=== PATIENT | male | born 1950 | race Caucasian/White ===

== ENCOUNTER 2022-12-12 14:41 | Outpatient (OUT) | payer MEDICARE, MEDICAID, SELFPAY ==
--- NOTE | 2022-12-12 15:54 | CA_ITS ---
Patient: MARILU TAYLOR Exam Date: 12/12/2022 : 1950 Gender:M Ordering : DR BLAS OSPINA M.D. Admission #: [id number] Family : Order #: [id number] CLICK HERE TO VIEW EXAM ECHOCARDIOGRAM REPORT PROCEDURE: CA ECHO DOPPLER COMPLETE INDICATIONS: CAD, HTN, S/P TAVR (2019) COMPARISON: None. DESCRIPTION: COMPLETE ECHOCARDIOGRAM Real-time transthoracic echocardiography with 2D, M-mode, spectral and color flow Doppler performed. QUALITY: Technical quality was good. LEFT VENTRICLE: Normal chamber size. Borderline left ventricular hypertrophy. Global left ventricular systolic function is normal. LV EF: Calculated left ventricular ejection fraction is 66%. DIASTOLIC: ATRIAL SEPTUM: LEFT ATRIUM: Moderate dilatation. RIGHT ATRIUM: Normal chamber size. RIGHT VENTRICLE: Normal chamber size. Normal right ventricular systolic function. TRICUSPID VALVE: Normal mobility and thickness. No stenosis with trivial regurgitation. Mild pulmonary hypertension. RVSP 36 mmHg MITRAL VALVE: Normal mobility and thickness. No evidence of mitral valve stenosis. There is no mitral annular calcification. Trivial mitral regurgitation. AORTIC VALVE: Bio-Prosthetic valve appears well seated in the aortic position with normal doppler flow. Mean systolic gradient is 8 mmHg. No aortic regurgitation. AORTIC ROOT: Normal diameter and appearance. PULMONIC VALVE: Normal thickness and mobility. Normal with No regurgitation. PERICARDIUM: No evidence of pericardial effusion. IVC: Collapses with inspirations. Normal size. PLEURA: CONCLUSION: 1. Normal ventricular systolic function. LVEF is 65 to 70%. 2. Bioprosthetic valve is well-seated in aortic position with normal Doppler flow. Mean gradient is 8 mmHg. No valvular or paravalvular regurgitation seen. 3. Mildly elevated right-sided pressures. 4. No pericardial effusion. Adult Echocardiography Procedure Report Left Ventricle LVEDD (3.7 - 5.6 cm): 4.78 cm LVESD (2.2 - 4.0 cm): 3.31 cm LVIVS thickness (0.6 - 1.2 cm): 1.14 cm LVPW thickness (0.5 - 1.0 cm): 0.95 cm e': 0.12 m/s E - e': 9.32 LVOT Max Gradient: 3.38 mm[Hg] LVOT Area (cm2): 0.92 m/s Peak Velocity (LVOT): 0.92 m/s Mean Velocity (LVOT): 0.67 m/s LVOT Diameter 2.10 cm Left Ventricular Ejection Fraction: 66.22 % Left Atrium LA Volume Index (2D A2C): 48.82 ml/m2 Left Atrium Systolic Dimension: 4.94 cm Mitral Valve MV E to A Ratio: 0.95 Mitral Valve A-Wave Peak Velocity: 1.20 m/s Mitral Valve E-Wave Peak Velocity: 1.15 m/s Right Ventricle RV Internal Diastolic Dimension: 3.69 cm Aorta AO Root Diam: 2.60 cm Ascending Ao Diam: 3.27 cm Aortic Valve AoV Area (Peak Abiel): 1.57 cm2, 1.57 cm2 AoV Area (VTI): 1.78 cm2, 1.78 cm2 Peak Velocity(Antegrade Flow): 2.03 m/s Peak Gradient(Antegrade Flow): 16.48 mm[Hg] Mean Velocity(Antegrade Flow): 1.32 m/s Mean Gradient(Antegrade Flow): 8.10 mm[Hg] Velocity Time Integral: 45.69 cm Tricuspid Valve Peak Velocity (Regurgitant Flow): 1.92 m/s, 2.86 m/s Pulmonic Valve Mean Gradient: 2.79 mm[Hg] Mean Velocity: 0.78 m/s Peak Velocity: 1.13 m/s, 1.24 m/s Peak Gradient: 5.08 mm[Hg], 6.18 mm[Hg] Right Atrium Right Atrium Systolic Pressure: 41.85 ml, 41.85 ml Dictated by: Blas Ospina M.D. on 12/12/2022 at 16:08 Approved by: Blas Ospina M.D. on 12/12/2022 at 16:10
== END 2022-12-12 14:42 | disposition home or self-care (01) ==
LOC: CARD 14:41
PROVIDERS: PCP Family Medicine; Visit Provider Internal Medicine Interventional Cardiology
DX: I25.118 Atherosclerotic heart disease of native coronary artery with other forms of angina pectoris (principal); I10 Essential (primary) hypertension; I35.0 Nonrheumatic aortic (valve) stenosis
CPT/HCPCS: 93306

== ENCOUNTER 2023-07-30 13:40 | Outpatient (OUT) | payer MEDICARE, MEDICAID, SELFPAY ==
--- NOTE | 2023-07-30 15:42 | CA_ITS ---
[facility] Test Date: 2023-07-30 Pat Name: MARILU TAYLOR Department: Room: - Gender: Male Social Science Analyst: Yessy Pace : 1950 Requested By: KAMILA WILSON Order Number: [id number] Reading MD: GUILLERMINA IVEY Interpretive Statements Monophasic doppler waveforms PVR waveforms w/ blunted right lower extremity waveform. 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 - right PT index is most likely an erroneous result - elevated left thigh index, which is consistent with calcified, noncompressible arterial bacon, which may underestimate the degree or arterial disease present - normal arterial evaluation of the left lower extremity without hemodynamic impairment of the left lower extremity at rest (left AJIT 1.28) - can't exclude small vessel disease of the left foot w/ decreased PT and TBI indices. Electronically Signed On 07-30-2023 22:32:11 EDT by GUILLERMINA IVEY
== END 2023-07-30 13:41 | disposition home or self-care (01) ==
LOC: CARD 13:40
PROVIDERS: PCP Family Medicine
DX: I73.9 Peripheral vascular disease, unspecified (principal)
CPT/HCPCS: 93924

== ENCOUNTER 2023-08-18 07:32 | Outpatient (OUT) | payer MEDICARE, MEDICAID, SELFPAY ==
--- OUTSIDE RECORDS SUMMARY | 2023-08-18 07:38 | XMS_ITS | CCD ---
Author Organization [facility] Care Team Providers Care Aed Trainer Name Role Phone ANA AYALA Admitting Unavailable SELF, REFERRED Referring Unavailable EBHEIMBRADLYIL Surgeon Unavailable ID Procedure Practitioner Unavailab le PITTS, MARY BETH Primary Care Unavailable MICHAEL BIGGS Attending Unavailable SWETHA WINTER Attending Unavailable SWETHA WINTER Admitting Unavailable HONG, MARY BETH Primary Care Unavailable HONG, MARY BETH Referring Unavailable HONG, MARY BETH Primary Care Unavailable HONG, MARY BETH Referring Unavailable KENDAL TORRES Attending Unavailable KENDAL TORRES Admitting Unavailable MASROOR, SANTANA Surgeon Unavailable MASROOR, SANTANA Admitting Unavailable ID Procedure Practitioner Unavailab le PITTS, MARY BETH Referring Unavailable REYNALDO COX Attending Unavailable HONG, MARY BETH Primary Care Unavailable REYNALDO COX Surgeon Unavailable ID Procedure Practitioner Unavailab le UNKNOWN, PROVIDER Surgeon Unavailable ID Procedure Practitioner Unavailab le Pitts , Mary Beth Primary Care Provider Hong DIAZ, Mary Beth Primary Care Provider [phone] Mary Beth Pitts MD Primary Care Provider Hong DIAZ, Mary Beth Primary Care Provider MARY BETH PITTS Primary Care Unavailable MARY BETH PITTS Referring Unavailable BLAS OSPINA Referring Unavailable MARY BETH PITTS Primary Care Unavailable MARY BETH PITTS Primary Care Unavailable ROBERTA VAZQUEZ Admitting Unavailable ROBERTA VAZQUEZ Attending Unavailable MARY BETH PITTS Primary Care Physician Diogenes, Dr. Jc Case Attending Skinny Pitts, Dr. Mary Beth Roman Primary Care Flavia Pitts, Dr. Mary Beth Roman Primary Care Flavia Shetty, Dr. Jc Case Attending Skinny Pitts, Dr. Mary Beth Roman Primary Care Flavia Pitts, Dr. Mary Beth Roman Primary Care MD Mary Beth Rogers Primary Care Provider [phone] MD Madeline Barry Admit Provider MD Neno Moreira Attending Provider YOCASTA Stahl Other Provider Unavailable DO Marlon Shetty Other Provider MD Christel Ramirez Other Provider MD Jc Sorto Other Provider MD Roman Sweeney Other Provider MD Jamari Moraes Other Provider JOSE ENRIQUE Andrews Other Provider MD Page Miller Other Provider MD Luis Key Nabrooke Other Provider MD Eduardo Nguyen Other Provider [facility] Linh Liriano Other Provider MD Debi Goins Other Provider [phone] MD Cristo Rivera Other Provider MD Kendal Moy Other Provider MD Trino Carlton Other Provider MD Mary Jane Morrell Jr Other Provider MD Karla Aranda Other Provider MD Seth Segundo Other Provider [phone] GALEN MEDINA Consulting Unavailable HONG, DR MARY BETH Daley Primary Care Unavailable ASIM, DR MAYFIELD Attending Unavailable ASIM, DR MAYFIELD Admitting Unavailable ASIM, DR MAYFIELD Consulting Unavailable TORITO SHEARER Consulting Unavailable DORCAS PATEL Consulting Unavailable NICOLE, DR LEMONS Admitting Unavailable HONG, DR MARY BETH Daley Primary Care Unavailable NICOLE, DR LEMONS Attending Unavailable NICOLE, DR LEMONS Consulting Unavailable HONG, DR MARY BETH Daley Primary Care Unavailable NICOLE, DR LEMONS Attending Unavailable NICOLE, DR LEMONS Consulting Unavailable NICOLE, DR LEMONS Admitting Unavailable ZACH, DR OLIVIA Frances Consulting Unavailable MD Mary Beth Pitts Primary Care Skinny Villagomez MD, Gerald Pérez Attending Unavailable MD Mary Beth Pitts Primary Care Skinny Villagomez MD, Gerald Pérez Attending Unavailable MD Mary Beth Pitts Consulting MD Mary Beth Hussein Primary Care Unamed Villagomez MD, Gerald Beto Attending Unavailable Hernando DIAZ, Gerald Pérez Attending Unavailable MD Mary Beth Pitts [facility] MD Mary Beth Hussein Consulting Skinny Villagomez MD, Gerald Pérez Attending Unavailable MD Mary Beth Pitts Primary Care MD Mary Beth Hussein Consulting MD Mary Beth Hussein Primary [facility] Skinny Villagomez MD, Gerald Pérez Attending Unavailable Hernando DIAZ, Gerald Pérez Attending Unavailable MD Mary Beth Pitts Primary Care Provider MD Mary Beth Pitts Attending Provider MD Blas Ospina V Other Provider [phone] Blas Ospina V Consulting Unavailable Mary Beth Pitts Admitting Unavailable Mary Beth Pitts Primary Care Unavailable Mary Beth Pitts Attending Unavailable Neno Moreira Attending Unavailable Saima Stahl Consulting Unavailable Mary Beth Pitts Primary Care Unavailable Madeline Barry Admitting Unavailable Marlon Shetty Consulting Unavailable Christel Ramirez Consulting Unavailable Jc Sorto Consulting Unavail able Roman Sweeney Consulting Unavailable Jamari Moraes Consulting Unavailab [facility] Consulting Unavailable Page Miller Consulting Unavailable Luis Key Consulting Unavailab Eduardo Johnson Consulting Unavailable Linh Quintanilla Consulting Unavailable Debi Goins Consulting Unavailable Cristo Rivera Consulting Unavailable Kendal Moy Consulting Unavailable Trino Carlton Consulting Unavailable Mary Jane Morrell Jr Consulting Unavailable Karla Aranda Consulting Unavailable Seth Segundo Consulting Unavailable Mary Beth Pitts Unavailable Mahendra Escalante Unavailable BLAS OSPINA Attending Unavailable BLAS OSPINA Attending Unavailable BLAS OSPINA Attending Unavailable Cristo RIVERA Attending Unavailable Cristo RIVERA Attending Unavailable Cristo RIVERA Attending Unavailable Cristo RIVERA Attending Unavailable Cristo RIVERA Attending Unavailable Lulu Coates Attending Unavailable Cristo RIVERA Attending Unavailable Cristo RIVERA Attending Unavailable KAMILA WILSON Attending Unavailable Allergies Allergy Classification Reported Allergen(s) Allergy Type Date of Onset Reaction(s) Facility Penicillins (antibiotic) (1 source) Penicillins Drug Allergy 10-30-19 15 Shortness Of Breath [facility] (5 sources) Erythromycin; Translations: [ERYTHROMYCIN BASE] Drug Allergy 11-12-19 14 Vomiting [facility] (7 sources) Penicillins; Translations: [PENICILLINS] Drug allergy (disorder) 12-03-19 14 Shortness Of Breath, Swelling [facility] (1 source) Sulfamethoxazole / Trimethoprim Drug Allergy 09-14-19 15 [facility] (1 source) Penicillins Propensity to adverse reactions to drug 10-30-19 15 Shortness Of Breath [facility] (13 sources) Erythromycin; Translations: [ERYTHROMYCIN] Drug Allergy 09-07-19 22 Unknown [facility] (19 sources) Penicillin; Translations: [penicillin] Drug Allergy Tightness in throat (finding), hives, Anaphylaxis (disorder) [facility] (9 sources) Sulfonamides (Antibiotic); Translations: [sulfa drugs] Drug allergy Vomitus (substance) [facility] (3 sources) Sulfonamides (Antibiotic); Translations: [Sulfa (Sulfonamide Antibiotics)] Allergy to substance 03-17-20 Unknown Reaction [facility] (1 source) Sulfonamides (Antibiotic) Drug allergy (disorder) 11-19-19 14 [facility] (1 source) MOST ANTIBIOTICS; Translations: [MOST ANTIBIOTICS] Propensity to adverse reactions to drug (disorder) [facility] (1 source) Erythromycin Drug Allergy 03-17-20 [facility] (1 source) Penicillins Drug allergy (disorder) 03-17-20 [facility] (8 sources) Sulfamethoxazole / Trimethoprim Drug Allergy Unknown [facility] Other (2 sources) Substance with penicillin structure and antibacterial mechanism of action (substance) Drug allergy 03-03-20 15 Unknown [facility] Other (2 sources) ANTIBIOTICS Propensity to adverse reactions 03-03-20 15 Unknown [facility] Other (2 sources) Allergies Reconciled Propensity to adverse reactions Unknown [facility] Other (2 sources) patient allergy list reviewed by nurse or physicia Propensity to adverse reactions 03-03-20 Comment:Done [facility] Other (1 source) levoFLOXacin; Translations: [LEVOFLOXACIN] Drug Allergy 04-14-20 [facility] (1 source) Sulfamethoxazole / Trimethoprim; Translations: [SULFAMETHOXAZOLE-T RIMETHOPRIM] Drug Allergy 04-14-20 [facility] (2 sources) Doxycycline; Translations: [doxycycline] Drug Allergy Blisters beneath skin (disorder) [facility] Rep[facility] Comment on above: Blisters on hands Medications Current Medications Medication Drug Class(es) Dates Sig (Normalized) Sig (Original) Accu-Chek Guide - (3 sources) Start: 11-22-2022 Accu-Chek Guide - 1 strip to check BS once daily for 30 days Nov, Active Accu-Chek Guide Me w/Device (3 sources) Accu-Chek Guide Me w/Device 1 meter to check BS once daily for 365 days Active amLODIPine 10 mg oral tablet (14 sources) Dihydropyridine Calcium Channel Rick Start: 06-05-2022 amLODIPine 10 mg Tab Refills(s) 0 Start Date: 06/05/22 Status: Ordered aspirin 81 mg oral tablet (11 sources) Platelet Aggregation Inhibitor, Nonsteroidal Anti-inflammatory Drug End: 09-06-2021 take 1 tablet by mouth once daily take 1 tablet by mouth every twe nty-four hours calcium chloride 0.0014 meq/ml / potassium chloride 0.004 meq/ml / sodium chloride 0.103 meq/ml / sodium lactate 0.028 meq/ml injectable solution (1 source) Start: 09-19-2021 lactated ringe rs infusion clopidogrel 75 mg oral tablet (8 sources) [id number] Platelet Inhibitor Start: 03-17-2022 take 75 mg by mouth once daily Clopidogrel Active 75 MG PO Daily March 16, 2022 11:00pm Start: 02-27-2022 clopidogrel 75 mg Tab Refills(s) 0 Start Date: 02/27/22 Status: Ordered take 1 tablet by [facility] once daily clopidogrel (PLAVIX) 75 MG tablet Take 75 mg by mouth daily 0 Active donepezil hydrochloride 5 mg oral tablet (10 sources) Start: 03-17-2022 Donepezil Acti ve MG TABLET March 16, 2022 11:00pm take 1 tablet by mouth every twe nty-four hours doxycycline hyclate 100 mg oral capsule (11 sources) Tetracycline-class Drug Start: 11-27-2022 End: 12-27-2022 take 1 capsule by mouth twice daily doxycycline hyclate 100 mg Cap 100 mg = 1 cap(s), Oral, BID, X 30 day(s), # 60 cap(s), Refills(s) 0, Pharmacy: [id number], 166, cm, 11/27/22 9:40:00 EDT, Height/Length Dosing, 71, kg, 11/27/22 9:40:00 EDT, Weight Dosing Start Date: 11/27/22 Stop Date: 12/27/22 Status: Ordered Start: 08-28-2022 take 1 capsule by [facility] every twenty-four hours Doxycycline Monohydrate 100 MG 1 capsule Orally Once a day for 10 days Aug, Active Start: 03-17-2022 End: 03-19-2022 Doxycycline Hyclate Disconti nued MG March 16, 2022 11:00pm March 19, 2022 12:21pm Start: 02-27-2022 End: 03-13-2022 take 1 mg by mouth twice daily doxycycline hyclate 100 mg Cap mg cap(s), Oral, BID, Refills(s) 0 Start Date: 02/27/22 Status: Ordered dutasteride 0.5 mg oral capsule (3 sources) 5-alpha Reductase Inhibitor Start: 11-27-2022 End: 06-19-2024 take 1 capsule by mouth once daily dutasteride 0.5 mg Cap 0.5 mg = 1 cap(s), Oral, Daily, X 30 day(s), # 30 cap(s), Refills(s) 11, Pharmacy: [id number], 166, cm, 06/25/23 8:52:00 EST, Height/Length Dosing, 82, kg, 06/25/23 8:52:00 EST, Weight Dosing Start Date: 06/25/23 Stop Date: 06/19/24 Status: Ordered 24 hr isosorbide mononitrate 30 mg extended release oral tablet (18 sources) Nitrate Vasodilator Start: 02-27-2022 isosorbide mononitrate 30 mg ER Tab Refills(s) 0 Start Date: 02/27/22 Status: Ordered take 1 tablet by vasiliy th every twenty-four hours Isosorbide Mononitrate ER 60 MG 1 tablet in the morning Orally Once a day Active levoFLOXacin 500 mg oral tablet (4 sources) Quinolone Antimicrobial Start: 06-13-2023 End: 06-27-2023 take 1 tablet by mouth every twenty-four hours Levaquin 500 mg Tab 500 mg = 1 tab(s), Oral, q24hr, X 14 day(s), # 14 tab(s), Refills(s) 0, Pharmacy: [id number], 166, cm, 05/28/23 8:49:00 EST, Height/Length Dosing, 71, kg, 05/28/23 8:49:00 EST, Weight Dosing Start Date: 06/13/23 Stop Date: 06/27/23 Status: Ordered Start: 02-26-2023 End: 03-19-2023 take 1 tablet by mouth once daily Levaquin 500 mg Tab 500 mg = 1 tab(s), Oral, Daily, X 3 week(s), # 21 tab(s), Refills(s) 0, Pharmacy: [id number], 166, cm, 02/26/23 9:10:00 EDT, Height/Length Dosing, 71, kg, 02/26/23 9:10:00 EDT, Weight Dosing Start Date: 02/26/23 Stop Date: 03/19/23 Status: Ordered Start: 03-19-2022 take 750 mg by mouth once daily Levofloxacin Active 750 MG PO Daily 11 17March 18, 2022 11:00pm lisinopril 20 mg oral tablet (20 sources) Angiotensin Converting Enzyme Inhibitor Start: 03-17-2022 take 15 mg by mouth once daily Lisinopril Active 15 MG PO Daily March 16, 2022 11:00pm Start: 02-27-2022 lisinopril 20 mg Tab Refills(s) 0 Start Date: 02/27/22 Status: Ordered take 0.5 tablet by [facility] once daily Lisinopril 40 MG 1/2 tablet Orally Once a day Active take 1 tablet by vasiliy every twenty-four hours take 1 tablet by vas[facility] once daily lisinopril (PRINIVIL;ZESTRIL) 2.5 MG tablet Take 2.5 mg by mouth daily 0 Active 24 hr metFORMIN hydrochloride 500 mg extended release oral tablet (20 sources) Biguanide Start: 03-17-2022 take 1000 mg by mouth twice daily Metformin Active 1000 MG PO Twice daily March 16, 2022 11:00pm Start: 02-27-2022 MetFORMIN (Eqv -Glucophage XR) 500 mg oral tablet, extended release Refills(s) 0 Start Date: 02/27/22 Status: Ordered take 2 tablets by mo [facility] twice daily metFORMIN HCl ER 500 MG TAKE 2 TABLETS BY MOUTH 2 TIMES A DAY Active take 1 tablet by vasiliy twice daily at mealtime metFORMIN (GLUCOPHAGE) 500 MG tablet Take 500 mg by mouth 2 times daily (with meals) 0 Active metoprolol tartrate 50 mg oral tablet (20 sources) beta-Adrenergic Rick Start: 03-17-2022 take 25 mg by mouth twice daily Metoprolol Tartrate Active 25 MG PO Twice daily March 16, 2022 11:00pm Start: 02-27-2022 Metoprolol tar trate 50 mg Tab Refills(s) 0 Start Date: 02/27/22 Status: Ordered take 1 tablet by vasiliy every twelve hours Metoprolol Tartrate 50 MG 1 tablet with food Orally Twice a day Active take 1 tablet by vasiliy twice daily metoprolol (TOPROL-XL) 50 MG XL tablet Take 50 mg by mouth 2 times daily 0 Active Nitro Sublingual 0.4 0.4mg (8 sources) Nitro Sublingual 0.4 0.4mg 1 Sublingual Every 5min x3 Active phenylephrine hydrochloride 25 mg/ml ophthalmic solution (1 source) alpha-1 Adrenergic Agonist Start: 09-19-2021 phenylephrine (MYDFRIN) 2.5 % ophthalmic solution 1 drop pregabalin 75 mg oral capsule (8 sources) Start: 10-12-2022 take 1 capsule by mouth twice daily Pregabalin 75 MG TAKE 1 CAPSULE BY MOUTH TWICE DAILY FOR 30 DAYS Oct, Active Start: 09-18-2022 take 1 capsule by [facility] every twelve hours Lyrica 75 MG 1 capsule Orally Twice a day for 30 days September, Active Start: 08-24-2022 take 1 capsule by [facility] every twelve hours Lyrica 50 MG 1 capsule Orally Twice a day for 30 days Aug, Active proparacaine hydrochloride 5 mg/ml ophthalmic solution (1 source) Local Anesthetic Start: 09-19-2021 proparacaine (ALCAINE) 0.5 % ophthalmic solution 1 drop rivaroxaban 20 mg oral tablet (20 sources) Factor Xa Inhibitor Start: 02-27-2022 Xarelto 20 mg oral tablet Refills(s) 0 Start Date: 02/27/22 Status: Ordered Xarelto 20 20 On ce PO Daily Active rivaroxaban (XAR ELTO) 20 MG TABS tablet Take 20 mg by mouth 0 Active simvastatin 40 mg oral tablet (20 sources) HMG-CoA Reductase Inhibitor Start: 02-27-2022 simvastatin 40 mg Ta b Refills(s) 0 Start Date: 02/27/22 Status: Ordered SITagliptin 100 mg oral tablet (4 sources) Dipeptidyl Peptidase 4 Inhibitor Start: 05-28-2023 Januvia 100 mg Tab Refills(s) 0 Start Date: 05/28/23 Status: Ordered Start: 11-28-2022 Januvia 100 mg Tab Refills(s) 0 Start Date: 02/26/23 Status: Ordered 5 ml sodium chloride 9 mg/ml injection (4 sources) Start: 09-19-2021 sodium chlorid e flush 0.9 % injection 5-40 mL Start: 09-19-2021 sodium chlorid e flush 0.9 % injection 5-40 mL Start: 09-19-2021 0.9 % sodium c hloride infusion spironolactone 25 mg oral tablet (10 sources) Aldosterone Antagonist Start: 02-26-2023 spironolactone 25 mg Tab Refills(s) 0 Start Date: 02/26/23 Status: Ordered take 0.5 tablet by m outh once in the morning Spironolactone 25 MG 1/2 tab Orally q am . Active tamsulosin hydrochloride 0.4 mg oral capsule (18 sources) alpha-Adrenergic Rick Start: 03-17-2022 Tamsu losin Active MG PO March 16, 2022 11:00pm Start: 02-27-2022 take 1 capsule by [facility] once daily Flomax 0.4 mg Cap 0.4 mg = 1 cap(s), Oral, Daily, # 30 cap(s), Refills(s) 6, Pharmacy: [id number], 168, cm, 02/27/22 9:27:00 EDT, Height/Length Dosing, 73.8, kg, 02/27/22 9:27:00 EDT, Weight Dosing Start Date: 02/27/22 Status: Ordered tetracaine hydrochloride 5 mg/ml ophthalmic solution (1 source) Zaria Local Anesthetic Start: 09-19-2021 tetraca ine (TETRAVISC) 0.5 % ophthalmic solution 1 drop tropicamide 10 mg/ml ophthalmic solution (1 source) Anticholinergic Start: 09-19-2021 tropicamide (MYDRIACYL) 1 % ophthalmic solution 1 drop Completed/Discontinued Medications Medication Drug Class(es) Dates Sig (Normalized) Sig (Original) ciprofloxacin 500 mg oral tablet (3 sources) Quinolone Antimicrobial Start: 06-05-2022 take 1 tablet by mouth once daily Cipro 500 mg Tab 500 mg = 1 tab(s), Oral, Daily, Take 1 tablet the day before the procedure and 1 tablet after the procedure, # 2 tab(s), Refills(s) 0, Pharmacy: [id number], 168, cm, 06/05/22 9:33:00 EST, Height/Length Dosing, 73, kg, 06/05/22 9:33:00 E... Start Date: 06/05/22 Status: Ordered Problems Active Problems Problem Classification Problem Date Documented Date Episodic/Chronic Acute myocardial infarction (11 sources) Myocardial infarction; Translations: [Non-ST elevation (NSTEMI) myocardial infarction] Onset: 03-17-2022 03-17-2022 Chronic Biliary tract disease (1 source) Calculus of gallbladder without cholecystitis without obstruction; Translations: [CALCU GB W/O CHOLECYST W/O OBST] Onset: 03-08-2022 Episodic Chronic obstructive pulmonary disease and bronchiectasis (2 sources) Chronic obstructive lung disease; Translations: [Chronic obstructive pulmonary disease, unspecified] Onset: 03-03-2015 Chronic Chronic ulcer of skin (6 sources) Ulcer of toe; Translations: [Non-pressure chronic ulcer of other part of right foot limited to breakdown of skin] Chronic Complication of device; implant or graft (2 sources) Arteriosclerosis of coronary artery bypass graft; Translations: [Coronary atherosclerosis of artery bypass graft] Onset: 03-03-2015 Chronic Coronary atherosclerosis and other heart disease (12 sources) Coronary arteriosclerosis; Translations: [Angina pectoris] Onset: 05-11-2017 06-01-2022 Chronic Delirium, dementia, and amnestic and other cognitive disorders (2 sources) Dementia; Translations: [Unspecified dementia without behavioral disturbance] Chronic Diabetes mellitus with complications (20 sources) Hyperglycemia due to type 2 diabetes mellitus; Translations: [Type 2 diabetes mellitus with hyperglycemia] Chronic Diabetes mellitus without complication (10 sources) Diabetes mellitus; Translations: [Type 2 diabetes mellitus without complication] Onset: 03-03-2015 02-27-2022 Chronic Diseases of white blood cells (10 sources) Leukocytosis; Translations: [Elevated white blood cell count, unspecified] Chronic Disorders of lipid metabolism (20 sources) Hyperlipidemia; Translations: [Hyperlipidemia, unspecified] Onset: 12-01-2021 02-27-2022 Chronic Essential hypertension (20 sources) Hypertensive disorder; Translations: [Essential hypertension] Onset: 03-03-2015 02-27-2022 Chronic Fever of unknown origin (3 sources) Fever, unspecified; Translations: [FEVER UNSPECIFIED] Onset: 03-16-2022 Episodic Fracture of lower limb (8 sources) Closed fracture of upper end of tibia; Translations: [Displaced fracture of left tibial spine, initial encounter for closed fracture] Episodic Genitourinary symptoms and ill-defined conditions (1 source) Presence of urogenital implants; Translations: [PRESENCE OF UROGENITAL IMPLANTS] Onset: 03-20-2022 Chronic Genitourinary symptoms and ill-defined conditions (13 sources) Calvin hematuria; Translations: [Blood in urine] Onset: 03-03-2022 02-27-2022 Episodic Headache; including migraine (8 sources) Headache 02-27-2022 Episodic Heart valve disorders (14 sources) Aortic valve disorder; Translations: [Nonrheumatic aortic (valve) stenosis] Onset: 05-11-2017 Chronic Hyperplasia of prostate (14 sources) Benign prostatic hypertrophy with outflow obstruction; Translations: [Benign prostatic hyperplasia with lower urinary tract symptoms] Onset: 02-27-2022 Chronic Inflammatory conditions of male genital organs (2 sources) Chronic prostatitis; Translations: [Chronic prostatitis] Onset: 06-25-2023 Chronic Inflammatory conditions of male genital organs (5 sources) Prostatitis; Translations: [Inflammatory disease of prostate, unspecified] Onset: 11-27-2022 Episodic Other aftercare (1 source) 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; Translations: [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] Onset: 03-20-2022 Episodic Other aftercare (1 source) Other [facility] (current) drug therapy; Translations: [OTH DRAWER HARDWARE WORKER CURRENT DRUG THERAPY] Onset: 03-20-2022 Episodic Other aftercare (1 source) senior care (current) use of oral hypoglycemic drugs; Translations: [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 HARDWARE 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 USE ORAL HYPOGLYCEMIC DX] Onset: 03-20-2022 Episodic Other aftercare (4 sources) Long-term current use of anticoagulant; Translations: [senior care (current) use of 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] Onset: 06-05-2022 Episodic Other and ill-defined heart disease (8 sources) Heart disease 02-27-2022 Chronic Other circulatory disease (2 sources) Low blood pressure; Translations: [Hypotension, unspecified] 03-17-2022 Episodic Other connective tissue disease (1 source) Pain in right lower limb; Translations: [Pain in right leg] Onset: 07-11-2022 Episodic Other connective tissue disease (1 source) Pain in right leg Episodic Other diseases of bladder and urethra (11 sources) Male urethral stricture; Translations: [Unspecified urethral stricture, male, unspecified site] Onset: 03-14-2022 Episodic Other ear and sense organ disorders (8 sources) Hearing loss 02-27-2022 Chronic Other injuries and conditions due to external causes (2 sources) History of fall; Translations: [History of falling] Episodic Other male genital disorders (2 sources) Male erectile dysfunction, unspecified; Translations: [Erectile dysfunction] Onset: 06-25-2023 Chronic Other male genital disorders (1 source) Hydrocele of testis; Translations: [Hydrocele, unspecified] Onset: 06-25-2023 Episodic Other male genital disorders (1 source) Disorder of male genital organ 06-25-2023 Episodic Other non-traumatic joint disorders (1 source) Pain in right hip Episodic Other nutritional; endocrine; and metabolic disorders (12 sources) Body mass index 25-29 - overweight; Translations: [Body mass index (BMI) 28.0-28.9, adult] Onset: 05-11-2017 Episodic Peripheral and visceral atherosclerosis (2 sources) Intermittent claudication; Translations: [Peripheral vascular disease, unspecified] Chronic Residual codes; unclassified (2 sources) Urinary catheter in situ; Translations: [Presence of other specified devices] 03-18-2022 Episodic Unclassified (1 source) CONTACT W/AND (SUSP) EXPOS COVID-19; Translations: [CONTACT W/AND (SUSP) EXPOS COVID-19] Onset: 03-20-2022 Unclassified (6 sources) Drug therapy finding 06-05-2022 Past or Other Problems Problem Classification Problem Date Documented Da te Episodic/Chronic Bacterial infection; unspecified site (4 sources) Bacteremia caused by Gram-negative bacteria; Translations: [Bacteremia] Onset: 03-17-2022 03-18-2022 Episodic Cataract (3 sources) 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; Translations: [Combined forms of age-related cataract, left eye] Onset: 09-18-2021 Resolved: 09-19-2021 Chronic Coronary atherosclerosis and other heart disease (8 sources) H/O cardiac surgery; 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] Onset: 03-17-2022 03-17-2022 Episodic Nonspecific chest pain (2 sources) Chest pain; Translations: [Other chest pain] Onset: 03-03-2016 Episodic Other circulatory disease (2 sources) Hypotension, unspecified; Translations: [Hypotension, unspecified] Onset: 03-17-2022 03-19-2022 Episodic Other skin disorders (2 sources) Localized superficial swelling of skin; Translations: [Localized superficial swelling, mass, or lump] Onset: 06-17-2018 Episodic Phlebitis; thrombophlebitis and thromboembolism (4 sources) Acute deep venous thrombosis of left upper extremity; Translations: [Acute embolism and thrombosis of deep veins of left upper extremity] Onset: 06-17-2018 Episodic Residual codes; unclassified (2 sources) Presence of other specified devices; Translations: [Other postprocedural status] Onset: 03-17-2022 03-19-2022 Episodic Residual codes; unclassified (2 sources) Other specified postprocedural states; Translations: [Personal history of surgery to heart and great vessels, presenting hazards to health] Onset: 03-17-2022 03-19-2022 Episodic Septicemia (except in labor) (5 sources) Sepsis; Translations: [Sepsis, unspecified organism] Onset: 03-17-2022 03-18-2022 Episodic Urinary tract infections (9 sources) Acute urinary tract infection; Translations: [Urinary tract infection, site not specified] Onset: 03-17-2022 03-18-2022 Episodic Results Test Name Value Interpretation Reference Range Facility Ambulatory Visit Summaryon 0 06-25-2023 Ambulatory Visit Summary BRANDON SR MARILU :1950 Visit Date:06/25/2023 Ambulatory Visit Instructions Your Diagnosis Hydrocele ED (erectile dysfunction) Chronic prostatitis BPH with obstruction/lower urinary tract symptoms Urethral stricture in male Anticoagulated Your Care Team Attending Physician - NICOLE DIAZ, Cristo Frances Primary Care Physician - MARY BETH PITTS MD This Is Your Medications List dutasteride (dutasteride 0.5 mg Cap) Contact prescribing physician if questions or concerns amlodipine (amLODIPine 10 mg Tab) isosorbide mononitrate (isosorbide mononitrate 30 mg ER Tab) levofloxacin (Levaquin 500 mg Tab) lisinopril (lisinopril 20 mg Tab) metformin (MetFORMIN (Eqv-Glucophage XR) 500 mg oral tablet, extended release) metoprolol (Metoprolol tartrate 50 mg Tab) rivaroxaban (Xarelto 20 mg oral tablet) simvastatin (simvastatin 40 mg Tab) sitagliptin (Januvia 100 mg Tab) spironolactone (spironolactone 25 mg Tab) tamsulosin (Flomax 0.4 mg Cap) Procedures Performed Cystoscopy (07/18/2022), Cystourethroscopy with dilation of urethral stricture (03/14/2022), AVR - Aortic valve replacement, CABG x 4 - Coronary artery bypass grafts x 4, Cataract. Discharge Vitals Heart Rate (Peripheral) 74 Respiratory Rate 16 Blood Pressure 108/64 Height 166 cm Height 65 in Weight 82 kg Weight 180.4 lb BMI 29.76 What to do next Scheduled Follow-Up Appointments Sunday 8:45 AM EDT With: NICOLE DIAZ, Cristo Frances Where: [facility] Patient Educationon 06-25-19 24 Patient Education Urology Testicular Self-Exam A self-examination of your testicles (testicular self-exam) involves looking at and feeling your testicles for abnormal lumps or swelling. Several things can cause swelling, lumps, or pain in your testicles. Some of these causes are: ? Injuries. ? Inflammation. ? Infection. ? Buildup of fluids around the testicle (hydrocele). ? Twisted testicles (testicular torsion). ? Testicular cancer. You may be at risk for testicular cancer if you have: ? An undescended testicle (cryptorchidism). ? A history of previous testicular cancer. ? A family history of testicular cancer. General tips and recommendations ? The testicles are easiest to examine after a warm bath or shower. They are more difficult to examine when you are cold because the muscles attached to the testicles retract and pull them up higher or into the abdomen. ? A normal testicle is egg-shaped and feels firm. It is smooth and not tender. ? It is normal to feel a firm, spaghetti-like cord at the back of your testicle. This is the spermatic cord. How to do a testicular self-exam 1. Stand and hold your penis away from your body. 2. Look at each testicle to check for changes in appearance, such as swelling or changes in size or shape. 3. Roll each testicle between your thumb and forefinger, feeling the entire testicle. Feel for: ? Lumps. ? Swelling. ? Discomfort. 4. Check the groin area between your abdomen and upper thighs on both sides of your body. Look and feel for any swelling or bumps that are tender. These could be enlarged lymph nodes. Contact a health care provider if: ? You find any bumps or lumps, such as a small, hard, pea-sized lump. ? You find swelling, pain, or soreness. ? You see or feel any other changes in your testicles. Summary ? A self-examination of your testicles (testicular self-exam) involves looking at and feeling your testicles for any changes. ? Check each of your testicles for lumps, swelling, or discomfort. These changes can be caused by many things. ? Check for swelling or tender bumps in your groin area between your lower abdomen and upper thighs. This information is not intended to replace advice given to you by your health care provider. Make sure you discuss any questions you have with your health care provider. Document Revised: 04/05/2020 Document Reviewed: 04/05/2020 [employer] Patient Education ? 2022 [employer] [facility] Urology Office/Clinic Noteon 06-25-2023 Urology Office/Clinic Note Chief Complaint Testicular Pain HPI Staff Here today due to swollen testicles. Pt called 06/12/23 c/o of swollen testicles, R>L. No pain w/ swelling. Pt was schedule for f/u with Lulu Coates NP 06/13/23 but pt cx'd due to fog. PRW recommended pt to start Levaquin 50mmg po qd x14 days. Previous dx: hx of prostatitis, BPH with obstruction/LUTS, urethral stricture, anticoagulated. S/p Cysto/UD 03/14/22. Has 2-3 pills left of Levaquin. *Tamsulosin & Dutasteride therapy (needs refill of Dutasteride) Pt denies having symptoms prior to starting Levaquin. Rt Testicle is still swollen. Noticed while sitting to void. Denies pain to testicle. Denies pain and burning while voiding. Denies all urinary symptoms. History of Present Illness Tests reviewed: reviewed UA I have reviewed the previous health record information and history for this patient from Dr. Rivera. I have reviewed and verified the staff HPI to be accurate for this encounter. Review of Systems PHQ Score Initial Depression Screen Score: 0 SCORE ROS - Provider Constitutional: denies weight loss, denies hot flashes. Eyes: denies eye problems. Gastrointestinal: denies nausea, denies vomiting. Cardiovascular: denies chest pain or angina. Integumentary: no dryness Musculoskeletal: denies musculoskeletal symptoms. ENMT: denies otolaryngeal symptoms. Respiratory: no shortness of breath. Heme/Lymph: denies easy bleeding tendency, denies easy bruising tendency. Psychiatric: no confusion, no anxiety. Genitourinary: See HPI. Physical Exam Vitals & Measurements HR: 74(Peripheral) RR: 16 BP: 108/64 HT: 65 in HT: 166 cm WT: 82 kg WT: 180.4 lb BMI: 29.76 General Appearance: alert, no distress, well nourished, well developed male. Genitourinary: normal scrotum, abnormal testes - bilateral hydroceles R>>L, normal urethra, normal epididymis, normal vas deferens/spermatic cord. Flank Pain: none. Bladder: nonpalpable. Assessment/Plan 1. Hydrocele (N43.3: Hydrocele, unspecified) Pt called 06/12/23 c/o of swollen testicles, R>L. No pain w/ swelling. Pt was started on Levaquin 50mg po qd x14 days on 06/13/23, has 2 days left of abx. Still has swelling of R testicle but denies any pain. UA today negative for blood and infection. Denies having any sxs. PE: bilateral hydroceles, R>>L. Discussed hydrocele options. There is no absolute indication that he needs this repaired. As the fluid collection increases in size and becomes more symptomatic, he may consider repair. This involves a scrotal incision, removing the sac of fluid, and, perhaps, removing part or all of the sac itself. There is a 10-15% chance of recurrence of this scrotal fluid collection, which may require another procedure in the future. 2. ED (erectile dysfunction) (N52.9: Male erectile dysfunction, unspecified) Reports he is not able to achieve a full erection. Admits he does have retrograde ejaculation, advised pt this is a SE of Tamsulosin. Has nitro tablets but has not taken any. Discussed nitro products are contraindicated with ED medications so pt is not a candidate. Discussed alternative option would be CLAUDIA or ICI. Pt prefers to not proceed with treatment at this time. 3. Chronic prostatitis (N41.1: Chronic prostatitis) Was originally tx'd 11/27/22 with doxycycline 100mg bid x1 month but did not complete this course due to breaking out in the sun. Pt was then given Levaquin 500mg qd x3wks starting on 02/26/23. No recurrence of prostate infection since February. 4. BPH with obstruction/lower urinary tract symptoms (N40.1: Benign prostatic hyperplasia with lower urinary tract symptoms) PSA 04/11/17 - 1.78 12/01/21 - 1.23 PVR (cc): 11/27/22 - 16 05/28/23 - 150 06/25/23 - 57 Taking Tamsulosin 0.8mg qAM and Dutasteride 0.5mg qPM. [1] Discussed purpose of Dutasteride is to shrink prostate to help with urinary flow. Reports he has a good stream. States he has to void each time he stands up, q1hr. Feels this is due to increased fluid intake. -Cont Tamsulosin and Dutasteride wo changes 5. Urethral stricture in male (N35.919: Unspecified urethral stricture, male, unspecified site) S/p Cysto/UD done 03/14/22 (dilated to 28 Fr) and 07/18/22 (dilated to 16-30 Fr). [2] 6. 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 Had aortic valve replacement. Elevated risk for periop complications in the future. [3] Follow-up With When Contact Information Cristo RIVERA MD, URL [facility] [address], [place] [address] [phone] Additional Instructions: has f/u scheduled 11/19/23 Patient Education Testicular Self-Exam Opal Null, personally scribed for Dr. Rivera on 06/25/2023 10:02:39. . Documentation recorded by the ayaanibOpal daley, accurately reflects the services(s) I performed and decisions made by me. Authenticated by Dr. Rivera on 06/25/2023 10:05:22. Probl (more content not included)... Normal [facility] Comment on above: Result Comment: Elec tronically Signed By: Cristo RIVERA MD\.br\Date and Time Signed: 06/25/23 10:05 EST\.br\Electronically Co-Signed By: Opal Kessler\.dee\Date and Time Co-Signed: 06/25/23 10:03 EST Office Visiton 06-15-2023 Follow-up visit [id number] Bora Dan 1950 M Date Provider Department Center 06/15/2023 BLAS MCDANIEL RAVI [facility] Family History Problem Relation Age of Onset Diabetes Mother Heart attack Mother Diabetes Father Heart attack Father Breast cancer Sister Colon cancer Brother Cervical cancer Child Family Status - Relation Status Age at Mother Father Sister Brother Child Alive Level of Service:[id number] ID OFFICE/OUTPATIENT ESTABLISHED LOW MDM 20 MIN [facility] Ambulatory Visit Summaryon 0 05-28-2023 Ambulatory Visit Summary MARILU DAN SR :1950 Visit Date:05/28/2023 Ambulatory Visit Instructions Your Diagnosis History of prostatitis BPH with obstruction/lower urinary tract symptoms Urethral stricture in male Anticoagulated Your Care Team Attending Physician - NICOLE DIAZ, Cristo Frances Primary Care Physician - MARY BETH PITTS MD This Is Your Medications List dutasteride (dutasteride 0.5 mg Cap) tamsulosin (Flomax 0.4 mg Cap) Contact prescribing physician if questions or concerns amlodipine (amLODIPine 10 mg Tab) isosorbide mononitrate (isosorbide mononitrate 30 mg ER Tab) lisinopril (lisinopril 20 mg Tab) metformin (MetFORMIN (Eqv-Glucophage XR) 500 mg oral tablet, extended release) metoprolol (Metoprolol tartrate 50 mg Tab) pregabalin (pregabalin 75 mg Cap) rivaroxaban (Xarelto 20 mg oral tablet) rivaroxaban (Xarelto 20 mg oral tablet) simvastatin (simvastatin 40 mg Tab) sitagliptin (Januvia 100 mg Tab) sitagliptin (Januvia 100 mg Tab) spironolactone (spironolactone 25 mg Tab) Procedures Performed Cystoscopy (07/18/2022), Cystourethroscopy with dilation of urethral stricture (03/14/2022), AVR - Aortic valve replacement, CABG x 4 - Coronary artery bypass grafts x 4, Cataract. Discharge Vitals Blood Pressure 118/78 Height 166 cm Height 65 in Weight 71 kg Weight 156.2 lb BMI 25.77 What to do next Scheduled Follow-Up Appointments Sunday 8:45 AM EDT With: NICOLE DIAZ, Cristo Frances Where: [facility] Patient Educationon 05-28-19 24 Patient Education Urology Benign Prostatic Hyperplasia Benign prostatic hyperplasia (BPH) is an enlarged prostate gland that is caused by the normal aging process. The prostate may get bigger as a man gets older. The condition is not caused by cancer. The prostate is a walnut-sized gland that is involved in the production of semen. It is located in front of the rectum and below the bladder. The bladder stores urine. The urethra carries stored urine out of the body. An enlarged prostate can press on the urethra. This can make it harder to pass urine. The buildup of urine in the bladder can cause infection. Back pressure and infection may progress to bladder damage and kidney (renal) failure. What are the causes? This condition is part of the normal aging process. However, not all men develop problems from this condition. If the prostate enlarges away from the urethra, urine flow will not be blocked. If it enlarges toward the urethra and compresses it, there will be problems passing urine. What increases the risk? This condition is more likely to develop in men older than 50 years. What are the signs or symptoms? Symptoms of this condition include: ? Getting up often during the night to urinate. ? Needing to urinate frequently during the day. ? Difficulty starting urine flow. ? Decrease in size and strength of your urine stream. ? Leaking (dribbling) after urinating. ? Inability to pass urine. This needs immediate treatment. ? Inability to completely empty your bladder. ? Pain when you pass urine. This is more common if there is also an infection. ? Urinary tract infection (UTI). How is this diagnosed? This condition is diagnosed based on your medical history, a physical exam, and your symptoms. Tests will also be done, such as: ? A post-void bladder scan. This measures any amount of urine that may remain in your bladder after you finish urinating. ? A digital rectal exam. In a rectal exam, your health care provider checks your prostate by putting a lubricated, gloved finger into your rectum to feel the back of your prostate gland. This exam detects the size of your gland and any abnormal lumps or growths. ? An exam of your urine (urinalysis). ? A prostate specific antigen (PSA) screening. This is a blood test used to screen for prostate cancer. ? An ultrasound. This test uses sound waves to electronically produce a picture of your prostate gland. Your health care provider may refer you to a specialist in kidney and prostate diseases (urologist). How is this treated? Once symptoms begin, your health care provider will monitor your condition (active surveillance or watchful waiting). Treatment for this condition will depend on the severity of your condition. Treatment may include: ? Observation and yearly exams. This may be the only treatment needed if your condition and symptoms are mild. ? Medicines to relieve your symptoms, including: ? Medicines to shrink the prostate. ? Medicines to relax the muscle of the prostate. ? Surgery in severe cases. Surgery may include: ? Prostatectomy. In this procedure, the prostate tissue is removed completely through an open incision or with a laparoscope or robotics. ? Transurethral resection of the prostate (TURP). In this procedure, a tool is inserted through the opening at the tip of the penis (urethra). It is used to cut away tissue of the inner core of the prostate. The pieces are removed through the same opening of the penis. This removes the blockage. ? Transurethral incision (TUIP). In this procedure, small cuts are made in the prostate. This lessens the prostate's pressure on the urethra. ? Transurethral microwave thermotherapy (TUMT). This procedure uses microwaves to create heat. The heat destroys and removes a small amount of prostate tissue. ? Transurethral needle ablation (TUNA). This procedure uses radio frequencies to destroy and remove a small amount of prostate tissue. ? Interstitial laser coagulation (ILC). This procedure uses a laser to destroy and remove a small amount of prostate tissue. ? Transurethral electrovaporization (TUVP). This procedure uses electrodes to destroy and remove a small amount of prostate tissue. ? Prostatic urethral lift. This procedure inserts an implant to push the lobes of the prostate away from the urethra. Follow these instructions at home: ? Take [id number] and prescription medicines only as told by your health care provider. ? Monitor your symptoms for any changes. Contact your health care provider with any changes. ? Avoid drinking large amounts of liquid before going to bed or out in public. ? Avoid or reduce how much caffeine or alcohol you drink. ? Give yourself time when you urinate. ? Keep all follow-up visits. This is important. Contact a health care provider if: ? You have unexplained back pain. ? Your symptoms do not get better with treatment. ? You develop side effects from the medicine (more content not included)... Normal [facility] Urology Office/Clinic Noteon 05-28-2023 Urology Office/Clinic Note Chief Complaint 3 month F/U with PVR HPI Staff 73 yo male here for 3 month f/u w/ PVR. Previous Dx: urethral stricture in male, BPH with obstruction, prostatitis, anticoagulated. S/p Cysto/UD 03/14/22. Taking Tamsulosin 0.8mg qAM and Dutasteride 0.5mg qd.- He is still taken no concerns Tx'd at last OV for prostatitis w/ Levaquin x3wks. did take this no concerns or issues with this PVR 150 Dysuria: _denies Incomplete bladder emptying: denies Hematuria: denies visible blood Frequency: every hour Urgency: denies Nocturia: 2x nightly Stream: denies hesitation, normal stream Leaking: denies Post void dripping: yes Wearing pads/ Depends: denies Urge incontinence: denies Stress incontinence: denies Incontinence without Sensory Awareness: denies Abdominal pain: denies Flank pain: denies Sexual complaints: denies History of Present Illness Tests reviewed: reviewed UA I have reviewed the previous health record information and history for this patient from Dr. Rivera. I have reviewed and verified the staff HPI to be accurate for this encounter. Review of Systems PHQ Score Initial Depression Screen Score: 0 SCORE ROS - Provider Constitutional: denies weight loss, denies hot flashes. Eyes: denies eye problems. Gastrointestinal: denies nausea, denies vomiting. Cardiovascular: denies chest pain or angina. Integumentary: no dryness Musculoskeletal: denies musculoskeletal symptoms. ENMT: denies otolaryngeal symptoms. Respiratory: no shortness of breath. Heme/Lymph: denies easy bleeding tendency, denies easy bruising tendency. Psychiatric: no confusion, no anxiety. Genitourinary: See HPI. Physical Exam Vitals & Measurements BP: 118/78 HT: 65 in HT: 166 cm WT: 71 kg WT: 156.2 lb BMI: 25.77 General Appearance: alert, no distress, well nourished, well developed male. Genitourinary: normal scrotum, normal testes, normal urethra, normal epididymis, normal vas deferens/spermatic cord. Flank Pain: none. Bladder: nonpalpable. Assessment/Plan Pt here today with his . 1. History of prostatitis (Z87.438: Personal history of other diseases of male genital organs) Was originally tx'd 11/27/22 with doxycycline 100mg bid x1 month but did not complete this course due to breaking out in the sun. Pt was then given Levaquin 500mg qd x3wks at last OV 02/26/23. PVR (cc): 11/27/22 - 16 05/28/23 - 150 UA today negative for blood and infection. Denies any pain/burning with urination. Advised pt he did not empty completely today which can contribute to infections. Unsure if he feels he empties. Recommended pt to take time with his voids to ensure he empties completely. -Start double void maneuvers -Cont sx monitoring 2. BPH with obstruction/lower urinary tract symptoms (N40.1: Benign prostatic hyperplasia with lower urinary tract symptoms) PSA 04/11/17 - 1.78 12/01/21 - 1.23. No other PSAs on record. Taking Tamsulosin 0.8mg qAM and Dutasteride 0.5mg qPM. Denies SEs. No longer wetting the bed. States he feels taking Tamsulosin in the mornings vs at night has improved his nocturia. Has a good stream. -Cont Tamsulosin and Dutasteride wo changes 3. Urethral stricture in male (N35.919: Unspecified urethral stricture, male, unspecified site) S/p Cysto/UD done 03/14/22 (dilated to 28 Fr) and 07/18/22 (dilated to 16-30 Fr). Denies straining to urinate. Pt to call when he feels a repeat UD is needed. 4. 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 Had aortic valve replacement. Elevated risk for periop complications in the future. Follow-up With When Contact Information NICOLE DIAZ, GLORIA Gupta In 6 months [facility] [address], [place] [address]- [phone] Additional Instructions: Patient Education Benign Prostatic Hyperplasia I, Opal Kessler, personally scribed for Dr. Rivera on 05/28/2023 09:31:14. . Documentation recorded by the scribe, Opal Kessler, accurately reflects the services(s) I performed and decisions made by me. Authenticated by Dr. Rivera on 05/28/2023 09:34:45. Problem List/Past Medical History Ongoing Anticoagulated BPH with obstruction/lower urinary tract symptoms CAD (coronary artery disease) Diabetes Gross hematuria Hard of hearing Headache Heart disease History of prostatitis Hyperlipidemia Hypertension Myocardial infarction Prostatitis Urethral stricture in male Historical No qualifying data Procedure/Surgical History Cystoscopy (07/18/2022), Cystourethroscopy with dilation of urethral stricture (03/14/2022), AVR - Aortic valve replacement, CABG x 4 - Coronary artery bypass grafts x 4, Cataract. Medications amLODIPine 10 mg Tab dutasteride 0.5 mg Cap, 0.5 mg= 1 cap(s), Oral, Daily, 11 refills Flomax 0.4 mg Cap, 0.4 mg= 1 cap(s), Oral, Daily, 6 refills isosorbide mononitrate 30 mg ER Tab Januvia 100 mg Tab Ja (more content not included)... Normal [facility] Comment on above: Result Comment: Elec tronically Signed By: Cristo RIVERA MD\.br\Date and Time Signed: 05/28/23 09:34 EST\.br\Electronically Co-Signed By: Oapl Kessler\.br\Date and Time Co-Signed: 05/28/23 09:31 EST Ambulatory Visit Summaryon 1 Ambulatory Visit Summary BRANDON STARR MARILU :1950 Visit Date:02/26/2023 Ambulatory Visit Instructions Your Diagnosis Urethral stricture in male BPH with obstruction/lower urinary tract symptoms Prostatitis Anticoagulated Tests Performed Urnls Dip Stick Auto w/o Microscopy POC [id number] Your Care Team Attending Physician - Cristo RIVERA MD Primary Care Physician - MARY BETH PITTS MD This Is Your Medications List dutasteride (dutasteride 0.5 mg Cap) levofloxacin (Levaquin 500 mg Tab) tamsulosin (Flomax 0.4 mg Cap) Contact prescribing physician if questions or concerns amlodipine (amLODIPine 10 mg Tab) isosorbide mononitrate (isosorbide mononitrate 30 mg ER Tab) lisinopril (lisinopril 20 mg Tab) metformin (MetFORMIN (Eqv-Glucophage XR) 500 mg oral tablet, extended release) metoprolol (Metoprolol tartrate 50 mg Tab) pregabalin (pregabalin 75 mg Cap) rivaroxaban (Xarelto 20 mg oral tablet) simvastatin (simvastatin 40 mg Tab) sitagliptin (Januvia 100 mg Tab) spironolactone (spironolactone 25 mg Tab) Procedures Performed Cystoscopy (07/18/2022), Cystourethroscopy with dilation of urethral stricture (03/14/2022), AVR - Aortic valve replacement, CABG x 4 - Coronary artery bypass grafts x 4, Cataract. Discharge Vitals Heart Rate (Peripheral) 69 Respiratory Rate 16 Blood Pressure 118/60 Height 166 cm Height 65 in Weight 71 kg Weight 156.2 lb BMI 25.77 What to do next Scheduled Follow-Up Appointments Sunday 8:45 AM EST With: NICOLE DIAZ, Cristo Frances Where: [facility] Center Patient Educationon 02-27-20 Patient Education Urology Benign Prostatic Hyperplasia Benign prostatic hyperplasia (BPH) is an enlarged prostate gland that is caused by the normal aging process. The prostate may get bigger as a man gets older. The condition is not caused by cancer. The prostate is a walnut-sized gland that is involved in the production of semen. It is located in front of the rectum and below the bladder. The bladder stores urine. The urethra carries stored urine out of the body. An enlarged prostate can press on the urethra. This can make it harder to pass urine. The buildup of urine in the bladder can cause infection. Back pressure and infection may progress to bladder damage and kidney (renal) failure. What are the causes? This condition is part of the normal aging process. However, not all men develop problems from this condition. If the prostate enlarges away from the urethra, urine flow will not be blocked. If it enlarges toward the urethra and compresses it, there will be problems passing urine. What increases the risk? This condition is more likely to develop in men older than 50 years. What are the signs or symptoms? Symptoms of this condition include: ? Getting up often during the night to urinate. ? Needing to urinate frequently during the day. ? Difficulty starting urine flow. ? Decrease in size and strength of your urine stream. ? Leaking (dribbling) after urinating. ? Inability to pass urine. This needs immediate treatment. ? Inability to completely empty your bladder. ? Pain when you pass urine. This is more common if there is also an infection. ? Urinary tract infection (UTI). How is this diagnosed? This condition is diagnosed based on your medical history, a physical exam, and your symptoms. Tests will also be done, such as: ? A post-void bladder scan. This measures any amount of urine that may remain in your bladder after you finish urinating. ? A digital rectal exam. In a rectal exam, your health care provider checks your prostate by putting a lubricated, gloved finger into your rectum to feel the back of your prostate gland. This exam detects the size of your gland and any abnormal lumps or growths. ? An exam of your urine (urinalysis). ? A prostate specific antigen (PSA) screening. This is a blood test used to screen for prostate cancer. ? An ultrasound. This test uses sound waves to electronically produce a picture of your prostate gland. Your health care provider may refer you to a specialist in kidney and prostate diseases (urologist). How is this treated? Once symptoms begin, your health care provider will monitor your condition (active surveillance or watchful waiting). Treatment for this condition will depend on the severity of your condition. Treatment may include: ? Observation and yearly exams. This may be the only treatment needed if your condition and symptoms are mild. ? Medicines to relieve your symptoms, including: ? Medicines to shrink the prostate. ? Medicines to relax the muscle of the prostate. ? Surgery in severe cases. Surgery may include: ? Prostatectomy. In this procedure, the prostate tissue is removed completely through an open incision or with a laparoscope or robotics. ? Transurethral resection of the prostate (TURP). In this procedure, a tool is inserted through the opening at the tip of the penis (urethra). It is used to cut away tissue of the inner core of the prostate. The pieces are removed through the same opening of the penis. This removes the blockage. ? Transurethral incision (TUIP). In this procedure, small cuts are made in the prostate. This lessens the prostate's pressure on the urethra. ? Transurethral microwave thermotherapy (TUMT). This procedure uses microwaves to create heat. The heat destroys and removes a small amount of prostate tissue. ? Transurethral needle ablation (TUNA). This procedure uses radio frequencies to destroy and remove a small amount of prostate tissue. ? Interstitial laser coagulation (ILC). This procedure uses a laser to destroy and remove a small amount of prostate tissue. ? Transurethral electrovaporization (TUVP). This procedure uses electrodes to destroy and remove a small amount of prostate tissue. ? Prostatic urethral lift. This procedure inserts an implant to push the lobes of the prostate away from the urethra. Follow these instructions at home: ? Take [id number]-bszmcrw and prescription medicines only as told by your health care provider. ? Monitor your symptoms for any changes. Contact your health care provider with any changes. ? Avoid drinking large amounts of liquid before going to bed or out in public. ? Avoid or reduce how much caffeine or alcohol you drink. ? Give yourself time when you urinate. ? Keep all follow-up visits. This is important. Contact a health care provider if: ? You have unexplained back pain. ? Your symptoms do not get better with treatment. ? You develop side effects from the medicine (more content not included)... [facility] Urology Office/Clinic Noteon 02-26-2023 Urology Office/Clinic Note Chief Complaint BPH with urinary obstruction/LUTS HPI Staff 72 yo male here for 3 month f/u. Previous Dx: urethral stricture in male, BPH with LUTS, prostatitis, anticoagulated. S/p Cysto 07/18/22 and Cysto/UD 03/14/22. Taking Tamsulosin 0.4mg and dutasteride 0.5mg QD. Dysuria: no Incomplete bladder emptying: unsure Hematuria: no Frequency: yes pt states that every time he stands he has to void Urgency: yes Nocturia: 3-4x Stream: good strong no straining Leaking: no Post void dripping: yes Wearing pads/ Depends: no Urge incontinence: no Stress incontinence: no Incontinence without Sensory Awareness: no Abdominal pain: pain in the left side of abdomen Flank pain: no Sexual complaints: no History of Present Illness Tests reviewed: reviewed UA I have reviewed the previous health record information and history for this patient from . I have reviewed and verified the staff HPI to be accurate for this encounter. There have been no associated fever, chills, flank pain, or blood in the urine. Denies any urinary infections since last encounter. Review of Systems PHQ Score Initial Depression Screen Score: 0 ROS - Provider Constitutional: denies weight loss, denies hot flashes. Eyes: denies eye problems. Gastrointestinal: denies nausea, denies vomiting. Cardiovascular: denies chest pain or angina. Integumentary: no dryness Musculoskeletal: denies musculoskeletal symptoms. ENMT: denies otolaryngeal symptoms. Respiratory: no shortness of breath. Heme/Lymph: denies easy bleeding tendency, denies easy bruising tendency. Psychiatric: no confusion, no anxiety. Genitourinary: See HPI. Physical Exam Vitals & Measurements HR: 69(Peripheral) RR: 16 BP: 118/60 HT: 65 in HT: 166 cm WT: 71 kg WT: 156.2 lb BMI: 25.77 General Appearance: alert, no distress, well nourished, well developed male. Assessment/Plan 1. Urethral stricture in male (N35.919: Unspecified urethral stricture, male, unspecified site) S/p Cysto/UD done 03/14/22 (dilated with 28 Fr) and 07/18/22 (dilated to 16-30 Fr). PVR at prior OV was 16 mL. 2. BPH with obstruction/lower urinary tract symptoms (N40.1: Benign prostatic hyperplasia with lower urinary tract symptoms) PSA 12/01/21 - 1.23 No other PSA on record. Pt to continue taking Tamsulosin 0.4 mg BID and Dutasteride 0.5mg QD. Pt states every time he sits down and stands up he has to void. Pt states that he voids as soon as he wakes up in the morning, has a good, strong stream, takes a while to empty. Advised pt that he may have an infection still. Pt states that he is only taking the Tamsulosin QD, due to the frequency of voiding and he was afraid he was going to wet the bed . Advised pt that he should try to take this BID to see if this helps him void better, or we would need to discuss doing a TURP. states that when he was taking the Tamsulosin BID, he was wetting the bed. Pt states that he would take the Tamsulosin at 6am and 6 pm. Advised pt to try to take he Tamsulosin BID, both tabs in the morning and continue taking the Dutasteride in the evening. Follow up in 3 mos w/PVR. All questions/concerns were discussed. Pt to call the office if he encounters any issues prior. Pt acknowledges understanding. -Continue taking Dutasteride 0.5mg QD and start taking the Tamsulosin 0.4mg 2 capsules at the same time daily. -See #2 3. Prostatitis (N41.9: Inflammatory disease of prostate, unspecified) UA at prior OV showed trace-intact blood, trace protein, positive nitrates, and small leukocytes. Pt was to take Doxycycline 100mg BID x 1 mos. UA today shows trace-intact blood, large leuks, and positive nitrates. Pt states that he never finished the Doxycycline due to having an allergic reaction, broke out when he was in the sun. Advised pt that we will start him on a new abx due to having an infection still. -Will start Levaquin 500mg QD x3 wks. Discussed the medication side effects, and the patient will monitor closely for these, as well as for symptom improvement. If severe side effects occur, the medication should be stopped and the office notified. 4. 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 Follow-up With When Contact Information NICOLE DIAZ, Cristo Frances, GLORIA In 3 months [facility] [address], [place] [address]- Additional Instructions: w/PVR Patient Education Benign Prostatic Hyperplasia I, Kendra Mann , personally scribed for Dr. Rivera on 02/26/2023 10:18:43. . Documentation recorded by the scribe, Kendra Mann, accurately reflects the services(s) I performed and decisions made by me. Problem List/Past Medical History Ongoing Anticoagulated BPH with obstruction/lower urinary tract symptoms CAD (coronary artery disease) Diabetes Gross hematuria Hard of hearing Headache Heart disease Hyperlipidemia Hypertensio (more content not included)... [facility] Comment on above: Result Comment: Elec tronically Signed By: Cristo RIVERA MD\.br\Date and Time Signed: 02/26/23 10:22 EDT\.br\Electronically Co-Signed By: Kendra Mann\.br\Date and Time Co-Signed: 02/26/23 10:19 EDT Office Visiton 12-13-2022 Follow-up visit [id number] Bora Dan 1950 M Date Provider Department Center 12/13/2022 BLAS MCDANIEL RAVI [facility] Family History Problem Relation Age of Onset Diabetes Mother Heart attack Mother Diabetes Father Heart attack Father Breast cancer Sister Colon cancer Brother Cervical cancer Child Family Status - Relation Status Age at Mother Father Sister Brother Child Alive Level of Service:[id number] ID OFFICE/OUTPATIENT ESTABLISHED MOD MDM 30-39 MIN [facility] Patient Educationon 11-28-19 Patient Education Urology Benign Prostatic Hyperplasia Benign prostatic hyperplasia (BPH) is an enlarged prostate gland that is caused by the normal aging process. The prostate may get bigger as a man gets older. The condition is not caused by cancer. The prostate is a walnut-sized gland that is involved in the production of semen. It is located in front of the rectum and below the bladder. The bladder stores urine. The urethra carries stored urine out of the body. An enlarged prostate can press on the urethra. This can make it harder to pass urine. The buildup of urine in the bladder can cause infection. Back pressure and infection may progress to bladder damage and kidney (renal) failure. What are the causes? This condition is part of the normal aging process. However, not all men develop problems from this condition. If the prostate enlarges away from the urethra, urine flow will not be blocked. If it enlarges toward the urethra and compresses it, there will be problems passing urine. What increases the risk? This condition is more likely to develop in men older than 50 years. What are the signs or symptoms? Symptoms of this condition include: ? Getting up often during the night to urinate. ? Needing to urinate frequently during the day. ? Difficulty starting urine flow. ? Decrease in size and strength of your urine stream. ? Leaking (dribbling) after urinating. ? Inability to pass urine. This needs immediate treatment. ? Inability to completely empty your bladder. ? Pain when you pass urine. This is more common if there is also an infection. ? Urinary tract infection (UTI). How is this diagnosed? This condition is diagnosed based on your medical history, a physical exam, and your symptoms. Tests will also be done, such as: ? A post-void bladder scan. This measures any amount of urine that may remain in your bladder after you finish urinating. ? A digital rectal exam. In a rectal exam, your health care provider checks your prostate by putting a lubricated, gloved finger into your rectum to feel the back of your prostate gland. This exam detects the size of your gland and any abnormal lumps or growths. ? An exam of your urine (urinalysis). ? A prostate specific antigen (PSA) screening. This is a blood test used to screen for prostate cancer. ? An ultrasound. This test uses sound waves to electronically produce a picture of your prostate gland. Your health care provider may refer you to a specialist in kidney and prostate diseases (urologist). How is this treated? Once symptoms begin, your health care provider will monitor your condition (active surveillance or watchful waiting). Treatment for this condition will depend on the severity of your condition. Treatment may include: ? Observation and yearly exams. This may be the only treatment needed if your condition and symptoms are mild. ? Medicines to relieve your symptoms, including: ? Medicines to shrink the prostate. ? Medicines to relax the muscle of the prostate. ? Surgery in severe cases. Surgery may include: ? Prostatectomy. In this procedure, the prostate tissue is removed completely through an open incision or with a laparoscope or robotics. ? Transurethral resection of the prostate (TURP). In this procedure, a tool is inserted through the opening at the tip of the penis (urethra). It is used to cut away tissue of the inner core of the prostate. The pieces are removed through the same opening of the penis. This removes the blockage. ? Transurethral incision (TUIP). In this procedure, small cuts are made in the prostate. This lessens the prostate's pressure on the urethra. ? Transurethral microwave thermotherapy (TUMT). This procedure uses microwaves to create heat. The heat destroys and removes a small amount of prostate tissue. ? Transurethral needle ablation (TUNA). This procedure uses radio frequencies to destroy and remove a small amount of prostate tissue. ? Interstitial laser coagulation (ILC). This procedure uses a laser to destroy and remove a small amount of prostate tissue. ? Transurethral electrovaporization (TUVP). This procedure uses electrodes to destroy and remove a small amount of prostate tissue. ? Prostatic urethral lift. This procedure inserts an implant to push the lobes of the prostate away from the urethra. Follow these instructions at home: ? Take ubmd-baa-jaixjds and prescription medicines only as told by your health care provider. ? Monitor your symptoms for any changes. Contact your health care provider with any changes. ? Avoid drinking large amounts of liquid before going to bed or out in public. ? Avoid or reduce how much caffeine or alcohol you drink. ? Give yourself time when you urinate. ? Keep all follow-up visits. This is important. Contact a health care provider if: ? You have unexplained back pain. ? Your symptoms do not get better with treatment. ? You develop side effects from the medicine (more content not included)... [facility] Urology Office/Clinic Noteon 11-27-2022 Urology Office/Clinic Note HPI Staff 5 month f/u. Previous dx of urethral stricture, BPH with obstruction/LUTS and anticoagulated. PVR today was 16ml. UA shows positive nitrates and small leukocytes. Pt states that he is voiding fine as long as he drinks water but states that most days he is too busy doing things outside to drink. He is up 3-4x a night to void. Tamsulosin 0.4mg therapy BID. Dysuria: no Incomplete bladder emptying: PVR today is 16ml. Hematuria: no Frequency: pt states that when he goes from sitting to standing he has to try to void Urgency: yes Nocturia: 3-4x Stream: states that he has a good stream but only gets a little out at a time Leaking: no Post void dripping: yes Wearing pads/ Depends: no Urge incontinence: no Stress incontinence: no Incontinence without Sensory Awareness: no Abdominal pain: no Flank pain: no Sexual complaints: no History of Present Illness Tests reviewed: reviewed UA, PVR I have reviewed the previous health record information and history for this patient from Dr. Rivera. I have reviewed and verified the staff HPI to be accurate for this encounter. There have been no associated fever, chills, flank pain, or blood in the urine. Denies any urinary infections since last encounter. Review of Systems PHQ Score Initial Depression Screen Score: 0 ROS - Provider Constitutional: denies weight loss, denies hot flashes. Eyes: denies eye problems. Gastrointestinal: denies nausea, denies vomiting. Cardiovascular: denies chest pain or angina. Integumentary: no dryness Musculoskeletal: denies musculoskeletal symptoms. ENMT: denies otolaryngeal symptoms. Respiratory: no shortness of breath. Heme/Lymph: denies easy bleeding tendency, denies easy bruising tendency. Psychiatric: no confusion, no anxiety. Genitourinary: See HPI. Physical Exam Vitals & Measurements HR: 64(Peripheral) RR: 16 BP: 89/51 HT: 65 in HT: 166 cm WT: 71 kg WT: 156.2 lb BMI: 25.77 General Appearance: alert, no distress, well nourished, well developed male. Genitourinary: normal scrotum, normal testes, normal urethra, normal epididymis, normal vas deferens/spermatic cord. Flank Pain: none. Bladder: nonpalpable. Assessment/Plan 1. Urethral stricture in male (N35.919: Unspecified urethral stricture, male, unspecified site) S/p Cysto/UD done 03/14/22 (dilated with 28 Fr) and 07/18/22 (dilated to 16-30 Fr). PVR today 16 mL. 2. BPH with obstruction/lower urinary tract symptoms (N40.1: Benign prostatic hyperplasia with lower urinary tract symptoms) PSA 12/01/21 - 1.23 No other PSA on record. Pt states every time he sits down and stands up he has to void. Pt to continue taking Tamsulosin 0.4 mg BID. Will add Dutasteride 0.5mg QD. Discussed the medication side effects, and the patient will monitor closely for these, as well as for symptom improvement. If severe side effects occur, the medication should be stopped and the office notified. 3. Prostatitis (N41.9: Inflammatory disease of prostate, unspecified) UA today shows trace-intact blood, trace protein, positive nitrates, and small leukocytes. Recommended pt to increase fluid intake to eight 16oz bottles a day; preferably water, clear pop, and sugar free lemonade. Pt to start taking Doxycycline 100mg BID for a month. Discussed the medication side effects, and the patient will monitor closely for these, as well as for symptom improvement. If severe side effects occur, the medication should be stopped and the office notified. Follow up in 3 months or sooner if needed. All questions/concerns were discussed. Pt to call the office if he encounters any issues prior. Pt acknowledges understanding. 4. 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 Follow-up With When Contact Information Cristo RIVERA MD, URL [facility] [address], [place] [address]- [phone] Additional Instructions: 3 mos Patient Education Benign Prostatic Hyperplasia I, Opal Kessler, personally scribed for Dr. Rivera on 11/27/2022 10:20:34. . Documentation recorded by the scribe, Opal Kessler, accurately reflects the services(s) I performed and decisions made by me. Authenticated by Dr. Rivera on 11/27/2022 10:22:41. Problem List/Past Medical History Ongoing Anticoagulated BPH with obstruction/lower urinary tract symptoms CAD (coronary artery disease) Diabetes Gross hematuria Hard of hearing Headache Heart disease Hyperlipidemia Hypertension Myocardial infarction Prostatitis Urethral stricture in male Historical No qualifying data Procedure/Surgical History Cystoscopy (07/18/2022), Cystourethroscopy with dilation of urethral stricture (03/14/2022), AVR - Aortic valve replacement, CABG x 4 - Coronary artery bypass grafts x 4, Cataract. Medications amLODIPine 10 mg Tab Flomax 0.4 mg Cap, 0.4 mg= 1 cap(s), Oral, Daily, 6 refills isosorbide mononitra (more content not included)... [facility] Comment on above: Result Comment: Elec tronically Signed By: Cristo RIVERA MD\.br\Date and Time Signed: 11/27/22 10:22 EDT\.br\Electronically Co-Signed By: Opal Kessler\.br\Date and Time Co-Signed: 11/27/22 10:20 EDT Consent for Procedure/Surger yon 07-20-2022 Consent for Procedure/Surgery [id number]:1 27 [facility] Patient Educationon 07-19-19 23 Patient Education Urology Urethral Stricture Urethral stricture is narrowing of the tube (urethra) that carries urine from the bladder out of the body. The urethra can become narrow due to scar tissue from an injury or infection. This can make it difficult to pass urine. In women, the urethra opens above the vaginal opening. In men, the urethra opens at the tip of the penis, and the urethra is much longer than it is in women. Because of the length of the male urethra, urethral stricture is much more common in men. This condition is treated with surgery. What are the causes? In both men and women, common causes of urethral stricture include: ? Urinary tract infection (UTI). ? Sexually transmitted infection (STI). ? Use of a tube placed into the urethra to drain urine from the bladder (urinary catheter). ? Urinary tract surgery. In men, common causes of urethral stricture include: ? A severe injury to the pelvis. ? Prostate surgery. ? Injury to the penis. In many cases, the cause of urethral stricture is not known. What increases the risk? You are more likely to develop this condition if you: ? Are male. Men who have had prostate surgery are at risk of developing this condition. ? Use a urinary catheter. ? Have had urinary tract surgery. What are the signs or symptoms? The main symptom of this condition is difficulty passing urine. This may cause decreased urine flow, dribbling, or spraying of urine. Other symptom of this condition may include: ? Frequent UTIs. ? Blood in the urine. ? Pain when urinating. ? Swelling of the penis in men. ? Inability to pass urine (urinary obstruction). How is this diagnosed? This condition may be diagnosed based on: ? Your medical history and a physical exam. ? Urine tests to check for infection or bleeding. ? X-rays. ? Ultrasound. ? Retrograde urethrogram. This is a type of test in which dye is injected into the urethra and then an X-ray is taken. ? Urethroscopy. This is when a thin tube with a light and camera on the end (urethroscope) is used to look at the urethra. How is this treated? This condition is treated with surgery. The type of surgery that you have depends on the severity of your condition. You may have: ? Urethral dilation. In this procedure, the narrow part of the urethra is stretched open (dilated) with dilating instruments or a small balloon. ? Urethrotomy. In this procedure, a urethroscope is placed into the urethra, and the narrow part of the urethra is cut open with a surgical blade inserted through the urethroscope. ? Open surgery. In this procedure, an incision is made in the urethra, the narrow part is removed, and the urethra is reconstructed. Follow these instructions at home: ? Take lbbn-tky-eqgweok and prescription medicines only as told by your health care provider. ? If you were prescribed an antibiotic medicine, take it as told by your health care provider. Do not stop taking the antibiotic even if you start to feel better. ? Drink enough fluid to keep your urine pale yellow. ? Keep all follow-up visits as told by your health care provider. This is important. Contact a health care provider if: ? You have signs of a urinary tract infection, such as: ? Frequent urination or passing small amounts of urine frequently. ? Needing to urinate urgently. ? Pain or burning with urination. ? Urine that smells bad or unusual. ? Cloudy urine. ? Pain in the lower abdomen or back. ? Trouble urinating. ? Blood in the urine. ? Vomiting or being less hungry than normal. ? Diarrhea or abdominal pain. ? Vaginal discharge, if you are female. ? Your symptoms are getting worse instead of better. Get help right away if: ? You cannot pass urine. ? You have a fever. ? You have swelling, bruising, or discoloration of your genital area. This includes the penis, scrotum, and inner thighs for men, and the outer genital organs (vulva) and inner thighs for women. ? You develop swelling in your legs. ? You have difficulty breathing. Summary ? Urethral stricture is narrowing of the tube (urethra) that carries urine from the bladder out of the body. The urethra can become narrow due to scar tissue from an injury or infection. ? This condition can make it difficult to pass urine. ? This condition is treated with surgery. The type of surgery that you have depends on the severity of your condition. ? Contact a health care provider if your symptoms get worse or you have signs of a urinary tract infection. This information is not intended to replace advice given to you by your health care provider. Make sure you discuss any questions you have with your health care provider. Document Released: 05/26/2016 Document Revised: 12/11/2018 Document Reviewed: 12/11/2018 [id number] [employer] Patient Education ? 2019 [employer]ok [employer] [facility] U[facility] Office/Clinic Noteon 07-18-2022 Urology Office/Clinic Note HPI Staff Marilu is IO for a Cysto/UD. ABX taken. History of Present Illness Tests reviewed: none. I have reviewed the previous health record information and history for this patient from Dr. Rivera. I have reviewed and verified the staff HPI to be accurate for this encounter. There have been no associated fever, chills, flank pain, or blood in the urine. Denies any urinary infections since last encounter. Review of Systems PHQ Score Initial Depression Screen Score: 0 ROS - Provider Constitutional: denies weight loss, denies hot flashes. Eyes: denies eye problems. Gastrointestinal: denies nausea, denies vomiting. Cardiovascular: denies chest pain or angina. Integumentary: no dryness Musculoskeletal: denies musculoskeletal symptoms. ENMT: denies otolaryngeal symptoms. Respiratory: no shortness of breath. Heme/Lymph: denies easy bleeding tendency, denies easy bruising tendency. Psychiatric: no confusion, no anxiety. Genitourinary: See HPI. Physical Exam Vitals & Measurements HR: 66(Peripheral) BP: 138/58 HT: 65 in HT: 166 cm WT: 73 kg WT: 160.6 lb BMI: 26.49 General Appearance: alert, no distress, well nourished, well developed male. Genitourinary: normal scrotum, normal testes, normal urethra, normal epididymis, normal vas deferens/spermatic cord. Flank Pain: none. Bladder: nonpalpable. Procedure Operative Information Anesthesia Type: Local Procedure: Local Cystoscopy with Urethral Dilation Complications: None Surgical risks, benefits, details of the procedure have been explained to the patient. Full informed consent has been obtained. Intraoperative Information Prepped: Patient is brought back to the endoscopy suite. Patient is placed in supine position. Patient prepped in the usual fashion with Betadine solution. 2% Xylocaine Jelly is placed per Urethra. After waiting several minutes, the Cystoscope is introduced. The Urethra is: Tight.sequential strictures along penile urethra and at bulb. The Prostatic Urethra is: _Bilobar obstruction. The Bladder: _ No tumors or stones. Trabeculated: Severe (3) with open diverticuli. The Ureteral orifices: Show efflux of clear urine The Urethra was dilated to: 16-30_ Mauritian with sounds. Specimens Removed: None Removal: Cystoscope is removed. The patient tolerated it well. Postoperative Information Patient is discharged home with antibiotic coverage. Follow up arranged. Assessment/Plan 1. Urethral stricture in male (N35.919: Unspecified urethral stricture, male, unspecified site) S/p cysto/UD done 03/14/22 for BPH, gross hematuria, and urethral stricture: 3 penile strictures, dilated with 28 Fr. C&S done 04/29/22 was negative. Pt had IO cysto/UD today without complications. Pt took prophylactic abx prior to procedure. Follow up Sunday for cath removal or sooner if needed. Pt understands and agrees with plan. 2. BPH with obstruction/lower urinary tract symptoms (N40.1: Benign prostatic hyperplasia with lower urinary tract symptoms) PSA 1.23 done 11/2021, none prior in our records. Pt taking Flomax 0.4 mg QD. 3. Anticoagulated (Z79.01: senior care (current) use of 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) Xarelto. Follow-up With When Contact Information NICOLE DIAZ, Cristo Frances, URL [facility] [address], [place] [address]- Additional Instructions: sunday cath change Patient Education Urethral Stricture IMichelle, personally scribed for Dr. Rivera on 07/18/2022 13:39:46. . Documentation recorded by the scribe, Michelle Watson, accurately reflects the services(s) I performed and decisions made by me. Authenticated by Dr. Rivera on 07/18/2022 13:41:13. Problem List/Past Medical History Ongoing Anticoagulated BPH with obstruction/lower urinary tract symptoms CAD (coronary artery disease) Diabetes Gross hematuria Hard of hearing Headache Heart disease Hyperlipidemia Hypertension Myocardial infarction Urethral stricture in male Historical No qualifying data Procedure/Surgical History Cystoscopy (07/18/2022), Cystourethroscopy with dilation of urethral stricture (03/14/2022), AVR - Aortic valve replacement, CABG x 4 - Coronary artery bypass grafts x 4, Cataract. Medications amLODIPine 10 mg Tab Cipro 500 mg Tab, 500 mg= 1 tab(s), Oral, Daily Flomax 0.4 mg Cap, 0.4 mg= 1 cap(s), Oral, Daily, 6 refills isosorbide mononitrate 30 mg ER Tab lisinopril 20 mg Tab MetFORMIN (Eqv-Glucophage XR) 500 mg oral tablet, extended release Metoprolol tartrate 50 mg Tab simvastatin 40 mg Tab Xarelto 20 mg oral tablet Allergies penicillin (Throat tightness, [id number]) sulfa drugs (Vomit) Social History Tobacco Former smoker, quit more than 30 days ago Tobacco Use:. Never Smokeless Tobacco Use:. Cigarettes, Started age 17.0 Years. Stopped age 48 Years., 06/05/2022 Family History Diabetes: Mother. Heart disease: Mother and Father. Immunizations (more content not included)... Normal [facility] Comment on above: Result Comment: Elec tronically Signed By: Cristo RIVERA MD\.br\Date and Time Signed: 07/18/22 13:41 EST\.br\Electronically Co-Signed By: Michelle Watson\.br\Date and Time Co-Signed: 07/18/22 13:40 EST Redraw Potassiumon 3 Potassium [Moles/Vol] 5.2 mmol/L High 3.5-5.[address] [facility] Comment on above: Result Comment: PERF ORMED BY: [place] [address] PATHOLOGIST [employer]IC[employer] HYACINTH SHAH M.D. Performed By: #### R JOCELYNN Kraus #### [address] US venous duplex LE RTon US venous duplex LE RT [facility] [place] [address] [place] [address] Ultrasound Report Signed Patient: Marilu Dan MR#: [id number] : 1950 Acct:[id number] Age/Sex: 72 / M ADM Date: 07/11/22 Loc: Room: Type: [facility] Attending Dr: Mary Beth Pitts MD Ordering Provider: Mary Beth Pitts MD Date of Service: 07/11/22 US/US venous duplex LE RT: M79.604 Copies to: Mary Beth Pitts MD RIGHT LOWER EXTREMITY VENOUS DUPLEX INDICATION: Right leg edema, pain and tenderness Unilateral right lower extremity venous duplex Doppler study was obtained utilizing B-mode, color- flow and spectral Doppler. FINDINGS: The right common femoral, femoral, and popliteal veins showed adequate compressibility, color-flow and augmentation. The right posterior tibial and peroneal veins were compressible, as well as proximal greater saphenous vein. The contralateral left common femoral vein was compressible with color-flow and augmentation. US/US venous duplex LE RT IMPRESSION: NO EVIDENCE OF DEEP VENOUS THROMBOSIS IN THE RIGHT LOWER EXTREMITY. NO SUPERFICIAL THROMBOPHLEBITIS WAS NOTED. Impression dictated by: Mahendra Escalante MD07/12/2022 4:46 PM Dictation Location: [place] [address] Tech: Genesis Wooten Transcribed By: ABIMBOLA 07/12/221645 Dictated By: Mahendra Escalante MD 07/12/221645 Signed By: 07/12/22 164 Normal [facility] Basic Metabolic Panelon 06-15 Anion gap [Moles/Vol] Not performed Normal 6.0-15.0 [facility] Comment on above: Performed By: #### C UU #### [facility] [address] [place] [address] Calcium [Mass/Vol] 9.2 mg/dL Normal 8.2-10.2 [facility] Comment on above: Result Comment: PERF ORMED BY: [place] [address] PATHOLOGIST [employer] HYACINTH SHAH M.D. Performed By: #### C UU #### [facility] [address] Chloride [Moles/Vol] 102 mmol/L Normal 95-114 [facility] Comment on above: Performed By: #### C UU #### [facility] [address] CO2 [Moles/Vol] 22.4 mmol/L Normal 22.0-30.0 [facility] Comment on above: Performed By: #### C UU #### [facility] [address] Creatinine [Mass/Vol] 0.97 mg/dL Normal 0.64-1.[address] [facility] Comment on above: Performed By: #### C UU #### [address] Estimated GFR ( Lilia > 60 Normal [facility] Comment on above: Result Comment: GFR estimated reference range: According to KDOQI guidelines, <60 ml/min/1.73m2 is sufficient to diagnose a patient with chronic kidney disease. Performed By: #### C UU #### [address] Estimated GFR (Non- Am > 60 Normal [facility] Comment on above: Performed By: #### C UU #### [address] Glucose [Mass/Vol] 197 mg/dL High 70-100 [facility] Comment on above: Result Comment: [place] Glucose Reference Range is dependent on time and content of last meal. Glucose of more than 200 mg/dL in a nonstressed, ambulatory subject supports the diagnosis of Diabetes Mellitus. ADA recommended reference range Performed By: #### C UU #### [address] Potassium Normal 3.5-5.1 [facility] Comment on above: Result Comment: Spec imen hemolyzed, redraw requested Performed By: #### C UU #### [address] Sodium [Moles/Vol] 131 mmol/L Low 136-146 [facility] Comment on above: Performed By: #### C UU #### [place] [address] [place] Urea nitrogen [Mass/Vol] 20 mg/dL Normal 9-23 [facility] Comment on above: Performed By: #### C UU #### [facility] [address] Calcium [Mass/volume] in Ser um or PlasmaOrdered By: Blas Ospina on 07-11-2022 Calcium [Mass/Vol] 9.2 mg/dL 8.2-10.2 [facility] Carbon dioxide, total [Moles /volume] in Serum or PlasmaOrdered By: Blas Ospina on 07-11-2022 CO2 [Moles/Vol] 22.4 mmol/L 22.0-30.0 [facility] Chloride [Moles/volume] in S quinten or PlasmaOrdered By: Blas Ospina on 07-11-2022 Chloride [Moles/Vol] 102 mmol/L 95-114 [facility] Creatinine and Glomerular fi ltration rate.predicted panel (S/P/Bld)Ordered By: Blas Ospina on 07-11-2022 Creatinine [Mass/Vol] 0.97 mg/dL 0.64-1.[address] [facility] Estimated glomerular filtrat ion rate (GFR) non- AmericanOrdered By: Blas Ospina on 07-11-2022 GFR/1.73 sq M.predicted among non-blacks MDRD (S/P/Bld) [Vol rate/Area] > 60 mL/Min [facility] Glucose [Mass/volume] in Ser um or PlasmaOrdered By: Blas Ospina on 07-11-2022 Glucose [Mass/Vol] 197 mg/dL 70-100 [facility] Comment on above: ADA recommended refe rence rangeRandom Glucose Reference Range is dependent on time and content of last meal. Glucose of more than 200 mg/dL in a nonstressed, ambulatory subject supports the diagnosis of Diabetes Mellitus. No Panel InformationOrdered By: Blas Ospina on 07-11-2022 Estimated GFR () > 60 mL/Min [facility] Comment on above: GFR estimated refere nce range: According to KDOQI guidelines, <60 ml/min/1.73m2 is sufficient to diagnose a patient with chronic kidney disease. Pharmacy Creatinine Clearance (Chem N/A [facility] Potassium [Moles/volume] in Serum or PlasmaOrdered By: Blas Ospina on 07-11-2022 Potassium [Moles/Vol] See comment 3.5-5.1 [facility] Comment on above: Specimen hemolyzed, redraw requested Serum or plasma anion gap de terminationOrdered By: Blas Ospina on 07-11-2022 Anion gap [Moles/Vol] TNP [facility] Comment on above: Test not performed Sodium [Moles/volume] in Ser um or PlasmaOrdered By: Blas Ospina on 07-11-2022 Sodium [Moles/Vol] 131 mmol/L 136-146 [facility] Urea nitrogen [Mass/volume] in Serum or PlasmaOrdered By: Blas Ospina on 07-11-2022 Urea nitrogen [Mass/Vol] 20 mg/dL 9-23 [facility] XR hip RT min 2V(w/wo pelvis )*on 07-11-2022 XR hip RT min 2V(w/wo pelvis)* [facility] [employer] Other XR hip RT min 2V(w/wo pelvis)* [facility] San[employer] Other XR hip RT min 2V(w/wo pelvis)* [address] [place] [address] San[employer] Other XR hip RT min 2V(w/wo pelvis)* [place] [address] [employer] Other XR hip RT min 2V(w/wo pelvis)* XRay Report [employer] Other XR hip RT min 2V(w/wo pelvis)* Signed [employer] Other XR hip RT min 2V(w/wo pelvis)* Patient: Marilu Dan MR#: [id number] [employer] Other XR hip RT min 2V(w/wo pelvis)* 019 [employer] Other XR hip RT min 2V(w/wo pelvis)* : 1950 Acct:[id number] [employer] Other XR hip RT min 2V(w/wo pelvis)* Age/Sex: 72 / M ADM Date: 07/11/22 [facility] Other XR hip RT min 2V(w/wo pelvis)* Loc: Room: Type: REG CLI [employer] Other XR hip RT min 2V(w/wo pelvis)* Attending Dr: Mary Beth Pitts MD [employer] Other XR hip RT min 2V(w/wo pelvis)* Copies to: Mary Beth Pitts MD [employer] Other XR hip RT min 2V(w/wo pelvis)* Ordering Provider: Mary Beth Pitts MD [employer] Other XR hip RT min 2V(w/wo pelvis)* Date of Service: 07/11/22 [facility] Other XR hip RT min 2V(w/wo pelvis)* XR/XR hip RT min 2V(w/wo pelvis)*: M25.551 [employer] Other XR hip RT min 2V(w/wo pelvis)* RIGHT HIP - 2 views: [facility] Other XR hip RT min 2V(w/wo pelvis)* CLINICAL HISTORY: Chronic right hip pain for one year. [employer] Other XR hip RT min 2V(w/wo pelvis)* COMPARISON: None [facility] Other XR hip RT min 2V(w/wo pelvis)* FINDINGS: Mild degenerative changes of the right hip without acute bony process. Additional [facility] Other XR hip RT min 2V(w/wo pelvis)* degenerative changes are seen involving the SI joints and visualized lower lumbar spine. Vascular [employer] Other XR hip RT min 2V(w/wo pelvis)* calcifications. [facility] Other XR hip RT min 2V(w/wo pelvis)* XR/XR hip RT min 2V(w/wo pelvis)* [facility] Other XR hip RT min 2V(w/wo pelvis)* IMPRESSION: Sanitors Other XR hip RT min 2V(w/wo pelvis)* MILD DEGENERATIVE CHANGES OF THE RIGHT HIP WITHOUT ACUTE BONY PROCESS.. [facility] Other XR hip RT min 2V(w/wo pelvis)* Impression dictated by: Griffin Thibodeaux Jr., TonyOBrook07/11/2022 11:33 AM [facility] Other XR hip RT min 2V(w/wo pelvis)* Dictation Location: [place] [address] [employer] Other XR hip RT min 2V(w/wo pelvis)* Transcribed By: PWS 07/11/22 [facility] San[employer] Other XR hip RT min 2V(w/wo pelvis)* Dictated By: Griffin Thibodeaux Jr, DO 07/11/22 [facility] [employer] Other XR hip RT min 2V(w/wo pelvis)* Signed By: San[employer] Other XR hip RT min 2V(w/wo pelvis)* 07/11/22 [facility] [employer] Other XR hip RT min 2V(w/wo pelvis)* [facility] [place] [address] [place] [address] XRay Report Signed Patient: Marilu Dan MR#: [id number] 019 : 1950 Acct:[id number] Age/Sex: 72 / M ADM Date: 07/11/22 Loc: Room: Type: [facility] CLI Attending Dr: Mary Beth Pitts MD Copies to: Mary Beth Pitts MD Ordering Provider: Mary Beth Pitts MD Date of Service: 07/11/22 XR/XR hip RT min 2V(w/wo pelvis)*: M25.551 RIGHT HIP - 2 views: CLINICAL HISTORY: Chronic right hip pain for one year. COMPARISON: None FINDINGS: Mild degenerative changes of the right hip without acute bony process. Additional degenerative changes are seen involving the SI joints and visualized lower lumbar spine. Vascular calcifications. XR/XR hip RT min 2V(w/wo pelvis)* IMPRESSION: MILD DEGENERATIVE CHANGES OF THE RIGHT HIP WITHOUT ACUTE BONY PROCESS.. Impression dictated by: Griffin Thibodeaux Jr., D.O.07/11/2022 11:33 AM Dictation Location: [place] [address] Transcribed By: [facility] 07/11/22 1133 Dictated By: Griffin Thibodeaux Jr, DO 07/11/22 113 Signed By: 07/11/22 1133 [facility] 36on 07-05-2022 36 Patient called to shay steiner aware of blood pressures: 139/65 this morning 108/50 11:30am today 141/73 yesterday morning 87/50 11:30am yesterday - wasn't lightheaded I told him I'd let you know and if you wanted to make any changes I'd call him. Normal [facility] Office Visiton 06-19-2022 Follow-up visit [id number] Bora Dan gissel 1950 M Date Provider Department Center 06/19/2022 BLAS MCDANIEL [facility] Family History Problem Relation Age of Onset Diabetes Mother Heart attack Mother Diabetes Father Heart attack Father Breast cancer Sister Colon cancer Brother Cervical cancer Child Family Status - Relation Status Age at Mother Father Sister Brother Child Alive Level of Service:[id number] ID OFFICE/OUTPATIENT ESTABLISHED MOD MDM 30-39 MIN Reason for Visit and Comments: Hypertension [699420] Valve Disorder [3372] Normal [facility] CULTURE URINEon 04-29-2022 CULTURE URINE Culture Observations : NO GROWTH. Normal [facility] Comment on above: Performed By: #### S EDR #### [facility] [address] [place] [address] [address] Julius Greer Basic Metabolic Panelon 11-0 Anion gap [Moles/Vol] 9.6 mmol/L Normal 6.0-15.[address] [facility] Comment on above: Performed By: #### B MP #### [facility] [address] Calcium [Mass/Vol] 8.2 mg/dL Normal 8.2-10.2 [facility] Comment on above: Performed By: #### B MP #### [facility] [address] Chloride [Moles/Vol] 104 mmol/L Normal 95-114 [facility] Comment on above: Performed By: #### B MP #### [address] CO2 [Moles/Vol] 27.1 mmol/L Normal 22.0-30.0 [facility] Comment on above: Performed By: #### B MP #### [address] Creatinine [Mass/Vol] 0.75 mg/dL Normal 0.64-1.[address] [facility] Comment on above: Performed By: #### B MP #### [place] [address] [place] Creatinine Clr Calc Pharmacy 85.68 Normal [facility] Comment on above: Result Comment: PERF ORMED BY: [place] [address] PATHOLOGIST SERV[employer] HYACINTH SHAH M.D. Performed By: #### B MP #### [address] Estimated GFR ( Lilia > 60 Normal [facility] Comment on above: Result Comment: GFR estimated reference range: According to KDOQI guidelines, <60 ml/min/1.73m2 is sufficient to diagnose a patient with chronic kidney disease. Performed By: #### B MP #### [place] [address] [place] Estimated GFR (Non- Am > 60 Normal [facility] Comment on above: Performed By: #### B MP #### [facility] [address] Glucose [Mass/Vol] 203 mg/dL High 70-100 [facility] Comment on above: Result Comment: [place] Glucose Reference Range is dependent on time and content of last meal. Glucose of more than 200 mg/dL in a nonstressed, ambulatory subject supports the diagnosis of Diabetes Mellitus. ADA recommended reference range Performed By: #### B MP #### [facility] [address] Potassium [Moles/Vol] 3.7 mmol/L Normal 3.5-5.[address] [facility] Comment on above: Performed By: #### B MP #### [facility] [address] Sodium [Moles/Vol] 137 mmol/L Normal 136-146 [facility] Comment on above: Performed By: #### B MP #### [facility] [address] Urea nitrogen [Mass/Vol] 11 mg/dL Normal 9-23 [facility] Comment on above: Performed By: #### B MP #### [facility] [address] Basophils Auto (Bld) [#/Vol] Ordered By: Neno Mccarthyr on 03-19-2022 Basophils (Bld) [#/Vol] 0.0 10*3/uL 0.0-0.2 [facility] Basophils/100 WBC Auto (Bld) Ordered By: Obsarabjitdarobin Coronadoomar on 03-19-2022 Basophils/100 WBC (Bld) 0.2 % . [facility] CULTURE BLOODon 03-19-2022 Microscopic examination of blood, culture Culture Observations: Both aerobic and anaerobic bottles positive. BCID- Proteus mirabilis Culture Observations: BCID called to Omaira Ingram RN at 1000 on 03/17/22 by NS Isolate 1 Proteus mirabilis Growth of ORGANISM 1 Proteus mirabilis ANTIBIOTIC M.I.C RX STATUS Ampicillin <=2 S F Ampicillin/Sulbactam <=2 S F Piperacillin/Tazobactam <=4 S F Cefazolin <=4 S F Ceftazidime <=1 S F Ceftriaxone <=1 S F Ertapenem <=0.5 S F Imipenem 2 S F Amikacin <=2 S F Gentamicin <=1 S F Tobramycin <=1 S F Ciprofloxacin <=0.25 S F Levofloxacin <=0.12 S F Trimethoprim/Sulfamethoxa zole <=[address] [facility] Comment on above: Performed By: #### S EDR #### [facility] [address] [place] [address] Dr. Julius Greer Microscopic examination of blood, culture Culture Observations: Aerobic and anaerobic bottles positive. BCID- Proteus mirabilis Culture Observations: BCID called to Omaira Ingram RN at 1000 on 03/17/22 by NS Isolate 1 Proteus mirabilis Growth of ORGANISM 1 Proteus mirabilis ANTIBIOTIC M.I.C RX STATUS Ampicillin <=2 S F Ampicillin/Sulbactam <=2 S F Piperacillin/Tazobactam <=4 S F Cefazolin <=4 S F Ceftazidime <=1 S F Ceftriaxone <=1 S F Ertapenem <=0.5 S F Imipenem 2 S F Amikacin <=2 S F Gentamicin <=1 S F Tobramycin <=1 S F Ciprofloxacin <=0.25 S F Levofloxacin <=0.12 S F Trimethoprim/Sulfamethoxa zole <=[address] [facility] Comment on above: Performed By: #### B LDCX2 #### [facility] [address] [place] [address] Dr. Julius Greer CULTURE URINEon 03-19-2022 CULTURE URINE Isolate 1 Proteus mirabilis >100,000 cfu/ml of ORGANISM 1 Proteus mirabilis ANTIBIOTIC M.I.C RX STATUS Ampicillin <=2 S F Ampicillin/Sulbactam <=2 S F Piperacillin/Tazobactam <=4 S F Cefazolin <=4 S F Ceftazidime <=1 S F Ceftriaxone <=1 S F Ertapenem <=0.5 S F Imipenem 2 S F Amikacin <=2 S F Gentamicin <=1 S F Tobramycin <=1 S F Ciprofloxacin <=0.25 S F Levofloxacin <=0.12 S F Nitrofurantoin 128 R F Trimethoprim/Sulfamethoxa zole <=20 S F Normal [facility] Comment on above: Performed By: #### S EDR #### [facility] [address] [place] [address] [address] Julius Greer Complete Blood Count Auto Di ffon 03-19-2022 Basophils (Bld) [#/Vol] 0.0 10*3/uL Normal 0.0-0.2 [facility] Comment on above: Result Comment: PERF ORMED BY: [place] [address] PATHOLOGIST [employer] HYACINTH SHAH M.D. Performed By: #### B MP, MG, LIPID, A1C WTH eA, CBC #### [address] Basophils/100 WBC (Bld) 0.2 % Normal . [facility] Comment on above: Performed By: #### B MP, MG, LIPID, A1C WTH eA, CBC #### [facility] [address] [place] [address] Eosinophils (Bld) [#/Vol] 0.0 10*3/uL Normal 0.0-0.45 [facility] Comment on above: Performed By: #### B MP, MG, LIPID, A1C WTH eA, CBC #### [address] Eosinophils/100 WBC (Bld) 1.0 % Normal . [facility] Comment on above: Performed By: #### B MP, MG, LIPID, A1C WTH eA, CBC #### [address] Erythrocyte distribution width (RBC) [Ratio] 12.8 % Normal 12.0-14.8 [facility] Comment on above: Performed By: #### B MP, MG, LIPID, A1C WTH eA, CBC #### [address] Hematocrit (Bld) [Volume fraction] 35.5 % Low 38.8-50.0 [facility] Comment on above: Performed By: #### B MP, MG, LIPID, A1C WTH eA, CBC #### [address] Hemoglobin (Bld) [Mass/Vol] 12.0 g/dL Low 13.0-17.0 [facility] Comment on above: Performed By: #### B MP, MG, LIPID, A1C WTH eA, CBC #### [address] Lymphocytes (Bld) [#/Vol] 1.0 10*3/uL Normal 1.00-4.8 [facility] Comment on above: Performed By: #### B MP, MG, LIPID, A1C WTH eA, CBC #### [address] Lymphocytes/100 WBC (Bld) 20.4 % Normal . [facility] Comment on above: Performed By: #### B MP, MG, LIPID, A1C WTH eA, CBC #### [address] MCH (RBC) [Entitic mass] 29.9 pg Normal 27.5-35.2 [facility] Comment on above: Performed By: #### B MP, MG, LIPID, A1C WTH eA, CBC #### [address] MCV (RBC) [Entitic vol] 88.3 fL Normal 83.5-101 [facility] Comment on above: Performed By: #### B MP, MG, LIPID, A1C WTH eA, CBC #### [address] Mean Corpuscular HGB Conc 33.9 g/dL Normal 32.5-35.6 [facility] Comment on above: Performed By: #### B MP, MG, LIPID, A1C WTH eA, CBC #### [address] [place] [address] [place] Monocytes (Bld) [#/Vol] 0.6 10*3/uL Normal 0.0-0.8 [facility] Comment on above: Performed By: #### B MP, MG, LIPID, A1C WTH eA, CBC #### [address] Monocytes/100 WBC (Bld) 12.2 % Normal . [facility] Comment on above: Performed By: #### B MP, MG, LIPID, A1C WTH eA, CBC #### [address] Neutrophils (Bld) [#/Vol] 3.3 10*3/uL Normal 1.8-7.7 [facility] Comment on above: Performed By: #### B MP, MG, LIPID, A1C WTH eA, CBC #### [address] Neutrophils/100 WBC (Bld) 66.2 % Normal . [facility] Comment on above: Performed By: #### B MP, MG, LIPID, A1C WTH eA, CBC #### [address] Nucleated RBC/100 WBC (Bld) [Ratio] 0.1 % Normal 0-0.5 [facility] Comment on above: Performed By: #### B MP, MG, LIPID, A1C WTH eA, CBC #### [place] [address] [place] Platelet mean volume (Bld) [Entitic vol] 8.3 fL Normal 6.6-10.1 [facility] Comment on above: Performed By: #### B MP, MG, LIPID, A1C WTH eA, CBC #### [place] [address] [place] Platelets (Bld) [#/Vol] 134 10*3/uL Low 150-450 [facility] Comment on above: Performed By: #### B MP, MG, LIPID, A1C WTH eA, CBC #### [address] RBC (Bld) [#/Vol] 4.02 10*6/uL Normal 3.90-5.60 [facility] Comment on above: Performed By: #### B MP, MG, LIPID, A1C WTH eA, CBC #### [facility] [address] [place] [address] [place] WBC (Bld) [#/Vol] 4.9 10*3/uL Normal 4.5-11.0 [facility] Comment on above: Performed By: #### B MP, MG, LIPID, A1C WT eA, CBC #### [facility] [address] Creatinine and Glomerular fi ltration rate.predicted panel (S/P/Bld)Ordered By: Neno Moreira on 03-19-2022 Creatinine [Mass/Vol] 0.75 mg/dL 0.64-1.[address] [facility] Eosinophils Auto (Bld) [#/Vo l]Ordered By: Neno Coronadoomar on 03-19-2022 Eosinophils (Bld) [#/Vol] 0.0 10*3/uL 0.0-0.45 [facility] Eosinophils/100 WBC Auto (Bl d)Ordered By: Obsarabjitdarobin Coronadoomar on 03-19-2022 Eosinophils/100 WBC (Bld) 1.0 % . [facility] Erythrocyte distribution wid th Auto (RBC) [Ratio]Ordered By: Neno Moreira on 03-19-2022 Erythrocyte distribution width (RBC) [Ratio] 12.8 % 12.0-14.8 [facility] Estimated glomerular filtrat ion rate (GFR) non- AmericanOrdered By: Diyadarobin Mccarthyr on 03-19-2022 GFR/1.73 sq M.predicted among non-blacks MDRD (S/P/Bld) [Vol rate/Area] > 60 mL/Min [facility] Glucose Glucometer (BldC) [M ass/Vol]Ordered By: Neno Moreira on 03-19-2022 Glucose [Mass/Vol] 295 mg/dL [facility] Comment on above: Random Glucose Refer ence Range is dependent on time and content of last meal. Glucose of more than 200 mg/dL in a nonstressed, ambulatory subject supports the diagnosis of Diabetes Mellitus. Glucose Poct Glucometerson 1 05-19-2021 Glucose [Mass/Vol] 295 mg/dL Normal [facility] Comment on above: Result Comment: [place] om Glucose Reference Range is dependent on time and content of last meal. Glucose of more than 200 mg/dL in a nonstressed, ambulatory subject supports the diagnosis of Diabetes Mellitus. PERFORMED BY: [place] [address] PATHOLOGIST [employer] HYACINTH SHAH M.D. Performed By: #### C UU #### [address] Glucose [Mass/Vol] 184 mg/dL Normal [facility] Comment on above: Result Comment: [place] om Glucose Reference Range is dependent on time and content of last meal. Glucose of more than 200 mg/dL in a nonstressed, ambulatory subject supports the diagnosis of Diabetes Mellitus. PERFORMED BY: [place] [address] PATHOLOGIST [employer] HYACINTH SHAH M.D. Performed By: #### C UU #### [address] Hematocrit Auto (Bld) [Volum e fraction]Ordered By: Neno Moreira on 03-19-2022 Hematocrit (Bld) [Volume fraction] 35.5 % 38.8-50.0 [facility] Hemoglobin [Mass/volume] in BloodOrdered By: Neno Moreira on 03-19-2022 Hemoglobin (Bld) [Mass/Vol] 12.0 g/dL 13.0-17.0 [facility] Laboratory - Hematology and Cell countsOrdered By: Neno Moreira on 03-19-2022 Nucleated RBC/100 WBC (Bld) [Ratio] 0.1 % 0-0.5 [facility] Leukocytes [#/volume] in Blo od by Automated countOrdered By: Neno Moreira on 03-19-2022 WBC (Bld) [#/Vol] 4.9 10*3/uL 4.5-11.0 [facility] Lymphocytes Auto (Bld) [#/Vo l]Ordered By: Obaydah Daromar on 03-19-2022 Lymphocytes (Bld) [#/Vol] 1.0 10*3/uL 1.00-4.8 [facility] Lymphocytes/100 WBC Auto (Bl d)Ordered By: Obaydah Daromar on 03-19-2022 Lymphocytes/100 WBC (Bld) 20.4 % . [facility] MCH Auto (RBC) [Entitic mass ]Ordered By: Obaydah Daromar on 03-19-2022 MCH (RBC) [Entitic mass] 29.9 pg 27.5-35.2 [facility] MCHC Auto (RBC) [Mass/Vol]Or dered By: Obaydah Daromar on 03-19-2022 MCHC (RBC) [Mass/Vol] 33.9 g/dL 32.5-35.[address] [facility] MCV Auto (RBC) [Entitic vol] Ordered By: Obaydah Daromar on 03-19-2022 MCV (RBC) [Entitic vol] 88.3 fL 83.5-101 [facility] Monocytes Auto (Bld) [#/Vol] Ordered By: Obaydah Daromar on 03-19-2022 Monocytes (Bld) [#/Vol] 0.6 10*3/uL 0.0-0.8 [facility] Monocytes/100 WBC Auto (Bld) Ordered By: Obaydah Daromar on 03-19-2022 Monocytes/100 WBC (Bld) 12.2 % . [facility] Neutrophils Auto (Bld) [#/Vo l]Ordered By: Obaydah Daromar on 03-19-2022 Neutrophils (Bld) [#/Vol] 3.3 10*3/uL 1.8-7.7 [facility] Neutrophils/100 WBC Auto (Bl d)Ordered By: Obaydah Daromar on 03-19-2022 Neutrophils/100 WBC (Bld) 66.2 % . [facility] No Panel InformationOrdered By: Neno Moreira on 03-19-2022 Estimated GFR () > 60 mL/Min [facility] Comment on above: GFR estimated refere nce range: According to KDOQI guidelines, <60 ml/min/1.73m2 is sufficient to diagnose a patient with chronic kidney disease. Pharmacy Creatinine Clearance (Chem 85.68 [facility] Platelet mean volume Auto (B ld) [Entitic vol]Ordered By: Neno Moreira on 03-19-2022 Platelet mean volume (Bld) [Entitic vol] 8.3 fL 6.6-10.1 [facility] Platelets Auto (Bld) [#/Vol] Ordered By: Neno Moreira on 03-19-2022 Platelets (Bld) [#/Vol] 134 10*3/uL 150-450 [facility] RBC Auto (Bld) [#/Vol]Ordere d By: Neno Moreira on 03-19-2022 RBC (Bld) [#/Vol] 4.02 10*6/uL 3.90-5.60 [facility] Serum or plasma anion gap de terminationOrdered By: Neno Moreira on 03-19-2022 Anion gap [Moles/Vol] 9.6 mmol/L 6.0-15.[address] [facility] Serum or plasma calcium ruma urement (mass/volume)Ordered By: Neno Moreira on 03-19-2022 Calcium [Mass/Vol] 8.2 mg/dL 8.2-10.2 [facility] Serum or plasma chloride gonzalez surement (moles/volume)Ordered By: Neno Moreira on 03-19-2022 Chloride [Moles/Vol] 104 mmol/L 95-114 [facility] Serum or plasma glucose ruma urement (mass/volume)Ordered By: Neno Moreira on 03-19-2022 Glucose [Mass/Vol] 203 mg/dL 70-100 [facility] Comment on above: ADA recommended refe rence rangeRandom Glucose Reference Range is dependent on time and content of last meal. Glucose of more than 200 mg/dL in a nonstressed, ambulatory subject supports the diagnosis of Diabetes Mellitus. Serum or plasma potassium me asurement (moles/volume)Ordered By: Neno Moreira on 03-19-2022 Potassium [Moles/Vol] 3.7 mmol/L 3.5-5.[address] [facility] Serum or plasma sodium measu rement (moles/volume)Ordered By: Neno Moreira on 03-19-2022 Sodium [Moles/Vol] 137 mmol/L 136-146 [facility] Serum or plasma total carbon dioxide measurement (moles/volume)Ordered By: Neno Moreira on 03-19-2022 CO2 [Moles/Vol] 27.1 mmol/L 22.0-30.0 [facility] Serum or plasma urea nitroge n measurement (mass/volume)Ordered By: Neno Moreira on 03-19-2022 Urea nitrogen [Mass/Vol] 11 mg/dL 9-23 [facility] Troponin I High Sensitivityo n 03-19-2022 Troponin I High Sensitivity 1882 pg/mL Off scale high 0-20 [facility] Comment on above: Result Comment: Resu lts called at 0708 on 03/19/22 PERFORMED BY: [place] [address] PATHOLOGIST [employer] HYACINTH SHAH M.D. Performed By: #### B MP, MG, LIPID, A1C WTH eA, CBC #### [address] Troponin I.cardiac [Mass/vol ume] in Serum or Plasma by High sensitivity methodOrdered By: Neno Moreira on 03-19-2022 Troponin I.cardiac High sensitivity method [Mass/Vol] 1882 pg/mL 0-20 [facility] Comment on above: Results calledat 070 8 on 03/19/22 Urine culture routineOrdered By: Paulina Alexander on 03-19-2022 Bacteria identified Cx Nom (U) 2 Days [facility] Activated partial thrombopla stin time (aPTT) in platelet poor plasma by coagulation aOrdered By: Paulina Alexander on 03-18-2022 aPTT Coag (PPP) [Time] 26.2 s 25.1-36.5 [facility] Basic Metabolic Panelon Anion gap [Moles/Vol] 7.9 mmol/L Normal 6.0-15.[address] [facility] Comment on above: Performed By: #### B MP, MG, LIPID, A1C WTH eA, CBC #### [facility] [address] Calcium [Mass/Vol] 7.9 mg/dL Low 8.2-10.2 [facility] Comment on above: Performed By: #### B MP, MG, LIPID, A1C WTH eA, CBC #### [facility] [address] Chloride [Moles/Vol] 106 mmol/L Normal 95-114 [facility] Comment on above: Performed By: #### B MP, MG, LIPID, A1C WTH eA, CBC #### [facility] [address] CO2 [Moles/Vol] 24.9 mmol/L Normal 22.0-30.0 [facility] Comment on above: Performed By: #### B MP, MG, LIPID, A1C WTH eA, CBC #### [facility] [address] Creatinine [Mass/Vol] 0.80 mg/dL Normal 0.64-1.[address] [facility] Comment on above: Performed By: #### B MP, MG, LIPID, A1C WTH eA, CBC #### [facility] [address] [place] [address] [place] Creatinine Clr Calc Pharmacy 78.14 Normal [facility] Comment on above: Result Comment: PERF ORMED BY: [place] [address] PATHOLOGIST [employer] HYACIN[employer] SHAH M.D. Performed By: #### B MP, MG, LIPID, A1C WTH eA, CBC #### [facility] [address] [place] [address] [place] Estimated GFR ( Lilia > 60 Normal [facility] Comment on above: Result Comment: GFR estimated reference range: According to KDOQI guidelines, <60 ml/min/1.73m2 is sufficient to diagnose a patient with chronic kidney disease. Performed By: #### B MP, MG, LIPID, A1C WTH eA, CBC #### [facility] [address] [place] [address] [place] Estimated GFR (Non- Am > 60 Normal [facility] Comment on above: Performed By: #### B MP, MG, LIPID, A1C WTH eA, CBC #### [facility] [address] [place] [address] [place] Glucose [Mass/Vol] 179 mg/dL High 70-100 [facility] Comment on above: Result Comment: [place] Glucose Reference Range is dependent on time and content of last meal. Glucose of more than 200 mg/dL in a nonstressed, ambulatory subject supports the diagnosis of Diabetes Mellitus. ADA recommended reference range Performed By: #### B MP, MG, LIPID, A1C WTH eA, CBC #### [facility] [address] [place] [address] [place] Potassium [Moles/Vol] 3.8 mmol/L Normal 3.5-5.[address] [facility] Comment on above: Performed By: #### B MP, MG, LIPID, A1C WTH eA, CBC #### [facility] [address] [place] [address] [place] Sodium [Moles/Vol] 135 mmol/L Low 136-146 [facility] Comment on above: Performed By: #### B MP, MG, LIPID, A1C WTH eA, CBC #### [facility] [address] [place] [address] [place] Urea nitrogen [Mass/Vol] 14 mg/dL Normal 9-23 [facility] Comment on above: Performed By: #### B MP, MG, LIPID, A1C WTH eA, CBC #### [facility] [address] [place] [address] [place] Blood Cultureon 03-18-2022 Bacteria identified Cx Nom (Bld) NO GROWTH 5 DAYS PERFORMED BY: [place] [address] PATHOLOGIST [employer] HYACINTH SHAH M.D. [facility] Comment on above: Performed By: #### B MP, MG, LIPID, A1C WTH eA, CBC #### [address] Bacteria identified Cx Nom (Bld) NO GROWTH 5 DAYS PERFORMED BY: [place] [address] PATHOLOGIST [employer] HYACINTH SHAH M.D. [facility] Comment on above: Performed By: #### B MP, MG, LIPID, A1C WTH eA, CBC #### [address] Glucose Poct Glucometerson 1 05-18-2021 Glucose [Mass/Vol] 253 mg/dL Normal [facility] Comment on above: Result Comment: [place] Glucose Reference Range is dependent on time and content of last meal. Glucose of more than 200 mg/dL in a nonstressed, ambulatory subject supports the diagnosis of Diabetes Mellitus. PERFORMED BY: [place] [address] PATHOLOGIST [employer] HYACINTH SHAH M.D. Performed By: #### B MP, MG, LIPID, A1C WTH eA, CBC #### [address] Glucose [Mass/Vol] 225 mg/dL Normal [facility] Comment on above: Result Comment: [place] om Glucose Reference Range is dependent on time and content of last meal. Glucose of more than 200 mg/dL in a nonstressed, ambulatory subject supports the diagnosis of Diabetes Mellitus. PERFORMED BY: [place] [address] PATHOLOGIST [employer] HYACIN[employer] SHAH M.D. Performed By: #### B MP, MG, LIPID, A1C WTH eA, CBC #### [address] Glucose [Mass/Vol] 219 mg/dL Normal [facility] Comment on above: Result Comment: [place] Glucose Reference Range is dependent on time and content of last meal. Glucose of more than 200 mg/dL in a nonstressed, ambulatory subject supports the diagnosis of Diabetes Mellitus. PERFORMED BY: [place] [address] PATHOLOGIST [employer] HYACINTH SHAH M.D. Performed By: #### G LULS #### Point of Care testing , Glucose [Mass/Vol] 172 mg/dL Normal [facility] Comment on above: Result Comment: [facility] Glucose Reference Range is dependent on time and content of last meal. Glucose of more than 200 mg/dL in a nonstressed, ambulatory subject supports the diagnosis of Diabetes Mellitus. PERFORMED BY: [place] [address] PATHOLOGIST [employer] HYACIN[employer] SHAH M.D. Performed By: #### G BIRDIE #### Point of Care testing , Laboratory - CoagulationOrde red By: Paulina Alexander on 03-18-2022 PT Coag (PPP) [Time] 14.0 s 9.0-12.9 [facility] Partial Thromboplastin Timeo n 03-18-2022 aPTT Coag (Bld) [Time] 26.2 s Normal 25.1-36.5 [facility] Comment on above: Result Comment: PERF ORMED BY: [facility] [address] [place] [address] PATHOLOGIST [employer] HYACIN[employer] SHAH M.D. Performed By: #### B MP, MG, LIPID, A1C WTH eA, CBC #### [facility] [address] Platelet adequacy [Presence] in Blood by Light microscopyOrdered By: Paulina Alexandre on 03-18-2022 Platelets LM Ql (Bld) Decreased Normal [facility] Platelet morphology finding [Identifier] in BloodOrdered By: Paulina Alexander on 03-18-2022 Platelet morphology finding Nom (Bld) Normal Normal [facility] Platelet poor plasma interna tional normalized ratio (INR) by coagulation assay (relatOrdered By: Paulina Alexander on 03-18-2022 INR Coag (PPP) [Relative time] 1.2 {INR} [facility] Comment on above: INR Therapeutic Rang e A) Pre- and Peroperative OAT started two weeks before surgery. NOT HIP SURGERY: 1.5 - 2.5 HIP SURGERY: 2 - 3B) Primary and secondary prevention of venous THROMBOSIS: 2 - 3C) Active venous thrombosis, pulmonary embolismand prevention of recurrent venous thrombosis: 2 - 3D) Prevention of arterial thromboembolismincluding patients with mechanical heart valves: 3 - 4.5 Prothrombin Time INRon 03-18 INR Coag (PPP) [Relative time] 1.2 {INR} Normal [facility] Comment on above: Result Comment: INR Therapeutic Range A) Pre- and Peroperative OAT started two weeks before surgery. NOT HIP SURGERY: 1.5 - 2.5 HIP SURGERY: 2 - 3 B) Primary and secondary prevention of venous THROMBOSIS: 2 - 3 C) Active venous thrombosis, pulmonary embolism and prevention of recurrent venous thrombosis: 2 - 3 D) Prevention of arterial thromboembolism including patients with mechanical heart valves: 3 - 4.5 Performed By: #### B MP, MG, LIPID, A1C WTH eA, CBC #### [facility] [address] PT Coag (PPP) [Time] 14.0 s High 9.0-12.9 [facility] Comment on above: Performed By: #### B MP, MG, LIPID, A1C WTH eA, CBC #### [facility] [address] RBC morphologyOrdered By: Jose G Alexander on 03-18-2022 RBC morphology finding Nom (Bld) Normal [facility] Scan and CBCon 03-18-2022 Basophils (Bld) [#/Vol] 0.0 10*3/uL Normal 0.0-0.2 [facility] Comment on above: Performed By: #### B MP, MG, LIPID, A1C WTH eA, CBC #### [facility] [address] [place] [address] [place] Basophils/100 WBC (Bld) 0.3 % Normal . [facility] Comment on above: Performed By: #### B MP, MG, LIPID, A1C WTH eA, CBC #### [facility] [address] [place] [address] Eosinophils (Bld) [#/Vol] 0.1 10*3/uL Normal 0.0-0.45 [facility] Comment on above: Performed By: #### B MP, MG, LIPID, A1C WTH eA, CBC #### [address] Eosinophils/100 WBC (Bld) 0.9 % Normal . [facility] Comment on above: Performed By: #### B MP, MG, LIPID, A1C WTH eA, CBC #### [address] Erythrocyte distribution width (RBC) [Ratio] 13.1 % Normal 12.0-14.8 [facility] Comment on above: Performed By: #### B MP, MG, LIPID, A1C WTH eA, CBC #### [address] Hematocrit (Bld) [Volume fraction] 34.8 % Low 38.8-50.0 [facility] Comment on above: Performed By: #### B MP, MG, LIPID, A1C WTH eA, CBC #### [address] Hemoglobin (Bld) [Mass/Vol] 11.7 g/dL Low 13.0-17.0 [facility] Comment on above: Performed By: #### B MP, MG, LIPID, A1C WTH eA, CBC #### [place] [address] [place] Lymphocytes (Bld) [#/Vol] 0.9 10*3/uL Low 1.00-4.8 [facility] Comment on above: Performed By: #### B MP, MG, LIPID, A1C WTH eA, CBC #### [address] Lymphocytes/100 WBC (Bld) 15.8 % Normal . [facility] Comment on above: Performed By: #### B MP, MG, LIPID, A1C WTH eA, CBC #### [address] MCH (RBC) [Entitic mass] 29.6 pg Normal 27.5-35.2 [facility] Comment on above: Performed By: #### B MP, MG, LIPID, A1C WTH eA, CBC #### [address] MCV (RBC) [Entitic vol] 88.1 fL Normal 83.5-101 [facility] Comment on above: Performed By: #### B MP, MG, LIPID, A1C WTH eA, CBC #### [address] Mean Corpuscular HGB Conc 33.6 g/dL Normal 32.5-35.6 [facility] Comment on above: Performed By: #### B MP, MG, LIPID, A1C WTH eA, CBC #### [address] Monocytes (Bld) [#/Vol] 0.9 10*3/uL High 0.0-0.8 [facility] Comment on above: Performed By: #### B MP, MG, LIPID, A1C WTH eA, CBC #### [address] Monocytes/100 WBC (Bld) 14.2 % Normal . [facility] Comment on above: Performed By: #### B MP, MG, LIPID, A1C WTH eA, CBC #### [address] Neutrophils (Bld) [#/Vol] 4.1 10*3/uL Normal 1.8-7.7 [facility] Comment on above: Performed By: #### B MP, MG, LIPID, A1C WTH eA, CBC #### [address] Neutrophils/100 WBC (Bld) 68.8 % Normal . [facility] Comment on above: Performed By: #### B MP, MG, LIPID, A1C WTH eA, CBC #### [facility] [address] [place] [address] [place] Nucleated RBC/100 WBC (Bld) [Ratio] 0.1 % Normal 0-0.5 [facility] Comment on above: Performed By: #### B MP, MG, LIPID, A1C WTH eA, CBC #### [facility] [address] [place] [address] [place] Platelet Estimate Decreased Low Normal [facility] Comment on above: Performed By: #### B MP, MG, LIPID, A1C WTH eA, CBC #### [facility] [address] Platelet mean volume (Bld) [Entitic vol] 8.6 fL Normal 6.6-10.1 [facility] Comment on above: Performed By: #### B MP, MG, LIPID, A1C WTH eA, CBC #### [address] Platelet Morphology Normal Normal Normal [facility] Comment on above: Result Comment: PERF ORMED BY: [place] [address] PATHOLOGIST [employer] HYACIN[employer] SHAH M.D. Performed By: #### B MP, MG, LIPID, A1C WTH eA, CBC #### [address] Platelets (Bld) [#/Vol] 140 10*3/uL Low 150-450 [facility] Comment on above: Performed By: #### B MP, MG, LIPID, A1C WTH eA, CBC #### [place] [address] [place] RBC (Bld) [#/Vol] 3.95 10*6/uL Normal 3.90-5.60 [facility] Comment on above: Performed By: #### B MP, MG, LIPID, A1C WTH eA, CBC #### [place] [address] [place] RBC morphology finding Nom (Bld) Normal Normal [facility] Comment on above: Performed By: #### B MP, MG, LIPID, A1C WTH eA, CBC #### [facility] [address] WBC (Bld) [#/Vol] 6.0 10*3/uL Normal 4.5-11.0 [facility] Comment on above: Performed By: #### B MP, MG, LIPID, A1C WTH eA, CBC #### [facility] [address] A1C with Estimated Average G hossein 03-17-2022 Glucose [Mass/Vol] 180 mg/dL Normal [facility] Comment on above: Result Comment: PERF ORMED BY: [place] [address] PATHOLOGIST [employer] HYACINTH SHAH M.D. Performed By: #### B MP, MG, LIPID, A1C WTH eA, CBC #### [address] HbA1c (Bld) [Mass fraction] 7.9 % High 4.3-5.6 [facility] Comment on above: Result Comment: Incr eased risk for diabetes: 5.7 - 6.4 diabetes: >6.4 glycemic control for adults with diabetes: <7.0 Performed By: #### B MP, MG, LIPID, A1C WTH eA, CBC #### [facility] [address] [place] [address] Automated erythrocytes count in urine sediment (number/area)Ordered By: Paulina Alexander on 03-17-2022 RBC Auto (Urine sed) [#/Area] 20-49 [HPF] 0-4 [facility] Automated leukocytes count i n urine sediment (number/area)Ordered By: Paulina Alexander on 03-17-2022 WBC Auto (Urine sed) [#/Area] Innumerable [HPF] 0-4 [facility] Automated urine hyaline cast s count (number/volume)Ordered By: Paulina Alexander on 03-17-2022 Hyaline casts Auto (U) [#/Vol] 0-1 [LPF] 0-1 [facility] Basic Metabolic Panelon 11-0 Anion gap [Moles/Vol] 14.1 mmol/L Normal 6.0-15.0 [facility] Comment on above: Performed By: #### B MP, MG, LIPID, A1C WTH eA, CBC #### [facility] [address] Calcium [Mass/Vol] 8.2 mg/dL Normal 8.2-10.2 [facility] Comment on above: Performed By: #### B MP, MG, LIPID, A1C WTH eA, CBC #### [facility] [address] Chloride [Moles/Vol] 98 mmol/L Normal 95-114 [facility] Comment on above: Performed By: #### B MP, MG, LIPID, A1C WTH eA, CBC #### [facility] [address] CO2 [Moles/Vol] 24.2 mmol/L Normal 22.0-30.0 [facility] Comment on above: Performed By: #### B MP, MG, LIPID, A1C WTH eA, CBC #### [facility] [address] Creatinine [Mass/Vol] 1.07 mg/dL Normal 0.64-1.[address] [facility] Comment on above: Performed By: #### B MP, MG, LIPID, A1C WTH eA, CBC #### [facility] [address] [place] [address] [place] Creatinine Clr Calc Pharmacy 58.60 [facility] Comment on above: Performed By: #### B MP, MG, LIPID, A1C WTH eA, CBC #### [facility] [address] Estimated GFR ( Lilia > 60 [facility] [facility] Comment on above: Result Comment: GFR estimated reference range: According to KDOQI guidelines, <60 ml/min/1.73m2 is sufficient to diagnose a patient with chronic kidney disease. Performed By: #### B MP, MG, LIPID, A1C WTH eA, CBC #### [facility] [address] [place] [address] [place] Estimated GFR (Non- Am > 60 Normal [facility] Comment on above: Performed By: #### B MP, MG, LIPID, A1C WTH eA, CBC #### [facility] [address] [place] [address] [place] Glucose [Mass/Vol] 233 mg/dL High 70-100 [facility] Comment on above: Result Comment: [place] Glucose Reference Range is dependent on time and content of last meal. Glucose of more than 200 mg/dL in a nonstressed, ambulatory subject supports the diagnosis of Diabetes Mellitus. ADA recommended reference range Performed By: #### B MP, MG, LIPID, A1C WTH eA, CBC #### [facility] [address] Potassium [Moles/Vol] 4.3 mmol/L Normal 3.5-5.[address] [facility] Comment on above: Performed By: #### B MP, MG, LIPID, A1C WTH eA, CBC #### [facility] [address] Sodium [Moles/Vol] 132 mmol/L Low 136-146 [facility] Comment on above: Performed By: #### B MP, MG, LIPID, A1C WTH eA, CBC #### [facility] [address] Urea nitrogen [Mass/Vol] 16 mg/dL Normal 9-23 [facility] Comment on above: Performed By: #### B MP, MG, LIPID, A1C WTH eA, CBC #### [facility] [address] Bilirubin Test strip Ql (U)O rdered By: Paulina Alexander on 03-17-2022 Bilirubin Ql (U) Negative Negative [facility] Body fluid albumin measureme nt (mass/volume)Ordered By: Paulina Alexander on 03-17-2022 Albumin (Body fld) [Mass/Vol] 2.5 g/dL 3.2-5.5 [facility] Casts typing in urine sedime nt by light microscopyOrdered By: Paulina Alexander on 03-17-2022 Casts LM Nom (Urine sed) None seen [LPF] None Seen [facility] Cholesterol [Mass/volume] in Serum or PlasmaOrdered By: Paulina Alexander on 03-17-2022 Cholesterol [Mass/Vol] 50 mg/dL 140-200 [facility] Comment on above: Chol less than 200 m g/dl low riskChol 201-239 mg/dl borderline riskChol 240 mg/dl and greater high risk Cholesterol in LDL Calc [Mas s/Vol]Ordered By: Paulina Alexander on 03-17-2022 Cholesterol in LDL [Mass/Vol] 12 mg/dL 0-100 [facility] Comment on above: LDL ATP III CLASSIFI CATIONLDL less than 100 mg/dL OptimalLDL 100-129 mg/dL Near or above optimalLDL 130-159 mg/dL Borderline highLDL 160-189 mg/dL HighLDL greater than 189 mg/dL Very high Cholesterol in VLDL Calc [Ma ss/Vol]Ordered By: Paulina Alexander on 03-17-2022 Cholesterol in VLDL [Mass/Vol] 20 mg/dL [facility] Coagulation Profileon 2021 aPTT Coag (Bld) [Time] 42.6 s High 25.1-36.5 [facility] Comment on above: Result Comment: PERF ORMED BY: [place] [address] PATHOLOGIST [employer] HYACINTH SHAH M.D. Performed By: #### B MP, MG, LIPID, A1C WTH eA, CBC #### [facility] [address] [place] [address] INR Coag (PPP) [Relative time] 2.2 {INR} Normal [facility] Comment on above: Result Comment: INR Therapeutic Range A) Pre- and Peroperative OAT started two weeks before surgery. NOT HIP SURGERY: 1.5 - 2.5 HIP SURGERY: 2 - 3 B) Primary and secondary prevention of venous THROMBOSIS: 2 - 3 C) Active venous thrombosis, pulmonary embolism and prevention of recurrent venous thrombosis: 2 - 3 D) Prevention of arterial thromboembolism including patients with mechanical heart valves: 3 - 4.5 Performed By: #### B MP, MG, LIPID, A1C WTH eA, CBC #### [facility] [address] PT Coag (PPP) [Time] 25.3 s High 9.0-12.9 [facility] Comment on above: Performed By: #### B MP, MG, LIPID, A1C WTH eA, CBC #### [facility] [address] Color Auto (U)Ordered By: Jose G Alexander on 03-17-2022 Color (U) Yellow Yellow [facility] Complete Blood Count Auto Di ffon 03-17-2022 Basophils (Bld) [#/Vol] 0.0 10*3/uL Normal 0.0-0.2 [facility] Comment on above: Result Comment: PERF ORMED BY: [place] [address] PATHOLOGIST [employer] HYACINTH SHAH M.D. Performed By: #### B MP, MG, LIPID, A1C WTH eA, CBC #### [address] Basophils/100 WBC (Bld) 0.2 % Normal . [facility] Comment on above: Performed By: #### B MP, MG, LIPID, A1C WTH eA, CBC #### [address] Eosinophils (Bld) [#/Vol] 0.0 10*3/uL Normal 0.0-0.45 [facility] Comment on above: Performed By: #### B MP, MG, LIPID, A1C WTH eA, CBC #### [address] Eosinophils/100 WBC (Bld) 0.0 % Normal . [facility] Comment on above: Performed By: #### B MP, MG, LIPID, A1C WTH eA, CBC #### [address] Erythrocyte distribution width (RBC) [Ratio] 13.1 % Normal 12.0-14.8 [facility] Comment on above: Performed By: #### B MP, MG, LIPID, A1C WTH eA, CBC #### [address] Hematocrit (Bld) [Volume fraction] 35.3 % Low 38.8-50.0 [facility] Comment on above: Performed By: #### B MP, MG, LIPID, A1C WTH eA, CBC #### [address] Hemoglobin (Bld) [Mass/Vol] 11.9 g/dL Low 13.0-17.0 [facility] Comment on above: Performed By: #### B MP, MG, LIPID, A1C WTH eA, CBC #### [address] Lymphocytes (Bld) [#/Vol] 0.9 10*3/uL Low 1.00-4.8 [facility] Comment on above: Performed By: #### B MP, MG, LIPID, A1C WTH eA, CBC #### [address] Lymphocytes/100 WBC (Bld) 13.2 % Normal . [facility] Comment on above: Performed By: #### B MP, MG, LIPID, A1C WTH eA, CBC #### [address] MCH (RBC) [Entitic mass] 30.0 pg Normal 27.5-35.2 [facility] Comment on above: Performed By: #### B MP, MG, LIPID, A1C WTH eA, CBC #### [address] MCV (RBC) [Entitic vol] 89.4 fL Normal 83.5-101 [facility] Comment on above: Performed By: #### B MP, MG, LIPID, A1C WTH eA, CBC #### [address] Mean Corpuscular HGB Conc 33.6 g/dL Normal 32.5-35.6 [facility] Comment on above: Performed By: #### B MP, MG, LIPID, A1C WTH eA, CBC #### [facility] [address] [place] [address] [place] Monocytes (Bld) [#/Vol] 1.0 10*3/uL High 0.0-0.8 [facility] Comment on above: Performed By: #### B MP, MG, LIPID, A1C WTH eA, CBC #### [facility] [address] [place] [address] [place] Monocytes/100 WBC (Bld) 14.6 % Normal . [facility] Comment on above: Performed By: #### B MP, MG, LIPID, A1C WTH eA, CBC #### [facility] [address] [place] [address] [place] Neutrophils (Bld) [#/Vol] 5.1 10*3/uL Normal 1.8-7.7 [facility] Comment on above: Performed By: #### B MP, MG, LIPID, A1C WTH eA, CBC #### [address] Neutrophils/100 WBC (Bld) 72.0 % Normal . [facility] Comment on above: Performed By: #### B MP, MG, LIPID, A1C WTH eA, CBC #### [place] [address] [place] Nucleated RBC/100 WBC (Bld) [Ratio] 0.0 % Normal 0-0.5 [facility] Comment on above: Performed By: #### B MP, MG, LIPID, A1C WTH eA, CBC #### [facility] [address] [place] [address] [place] Platelet mean volume (Bld) [Entitic vol] 7.9 fL Normal 6.6-10.1 [facility] Comment on above: Performed By: #### B MP, MG, LIPID, A1C WTH eA, CBC #### [facility] [address] [place] [address] [place] Platelets (Bld) [#/Vol] 123 10*3/uL Low 150-450 [facility] Comment on above: Performed By: #### B MP, MG, LIPID, A1C WTH eA, CBC #### [address] RBC (Bld) [#/Vol] 3.95 10*6/uL Normal 3.90-5.60 [facility] Comment on above: Performed By: #### B MP, MG, LIPID, A1C WTH eA, CBC #### [address] WBC (Bld) [#/Vol] 7.1 10*3/uL Normal 4.5-11.0 [facility] Comment on above: Performed By: #### B MP, MG, LIPID, A1C WTH eA, CBC #### [address] Basophils (Bld) [#/Vol] 0.0 10*3/uL Normal 0.0-0.2 [facility] Comment on above: Result Comment: PERF ORMED BY: [place] [address] PATHOLOGIST [employer] HYACINTH SHAH M.D. Performed By: #### B MP, MG, LIPID, A1C WTH eA, CBC #### [address] Basophils/100 WBC (Bld) 0.2 % Normal . [facility] Comment on above: Performed By: #### B MP, MG, LIPID, A1C WTH eA, CBC #### [address] Eosinophils (Bld) [#/Vol] 0.0 10*3/uL Normal 0.0-0.45 [facility] Comment on above: Performed By: #### B MP, MG, LIPID, A1C WTH eA, CBC #### [address] Eosinophils/100 WBC (Bld) 0.0 % Normal . [facility] Comment on above: Performed By: #### B MP, MG, LIPID, A1C WTH eA, CBC #### [address] Erythrocyte distribution width (RBC) [Ratio] 12.9 % Normal 12.0-14.8 [facility] Comment on above: Performed By: #### B MP, MG, LIPID, A1C WTH eA, CBC #### [address] Hematocrit (Bld) [Volume fraction] 36.2 % Low 38.8-50.0 [facility] Comment on above: Performed By: #### B MP, MG, LIPID, A1C WTH eA, CBC #### [address] Hemoglobin (Bld) [Mass/Vol] 12.1 g/dL Low 13.0-17.0 [facility] Comment on above: Performed By: #### B MP, MG, LIPID, A1C WTH eA, CBC #### [address] Lymphocytes (Bld) [#/Vol] 0.6 10*3/uL Low 1.00-4.8 [facility] Comment on above: Performed By: #### B MP, MG, LIPID, A1C WTH eA, CBC #### [address] Lymphocytes/100 WBC (Bld) 7.2 % Normal . [facility] Comment on above: Performed By: #### B MP, MG, LIPID, A1C WTH eA, CBC #### [address] MCH (RBC) [Entitic mass] 29.8 pg Normal 27.5-35.2 [facility] Comment on above: Performed By: #### B MP, MG, LIPID, A1C WTH eA, CBC #### [address] MCV (RBC) [Entitic vol] 89.3 fL Normal 83.5-101 [facility] Comment on above: Performed By: #### B MP, MG, LIPID, A1C WTH eA, CBC #### [address] [place] [address] [place] Mean Corpuscular HGB Conc 33.3 g/dL Normal 32.5-35.6 [facility] Comment on above: Performed By: #### B MP, MG, LIPID, A1C WTH eA, CBC #### [address] Monocytes (Bld) [#/Vol] 0.9 10*3/uL High 0.0-0.8 [facility] Comment on above: Performed By: #### B MP, MG, LIPID, A1C WTH eA, CBC #### [place] [address] [place] Monocytes/100 WBC (Bld) 10.2 % Normal . [facility] Comment on above: Performed By: #### B MP, MG, LIPID, A1C WTH eA, CBC #### [address] Neutrophils (Bld) [#/Vol] 7.1 10*3/uL Normal 1.8-7.7 [facility] Comment on above: Performed By: #### B MP, MG, LIPID, A1C WTH eA, CBC #### [address] Neutrophils/100 WBC (Bld) 82.4 % Normal . [facility] Comment on above: Performed By: #### B MP, MG, LIPID, A1C WTH eA, CBC #### [place] [address] [place] Nucleated RBC/100 WBC (Bld) [Ratio] 0.1 % Normal 0-0.5 [facility] Comment on above: Performed By: #### B MP, MG, LIPID, A1C WTH eA, CBC #### [place] [address] [place] Platelet mean volume (Bld) [Entitic vol] 8.0 fL Normal 6.6-10.1 [facility] Comment on above: Performed By: #### B MP, MG, LIPID, A1C WTH eA, CBC #### [address] [address] [place] Platelets (Bld) [#/Vol] 126 10*3/uL Low 150-450 [facility] Comment on above: Performed By: #### B MP, MG, LIPID, A1C WTH eA, CBC #### [address] RBC (Bld) [#/Vol] 4.06 10*6/uL Normal 3.90-5.60 [facility] Comment on above: Performed By: #### B MP, MG, LIPID, A1C WTH eA, CBC #### [facility] [address] [place] [address] WBC (Bld) [#/Vol] 8.6 10*3/uL Normal 4.5-11.0 [facility] Comment on above: Performed By: #### B MP, MG, LIPID, A1C WTH eA, CBC #### [facility] [address] [place] [address] Comprehensive Metabolic Pane mayur 03-17-2022 Albumin [Mass/Vol] 2.5 g/dL Low 3.2-5.5 [facility] Comment on above: Performed By: #### B MP, MG, LIPID, A1C WTH eA, CBC #### [address] Albumin/Globulin [Mass ratio] 0.8 {ratio} Normal [facility] Comment on above: Performed By: #### B MP, MG, LIPID, A1C WTH eA, CBC #### [address] ALP [Catalytic activity/Vol] 56 U/L Normal 32-92 [facility] Comment on above: Performed By: #### B MP, MG, LIPID, A1C WTH eA, CBC #### [address] ALT [Catalytic activity/Vol] 19 U/L Normal 10-60 [facility] Comment on above: Performed By: #### B MP, MG, LIPID, A1C WTH eA, CBC #### [address] [place] [address] [place] Anion gap [Moles/Vol] 13.1 mmol/L Normal 6.0-15.0 [facility] Comment on above: Performed By: #### B MP, MG, LIPID, A1C WTH eA, CBC #### [facility] [address] AST [Catalytic activity/Vol] 37 U/L Normal 10-42 [facility] Comment on above: Performed By: #### B MP, MG, LIPID, A1C WTH eA, CBC #### [facility] [address] [place] [address] Bilirubin [Mass/Vol] 0.6 mg/dL Normal 0.3-1.2 [facility] Comment on above: Performed By: #### B MP, MG, LIPID, A1C WTH eA, CBC #### [address] Calcium [Mass/Vol] 8.4 mg/dL Normal 8.2-10.2 [facility] Comment on above: Performed By: #### B MP, MG, LIPID, A1C WTH eA, CBC #### [facility] [address] [place] [address] Chloride [Moles/Vol] 98 mmol/L Normal 95-114 [facility] Comment on above: Performed By: #### B MP, MG, LIPID, A1C WTH eA, CBC #### [facility] [address] [place] [address] CO2 [Moles/Vol] 21.6 mmol/L Low 22.0-30.0 [facility] Comment on above: Performed By: #### B MP, MG, LIPID, A1C WTH eA, CBC #### [facility] [address] [place] [address] [place] Creatinine [Mass/Vol] 1.04 mg/dL Normal 0.64-1.[address] [facility] Comment on above: Performed By: #### B MP, MG, LIPID, A1C WTH eA, CBC #### [facility] [address] [place] [address] [place] Creatinine Clr Calc Pharmacy 60.29 [facility] Comment on above: Performed By: #### B MP, MG, LIPID, A1C WTH eA, CBC #### [facility] [address] Estimated GFR ( Lilia > 60 [facility] Comment on above: Result Comment: GFR estimated reference range: According to KDOQI guidelines, <60 ml/min/1.73m2 is sufficient to diagnose a patient with chronic kidney disease. Performed By: #### B MP, MG, LIPID, A1C WTH eA, CBC #### [facility] [address] Estimated GFR (Non- Am > 60 [facility] Comment on above: Performed By: #### B MP, MG, LIPID, A1C WTH eA, CBC #### [facility] [address] Globulin (S) [Mass/Vol] 3.1 g/dL [facility] Comment on above: Performed By: #### B MP, MG, LIPID, A1C WTH eA, CBC #### [facility] [address] Glucose [Mass/Vol] 294 mg/dL High 70-100 [facility] Comment on above: Result Comment: [place] Glucose Reference Range is dependent on time and content of last meal. Glucose of more than 200 mg/dL in a nonstressed, ambulatory subject supports the diagnosis of Diabetes Mellitus. ADA recommended reference range Performed By: #### B MP, MG, LIPID, A1C WTH eA, CBC #### [facility] [address] Potassium [Moles/Vol] 3.7 mmol/L Normal 3.5-5.[address] [facility] Comment on above: Performed By: #### B MP, MG, LIPID, A1C WTH eA, CBC #### [facility] [address] Protein [Mass/Vol] 5.6 g/dL Low 6.1-7.9 [facility] Comment on above: Performed By: #### B MP, MG, LIPID, A1C WTH eA, CBC #### [facility] [address] [place] [address] [place] Sodium [Moles/Vol] 129 mmol/L Low 136-146 [facility] Comment on above: Performed By: #### B MP, MG, LIPID, A1C WTH eA, CBC #### [facility] [address] Urea nitrogen [Mass/Vol] 18 mg/dL Normal 9- [facility] Comment on above: Performed By: #### B MP, MG, LIPID, A1C WTH eA, CBC #### [facility] [address] [place] [address] [place] Dipstick and Microscopicon 1 05-17-2021 Appearance (U) Turbid Critically abnormal Clear [facility] Comment on above: Order Comment: Name Collection Type:: Tinsley Catheter Performed By: #### B MP, MG, LIPID, A1C WTH eA, CBC #### [facility] [address] Bacteria,Urine 2+ High None Seen [facility] Comment on above: Order Comment: Name Collection Type:: Tinsley Catheter Result Comment: --- 03/17/22 0600 --- Ur Bact previously reported as: None Seen Performed By: #### B MP, MG, LIPID, A1C WTH eA, CBC #### [facility] [address] [place] [address] [place] Bilirubin,Urine Negative Normal Negative [facility] Comment on above: Order Comment: Name Collection Type:: Tinsley Catheter Performed By: #### B MP, MG, LIPID, A1C WTH eA, CBC #### [facility] [address] [place] [address] [place] Color (U) Yellow Normal Yellow [facility] Comment on above: Order Comment: Name Collection Type:: Tinsley Catheter Performed By: #### B MP, MG, LIPID, A1C WTH eA, CBC #### [facility] [address] [place] [address] [place] Glucose Ql (U) 250 mg/dL High Normal [facility] Comment on above: Order Comment: Name Collection Type:: Tinsley Catheter Performed By: #### B MP, MG, LIPID, A1C WTH eA, CBC #### [facility] [address] [place] [address] Hyaline Casts,Urine 0-1 Normal 0-1 [facility] Comment on above: Order Comment: Name Collection Type:: Tinsley Catheter Performed By: #### B MP, MG, LIPID, A1C WTH eA, CBC #### [facility] [address] Ketones Ql (U) Negative Normal Negative [facility] Comment on above: Order Comment: Name Collection Type:: Tinsley Catheter Performed By: #### B MP, MG, LIPID, A1C WTH eA, CBC #### [address] Leukocyte esterase Test strip Ql (U) 4+ High Negative [facility] Comment on above: Order Comment: Name Collection Type:: Tinsley Catheter Performed By: #### B MP, MG, LIPID, A1C WTH eA, CBC #### [address] Nitrite,Urine Negative Normal Negative [facility] Comment on above: Order Comment: Name Collection Type:: Tinsley Catheter Performed By: #### B MP, MG, LIPID, A1C WTH eA, CBC #### [address] Occult Blood,Urine 3+ High Negative [facility] Comment on above: Order Comment: Name Collection Type:: Tinsley Catheter Result Comment: PERF ORMED BY: [place] [address] PATHOLOGIST [employer] HYACINTH SHAH M.D. Performed By: #### B MP, MG, LIPID, A1C WTH eA, CBC #### [facility] [address] [place] [address] Other Casts,Urine None Seen Normal None Seen [facility] Comment on above: Order Comment: Name Collection Type:: Tinsley Catheter Performed By: #### B MP, MG, LIPID, A1C WTH eA, CBC #### [facility] [address] pH (U) 5.5 [pH] Normal 5.0-9.0 [facility] Comment on above: Order Comment: Name Collection Type:: Tinsley Catheter Performed By: #### B MP, MG, LIPID, A1C WTH eA, CBC #### [facility] [address] Protein (U) [Mass/Vol] 100 mg/dL High Negative Fi [facility] Comment on above: Order Comment: Name Collection Type:: Tinsley Catheter Performed By: #### B MP, MG, LIPID, A1C WTH eA, CBC #### [facility] [address] RBC,Urine 20-49 High 0-4 [facility] Comment on above: Order Comment: Name Collection Type:: Tinsley Catheter Performed By: #### B MP, MG, LIPID, A1C WTH eA, CBC #### [facility] [address] Specificy [place],Urine 1.017 Normal 1.001-1.03 0 [facility] Comment on above: Order Comment: Name Collection Type:: Tinsley Catheter Performed By: #### B MP, MG, LIPID, A1C WTH eA, CBC #### [facility] [address] Squamous Epithelial Cell,Urine 0-1 Normal 0-2 [facility] Comment on above: Order Comment: Name Collection Type:: Tinsley Catheter Performed By: #### B MP, MG, LIPID, A1C WTH eA, CBC #### [facility] [address] Urobilinogen,Urine Normal Normal Normal [facility] Comment on above: Order Comment: Name Collection Type:: Tinsley Catheter Performed By: #### B MP, MG, LIPID, A1C WTH eA, CBC #### [facility] [address] WBC,Urine Innumerable High 0-4 [facility] Comment on above: Order Comment: Name Collection Type:: Tinsley Catheter Performed By: #### B MP, MG, LIPID, A1C WTH eA, CBC #### [facility] [address] Yeast,Urine None Seen Normal None Seen [facility] Comment on above: Order Comment: Name Collection Type:: Tinsley Catheter Result Comment: PERF ORMED BY: [place] [address] PATHOLOGIST [employer] HYACINTH SHAH M.D. Performed By: #### B MP, MG, LIPID, A1C WTH eA, CBC #### [facility] [address] ECG 12 lead ECGon 03-17-2022 ECG 12 lead ECG [facility] [place] [address] Electrocardiograph Report Signed Patient: Marilu Dan MR#: [id number] 019 : 1950 Acct:[id number] Age/Sex: 71 / M ADM Date: 03/16/22 Loc: Room: 4L7942-0 Type: DIS IN Attending Dr: Neno Moreira MD Ordering Provider: Paulina Walker MD Date of Service: 03/17/2209/02/499 ECG/ECG 12 lead ECG: chest pain Copies to: Test Reason : Blood Pressure : / mmHG Vent. Rate : 077 BPM Atrial Rate : 077 BPM P-R Int : 180 ms QRS Dur : 098 ms QT Int : 432 ms P-R-T Axes : 043 070 080 degrees QTc Int : 488 ms Normal sinus rhythm Septal infarct , age undetermined Abnormal ECG When compared with ECG of 17-MAR-2022 01:39, (Unconfirmed) Left bundle branch block has resolved Septal infarction is now visible Confirmed by ASHLEY DIAZ [facility], CHRISTEL ([id number]) on 03/17/2022 3:00:20 PM Referred By: Electronically Signed By:CHRISTEL RAMIREZ MD FACC Transcribed By: MUS Signed By Christel Ramirez MD, FACC 03/17/22 1500 Normal [facility] ECG 12 lead ECG [facility] Main [place] [id number] Electrocardiograph Report Signed Patient: Marilu Dan MR#: [id number] 019 : 1950 Acct:[id number] Age/Sex: 71 / M ADM Date: 03/16/22 Loc: 4N Room: [address] [place] [place] [address] Type: DIS IN Attending Dr: Neno Moreira MD Ordering Provider: Paulina Walker MD Date of Service: 03/17/2209/02/9 ECG/ECG 12 lead ECG: NSTEMI Copies to: Test Reason : Blood Pressure : / mmHG Vent. Rate : 091 BPM Atrial Rate : 091 BPM P-R Int : 186 ms QRS Dur : 148 ms QT Int : 428 ms P-R-T Axes : 026 091 041 degrees QTc Int : 526 ms Normal sinus rhythm Left bundle branch block Abnormal ECG No previous ECGs available Confirmed by [facility] ([id number][facility] on 03/17/2022 2:59:11 PM Referred By: Electronically Signed By:CHRISTEL RAMIREZ MD [facility] Transcribed By: MUS Signed By Christel Ramirez MD, FACC 03/17/22 1459 Normal [facility] ECG 12 lead ECG [facility] [place] [address] Electrocardiograph Report Signed Patient: Marilu Dan MR#: [id number] 019 : 1950 Acct:[id number] Age/Sex: 71 / M ADM Date: 03/16/22 Loc: 4N Room: [address] [place] [place] [address] Type: DIS IN Attending Dr: Neno Moreira MD Ordering Provider: Neno Moreira MD Date of Service: 03/16/2208/02/2326 ECG/ECG 12 lead ECG: ordered Copies to: Test Reason : Blood Pressure : / mmHG Vent. Rate : 109 BPM Atrial Rate : 109 BPM P-R Int : 184 ms QRS Dur : 146 ms QT Int : 382 ms P-R-T Axes : 043 089 019 degrees QTc Int : 514 ms Sinus tachycardia Nonspecific intraventricular block Abnormal ECG No previous ECGs available Confirmed by [facility] ([id number][facility] on 03/24/2022 5:15:16 PM Referred By: Electronically Signed By:CRISTO SORTO MD [facility] Transcribed By: MUS Signed By Jc Sorto MD 03/24/22 1873 [facility] echo transthoracicon [facility] echo transthoracic [facility] [place] [address] [place] [address] Echocardiogram Signed Patient: Marilu Dan MR#: [id number] 019 : 1950 Acct:[id number] Age/Sex: 71 / M ADM Date: 03/16/22 Loc: Room: [address] [place] [place] [address] Type: DIS IN Attending Dr: Neno Moreira MD Ordering Provider: Paulina Walker MD Date of Service: 03/17/2209/02/29 [facility] echo transthoracic: chest pain Copies to: MD Jc Del Toro MD Weight: 167 lb Performed By: BISI Becerra BSA: 1.8 m2 BP: 96/54 mmHg HR: 75 Reason For Study: chest pain History: CAD. DM. HLD. CABG. Former Smoker. Aortic Valve Replacement. Interpretation Summary Mild concentric left ventricular hypertrophy. Ejection Fraction = 35-40%. A variety of Doppler measurements indicate normal left ventricular diastolic function. The left atrium appears mildly dilated. Bioprosthetic aortic valve. There is trace mitral regurgitation. Procedure/Quality: A two-dimensional transthoracic echocardiogram with color flow and Doppler was performed. The study was technically good in quality. Left Ventricle: The left ventricular size is normal. Mild concentric left ventricular hypertrophy. Ejection Fraction = 35-40%. A variety of Doppler measurements indicate normal left ventricular diastolic function. No left ventricular thrombus or mass is seen. Left Atrium: The left atrium appears mildly dilated. The atrial septum appears normal. Right Atrium: The right atrium appears normal in size. Right Ventricle: The right ventricular size, thickness and function are normal. Aortic Valve: Bioprosthetic aortic valve. Normal prosthetic aortic valve gradient. Mitral Valve: The mitral valve is mildly sclerotic. There is trace mitral regurgitation. Tricuspid Valve: The tricuspid valve is normal. Pulmonic Valve: The pulmonic valve is not well visualized. Arteries: The aortic root is normal size. The aortic arch was visualized and no abnormalities were seen. Pericardium/Pleura: No pericardial effusion seen. There is no pleural effusion. IVC/Hepatic Viens: The inferior vena cava is normal in size, with a normal collapsibility index. Measurements with Normals IVSd: 1.2 cm (0.7-1.1 cm)LVIDd: 4.8 cm (3.7-5.4 cm) LVPWd: 1.1 cm (0.7-1.1 cm)LVIDs: 3.9 cm (2.3-3.6 cm) LA dimension: 4.7 cm (2.3-4.0 cm)Ao root diam: 3.1 cm(2.0-3.6 cm) asc Aorta Diam: 3.4 cm(2.1-3.4cm) Doppler with Normals LV V1 max: 74.1 cm/sec (0.7-1.7m/s)MV E max angle: 81.4 cm/sec(0.8-1.3m/s) MV A max angle: 97.3 cm/sec(0.0-0.0m/s) MV E/A: 0.84 (<1.5) MMode/2D Measurements Calculations RVDd: 2.6 cm FS: 19.0 % Ao root area: LVOT diam: 2.4 cm TAPSE: 1.6 cm EDV(Teich): 7.6 cm2 LVOT area: 4.6 cm2 RV S Angle: 105.7 ml 9.9 cm/sec ESV(Teich): 64.2 ml EF(Teich): 39.3 % __ LVLd ap4: 7.9 cm SV(MOD-sp4): LAV(MOD-sp4): LA A2 area: 16.7 cm2 EDV(MOD-sp4): 22.7 ml 42.5 ml 70.6 ml LAV(MOD-sp2): LA A4 area: 16.9 cm2 LVLs ap4: 6.7 cm 45.7 ml LA length (vol): ESV(MOD-sp4): 5.4 cm 47.9 ml LA vol: 44.3 ml EF(MOD-sp4): 32.2 % LA vol index: 24.2 ml/m2 Doppler Measurements Calculations MV dec time: MV max PG: E/E' lat: 9.6 MV dec slope: 0.23 sec 61.0 mmHg E/E' med: 13.6 361.3 cm/sec2 __ Ao V2 max: LV V1 max PG: MR max angle: RAP systole: 3.0 mmHg 217.2 cm/sec 2.2 mmHg 392.5 cm/sec Ao max PG: LV V1 mean PG: MR max P.9 mmHg 1.1 mmHg 61.6 mmHg Ao mean PG: LV V1 mean: 11.7 mmHg 48.9 cm/sec Ao V2 mean: LV V1 VTI: 17.4 cm 170.9 cm/sec Ao V2 VTI: 56.0 cm STEFANIA(I,D): 1.4 cm2 STEFANIA(V,D): 1.6 cm2 ___ Transcribed By: SCRochelle Performed At: 03/17/22 1005 Signed By: Jc Sorto MD 03/17/22 1122 Normal [facility] Globulin Calc (S) [Mass/Vol] Ordered By: Paulina Alexander on 03-17-2022 Globulin (S) [Mass/Vol] 3.1 g/dL [facility] Glucose Poct Glucometerson 1 05-17-2021 Glucose [Mass/Vol] 267 mg/dL Normal [facility] Comment on above: Result Comment: [facility] Glucose Reference Range is dependent on time and content of last meal. Glucose of more than 200 mg/dL in a nonstressed, ambulatory subject supports the diagnosis of Diabetes Mellitus. PERFORMED BY: [place] [address] [place] [address] PATHOLOGIST [employer] HYACINTH SHAH M.D. Performed By: #### C UU #### [facility] [address] [place] [address] [place] Commemt1 Glu2: Cleaned Meter Normal [facility] Comment on above: Result Comment: PERF ORMED BY: [place] [address] PATHOLOGIST [employer] HYACINTH SHAH M.D. Performed By: #### B MP, MG, LIPID, A1C WTH eA, CBC #### [address] Glucose [Mass/Vol] 131 mg/dL Normal [facility] Comment on above: Result Comment: [place] [facility] Glucose Reference Range is dependent on time and content of last meal. Glucose of more than 200 mg/dL in a nonstressed, ambulatory subject supports the diagnosis of Diabetes Mellitus. Performed By: #### B MP, MG, LIPID, A1C WTH eA, CBC #### [address] Glucose [Mass/Vol] 135 mg/dL Normal [facility] Comment on above: Result Comment: [place] [facility] Glucose Reference Range is dependent on time and content of last meal. Glucose of more than 200 mg/dL in a nonstressed, ambulatory subject supports the diagnosis of Diabetes Mellitus. PERFORMED BY: [place] [address] PATHOLOGIST [employer] HYACINTH SHAH M.D. Performed By: #### B MP, MG, LIPID, A1C WTH eA, CBC #### [address] Glucose [Mass/Vol] 207 mg/dL Normal [facility] Comment on above: Result Comment: [place] [facility] Glucose Reference Range is dependent on time and content of last meal. Glucose of more than 200 mg/dL in a nonstressed, ambulatory subject supports the diagnosis of Diabetes Mellitus. PERFORMED BY: [place] [address] PATHOLOGIST [employer] HYACINTH SHAH M.D. Performed By: #### B MP, MG, LIPID, A1C WT eA, CBC #### [facility] [address] Glucose mean value [Mass/vol ume] in Blood Estimated from glycated hemoglobinOrdered By: Paulina Alexander on 03-17-2022 Average glucose Estimated from glycated hemoglobin (Bld) [Mass/Vol] 180 mg/dL [facility] Hemoglobin A1c percentageOrd ered By: Paulina Alexander on 03-17-2022 HbA1c (Bld) [Mass fraction] 7.9 % 4.3-5.6 [facility] Comment on above: Increased risk for d iabetes: 5.7 - 6.4diabetes: >6.4glycemic control for adults with diabetes: <7.0 Ketones Auto test strip (U) [Mass/Vol]Ordered By: Paulina Alexander on 03-17-2022 Ketones (U) [Mass/Vol] Negative Negative [facility] - Chemistry and C hemistry - challengeOrdered By: Paulina Alexander on 03-17-2022 Magnesium [Mass/Vol] 1.6 mg/dL 1.6-2.6 [facility] Lipid Panelon 03-17-2022 Cholesterol [Mass/Vol] 50 mg/dL Low 140-200 [facility] Comment on above: Result Comment: Chol less than 200 mg/dl low risk Chol 201-239 mg/dl borderline risk Chol 240 mg/dl and greater high risk Performed By: #### B MP, MG, LIPID, A1C WT eA, CBC #### [facility] [address] Cholesterol in HDL [Mass/Vol] 18 mg/dL Low 29-71 [facility] Comment on above: Result Comment: HDL CHOL ATP-III CLASSIFICATION Cardiovascular Risk HDL > or equal to 60 mg/dL LOW HDL < 40 mg/dL HIGH Performed By: #### B MP, MG, LIPID, A1C WTH eA, CBC #### [facility] [address] Cholesterol.total/Chol esterol in HDL [Mass ratio] 2.8 {ratio} Normal <5.0 [facility] Comment on above: Result Comment: PERF ORMED BY: [place] [address] PATHOLOGIST [employer] HYACINTH SHAH M.D. Performed By: #### B MP, MG, LIPID, A1C WTH eA, CBC #### [address] LDL Cholesterol,Calculated 12 mg/dL Normal 0-100 [facility] Comment on above: Result Comment: LDL ATP III CLASSIFICATION LDL less than 100 mg/dL Optimal LDL 100-129 mg/dL Near or above optimal LDL 130-159 mg/dL Borderline high LDL 160-189 mg/dL High LDL greater than 189 mg/dL Very high Performed By: #### B MP, MG, LIPID, A1C WTH eA, CBC #### [address] Triglyceride w/Reflex 100 mg/dL Normal 35-[address] [facility] Comment on above: Result Comment: TRIG ATP III CLASSIFICATION TRIG less than 150 mg/dL Normal TRIG 150-199 mg/dL Borderline high TRIG 200-500 mg/dL High TRIG greater than 500 mg/dL Very high Standard traceable to the Center for Disease Conrtrol and Prevention (CDC) test method. Performed By: #### B MP, MG, LIPID, A1C WTH eA, CBC #### [address] VLDL CHOLESTEROL 20 mg/dL Normal [facility] Comment on above: Performed By: #### B MP, MG, LIPID, A1C WTH eA, CBC #### [address] Magnesiumon 03-17-2022 Magnesium [Mass/Vol] 1.6 mg/dL Normal 1.6-2.6 [facility] Comment on above: Performed By: #### B MP, MG, LIPID, A1C WTH eA, CBC #### [address] Magnesium [Mass/Vol] 1.4 mg/dL Low 1.6-2.6 [facility] Comment on above: Result Comment: PERF ORMED BY: [address] [place] [address] PATHOLOGIST [employer] HYACINTH SHAH M.D. Performed By: #### B MP, MG, LIPID, A1C WT eA, CBC #### [place] [id number] [facility] Nitrite Test strip Ql (U)Ord ered By: Paulina Alexander on 03-17-2022 Nitrite Ql (U) Negative Negative [facility] No Panel InformationOrdered By: Neno Moreira on 03-17-2022 Bedside Glucose Comment Glu2: cleaned meter [facility] Partial Thromboplastin Timeo n 03-17-2022 aPTT Coag (Bld) [Time] 37.1 s High 25.1-36.5 [facility] Comment on above: Result Comment: PERF ORMED BY: [place] [address] PATHOLOGIST [employer] HYACINTH SHAH M.D. Performed By: #### B MP, MG, LIPID, A1C WT eA, CBC #### [address] aPTT Coag (Bld) [Time] 31.8 s Normal 25.1-36.5 [facility] Comment on above: Result Comment: PERF ORMED BY: [place] [address] PATHOLOGIST [employer] HYACINTH SHHA M.D. Performed By: #### B MP, MG, LIPID, A1C WT eA, CBC #### [place] [id number] [facility] Protein Auto test strip (U) [Mass/Vol]Ordered By: Paulina Alexander on 03-17-2022 Protein (U) [Mass/Vol] 100 mg/dL Negative [facility] Protein [Mass/volume] in Ser um or PlasmaOrdered By: Paulina Alexander on 03-17-2022 Protein [Mass/Vol] 5.6 g/dL 6.1-7.9 [facility] Prothrombin Time INRon 03-17 INR Coag (PPP) [Relative time] 1.8 {INR} Normal [facility] Comment on above: Result Comment: INR Therapeutic Range A) Pre- and Peroperative OAT started two weeks before surgery. NOT HIP SURGERY: 1.5 - 2.5 HIP SURGERY: 2 - 3 B) Primary and secondary prevention of venous THROMBOSIS: 2 - 3 C) Active venous thrombosis, pulmonary embolism and prevention of recurrent venous thrombosis: 2 - 3 D) Prevention of arterial thromboembolism including patients with mechanical heart valves: 3 - 4.5 Performed By: #### B MP, MG, LIPID, A1C WTH eA, CBC #### [address] PT Coag (PPP) [Time] 20.5 s High 9.0-12.9 [facility] Comment on above: Performed By: #### B MP, MG, LIPID, A1C WTH eA, CBC #### [facility] [address] [place] [address] Scan and CBCon 03-17-2022 Basophils (Bld) [#/Vol] 0.0 10*3/uL Normal 0.0-0.2 [facility] Comment on above: Performed By: #### B MP, MG, LIPID, A1C WTH eA, CBC #### [address] Basophils/100 WBC (Bld) 0.2 % Normal . [facility] Comment on above: Performed By: #### B MP, MG, LIPID, A1C WTH eA, CBC #### [facility] [address] [place] [address] Eosinophils (Bld) [#/Vol] 0.0 10*3/uL Normal 0.0-0.45 [facility] Comment on above: Performed By: #### B MP, MG, LIPID, A1C WTH eA, CBC #### [address] Eosinophils/100 WBC (Bld) 0.0 % Normal . [facility] Comment on above: Performed By: #### B MP, MG, LIPID, A1C WTH eA, CBC #### [address] Erythrocyte distribution width (RBC) [Ratio] 13.3 % Normal 12.0-14.8 [facility] Comment on above: Performed By: #### B MP, MG, LIPID, A1C WTH eA, CBC #### [address] Hematocrit (Bld) [Volume fraction] 36.0 % Low 38.8-50.0 [facility] Comment on above: Performed By: #### B MP, MG, LIPID, A1C WTH eA, CBC #### [address] Hemoglobin (Bld) [Mass/Vol] 12.1 g/dL Low 13.0-17.0 [facility] Comment on above: Performed By: #### B MP, MG, LIPID, A1C WTH eA, CBC #### [address] Lymphocytes (Bld) [#/Vol] 0.9 10*3/uL Low 1.00-4.8 [facility] Comment on above: Performed By: #### B MP, MG, LIPID, A1C WTH eA, CBC #### [address] Lymphocytes/100 WBC (Bld) 13.3 % Normal . [facility] Comment on above: Performed By: #### B MP, MG, LIPID, A1C WTH eA, CBC #### [address] MCH (RBC) [Entitic mass] 30.0 pg Normal 27.5-35.2 [facility] Comment on above: Performed By: #### B MP, MG, LIPID, A1C WTH eA, CBC #### [address] MCV (RBC) [Entitic vol] 89.0 fL Normal 83.5-101 [facility] Comment on above: Performed By: #### B MP, MG, LIPID, A1C WTH eA, CBC #### [place] [id number] [place] Mean Corpuscular HGB Conc 33.7 g/dL Normal 32.5-35.6 [facility] Comment on above: Performed By: #### B MP, MG, LIPID, A1C WTH eA, CBC #### [facility] [address] Monocytes (Bld) [#/Vol] 0.9 10*3/uL High 0.0-0.8 [facility] Comment on above: Performed By: #### B MP, MG, LIPID, A1C WTH eA, CBC #### [facility] [address] Monocytes/100 WBC (Bld) 14.0 % Normal . [facility] Comment on above: Performed By: #### B MP, MG, LIPID, A1C WTH eA, CBC #### [address] Neutrophils (Bld) [#/Vol] 4.8 10*3/uL Normal 1.8-7.7 [facility] Comment on above: Performed By: #### B MP, MG, LIPID, A1C WTH eA, CBC #### [address] Neutrophils/100 WBC (Bld) 72.5 % Normal . [facility] Comment on above: Performed By: #### B MP, MG, LIPID, A1C WTH eA, CBC #### [place] [address] [place] Nucleated RBC/100 WBC (Bld) [Ratio] 0.0 % Normal 0-0.5 [facility] Comment on above: Performed By: #### B MP, MG, LIPID, A1C WTH eA, CBC #### [place] [address] [place] Platelet Estimate Decreased Normal Normal [facility] Comment on above: Performed By: #### B MP, MG, LIPID, A1C WTH eA, CBC #### [address] Platelet mean volume (Bld) [Entitic vol] 8.0 fL Normal 6.6-10.1 [facility] Comment on above: Performed By: #### B MP, MG, LIPID, A1C WTH eA, CBC #### [address] Platelet Morphology Normal Normal Normal [facility] Comment on above: Result Comment: PERF ORMED BY: [place] [address] PATHOLOGIST [employer] HYACINTH SHAH M.D. Performed By: #### B MP, MG, LIPID, A1C WTH eA, CBC #### [address] Platelets (Bld) [#/Vol] 123 10*3/uL Low 150-450 [facility] Comment on above: Performed By: #### B MP, MG, LIPID, A1C WTH eA, CBC #### [address] RBC (Bld) [#/Vol] 4.04 10*6/uL Normal 3.90-5.60 [facility] Comment on above: Performed By: #### B MP, MG, LIPID, A1C WTH eA, CBC #### [address] RBC morphology finding Nom (Bld) Normal Normal [facility] Comment on above: Performed By: #### B MP, MG, LIPID, A1C WTH eA, CBC #### [address] WBC (Bld) [#/Vol] 6.7 10*3/uL Normal 4.5-11.0 [facility] Comment on above: Performed By: #### B MP, MG, LIPID, A1C WTH eA, CBC #### [address] Serum or plasma alanine gamez otransferase measurement without P-5'-P (enzymatic activiOrdered By: Paulina Alexander on 03-17-2022 ALT No additional P-5'-P [Catalytic activity/Vol] 19 U/L 10-60 [facility] Serum or plasma albumin/glob ulin mass ratioOrdered By: Paulina Alexander on 03-17-2022 Albumin/Globulin [Mass ratio] 0.8 {ratio} [facility] Serum or plasma alkaline adriane sphatase measurement (enzymatic activity/volume)Ordered By: Paulina Alexander on 03-17-2022 ALP [Catalytic activity/Vol] 56 U/L 32-92 [facility] Serum or plasma aspartate am inotransferase measurement (enzymatic activity/volume)Ordered By: Paulina Alexander on 03-17-2022 AST [Catalytic activity/Vol] 37 U/L 10-42 [facility] Serum or plasma high density lipoprotein (HDL) cholesterol measurementOrdered By: Paulina Alexander on 03-17-2022 Cholesterol in HDL [Mass/Vol] 18 mg/dL 29-71 [facility] Comment on above: HDL CHOL ATP-III CLA SSIFICATION Cardiovascular RiskHDL > or equal to 60 mg/dL LOWHDL < 40 mg/dL HIGH Serum or plasma total biliru bin measurement (mass/volume)Ordered By: Paulina Alexander on 03-17-2022 Bilirubin [Mass/Vol] 0.6 mg/dL 0.3-1.2 [facility] Serum or plasma total choles terol/high density lipoprotein (HDL) cholesterol mass ratOrdered By: Paulina Alexander on 03-17-2022 Cholesterol.total/Chol esterol in HDL [Mass ratio] 2.8 {ratio} <5.0 [facility] Specific gravity Auto test s trip (U) [Rel density]Ordered By: Paulina Alexander on 03-17-2022 Specific gravity (U) [Rel density] 1.017 1.001-1.03 0 [facility] Squamous epithelial cells de tection in urine sediment by light microscopyOrdered By: Paulina Alexander on 03-17-2022 Epithelial cells.squamous LM Ql (Urine sed) 0-1 [HPF] 0-2 [facility] Triglyceride [Mass/volume] i n Serum or PlasmaOrdered By: Paulina Alexander on 03-17-2022 Triglyceride [Mass/Vol] 100 mg/dL 35-149 [facility] Comment on above: TRIG ATP III CLASSIF ICATIONTRIG less than 150 mg/dL NormalTRIG 150-199 mg/dL Borderline highTRIG 200-500 mg/dL High TRIG greater than 500 mg/dL Very highStandard traceable to the Center for Disease Conrtrol and Prevention (CDC) test method. Troponin I High Sensitivityo n 03-17-2022 Troponin I High Sensitivity 5958 pg/mL Off scale high 0-20 [facility] Comment on above: Result Comment: Resu lts called at 1043 on 03/17/22 PERFORMED BY: [place] [address] PATHOLOGIST [employer] HYACINTH SHAH M.D. Performed By: #### B MP, MG, LIPID, A1C WTH eA, CBC #### [facility] [address] [place], [place] [id number] [facility] Troponin I High Sensitivity 2625 pg/mL Off scale high 0-20 [facility] Comment on above: Result Comment: Resu lts called at 0445 on 03/17/22 PERFORMED BY: [place] [address] PATHOLOGIST [employer] HYACINTH SHAH M.D. Performed By: #### B MP, MG, LIPID, A1C WTH eA, CBC #### [facility] [address] [place], [place] [id number] [facility] Troponin I High Sensitivity 756 pg/mL Off scale high 0-20 [facility] Comment on above: Result Comment: Resu lts called at 0228 on 03/17/22 PERFORMED BY: [place] [address] PATHOLOGIST [employer] HYACINTH HSAH M.D. Performed By: #### B MP, MG, LIPID, A1C WTH eA, CBC #### [facility] [address] [place], [place] [phone] [place] Urine Cultureon 03-17-2022 Bacteria identified Cx Nom (U) <9,000 colonies/ml mixed bacterial skin contaminants 2 Days PERFORMED BY: [place] [address] PATHOLOGIST [employer] HYACINTH SHAH M.D. Normal [facility] Comment on above: Performed By: #### C UU #### [facility] [address] Urine bacteria detection by automated methodOrdered By: Paulina Alexander on 03-17-2022 Bacteria Auto Ql (U) 2+ None Seen [facility] Comment on above: --- 03/17/22 0600 -- -Ur Bact previously reported as: None Seen Urine clarity by refractomet ry automatedOrdered By: Paulina Alexander on 03-17-2022 Clarity Refractometry automated (U) Turbid Clear [facility] Urine glucose measurement by automated test strip (mass/volume)Ordered By: Paulina Alexander on 03-17-2022 Glucose Auto test strip (U) [Mass/Vol] 250 mg/dL Normal [facility] Urine hemoglobin detection b y automated test stripOrdered By: Paulina Alexander on 03-17-2022 Hemoglobin Auto test strip Ql (U) 3+ Negative [facility] Urine leukocyte esterase det ection by automated test stripOrdered By: Paulina Alexander on 03-17-2022 Leukocyte esterase Auto test strip Ql (U) 4+ Negative [facility] Urobilinogen Auto test strip (U) [Mass/Vol]Ordered By: Paulina Alexander on 03-17-2022 Urobilinogen (U) [Mass/Vol] Normal mg/dL Normal [facility] Yeast detection in urine sed iment by light microscopyOrdered By: Paulina Alexander on 03-17-2022 Yeast LM Ql (Urine sed) None seen [HPF] None Seen [facility] pH Auto test strip (U)Ordere d By: Paulina Alexander on 03-17-2022 pH (U) 5.5 [pH] 5.0-9.0 [facility] ACETONE SERUMon 03-16-2022 ACETONE Negative Normal NEGATIVE [facility] Comment on above: Performed By: #### S EDR #### [facility] [address] [place] [address] [address] Julius Greer BLOOD CULTURE ID PANELon A. baumannii Not detected Normal NOT DETECTED [facility] Comment on above: Performed By: #### C BCMAN #### [facility] [address] [place] [address] Dr. Julius Greer Bacteriodes fragilis Not detected Normal NOT DETECTED [facility] Comment on above: Performed By: #### C BCMAN #### [facility] [address] [place] [address] Dr. Julius Greer BCID CONTROLS PASSED Normal [facility] Comment on above: Performed By: #### C BCMAN #### [facility] [address] [place] [address] [address] Julius GAMBLEDBTHD BLOOD CULTURE BOTTLE INFORMATION [facility] Comment on above: Performed By: #### C BCMAN #### [facility] [address] [place] [address] Dr. Julius Greer BCIDHD1 ANTIMICROBIAL RESIST ANCE GENES [facility] Comment on above: Performed By: #### C BCMAN #### [facility] [address] [place] [address] Dr. Julius Greer BCIDHD2 SEE BELOW [facility] Comment on above: Result Comment: Note : Antimicrobial resitance can occur via multiple mechanisms. A Not Detected result for the [employer] antomicrobial resistance gene assays does not indicate antimicrobial susceptibility. Subculturing is required for species identification and susceptibility testing of isolates. Performed By: #### C BCMAN #### [facility] [address] [place] [address] Dr. Julius Greer BCIDHD3 Positive [facility] Comment on above: Performed By: #### C BCMAN #### [facility] [address] [place] [address] Dr. Julius Greer BCIDHD4 [address] [facility] Comment on above: Performed By: #### C BCMAN #### [facility] [address] [place] [address] Dr. Julius Greer BCIDHD5 YEAST [facility] Comment on above: Performed By: #### C BCMAN #### [facility] [address] [place] [address] Dr. Julius Greer Bottle Set: Set 2 [facility] Comment on above: Performed By: #### C BCMAN #### [facility] [address] [place] [address] Dr. Julius Greer Bottle: Aerobic Normal [facility] Comment on above: Performed By: #### C BCMAN #### [facility] [address] [place] [address] Dr. Julius Greer C. neoformans/gattii Not detected Normal NOT DETECTED [facility] Comment on above: Performed By: #### C BCMAN #### [facility] [address] [place] [address] Dr. Julius Greer Sally albicans Not detected Normal NOT DETECTED [facility] Comment on above: Performed By: #### C BCMAN #### [facility] [address] [place] [address] Dr. Julius Greer Sally auris Not detected Normal NOT DETECTED [facility] Comment on above: Performed By: #### C BCMAN #### [facility] [address] [place] [address] Dr. Julius Greer Sally glabrata Not detected Normal NOT DETECTED [facility] Comment on above: Performed By: #### C BCMAN #### [facility] [address] [place] [address] Dr. Julius Greer Sally Krusei Not detected Normal NOT DETECTED [facility] Comment on above: Performed By: #### C BCMAN #### [facility] [address] [place] [address] Dr. Julius Greer Sally Parapsilosis Not detected Normal NOT DETECTED [facility] Comment on above: Performed By: #### C BCMAN #### [facility] [address] [place] [address] Dr. Julius Greer Sally Tropicalis Not detected Normal NOT DETECTED [facility] Comment on above: Performed By: #### C BCMAN #### [facility] [address] [place] [address] Dr. Julius Greer CTX-M Resistant Gene Not detected Normal NOT DETECTED [facility] Comment on above: Performed By: #### C BCMAN #### [facility] [address] [place] [address] Dr. Julius Greer E. Cloacae complex Not detected Normal NOT DETECTED [facility] Comment on above: Performed By: #### C BCMAN #### [facility] [address] [place] [address] Dr. Julius Greer E. faecalis Not detected Normal NOT DETECTED [facility] Comment on above: Performed By: #### C BCMAN #### [facility] [address] [address] [address] Julius Greer E. faecium Not detected Normal NOT DETECTED [facility] Comment on above: Performed By: #### C BCMAN #### [facility] [address] [place] [address] Dr. Julius Greer Enterobacteriaceae Detected Critically abnormal NOT DETECTED [facility] Comment on above: Performed By: #### C BCMAN #### [facility] [address] [place] [address] Dr. Julius Greer Escherichia coli Not detected Normal NOT DETECTED [facility] Comment on above: Performed By: #### C BCMAN #### [facility] [address] [place] [address] Dr. Julius Greer H. influenzae Not detected Normal NOT DETECTED [facility] Comment on above: Performed By: #### C BCMAN #### [facility] [address] [place] [address] Dr. Julius Greer IMP Resistant Gene Not detected Normal NOT DETECTED [facility] Comment on above: Performed By: #### C BCMAN #### [facility] [address] [place] [address] Dr. Julius Greer K. oxytoca Not detected Normal NOT DETECTED [facility] Comment on above: Performed By: #### C BCMAN #### [facility] [address] [address] [address] Julius Greer K. pneumoniae Not detected Normal NOT DETECTED [facility] Comment on above: Performed By: #### C BCMAN #### [facility] [address] [address] [address] Julius Greer Klebsiella aerogenes Not detected Normal NOT DETECTED [facility] Comment on above: Performed By: #### C BCMAN #### [facility] [address] [place] [address] Dr. Julius Greer KPC Resistant Gene Not detected Normal NOT DETECTED [facility] Comment on above: Performed By: #### C BCMAN #### [facility] [address] [place] [address] Dr. Julius Greer List. monocytogenes Not detected Normal NOT DETECTED [facility] Comment on above: Performed By: #### C BCMAN #### [facility] [address] [place] [address] Dr. Julius Greer Mcr-1 Resistant Gene Not Applicable Normal NOT DETECTED [facility] Comment on above: Performed By: #### C BCMAN #### [facility] [address] [place] [address] Dr. Julius Greer mecA/C Not Applicable Normal NOT DETECTED [facility] Comment on above: Performed By: #### C BCMAN #### [facility] [address] [place] [address] Dr. Julius Greer mecA/C MREJ Not Applicable Normal NOT DETECTED [facility] Comment on above: Performed By: #### C BCMAN #### [facility] [address] [place] [address] Dr. Julius Greer N. meningitidis Not detected Normal NOT DETECTED [facility] Comment on above: Performed By: #### C BCMAN #### [facility] [address] [place] [address] Dr. Julius Greer NDM Resistant Gene Not detected Normal NOT DETECTED [facility] Comment on above: Performed By: #### C BCMAN #### [facility] [address] [place] [address] Dr. Julius Greer Oxa-48-like Not detected Normal NOT DETECTED [facility] Comment on above: Performed By: #### C BCMAN #### [facility] [address] [place] [address] Dr. Julius Greer Proteus Detected Critically abnormal NOT DETECTED [facility] Comment on above: Performed By: #### C BCMAN #### [facility] [address] [place] [address] Dr. Julius Greer Pseud. aeruginosa Not detected Normal NOT DETECTED [facility] Comment on above: Performed By: #### C BCMAN #### [facility] [address] [place] [address] Dr. Julius Greer S. maltophilia Not detected Normal NOT DETECTED [facility] Comment on above: Performed By: #### C BCMAN #### [facility] [address] [place] [address] Dr. Julius Greer Salmonella Not detected Normal NOT DETECTED [facility] Comment on above: Performed By: #### C BCMAN #### [facility] [address] [place] [address] Dr. Julius Greer Seratia marcescens Not detected Normal NOT DETECTED [facility] Comment on above: Performed By: #### C BCMAN #### [facility] [address] [place] [address] Dr. Julius Greer Site: Rt Wrist Normal [facility] Comment on above: Performed By: #### C BCMAN #### [facility] [address] [place] [address] Dr. Julius Greer Staph. aureus Not detected Normal NOT DETECTED [facility] Comment on above: Performed By: #### C BCMAN #### [facility] [address] [place] [address] Dr. Julius Greer Staph. epidermidis Not detected Normal NOT DETECTED [facility] Comment on above: Performed By: #### C BCMAN #### [facility] [address] [place] [address] Dr. Julius Greer Staph. lugdunensis Not detected Normal NOT DETECTED [facility] Comment on above: Performed By: #### C BCMAN #### [facility] [address] [place] [address] Dr. Julius Greer Staphylococcus Not detected Normal NOT DETECTED [facility] Comment on above: Performed By: #### C BCMAN #### [facility] [address] [place] [address] Dr. Julius Greer Strep. agalactiae Not detected Normal NOT DETECTED [facility] Comment on above: Performed By: #### C BCMAN #### [facility] [address] [place] [address] Dr. Julius Greer Strep. pneumoniae Not detected Normal NOT DETECTED [facility] Comment on above: Performed By: #### C BCMAN #### [facility] [address] [place] [address] Dr. Julius Greer Strep. pyogenes Not detected Normal NOT DETECTED [facility] Comment on above: Performed By: #### C BCMAN #### [facility] [address] [place] [address] Dr. Julius Greer Streptococcus Not detected Normal NOT DETECTED [facility] Comment on above: Performed By: #### C BCMAN #### [facility] [address] [place] [address] Dr. Julius Greer Alejandra/B Resist. Gene Not Applicable Normal NOT DETECTED [facility] Comment on above: Performed By: #### C BCMAN #### [facility] [address] [place] [address] Dr. Julius Greer VIM Resistant Gene Not detected Normal NOT DETECTED [facility] Comment on above: Performed By: #### C BCMAN #### [facility] [address] [place] [address] Dr. Julius Greer CARDIAC MARKUS 3-6on 2 CK [Catalytic activity/Vol] 130 U/L Normal 39-308 [facility] Comment on above: Performed By: #### C BCMAN #### [facility] [address] [place] [address] Dr. Julius Greer CK.MB [Mass/Vol] 3.69 ng/mL Critically high <=3.60 [facility] Comment on above: Performed By: #### C BCMAN #### [facility] [address] [place] [address] Dr. Julius Greer HSTROP 603.2 pg/mL Critically high 4.0-76.1 [facility] Comment on above: Result Comment: CUT- OFF POINTS HAVE BEEN ESTABLISHED BASED ON THE FOURTH UNIVERSAL DEFINITIONS OF MYOCARDIAL INFARCTION. THE UPPER REFERENCE LIMIT (URL) OF TROPONIN, DEFINED THE 99TH PERCENTILE OF cTnI DISTRIBUTION IN A REFERENCE POPULATION, HAS BEEN CONFIRMED THE DECISION THRESHOLD FOR AK DIAGNOSIS. Performed By: #### C EMETERIO #### [facility] [address] [address] [address] Julius Greer CBC W MANUAL DIFFon 03-16-20 22 ATYPICAL LYMPH # 0.04 103/ul Normal [facility] Comment on above: Performed By: #### C EMETERIO #### [facility] [address] [address] [address] Julius Greer ATYPICAL LYMPH % 1 % Normal [facility] Comment on above: Performed By: #### C EMETERIO #### [facility] [address] [place] [address] Dr. Julius Greer BAND # 0.2 103/ul Normal 0.0-0.3 [facility] Comment on above: Performed By: #### C EMETERIO #### [facility] [address] [place] [address] Dr. Julius Greer BAND % 5 % Normal 0-5 [facility] Comment on above: Performed By: #### C EMETERIO #### [facility] [address] [place] [address] Dr. Julius Greer BASOM # 0.00 103/ul Normal 0.00-0.10 [facility] Comment on above: Performed By: #### C EMETERIO #### [facility] [address] [place] [address] Dr. Julius Greer BASOM % 0.0 % Critically low 0.2-2.0 [facility] Comment on above: Performed By: #### C EMETERIO #### [facility] [address] [place] [address] Dr. Julius Greer BLAST # Normal [facility] Comment on above: Performed By: #### C EMETERIO #### [facility] [address] [place] [address] Dr. Julius Greer BLAST % Normal [facility] Comment on above: Performed By: #### C EMETERIO #### [facility] [address] [place] [address] Dr. Julius Greer CORRECTED WBC Normal 4.0-11.0 [facility] Comment on above: Performed By: #### C EMETERIO #### [facility] [address] [address] [address] Julius Greer EOS # 0.00 103/ul Normal 0.00-0.70 [facility] Comment on above: Performed By: #### C EMETERIO #### [facility] [address] [address] [address] Julius Greer EOS% 0.0 % Critically low 0.9-7.0 [facility] Comment on above: Performed By: #### C EMETERIO #### [facility] [address] [address] [address] Julius Greer HCT 39.8 % Critically low 42.0-54.0 [facility] Comment on above: Performed By: #### C EMETERIO #### [facility] [address] [address] [address] Julius Greer HGB 13.3 g/dl Critically low 14.0-18.0 [facility] Comment on above: Performed By: #### C EMETERIO #### [facility] [address] [address] [address] Julius Greer LYMPHM # 0.43 103/ul Critically low 1.20-3.80 [facility] Comment on above: Performed By: #### Zulema STORM #### [facility] [address] [address] [address] Julius Greer LYMPHM% 11.0 % Critically low 20.5-60.0 [facility] Comment on above: Performed By: #### C EMETERIO #### [facility] [address] [address] [address] Julius Greer MCH 29.9 pg Normal 25.9-34.0 [facility] Comment on above: Performed By: #### C EMETERIO #### [facility] [address] [address] [address] Julius Greer MCHC 33.4 g/dl Normal 29.9-35.2 [facility] Comment on above: Performed By: #### C EMETERIO #### [facility] [address] [place] [address] Dr. Julius Greer MCV 89.4 fL Normal 80.0-94.0 [facility] Comment on above: Performed By: #### C EMETERIO #### [facility] [address] [place] [address] Dr. Julius Greer METAMYELOCYTE # Normal [facility] Comment on above: Performed By: #### C EMETERIO #### [facility] [address] [place] [address] Dr. Julius Greer METAMYELOCYTE % Normal [facility] Comment on above: Performed By: #### C EMETERIO #### [facility] [address] [place] [address] Dr. Julius Greer MONOM# 0.08 103/ul Critically low 0.30-0.80 [facility] Comment on above: Performed By: #### C EMETERIO #### [facility] [address] [place] [address] Dr. Julius Greer MONOM% 2.0 % Normal 1.7-12.0 [facility] Comment on above: Performed By: #### C EMETERIO #### [facility] [address] [place] [address] Dr. Julius Greer MPV 9.6 fL Normal 9.5-13.5 [facility] Comment on above: Performed By: #### C EMETERIO #### [facility] [address] [place] [address] Dr. Julius Greer MYELOCYTE # Normal [facility] Comment on above: Performed By: #### C EMETERIO #### [facility] [address] [place] [address] Dr. Julius Greer MYELOCYTE % Normal [facility] Comment on above: Performed By: #### C EMETERIO #### [facility] [address] [place] [address] Dr. Julius Greer NRBC Normal [facility] Comment on above: Performed By: #### C EMETERIO #### [facility] [address] [place] [address] Dr. Julius Greer PLT 130 103/ul Critically low 150-450 [facility] Comment on above: Performed By: #### C FRANCMAN #### [facility] [address] [address] [address] Julius Greer RBC 4.45 106/ul Critically low 4.70-6.10 [facility] Comment on above: Performed By: #### C FRANCMAN #### [facility] [address] [address] [address] Julius Greer RDW 12.1 % Normal 11.0-15.0 [facility] Comment on above: Performed By: #### C BCMAN #### [facility] [address] [address] [address] Julius Greer SEG # 3.16 103/ul Normal 1.40-6.50 [facility] Comment on above: Performed By: #### C EMETERIO #### [facility] [address] [place] [address] Dr. Julius Greer SEG % 81.0 % Critically high 43.0-75.0 [facility] Comment on above: Performed By: #### C BCMAN #### [facility] [address] [address] [address] Julius Greer WBC 3.9 103/ul Critically low 4.0-11.0 [facility] Comment on above: Performed By: #### C EMETERIO #### [facility] [address] [address] [address] Julius Greer CRPon 03-16-2022 CRP 27.4 mg/dL Critically high <=1.0 [facility] Comment on above: Performed By: #### S EDR #### [facility] [address] [address] [address] ABD/PELVIS WO CONon 03-16 CT ABD/PELVIS WO CON CT ABDOMEN/PELVIS W ITHOUT IV CONTRAST. INDICATION: Fever and chills status post cystoscopy. COMPARISON: 03/03/2022 TECHNIQUE: Contiguous axial images were obtained from the lung bases to the pelvic floor without intravenous or oral contrast. Coronal and sagittal reformations are provided. FINDINGS: LOWER LUNGS: Clear. LIVER/BILIARY TREE: No discrete lesion. No intrahepatic ductal dilatation. GALLBLADDER: No significant gallbladder wall thickening. Cholelithiasis. CBD: Normal CBD. SPLEEN: Normal in size. PANCREAS: No appreciable peripancreatic fluid. No pancreatic ductal dilatation. No discrete lesion. ADRENALS: Normal. KIDNEYS: No hydronephrosis. No radiopaque calculus. STOMACH AND BOWEL: Stomach is unremarkable. No dilated bowel loops. No bowel wall thickening. Colonic diverticulosis. APPENDIX: Not visualized. PERITONEAL CAVITY: There is chronic bilateral perinephric stranding and minimal fluid, which is nonspecific. ABDOMINAL WALL: No subcutaneous stranding. No subcutaneous fluid collection. LYMPH NODES: No mesenteric or retroperitoneal lymphadenopathy by CT criteria. ABDOMINAL AORTA: No aneurysm. PELVIS: Decompressed bladder with Tinsley catheter. No fluid collection in the pelvis. Prostatomegaly. MUSCULOSKELETAL: No acute osseous abnormality. IMPRESSION: 1. No acute abnormality in the abdomen or pelvis. Decompressed bladder with Tinsley catheter. No evidence of bladder perforation. No fluid collection in the pelvis 2. Cholelithiasis without evidence of acute cholecystitis. Electronically authenticated by: DORCAS PATEL Date: 2022-03-16 18:46 Normal [facility]on SARS-CoV-2 (COVID-19) RNA RAYMON+probe Ql (Unsp spec) Not detected Normal NOT DETECTED [facility] Comment on above: Result Comment: When diagnostic testing is negative, the possibility of a false negative should be considered in the context of a patient's recent exposures and the presence of clinical signs and symptoms consistent with SARS-CoV-2. This test is not yet approved or cleared by the [place] FDA. When there are no FDA-approved or cleared tests available, and other criteria are met, FDA can make tests available under an emergency access mechanism called an Emergency Use Authorization (EUA). The EUA for this test is supported by the [place] of Health and Human Service's declaration that circumstances exist to justify the emergency use of in vitro diagnostics for the detection and/or diagnosis of the virus that causes COVID-19. This EUA will remain in effect for the duration of the COVID-19 declaration justifying emergency of IVDs, unless it is terminated or revoked by the FDA (after which the test may no longer be used). Performed By: #### C VDTBH #### [facility] [address] [address] [address] Julius HIGUERA URINE PROFILEon 2 Bilirubin Ql (U) Negative Normal NEGATIVE [facility] Comment on above: Performed By: #### C BCMAN #### [facility] [address] [place] [address] Dr. Julius Greer Clarity (U) CLEAR Normal CLEAR [facility] Comment on above: Performed By: #### C BCMAN #### [facility] [address] [place] [address] Dr. Julius Greer Color (U) DK. ORANGE Abnormal YELLOW [facility] Comment on above: Performed By: #### C FRANCMAN #### [facility] [address] [place] [address] Dr. Julius Greer ERUMICHELLE A micrscopic examina tion will be performed if indicated. Normal [facility] Comment on above: Performed By: #### C FRANCMAN #### [facility] [address] [place] [address] Dr. Julius Greer Glucose Ql (U) 500 mg/dl Abnormal NEGATIVE [facility] Comment on above: Performed By: #### C FRANCMAN #### [facility] [address] [place] [address] Dr. Julius Greer Hemoglobin Ql (U) LARGE Abnormal NEGATIVE [facility] Comment on above: Performed By: #### C FRANCMAN #### [facility] [address] [place] [address] Dr. uJlius Greer Ketones Ql (U) 15 mg/dl Abnormal NEGATIVE [facility] Comment on above: Performed By: #### C FRANCMAN #### [facility] [address] [place] [address] Dr. Julius Greer LEUKOCYTES SMALL Abnormal NEGATIVE [facility] Comment on above: Performed By: #### C FRANCMAN #### [facility] [address] [place] [address] Dr. Julius Greer Nitrite Ql (U) Positive Abnormal NEGATIVE [facility] Comment on above: Performed By: #### C EMETERIO #### [facility] [address] [place] [address] Dr. Julius Greer pH (U) 8.5 [pH] Normal 5-9 [facility] Comment on above: Performed By: #### C EMETERIO #### [facility] [address] [place] [address] Dr. Julius Greer Protein (U) [Mass/Vol] 100 mg/dL Abnormal NEGAT HAYDEE/ TRACE [facility] Comment on above: Performed By: #### C EMETERIO #### [facility] [address] [place] [address] Dr. Julius Greer SPEC GRAVITY 1.020 Normal 1.005-<=1. 025 [facility] Comment on above: Performed By: #### C EMETERIO #### [facility] [address] [place] [address] Dr. Julius Greer UR MICRO IND INDICATED Normal [facility] Comment on above: Performed By: #### C EMETERIO #### [facility] [address] [place] [address] Dr. Julius Greer Urobilinogen Qn (U) 1.0 {Wilson'U}/dL Normal 0.2 - 1. 0 [facility] Comment on above: Performed By: #### C EMETERIO #### [facility] [address] [place] [address] Dr. Julius Greer LACTATE/LACTIC ACIDon 2021 Lactate [Moles/Vol] 2.3 mmol/L Critically high 0.4-1.9 [facility] Comment on above: Performed By: #### C EMETERIO #### [facility] [address] [place] [address] Dr. Julius Greer Lactate [Moles/Vol] 4.1 mmol/L Critically high 0.4-1.9 [facility] Comment on above: Performed By: #### L ACT #### [facility] [address] [place] [address] Dr. Julius Greer PH VENOUS BLOODon 03-16-2022 PCO2 VENOUS 29.6 mmHg Critically low 40.0-52.0 [facility] Comment on above: Performed By: #### P HVEN #### [facility] [address] [place] [address] Dr. Julius Greer pH VENOUS 7.428 Normal 7.330-7.43 0 [facility] Comment on above: Performed By: #### P HVEN #### [facility] [address] [place] [address] Dr. Julius Greer POINT OF CARE GLUCOSEon 11-0 Glucose [Mass/Vol] 314 mg/dL Critically high 74-106 [facility] Comment on above: Performed By: #### P OCGLUC #### [facility] [address] [place] [address] Dr. Julius Greer PROF 14(COMP METB)on 022 Albumin [Mass/Vol] 2.8 g/dL Critically low 3.4-5.0 [facility] [place] [facility] Comment on above: Performed By: #### S EDR #### [facility] [address] [place] [address] Dr. Julius Greer Albumin/Globulin [Mass ratio] 0.8 {ratio} Normal [facility] Comment on above: Performed By: #### S EDR #### [facility] [address] [place] [address] Dr. Julius Greer ALP [Catalytic activity/Vol] 80 U/L Normal 46-116 [facility] Comment on above: Performed By: #### S EDR #### [facility] [address] [place] [address] Dr. Julius Greer ALT [Catalytic activity/Vol] 14 U/L Critically low 16-63 [facility] Comment on above: Performed By: #### S EDR #### [facility] [address] [place] [address] Dr. Julius Greer Anion gap [Moles/Vol] 14.7 mmol/L Normal [facility] Comment on above: Performed By: #### S EDR #### [facility] [address] [place] [address] Dr. Julius Greer AST [Catalytic activity/Vol] 20 U/L Normal 15-37 [facility] Comment on above: Performed By: #### S EDR #### [facility] [address] [address] [address] Julius Greer Bilirubin [Mass/Vol] 0.6 mg/dL Normal 0.2-1.0 [facility] Comment on above: Performed By: #### S EDR #### [facility] [address] [address] [address] Julius Greer Calcium [Mass/Vol] 8.5 mg/dL Normal 8.5-10.1 [facility] Comment on above: Performed By: #### S EDR #### [facility] [address] [place] [address] Dr. Julius Greer Chloride [Moles/Vol] 96 mmol/L Critically low 98-107 [facility] Comment on above: Performed By: #### S EDR #### [facility] [address] [address] [address] Julius Greer CO2 [Moles/Vol] 19.7 mmol/L Critically low 21.0-32.0 [facility] Comment on above: Performed By: #### S EDR #### [facility] [address] [place] [address] Dr. Julius Greer Creatinine [Mass/Vol] 1.26 mg/dL Normal 0.70-1.30 [facility] Comment on above: Performed By: #### S EDR #### [facility] [address] [address] [address] Julius Greer EGFR-AF [facility] >60 Normal >=60 [facility] Comment on above: Performed By: #### S EDR #### [facility] [address] [place] [address] Dr. Julius Greer EGFR-NON AF [facility] 56 mL/min/1.73m2 Critically low >=60 [facility] Comment on above: Performed By: #### S EDR #### [facility] [address] [place] [address] Dr. Julius Greer Globulin (S) [Mass/Vol] 3.6 g/dL Normal [facility] Comment on above: Performed By: #### S EDR #### [facility] [address] [address] [address] Julius Greer Glucose [Mass/Vol] 311 mg/dL Critically high 74-106 [facility] Comment on above: Performed By: #### S EDR #### [facility] [address] [address] [address] Julius Greer Potassium [Moles/Vol] 3.4 mmol/L Critically low 3.5-5.1 [facility] Comment on above: Performed By: #### S EDR #### [facility] [address] [place] [address] Dr. Julius Greer Protein [Mass/Vol] 6.4 g/dL Normal 6.4-8.2 [facility] Comment on above: Performed By: #### S EDR #### [facility] [address] [address] [address] Julius Greer Sodium [Moles/Vol] 127 mmol/L Critically low 136-145 [facility] Comment on above: Performed By: #### S EDR #### [facility] [address] [place] [address] Dr. Julius Greer Urea nitrogen [Mass/Vol] 19.0 mg/dL Critically high 7.0-18.0 [facility] Comment on above: Performed By: #### S EDR #### [facility] [address] [place] [address] Dr. Julius Greer Urea nitrogen/Creatinine [Mass ratio] 15.1 mg/mg Normal [facility] Comment on above: Performed By: #### S EDR #### [facility] [address] [place] [address] Dr. Julius Greer PROTIMEon 03-16-2022 INR Coag (PPP) [Relative time] 1.38 {INR} Normal [facility] Comment on above: Performed By: #### P T, PTT #### [facility] [address] [place] [address] Dr. Julius Greer INR GUIDELINES SEE BELOW Normal [facility] Comment on above: Result Comment: PETROS RED INR: 2.0 - 3.0 CONDITIONS NOT LISTED BELOW 2.5 - 3.5 FOR PROSTHETIC HEART VALVE REPLACEMENT 2.5 - 3.5 RECURRENT THROMBOSIS Performed By: #### P T, PTT #### [facility] [address] [place] [address] Dr. Julius Greer PT Coag (PPP) [Time] 14.6 s Critically high 9.0-11.6 [facility] Comment on above: Performed By: #### P T, PTT #### [facility] [address] [place] [address] Dr. Julius Greer PTTon 03-16-2022 aPTT Coag (Bld) [Time] 36.2 s Normal 22.3-36.2 [facility] Comment on above: Performed By: #### P T, PTT #### [facility] [address] [place] [address] Dr. Julius Greer SED RATE WESTERGRENon 2021 SED RATE 62 mm/hr Critically high <=[address] [facility] Comment on above: Performed By: #### S EDR #### [facility] [address] [place] [address] Dr. Julius Greer TROPONIN, HIGH SENSITIVITYon 03-16-2022 HSTROP 651.3 pg/mL Critically high 4.0-76.1 [facility] Comment on above: Result Comment: CUT- OFF POINTS HAVE BEEN ESTABLISHED BASED ON THE FOURTH UNIVERSAL DEFINITIONS OF MYOCARDIAL INFARCTION. THE UPPER REFERENCE LIMIT (URL) OF TROPONIN, DEFINED THE 99TH PERCENTILE OF cTnI DISTRIBUTION IN A REFERENCE POPULATION, HAS BEEN CONFIRMED THE DECISION THRESHOLD FOR [place] DIAGNOSIS. Performed By: #### S EDR #### [facility] [address] [place] [address] Dr. Julius Greer URINE MICROSCOPIC ONLYon BACTERIA TRACE Abnormal NONE SEEN [facility] Comment on above: Performed By: #### C BCMAN #### [facility] [address] [place] [address] Dr. Julius Greer Bacteria identified Cx Nom (U) INDICATED Normal [facility] Comment on above: Performed By: #### C BCMAN #### [facility] [address] [place] [address] Dr. Julius Greer CAST SEEN Abnormal NONE SEEN [facility] Comment on above: Performed By: #### C BCMAN #### [facility] [address] [place] [address] Dr. Julius Greer Crystals LM Nom (Urine sed) NONE SEEN Normal NONE SEEN [facility] Comment on above: Performed By: #### C BCMAN #### [facility] [address] [place] [address] Dr. Julius Greer Epithelial cells LM Ql (Urine sed) FEW Abnormal NONE SEEN /RARE [facility] Comment on above: Performed By: #### C BCMAN #### [facility] [address] [place] [address] Dr. Julius Greer HYALINE CAST RARE Normal [facility] Comment on above: Performed By: #### C BCMAN #### [facility] [address] [place] [address] Dr. Julius Greer MUCOUS NONE SEEN Normal NONE SEEN [facility] Comment on above: Performed By: #### C BCMAN #### [facility] [address] [place] [address] Dr. Julius Greer RBC 0-2 Normal 0-2 [facility] Comment on above: Performed By: #### C BCMAN #### [facility] [address] [place] [address] Dr. Julius Greer XR CHEST 1 Von 03-16-2022 XR CHEST 1 V ONE-VIEW CHEST RADIOGRAPH, 03/16/2022 5:29 PM EDT COMPARISON: None. CLINICAL HISTORY: Cough, fever, chills and confusion today. Patient is status post cystoscopy with dilation 2 days ago. Also experiencing diarrhea for the last 2 months. Findings and impression: 1. Minimal atelectasis in the left lung base. Lungs otherwise clear. 2. Normal heart size with evidence of prior open heart surgery. 3. No acute osseous abnormality. Electronically authenticated by: Marc SHEARER Date: 2022-03-16 20:19 Normal [facility] CT ABD/PELV WO W CONon 03-06 CT ABD/PELV WO W CON EXAMINATION: CT ABD /PELV WO W CON HISTORY: Calvin hematuria COMPARISON: No relevant comparison available. TECHNIQUE: Axial, Coronal, and Sagittal images were obtained without and/or with IV contrast as indicated by examination type. Dose reduction techniques were achieved by using automated exposure control and/or adjustment of mA and/or kV according to patient size and/or use of iterative reconstruction technique. FINDINGS: LUNG BASES: No visible pulmonary or pleural disease. LIVER: 9 mm hypodensity within posterior right hepatic lobe and 14 mm hypodensity within medial left hepatic lobe favoring a cyst or hemangioma. No enlargement, atrophy, suspicious density, or significant focal lesion. BILIARY: A few 1 mm stones within noninflamed gallbladder. PANCREAS: No lesion, fluid collection, or abnormal duct dilatation. SPLEEN: No enlargement or focal lesion. ADRENALS: No mass or enlargement. KIDNEYS: A few atherosclerotic calcifications within right kidney. No mass, obstruction, or urinary tract calcification bilaterally. BOWEL/MESENTERY: No visible mass, obstruction, or bowel wall thickening. Normal appendix. AORTA/VASCULAR: Moderate atherosclerotic disease of aorta and iliac arteries with marked atherosclerotic narrowing of common femoral arteries bilaterally. RETROPERITONEUM: No mass or adenopathy. LYMPH NODES: No adenopathy. URINARY BLADDER: No visible focal wall thickening, lesion, or calculus. PELVIC ORGANS: No visible mass. Pelvic organs appropriate for patient age. ABDOMINAL WALL: No mass or hernia. BONES: No bony lesion or fracture. OTHER: Negative. IMPRESSION: 1. No urinary tract calculi, mass, obstructive uropathy. 2. Cholelithiasis. 3. 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 Electronically authenticated by: OLIVIA SERRANO Date: 2022-03-06 07:43 Normal [facility] CREATININEon 03-03-2022 Creatinine [Mass/Vol] 0.83 mg/dL Normal 0.70-1.30 [facility] Comment on above: Performed By: #### C STU #### [facility] [address] [place] [address] Dr. Julius Greer EGFR-AF [facility] >60 Normal >=60 [facility] Comment on above: Performed By: #### C STU #### [facility] [address] [place], [place] [address] Dr. Julius Greer EGFR-NON AF [facility] >60 Normal >=60 [facility] Comment on above: Performed By: #### C STU #### [facility] [address] [place], [place] [address] Dr. Julius Greer PTon 12-16-2021 INR Coag (PPP) [Relative time] 1.5 {INR} Normal [facility] Comment on above: Result Comment: Non-therapeutic Range: INR = 0.9-1.2 Therapeutic Range: Moderate Anticoagulant Intensity: INR = 2.0-3.0 High Anticoagulant Intensity: INR = 2.5-3.5 Performed By: #### P T #### [facility] [address] [address] Bar Finish Operator: Michael Méndez MD PT Coag (PPP) [Time] 17.9 s High 11.5-14.2 [facility] Comment on above: Performed By: #### P T #### [facility] [address] [place] [address] Bar Finish Operator: Michael Méndez MD Hemoglobin A1Con 12-02-2021 Glucose [Mass/Vol] 189 mg/dL Normal [facility] Comment on above: Result Comment: The ADA and AACC recommend providing the estimated average glucose result to permit better patient understanding of their HBA1c result. Performed By: #### L IPR, GLYHGB, PSAS #### [address] [address] Bar Finish Operator: Perico Murray MD #### CP, CDP #### [facility] [address] [place] [address] Bar Finish Operator: Michael Méndez MD HbA1c (Bld) [Mass fraction] 8.2 % High 4.0-6.0 [facility] Comment on above: Performed By: #### L IPR, GLYHGB, PSAS #### [address] [place] [address] Bar Finish Operator: Perico Murray MD #### CP, CDP #### [facility] [address] [place] [address] Bar Finish Operator: Michael Méndez MD CBC with Auto Differentialon 12-01-2021 Absolute Eos # 0.06 [facility] Absolute Immature Granulocyte [facility] Absolute Lymph # 1.87 [facility] Absolute [place] # 0.71 [facility] Basophils Absolute [facility] Basophils/100 WBC (Bld) 0 % 0 - 2 % [facility] Eosinophils/100 WBC (Bld) 1 % 1 - 4 % [facility] Hematocrit (Bld) [Volume fraction] 36.5 % Low 40.7 - 50.3 % [facility] Hemoglobin (Bld) [Mass/Vol] 12.0 g/dL Low 13 - 17 g/dL [facility] Immature granulocytes/100 WBC (Bld) 0 % 0 [facility] Interpretation and review of laboratory results Abnormal [facility] Lymphocytes/100 WBC (Bld) 22 % Low 24 - 43 % [facility] MCH (RBC) [Entitic mass] 30.6 pg 25.2 - 33.5 pg [facility] MCHC (RBC) [Mass/Vol] 32.9 g/dL 28.4 - 34.8 g/dL [facility] MCV (RBC) [Entitic vol] 93.1 fL 82.6 - 102.9 fL [facility] Monocytes/100 WBC (Bld) 8 % 3 - 12 % [facility] NRBC Automated 0.0 0.0 per 100 WBC [facility] Platelet distribution width (Bld) [Ratio] 12.4 % 11.8 - 14.4 % [facility] Platelet mean volume (Bld) [Entitic vol] 9.1 fL 8.1 - 13.5 fL [facility] Platelets (Bld) [#/Vol] 204 10*3/uL [facility] RBC (Bld) [#/Vol] 3.92 10*6/uL Low 4.21 - 5.77 m/uL [facility] Segmented neutrophils/100 WBC (Bld) 69 % High 36 - 65 % [facility] Segs Absolute 6.02 [facility] WBC (Bld) [#/Vol] 8.7 10*3/uL [facility] CBC with Diffon 12-01-2021 Abs. Basophil <0.03 Normal 0.00-0.20 [facility] Comment on above: Performed By: #### L IPR, GLYHGB, PSAS #### [address] [address] Bar Finish Operator: Perico Murray MD #### CP, CDP #### [address] [place] [phone] Bar Finish Operator: Michael Méndez MD Abs.Imm.Granulocyte <0.03 Normal 0.00-0.30 [facility] Comment on above: Performed By: #### L IPR, GLYHGB, PSAS #### [address] [id number] Bar Finish Operator: Perico Murray MD #### CP, CDP #### [address] [place] [phone] Bar Finish Operator: Michael Méndez MD Abs.Neutrophil (Seg) 6.02 k/uL Normal 1.50-8.10 [facility] Comment on above: Performed By: #### L IPR, GLYHGB, PSAS #### [address] [address] Bar Finish Operator: Perico Murray MD #### CP, CDP #### [facility] [address] [place] [address] [place] [address] Bar Finish Operator: Michael Méndez MD Basophils/100 WBC (Bld) 0 % Normal 0-2 [facility] Comment on above: Performed By: #### L IPR, GLYHGB, PSAS #### [address] [place] [address] Bar Finish Operator: Perico Murray MD #### CP, CDP #### [facility] [address] [place] [address] Dr. [place], [place] [phone] Bar Finish Operator: Michael Méndez MD Eosinophils (Bld) [#/Vol] 0.06 10*3/uL Normal 0.00-0.44 [facility] Comment on above: Performed By: #### L IPR, GLYHGB, PSAS #### [address] [address] Bar Finish Operator: Perico Murray MD #### CP, CDP #### [facility] [address] [place] [address] Dr. [address] [place] [phone] Bar Finish Operator: Michael Méndez MD Eosinophils/100 WBC (Bld) 1 % Normal 1-4 [facility] Comment on above: Performed By: #### L IPR, GLYHGB, PSAS #### [address] [id number] Bar Finish Operator: Perico Murray MD #### CP, CDP #### [address] [place], [place] [phone] Bar Finish Operator: Michael Méndez MD Erythrocyte distribution width (RBC) [Ratio] 12.4 % Normal 11.8-14.4 [facility] Comment on above: Performed By: #### L IPR, GLYHGB, PSAS #### [address] [id number] Bar Finish Operator: Perico Murray MD #### CP, CDP #### [facility] [address] [place] [address] [place] [address] Bar Finish Operator: Michael Méndez MD Hematocrit (Bld) [Volume fraction] 36.5 % Low 40.7-50.3 [facility] Comment on above: Performed By: #### L IPR, GLYHGB, PSAS #### [address] [place] [address] Bar Finish Operator: Perico Murray MD #### CP, CDP #### [facility] [address] [place] [address] Dr. [place], [place] [phone] Bar Finish Operator: Michael Méndez MD Hemoglobin (Bld) [Mass/Vol] 12.0 g/dL Low 13.0-17.0 [facility] Comment on above: Performed By: #### L IPR, GLYHGB, PSAS #### [address] [address] Bar Finish Operator: Perico Murray MD #### CP, CDP #### [facility] [address] [place] [address] [phone] Bar Finish Operator: Michael Méndez MD Immature granulocytes/100 WBC (Bld) 0 % Normal 0 [facility] Comment on above: Performed By: #### L IPR, GLYHGB, PSAS #### [address] [address] Bar Finish Operator: Perico Murray MD #### CP, CDP #### [facility] [address] [place] [address] [phone] Bar Finish Operator: Michael Méndez MD Lymphocytes (Bld) [#/Vol] 1.87 10*3/uL Normal 1.10-3.70 [facility] Comment on above: Performed By: #### L IPR, GLYHGB, PSAS #### [address] [id number] Bar Finish Operator: Perioc Murray MD #### CP, CDP #### [facility] [address] [place] [address] [phone] Bar Finish Operator: Michael Méndez MD Lymphocytes/100 WBC (Bld) 22 % Low 24-43 [facility] Comment on above: Performed By: #### L IPR, GLYHGB, PSAS #### [address] [place] [address] Bar Finish Operator: Perico Murray MD #### CP, CDP #### [facility] [address] [place] [address] Dr. [place] [place] [phone] Bar Finish Operator: Michael Méndez MD MCH (RBC) [Entitic mass] 30.6 pg Normal 25.2-33.5 [facility] Comment on above: Performed By: #### L IPR, GLYHGB, PSAS #### [address] [address] Bar Finish Operator: Perico Murray MD #### CP, CDP #### [address] [place] [phone] ( Bar Finish Operator: Michael Méndez MD MCHC (RBC) [Mass/Vol] 32.9 g/dL Normal 28.4-34.8 [facility] Comment on above: Performed By: #### L IPR, GLYHGB, PSAS #### [address] [address] Bar Finish Operator: Perico Murray MD #### CP, CDP #### [address] [place] [phone] Bar Finish Operator: Michael Méndez MD MCV (RBC) [Entitic vol] 93.1 fL Normal 82.6-102.9 [facility] Comment on above: Performed By: #### L IPR, GLYHGB, PSAS #### [address] [address] Bar Finish Operator: Perico Murray MD #### CP, CDP #### [address] [place] [phone] Bar Finish Operator: Michael Méndez MD Monocytes (Bld) [#/Vol] 0.71 10*3/uL Normal 0.10-1.20 [facility] Comment on above: Performed By: #### L IPR, GLYHGB, PSAS #### [address] [address] Bar Finish Operator: Perico Murray MD #### CP, CDP #### [facility] [address] [place] [address] Dr. [place] [phone] Bar Finish Operator: Michael Méndez MD Monocytes/100 WBC (Bld) 8 % Normal 3-12 [facility] Comment on above: Performed By: #### L IPR, GLYHGB, PSAS #### [address] [address] Bar Finish Operator: Perico Murray MD #### CP, CDP #### [address] [place] [phone] Bar Finish Operator: Michael Méndez MD Neutrophil (Seg) 69 % High 36-65 [facility] Comment on above: Performed By: #### L IPR, GLYHGB, PSAS #### [address] [address] Bar Finish Operator: Perico Murray MD #### CP, CDP #### [address] [place] [address] Bar Finish Operator: Michael Méndez MD NRBC Automated 0.0 per 100 WBC Normal 0.0 [facility] Comment on above: Performed By: #### L IPR, GLYHGB, PSAS #### [address] [address] Bar Finish Operator: Perico Murray MD #### CP, CDP #### [address] [place] [address] Bar Finish Operator: Michael Méndez MD Platelet mean volume (Bld) [Entitic vol] 9.1 fL Normal 8.1-13.5 [facility] Comment on above: Performed By: #### L IPR, GLYHGB, PSAS #### [address] [place] [address] Bar Finish Operator: Perico Murray MD #### CP, CDP #### [address] [place] [phone] Bar Finish Operator: Michael Méndez MD Platelets (Bld) [#/Vol] 204 10*3/uL Normal 138-453 [facility] Comment on above: Performed By: #### L IPR, GLYHGB, PSAS #### [address] [address] Bar Finish Operator: Perico Murray MD #### CP, CDP #### [address] [place] [phone] ( Bar Finish Operator: Michael Méndez MD RBC (Bld) [#/Vol] 3.92 10*6/uL Low 4.21-5.77 [facility] Comment on above: Performed By: #### L IPR, GLYHGB, PSAS #### [address] [address] Bar Finish Operator: Perico Murray MD #### CP, CDP #### [address] [place] [address] Bar Finish Operator: Michael Méndez MD WBC (Bld) [#/Vol] 8.7 10*3/uL Normal 3.5-11.3 [facility] Comment on above: Performed By: #### L IPR, GLYHGB, PSAS #### [address] [address] Bar Finish Operator: Perico Murray MD #### CP, CDP #### [address] [place] [phone] Bar Finish Operator: Michael Méndez MD Comp Metabolic Profon 2021 (cont.) Normal [facility] Comment on above: Result Comment: Aver age GFR for 70 or more years old: 75 mL/min/1.73sq m Chronic Kidney Disease: <60 mL/min/1.73sq m Kidney failure: <15 mL/min/1.73sq m eGFR calculated using average adult body mass. Additional eGFR calculator available at: http://www.YourStreet/multiple_crcl_2012.htm Performed By: #### L IPR, GLYHGB, PSAS #### [address] [place] [address] Bar Finish Operator: Perico Murray MD #### CP, CDP #### [facility] [address] [place] [address] Dr. [place], [place] [phone] Bar Finish Operator: Michael Méndez MD Albumin [Mass/Vol] 3.7 g/dL Normal 3.5-5.2 [facility] Comment on above: Performed By: #### L IPR, GLYHGB, PSAS #### [address] [address] Bar Finish Operator: Perico Murray MD #### CP, CDP #### [facility] [address] [place] [address] Dr. [place], [place] [phone] Bar Finish Operator: Michael Méndez MD Albumin/Glob Ratio 1.4 Normal 1.0-2.5 [facility] Comment on above: Performed By: #### L IPR, GLYHGB, PSAS #### [id number] [place] [address] Bar Finish Operator: Perico Murray MD #### CP, CDP #### [facility] [address] [place] [address] Dr. [place], [place] [id number] Bar Finish Operator: Michael Méndez MD Alkaline Phos 77 U/L Normal 40-129 [facility] Comment on above: Performed By: #### L IPR, GLYHGB, PSAS #### [id number] [place] [address] Bar Finish Operator: Perico Murray MD #### CP, CDP #### [facility] [address] [place], [place] [phone] Bar Finish Operator: Michael Méndez MD ALT [Catalytic activity/Vol] 15 U/L Normal 5-41 [facility] Comment on above: Performed By: #### L IPR, GLYHGB, PSAS #### [address] [address] Bar Finish Operator: Perico Murray MD #### CP, CDP #### [address] [place], [place] [phone] Bar Finish Operator: Michael Méndez MD Anion gap [Moles/Vol] 11 mmol/L Normal 9-17 [facility] Comment on above: Performed By: #### L IPR, GLYHGB, PSAS #### [address] [address] Bar Finish Operator: Perico Murray MD #### CP, CDP #### [address] [place], [place] [phone] Bar Finish Operator: Michael Méndez MD AST [Catalytic activity/Vol] 14 U/L Normal <40 [facility] Comment on above: Performed By: #### L IPR, GLYHGB, PSAS #### [address] [address] Bar Finish Operator: Perico Murray MD #### CP, CDP #### [address] [place] [address] Bar Finish Operator: Michael Méndez MD Bilirubin [Mass/Vol] 0.35 mg/dL Normal 0.3-1.2 [facility] Comment on above: Performed By: #### L IPR, GLYHGB, PSAS #### [address] [address] Bar Finish Operator: Perico Murray MD #### CP, CDP #### [facility] [address] [place], [place] [phone] Bar Finish Operator: Michael Méndez MD BUN/CRE Ratio 18 Normal 9-20 [facility] Comment on above: Performed By: #### L IPR, GLYHGB, PSAS #### [address] [address] Bar Finish Operator: Perico Murray MD #### CP, CDP #### [address] [place], [place] [phone] Bar Finish Operator: Michael Méndez MD Calcium [Mass/Vol] 8.8 mg/dL Normal 8.6-10.4 [facility] Comment on above: Performed By: #### L IPR, GLYHGB, PSAS #### [address] [address] Bar Finish Operator: Perico Murray MD #### CP, CDP #### [address] [place], [place] [phone] Bar Finish Operator: Michael Méndez MD Chloride [Moles/Vol] 102 mmol/L Normal 98-107 [facility] Comment on above: Performed By: #### L IPR, GLYHGB, PSAS #### [address] [address] Bar Finish Operator: Perico Murray MD #### CP, CDP #### [facility] [address] [place] [address] Dr. [place], [place] [phone] Bar Finish Operator: Michael Méndez MD CO2 [Moles/Vol] 25 mmol/L Normal 20-31 [facility] Comment on above: Performed By: #### L IPR, GLYHGB, PSAS #### [address] [address] Bar Finish Operator: Perico Murray MD #### CP, CDP #### [facility] [address] [place] [address] Dr. [place], [place] [phone] Bar Finish Operator: Michael Méndez MD Creatinine [Mass/Vol] 0.74 mg/dL Normal 0.70-1.20 [facility] Comment on above: Performed By: #### L IPR, GLYHGB, PSAS #### [address] [address] Bar Finish Operator: Perico Murray MD #### CP, CDP #### [address] [place], [place] [phone] Bar Finish Operator: Michael Méndez MD GFR, Amer >60 Normal >60 [facility] Comment on above: Performed By: #### L IPR, GLYHGB, PSAS #### [address] [address] Bar Finish Operator: Perico Murray MD #### CP, CDP #### [facility] [address] [place] [address] Dr. [place], [place] [phone] Bar Finish Operator: Michael Méndez MD GFR,non Amer >60 Normal >60 [facility] Comment on above: Performed By: #### L IPR, GLYHGB, PSAS #### [address] [address] Bar Finish Operator: Perico Murray MD #### CP, CDP #### [address] [place], [place] [phone] Bar Finish Operator: Michael Méndez MD Glucose [Mass/Vol] 182 mg/dL High 70-99 [facility] Comment on above: Performed By: #### L IPR, GLYHGB, PSAS #### [address] [address] Bar Finish Operator: Perico Murray MD #### CP, CDP #### [address] [place] [phone] Bar Finish Operator: Michael Méndez MD Potassium [Moles/Vol] 4.3 mmol/L Normal 3.7-5.3 [facility] Comment on above: Performed By: #### L IPR, GLYHGB, PSAS #### [address] [id number] Bar Finish Operator: Perico Murray MD #### CP, CDP #### [address] [place] [phone] Bar Finish Operator: Michael Méndez MD Protein [Mass/Vol] 6.4 g/dL Normal 6.4-8.3 [facility] Comment on above: Performed By: #### L IPR, GLYHGB, PSAS #### [address] [phone] Bar Finish Operator: Perico Murray MD #### CP, CDP #### [address] [place] [phone] Bar Finish Operator: Michael Méndez MD Sodium [Moles/Vol] 138 mmol/L Normal 135-144 [facility] Comment on above: Performed By: #### L IPR, GLYHGB, PSAS #### [address] [id number] Bar Finish Operator: Perico Murray MD #### CP, CDP #### [address] [place] [address] Bar Finish Operator: Michael Méndez MD Staging: Normal [facility] Comment on above: Result Comment: Stag e 1: Some kidney damage normal GFR Stage 2: Mild kidney damage GFR 60-89 Stage 3: Moderate kidney damage GFR 30-59 Stage 4: Severe kidney damage GFR 15-29 Stage 5: Severe kidney damage GFR <15 ESRD - chronic treatment by dialysis or transplant Performed By: #### L IPR, GLYHGB, PSAS #### [facility] [address] [place], [place] [phone] Bar Finish Operator: Perico Murray MD #### CP, CDP #### [facility] [address] [place] [address] Bar Finish Operator: Michael Méndez MD Urea nitrogen [Mass/Vol] 13 mg/dL Normal 8-23 [facility] Comment on above: Performed By: #### L IPR, GLYHGB, PSAS #### [facility] [address] [place], [place] [phone] Bar Finish Operator: Perico Murray MD #### CP, CDP #### [facility] [address] [place] [address] Bar Finish Operator: Michael Méndez MD Comprehensive Metabolic Pane [facility] 12-01-2021 Albumin [Mass/Vol] 3.7 g/dL 3.5 - 5.2 g/dL [facility] Albumin/Globulin [Mass ratio] 1.4 {ratio} 1 - 2.5 [facility] ALP (Bld) [Catalytic activity/Vol] 77 U/L 40 - 129 U/L [facility] ALT [Catalytic activity/Vol] 15 U/L 5 - 41 U/L [facility] Anion gap [Moles/Vol] 11 mmol/L 9 - 17 mmol/L [facility] AST [Catalytic activity/Vol] 14 U/L NINF - 40 U/L [facility] Bilirubin [Mass/Vol] 0.35 mg/dL 0.3 - 1 .2 mg/dL [facility] Calcium [Mass/Vol] 8.8 mg/dL 8.6 - 10. 4 mg/dL [facility] Chloride [Moles/Vol] 102 mmol/L 98 - 10 7 mmol/L [facility] CO2 [Moles/Vol] 25 mmol/L 20 - 31 mmol/L [facility] Creatinine [Mass/Vol] 0.74 mg/dL 0.7 - 1.2 mg/dL [facility] Free PSA/Total PSA [Mass fraction] 6.4 g/dL 6.4 - 8.3 g/dL [facility] GFR >60 60 - PI NF mL/min [facility] GFR Non- >60 60 - PINF mL/min [facility] Glucose [Mass/Vol] 182 mg/dL High 70 - 99 mg/dL [facility] Interpretation and review of laboratory results Abnormal [facility] Potassium [Moles/Vol] 4.3 mmol/L 3.7 - 5.3 mmol/L [facility] Sodium [Moles/Vol] 138 mmol/L 135 - 144 mmol/L [facility] Urea nitrogen (BldV) [Mass/Vol] 13 mg/dL 8 - 23 mg/dL [facility] Urea nitrogen/Creatinine (Bld) [Mass ratio] 18 9 - 20 [facility] Laboratory - Chemistry and C hemistry - challengeon 12-01-2021 GFR/1.73 sq M.predicted MDRD (S/P/Bld) [Vol rate/Area] [facility] Comment on above: Average GFR for 70 o r more years old: 75 mL/min/1.73sq m Chronic Kidney Disease: <60 mL/min/1.73sq m Kidney failure: <15 mL/min/1.73sq m eGFR calculated using average adult body mass. Additional eGFR calculator available at: http://www.[employer]/multiple_crcl_2012.htm Stage 1: Some kidney damage normal GFR Stage 2: Mild kidney damage GFR 60-89 Stage 3: Moderate kidney damage GFR 30-59 Stage 4: Severe kidney damage GFR 15-29 Stage 5: Severe kidney damage GFR <15 ESRD - chronic treatment by dialysis or transplant Lipid Panelon 12-01-2021 Cholesterol [Mass/Vol] 79 mg/dL NINF - 200 mg/dL [facility] Comment on above: Cholesterol Guidelines: <200 Desirable 200-240 Borderline >240 Undesirable Cholesterol in HDL [Mass/Vol] 30 mg/dL Low 40 - PINF mg/dL [facility] Comment on above: HDL Guidelines: <40 Undesirable 40-59 Borderline >59 Desirable Cholesterol in LDL [Mass/Vol] 29 mg/dL 0 - 130 mg/dL [facility] Comment on above: LDL Guidelines: <100 Desirable 100-129 Near to/above Desirable 130-159 Borderline >159 Undesirable Direct (measured) LDL and calculated LDL are not interchangeable tests. Cholesterol.total/Chol esterol in HDL [Mass ratio] 2.6 {ratio} NINF - 5 [facility] Interpretation and review of laboratory results Abnormal [facility] Triglyceride [Mass/Vol] 100 mg/dL NINF - 150 mg/dL [facility] Comment on above: Triglyceride Guidelines: <150 Desirable 150-199 Borderline 200-499 High >499 Very high Based on AHA Guidelines for fasting triglyceride, February 2012. [facility] Lipid Profileon 12-01-2021 Cholesterol [Mass/Vol] 79 mg/dL Normal <200 [facility] Comment on above: Result Comment: Cholesterol Guidelines: <200 Desirable 200-240 Borderline >240 Undesirable Performed By: #### L IPR, GLYHGB, PSAS #### [address] [address] Bar Finish Operator: Perico Murray MD #### CP, CDP #### [facility] [address] [place] [address] Dr. [place] [phone] Bar Finish Operator: Michael Méndez MD Cholesterol in HDL [Mass/Vol] 30 mg/dL Low >40 [facility] Comment on above: Result Comment: HDL Guidelines: <40 Undesirable 40-59 Borderline >59 Desirable Performed By: #### L IPR, GLYHGB, PSAS #### [address] [address] Bar Finish Operator: Perico Murray MD #### CP, CDP #### [facility] [address] [place] [address] [place] [address] Bar Finish Operator: Michael Méndez MD Cholesterol in LDL [Mass/Vol] 29 mg/dL Normal 0-130 [facility] Comment on above: Result Comment: LDL Guidelines: <100 Desirable 100-129 Near to/above Desirable 130-159 Borderline >159 Undesirable Direct (measured) LDL and calculated LDL are not interchangeable tests. Performed By: #### L IPR, GLYHGB, PSAS #### [address] [address] Bar Finish Operator: Perico Murray MD #### CP, CDP #### [address] [place] [phone] Bar Finish Operator: Michael Méndez MD Cholesterol.total/Chol esterol in HDL [Mass ratio] 2.6 {ratio} Normal <5 [facility] Comment on above: Performed By: #### L IPR, GLYHGB, PSAS #### [address] [address] Bar Finish Operator: Perico Murray MD #### CP, CDP #### [address] [place] [phone] Bar Finish Operator: Michael Méndez MD Triglyceride [Mass/Vol] 100 mg/dL Normal <150 [facility] Comment on above: Result Comment: Triglyceride Guidelines: <150 Desirable 150-199 Borderline 200-499 High >499 Very high Based on AHA Guidelines for fasting triglyceride, February 2012. Performed By: #### L IPR, GLYHGB, PSAS #### [address] [address] Bar Finish Operator: Perico Murray MD #### CP, CDP #### [address] [place] [address] Bar Finish Operator: Michael Méndez MD PSA Screeningon 12-01-2021 [facility] PSA, Screeningon 12-01-2021 Prostatic Spec. Ag 1.23 ng/mL Normal <4.1 [facility] Comment on above: Result Comment: The Davis ECLIA assay is used. Results obtained with different assay methods cannot be used interchangeably. Performed By: #### L IPR, GLYHGB, PSAS #### [address] [place] [address] Bar Finish Operator: Perico Murray MD #### CP, CDP #### [facility] [address] [place] [address] Bar Finish Operator: Michael Méndez MD Otolaryngology Office/Clinic Noteon 07-05-2021 Otolaryngology Office/Clinic Note Chief Complaint Pt states this is my 3 week follow up from my ear surgery History of Present Illness Marilu is a very pleasant 71-year-old gentleman who presents for follow-up. He has left ear antihelix BCC s/p WLE and left supraclavicular FTSG on 06/09/2021 (path: margins negative). He also had a separate left ear helix lesion that was excised (path: actinic keratosis). INTRAOPERATIVE FINDINGS: 1. 1cm left antihelix ulcerative lesion extending on to scaphoid fossa. This was excised and circumferentially margins were negative on frozen. Subperichondrial skin elevation was performed circumferentially for inset of FTSG. 2. Separate 3mm pigmented lesion involving left helix. This was excised and wound was closed primarily after elevation of subperichondrial postauricular skin flap. 3. Left supraclavicular FTSG harvested for reconstruction of left antihelix wound. Subplatysmal flap elevated circumferentially for primary closure of wound. Overall, he has been doing well. His left ear is very tender. He has been taking antibiotics as prescribed. Review of Systems General Adult ROS Fatigue: No Appetite change: No Cardiovascular Chest pain/pressure: No EENMT Ear pain: No Hearing loss: Yes Hoarseness: No Nasal congestion: No Nasal discharge: No Sore_throat: No Tinnitus: Yes Gastrointestinal Genitourinary Hematologic/Lymphatic Musculoskeletal Neurological Psychiatric Respiratory Cough: No Shortness_of_breath: No Skin Physical Exam Vitals & Measurements T: 36.8 ?C (Temporal Artery) HR: 74 (Peripheral) BP: 131/67 HT: 168 cm WT: 84.3 kg WT: 84.3 kg (Dosing) BMI: 29.87 Additional Vitals BP Position/Location: Sitting, Right arm General: No acute distress, alert and oriented x3. Head: Normocephalic, atraumatic. Face: Facial function symmetric and equal bilaterally. Ears: External ears and mastoids appear normal bilaterally. Left FTSG with excellent. Few residual sutures trimmed. Nose: External nasal dorsum is straight. Neck: Left supraclavicular incision healing well. Assessment/Plan 1. Basal cell carcinoma of left ear 2. Skin cancer He has healed very well from surgery. No additional precautions necessary for his left ear. We discussed the risk of developing additional skin cancer given his history of multiple skin cancer. Referral to dermatology for long-term skin surveillance was recommended but he elected to defer. If he changes his mind, encouraged him to call us so that we can coordinate his referral. 3. Calcified granuloma of lung We reviewed the finding on his preoperative chest x-ray which demonstrated 1.2 cm calcified granuloma/nodule. The significant at this is unclear to me. I provided a printout of his x-ray report for him to review with his PCP. We are happy to see him back as needed. Medical Decision Making Chronic conditions NOT treated during this visit that affected my overall medical decision making: [] Treatment plans discussed but not opted for at this time: [] Prescribed medication that requires intensive monitoring for toxicity: [] I have reviewed the patient?s medication list for medication interactions/contraindica tions and/or for upcoming procedures: [yes or no] Time Spent with the Patient I have personally spent [21] minutes on this date, directly related to today's patient visit, including pre and post visit work, for this date of service. Time listed does not include time spent on separately billable services. 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, left (2020) Auriculectomy (Left) (06/09/2021) Skin Graft Full Thickness (06/09/2021) Medications clopidogrel 75 mg oral tablet, 75 mg= 1 tabs, Oral, qAM isosorbide mononitrate 30 mg oral tablet, extended release, 30 mg= 1 tabs, Oral, qAM lisinopril 20 mg oral tablet, 20 mg= 1 tabs, Oral, qAM metFORMIN 500 mg oral tablet, 1000 mg= 2 tabs, Oral, BID metoprolol tartrate 25 mg oral tablet, 37.5 mg= 1.5 tabs, Oral, BID simvastatin 40 mg oral tablet, 40 mg= 1 tabs, Oral, HS (at bedtime) Xarelto 20 mg oral tablet, 20 mg= 1 tabs, Oral, qAM Allergies penicillin (Anaphylactic reaction, Hives) MOST ANTIBIOTICS (Hives) Social History Alcohol Past Employment/School Retired Exercise Home/Environment Lives with Spouse. Living situation: Home/Independent. , Home equipment: Glucose monitoring, Walker/Cane. DOG, 2 CATS Nutrition/Health Type of diet: LACTOSE INTOLERANCE. Diabetic, Caffeine intake amount: 3 CUPS COFFEE, 10 OUNCES POP DAILY. Substance Abuse Denies All Tobacco Former smoker, quit (more content not included)... Normal [facility] Otolaryngology Office/Clinic Noteon 06-14-2021 Otolaryngology Office/Clinic Note Chief Complaint Patient states I am coming in from left ear surgery. History of Present Illness Marilu is a very pleasant 71-year-old gentleman who presents for follow-up. He has left ear antihelix BCC s/p WLE and left supraclavicular FTSG on 06/09/2021 (path: margins negative). He also had a separate left ear helix lesion that was excised (path: actinic keratosis). INTRAOPERATIVE FINDINGS: 1. 1cm left antihelix ulcerative lesion extending on to scaphoid fossa. This was excised and circumferentially margins were negative on frozen. Subperichondrial skin elevation was performed circumferentially for inset of FTSG. 2. Separate 3mm pigmented lesion involving left helix. This was excised and wound was closed primarily after elevation of subperichondrial postauricular skin flap. 3. Left supraclavicular FTSG harvested for reconstruction of left antihelix wound. Subplatysmal flap elevated circumferentially for primary closure of wound. Overall, he has been doing well. His left ear is very tender. He has been taking antibiotics as prescribed. Review of Systems General Cardiovascular EENMT Ear drainage: Yes Ear pain: Yes Hearing loss: Yes Tinnitus: No Gastrointestinal Genitourinary Hematologic/Lymphatic Musculoskeletal Neurological Psychiatric Respiratory Skin Physical Exam Vitals & Measurements HR: 87 (Peripheral) BP: 130/76 Additional Vitals BP Position/Location: Sitting, Right arm General: No acute distress, alert and oriented x3. Head: Normocephalic, atraumatic. Face: Facial function symmetric and equal bilaterally. Ears: External ears and mastoids appear normal bilaterally. Left ear Xeroform bolster removed. Left FTSG with good take. [place] incision healing well. Nose: External nasal dorsum is straight. Neck: Left supraclavicular incision healing well. Pathology 06/09/2021 Microscopic Description (Verified) Parts A/B/C/D/E: Sections of the skin show an ulcerated tumor, consistent with basal cell carcinoma with focal squamous differentiation. Margins of excision are negative for malignancy. Part F: Sections of the skin show hyperkeratosis, parakeratosis and keratinocytic atypia, consistent with actinic keratosis. The lesion extends to the margins of excision. Diagnosis (Verified) Part A: Skin, left ear, antihelix-superior margin, excision with frozen section: Negative for malignancy. Part B: Skin, left ear, antihelix-anterior margin, excision with frozen section: Negative for malignancy. Part C: Skin, left ear, antihelix-inferior margin, excision with frozen section: Negative for malignancy. Part D: Skin, left ear, antihelix-posterior margin, excision with frozen section: Negative for malignancy. Part E: Skin, left ear antihelix, excision with no margins: Basal cell carcinoma with focal squamous differentiation, ulcerated. Solar elastosis. Part F: Skin, left ear helix, excision: Actinic keratosis. Tumor present at the tissue margins. Solar elastosis. Assessment/Plan 1. Basal cell carcinoma of left ear He has healed well from his surgery. His full-thickness skin graft seems to be taking well. Continue with antibiotic ointment 3 times daily to the full-thickness skin graft, helical incision, and supraclavicular incision. Complete clindamycin as directed. We will plan to see him back in 2 weeks for wound check. Medical Decision Making Chronic conditions NOT treated during this visit that affected my overall medical decision making: [] Treatment plans discussed but not opted for at this time: [] Prescribed medication that requires intensive monitoring for toxicity: [] I have reviewed the patient?s medication list for medication interactions/contraindica tions and/or for upcoming procedures: [yes or no] Time Spent with the Patient I have personally spent [15] minutes on this date, directly related to today's patient visit, including pre and post visit work, for this date of service. Time listed does not include time spent on separately billable services. 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 Normal [facility] Operative Reporton Operative Report Operative Report DATE OF SERVICE: 06/09/2021 PATIENT: Marilu Dan PREOPERATIVE DIAGNOSIS: 1. Left ear antihelix basal cell carcinoma 2. Left ear helix lesion POSTOPERATIVE DIAGNOSIS: 1. Left ear antihelix basal cell carcinoma 2. Left ear helix lesion PROCEDURE: 1. Wide local excision of left ear antihelix lesion, approximately 2.5 cm x 2.3 cm 2. Excision of left helix lesion, approximately 1.0 cm x 0.5 cm, with primary closure 3. Reconstruction of left antihelix wound defect using left supraclavicular full thickness skin graft 3.0 cm x 2.0 cm 4. Adjacent tissue advancement of the left supraclavicular wound for primary closure, 4.0 cm x 3.0 cm SURGEON: Gerald Villagomez MD ANESTHESIA: General endotracheal ESTIMATED BLOOD LOSS: 10 mL. COMPLICATIONS: None CONDITION: Stable to PACU. INTRAOPERATIVE FINDINGS: 1. 1cm left antihelix ulcerative lesion extending on to scaphoid fossa. This was excised and circumferentially margins were negative on frozen. Subperichondrial skin elevation was performed circumferentially for inset of FTSG. 2. Separate 3mm pigmented lesion involving left helix. This was excised and wound was closed primarily after elevation of subperichondrial postauricular skin flap. 3. Left supraclavicular FTSG harvested for reconstruction of left antihelix wound. Subplatysmal flap elevated circumferentially for primary closure of wound. INDICATIONS AND CONSENT: Marilu Dan is a 71 Years Old Male who presented to the Otolaryngology clinic nonhealing lesion involving the left ear. A biopsy was performed confirming basal cell carcinoma. They were therefore offered the aforementioned procedures. The procedure, risks, benefits, alternatives, potential complications, possible outcomes as well as the option of no treatment were reviewed with the patient who indicated they understood and wished to proceed forward with the procedure. Informed consent was obtained. DESCRIPTION OF PROCEDURE: On 06/09/2021, the patient was identified in the preoperative area, consent confirmed, and transported to the operating suite. They were then transferred to the operating room table and placed in a supine position. After induction of general endotracheal anesthesia, a proper surgeon initiated time out was performed. We began by designing a 1cm margin around the left anithelix lesion. In addition, a 3mm margin was designed around the left helix lesion. These both were then infiltrated with 1% lidocaine with 1:100,000 epinephrine. After allowing for adequate vasoconstrictive and anesthetic effects, the patient was then prepped and draped in the usual sterile fashion. A 15 blade was used to incise through the marked skin of the left antihelix lesion. The incision was carried down to perichondrium. Next we incised through the jhony cartilage onto the contralateral perichondrium. We then dissected in a subperichondrial plane on the contralateral side of the jhony cartilage. The postauricular skin was kept intact. The specimen was then removed en bloc, oriented, and sent for permanent histopathological analysis. Circumferential margins were then obtained and sent for frozen analysis were negative for additional carcinoma. The final defect for the antihelix wound was approximately 2.5 cm x 2.3 cm. We then used a 15 blade to excise the left helix lesion. For this, the incision was carried down to periosteum but not through the jhony cartilage. We then dissected a subperichondrial plane while maintaining the jhony cartilage intact. This was excised en bloc and sent for permanent histopathological analysis. The final defect of the helix wound was approximately 1.0 cm x 0.5 cm. Subperichondrial flap elevation was performed posteriorly to allow for primary closure of this wound. This was closed using 4-0 Vicryl sutures followed by 5-0 fast plain gut for the skin. Next we proceeded with the reconstruction portion of the procedure. Our initial plan was to use the postauricular full-thickness skin graft but due to concerns of compromising the auricular vascular supply, we elected to use a supraclavicular full-thickness skin graft instead. A supraclavicular full-thickness skin graft was designed for reconstruction of the antihelical wound defect. This was approximately 3.0 cm x 2.0 cm. Using a 15 blade, this was incised down to the deep dermal layer. We then elevated the full-thickness skin graft via this deep dermal layer. The skin graft was saved on the back table. Next we dissected in the subplatysmal plane plane superiorly and inferiorly to allow mobility of the adjacent skin flaps. This allowed advancement of the subplatysmal skin flap for primary closure of the supraclavicular wound. This was closed using 3-0 Vicryl sutures for the subplatysmal layer, 4-0 Vicryl sutures for the deep dermal layer, followed by 5-0 fast plain gut for the skin. The previously harvested full-thickness skin graft was then measured to size and placed over the left antihelix wound defe (more content not included)... Normal [facility] POC Glucose Randomon 022 Glucose [Mass/Vol] 154 mg/dL High 70-99 [facility] Comment on above: Performed By: #### C [id number] #### [address] [address] Glucose [Mass/Vol] 184 mg/dL High 70-99 [facility] Comment on above: Performed By: #### C [id number] #### [address] [place] [address] Glucose [Mass/Vol] 207 mg/dL High 70-99 [facility] Comment on above: Performed By: #### C [id number] #### [address] [address] CoV2 Agon 06-08-2021 Employed in healthcare? Unknown Normal [facility] Comment on above: Performed By: #### P TINR #### [address] [address] Group care resident? Unknown Normal [facility] Comment on above: Performed By: #### P TINR #### [address] [address] In ICU? Unknown Normal [facility] Comment on above: Performed By: #### P TINR #### [address] [address] status? Unknown Normal [facility] Comment on above: Performed By: #### P TINR #### [address] [address] SARS-CoV-2 (COVID-19) RNA RAYMON+probe Ql (Unsp spec) Negative Normal Negative [facility] Comment on above: Result Comment: Nega tive results from patients with symptom onset outside of one to six days should be treated as presumptive. A false-negative test result may occur if the level of viral antigen in a sample is below the detection limit of the test or if the sample was collected or transported improperly; therefore, a negative test result does not eliminate the possibility of SARS-CoV-2 infection. Negative results should not be used as the sole basis for treatment or patient management decisions, including infection control decisions. Negative results should be considered in the context of a patient?s recent exposures, history and the presence of clinical signs and symptoms consistent with COVID-19. ADDITIONAL INFORMATION: Testing performed on the [id number] using the SARS-CoV-2 Antigen test. Results are for the identification of SARS-CoV-2 nucleocapsid antigen. The VITROS SARS-CoV-2 Antigen test can detect both viable and non-viable SARS-CoV-2 material. The VITROS SARS-CoV-2 Antigen test performance depends on antigen load and may not correlate with other diagnostic methods performed on the same specimen. The performance of this test has not been evaluated for use in patients without signs and symptoms of respiratory infection. Test results should be considered in the context of all available clinical and diagnostic information, including patient history and other test results. In the [place], the VITROS SARS-CoV-2 Antigen test is only for use under the Food and Drug Administration?s Emergency Use Authorization. HCP Fact Sheet: https://www.fda.gov/media/094457/download Patient Fact Sheet: https://www.fda.gov/media/588180/download Performed By: #### P TINR #### [place] [address] SARS-CoV-2 (COVID-19) RNA RAYMON+probe Ql (Unsp spec) Unknown Normal [facility] Comment on above: Performed By: #### P TINR #### [address] [address] Symptomatic as defined by CDC? Unknown Normal [facility] Comment on above: Performed By: #### P TINR #### [address] [address] .eGFRon 05-27-2021 eGFR Non-AA >60 Normal >=60 [facility] Comment on above: Result Comment: Stag es of Chronic Kidney Disease GFR Stage 3a Mild to moderate loss of kidney function 59 to 45 Stage 3b Moderate to severe loss of kidney function 44 to 33 Stage 4 Severe loss of kidney function 29 to 15 Stage 5 Kidney failure Less than 15 GFR calculated using the CKD-EPI Creatinine Equation (2009): eGFR = 141 X min(SCr/?, 1)? X max(SCr /?, 1)-1.209 X 0.993Age X 1.018 [if female] X 1.159 [if Black] Abbreviations/Units: eGFR (estimated glomerular filtration rate) = mL/min/1.73 m2 SCr (standardized serum creatinine) = mg/dL ? = 0.7 (females) or 0.9 (males) ? = -0.329 (females) or -0.411 (males) min = indicates the minimum of SCr/? or 1 max = indicates the maximum of SCr/? or 1 age = years Performed By: #### E GFR #### [address] [address] eGFR AA >60 Normal >=60 [facility] Comment on above: Result Comment: See comment. Performed By: #### E GFR #### [address] [address] Basic Metabolic Profileon Anion gap [Moles/Vol] 13 mmol/L Normal 7-17 [facility] Comment on above: Performed By: #### P TINR #### [address] [address] Calcium [Mass/Vol] 9.0 mg/dL Normal 8.5-10.3 [facility] Comment on above: Performed By: #### P TINR #### [address] [address] Chloride [Moles/Vol] 103 mmol/L Normal 98-110 [facility] Comment on above: Performed By: #### P TINR #### [address] [address] CO2 [Moles/Vol] 26 mmol/L Normal 22-32 [facility] Comment on above: Performed By: #### P TINR #### [address] [address] Creatinine [Mass/Vol] 0.91 mg/dL Normal 0.61-1.24 [facility] Comment on above: Performed By: #### P TINR #### [address] [address] Glucose [Mass/Vol] 193 mg/dL High 70-99 [facility] Comment on above: Performed By: #### P TINR #### [address] [address] Potassium [Moles/Vol] 3.9 mmol/L Normal 3.4-4.8 [facility] Comment on above: Performed By: #### P TINR #### [address] [address] Sodium [Moles/Vol] 138 mmol/L Normal 133-142 [facility] Comment on above: Performed By: #### P TINR #### [address] [address] Urea nitrogen [Mass/Vol] 14 mg/dL Normal 8-26 [facility] Comment on above: Performed By: #### P TINR #### [address] [address] Urea nitrogen/Creatinine [Mass ratio] 15.4 mg/mg Normal 10.0-20.0 [facility] Comment on above: Performed By: #### P TINR #### [address] [address] CBC w/ Diffon 05-27-2021 Erythrocyte distribution width (RBC) [Ratio] 12.8 % Normal 11.6-14.8 [facility] Comment on above: Performed By: #### C BC #### [address] [address] Hematocrit (Bld) [Volume fraction] 42.6 % Normal 41.0-53.0 [facility] Comment on above: Performed By: #### C BC #### [address] [address] Hemoglobin (Bld) [Mass/Vol] 14.4 g/dL Normal 13.5-17.5 [facility] Comment on above: Performed By: #### C BC #### [address] [address] MCH (RBC) [Entitic mass] 30.2 pg Normal 27.0-35.0 [facility] Comment on above: Performed By: #### C BC #### [address] [address] MCHC 33.7 % Normal 31.0-37.0 [facility] Comment on above: Performed By: #### C BC #### [address] [address] MCV (RBC) [Entitic vol] 89.8 fL Normal 80.0-100.0 [facility] Comment on above: Performed By: #### C BC #### [address] [address] Platelet 190 x10*3/mcL Normal 150-350 [facility] Comment on above: Performed By: #### C BC #### [address] [address] Platelet mean volume (Bld) [Entitic vol] 6.7 fL Normal 6.7-10.6 [facility] Comment on above: Performed By: #### C BC #### [address] [address] RBC 4.75 x10*6/mcL Normal 4.30-5.80 [facility] Comment on above: Performed By: #### C BC #### [address] [address] WBC 7.7 x10*3/mcL Normal 4.5-11.0 [facility] Comment on above: Performed By: #### C BC #### [address] [address] Diff Autoon 05-27-2021 Baso Absolute 0.0 x10*3/mcL Normal 0.0-0.2 [facility] Comment on above: Performed By: #### P TINR #### [address] [address] Basophils/100 WBC (Bld) 0.1 % Normal 0.0-1.2 [facility] Comment on above: Performed By: #### P TINR #### [address] [address] Eos Absolute 0.1 x10*3/mcL Normal 0.0-0.4 [facility] Comment on above: Performed By: #### P TINR #### [address] [address] Eosinophils/100 WBC (Bld) 0.7 % Normal 0.0-6.1 [facility] Comment on above: Performed By: #### P TINR #### [address] [address] Lymph Absolute 2.1 x10*3/mcL Normal 1.0-4.8 [facility] Comment on above: Performed By: #### P TINR #### [address] [address] Lymphocytes/100 WBC (Bld) 26.7 % Low 27.2-40.8 [facility] Comment on above: Performed By: #### P TINR #### [address] [address] [place] Absolute 0.6 x10*3/mcL Normal 0.3-1.1 [facility] Comment on above: Performed By: #### P TINR #### [address] [address] Monocytes/100 WBC (Bld) 7.9 % Normal 4.7-13.9 [facility] Comment on above: Performed By: #### P TINR #### [address] [address] Neutro Absolute 5.0 x10*3/mcL Normal 1.8-7.7 [facility] Comment on above: Performed By: #### P TINR #### [address] [address] Neutro Auto 64.6 % Normal 47.2-70.8 [facility] Comment on above: Performed By: #### P TINR #### [address] [address] Hgb A1con 05-27-2021 Glucose [Mass/Vol] 192 mg/dL High 68-114 [facility] Comment on above: Result Comment: Math ematical Calc approx. The mean gluc equivalency of A1c Performed By: #### P TINR #### [address] [address] Hgb A1c 8.3 % A1c High 4.0-5.6 [facility] Comment on above: Result Comment: Refe rence Range: 4.0 - 5.6 % Normal 5.7 - 6.4 % Pre-Diabetes > 6.5 % Diabetes Performed By: #### P TINR #### [address] [address] PTon 05-27-2021 INR Coag (PPP) [Relative time] 1.1 {INR} Normal <=3.5 [facility] Comment on above: Result Comment: INR has no normal range. INR Therapeutic range is: 2.0-3.0 (AF, CVA, TIAs, DVT prophylaxis, acute DVT) 2.5-3.5 ([facility] heart valves, recurrent thrombosis/emboli) Performed By: #### P TINR #### [address] [address] PT Coag (PPP) [Time] 11.3 s Normal 9.4-12.1 [facility] Comment on above: Performed By: #### P TINR #### [address] [address] PTTon 05-27-2021 aPTT Coag (Bld) [Time] 22.5 s Normal 20.2-27.0 [facility] Comment on above: Performed By: #### P TT #### [address] [address] XR Chest 2 Viewson 2 XR Chest 2 Views CHEST 2 VIEWS CLINICAL HISTORY: Preoperative assessment. ICD 10 Z01.818. COMPARISONS: None. CORRELATION: None. TECHNIQUE: Frontal and lateral radiographs of the chest was obtained. FINDINGS: The cardiomediastinal silhouette and pulmonary vasculature is within normal limits. Sternotomy with cardiac valve is present. There is a 1.2 cm calcified nodule/granuloma within the anterior medial left lung base. Otherwise, the lungs and pleural spaces are clear. There is no pneumothorax or pleural effusion. There is no acute osseous abnormality.There is a degenerative appearance of the thoracic spine. IMPRESSION: No acute cardiopulmonary process. Final Dictated by: La Nena Babcock DO Dictated DT/TM: 05/27/2021 10:11 am Signed by: La Nena Babcock DO Signed (Electronic Signature): 05/27/2021 10:13 am (If Report Is Signed, Electronically Signed in Other Vendor System) Normal [facility] Otolaryngology Office/Clinic Noteon 05-19-2021 Otolaryngology Office/Clinic Note Chief Complaint Patient states I am coming in for a left ear check and results of biopsy. History of Present Illness Marilu is a very pleasant 71-year-old gentleman who presents for follow-up. He has a history of nonhealing lesion to left ear. Biopsy performed on 05/04/2021 suggest basal cell carcinoma with squamous differentiation. He presents today to discuss surgical options. 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 hHistory of skin cancer to his nose about 15+ years ago for which he underwent excision and 26 rounds of radiation. Review of Systems General Cardiovascular EENMT Ear drainage: No Ear pain: Yes Hearing loss: Yes Tinnitus: Yes Gastrointestinal Genitourinary Hematologic/Lymphatic Musculoskeletal Neurological Psychiatric Respiratory Skin Physical Exam Vitals & Measurements HR: 70 (Peripheral) BP: 143/66 Additional Vitals BP Position/Location: Sitting, Left arm General: No acute distress, alert and oriented x3. Head: Normocephalic, atraumatic. Face: Facial function symmetric and equal bilaterally. Ears: 2cm area of skin discoloration involving the scaphoid fossa to the antihelix crura on the left. Previous punch biopsy site visible. Separate punctate pigmented lesion involving posterior left helical rim. Nose: External nasal dorsum is straight. Anterior rhinoscopy reveals normal intranasal anatomy, a straight septum, and normal inferior turbinates bilaterally. Mouth: Oral tongue has normal mobility with no abnormal masses or lesions. Oropharynx: Tonsillar fossa are symmetric. The posterior oropharynx shows no abnormal masses or lesions. Neck: Neck size is normal. No cervical lymphadenopathy noted. Pathology 05/04/2021 Microscopic Description (Verified) Sections show a punch biopsy of skin with basal cell carcinoma. In areas there is squamous differentiation of the tumor. There is solar elastosis. Tumor extends to the margins. Diagnosis (Verified) Skin, left ear antihelix, punch biopsy: Basal cell carcinoma with squamous differentiation. Tumor involves the margins of the punch biopsy. Solar elastosis. Assessment/Plan 1. Basal cell carcinoma of left ear We reviewed the results of his pathology from biopsy. Recommend surgical excision. Discussed nonstandard options such as radiation therapy, topical chemotherapy ointments, or no treatment. We discussed surgical excision would involve excising the area of tumor which may lead to cosmetic changes to his left ear. Discussed reconstruction options and he favors one that would provide the quickest healing. As such, surgery would include a left partial auriculectomy with reconstruction using full-thickness skin graft. He like to proceed with surgery. This could be done under MAC to minimize anesthesia risk. 2. Anticoagulated He is on Plavix and Xarelto. Ideally would like him off of both if possible. However if he must be on both, we can still proceed with surgery, although the risk of bleeding was discussed. Orders: Basic Metabolic Profile Complete Blood Count w/ Differential EKG Hemoglobin A1c PTINR PTT SARS-CoV-2 Antigen XR Chest 2 Views Medical Decision Making Chronic conditions NOT treated during this visit that affected my overall medical decision making: [] Treatment plans discussed but not opted for at this time: [] Prescribed medication that requires intensive monitoring for toxicity: [] I have reviewed the patient?s medication list for medication interactions/contraindica tions and/or for upcoming procedures: [yes or no] Time Spent with the Patient I have personally spent [32] minutes on this date, directly related to today's patient visit, including pre and post visit work, for this date of service. Time listed does not include time spent on separately billable services. Problem List/Past Medical History Ongoing Diabetes Hyperlipidemia Hypertension Skin cancer Historical No qualifying data Procedure/Surgical History leg, left open heart valve replaced Medications clopidogrel 75 mg oral tablet, 75 mg= 1 tabs, Oral, Daily isosorbide dinitrate 30 mg oral tablet, 30 mg= 1 tabs, Oral, BID lisinopril 20 mg oral tablet, 20 mg= 1 tabs, Oral, Daily metFORMIN 500 mg oral tablet, 500 mg= 1 tabs, Oral, BID metoprolol tartrate 25 mg oral tablet, 25 mg= 1 tabs, Oral, BID simvastatin 40 mg oral tablet, 40 mg= 1 tabs, Oral, Daily Xarelto 20 mg oral tablet, 20 mg= 1 tabs, Oral, qPM Allergies penicillin (Hives) Social History Tobacco Former smoker, quit more than 5 years ago Use:. Cigarettes, 1 per day. Packs, 40 year(s). Family History Cancer: Aunt. Diabetes mellitus: Mother. Heart attack: Father. Electronically signed by Gerald Villagomez MD, [place] 05/19/21 15:56 EST Normal [facility] CBC Auto DifferentialOrdered By: Mary Beth Pitts on 09-27-2020 Absolute Eos # 0.[address] [facility] Work Phone: Absolute Immature Granulocyte 0.04 [employer] Work Phone: Absolute Lymph # 2.63 [employer] [facility] Work Phone: Absolute [place] # 0.68 [employer] [facility] Work Phone: Basophils (Bld) [#/Vol] 10*3/uL [employer] Work Phone: Basophils/100 WBC (Bld) 0 % 0 - 2 % [employer] Phone: Differential Type NOT REPORTED [employer] Phone: Eosinophils/100 WBC (Bld) 0 % Low 1 - 4 % [employer] Phone: Hematocrit (Bld) [Volume fraction] 36.8 % Low 40.7 - 50.3 % [employer] Phone: Hemoglobin.gastrointes tinal spec 1 Ql (Stl) 11.7 g/dL Low 13.0 - 17.0 g/dL [employer] Work Phone: Immature granulocytes/100 WBC (Bld) 0 % 0 [employer] Phone: Interpretation and review of laboratory results Abnormal [employer] Phone: Lymphocytes/100 WBC (Bld) 27 % 24 - 43 % [employer] Phone: MCH (RBC) [Entitic mass] 30.2 pg 25.2 - 33.5 pg [employer] Phone: MCHC (RBC) [Mass/Vol] 31.8 g/dL 28.4 - 34.8 g/dL [employer] Phone: MCV (RBC) [Entitic vol] 95.1 fL 82.6 - 102.9 fL [employer] Phone: Monocytes/100 WBC (Bld) 7 % 3 - 12 % [employer] Phone: NRBC Automated 0.0 0.0 per 100 WBC [employer] Phone: Platelet distribution width (Bld) [Ratio] 13.5 % 11.8 - 14.4 % [employer] Phone: Platelet Estimate NOT REPORTED [employer] Phone: Platelet mean volume (Bld) [Entitic vol] 8.7 fL 8.1 - 13.5 fL [employer] Phone: Platelets (Bld) [#/Vol] 243 10*3/uL [employer] Phone: RBC (Bld) [#/Vol] 3.87 10*6/uL Low 4.21 - 5.77 m/uL [employer] Phone: RBC (Bld) [#/Vol] NOT REPORTED [employer] Phone: Segmented neutrophils/100 WBC (Bld) 66 % High 36 - 65 % [employer] Work Phone: Segs Absolute 6.35 [employer] Work Phone: WBC (Bld) [#/Vol] 9.8 10*3/uL [employer] Work Phone: WBC (Bld) [#/Vol] NOT REPORTED [employer] Work Phone: [employer] Work Phone: TIBIA FIBULA LEFT 04-28-20 20 TIBIA FIBULA LEFT [facility] Department of Radiology [address] [place] [id number] Patient Name: MARILU DAN : 1950 Sex: M Age: Race: White Pt. Location: Patient Status: D Ordered Date: 04/28/2020 12:40:00 PM Completed Date: 04/28/2020 12:44 PM Requesting Provider: SWETHA WINTER Attending Provider: SWETHA WINTER Report Copy To: Signs & Symptoms: S82.242D Displ spiral fx shaft of l tibia, 7thD I10 History: Comments: Evaluate Exam: TIBIA FIBULA LEFT TIBIA FIBULA LEFT 04/28/2020 12:44 PM CLINICAL INDICATIONS: S82.242D Displ spiral fx shaft of l tibia, 7thD I10 TECHNOLOGIST COMMENTS: surgery 02/13/2020 ortho check left tibia QUESTION FOR THE RADIOLOGIST: Evaluate PROTOCOL: AP(PA) and Lateral views were obtained. COMPARISON: March 29, 2020 FINDINGS: Intramedullary kelsey proximal and distal interlocking screws across the distal tibial shaft spiral fracture. Alignment is appropriate. Callus formation is developing however there is no evidence of complete osseous bridging. IMPRESSION: Appropriate alignment of the distal tibial fracture with callus formation but incomplete osseous bridging. Electronically signed: Terry Diaz. Transcribed by: [email or web address], User Resident: Electronically Signed by: TERRY DIAZ @ 04/29/2020 01:11 PM Normal [facility] Comment on above: Order Comment: Hardw are Evaluation TIBIA FIBULA LEFTon 03-29-20 20 TIBIA FIBULA LEFT [facility] Department of Radiology [address] [place] [id number] Patient Name: MARILU DAN : 1950 Sex: M Age: Race: White Pt. Location: Patient Status: O Ordered Date: 03/29/2020 12:50:00 PM Completed Date: 03/29/2020 12:50 PM Requesting Provider: SWETHA WINTER Attending Provider: SWETHA WINTER Report Copy To: Signs & Symptoms: S82.242D Displ spiral fx shaft of l tibia, 7thD I10 History: Comments: evaluate Exam: TIBIA FIBULA LEFT TIBIA FIBULA LEFT 03/29/2020 12:50 PM SIGNS AND SYMPTOMS: S82.242D Displ spiral fx shaft of l tibia, 7thD I10, left tib/fib surgery 02/13/20 follow up QUESTION FOR THE RADIOLOGIST: evaluate PROTOCOL: AP(PA) and Lateral views were obtained. COMPARISON: February 23, 2020 IMPRESSION: * No change in alignment or evidence of hardware complication of the intramedullary nail traversing the spiral fracture of the distal tibia. Limited healing. * Proximal fibular fracture unchanged in alignment with less conspicuous fracture line/interval healing. Electronically signed: Katiuska Mo M.D.. Transcribed by: [email or web address], User Resident: Electronically Signed by: KATIUSKA MO @ 03/29/2020 01:27 PM Normal [facility] Comment on above: Order Comment: Hardw are Evaluation TIBIA FIBULA LEFTon 02-23-20 20 TIBIA FIBULA LEFT [facility] Department of Radiology [address] [place] [phone] Patient Name: MARILU DAN : 1950 Sex: M Age: Race: White Pt. Location: Patient Status: O Ordered Date: 02/23/2020 9:40:00 AM Completed Date: 02/23/2020 09:42 AM Requesting Provider: KENDAL TORRES Attending Provider: KENDAL TORRES Report Copy To: MARY BETH PITTS Signs & Symptoms: Z48.89 Encounter for other specified surgical aftercare I10 History: Comments: evaluate Exam: TIBIA FIBULA LEFT TIBIA FIBULA LEFT 02/23/2020 9:42 AM CLINICAL INDICATIONS: Z48.89 Encounter for other specified surgical aftercare I10 TECHNOLOGIST COMMENTS: left tib/fib surgery 02/13/20 follow up QUESTION FOR THE RADIOLOGIST: evaluate PROTOCOL: AP(PA) and Lateral views were obtained. COMPARISON: 02/13/2020 FINDINGS: IM nail and screws transfix a known oblique fracture of the distal tibia. There is also a comminuted oblique fracture of the fibular head. The hardware alignment is stable. The bony alignment is stable. There are vascular calcifications. IMPRESSION: ORIF changes left tibial fracture. Comminuted left fibular head fracture. Stable appearance. Electronically signed: Mary Jane Pendleton. Transcribed by: [email or web address], User Resident: Electronically Signed by: MARY JANE PENDLETON @ 02/23/2020 09:46 AM Normal [facility] Comment on above: Order Comment: Hardw are Evaluation VITAMIN D 25-HYDROXYon 02-22 VITAMIN D 25-OH 31.6 ng/mL Normal 30.0-80.0 [facility] Comment on above: Result Comment: >80. 0 Toxicity possible Performed By: #### 3 0728 ####[facility] [place] [address], [facility] BASIC METABOLIC PANELon 10-0 Calcium [Mass/Vol] 8.7 mg/dL Normal 8.6-10.3 [facility] Comment on above: Order Comment: No: D o not add to previous draw Performed By: #### 8 6002 #### [facility] [address] [place] [address], [place] Chloride [Moles/Vol] 103 mmol/L Normal 98-107 [facility] Comment on above: Order Comment: No: D o not add to previous draw Performed By: #### 8 6002 #### [facility] [address] [place] [address], [place] CO2 [Moles/Vol] 25 mmol/L Normal 21-31 [facility] Comment on above: Order Comment: No: D o not add to previous draw Performed By: #### 8 6002 #### [facility] [address] [place] [address], [place] Creatinine [Mass/Vol] 0.72 mg/dL Normal 0.70-1.30 [facility] Comment on above: Order Comment: No: D o not add to previous draw Performed By: #### 8 6002 #### [facility] [address] [place] [address], [facility] GFR/1.73 sq M predicted among blacks MDRD (S/P/Bld) [Vol rate/Area] mL/min/{1.73_m2} Normal >60 [facility] Comment on above: Order Comment: No: D o not add to previous draw Result Comment: Calc ulation may not be valid for patients over 70 years Performed By: #### 8 6002 #### [facility] [address] [place] [address], [facility] GFR/1.73 sq M predicted among non-blacks MDRD (S/P/Bld) [Vol rate/Area] mL/min/{1.73_m2} Normal >60 [facility] Comment on above: Order Comment: No: D o not add to previous draw Result Comment: Calc ulation may not be valid for patients over 70 years Performed By: #### 8 6002 #### [facility] [address] [place] [address], [place] Glucose [Mass/Vol] 178 mg/dL High 70-100 [facility] Comment on above: Order Comment: No: D o not add to previous draw Performed By: #### 8 6002 #### [facility] [address] [place] [address], [place] Potassium [Moles/Vol] 4.2 mmol/L Normal 3.5-5.1 [facility] Comment on above: Order Comment: No: D o not add to previous draw Performed By: #### 8 6002 #### [facility] [address] [place] [address], [place] Sodium [Moles/Vol] 136 mmol/L Normal 136-145 [facility] Comment on above: Order Comment: No: D o not add to previous draw Performed By: #### 8 6002 #### [facility] [address] [place] [address], [facility] Urea nitrogen [Mass/Vol] 14 mg/dL Normal 7-25 [facility] Comment on above: Order Comment: No: D o not add to previous draw Performed By: #### 8 6002 #### [facility] [address] [place] [address], [facility] CBC COMPLETE BLOOD COUNTon Erythrocyte distribution width (RBC) [Ratio] 12.3 % Normal 11.5-15.0 [facility] Comment on above: Order Comment: No: D o not add to previous draw Performed By: #### 8 6002 #### [facility] [address] [place] [address], [facility] Hematocrit (Bld) [Volume fraction] 30.8 % Low 39.0-50.0 [facility] Comment on above: Order Comment: No: D o not add to previous draw Performed By: #### 8 6002 #### [facility] [address] [place] [address], [facility] Hemoglobin (Bld) [Mass/Vol] 10.6 g/dL Low 13.0-17.0 [facility] Comment on above: Order Comment: No: D o not add to previous draw Performed By: #### 8 6002 #### [facility] [address] [place] [address], [facility] MCH (RBC) [Entitic mass] 30.3 pg Normal 27.0-33.0 [facility] Comment on above: Order Comment: No: D o not add to previous draw Performed By: #### 8 6002 #### [facility] [address] [place] [address], [facility] MCHC (RBC) [Mass/Vol] 34.4 g/dL Normal 32.0-35.0 [facility] Comment on above: Order Comment: No: D o not add to previous draw Performed By: #### 8 6002 #### [facility] [address] [place] [address], [facility] MCV (RBC) [Entitic vol] 88.0 fL Normal 82.0-98.0 [facility] Comment on above: Order Comment: No: D o not add to previous draw Performed By: #### 8 6002 #### [facility] [address] [place] [id number], [facility] Nucleated RBC/100 WBC (Bld) [Ratio] 0 % Normal 0-0 [facility] Comment on above: Order Comment: No: D o not add to previous draw Performed By: #### 8 6002 #### [facility] [address] [place] [address], [facility] PLAT CNT 153 10*3/uL Normal 150-400 [facility] Comment on above: Order Comment: No: D o not add to previous draw Performed By: #### 8 6002 #### [facility] [address] [place] [address], [facility] RBC (Bld) [#/Vol] 3.50 10*6/uL Low 4.20-5.70 [facility] Comment on above: Order Comment: No: D o not add to previous draw Performed By: #### 8 6002 #### [facility] [address] [place] [id number], [facility] WBC (Bld) [#/Vol] 8.11 10*3/uL Normal 4.00-10.60 [facility] Comment on above: Order Comment: No: D o not add to previous draw Performed By: #### 8 6002 #### [facility] [address] [address], [facility] Operative Reporton 0 Operative Report MR#: [id number] [facility] Pt. Name: Marilu Dan Room #: [id number] Discharge Date: Birthdate: 1950 OPERATIVE REPORT DATE OF SURGERY: 02/13/2020 SURGEON: Jony Stein M.D. ASSISTANTS: 1. Briana Lopez M.D. 2. Juan Miguel Miles M.D. 3. Mikey Morrell M.D. PREPROCEDURAL DIAGNOSIS: Left distal tibial shaft fracture. POSTPROCEDURE DIAGNOSIS: Left distal tibial shaft fracture. PROCEDURE PERFORMED: Left tibial shaft fixation with intramedullary nailing. ANESTHESIA: General. BLOOD LOSS: Minimal. COMPLICATIONS: None. FLUIDS: Per the Anesthesiology report. SPECIMENS: None. IMPLANTS: Include Biomet Melody tibial intramedullary nail measuring 10 mm x 34 cm with associated cortical screws proximally and distally. PATIENT HISTORY: The patient is a 69-year-old male, who initially presented to [facility] Emergency Department with chief complaint of left leg pain. Subsequent history and physical examination, radiographic and CT imaging revealed the patient had an isolated fracture of the distal tibial shaft. After discussing risks, benefits, and alternatives to treatment, the patient agreed to undergo the above-mentioned procedure. PROCEDURAL DETAILS: The patient was identified in the preoperative area by name, date, and MRN number. The patient was identified by the attending physician, marked the operative site. Informed consent was obtained. Perioperative antibiotics were started and the patient was taken back to the operating room where he was positioned on a standard OR table. Leg was then prepped and draped in standard sterile fashion. Official time-out was performed. Next, we began our procedure first by performing reduction maneuver of the distal tibial shaft utilizing reduction clamps. These were placed in the appropriate position and provided compression and resulted in near anatomic reduction of the fracture and this was confirmed with the AP and lateral fluoroscopy. At this point, we then flexed the leg up over a radiolucent triangle was then performed a repair of the patellar approach to the proximal tibial nail start point. This skin incision down through skin and subcutaneous tissue and the patellar tendon and then performed a patellar splitting incision, taking this down to the nonarticular surface of the proximal tibia. We then placed our entry all positioning at the start point in the medial aspect of the lateral tibial spine on the AP fluoroscopy, as well as the nonarticular anterior surface of the tibial plafond per the tibial plateau on the sagittal lateral x-ray. We then entered the proximal tibia with our entry awl and then slid our guidewire with a slight 15 degree bend at the tip all the way down to the ankle joint. AP and lateral fluoroscopy of the ankle joint confirmed a center-center position of the guidewire and this was malleted down into the subchondral bone. Following placement of the nail, we then placed our soft tissue protector around the nail and proceeded with reaming of the tibia. We reamed sequentially by 1 mm and then 0.5 mm increments to a total of 12 mm. We then measured the length of our nail, which was measured to be about 340 mm. We then decided to proceed with placing a 10 mm x 340 mm in the Biomet tibial nail. This nail was run over the guidewire and positioned properly below the cortical rim proximally and seated well distally but out of the articular surface. At this point, we then proceeded to place our proximal locking screws using the Melody Biomet attached guide jig using fluoroscopy followed by placing the 2 locking screws distally using freehand perfect asa'carsarmiut technique. After the placement of all interlocking screws, we then removed our reduction clamps and obtained final x-ray imaging of the ankle fracture site and proximal tibia both AP and lateral to confirm proper positioning of the nail and continued reduction of the fracture. All wounds were then copiously irrigated and our percutaneous incisions for the locking screws were closed with 4-0 Novafil thrown in simple fashion with infrapatellar approach. We began by repairing longitudinal split of the patellar tendon with 0 Vicryl sutures followed by 3-0 Vicryl for deep dermal layers, followed by a 4-0 Novafil for the skin layer. The wounds were then dressed with Xeroform, 4 x 4, fluffs, Webril, and Manpreet wrap. The patient was then successfully emerged from general anesthesia and transferred to the PACU without complication. POSTOPERATIVE INSTRUCTIONS: The patient will be nonweightbearing on his left lower extremity. The patient will take pain medication as prescribed. The patient is to start on DVT prophylaxis postop day 1 in the form of Lovenox or other 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 recommended by the primary team. The patient will get 24 hours of postoperative antibiotics. The patient will be admitted back to the floor for postoperative examination. The patient may be able to discharge postop day 1, complicated, following re-evaluation by the Orthopedic as well as primary teams. Dr. Sinclair was present during all critical portions procedure, was readily available all times to assist. Electronically Signed by: Jony Stein M.D. 02/17/2020 04:58 P Jony Stein M.D. I was present for the leahy and critical portions and I was otherwise immediately available to assist. Date Dict: 02/14/2020/07:46 A/Briana Lopez MD Date Trans: 02/14/2020 11:08 A/gomez [id number] Normal [facility] POC GLUCOSE LABon 02-14-2020 Glucose [Mass/Vol] 228 mg/dL High 70-100 [facility] Comment on above: Performed By: #### 8 5499 #### [facility] [address] [place] [address], [place] Glucose [Mass/Vol] 169 mg/dL High 70-100 [facility] Comment on above: Performed By: #### 8 5499 #### [facility] [address] [place] [address], [facility] *MRSA/MSSA DNA NASALon 02-12 *MRSA/MSSA DNA NASAL Clinical Report: (D ) Specimen/Source: NASAL SWAB/NARES Collected: 02/13/2020 14:23 Status: Final Last Updated: 02/17/2020 12:22 MSSA DNA (Final) Negative MRSA DNA (Final) Negative Normal [facility] Comment on above: Performed By: #### 3 1595 #### [facility] [address] [place] [address], [place] BASIC METABOLIC PANELon Calcium [Mass/Vol] 9.2 mg/dL Normal 8.6-10.3 [facility] Comment on above: Order Comment: No: D o not add to previous draw Performed By: #### 8 5499 #### [facility] [address] [place] [address], [place] Chloride [Moles/Vol] 102 mmol/L Normal 98-107 [facility] Comment on above: Order Comment: No: D o not add to previous draw Performed By: #### 8 5499 #### [facility] [address] [place] [address], [place] CO2 [Moles/Vol] 29 mmol/L Normal 21-31 [facility] Comment on above: Order Comment: No: D o not add to previous draw Performed By: #### 8 5499 #### [facility] [address] [place] [address], [place] Creatinine [Mass/Vol] 0.71 mg/dL Normal 0.70-1.30 [facility] Comment on above: Order Comment: No: D o not add to previous draw Performed By: #### 8 5499 #### [facility] [address] [place] [address], [place] GFR/1.73 sq M predicted among blacks MDRD (S/P/Bld) [Vol rate/Area] mL/min/{1.73_m2} Normal >60 [facility] Comment on above: Order Comment: No: D o not add to previous draw Result Comment: Calc ulation may not be valid for patients over 70 years Performed By: #### 8 5499 #### [facility] [address] [place] [address], [place] GFR/1.73 sq M predicted among non-blacks MDRD (S/P/Bld) [Vol rate/Area] mL/min/{1.73_m2} Normal >60 [facility] Comment on above: Order Comment: No: D o not add to previous draw Result Comment: Calc ulation may not be valid for patients over 70 years Performed By: #### 8 5499 #### [facility] [address] [place] [address], [place] Glucose [Mass/Vol] 160 mg/dL High 70-100 [facility] Comment on above: Order Comment: No: D o not add to previous draw Performed By: #### 8 5499 #### [facility] [address] [place] [address], [facility] Potassium [Moles/Vol] 4.0 mmol/L Normal 3.5-5.1 [facility] Comment on above: Order Comment: No: D o not add to previous draw Performed By: #### 8 5499 #### [facility] [address] [place] [address], [place] Sodium [Moles/Vol] 136 mmol/L Normal 136-145 [facility] Comment on above: Order Comment: No: D o not add to previous draw Performed By: #### 8 5499 #### [facility] [address] [place] [address], [facility] Urea nitrogen [Mass/Vol] 13 mg/dL Normal 7-25 [facility] Comment on above: Order Comment: No: D o not add to previous draw Performed By: #### 8 5499 #### [facility] [address] [place] [address], [facility] CBC COMPLETE BLOOD COUNTon Erythrocyte distribution width (RBC) [Ratio] 12.4 % Normal 11.5-15.0 [facility] Comment on above: Order Comment: No: D o not add to previous draw Performed By: #### 8 6002 #### [facility] [address] [place] [address], [facility] Hematocrit (Bld) [Volume fraction] 37.6 % Low 39.0-50.0 [facility] Comment on above: Order Comment: No: D o not add to previous draw Performed By: #### 8 6002 #### [facility] [address] [place] [address], [facility] Hemoglobin (Bld) [Mass/Vol] 12.8 g/dL Low 13.0-17.0 [facility] Comment on above: Order Comment: No: D o not add to previous draw Performed By: #### 8 6002 #### [facility] [address] [place] [address], [facility] MCH (RBC) [Entitic mass] 30.1 pg Normal 27.0-33.0 [facility] Comment on above: Order Comment: No: D o not add to previous draw Performed By: #### 8 6002 #### [facility] [address] [place] [address], [facility] MCHC (RBC) [Mass/Vol] 34.0 g/dL Normal 32.0-35.0 [facility] Comment on above: Order Comment: No: D o not add to previous draw Performed By: #### 8 6002 #### [facility] [address] [place] [address], [facility] MCV (RBC) [Entitic vol] 88.5 fL Normal 82.0-98.0 [facility] Comment on above: Order Comment: No: D o not add to previous draw Performed By: #### 8 6002 #### [facility] [address] [place] [address], [facility] Nucleated RBC/100 WBC (Bld) [Ratio] 0 % Normal 0-0 [facility] Comment on above: Order Comment: No: D o not add to previous draw Performed By: #### 8 6002 #### [facility] [address] [place] [address], [facility] PLAT CNT 180 10*3/uL Normal 150-400 [facility] Comment on above: Order Comment: No: D o not add to previous draw Performed By: #### 8 6002 #### [facility] [address] [place] [address], [facility] RBC (Bld) [#/Vol] 4.25 10*6/uL Normal 4.20-5.70 [facility] Comment on above: Order Comment: No: D o not add to previous draw Performed By: #### 8 6002 #### [facility] [address] [place] [address], [facility] WBC (Bld) [#/Vol] 7.58 10*3/uL Normal 4.00-10.60 [facility] Comment on above: Order Comment: No: D o not add to previous draw Performed By: #### 8 6002 #### [facility] [address] [place] [address], [place] MAGNESIUM BLOODon 02-13-2020 Magnesium [Mass/Vol] 2.0 mg/dL Normal 1.9-2.7 [facility] Comment on above: Order Comment: No: D o not add to previous draw Performed By: #### 8 5499 #### [facility] [address] [place] [address], [facility] PHOSPHORUS BLOODon 0 Phosphate [Mass/Vol] 3.6 mg/dL Normal 2.5-5.0 [facility] Comment on above: Order Comment: No: D o not add to previous draw Performed By: #### 8 5499 #### [facility] [address] [place] [address], [place] POC GLUCOSE LABon 02-13-2020 Glucose [Mass/Vol] 176 mg/dL High 70-100 [facility] Comment on above: Performed By: #### 8 5499 #### [facility] [address] [place] [address], [place] Glucose [Mass/Vol] 134 mg/dL High 70-100 [facility] Comment on above: Performed By: #### 8 5499 #### [facility] [address] [place] [address], [place] Glucose [Mass/Vol] 138 mg/dL High 70-100 [facility] Comment on above: Performed By: #### 8 5499 #### [facility] [address] [place] [address], [place] Glucose [Mass/Vol] 143 mg/dL High 70-100 [facility] Comment on above: Performed By: #### 8 5499 #### [address] Glucose [Mass/Vol] 163 mg/dL High 70-100 [facility] Comment on above: Performed By: #### 8 5499 #### [facility] [address] TIBIA FIBULA LEFTon 02-13-20 20 TIBIA FIBULA LEFT [facility] Department of Radiology [address] [place] [id number] Patient Name: MARILU DAN : 1950 Sex: M Age: Race: White Pt. Location: [id number] Patient Status: I Ordered Date: 02/13/2020 8:00:00 PM Completed Date: 02/13/2020 09:04 PM Requesting Provider: BRIANA LOPEZ Attending Provider: MICHAEL BIGGS Report Copy To: Signs & Symptoms: Pain ( specify Location) History: See Comments Comments: Hardware Evaluation Exam: TIBIA FIBULA LEFT TIBIA FIBULA LEFT 02/13/2020 9:04 PM CLINICAL INDICATIONS: Pain ( specify Location) TECHNOLOGIST COMMENTS: post op left tib/fib done in recovery QUESTION FOR THE RADIOLOGIST: Hardware Evaluation PROTOCOL: AP(PA) and Lateral views were obtained. COMPARISON: None IMPRESSION: Tibial nail has been placed for fracture stabilization and treatment. Alignment is improved. Proximal and distal screws are noted. No acute hardware complication. Atherosclerotic disease is noted. Follow-up is planned. Proximal mildly displaced fibular head and neck fracture. Electronically signed: Catalina Pastrana. Transcribed by: [id number], User Resident: Electronically Signed by: CATALINA PASTRANA @ 02/13/2020 09:09 PM Normal [facility] Comment on above: Order Comment: Hardw are Evaluation TIBIA FIBULA LEFT [facility] Department of Radiology [address] [place] [phone] Patient Name: MARILU DAN : 1950 Sex: M Age: Race: White Pt. Location: [id number] Patient Status: I Ordered Date: 02/13/2020 7:15:00 AM Completed Date: 02/13/2020 08:58 PM Requesting Provider: JONY STEIN Attending Provider: JONY STEIN Report Copy To: Signs & Symptoms: intra op left tib/fib History: Comments: IM rodding Exam: TIBIA FIBULA LEFT TIBIA FIBULA LEFT 02/13/2020 8:58 PM CLINICAL INDICATIONS: intra op left tib/fib TECHNOLOGIST COMMENTS: IM rodding left tibia with Dr. STEIN . fluoro time 3 minutes and 17 seconds. 9.54 mGY.14 images . russell c-arm QUESTION FOR THE RADIOLOGIST: IM rodding PROTOCOL: AP(PA) and Lateral views were obtained. COMPARISON: 02/12/2020 IMPRESSION: Spiral fracture of the proximal fibular head and neck is appreciated. Spiral fracture of the distal tibia is noted. Tibial nail and screw placement was performed for stabilization. Fluoroscopy time is 3.17 minutes. 14 images are submitted for review. Electronically signed: Catalina Pastrana. Transcribed by: [email or web address], User Resident: Electronically Signed by: CATALINA PASTRANA @ 02/13/2020 09:12 PM Normal [facility] Comment on above: Order Comment: Hardw are Evaluation *SARS-CoV-2 COVID-19on 02-11 [id number] Not Detected Normal Not Detected [facility] Comment on above: Order Comment: The A ptima SARS-CoV-2 assay is a nucleic acid amplification test intended for the qualitative detection of RNA from SARS-CoV-2 isolated and purified from nasopharyngeal (DECAY CONTROL OPERATOR),oropharyngeal (OP), nasal swab, sputum, and bronchoalveolar lavage (BAL) specimens from patients with signs and symptoms of infection who are suspected of COVID-19. Results are for the identification of SARS-CoV-2 RNA. The SARS-CoV-2 RNA is generally detectable during the acute phase of infection. The Aptima SARS-CoV-2 Assay on the onefinestay and [employer] Fusion system is intended for use by laboratory personnel specifically instructed and trained in the operation of the [employer] Fusion system. The Aptima SARS-CoV-2 assay is only for use under the Food and Drug Administration Emergency Use Authorization. Testing is limited to laboratories certified under the Clinical Laboratory Improvement Amendments of 1988 (CLIA), 42 U.S.C. ???263a, to perform high complexity tests. Not Detected: Not detected does not preclude SARS-CoV-2 infection and should not be used as the sole basis for patient management decisions. Not detected results must be combined with clinical observations, patient history, and epidemiological information. Performed By: #### 3 1792 #### [facility] [address] [place] [address], [facility] APTTon 02-12-2020 aPTT Coag (Bld) [Time] 27.0 s Normal 25.0-35.0 [facility] Comment on above: Order Comment: No: D o not add to previous draw Result Comment: ALL RESULTS MUST BE INTERPRETED WITH RESPECT TO BLOOD DRAWING ARTIFACT OR DILUTION ERROR OF ANTICOAGULANT AT THE TIME OF SAMPLING. THE APTT SHOULD NOT BE USED TO MONITOR UNFRACTIONATED HEPARIN THERAPY, THIS LABORATORY NO LONGER HAS AN ESTABLISHED THERAPEUTIC RANGE BASED ON THE APTT. IT IS RECOMMENDED THAT THE [facility] - HEPARIN ASSAY (ANTI-XA ACTIVITY) BE USED FOR THIS PURPOSE. Performed By: #### 8 5499 #### [facility] [address] BASIC METABOLIC PANELon 10-0 Calcium [Mass/Vol] 9.0 mg/dL Normal 8.6-10.3 [facility] Comment on above: Order Comment: No: D o not add to previous draw Performed By: #### 4 1000, 08946, 77384, 37811 ####[facility] [place] [address], [facility] Chloride [Moles/Vol] 100 mmol/L Normal 98-107 [facility] Comment on above: Order Comment: No: D o not add to previous draw Performed By: #### 4 1000, 98146, 79428, 98058 ####[facility] [place] [address], [facility] CO2 [Moles/Vol] 26 mmol/L Normal 21-31 [facility] Comment on above: Order Comment: No: D o not add to previous draw Performed By: #### 4 1000, 88425, 68064, 09424 ####[facility] [place] [address], [facility] Creatinine [Mass/Vol] 0.80 mg/dL Normal 0.70-1.30 [facility] Comment on above: Order Comment: No: D o not add to previous draw Performed By: #### 4 1000, 14833, 18731, 72828 ####[facility] [place] [address], [facility] GFR/1.73 sq M predicted among blacks MDRD (S/P/Bld) [Vol rate/Area] mL/min/{1.73_m2} Normal >60 [facility] Comment on above: Order Comment: No: D o not add to previous draw Result Comment: Calc ulation may not be valid for patients over 70 years Performed By: #### 4 1000, 68017, 43310, 92424 ####[facility] [facility] [place] [address], [facility] GFR/1.73 sq M predicted among non-blacks MDRD (S/P/Bld) [Vol rate/Area] mL/min/{1.73_m2} Normal >60 [facility] Comment on above: Order Comment: No: D o not add to previous draw Result Comment: Calc ulation may not be valid for patients over 70 years Performed By: #### 4 1000, 87380, 46981, 06790 ####[facility] [facility] [address], [facility] Glucose [Mass/Vol] 193 mg/dL High 70-100 [facility] Comment on above: Order Comment: No: D o not add to previous draw Performed By: #### 4 1000, 53375, 88924, 36903 ####[facility] [facility] [address], [facility] Potassium [Moles/Vol] 4.2 mmol/L Normal 3.5-5.1 [facility] Comment on above: Order Comment: No: D o not add to previous draw Performed By: #### 4 1000, 81974, 46512, 47717 ####[facility] [facility] [address], [place] Sodium [Moles/Vol] 132 mmol/L Low 136-145 [facility] Comment on above: Order Comment: No: D o not add to previous draw Performed By: #### 4 1000, 94475, 00843, 84022 ####[facility] [place] [address], [place] Urea nitrogen [Mass/Vol] 14 mg/dL Normal 7-25 [facility] Comment on above: Order Comment: No: D o not add to previous draw Performed By: #### 4 1000, 87078, 02629, 77496 ####[facility] CBC W/DIFFon 02-12-2020 ABS BASOPHILS 0.0 10*3/uL Normal 0.0-0.2 [facility] Comment on above: Performed By: #### 8 5499 #### [facility] [address] [facility] [place] [address], [facility] ABS IMM GRANS 0.1 10*3/uL Normal 0.0-0.2 [facility] Comment on above: Performed By: #### 8 5499 #### [facility] [address] ABS NEUTROPHILS 9.8 10*3/uL High 1.6-7.6 [facility] Comment on above: Performed By: #### 8 5499 #### [facility] [address] [place] [address], [facility] Basophils/100 WBC (Bld) 0.1 % Normal 0.0-1.0 [facility] Comment on above: Performed By: #### 8 5499 #### [facility] [address] [place] [address], [facility] Eosinophils (Bld) [#/Vol] 0.0 10*3/uL Normal 0.0-0.5 [facility] Comment on above: Performed By: #### 8 5499 ####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 catheter was inserted into the ascending aorta through the left femoral sheath and root aortogram was performed. Anatomical details were measured. Coplanar angles were assessed. Next, the patient was heparinized and the right femoral artery sheath was upsized to a 14-Mauritian Henao sheath. Before implanting the sheath, the artery had been preclosed with ProGlide stitches. Using a JR4 catheter, a straight wire was introduced into the ascending aorta and then the aortic root and used to cross the aortic valve successfully. Pigtail catheter was inserted into the left ventricle through which an Extra-Stiff Amplatz wire was inserted into the left ventricle. A 20 mm balloon valvuloplasty was performed over the Amplatz wire and rapid ventricular pacing successfully. The patient remained hemodynamically stable and subsequently, 26 mm Chidi S3 valve was deployed under rapid ventricular pacing without any problems. The patient remained hemodynamically stable. Transthoracic echocardiogram showed no paravalvular leaks. There was a small closing jet in the center and completion angiogram confirmed these findings. All hardware was removed from the vasculature. Right femoral artery was closed with ProGlide stitches. The temporary transvenous pacemaker was removed. 20 units of protamine was given. Hemostasis was secured. The patient remained hemodynamically stable and was taken to the ICU in a stable condition. Electronically Signed by: Santana Reagan MD 11/17/2019 11:45 A Santana Reagan MD Date Dict: 11/04/2019/04:22 P/Santana Reagan MD Date Trans: 11/05/2019 02:18 A/gomez [id number] Normal [facility] POC GLUCOSE LABon 11-05-2019 Glucose [Mass/Vol] 232 mg/dL High 70-100 [facility] Comment on above: Performed By: #### 8 5499 #### [address] Glucose [Mass/Vol] 148 mg/dL High 70-100 [facility] Comment on above: Performed By: #### 8 5499 #### [id number] [place] [address] Glucose [Mass/Vol] 203 mg/dL High 70-100 [facility] Comment on above: Performed By: #### 8 5499 #### [address] PORTABLE CHEST 1 VIEWon 10-13 PORTABLE CHEST 1 VIEW [facility] Department of Radiology [address] [place] [id number] Patient Name: MARILU DAN : 1950 Sex: M Age: Race: White Pt. Location: [place] [address] Patient Status: I Ordered Date: 11/05/2019 10:20:00 AM Completed Date: 11/05/2019 11:03 AM Requesting Provider: GUS BENNETT Attending Provider: SANTANA REAGAN Report Copy To: Signs & Symptoms: Post OP History: Comments: Evaluate for Pneumothorax Exam: PORTABLE CHEST 1 VIEW PORTABLE CHEST 1 VIEW 11/05/2019 11:03 AM CLINICAL INDICATIONS: Post OP History: Shortness of breath. QUESTION FOR THE RADIOLOGIST: Evaluate for Pneumothorax PROTOCOL: AP(PA) view was obtained. COMPARISON: 01/10/2015 chest radiograph, CTA chest 06/23/2019 FINDINGS: There are midline sternotomy wires. Status post TAVR. The heart is enlarged. Stable mediastinal silhouette and pulmonary vasculature. No evidence for pneumothorax, focal consolidation, or pleural effusion. Pulmonary nodules noted on CTA chest from 06/23/2019 are not clearly visualized on this exam. IMPRESSION: 1. No evidence for an acute cardiopulmonary process. 2. Known pulmonary nodules on CTA chest from 06/23/2019 are not clearly visible on this exam. Refer to CT chest report for further details and recommendations. Electronically signed: Omid Avery. Transcribed by: [email or web address], User Resident: Electronically Signed by: OMID AVERY @ 11/05/2019 11:07 AM Normal [facility] Comment on above: Order Comment: Hardw are Evaluation PROTHROMBIN TIMEon 0 INR Coag (PPP) [Relative time] 1.06 {INR} Normal 0.91-1.16 [facility] Comment on above: Order Comment: No: D o not add to previous draw Result Comment: ACCC P RECOMMENDED INR FOR WARFARIN THERAPY --------- ------- CONDITION INR PROPHYLAXIS OF VENOUS THROMBOSIS 2-3 (HIGH-RISK SURGERY) TREATMENT OF VENOUS THROMBOSIS 2-3 TREATMENT OF PULMONARY EMBOLISM 2-3 PREVENTION OF SYSTEMIC EMBOLISM: 2-3 ACUTE MYOCARDIAL INFARCTION TISSUE HEART VALVES VALVULAR HEART DISEASE ATRIAL FIBRILLATION RECURRENT SYSTEMIC EMBOLISM MECHANICAL HEART VALVE 2.5-3.5 FROM: ORAL ANTICOAGULANTS. MECHANISM OF ACTION, CLINICAL EFFECTIVENESS, AND OPTIMAL THERAPEUTIC RANGE. CHEST 1995;108:231S-246S. Performed By: #### 8 6002 #### [facility] [address] [place] [address], [facility] PT Coag (PPP) [Time] 13.8 s Normal 12.3-14.8 [facility] Comment on above: Order Comment: No: D o not add to previous draw Result Comment: ALL RESULTS MUST BE INTERPRETED WITH RESPECT TO BLOOD DRAWING ARTIFACT OR DILUTION ERROR OF ANTICOAGULANT AT THE TIME OF SAMPLING. Performed By: #### 8 6002 #### [facility] [address] [place] [id number], [place] ACTIVATED CLOTTING TIMEon ACTIVATED CLOTTING TIME 249 sec High 82-152 [facility] Comment on above: Performed By: #### 3 0739 ####[facility] [place] [address], [place] ACTIVATED CLOTTING TIME 249 sec High 82-152 [facility] Comment on above: Performed By: #### 3 0739 ####[facility] [place] [address], [place] ACTIVATED CLOTTING TIME 225 sec High 82-152 [facility] Comment on above: Performed By: #### 3 0739 ####[facility] [place] [address], [place] ACTIVATED CLOTTING TIME 201 sec High 82-152 [facility] Comment on above: Performed By: #### 3 0738 #### [facility] [address] [place] [address], [place] ACTIVATED CLOTTING TIME 172 sec High 82-152 [facility] Comment on above: Performed By: #### 3 0738 #### [facility] [address] [place] [address], [place] BASIC METABOLIC PANELon 06-2 -2019 Calcium [Mass/Vol] 8.9 mg/dL Normal 8.6-10.3 [facility] Comment on above: Performed By: #### 8 6002 #### [facility] [address] [place] [address], [place] Chloride [Moles/Vol] 105 mmol/L Normal 98-107 [facility] Comment on above: Performed By: #### 8 6002 #### [facility] [address] [place] [address], [place] CO2 [Moles/Vol] 28 mmol/L Normal 21-31 [facility] Comment on above: Performed By: #### 8 6002 #### [facility] [address] [place] [address], [place] Creatinine [Mass/Vol] 0.87 mg/dL Normal 0.70-1.30 [facility] Comment on above: Performed By: #### 8 6002 #### [facility] [address] [place] [address], [place] GFR/1.73 sq M predicted among blacks MDRD (S/P/Bld) [Vol rate/Area] mL/min/{1.73_m2} Normal >60 [facility] Comment on above: Result Comment: Calc ulation may not be valid for patients over 70 years Performed By: #### 8 6002 #### [facility] [address] [place] [address], [facility] GFR/1.73 sq M predicted among non-blacks MDRD (S/P/Bld) [Vol rate/Area] mL/min/{1.73_m2} Normal >60 [facility] Comment on above: Result Comment: Calc ulation may not be valid for patients over 70 years Performed By: #### 8 6002 #### [facility] [address] [place] [address], [facility] Glucose [Mass/Vol] 221 mg/dL High 70-100 [facility] Comment on above: Performed By: #### 8 6002 #### [facility] [address] [place] [address], [facility] Potassium [Moles/Vol] 3.9 mmol/L Normal 3.5-5.1 [facility] Comment on above: Performed By: #### 8 6002 #### [facility] [address] [place] [address], [place] Sodium [Moles/Vol] 139 mmol/L Normal 136-145 [facility] Comment on above: Performed By: #### 8 6002 #### [facility] [address] [place] [address], [facility] Urea nitrogen [Mass/Vol] 15 mg/dL Normal 7-25 [facility] Comment on above: Performed By: #### 8 6002 #### [facility] [address] [place] [address], [facility] PERFUSION BLOOD PANELon 06- BASE EXCESS -2.0 mmol/L Normal -2.0-3.0 [facility] Comment on above: Performed By: #### 3 0738 #### [facility] [address] [place] [address], [facility] Glucose [Mass/Vol] 169 mg/dL High 70-105 [facility] Comment on above: Performed By: #### 3 0738 #### [facility] [address] [place] [address], [facility] Hematocrit (Bld) [Volume fraction] 34 % Low 38-51 [facility] Comment on above: Performed By: #### 3 0738 #### [facility] [address] [place] [address], [facility] Hemoglobin (Bld) [Mass/Vol] 11.6 g/dL Low 12.0-17.0 [facility] Comment on above: Performed By: #### 3 0738 #### [facility] [address] [place] [address], [facility] IONIZED CALCIUM 1.20 mmol/L Normal 1.12-1.32 [facility] Comment on above: Performed By: #### 3 0738 #### [facility] [address] [place] [address], [facility] Oxygen (Bld) [Partial pressure] 410.0 mm[Hg] High 80.0-105.0 [facility] Comment on above: Performed By: #### 3 0738 #### [facility] [address] [place] [address], [facility] PCO2 49.2 mmHg High 35.0-45.0 [facility] Comment on above: Performed By: #### 3 0738 #### [facility] [address] [place] [address], [place] pH (Bld) 7.31 [pH] Low 7.35-7.45 [facility] Comment on above: Performed By: #### 3 0738 #### [facility] [address] [place] [address], [place] Potassium [Moles/Vol] 4.0 mmol/L Normal 3.5-4.9 [facility] Comment on above: Performed By: #### 3 0738 #### [facility] [address] [facility] [place] [place] [address], [facility] Sodium [Moles/Vol] 142 mmol/L Normal 138-146 [facility] Comment on above: Performed By: #### 3 0738 #### [facility] [address] [address], [facility] POC GLUCOSE LABon 11-04-2019 Glucose [Mass/Vol] 196 mg/dL High 70-100 [facility] Comment on above: Performed By: #### 8 5499 #### [facility] [address] [place] [address], [facility] Glucose [Mass/Vol] 215 mg/dL High 70-100 [facility] Comment on above: Performed By: #### 8 5499 #### [facility] [address] [place] [address], [facility] RBC'S 2 UNITSon 11-04-2019 CROSSMATCH INTERP 1 COMP Normal [facility] Comment on above: Performed By: #### 8 6002 #### [facility] [address] [place] [address], [facility] CROSSMATCH INTERP 2 COMP Normal [facility] Comment on above: Performed By: #### 8 6002 #### [facility] [address] [place] [address], [facility] PRODUCT CODE 1 E0336 Normal [facility] Comment on above: Performed By: #### 8 6002 #### [facility] [address] [place] [address], [facility] PRODUCT CODE 2 E0336 Normal [facility] Comment on above: Performed By: #### 8 6002 #### [facility] [address] [place] [address], [place] PRODUCT STATUS 1 RE Normal [facility] Comment on above: Result Comment: Resu lt changed by IF on 11/05/2019 21:39. The previous value was XM. Performed By: #### 8 6002 #### [facility] [address] [place] [address], [place] PRODUCT STATUS 2 RE Normal [facility] Comment on above: Result Comment: Resu lt changed by IF on 11/05/2019 21:39. The previous value was XM. Performed By: #### 8 6002 #### [facility] [address] [place] [address], [place] UNIT ABO 1 A Normal [facility] Comment on above: Performed By: #### 8 6002 #### [facility] [address] [place] [address], [place] UNIT ABO 2 A Normal [facility] Comment on above: Performed By: #### 8 6002 #### [facility] [address] [place] [address], [place] UNIT ID 1 [id number] Normal [facility] Comment on above: Performed By: #### 8 6002 #### [facility] [address] [place] [address], [place] UNIT ID 2 [id number] Normal [facility] Comment on above: Performed By: #### 8 6002 #### [facility] [address] [place] [address], [place] UNIT RH 1 Positive Normal [facility] Comment on above: Performed By: #### 8 6002 #### [facility] [address] [place] [address], [place] UNIT RH 2 Positive Normal [facility] Comment on above: Performed By: #### 8 6002 #### [facility] [address] [place] [address], [place] *MRSA/MSSA DNA NASALon 10-30 *MRSA/MSSA DNA NASAL Clinical Report: (D ) Specimen: NASAL SWAB Collected: 10/31/2019 16:01 Status: Final Last Updated: 11/01/2019 11:35 MSSA DNA (Final) Negative MRSA DNA (Final) Negative Normal [facility] Comment on above: Performed By: #### 8 5499 #### [facility] [address] [facility] [place], [place] [id number] [place] [address] *SARS-CoV-2 COVID-19on 10-30 [id number] Not Detected Normal Not Detected [facility] Comment on above: Order Comment: The A ptima SARS-CoV-2 assay is a nucleic acid amplification test intended for the qualitative detection of RNA from SARS-CoV-2 isolated and purified from nasopharyngeal (DECAY CONTROL OPERATOR), nasal and oropharyngeal (OP) swab specimens from patients with signs and symptoms of infection who are suspected of COVID-19. Results are for the identification of SARS-CoV-2 RNA. The SARS-CoV-2 RNA is generally detectable in nasopharyngeal and oropharyngeal swabs during the acute phase of infection. The Aptima SARS-CoV-2 Assay on the onefinestay and onefinestay Fusion system is intended for use by laboratory personnel specifically instructed and trained in the operation of the [employer] and onefinestay Fusion system. The Aptima SARS-CoV-2 assay is only for use under the Food and Drug Administration Emergency Use Authorization. Testing is limited to laboratories certified under the Clinical Laboratory Improvement Amendments of 1988 (CLIA), 42 U.S.C. ???263a, to perform high complexity tests. Not Detected: Not detected does not preclude SARS-CoV-2 infection and should not be used as the sole basis for patient management decisions. Not detected results must be combined with clinical observations, patient history, and epidemiological information. Performed By: #### [id number] #### [facility] [address] CBC COMPLETE BLOOD COUNTon 0 10-31-2019 Erythrocyte distribution width (RBC) [Ratio] 11.9 % Normal 11.5-15.0 [facility] Comment on above: Performed By: #### [id number] #### [facility] [address] Hematocrit (Bld) [Volume fraction] 41.2 % Normal 39.0-50.0 [facility] Comment on above: Performed By: #### [id number] #### [facility] [address] [place] [address], [facility] Hemoglobin (Bld) [Mass/Vol] 13.8 g/dL Normal 13.0-17.0 [facility] Comment on above: Performed By: #### [id number] #### [facility] [address] [facility] [place] [address], [facility] MCH (RBC) [Entitic mass] 30.4 pg Normal 27.0-33.0 [facility] Comment on above: Performed By: #### [id number] #### [facility] [address] [facility]. [address] MCHC (RBC) [Mass/Vol] 33.5 g/dL Normal 32.0-35.0 [facility] Comment on above: Performed By: #### [id number] #### [facility] [address] [place] [address], [facility] MCV (RBC) [Entitic vol] 90.7 fL Normal 82.0-98.0 [facility] Comment on above: Performed By: #### [id number] #### [facility] [address] [facility]. [address] Nucleated RBC/100 WBC (Bld) [Ratio] 0 % Normal 0-0 [facility] Comment on above: Performed By: #### [id number] #### [facility] [address] [facility] [place] [address], [facility] PLAT CNT 216 10*3/uL Normal 150-400 [facility] Comment on above: Performed By: #### [id number] #### [facility] [address] [facility] [address] RBC (Bld) [#/Vol] 4.54 10*6/uL Normal 4.20-5.70 [facility] Comment on above: Performed By: #### [id number] #### [facility] [address] WBC (Bld) [#/Vol] 8.20 10*3/uL Normal 4.00-10.60 [facility] Comment on above: Performed By: #### [id number] #### [facility] [address] [facility] [address] HEMOGLOBIN A1Con 10-31-2019 HbA1c (Bld) [Mass fraction] 177 mg/dL High 70-126 [facility] Comment on above: Performed By: #### [id number] #### [facility] [address] [facility] [address] HbA1c (Bld) [Mass fraction] 7.8 % High 4.0-6.0 [facility] Comment on above: Performed By: #### [id number] #### [facility] [address] [facility]. [address] PROTHROMBIN TIMEon 0 INR Coag (PPP) [Relative time] 1.39 {INR} High 0.91-1.16 [facility] Comment on above: Result Comment: ACCC P RECOMMENDED INR FOR WARFARIN THERAPY --------- ------- CONDITION INR PROPHYLAXIS OF VENOUS THROMBOSIS 2-3 (HIGH-RISK SURGERY) TREATMENT OF VENOUS THROMBOSIS 2-3 TREATMENT OF PULMONARY EMBOLISM 2-3 PREVENTION OF SYSTEMIC EMBOLISM: 2-3 ACUTE MYOCARDIAL INFARCTION TISSUE HEART VALVES VALVULAR HEART DISEASE ATRIAL FIBRILLATION RECURRENT SYSTEMIC EMBOLISM MECHANICAL HEART VALVE 2.5-3.5 FROM: ORAL ANTICOAGULANTS. MECHANISM OF ACTION, CLINICAL EFFECTIVENESS, AND OPTIMAL THERAPEUTIC RANGE. CHEST 1995;108:231S-246S. Performed By: #### [id number] #### [facility] [address] [place] [address], [place] INR Coag (PPP) [Relative time] 1.38 {INR} High 0.91-1.16 [facility] Comment on above: Result Comment: ACCC P RECOMMENDED INR FOR WARFARIN THERAPY --------- ------- CONDITION INR PROPHYLAXIS OF VENOUS THROMBOSIS 2-3 (HIGH-RISK SURGERY) TREATMENT OF VENOUS THROMBOSIS 2-3 TREATMENT OF PULMONARY EMBOLISM 2-3 PREVENTION OF SYSTEMIC EMBOLISM: 2-3 ACUTE MYOCARDIAL INFARCTION TISSUE HEART VALVES VALVULAR HEART DISEASE ATRIAL FIBRILLATION RECURRENT SYSTEMIC EMBOLISM MECHANICAL HEART VALVE 2.5-3.5 FROM: ORAL ANTICOAGULANTS. MECHANISM OF ACTION, CLINICAL EFFECTIVENESS, AND OPTIMAL THERAPEUTIC RANGE. CHEST 1995;108:231S-246S. Performed By: #### [id number] #### [facility] [address] [place] [address], [place] PT Coag (PPP) [Time] 17.1 s High 12.3-14.8 [facility] Comment on above: Result Comment: ALL RESULTS MUST BE INTERPRETED WITH RESPECT TO BLOOD DRAWING ARTIFACT OR DILUTION ERROR OF ANTICOAGULANT AT THE TIME OF SAMPLING. Performed By: #### [id number] #### [facility] [address] [place] [address], [place] PT Coag (PPP) [Time] 17.2 s High 12.3-14.8 [facility] Comment on above: Result Comment: ALL RESULTS MUST BE INTERPRETED WITH RESPECT TO BLOOD DRAWING ARTIFACT OR DILUTION ERROR OF ANTICOAGULANT AT THE TIME OF SAMPLING. Performed By: #### [id number] #### [facility] [address] [place] [address], [facility] TYPE AND SCREENon 10-31-2019 ABO INTERPRETATION A Normal [facility] Comment on above: Performed By: #### [id number] #### [facility] [address] [place] [address], [facility] RH INTERPRETATION Positive Normal [facility] Comment on above: Performed By: #### [id number] #### [facility] [address] [place] [address], [facility] CBCOrdered By: Blas gonzales on 05-12-2019 Erythrocyte distribution width (RBC) [Ratio] 11.8 % 11.8 - 14.4 % [employer] Phone: Hematocrit (Bld) [Volume fraction] 45.2 % 40.7 - 50.3 % [employer] Phone: Hemoglobin (Bld) [Mass/Vol] 14.6 g/dL 13 - 17 g/dL [employer] Phone: MCH (RBC) [Entitic mass] 30.5 pg 25.2 - 33.5 pg [employer] Phone: MCHC (RBC) [Mass/Vol] 32.3 g/dL 28.4 - 34.8 g/dL [employer] Phone: MCV (RBC) [Entitic vol] 94.4 fL 82.6 - 102.9 fL [employer] Phone: NRBC Automated 0.0 0.0 per 100 WBC [employer] Phone: Platelet mean volume (Bld) [Entitic vol] 9.0 fL 8.1 - 13.5 fL [employer] Work Phone: Platelets (Bld) [#/Vol] 204 10*3/uL [employer] Work Phone: RBC (Bld) [#/Vol] 4.79 10*6/uL 4.21 - 5.77 m/uL [employer] Work Phone: WBC (Bld) [#/Vol] 8.0 10*3/uL [employer] Work Phone: Vital Signs Date Time Vital Sign Value Performing Clinician Facility 06-25-2023 08:50-0500 Blood Pressure Location Cristo RIVERA [facility] 06-25-2023 08:50-0500 Diastolic blood pressure 64 mm[Hg] Cristoantoine RIVERA [facility] 06-25-2023 08:50-0500 Heart rate 74 /min Cristo RIVERA [facility] 06-25-2023 08:50-0500 Respiratory rate 16 /min Cristoantoine RIVERA [facility] 06-25-2023 08:50-0500 Systolic blood pressure 108 mm[Hg] Cristo RIVERA [facility] 02-26-2023 08:57-0400 Blood Pressure Location Cristo RIVERA [facility] 02-26-2023 08:57-0400 Diastolic blood pressure 60 mm[Hg] Cristo RIVERA [facility] 02-26-2023 08:57-0400 Heart rate 69 /min Cristo RIVERA [facility] 02-26-2023 08:57-0400 Respiratory rate 16 /min Cristoantoine RIVERA [facility] 02-26-2023 08:57-0400 Systolic blood pressure 118 mm[Hg] Cristo RIVERA [facility] 11-27-2022 09:34-0400 Blood Pressure Location Cristoantoine RIVERA [facility] 11-27-2022 09:34-0400 Diastolic blood pressure 51 mm[Hg] Cristo RIVERA [facility] 11-27-2022 09:34-0400 Heart rate 64 /min Cristoantoine RIVERA [facility] 11-27-2022 09:34-0400 Respiratory rate 16 /min Cristoantoine RIVERA [facility] 11-27-2022 09:34-0400 Systolic blood pressure 89 mm[Hg] Cristo RIVERA [facility] 09-11-2022 12:30-0400 Body height 165.1 cm Mary Beth Pitts Other [employer] Other 09-11-2022 12:30-0400 Body mass index (BMI) [Ratio] 29.78 kg/m2 Mary Beth Pitts Other [employer] Other 09-11-2022 12:30-0400 Body weight 81.19 kg Mary Beth Pitts Other [employer] Other 09-11-2022 12:30-0400 Diastolic blood pressure 62 mm[Hg] Mary Beth Pitts Other [employer] Other 09-11-2022 12:30-0400 SaO2% (BldA) [Mass fraction] 94 % Mary Beth Pitts Other [employer] Other 09-11-2022 12:30-0400 Systolic blood pressure 110 mm[Hg] Mary Beth Pitts Other [employer] Other 08-24-2022 11:45-0400 Body height 165.1 cm Mary Beth Pitts Other [employer] Other 08-24-2022 11:45-0400 Body mass index (BMI) [Ratio] 29.62 kg/m2 Mary Beth Pitts Other [employer] Other 08-24-2022 11:45-0400 Body weight 80.74 kg Mary Beth Pitts Other [facility] Other 08-24-2022 11:45-0400 Diastolic blood pressure 58 mm[Hg] Mary Beth Pitts Other [employer] Other 08-24-2022 11:45-0400 SaO2% (BldA) [Mass fraction] 95 % Mary Beth Pitts Other [facility] Other 08-24-2022 11:45-0400 Systolic blood pressure 112 mm[Hg] Mary Beth Pitts Other [facility] Other 07-11-2022 09:45-0500 Body height 165.1 cm Mary Beth Pitts Other [facility] Other 07-11-2022 09:45-0500 Body mass index (BMI) [Ratio] 29.62 kg/m2 Mary Beth Pitts Other [facility] Other 07-11-2022 09:45-0500 Body weight 80.74 kg Mary Beth Pitts Other [facility] Other 07-11-2022 09:45-0500 Diastolic blood pressure 52 mm[Hg] Mary Beth Pitts Other [employer] Other 07-11-2022 09:45-0500 SaO2% (BldA) [Mass fraction] 97 % Mary Beth Pitts Other [facility] Other 07-11-2022 09:45-0500 Systolic blood pressure 108 mm[Hg] Mary Beth Pitts Other [employer] Other 06-05-2022 09:38-0500 Diastolic blood pressure 60 mm[Hg] Cristo RIVERA [facility] 06-05-2022 09:38-0500 Mean blood pressure 84 mm[Hg] Cristo RIVERA [facility] 06-05-2022 09:38-0500 Systolic blood pressure 131 mm[Hg] Cristo RIVERA [facility] 06-05-2022 09:32-0500 Blood Pressure Location Cristo RIVERA [facility] 06-05-2022 09:32-0500 Diastolic blood pressure 73 mm[Hg] Cristo RIVERA [facility] 06-05-2022 09:32-0500 Heart rate 74 /min Cristo RIVERA [facility] 06-05-2022 09:32-0500 Respiratory rate 16 /min Cristo RIVERA [facility] 06-05-2022 09:32-0500 Systolic blood pressure 149 mm[Hg] Cristo RIVERA [facility] 03-19-2022 11:53-0500 Body temperature 98 [degF] MD Mary Beth Pitts Work Phone: [facility] 03-19-2022 11:53-0500 Diastolic blood pressure 74 mm[Hg] MD Mary Beth Pitts Work Phone: [facility] 03-19-2022 11:53-0500 Heart rate 86 /min MD Mary Beth Pitts Work Phone: [facility] 03-19-2022 11:53-0500 Respiratory rate 18 /min MD Mary Beth Pitts Work Phone: [facility] 03-19-2022 11:53-0500 SaO2% (BldA) [Mass fraction] 97 % MD Mary Beth Pitts Work Phone: [facility] 03-19-2022 11:53-0500 Systolic blood pressure 135 mm[Hg] MD Mary Beth Pitts Work Phone: [facility] 03-19-2022 05:36-0500 Body weight 91.9 kg MD Mary Beth Pitts Work Phone: [facility] 03-16-2022 23:20-0400 Body height 165.1 cm MD Mary Beth Pitts Work Phone: [facility] 03-14-2022 12:28-0400 Blood Pressure Location Cristo RIVERA [facility] 03-14-2022 12:28-0400 Diastolic blood pressure 74 mm[Hg] Cristo RIVERA [facility] 03-14-2022 12:28-0400 Heart rate 80 /min Cristo RIVERA [facility] 03-14-2022 12:28-0400 Systolic blood pressure 150 mm[Hg] Cristo RIVERA [facility] 02-27-2022 09:24-0400 Blood Pressure Location Cristo RIVERA [facility] 02-27-2022 09:24-0400 Diastolic blood pressure 72 mm[Hg] Cristo RIVERA [facility] 02-27-2022 09:24-0400 Heart rate 83 /min Cristoantoine RIVERA [facility] 02-27-2022 09:24-0400 Respiratory rate 16 /min Cristo RIVERA [facility] 02-27-2022 09:24-0400 Systolic blood pressure 130 mm[Hg] Cristo RIVERA [facility] 09-19-2021 13:45-0400 Diastolic blood pressure 48 mm[Hg] Roberta Vazquez DO Work Phone: [facility] 09-19-2021 13:45-0400 Heart rate 65 /min Roberta Vazquez DO Work Phone: [facility] 09-19-2021 13:45-0400 Respiratory rate 20 /min Roberta Vazquez DO Work Phone: [facility] 09-19-2021 13:45-0400 SaO2% (BldA) [Mass fraction] 95 % Roberta Vazquez DO Work Phone: [facility] 09-19-2021 13:45-0400 Systolic blood pressure 113 mm[Hg] Roberta Vazquez DO Work Phone: [facility] 09-19-2021 13:23-0400 Body temperature 96.91 [degF] Roberta Vazquez DO Work Phone: [facility] 09-19-2021 11:57-0400 Body height 170.2 cm Roberta Vazquez DO Work Phone: [employer] 09-19-2021 [id number] Body mass index (BMI) [Ratio] 25.84 kg/m2 Roberta Vazquez DO Work Phone: [employer] 09-19-2021 11:57-0400 Body weight 74.84 kg [facility] Date Encounter Type Care Provider Facility Start: 07-12-2023 End: 07-12-2023 ambulatory KAMILA WILSON Not Available Start: 06-25-2023 End: 06-26-2023 ambulatory Cristo RIVERA Facility:[facility] Start: 06-25-2023 End: 06-25-2023 Patient encounter procedure Cristo RIVERA [facility] Start: 06-15-2023 End: 06-15-2023 ambulatory [facility] Start: 06-13-2023 ambulatory Lulu X Jaxon Cage y:[facility] Start: 05-28-2023 End: 05-29-2023 ambulatory Cristo RIVERA Facility:[facility] Start: 04-04-2023 End: 04-04-2023 ambulatory Mary Beth Pitts Other [facility] Other Start: 04-04-2023 Telephone encounter Mary Beth Pitts [facility] Start: 02-26-2023 End: 02-27-2023 ambulatory Cristo RIVERA Facility:[facility] Start: 02-26-2023 End: 02-26-2023 Patient encounter procedure [facility] Start: 12-29-2022 End: 12-29-2022 ambulatory Mahendra Escalante Other [facility] Other Start: 12-29-2022 Telephone encounter Mahendra barry [employer] Start: 12-13-2022 End: 12-13-2022 ambulatory [facility] Start: 11-27-2022 End: 11-28-2022 ambulatory Cristo RIVERA Facility:[facility] Start: 11-27-2022 End: 11-27-2022 Patient encounter procedure Cristo RIVERA [facility] Start: 11-23-2022 End: 11-23-2022 ambulatory Mary Beth Pitts Other [facility] Other Start: 11-23-2022 Telephone encounter Mary Beth Pitts [facility] Start: 09-18-2022 End: 09-18-2022 ambulatory Mary Beth Pitts Other [employer] Other Start: 09-18-2022 Telephone encounter Mary Beth Pitts [facility] Start: 09-11-2022 End: 09-11-2022 ambulatory Mary Beth Pitts Other [employer] Other Start: 09-11-2022 Office outpatient vi sit 15 minutes Mary Beth Pitts [facility] Start: 08-24-2022 End: 08-24-2022 ambulatory Mary Beth Pitst Other [facility] Other Start: 08-24-2022 Office outpatient vi sit 15 minutes Mary Beth Pitts [facility] Start: 07-20-2022 End: 07-21-2022 ambulatory Cristo RIVERA Facility:[facility] Start: 07-20-2022 End: 07-20-2022 Patient encounter procedure Cristo RIVERA [facility] Start: 07-18-2022 End: 06-29-2022 Patient encounter procedure Cristo RIVERA [facility] Start: 07-12-2022 End: 07-12-2022 ambulatory Mary Beth Pitts Other [facility] [employer] Other Start: 07-12-2022 Telephone encounter Mary Beth Pitts [facility] Start: 07-11-2022 Office outpatient vi sit 15 minutes Mary Beth Pitts [facility] Start: 07-11-2022 End: 07-11-2022 ambulatory [facility] Alicia Facility:[facility] Start: 07-11-2022 End: 07-11-2022 ambulatory MD Mary Beth Pitts Work Phone: [facility] Work Phone: Start: 07-11-2022 End: 07-11-2022 Patient encounter procedure MD Mary Beth Pitts Work Phone: [facility] [place] Work Phone: Start: 06-29-2022 End: 06-30-2022 ambulatory Cristo RIVERA Facility:[facility] Start: 06-19-2022 End: 06-19-2022 ambulatory [facility] Start: 06-05-2022 End: 06-05-2022 Patient encounter procedure Cristo RIVERA [facility] Start: 04-29-2022 End: 04-30-[address] CRISTO RIVERA Facility: Start: 03-17-[address] Jc Shetty Facility:[id number] Start: 03-17-[address] Mary Beth Pitts Facility:[facility] Start: 03-17-[address] Mary Beth Pitts Facility:[id number] Start: 03-17-2022 End: 03-19-2022 Evaluation and management of inpatient Obaydah Von Moreira Facility:[facility] Start: 03-16-2022 End: 03-19-2022 Evaluation and management of inpatient MD Mary Beth Pitts Work Phone: [facility] Start: 03-16-2022 End: 03-17-2022 ambulatory GALEN TIFFANI MEDINA Facility:[facility] Start: 03-14-2022 End: 03-14-2022 Patient encounter procedure Cristo RIVERA [facility] Start: 03-03-2022 End: 03-04-[address] MARY BETH PITTS Facility:[facility] Start: 02-27-2022 End: 02-27-2022 Patient encounter procedure [facility]IVER[facility] Start: 12-16-2021 End: 12-17-2021 ambulatory BLAS OSPINA [facility] Start: 12-08-2021 Adult health examination Mahendra Boris Other [employer] Other Start: 12-08-2021 Problem, abnormal examination Mahendra Virgenvasiliy Other [employer] Other Start: 12-01-2021 End: 12-02-2021 ambulatory MARY BETH PITTS [facility] Start: 12-01-2021 End: 12-01-2021 Subsequent hospital visit by physician Mary Beth Pitts MD Work Phone: [facility] Start: 09-19-2021 End: 09-19-2021 ambulatory MARY BETH PITTS [facility] Start: 09-19-2021 End: 09-19-2021 Subsequent hospital visit by physician Roberta Vazquez DO Work Phone: [facility] Start: 07-05-2021 End: 07-06-2021 ambulatory Gerald Villagomez MD Facility:[facility] Start: 06-14-2021 End: 06-15-2021 ambulatory MD Mary Beth Pitts Facility:[facility] Start: 06-09-2021 End: 06-09-2021 ambulatory MD Mary Beth Pitts Facility:[facility] Start: 06-08-2021 End: 06-09-2021 ambulatory Gerald Villagomez MD Facility:[facility] Start: 06-02-2021 End: 06-03-2021 ambulatory MD Mary Beth Pitts Facility:[facility] Start: 05-27-2021 End: 05-28-2021 ambulatory Gerald Villagomez MD Facility:[facility] Start: 05-19-2021 End: 05-20-2021 ambulatory MD Mary Beth Pitts Facility:[facility] Start: 09-27-2020 End: 09-27-2020 Subsequent hospital visit by physician Mary Beth Pitts MD Work Phone: [facility] Start: 03-29-2020 End: 03-30-2020 Patient encounter procedure SWETHA WINTER Facility:[facility] Start: 02-23-2020 End: 02-24-2020 Patient encounter procedure MARY BETH PITTS Facility:[facility] Start: 02-12-2020 End: 02-14-2020 Evaluation and management of inpatient PEREZ ALI Facility:[facility] Start: 11-04-2019 End: 11-05-2019 Evaluation and management of inpatient SANTANA NITINROOR Facility:[facility] Start: 05-12-2019 End: 05-12-2019 Subsequent hospital visit by physician Mary Beth Pitts MD Work Phone: [email or web address] Procedures Date Procedure Procedure Detail Performing Clinician Start: 07-18-2022 Cystoscopy Cristo MARTIN Start: 07-11-2022 Plain X-ray of right hip MD Mary Beth Pitts Work Phone: Start: 03-17-2022 [facility] Angio w/grafts MD Mary Beth Pitts Work Phone: Start: 03-14-2022 Cystoscopy Cristo MARTIN Start: 03-14-2022 Cystourethroscopy wi th dilation of urethral stricture Cristo RIVERA Start: 12-01-2021 PSA screening Mary Beth richey MD Work Phone: Comment on above: The [employer] ECLIA as say is used. Results obtained with different assay methods cannot be used interchangeably. Start: 12-01-2021 Comprehensive metabolic panel Mary Beth Pitts MD Work Phone: Start: 12-01-2021 Lipid panel Mary Beth lemos MD Work Phone: Start: 09-27-2020 Blood count complete auto&auto difrntl wbc Mary Beth Pitts MD Work Phone: Start: 02-13-2020 REPOSITION LEFT TIBI A WITH INTRAMED FIX, PERC APPROACH JONY EBRAHEIM Start: 02-12-2020 Antibody screen NIC AYALA Comment on above: Performed By: #### [id number] ####[facility] Start: 11-04-2019 MEASURE OF ARTERIAL SATURATION, PERIPHERAL, PERC APPROACH REYNALDO COX Start: 11-04-2019 MEASURE OF CARDIAC S AMPL \T\ PRESSURE, L HEART, PERC APPROACH BLAS OSPINA Start: 11-04-2019 REPLACEMENT OF AORTI C VALVE WITH ZOOPLASTIC, PERC APPROACH SANTANA REAGAN Start: 10-31-2019 Antibody screen NIC AYALA Comment on above: Performed By: #### [id number] #### [facility] [address] Start: 05-12-2019 Blood count complete automated Blas Ospina MD Work Phone: Start: 03-03-2015 Screening for malign ant neoplasm of prostate Mahendra Langvasiliy Other Cataract (disorder) Cristo RIVERA Coronary artery bypa ss grafts x 4 Cristo RIVERA Replacement of aortic valve Cristo RIVERA Screening for malign ant neoplasm of prostate Mary Beth Pitts Other Screening for malign ant neoplasm of prostate Mahendra Virgenvasiliy Other Urine culture MD Mary Beth murcia Work Phone: Plan of Treatment Date Care Activity Detail Author Start: 11-19-2023 ambulatory Ambulatory Facility:[facility] Start: 07-11-2022 Duplex scan of lower limb veins US venous duplex LE RT [facility] Start: 07-11-2022 US Lower extremity v ein - right [facility] Start: 03-21-2022 [facility] Start: 03-20-2022 Blood chemistry [facility] Start: 03-20-2022 [facility] Start: 03-19-2022 [facility] Start: 03-18-2022 Referral to urologist [facility] Start: 03-17-2022 [facility] Start: 03-17-2022 Hospital admission [facility] Start: 03-17-2022 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 [facility] Start: 03-17-2022 [facility] Start: 01-12-2022 Influenza vaccination [employer] Start: 09-19-2021 End: 09-19-2021 Xcapsl ctrc rmvl insj io lens prosth w/o ecp EYE CATARACT EMULSIFICATION IOL IMPLANT COMBINED FORMS OF AGE RELATED CATARACT 2+NS, 2+PSC, 2+CS 09/19/2021 12:45 PM EDT [facility] Start: 09-04-2021 COVID-19 Vaccine (4 - Booster for Pfizer series) COVID-19 Vaccine (4 - Booster for Pfizer series) TITA CARRERA [employer] Start: 01-12-2021 Influenza vaccination Flu vacc ine (Season Ended) [employer] Phone: Start: 03-21-2019 A1C test (Diabetic o r Prediabetic) A1C test (Diabetic or Prediabetic) [employer] Phone: Start: 03-21-2019 Creatinine measurement [employer] Start: 03-21-2019 Creatinine monitoring Creatinine mon itoring [employer] Phone: Start: 03-21-2019 Diabetic microalbumi lucila test Diabetic microalbuminuria test [employer] Phone: Start: 03-21-2019 Hemoglobin A1c measurement A1C test (Diabetic or Prediabetic) [employer] Phone: Start: 03-21-2019 Lipid panel [facility] Start: 03-21-2019 Lipid screen [facility] [employer] [facility] Work Phone: Start: 03-21-2019 Potassium [Moles/vol ume] in Serum or Plasma Potassium [employer] Start: 03-21-2019 Potassium monitoring Potassium monit oring [employer] Phone: Start: 01-12-2019 Influenza vaccination Flu vaccine (# 1) [employer] Phone: Start: 11-03-2018 Annual Wellness Visi t (AWV) Annual Wellness Visit (AWV) [employer] Phone: Start: 06-21-2018 Hemoglobin A1c measurement A1C test (Diabetic or Prediabetic) [employer] Start: 2013 Abdominal aortic ane urysm screening AAA screen [employer] Start: 2013 Pneumococcal 65+ yea rs Vaccine (1 - PCV) Pneumococcal 65+ years Vaccine (1 - PCV) [employer] Start: 2013 Pneumococcal 65+ yea rs Vaccine (1 of 1 - PPSV23) Pneumococcal 65+ years Vaccine (1 of 1 - PPSV23) [employer] Phone: Start: 1998 Colon cancer screen colonoscopy Colon cancer screen colonoscopy [employer] Phone: Start: 1998 Screening for malign ant neoplasm of colon Colon cancer screen colonoscopy [employer] Phone: Start: 1998 Shingles Vaccine (1 of 2) Shingles V accine (1 of 2) [employer] Start: 1993 Screening for malign ant neoplasm of colon [employer] Start: 1967 DTaP/Tdap/Td vaccine (1 - Tdap) DTaP/Tdap/Td vaccine (1 - Tdap) [employer] Start: 1966 Hepatitis C screening Hepatitis C sc reen [employer] Start: 1960 COVID-19 Vaccine (1) COVID-19 Vaccin e (1) [employer] Phone: Start: 1960 Depression Screen Depression Screen [employer] Start: 1959 DTaP/Tdap/Td vaccine (1 - Tdap) DTaP/Tdap/Td vaccine (1 - Tdap) [employer] Phone: Start: 1958 3 comp foot exam completed Diabetic foot exam [employer] Phone: Start: 1958 Diabetic foot examination Diabetic f oot exam [employer] Phone: Start: 1958 Diabetic retinal exam Diabetic retin al exam [employer] Phone: Start: 1948 AAA screen AAA screen [employer] Phone: Start: 1948 Abdominal aortic ane urysm screening AAA screen [employer] Phone: Start: 1948 Annual Wellness Visi t (AWV) Annual Wellness Visit (AWV) [employer] Start: 1948 Hepatitis C screen Hepatitis C kristi murcia [employer] Phone: Start: 1948 Hepatitis C screening Hepatitis C joby cordero [employer] Phone: Blood culture for bacteria, including anaerobic screen Blood Culture [facility] End: 12-01-2021 Hemoglobin A1c/Hemoglobin.total in Blood [facility] [employer] Phone: Comment on above: Once for 1 Occurrenc es starting 12/01/2021 until 12/01/2021 Oxygen therapy [[facility] Data Set] Initiate Oxygen Therapy Protocol Respiratory Care Routine Daily until discontinued starting 09/19/2021 [employer] Phone: Comment on above: Daily until disconti nued starting 09/19/2021 Patient Education Urinary Tract Infection, Adult (DC) Sepsis, Adult (DC) [facility] Work Phone: Patient referral [facility] Work Phone: Immunizations Immunization Date Immunization Notes Care Provider Fa dorie 08-28-2022 tetanus and diphther ia toxoids, adsorbed, preservative free, for adult use (5 Lf of tetanus toxoid and 2 Lf of diphtheria toxoid) Mary Beth Pitts Other [employer] Other 05-06-2021 COVID-19, Pfizer Purple top, DILUTE for use, 12+ yrs, 30mcg/0.3mL dose Roberta Vazquez DO Work Phone: [employer] Work Phone: 10-22-2020 COVID-19, Pfizer Purple top, DILUTE for use, 12+ yrs, 30mcg/0.3mL dose Roberta Vazquez DO Work Phone: [employer] Work Phone: 10-01-2020 COVID-19, Pfizer Purple top, DILUTE for use, 12+ yrs, 30mcg/0.3mL dose Roberta Vazquez DO Work Phone: [employer] Phone: Payers Date Payer Category Payer Medicare [id number] 2022 Unknown [id number] 2021 Self-pay [id number] 2021 Medicaid 2020 Private Health Insurance 2017 Private Health Insurance [id number] 2014 Medicare MEDICARE MEDICAR E PART A AND B xxxxxxxxxxx 2014-Present [phone] [place] [address] xxxxxxxxxxx [id number] 1959 Medicaid [id number] 1948 Unknown [id number] 2.16.840.1.113892.3.579.2. 647 1948 Unknown [id number] 2.16.840.1.503532.3.579.2. 647 1948 Unknown [id number] 2.16.840.1.752049.3.579.2. 647 1948 Unknown [id number] 2.16.840.1.511017.3.579.2. 647 1948 Unknown [id number] 2.16.840.1.043473.3.579.2. 173 1948 Unknown [id number] 2.16.840.1.964983.3.579.2. 173 1948 Unknown [id number] 2.16.840.1.963533.3.579.2. 173 1948 Unknown [id number] 2.16.840.1.449139.3.579.2. 356 1948 Unknown [id number] 2.16.840.1.781094.3.579.2. 356 1948 Unknown [id number] 2.16.840.1.641157.3.579.2. 356 1948 Unknown [id number] 2.16.840.1.849095.3.579.2. 593 1948 Unknown [id number] 2.16.840.1.825514.3.579.2. 593 1948 Unknown [id number] 2.16.840.1.756923.3.579.2. 593 1948 Unknown [id number] 2.16.840.1.064249.3.579.2. 196 1948 Unknown [id number] 2.16.840.1.014050.3.579.2. 196 1948 Unknown [id number] 2.16.840.1.774575.3.579.2. 196 1948 Unknown [id number] 2.16.840.1.924759.3.579.2. 196 1948 Unknown [id number] 2.16.840.1.899389.3.579.2. 196 1948 Unknown [id number] 2.16.840.1.386782.3.579.2. 196 1948 Unknown [id number] 2.16.840.1.423673.3.579.2. 196 1948 Unknown [id number] 2.16.840.1.003349.3.579.2. 72 1948 Unknown [id number] 2.16.840.1.614762.3.579.2. 72 1948 Unknown [id number] 2.16.840.1.569506.3.579.2. 727 1948 Unknown [id number] 2.16.840.1.609332.3.579.2. 727 1948 Unknown [id number] 2.16.840.1.265039.3.579.2. 72 1948 Unknown [id number] 2.16.840.1.231422.3.579.2. 727 1948 Unknown [id number] 2.16.840.1.225476.3.579.2. 72 1948 Unknown [id number] 2.16.840.1.868351.3.579.2. 72 1948 Unknown [id number] 2.16.840.1.008114.3.579.2. 1259 Medicare [id number] 2.16.840.1.655866.19 Unknown [id number] 2.16.840.1.091465.3.579.2. 531 Unknown [id number] 2.16.840.1.359464.3.579.2. 531 Social History Date Type Detail Facility Start: 10-29-2014 End: 06-05-2022 Tobacco smoking status NHIS Former smoker [employer] End: 05-14-1994 History of tobacco use Current smoker [employer] Start: 10-29-2014 End: 09-19-2021 Alcohol intake Current non-drinker of alcohol (finding) [employer] Phone: Start: 1950 [facility] Start: 09-09-2021 End: 09-19-2021 Exposure to SARS-CoV-2 (event) Not sure [employer] Work Phone: End: 05-14-1994 History of tobacco use Cigarette Smoker [facility] [employer] Work Phone: Start: 09-19-2021 Tobacco use and exposure Smokeless tobacco non-user [employer] Work Phone: Start: 06-25-2023 Tobacco smoking status Never [facility] Sex Assigned At Male [facility] Start: 1950 Sex Assigned At Male F [facility] Medical Equipment Procedure Code Equipment Code Equipment Origin al Text Equipment Identifier Dates Lens Intraocular Bcnvx 19+ Diopt 6x12.5 Mm Acryl [employer] - [id number] Start: 09-19-2021 Accu-Chek Softcl ix Lancets - Start: 11-22-2022 Goals Date Patient Goal Desired Activity /State Functional Status Date Assessment Result Facility 06-25-2023 Functional Status N/A [facility] 02-26-2023 Functional Status N/A [facility] 11-27-2022 Functional Status N/A [facility] 06-05-2022 Functional Status N/A [facility] 03-19-2022 Functional status Patient at Baseline [facility] Work Phone: 03-16-2022 Functional status Functional Status Comme nt [facility] Work Phone: 03-14-2022 Functional Status N/A [facility] 02-27-2022 Functional Status N/A [facility] Mental Status Date Assessment Result Facility 03-19-2022 Cognitive function Cognitive Sta tus Patient at Baseline [facility] Work Phone: Clinical Notes 06-09-2021 to 06-25-2023 Note Date & Type Note Facility 06-25-2023 Hospital Discharge instructions Patient Education 06/25/2023 09:48:36 Testicular Self-Exam Testicular Self-Exam A self-examination of your testicles (testicular self-exam) involves looking at and feeling your testicles for abnormal lumps or swelling. Several things can cause swelling, lumps, or pain in your testicles. Some of these causes are: Injuries. Inflammation. Infection. Buildup of fluids around the testicle (hydrocele). Twisted testicles (testicular torsion). Testicular cancer. You may be at risk for testicular cancer if you have: ?An undescended testicle (cryptorchidism). ?A history of previous testicular cancer. ?A family history of testicular cancer. General tips and recommendations The testicles are easiest to examine after a warm bath or shower. They are more difficult to examine when you are cold because the muscles attached to the testicles retract and pull them up higher or into the abdomen. A normal testicle is egg-shaped and feels firm. It is smooth and not tender. It is normal to feel a firm, spaghetti-like cord at the back of your testicle. This is the spermatic cord. How to do a testicular self-exam 1.Stand and hold your penis away from your body. 2.Look at each testicle to check for changes in appearance, such as swelling or changes in size or shape. 3.Roll each testicle between your thumb and forefinger, feeling the entire testicle. Feel for: Lumps. Swelling. Discomfort. 4.Check the groin area between your abdomen and upper thighs on both sides of your body. Look and feel for any swelling or bumps that are tender. These could be enlarged lymph nodes. Contact a health care provider if: You find any bumps or lumps, such as a small, hard, pea-sized lump. You find swelling, pain, or soreness. You see or feel any other changes in your testicles. Summary A self-examination of your testicles (testicular self-exam) involves looking at and feeling your testicles for any changes. Check each of your testicles for lumps, swelling, or discomfort. These changes can be caused by many things. Check for swelling or tender bumps in your groin area between your lower abdomen and upper thighs. This information is not intended to replace advice given to you by your health care provider. Make sure you discuss any questions you have with your health care provider. Document Revised: 04/05/2020 Document Reviewed: 04/05/2020 [employer] Patient Education 2022 [employer]. Follow Up Care 06/20/2023 07:47:35 With:NICOLE DIAZ, Cristo Frances, URL Address: [facility] [address] , [place] [address] [phone] When: Unknown Comments:has f/u scheduled 11/19/23 [facility] 06-15-2023 Note [place] [facility] Subjective Marilu Dan is a 73 y.o. year old male patient being seen for 6 mo follow up aortic valve stenosis s/p TAVR, CAD, and hypertension. No recent labs/imaging. Denies chest pain, palpitations, and lightheadedness. Has not been checking his BP at home. PUENTE and LE edema remain stable and unchanged. Patient Active Problem List Diagnosis Aortic valve stenosis Chest pain Closed fracture of shaft of tibia Coronary arteriosclerosis Deep venous thrombosis of lower extremity (CMS/HCC) Dyspnea Hypertensive disorder Family History Problem Relation Name Age of Onset Diabetes Mother Heart attack Mother Diabetes Father Heart attack Father Breast cancer Sister Colon cancer Brother Cervical cancer Child Social History Tobacco Use Smoking status: Former Types: Cigarettes Smokeless tobacco: Never Substance Use Topics Alcohol use: Never Drug use: Never HPI Mr Dan is seen in follow up. He has CAD, s/p bypass surgery, aortic stenosis now status post TAVR, hypertension and hyperlipidemia. Visit of 04/19/2015: He was investigated for typical unstable angina. His coronary angiogram on 09/10/2014 showed severe 3 vessel disease. He underwent CABG surgery on 09/14/2014. Bypasses were: 1. PIERCE to LAD. 2. Reverse saphenous vein from aorta to obtuse marginal. 3. Reverse saphenous vein from aorta to second diagonal. 4. Reverse saphenous vein from aorta to posterior descending coronary. He has history of: 1. diabetes on treatment. 2. Hypertension on treatment. 3. Hyperlipidemia on treatment. 4. He is an ex-smoker. 5. 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 Has been on coumadin since 1979 on and off. When he stops coumadin he says the DVT recurs. One time he also had a PE. 6. COPD - severe by PFTs in 2013. 7. skin cancer Coumadin was stopped after the surgery. Echocardiogram 09/01/2014: lower limit of normal LV systolic function, Grade 1 diastolic dysfunction, mild aortic valve stenosis, normal right sided pressures. He did cardiac rehab. His labs 04/13/2015 showed TG 63, LDL 58, HbA1C 6.1, with normal CBC and chem otherwise. visit of 03/15/2016: He was seen on 03/01/2016 as a sick call as he has been having symptoms of chest pain and shortness of breath on mild exertion in the past 2 months. He has history of DVT in the past with no current symptoms in that regard. His ECG 03/01/2016 showed sinus bradycardia with T-wave inversion in V1-3. He underwent cardiac catheterization on 03/02/2016 and this showed: 1. Severe 3-vessel coronary artery disease. 2. Patent 4/4 bypass grafts. 3. A 50% disease in the saphenous venous graft to the diagonal branch; however, this diagonal branch itself is of very small caliber. He was recommended medical therapy. Imdur was added. He has been feeling better, currently has no pain. He says he still gets discomfort when he goes out in the cold. His CXR on 03/03/2016 was non revealing. 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 Duplex of upper extremity 06/17/2018 showed SVT and DVT involving the brachial, antecubital, and distal forearm veins. He was started on xarelto (currently taking 30 mg daily) to switch to 20 mg daily after the initial 3 week period. His arm swelling has resolved. He has no pain. He has been well otherwise with no chest pain and no significant shortness of breath. 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 He has no claudication. His blood pressure has been controlled. We had reduced lisinopril to 5 mg daily due to cough on the 10 mg daily. Prior testing: Echocardiogram 2018: Global left ventricular systolic function is normal (Visually estimated EF 60%). Concentric left ventricular hypertrophy. Normal diastolic function. The aortic valve is thickened with reduced cusp mobility The valve is possibly bicuspid with raphe. Moderate aortic valve stenosis. No aortic valve regurgitation. Unable to assess right sided pressures due to lack of measurable tricuspid regurgitation. The peak instantaneous transvalvular aortic gradient = 33 mmHg with mean gradient = 21 mmHg and aortic valve area = 1.1 cm2 by continuity equation. The dimensionless index = 0.30 (less than 0.25 is consistent with severe aortic stenosis.) Compared to the prior echocardiogram of 04/20/17 there is no significant change. Echocardiogram 04/17/2017: Global left ventricular systolic function is normal (Visually estimated EF 60%). Mild left ventricular hypertrophy. No regional wall motion abnormality. Grade 1, mild diastolic dysfunction (abnormal relaxation). Normal right ventricular systolic function. Moderate aortic valve stenosis. No aortic valve regurgitation. Visit of 05/01/2019: He is seen in follow-up. At last visit he (more content not included)... [facility] Evaluation note Encounter Date Diagnosis Assessment Notes Mar, Hyperglycemia due to type 2 diabetes mellitus (ICD-10 - E11.65) [employer] Other [id number] Hospital Discharge instructions Patient Education 02/26/2023 10:11:01 Benign Prostatic Hyperplasia Benign Prostatic Hyperplasia Benign prostatic hyperplasia (BPH) is an enlarged prostate gland that is caused by the normal agingprocess. The prostate may get bigger as a man gets older. The condition is not caused by cancer. The prostate is a walnut-sized gland that is involved in the production of semen. It is located in front of the rectum and below the bladder. The bladder stores urine. The urethra carries stored urine ou t of the body. An enlarged prostate can press on the urethra. This can make it harder to pass urine. The buildup of urine in the bladder can cause infection. Back pressure and infection may progress to bladder damage and kidney (renal) failure. What are the causes? This condition is part of the normal aging process. However, not all men develop problems from thiscondition. If the prostate enlarges away from the urethra, urine flow will not be blocked. If it enlarges toward the urethra and compresses it, there will be problems passing urine. What increases the risk? This condition is more likely to develop in men older than 50 years. What are the signs or symptoms? Symptoms of this condition include: Getting up often during the night to urinate. Needing to urinate frequently during the day. Difficulty starting urine flow. Decrease in size and strength of your urine stream. Leaking (dribbling) after urinating. Inability to pass urine. This needs immediate treatment. Inability to completely empty your bladder. Pain when you pass urine. This is more common if there is also an infection. Urinary tract infection (UTI). How is this diagnosed? This condition is diagnosed based on your medical history, a physical exam, and your symptoms. Tests will also be done, such as: A post-void bladder scan. This measures any amount of urine that may remain in your bladder after you finish urinating. A digital rectal exam. In a rectal exam, your health care provider checks your prostate by putting a lubricated, gloved finger into your rectum to feel the back of your prostate gland. This exam detects the size of your gland and any abnormal lumps or growths. An exam of your urine (urinalysis). A prostate specific antigen (PSA) screening. This is a blood test used to screen for prostate cancer. An ultrasound. This test uses sound waves to electronically produce a picture of your prostate gland. Your health care provider may refer you to a specialist in kidney and prostate diseases (urologist). How is this treated? Once symptoms begin, your health care provider will monitor your condition (active surveillance or watchful waiting). Treatment for this condition will depend on the severity of your condition. Treatment may include: Observation and yearly exams. This may be the only treatment needed if your condition and symptoms are mild. Medicines to relieve your symptoms, including: ?Medicines to shrink the prostate. ?Medicines to relax the muscle of the prostate. Surgery in severe cases. Surgery may include: ?Prostatectomy. In this procedure, the prostate tissue is removed completely through an open incision or with a laparoscope or robotics. ?Transurethral resection of the prostate (TURP). In this procedure, a tool is inserted through the opening at the tip of the penis (urethra). It is used to cut away tissue of the inner core of the prostate. The pieces are removed through the same opening of the penis. This removes the blockage. ?Transurethral incision (TUIP). In this procedure, small cuts are made in the prostate. This lessens the prostate's pressure on the urethra. ?Transurethral microwave thermotherapy (TUMT). This procedure uses microwaves to create heat. The heat destroys and removes a small amount of prostate tissue. ?Transurethral needle ablation (TUNA). This procedure uses radio frequencies to destroy and remove a small amount of prostate tissue. ?Interstitial laser coagulation (ILC). This procedure uses a laser to destroy and remove a small amount of prostate tissue. ?Transurethral electrovaporization (TUVP). This procedure uses electrodes to destroy and remove a small amount of prostate tissue. ?Prostatic urethral lift. This procedure inserts an implant to push the lobes of the prostate away from the urethra. Follow these instructions at home: Take [id number] and prescription medicines only as told by your health care provider. Monitor your symptoms for any changes. Contact your health care provider with any changes. Avoid drinking large amounts of liquid before going to bed or out in public. Avoid or reduce how much caffeine or alcohol you drink. Give yourself time when you urinate. Keep all follow-up visits. This is important. Contact a health care provider if: You have unexplained back pain. Your symptoms do not get better with treatment. You develop side effects from the medicine you are taking. Your urine becomes very dark or has a bad smell. Your lower abdomen becomes distended and you have trouble passing urine. Get help right away if: You have a fever or chills. You suddenly cannot urinate. You feel light-headed or very dizzy, or you faint. There are large amounts of blood or clots in your urine. Your urinary problems become hard to manage. You develop moderate to severe low back or flank pain. The flank is the side of your body between the ribs and the hip. These symptoms may be an emergency. Get help right away. Call 911. Do not wait to see if the symptoms will go away. Do not drive yourself to the hospital. Summary Benign prostatic hyperplasia (BPH) is an enlarged prostate that is caused by the normal aging process. It is not caused by cancer. An enlarged prostate can press on the urethra. This can make it hard to pass urine. This condition is more likely to develop in men older than 50 years. Get help right away if you suddenly cannot urinate. This information is not intended to replace advice given to you by your health care provider. Make sure you discuss any questions you have with your health care provider. Document Revised: 11/16/2021 Document Reviewed: 11/16/2021 [employer] Patient Education 2022 [employer]. Follow Up Care 11/27/2022 10:22:53 With:NICOLE DIAZ, Cristo Frances, URL Address: [facility] [address] , [place] [address]- When:Within 3 Month(s) Comments:w/AFSHAN [facility] 08-02-2023 Note[place] [facility] - [facility] Subjective Marilu Dan is a 72 y.o. year old male patient being seen for 6 mo follow up aortic valve stenosis, CAD, and hypertension. He had an echo yesterday at [facility] [place]. BP has been much better lately. He denies chest pain and lightheadedness. Has LE edema, R >L. No recent labs. Patient Active Problem List Diagnosis Aortic valve stenosis Chest pain Closed fracture of shaft of tibia Coronary arteriosclerosis Deep venous thrombosis of lower extremity (CMS/HCC) Dyspnea Hypertensive disorder Family History Problem Relation Name Age of Onset Diabetes Mother Heart attack Mother Diabetes Father Heart attack Father Breast cancer Sister Colon cancer Brother Cervical cancer Child Social History Tobacco Use Smoking status: Former Types: Cigarettes Smokeless tobacco: Never Substance Use Topics Alcohol use: Never Drug use: Never HPI Mr Dan is seen in follow up. He has CAD, s/p bypass surgery, aortic stenosis now status post TAVR, hypertension and hyperlipidemia. Visit of 04/19/2015: He was investigated for typical unstable angina. His coronary angiogram on 09/10/2014 showed severe 3 vessel disease. He underwent CABG surgery on 09/14/2014. Bypasses were: 1. PIERCE to LAD. 2. Reverse saphenous vein from aorta to obtuse marginal. 3. Reverse saphenous vein from aorta to second diagonal. 4. Reverse saphenous vein from aorta to posterior descending coronary. He has history of: 1. diabetes on treatment. 2. Hypertension on treatment. 3. Hyperlipidemia on treatment. 4. He is an ex-smoker. 5. 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 Has been on coumadin since 1979 on and off. When he stops coumadin he says the DVT recurs. One time he also had a PE. 6. COPD - severe by PFTs in 2013. 7. skin cancer Coumadin was stopped after the surgery. Echocardiogram 09/01/2014: lower limit of normal LV systolic function, Grade 1 diastolic dysfunction, mild aortic valve stenosis, normal right sided pressures. He did cardiac rehab. His labs 04/13/2015 showed TG 63, LDL 58, HbA1C 6.1, with normal CBC and chem otherwise. visit of 03/15/2016: He was seen on 03/01/2016 as a sick call as he has been having symptoms of chest pain and shortness of breath on mild exertion in the past 2 months. He has history of DVT in the past with no current symptoms in that regard. His ECG 03/01/2016 showed sinus bradycardia with T-wave inversion in V1-3. He underwent cardiac catheterization on 03/02/2016 and this showed: 1. Severe 3-vessel coronary artery disease. 2. Patent 4/4 bypass grafts. 3. A 50% disease in the saphenous venous graft to the diagonal branch; however, this diagonal branch itself is of very small caliber. He was recommended medical therapy. Imdur was added. He has been feeling better, currently has no pain. He says he still gets discomfort when he goes out in the cold. His CXR on 03/03/2016 was non revealing. 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 Duplex of upper extremity 06/17/2018 showed SVT and DVT involving the brachial, antecubital, and distal forearm veins. He was started on xarelto (currently taking 30 mg daily) to switch to 20 mg daily after the initial 3 week period. His arm swelling has resolved. He has no pain. He has been well otherwise with no chest pain and no significant shortness of breath. 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 He has no claudication. His blood pressure has been controlled. We had reduced lisinopril to 5 mg daily due to cough on the 10 mg daily. Prior testing: Echocardiogram 2018: Global left ventricular systolic function is normal (Visually estimated EF 60%). Concentric left ventricular hypertrophy. Normal diastolic function. The aortic valve is thickened with reduced cusp mobility The valve is possibly bicuspid with raphe. Moderate aortic valve stenosis. No aortic valve regurgitation. Unable to assess right sided pressures due to lack of measurable tricuspid regurgitation. The peak instantaneous transvalvular aortic gradient = 33 mmHg with mean gradient = 21 mmHg and aortic valve area = 1.1 cm2 by continuity equation. The dimensionless index = 0.30 (less than 0.25 is consistent with severe aortic stenosis.) Compared to the prior echocardiogram of 04/20/17 there is no significant change. Echocardiogram 04/17/2017: Global left ventricular systolic function is normal (Visually estimated EF 60%). Mild left ventricular hypertrophy. No regional wall motion abnormality. Grade 1, mild diastolic dysfunction (abnormal relaxation). Normal right ventricular systolic function. Moderate aortic valve stenosis. No aortic valve regurgitation. Visit of 05/01/2019: He is seen in follow-up. At last visit he was diagnosed with left uppe (more content not included)... [facility] Discharge instructions Patient Education 11/27/2022 10:11:18 Benign Prostatic Hyperplasia Benign Prostatic Hyperplasia Benign prostatic hyperplasia (BPH) is an enlarged prostate gland that is caused by the normal agingprocess. The prostate may get bigger as a man gets older. The condition is not caused by cancer. The prostate is a walnut-sized gland that is involved in the production of semen. It is located in front of the rectum and below the bladder. The bladder stores urine. The urethra carries stored urine ou t of the body. An enlarged prostate can press on the urethra. This can make it harder to pass urine. The buildup of urine in the bladder can cause infection. Back pressure and infection may progress to bladder damage and kidney (renal) failure. What are the causes? This condition is part of the normal aging process. However, not all men develop problems from thiscondition. If the prostate enlarges away from the urethra, urine flow will not be blocked. If it enlarges toward the urethra and compresses it, there will be problems passing urine. What increases the risk? This condition is more likely to develop in men older than 50 years. What are the signs or symptoms? Symptoms of this condition include: Getting up often during the night to urinate. Needing to urinate frequently during the day. Difficulty starting urine flow. Decrease in size and strength of your urine stream. Leaking (dribbling) after urinating. Inability to pass urine. This needs immediate treatment. Inability to completely empty your bladder. Pain when you pass urine. This is more common if there is also an infection. Urinary tract infection (UTI). How is this diagnosed? This condition is diagnosed based on your medical history, a physical exam, and your symptoms. Tests will also be done, such as: A post-void bladder scan. This measures any amount of urine that may remain in your bladder after you finish urinating. A digital rectal exam. In a rectal exam, your health care provider checks your prostate by putting a lubricated, gloved finger into your rectum to feel the back of your prostate gland. This exam detects the size of your gland and any abnormal lumps or growths. An exam of your urine (urinalysis). A prostate specific antigen (PSA) screening. This is a blood test used to screen for prostate cancer. An ultrasound. This test uses sound waves to electronically produce a picture of your prostate gland. Your health care provider may refer you to a specialist in kidney and prostate diseases (urologist). How is this treated? Once symptoms begin, your health care provider will monitor your condition (active surveillance or watchful waiting). Treatment for this condition will depend on the severity of your condition. Treatment may include: Observation and yearly exams. This may be the only treatment needed if your condition and symptoms are mild. Medicines to relieve your symptoms, including: ?Medicines to shrink the prostate. ?Medicines to relax the muscle of the prostate. Surgery in severe cases. Surgery may include: ?Prostatectomy. In this procedure, the prostate tissue is removed completely through an open incision or with a laparoscope or robotics. ?Transurethral resection of the prostate (TURP). In this procedure, a tool is inserted through the opening at the tip of the penis (urethra). It is used to cut away tissue of the inner core of the prostate. The pieces are removed through the same opening of the penis. This removes the blockage. ?Transurethral incision (TUIP). In this procedure, small cuts are made in the prostate. This lessens the prostate's pressure on the urethra. ?Transurethral microwave thermotherapy (TUMT). This procedure uses microwaves to create heat. The heat destroys and removes a small amount of prostate tissue. ?Transurethral needle ablation (TUNA). This procedure uses radio frequencies to destroy and remove a small amount of prostate tissue. ?Interstitial laser coagulation (ILC). This procedure uses a laser to destroy and remove a small amount of prostate tissue. ?Transurethral electrovaporization (TUVP). This procedure uses electrodes to destroy and remove a small amount of prostate tissue. ?Prostatic urethral lift. This procedure inserts an implant to push the lobes of the prostate away from the urethra. Follow these instructions at home: Take [id number] and prescription medicines only as told by your health care provider. Monitor your symptoms for any changes. Contact your health care provider with any changes. Avoid drinking large amounts of liquid before going to bed or out in public. Avoid or reduce how much caffeine or alcohol you drink. Give yourself time when you urinate. Keep all follow-up visits. This is important. Contact a health care provider if: You have unexplained back pain. Your symptoms do not get better with treatment. You develop side effects from the medicine you are taking. Your urine becomes very dark or has a bad smell. Your lower abdomen becomes distended and you have trouble passing urine. Get help right away if: You have a fever or chills. You suddenly cannot urinate. You feel light-headed or very dizzy, or you faint. There are large amounts of blood or clots in your urine. Your urinary problems become hard to manage. You develop moderate to severe low back or flank pain. The flank is the side of your body between the ribs and the hip. These symptoms may be an emergency. Get help right away. Call 911. Do not wait to see if the symptoms will go away. Do not drive yourself to the hospital. Summary Benign prostatic hyperplasia (BPH) is an enlarged prostate that is caused by the normal aging process. It is not caused by cancer. An enlarged prostate can press on the urethra. This can make it hard to pass urine. This condition is more likely to develop in men older than 50 years. Get help right away if you suddenly cannot urinate. This information is not intended to replace advice given to you by your health care provider. Make sure you discuss any questions you have with your health care provider. Document Revised: 11/16/2021 Document Reviewed: 11/16/2021 [employer] Patient Education 2022 [employer]. Follow Up Care 09/25/2022 16:49:26 With:NICOLE DIAZ, Cristo Frances, URL Address: [facility] [address], [place] [phone] When: Unknown Comments:3 mos [facility] 07-13-2023 Evaluation note* Encounter Date Diagnosis Assessment Notes Treatment Notes Treatment Clinical Notes Nov, Hyperglycemia due to type 2 diabetes mellitus (ICD-10 - E11.65) [facility] Other 05-08-2023 Evaluation note* Encounter Date Diagnosis Assessment Notes Treatment Notes Treatment Clinical Notes September, Diabetic polyneuropathy associated with type 2 diabetes mellitus (ICD-10 - E11.42) [facility] Other 05-01-2023 Evaluation note* Encounter Date Diagnosis Assessment Notes Treatment Notes Treatment Clinical Notes September, Skin ulcer of toe of right foot, limited to breakdown of skin (ICD-10 - L97.511) No open area, mainly erythema. Agrees to podiatry referral for nail care and rx shoes. [facility] Other 04-13-2023 Evaluation note* Encounter Date Diagnosis Assessment Notes Treatment Notes Treatment Clinical Notes Aug, Diabetic polyneuropathy associated with type 2 diabetes mellitus (ICD-10 - E11.42) Hand wrote order for diabetic shoes. Trial of Lyrica as a new medication. We will start with low-dose and check again in 1 month consider increasing dose at that time. [facility] Other 02-28-2023 Evaluation note* Encounter Date Diagnosis Assessment Notes Treatment Notes Treatment Clinical Notes Jun, Right leg pain (ICD-10 - M79.604) Discussed US to r/o DVT and then consider more compression hose, elevation and tylenol for pain Jun, Right hip pain (ICD-10 - M25.551) no injury. will base referral if needed on Xray result. [facility] 02-06-[facility]23 [facility] Subjective Marilu Dan is a 72 y.o. year old male patient being seen for Hypertension and Valve Disorder C/o chest pain for a few hours the other day, which radiated down his LUE. He was up on his roof when this started. Also has a spot on his RLE he's concerned about. LE edema is no more than usual for him. Denies SOB and bleeding on Xarelto. Patient Active Problem List Diagnosis Aortic valve stenosis Chest pain Closed fracture of shaft of tibia Coronary arteriosclerosis Deep venous thrombosis of lower extremity (CMS/HCC) Dyspnea Hypertensive disorder Family History Problem Relation Name Age of Onset Diabetes Mother Heart attack Mother Diabetes Father Heart attack Father Breast cancer Sister Colon cancer Brother Cervical cancer Child Social History Tobacco Use Smoking status: Former Types: Cigarettes Smokeless tobacco: Never Substance Use Topics Alcohol use: Never Drug use: Never Mr Dan is seen in follow up. He has CAD, s/p bypass surgery, aortic stenosis now status post TAVR, hypertension and hyperlipidemia. Visit of 04/19/2015: He was investigated for typical unstable angina. His coronary angiogram on 09/10/2014 showed severe 3 vessel disease. He underwent CABG surgery on 09/14/2014. Bypasses were: 1. PIERCE to LAD. 2. Reverse saphenous vein from aorta to obtuse marginal. 3. Reverse saphenous vein from aorta to second diagonal. 4. Reverse saphenous vein from aorta to posterior descending coronary. He has history of: 1. diabetes on treatment. 2. Hypertension on treatment. 3. Hyperlipidemia on treatment. 4. He is an ex-smoker. 5. 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 Has been on coumadin since 1979 on and off. When he stops coumadin he says the DVT recurs. One time he also had a PE. 6. COPD - severe by PFTs in 2013. 7. skin cancer Coumadin was stopped after the surgery. Echocardiogram 09/01/2014: lower limit of normal LV systolic function, Grade 1 diastolic dysfunction, mild aortic valve stenosis, normal right sided pressures. He did cardiac rehab. His labs 04/13/2015 showed TG 63, LDL 58, HbA1C 6.1, with normal CBC and chem otherwise. visit of 03/15/2016: He was seen on 03/01/2016 as a sick call as he has been having symptoms of chest pain and shortness of breath on mild exertion in the past 2 months. He has history of DVT in the past with no current symptoms in that regard. His ECG 03/01/2016 showed sinus bradycardia with T-wave inversion in V1-3. He underwent cardiac catheterization on 03/02/2016 and this showed: 1. Severe 3-vessel coronary artery disease. 2. Patent 4/4 bypass grafts. 3. A 50% disease in the saphenous venous graft to the diagonal branch; however, this diagonal branch itself is of very small caliber. He was recommended medical therapy. Imdur was added. He has been feeling better, currently has no pain. He says he still gets discomfort when he goes out in the cold. His CXR on 03/03/2016 was non revealing. 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 Duplex of upper extremity 06/17/2018 showed SVT and DVT involving the brachial, antecubital, and distal forearm veins. He was started on xarelto (currently taking 30 mg daily) to switch to 20 mg daily after the initial 3 week period. His arm swelling has resolved. He has no pain. He has been well otherwise with no chest pain and no significant shortness of breath. 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 He has no claudication. His blood pressure has been controlled. We had reduced lisinopril to 5 mg daily due to cough on the 10 mg daily. Prior testing: Echocardiogram 2018: Global left ventricular systolic function is normal (Visually estimated EF 60%). Concentric left ventricular hypertrophy. Normal diastolic function. The aortic valve is thickened with reduced cusp mobility The valve is possibly bicuspid with raphe. Moderate aortic valve stenosis. No aortic valve regurgitation. Unable to assess right sided pressures due to lack of measurable tricuspid regurgitation. The peak instantaneous transvalvular aortic gradient = 33 mmHg with mean gradient = 21 mmHg and aortic valve area = 1.1 cm2 by continuity equation. The dimensionless index = 0.30 (less than 0.25 is consistent with severe aortic stenosis.) Compared to the prior echocardiogram of 04/20/17 there is no significant change. Echocardiogram 04/17/2017: Global left ventricular systolic function is normal (Visually estimated EF 60%). Mild left ventricular hypertrophy. No regional wall motion abnormality. Grade 1, mild diastolic dysfunction (abnormal relaxation). Normal right ventricular systolic function. Moderate aortic valve stenosis. No aortic valve regurgitation. Visit of 05/01/2019: He is (more content not included)...[facility] Hospital Discharge instructions Patient Education 06/05/2022 10:09:34 Urethral Stricture Urethral Stricture Urethral stricture is narrowing of the tube (urethra) that carries urine from the bladder out of the body. The urethra can become narrow due to scar tissue from an injury or infection. This can make it difficult to pass urine. In women, the urethra opens above the vaginal opening. In men, the urethra opens at the tip of the penis, and the urethra is much longer than it is in women. Because of the length of the male urethra, urethral stricture is much more common in men. This condition is treated with surgery. What are the causes? In both men and women, common causes of urethral stricture include: Urinary tract infection (UTI). Sexually transmitted infection (STI). Use of a tube placed into the urethra to drain urine from the bladder (urinary catheter). Urinary tract surgery. In men, common causes of urethral stricture include: A severe injury to the pelvis. Prostate surgery. Injury to the penis. In many cases, the cause of urethral stricture is not known. What increases the risk? You are more likely to develop this condition if you: Are male. Men who have had prostate surgery are at risk of developing this condition. Use a urinary catheter. Have had urinary tract surgery. What are the signs or symptoms? The main symptom of this condition is difficulty passing urine. This may cause decreased urine flow, dribbling, or spraying of urine. Other symptom of this condition may include: Frequent UTIs. Blood in the urine. Pain when urinating. Swelling of the penis in men. Inability to pass urine (urinary obstruction). How is this diagnosed? This condition may be diagnosed based on: Your medical history and a physical exam. Urine tests to check for infection or bleeding. X-rays. Ultrasound. Retrograde urethrogram. This is a type of test in which dye is injected into the urethra and then an X-ray is taken. Urethroscopy. This is when a thin tube with a light and camera on the end (urethroscope) is used tolook at the urethra. How is this treated? This condition is treated with surgery. The type of surgery that you have depends on the severity of your condition. You may have: Urethral dilation. In this procedure, the narrow part of the urethra is stretched open (dilated) with dilating instruments or a small balloon. Urethrotomy. In this procedure, a urethroscope is placed into the urethra, and the narrow part of the urethra is cut open with a surgical blade inserted through the urethroscope. Open surgery. In this procedure, an incision is made in the urethra, the narrow part is removed, and the urethra is reconstructed. Follow these instructions at home: Take [id number] and prescription medicines only as told by your health care provider. If you were prescribed an antibiotic medicine, take it as told by your health care provider. Do notstop taking the antibiotic even if you start to feel better. Drink enough fluid to keep your urine pale yellow. Keep all follow-up visits as told by your health care provider. This is important. Contact a health care provider if: You have signs of a urinary tract infection, such as: ?Frequent urination or passing small amounts of urine frequently. ?Needing to urinate urgently. ?Pain or burning with urination. ?Urine that smells bad or unusual. ?Cloudy urine. ?Pain in the lower abdomen or back. ?Trouble urinating. ?Blood in the urine. ?Vomiting or being less hungry than normal. ?Diarrhea or abdominal pain. ?Vaginal discharge, if you are female. Your symptoms are getting worse instead of better. Get help right away if: You cannot pass urine. You have a fever. You have swelling, bruising, or discoloration of your genital area. This includes the penis, scrotum, and inner thighs for men, and the outer genital organs (vulva) and inner thighs for women. You develop swelling in your legs. You have difficulty breathing. Summary Urethral stricture is narrowing of the tube (urethra) that carries urine from the bladder out of the body. The urethra can become narrow due to scar tissue from an injury or infection. This condition can make it difficult to pass urine. This condition is treated with surgery. The type of surgery that you have depends on the severity of your condition. Contact a health care provider if your symptoms get worse or you have signs of a urinary tract infection. This information is not intended to replace advice given to you by your health care provider. Make sure you discuss any questions you have with your health care provider. Document Released: 05/26/2016 Document Revised: 12/11/2018 Document Reviewed: 12/11/2018 [employer] Patient Education 2020 [employer]. Follow Up Care 05/02/2022 08:31:24 With:NICOLE DIAZ, Cristo Frances, URL Address: [facility] [address] , [place] [id number] When: Unknown [facility] 11-05-2022 Progress note Author Neno Moreira [facility] March 18, 2022 10:39am Note Date/Time March 18, 2022 1 0:28am [facility] [address] [place], [place] [id number] Hospitalist Progress Note Signed Patient: Marilu Dan MR#: [id number] : 1950 Acct:[id number] Age/Sex: 71 / M Adm Date: 2 Loc: Room: [address] [place] [address] Type: ADM IN Attending Dr: Neno Moreira MD Copies to: ~ Date of Service: 03/18/2022 Subjective Subjective Narrative: Patient was seen and examined at bedside. Patient remained afebrile and hemodynamically stable overnight. Reports improvement in his symptoms. denies any active complaints. Underwent angiographic evaluation yesterday patent grafts, no interventions needed. Also we got a blood culture report from [facility] that showed proteus and Enterobacter detected in blood. Exam Physical Exam Vital Signs: Temp Pulse Resp BP Pulse Ox O2 Del Method 98.4 F 84 20 133/67 95 Room Air 03/18/22 08:00 03/18/22 09:00 03/18/22 09:00 03/18/22 09:00 03/18/22 09:00 03/18/22 09:00 Narrative: Const General: cooperative, comfortable, in no acute distress, hard of hearing Eyes Conjunctivae: conjunctivae normal Neck Neck: normal visual inspection Chest inspection: normal inspection of the chest Resp Effort & Inspection: normal respiratory effort, not labored, no respiratory distress Auscultation: clear to auscultation b/l, no crackles, no wheezes Cardio Rate: normal rate Rhythm: regular rhythm Heart Sounds: S1 normal, S2 normal and no murmurs GI Inspection: non-distended Palpation: soft, not firm and nontender Neuro General: alert, awake and oriented x3. No obvious focal deficit, hard of hearing Extrem General: no cyanosis, no pedal edema Psych Appearance: grossly normal Objective Lab Results CBC & Chem 7: 03/18/22 04:37 03/18/22 04:37 Microbiology Results Microbiology 03/17/22 05:20 Urine - Tinsley Catheter Urine Culture - Preliminary <9,000 colonies/ml mixed bacterial skin contaminants 1 Day Meds Allergies and Active Meds Allergies Penicillins Allergy (Verified 03/17/22 00:05) Swelling Sulfa (Sulfonamide Antibiotics) Allergy (Verified 03/17/22 00:05) Unknown Reaction erythromycin base Adverse Reaction (Verified 03/17/22 00:05) Vomiting Active Meds: Active Medications Generic Name Dose Route Start Last Admin Trade Name Freq PRN Reason Stop Dose Admin Acetaminophen 1,000 mg 03/17/22 14:07 Acetaminophen 500 Mg Tablet PO 03/17/23 14:06 Q6H PRN Mild Pain Al Hydrox/Mg Hydrox/Simethicone 30 ml 03/17/22 14:07 Mag Hydrox/Al Hydrox/Simeth 30 Ml Udc PO 03/17/23 14:06 Q4H PRN Epigastric distress (Non-Card) Aspirin 81 mg 03/17/22 09:00 03/18/22 09:13 Aspirin 81 Mg Tab.Chew PO 03/17/23 08:59 81 mg DAILY ELAINE Administration Atorvastatin Calcium 40 mg 03/18/22 09:00 03/18/22 09:13 Atorvastatin 40 Mg Tablet PO 03/18/23 08:59 40 mg DAILY ELAINE Administration Clopidogrel Bisulfate 75 mg 03/17/22 09:00 03/18/22 09:13 Clopidogrel Bisulfate 75 Mg Tablet PO 03/17/23 08:59 75 mg DAILY ELAINE Administration Dextrose 0 gm 03/17/22 04:17 Dextrose 50% In Water 25 Gm/50 Ml Syringe IV-PUSH 03/17/23 04:16 PRN PRN Hypoglycemia Docusate Sodium 100 mg 03/17/22 14:07 Docusate 100 Mg Capsule PO 03/17/23 14:06 QHS PRN Constipation Glucose 0 gm 03/17/22 04:17 Dextrose 40% Gel 15 Gm Tube PO 03/17/23 04:16 PRN PRN Hypoglycemia Sodium Chloride 1,000 mls @ 125 mls/hr 03/17/22 00:30 03/18/22 05:14 0.9% Sodium Chloride 1,000 Ml IV 03/17/23 00:29 Not Given .Q8H ELAINE Aztreonam 1 gm in 100 mls @ 200 mls/hr 03/17/22 05:30 03/18/22 08:55 Azactam IV Not Given Q8H ELAINE Insulin Aspart 0 units 03/17/22 08:00 03/18/22 09:14 Insulin Aspart 300 Units/3 Ml Insuln.Pen SUBCUT 03/17/23 07:59 3 units TID.WM.HS ELAINE Administration Protocol Insulin Glargine 10 units 03/17/22 09:00 03/18/22 09:15 Insulin Glargine 300 Units/3 Ml Insuln.Pen SUBCUT 03/17/23 08:59 10 units DAILY ELAINE Administration Labetalol HCl 5 mg 03/17/22 00:28 Labetalol 100 Mg/20 Ml Vial IV-PUSH 03/17/23 00:27 Q4H PRN Hypertension Metoprolol Tartrate 25 mg 03/17/22 09:00 03/18/22 09:13 Metoprolol Tartrate 25 Mg Tablet PO 03/17/23 08:59 25 mg BID ELAINE Administration Miscellaneous Information 1 each 03/17/22 14:07 Consult To Pharmacy MISCELLANE 03/17/23 14:06 .PHACONSULT PRN ZZ.Pharmacy Consult Protocol Morphine Sulfate 4 mg 03/17/22 14:07 Morphine Sulfate 4 Mg/Ml Cartridge IV-PUSH Q20M PRN Chest Pain Nitroglycerin 0.4 mg 03/17/22 14:07 Nitroglycerin 0.4 Mg Tab.Subl SUBLINGUAL 03/17/23 14:06 Q5M PRN Chest Pain Ondansetron HCl 4 mg 03/17/22 14:07 Ondansetron 4 Mg/2 Ml Vial IV-PUSH 03/17/23 14:06 Q6H PRN Nausea And Vomiting Tramadol HCl 50 mg 03/17/22 14:07 Tramadol 50 Mg Tablet PO 09/13/22 14:06 Q6H PRN Moderate Pain Triamcinolone Acetonide 1 applic 03/17/22 14:07 Triamcinolone 0.1% Cream 15 Gm Tube TOPICAL 03/17/23 14:06 QID PRN Irritation A&P - Hospitalist Assessment/Plan (1) NSTEMI (non-ST elevated myocardial infarction): (2) Gram-negative bacteremia: (3) Acute UTI: (4) Tinsley catheter in place prior to arrival: (5) Sepsis: Plan Suspected NSTEMI ? EKG showed left bundle branch block of unknown chronicity ? Uptrending troponin ? Echo showed EF of 35 to 40%, bioprosthetic aortic valve - S/p cardiac cath 03/17/22 showed patent grafts and did not require any intervention. ? Continue Aspirin 81 mg. Continue his home dose Plavix/rosuvastatin and beta- rick - Guideline directed therapy has been implemented as per cardio - Stable to be transferred to medical floor with tele. Sepsis secondary to UTI Gram negative bacteremia ? UA positive for UTI. - We have received blood culture report from Kevyn Ferris that showed proteus and Enterobacter detected in blood. ? Patient was started empirically on Azactam given his penicillin allergy (gets hives/swelling and chocking) ? urine culture here is contaminant. - Repeat blood cultures ordered - Tolerating oral - Overall improving - Will assess if okay to remove tinsley given bacteremia likely due to CAUTI. Type 2 diabetes mellitus with hyperglycemia ? Hold his metformin ? Lantus 10 units with sliding scale insulin History of dementia ? Continue his home dose donepezil Urinary retention/BPH ? S/p recent cystoscopy. Following with urology Dr. Rivera ? Continue his home dose Flomax - Patient stated that tinsley catheter was placed after cystoscopy due to hematuria? pt has poor understanding of exactly why the tinsley catheter is in place. Said it was supposed to be removed Sunday yesterday as outpatient but he was admitted here. Urology consult requested since Dr. Nicole nowak to assess for the need of the tinsley catheter at this time vs exchange it given BPH with unclear hx if it was due to urinary retention. DVT prophylaxis with Lovenox CODE STATUS full code Discussed with patient at bedside, all questions answered Patient is stable to be transferred to medical floor with telemetry Documented By: Neno Moreira MD 03/18/2203 04 Signed By: <Electronically signed by Neno Moreira MD> 03/18/22 3811 [facility] Work Phone: 1(261) 488-941111-04-2022 Consult note Author Marlon Shetty [facility] March 17, 2022 2:27pm Note Date/Time March 17, 2022 2 :21pm [facility] [address] [place] [address] Cardiology Consult Note Signed Patient: Marilu Dan MR#: [id number] : 1950 Acct:[id number] Age/Sex: 71 / M Adm Date: 2 Loc: Room: [address] [place] [address] Type: ADM IN Attending Dr: Neno Moreira MD Copies to: MD Neno Gibson MD W Scott Sheldon, DO~ Cardiology HPI History of Present Illness Consult Date: 03/17/22 Reason for Consult: Acute non-ST elevation [place] HPI: Mr. Dan is a 71 year old male seen in interventional cardiology consultationat request of the hospitalist for acute non-ST elevation myocardial infarction. Patient was transferred from [place] primarily due to urosepsis. He presented to the ER with severe cognitive impairment, hypotension, found to have elevated troponins and was transferred to our ICU for further evaluation and management. After receiving fluids and antibiotics he is now mentating appropriately howevertroponins were measured and continued to be cycled, elevated from 2600 up to 5900. ECG reveals sinus rhythm with no acute ST changes Past medical history is noted for ASHD with four-vessel bypass in [place] around the 2014 time period. 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 Ospina. He has had no complaints of angina. 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 For the past medical history is noted for diabetes mellitus, essential hypertension, recent bladder/cystitis with recent instrumentation approximately a week ago with subsequent postoperative symptoms as described above with dehydration, cognitive impairment, fever and chills. Because of the severely elevated troponins, the patient's comorbidities especially history of four-vessel CABG we are consulted for further consideration of interventional management. Risk benefits alternatives and informed decision-making process discussed with the patient and entire family this morning in regards to consideration for cardiac catheterization to further investigate whether this is simply sepsis or related versus true atherosclerotic/plaque rupture, potentially in need of revascularization. We have offered both noninvasive as well as invasive imaging. Patient and and family prefer to proceed with most expeditious route with left heart catheterization. Review of Systems Review of Systems All other systems reviewed & are negative unless noted below or in HPI Constitutional Constitutional: Reports as per HPI, Reports chills, Reports night sweats and Reports weakness Eyes Eyes: Reports system reviewed and no additional complaints, except as documented ENT Ears, Nose, Mouth, and Throat: Reports system reviewed and no additional complaints, except as documented Cardiovascular Cardiovascular: Reports system reviewed and no additional complaints, except as documented, Denies chest pain, Denies chest pain at rest, Denies chest pain withactivity and Denies dyspnea Respiratory Respiratory: Reports system reviewed and no additional complaints, except as documented Gastrointestinal Gastrointestinal: Reports system reviewed and no additional complaints, except as documented Genitourinary Genitourinary: Reports as per HPI, Reports difficulty urinating, Reports hematuria and Reports urinary frequency Musculoskeletal Musculoskeletal: Reports system reviewed and no additional complaints, except asdocumented Integumentary/Breasts Skin/Breast: Reports system reviewed and no additional complaints, except as documented Neurologic Neurologic: Reports system reviewed and no additional complaints, except as documented PMFSH Vaccinated for COVID-19?: Yes Medical History (Updated 03/17/22 @ 04:24 by Paulina Walker MD) BPH (benign prostatic hyperplasia) cystoscopy with dilation 03/14/22. Tinsley left in post procedure Coronary artery disease Diabetes mellitus, type 2 Hyperlipidemia Surgical History (Updated 03/17/22 @ 14:27 by Marlon Shetty DO) History of heart bypass surgery History of heart surgery valve replacement Social History Smoking Status: Former smoker Tobacco Type: cigarettes Substance Use Type: None Social History Comments: son comes to help out sometimes Meds Medications and Allergies Allergies Penicillins Allergy (Verified 03/17/22 00:05) Swelling Sulfa (Sulfonamide Antibiotics) Allergy (Verified 03/17/22 00:05) Unknown Reaction erythromycin base Adverse Reaction (Verified 03/17/22 00:05) Vomiting Home Medications clopidogrel 75 mg tablet 75 mg PO DAILY 03/17/22 [History Confirmed 03/17/22] donepezil 5 mg tablet mg 03/17/22 [History] doxycycline hyclate 100 mg capsule mg 03/17/22 [History] isosorbide mononitrate 30 mg tablet,extended release 24 hr 30 mg PO DAILY 03/17/22 [History Confirmed 03/17/22] lisinopril 20 mg tablet 15 mg PO DAILY 03/17/22 [History Confirmed 03/17/22] metformin 500 mg tablet,extended release 24 hr 1,000 mg PO BID 03/17/22 [History Confirmed 03/17/22] metoprolol tartrate 50 mg tablet 25 mg PO BID 03/17/22 [History Confirmed 03/17/22] rivaroxaban 20 mg tablet (Xarelto) 20 mg PO DAILY 03/17/22 [History Confirmed 03/17/22] simvastatin 40 mg tablet 40 mg PO DAILY 03/17/22 [History Confirmed 03/17/22] tamsulosin 0.4 mg capsule mg PO 03/17/22 [History] Exam Physical Exam Vital Signs: Temp Pulse Resp BP Pulse Ox O2 Del Method 97.8 F 76 24 110/58 L 97 Room Air 03/17/22 12:00 03/17/22 12:00 03/17/22 12:00 03/17/22 12:00 03/17/22 12:00 03/17/22 12:00 Const General: cooperative, comfortable and ill appearing Nutritional Appearance: average body habitus Orientation: alert, awake and oriented x3 HEENT Head: normal to inspection Eyes General: appearance normal, both eyes and all related structures Neck Neck: normal visual inspection Chest Chest palpation & inspection: normal inspection of the chest Resp Effort & Inspection: normal respiratory effort Auscultation: clear to auscultation bilaterally Cardio Palpation: normal PMI Rate: regular rate Rhythm: regular rhythm Heart Sounds: S1 normal and S2 normal GI Inspection: normal to inspection Skin General: no rashes or lesions noted Neuro General: patient alert, patient awake and patient oriented x3 Cognition: normal cognition Speech: speech normal Extrem General: no clubbing, cyanosis or edema Results Labs CBC & CMP: 03/17/22 05:09 03/17/22 03:38 Lab results: Cardiac Enzymes 03/17/22 Range/Units 00:26 AST 37 (10-42) U/L Lipids 03/17/22 Range/Units 03:38 Triglycerides 100 (35-149) mg/dL Cholesterol 50 L (140-200) mg/dL HDL Cholesterol 18 L (29-71) mg/dL Cholesterol/HDL Ratio 2.8 (<5.0) CBC 03/17/22 03/17/22 03/17/22 Range/Units 00:26 03:38 05:09 RBC 4.06 3.95 4.04 (3.90-5.60) x10E6/uL Hgb 12.1 L 11.9 L 12.1 L (13.0-17.0) g/dL Hct 36.2 L 35.3 L 36.0 L (38.8-50.0) % Plt Count 126 L 123 L 123 L (150-450) x10E3/uL Neut # (Auto) 7.1 5.1 4.8 (1.8-7.7) x10E3/uL Lymph # (Auto) 0.6 L 0.9 L 0.9 L (1.00-4.8) x10E3/uL [place] # (Auto) 0.9 H 1.0 H 0.9 H (0.0-0.8) x10E3/uL Eos # (Auto) 0.0 0.0 0.0 (0.0-0.45) x10E3/uL Baso # (Auto) 0.0 0.0 0.0 (0.0-0.2) x10E3/uL Comprehensive Metabolic Panel 03/17/22 03/17/22 Range/Units 00:26 03:38 Sodium 129 L 132 L (136-146) mmol/L Potassium 3.7 4.3 (3.5-5.1) mmol/L Chloride 98 98 (95-114) mmol/L Carbon Dioxide 21.6 L 24.2 (22.0-30.0) mmol/L BUN 18 16 (9-23) mg/dL Creatinine 1.04 1.07 (0.64-1.27) mg/dL Glucose 294 H 233 H (70-100) mg/dL Calcium 8.4 8.2 (8.2-10.2) mg/dL AST 37 (10-42) U/L ALT 19 (10-60) U/L Alkaline Phosphatase 56 (32-92) U/L Total Protein 5.6 L (6.1-7.9) gm/dL Albumin 2.5 L (3.2-5.5) gm/dL Intake and Output 03/16/22 03/17/22 03/17/22 23:59 07:59 15:59 Output Total 825 / 825 Balance -825 / -825 Output: Urine Amount (Catheter) 825 / 825 Urethral (Tinsley) 825 / 825 Other: Weight 76.2 kg 75.7 kg Date of Last Bowel Movement 03/15/22 03/15/22 Patient Weight 03/17/22 23:59 Weight 75.7 kg Lab 03/17/22 03/17/22 03/17/22 00:26 05:09 10:53 PT 25.3 H 20.5 H INR 2.2 1.8 APTT 42.6 H 31.8 37.1 H EKG Interpretations EKG EKG results cardiology: WNL and sinus rhythm A&P - Cardiology (1) NSTEMI (non-ST elevated myocardial infarction): Code(s): I21.4 - Non-ST elevation (NSTEMI) myocardial infarction (2) History of heart surgery: Code(s): Z98.890 - Other specified postprocedural states (3) History of heart bypass surgery: Code(s): Z95.1 - Presence of aortocoronary bypass graft Documented By: Marlon Shetty DO 03/17/22 1419 Signed By: <Electronically signed by Marlon Shetty DO> 03/17/22 1427 [facility] Work Phone: [phone]) 862-554511-04-2022 Progress note Author Neno Moreira [facility] March 17, 2022 2:05pm Note Date/Time March 17, 2022 2 :05pm [facility] [address] [place], [place] [address]ist Progress Note Signed Patient: Marilu Dan MR#: [id number] : 1950 Acct:[id number] Age/Sex: 71 / M Adm Date: 2 Loc: Room: [address] [place] [address] Type: ADM IN Attending Dr: Neno Moreira MD Copies to: ~ Date of Service: 03/17/2022 Subjective Subjective Narrative: Patient was admitted after midnight by overnight team. Patient remained alert and awake and oriented x3. Denies any chest pain, shortness of breath, dizziness, nausea, vomiting. Patient was transferred from outside facility due to chest pain that was associated with nausea and shortness of breath. Found tohave elevated troponin in 600s with EKG left bundle branch block with unknown chronicity. Patient was admitted to our ICU. Remained on heparin drip. Awaiting cardiology evaluation. Exam Physical Exam Vital Signs: Temp Pulse Resp BP Pulse Ox O2 Del Method 97.8 F 76 24 110/58 L 97 Room Air 03/17/22 12:00 03/17/22 12:00 03/17/22 12:00 03/17/22 12:00 03/17/22 12:00 03/17/22 12:00 Narrative: Const General: cooperative, comfortable, in no acute distress Eyes Conjunctivae: conjunctivae normal Neck Neck: normal visual inspection Chest inspection: normal inspection of the chest Resp Effort & Inspection: normal respiratory effort, not labored, no respiratory distress Auscultation: clear to auscultation b/l, no crackles, no wheezes Cardio Rate: normal rate Rhythm: regular rhythm Heart Sounds: S1 normal, S2 normal and no murmurs GI Inspection: non-distended Palpation: soft, not firm and nontender Neuro General: alert, awake and oriented x3. No obvious focal deficit Extrem General: no cyanosis, no pedal edema Psych Appearance: grossly normal Objective Lab Results CBC & Chem 7: 03/17/22 05:09 03/17/22 03:38 Meds Allergies and Active Meds Allergies Penicillins Allergy (Verified 03/17/22 00:05) Swelling Sulfa (Sulfonamide Antibiotics) Allergy (Verified 03/17/22 00:05) Unknown Reaction erythromycin base Adverse Reaction (Verified 03/17/22 00:05) Vomiting Active Meds: Active Medications Generic Name Dose Route Start Last Admin Trade Name Stefania PRN Reason Stop Dose Admin Aspirin 81 mg 03/17/22 09:00 03/17/22 09:02 Aspirin 81 Mg Tab.Chew PO 03/17/23 08:59 81 mg DAILY ELAINE Administration Atorvastatin Calcium 20 mg 03/17/22 09:00 03/17/22 09:05 Atorvastatin 20 Mg Tablet PO 03/17/23 08:59 20 mg DAILY ELAINE Administration Clopidogrel Bisulfate 75 mg 03/17/22 09:00 03/17/22 09:02 Clopidogrel Bisulfate 75 Mg Tablet PO 03/17/23 08:59 75 mg DAILY ELAINE Administration Dextrose 0 gm 03/17/22 04:17 Dextrose 50% In Water 25 Gm/50 Ml Syringe IV-PUSH 03/17/23 04:16 PRN PRN Hypoglycemia Glucose 0 gm 03/17/22 04:17 Dextrose 40% Gel 15 Gm Tube PO 03/17/23 04:16 PRN PRN Hypoglycemia Heparin Sodium (Porcine) 3,000 unit 03/17/22 04:17 Heparin *Protocol Bolus* 5,000 Unit/Ml Vial 40 unit/kg (3000 unit) 03/17/23 04:16 IV-PUSH PROTOCOL PRN PTT 40-53 Heparin Sodium (Porcine) 4,000 unit 03/17/22 04:17 Heparin *Protocol Bolus* 5,000 Unit/Ml Vial IV-PUSH 03/17/23 04:16 PROTOCOL PRN PTT < 40 Sodium Chloride 1,000 mls @ 125 mls/hr 03/17/22 00:30 03/17/22 10:00 0.9% Sodium Chloride 1,000 Ml IV 03/17/23 00:29 Not Given .Q8H ELAINE Heparin Sodium/Sodium Chloride 25,000 unit in 250 mls @ 9 mls/hr 03/17/22 04:30 03/17/22 12:34 Heparin IV 03/17/23 04:29 0 units/hr .Q24H ELAINE 0 mls/hr Titration Protocol Aztreonam 1 gm in 100 mls @ 200 mls/hr 03/17/22 05:30 03/17/22 05:20 Azactam IV 200 mls/hr Q8H ELAINE Administration Insulin Aspart 0 units 03/17/22 08:00 03/17/22 12:31 Insulin Aspart 300 Units/3 Ml Insuln.Pen SUBCUT 03/17/23 07:59 Not Given TID.WM.HS [facility] Protocol Insulin Glargine 10 units 03/17/22 09:00 03/17/22 09:02 Insulin Glargine 300 Units/3 Ml Insuln.Pen SUBCUT 03/17/23 08:59 10 units DAILY ELAINE Administration Labetalol HCl 5 mg 03/17/22 00:28 Labetalol 100 Mg/20 Ml Vial IV-PUSH 03/17/23 00:27 Q4H PRN Hypertension Metoprolol Tartrate 25 mg 03/17/22 09:00 03/17/22 09:02 Metoprolol Tartrate 25 Mg Tablet PO 03/17/23 08:59 25 mg BID ELAINE Administration Nitroglycerin 0.4 mg 03/17/22 00:28 Nitroglycerin 0.4 Mg Tab.Subl SUBLINGUAL 03/17/23 00:27 Q5M PRN Chest Pain Ondansetron HCl 4 mg 03/17/22 00:28 Ondansetron 4 Mg/2 Ml Vial IV-PUSH 03/17/23 00:27 Q8H PRN Nausea And Vomiting A&P - Hospitalist Assessment/Plan (1) NSTEMI (non-ST elevated myocardial infarction): Plan NSTEMI ? on heparin drip ? EKG showed left bundle branch block of unknown chronicity ? Uptrending troponin ? Echo showed EF of 35 to 40%, bioprosthetic aortic valve ? Maintain n.p.o. ? Aspirin 81 mg ? Continue his home dose Plavix/rosuvastatin and beta-rick ? Cardiology evaluation pending - ICU monitoring Hypotension presented on xetktooen-cjunxesur-dpegq responsive ? UA positive for UTI. ? Started empirically on Azactam given his penicillin allergy ? urine culture pending - IV hydration ? Hold his blood pressure medications including his isosorbide/lisinopril Type 2 diabetes mellitus with hyperglycemia ? Hold his metformin ? Start Lantus 10 units with sliding scale insulin History of dementia ? Continue his home dose donepezil Urinary retention/BPH ? Status post cystoscopy ? Continue his home dose Flomax DVT prophylaxis with heparin drip CODE STATUS full code Documented By: Neno Moreira MD 03/17/22 13 55 Signed By: <Electronically signed by Neno Moreira MD> 03/17/22 1405 [facility] Work Phone: [phone] 302-801711-04-2022 [facility] History and physical note Author Paulina Alexander [facility] March 17, 2022 4:30am Note Date/Time March 17, 2022 4 :25am [facility] [address] [place] [address] Hospitalist H&P Signed Patient: Marilu Dan MR#: [id number] : 1950 Acct:[id number] Age/Sex: 71 / M Adm Date: 2 Loc: Room: [address] [place] [address] Type: ADM IN Attending Dr: Madeline Barry MD Copies to: MD Mary Beth Del Toro MD Mazhar Rahman, MD~ HPI DATE OF EXAMINATION: 03/17/22 CHIEF COMPLAINT: chest pain HISTORY OF PRESENT ILLNESS: Patient is 71-year-old male with multiple medical problems including dementia/CAD status post CABG couple years ago/aortic valve replacement and urinary retention who has not been feeling well since he had a cystoscopy coupledays ago including intermittent confusion/sweating/generalized fatigue and weakness for which he started to come to an outside facility, the other facilitythe patient started complaining of left-sided chest pain he describes as pressure associated with nausea and shortness of breath, blood work showed elevated troponin in the 600 range, EKG showed left bundle branch block of unknown chronicity, the patient was also hypoglycemic with mildly elevated bloodglucose, creatinine was consistent with stage II CKD, the patient was mildly hypotensive and tachycardic over there ESR and CRP were elevated for which patient was given antibiotics and was given IV fluids, and after discussing the case with our head golf coach on-call patient was started on heparin drip and was transferred to our facility to ICU to be continued on heparin drip for cardiology evaluation in the morning Review of Systems Review of Systems Unobtainable due to mental condition PMFSH Vaccinated for COVID-19?: Yes Medical History (Updated 03/17/22 @ 04:24 by Paulina Walker MD) BPH (benign prostatic hyperplasia) cystoscopy with dilation 03/14/22. Tinsley left in post procedure Coronary artery disease Diabetes mellitus, type 2 Hyperlipidemia Surgical History History of heart bypass surgery History of heart surgery valve replacement Social History Smoking Status: Former smoker Tobacco Type: cigarettes Substance Use Type: None Social History Comments: son comes to help out sometimes Meds Medications and Allergies Allergies Penicillins Allergy (Verified 03/17/22 00:05) Swelling Sulfa (Sulfonamide Antibiotics) Allergy (Verified 03/17/22 00:05) Unknown Reaction erythromycin base Adverse Reaction (Verified 03/17/22 00:05) Vomiting Home Medications clopidogrel 75 mg tablet 75 mg PO DAILY 03/17/22 [History Confirmed 03/17/22] donepezil 5 mg tablet mg 03/17/22 [History] doxycycline hyclate 100 mg capsule mg 03/17/22 [History] isosorbide mononitrate 30 mg tablet,extended release 24 hr 30 mg PO DAILY 03/17/22 [History Confirmed 03/17/22] lisinopril 20 mg tablet 15 mg PO DAILY 03/17/22 [History Confirmed 03/17/22] metformin 500 mg tablet,extended release 24 hr 1,000 mg PO BID 03/17/22 [History Confirmed 03/17/22] metoprolol tartrate 50 mg tablet 25 mg PO BID 03/17/22 [History Confirmed 03/17/22] rivaroxaban 20 mg tablet (Xarelto) 20 mg PO DAILY 03/17/22 [History Confirmed 03/17/22] simvastatin 40 mg tablet 40 mg PO DAILY 03/17/22 [History Confirmed 03/17/22] tamsulosin 0.4 mg capsule mg PO 03/17/22 [History] Exam Physical Exam Vital Signs: Temp Pulse Resp BP Pulse Ox O2 Del Method 98.2 F 80 20 94/52 L 96 Room Air 03/17/22 01:00 03/17/22 03:00 03/17/22 03:00 03/17/22 03:00 03/17/22 03:00 03/17/22 03:00 Narrative: General: patient is alert and oriented HEENT: head atraumatic, normocephalic, moist mucous membranes, normal nose and ears, no throat lesions, normal conjunctiva Neck: supple no masses, no lymphadenopathy CVS: regular rate and rhythm, no murmurs or gallops Respiratory: clear to auscultation bilaterally, no wheezing or crackles, symmetric expansion GI: soft, nondistended, nontender, positive bowel sounds with no organomegaly Extremity: moves all extremities, no restrictions of movements, no calf tenderness, no edema Neuro: alert and oriented x3, normal speech, normal motor function Skin: dry, intact no rashes or lesions Results Lab Results Labs: Laboratory Last Values Corrected WBC 7.1 X10E3/uL (4.1-10.5) 03/17/22 03:38 Uncorrected WBC Count 7.1 x10E3/uL (4.5-11.0) 03/17/22 03:38 RBC 3.95 x10E6/uL (3.90-5.60) 03/17/22 03:38 Hgb 11.9 g/dL (13.0-17.0) L 03/17/22 03:38 Hct 35.3 % (38.8-50.0) L 03/17/22 03:38 MCV 89.4 fl (83.5-101) 03/17/22 03:38 MCH 30.0 pg (27.5-35.2) 03/17/22 03:38 MCHC 33.6 g/dL (32.5-35.6) 03/17/22 03:38 RDW 13.1 % (12.0-14.8) 03/17/22 03:38 Plt Count 123 x10E3/uL (150-450) L 03/17/22 03:38 MPV 7.9 fl (6.6-10.1) 03/17/22 03:38 Neut % (Auto) 72.0 % (.) 03/17/22 03:38 Lymph % (Auto) 13.2 % (.) 03/17/22 03:38 [place] % (Auto) 14.6 % (.) 03/17/22 03:38 Eos % (Auto) 0.0 % (.) 03/17/22 03:38 Baso % (Auto) 0.2 % (.) 03/17/22 03:38 Neut # (Auto) 5.1 x10E3/uL (1.8-7.7) 03/17/22 03:38 Lymph # (Auto) 0.9 x10E3/uL (1.00-4.8) L 03/17/22 03:38 [place] # (Auto) 1.0 x10E3/uL (0.0-0.8) H 03/17/22 03:38 Eos # (Auto) 0.0 x10E3/uL (0.0-0.45) 03/17/22 03:38 Baso # (Auto) 0.0 x10E3/uL (0.0-0.2) 03/17/22 03:38 Nucleated RBC % (auto) 0.0 % (0-0.5) 03/17/22 03:38 PT 25.3 Seconds (9.0-12.9) H 03/17/22 00:26 INR 2.2 03/17/22 00:26 APTT 42.6 Seconds (25.1-36.5) H 03/17/22 00:26 PHA Creatinine Clear 58.60 03/17/22 03:38 Sodium 132 mmol/L (136-146) L 03/17/22 03:38 Potassium 4.3 mmol/L (3.5-5.1) 03/17/22 03:38 Chloride 98 mmol/L (95-114) 03/17/22 03:38 Carbon Dioxide 24.2 mmol/L (22.0-30.0) 03/17/22 03:38 Anion Gap 14.1 mEq/L (6.0-15.0) 03/17/22 03:38 BUN 16 mg/dL (9-23) 03/17/22 03:38 Creatinine 1.07 mg/dL (0.64-1.27) 03/17/22 03:38 Est GFR ( Amer) > 60 mL/Min 03/17/22 03:38 Est GFR (Non-Af Amer) > 60 mL/Min 03/17/22 03:38 Glucose 233 mg/dL (70-100) H 03/17/22 03:38 Calcium 8.2 mg/dL (8.2-10.2) 03/17/22 03:38 Magnesium 1.6 mg/dL (1.6-2.6) 03/17/22 03:38 Total Bilirubin 0.6 mg/dL (0.3-1.2) 03/17/22 00:26 AST 37 U/L (10-42) 03/17/22 00:26 ALT 19 U/L (10-60) 03/17/22 00:26 Alkaline Phosphatase 56 U/L (32-92) 03/17/22 00:26 Troponin I High Sens 756 pg/mL (0-20) H* 03/17/22 00:26 Total Protein 5.6 gm/dL (6.1-7.9) L 03/17/22 00:26 Albumin 2.5 gm/dL (3.2-5.5) L 03/17/22 00:26 Globulin 3.1 gm/dL 03/17/22 00:26 Albumin/Globulin Ratio 0.8 03/17/22 00:26 Triglycerides 100 mg/dL (35-149) 03/17/22 03:38 Cholesterol 50 mg/dL (140-200) L 03/17/22 03:38 LDL Cholesterol, Calc 12 mg/dL (0-100) 03/17/22 03:38 VLDL Cholesterol 20 mg/dL 03/17/22 03:38 HDL Cholesterol 18 mg/dL (29-71) L 03/17/22 03:38 Cholesterol/HDL Ratio 2.8 (<5.0) 03/17/22 03:38 A&P - Hospitalist Assessment/Plan (1) NSTEMI (non-ST elevated myocardial infarction): (2) Hypotension: Plan Assessment and plan *NSTEMI ? Admitted to the ICU ? Start patient on heparin drip ? EKG showed left bundle branch block of unknown chronicity ? Patient was symptomatic over the other facility with left-sided chest pain/nausea and lightheadedness ? Keep the patient n.p.o. ? Aspirin 81 mg ? Continue his home dose Plavix/rosuvastatin and beta-rick ? Echo in the morning ? Continue to trend troponin ? Cardiology consult *Hypotension ? Raises suspicion for septic shock status post cystoscopy couple days ago ? However the patient is afebrile with normal white count but he is mildly tachycardic which could be Reflex due to this hypotension ? Start patient empirically on Azactam given his penicillin allergy ? We will check blood and urine cultures ? We will give a bolus 1 L and start patient on normal saline 125 mill an hour ? Hold his blood pressure medications including his isosorbide/lisinopril *Type 2 diabetes mellitus with hyperglycemia ? Hold his metformin ? Start Lantus 10 units with sliding scale insulin *History of dementia ? Continue his home dose donepezil *Urinary retention/BPH ? Status post cystoscopy ? Continue his home dose Flomax Documented By: Paulina Walker MD 2 8 Signed By: <Electronically signed by Paulina Walker MD> 03/17/22 0430 [facility] Work Phone: 1(677) 386-478911-01-2022 Hospital Discharge instructions Patient Education 03/14/2022 13:27:00 Hematuria, Adult Hematuria, Adult Hematuria is blood in the urine. Blood may be visible in the urine, or it may be identified with a test. This condition can be caused by infections of the bladder, urethra, kidney, or prostate. Otherpossible causes include: Kidney stones. Cancer of the urinary tract. Too much calcium in the urine. Conditions that are passed from parent to child (inherited conditions). Exercise that requires a lot of energy. Infections can usually be treated with medicine, and a kidney stone usually will pass through your urine. If neither of these is the cause of your hematuria, more tests may be needed to identify the cause of your symptoms. It is very important to tell your health care provider about any blood in your urine, even if it ispainless or the blood stops without treatment. Blood in the urine, when it happens and then stops and then happens again, can be a symptom of a very serious condition, including cancer. There is no pain in the initial stages of many urinary cancers. Follow these instructions at home: Medicines Take sqae-exq-jnyntwl and prescription medicines only as told by your health care provider. If you were prescribed an antibiotic medicine, take it as told by your health care provider. Do notstop taking the antibiotic even if you start to feel better. Eating and drinking Drink enough fluid to keep your urine clear or pale yellow. It is recommended that you drink 3 4 quarts (2.8 3.8 L) a day. If you have been diagnosed with an infection, it is recommended that you drink cranberry juice in addition to large amounts of water. Avoid caffeine, tea, and carbonated beverages. These tend to irritate the bladder. Avoid alcohol because it may irritate the prostate (men). General instructions If you have been diagnosed with a kidney stone, follow your health care provider's instructions about straining your urine to catch the stone. Empty your bladder often. Avoid holding urine for long periods of time. If you are female: ?After a bowel movement, wipe from front to back and use each piece of toilet paper only once. ?Empty your bladder before and after sex. Pay attention to any changes in your symptoms. Tell your health care provider about any changes or any new symptoms. It is your responsibility to get your test results. Ask your health care provider, or the department performing the test, when your results will be ready. Keep all follow-up visits as told by your health care provider. This is important. Contact a health care provider if: You develop back pain. You have a fever. You have nausea or vomiting. Your symptoms do not improve after 3 days. Your symptoms get worse. Get help right away if: You develop severe vomiting and are unable take medicine without vomiting. You develop severe pain in your back or abdomen even though you are taking medicine. You pass a large amount of blood in your urine. You pass blood clots in your urine. You feel very weak or like you might faint. You faint. Summary Hematuria is blood in the urine. It has many possible causes. It is very important that you tell your health care provider about any blood in your urine, even ifit is painless or the blood stops without treatment. Take odet-ung-wowftoi and prescription medicines only as told by your health care provider. Drink enough fluid to keep your urine clear or pale yellow. This information is not intended to replace advice given to you by your health care provider. Make sure you discuss any questions you have with your health care provider. Document Released: 04/30/2006 Document Revised: 09/24/2019 Document Reviewed: 06/02/2017 [employer] Patient Education 2020 [employer]. Follow Up Care 02/27/2022 11:25:53 With:NICOLE DIAZ, Cristo Frances, URL Address: [facility] [address] , [place] [address]- [phone] When:Within 3 Day(s) Comments:Sunday for tinsley removal [facility] Shelbie 10-17-2022 Hospital Discharge instructions Patient Education 02/27/2022 10:01:14 Hematuria, Adult Hematuria, Adult Hematuria is blood in the urine. Blood may be visible in the urine, or it may be identified with a test. This condition can be caused by infections of the bladder, urethra, kidney, or prostate. Otherpossible causes include: Kidney stones. Cancer of the urinary tract. Too much calcium in the urine. Conditions that are passed from parent to child (inherited conditions). Exercise that requires a lot of energy. Infections can usually be treated with medicine, and a kidney stone usually will pass through your urine. If neither of these is the cause of your hematuria, more tests may be needed to identify the cause of your symptoms. It is very important to tell your health care provider about any blood in your urine, even if it ispainless or the blood stops without treatment. Blood in the urine, when it happens and then stops and then happens again, can be a symptom of a very serious condition, including cancer. There is no pain in the initial stages of many urinary cancers. Follow these instructions at home: Medicines Take mtzp-xyb-nflffsa and prescription medicines only as told by your health care provider. If you were prescribed an antibiotic medicine, take it as told by your health care provider. Do notstop taking the antibiotic even if you start to feel better. Eating and drinking Drink enough fluid to keep your urine clear or pale yellow. It is recommended that you drink 3 4 quarts (2.8 3.8 L) a day. If you have been diagnosed with an infection, it is recommended that you drink cranberry juice in addition to large amounts of water. Avoid caffeine, tea, and carbonated beverages. These tend to irritate the bladder. Avoid alcohol because it may irritate the prostate (men). General instructions If you have been diagnosed with a kidney stone, follow your health care provider's instructions about straining your urine to catch the stone. Empty your bladder often. Avoid holding urine for long periods of time. If you are female: ?After a bowel movement, wipe from front to back and use each piece of toilet paper only once. ?Empty your bladder before and after sex. Pay attention to any changes in your symptoms. Tell your health care provider about any changes or any new symptoms. It is your responsibility to get your test results. Ask your health care provider, or the department performing the test, when your results will be ready. Keep all follow-up visits as told by your health care provider. This is important. Contact a health care provider if: You develop back pain. You have a fever. You have nausea or vomiting. Your symptoms do not improve after 3 days. Your symptoms get worse. Get help right away if: You develop severe vomiting and are unable take medicine without vomiting. You develop severe pain in your back or abdomen even though you are taking medicine. You pass a large amount of blood in your urine. You pass blood clots in your urine. You feel very weak or like you might faint. You faint. Summary Hematuria is blood in the urine. It has many possible causes. It is very important that you tell your health care provider about any blood in your urine, even ifit is painless or the blood stops without treatment. Take sorj-vlq-haldhuq and prescription medicines only as told by your health care provider. Drink enough fluid to keep your urine clear or pale yellow. This information is not intended to replace advice given to you by your health care provider. Make sure you discuss any questions you have with your health care provider. Document Released: 04/30/2006 Document Revised: 09/24/2019 Document Reviewed: 06/02/2017 [employer] Patient Education 2020 [employer]. Follow Up Care 02/26/2022 13:59:10 With:NICOLE DIAZ, Cristo Frances, URL Address: [facility] [address], [place] [address]- [phone] When: Unknown [facility] History of Present illness Narrative* Shaista Torres RN - 09/06/2021 1:30 PM EDT Patient received NPO instructions and pre-op medication instructions to be taken on the day of the procedure with a small sip of water. Pt was also given pre-op eye drop instructions from Dr. Mathur. Patient is covid vaccinated, no need to covid test at this time. documented in this [facility] Work Phone: 1(416) 285-669601-27-2022 NoteClinical Information Procedure: left ear auriculectomy, Pre-operative diagnosis: LEFT EAR BASAL CELL CARCINOMA SP Specimen A Left ear antihelix - superior B Left ear antihelix - anterior C Left ear antihelix - inferior D Left ear antihelix - posterior E Left ear antihelix, stitch santamaria superior, 2 stitch asntamaria anterior F Left ear helix Gross Description Part A: Received fresh for frozen section labeled 'left ear antihelix - superior' is an elongated piece of light lynn skin without gross lesions, measuring 1.0 x 0.2 x 0.2 cm. The specimen is entirelysubmitted for a frozen section and subsequently submitted in cassette A1. Part B: Received fresh for frozen section labeled 'left ear antihelix - anterior' is an elongated piece of light lynn skin without gross lesions, measuring 0.8 x 0.1 x 0.2 cm. The specimen is entirelysubmitted for frozen section and subsequently submitted in cassette B1. Part C: Received fresh for frozen section labeled 'left ear antihelix - inferior' is an elongated piece of light lynn skin without gross lesions measuring 0.5 x 0.1 x 0.1 cm. The specimen is entirely submitted for frozen section and subsequently submitted in cassette C1. Part D: Received fresh for frozen section labeled 'left ear antihelix - posterior' is an elongated piece of light lynn skin without gross lesions measuring 1.5 x 0.2 x 0.1 cm. The specimen is entirelysubmitted for frozen section and subsequently submitted in cassette D1. Part E: Received in formalin labeled 'left ear antihelix - stitch santamaria superior, double stitch santamaria anterior' is an ovoid piece of light lynn skin measuring 2.0 x 2.0 x 0.5 cm. There is one stitch superior 12 o'clock. There is a double stitch at 9 o'clock anterior. There is a central pink-lynn ulcer, measuring 1.4 x 0.5 x 0.1 cm. The excision margin is painted with black ink. The anterior 6 to 9 to 12 o'clock margin is painted with yellow ink. The specimen is entirely submitted sequentially from 12 o'clock superior to 6 o'clock inferior in cassettes E1-E3. Part F: Received in formalin labeled 'left ear helix' is an unoriented light lynn skin ellipse, measuring 1.4 x 0.6 x 0.2 cm. There is a central probable frank- lynn lesion, measuring 0.3 x 0.2 cm, whichis located 0.3 cm from the nearest excision margin. The excision margin is painted with black ink. One side is additionally painted with yellow ink for reference. The center is entirely submitted in cassette F1. The tips are entirely submitted in cassette F2. Frozen Section Diagnosis Part A: Negative for malignancy. Part B: Negative for malignancy. Part C: Negative for malignancy. Part D: Negative for malignancy. The specimen was received into the histology department at 9:25 and completed at 9:38. Dr. Gomes called results to Dr. Mi. Microscopic Description Parts A/B/C/D/E: Sections of the skin show an ulcerated tumor, consistent with basal cell carcinomawith focal squamous differentiation. Margins of excision are negative for malignancy. Part F: Sections of the skin show hyperkeratosis, parakeratosis and keratinocytic atypia, consistent with actinic keratosis. The lesion extends to the margins of excision. Diagnosis Part A: Skin, left ear, antihelix-superior margin, excision with frozen section: Negative for malignancy. Part B: Skin, left ear, antihelix-anterior margin, excision with frozen section: Negative for malignancy. Part C: Skin, left ear, antihelix-inferior margin, excision with frozen section: Negative for malignancy. Part D: Skin, left ear, antihelix-posterior margin, excision with frozen section: Negative for malignancy. Part E: Skin, left ear antihelix, excision with no margins: Basal cell carcinoma with focal squamous differentiation, ulcerated. Solar elastosis. Part F: Skin, left ear helix, excision: Actinic keratosis. Tumor present at the tissue margins. Solar elastosis. [id number] Cody Gomes MD PhD (Electronically signed by) Verified: 06/13/21 12:25TrihealthComment on above:Performed By: #### SPR #### [facility] (DEFAULT) [address] [place], [place] [address]Discharge summary Author Neno Moreira [facility] March 19, 2022 1:57pm Note Date/Time March 19, 2022 1 :32pm [facility] [address] [place] [address] Discharge Summary Signed Patient: Marilu Dan MR#: [id number] : 1950 Acct:[id number] Age/Sex: 71 / M Adm Date: 2 Loc: Room: [address] [place] [place] [address]: Neno Moreira MD Copies to: MD Neno Gibson MD~ Providers Date of Discharge: 03/19/22 Discharging Provider: Neno Moreira Primary Care Provider: Mary Beth Pitts Consults: 03/17/22 00:28 Consult to Cardiology Routine 03/18/22 10:36 Consult to Urology Routine Discharge Diagnosis (1) NSTEMI (non-ST elevated myocardial infarction): (2) Gram-negative bacteremia: (3) Acute UTI: (4) Tinsley catheter in place prior to arrival: (5) Sepsis: Final Diagnosis Final Discharge Diagnosis: Suspected NSTEMI Sepsis secondary to UTI Gram negative bacteremia CAUTI Type 2 diabetes mellitus with hyperglycemia Urinary retention/BPH- passed voiding trial Summary Hospital Course Hospital course: Patient is a 71-year-old male with multiple medical problems including dementia/CAD status post CABG couple years ago/aortic valve replacement and urinary retention who was not feeling well since he had a cystoscopy few days prior presentation, he was feeling intermittent confusion/sweating/generalized fatigue and weakness for which he went to [facility] for further evaluation and management. Patient was transferred to our hospital for further evaluation and management due to elevated troponin and the need for cardiology evaluation. On presentation, patient had left-sided chest pain he described it as pressure associated with nausea and shortness of breath, blood work showed uptrending troponins, EKG showed left bundle branch block of unknown chronicity,creatinine was elevated, the patient was mildly hypotensive and tachycardic overthere ESR and CRP were elevated for which patient was given antibiotics and was given IV fluids, and after discussing the case with our head golf coach on-call patient was started on heparin drip and was transferred to our facility to ICU to be continued on heparin drip for cardiology evaluation. Patient underwent cardiac cath in our facility on 03/17/2022, patient was found with severe three-vessel disease, patent grafts x4. Intact TAVR/bioprosthetic aortic valve. Recommendations by cardiology was to continue medical therapy, continue Plavix, high-dose statin, treat underlying urosepsis and follow-up withhis primary head golf coach as outpatient. Patient was started on Azactam on admission due to penicillin allergy. Urine and blood cultures from [place] was sent home for which showed Proteus and Enterobacter and gram-negative infection with bacteremia. Repeat blood culturesobtained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 surgery) 1200 (Due) PRN Medication Order 09/17/2021 09/18/2021 09/19/2021 0.9 % sodium chloride infusion IntraVENous, at 5-250 mL/hr, PRN, if patient receiving piggyback infusions and maintenance fluids are not ordered OR KVO fluids to protect IV site / prevent frequent line interruptions/ long duration, Starting on Sun09/19/21 at 1142, For piggyback infusion, administer at same rate as piggyback for a total of 25 mL. Enter 25 mL into dose field and piggyback rate into rate field of order. If piggyback is infusing at a rate less than 100 mL/hr, enter 25 mL into dose field and 100 mL/hr into rate field of order. For KVO fluids, enter rate of 20 mL/hr or less into rate field of order., Pre-op (day of surgery) balanced salts (BSS) 500 mL, EPINEPHrine (EPINEPHrine HCL) 0.5 mg (CANCELED) PRN, Starting on Sun09/19/21 at 1259, Intra-op 1259 (Given - Provid er: Roberta Vazquez DO) lidocaine PF 1 % injection (CANCELED) PRN, Starting on Sun09/19/21 at 1300, Until Sun09/19/21 at 1322, Intra-op 1300 (Given - Provid er: Roberta Vazquez DO) sodium chloride flush 0.9 % injection 5-40 mL 5-40 mL, IntraVENous, PRN, Starting on Sun09/19/21 at 1142, Until Discontinued, Line Care, After every IV line use, For Line Patency: Peripheral IV = 5 mL; Midline or Central Line = 10 mL/lumen. If following IV push medication, administer flush at same rate as the IV push. Flush volume is determined by type of infusion therapy being given. For non-viscous solutions use: Peripheral IV = 5 mL Midline or Central Line = 10 mL/lumen For viscous solutions (i.e. blood components, parenteral nutrition, contrast media, or after obtaining blood sample) use: Peripheral IV = 10 mL Midline or Central Line = 20 mL/lumen, Pre-op (day of surgery) tetracaine (TETRAVISC) 0.5 % ophthalmic solution (CANCELED) PRN, Starting on Sun09/19/21 at 1300, Until Sun09/19/21 at 1322, Intra-op 1300 (Given - Provid er: Roberta Vazquez DO) Care Teams (unrecognized sec tion and content) Aed Trainer Relationship Specialty Start Date End Date Mary Beth Pitts MD PCP - General 03/03/16 Aed Trainer Relationship Specialty Start Date End Date Mary Beth Pitts MD PCP - General 03/03/16 Team Status: Inactive Member Role Status Dates Mary Beth Pitts MD Primary Care Provider Active Madeline Barry MD Admit Provider Active Neno Moreira MD Attending Provider Active Saima Stahl RN Other Provider Active Marlon Shetty DO Other Provider Active Christel Ramirez MD Other Provider Active Jc Sorto MD Other Provider Active Roman Sweeney MD Other Provider Active Jamari Moraes MD Other Provider Active Luh Morrell APRN Other Provider Active Page Miller MD Other Provider Active Luis Key MD Other Provider Active Eduardo Nguyen MD Other Provider Active Linh Quintanilla , [facility]- Other Provider Active Debi Goins MD Other Provider Active Cristo Rivera MD Other Provider Active Kendal Moy MD Other Provider Active Trino Carlton MD Other Provider Active Mary Jane Morrell Jr, MD Other Provider Active Karla Aranda MD Other Provider Active Seth Segundo MD Other Provider Active Team Status: Active Member Role Status Dates Mary Beth Pitts MD Primary Care Provider Active Team Status: Inactive Member Role Status Dates Mary Beth Pitts MD Primary Care Provider, Attending Arelis arciniega Active Blas Ospina MD Other Provider Active Goals (unrecognized section and content) Goals may be documented in a n alternate section REASON FOR VISIT (unrecogniz ed section and content) POSSIBLE BLOODCLOTxrayvarico se veinsSORE ON TOE/HE IS DIABETICrefillmessageReferral updaterefill FOR RECORDS PERTAINING TO PATIENTS WHO ARE OR HAVE BEEN ENROLLED IN A CHEMICAL DEPENDENCY/SUBSTANCEABUSE PROGRAM, SOME INFORMATION MAY BE OMITTED. This clinical summary was aggregated from multiple sources. Caution should be exercised in using it in the provision of clinical care. This summary normalizes information from multiple sources, and as a consequence, information in this document may materially change the coding, format and clinical context of patient data. In addition, data may be omitted in some cases. CLINICAL DECISIONS SHOULD BE BASED ON THE PRIMARY CLINICAL RECORDS. [facility] provides no warranty or guarantee of the accuracy or completeness of information in this document.
[2023-08-18 07:54] LABS: Basophils Percent Auto 0.1 % (0.2-2.0); Eosinophils Absolute Auto 0.1 10^3/uL (0.0-0.7); Eosinophils Percent Auto 0.8 % (0.9-7.0); Hematocrit 35.8 % (42.0-54.0); Hemoglobin 11.9 g/dL (14.0-18.0); Immature Granulocytes Abs Auto 0.01 10^3/uL (0.00-0.03); Immature Granulocytes Pct Auto 0.1 % (0.0-0.5); Lymphocytes Absolute Auto 2.5 10^3/uL (1.2-3.8); Lymphocytes Percent Auto 24.3 % (20.5-60.0); Mean Corpuscular HGB Conc 33.2 g/dL (29.9-35.2); Mean Corpuscular Hemoglobin 30.8 pg (25.9-34.0); Mean Corpuscular Volume 92.7 fL (80.0-94.0); Mean Platelet Volume 9.2 fL (9.5-13.5); Monocytes Absolute Auto 0.8 10^3/uL (0.3-0.8); Monocytes Percent Auto 8.2 % (1.7-12.0); Neutrophils Absolute Auto 6.7 10^3/uL (1.4-6.5); Neutrophils Percent Auto 66.5 % (43.0-75.0); Platelet Count 186 10^3/uL (150-450); Red Blood Count 3.86 10^6/uL (4.70-6.10); Red Cell Distribution Width 12.2 % (11.0-15.0); White Blood Count 10.1 10^3/uL (4.0-11.0)
[2023-08-18 08:08] LABS: Alanine Aminotransferase 17 U/L (16-63); Albumin Level 3.4 g/dL (3.4-5.0); Alkaline Phosphatase 70 U/L (46-116); Anion Gap 12.6; Aspartate Amino Transferase 12 U/L (15-37); BUN Creatinine Ratio 15.3; Bilirubin Total 0.3 mg/dL (0.2-1.0); Carbon Dioxide 26.5 mmol/L (21.0-32.0); Chloride 105 mmol/L (98-107); Cholesterol 82 mg/dL (<=200); Estimated GFR (African America >60 (>=60); Estimated GFR (Non-African Ame 57 (>=60); Globulin 3.5 g/dL; Glucose 172 mg/dL (74-106); HDL Cholesterol 41 mg/dL (40-60); LDL Cholesterol Calculated 31.6 mg/dL; Potassium 5.1 mmol/L (3.5-5.1); Sodium 139 mmol/L (136-145); Total Protein 6.9 g/dL (6.4-8.2); Triglycerides 47 mg/dL (<=150); VLDL CHOLESTEROL 9.4 mg/dL
== END 2023-08-18 07:33 | disposition home or self-care (01) ==
PROVIDERS: PCP Family Medicine; Visit Provider Family Medicine
DX: I73.9 Peripheral vascular disease, unspecified (principal); I70.221 Atherosclerosis of native arteries of extremities with rest pain, right leg
CPT/HCPCS: 36415; 80053; 80061; 85025

== ENCOUNTER 2023-09-03 13:26 | Outpatient (OUT) | payer MEDICARE, MEDICAID, SELFPAY ==
[2023-09-03 14:00] LABS: Basophils Percent Auto 0.1 % (0.2-2.0); Eosinophils Absolute Auto 0.1 10^3/uL (0.0-0.7); Eosinophils Percent Auto 0.9 % (0.9-7.0); Hematocrit 32.4 % (42.0-54.0); Hemoglobin 10.8 g/dL (14.0-18.0); Immature Granulocytes Abs Auto 0.02 10^3/uL (0.00-0.03); Immature Granulocytes Pct Auto 0.3 % (0.0-0.5); Lymphocytes Absolute Auto 2.3 10^3/uL (1.2-3.8); Lymphocytes Percent Auto 31.1 % (20.5-60.0); Mean Corpuscular HGB Conc 33.3 g/dL (29.9-35.2); Mean Corpuscular Hemoglobin 30.9 pg (25.9-34.0); Mean Corpuscular Volume 92.6 fL (80.0-94.0); Mean Platelet Volume 9.3 fL (9.5-13.5); Monocytes Absolute Auto 0.9 10^3/uL (0.3-0.8); Monocytes Percent Auto 11.3 % (1.7-12.0); Neutrophils Absolute Auto 4.2 10^3/uL (1.4-6.5); Neutrophils Percent Auto 56.3 % (43.0-75.0); Platelet Count 186 10^3/uL (150-450); Red Cell Distribution Width 12.4 % (11.0-15.0); White Blood Count 7.5 10^3/uL (4.0-11.0)
[2023-09-03 14:36] LABS: Anion Gap 15.3; BUN Creatinine Ratio 12.3; Carbon Dioxide 25.5 mmol/L (21.0-32.0); Chloride 103 mmol/L (98-107); Estimated GFR (African America 50 (>=60); Estimated GFR (Non-African Ame 41 (>=60); Glucose 228 mg/dL (74-106); Potassium 4.8 mmol/L (3.5-5.1); Sodium 139 mmol/L (136-145)
[2023-09-03 15:16] LABS: INR 1.06; Partial Thromboplastin Time 28.1 sec (22.3-36.2); Prothrombin Time 11.2 sec (9.0-11.6)
== END 2023-09-03 13:27 | disposition home or self-care (01) ==
PROVIDERS: PCP Family Medicine
DX: Z01.818 Encounter for other preprocedural examination (principal); I87.8 Other specified disorders of veins; I70.221 Atherosclerosis of native arteries of extremities with rest pain, right leg
CPT/HCPCS: 36415; 80048; 85025; 85610; 85730; 87081

== ENCOUNTER 2023-10-04 15:27 | Inpatient (IN) | payer MEDICARE, MEDICAID, SELFPAY ==
[2023-10-04] VITALS (37 sets, daily range): BP systolic 60–152; BP diastolic 40–95; PULSE 98–122; TEMP 36.7–39.4; O2SAT 88–99; BMI 30.8; BMI 32.1
--- NOTE | 2023-10-04 15:43 | ECG_ITS ---
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
--- NOTE | 2023-10-04 15:43 | XR_ITS ---
The [address] [address] Patient Name: MARILU TAYLOR MRN: [id number] date: 1950 Sex: M Assigned Patient Location: ER Current Patient Location: ER Accession/Order Number: [id number] Exam Date: 10/04/2023 16:18 Report Date: 10/04/2023 16:34 At the request of: TAMARA GARCIA Procedure: XR chest 1V EXAMINATION: XR chest 1V HISTORY: Tachycardic, weak COMPARISON: 03/16/2022 TECHNIQUE: AP portable FINDINGS: LUNGS: No significant pulmonary parenchymal abnormalities. Blunting of the right cardiophrenic angle, stable VASCULATURE: No increased pulmonary vasculature. PLEURA: No pneumothorax, effusion, or pleural thickening. CARDIAC: No cardiomegaly or cardiac silhouette abnormality. MEDIASTINUM: No visible mass or adenopathy. Aortic atherosclerosis BONES: No fracture or visible bone lesion. OTHER: Negative. XR/XR chest 1V IMPRESSION: No new focal infiltrates Electronically authenticated by: MICHAEL ARENAS Date: 10/04/2023 16:34
--- NOTE | 2023-10-04 15:44 | ED_ITS ---
HPI HPI - General Adult General Chief complaint: Fever Stated complaint: Post Surgical Complications Time Seen by Provider: 10/04/23 15:28 Source: patient Mode of arrival: Wheelchair Limitations: no limitations History of Present Illness HPI narrative: 73-year-old male presents for feeling weak and shaky. It began yesterday. She recently had vascular surgery in his right groin. Home care nurse is packing a very small wound there. He is not complaining of pain there. He threw up once today. No diarrhea chest pain or cough. He has not complained to me of feeling short of breath. Related Data Home Medications ?Medication ?Instructions ?Recorded ?Confirmed amlodipine 10 mg tablet 10 mg PO DAILY 10/04/23 10/04/23 dutasteride 0.5 mg capsule 0.5 mg PO DAILY 10/04/23 10/04/23 isosorbide mononitrate 60 mg 60 mg PO DAILY 10/04/23 10/04/23 tablet,extended release 24 hr lisinopril 20 mg tablet 20 mg PO DAILY 10/04/23 10/04/23 metformin 500 mg tablet,extended 1,000 mg PO BID 10/04/23 10/04/23 release 24 hr metoprolol tartrate 50 mg tablet 50 mg PO Q12H 10/04/23 10/04/23 rivaroxaban 20 mg tablet (Xarelto) 20 mg PO Q24H 10/04/23 10/04/23 simvastatin 40 mg tablet 40 mg PO DAILY 10/04/23 10/04/23 sitagliptin phosphate 100 mg 100 mg PO BID 10/04/23 10/04/23 tablet (Januvia) spironolactone 25 mg tablet 12.5 mg PO DAILY 10/04/23 10/04/23 tamsulosin 0.4 mg capsule 0.4 mg PO Q24H 10/04/23 10/04/23 Allergies Allergy/AdvReac Type Severity Reaction Status Date / Time Penicillins AdvReac Severe Swelling Verified 10/04/23 17:20 of Lip/Tongue/Throat sulfamethoxazole AdvReac Severe Swelling Verified 10/04/23 17:20 [From Bactrim] of Lip/Tongue/Throat trimethoprim [From Bactrim] AdvReac Severe Swelling Verified 10/04/23 17:20 of Lip/Tongue/Throat doxycycline AdvReac Mild Blister Verified 10/04/23 17:20 Opioid HPI Opioid Management Most Recent Opioid Data: Last Pain Scale 9 10/04/23 17:04 Last MAR Pain Assessment 10/04/23 17:04 Review of Systems ROS Narrative A ten point review of systems is negative except as noted above. Exam Narrative Exam Narrative: Nurses note and vital signs reviewed and patient is not hypoxic. General: The patient appears well and in no apparent distress. Patient is resting comfortably on cart. Skin: Warm, dry, no pallor noted. There is no rash noted. Head: Normocephalic, atraumatic Eye: Normal conjunctiva, no drainage Ears, Nose, Mouth, and Throat: oral mucosa is moist. Nares patent. Cardiovascular: Regular Rate and Rhythm, minimally tachycardic Respiratory: Patient is in no distress, no accessory muscle use, lungs are clear to auscultation, no wheezing, rales or rhonchi Back: non-tender GI: Soft and nontender Musculoskeletal: The patient has no evidence of calf tenderness, no pitting edema, symmetrical pulses noted bilaterally Neurological: A&O, normal speech Psychiatric: Cooperative Constitutional Vital Signs, click to edit/add: Last Vital Signs Temp 99.9 F 10/04/23 18:20 Pulse 114 H 10/04/23 17:50 Resp 19 10/04/23 17:50 BP 123/53 10/04/23 17:46 Pulse Ox 97 10/04/23 17:50 O2 Del Method Room Air 10/04/23 16:45 Course Vital Signs Vital signs: Vital Signs Temperature 98.4 F 10/04/23 15:36 Pulse Rate 102 H 10/04/23 15:36 Respiratory Rate 20 10/04/23 15:36 Blood Pressure 137/78 10/04/23 15:36 Pulse Oximetry 99 10/04/23 15:36 Oxygen Delivery Method Room Air 10/04/23 15:36 Temperature 99.9 F 10/04/23 18:20 Pulse Rate 114 H 10/04/23 17:50 Respiratory Rate 19 10/04/23 17:50 Blood Pressure 123/53 10/04/23 17:46 Pulse Oximetry 97 10/04/23 17:50 Oxygen Delivery Method Room Air 10/04/23 16:45 Medical Decision Making MDM Narrative Medical decision making narrative: The patient presents with fever. His WBC is 16,000 with a negative chest x-ray and negative influenza and COVID test. Urinalysis and CT of the abdomen are pending and the patient is signed out to Dr. So at change of shift. I do not suspect a surgical wound infection. He was given IV antibiotic, vancomycin because of multiple antibiotic allergies. Penicillin caused severe swelling. Differential Diagnosis Differential Diagnosis: UTI, pneumonia Lab Data Lab results reviewed: Yes I reviewed the patient's lab results Labs: Lab Results 10/04/23 10/04/23 Range/Units 16:04 16:23 WBC 16.6 H (4.0-11.0) 10^3/uL RBC 3.53 L (4.70-6.10) 10^6/uL Hgb 10.7 L (14.0-18.0) g/dL Hct 32.9 L (42.0-54.0) % MCV 93.2 (80.0-94.0) fL MCH 30.3 (25.9-34.0) pg MCHC 32.5 (29.9-35.2) g/dL RDW 12.2 (11.0-15.0) % Plt Count 159 (150-450) 10^3/uL MPV 9.5 (9.5-13.5) fL Neut % (Auto) 85.1 H (43.0-75.0) % Lymph % (Auto) 5.2 L (20.5-60.0) % [place] % (Auto) 8.3 (1.7-12.0) % Eos % (Auto) 0.0 L (0.9-7.0) % Baso % (Auto) 0.1 L (0.2-2.0) % Neut # (Auto) 14.1 H (1.4-6.5) 10^3/uL Lymph # (Auto) 0.9 L (1.2-3.8) 10^3/uL [place] # (Auto) 1.4 H (0.3-0.8) 10^3/uL Eos # (Auto) 0.0 (0.0-0.7) 10^3/uL Baso # (Auto) 0.0 (0.0-0.1) 10^3/uL Abs Immat Gran (auto) 0.21 H (0.00-0.03) 10^3/uL Imm/Tot Granulo (auto) 1.3 H (0.0-0.5) % Sodium 129 L (136-145) mmol/L Potassium 4.4 (3.5-5.1) mmol/L Chloride 96 L (98-107) mmol/L Carbon Dioxide 23.3 (21.0-32.0) mmol/L Anion Gap 14.1 BUN 14.0 (7.0-18.0) mg/dL Creatinine 1.14 (0.70-1.30) mg/dL Est GFR ( Amer) >60 (>=60) Est GFR (Non-Af Amer) >60 (>=60) BUN/Creatinine Ratio 12.3 Glucose 255 H (74-106) mg/dL Lactate 2.5 H* (0.4-2.0) mmol/L Calcium 9.1 (8.5-10.1) mg/dL Procalcitonin 0.23 (0.00-0.50) ng/mL Influenza Type A Ag Negative Influenza Type B Ag Negative SARS-CoV-2 Ag (CV2AG) Negative (NEGATIVE) Imaging Data Chest x-ray: Radiologist's impression: ITS Impressions Chest X-Ray 10/04/23 15:43 IMPRESSION: No new focal infiltrates Electronically authenticated by: MICHAEL ARENAS Date: 10/04/2023 16:34 Discharge Plan Discharge Chief Complaint: Fever Clinical Impression: Fever, Leukocytosis Patient Disposition: Still a Patient Prescriptions / Home Meds: No Action amlodipine 10 mg tablet 10 mg PO DAILY dutasteride 0.5 mg capsule 0.5 mg PO DAILY isosorbide mononitrate 60 mg tablet extended release 24 hr 60 mg PO DAILY lisinopril 20 mg tablet 20 mg PO DAILY metformin 500 mg tablet extended release 24 hr 1,000 mg PO BID metoprolol tartrate 50 mg tablet 50 mg PO Q12H Xarelto 20 mg tablet 20 mg PO Q24H simvastatin 40 mg tablet 40 mg PO DAILY spironolactone 25 mg tablet 12.5 mg PO DAILY tamsulosin 0.4 mg capsule 0.4 mg PO Q24H Januvia 100 mg tablet 100 mg PO BID Print Language: Uzbek Referrals: Susana Jackson MD [Primary Care Provider] - 1 week
[2023-10-04 16:19] LABS: Basophils Percent Auto 0.1 % (0.2-2.0); Hematocrit 32.9 % (42.0-54.0); Hemoglobin 10.7 g/dL (14.0-18.0); Immature Granulocytes Abs Auto 0.21 10^3/uL (0.00-0.03); Immature Granulocytes Pct Auto 1.3 % (0.0-0.5); Lymphocytes Absolute Auto 0.9 10^3/uL (1.2-3.8); Lymphocytes Percent Auto 5.2 % (20.5-60.0); Mean Corpuscular HGB Conc 32.5 g/dL (29.9-35.2); Mean Corpuscular Hemoglobin 30.3 pg (25.9-34.0); Mean Corpuscular Volume 93.2 fL (80.0-94.0); Mean Platelet Volume 9.5 fL (9.5-13.5); Monocytes Absolute Auto 1.4 10^3/uL (0.3-0.8); Monocytes Percent Auto 8.3 % (1.7-12.0); Neutrophils Absolute Auto 14.1 10^3/uL (1.4-6.5); Neutrophils Percent Auto 85.1 % (43.0-75.0); Platelet Count 159 10^3/uL (150-450); Red Blood Count 3.53 10^6/uL (4.70-6.10); Red Cell Distribution Width 12.2 % (11.0-15.0); White Blood Count 16.6 10^3/uL (4.0-11.0)
[2023-10-04] MEDS: ACETAMINOPHEN 325 MG TABLET 650 MG PO (16:20)
[2023-10-04 16:29] LABS: Anion Gap 14.1; BUN Creatinine Ratio 12.3; Calcium 9.1 mg/dL (8.5-10.1); Carbon Dioxide 23.3 mmol/L (21.0-32.0); Chloride 96 mmol/L (98-107); Estimated GFR (African America >60 (>=60); Estimated GFR (Non-African Ame >60 (>=60); Glucose 255 mg/dL (74-106); Potassium 4.4 mmol/L (3.5-5.1); Sodium 129 mmol/L (136-145)
[2023-10-04] MEDS: 0.9 % SODIUM CHLORIDE 1,000 ML 125 ML IV (16:30)
[2023-10-04 16:50] LABS: Influenza Virus A Antigen Negative; Influenza Virus B Antigen Negative; Internal Control Within Normal Limits; SARS-CoV-2 Ag NEGATIVE (NEGATIVE)
[2023-10-04 16:58] LABS: Lactate/Lactic Acid 2.5 mmol/L (0.4-2.0)
[2023-10-04] MEDS: MORPHINE SULFATE 4 MG/ML VIAL IV ×2 (17:04→19:27)
[2023-10-04] MEDS: VANCOMYCIN HCL 1,000 MG in 0.9 % SODIUM CHLORIDE 250 ML 250 MG IV (17:36)
--- NOTE | 2023-10-04 17:37 | CT_ITS ---
[address] [place], [place] [address] Patient Name: MARILU TAYLOR MRN: [id number] date: 1950 Sex: M Assigned Patient Location: ER Current Patient Location: .MAIN Accession/Order Number: [id number] Exam Date: 10/04/2023 17:52 Report Date: 10/04/2023 18:47 At the request of: TAMARA GARCIA Procedure: CT abdomen pelvis w con EXAM: CT abdomen pelvis w con HISTORY: Fever, pain COMPARISON: 03/03/2022 TECHNIQUE: Axial CT imaging was performed through the abdomen and pelvis with intravenous contrast. Multiplanar reformats were performed. Dose reduction techniques were achieved by using automated exposure control and/or adjustment of mA and/or kV according to patient size and/or use of iterative reconstruction technique. FINDINGS: Lung bases: Lung bases are clear. No pleural effusion. GI upper: Small hiatal hernia. Liver: Normal size and contour. Gallbladder: No significant abnormality. No cholelithiasis. Biliary system: No intra or extrahepatic biliary ductal dilatation. Spleen: Normal size. Pancreas: Unremarkable. Adrenal glands: Normal adrenal glands. Kidneys/ureters: Normal contours. No hydronephrosis. No nephrolithiasis or ureterolithiasis. Bilateral perirenal fat stranding, nonspecific in candidate to infection/inflammation. Correlation with urinalysis is recommended. No definite abnormal enhancement. Vessels: No aneurysm. Lymph Nodes: No lymphadenopathy. Small bowel: No wall thickening or dilatation. Colon: No wall thickening or dilatation. Proximal sigmoid diverticulosis without evidence of acute diverticulitis. Appendix: No findings of appendicitis. Peritoneal cavity: No free fluid or pneumoperitoneum. Lower : Unremarkable. Bones: No acute bony abnormality. Soft tissues: No acute finding. Additional findings: None. CT/CT abdomen pelvis w con IMPRESSION: Bilateral perirenal fat stranding, nonspecific in candidate to infection/inflammation. Correlation with urinalysis is recommended. Electronically authenticated by: MARY BERGER Date: 10/04/2023 18:47
[2023-10-04 18:05] LABS: PROCALCITONIN 0.23 ng/mL (0.00-0.50)
[2023-10-04] MEDS: 0.9 % SODIUM CHLORIDE 1,000 ML 999 ML IV (20:00)
[2023-10-04 20:06] LABS: Bilirubin Urine NEGATIVE (NEGATIVE); Blood Urine SMALL (NEGATIVE); Clarity Urine CLEAR (CLEAR); Color Urine YELLOW (YELLOW); Glucose Urine UA 100 mg/dL (NEGATIVE); Ketones Urine NEGATIVE (NEGATIVE); Leukocyte Esterase Urine NEGATIVE (NEGATIVE); Nitrite Urine NEGATIVE (NEGATIVE); Protein Urine 30 mg/dL (NEG/TRACE); Specific Gravity Urine <=1.005 (1.005-1.025); Urobilinogen Urine 0.2 EU/dL (0.2-1.0); pH Urine 5.5 (5.0-9.0)
[2023-10-04 20:15] LABS: Bacteria Urine MODERATE #/HPF (NONE SEEN); Cast Seen? NONE SEEN #/LPF (NONE SEEN); Crystals Seen? None Seen #/HPF (None Seen); Mucus Urine NONE SEEN (NONE SEEN); Squamous Epithelial Cell Urine MODERATE #/LPF (NONE/RARE); Urine Culture Indicated YES
[2023-10-04 20:39] LABS: Lactate/Lactic Acid 4.4 mmol/L (0.4-2.0)
--- NOTE | 2023-10-04 20:42 | PC.NURSE ---
Lactate result received and reported to Dr.. So.
[2023-10-04] MEDS: LEVOFLOXACIN IN DEXTROSE 5 % 500 MG/100 ML PIGGYBACK 100 MG IV (20:54)
--- OUTSIDE RECORDS SUMMARY | 2023-10-04 21:11 | XMS_ITS | CCD ---
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 Role Phone ANA AYALA Admitting Unavailable SELF, REFERRED Referring Unavailable EBJONY NAM Surgeon Unavailable [place] Procedure Practitioner Unavailab le PITTS, MARY BETH Primary Care Unavailable MICHAEL BIGGS Attending Unavailable SWETHA WINTER Attending Unavailable SWETHA WINTER Admitting Unavailable HONG, MARY BETH Primary Care Unavailable HONG, MARY BETH Referring Unavailable HONG, MARY BETH Primary Care Unavailable HONG, MARY BETH Referring Unavailable KENDAL TORRES Attending Unavailable KENDAL TORRES Admitting Unavailable MASROOR, SANTANA Surgeon Unavailable MASROOR, SANTANA Admitting Unavailable MI Procedure Practitioner Unavailab le MARY BETH PITTS Referring Unavailable REYNALDO COX Attending Unavailable HONG, MARY BETH Primary Care Unavailable REYNALDO COX Surgeon Unavailable [place] Procedure Practitioner Unavailab le UNKNOWN, PROVIDER Surgeon Unavailable [place] Procedure Practitioner Unavailab bryson Pitts , Mary Beth Primary Care Provider [phone] Hong DIAZ, Mary Beth Primary Care Provider Mary Beth Pitts MD Primary Care Provider Hong DIAZ, Mary Beth Primary Care Provider MARY BETH PITTS Primary Care Unavailable MARY BETH PITTS Referring Unavailable BLAS OSPINA Referring Unavailable HONG, MARY BETH Primary Care Unavailable HONG, MARY BETH Primary Care Unavailable ROBERTA VAZQUEZ Admitting Unavailable ROBERTA VAZQUEZ Attending Unavailable MARY BETH PITTS Primary Care Physician [phone] Diogenes, Dr. Jc Case Attending Skinny Pitts, Dr. Mary Beth Roman Primary Care Flavia Pitts, Dr. Mary Beth Roman Primary Care Flavia Shetty, Dr. Jc Case Attending Skinny Pitts, Dr. Mary Beth Roman Primary Care Flavia Pitts, Dr. Mary Beth Roman Primary Care MD Mary Beth Rogers Primary Care Provider MD Madeline Barry Admit Provider MD Neno Moreira Attending Provider YOCASTA Stahl Other Provider Unavailable DO Marlon Shetty Other Provider MD Christel Ramirez Other Provider MD Jc Sorto Other Provider MD Roman Sweeney Other Provider MD Jamari Moraes Other Provider JOSE ENRIQUE Andrews Other Provider [phone] MD Page Miller Other Provider MD Luis Key Najebala Other Provider MD Eduardo Nguyen Other Provider Socorro [facility] Linh Liriano Other Provider [phone] MD Debi Goins Other Provider [phone] MD Cristo Rivera Other Provider MD Kendal Moy Other Provider [phone] MD Trino Carlton Other Provider MD Mary Jane Morrell Jr Other Provider MD Karla Aranda Other Provider MD Seth Segundo Other Provider [phone] GALEN MEDINA Consulting Unavailable HONG, DR [...] Pitts Primary Care Skinny Villagomez MD, Gerald éPrez Attending Unavailable MD Mary Beth Pitts Consulting MD Mary Beth Hussein Primary Care Skinny Villagomez MD, Gerald Pérez Attending Unavailable Hernando DIAZ, Gerald Pérez Attending Unavailable MD Mary Beth Pitts Primary [facility] MD Mary Beth Hussein Consulting Skinny Villagomez MD, Gerald Pérez Attending Unavailable MD Mary Beth Pitts Primary [facility] MD Mary Beth Hussein Consulting MD Mary Beth Hussein Primary [facility] Skinny Villagomez MD, Gerald Pérez Attending Unavailable Hernando DIAZ, Gerald Pérez Attending Unavailable MD Mary Beth Pitts Primary Care Provider MD Mary Beth Pitts Attending Provider [phone] MD Blas Ospina V Other Provider Blas Ospina V Consulting Unavailable Mary Beth [...] Mary Beth Pitts Unavailable Mahendra Escalante Unavailable [phone] Cristo RIVERA Attending Unavailable Cristo RIVERA Attending Unavailable Cristo RIVERA Attending Unavailable Cristo RIVERA Attending Unavailable Cristo RIVERA Attending Unavailable Lulu Coates Attending Unavailable Cristo RIVERA Attending Unavailable Cristo RIVERA Attending Unavailable KAMILA WILSON Attending Unavailable MARSHALL LUONG Attending Unavailable MARSHALL LUONG Attending Unavailable MOSANDRA, BLAS Attending Unavailable MOUKARBJADYN, BLAS Attending Unavailable MOUKARBEL, BLAS Attending Unavailable MARSHALL LUONG Referring Unavailable MARSHALL LUONG Referring Unavailable BLAS OSPINA Admitting Unavailable MOBLAS FLORES Attending Unavailable NAANTHONY DUQUE Admitting Unavailable NAZZANTHONY BOGGS Attending Unavailable Allergies Allergy Classification Reported Allergen(s) Allergy Type Date of Onset Reaction(s) Facility Penicillins (antibiotic) (1 source) Penicillins Drug Allergy 10-30-19 15 Shortness Of Breath [facility] (5 sources) Erythromycin; Translations: [ERYTHROMYCIN BASE] Drug Allergy 11-12-19 14 Vomiting [facility] (7 sources) Penicillins; Translations: [PENICILLINS] Drug allergy (disorder) 12-03-19 14 Shortness Of Breath, Swelling [facility] (1 source) Sulfamethoxazole / Trimethoprim Drug Allergy 09-14-19 15 [facility] (1 source) Penicillins Propensity to adverse reactions to drug 10-30-19 15 Shortness Of Breath [facility] (13 sources) Erythromycin; Translations: [ERYTHROMYCIN] Drug Allergy 09-07-19 22 Unknown [facility] (19 sources) Penicillin; Translations: [penicillin] Drug Allergy Tightness in throat (finding), hives, Anaphylaxis (disorder) [facility] (9 sources) Sulfonamides (Antibiotic); Translations: [sulfa drugs] Drug allergy Vomitus (substance) [facility] (3 sources) Sulfonamides (Antibiotic); Translations: [Sulfa (Sulfonamide Antibiotics)] Allergy to substance 03-17-20 22 Unknown Reaction [facility] (1 source) Sulfonamides (Antibiotic) Drug allergy (disorder) 11-19-19 14 [facility] (1 source) MOST ANTIBIOTICS; Translations: [MOST ANTIBIOTICS] Propensity to adverse reactions to drug (disorder) [facility] (1 source) Erythromycin Drug Allergy 03-17-20 22 [facility] (1 source) Penicillins Drug allergy (disorder) 03-17-20 [facility] (8 sources) Sulfamethoxazole / Trimethoprim Drug Allergy Unknown [employer] Other (2 sources) Substance with penicillin structure and antibacterial mechanism of action (substance) Drug allergy 03-03-20 15 Unknown [employer] Other (2 sources) ANTIBIOTICS Propensity to adverse reactions 03-03-20 15 Unknown [employer] Other (2 sources) Allergies Reconciled Propensity to adverse reactions Unknown [employer] Other (2 sources) patient allergy list reviewed by nurse or physicia Propensity to adverse reactions 03-03-20 Comment:Done [employer] Other (3 sources) Doxycycline; Translations: [doxycycline] Drug Allergy 09-03-19 Blisters beneath skin (disorder) [facility] Rep[facility] Comment on above: Blisters on hands (1 source) levoFLOXacin; Translations: [LEVOFLOXACIN] Drug Allergy 04-14-20 [facility] (1 source) Sulfamethoxazole / Trimethoprim; Translations: [SULFAMETHOXAZOLE-T RIMETHOPRIM] Drug Allergy 04-14-20 [facility] Medications Current Medications Medication Drug Class(es) Dates [...] 02/27/22 Status: [facility] clopidogrel (PLAVIX) 75 MG [...] day(s), # 60 cap(s), Refills(s) 0, Pharmacy: [id number], 166, cm, 11/27/22 9:40:00 EDT, Height/Length Dosing, 71, kg, 11/27/22 9:40:00 EDT, Weight Dosing Start Date: 11/27/22 Stop Date: 12/27/22 Status: Ordered Start: 08-28-2022 take 1 capsule by mo [facility] every twenty-four hours Doxycycline Monohydrate 100 MG [...] 02/27/22 Status: Ordered take 0.5 tablet by [facility] once daily Lisinopril 40 MG 1/2 tablet Orally Once a day Active take 1 tablet by vasiliy th every twenty-four hours take 1 tablet by vasiliy th once daily lisinopril (PRINIVIL;ZESTRIL) 2.5 MG tablet [...] Status: Ordered take 2 tablets by mo [facility] twice daily metFORMIN HCl ER 500 MG TAKE 2 TABLETS BY MOUTH 2 TIMES A DAY Active take 1 tablet by vasiliy th twice daily at mealtime metFORMIN (GLUCOPHAGE) 500 [...] take 1 tablet by vasiliy th every twelve hours Metoprolol Tartrate 50 MG 1 tablet with food Orally Twice a day Active take 1 tablet by vasiliy th twice daily metoprolol (TOPROL-XL) 50 MG XL [...] Active Start: 09-18-2022 take 1 capsule by [facility] every twelve hours Lyrica 75 MG 1 capsule Orally Twice a day for 30 days September, Active Start: 08-24-2022 take 1 capsule by [facility] every twelve hours Lyrica 50 MG 1 [...] 11:00pm Start: 02-27-2022 take 1 capsule by mo [facility] once daily Flomax 0.4 mg Cap 0.4 [...] of artery bypass graft] Onset: 03-03-2015 Chronic Complications of surgical procedures or medical care (4 sources) Disruption of external operation (surgical) wound, not elsewhere classified, subsequent encounter; Translations: [Postprocedural seroma of skin and subcutaneous tissue following other procedure] Onset: 09-20-2023 Episodic Coronary atherosclerosis and other heart disease (12 [...] disease of prostate, unspecified] Onset: 11-27-2022 Episodic Open wounds of head; neck; and trunk (2 sources) Unspecified open wound of abdominal wall, right lower quadrant without penetration into peritoneal cavity, initial encounter; Translations: [Unspecified open wound of abdominal wall, right lower quadrant without penetration into peritoneal cavity, initial encounter] Onset: 09-27-2023 Episodic Other aftercare (1 source) 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; Translations: [FDC CURRNT USE ANTICOAGULANTS] Onset: 03-20-2022 Episodic Other aftercare (1 source) 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; Translations: [OTH REEL OPERATOR CURRENT DRUG THERAPY] Onset: 03-20-2022 Episodic Other aftercare (1 source) [facility] (current) use of oral hypoglycemic drugs; Translations: [FDC USE ORAL HYPOGLYCEMIC DX] Onset: 03-20-2022 Episodic Other aftercare (4 sources) Long-term current use of anticoagulant; Translations: [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] Onset: 06-05-2022 Episodic Other aftercare (2 sources) 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 antibiotics; Translations: [[facility] (current) use of antibiotics] Onset: 09-20-2023 Episodic Other and ill-defined heart disease (8 [...] of male genital organ 06-25-2023 Episodic Other nervous system disorders (2 sources) Other acute postprocedural pain; Translations: [Other acute postprocedural pain] Onset: 09-10-2023 Episodic Other non-traumatic joint disorders (1 source) Pain in right hip Episodic Other nutritional; endocrine; and metabolic disorders (12 sources) Body mass index 25-29 - overweight; Translations: [Body mass index (BMI) 28.0-28.9, adult] Onset: 05-11-2017 Episodic Peripheral and visceral atherosclerosis (6 sources) Intermittent claudication; Translations: [Peripheral vascular disease, unspecified] Onset: 09-10-2023 Chronic Residual codes; unclassified (2 sources) Urinary [...] Test Name Value Interpretation Reference Range Facility Clinical Support Clinical Support [id number] Bora Dan 1950 M Date Provider Department Center 09/27/2023 [id number] ULTRASOUND ROOM [facility] Family History Problem Relation Age of Onset Diabetes Mother Heart attack Mother Diabetes Father Heart attack Father Breast cancer Sister Colon cancer Brother Cervical cancer Child Family Status - Relation Status Age at Mother Father Sister Brother Child Alive [facility] Follow-Upon 09-27-2023 Follow-Up [id number] Bora Dan ry 1950 M Date Provider Department Center 09/27/2023 MARSHALL JAVIER [facility] Family History Problem Relation Age of Onset Diabetes Mother Heart attack Mother Diabetes Father Heart attack Father Breast cancer Sister Colon cancer Brother Cervical cancer Child Family Status - Relation Status Age at Mother Father Sister Brother Child Alive Level of Service:50807 [place] POSTOP FOLLOW UP VISIT RELATED TO ORIGINAL PX [facility] Follow-Upon 09-20-2023 Follow-Up [id number] Bora Dan ry 1950 M Date Provider Department Center 09/20/2023 MARSHALL JAVIER [facility] Family History Problem Relation Age of Onset Diabetes Mother Heart attack Mother Diabetes Father Heart attack Father Breast cancer Sister Colon cancer Brother Cervical cancer Child Family Status - Relation Status Age at Mother Father Sister Brother Child Alive Level of Service:74430 [place] POSTOP FOLLOW UP VISIT RELATED TO ORIGINAL PX Reason for Visit and Comments: Follow-up [476131] - Brown leakage @ incision site [facility] 36on 09-19-2023 36 Patient called with questions regarding patient's recent surgery. His states he is having some brown fluid leakage at incision site. She also stated his right leg is swollen. It is not red or warm to touch. He is also experiencing some numbness below the knee. Message sent to providers-awaiting reply [facility] Telephoneon 09-19-2023 Telephone [id number] Bora Dan ry 1950 M Date Provider Department Center 09/19/2023 MADISYN LOPEZ [facility] Family History Problem Relation Age of Onset Diabetes Mother Heart attack Mother Diabetes Father Heart attack Father Breast cancer Sister Colon cancer Brother Cervical cancer Child Family Status - Relation Status Age at Mother Father Sister Brother Child Alive [facility] DSon 09-12-2023 DS Admission Admitted 09/10/2023 for Severe claudication (CMS/HCC) Discharge Diagnosis Severe claudication (CMS/HCC) Discharge Disposition Home or Self Care (01) Discharge Medications Your medication list ASK your doctor about these medications Instructions Last Dose Given Next Dose Due amLODIPine 10 mg tablet Commonly known as: Norvasc Take 1 tablet (10 mg) by mouth once daily as directed. dutasteride 0.5 mg capsule Commonly known as: Avodart isosorbide mononitrate ER 60 mg 24 hr tablet Commonly known as: Imdur Take 1 tablet (60 mg) by mouth in the morning. lisinopril 20 mg tablet TAKE 1 TABLET BY MOUTH ONCE A DAY metFORMIN XR 500 mg 24 hr tablet Commonly known as: Glucophage-XR metoprolol tartrate 50 mg tablet Commonly known as: Lopressor Take 1 tablet (50 mg) by mouth in the morning and at bedtime. simvastatin 40 mg tablet Commonly known as: Zocor Take 1 tablet (40 mg) by mouth at bedtime. SITagliptin phosphate 100 mg tablet Commonly known as: Januvia spironolactone 25 mg tablet Commonly known as: Aldactone TAKE 1/2 TABLET BY MOUTH IN THE MORNING tamsulosin 0.4 mg 24 hr capsule Commonly known as: Flomax Xarelto 20 mg tablet Generic drug: rivaroxaban TAKE 1 TABLET BY MOUTH WITH EVENING MEAL. TAKEWITH FOOD. Activity Patient currently has no discharge activity orders Diet Patient currently has no discharge diet orders Allergies Penicillins, Erythromycin, Erythromycin base, Sulfamethoxazole-trimetho prim, and Doxycycline Hospital Course Marilu Dan is a 73 y.o. 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 He was admitted postoperatively and had uneventful postoperative course. He tolerated regular diet, groin incision remained well appearing without concerns for hematoma or infection. Postoperative ABIs were performed on POD#2 and demonstrated improvement 0.82 on the right. He was discharged in stable condition on POD#2 Pertinent Physical Exam At Time of Discharge General Appearance: Awake, Alert & Oriented x3, No Acute Distress Neck: Trachea Midline, No jugular venous distension Pulmonary: Unlabored breathing on room air. No expiratory wheeze. Cardiac: Regular rate Abdomen: soft. Right groin incision with steri strips overlying. groin is soft, no hematoma, erythema, calor, induration Extremity: No edema Bilateral Upper and lower Extremities. Palpable pulses LLE, doplerable dp/pt RLE. Skin: warm and dry without rash Lab Results Labs Reviewed POCT GLUCOSE METER UNSOLICITED RESULTS - Abnormal Result Value Glucose POC 177 (*) Narrative: Waived Testing in the ED is performed under the ED CLIA certificate #[id number]. BASIC METABOLIC PANEL - Abnormal Sodium 133 (*) Potassium 4.9 Chloride 102 CO2 24 BUN 17 Creatinine 0.94 Glucose 266 (*) Calcium 8.4 (*) Anion Gap 12 eGFR 84.5 BUN/Creatinine Ratio 18.1 CBC - Abnormal Auto WBC 8.22 RBC 3.28 (*) Hemoglobin 10.1 (*) Hematocrit 30.2 (*) MCV 92.1 MCH 30.8 MCHC 33.4 RDW 12.2 Platelets 159 MRSA/MSSA DNA NASAL - Normal MSSA DNA Negative MRSA DNA Negative Narrative: Testing methodology is an automated qualitative in vitro diagnostic test for the direct detection and differentiation of Staphylococcus aureus (SA) DNA and methicillin-resistant Staphylococcus aureus (MRSA) DNA from nasal swabs in patients at risk for nasal colonization. The test utilizes real-time polymerase chain reaction (PCR) for the amplification of MRSA/SA DNA and fluorogenic target-specific hybridization probes for the detection of the amplified DNA. A negative result does not preclude nasal colonization. TYPE AND SCREEN ABO Grouping A Rh Type POS Ab Scrn NEG HISTOLOGY - TISSUE EXAM Nutrition Screen Issues Requiring Follow-Up N/a. Groin check in 2 weeks, plan for repeat ABIs in about 6 weeks Outpatient Follow-Up Future Appointments Date Time Provider Department Center 09/27/2023 3:00 PM GALEN Jacome [facility] 10/26/2023 11:00 AM Blas Ospina MD [facility] Test Results Pending At Discharge Pending Labs Order Current Status Histology - tissue exam In process [facility] NURSNOTEon 09-12-2023 NURSNOTE Patient discharge instructions provided to patient and , both verbalized understanding. [place] Transported to main entrance via wheelchair to Daughter's private vehicle. No issues noted. [facility] 30on 09-11-2023 30 Daily Case Managemen t Update Multidisciplinary rounds have been completed. Barriers to Discharge: Pending clinical course; POD #1 Common Femoral Artery, Superficial Femoral Artery, Profunda Femoral Artery Thromboendartectomy w/ patch Angioplasty; Plan to discharge home when medically ready. Diet: Dietary Orders (From admission, onward) Start Ordered 09/11/23 0816 Regular Diet Heart Healthy/HTN, CABG,Stroke, (2gNA, low fat, low cholesterol) Diet effective now Question Answer Comment Room Service? Yes Fat restriction: Heart Healthy/HTN, CABG,Stroke, (2gNA, low fat, low cholesterol) 09/11/23 0816 Physician Expected Discharge Date: 09/12/2023 Discharge Delays: PT Six Click Score: 18 OT Six Click Score: PT Recommendations: OT Recommendations: Normal [facility] 30 The patient is Moder ately Unstable - Medium risk of patient condition declining or worsening The patient's goals for the shift include comfort and rest The clinical goals for the shift include vss, safety Problem: Pain - Adult Goal: Verbalizes/displays adequate comfort level or baseline comfort level Outcome: Progressing Problem: Safety - Adult Goal: Free from fall injury Outcome: Progressing Problem: Chronic Conditions and Co-morbidities Goal: Patient's chronic conditions and co-morbidity symptoms are monitored and maintained or improved Outcome: Progressing Normal [facility] BASIC METABOLIC PANELon 04-3 Anion gap [Moles/Vol] 12 mmol/L Normal 7-20 [facility] Comment on above: Performed By: #### L AB15 #### [facility] [address] [place] [address] Calcium [Mass/Vol] 8.4 mg/dL Low 8.6-10.3 [facility] Comment on above: Performed By: #### L AB15 #### [facility] ([facility]) [address] [place] [address] Chloride [Moles/Vol] 102 mmol/L Normal 98-107 [facility] Comment on above: Performed By: #### L AB15 #### [facility]) [address] [place] [address] CO2 [Moles/Vol] 24 mmol/L Normal 21-31 [facility] Comment on above: Performed By: #### L [id number] #### [facility] ([facility]) [address] [place] [address] Creatinine [Mass/Vol] 0.94 mg/dL Normal 0.70-1.30 [facility] Comment on above: Performed By: #### L AB15 #### [facility] ([facility]) [address] [place] [address] GLOMERULAR FILTRATION RATE ML/MIN/1.73 SQ M.PREDICTED 84.5 mL/min/1.73m*2 Normal >60.0 [facility] Comment on above: Result Comment: [facility]???s estimated glomerular filtration rate (eGFR) will no longer include consideration of race in its calculation. The National Kidney Foundation???s eGFR Task Force developed new recommendations for the estimation of the glomerular filtration rate in the [place] They recommend immediate implementation of the new equation refit without the race variable in all laboratories because the calculation does not include race. In addition to not including race in the calculation and reporting, it included diversity in its development, and has acceptable performance characteristics and potential consequences that do not disproportionately affect any one group of individuals. Performed By: #### L AB15 #### [facility] ([facility]) [address] [place] [address] Glucose [Mass/Vol] 266 mg/dL High 70-100 [facility] Comment on above: Performed By: #### L AB15 #### [facility] ([facility]) [address] [place] [address] Potassium [Moles/Vol] 4.9 mmol/L Normal 3.5-5.1 [facility] Comment on above: Performed By: #### L AB15 #### [facility] ([facility]) [address] [place] [address] Sodium [Moles/Vol] 133 mmol/L Low 136-145 [facility] Comment on above: Performed By: #### L AB15 #### [facility] ([facility]) [address] [place] [address] Urea nitrogen [Mass/Vol] 17 mg/dL Normal 7-25 [facility] Comment on above: Performed By: #### L [id number] #### [facility] ([facility]) [address] [place] [address] UREA NITROGEN/CREATININE (MASS RATIO) IN SER/PLAS 18.1 Normal [facility] Comment on above: Performed By: #### L [id number] #### [facility] ([facility]) [address] [place] [address] CBCon 09-11-2023 Erythrocyte distribution width (RBC) [Ratio] 12.2 % Normal 11.5-15.0 [facility] Comment on above: Performed By: #### L [id number] #### [facility] ([facility]) [address] [place] [address] ERYTHROCYTE MEAN CORPUSCULAR HEMOGLOBIN CONCENTRATION (G/DL) BY AUTOMATED 33.4 g/dL Normal 32.0-35.0 [facility] Comment on above: Performed By: #### L [id number] #### [facility] ([facility]) [address] [place] [address] Hematocrit (Bld) [Volume fraction] 30.2 % Low 39.0-55.0 [facility] Comment on above: Performed By: #### L [id number] #### [facility] ([facility]) [address] [place] [address] Hemoglobin (Bld) [Mass/Vol] 10.1 g/dL Low 13.0-17.0 [facility] Comment on above: Performed By: #### L [id number] #### [facility] ([facility]) [address] [place] [address] MCH (RBC) [Entitic mass] 30.8 pg Normal 27.0-33.0 [facility] Comment on above: Performed By: #### L [id number] #### [facility] ([facility]) [address] [place] [address] MCV (RBC) [Entitic vol] 92.1 fL Normal 82.0-98.0 [facility] Comment on above: Performed By: #### L [id number] #### [facility]) [address] [place] [address] PLATELETS (10*3/UL) IN BLOOD AUTOMATED COUNT 159 10*3/uL Normal 150-400 [facility] Comment on above: Performed By: #### L [id number] #### [facility] ([facility]) [address] [place] [address] RBC (Bld) [#/Vol] 3.28 10*6/uL Low 4.20-5.70 [facility] Comment on above: Performed By: #### L [id number] #### [facility] ([facility]) [address] [place] [address] WBC (Bld) [#/Vol] 8.22 10*3/uL Normal 4.00-10.60 [facility] Comment on above: Performed By: #### L [id number] #### [facility] ([facility]) [address] [place] [address] HISTOLOGY - TISSUE EXAMon LAB AP CASE REPORT Normal [facility] Comment on above: Order Comment: Pre-o p diagnosis:Severe claudication (CMS/HCC) [I73.9]Encounter for pre-operative examination [Z01.818]Critical limb ischemia of right lower extremity with rest pain (CMS/HCC) [I70.221] Result Comment: Surg ical Pathology Case: [id number] Authorizing Provider: Anthony Shrestha MD Collected: 09/10/2023 7301 Ordering Location: [facility] Main Operating Room Received: 09/10/2023 1840 Pathologist: Kelsey De Souza MD Specimen: PLAQUE- RIGHT COMMON FEMORAL ARTERY Performed By: #### L [id number] ####[facility] ([facility])[address] [place] [address] LAB AP CLINICAL INFORMATION Normal [facility] Comment on above: Order Comment: Pre-o p diagnosis:Severe claudication (CMS/HCC) [I73.9]Encounter for pre-operative examination [Z01.818]Critical limb ischemia of right lower extremity with rest pain (CMS/HCC) [I70.221] Result Comment: Post -Op Diagnoses I73.9 - Severe claudication (CMS/HCC) [ICD-10-CM] Z01.818 - Encounter for pre-operative examination [ICD-10-CM] I70.221 - Critical limb ischemia of right lower extremity with rest pain (CMS/HCC) [ICD-10-CM] Performed By: #### L [id number] ####[facility] ([facility])[address] [place] [address] LAB AP GROSS DESCRIPTION [facility] Comment on above: Order Comment: Pre-o p diagnosis:Severe claudication (CMS/HCC) [I73.9]Encounter for pre-operative examination [Z01.818]Critical limb ischemia of right lower extremity with rest pain (CMS/HCC) [I70.221] Result Comment: Rece ived in formalin, labeled with the patient's name Marilu Dan and plaque-right common femoral artery, are 8 lynn-yellow to white, rubbery soft tissue fragments, ranging from 0.6 x 0.5 x 0.4 cm to 3.1 x 1.0 x 0.6 cm. Sectioning reveals lynn-yellow, calcified cut surfaces. Certified Orthotist Practice Manager sections are submitted in 1 cassette, following decalcification. Qing Alejandro, Pathologists' Real Time Operator Student Curtis Farias, Pathologists' Real Time Operator Performed By: #### L [id number] ####[facility] ([facility])[address] [place] [address] LAB AP MICROSCOPIC DESCRIPTION Microscopic examination performed. [facility] Comment on above: Order Comment: Pre-o p diagnosis:Severe claudication (CMS/HCC) [I73.9]Encounter for pre-operative examination [Z01.818]Critical limb ischemia of right lower extremity with rest pain (CMS/HCC) [I70.221] Performed By: #### L [id number] ####[facility] ([facility])[address] [place] [address] LAB AP REPORT FINAL DIAGNOSIS NARRATIVE [facility] Comment on above: Order Comment: Pre-o p diagnosis:Severe claudication (CMS/HCC) [I73.9]Encounter for pre-operative examination [Z01.818]Critical limb ischemia of right lower extremity with rest pain (CMS/HCC) [I70.221] Result Comment: Righ t common femoral artery, endarterectomy: Atheromatous plaque with calcification. Performed By: #### L [id number] ####[facility] ([facility])[address] [place] [address] HPon 09-10-2023 History Of Present Illness Marilu Dan is a 73 y.o. White male with multiple comorbidities including CAD s/p CABG, aortic valve stenosis s/p TAVR, Hx of DVT currently on Xarelto, former smoker (quit 30+ years ago), HTN, hyperlipidemia. Patient follows up closely with Cardiology team, he recently started experiencing claudication in the RLE when walking short distances (from calf all the way up to hip on the right side) which has been impairing ADLs. He got ABIs done 07/30/23 that showed Significant right inflow disease with severe hemodynamic impairment of the right lower extremity at rest (Right TBI 0.18, left TBI 0.57). Cardiology team performed LE angiogram on 08/22/23 and showed significant disease in the CAKE PRESS OPERATOR, SFA and profunda arteries on the right side. We evaluated patient same day of angiogram prior to discharge and discussed intervention (right CAKE PRESS OPERATOR, SFA and profunda thromboendarterectomy). Patient presents today for elective intervention. Denies any new complaints. Last time he took Xarelto was on Sunday09/07/23. Agreeable to proceeding with surgery, informed consent obtained. Past Medical History He has a past medical history of Anxiety, Aortic valve stenosis, Arteriosclerotic heart disease (ASHD), Closed fracture of shaft of tibia, COPD (chronic obstructive pulmonary disease) (CMS/HCC), Coronary arteriosclerosis, Coronary artery disease, Critical limb ischemia of right lower extremity with rest pain (CMS/HCC), Deep vein thrombosis (CMS/HCC), Depression, Diabetes (CMS/HCC), DVT (deep venous thrombosis) (CMS/HCC), Emphysema lung (CMS/HCC), Heart murmur, Hyperlipidemia, Hypertension, Myocardial infarction (CMS/HCC), NSTEMI (non-ST elevated myocardial infarction) (CMS/HCC), PAD (peripheral artery disease) (CMS/HCC), Peripheral vascular disease (CMS/HCC), Pulmonary embolism (CMS/HCC), Seizures (CMS/HCC), Severe claudication (CMS/HCC), Skin cancer, Skin problem, and Venous insufficiency. Surgical History He has a past surgical history that includes CTA Abdomen Pelvis W IV Contrast (06/24/2019); CTA Chest W IV Contrast (07/11/2019); Coronary artery bypass graft (09/14/2014); Cardiac catheterization (Bilateral, 06/05/2019); Cardiac catheterization (03/02/2016); Aortic valve replacement (10/2019); Invasive Vascular Procedure (Bilateral, 08/21/2023); Cardiac catheterization (Left, 03/17/2022); Cataract extraction (Left, 09/19/2021); and Leg Surgery (Left). Social History He reports that he quit smoking about 43 years ago. His smoking use included cigarettes. He has never used smokeless tobacco. He reports that he does not currently use alcohol. He reports that he does not currently use drugs. Family History Family History Problem Relation Name Age of Onset Diabetes Mother Heart attack Mother Diabetes Father Heart attack Father Breast cancer Sister Colon cancer Brother Cervical cancer Child Allergies Penicillins, Erythromycin, Erythromycin base, Sulfamethoxazole-trimetho prim, and Doxycycline Medications Medications Prior to Admission Medication Sig Dispense Refill Last Dose amLODIPine (Norvasc) 10 mg tablet Take 1 tablet (10 mg) by mouth once daily as directed. 90 tablet 3 dutasteride (Avodart) 0.5 mg capsule Take 0.5 mg by mouth in the morning. isosorbide mononitrate ER (Imdur) 60 mg 24 hr tablet Take 1 tablet (60 mg) by mouth in the morning. 90 tablet 3 lisinopril 20 mg tablet TAKE 1 TABLET BY MOUTH ONCE A DAY 90 tablet 3 metFORMIN XR (Glucophage-XR) 500 mg 24 hr tablet Take 1,000 mg by mouth in the morning and at bedtime. metoprolol tartrate (Lopressor) 50 mg tablet Take 1 tablet (50 mg) by mouth in the morning and at bedtime. 180 tablet 3 simvastatin (Zocor) 40 mg tablet Take 1 tablet (40 mg) by mouth at bedtime. 90 tablet 3 SITagliptin phosphate (Januvia) 100 mg tablet Take 100 mg by mouth in the morning. spironolactone (Aldactone) 25 mg tablet TAKE 1/2 TABLET BY MOUTH IN THE MORNING 45 tablet 3 tamsulosin (Flomax) 0.4 mg 24 hr capsule Take 0.4 mg by mouth in the morning and at bedtime. Xarelto 20 mg tablet TAKE 1 TABLET BY MOUTH WITH EVENING MEAL. TAKEWITH FOOD. 90 tablet 3 Review of Systems Constitutional: Negative for chills, diaphoresis and fatigue. HENT: Negative for mouth sores, nosebleeds and postnasal drip. Respiratory: Negative for cough, shortness of breath and stridor. Cardiovascular: Negative for chest pain, palpitations and leg swelling. Gastrointestinal: Negative for blood in stool, constipation and diarrhea. Endocrine: Negative for cold intolerance, heat intolerance and polydipsia. Genitourinary: Negative for genital sores, hematuria and penile discharge. Musculoskeletal: Positive for gait problem (claudication RLE). Negative for back pain and joint swelling. Allergic/Immunologic: Negative for environmental allergies and food allergies. Neurological: Negative for seizures, speech difficulty and numbness. Hematological: (more content not included)... Normal [facility] MRSA/MSSA DNA NASALon 2023 MRSA DNA Negative Normal Negative [facility] Comment on above: Order Comment: Testi ng methodology is an automated qualitative in vitro diagnostic test for the directdetection and differentiation of Staphylococcus aureus (SA) DNA and methicillin-resistant Staphylococcus aureus (MRSA) DNA from nasal swabs in patients at risk for nasal colonization. The test utilizes real-time polymerase chain reaction (PCR) for the amplification of MRSA/SA DNA and fluorogenic target-specific hybridization probes for the detection of the amplified DNA. A negative result does not preclude nasal colonization. Performed By: #### L [id number] ####[facility] ([facility])[address] [place] [address] MSSA DNA Negative Normal Negative [facility] Comment on above: Order Comment: Testi ng methodology is an automated qualitative in vitro diagnostic test for the directdetection and differentiation of Staphylococcus aureus (SA) DNA and methicillin-resistant Staphylococcus aureus (MRSA) DNA from nasal swabs in patients at risk for nasal colonization. The test utilizes real-time polymerase chain reaction (PCR) for the amplification of MRSA/SA DNA and fluorogenic target-specific hybridization probes for the detection of the amplified DNA. A negative result does not preclude nasal colonization. Performed By: #### L [id number] ####[facility] ([facility])[address] [place] [address] OPNOTEon 09-10-2023 OPNOTE Common Femoral Arter y, Superficial Femoral Artery, Profunda Femoral Artery Thromboendartectomy (R), PATCH ANGIOPLASTY (R) Operative Note Date: 09/10/2023 Location: [facility] OR Name: Marilu Dan, : 1950, Diagnosis Pre-op Diagnosis * Severe claudication (CMS/HCC) [I73.9] * Encounter for pre-operative examination [Z01.818] * Critical limb ischemia of right lower extremity with rest pain (CMS/HCC) [I70.221] Post-op Diagnosis * Severe claudication (CMS/HCC) [I73.9] * Encounter for pre-operative examination [Z01.818] * Critical limb ischemia of right lower extremity with rest pain (CMS/HCC) [I70.221] Procedures Common Femoral Artery, Superficial Femoral Artery, Profunda Femoral Artery Thromboendartectomy 59905 - [place] OFFICE/OUTPT VISIT,PROCEDURE ONLY PATCH ANGIOPLASTY Surgeons * Anthony Shrestha - Primary Resident: Denisa Colon MD PGY5 Gene Alfredo MD PGY2 Procedure Summary Anesthesia: General ASA: III Estimated Blood Loss: 150 mL Total IV Fluids: 1700 mL Drains: Urethral Catheter Double-lumen;Non-latex 16 Fr. (Active) Specimens ID Source Type Tests Collected By Collected At Frozen? Priority Lab ID A Other Tissue HISTOLOGY - TISSUE EXAM Anthony Shrestha MD 09/10/23 2346 Description: PLAQUE- RIGHT COMMON FEMORAL ARTERY Implants Type Name Action Serial No. [id number] - GUARD REPAIR PATCH, 8 CM X 14 CM, Implanted Staff: Administrative Volunteer: Catalina Krishna; Al Smith RN Scrub Person: Qing Samuel CST Tile Finisher: Larry Rivera CSA Indications: Marilu Dan is an 73 y.o. male who is having surgery for Severe claudication (CMS/HCC) [I73.9] Encounter for pre-operative examination [Z01.818] Critical limb ischemia of right lower extremity with rest pain (CMS/[facility]) [I70.221]. Procedure Details: The patient was seen in the preoperative area. The risks, benefits, complications, treatment options, non-operative alternatives, expected recovery and outcomes were discussed with the patient. The possibilities of reaction to medication, pulmonary aspiration, injury to surrounding structures, bleeding, recurrent infection, the need for additional procedures, failure to diagnose a condition, and creating a complication requiring transfusion or operation were discussed with the patient. The patient concurred with the proposed plan, giving informed consent. The site of surgery was properly noted/marked if necessary per policy. The patient has been actively warmed in preoperative area. Preoperative antibiotics have been ordered and given within 1 hours of incision. Venous thrombosis prophylaxis has not been ordered but patient will be anticoagulated during surgery. Findings: significant plaque within the common femoral, superficial femoral, and profunda femoris arteries. Complications: None; patient tolerated the procedure well. Disposition: PACU - hemodynamically stable. Condition: stable PROCEDURE: Patient was brought back to the operative suite and placed in the supine position. A time out was completed confirming identification of proper patient, position, and procedure to be preformed. General anesthesia was induced and the groin was clipped. The patient was then prepped and draped in normal sterile fashion. Preoperative antibiotic of was administered. A vertical groin incision was made with scalpel on the right side: the dermis and subcutaneous tissues were incised using electrocautery. Dissection was guided using direct palpation of the femoral artery. Bridging veins and lymphatics were ligated using vascular clips as encountered. The femoral sheaths were encountered and incised and the right CAKE PRESS OPERATOR was identified. Self-retaining retractors were applied to aid in exposure. Dissection was carried from the level of the inguinal ligament proximally and distal to the SFA/PFA bifurcation distally. The right common femoral artery was identified and circumferentially dissected. The common femoral artery was noted to be very calcified with minimal pulsation noted on direct palpation of artery however there was soft area near the inguinal ligament. Distal and proximal control as well as control of profunda branch obtained via vessel loops. Pt was given systemic heparin that was allowed to circulate. The CAKE PRESS OPERATOR was clamped with a louise clamp and the PFA/SFA and branches were controlled with yasergil clamps. A longitudinal arteriotomy was created along the common femoral artery with #11 blade scalpel and extended onto the SFA and the PFA to healthier part of the artery via Gardner scissors. Endarterectomy completed via [place] elevator with removal of significant amount of plaque. Plaque was sent to pathology as gross specimen. All small pieces of plaque tissue were removed form the endarterectomy site. Copious irrigation with heparinized saline was used to clean the site. Patch angioplasty was then completed using bovine pericardium patch. We created a bif (more content not included)... Normal [facility] OPNOTE Common Femoral Arter y, Superficial Femoral Artery, Profunda Femoral Artery Thromboendartectomy (R), PATCH ANGIOPLASTY (R) Operative Note Date: 09/10/2023 Location: [facility] OR Name: Marilu Dan, : 1950, Diagnosis Pre-op Diagnosis * Severe claudication (CMS/HCC) [I73.9] * Encounter for pre-operative examination [Z01.818] * Critical limb ischemia of right lower extremity with rest pain (CMS/HCC) [I70.221] Post-op Diagnosis * Severe claudication (CMS/HCC) [I73.9] * Encounter for pre-operative examination [Z01.818] * Critical limb ischemia of right lower extremity with rest pain (CMS/HCC) [I70.221] Procedures Common Femoral Artery, Superficial Femoral Artery, Profunda Femoral Artery Thromboendartectomy 12777 - [place] OFFICE/OUTPT VISIT,PROCEDURE ONLY PATCH ANGIOPLASTY Surgeons * Anthony Shrestha - Primary Procedure Summary Anesthesia: General ASA: III Estimated Blood Loss: 150 mL Total IV Fluids: mL Drains: Urethral Catheter Double-lumen;Non-latex 16 Fr. (Active) Specimens ID Source Type Tests Collected By Collected At Frozen? Priority Lab ID A Other Tissue HISTOLOGY - TISSUE EXAM Anthony Shrestha MD 09/10/23 2595 Description: PLAQUE- RIGHT COMMON FEMORAL ARTERY Implants Type Name Action Serial No. [id number] - GUARD REPAIR PATCH, 8 CM X 14 CM, Implanted Staff: Administrative Volunteer: Catalina Krishna; Al Smith RN Scrub Person: Qing Samuel CST Tile Finisher: Larry Rivera CSA Indications: Marilu Dan is an 73 y.o. male who is having surgery for Severe claudication (CMS/HCC) [I73.9] Encounter for pre-operative examination [Z01.818] Critical limb ischemia of right lower extremity with rest pain ([facility]) [I70.221]. Patient has ulcer in the left heel area Procedure Details: The patient was seen in the preoperative area. The risks, benefits, complications, treatment options, non-operative alternatives, expected recovery and outcomes were discussed with the patient. The possibilities of reaction to medication, pulmonary aspiration, injury to surrounding structures, bleeding, recurrent infection, the need for additional procedures, failure to diagnose a condition, and creating a complication requiring transfusion or operation were discussed with the patient. The patient concurred with the proposed plan, giving informed consent. The site of surgery was properly noted/marked if necessary per policy. The patient has been actively warmed in preoperative area. Preoperative antibiotics have been ordered and given within 1 hours of incision. Venous thrombosis prophylaxis are not indicated. Patient put in a supine position. Incision was made in the right groin deepened down to subcutaneous tissue dissection was done the lateral of the lymphatic tissue until identified the superficial femoral artery vein, femoral artery and profunda femoris artery. Of note here there were significant adhesions in the area. After that Vesseloops applied around the common femoral artery and superficial femoral artery. Then after that dissection was done over the profunda femoris artery which was dissected for the third bifurcation's. Vesseloops applied around the artery. After that heparin was given to the patient. Then a small incision was made in the superficial femoral artery extending into the common femoral artery and then into the profunda femoris artery. Thromboendarterectomy was removed which was showing calcified the plaque that occluded the arteries in that area. This was done until the plaque was removed distally from the superficial femoral artery which was tapered and did not need tacking. In addition the common femoral artery was also treated with endarterectomy the same as the profunda femoris artery. After that the bovine patch was applied over the common femoral artery profunda and superficial femoral artery in the bifurcated fashion and sutured in position with 6-0 Prolene. Before completing the anastomosis irrigation of the lumen was done and backbleeding from the profunda femoris artery and superficial femoral artery were allowed and forward to bleeding from the common femoral artery was allowed and then irrigation was done and the anastomosis completed followed by allowing the blood to flow into the profunda and superficial femoral artery. Doppler flow in both arteries was satisfactory. There was a good Doppler flow in the dorsalis pedis and posterior tibial arteries also. After that the wound was irrigated hemostasis secured the fibrofatty tissue was attached to the fascia then subcutaneous tissue closed with 2-0 Vicryl and the skin was then closed subcuticularly. Blood loss was less than 100 mL. Patient tolerated procedure well with no complication. Patient recovered from anesthesia and taken to recovery room. Findings: Calcified common femoral , superficial femoral and profunda femoris Complications: None; patient tolerated the procedure well. Dispos (more content not included)... Normal [facility] POCT GLUCOSE METER UNSOLICIT ED RESULTSon 09-10-2023 Glucose [Mass/Vol] 177 mg/dL High 70-105 [facility] Comment on above: Order Comment: Waive d Testing in the ED is performed under the ED CLIA certificate #[id number]. Result Comment: aepp ink Performed By: #### L [id number] ####[facility] ([facility])[address] [place] [address] TYPE AND SCREENon 09-10-2023 AB SCREEN Negative Normal [facility] Comment on above: Performed By: #### L [id number] #### [facility] BLOOD BANK , ABO group Nom (Bld) A Normal [facility] Comment on above: Performed By: #### L [id number] #### [facility] BLOOD [facility] , RH TYPE IN BLOOD Positive Normal [facility] Comment on above: Performed By: #### L [id number] #### [facility] BLOOD [facility] , [id number] 09-03-2023 [id number] Nothing to Eat or Dr ink, including Candy, Gum, Mints, and Tobacco after Midnight the night before surgery. Take AMLODIPINE, ISOSORBIDE, AND METOPROLOL with a sip of water the day of surgery. Hold XARELTO 2 DAYS and LISINOPRIL and METFORMIN 24 hours prior to surgery. Hold all other meds the morning of surgery. IF YOU ARE GOING HOME AFTER YOUR SURGERY OR PROCEDURE, FOR YOUR SAFETY, YOUR SURGERY WILL BE CANCELLED IF BOTH OF THE FOLLOWING ARE NOT AVAILABLE: An adult freight delivery driver over the age of 18, that can receive information about your care after surgery, and drive you home. A responsible adult to stay with you for 24 hours in case of an emergency. Can be same as above. The highest risk of complications is within the first 24 hours after sedation/anesthesia. Nothing to eat or drink after midnight the night before surgery. This includes gum, candy, mints, and lozenges. No alcohol, marijuana, or tobacco products including vaping for 24 hours. Please brush your teeth; don't swallow the toothpaste or water. If you use dentures, wear them but do not use paste. Please leave any other removable dental hardware at home. Do not put in contact lenses. Do not wear perfume, make-up, nail spanish, or lotions on the day of your surgery or procedure. Follow skin-prep/wipe instructions as below if required. Bring with you: *Insurance card *Photo ID *Medication list *Co-pay for visit/prescriptions If applicable: *Rescue inhalers *Green bracelet from lab *CPAP or BiPAP machine, if staying overnight *Any braces, splints, or equipment ordered preoperatively *Remote controls for implanted devices Leave at home: *Purse/Wallet/Marquez- unless needed for co-pay *Cell phone (can leave with family/friend or place in locker if needed) *Jewelry (including piercings and wedding bands) *If not possible, ask the person who is waiting with you to keep them Children under the age of 12 will not be allowed into patient care areas. We will call you between 3pm and 4pm the day before your surgery to give you an arrival time. If you do not receive this call, have any questions, or need to make any changes, please call [phone]. Notify your surgeon if you develop any illness such as a cold, cough, fever, sore throat or vomiting between now and your surgery. Thank you for entrusting us with your care. [facility] Surgical Services Team Normal [facility] Orders Onlyon 08-22-2023 Orders Only [id number] Bora Dan 1950 M Date Provider Department Center 08/22/2023 [place] [place] [facility] Family History Problem Relation Age of Onset Diabetes Mother Heart attack Mother Diabetes Father Heart attack Father Breast cancer Sister Colon cancer Brother Cervical cancer Child Family Status - Relation Status Age at Mother Father Sister Brother Child Alive [facility] HPon 08-21-2023 H&P reviewed. The galen serrano was examined and there are no changes to the H&P. [facility] NURSNOTEon 08-21-2023 NURSNOTE RN educated pt on d/ c instructions. RN encouraged pt to voice any questions or concerns. Pt verbalizes no questions or concerns at this time. [facility] Cardiology - [facility] Subjective Marilu Dan is a 73 y.o. 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 Duplex of upper extremity 06/17/2018 showed SVT [...] last visit he was diagnosed with left upper extremity DVT and the this was recurrent and therefore he is on lifelong Xare (more content not included)... Normal [facility] Office Visiton 08-17-2023 Follow-up visit [id number] Bora Dan gissel 1950 M Date Provider Department Center 08/17/2023 YosiBLAS OSPINA [facility] [place] [facility] Family History Problem Relation Age of Onset Diabetes Mother Heart attack Mother Diabetes Father Heart attack Father Breast cancer Sister Colon cancer Brother Cervical cancer Child Family Status - Relation Status Age at Mother Father Sister Brother Child Alive Level of Service:85398 [place] OFFICE/OUTPATIENT ESTABLISHED HIGH MDM 40 MIN Reason for Visit and Comments: Follow-up [127505] [facility] Ambulatory Visit Summaryon 0 06-25-2023 Ambulatory Visit Summary SY STARRMARILU :1950 Visit Date:06/25/2023 Ambulatory Visit Instructions Your Diagnosis Hydrocele ED (erectile dysfunction) 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 Document Revised: 04/05/2020 Document Reviewed: 04/05/2020 [employer] Patient Education ? 2022 [employer]. [facility] Urology Office/Clinic Noteon 06-25-2023 Urology Office/Clinic Note [...] to 16-30 Fr). [2] 6. Anticoagulated (Z79.01: 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) On Xarelto. Had aortic valve replacement. Elevated risk for periop complications in the future. [3] Follow-up With When Contact Information NICOLE DIAZ, Cristo Frances, URL [facility] [address], [place] [phone] Additional Instructions: has f/u scheduled 11/19/23 Patient Education Testicular Self-Exam Opal Null, personally scribed for Dr. Rivera on 06/25/2023 10:02:39. . Documentation recorded by the Candie varelaa Kessler, accurately reflects the services(s) I performed and decisions made by me. Authenticated by Dr. Rivera on 06/25/2023 10:05:22. Probl (more content not included)... Normal [facility] Comment on above: Result Comment: Elec tronically Signed By: Cristo RIVERA MD\.br\Date and Time Signed: 06/25/23 10:05 EST\.br\Electronically Co-Signed By: Opal Kessler\.br\Date and Time Co-Signed: 06/25/23 10:03 EST Office Visiton 06-15-2023 Follow-up visit [id number] SyBora chauhan 1950 M Date Provider Department Center 06/15/2023 BLAS MCDANIEL RAVI [place] [facility] Family History Problem Relation Age of Onset Diabetes Mother Heart attack Mother Diabetes Father Heart attack Father Breast cancer Sister Colon cancer Brother Cervical cancer Child Family Status - Relation Status Age at Mother Father Sister Brother Child Alive Level of Service:17344 [place] OFFICE/OUTPATIENT ESTABLISHED LOW MDM 20 MIN Normal [facility] Ambulatory Visit Summaryon 0 05-28-2023 Ambulatory Visit Summary MARILU DAN SR :1950 Visit Date:05/28/2023 Ambulatory Visit Instructions Your Diagnosis History of prostatitis BPH with obstruction/lower urinary tract symptoms Urethral stricture in male Anticoagulated Your Care Team Attending Physician - Cristo [...] DIAZ, Cristo Frances Where: [facility] Patient Educationon 05-28-19 Patient Education Urology Benign Prostatic Hyperplasia Benign [...] Follow these instructions at home: ? Take imbo-gbw-msgzbtq and prescription medicines only as told by [...] the medicine (more content not included)... Normal [facility] Urology Office/Clinic Noteon 05-28-2023 Urology Office/Clinic [...] repeat UD is needed. 4. Anticoagulated (Z79.01: 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) On Xarelto. Had aortic valve replacement. Elevated risk for periop complications in the future. Follow-up With When Contact Information Cristo RIVERA MD, GLORIA In 6 months [facility] [address], [place] [phone] Additional Instructions: Patient Education Benign Prostatic Hyperplasia [...] Tab Ja (more content not included)... Normal [facility] Comment on above: Result Comment: Elec tronically Signed By: Cristo RIVERA MD\.br\Date and Time Signed: 05/28/23 09:34 EST\.br\Electronically Co-Signed By: Opal Kessler\.br\Date and Time Co-Signed: 05/28/23 09:31 EST Ambulatory Visit Summaryon 1 Ambulatory Visit Summary MARILU DAN SR :1950 Visit Date:02/26/2023 Ambulatory Visit Instructions Your Diagnosis Urethral stricture in male BPH with obstruction/lower urinary tract symptoms Prostatitis Anticoagulated Tests Performed Urnls Dip Stick Auto w/o Microscopy POC [id number] Your Care Team Attending Physician - Cristo [...] DIAZ, Cristo Frances Where: [facility] Patient Educationon 02-27-20 23 Patient Education Urology Benign Prostatic Hyperplasia Benign [...] Follow these instructions at home: ? Take ctnf-atk-tedmnnu and prescription medicines only as told by [...] the medicine (more content not included)... Normal [facility] Urology Office/Clinic Noteon 02-26-2023 Urology Office/Clinic [...] and the office notified. 4. Anticoagulated (Z79.01: [facility] (current) use of 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) On Xarelto. Follow-up With When Contact Information NICOLE DIAZ, GLORIA Gupta In 3 months [facility] [address] [place] [address]- Additional Instructions: w/PVR Patient Education Benign Prostatic [...] Hyperlipidemia Hypertensio (more content not included)... Normal [facility] Comment on above: Result Comment: Elec tronically Signed By: Cristo RIVERA MD\.br\Date and Time Signed: 02/26/23 10:22 EDT\.br\Electronically Co-Signed By: Kendra Mann\.br\Date and Time Co-Signed: 02/26/23 10:19 EDT Office Visiton 12-13-2022 Follow-up visit [id number] Bora Dan ry 1950 M Date Provider Department Center 12/13/2022 BLAS MCDANIEL RAVI [place] Family History Problem Relation Age of Onset Diabetes Mother Heart attack Mother Diabetes Father Heart attack Father Breast cancer Sister Colon cancer Brother Cervical cancer Child Family Status - Relation Status Age at Mother Father Sister Brother Child Alive Level of Service:85270 [place] OFFICE/OUTPATIENT ESTABLISHED MOD MDM 30-39 MIN Normal [facility] Patient Educationon 11-28-19 23 Patient Education Urology Benign Prostatic Hyperplasia Benign [...] Follow these instructions at home: ? Take fudm-gqs-okbbygw and prescription medicines only as told by [...] the medicine (more content not included)... Normal [facility] Urology Office/Clinic Noteon 11-27-2022 Urology Office/Clinic [...] prior. Pt acknowledges understanding. 4. Anticoagulated (Z79.01: [facility] (current) use of 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) On Xarelto. Follow-up With When Contact Information NICOLE DIAZ, Cristo Frances, URL [facility] [address] [place] [phone] Additional Instructions: 3 mos Patient Education Benign Prostatic Hyperplasia IOpal, personally scribed for Dr. Rivera on 11/27/2022 10:20:34. . Documentation recorded by the ayaanibOpal daley, [...] isosorbide mononitra (more content not included)... Normal [facility] Comment on above: Result Comment: Elec tronically Signed By: Cristo RIVERA MD\.br\Date and Time Signed: 11/27/22 10:22 EDT\.br\Electronically Co-Signed By: Opal Kessler\.br\Date and Time Co-Signed: 11/27/22 10:20 EDT Consent for Procedure/Surger yon 07-20-2022 Consent for Procedure/Surgery [id number]:1 27 Normal [facility] Patient Educationon 07-19-19 Patient Education Urology Urethral Stricture Urethral stricture [...] Follow these instructions at home: ? Take cqsc-axz-kokowdo and prescription medicines only as told by [...] 05/26/2016 Document Revised: 12/11/2018 Document Reviewed: 12/11/2018 [employer] Patient Education ? 2019 [employer]. [facility] Urology Office/Clinic Noteon 07-18-2022 Urology Office/Clinic Note HPI Staff Marliu is IO for a Cysto/UD. ABX taken. [...] urine The Urethra was dilated to: 16-30_ Belarusian with sounds. Specimens Removed: None Removal: Cystoscope [...] Flomax 0.4 mg QD. 3. Anticoagulated (Z79.01: 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) Xarelto. Follow-up With When Contact Information NICOLE DIAZ, Cristo Frances, URL [facility] [address] , [place] [address]- Additional Instructions: sunday cath change Patient Education Urethral Stricture I, Michelle Watson, personally scribed for Dr. Rivera on 07/18/2022 [...] mg oral tablet Allergies penicillin (Throat tightness, [id number]) sulfa drugs (Vomit) Social History Tobacco Former smoker, quit more than 30 days ago Tobacco Use:. Never Smokeless Tobacco Use:. Cigarettes, Started age 17.0 Years. Stopped age 48 Years., 06/05/2022 Family History Diabetes: Mother. Heart disease: Mother and Father. Immunizations (more content not included)... Normal [facility] Comment on above: Result Comment: Elec tronically Signed By: Cristo RIVERA MD\.br\Date and Time Signed: 07/18/22 13:41 EST\.br\Electronically Co-Signed By: Michelle Watson\.br\Date and Time Co-Signed: 07/18/22 13:40 EST Redraw Potassiumon 3 Potassium [Moles/Vol] 5.2 mmol/L High 3.5-5.1 [facility] Comment on above: Result Comment: PERF ORMED BY: [place] [address] PATHOLOGIST GLOBAL SALES DIRECTOR HYACINTH SHAH M.D. Performed By: #### R JOCELYNN Kraus #### [facility] [address] [place], [place] [id number] [facility] US venous duplex LE RTon US venous duplex LE RT [facility] [place] [address] [place] [address] Ultrasound Report Signed Patient: Marilu Dan MR#: [id number] 019 : 1950 Acct:[id number] Age/Sex: 72 / M ADM Date: 07/11/22 Loc: Room: Type: [facility] Attending Dr: Mary Beth Pitts MD Ordering [...] Mahendra Escalante MD07/12/2022 4:46 PM Dictation Location: [place] [address] Tech: Genesis Wooten Transcribed By: ABIMBOLA 07/12/22 164 Dictated By: Mahendra Escalante MD 07/12/22 164 Signed By: 07/12/22 1646 Normal [facility] Basic Metabolic Panelon 02- Anion gap [Moles/Vol] Not performed Normal 6.0-15.0 [facility] Comment on above: Performed By: #### C UU #### [address] Calcium [Mass/Vol] 9.2 mg/dL Normal 8.2-10.2 [facility] Comment on above: Result Comment: PERF ORMED BY: [place] [address] PATHOLOGIST GLOBAL SALES DIRECTOR HYACINTH SHAH M.D. Performed By: #### C UU #### [place] [address] [place] Chloride [Moles/Vol] 102 mmol/L Normal 95-114 [facility] Comment on above: Performed By: #### C UU #### [address] CO2 [Moles/Vol] 22.4 mmol/L Normal 22.0-30.0 [facility] Comment on above: Performed By: #### C UU #### [address] Creatinine [Mass/Vol] 0.97 mg/dL Normal 0.64-1.27 [facility] Comment on above: Performed By: #### C UU #### [address] Estimated GFR ( Lilia > 60 [facility] Comment on above: Result Comment: GFR estimated reference range: According to KDOQI guidelines, <60 ml/min/1.73m2 is sufficient to diagnose a patient with chronic kidney disease. Performed By: #### C UU #### [address] Estimated GFR (Non- Am > 60 Normal [facility] Comment on above: Performed By: #### C UU #### [place] [address] [place] Glucose [Mass/Vol] 197 mg/dL High 70-100 [facility] Comment on above: Result Comment: [place] om Glucose Reference Range is dependent on time and content of last meal. Glucose of more than 200 mg/dL in a nonstressed, ambulatory subject supports the diagnosis of Diabetes Mellitus. ADA recommended reference range Performed By: #### C UU #### [facility] [address] [id number] [facility] Potassium Normal 3.5-5.1 [facility] Comment on above: Result Comment: Spec imen hemolyzed, redraw requested Performed By: #### C UU #### [facility] [address] Sodium [Moles/Vol] 131 mmol/L Low 136-146 [facility] Comment on above: Performed By: #### C UU #### [facility] [address] Urea nitrogen [Mass/Vol] 20 mg/dL Normal 9-23 [facility] Comment on above: Performed By: #### C UU #### [facility] [address] Calcium [Mass/volume] in Ser um or PlasmaOrdered By: Blas Ospina on 07-11-2022 Calcium [Mass/Vol] 9.2 mg/dL 8.2-10.2 [facility] Carbon dioxide, total [Moles /volume] in Serum or PlasmaOrdered By: Blas Ospina on 07-11-2022 CO2 [Moles/Vol] 22.4 mmol/L 22.0-30.0 [facility] Chloride [Moles/volume] in S quinten or PlasmaOrdered By: Blas Ospina on 07-11-2022 Chloride [Moles/Vol] 102 mmol/L 95-114 [facility] Creatinine and Glomerular fi ltration rate.predicted panel (S/P/Bld)Ordered By: Blas Ospina on 07-11-2022 Creatinine [Mass/Vol] 0.97 mg/dL 0.64-1.27 [facility] Estimated glomerular filtrat ion rate (GFR) non- AmericanOrdered By: Blas Ospina on 07-11-2022 GFR/1.73 sq M.predicted among non-blacks MDRD (S/P/Bld) [Vol rate/Area] > 60 mL/Min [facility] Glucose [Mass/volume] in Ser um or PlasmaOrdered By: Blas Ospina on 07-11-2022 Glucose [Mass/Vol] 197 mg/dL 70-100 [facility] Comment on above: ADA recommended refe rence rangeRandom Glucose Reference Range is dependent on time and content of last meal. Glucose of more than 200 mg/dL in a nonstressed, ambulatory subject supports the diagnosis of Diabetes Mellitus. No Panel InformationOrdered By: Blas Ospina on 07-11-2022 Estimated GFR () > 60 mL/Min [facility] Comment on above: GFR estimated refere nce range: According to KDOQI guidelines, <60 ml/min/1.73m2 is sufficient to diagnose a patient with chronic kidney disease. Pharmacy Creatinine Clearance (Chem N/A [facility] Potassium [Moles/volume] in Serum or PlasmaOrdered By: Blas Ospina on 07-11-2022 Potassium [Moles/Vol] See comment 3.5-5.1 [facility] Comment on above: Specimen hemolyzed, redraw requested Serum or plasma anion gap de terminationOrdered By: Blas Ospina on 07-11-2022 Anion gap [Moles/Vol] TNP [facility] Comment on above: Test not performed Sodium [Moles/volume] in Ser um or PlasmaOrdered By: Blas Ospina on 07-11-2022 Sodium [Moles/Vol] 131 mmol/L 136-146 [facility] Urea nitrogen [Mass/volume] in Serum or PlasmaOrdered By: Blas Ospina on 07-11-2022 Urea nitrogen [Mass/Vol] 20 mg/dL 02-03 [facility] XR hip RT min 2V(w/wo pelvis )*on 07-11-2022 XR hip RT min 2V(w/wo pelvis)* [facility] [employer] Other XR hip RT min 2V(w/wo pelvis)* [facility] [employer] Other XR hip RT min 2V(w/wo pelvis)* [address] [place] [address] [employer] Other XR hip RT min 2V(w/wo pelvis)* [place] [address] [employer] Other XR hip RT min 2V(w/wo pelvis)* XRay Report [employer] Other XR hip RT min 2V(w/wo pelvis)* Signed [employer] Other XR hip RT min 2V(w/wo pelvis)* Patient: Marilu Dan MR#: [id number] [employer] Other XR hip RT min 2V(w/wo pelvis)* 019 [employer] Other XR hip RT min 2V(w/wo pelvis)* : 1950 Acct:[id number] [employer] Other XR hip RT min 2V(w/wo pelvis)* Age/Sex: 72 / M ADM Date: 07/11/22 [employer] Other XR hip RT min 2V(w/wo pelvis)* Loc: Room: Type: [facility] [employer] Other XR hip RT min 2V(w/wo pelvis)* Attending Dr: Mary Beth Pitts MD [employer] Other XR hip RT min 2V(w/wo pelvis)* Copies to: Mary Beth Pitts MD [employer] Other XR hip RT min 2V(w/wo pelvis)* Ordering Provider: Mary Beth Pitts MD [employer] Other XR hip RT min 2V(w/wo pelvis)* Date of Service: 07/11/22 [employer] Other XR hip RT min 2V(w/wo pelvis)* XR/XR hip RT min 2V(w/wo pelvis)*: M25.551 [employer] Other XR hip RT min 2V(w/wo pelvis)* RIGHT HIP - 2 views: [employer] Other XR hip RT min 2V(w/wo pelvis)* CLINICAL HISTORY: Chronic right hip pain for one year. [employer] Other XR hip RT min 2V(w/wo pelvis)* COMPARISON: None [employer] Other XR hip RT min 2V(w/wo pelvis)* FINDINGS: Mild degenerative changes of the right hip without acute bony process. Additional [employer] Other XR hip RT min 2V(w/wo pelvis)* degenerative changes are seen involving the SI joints and visualized lower lumbar spine. Vascular [employer] Other XR hip RT min 2V(w/wo pelvis)* calcifications. [employer] Other XR hip RT min 2V(w/wo pelvis)* XR/XR hip RT min 2V(w/wo pelvis)* [employer] Other XR hip RT min 2V(w/wo pelvis)* IMPRESSION: [employer] Other XR hip RT min 2V(w/wo pelvis)* MILD DEGENERATIVE CHANGES OF THE RIGHT HIP WITHOUT ACUTE BONY PROCESS.. [employer] Other XR hip RT min 2V(w/wo pelvis)* Impression dictated by: Griffin Tihbodeaux Jr., D.OBrook07/11/2022 11:33 AM [employer] Other XR hip RT min 2V(w/wo pelvis)* Dictation Location: [place] [address] [employer] Other XR hip RT min 2V(w/wo pelvis)* Transcribed By: ABIMBOLA 07/11/22 [facility] [employer] Other XR hip RT min 2V(w/wo pelvis)* Dictated By: Griffin Thibodeaux Jr, DO 07/11/22 [facility]3 [employer] Other XR hip RT min 2V(w/wo pelvis)* Signed By: [employer] Other XR hip RT min 2V(w/wo pelvis)* 07/11/22 1133 [employer] Other XR hip RT min 2V(w/wo pelvis)* [facility] [place] [address] [place] [address] XRay Report Signed Patient: Marilu Dan MR#: [id number] 019 : 1950 Acct:[id number] Age/Sex: 72 / M ADM Date: 07/11/22 Loc: Room: Type: [facility] Attending Dr: Mary Beth Pitts MD Copies [...] PROCESS.. Impression dictated by: Griffin Thibodeaux Jr., DBrookOBrook07/11/2022 11:33 AM Dictation Location: [place] [address] Transcribed By: [facility] 07/11/221132 Dictated By: Griffin Thibodeaux Jr, DO 07/11/221132 Signed By: 07/11/22 1133 Normal [facility] CULTURE URINEon 04-29-2022 CULTURE URINE Culture Observations : NO GROWTH. Normal [facility] Comment on above: Performed By: #### S EDR #### [facility] [address] [place] [address] [address] Julius Greer Basic Metabolic Panelon 11-0 Anion gap [Moles/Vol] 9.6 mmol/L Normal 6.0-15.0 [facility] Comment on above: Performed By: #### B MP #### [address] [address] [place] Calcium [Mass/Vol] 8.2 mg/dL Normal 8.2-10.2 [facility] Comment on above: Performed By: #### B MP #### [facility] [address] Chloride [Moles/Vol] 104 mmol/L Normal 95-114 [facility] Comment on above: Performed By: #### B MP #### [facility] [address] CO2 [Moles/Vol] 27.1 mmol/L Normal 22.0-30.0 [facility] Comment on above: Performed By: #### B MP #### [address] Creatinine [Mass/Vol] 0.75 mg/dL Normal 0.64-1.27 [facility] Comment on above: Performed By: #### B MP #### [address] Creatinine Clr Calc Pharmacy 85.68 [facility] Comment on above: Result Comment: PERF ORMED BY: [place] [address] PATHOLOGIST GLOBAL SALES DIRECTOR HYACINTH SHAH M.D. Performed By: #### B MP #### [address] Estimated GFR ( Lilia > 60 [facility] Comment on above: Result Comment: GFR estimated reference range: According to KDOQI guidelines, <60 ml/min/1.73m2 is sufficient to diagnose a patient with chronic kidney disease. Performed By: #### B MP #### [address] Estimated GFR (Non- Am > 60 [facility] Comment on above: Performed By: #### B MP #### [address] Glucose [Mass/Vol] 203 mg/dL High 70-100 [facility] Comment on above: Result Comment: [place] om Glucose Reference Range is dependent on time and content of last meal. Glucose of more than 200 mg/dL in a nonstressed, ambulatory subject supports the diagnosis of Diabetes Mellitus. ADA recommended reference range Performed By: #### B MP #### [facility] [address] Potassium [Moles/Vol] 3.7 mmol/L Normal 3.5-5.1 [facility] Comment on above: Performed By: #### B MP #### [facility] [address] Sodium [Moles/Vol] 137 mmol/L Normal 136-146 [facility] Comment on above: Performed By: #### B MP #### [facility] [address] Urea nitrogen [Mass/Vol] 11 mg/dL Normal 9-23 [facility] Comment on above: Performed By: #### B MP #### [facility] [address] Basophils Auto (Bld) [#/Vol] Ordered By: Neno Mccarthyr on 03-19-2022 Basophils (Bld) [#/Vol] 0.0 10*3/uL 0.0-0.2 [facility] Basophils/100 WBC Auto (Bld) Ordered By: Obsarabjitdarobin Coronadoomar on 03-19-2022 Basophils/100 WBC (Bld) 0.2 % . [facility] CULTURE BLOODon 03-19-2022 Microscopic examination of [...] S F Trimethoprim/Sulfamethoxa zole <=20 S F Normal [facility] Comment on above: Performed By: #### S EDR #### [facility] [address] [place] [address] Dr. Julius Greer Microscopic examination of blood, [...] S F Trimethoprim/Sulfamethoxa zole <=20 S F [facility] Comment on above: Performed By: #### B LDCX2 #### [facility] [address] [place] [address] Dr. Julius Greer CULTURE URINEon 03-19-2022 CULTURE [...] F Trimethoprim/Sulfamethoxa zole <=20 S F Normal [facility] Comment on above: Performed By: #### S EDR #### [facility] [address] [place] [address] [address] Julius Greer Complete Blood Count Auto Di ffon 03-19-2022 Basophils (Bld) [#/Vol] 0.0 10*3/uL Normal 0.0-0.2 [facility] Comment on above: Result Comment: PERF ORMED BY: [place] [address] PATHOLOGIST G[employer]BAL SALES DIRECTOR HYACINTH SHAH M.D. Performed By: #### B MP, MG, LIPID, A1C WTH eA, CBC #### [address] Basophils/100 WBC (Bld) 0.2 % Normal . [facility] Comment on above: Performed By: #### B MP, MG, LIPID, A1C WTH eA, CBC #### [address] Eosinophils (Bld) [#/Vol] 0.0 10*3/uL Normal 0.0-0.45 [facility] Comment on above: Performed By: #### B MP, MG, LIPID, A1C WTH eA, CBC #### [address] Eosinophils/100 WBC (Bld) 1.0 % Normal . [facility] Comment on above: Performed By: #### B MP, MG, LIPID, A1C WTH eA, CBC #### [facility] [address] [place] [address] Erythrocyte distribution width (RBC) [Ratio] 12.8 % Normal 12.0-14.8 [facility] Comment on above: Performed By: #### B MP, MG, LIPID, A1C WTH eA, CBC #### [address] Hematocrit (Bld) [Volume fraction] 35.5 % Low 38.8-50.0 [facility] Comment on above: Performed By: #### B MP, MG, LIPID, A1C WTH eA, CBC #### [address] Hemoglobin (Bld) [Mass/Vol] 12.0 g/dL Low 13.0-17.0 [facility] Comment on above: Performed By: #### B MP, MG, LIPID, A1C WTH eA, CBC #### [facility] [address] Lymphocytes (Bld) [#/Vol] 1.0 10*3/uL Normal 1.00-4.8 [facility] Comment on above: Performed By: #### B MP, MG, LIPID, A1C WTH eA, CBC #### [address] Lymphocytes/100 WBC (Bld) 20.4 % Normal . [facility] Comment on above: Performed By: #### B MP, MG, LIPID, A1C WTH eA, CBC #### [address] MCH (RBC) [Entitic mass] 29.9 pg Normal 27.5-35.2 [facility] Comment on above: Performed By: #### B MP, MG, LIPID, A1C WTH eA, CBC #### [address] MCV (RBC) [Entitic vol] 88.3 fL Normal 83.5-101 [facility] Comment on above: Performed By: #### B MP, MG, LIPID, A1C WTH eA, CBC #### [address] Mean Corpuscular HGB Conc 33.9 g/dL Normal 32.5-35.6 [facility] Comment on above: Performed By: #### B MP, MG, LIPID, A1C WTH eA, CBC #### [address] Monocytes (Bld) [#/Vol] 0.6 10*3/uL Normal 0.0-0.8 [facility] Comment on above: Performed By: #### B MP, MG, LIPID, A1C WTH eA, CBC #### [place] [address] [place] Monocytes/100 WBC (Bld) 12.2 % Normal . [facility] Comment on above: Performed By: #### B MP, MG, LIPID, A1C WTH eA, CBC #### [facility] [address] Neutrophils (Bld) [#/Vol] 3.3 10*3/uL Normal 1.8-7.7 [facility] Comment on above: Performed By: #### B MP, MG, LIPID, A1C WTH eA, CBC #### [facility] [address] Neutrophils/100 WBC (Bld) 66.2 % Normal . [facility] Comment on above: Performed By: #### B MP, MG, LIPID, A1C WTH eA, CBC #### [facility] [address] Nucleated RBC/100 WBC (Bld) [Ratio] 0.1 % Normal 0-0.5 [facility] Comment on above: Performed By: #### B MP, MG, LIPID, A1C WTH eA, CBC #### [facility] [address] Platelet mean volume (Bld) [Entitic vol] 8.3 fL Normal 6.6-10.1 [facility] Comment on above: Performed By: #### B MP, MG, LIPID, A1C WTH eA, CBC #### [facility] [address] [place] [address] [place] Platelets (Bld) [#/Vol] 134 10*3/uL Low 150-450 [facility] Comment on above: Performed By: #### B MP, MG, LIPID, A1C WTH eA, CBC #### [facility] [address] [place] [address] [place] RBC (Bld) [#/Vol] 4.02 10*6/uL Normal 3.90-5.60 [facility] Comment on above: Performed By: #### B MP, MG, LIPID, A1C WTH eA, CBC #### [facility] [address] [place] [address] [place] WBC (Bld) [#/Vol] 4.9 10*3/uL Normal 4.5-11.0 [facility] Comment on above: Performed By: #### B MP, MG, LIPID, A1C WTH eA, CBC #### [facility] [address] Creatinine and Glomerular fi ltration rate.predicted panel (S/P/Bld)Ordered By: Obsarabjitdarobin Coronadoomar on 03-19-2022 Creatinine [Mass/Vol] 0.75 mg/dL 0.64-1.27 [facility] Eosinophils Auto (Bld) [#/Vo l]Ordered By: Obsaarbjitdarobin Coronadoomar on 03-19-2022 Eosinophils (Bld) [#/Vol] 0.0 10*3/uL 0.0-0.45 [facility] Eosinophils/100 WBC Auto (Bl d)Ordered By: Obpaolo Coronadoomar on 03-19-2022 Eosinophils/100 WBC (Bld) 1.0 % . [facility] Erythrocyte distribution wid th Auto (RBC) [Ratio]Ordered By: Neno Coronadoomar on 03-19-2022 Erythrocyte distribution width (RBC) [Ratio] 12.8 % 12.0-14.8 [facility] Estimated glomerular filtrat ion rate (GFR) non- AmericanOrdered By: Neno Coronadoomar on 03-19-2022 GFR/1.73 sq M.predicted among non-blacks MDRD (S/P/Bld) [Vol rate/Area] > 60 mL/Min [facility] Glucose Glucometer (BldC) [M ass/Vol]Ordered By: Obsarabjitdarobin Coronadoomar on 03-19-2022 Glucose [Mass/Vol] 295 mg/dL [facility] Comment on above: Random Glucose Refer ence Range is dependent on time and content of last meal. Glucose of more than 200 mg/dL in a nonstressed, ambulatory subject supports the diagnosis of Diabetes Mellitus. Glucose Poct Glucometerson 1 05-19-2021 Glucose [Mass/Vol] 295 mg/dL Normal [facility] Comment on above: Result Comment: [place] Glucose Reference Range is dependent on time and content of last meal. Glucose of more than 200 mg/dL in a nonstressed, ambulatory subject supports the diagnosis of Diabetes Mellitus. PERFORMED BY: [place] [address] PATHOLOGIST GLOBAL SALES DIRECTOR HYACINTH SHAH M.D. Performed By: #### C UU #### [address] Glucose [Mass/Vol] 184 mg/dL Normal [facility] Comment on above: Result Comment: [facility] Glucose Reference Range is dependent on time and content of last meal. Glucose of more than 200 mg/dL in a nonstressed, ambulatory subject supports the diagnosis of Diabetes Mellitus. PERFORMED BY: [place] [address] PATHOLOGIST GLOBAL SALES DIRECTOR HYACINTH SHAH M.D. Performed By: #### C UU #### [address] Hematocrit Auto (Bld) [Volum e fraction]Ordered By: Neno Moreira on 03-19-2022 Hematocrit (Bld) [Volume fraction] 35.5 % 38.8-50.0 [facility] Hemoglobin [Mass/volume] in BloodOrdered By: Neno Moreira on 03-19-2022 Hemoglobin (Bld) [Mass/Vol] 12.0 g/dL 13.0-17.0 [facility] Laboratory - Hematology and Cell countsOrdered By: Neno Moreira on 03-19-2022 Nucleated RBC/100 WBC (Bld) [Ratio] 0.1 % 0-0.5 [facility] Leukocytes [#/volume] in Blo od by Automated countOrdered By: Neno Moreira on 03-19-2022 WBC (Bld) [#/Vol] 4.9 10*3/uL 4.5-11.0 [facility] Lymphocytes Auto (Bld) [#/Vo l]Ordered By: Neno Mccarthyr on 03-19-2022 Lymphocytes (Bld) [#/Vol] 1.0 10*3/uL 1.00-4.8 [facility] Lymphocytes/100 WBC Auto (Bl d)Ordered By: Obsarabjitdarobin Coronadoomar on 03-19-2022 Lymphocytes/100 WBC (Bld) 20.4 % . [facility] MCH Auto (RBC) [Entitic mass ]Ordered By: Obpaolo Coronadoomar on 03-19-2022 MCH (RBC) [Entitic mass] 29.9 pg 27.5-35.2 [facility] MCHC Auto (RBC) [Mass/Vol]Or dered By: Obsarabjitdarobin Coronadoomar on 03-19-2022 MCHC (RBC) [Mass/Vol] 33.9 g/dL 32.5-35.6 [facility] MCV Auto (RBC) [Entitic vol] Ordered By: Obpaolo Coronadoomar on 03-19-2022 MCV (RBC) [Entitic vol] 88.3 fL 83.5-101 [facility] Monocytes Auto (Bld) [#/Vol] Ordered By: Neno Coronadoomar on 03-19-2022 Monocytes (Bld) [#/Vol] 0.6 10*3/uL 0.0-0.8 [facility] Monocytes/100 WBC Auto (Bld) Ordered By: Obpaolo Coronadoomar on 03-19-2022 Monocytes/100 WBC (Bld) 12.2 % . [facility] Neutrophils Auto (Bld) [#/Vo l]Ordered By: Neno Coronadoomar on 03-19-2022 Neutrophils (Bld) [#/Vol] 3.3 10*3/uL 1.8-7.7 [facility] Neutrophils/100 WBC Auto (Bl d)Ordered By: Obpaolo Coronadoomar on 03-19-2022 Neutrophils/100 WBC (Bld) 66.2 % . [facility] No Panel InformationOrdered By: Neno Moreira on 03-19-2022 Estimated GFR () > 60 mL/Min [facility] Comment on above: GFR estimated refere nce range: According to KDOQI guidelines, <60 ml/min/1.73m2 is sufficient to diagnose a patient with chronic kidney disease. Pharmacy Creatinine Clearance (Chem 85.68 [facility] Platelet mean volume Auto (B ld) [Entitic vol]Ordered By: Neno Moreira on 03-19-2022 Platelet mean volume (Bld) [Entitic vol] 8.3 fL 6.6-10.1 [facility] Platelets Auto (Bld) [#/Vol] Ordered By: Neno Moreira on 03-19-2022 Platelets (Bld) [#/Vol] 134 10*3/uL 150-450 [facility] RBC Auto (Bld) [#/Vol]Ordere d By: Neno Moreira on 03-19-2022 RBC (Bld) [#/Vol] 4.02 10*6/uL 3.90-5.60 [facility] Serum or plasma anion gap de terminationOrdered By: Neno Moreira on 03-19-2022 Anion gap [Moles/Vol] 9.6 mmol/L 6.0-15.0 [facility] Serum or plasma calcium ruma urement (mass/volume)Ordered By: Neno Moreira on 03-19-2022 Calcium [Mass/Vol] 8.2 mg/dL 8.2-10.2 [facility] Serum or plasma chloride gonzalez surement (moles/volume)Ordered By: Neno Moreira on 03-19-2022 Chloride [Moles/Vol] 104 mmol/L 95-114 [facility] Serum or plasma glucose ruma urement (mass/volume)Ordered By: Neno Moreira on 03-19-2022 Glucose [Mass/Vol] 203 mg/dL 70-100 [facility] Comment on above: ADA recommended refe rence rangeRandom Glucose Reference Range is dependent on time and content of last meal. Glucose of more than 200 mg/dL in a nonstressed, ambulatory subject supports the diagnosis of Diabetes Mellitus. Serum or plasma potassium me asurement (moles/volume)Ordered By: Neno Moreira on 03-19-2022 Potassium [Moles/Vol] 3.7 mmol/L 3.5-5.1 [facility] Serum or plasma sodium measu rement (moles/volume)Ordered By: Neno Moreira on 03-19-2022 Sodium [Moles/Vol] 137 mmol/L 136-146 [facility] Serum or plasma total carbon dioxide measurement (moles/volume)Ordered By: Neno Moreira on 03-19-2022 CO2 [Moles/Vol] 27.1 mmol/L 22.0-30.0 [facility] Serum or plasma urea nitroge n measurement (mass/volume)Ordered By: Neno Moreira on 03-19-2022 Urea nitrogen [Mass/Vol] 11 mg/dL 9- [facility] Troponin I High Sensitivityo n 03-19-2022 Troponin I High Sensitivity 1882 pg/mL Off scale high 0-20 [facility] Comment on above: Result Comment: Resu lts called at 0708 on 03/19/22 PERFORMED BY: [place] [address] PATHOLOGIST [employer]BAL SALES DIRECTOR HYACINTH SHAH M.D. Performed By: #### B MP, MG, LIPID, A1C WTH eA, CBC #### [facility] [address] Troponin I.cardiac [Mass/vol ume] in Serum or Plasma by High sensitivity methodOrdered By: Neno Moreira on 03-19-2022 Troponin I.cardiac High sensitivity method [Mass/Vol] 1882 pg/mL 0-20 [facility] Comment on above: Results calledat 070 8 on 03/19/22 Urine culture routineOrdered By: Paulina Alexander on 03-19-2022 Bacteria identified Cx Nom (U) 2 Days [facility] Activated partial thrombopla stin time (aPTT) in platelet poor plasma by coagulation aOrdered By: Paulina Alexander on 03-18-2022 aPTT Coag (PPP) [Time] 26.2 s 25.1-36.5 [facility] Basic Metabolic Panelon Anion gap [Moles/Vol] 7.9 mmol/L Normal 6.0-15.0 [facility] Comment on above: Performed By: #### B MP, MG, LIPID, A1C WTH eA, CBC #### [facility] [address] [place] [address] Calcium [Mass/Vol] 7.9 mg/dL Low 8.2-10.2 [facility] Comment on above: Performed By: #### B MP, MG, LIPID, A1C WTH eA, CBC #### [facility] [address] Chloride [Moles/Vol] 106 mmol/L Normal 95-114 [facility] Comment on above: Performed By: #### B MP, MG, LIPID, A1C WTH eA, CBC #### [address] CO2 [Moles/Vol] 24.9 mmol/L Normal 22.0-30.0 [facility] Comment on above: Performed By: #### B MP, MG, LIPID, A1C WTH eA, CBC #### [address] Creatinine [Mass/Vol] 0.80 mg/dL Normal 0.64-1.27 [facility] Comment on above: Performed By: #### B MP, MG, LIPID, A1C WTH eA, CBC #### [address] Creatinine Clr Calc Pharmacy 78.14 [facility] Comment on above: Result Comment: PERF ORMED BY: [place] [address] PATHOLOGIST GLOBAL SALES DIRECTOR HYACINTH SHAH M.D. Performed By: #### B MP, MG, LIPID, A1C WTH eA, CBC #### [facility] [address] [place] [address] Estimated GFR ( Lilia > 60 [facility] Comment on above: Result Comment: GFR estimated reference range: According to KDOQI guidelines, <60 ml/min/1.73m2 is sufficient to diagnose a patient with chronic kidney disease. Performed By: #### B MP, MG, LIPID, A1C WTH eA, CBC #### [facility] [address] Estimated GFR (Non- Am > 60 Normal [facility] Comment on above: Performed By: #### B MP, MG, LIPID, A1C WTH eA, CBC #### [facility] [address] Glucose [Mass/Vol] 179 mg/dL High 70-100 [facility] Comment on above: Result Comment: [facility] Glucose Reference Range is dependent on time and content of last meal. Glucose of more than 200 mg/dL in a nonstressed, ambulatory subject supports the diagnosis of Diabetes Mellitus. ADA recommended reference range Performed By: #### B MP, MG, LIPID, A1C WTH eA, CBC #### [facility] [address] Potassium [Moles/Vol] 3.8 mmol/L Normal 3.5-5.1 [facility] Comment on above: Performed By: #### B MP, MG, LIPID, A1C WTH eA, CBC #### [facility] [address] Sodium [Moles/Vol] 135 mmol/L Low 136-146 [facility] Comment on above: Performed By: #### B MP, MG, LIPID, A1C WTH eA, CBC #### [facility] [address] Urea nitrogen [Mass/Vol] 14 mg/dL Normal 9-23 [facility] Comment on above: Performed By: #### B MP, MG, LIPID, A1C WTH eA, CBC #### [facility] [address] Blood Cultureon 03-18-2022 Bacteria identified Cx Nom (Bld) NO GROWTH 5 DAYS PERFORMED BY: [place] [address] PATHOLOGIST GLOBAL SALES DIRECTOR HYACINTH SHAH M.D. [facility] Comment on above: Performed By: #### B MP, MG, LIPID, A1C WTH eA, CBC #### [facility] [address] [place] [address] Bacteria identified Cx Nom (Bld) NO GROWTH 5 DAYS PERFORMED BY: [place] [address] PATHOLOGIST GLOBAL SALES DIRECTOR HYACINTH SHAH M.D. Normal [facility] Comment on above: Performed By: #### B MP, MG, LIPID, A1C WTH eA, CBC #### [facility] [address] [place] [address] Glucose Poct Glucometerson 1 05-18-2021 Glucose [Mass/Vol] 253 mg/dL Normal [facility] Comment on above: Result Comment: [place] [facility] Glucose Reference Range is dependent on time and content of last meal. Glucose of more than 200 mg/dL in a nonstressed, ambulatory subject supports the diagnosis of Diabetes Mellitus. PERFORMED BY: [place] [address] PATHOLOGIST GLOBAL SALES DIRECTOR HYACINTH SHAH M.D. Performed By: #### B MP, MG, LIPID, A1C WTH eA, CBC #### [address] [address] [facility] Glucose [Mass/Vol] 225 mg/dL Normal [facility] Comment on above: Result Comment: [place] [facility] Glucose Reference Range is dependent on time and content of last meal. Glucose of more than 200 mg/dL in a nonstressed, ambulatory subject supports the diagnosis of Diabetes Mellitus. PERFORMED BY: [place] [address] PATHOLOGIST GLOBAL SALES DIRECTOR HYACINTH SHAH M.D. Performed By: #### B MP, MG, LIPID, A1C WTH eA, CBC #### [place] [id number] [facility] Glucose [Mass/Vol] 219 mg/dL Normal [facility] Comment on above: Result Comment: [place] [facility] Glucose Reference Range is dependent on time and content of last meal. Glucose of more than 200 mg/dL in a nonstressed, ambulatory subject supports the diagnosis of Diabetes Mellitus. PERFORMED BY: [place] [address] PATHOLOGIST GLOBAL SALES DIRECTOR HYACINTH SHAH M.D. Performed By: #### G LULS #### Point of Care testing , Glucose [Mass/Vol] 172 mg/dL Normal [facility] Comment on above: Result Comment: [facility] Glucose Reference Range is dependent on time and content of last meal. Glucose of more than 200 mg/dL in a nonstressed, ambulatory subject supports the diagnosis of Diabetes Mellitus. PERFORMED BY: [facility] [address] [place] [id number] PATHOLOGIST GLOBAL SALES DIRECTOR HYACINTH SHAH M.D. Performed By: #### G LUCHAN #### Point of Care testing , Laboratory - CoagulationOrde red By: Paulina Alexander on 03-18-2022 PT Coag (PPP) [Time] 14.0 s 9.0-12.9 [facility] Partial Thromboplastin Timeo n 03-18-2022 aPTT Coag (Bld) [Time] 26.2 s Normal 25.1-36.5 [facility] Comment on above: Result Comment: PERF ORMED BY: [place] [address] PATHOLOGIST GLOBAL SALES DIRECTOR HYACINTH SHAH M.D. Performed By: #### B MP, MG, LIPID, A1C WTH eA, CBC #### [facility] [address] [place] [address] Platelet adequacy [Presence] in Blood by Light microscopyOrdered By: Paulina Alexander on 03-18-2022 Platelets LM Ql (Bld) Decreased Normal [facility] Platelet morphology finding [Identifier] in BloodOrdered By: Paulina Alexander on 03-18-2022 Platelet morphology finding Nom (Bld) Normal Normal [facility] Platelet poor plasma interna tional normalized ratio (INR) by coagulation assay (relatOrdered By: Paulina Alexander on 03-18-2022 INR Coag (PPP) [Relative time] 1.2 {INR} [facility] Comment on above: INR Therapeutic Rang [...] Coag (PPP) [Relative time] 1.2 {INR} Normal [facility] Comment on above: Result Comment: INR [...] MG, LIPID, A1C WTH eA, CBC #### [facility] [address] PT Coag (PPP) [Time] 14.0 s High 9.0-12.9 [facility] Comment on above: Performed By: #### B MP, MG, LIPID, A1C WTH eA, CBC #### [facility] [address] RBC morphologyOrdered By: Jose G Alexander on 03-18-2022 RBC morphology finding Nom (Bld) Normal [facility] Scan and CBCon 03-18-2022 Basophils (Bld) [#/Vol] 0.0 10*3/uL Normal 0.0-0.2 [facility] Comment on above: Performed By: #### B MP, MG, LIPID, A1C WTH eA, CBC #### [facility] [address] [place] [address] [place] Basophils/100 WBC (Bld) 0.3 % Normal . [facility] Comment on above: Performed By: #### B MP, MG, LIPID, A1C WTH eA, CBC #### [facility] [address] [place] [address] [place] Eosinophils (Bld) [#/Vol] 0.1 10*3/uL Normal 0.0-0.45 [facility] Comment on above: Performed By: #### B MP, MG, LIPID, A1C WTH eA, CBC #### [address] Eosinophils/100 WBC (Bld) 0.9 % Normal . [facility] Comment on above: Performed By: #### B MP, MG, LIPID, A1C WTH eA, CBC #### [facility] [address] Erythrocyte distribution width (RBC) [Ratio] 13.1 % Normal 12.0-14.8 [facility] Comment on above: Performed By: #### B MP, MG, LIPID, A1C WTH eA, CBC #### [address] Hematocrit (Bld) [Volume fraction] 34.8 % Low 38.8-50.0 [facility] Comment on above: Performed By: #### B MP, MG, LIPID, A1C WTH eA, CBC #### [address] Hemoglobin (Bld) [Mass/Vol] 11.7 g/dL Low 13.0-17.0 [facility] Comment on above: Performed By: #### B MP, MG, LIPID, A1C WTH eA, CBC #### [address] Lymphocytes (Bld) [#/Vol] 0.9 10*3/uL Low 1.00-4.8 [facility] Comment on above: Performed By: #### B MP, MG, LIPID, A1C WTH eA, CBC #### [address] Lymphocytes/100 WBC (Bld) 15.8 % Normal . [facility] Comment on above: Performed By: #### B MP, MG, LIPID, A1C WTH eA, CBC #### [address] MCH (RBC) [Entitic mass] 29.6 pg Normal 27.5-35.2 [facility] Comment on above: Performed By: #### B MP, MG, LIPID, A1C WTH eA, CBC #### [facility] [address] MCV (RBC) [Entitic vol] 88.1 fL Normal 83.5-101 [facility] Comment on above: Performed By: #### B MP, MG, LIPID, A1C WTH eA, CBC #### [facility] [address] Mean Corpuscular HGB Conc 33.6 g/dL Normal 32.5-35.6 [facility] Comment on above: Performed By: #### B MP, MG, LIPID, A1C WTH eA, CBC #### [address] Monocytes (Bld) [#/Vol] 0.9 10*3/uL High 0.0-0.8 [facility] Comment on above: Performed By: #### B MP, MG, LIPID, A1C WTH eA, CBC #### [place] [address] [place] Monocytes/100 WBC (Bld) 14.2 % Normal . [facility] Comment on above: Performed By: #### B MP, MG, LIPID, A1C WTH eA, CBC #### [address] Neutrophils (Bld) [#/Vol] 4.1 10*3/uL Normal 1.8-7.7 [facility] Comment on above: Performed By: #### B MP, MG, LIPID, A1C WTH eA, CBC #### [place] [address] [place] Neutrophils/100 WBC (Bld) 68.8 % Normal . [facility] Comment on above: Performed By: #### B MP, MG, LIPID, A1C WTH eA, CBC #### [place] [address] [place] Nucleated RBC/100 WBC (Bld) [Ratio] 0.1 % Normal 0-0.5 [facility] Comment on above: Performed By: #### B MP, MG, LIPID, A1C WTH eA, CBC #### [facility] [address] Platelet Estimate Decreased Low Normal [facility] Comment on above: Performed By: #### B MP, MG, LIPID, A1C WTH eA, CBC #### [facility] [address] Platelet mean volume (Bld) [Entitic vol] 8.6 fL Normal 6.6-10.1 [facility] Comment on above: Performed By: #### B MP, MG, LIPID, A1C WTH eA, CBC #### [facility] [address] Platelet Morphology Normal Normal Normal [facility] Comment on above: Result Comment: PERF ORMED BY: [place] [address] PATHOLOGIST GLOBAL SALES DIRECTOR HYACINTH SHAH M.D. Performed By: #### B MP, MG, LIPID, A1C WTH eA, CBC #### [facility] [address] Platelets (Bld) [#/Vol] 140 10*3/uL Low 150-450 [facility] Comment on above: Performed By: #### B MP, MG, LIPID, A1C WTH eA, CBC #### [facility] [address] RBC (Bld) [#/Vol] 3.95 10*6/uL Normal 3.90-5.60 [facility] Comment on above: Performed By: #### B MP, MG, LIPID, A1C WTH eA, CBC #### [facility] [address] [place] [address] [place] RBC morphology finding Nom (Bld) Normal Normal [facility] Comment on above: Performed By: #### B MP, MG, LIPID, A1C WTH eA, CBC #### [facility] [address] [place] [address] [place] WBC (Bld) [#/Vol] 6.0 10*3/uL Normal 4.5-11.0 [facility] Comment on above: Performed By: #### B MP, MG, LIPID, A1C WTH eA, CBC #### [facility] [address] A1C with Estimated Average G hossein 03-17-2022 Glucose [Mass/Vol] 180 mg/dL Normal [facility] Comment on above: Result Comment: PERF ORMED BY: [place] [address] PATHOLOGIST G[employer] SALES DIRECTOR HYACINTH SHAH M.D. Performed By: #### B MP, MG, LIPID, A1C WTH eA, CBC #### [address] HbA1c (Bld) [Mass fraction] 7.9 % High 4.3-5.6 [facility] Comment on above: Result Comment: Incr eased risk for diabetes: 5.7 - 6.4 diabetes: >6.4 glycemic control for adults with diabetes: <7.0 Performed By: #### B MP, MG, LIPID, A1C WTH eA, CBC #### [facility] [address] [place] [address] Automated erythrocytes count in urine sediment (number/area)Ordered By: Paulina Alexander on 03-17-2022 RBC Auto (Urine sed) [#/Area] 20-49 [HPF] 0-4 [facility] Automated leukocytes count i n urine sediment (number/area)Ordered By: Paulina Alexander on 03-17-2022 WBC Auto (Urine sed) [#/Area] Innumerable [HPF] 0-4 [facility] Automated urine hyaline cast s count (number/volume)Ordered By: Paulina Alexander on 03-17-2022 Hyaline casts Auto (U) [#/Vol] 0-1 [LPF] 0-1 [facility] Basic Metabolic Panelon Anion gap [Moles/Vol] 14.1 mmol/L Normal 6.0-15.0 [facility] Comment on above: Performed By: #### B MP, MG, LIPID, A1C WTH eA, CBC #### [facility] [address] Calcium [Mass/Vol] 8.2 mg/dL Normal 8.2-10.2 [facility] Comment on above: Performed By: #### B MP, MG, LIPID, A1C WTH eA, CBC #### [facility] [address] Chloride [Moles/Vol] 98 mmol/L Normal 95-114 [facility] Comment on above: Performed By: #### B MP, MG, LIPID, A1C WTH eA, CBC #### [facility] [address] CO2 [Moles/Vol] 24.2 mmol/L Normal 22.0-30.0 [facility] Comment on above: Performed By: #### B MP, MG, LIPID, A1C WTH eA, CBC #### [facility] [address] Creatinine [Mass/Vol] 1.07 mg/dL Normal 0.64-1.27 [facility] Comment on above: Performed By: #### B MP, MG, LIPID, A1C WTH eA, CBC #### [facility] [address] [place] [address] [place] Creatinine Clr Calc Pharmacy 58.60 [facility] Comment on above: Performed By: #### B MP, MG, LIPID, A1C WTH eA, CBC #### [facility] [address] Estimated GFR ( Lilia > 60 [facility] Comment on above: Result Comment: GFR estimated reference range: According to KDOQI guidelines, <60 ml/min/1.73m2 is sufficient to diagnose a patient with chronic kidney disease. Performed By: #### B MP, MG, LIPID, A1C WTH eA, CBC #### [facility] [address] Estimated GFR (Non- Am > 60 [facility] Comment on above: Performed By: #### B MP, MG, LIPID, A1C WTH eA, CBC #### [facility] [address] [place] [address] [place] Glucose [Mass/Vol] 233 mg/dL High 70-100 [facility] Comment on above: Result Comment: [facility] Glucose Reference Range is dependent on time and content of last meal. Glucose of more than 200 mg/dL in a nonstressed, ambulatory subject supports the diagnosis of Diabetes Mellitus. ADA recommended reference range Performed By: #### B MP, MG, LIPID, A1C WTH eA, CBC #### [facility] [address] Potassium [Moles/Vol] 4.3 mmol/L Normal 3.5-5.1 [facility] Comment on above: Performed By: #### B MP, MG, LIPID, A1C WTH eA, CBC #### [facility] [address] Sodium [Moles/Vol] 132 mmol/L Low 136-146 [facility] Comment on above: Performed By: #### B MP, MG, LIPID, A1C WTH eA, CBC #### [facility] [address] Urea nitrogen [Mass/Vol] 16 mg/dL Normal 9-23 [facility] Comment on above: Performed By: #### B MP, MG, LIPID, A1C WTH eA, CBC #### [facility] [address] Bilirubin Test strip Ql (U)O rdered By: Paulina Alexander on 03-17-2022 Bilirubin Ql (U) Negative Negative [facility] Body fluid albumin measureme nt (mass/volume)Ordered By: Paulina Alexander on 03-17-2022 Albumin (Body fld) [Mass/Vol] 2.5 g/dL 3.2-5.5 [facility] Casts typing in urine sedime nt by light microscopyOrdered By: Paulina Alexander on 03-17-2022 Casts LM Nom (Urine sed) None seen [LPF] None Seen [facility] Cholesterol [Mass/volume] in Serum or PlasmaOrdered By: Paulina Alexander on 03-17-2022 Cholesterol [Mass/Vol] 50 mg/dL 140-200 [facility] Comment on above: Chol less than 200 m g/dl low riskChol 201-239 mg/dl borderline riskChol 240 mg/dl and greater high risk Cholesterol in LDL Calc [Mas s/Vol]Ordered By: Paulina Alexander on 03-17-2022 Cholesterol in LDL [Mass/Vol] 12 mg/dL 0-100 [facility] Comment on above: LDL ATP III CLASSIFI CATIONLDL less than 100 mg/dL OptimalLDL 100-129 mg/dL Near or above optimalLDL 130-159 mg/dL Borderline highLDL 160-189 mg/dL HighLDL greater than 189 mg/dL Very high Cholesterol in VLDL Calc [Ma ss/Vol]Ordered By: Paulina Alexander on 03-17-2022 Cholesterol in VLDL [Mass/Vol] 20 mg/dL [facility] Coagulation Profileon 2021 aPTT Coag (Bld) [Time] 42.6 s High 25.1-36.5 [facility] Comment on above: Result Comment: PERF ORMED BY: [place] [address] PATHOLOGIST [employer] DIRECTOR HYACINTH SHAH M.D. Performed By: #### B MP, MG, LIPID, A1C WT eA, CBC #### [facility] [address] INR Coag (PPP) [Relative time] 2.2 {INR} Normal [facility] Comment on above: Result Comment: INR [...] MG, LIPID, A1C WTH eA, CBC #### [facility] [address] PT Coag (PPP) [Time] 25.3 s High 9.0-12.9 [facility] Comment on above: Performed By: #### B MP, MG, LIPID, A1C WTH eA, CBC #### [address] Color Auto (U)Ordered By: Jose G Alexander on 03-17-2022 Color (U) Yellow Yellow [facility] Complete Blood Count Auto Di ffon 03-17-2022 Basophils (Bld) [#/Vol] 0.0 10*3/uL Normal 0.0-0.2 [facility] Comment on above: Result Comment: PERF ORMED BY: [place] [address] PATHOLOGIST [employer] DIRECTOR HYACINTH SHAH M.D. Performed By: #### B MP, MG, LIPID, A1C WTH eA, CBC #### [address] Basophils/100 WBC (Bld) 0.2 % Normal . [facility] Comment on above: Performed By: #### B MP, MG, LIPID, A1C WTH eA, CBC #### [facility] [address] [place] [address] Eosinophils (Bld) [#/Vol] 0.0 10*3/uL Normal 0.0-0.45 [facility] Comment on above: Performed By: #### B MP, MG, LIPID, A1C WTH eA, CBC #### [address] Eosinophils/100 WBC (Bld) 0.0 % Normal . [facility] Comment on above: Performed By: #### B MP, MG, LIPID, A1C WTH eA, CBC #### [address] Erythrocyte distribution width (RBC) [Ratio] 13.1 % Normal 12.0-14.8 [facility] Comment on above: Performed By: #### B MP, MG, LIPID, A1C WTH eA, CBC #### [address] Hematocrit (Bld) [Volume fraction] 35.3 % Low 38.8-50.0 [facility] Comment on above: Performed By: #### B MP, MG, LIPID, A1C WTH eA, CBC #### [address] Hemoglobin (Bld) [Mass/Vol] 11.9 g/dL Low 13.0-17.0 [facility] Comment on above: Performed By: #### B MP, MG, LIPID, A1C WTH eA, CBC #### [address] Lymphocytes (Bld) [#/Vol] 0.9 10*3/uL Low 1.00-4.8 [facility] Comment on above: Performed By: #### B MP, MG, LIPID, A1C WTH eA, CBC #### [address] Lymphocytes/100 WBC (Bld) 13.2 % Normal . [facility] Comment on above: Performed By: #### B MP, MG, LIPID, A1C WTH eA, CBC #### [address] MCH (RBC) [Entitic mass] 30.0 pg Normal 27.5-35.2 [facility] Comment on above: Performed By: #### B MP, MG, LIPID, A1C WTH eA, CBC #### [address] MCV (RBC) [Entitic vol] 89.4 fL Normal 83.5-101 [facility] Comment on above: Performed By: #### B MP, MG, LIPID, A1C WTH eA, CBC #### [address] Mean Corpuscular HGB Conc 33.6 g/dL Normal 32.5-35.6 [facility] Comment on above: Performed By: #### B MP, MG, LIPID, A1C WTH eA, CBC #### [address] Monocytes (Bld) [#/Vol] 1.0 10*3/uL High 0.0-0.8 [facility] Comment on above: Performed By: #### B MP, MG, LIPID, A1C WTH eA, CBC #### [facility] [address] [place] [address] [place] Monocytes/100 WBC (Bld) 14.6 % Normal . [facility] Comment on above: Performed By: #### B MP, MG, LIPID, A1C WTH eA, CBC #### [facility] [address] Neutrophils (Bld) [#/Vol] 5.1 10*3/uL Normal 1.8-7.7 [facility] Comment on above: Performed By: #### B MP, MG, LIPID, A1C WTH eA, CBC #### [facility] [address] Neutrophils/100 WBC (Bld) 72.0 % Normal . [facility] Comment on above: Performed By: #### B MP, MG, LIPID, A1C WTH eA, CBC #### [place] [address] [place] Nucleated RBC/100 WBC (Bld) [Ratio] 0.0 % Normal 0-0.5 [facility] Comment on above: Performed By: #### B MP, MG, LIPID, A1C WTH eA, CBC #### [address] Platelet mean volume (Bld) [Entitic vol] 7.9 fL Normal 6.6-10.1 [facility] Comment on above: Performed By: #### B MP, MG, LIPID, A1C WTH eA, CBC #### [place] [address] [place] Platelets (Bld) [#/Vol] 123 10*3/uL Low 150-450 [facility] Comment on above: Performed By: #### B MP, MG, LIPID, A1C WTH eA, CBC #### [place] [address] [place] RBC (Bld) [#/Vol] 3.95 10*6/uL Normal 3.90-5.60 [facility] Comment on above: Performed By: #### B MP, MG, LIPID, A1C WTH eA, CBC #### [address] WBC (Bld) [#/Vol] 7.1 10*3/uL Normal 4.5-11.0 [facility] Comment on above: Performed By: #### B MP, MG, LIPID, A1C WTH eA, CBC #### [address] Basophils (Bld) [#/Vol] 0.0 10*3/uL Normal 0.0-0.2 [facility] Comment on above: Result Comment: PERF ORMED BY: [place] [address] PATHOLOGIST [employer] DIRECTOR HYACINTH SHAH M.D. Performed By: #### B MP, MG, LIPID, A1C WTH eA, CBC #### [address] Basophils/100 WBC (Bld) 0.2 % Normal . [facility] Comment on above: Performed By: #### B MP, MG, LIPID, A1C WTH eA, CBC #### [address] Eosinophils (Bld) [#/Vol] 0.0 10*3/uL Normal 0.0-0.45 [facility] Comment on above: Performed By: #### B MP, MG, LIPID, A1C WTH eA, CBC #### [address] Eosinophils/100 WBC (Bld) 0.0 % Normal . [facility] Comment on above: Performed By: #### B MP, MG, LIPID, A1C WTH eA, CBC #### [address] Erythrocyte distribution width (RBC) [Ratio] 12.9 % Normal 12.0-14.8 [facility] Comment on above: Performed By: #### B MP, MG, LIPID, A1C WTH eA, CBC #### [place] [address] [place] Hematocrit (Bld) [Volume fraction] 36.2 % Low 38.8-50.0 [facility] Comment on above: Performed By: #### B MP, MG, LIPID, A1C WTH eA, CBC #### [facility] [address] Hemoglobin (Bld) [Mass/Vol] 12.1 g/dL Low 13.0-17.0 [facility] Comment on above: Performed By: #### B MP, MG, LIPID, A1C WTH eA, CBC #### [facility] [address] Lymphocytes (Bld) [#/Vol] 0.6 10*3/uL Low 1.00-4.8 [facility] Comment on above: Performed By: #### B MP, MG, LIPID, A1C WTH eA, CBC #### [address] Lymphocytes/100 WBC (Bld) 7.2 % Normal . [facility] Comment on above: Performed By: #### B MP, MG, LIPID, A1C WTH eA, CBC #### [facility] [address] MCH (RBC) [Entitic mass] 29.8 pg Normal 27.5-35.2 [facility] Comment on above: Performed By: #### B MP, MG, LIPID, A1C WTH eA, CBC #### [address] MCV (RBC) [Entitic vol] 89.3 fL Normal 83.5-101 [facility] Comment on above: Performed By: #### B MP, MG, LIPID, A1C WTH eA, CBC #### [address] Mean Corpuscular HGB Conc 33.3 g/dL Normal 32.5-35.6 [facility] Comment on above: Performed By: #### B MP, MG, LIPID, A1C WTH eA, CBC #### [address] Monocytes (Bld) [#/Vol] 0.9 10*3/uL High 0.0-0.8 [facility] Comment on above: Performed By: #### B MP, MG, LIPID, A1C WTH eA, CBC #### [facility] [address] [place] [address] [place] Monocytes/100 WBC (Bld) 10.2 % Normal . [facility] Comment on above: Performed By: #### B MP, MG, LIPID, A1C WTH eA, CBC #### [facility] [address] [place] [address] [place] Neutrophils (Bld) [#/Vol] 7.1 10*3/uL Normal 1.8-7.7 [facility] Comment on above: Performed By: #### B MP, MG, LIPID, A1C WTH eA, CBC #### [facility] [address] [place] [address] [place] Neutrophils/100 WBC (Bld) 82.4 % Normal . [facility] Comment on above: Performed By: #### B MP, MG, LIPID, A1C WTH eA, CBC #### [facility] [address] [place] [address] [place] Nucleated RBC/100 WBC (Bld) [Ratio] 0.1 % Normal 0-0.5 [facility] Comment on above: Performed By: #### B MP, MG, LIPID, A1C WTH eA, CBC #### [facility] [address] [place] [address] [place] Platelet mean volume (Bld) [Entitic vol] 8.0 fL Normal 6.6-10.1 [facility] Comment on above: Performed By: #### B MP, MG, LIPID, A1C WTH eA, CBC #### [facility] [address] [place] [address] [place] Platelets (Bld) [#/Vol] 126 10*3/uL Low 150-450 [facility] Comment on above: Performed By: #### B MP, MG, LIPID, A1C WTH eA, CBC #### [facility] [address] [place] [address] [place] RBC (Bld) [#/Vol] 4.06 10*6/uL Normal 3.90-5.60 [facility] Comment on above: Performed By: #### B MP, MG, LIPID, A1C WTH eA, CBC #### [facility] [address] WBC (Bld) [#/Vol] 8.6 10*3/uL Normal 4.5-11.0 [facility] Comment on above: Performed By: #### B MP, MG, LIPID, A1C WTH eA, CBC #### [facility] [address] [place] [address] Comprehensive Metabolic Pane mayur 03-17-2022 Albumin [Mass/Vol] 2.5 g/dL Low 3.2-5.5 [facility] Comment on above: Performed By: #### B MP, MG, LIPID, A1C WTH eA, CBC #### [facility] [address] [place] [address] Albumin/Globulin [Mass ratio] 0.8 {ratio} Normal [facility] Comment on above: Performed By: #### B MP, MG, LIPID, A1C WTH eA, CBC #### [address] ALP [Catalytic activity/Vol] 56 U/L Normal 32-92 [facility] Comment on above: Performed By: #### B MP, MG, LIPID, A1C WTH eA, CBC #### [facility] [address] [place] [address] ALT [Catalytic activity/Vol] 19 U/L Normal 10-60 [facility] Comment on above: Performed By: #### B MP, MG, LIPID, A1C WTH eA, CBC #### [facility] [address] [place] [address] Anion gap [Moles/Vol] 13.1 mmol/L Normal 6.0-15.0 [facility] Comment on above: Performed By: #### B MP, MG, LIPID, A1C WTH eA, CBC #### [place] [address] [place] AST [Catalytic activity/Vol] 37 U/L Normal 10-42 [facility] Comment on above: Performed By: #### B MP, MG, LIPID, A1C WTH eA, CBC #### [facility] [address] Bilirubin [Mass/Vol] 0.6 mg/dL Normal 0.3-1.2 [facility] Comment on above: Performed By: #### B MP, MG, LIPID, A1C WTH eA, CBC #### [facility] [address] Calcium [Mass/Vol] 8.4 mg/dL Normal 8.2-10.2 [facility] Comment on above: Performed By: #### B MP, MG, LIPID, A1C WTH eA, CBC #### [facility] [address] Chloride [Moles/Vol] 98 mmol/L Normal 95-114 [facility] Comment on above: Performed By: #### B MP, MG, LIPID, A1C WTH eA, CBC #### [facility] [address] CO2 [Moles/Vol] 21.6 mmol/L Low 22.0-30.0 [facility] Comment on above: Performed By: #### B MP, MG, LIPID, A1C WTH eA, CBC #### [facility] [address] [place] [address] [place] Creatinine [Mass/Vol] 1.04 mg/dL Normal 0.64-1.27 [facility] Comment on above: Performed By: #### B MP, MG, LIPID, A1C WTH eA, CBC #### [facility] [address] [place] [address] [place] Creatinine Clr Calc Pharmacy 60.29 [facility] Comment on above: Performed By: #### B MP, MG, LIPID, A1C WTH eA, CBC #### [facility] [address] [place] [address] [place] Estimated GFR ( Lilia > 60 [facility] Comment on above: Result Comment: GFR estimated reference range: According to KDOQI guidelines, <60 ml/min/1.73m2 is sufficient to diagnose a patient with chronic kidney disease. Performed By: #### B MP, MG, LIPID, A1C WTH eA, CBC #### [facility] [address] Estimated GFR (Non- Am > 60 [facility] Comment on above: Performed By: #### B MP, MG, LIPID, A1C WTH eA, CBC #### [facility] [address] Globulin (S) [Mass/Vol] 3.1 g/dL [facility] Comment on above: Performed By: #### B MP, MG, LIPID, A1C WTH eA, CBC #### [address] Glucose [Mass/Vol] 294 mg/dL High 70-100 [facility] Comment on above: Result Comment: [place] Glucose Reference Range is dependent on time and content of last meal. Glucose of more than 200 mg/dL in a nonstressed, ambulatory subject supports the diagnosis of Diabetes Mellitus. ADA recommended reference range Performed By: #### B MP, MG, LIPID, A1C WTH eA, CBC #### [facility] [address] Potassium [Moles/Vol] 3.7 mmol/L Normal 3.5-5.1 [facility] Comment on above: Performed By: #### B MP, MG, LIPID, A1C WTH eA, CBC #### [facility] [address] [place] [address] [place] Protein [Mass/Vol] 5.6 g/dL Low 6.1-7.9 [facility] Comment on above: Performed By: #### B MP, MG, LIPID, A1C WTH eA, CBC #### [facility] [address] [place] [address] [place] Sodium [Moles/Vol] 129 mmol/L Low 136-146 [facility] Comment on above: Performed By: #### B MP, MG, LIPID, A1C WTH eA, CBC #### [facility] [address] Urea nitrogen [Mass/Vol] 18 mg/dL Normal - [facility] Comment on above: Performed By: #### B MP, MG, LIPID, A1C WTH eA, CBC #### [facility] [address] [place] [address] [place] Dipstick and Microscopicon 1 05-17-2021 Appearance (U) Turbid Critically abnormal Clear [facility] Comment on above: Order Comment: Name Collection Type:: Tinsley Catheter Performed By: #### B MP, MG, LIPID, A1C WTH eA, CBC #### [facility] [address] Bacteria,Urine 2+ High None Seen [facility] Comment on above: Order Comment: Name Collection Type:: Tinsley Catheter Result Comment: --- 03/17/22 0600 --- Ur Bact previously reported as: None Seen Performed By: #### B MP, MG, LIPID, A1C WTH eA, CBC #### [facility] [address] Bilirubin,Urine Negative Normal Negative [facility] Comment on above: Order Comment: Name Collection Type:: Tinsley Catheter Performed By: #### B MP, MG, LIPID, A1C WTH eA, CBC #### [facility] [address] Color (U) Yellow Normal Yellow [facility] Comment on above: Order Comment: Name Collection Type:: Tinsley Catheter Performed By: #### B MP, MG, LIPID, A1C WTH eA, CBC #### [facility] [address] [place] [address] [place] Glucose Ql (U) 250 mg/dL High Normal [facility] Comment on above: Order Comment: Name Collection Type:: Tinsley Catheter Performed By: #### B MP, MG, LIPID, A1C WTH eA, CBC #### [facility] [address] Hyaline Casts,Urine 0-1 Normal 0-1 [facility] Comment on above: Order Comment: Name Collection Type:: Tinsley Catheter Performed By: #### B MP, MG, LIPID, A1C WTH eA, CBC #### [address] Ketones Ql (U) Negative Normal Negative [facility] Comment on above: Order Comment: Name Collection Type:: Tinsley Catheter Performed By: #### B MP, MG, LIPID, A1C WTH eA, CBC #### [address] Leukocyte esterase Test strip Ql (U) 4+ High Negative [facility] Comment on above: Order Comment: Name Collection Type:: Tinsley Catheter Performed By: #### B MP, MG, LIPID, A1C WTH eA, CBC #### [address] Nitrite,Urine Negative Normal Negative [facility] Comment on above: Order Comment: Name Collection Type:: Tinsley Catheter Performed By: #### B MP, MG, LIPID, A1C WTH eA, CBC #### [address] Occult Blood,Urine 3+ High Negative [facility] Comment on above: Order Comment: Name Collection Type:: Tinsley Catheter Result Comment: PERF ORMED BY: [place] [address] PATHOLOGIST [employer] DIRECTOR HYACINTH SHAH M.D. Performed By: #### B MP, MG, LIPID, A1C WTH eA, CBC #### [address] Other Casts,Urine None Seen Normal None Seen [facility] Comment on above: Order Comment: Name Collection Type:: Tinsley Catheter Performed By: #### B MP, MG, LIPID, A1C WTH eA, CBC #### [address] pH (U) 5.5 [pH] Normal 5.0-9.0 [facility] Comment on above: Order Comment: Name Collection Type:: Tinsley Catheter Performed By: #### B MP, MG, LIPID, A1C WTH eA, CBC #### [facility] [address] Protein (U) [Mass/Vol] 100 mg/dL High Negative [facility] Comment on above: Order Comment: Name Collection Type:: Tinsley Catheter Performed By: #### B MP, MG, LIPID, A1C WTH eA, CBC #### [facility] [address] RBC,Urine 20-49 High 0-4 [facility] Comment on above: Order Comment: Name Collection Type:: Tinsley Catheter Performed By: #### B MP, MG, LIPID, A1C WTH eA, CBC #### [facility] [address] Specificy [place],Urine 1.017 Normal 1.001-1.03 0 [facility] Comment on above: Order Comment: Name Collection Type:: Tinsley Catheter Performed By: #### B MP, MG, LIPID, A1C WTH eA, CBC #### [facility] [address] Squamous Epithelial Cell,Urine 0-1 Normal 0-2 [facility] Comment on above: Order Comment: Name Collection Type:: Tinsley Catheter Performed By: #### B MP, MG, LIPID, A1C WTH eA, CBC #### [facility] [address] Urobilinogen,Urine Normal Normal Normal [facility] Comment on above: Order Comment: Name Collection Type:: Tinsley Catheter Performed By: #### B MP, MG, LIPID, A1C WTH eA, CBC #### [facility] [address] [place] [address] [place] WBC,Urine Innumerable High 0-4 [facility] Comment on above: Order Comment: Name Collection Type:: Tinsley Catheter Performed By: #### B MP, MG, LIPID, A1C WTH eA, CBC #### [facility] [address] Yeast,Urine None Seen Normal None Seen [facility] Comment on above: Order Comment: Name Collection Type:: Tinsley Catheter Result Comment: PERF ORMED BY: [place] [address] PATHOLOGIST [employer] DIRECTOR HYACINTH SHAH M.D. Performed By: #### B MP, MG, LIPID, A1C WT eA, CBC #### [address] ECG 12 lead ECGon 03-17-2022 ECG 12 lead ECG [facility] [place] [address] Electrocardiograph Report Signed Patient: Marilu Dan MR#: [id number] : 1950 Acct:[id number] Age/Sex: 71 / M ADM Date: 03/16/22 Loc: 4N Room: [address] [place] [address] Type: DIS IN Attending Dr: Neno Moreira [...] is now visible Confirmed by ASHLEY DIAZ FACC, CHRISTEL ([id number]) on 03/17/2022 3:00:20 PM Referred By: Electronically Signed By:CHRISTEL RAMIREZ MD FACC Transcribed By: MUS Signed By Christel Ramirez MD, FACC 03/17/22 1500 Normal [facility] ECG 12 lead ECG [facility] [place] [address] Electrocardiograph Report Signed Patient: Marilu Dan MR#: [id number] : 1950 Acct:[id number] Age/Sex: 71 / M ADM Date: 03/16/22 Loc: 4N Room: 9V6004-7 Type: DIS IN Attending Dr: Neno Moreira [...] ECG No previous ECGs available Confirmed by CHRISTEL RAMIREZ MD, FACC ([id number]) on 03/17/2022 2:59:11 PM Referred By: Electronically Signed By:CHRISTEL RAMIREZ MD [facility] Transcribed By: MUS Signed By Christel Ramirez MD, FAC 03/17/22 1459 [facility] ECG 12 lead ECG [facility] [place] [address] Electrocardiograph Report Signed Patient: Marilu Dan MR#: [id number] : 1950 Acct:[id number] Age/Sex: 71 / M ADM Date: 03/16/22 Loc: Room: [address] [place] [address] Type: DIS IN Attending Dr: Neno Moreira [...] ECG No previous ECGs available Confirmed by CRISTO SORTO MD, FACC ([id number]) on 03/24/2022 5:15:16 PM Referred By: Electronically Signed By:CRISTO SORTO MD [facility] Transcribed By: MUS Signed By Jc Sorto MD 03/24/22 1714 [facility] ECH echo transthoracicon [facility] echo transthoracic [facility] [place] [address] [place] [address] Echocardiogram Signed Patient: Marilu Dan MR#: [id number] : 1950 Acct:[id number] Age/Sex: 71 / M ADM Date: 03/16/22 Loc: Room: [address] [place] [address] Type: DIS IN Attending Dr: Neno Moreira MD Ordering Provider: Paulina Walker MD Date of Service: 03/17/2209/02/29 [facility] echo transthoracic: chest pain Copies to: MD [...] cm2 STEFANIA(V,D): 1.6 cm2 ___ Transcribed By: SCV Performed At: 03/17/22 1005 Signed By: Jc Sorto MD 03/17/22 1122 Normal [facility] Globulin Calc (S) [Mass/Vol] Ordered By: Paulina Alexander on 03-17-2022 Globulin (S) [Mass/Vol] 3.1 g/dL [facility] Glucose Poct Glucometerson 1 05-17-2021 Glucose [Mass/Vol] 267 mg/dL Normal [facility] Comment on above: Result Comment: [facility] Glucose Reference Range is dependent on time and content of last meal. Glucose of more than 200 mg/dL in a nonstressed, ambulatory subject supports the diagnosis of Diabetes Mellitus. PERFORMED BY: [place] [address] PATHOLOGIST GLOBAL SALES DIRECTOR HYACINTH SHAH M.D. Performed By: #### C UU #### [address] Commemt1 Glu2: Cleaned Meter [facility] Comment on above: Result Comment: PERF ORMED BY: [place] [address] PATHOLOGIST GLOBAL SALES DIRECTOR HYACINTH SHAH M.D. Performed By: #### B MP, MG, LIPID, A1C WTH eA, CBC #### [address] Glucose [Mass/Vol] 131 mg/dL Normal [facility] Comment on above: Result Comment: [place] [facility] Glucose Reference Range is dependent on time and content of last meal. Glucose of more than 200 mg/dL in a nonstressed, ambulatory subject supports the diagnosis of Diabetes Mellitus. Performed By: #### B MP, MG, LIPID, A1C WTH eA, CBC #### [address] Glucose [Mass/Vol] 135 mg/dL Normal [facility] Comment on above: Result Comment: [place] [facility] Glucose Reference Range is dependent on time and content of last meal. Glucose of more than 200 mg/dL in a nonstressed, ambulatory subject supports the diagnosis of Diabetes Mellitus. PERFORMED BY: [place] [phone] PATHOLOGIST GLOBAL SALES DIRECTOR HYACINTH SHAH M.D. Performed By: #### B MP, MG, LIPID, A1C WTH eA, CBC #### [address] Glucose [Mass/Vol] 207 mg/dL Normal [facility] Comment on above: Result Comment: [place] [facility] Glucose Reference Range is dependent on time and content of last meal. Glucose of more than 200 mg/dL in a nonstressed, ambulatory subject supports the diagnosis of Diabetes Mellitus. PERFORMED BY: [place] [address] PATHOLOGIST GLOBAL SALES DIRECTOR HYACINTH SHAH M.D. Performed By: #### B MP, MG, LIPID, A1C WTH eA, CBC #### [address] Glucose mean value [Mass/vol ume] in Blood Estimated from glycated hemoglobinOrdered By: Paulina Alexander on 03-17-2022 Average glucose Estimated from glycated hemoglobin (Bld) [Mass/Vol] 180 mg/dL [facility] Hemoglobin A1c percentageOrd ered By: Paulina Alexander on 03-17-2022 HbA1c (Bld) [Mass fraction] 7.9 % 4.3-5.6 [facility] Comment on above: Increased risk for d iabetes: 5.7 - 6.4diabetes: >6.4glycemic control for adults with diabetes: <7.0 Ketones Auto test strip (U) [Mass/Vol]Ordered By: Paulina Alexander on 03-17-2022 Ketones (U) [Mass/Vol] Negative Negative [facility] - Chemistry and C hemistry - challengeOrdered By: Paulina Alexander on 03-17-2022 Magnesium [Mass/Vol] 1.6 mg/dL 1.6-2.6 [facility] Lipid Panelon 03-17-2022 Cholesterol [Mass/Vol] 50 mg/dL Low 140-200 [facility] Comment on above: Result Comment: Chol less than 200 mg/dl low risk Chol 201-239 mg/dl borderline risk Chol 240 mg/dl and greater high risk Performed By: #### B MP, MG, LIPID, A1C WT eA, CBC #### [facility] [address] Cholesterol in HDL [Mass/Vol] 18 mg/dL Low 29-71 [facility] Comment on above: Result Comment: HDL CHOL ATP-III CLASSIFICATION Cardiovascular Risk HDL > or equal to 60 mg/dL LOW HDL < 40 mg/dL HIGH Performed By: #### B MP, MG, LIPID, A1C WT eA, CBC #### [facility] [address] Cholesterol.total/Chol esterol in HDL [Mass ratio] 2.8 {ratio} Normal <5.0 [facility] Comment on above: Result Comment: PERF ORMED BY: [place] [address] PATHOLOGIST GLOBAL SALES DIRECTOR HYACINTH SHAH M.D. Performed By: #### B MP, MG, LIPID, A1C WTH eA, CBC #### [facility] [address] LDL Cholesterol,Calculated 12 mg/dL Normal 0-100 [facility] Comment on above: Result Comment: LDL ATP III CLASSIFICATION LDL less than 100 mg/dL Optimal LDL 100-129 mg/dL Near or above optimal LDL 130-159 mg/dL Borderline high LDL 160-189 mg/dL High LDL greater than 189 mg/dL Very high Performed By: #### B MP, MG, LIPID, A1C WTH eA, CBC #### [facility] [address] Triglyceride w/Reflex 100 mg/dL Normal 35-149 [facility] Comment on above: Result Comment: TRIG ATP III CLASSIFICATION TRIG less than 150 mg/dL Normal TRIG 150-199 mg/dL Borderline high TRIG 200-500 mg/dL High TRIG greater than 500 mg/dL Very high Standard traceable to the Center for Disease Conrtrol and Prevention (CDC) test method. Performed By: #### B MP, MG, LIPID, A1C WTH eA, CBC #### [address] VLDL CHOLESTEROL 20 mg/dL Normal [facility] Comment on above: Performed By: #### B MP, MG, LIPID, A1C WTH eA, CBC #### [address] Magnesiumon 03-17-2022 Magnesium [Mass/Vol] 1.6 mg/dL Normal 1.6-2.6 [facility] Comment on above: Performed By: #### B MP, MG, LIPID, A1C WTH eA, CBC #### [address] Magnesium [Mass/Vol] 1.4 mg/dL Low 1.6-2.6 [facility] Comment on above: Result Comment: PERF ORMED BY: [place] [address] PATHOLOGIST G[employer]BAL SALES DIRECTOR HYACINTH SHAH M.D. Performed By: #### B MP, MG, LIPID, A1C WTH eA, CBC #### [address] Nitrite Test strip Ql (U)Ord ered By: Paulina Alexander on 03-17-2022 Nitrite Ql (U) Negative Negative [facility] No Panel InformationOrdered By: Neno Moreira on 03-17-2022 Bedside Glucose Comment Glu2: cleaned meter [facility] Partial Thromboplastin Timeo n 03-17-2022 aPTT Coag (Bld) [Time] 37.1 s High 25.1-36.5 [facility] Comment on above: Result Comment: PERF ORMED BY: [facility] [address] [place] [address] PATHOLOGIST GLOBAL SALES DIRECTOR HYACINTH SHAH M.D. Performed By: #### B MP, MG, LIPID, A1C [facility], CBC #### [facility] [address] aPTT Coag (Bld) [Time] 31.8 s Normal 25.1-36.5 [facility] Comment on above: Result Comment: PERF ORMED BY: [place] [address] PATHOLOGIST GLOBAL SALES DIRECTOR HYACINTH SHAH M.D. Performed By: #### B MP, MG, LIPID, A1C [facility], CBC #### [facility] [address] Protein Auto test strip (U) [Mass/Vol]Ordered By: Paulina Alexander on 03-17-2022 Protein (U) [Mass/Vol] 100 mg/dL Negative [facility] Protein [Mass/volume] in Ser um or PlasmaOrdered By: Paulina Alexander on 03-17-2022 Protein [Mass/Vol] 5.6 g/dL 6.1-7.9 [facility] Prothrombin Time INRon 03-17 INR Coag (PPP) [Relative time] 1.8 {INR} Normal [facility] Comment on above: Result Comment: INR [...] MG, LIPID, A1C WTH eA, CBC #### [address] PT Coag (PPP) [Time] 20.5 s High 9.0-12.9 [facility] Comment on above: Performed By: #### B MP, MG, LIPID, A1C WTH eA, CBC #### [address] Scan and CBCon 03-17-2022 Basophils (Bld) [#/Vol] 0.0 10*3/uL Normal 0.0-0.2 [facility] Comment on above: Performed By: #### B MP, MG, LIPID, A1C WTH eA, CBC #### [address] Basophils/100 WBC (Bld) 0.2 % Normal . [facility] Comment on above: Performed By: #### B MP, MG, LIPID, A1C WTH eA, CBC #### [address] Eosinophils (Bld) [#/Vol] 0.0 10*3/uL Normal 0.0-0.45 [facility] Comment on above: Performed By: #### B MP, MG, LIPID, A1C WTH eA, CBC #### [address] Eosinophils/100 WBC (Bld) 0.0 % Normal . [facility] Comment on above: Performed By: #### B MP, MG, LIPID, A1C WTH eA, CBC #### [address] Erythrocyte distribution width (RBC) [Ratio] 13.3 % Normal 12.0-14.8 [facility] Comment on above: Performed By: #### B MP, MG, LIPID, A1C WTH eA, CBC #### [address] Hematocrit (Bld) [Volume fraction] 36.0 % Low 38.8-50.0 [facility] Comment on above: Performed By: #### B MP, MG, LIPID, A1C WTH eA, CBC #### [address] Hemoglobin (Bld) [Mass/Vol] 12.1 g/dL Low 13.0-17.0 [facility] Comment on above: Performed By: #### B MP, MG, LIPID, A1C WTH eA, CBC #### [address] Lymphocytes (Bld) [#/Vol] 0.9 10*3/uL Low 1.00-4.8 [facility] Comment on above: Performed By: #### B MP, MG, LIPID, A1C WTH eA, CBC #### [address] Lymphocytes/100 WBC (Bld) 13.3 % Normal . [facility] Comment on above: Performed By: #### B MP, MG, LIPID, A1C WTH eA, CBC #### [address] MCH (RBC) [Entitic mass] 30.0 pg Normal 27.5-35.2 [facility] Comment on above: Performed By: #### B MP, MG, LIPID, A1C WTH eA, CBC #### [address] MCV (RBC) [Entitic vol] 89.0 fL Normal 83.5-101 [facility] Comment on above: Performed By: #### B MP, MG, LIPID, A1C WTH eA, CBC #### [address] Mean Corpuscular HGB Conc 33.7 g/dL Normal 32.5-35.6 [facility] Comment on above: Performed By: #### B MP, MG, LIPID, A1C WTH eA, CBC #### [address] Monocytes (Bld) [#/Vol] 0.9 10*3/uL High 0.0-0.8 [facility] Comment on above: Performed By: #### B MP, MG, LIPID, A1C WTH eA, CBC #### [facility] [address] [place] [address] [place] Monocytes/100 WBC (Bld) 14.0 % Normal . [facility] Comment on above: Performed By: #### B MP, MG, LIPID, A1C WTH eA, CBC #### [facility] [address] [place] [address] [place] Neutrophils (Bld) [#/Vol] 4.8 10*3/uL Normal 1.8-7.7 [facility] Comment on above: Performed By: #### B MP, MG, LIPID, A1C WTH eA, CBC #### [facility] [address] Neutrophils/100 WBC (Bld) 72.5 % Normal . [facility] Comment on above: Performed By: #### B MP, MG, LIPID, A1C WTH eA, CBC #### [facility] [address] [place] [address] [place] Nucleated RBC/100 WBC (Bld) [Ratio] 0.0 % Normal 0-0.5 [facility] Comment on above: Performed By: #### B MP, MG, LIPID, A1C WTH eA, CBC #### [facility] [address] [place] [address] [place] Platelet Estimate Decreased Normal [facility] Comment on above: Performed By: #### B MP, MG, LIPID, A1C WTH eA, CBC #### [facility] [address] [place] [address] [place] Platelet mean volume (Bld) [Entitic vol] 8.0 fL Normal 6.6-10.1 [facility] Comment on above: Performed By: #### B MP, MG, LIPID, A1C WTH eA, CBC #### [facility] [address] [place] [address] [place] Platelet Morphology Normal Normal Normal [facility] Comment on above: Result Comment: PERF ORMED BY: [place] [address] PATHOLOGIST GLOBAL SALES DIRECTOR HYACINTH SHAH M.D. Performed By: #### B MP, MG, LIPID, A1C WTH eA, CBC #### [facility] [address] Platelets (Bld) [#/Vol] 123 10*3/uL Low 150-450 [facility] Comment on above: Performed By: #### B MP, MG, LIPID, A1C WTH eA, CBC #### [facility] [address] RBC (Bld) [#/Vol] 4.04 10*6/uL Normal 3.90-5.60 [facility] Comment on above: Performed By: #### B MP, MG, LIPID, A1C WTH eA, CBC #### [facility] [address] RBC morphology finding Nom (Bld) Normal Normal [facility] Comment on above: Performed By: #### B MP, MG, LIPID, A1C WTH eA, CBC #### [address] WBC (Bld) [#/Vol] 6.7 10*3/uL Normal 4.5-11.0 [facility] Comment on above: Performed By: #### B MP, MG, LIPID, A1C WTH eA, CBC #### [address] Serum or plasma alanine gamez otransferase measurement without P-5'-P (enzymatic activiOrdered By: Paulina Alexander on 03-17-2022 ALT No additional P-5'-P [Catalytic activity/Vol] 19 U/L 10-60 [facility] Serum or plasma albumin/glob ulin mass ratioOrdered By: Paulina Alexander on 03-17-2022 Albumin/Globulin [Mass ratio] 0.8 {ratio} [facility] Serum or plasma alkaline adriane sphatase measurement (enzymatic activity/volume)Ordered By: Paulina Alexander on 03-17-2022 ALP [Catalytic activity/Vol] 56 U/L 32-92 [facility] Serum or plasma aspartate am inotransferase measurement (enzymatic activity/volume)Ordered By: Paulina Alexander on 03-17-2022 AST [Catalytic activity/Vol] 37 U/L 10-42 [facility] Serum or plasma high density lipoprotein (HDL) cholesterol measurementOrdered By: Paulina Alexander on 03-17-2022 Cholesterol in HDL [Mass/Vol] 18 mg/dL 29-71 [facility] Comment on above: HDL CHOL ATP-III CLA SSIFICATION Cardiovascular RiskHDL > or equal to 60 mg/dL LOWHDL < 40 mg/dL HIGH Serum or plasma total biliru bin measurement (mass/volume)Ordered By: Paulina Alexander on 03-17-2022 Bilirubin [Mass/Vol] 0.6 mg/dL 0.3-1.2 [facility] Serum or plasma total choles terol/high density lipoprotein (HDL) cholesterol mass ratOrdered By: Paulina Alexander on 03-17-2022 Cholesterol.total/Chol esterol in HDL [Mass ratio] 2.8 {ratio} <5.0 [facility] Specific gravity Auto test s trip (U) [Rel density]Ordered By: Paulina Alexander on 03-17-2022 Specific gravity (U) [Rel density] 1.017 1.001-1.03 0 [facility] Squamous epithelial cells de tection in urine sediment by light microscopyOrdered By: Paulina Alexander on 03-17-2022 Epithelial cells.squamous LM Ql (Urine sed) 0-1 [HPF] 0-2 [facility] Triglyceride [Mass/volume] i n Serum or PlasmaOrdered By: Paulina Alexander on 03-17-2022 Triglyceride [Mass/Vol] 100 mg/dL 35-149 [facility] Comment on above: TRIG ATP III CLASSIF ICATIONTRIG less than 150 mg/dL NormalTRIG 150-199 mg/dL Borderline highTRIG 200-500 mg/dL High TRIG greater than 500 mg/dL Very highStandard traceable to the Center for Disease Conrtrol and Prevention (CDC) test method. Troponin I High Sensitivityo n 03-17-2022 Troponin I High Sensitivity 5958 pg/mL Off scale high 0-20 [facility] Comment on above: Result Comment: Resu lts called at 1043 on 03/17/22 PERFORMED BY: [place] [address] PATHOLOGIST GLOBAL SALES DIRECTOR HYACINTH SHAH M.D. Performed By: #### B MP, MG, LIPID, A1C WTH eA, CBC #### [facility] [address] [place] [address] [place] Troponin I High Sensitivity 2625 pg/mL Off scale high 0-20 [facility] Comment on above: Result Comment: Resu lts called at 0445 on 03/17/22 PERFORMED BY: [place] [address] PATHOLOGIST GLOBAL SALES DIRECTOR HYACINTH SHAH M.D. Performed By: #### B MP, MG, LIPID, A1C WTH eA, CBC #### [facility] [address] [place] [address] [place] Troponin I High Sensitivity 756 pg/mL Off scale high 0-20 [facility] Comment on above: Result Comment: Resu lts called at 0228 on 03/17/22 PERFORMED BY: [place] [address] PATHOLOGIST GLOBAL SALES DIRECTOR HYACINTH SHAH M.D. Performed By: #### B MP, MG, LIPID, A1C WTH eA, CBC #### [facility] [address] [place] [id number] [facility] Urine Cultureon 03-17-2022 Bacteria identified Cx Nom (U) <9,000 colonies/ml mixed bacterial skin contaminants 2 Days PERFORMED BY: [place] [address] PATHOLOGIST GLOBAL SALES DIRECTOR HYACINTH SHAH M.D. [facility] Comment on above: Performed By: #### C UU #### [facility] [address] [place] [address] Urine bacteria detection by automated methodOrdered By: Paulina Alexander on 03-17-2022 Bacteria Auto Ql (U) 2+ None Seen [facility] Comment on above: --- 03/17/22 0600 -- -Ur Bact previously reported as: None Seen Urine clarity by refractomet ry automatedOrdered By: Paulina Alexander on 03-17-2022 Clarity Refractometry automated (U) Turbid Clear [facility] Urine glucose measurement by automated test strip (mass/volume)Ordered By: Paulina Alexander on 03-17-2022 Glucose Auto test strip (U) [Mass/Vol] 250 mg/dL Normal [facility] Urine hemoglobin detection b y automated test stripOrdered By: Paulina Alexander on 03-17-2022 Hemoglobin Auto test strip Ql (U) 3+ Negative [facility] Urine leukocyte esterase det ection by automated test stripOrdered By: Paulina Alexander on 03-17-2022 Leukocyte esterase Auto test strip Ql (U) 4+ Negative [facility] Urobilinogen Auto test strip (U) [Mass/Vol]Ordered By: Paulina Alexander on 03-17-2022 Urobilinogen (U) [Mass/Vol] Normal mg/dL Normal [facility] Yeast detection in urine sed iment by light microscopyOrdered By: Paulina Alexander on 03-17-2022 Yeast LM Ql (Urine sed) None seen [HPF] None Seen [facility] pH Auto test strip (U)Ordere d By: Paulina Alexander on 03-17-2022 pH (U) 5.5 [pH] 5.0-9.0 [facility] ACETONE SERUMon 03-16-2022 ACETONE Negative Normal NEGATIVE [facility] Comment on above: Performed By: #### S EDR #### [facility] [address] [place] [address] Dr. Julius Greer BLOOD CULTURE ID PANELon A. baumannii Not detected Normal NOT DETECTED [facility] Comment on above: Performed By: #### C EMETERIO #### [facility] [address] [place] [address] Dr. Julius Greer Bacteriodes fragilis Not detected Normal NOT DETECTED [facility] Comment on above: Performed By: #### C EMETERIO #### [facility] [address] [place] [address] Dr. Julius Greer BCID CONTROLS PASSED Normal [facility] Comment on above: Performed By: #### C BCMAN #### [facility] [address] [place] [address] [address] Julius GAMBLEDBTHD BLOOD CULTURE BOTTLE INFORMATION [facility] Comment on above: Performed By: #### C BCMAN #### [facility] [address] [place] [address] [address] Julius Greer BCIDHD1 ANTIMICROBIAL RESIST ANCE GENES [facility] Comment on above: Performed By: #### C BCMAN #### [facility] [address] [place] [address] [address] Julius Greer BCIDHD2 SEE BELOW [facility] Comment on above: Result Comment: Note : Antimicrobial resitance can occur via multiple mechanisms. A Not Detected result for the [employer] antomicrobial resistance gene assays does not indicate antimicrobial susceptibility. Subculturing is required for species identification and susceptibility testing of isolates. Performed By: #### C BCMAN #### [facility] [address] [place] [address] Dr. Julius Greer BCIDHD3 Positive [facility] Comment on above: Performed By: #### C BCMAN #### [facility] [address] [place] [address] Dr. Julius Greer BCIDHD4 Negative [facility] Comment on above: Performed By: #### C BCMAN #### [facility] [address] [place] [address] Dr. Julius Greer BCIDHD5 YEAST [facility] Comment on above: Performed By: #### C BCMAN #### [facility] [address] [place] [address] Dr. Julius Greer Bottle Set: Set 2 [facility] Comment on above: Performed By: #### C BCMAN #### [facility] [address] [place] [address] Dr. Juilus Greer Bottle: Aerobic [facility] Comment on above: Performed By: #### C BCMAN #### [facility] [address] [place] [address] Dr. Julius rGeer C. neoformans/gattii Not detected Normal NOT DETECTED [facility] Comment on above: Performed By: #### C BCMAN #### [facility] [address] [place] [address] Dr. Julius Greer Sally albicans Not detected Normal NOT DETECTED [facility] Comment on above: Performed By: #### C BCMAN #### [facility] [address] [place] [address] Dr. Julius Greer Sally auris Not detected Normal NOT DETECTED [facility] Comment on above: Performed By: #### C BCMAN #### [facility] [address] [place] [address] Dr. Julius Greer Sally glabrata Not detected Normal NOT DETECTED [facility] Comment on above: Performed By: #### C BCMAN #### [facility] [address] [place] [address] Dr. Julius Greer Sally Krusei Not detected Normal NOT DETECTED [facility] Comment on above: Performed By: #### C BCMAN #### [facility] [address] [place] [address] Dr. Julius Greer Sally Parapsilosis Not detected Normal NOT DETECTED [facility] Comment on above: Performed By: #### C BCMAN #### [facility] [address] [place] [address] Dr. Julius Greer Sally Tropicalis Not detected Normal NOT DETECTED [facility] Comment on above: Performed By: #### C BCMAN #### [facility] [address] [place] [address] Dr. Julius Greer CTX-M Resistant Gene Not detected Normal NOT DETECTED [facility] Comment on above: Performed By: #### C BCMAN #### [facility] [address] [place] [address] Dr. Julius Greer E. Cloacae complex Not detected Normal NOT DETECTED [facility] Comment on above: Performed By: #### C BCMAN #### [facility] [address] [place] [address] Dr. Julius Greer E. faecalis Not detected Normal NOT DETECTED [facility] Comment on above: Performed By: #### C BCMAN #### [facility] [address] [place] [address] Dr. Julius Greer E. faecium Not detected Normal NOT DETECTED [facility] Comment on above: Performed By: #### C BCMAN #### [facility] [address] [place] [address] Dr. Julius Greer Enterobacteriaceae Detected Critically abnormal NOT DETECTED [facility] Comment on above: Performed By: #### C BCMAN #### [facility] [address] [place] [address] Dr. Julius Greer Escherichia coli Not detected Normal NOT DETECTED [facility] Comment on above: Performed By: #### C BCMAN #### [facility] [address] [place] [address] Dr. Julius Greer H. influenzae Not detected Normal NOT DETECTED [facility] Comment on above: Performed By: #### C BCMAN #### [facility] [address] [place] [address] Dr. Julius Greer IMP Resistant Gene Not detected Normal NOT DETECTED [facility] Comment on above: Performed By: #### C BCMAN #### [facility] [address] [place] [address] Dr. Julius Greer K. oxytoca Not detected Normal NOT DETECTED [facility] Comment on above: Performed By: #### C BCMAN #### [facility] [address] [place] [address] Dr. Julius Greer K. pneumoniae Not detected Normal NOT DETECTED [facility] Comment on above: Performed By: #### C BCMAN #### [facility] [address] [place] [address] Dr. Julius Greer Klebsiella aerogenes Not detected Normal NOT DETECTED [facility] Comment on above: Performed By: #### C BCMAN #### [facility] [address] [place] [address] Dr. Julius Greer KPC Resistant Gene Not detected Normal NOT DETECTED [facility] Comment on above: Performed By: #### C BCMAN #### [facility] [address] [place] [address] Dr. Julius Greer List. monocytogenes Not detected Normal NOT DETECTED [facility] Comment on above: Performed By: #### C BCMAN #### [facility] [address] [place] [address] Dr. Julius Greer Mcr-1 Resistant Gene Not Applicable Normal NOT DETECTED [facility] Comment on above: Performed By: #### C BCMAN #### [facility] [address] [place] [address] Dr. Julius Greer mecA/C Not Applicable Normal NOT DETECTED [facility] Comment on above: Performed By: #### C BCMAN #### [facility] [address] [place] [address] Dr. Julius Greer mecA/C MREJ Not Applicable Normal NOT DETECTED [facility] Comment on above: Performed By: #### C BCMAN #### [facility] [address] [place] [address] Dr. Julius Greer N. meningitidis Not detected Normal NOT DETECTED [facility] Comment on above: Performed By: #### C BCMAN #### [facility] [address] [place] [address] Dr. Julius Greer NDM Resistant Gene Not detected Normal NOT DETECTED [facility] Comment on above: Performed By: #### C BCMAN #### [facility] [address] [place] [address] Dr. Julius Greer Oxa-48-like Not detected Normal NOT DETECTED [facility] Comment on above: Performed By: #### C BCMAN #### [facility] [address] [place] [address] Dr. Julius Greer Proteus Detected Critically abnormal NOT DETECTED [facility] Comment on above: Performed By: #### C BCMAN #### [facility] [address] [place] [address] Dr. Julius Greer Pseud. aeruginosa Not detected Normal NOT DETECTED [facility] Comment on above: Performed By: #### C BCMAN #### [facility] [address] [place] [address] Dr. Julius Greer S. maltophilia Not detected Normal NOT DETECTED [facility] Comment on above: Performed By: #### C BCMAN #### [facility] [address] [place] [address] Dr. Julius Greer Salmonella Not detected Normal NOT DETECTED [facility] Comment on above: Performed By: #### C BCMAN #### [facility] [address] [place] [address] Dr. Julius Greer Seratia marcescens Not detected Normal NOT DETECTED [facility] Comment on above: Performed By: #### C BCMAN #### [facility] [address] [place] [address] Dr. Julius Greer Site: Rt Wrist Normal [facility] Comment on above: Performed By: #### C BCMAN #### [facility] [address] [place] [address] Dr. Julius Greer Staph. aureus Not detected Normal NOT DETECTED [facility] Comment on above: Performed By: #### C BCMAN #### [facility] [address] [place] [address] Dr. Julius Greer Staph. epidermidis Not detected Normal NOT DETECTED [facility] Comment on above: Performed By: #### C BCMAN #### [facility] [address] [place] [address] Dr. Julius Greer Staph. lugdunensis Not detected Normal NOT DETECTED [facility] Comment on above: Performed By: #### C BCMAN #### [facility] [address] [place] [address] Dr. Julius Greer Staphylococcus Not detected Normal NOT DETECTED [facility] Comment on above: Performed By: #### C BCMAN #### [facility] [address] [place] [address] Dr. Julius Greer Strep. agalactiae Not detected Normal NOT DETECTED [facility] Comment on above: Performed By: #### C BCMAN #### [facility] [address] [place] [address] Dr. Julius Greer Strep. pneumoniae Not detected Normal NOT DETECTED [facility] Comment on above: Performed By: #### C BCMAN #### [facility] [address] [place] [address] Dr. Julius Greer Strep. pyogenes Not detected Normal NOT DETECTED [facility] Comment on above: Performed By: #### C BCMAN #### [facility] [address] [place] [address] Dr. Julius Greer Streptococcus Not detected Normal NOT DETECTED [facility] Comment on above: Performed By: #### C BCSARITA #### [facility] [address] [place] [address] Dr. Julius Greer Alejandra/B Resist. Gene Not Applicable Normal NOT DETECTED [facility] Comment on above: Performed By: #### C BCMAN #### [facility] [address] [place] [address] Dr. Julius Greer VIM Resistant Gene Not detected Normal NOT DETECTED [facility] Comment on above: Performed By: #### C FRANCMAN #### [facility] [address] [place] [address] Dr. Julius Greer CARDIAC MARKUS 3-6on 2 CK [Catalytic activity/Vol] 130 U/L Normal 39-308 [facility] Comment on above: Performed By: #### C BCSARITA #### [facility] [address] [place] [address] Dr. Julius Greer CK.MB [Mass/Vol] 3.69 ng/mL Critically high <=3.60 [facility] Comment on above: Performed By: #### C EMETERIO #### [facility] [address] [place] [address] Dr. Julius Greer HSTROP 603.2 pg/mL Critically high 4.0-76.1 [facility] Comment on above: Result Comment: CUT- OFF POINTS HAVE BEEN ESTABLISHED BASED ON THE FOURTH UNIVERSAL DEFINITIONS OF MYOCARDIAL INFARCTION. THE UPPER REFERENCE LIMIT (URL) OF TROPONIN, DEFINED THE 99TH PERCENTILE OF cTnI DISTRIBUTION IN A REFERENCE POPULATION, HAS BEEN CONFIRMED THE DECISION THRESHOLD FOR AR DIAGNOSIS. Performed By: #### C BCMAN #### [facility] [address] [place] [address] Dr. Julius Greer CBC W MANUAL DIFFon 03-16-20 22 ATYPICAL LYMPH # 0.04 103/ul Normal [facility] Comment on above: Performed By: #### C BCMAN #### [facility] [address] [place] [address] Dr. Julius Greer ATYPICAL LYMPH % 1 % Normal [facility] Comment on above: Performed By: #### C EMETERIO #### [facility] [address] [place] [address] Dr. Julius Greer BAND # 0.2 103/ul Normal 0.0-0.3 [facility] Comment on above: Performed By: #### C EMETERIO #### [facility] [address] [place] [address] Dr. Julius Greer BAND % 5 % Normal 0-5 [facility] Comment on above: Performed By: #### C EMETERIO #### [facility] [address] [place] [address] Dr. Julius Greer BASOM # 0.00 103/ul Normal 0.00-0.10 [facility] Comment on above: Performed By: #### C EMETERIO #### [facility] [address] [place] [address] Dr. Julius Greer BASOM % 0.0 % Critically low 0.2-2.0 [facility] Comment on above: Performed By: #### C EMETERIO #### [facility] [address] [place] [address] Dr. Julius Greer BLAST # Normal [facility] Comment on above: Performed By: #### C EMETERIO #### [facility] [address] [place] [address] Dr. Julius Greer BLAST % Normal [facility] Comment on above: Performed By: #### C EMETERIO #### [facility] [address] [place] [address] Dr. Julius Greer CORRECTED WBC Normal 4.0-11.[address] [facility] Comment on above: Performed By: #### C EMETERIO #### [facility] [address] [place] [address] Dr. Julius Greer EOS # 0.00 103/ul Normal 0.00-0.70 [facility] Comment on above: Performed By: #### C EMETERIO #### [facility] [address] [address] [address] Julius Greer EOS% 0.0 % Critically low 0.9-7.0 [facility] Comment on above: Performed By: #### C EMETERIO #### [facility] [address] [address] [address] Julius Greer HCT 39.8 % Critically low 42.0-54.0 [facility] Comment on above: Performed By: #### C EMETERIO #### [facility] [address] [address] [address] Julius Greer HGB 13.3 g/dl Critically low 14.0-18.0 [facility] Comment on above: Performed By: #### C EMETERIO #### [facility] [address] [place] [address] Dr. Julius Greer LYMPHM # 0.43 103/ul Critically low 1.20-3.80 [facility] Comment on above: Performed By: #### C EMETERIO #### [facility] [address] [address] [address] Julius Greer LYMPHM% 11.0 % Critically low 20.5-60.0 [facility] Comment on above: Performed By: #### C EMETERIO #### [facility] [address] [place] [address] Dr. Julius Greer MCH 29.9 pg Normal 25.9-34.0 [facility] Comment on above: Performed By: #### C EMETERIO #### [facility] [address] [address] [address] Julius Greer MCHC 33.4 g/dl Normal 29.9-35.2 [facility] Comment on above: Performed By: #### C EMETERIO #### [facility] [address] [address] [address] Julius Greer MCV 89.4 fL Normal 80.0-94.0 [facility] Comment on above: Performed By: #### Zulema STORM #### [facility] [address] [place] [address] Dr. Julius Greer METAMYELOCYTE # Normal [facility] Comment on above: Performed By: #### C EMETERIO #### [facility] [address] [address] [address] Julius Greer METAMYELOCYTE % Normal [facility] Comment on above: Performed By: #### C EMETERIO #### [facility] [address] [address] [address] Julius Greer MONOM# 0.08 103/ul Critically low 0.30-0.80 [facility] Comment on above: Performed By: #### C EMETERIO #### [facility] [address] [address] [address] Julius Greer MONOM% 2.0 % Normal 1.7-12.0 [facility] Comment on above: Performed By: #### C EMETERIO #### [facility] [address] [place] [address] Dr. Julius Greer MPV 9.6 fL Normal 9.5-13.5 [facility] Comment on above: Performed By: #### C EMETERIO #### [facility] [address] [address] [address] Julius Greer MYELOCYTE # Normal [facility] Comment on above: Performed By: #### C EMETERIO #### [facility] [address] [place] [address] Dr. Julius Greer MYELOCYTE % Normal [facility] Comment on above: Performed By: #### C EMETERIO #### [facility] [address] [place] [address] Dr. Julius Greer NRBC Normal [facility] Comment on above: Performed By: #### C EMETERIO #### [facility] [address] [address] [address] Julius Greer PLT 130 103/ul Critically low 150-450 [facility] Comment on above: Performed By: #### C EMETERIO #### [facility] [address] [place] [address] Dr. Julius Greer RBC 4.45 106/ul Critically low 4.70-6.10 [facility] Comment on above: Performed By: #### C BCMAN #### [facility] [address] [place], [place] [address] Dr. Julius Greer RDW 12.1 % Normal 11.0-15.0 [facility] Comment on above: Performed By: #### C BCMAN #### [facility] [address] [place], [place] [address] Dr. Julius Greer SEG # 3.16 103/ul Normal 1.40-6.50 [facility] Comment on above: Performed By: #### C BCMAN #### [facility] [address] [place], [place] [address] Dr. Julius Greer SEG % 81.0 % Critically high 43.0-75.0 [facility] Comment on above: Performed By: #### C BCMAN #### [facility] [address] [place], [place] [address] Dr. Julius Greer WBC 3.9 103/ul Critically low 4.0-11.0 [facility] Comment on above: Performed By: #### C BCMAN #### [facility] [address] [place], [place] [address] Dr. Julius Greer CRPon 03-16-2022 CRP 27.4 mg/dL Critically high <=1.0 [facility] Comment on above: Performed By: #### S EDR #### [facility] [address] [place], [place] [address] ABD/PELVIS WO CONon [...] DORCAS PATEL Date: 2022-03-16 18:46 Normal [facility] Covid-19 PCR ([facility])on SARS-CoV-2 (COVID-19) RNA RAYMON+probe Ql (Unsp spec) Not detected Normal NOT DETECTED [facility] Comment on above: Result Comment: When diagnostic [...] for this test is supported by the Consumer Affairs Director of Health and Human Service's declaration that [...] longer be used). Performed By: #### [facility] #### [facility] [address] [place] [address] Dr. Julius HIGUERA URINE PROFILEon 2 Bilirubin Ql (U) Negative Normal NEGATIVE [facility] Comment on above: Performed By: #### C BCWE[place] #### [facility] [address] [address] [address] Julius Greer Clarity (U) CLEAR Normal CLEAR [facility] Comment on above: Performed By: #### C EMETERIO #### [facility] [address] [address] [address] Julius Greer Color (U) DK. ORANGE Abnormal YELLOW [facility] Comment on above: Performed By: #### C EMETERIO #### [facility] [address] [address] [address] Julius Greer ERUAHD A micrscopic examina tion will be performed if indicated. Normal [facility] Comment on above: Performed By: #### C EMETERIO #### [facility] [address] [place] [address] Dr. Julius Greer Glucose Ql (U) 500 mg/dl Abnormal NEGATIVE [facility] Comment on above: Performed By: #### C EMETERIO #### [facility] [address] [address] [address] Julius Greer Hemoglobin Ql (U) LARGE Abnormal NEGATIVE [facility] Comment on above: Performed By: #### Zulema STORM #### [facility] [address] [address] [address] Julius Greer Ketones Ql (U) 15 mg/dl Abnormal NEGATIVE [facility] Comment on above: Performed By: #### C EMETERIO #### [facility] [address] [address] [address] Julius Greer LEUKOCYTES SMALL Abnormal NEGATIVE [facility] Comment on above: Performed By: #### C EMETERIO #### [facility] [address] [address] [address] Julius Greer Nitrite Ql (U) Positive Abnormal NEGATIVE [facility] Comment on above: Performed By: #### C EMETERIO #### [facility] [address] [address] [address] Julius Greer pH (U) 8.5 [pH] Normal 5-9 [facility] Comment on above: Performed By: #### C EMETERIO #### [facility] [address] [place] [address] Dr. Julius Greer Protein (U) [Mass/Vol] 100 mg/dL Abnormal NEGAT HAYDEE/ TRACE [facility] Comment on above: Performed By: #### C EMETERIO #### [facility] [address] [place] [address] Dr. Julius Greer SPEC GRAVITY 1.020 Normal 1.005-<=1. 025 [facility] Comment on above: Performed By: #### C EMETERIO #### [facility] [address] [place] [address] Dr. Julius Greer UR MICRO IND INDICATED Normal [facility] Comment on above: Performed By: #### C EMETERIO #### [facility] [address] [place] [address] Dr. Julius Greer Urobilinogen Qn (U) 1.0 {Wilson'U}/dL Normal 0.2 - 1. 0 [facility] Comment on above: Performed By: #### C EMETERIO #### [facility] [address] [place] [address] Dr. Julius Greer LACTATE/LACTIC ACIDon 2021 Lactate [Moles/Vol] 2.3 mmol/L Critically high 0.4-1.9 [facility] Comment on above: Performed By: #### C EMETERIO #### [facility] [address] [place] [address] Dr. Julius Greer Lactate [Moles/Vol] 4.1 mmol/L Critically high 0.4-1.9 [facility] Comment on above: Performed By: #### L ACT #### [facility] [address] [place] [address] Dr. Julius Greer PH VENOUS BLOODon 03-16-2022 PCO2 VENOUS 29.6 mmHg Critically low 40.0-52.0 [facility] Comment on above: Performed By: #### P HVEN #### [facility] [address] [place] [address] Dr. Julius Greer pH VENOUS 7.428 Normal 7.330-7.43 0 [facility] Comment on above: Performed By: #### P HVEN #### [facility] [address] [place] [address] Dr. Julius Greer POINT OF CARE GLUCOSEon Glucose [Mass/Vol] 314 mg/dL Critically high 74-106 [facility] Comment on above: Performed By: #### P OCGLUC #### [facility] [address] [place] [address] Dr. Julius Greer PROF 14(COMP METB)on 022 Albumin [Mass/Vol] 2.8 g/dL Critically low 3.4-5.0 [facility] Comment on above: Performed By: #### S EDR #### [facility] [address] [place] [address] Dr. Julius Greer Albumin/Globulin [Mass ratio] 0.8 {ratio} Normal [facility] Comment on above: Performed By: #### S EDR #### [facility] [address] [place] [address] Dr. Julius Greer ALP [Catalytic activity/Vol] 80 U/L Normal 46-116 [facility] Comment on above: Performed By: #### S EDR #### [facility] [address] [place] [address] Dr. Julius Greer ALT [Catalytic activity/Vol] 14 U/L Critically low 16-63 [facility] Comment on above: Performed By: #### S EDR #### [facility] [address] [place] [address] Dr. Julius Greer Anion gap [Moles/Vol] 14.7 mmol/L Normal [facility] Comment on above: Performed By: #### S EDR #### [facility] [address] [place] [address] Dr. Julius Greer AST [Catalytic activity/Vol] 20 U/L Normal 15-37 [facility] Comment on above: Performed By: #### S EDR #### [facility] [address] [place] [address] Dr. Julius Greer Bilirubin [Mass/Vol] 0.6 mg/dL Normal 0.2-1.0 [facility] Comment on above: Performed By: #### S EDR #### [facility] [address] [address] [address] Julius Greer Calcium [Mass/Vol] 8.5 mg/dL Normal 8.5-10.1 [facility] Comment on above: Performed By: #### S EDR #### [facility] [address] [address] [address] Julius Greer Chloride [Moles/Vol] 96 mmol/L Critically low 98-107 [facility] Comment on above: Performed By: #### S EDR #### [facility] [address] [place] [address] Dr. Julius Greer CO2 [Moles/Vol] 19.7 mmol/L Critically low 21.0-32.0 [facility] Comment on above: Performed By: #### S EDR #### [facility] [address] [place] [address] Dr. Julius Greer Creatinine [Mass/Vol] 1.26 mg/dL Normal 0.70-1.30 [facility] Comment on above: Performed By: #### S EDR #### [facility] [address] [place] [address] Dr. Julius Greer EGFR-AF CANADIAN >60 Normal >=60 [facility] Comment on above: Performed By: #### S EDR #### [facility] [address] [place] [address] Dr. Julius Greer EGFR-NON AF CANADIAN 56 mL/min/1.73m2 Critically low >=60 [facility] Comment on above: Performed By: #### S EDR #### [facility] [address] [place] [address] Dr. Julius Greer Globulin (S) [Mass/Vol] 3.6 g/dL Normal [facility] Comment on above: Performed By: #### S EDR #### [facility] [address] [place] [address] Dr. Julius Greer Glucose [Mass/Vol] 311 mg/dL Critically high 74-106 [facility] Comment on above: Performed By: #### S EDR #### [facility] [address] [address] [address] Julius Greer Potassium [Moles/Vol] 3.4 mmol/L Critically low 3.5-5.1 [facility] Comment on above: Performed By: #### S EDR #### [facility] [address] [address] [address] Julius Greer Protein [Mass/Vol] 6.4 g/dL Normal 6.4-8.2 [facility] Comment on above: Performed By: #### S EDR #### [facility] [address] [address] [address] Julius Greer Sodium [Moles/Vol] 127 mmol/L Critically low 136-145 [facility] Comment on above: Performed By: #### S EDR #### [facility] [address] [address] [address] Julius Greer Urea nitrogen [Mass/Vol] 19.0 mg/dL Critically high 7.0-18.0 [facility] Comment on above: Performed By: #### S EDR #### [facility] [address] [address] [address] Julius Greer Urea nitrogen/Creatinine [Mass ratio] 15.1 mg/mg Normal [facility] Comment on above: Performed By: #### S EDR #### [facility] [address] [address] [address] Julius Greer PROTIMEon 03-16-2022 INR Coag (PPP) [Relative time] 1.38 {INR} Normal [facility] Comment on above: Performed By: #### P T, PTT #### [facility] [address] [place] [address] Dr. Julius Greer INR GUIDELINES SEE BELOW Normal [facility] Comment on above: Result Comment: PETROS RED INR: 2.0 - 3.0 CONDITIONS NOT LISTED BELOW 2.5 - 3.5 FOR PROSTHETIC HEART VALVE REPLACEMENT 2.5 - 3.5 RECURRENT THROMBOSIS Performed By: #### P T, PTT #### [facility] [address] [address] [address] Julius Greer PT Coag (PPP) [Time] 14.6 s Critically high 9.0-11.6 [facility] Comment on above: Performed By: #### P T, PTT #### [facility] [address] [place] [address] Dr. Julius Greer PTTon 03-16-2022 aPTT Coag (Bld) [Time] 36.2 s Normal 22.3-36.2 [facility] Comment on above: Performed By: #### P T, PTT #### [facility] [address] [place] [address] Dr. Julius Greer [facility] SED [facility]ATE 62 mm/hr Critically high <=20 [facility] Comment on above: Performed By: #### S EDR #### [facility] [address] [place] [address] Dr. Julius Greer TROPONIN, HIGH SENSITIVITYon 03-16-2022 HSTROP 651.3 pg/mL Critically high 4.0-76.1 [facility] Comment on above: Result Comment: CUT- OFF POINTS HAVE BEEN ESTABLISHED BASED ON THE FOURTH UNIVERSAL DEFINITIONS OF MYOCARDIAL INFARCTION. THE UPPER REFERENCE LIMIT (URL) OF TROPONIN, DEFINED THE 99TH PERCENTILE OF cTnI DISTRIBUTION IN A REFERENCE POPULATION, HAS BEEN CONFIRMED THE DECISION THRESHOLD FOR AR DIAGNOSIS. Performed By: #### S EDR #### [facility] [address] [place] [address] Dr. Julius Greer URINE MICROSCOPIC ONLYon BACTERIA TRACE Abnormal NONE SEEN [facility] Comment on above: Performed By: #### C BCMAN #### [facility] [address] [place] [address] Dr. Julius Greer Bacteria identified Cx Nom (U) INDICATED Normal [facility] Comment on above: Performed By: #### C BCMAN #### [facility] [address] [place] [address] Dr. Julius Greer CAST SEEN Abnormal NONE SEEN [facility] Comment on above: Performed By: #### C BCMAN #### [facility] [address] [place] [address] Dr. Julius Greer Crystals LM Nom (Urine sed) NONE SEEN Normal NONE SEEN [facility] Comment on above: Performed By: #### C BCMAN #### [facility] [address] [place] [address] Dr. Julius Greer Epithelial cells LM Ql (Urine sed) FEW Abnormal NONE SEEN /RARE [facility] Comment on above: Performed By: #### C BCMAN #### [facility] [address] [place] [address] Dr. Julius Greer HYALINE CAST RARE Normal [facility] Comment on above: Performed By: #### C BCMAN #### [facility] [address] [place] [address] Dr. Julius Greer MUCOUS NONE SEEN Normal NONE SEEN [facility] Comment on above: Performed By: #### C BCMAN #### [facility] [address] [place] [address] Dr. Julius Greer RBC 0-2 Normal 0-2 [facility] Comment on above: Performed By: #### C BCMAN #### [facility] [address] [place] [address] Dr. Julius Greer XR CHEST 1 Von [...] Marc SHEARER Date: 2022-03-16 20:19 Normal [facility] CT ABD/PELV WO W CONon 03-06 CT [...] OLIVIA SERRANO Date: 2022-03-06 07:43 Normal [facility] CREATININEon 03-03-2022 Creatinine [Mass/Vol] 0.83 mg/dL Normal 0.70-1.30 [facility] Comment on above: Performed By: #### C STU #### [facility] [address] [address] [address] Julius Greer EGFR-AF CANADIAN >60 Normal >=60 [facility] Comment on above: Performed By: #### C STU #### [facility] [address] [address] [address] Julius Greer EGFR-NON AF CANADIAN >60 Normal >=60 [facility] Comment on above: Performed By: #### C STU #### [facility] [address] [address] [address] Julius Greer PTon 12-16-2021 INR Coag (PPP) [Relative time] 1.5 {INR} Normal [facility] Comment on above: Result Comment: Non-therapeutic Range: INR = 0.9-1.2 Therapeutic Range: Moderate Anticoagulant Intensity: INR = 2.0-3.0 High Anticoagulant Intensity: INR = 2.5-3.5 Performed By: #### P T #### [facility] [address] [place] [address] [place] [address] [employer] Tester: Michael Méndez MD PT Coag (PPP) [Time] 17.9 s High 11.5-14.2 [facility] Comment on above: Performed By: #### P T #### [address] [place] [address] [employer] Tester: Michael Méndez MD Hemoglobin A1Con 12-02-2021 Glucose [Mass/Vol] 189 mg/dL Normal [facility] Comment on above: Result Comment: The ADA and AACC recommend providing the estimated average glucose result to permit better patient understanding of their HBA1c result. Performed By: #### L IPR, GLYHGB, PSAS #### [address] [id number] [employer] Tester: Perico Murray MD #### CP, CDP #### [address] [place] [address] [employer] Tester: Michael Méndez MD HbA1c (Bld) [Mass fraction] 8.2 % High 4.0-6.0 [facility] Comment on above: Performed By: #### L IPR, GLYHGB, PSAS #### [facility] [address] [place], [place] [id number] [employer] Tester: Perico Murray MD #### CP, CDP #### [facility] [address] [place] [address] [place] [address] [employer] Tester: Michael Méndez MD CBC with Auto Differentialon 12-01-2021 Absolute Eos # 0.06 [facility] Absolute Immature Granulocyte [facility] Absolute Lymph # 1.87 [facility] Absolute Hatillo # 0.71 [facility] Basophils Absolute [facility] Basophils/100 WBC (Bld) 0 % 0 - 2 % [facility] Eosinophils/100 WBC (Bld) 1 % 1 - 4 % [facility] Hematocrit (Bld) [Volume fraction] 36.5 % Low 40.7 - 50.3 % [facility] Hemoglobin (Bld) [Mass/Vol] 12.0 g/dL Low 13 - 17 g/dL [facility] Immature granulocytes/100 WBC (Bld) 0 % 0 [facility] Interpretation and review of laboratory results Abnormal [facility] Lymphocytes/100 WBC (Bld) 22 % Low 24 - 43 % [facility] MCH (RBC) [Entitic mass] 30.6 pg 25.2 - 33.5 pg [facility] MCHC (RBC) [Mass/Vol] 32.9 g/dL 28.4 - 34.8 g/dL [facility] MCV (RBC) [Entitic vol] 93.1 fL 82.6 - 102.9 fL [facility] Monocytes/100 WBC (Bld) 8 % 3 - 12 % [facility] NRBC Automated 0.0 0.0 per 100 WBC [facility] Platelet distribution width (Bld) [Ratio] 12.4 % 11.8 - 14.4 % [facility] Platelet mean volume (Bld) [Entitic vol] 9.1 fL 8.1 - 13.5 fL [facility] Platelets (Bld) [#/Vol] 204 10*3/uL [facility] RBC (Bld) [#/Vol] 3.92 10*6/uL Low 4.21 - 5.77 m/uL [facility] Segmented neutrophils/100 WBC (Bld) 69 % High 36 - 65 % [facility] Segs Absolute 6.02 [facility] WBC (Bld) [#/Vol] 8.7 10*3/uL [facility] CBC with Diffon 12-01-2021 Abs. Basophil <0.03 Normal 0.00-0.20 [facility] Comment on above: Performed By: #### L IPR, GLYHGB, PSAS #### [address] [address] [employer] Tester: Perico Murray MD #### CP, CDP #### [address] [place] [id number] [employer] Tester: Michael Méndez MD Abs.Imm.Granulocyte <0.03 Normal 0.00-0.30 [facility] Comment on above: Performed By: #### L IPR, GLYHGB, PSAS #### [address] [id number] [employer] Tester: Perico Murray MD #### CP, CDP #### [address] [place] [phone] [employer] Tester: Michael Méndez MD Abs.Neutrophil (Seg) 6.02 k/uL Normal 1.50-8.10 [facility] Comment on above: Performed By: #### L IPR, GLYHGB, PSAS #### [address] [id number] [employer] Tester: Perico Murray MD #### CP, CDP #### [address] [place] [phone] [employer] Tester: Michael Méndez MD Basophils/100 WBC (Bld) 0 % Normal 0-2 [facility] Comment on above: Performed By: #### L IPR, GLYHGB, PSAS #### [address] [address] [employer] Tester: Perico Murray MD #### CP, CDP #### [address] [place] [phone] [employer] Tester: Michael Méndez MD Eosinophils (Bld) [#/Vol] 0.06 10*3/uL Normal 0.00-0.44 [facility] Comment on above: Performed By: #### L IPR, GLYHGB, PSAS #### [address] [address] [employer] Tester: Perico Murray MD #### CP, CDP #### [address] [place] [id number] [employer] Tester: Michael Méndez MD Eosinophils/100 WBC (Bld) 1 % Normal 1-4 [facility] Comment on above: Performed By: #### L IPR, GLYHGB, PSAS #### [address] [id number] [employer] Tester: Perico Murray MD #### CP, CDP #### [address] [place] [place] [phone] [employer] Tester: Michael Méndez MD Erythrocyte distribution width (RBC) [Ratio] 12.4 % Normal 11.8-14.4 [facility] Comment on above: Performed By: #### L IPR, GLYHGB, PSAS #### [address] [id number] [employer] Tester: Perico Murray MD #### CP, CDP #### [address] [place] [phone] [employer] Tester: Michael Méndez MD Hematocrit (Bld) [Volume fraction] 36.5 % Low 40.7-50.3 [facility] Comment on above: Performed By: #### L IPR, GLYHGB, PSAS #### [address] [address] [employer] Tester: Perico Murray MD #### CP, CDP #### [address] [place], [place] [id number] [employer] Tester: Michael Méndez MD Hemoglobin (Bld) [Mass/Vol] 12.0 g/dL Low 13.0-17.0 [facility] Comment on above: Performed By: #### L IPR, GLYHGB, PSAS #### [address] [address] [employer] Tester: Perico Murray MD #### CP, CDP #### [address] [place], [place] [phone] [employer] Tester: Michael Méndez MD Immature granulocytes/100 WBC (Bld) 0 % Normal 0 [facility] Comment on above: Performed By: #### L IPR, GLYHGB, PSAS #### [address] [address] [employer] Tester: Perico Murray MD #### CP, CDP #### [address] [place], [place] 850[address]83 [employer] Tester: Michael Méndez MD Lymphocytes (Bld) [#/Vol] 1.87 10*3/uL Normal 1.10-3.70 [facility] Comment on above: Performed By: #### L IPR, GLYHGB, PSAS #### [address] [address] [employer] Tester: Perico Murray MD #### CP, CDP #### [address] [place], [place] [phone] [employer] Tester: Michael Méndez MD Lymphocytes/100 WBC (Bld) 22 % Low 24-43 [facility] Comment on above: Performed By: #### L IPR, GLYHGB, PSAS #### [address] [address] [employer] Tester: Perico Murray MD #### CP, CDP #### [address] [place] [phone] [employer] Tester: Michael Méndez MD MCH (RBC) [Entitic mass] 30.6 pg Normal 25.2-33.5 [facility] Comment on above: Performed By: #### L IPR, GLYHGB, PSAS #### [address] [id number] [employer] Tester: Perico Murray MD #### CP, CDP #### [address] [place] [phone] [employer] Tester: Michael Méndez MD MCHC (RBC) [Mass/Vol] 32.9 g/dL Normal 28.4-34.8 [facility] Comment on above: Performed By: #### L IPR, GLYHGB, PSAS #### [place] [address] [employer] Tester: Perico Murray MD #### CP, CDP #### [address] [place] [phone] [employer] Tester: Michael Méndez MD MCV (RBC) [Entitic vol] 93.1 fL Normal 82.6-102.9 [facility] Comment on above: Performed By: #### L IPR, GLYHGB, PSAS #### [address] [id number] [employer] Tester: Perico Murray MD #### CP, CDP #### [address] [place] [phone] [employer] Tester: Michael Méndez MD Monocytes (Bld) [#/Vol] 0.71 10*3/uL Normal 0.10-1.20 [facility] Comment on above: Performed By: #### L IPR, GLYHGB, PSAS #### [address] [id number] [employer] Tester: Perico Murray MD #### CP, CDP #### [address] [place], [place] 1928583 [employer] Tester: Michael Méndez MD Monocytes/100 WBC (Bld) 8 % Normal 3-12 [facility] Comment on above: Performed By: #### L IPR, GLYHGB, PSAS #### [address] [id number] [employer] Tester: Perico Murray MD #### CP, CDP #### [facility] [address] [place] [address] Dr. [place], [place] [phone] [employer] Tester: Michael Méndez MD Neutrophil (Seg) 69 % High 36-65 [facility] Comment on above: Performed By: #### L IPR, GLYHGB, PSAS #### [address] [id number] [employer] Tester: Perico Murray MD #### CP, CDP #### [address] [place], [place] 1821783 [employer] Tester: Michael Méndez MD NRBC Automated 0.0 per 100 WBC Normal 0.0 [facility] Comment on above: Performed By: #### L IPR, GLYHGB, PSAS #### [address] [address] [employer] Tester: Perico Murray MD #### CP, CDP #### [address] [place], [place] [phone] [employer] Tester: Michael Méndez MD Platelet mean volume (Bld) [Entitic vol] 9.1 fL Normal 8.1-13.5 [facility] Comment on above: Performed By: #### L IPR, GLYHGB, PSAS #### [address] [address] [employer] Tester: Perico Murray MD #### CP, CDP #### [facility] [address] [place], [place] [phone] [employer] Tester: Michael Méndez MD Platelets (Bld) [#/Vol] 204 10*3/uL Normal 138-453 [facility] Comment on above: Performed By: #### L IPR, GLYHGB, PSAS #### [address] [place] [address] [employer] Tester: Perico Murray MD #### CP, CDP #### [facility] [address] [place], [place] [phone] [employer] Tester: Michael Méndez MD RBC (Bld) [#/Vol] 3.92 10*6/uL Low 4.21-5.77 [facility] Comment on above: Performed By: #### L IPR, GLYHGB, PSAS #### [address] [address] [employer] Tester: Perico Murray MD #### CP, CDP #### [address] [place], [place] [phone] [employer] Tester: Michael Méndez MD WBC (Bld) [#/Vol] 8.7 10*3/uL Normal 3.5-11.3 [facility] Comment on above: Performed By: #### L IPR, GLYHGB, PSAS #### [address] [address] [employer] Tester: Perico Murray MD #### CP, CDP #### [address] [place], [place] 0053183 [employer] Tester: Michael Méndez MD Comp Metabolic Profon 2021 (cont.) Normal [facility] Comment on above: Result Comment: Aver age GFR for 70 or more years old: 75 mL/min/1.73sq m Chronic Kidney Disease: <60 mL/min/1.73sq m Kidney failure: <15 mL/min/1.73sq m eGFR calculated using average adult body mass. Additional eGFR calculator available at: http://www.[employer]/multiple_crcl_2011.htm Performed By: #### L IPR, GLYHGB, PSAS #### [address] [address] [employer] Tester: Perico Murray MD #### CP, CDP #### [address] [place], [place] 1013583 [employer] Tester: Michael Méndez MD Albumin [Mass/Vol] 3.7 g/dL Normal 3.5-5.2 [facility] Comment on above: Performed By: #### L IPR, GLYHGB, PSAS #### [address] [address] [employer] Tester: Perico Murray MD #### CP, CDP #### [address] [place] [phone] [employer] Tester: Michael Ménedz MD Albumin/Glob Ratio 1.4 Normal 1.0-2.5 [facility] Comment on above: Performed By: #### L IPR, GLYHGB, PSAS #### [address] [address] [employer] Tester: Perico Murray MD #### CP, CDP #### [address] [place] [phone] [employer] Tester: Michael Méndez MD Alkaline Phos 77 U/L Normal 40-129 [facility] Comment on above: Performed By: #### L IPR, GLYHGB, PSAS #### [address] [address] [employer] Tester: Perico Murray MD #### CP, CDP #### [address] [place] [phone] [employer] Tester: Michael Méndez MD ALT [Catalytic activity/Vol] 15 U/L Normal 5-41 [facility] Comment on above: Performed By: #### L IPR, GLYHGB, PSAS #### [address] [place] [address] [employer] Tester: Perico Murray MD #### CP, CDP #### [address] [place] [phone] [employer] Tester: Michael Méndez MD Anion gap [Moles/Vol] 11 mmol/L Normal 9-17 [facility] Comment on above: Performed By: #### L IPR, GLYHGB, PSAS #### [address] [id number] [employer] Tester: Perico Murray MD #### CP, CDP #### [address] [place] [phone] [employer] Tester: Michael Méndez MD AST [Catalytic activity/Vol] 14 U/L Normal <40 [facility] Comment on above: Performed By: #### L IPR, GLYHGB, PSAS #### [address] [address] [employer] Tester: Perico Murray MD #### CP, CDP #### [address] [place] [phone] [employer] Tester: Michael Méndez MD Bilirubin [Mass/Vol] 0.35 mg/dL Normal 0.3-1.2 [facility] Comment on above: Performed By: #### L IPR, GLYHGB, PSAS #### [address] [id number] [employer] Tester: Perico Murray MD #### CP, CDP #### [address] [place] [phone] [employer] Tester: Michael Méndez MD BUN/CRE Ratio 18 Normal 9-20 [facility] Comment on above: Performed By: #### L IPR, GLYHGB, PSAS #### [address] [address] [employer] Tester: Perico Murray MD #### CP, CDP #### [facility] [address] [place] [phone] [employer] Tester: Michael Méndez MD Calcium [Mass/Vol] 8.8 mg/dL Normal 8.6-10.4 [facility] Comment on above: Performed By: #### L IPR, GLYHGB, PSAS #### [address] [address] [employer] Tester: Perico Murray MD #### CP, CDP #### [address] [place] [phone] [employer] Tester: Michael Méndez MD Chloride [Moles/Vol] 102 mmol/L Normal 98-107 [facility] Comment on above: Performed By: #### L IPR, GLYHGB, PSAS #### [address] [address] [employer] Tester: Perico Murray MD #### CP, CDP #### [address] [place] [phone] [employer] Tester: Michael Méndez MD CO2 [Moles/Vol] 25 mmol/L Normal 20-31 [facility] Comment on above: Performed By: #### L IPR, GLYHGB, PSAS #### [address] [address] [employer] Tester: Perico Murray MD #### CP, CDP #### [address] [place] [phone] [employer] Tester: Michael Méndez MD Creatinine [Mass/Vol] 0.74 mg/dL Normal 0.70-1.20 [facility] Comment on above: Performed By: #### L IPR, GLYHGB, PSAS #### [address] [place] [address] [employer] Tester: Perico Murray MD #### CP, CDP #### [facility] [address] [place], [place] [id number] [employer] Tester: Michael Méndez MD GFR, Amer >60 Normal >60 [facility] Comment on above: Performed By: #### L IPR, GLYHGB, PSAS #### [address] [address] [employer] Tester: Perico Murray MD #### CP, CDP #### [facility] [address] [place] [address] [place] [address] [employer]spring Tester: Michael Méndez MD GFR,non Amer >60 Normal >60 [facility] Comment on above: Performed By: #### L IPR, GLYHGB, PSAS #### [address] [address] [employer] Tester: Perico Murray MD #### CP, CDP #### [facility] [address] [place] [address] Dr. [place], [place] 8460083 [employer] Tester: Michael Méndez MD Glucose [Mass/Vol] 182 mg/dL High 70-99 [facility] Comment on above: Performed By: #### L IPR, GLYHGB, PSAS #### [address] [address] [employer] Tester: Perico Murray MD #### CP, CDP #### [facility] [address] [place] [address] Dr. [place], [place] [phone] [employer] Tester: Michael Méndez MD Potassium [Moles/Vol] 4.3 mmol/L Normal 3.7-5.3 [facility] Comment on above: Performed By: #### L IPR, GLYHGB, PSAS #### [facility] [address] [place] [address] [employer] Tester: Perico Murray MD #### CP, CDP #### [facility] [address] [place] [address] Dr. [place], [place] 3247583 [employer] Tester: Michael Méndez MD Protein [Mass/Vol] 6.4 g/dL Normal 6.4-8.3 [facility] Comment on above: Performed By: #### L IPR, GLYHGB, PSAS #### [address] [address] [employer] Tester: Perico Murray MD #### CP, CDP #### [address] [place], [place] [phone] [employer] Tester: Michael Méndez MD Sodium [Moles/Vol] 138 mmol/L Normal 135-144 [facility] Comment on above: Performed By: #### L IPR, GLYHGB, PSAS #### [address] [address] [employer] Tester: Perico Murray MD #### CP, CDP #### [address] [place], [place] 5176583 [employer]spring Tester: Michael Méndez MD Staging: Normal [facility] Comment on above: Result Comment: Stag e 1: Some kidney damage normal GFR Stage 2: Mild kidney damage GFR 60-89 Stage 3: Moderate kidney damage GFR 30-59 Stage 4: Severe kidney damage GFR 15-29 Stage 5: Severe kidney damage GFR <15 ESRD - chronic treatment by dialysis or transplant Performed By: #### L IPR, GLYHGB, PSAS #### [address] [place] [address] [employer] Tester: Perico Murray MD #### CP, CDP #### [address] [place] [address] [employer] Tester: Michael Méndez MD Urea nitrogen [Mass/Vol] 13 mg/dL Normal 8-23 [facility] Comment on above: Performed By: #### L IPR, GLYHGB, PSAS #### [facility] [facility] [address] [place], [place] [id number] Convertible Sofa Bedspring Tester: Perico Murray MD #### CP, CDP #### [facility] [address] [place] [address] Convertible Sofa Bedspring Tester: Michael Méndez MD Comprehensive Metabolic Pane mayur 12-01-2021 Albumin [Mass/Vol] 3.7 g/dL 3.5 - 5.2 g/dL [facility] Albumin/Globulin [Mass ratio] 1.4 {ratio} 1 - 2.5 [facility] ALP (Bld) [Catalytic activity/Vol] 77 U/L 40 - 129 U/L [facility] ALT [Catalytic activity/Vol] 15 U/L 5 - 41 U/L [facility] Anion gap [Moles/Vol] 11 mmol/L 9 - 17 mmol/L [facility] AST [Catalytic activity/Vol] 14 U/L NINF - 40 U/L [facility] Bilirubin [Mass/Vol] 0.35 mg/dL 0.3 - 1 .2 mg/dL [facility] Calcium [Mass/Vol] 8.8 mg/dL 8.6 - 10. 4 mg/dL [facility] Chloride [Moles/Vol] 102 mmol/L 98 - 10 7 mmol/L [facility] CO2 [Moles/Vol] 25 mmol/L 20 - 31 mmol/L [facility] Creatinine [Mass/Vol] 0.74 mg/dL 0.7 - 1.2 mg/dL [facility] Free PSA/Total PSA [Mass fraction] 6.4 g/dL 6.4 - 8.3 g/dL [facility] GFR >60 60 - PI NF mL/min [facility] GFR Non- >60 60 - PINF mL/min [facility] Glucose [Mass/Vol] 182 mg/dL High 70 - 99 mg/dL [facility] Interpretation and review of laboratory results Abnormal [facility] Potassium [Moles/Vol] 4.3 mmol/L 3.7 - 5.3 mmol/L [facility] Sodium [Moles/Vol] 138 mmol/L 135 - 144 mmol/L [facility] Urea nitrogen (BldV) [Mass/Vol] 13 mg/dL 8 - 23 mg/dL [facility] Urea nitrogen/Creatinine (Bld) [Mass ratio] 18 9 - 20 [facility] Laboratory - Chemistry and C hemistry - challengeon 12-01-2021 GFR/1.73 sq M.predicted MDRD (S/P/Bld) [Vol rate/Area] [facility] Comment on above: Average GFR for 70 o r more years old: 75 mL/min/1.73sq m Chronic Kidney Disease: <60 mL/min/1.73sq m Kidney failure: <15 mL/min/1.73sq m eGFR calculated using average adult body mass. Additional eGFR calculator available at: http://www.CinnaBid/multiple_crcl_2012.htm Stage 1: Some kidney damage normal GFR Stage 2: Mild kidney damage GFR 60-89 Stage 3: Moderate kidney damage GFR 30-59 Stage 4: Severe kidney damage GFR 15-29 Stage 5: Severe kidney damage GFR <15 ESRD - chronic treatment by dialysis or transplant Lipid Panelon 12-01-2021 Cholesterol [Mass/Vol] 79 mg/dL NINF - 200 mg/dL [facility] Comment on above: Cholesterol Guidelines: <200 Desirable 200-240 Borderline >240 Undesirable Cholesterol in HDL [Mass/Vol] 30 mg/dL Low 40 - PINF mg/dL [facility] Comment on above: HDL Guidelines: <40 Undesirable 40-59 Borderline >59 Desirable Cholesterol in LDL [Mass/Vol] 29 mg/dL 0 - 130 mg/dL [facility] Comment on above: LDL Guidelines: <100 Desirable 100-129 Near to/above Desirable 130-159 Borderline >159 Undesirable Direct (measured) LDL and calculated LDL are not interchangeable tests. Cholesterol.total/Chol esterol in HDL [Mass ratio] 2.6 {ratio} NINF - 5 [facility] Interpretation and review of laboratory results Abnormal [facility] Triglyceride [Mass/Vol] 100 mg/dL NINF - 150 mg/dL [facility] Comment on above: Triglyceride Guidelines: <150 Desirable 150-199 Borderline 200-499 High >499 Very high Based on AHA Guidelines for fasting triglyceride, February 2012. [facility] Lipid Profileon 12-01-2021 Cholesterol [Mass/Vol] 79 mg/dL Normal <200 [facility] Comment on above: Result Comment: Cholesterol Guidelines: <200 Desirable 200-240 Borderline >240 Undesirable Performed By: #### L IPR, GLYHGB, PSAS #### [address] [id number] [employer] Sof[employer] Bedspring Tester: Perico Murray MD #### CP, CDP #### [facility] [address] [place] [address] [place] [id number] Convertible Sofa Bedspring Tester: Michael Méndez MD Cholesterol in HDL [Mass/Vol] 30 mg/dL Low >40 [facility] Comment on above: Result Comment: HDL Guidelines: <40 Undesirable 40-59 Borderline >59 Desirable Performed By: #### L IPR, GLYHGB, PSAS #### [address] [id number] Convert[employer] Sof[employer] Bedspring Tester: Perico Murray MD #### CP, CDP #### [address] [place] [id number] Convertible Sofa Bedspring Tester: Michael Méndez MD Cholesterol in LDL [Mass/Vol] 29 mg/dL Normal 0-130 [facility] Comment on above: Result Comment: LDL Guidelines: <100 Desirable 100-129 Near to/above Desirable 130-159 Borderline >159 Undesirable Direct (measured) LDL and calculated LDL are not interchangeable tests. Performed By: #### L IPR, GLYHGB, PSAS #### [address] [id number] Convert[employer] Sof[employer] Bedspring Tester: Perico Murray MD #### CP, CDP #### [facility] [address] [place] [address] [place]. [place], [place] [id number] Convertible Sofa Bedspring Tester: Michael Méndez MD Cholesterol.total/Chol esterol in HDL [Mass ratio] 2.6 {ratio} Normal <5 [facility] Comment on above: Performed By: #### L IPR, GLYHGB, PSAS #### [address] [address] Convertible Sof[employer] Bedspring Tester: Perico Murray MD #### CP, CDP #### [address] [place], [place] [id number] Convertible Sofa Bedspring Tester: Michael Méndez MD Triglyceride [Mass/Vol] 100 mg/dL Normal <150 [facility] Comment on above: Result Comment: Triglyceride Guidelines: <150 Desirable 150-199 Borderline 200-499 High >499 Very high Based on AHA Guidelines for fasting triglyceride, February 2012. Performed By: #### L IPR, GLYHGB, PSAS #### [address] [address] Convertible Sof[employer] Bedspring Tester: Perico Murray MD #### CP, CDP #### [address] [place] [address] Convertible Sofa Bedspring Tester: Michael Méndez MD PSA Screeningon 12-01-2021 [facility] PSA, Screeningon 12-01-2021 Prostatic Spec. Ag 1.23 ng/mL Normal <4.1 [facility] Comment on above: Result Comment: The Davis ECLIA assay is used. Results obtained with different assay methods cannot be used interchangeably. Performed By: #### L IPR, GLYHGB, PSAS #### [address] [address] Convertible Sofa Bedspring Tester: Perico Murray MD #### CP, CDP #### [address] [place] [address] Convertible Sofa Bedspring Tester: Michael Méndez MD Otolaryngology Office/Clinic Noteon 07-05-2021 [...] smoker, quit (more content not included)... Normal [facility] Otolaryngology Office/Clinic Noteon 06-14-2021 Otolaryngology Office/Clinic Note [...] bolster removed. Left FTSG with good take. [place] incision healing well. Nose: External nasal dorsum [...] 500 unit (more content not included)... Normal [facility] Operative Reporton 2 Operative Report Operative Report DATE OF SERVICE: [...] wound defe (more content not included)... Normal [facility] POC Glucose Randomon 022 Glucose [Mass/Vol] 154 mg/dL High 70-99 [facility] Comment on above: Performed By: #### C [id number] #### [address] [address] Glucose [Mass/Vol] 184 mg/dL High 70-99 [facility] Comment on above: Performed By: #### C [id number] #### [address] [address] Glucose [Mass/Vol] 207 mg/dL High 70-99 [facility] Comment on above: Performed By: #### C [id number] #### [address] [place] [address] CoV2 Agon 06-08-2021 Employed in healthcare? Unknown Normal [facility] Comment on above: Performed By: #### P TINR #### [place] [address] [place] [address] Group care resident? Unknown Normal [facility] Comment on above: Performed By: #### P TINR #### [address] [place] [address] In ICU? Unknown Normal [facility] Comment on above: Performed By: #### P TINR #### [address] [place] [address] status? Unknown Normal [facility] Comment on above: Performed By: #### P TINR #### [address] [address] SARS-CoV-2 (COVID-19) RNA RAYMON+probe Ql (Unsp spec) Negative Normal Negative [facility] Comment on above: Result Comment: Nega tive [...] COVID-19. ADDITIONAL INFORMATION: Testing performed on the Scribds 3600 using the SARS-CoV-2 Antigen test. Results are for the identification of SARS-CoV-2 nucleocapsid antigen. The OfferWireS SARS-CoV-2 Antigen test can detect both viable and non-viable SARS-CoV-2 material. The OfferWireS SARS-CoV-2 Antigen test performance depends on antigen [...] test results. In the [place], the OfferWireS SARS-CoV-2 Antigen test is only for use under the Food and Drug Administration?s Emergency Use Authorization. HCP Fact Sheet: https://www.fda.gov/media/729576/download Patient Fact Sheet: https://www.fda.gov/media/786454/download Performed By: #### P TINR #### [place] [address] SARS-CoV-2 (COVID-19) RNA RAYMON+probe Ql (Unsp spec) Unknown Normal [facility] Comment on above: Performed By: #### P TINR #### [address] [address] Symptomatic as defined by CDC? Unknown Normal [facility] Comment on above: Performed By: #### P TINR #### [place] [id number] .eGFRon 05-27-2021 eGFR Non-AA >60 Normal >=60 [facility] Comment on above: Result Comment: Stag es [...] years Performed By: #### E GFR #### [address] [place] [address] eGFR AA >60 Normal >=60 [facility] Comment on above: Result Comment: See comment. Performed By: #### E GFR #### [address] [address] Basic Metabolic Profileon Anion gap [Moles/Vol] 13 mmol/L Normal 7-17 [facility] Comment on above: Performed By: #### P TINR #### [address] [address] Calcium [Mass/Vol] 9.0 mg/dL Normal 8.5-10.3 [facility] Comment on above: Performed By: #### P TINR #### [address] [address] Chloride [Moles/Vol] 103 mmol/L Normal 98-110 [facility] Comment on above: Performed By: #### P TINR #### [address] [address] CO2 [Moles/Vol] 26 mmol/L Normal 22-32 [facility] Comment on above: Performed By: #### P TINR #### [address] [address] Creatinine [Mass/Vol] 0.91 mg/dL Normal 0.61-1.24 [facility] Comment on above: Performed By: #### P TINR #### [address] [address] Glucose [Mass/Vol] 193 mg/dL High 70-99 [facility] Comment on above: Performed By: #### P TINR #### [address] [address] Potassium [Moles/Vol] 3.9 mmol/L Normal 3.4-4.8 [facility] Comment on above: Performed By: #### P TINR #### [address] [address] Sodium [Moles/Vol] 138 mmol/L Normal 133-142 [facility] Comment on above: Performed By: #### P TINR #### [address] [address] Urea nitrogen [Mass/Vol] 14 mg/dL Normal 8-26 [facility] Comment on above: Performed By: #### P TINR #### [address] [address] Urea nitrogen/Creatinine [Mass ratio] 15.4 mg/mg Normal 10.0-20.0 [facility] Comment on above: Performed By: #### P TINR #### [address] [address] CBC w/ Diffon 05-27-2021 Erythrocyte distribution width (RBC) [Ratio] 12.8 % Normal 11.6-14.8 [facility] Comment on above: Performed By: #### C BC #### [address] [address] Hematocrit (Bld) [Volume fraction] 42.6 % Normal 41.0-53.0 [facility] Comment on above: Performed By: #### C BC #### [address] [address] Hemoglobin (Bld) [Mass/Vol] 14.4 g/dL Normal 13.5-17.5 [facility] Comment on above: Performed By: #### C BC #### [address] [address] MCH (RBC) [Entitic mass] 30.2 pg Normal 27.0-35.0 [facility] Comment on above: Performed By: #### C BC #### [address] [address] MCHC 33.7 % Normal 31.0-37.0 [facility] Comment on above: Performed By: #### C BC #### [address] [address] MCV (RBC) [Entitic vol] 89.8 fL Normal 80.0-100.0 [facility] Comment on above: Performed By: #### C BC #### [address] [address] Platelet 190 x10*3/mcL Normal 150-350 [facility] Comment on above: Performed By: #### C BC #### [address] [address] Platelet mean volume (Bld) [Entitic vol] 6.7 fL Normal 6.7-10.6 [facility] Comment on above: Performed By: #### C BC #### [address] [address] RBC 4.75 x10*6/mcL Normal 4.30-5.80 [facility] Comment on above: Performed By: #### C BC #### [address] [address] WBC 7.7 x10*3/mcL Normal 4.5-11.0 [facility] Comment on above: Performed By: #### C BC #### [address] [address] Diff Autoon 05-27-2021 Baso Absolute 0.0 x10*3/mcL Normal 0.0-0.2 [facility] Comment on above: Performed By: #### P TINR #### [address] [address] Basophils/100 WBC (Bld) 0.1 % Normal 0.0-1.2 [facility] Comment on above: Performed By: #### P TINR #### [address] [address] Eos Absolute 0.1 x10*3/mcL Normal 0.0-0.4 [facility] Comment on above: Performed By: #### P TINR #### [address] [address] Eosinophils/100 WBC (Bld) 0.7 % Normal 0.0-6.1 [facility] Comment on above: Performed By: #### P TINR #### [address] [address] Lymph Absolute 2.1 x10*3/mcL Normal 1.0-4.8 [facility] Comment on above: Performed By: #### P TINR #### [address] [address] Lymphocytes/100 WBC (Bld) 26.7 % Low 27.2-40.8 [facility] Comment on above: Performed By: #### P TINR #### [address] [address] [place] Absolute 0.6 x10*3/mcL Normal 0.3-1.1 [facility] Comment on above: Performed By: #### P TINR #### [address] [address] Monocytes/100 WBC (Bld) 7.9 % Normal 4.7-13.9 [facility] Comment on above: Performed By: #### P TINR #### [address] [address] Neutro Absolute 5.0 x10*3/mcL Normal 1.8-7.7 [facility] Comment on above: Performed By: #### P TINR #### [address] [address] Neutro Auto 64.6 % Normal 47.2-70.8 [facility] Comment on above: Performed By: #### P TINR #### [address] [address] Hgb A1con 05-27-2021 Glucose [Mass/Vol] 192 mg/dL High 68-114 [facility] Comment on above: Result Comment: Math ematical Calc approx. The mean gluc equivalency of A1c Performed By: #### P TINR #### [address] [address] Hgb A1c 8.3 % A1c High 4.0-5.6 [facility] Comment on above: Result Comment: Refe rence Range: 4.0 - 5.6 % Normal 5.7 - 6.4 % Pre-Diabetes > 6.5 % Diabetes Performed By: #### P TINR #### [address] [address] PTon 05-27-2021 INR Coag (PPP) [Relative time] 1.1 {INR} Normal <=3.5 [facility] Comment on above: Result Comment: INR has no normal range. INR Therapeutic range is: 2.0-3.0 (AF, CVA, TIAs, DVT prophylaxis, acute DVT) 2.5-3.5 ([facility] heart valves, recurrent thrombosis/emboli) Performed By: #### P TINR #### [address] [address] PT Coag (PPP) [Time] 11.3 s Normal 9.4-12.1 [facility] Comment on above: Performed By: #### P TINR #### [address] [address] PTTon 05-27-2021 aPTT Coag (Bld) [Time] 22.5 s Normal 20.2-27.0 [facility] Comment on above: Performed By: #### P TT #### [address] [address] XR Chest 2 Viewson 2 XR Chest [...] Electronically Signed in Other Vendor System) Normal [facility] Otolaryngology Office/Clinic Noteon 05-19-2021 Otolaryngology Office/Clinic Note [...] Villagomez MD, Chi 05/19/21 15:56 EST Normal [facility] CBC Auto DifferentialOrdered By: Mary Beth Pitts on 09-27-2020 Absolute Eos # 0.04 [employer] [facility] Work Phone: Absolute Immature Granulocyte 0.04 [employer] Work Phone: Absolute Lymph # 2.63 [employer] [facility] Work Phone: Absolute [place] # 0.68 [employer] [facility] Work Phone: Basophils (Bld) [#/Vol] 10*3/uL [employer] Work Phone: Basophils/100 WBC (Bld) 0 % 0 - 2 % [facility] Phone: Differential Type NOT REPORTED [facility] Phone: Eosinophils/100 WBC (Bld) 0 % Low 1 - 4 % [facility] Phone: Hematocrit (Bld) [Volume fraction] 36.8 % Low 40.7 - 50.3 % [facility] Phone: Hemoglobin.gastrointes tinal spec 1 Ql (Stl) 11.7 g/dL Low 13.0 - 17.0 g/dL [facility] Phone: Immature granulocytes/100 WBC (Bld) 0 % 0 [facility] Phone: Interpretation and review of laboratory results Abnormal [facility] Phone: Lymphocytes/100 WBC (Bld) 27 % 24 - 43 % [employer] Work Phone: MCH (RBC) [Entitic mass] 30.2 pg 25.2 - 33.5 pg [employer] Work Phone: MCHC (RBC) [Mass/Vol] 31.8 g/dL 28.4 - 34.8 g/dL [facility] Phone: MCV (RBC) [Entitic vol] 95.1 fL 82.6 - 102.9 fL [facility] Phone: Monocytes/100 WBC (Bld) 7 % 3 - 12 % [employer] Work Phone: NRBC Automated 0.0 0.0 per 100 WBC [facility] Phone: Platelet distribution width (Bld) [Ratio] 13.5 % 11.8 - 14.4 % [facility] Phone: Platelet Estimate NOT REPORTED [facility] Phone: Platelet mean volume (Bld) [Entitic vol] 8.7 fL 8.1 - 13.5 fL [facility] Phone: Platelets (Bld) [#/Vol] 243 10*3/uL [facility] Phone: RBC (Bld) [#/Vol] 3.87 10*6/uL Low 4.21 - 5.77 m/uL [facility] Phone: RBC (Bld) [#/Vol] NOT REPORTED [employer] Work Phone: Segmented neutrophils/100 WBC (Bld) 66 % High 36 - 65 % [employer] Work Phone: Segs Absolute 6.35 [employer] Work Phone: WBC (Bld) [#/Vol] 9.8 10*3/uL [employer] Work Phone: WBC (Bld) [#/Vol] NOT REPORTED [employer] Work Phone: [employer] Work Phone: TIBIA FIBULA LEFTon 04-28-20 20 TIBIA FIBULA LEFT [facility] [address] [place] [address] Patient Name: MARILU DAN : 1950 [...] bridging. Electronically signed: Terry Diaz. Transcribed by: [email or web address], User Resident: Electronically Signed by: TERRY DIAZ @ 04/29/2020 01:11 PM Normal [facility] Comment on above: Order Comment: Hardw are Evaluation TIBIA FIBULA LEFTon 03-29-20 20 TIBIA FIBULA LEFT [facility] [address] [place] [id number] Patient Name: MARILU DAN : 1950 [...] Electronically signed: Katiuska Mo M.D.. Transcribed by: [email or web address], User Resident: Electronically Signed by: KATIUSKA EDWARDSSERJIOALBANIA @ 03/29/2020 01:27 PM Normal [facility] Comment on above: Order Comment: Hardw are Evaluation TIBIA FIBULA LEFTon 02-23-20 TIBIA FIBULA LEFT [facility] [address] [place] [phone] Patient Name: MARILU DAN : 1950 [...] Electronically signed: Mary Jane Pendleton. Transcribed by: [email or web address], User Resident: Electronically Signed by: MARY JANE PENDLETON @ 02/23/2020 09:46 AM Normal [facility] Comment on above: Order Comment: Hardw are Evaluation VITAMIN D 25-HYDROXYon 02-22 VITAMIN D 25-OH 31.6 ng/mL Normal 30.0-80.0 [facility] Comment on above: Result Comment: >80. 0 Toxicity possible Performed By: #### 3 0728 ####[facility] [place] [address], [place] BASIC METABOLIC PANELon 10 Calcium [Mass/Vol] 8.7 mg/dL Normal 8.6-10.3 [facility] Comment on above: Order Comment: No: D o not add to previous draw Performed By: #### 8 [id number] #### [facility] [address] [place] [address], [place] Chloride [Moles/Vol] 103 mmol/L Normal 98-107 [facility] Comment on above: Order Comment: No: D o not add to previous draw Performed By: #### 8 [id number] #### [facility] [address] [place] [address], [place] CO2 [Moles/Vol] 25 mmol/L Normal 21-31 [facility] Comment on above: Order Comment: No: D o not add to previous draw Performed By: #### 8 [id number] #### [facility] [address] [place] [address], [place] Creatinine [Mass/Vol] 0.72 mg/dL Normal 0.70-1.30 [facility] Comment on above: Order Comment: No: D o not add to previous draw Performed By: #### 8 [id number] #### [facility] [address] [place] [address], [place] GFR/1.73 sq M predicted among blacks MDRD (S/P/Bld) [Vol rate/Area] mL/min/{1.73_m2} Normal >60 [facility] Comment on above: Order Comment: No: D o not add to previous draw Result Comment: Calc ulation may not be valid for patients over 70 years Performed By: #### 8 [id number] #### [facility] [address] [place] [address], [place] GFR/1.73 sq M predicted among non-blacks MDRD (S/P/Bld) [Vol rate/Area] mL/min/{1.73_m2} Normal >60 [facility] Comment on above: Order Comment: No: D o not add to previous draw Result Comment: Calc ulation may not be valid for patients over 70 years Performed By: #### 8 [id number] #### [facility] [address] [place] [address], [place] Glucose [Mass/Vol] 178 mg/dL High 70-100 [facility] Comment on above: Order Comment: No: D o not add to previous draw Performed By: #### 8 [id number] #### [facility] [address] [place] [address], [place] Potassium [Moles/Vol] 4.2 mmol/L Normal 3.5-5.1 [facility] Comment on above: Order Comment: No: D o not add to previous draw Performed By: #### 8 [id number] #### [facility] [address] [place] [address], [place] Sodium [Moles/Vol] 136 mmol/L Normal 136-145 [facility] Comment on above: Order Comment: No: D o not add to previous draw Performed By: #### 8 [id number] #### [facility] [address] [place] [address], [place] Urea nitrogen [Mass/Vol] 14 mg/dL Normal 7-25 [facility] Comment on above: Order Comment: No: D o not add to previous draw Performed By: #### 8 [id number] #### [facility] [address] CBC COMPLETE BLOOD COUNTon Erythrocyte distribution width (RBC) [Ratio] 12.3 % Normal 11.5-15.0 [facility] Comment on above: Order Comment: No: D o not add to previous draw Performed By: #### 8 [id number] #### [facility] [address] [place] [address], [facility] Hematocrit (Bld) [Volume fraction] 30.8 % Low 39.0-50.0 [facility] Comment on above: Order Comment: No: D o not add to previous draw Performed By: #### 8 [id number] #### [facility] [address] [place] [address], [facility] Hemoglobin (Bld) [Mass/Vol] 10.6 g/dL Low 13.0-17.0 [facility] Comment on above: Order Comment: No: D o not add to previous draw Performed By: #### 8 [id number] #### [facility] [address] [place] [address], [facility] MCH (RBC) [Entitic mass] 30.3 pg Normal 27.0-33.0 [facility] Comment on above: Order Comment: No: D o not add to previous draw Performed By: #### 8 [id number] #### [facility] [address] [place] [address], [facility] MCHC (RBC) [Mass/Vol] 34.4 g/dL Normal 32.0-35.0 [facility] Comment on above: Order Comment: No: D o not add to previous draw Performed By: #### 8 [id number] #### [facility] [address] [place] [id number], [facility] MCV (RBC) [Entitic vol] 88.0 fL Normal 82.0-98.0 [facility] Comment on above: Order Comment: No: D o not add to previous draw Performed By: #### 8 [id number] #### [facility] [address] [place] [address], [facility] Nucleated RBC/100 WBC (Bld) [Ratio] 0 % Normal 0-0 [facility] Comment on above: Order Comment: No: D o not add to previous draw Performed By: #### 8 [id number] #### [facility] [address] [place] [address], [place] PLAT CNT 153 10*3/uL Normal 150-400 [facility] Comment on above: Order Comment: No: D o not add to previous draw Performed By: #### 8 [id number] #### [facility] [address] [place] [address], [facility] RBC (Bld) [#/Vol] 3.50 10*6/uL Low 4.20-5.70 [facility] Comment on above: Order Comment: No: D o not add to previous draw Performed By: #### 8 [id number] #### [facility] [address] [place] [address], [facility] WBC (Bld) [#/Vol] 8.11 10*3/uL Normal 4.00-10.60 [facility] Comment on above: Order Comment: No: D o not add to previous draw Performed By: #### 8 [id number] #### [facility] [address] [address] Operative Reporton 0 Operative Report MR#: [id number] I [facility] Pt. Name: Marilu Dan Room #: 3AB [id number] Discharge Date: Birthdate: 1950 OPERATIVE REPORT DATE [...] a 69-year-old male, who initially presented to [facility] Emergency Department with chief complaint of left [...] 2 locking screws distally using freehand perfect tununak technique. After the placement of all interlocking [...] Lopez MD Date Trans: 02/14/2020 11:08 A/gomez [id number] Normal [facility] POC GLUCOSE LABon 02-14-2020 Glucose [Mass/Vol] 228 mg/dL High 70-100 [facility] Comment on above: Performed By: #### 8 [id number] #### [facility] [address] [place] [address], [facility] Glucose [Mass/Vol] 169 mg/dL High 70-100 [facility] Comment on above: Performed By: #### 8 [id number] #### [facility] [address] [place] [address], [facility] *MRSA/MSSA DNA NASALon 02-12 *MRSA/MSSA DNA NASAL Clinical Report: (D ) Specimen/Source: NASAL SWAB/NARES Collected: 02/13/2020 14:23 Status: Final Last Updated: 02/17/2020 12:22 MSSA DNA (Final) Negative MRSA DNA (Final) Negative Normal [facility] Comment on above: Performed By: #### 3 1595 #### [facility] [address] [place] [address], [facility] BASIC METABOLIC PANELon 10-0 Calcium [Mass/Vol] 9.2 mg/dL Normal 8.6-10.3 [facility] Comment on above: Order Comment: No: D o not add to previous draw Performed By: #### 8 [id number] #### [facility] [address] [place] [address], [place] Chloride [Moles/Vol] 102 mmol/L Normal 98-107 [facility] Comment on above: Order Comment: No: D o not add to previous draw Performed By: #### 8 5499 #### [facility] [address] [place] [address], [place] CO2 [Moles/Vol] 29 mmol/L Normal 21-31 [facility] Comment on above: Order Comment: No: D o not add to previous draw Performed By: #### 8 [id number] #### [facility] [address] [place] [address], [facility] Creatinine [Mass/Vol] 0.71 mg/dL Normal 0.70-1.30 [facility] Comment on above: Order Comment: No: D o not add to previous draw Performed By: #### 8 [id number] #### [facility] [address] [place] [address], [facility] GFR/1.73 sq M predicted among blacks MDRD (S/P/Bld) [Vol rate/Area] mL/min/{1.73_m2} Normal >60 [facility] Comment on above: Order Comment: No: D o not add to previous draw Result Comment: Calc ulation may not be valid for patients over 70 years Performed By: #### 8 [id number] #### [facility] [address] [place] [address], [facility] GFR/1.73 sq M predicted among non-blacks MDRD (S/P/Bld) [Vol rate/Area] mL/min/{1.73_m2} Normal >60 [facility] Comment on above: Order Comment: No: D o not add to previous draw Result Comment: Calc ulation may not be valid for patients over 70 years Performed By: #### 8 [id number] #### [facility] [address] [place] [address], [place] Glucose [Mass/Vol] 160 mg/dL High 70-100 [facility] Comment on above: Order Comment: No: D o not add to previous draw Performed By: #### 8 5499 #### [facility] [address] [place] [address], [place] Potassium [Moles/Vol] 4.0 mmol/L Normal 3.5-5.1 [facility] Comment on above: Order Comment: No: D o not add to previous draw Performed By: #### 8 [id number] #### [facility] [address] [place] [address], [facility] Sodium [Moles/Vol] 136 mmol/L Normal 136-145 [facility] Comment on above: Order Comment: No: D o not add to previous draw Performed By: #### 8 [id number] #### [facility] [address] [place] [address], [facility] Urea nitrogen [Mass/Vol] 13 mg/dL Normal 7-25 [facility] Comment on above: Order Comment: No: D o not add to previous draw Performed By: #### 8 5499 #### [facility] [address] CBC COMPLETE BLOOD COUNTon Erythrocyte distribution width (RBC) [Ratio] 12.4 % Normal 11.5-15.0 [facility] Comment on above: Order Comment: No: D o not add to previous draw Performed By: #### 8 6002 #### [facility] [address] [place] [address], [facility] Hematocrit (Bld) [Volume fraction] 37.6 % Low 39.0-50.0 [facility] Comment on above: Order Comment: No: D o not add to previous draw Performed By: #### 8 6002 #### [facility] [address] [place] [address], [facility] Hemoglobin (Bld) [Mass/Vol] 12.8 g/dL Low 13.0-17.0 [facility] Comment on above: Order Comment: No: D o not add to previous draw Performed By: #### 8 6002 #### [facility] [address] [place] [id number], [facility] MCH (RBC) [Entitic mass] 30.1 pg Normal 27.0-33.0 [facility] Comment on above: Order Comment: No: D o not add to previous draw Performed By: #### 8 6002 #### [facility] [address] [place] [address], [facility] MCHC (RBC) [Mass/Vol] 34.0 g/dL Normal 32.0-35.0 [facility] Comment on above: Order Comment: No: D o not add to previous draw Performed By: #### 8 6002 #### [facility] [address] [place] [id number], [facility] MCV (RBC) [Entitic vol] 88.5 fL Normal 82.0-98.0 [facility] Comment on above: Order Comment: No: D o not add to previous draw Performed By: #### 8 6002 #### [facility] [address] [facility] [place] [address], [facility] Nucleated RBC/100 WBC (Bld) [Ratio] 0 % Normal 0-0 [facility] Comment on above: Order Comment: No: D o not add to previous draw Performed By: #### 8 6002 #### [facility] [address] [place] [address], [facility] PLAT CNT 180 10*3/uL Normal 150-400 [facility] Comment on above: Order Comment: No: D o not add to previous draw Performed By: #### 8 6002 #### [facility] [address] [place] [id number], [facility] RBC (Bld) [#/Vol] 4.25 10*6/uL Normal 4.20-5.70 [facility] Comment on above: Order Comment: No: D o not add to previous draw Performed By: #### 8 6002 #### [facility] [address] [place] [id number], [facility] WBC (Bld) [#/Vol] 7.58 10*3/uL Normal 4.00-10.60 [facility] Comment on above: Order Comment: No: D o not add to previous draw Performed By: #### 8 6002 #### [facility] [address] [place] [address], [place] MAGNESIUM BLOODon 02-13-2020 Magnesium [Mass/Vol] 2.0 mg/dL Normal 1.9-2.7 [facility] Comment on above: Order Comment: No: D o not add to previous draw Performed By: #### 8 [id number] #### [facility] [address] [place] [address], [place] PHOSPHORUS BLOODon 0 Phosphate [Mass/Vol] 3.6 mg/dL Normal 2.5-5.0 [facility] Comment on above: Order Comment: No: D o not add to previous draw Performed By: #### 8 [id number] #### [facility] [address] [place] [address], [place] POC GLUCOSE LABon 02-13-2020 Glucose [Mass/Vol] 176 mg/dL High 70-100 [facility] Comment on above: Performed By: #### 8 [id number] #### [facility] [address] [place] [address], [place] Glucose [Mass/Vol] 134 mg/dL High 70-100 [facility] Comment on above: Performed By: #### 8 5499 #### [facility] [address] [place] [address], [place] Glucose [Mass/Vol] 138 mg/dL High 70-100 [facility] Comment on above: Performed By: #### 8 5499 #### [facility] [address] [place] [address], [place] Glucose [Mass/Vol] 143 mg/dL High 70-100 [facility] Comment on above: Performed By: #### 8 5499 #### [facility] [address] [place] [address], [place] Glucose [Mass/Vol] 163 mg/dL High 70-100 [facility] Comment on above: Performed By: #### 8 5499 #### [id number] [place] [address] TIBIA FIBULA LEFTon 02-13-20 TIBIA FIBULA LEFT [facility] Department of Radiology [address] [place] [id number] Patient Name: MARILU DAN : 1950 Sex: M Age: Race: White Pt. Location: [id number] Patient Status: I Ordered Date: 02/13/2020 8:00:00 [...] fracture. Electronically signed: Catalina Pastrana. Transcribed by: [email or web address], User Resident: Electronically Signed by: CATALINA PASTRANA @ 02/13/2020 09:09 PM Normal [facility] Comment on above: Order Comment: Hardw are Evaluation TIBIA FIBULA LEFT [facility] Department of Radiology [address] [place] [phone] Patient Name: MARILU DAN : 1950 Sex: M Age: Race: White Pt. Location: [id number] Patient Status: I Ordered Date: 02/13/2020 7:15:00 [...] review. Electronically signed: Catalina Pastrana. Transcribed by: [email or web address], User Resident: Electronically Signed by: CATALINA PASTRANA @ 02/13/2020 09:12 PM Normal [facility] Comment on above: Order Comment: Hardw are Evaluation *SARS-CoV-2 COVID-19on 02-11 [id number] Not Detected Normal Not Detected [facility] Comment on above: Order Comment: The A ptima SARS-CoV-2 assay is a nucleic acid amplification test intended for the qualitative detection of RNA from SARS-CoV-2 isolated and purified from nasopharyngeal (DATA COMPILER),oropharyngeal (OP), nasal swab, sputum, and bronchoalveolar lavage (BAL) specimens from patients with signs and symptoms of infection who are suspected of COVID-19. Results are for the identification of SARS-CoV-2 RNA. The SARS-CoV-2 RNA is generally detectable during the acute phase of infection. The Aptima SARS-CoV-2 Assay on the Spry [employer] Spry Fusion system is intended for use by laboratory personnel specifically instructed and trained in the operation of the Ecru [employer] Ec[employer] Fusion system. The Aptima SARS-CoV-2 assay is [...] information. Performed By: #### 3 1792 #### [facility] [address] [place] [address], [facility] APTTon 02-12-2020 aPTT Coag (Bld) [Time] 27.0 s Normal 25.0-35.0 Th e [facility] Comment on above: Order Comment: No: D [...] PURPOSE. Performed By: #### 8 [id number] #### [facility] [address] [facility] [place] [address], [facility] BASIC METABOLIC PANELon 10-0 Calcium [Mass/Vol] 9.0 mg/dL Normal 8.6-10.3 [facility] Comment on above: Order Comment: No: D o not add to previous draw Performed By: #### 4 1000, 38294, 54970, 84410 ####[facility] [place] [address], [facility] Chloride [Moles/Vol] 100 mmol/L Normal 98-107 [facility] Comment on above: Order Comment: No: D o not add to previous draw Performed By: #### 4 1000, 23965, 42534, 73315 ####[facility] [place] [address], [facility] CO2 [Moles/Vol] 26 mmol/L Normal 21-31 [facility] Comment on above: Order Comment: No: D o not add to previous draw Performed By: #### 4 1000, 96666, 42204, 51563 ####[facility] [facility] [place] [address], [facility] Creatinine [Mass/Vol] 0.80 mg/dL Normal 0.70-1.30 [facility] Comment on above: Order Comment: No: D o not add to previous draw Performed By: #### 4 1000, 26845, 70769, 69968 ####[facility] [place] [address], [facility] GFR/1.73 sq M predicted among blacks MDRD (S/P/Bld) [Vol rate/Area] mL/min/{1.73_m2} Normal >60 [facility] Comment on above: Order Comment: No: D o not add to previous draw Result Comment: Calc ulation may not be valid for patients over 70 years Performed By: #### 4 1000, 94334, 70093, 83159 ####[facility] [place] [address], [place] GFR/1.73 sq M predicted among non-blacks MDRD (S/P/Bld) [Vol rate/Area] mL/min/{1.73_m2} Normal >60 [facility] Comment on above: Order Comment: No: D o not add to previous draw Result Comment: Calc ulation may not be valid for patients over 70 years Performed By: #### 4 1000, 50854, 34219, 15497 ####[facility] [place] [address], [facility] Glucose [Mass/Vol] 193 mg/dL High 70-100 [facility] Comment on above: Order Comment: No: D o not add to previous draw Performed By: #### 4 1000, 14601, 06698, 37175 ####[facility] [facility] [place] [address], [facility] Potassium [Moles/Vol] 4.2 mmol/L Normal 3.5-5.1 [facility] Comment on above: Order Comment: No: D o not add to previous draw Performed By: #### 4 1000, 15693, 83398, 76375 ####[facility] [facility] Sodium [Moles/Vol] 132 mmol/L Low 136-145 [facility] Comment on above: Order Comment: No: D o not add to previous draw Performed By: #### 4 1000, 71033, 76728, 06464 ####[facility] [facility] [place] [address], [facility] Urea nitrogen [Mass/Vol] 14 mg/dL Normal 7-25 [facility] Comment on above: Order Comment: No: D o not add to previous draw Performed By: #### 4 1000, 52552, 53953, 57130 ####[facility] [place] [address], [facility] CBC W/DIFFon 02-12-2020 ABS BASOPHILS 0.0 10*3/uL Normal 0.0-0.2 [facility] Comment on above: Performed By: #### 8 5499 #### [facility] [address] [facility] [place] [address], [facility] ABS IMM GRANS 0.1 10*3/uL Normal 0.0-0.2 [facility] Comment on above: Performed By: #### 8 5499 #### [facility] [address] [place] [address], [facility] ABS NEUTROPHILS 9.8 10*3/uL High 1.6-7.6 [facility] Comment on above: Performed By: #### 8 5499 #### [facility] [address] Basophils/100 WBC (Bld) 0.1 % Normal 0.0-1.0 [facility] Comment on above: Performed By: #### 8 5499 #### [facility] [address] Eosinophils (Bld) [#/Vol] 0.0 10*3/uL Normal 0.0-0.5 [facility] Comment on above: Performed By: #### 8 5499 #### [facility] [address] [place] [address], [facility] Eosinophils/100 WBC (Bld) 0.1 % Normal 0.0-6.0 [facility] Comment on above: Performed By: #### 8 5499 #### [facility] [address] Erythrocyte distribution width (RBC) [Ratio] 12.0 % Normal 11.5-15.0 [facility] Comment on above: Performed By: #### 8 5499 #### [facility] [address] Hematocrit (Bld) [Volume fraction] 38.0 % Low 39.0-50.0 [facility] Comment on above: Performed By: #### 8 5499 #### [facility] [address] [facility] [place] [address], [facility] Hemoglobin (Bld) [Mass/Vol] 13.0 g/dL Normal 13.0-17.0 [facility] Comment on above: Performed By: #### 8 5499 #### [facility] [address] [facility] [place] [address], [facility] IMMATURE GRANS 0.5 % Normal 0.0-1.0 [facility] Comment on above: Performed By: #### 8 5499 #### [facility] [address] Lymphocytes (Bld) [#/Vol] 1.3 10*3/uL Normal 1.2-4.0 [facility] Comment on above: Performed By: #### 8 5499 #### [facility] [address] Lymphocytes/100 WBC (Bld) 11.1 % Low 20.0-45.0 [facility] Comment on above: Performed By: #### 8 5499 #### [facility] [address] MCH (RBC) [Entitic mass] 30.0 pg Normal 27.0-33.0 [facility] Comment on above: Performed By: #### 8 5499 #### [facility] [address] [facility]. [address] MCHC (RBC) [Mass/Vol] 34.2 g/dL Normal 32.0-35.0 [facility] Comment on above: Performed By: #### 8 5499 #### [facility] [address] [place] [address], [facility] MCV (RBC) [Entitic vol] 87.8 fL Normal 82.0-98.0 [facility] Comment on above: Performed By: #### 8 5499 #### [facility] [address] [place] [address], [facility] Monocytes (Bld) [#/Vol] 0.9 10*3/uL Normal 0.1-1.0 [facility] Comment on above: Performed By: #### 8 5499 #### [facility] [address] [place] [id number], [facility] MONOS 7.1 % Normal 5.0-12.0 [facility] Comment on above: Performed By: #### 8 5499 #### [facility] [address] [facility] [place] [address], [facility] Neutrophils/100 WBC (Bld) 81.1 % High 40.0-72.0 [facility] Comment on above: Performed By: #### 8 5499 #### [facility] [address] [facility] [place] [address], [facility] Nucleated RBC/100 WBC (Bld) [Ratio] 0 % Normal 0-0 [facility] Comment on above: Performed By: #### 8 5499 #### [facility] [address] [facility] [place] [place] [address], [facility] PLAT CNT 204 10*3/uL Normal 150-400 [facility] Comment on above: Performed By: #### 8 5499 #### [facility] [address] [place] [place] [address], [facility] RBC (Bld) [#/Vol] 4.33 10*6/uL Normal 4.20-5.70 [facility] Comment on above: Performed By: #### 8 5499 #### [facility] [address] [facility] [place] [id number], [facility] WBC (Bld) [#/Vol] 12.03 10*3/uL High 4.00-10.60 [facility] Comment on above: Performed By: #### 8 5499 #### [facility] [address] [place] [address] CT LOWER EXTREMITY WO CONTRA ST Leo 02-12-2020 CT LOWER EXTREMITY WO CONTRAST LEFT [facility] Department of Radiology [address] [place] [phone] Patient Name: MARILU DAN : 1950 Sex: M Age: Race: White Pt. Location: [id number] Patient Status: I Ordered Date: 02/12/2020 6:00:00 [...] metatarsals. Electronically signed: Kwaku Gupta. Transcribed by: [email or web address], User Resident: Electronically Signed by: KWAKU GUPTA @ 02/12/2020 06:34 PM Normal [facility] Comment on above: Order Comment: Hardw are Evaluation LIVER BATTERYon 02-12-2020 Albumin [Mass/Vol] 3.9 g/dL Normal 3.5-5.7 [facility] Comment on above: Order Comment: No: D o not add to previous draw Performed By: #### 4 1000, 40745, 25607, 83659 ####[facility] [facility].[address] ALKALINE PHOSPH 64 IU/L Normal 34-104 [facility] Comment on above: Order Comment: No: D o not add to previous draw Performed By: #### 4 1000, 41493, 63701, 40772 ####[facility] [facility] [place] [address], [facility] ALT [Catalytic activity/Vol] 10 U/L Normal 7-52 [facility] Comment on above: Order Comment: No: D o not add to previous draw Performed By: #### 4 1000, 13985, 49393, 80162 ####[facility] [place] [address], [facility] AST [Catalytic activity/Vol] 13 U/L Normal 13-39 [facility] Comment on above: Order Comment: No: D o not add to previous draw Performed By: #### 4 1000, 61743, 32976, 63866 ####[facility] [place] [address], [facility] Bilirubin [Mass/Vol] 0.5 mg/dL Normal 0.3-1.0 [facility] Comment on above: Order Comment: No: D o not add to previous draw Performed By: #### 4 1000, 13750, 76916, 69819 ####[facility] [facility] [place] [address], [facility] Bilirubin.direct [Mass/Vol] 0.1 mg/dL Normal 0.0-0.2 [facility] Comment on above: Order Comment: No: D o not add to previous draw Performed By: #### 4 1000, 17845, 43289, 71484 ####[facility] [facility] [place] [address], [facility] Protein [Mass/Vol] 6.3 g/dL Normal 6.0-8.3 [facility] Comment on above: Order Comment: No: D o not add to previous draw Performed By: #### 4 1000, 05310, 52574, 57738 ####[facility] [facility] [place] [address], [facility] MAGNESIUM BLOODon 02-12-2020 Magnesium [Mass/Vol] 1.8 mg/dL Low 1.9-2.7 [facility] Comment on above: Order Comment: No: D o not add to previous draw Performed By: #### 4 1000, 05918, 37156, 01767 ####[facility] [place] [address], [facility] PHOSPHORUS BLOODon 0 Phosphate [Mass/Vol] 3.4 mg/dL Normal 2.5-5.0 [facility] Comment on above: Order Comment: No: D o not add to previous draw Performed By: #### 4 1000, 62311, 66645, 00005 ####[facility] [facility].[address] POC GLUCOSE LABon 02-12-2020 Glucose [Mass/Vol] 285 mg/dL High 70-100 [facility] Comment on above: Performed By: #### 8 5499 #### [facility] [address] [facility] [place] [place] [address], [facility] PROTHROMBIN TIMEon 0 INR Coag (PPP) [Relative time] 1.36 {INR} High 0.91-1.16 [facility] Comment on above: Order Comment: No: D [...] 1995;[id number]. Performed By: #### 8 5499 #### [facility] [address] [place] [address], [facility] PT Coag (PPP) [Time] 16.9 s High 12.3-14.8 [facility] Comment on above: Order Comment: No: D o not add to previous draw Result Comment: ALL RESULTS MUST BE INTERPRETED WITH RESPECT TO BLOOD DRAWING ARTIFACT OR DILUTION ERROR OF ANTICOAGULANT AT THE TIME OF SAMPLING. Performed By: #### 8 5499 #### [address] TIBIA FIBULA LEFTon 02-12-20 20 TIBIA FIBULA LEFT [facility] Department of Radiology [address] [place] [phone] Patient Name: MARILU DAN : 1950 Sex: M Age: Race: White Pt. Location: [address] [place] [address] Patient Status: I Ordered Date: 02/12/2020 5:30:00 [...] above. Electronically signed: Kwaku Gupta. Transcribed by: [email or web address], User Resident: Electronically Signed by: KWAKU GUPTA @ 02/12/2020 06:13 PM Normal [facility] Comment on above: Order Comment: Hardw are Evaluation TYPE AND SCREENon 02-12-2020 ABO INTERPRETATION A Normal [facility] Comment on above: Performed By: #### 6 2586 ####[facility] [place] [address], [facility] RH INTERPRETATION Positive Normal [facility] Comment on above: Performed By: #### 6 2586 ####[facility] [place] [address], [place] CBC COMPLETE BLOOD COUNTon 0 11-05-2019 Erythrocyte distribution width (RBC) [Ratio] 11.9 % Normal 11.5-15.0 [facility] Comment on above: Order Comment: No: D o not add to previous draw Performed By: #### 8 5499 #### [facility] [address] [place] [address], [place] Hematocrit (Bld) [Volume fraction] 37.2 % Low 39.0-50.0 [facility] Comment on above: Order Comment: No: D o not add to previous draw Performed By: #### 8 5499 #### [facility] [address] [place] [address], [place] Hemoglobin (Bld) [Mass/Vol] 12.6 g/dL Low 13.0-17.0 [facility] Comment on above: Order Comment: No: D o not add to previous draw Performed By: #### 8 [id number] #### [facility] [address] [place] [address], [place] MCH (RBC) [Entitic mass] 30.4 pg Normal 27.0-33.0 [facility] Comment on above: Order Comment: No: D o not add to previous draw Performed By: #### 8 [id number] #### [facility] [address] [place] [address], [place] MCHC (RBC) [Mass/Vol] 33.9 g/dL Normal 32.0-35.0 [facility] Comment on above: Order Comment: No: D o not add to previous draw Performed By: #### 8 [id number] #### [facility] [address] [place] [id number], [facility] MCV (RBC) [Entitic vol] 89.6 fL Normal 82.0-98.0 [facility] Comment on above: Order Comment: No: D o not add to previous draw Performed By: #### 8 [id number] #### [facility] [address] [place] [address], [facility] Nucleated RBC/100 WBC (Bld) [Ratio] 0 % Normal 0-0 [facility] Comment on above: Order Comment: No: D o not add to previous draw Performed By: #### 8 [id number] #### [facility] [address] [place] [address], [facility] PLAT CNT 155 10*3/uL Normal 150-400 [facility] Comment on above: Order Comment: No: D o not add to previous draw Performed By: #### 8 [id number] #### [facility] [address] [facility] [place] [address], [facility] RBC (Bld) [#/Vol] 4.15 10*6/uL Low 4.20-5.70 [facility] Comment on above: Order Comment: No: D o not add to previous draw Performed By: #### 8 [id number] #### [facility] [address] [place] [id number], [place] WBC (Bld) [#/Vol] 7.44 10*3/uL Normal 4.00-10.60 [facility] Comment on above: Order Comment: No: D o not add to previous draw Performed By: #### 8 [id number] #### [facility] [address] [place] [id number], [facility] COMP METABOLIC PANELon 11-04 Albumin [Mass/Vol] 3.3 g/dL Low 3.5-5.7 [facility] Comment on above: Order Comment: No: D o not add to previous draw Performed By: #### 8 [id number] #### [facility] [address] [place] [address], [place] ALKALINE PHOSPH 55 IU/L Normal 34-104 [facility] Comment on above: Order Comment: No: D o not add to previous draw Performed By: #### 8 [id number] #### [facility] [address] [place] [address], [place] ALT [Catalytic activity/Vol] 12 U/L Normal 7-52 [facility] Comment on above: Order Comment: No: D o not add to previous draw Performed By: #### 8 [id number] #### [facility] [address] [place] [address], [place] AST [Catalytic activity/Vol] 15 U/L Normal 13-39 [facility] Comment on above: Order Comment: No: D o not add to previous draw Performed By: #### 8 [id number] #### [facility] [address] [place] [address], [place] Bilirubin [Mass/Vol] 0.6 mg/dL Normal 0.3-1.0 [facility] Comment on above: Order Comment: No: D o not add to previous draw Performed By: #### 8 [id number] #### [facility] [address] [place] [address], [place] Calcium [Mass/Vol] 8.1 mg/dL Low 8.6-10.3 [facility] Comment on above: Order Comment: No: D o not add to previous draw Performed By: #### 8 [id number] #### [facility] [address] [place] [address], [place] Chloride [Moles/Vol] 106 mmol/L Normal 98-107 [facility] Comment on above: Order Comment: No: D o not add to previous draw Performed By: #### 8 [id number] #### [facility] [address] [place] [address], [facility] CO2 [Moles/Vol] 26 mmol/L Normal 21-31 [facility] Comment on above: Order Comment: No: D o not add to previous draw Performed By: #### 8 [id number] #### [facility] [address] [place] [address], [place] Creatinine [Mass/Vol] 0.79 mg/dL Normal 0.70-1.30 [facility] Comment on above: Order Comment: No: D o not add to previous draw Performed By: #### 8 [id number] #### [facility] [address] [place] [address], [facility] GFR/1.73 sq M predicted among blacks MDRD (S/P/Bld) [Vol rate/Area] mL/min/{1.73_m2} Normal >60 [facility] Comment on above: Order Comment: No: D o not add to previous draw Result Comment: Calc ulation may not be valid for patients over 70 years Performed By: #### 8 [id number] #### [facility] [address] [place] [address], [facility] GFR/1.73 sq M predicted among non-blacks MDRD (S/P/Bld) [Vol rate/Area] mL/min/{1.73_m2} Normal >60 [facility] Comment on above: Order Comment: No: D o not add to previous draw Result Comment: Calc ulation may not be valid for patients over 70 years Performed By: #### 8 [id number] #### [facility] [address] [place] [address], [place] Glucose [Mass/Vol] 155 mg/dL High 70-100 [facility] Comment on above: Order Comment: No: D o not add to previous draw Performed By: #### 8 [id number] #### [facility] [address] [place] [address], [facility] Potassium [Moles/Vol] 3.8 mmol/L Normal 3.5-5.1 [facility] Comment on above: Order Comment: No: D o not add to previous draw Performed By: #### 8 [id number] #### [facility] [address] [place] [address], [facility] Protein [Mass/Vol] 5.2 g/dL Low 6.0-8.3 [facility] Comment on above: Order Comment: No: D o not add to previous draw Performed By: #### 8 [id number] #### [facility] [address] [facility] [place] [address], [facility] Sodium [Moles/Vol] 136 mmol/L Normal 136-145 [facility] Comment on above: Order Comment: No: D o not add to previous draw Performed By: #### 8 [id number] #### [facility] [address] [facility] [place] [address], [facility] Urea nitrogen [Mass/Vol] 11 mg/dL Normal 7-25 [facility] Comment on above: Order Comment: No: D o not add to previous draw Performed By: #### 8 [id number] #### [facility] [address] Cardiovascular Lab Reporton 11-05-2019 Cardiovascular Lab Report [facility] Patient Name: Marilu Dan [facility] MR #: [id number] Physician: Blas Guillen of Keesha Ospina Medicine Service Date: 11/04/2019 Division of Birthdate: 1950 Cardiology Room #: DMITRIY [id number] Adult Cardiovascular Services [facility] [address] [place], [place] [address] Cardiovascular Laboratory Report INDICATION: Marilu Dan is [...] left (Angioseal) common femoral arteries. INTERVENTIONAL CARDIOLOGY [employer] INSTALLER: Blas Ospina M.D. CARDIOTHORACIC SURGERY [employer] IN[employer]ER: Santana Reagan MD CYBER SECURITY ARCHITECT: Reynaldo Cox M.D. METHODS: Procedure was explained [...] and this was easily upsized to a 6-Belarusian x 11 cm sheath. Access was also obtained using the same technique in the left common femoral artery with inner cannula angiography confirming adequate location and upsized to a 6-Belarusian x 11 cm sheath. Additional access was obtained in the left common femoral vein and a 6-Belarusian x 11 cm sheath was placed. Preclosure was performed in the right common femoral artery using two 6-Belarusian ProGlide devices, positioned at 10 o'clock and 2 o'clock locations and the access was upsized to a 10-Belarusian sheath. 4000 units of heparin were given at this time. A 6-Belarusian angled pigtail catheter was advanced to the ascending aorta from the left common femoral access and a 5-Belarusian temporary balloon tipped pacemaker wire was advanced to the right ventricular apex and adequate capture was confirmed with a threshold of 2 milliamps. A 6-Belarusian JR4 diagnostic catheter was advanced from the right femoral access over a J-tip wire to the descending aorta and used to place a Lunderquist wire and the access was then serially dilated and upsized to the 14-Belarusian Henao eSheath. At this time, full heparinization was given and therapeutic ACT was confirmed during the rest of the procedure and additional heparin given as needed. Using a 6-Belarusian JR4 diagnostic catheter and a straight Glidewire, the aortic valve was crossed and the catheter was advanced to the LV and then exchanged over a wire to a 6-Belarusian angled pigtail catheter, and after adequate position [...] the valve was deployed slowly across the match-e-be-nash-she-wish band aortic valve. The balloon was deflated and then retracted. After ending pacing, the patient recovered a normal sinus rhythm and recovered good pressure. Echocardiography confirmed adequate functioning of the valve, normal left ventricular function, no evidence of aortic insufficiency or paravalvular leak by echocardiography and no evidence of pericardial effusion. The wire was exchanged to a 6-Belarusian angled pigtail catheter and measurement of pressures [...] left femoral arteriotomy was managed with a 6-Belarusian Angio-Seal device with good hemostasis. The patient [...] A Blas Ospina M.D. Date Dict: 11/04/2019/11:50 A/Blsa Ospina M.D. Date Trans: 11/05/2019 06:35 A/gomez [id number] cc: Mary Beth Pitts M.D. [address] [place] [address] Normal [facility] MAGNESIUM BLOODon 11-05-2019 Magnesium [Mass/Vol] 1.9 mg/dL Normal 1.9-2.7 [facility] Comment on above: Order Comment: No: D o not add to previous draw Performed By: #### 8 [id number] #### [facility] [address] Operative Reporton 0 Operative Report MR#: [id number] [facility] Pt. Name: Marilu Dan Room #: DMITRIY [id number] Discharge Date: Birthdate: 1950 OPERATIVE REPORT DATE OF SURGERY: 11/04/2019 SURGEON: Santana Reagan MD PREOPERATIVE DIAGNOSIS: Severe aortic stenosis, status post coronary artery bypass grafting. POSTOPERATIVE DIAGNOSIS: Severe aortic stenosis, status post coronary artery bypass grafting. OPERATION: Transfemoral transcatheter aortic valve replacement with 26 mm Chidi XT valve. SURGEONS: Dr. Reagan and Dr. Ospina. NEEDLE PUNCH MACHINE OPERATOR: Dr. Cox. ANESTHESIA: Local anesthesia with IV [...] was achieved to both femoral arteries with 6-Belarusian sheath. A temporary transvenous pacemaker was inserted in the left femoral vein and tested for later use. At this time, pigtail catheter was inserted into the ascending aorta through the left femoral sheath and root aortogram was performed. Anatomical details were measured. Coplanar angles were assessed. Next, the patient was heparinized and the right femoral artery sheath was upsized to a 14-Belarusian Henao sheath. Before implanting the sheath, the [...] P/Santana Reagan MD Date Trans: 11/05/2019 02:18 A/mmo [id number] Normal [facility] POC GLUCOSE LABon 11-05-2019 Glucose [Mass/Vol] 232 mg/dL High 70-100 [facility] Comment on above: Performed By: #### 8 [id number] #### [facility] [address] [place] [address], [facility] Glucose [Mass/Vol] 148 mg/dL High 70-100 [facility] Comment on above: Performed By: #### 8 [id number] #### [facility] [address] [facility] [place] [address], [facility] Glucose [Mass/Vol] 203 mg/dL High 70-100 [facility] Comment on above: Performed By: #### 8 [id number] #### [address] PORTABLE CHEST 1 VIEWon 10-13 PORTABLE CHEST [address] [facility] Department of Radiology [address] [place] [address] Patient Name: MARILU DAN : 1950 Sex: M Age: Race: White Pt. Location: [place] [address] Patient Status: I Ordered Date: 11/05/2019 10:20:00 [...] recommendations. Electronically signed: Omid Avery. Transcribed by: [email or web address], User Resident: Electronically Signed by: OMID AVERY @ 11/05/2019 11:07 AM Normal [facility] Comment on above: Order Comment: Hardw are Evaluation PROTHROMBIN TIMEon 0 INR Coag (PPP) [Relative time] 1.06 {INR} Normal 0.91-1.16 [facility] Comment on above: Order Comment: No: D o not add to previous draw Result Comment: ACC P RECOMMENDED INR FOR WARFARIN THERAPY --------- [...] 1995;108:231S-246S. Performed By: #### 8 [id number] #### [facility] [address] [facility] PT Coag (PPP) [Time] 13.8 s Normal 12.3-14.8 [facility] Comment on above: Order Comment: No: D o not add to previous draw Result Comment: ALL RESULTS MUST BE INTERPRETED WITH RESPECT TO BLOOD DRAWING ARTIFACT OR DILUTION ERROR OF ANTICOAGULANT AT THE TIME OF SAMPLING. Performed By: #### 8 [id number] #### [facility] [address] [facility] ACTIVATED CLOTTING TIMEon ACTIVATED CLOTTING TIME 249 sec High 82-152 [facility] Comment on above: Performed By: #### 3 0739 ####[facility] [facility] ACTIVATED CLOTTING TIME 249 sec High 82-152 [facility] Comment on above: Performed By: #### 3 0739 ####[facility] [facility] ACTIVATED CLOTTING TIME 225 sec High 82-152 [facility] Comment on above: Performed By: #### 3 0739 ####[facility] [place] [address], [facility] ACTIVATED CLOTTING TIME 201 sec High 82-152 [facility] Comment on above: Performed By: #### 3 0738 #### [facility] [address] [place] [address], [place] ACTIVATED CLOTTING TIME 172 sec High 82-152 [facility] Comment on above: Performed By: #### 3 0738 #### [facility] [address] [place] [address], [facility] BASIC METABOLIC PANELon 06- Calcium [Mass/Vol] 8.9 mg/dL Normal 8.6-10.3 [facility] Comment on above: Performed By: #### 8 [id number] #### [facility] [address] [place] [address], [place] Chloride [Moles/Vol] 105 mmol/L Normal 98-107 [facility] Comment on above: Performed By: #### 8 6002 #### [facility] [address] [place] [address], [place] CO2 [Moles/Vol] 28 mmol/L Normal 21-31 [facility] Comment on above: Performed By: #### 8 6002 #### [facility] [address] [place] [address], [facility] Creatinine [Mass/Vol] 0.87 mg/dL Normal 0.70-1.30 [facility] Comment on above: Performed By: #### 8 [id number] #### [facility] [address] [place] [address], [place] GFR/1.73 sq M predicted among blacks MDRD (S/P/Bld) [Vol rate/Area] mL/min/{1.73_m2} Normal >60 [facility] Comment on above: Result Comment: Calc ulation may not be valid for patients over 70 years Performed By: #### 8 [id number] #### [facility] [address] [place] [address], [place] GFR/1.73 sq M predicted among non-blacks MDRD (S/P/Bld) [Vol rate/Area] mL/min/{1.73_m2} Normal >60 [facility] Comment on above: Result Comment: Calc ulation may not be valid for patients over 70 years Performed By: #### 8 6002 #### [facility] [address] [place] [address], [place] Glucose [Mass/Vol] 221 mg/dL High 70-100 [facility] Comment on above: Performed By: #### 8 6002 #### [facility] [address] [place] [address], [facility] Potassium [Moles/Vol] 3.9 mmol/L Normal 3.5-5.1 [facility] Comment on above: Performed By: #### 8 [id number] #### [facility] [address] [place] [address], [place] Sodium [Moles/Vol] 139 mmol/L Normal 136-145 [facility] Comment on above: Performed By: #### 8 6002 #### [facility] [address] [place] [address], [facility] Urea nitrogen [Mass/Vol] 15 mg/dL Normal 7-25 [facility] Comment on above: Performed By: #### 8 [id number] #### [facility] [address] [place] [address], [place] PERFUSION BLOOD PANELon 06- BASE EXCESS -2.0 mmol/L Normal -2.0-3.0 [facility] Comment on above: Performed By: #### 3 0738 #### [facility] [address] [place] [address], [place] Glucose [Mass/Vol] 169 mg/dL High 70-105 [facility] Comment on above: Performed By: #### 3 0738 #### [facility] [address] [place] [address], [facility] Hematocrit (Bld) [Volume fraction] 34 % Low 38-51 [facility] Comment on above: Performed By: #### 3 0738 #### [facility] [address] [place] [address], [facility] Hemoglobin (Bld) [Mass/Vol] 11.6 g/dL Low 12.0-17.0 [facility] Comment on above: Performed By: #### 3 0738 #### [facility] [address] [place] [address], [facility] IONIZED CALCIUM 1.20 mmol/L Normal 1.12-1.32 [facility] Comment on above: Performed By: #### 3 0738 #### [facility] [address] [place] [address], [facility] Oxygen (Bld) [Partial pressure] 410.0 mm[Hg] High 80.0-105.0 [facility] Comment on above: Performed By: #### 3 0738 #### [facility] [address] [facility] [place] [address], [facility] PCO2 49.2 mmHg High 35.0-45.0 [facility] Comment on above: Performed By: #### 3 0738 #### [facility] [address] [place] [address], [facility] pH (Bld) 7.31 [pH] Low 7.35-7.45 [facility] Comment on above: Performed By: #### 3 0738 #### [facility] [address] [place] [address], [facility] Potassium [Moles/Vol] 4.0 mmol/L Normal 3.5-4.9 [facility] Comment on above: Performed By: #### 3 0738 #### [facility] [address] [place] [address], [facility] Sodium [Moles/Vol] 142 mmol/L Normal 138-146 [facility] Comment on above: Performed By: #### 3 0738 #### [facility] [address] [place] [address], [facility] POC GLUCOSE LABon 11-04-2019 Glucose [Mass/Vol] 196 mg/dL High 70-100 [facility] Comment on above: Performed By: #### 8 [id number] #### [facility] [address] [place] [address], [facility] Glucose [Mass/Vol] 215 mg/dL High 70-100 [facility] Comment on above: Performed By: #### 8 [id number] #### [facility] [address] [place] [address], [facility] RBC'S 2 UNITSon 11-04-2019 CROSSMATCH INTERP 1 COMP Normal [facility] Comment on above: Performed By: #### 8 [id number] #### [facility] [address] [place] [place] [address], [facility] CROSSMATCH INTERP 2 COMP Normal [facility] Comment on above: Performed By: #### 8 [id number] #### [facility] [address] [facility] [place] [address], [facility] PRODUCT CODE 1 E0336 Normal [facility] Comment on above: Performed By: #### 8 [id number] #### [facility] [address] [facility] [place] [address], [facility] PRODUCT CODE 2 E0336 Normal [facility] Comment on above: Performed By: #### 8 [id number] #### [facility] [address] [facility] [place] [address], [facility] PRODUCT STATUS 1 RE Normal [facility] Comment on above: Result Comment: Resu lt changed by IF on 11/05/2019 21:39. The previous value was XM. Performed By: #### 8 [id number] #### [facility] [address] [place] [address], [facility] PRODUCT STATUS 2 RE Normal [facility] Comment on above: Result Comment: Resu lt changed by IF on 11/05/2019 21:39. The previous value was XM. Performed By: #### 8 [id number] #### [facility] [address] [place] [id number], [facility] UNIT ABO 1 A Normal [facility] Comment on above: Performed By: #### 8 [id number] #### [facility] [address] [place] [address], [facility] UNIT ABO 2 A Normal [facility] Comment on above: Performed By: #### 8 [id number] #### [facility] [address] [place] [address], [facility] UNIT ID 1 [id number] Normal [facility] Comment on above: Performed By: #### 8 [id number] #### [facility] [address] [place] [address], [facility] UNIT ID 2 [id number] Normal [facility] Comment on above: Performed By: #### 8 [id number] #### [facility] [address] [place] [address], [facility] UNIT RH 1 Positive Normal [facility] Comment on above: Performed By: #### 8 [id number] #### [facility] [address] [place] [address], [facility] UNIT RH 2 Positive Normal [facility] Comment on above: Performed By: #### 8 [id number] #### [facility] [address] [place] [address], [facility] *MRSA/MSSA DNA NASALon 10-30 *MRSA/MSSA DNA NASAL Clinical Report: (D ) Specimen: NASAL SWAB Collected: 10/31/2019 16:01 Status: Final Last Updated: 11/01/2019 11:35 MSSA DNA (Final) Negative MRSA DNA (Final) Negative Normal [facility] Comment on above: Performed By: #### 8 [id number] #### [facility] [address] *SARS-CoV-2 COVID-19on 10-30 [id number] Not Detected Normal Not Detected [facility] Comment on above: Order Comment: The A ptima SARS-CoV-2 assay is a nucleic acid amplification test intended for the qualitative detection of RNA from SARS-CoV-2 isolated and purified from nasopharyngeal (DATA COMPILER), nasal and oropharyngeal (OP) swab specimens from patients with signs and symptoms of infection who are suspected of COVID-19. Results are for the identification of SARS-CoV-2 RNA. The SARS-CoV-2 RNA is generally detectable in nasopharyngeal and oropharyngeal swabs during the acute phase of infection. The Aptima SARS-CoV-2 Assay on the Spry and Spry Fusion system is intended for use by laboratory personnel specifically instructed and trained in the operation of the Ecru and Spry Fusion system. The Aptima SARS-CoV-2 assay is [...] information. Performed By: #### 3 [id number] #### [facility] [address] [facility]. [address] CBC COMPLETE BLOOD COUNTon 0 10-31-2019 Erythrocyte distribution width (RBC) [Ratio] 11.9 % Normal 11.5-15.0 [facility] Comment on above: Performed By: #### 8 [id number] #### [facility] [address] Hematocrit (Bld) [Volume fraction] 41.2 % Normal 39.0-50.0 [facility] Comment on above: Performed By: #### 8 [id number] #### [facility] [address] Hemoglobin (Bld) [Mass/Vol] 13.8 g/dL Normal 13.0-17.0 [facility] Comment on above: Performed By: #### 8 [id number] #### [facility] [address] [facility] [place] [address], [facility] MCH (RBC) [Entitic mass] 30.4 pg Normal 27.0-33.0 [facility] Comment on above: Performed By: #### 8 [id number] #### [facility] [address] [place] [address], [facility] MCHC (RBC) [Mass/Vol] 33.5 g/dL Normal 32.0-35.0 [facility] Comment on above: Performed By: #### 8 [id number] #### [facility] [address] [place] [address], [facility] MCV (RBC) [Entitic vol] 90.7 fL Normal 82.0-98.0 [facility] Comment on above: Performed By: #### 8 [id number] #### [facility] [facility] [address] [place] [address], [facility] Nucleated RBC/100 WBC (Bld) [Ratio] 0 % Normal 0-0 [facility] Comment on above: Performed By: #### [id number] #### [facility] [address] [facility] [place] [address], [facility] PLAT CNT 216 10*3/uL Normal 150-400 [facility] Comment on above: Performed By: #### [id number] #### [facility] [address] [place] [address], [facility] RBC (Bld) [#/Vol] 4.54 10*6/uL Normal 4.20-5.70 [facility] Comment on above: Performed By: #### [id number] #### [facility] [address] [facility] [place] [place] [address], [facility] WBC (Bld) [#/Vol] 8.20 10*3/uL Normal 4.00-10.60 [facility] Comment on above: Performed By: #### [id number] #### [facility] [address] [facility] HEMOGLOBIN A1Con 10-31-2019 HbA1c (Bld) [Mass fraction] 177 mg/dL High 70-126 [facility] Comment on above: Performed By: #### [id number] #### [facility] [address] HbA1c (Bld) [Mass fraction] 7.8 % High 4.0-6.0 [facility] Comment on above: Performed By: #### [id number] #### [facility] [address] [facility] PROTHROMBIN TIMEon 0 INR Coag (PPP) [Relative time] 1.39 {INR} High 0.91-1.16 [facility] Comment on above: Result Comment: ACCC P [...] RANGE. CHEST 1995;108:[id number]. Performed By: #### [id number] #### [facility] [address] [place] [address], [facility] INR Coag (PPP) [Relative time] 1.38 {INR} High 0.91-1.16 [facility] Comment on above: Result Comment: ACCC P [...] 1995;108:[id number]. Performed By: #### [id number] #### [facility] [address] [place] [address], [facility] PT Coag (PPP) [Time] 17.1 s High 12.3-14.8 [facility] Comment on above: Result Comment: ALL RESULTS MUST BE INTERPRETED WITH RESPECT TO BLOOD DRAWING ARTIFACT OR DILUTION ERROR OF ANTICOAGULANT AT THE TIME OF SAMPLING. Performed By: #### [id number] #### [facility] [address] [place] [address], [place] PT Coag (PPP) [Time] 17.2 s High 12.3-14.8 [facility] Comment on above: Result Comment: ALL RESULTS MUST BE INTERPRETED WITH RESPECT TO BLOOD DRAWING ARTIFACT OR DILUTION ERROR OF ANTICOAGULANT AT THE TIME OF SAMPLING. Performed By: #### [id number] #### [facility] [address] [facility] [place], [place] [id number] [place] [address] TYPE AND SCREENon 10-31-2019 ABO INTERPRETATION A Normal [facility] Comment on above: Performed By: #### [id number] #### [facility] [address] [place] [address], [facility] RH INTERPRETATION Positive Normal [facility] Comment on above: Performed By: #### [id number] #### [facility] [address] [facility] [place] [address], [facility] CBCOrdered By: Blas gonzales on 05-12-2019 Erythrocyte distribution width (RBC) [Ratio] 11.8 % 11.8 - 14.4 % [facility] Phone: Hematocrit (Bld) [Volume fraction] 45.2 % 40.7 - 50.3 % [facility] Phone: Hemoglobin (Bld) [Mass/Vol] 14.6 g/dL 13 - 17 g/dL [facility] Phone: MCH (RBC) [Entitic mass] 30.5 pg 25.2 - 33.5 pg [facility] Phone: MCHC (RBC) [Mass/Vol] 32.3 g/dL 28.4 - 34.8 g/dL [facility] Phone: MCV (RBC) [Entitic vol] 94.4 fL 82.6 - 102.9 fL [facility] Phone: NRBC Automated 0.0 0.0 per 100 WBC [facility] Phone: Platelet mean volume (Bld) [Entitic vol] 9.0 fL 8.1 - 13.5 fL [facility] Phone: Platelets (Bld) [#/Vol] 204 10*3/uL [facility] Phone: RBC (Bld) [#/Vol] 4.79 10*6/uL 4.21 - 5.77 m/uL [facility] Work Phone: WBC (Bld) [#/Vol] 8.0 10*3/uL [facility] Work Phone: Vital Signs Date Time Vital Sign Value Performing Clinician Facility 06-25-2023 08:50-0500 Blood Pressure Location [facility] 06-25-2023 08:50-0500 Diastolic blood pressure 64 mm[Hg] [employer] [facility] 06-25-2023 08:50-0500 Heart rate 74 /min [employer] [facility] 06-25-2023 08:50-0500 Respiratory rate 16 /min Cristo RIVERA [facility] 06-25-2023 08:50-0500 Systolic blood pressure 108 mm[Hg] Cristo RIVERA [facility] 02-26-2023 08:57-0400 Blood Pressure Location [employer] [facility] 02-26-2023 08:57-0400 Diastolic blood pressure 60 mm[Hg] Cristo RIVERA [facility] 02-26-2023 08:57-0400 Heart rate 69 /min [employer] [facility] 02-26-2023 08:57-0400 Respiratory rate 16 /min [employer] [facility] 02-26-2023 08:57-0400 Systolic blood pressure 118 mm[Hg] Cristo RIVERA [facility] 11-27-2022 09:34-0400 Blood Pressure Location Cristo RIVERA [facility] 11-27-2022 09:34-0400 Diastolic blood pressure 51 mm[Hg] Cristo RIVERA [facility] 11-27-2022 09:34-0400 Heart rate 64 /min Cristo RIVERA [facility] 11-27-2022 09:34-0400 Respiratory rate 16 /min Cristo RIVERA [facility] 11-27-2022 09:34-0400 Systolic blood pressure 89 mm[Hg] [facility] 09-11-2022 12:30-0400 Body height 165.1 cm Mary Beth Pitts Other [employer] Other 09-11-2022 12:30-0400 Body mass index (BMI) [Ratio] 29.78 kg/m2 Mary Beth Pitts Other [employer] Other 09-11-2022 12:30-0400 Body weight 81.19 kg Mary Beth Pitts Other [employer] Other 09-11-2022 12:30-0400 Diastolic blood pressure 62 mm[Hg] Mary Beth Pitts Other [employer] Other 09-11-2022 12:30-0400 SaO2% (BldA) [Mass fraction] 94 % Mary Beth Pitts Other [employer] Other 09-11-2022 12:30-0400 Systolic blood pressure 110 mm[Hg] Mary Beth Pitts Other [employer] Other 08-24-2022 11:45-0400 Body height 165.1 cm Mary Beth Pitts Other [employer] Other 08-24-2022 11:45-0400 Body mass index (BMI) [Ratio] 29.62 kg/m2 Mary Beth Pitts Other [employer] Other 08-24-2022 11:45-0400 Body weight 80.74 kg Mary Beth Pitts Other [employer] Other 08-24-2022 11:45-0400 Diastolic blood pressure 58 mm[Hg] Mary Beth Pitts Other [employer] Other 08-24-2022 11:45-0400 SaO2% (BldA) [Mass fraction] 95 % Mary Beth Pitts Other [employer] Other 08-24-2022 11:45-0400 Systolic blood pressure 112 mm[Hg] Mary Beth Pitts Other [employer] Other 07-11-2022 09:45-0500 Body height 165.1 cm Mary Beth Pitts Other [employer] Other 07-11-2022 09:45-0500 Body mass index (BMI) [Ratio] 29.62 kg/m2 Mary Beth Pitts Other [employer] Other 07-11-2022 09:45-0500 Body weight 80.74 kg Mary Beth Pitts Other [employer] Other 07-11-2022 09:45-0500 Diastolic blood pressure 52 mm[Hg] Mary Beth Pitts Other [employer] Other 07-11-2022 09:45-0500 SaO2% (BldA) [Mass fraction] 97 % Mary Beth Pitts Other [employer] Other 07-11-2022 09:45-0500 Systolic blood pressure 108 mm[Hg] Mary Beth Pitts Other [employer] Other 06-05-2022 09:38-0500 Diastolic blood pressure 60 mm[Hg] [facility] 06-05-2022 09:38-0500 Mean blood pressure 84 mm[Hg] [facility] 06-05-2022 09:38-0500 Systolic blood pressure 131 mm[Hg] [facility] 06-05-2022 09:32-0500 Blood Pressure Location [facility] 06-05-2022 09:32-0500 Diastolic blood pressure 73 mm[Hg] [facility] 06-05-2022 09:32-0500 Heart rate 74 /min [facility] 06-05-2022 09:32-0500 Respiratory rate 16 /min [facility] 06-05-2022 09:32-0500 Systolic blood pressure 149 mm[Hg] [facility] 03-19-2022 11:53-0500 Body temperature 98 [degF] MD Mary Beth Pitts Work Phone: [facility] 03-19-2022 11:53-0500 Diastolic blood pressure 74 mm[Hg] MD Mary Beth Pitts Work Phone: [facility] 03-19-2022 11:53-0500 Heart rate 86 /min MD Mary Beth Pitts Work Phone: [facility] 03-19-2022 11:53-0500 Respiratory rate 18 /min MD Mary Beth Pitts Work Phone: [facility] 03-19-2022 11:53-0500 SaO2% (BldA) [Mass fraction] 97 % MD Mary Beth Pitts Work Phone: [facility] 03-19-2022 11:53-0500 Systolic blood pressure 135 mm[Hg] MD Mary Beth Pitts Work Phone: [facility] 03-19-2022 05:36-0500 Body weight 91.9 kg MD Mary Beth Pitts Work Phone: [facility] 03-16-2022 23:20-0400 Body height 165.1 cm MD Mary Beth Pitts Work Phone: [facility] 03-14-2022 12:28-0400 Blood Pressure Location Crist[facility] 03-14-2022 12:28-0400 Diastolic blood pressure 74 mm[Hg] [facility] 03-14-2022 12:28-0400 Heart rate 80 /min Crist[facility] 03-14-2022 12:28-0400 Systolic blood pressure 150 mm[Hg] Crist[facility] 02-27-2022 09:24-0400 Blood Pressure Location Cristo RVIERA [facility] 02-27-2022 09:24-0400 Diastolic blood pressure 72 mm[Hg] [facility] 02-27-2022 09:24-0400 Heart rate 83 /min Crist[facility] 02-27-2022 09:24-0400 Respiratory rate 16 /min Crist[facility] 02-27-2022 09:24-0400 Systolic blood pressure 130 mm[Hg] [facility] 09-19-2021 13:45-0400 Diastolic blood pressure 48 mm[Hg] Roberta Vazquez DO Work Phone: [facility] 09-19-2021 13:45-0400 Heart rate 65 /min Roberta Vazquez DO Work Phone: [facility] 09-19-2021 13:45-0400 Respiratory rate 20 /min Roberta Vazquez DO Work Phone: [facility] 09-19-2021 13:45-0400 SaO2% (BldA) [Mass fraction] 95 % Roberta Vazquez DO Work Phone: [facility] 09-19-2021 13:45-0400 Systolic blood pressure 113 mm[Hg] Roberta Vazquez DO Work Phone: [facility] 09-19-2021 13:23-0400 Body temperature 96.91 [degF] Roberta Vazquez DO Work Phone: [facility] [employer] 09-19-2021 11:57-0400 Body height 170.2 cm Roberta Vazquez DO Work Phone: [facility] 09-19-2021 11:57-0400 Body mass index (BMI) [Ratio] 25.84 kg/m2 Roberta Vazquez DO Work Phone: [facility] 09-19-2021 [id number] Body weight 74.84 kg Roberta Vazquez DO Work Phone: [facility] Encounters Encounter Date Encounter Type Care Provider Facility Start: 09-27-2023 ambulatory [facility]ALL [facility] Start: 09-20-2023 ambulatory MARSHALL LUONG [facility] Start: 09-12-2023 Encounter for other preprocedural examination [facility] Start: 09-12-2023 Evaluation and management of inpatient MARSHALL LUONG [facility] Start: 09-10-2023 End: 09-12-2023 Encounter for other preprocedural examination [facility] Start: 09-10-2023 End: 09-12-2023 Evaluation and management of inpatient [facility] Start: 08-21-2023 End: 08-21-2023 ambulatory [facility] Start: 08-17-2023 End: 08-17-2023 ambulatory [facility] Start: 07-12-2023 End: 07-12-2023 ambulatory KAMILA WILSON Not Available Start: 06-25-2023 End: 06-26-2023 ambulatory Cristo RIVERA Facility:[facility] Start: 06-25-2023 End: 06-25-2023 Patient encounter procedure Cristo RIVERA [facility] Start: 06-15-2023 End: 06-15-2023 ambulatory [facility] Start: 06-13-2023 ambulatory Lulu Cage y:ERICA Morfin Start: 05-28-2023 End: 05-29-2023 ambulatory Cristo RIVERA Facility:[facility] Start: 04-04-2023 End: 04-04-2023 ambulatory Mary Beth Pitts Other [employer] Other Start: 04-04-2023 Telephone encounter Mary Beth Pitst [facility] Start: 02-26-2023 End: 02-27-2023 ambulatory Cristo Yvrose NICOLE Facility:[facility] Start: 02-26-2023 End: 02-26-2023 Patient encounter procedure Cristo RIVERA [facility] [place] Start: 12-29-2022 End: 12-29-2022 ambulatory Mahendra Escalante Other [employer] Other Start: 12-29-2022 Telephone encounter Mahendra barry [facility] [employer] Start: 12-13-2022 End: 12-13-2022 ambulatory [facility] Start: 11-27-2022 End: 11-28-2022 ambulatory Cristo RIVERA Facility:[facility] Start: 11-27-2022 End: 11-27-2022 Patient encounter procedure Cristo RIVER[facility] [place] Start: 11-23-2022 End: 11-23-2022 ambulatory Mary Beth Pitts Other [employer] Other Start: 11-23-2022 Telephone encounter Mary Beth Pitts [facility] Start: 09-18-2022 End: 09-18-2022 ambulatory Mary Beth Pitts Other [employer] Other Start: 09-18-2022 Telephone encounter Mary Beth Pitts [facility] Start: 09-11-2022 End: 09-11-2022 ambulatory Mary Beth Pitts Other [employer] Other Start: 09-11-2022 Office outpatient vi sit 15 minutes Mary Beth Pitts [facility] Start: 08-24-2022 End: 08-24-2022 ambulatory Mary Beth Pitts Other [employer] Other Start: 08-24-2022 Office outpatient vi sit 15 minutes Mary Beth Pitts [facility] Start: 07-20-2022 End: 07-21-2022 ambulatory Cristo RIVERA Facility:[facility] Start: 07-20-2022 End: 07-20-2022 Patient encounter procedure Cristo RIVERA [facility] Start: 07-18-2022 End: 06-29-2022 Patient encounter procedure Cristo RIVERA [facility] Start: 07-12-2022 End: 07-12-2022 ambulatory Mary Beth Pitts Other [employer] Other Start: 07-12-2022 Telephone encounter Mary Beth Pitts [facility] Start: 07-11-2022 Office outpatient vi sit 15 minutes Mary Beth Pitts [facility] Start: 07-11-2022 End: 07-11-2022 ambulatory Blas Ospina Facility:[facility] Start: 07-11-2022 End: 07-11-2022 ambulatory MD Mary Beth Pitts Work Phone: [facility] Work Phone: Start: 07-11-2022 End: 07-11-2022 Patient encounter procedure MD Mary Beth Pitts Work Phone: [facility] [place] Work Phone: Start: 06-29-2022 End: 06-30-2022 ambulatory Cristo RIVERA Facility:[facility] Start: 06-05-2022 End: 06-05-2022 Patient encounter procedure Cristo RIVERA [facility] [place] Start: 04-29-2022 End: 04-30-[address] CRISTO RIVERA Facility:[facility] Start: 03-17-[address] Jc Shetty Facility:[id number] Start: 03-17-[address] Mary Beth Pitts Facility:[facility] Start: 03-17-[address] Mary Beth Pitts Facility:[id number] Start: 03-17-2022 End: 03-19-2022 Evaluation and management of inpatient Neno Moreira Facility:[facility] Start: 03-16-2022 End: 03-19-2022 Evaluation and management of inpatient MD Mary Beth Pitts Work Phone: [facility] Start: 03-16-2022 End: 03-17-2022 ambulatory GALEN MEDINA Facility:[facility] Start: 03-14-2022 End: 03-14-2022 Patient encounter procedure Cristo RIVERA [facility] Start: 03-03-2022 End: 03-04-[address] MARY BETH PITTS Facility:[facility] Start: 02-27-2022 End: 02-27-2022 Patient encounter procedure Cristo RIVERA [facility] Start: 12-16-2021 End: 12-17-2021 ambulatory [facility] Start: 12-08-2021 Adult health examination Supriya Escalante Other [employer] Other Start: 12-08-2021 Problem, abnormal examination Mahendra Escalante Other [employer] Other Start: 12-01-2021 End: 12-02-2021 ambulatory MARY BETH [facility] Start: 12-01-2021 End: 12-01-2021 Subsequent hospital visit by physician Mary Beth Pitts MD Work Phone: [facility] Start: 09-19-2021 End: 09-19-2021 ambulatory MARY BETH PITTS [facility] Start: 09-19-2021 End: 09-19-2021 Subsequent hospital visit by physician Roberta Vazquez DO Work Phone: [facility] Start: 07-05-2021 End: 07-06-2021 ambulatory Gerald Villagomez MD Facility[facility] Start: 06-14-2021 End: 06-15-2021 ambulatory MD Mary Beth Pitts Facility:[facility] Start: 06-09-2021 End: 06-09-2021 ambulatory MD Mary Beth Pitts Facility:[facility] Start: 06-08-2021 End: 06-09-2021 ambulatory Gerald Villagomez MD Facility:[facility] Start: 06-02-2021 End: 06-03-2021 ambulatory MD Mary Beth Pitts Facility:[facility] Start: 05-27-2021 End: 05-28-2021 ambulatory Gerald Villagomez MD Facility:[facility] Start: 05-19-2021 End: 05-20-2021 ambulatory MD Mary Beth Pitts Facility:[facility] Start: 09-27-2020 End: 09-27-2020 Subsequent hospital visit by physician Mary Beth Pitts MD Work Phone: [facility] Start: 03-29-2020 End: 03-30-2020 Patient encounter procedure SWETHA WINTER Facility:[facility] Start: 02-23-2020 End: 02-24-2020 Patient encounter procedure MARY BETH PITTS Facility:[facility] Start: 02-12-2020 End: 02-14-2020 Evaluation and management of inpatient PEREZ ALI Facility:[facility] Start: 11-04-2019 End: 11-05-2019 Evaluation and management of inpatient SANTANA MASROOR Facility:[facility] Start: 05-12-2019 End: 05-12-2019 Subsequent hospital visit by physician Mary Beth Pitts MD Work Phone: [facility] Procedures Date Procedure Procedure Detail Performing Clinician Start: 07-18-2022 Cystoscopy Cristo MARTIN Start: 07-11-2022 Plain X-ray of right hip MD Mary Beth Pitts Work Phone: Start: 03-17-2022 [facility] Angio w/grafts MD Mary Beth Pitts Work Phone: Start: 03-14-2022 Cystoscopy Cristo KERA MARTIN Start: 03-14-2022 Cystourethroscopy wi th dilation of urethral stricture Cristo NICOLE Start: 12-01-2021 PSA screening Mary Beth richey [...] on above: Performed By: #### [id number] ####[facility] [facility] [place] [address], [facility] Start: 11-04-2019 MEASURE OF ARTERIAL SATURATION, PERIPHERAL, PERC APPROACH REYNALDO COX Start: 11-04-2019 MEASURE OF CARDIAC S AMPL \T\ PRESSURE, L HEART, PERC APPROACH BLAS OSPINA Start: 11-04-2019 REPLACEMENT OF AORTI C VALVE WITH ZOOPLASTIC, PERC APPROACH SANTANA MASROOR Start: 10-31-2019 Antibody screen NIC AYALA Comment on above: Performed By: #### [id number] #### [facility] [address] [facility] [place] [address], [facility] Start: 05-12-2019 Blood count complete automated Blas Ospina MD Work Phone: Start: 03-03-2015 Screening for malign ant neoplasm of prostate Mahendra Escalante Other Cataract (disorder) Cristo RIVERA Coronary artery bypa ss grafts x 4 Cristo RIVERA Replacement of aortic valve Cristo RIVERA Screening for malign ant neoplasm of prostate Mary Beth Pitts Other Screening for malign ant neoplasm of prostate [employer]hendra [employer]al[employer] Other Urine culture MD Mary Beth murcia Work Phone: Plan of Treatment Date Care Activity Detail Author Start: 11-19-2023 ambulatory Ambulatory Facility[facility] [place] Start: 07-11-2022 Duplex scan of lower limb veins US venous duplex LE RT [facility] Start: 07-11-2022 US Lower extremity v ein - right [facility] Start: 03-21-2022 [facility] Start: 03-20-2022 Blood [facility] Start: 03-20-2022 [facility] Start: 03-19-2022 [facility] Start: 03-18-2022 Referral to urologist [facility] Start: 03-17-2022 [facility] Start: 03-17-2022 Hospital admission [facility] Start: 03-17-2022 Referral to form tamper [facility] Start: 03-17-2022 [facility] Start: 01-12-2022 Influenza vaccination [facility] Start: 09-19-2021 End: 09-19-2021 Xcapsl ctrc rmvl insj io lens prosth w/o ecp EYE CATARACT EMULSIFICATION IOL IMPLANT COMBINED FORMS OF AGE RELATED CATARACT 2+NS, 2+PSC, 2+CS 09/19/2021 12:45 PM EDT [facility] Start: 09-04-2021 COVID-19 Vaccine (4 - Booster for Pfizer series) COVID-19 Vaccine (4 - Booster for Pfizer series) [facility] Start: 01-12-2021 Influenza vaccination Flu vacc ine (Season Ended) [facility] Work Phone: Start: 03-21-2019 A1C test (Diabetic o r Prediabetic) A1C test (Diabetic or Prediabetic) [facility] Phone: Start: 03-21-2019 Creatinine measurement [facility] Start: 03-21-2019 Creatinine monitoring Creatinine mon itoring [facility] Phone: Start: 03-21-2019 Diabetic microalbumi lucila test Diabetic microalbuminuria test [facility] Phone: Start: 03-21-2019 Hemoglobin A1c measurement A1C test (Diabetic or Prediabetic) [facility] Phone: Start: 03-21-2019 Lipid panel [facility] Start: 03-21-2019 Lipid screen Lipid screen [facility] Work Phone: Start: 03-21-2019 Potassium [Moles/vol ume] in Serum or Plasma Potassium [facility] Start: 03-21-2019 Potassium monitoring Potassium monit oring [facility] Phone: Start: 01-12-2019 Influenza vaccination Flu vaccine (# 1) [facility] Phone: Start: 11-03-2018 Annual Wellness Visi t (AWV) Annual Wellness Visit (AWV) [facility] Phone: Start: 06-21-2018 Hemoglobin A1c measurement A1C test (Diabetic or Prediabetic) [facility] Start: 2013 Abdominal aortic ane urysm screening AAA screen [facility] Start: 2013 Pneumococcal 65+ yea rs Vaccine (1 - PCV) Pneumococcal 65+ years Vaccine (1 - PCV) [facility] Start: 2013 Pneumococcal 65+ yea rs Vaccine (1 of 1 - PPSV23) Pneumococcal 65+ years Vaccine (1 of 1 - PPSV23) [facility] Phone: Start: 1998 Colon cancer screen colonoscopy Colon cancer screen colonoscopy [facility] Phone: Start: 1998 Screening for malign ant neoplasm of colon Colon cancer screen colonoscopy [facility] Phone: Start: 1998 Shingles Vaccine (1 of 2) Shingles V accine (1 of 2) [facility] Start: 1993 Screening for malign ant neoplasm of colon [facility] Start: 1967 DTaP/Tdap/Td vaccine (1 - Tdap) DTaP/Tdap/Td vaccine (1 - Tdap) [facility] Start: 1966 Hepatitis C screening Hepatitis C sc [employer] [facility] Start: 1960 COVID-19 Vaccine (1) COVID-19 Vaccin e (1) [facility] Work Phone: Start: 1960 Depression Screen Depression Screen [facility] Start: 1959 DTaP/Tdap/Td vaccine (1 - Tdap) DTaP/Tdap/Td vaccine (1 - Tdap) [facility] Phone: Start: 1958 3 comp foot exam completed Diabetic foot exam [facility] Phone: Start: 1958 Diabetic foot examination Diabetic f oot exam [facility] Phone: Start: 1958 Diabetic retinal exam Diabetic retin al exam [facility] Phone: Start: 1948 AAA screen AAA screen [employer] [facility] [employer] Phone: Start: 1950 Abdominal aortic ane urysm screening AAA screen [facility] Phone: Start: 1948 Annual Wellness Visi t (AWV) Annual Wellness Visit (AWV) [facility] [employer] Start: 1948 Hepatitis C screen Hepatitis C scree n [facility] Phone: Start: 1948 Hepatitis C screening Hepatitis C sc gil [facility] Phone: Blood culture for bacteria, including anaerobic screen Blood Culture [facility] End: 12-01-2021 Hemoglobin A1c/Hemoglobin.total in Blood [facility] [employer] Phone: Comment on above: Once for 1 Occurrenc es starting 12/01/2021 until 12/01/2021 Oxygen therapy [[facility] Data Set] Initiate Oxygen Therapy Protocol Respiratory Care Routine Daily until discontinued starting 09/19/2021 [facility] Phone: Comment on above: Daily until disconti nued starting 09/19/2021 Patient Education Urinary Tract Infection, Adult (DC) Sepsis, Adult (DC) [facility] Work Phone: Patient referral [facility] Work Phone: Immunizations Immunization Date Immunization Notes Care Provider Fa cility 08-28-2022 tetanus and diphther ia toxoids, adsorbed, preservative free, for adult use (5 Lf of tetanus toxoid and 2 Lf of diphtheria toxoid) Mary Beth Pitts Other [employer] Other 05-06-2021 COVID-19, Pfizer Purple top, DILUTE for use, 12+ yrs, 30mcg/0.3mL dose Roberta Vazquez [employer] Work Phone: [facility] Phone: 10-22-2020 COVID-19, Pfizer Purple top, DILUTE for use, 12+ yrs, 30mcg/0.3mL dose Roberta George DO Work Phone: [facility] Phone: 10-01-2020 COVID-19, Pfizer Purple top, DILUTE for use, 12+ yrs, 30mcg/0.3mL dose Roberta Vazquez [employer] Work Phone: [facility] Phone: Payers Date Payer Category Payer Medicare [id number] 2022 Unknown [id number] 2021 Self-pay [id number] 2021 Medicaid 2020 Private Health Insurance 2017 Private Health Insurance [id number] 2014 Medicare MEDICARE MEDICAR E PART A AND B xxxxxxxxxxx 2014-Present [phone] [place] [address] xxxxxxxxxxx [id number] 1959 Medicaid [id number] 1948 Unknown [id number] 2.16.840.1.793881.3.579.2. 647 1948 Unknown [id number] 2.16.840.1.199346.3.579.2. 647 1948 Unknown [id number] 2.16.840.1.633039.3.579.2. 647 1948 Unknown [id number] 2.16.840.1.389936.3.579.2. 647 1948 Unknown [id number] 2.16.840.1.153562.3.579.2. 173 1948 Unknown [id number] 2.16.840.1.314535.3.579.2. 173 1948 Unknown [id number] 2.16.840.1.045816.3.579.2. 173 1948 Unknown [id number] 2.16.840.1.924130.3.579.2. 356 1948 Unknown [id number] 2.16.840.1.130545.3.579.2. 356 1948 Unknown [id number] 2.16.840.1.738480.3.579.2. 356 1948 Unknown [id number] 2.16.840.1.784651.3.579.2. 593 1948 Unknown [id number] 2.16.840.1.368925.3.579.2. 593 1948 Unknown [id number] 2.16.840.1.070671.3.579.2. 593 1948 Unknown [id number] 2.16.840.1.141916.3.579.2. 196 1948 Unknown [id number] 2.16.840.1.840395.3.579.2. 196 1948 Unknown [id number] 2.16.840.1.333356.3.579.2. 196 1948 Unknown [id number] 2.16.840.1.515995.3.579.2. 196 1948 Unknown [id number] 2.16.840.1.209736.3.579.2. 196 1948 Unknown [id number] 2.16.840.1.636044.3.579.2. 196 1948 Unknown [id number] 2.16.840.1.988145.3.579.2. 196 1948 Unknown [id number] 2.16.840.1.423450.3.579.2. 727 1948 Unknown [id number] 2.16.840.1.693179.3.579.2. 727 1948 Unknown [id number] 2.16.840.1.187215.3.579.2. 727 1948 Unknown [id number] 2.16.840.1.852938.3.579.2. 727 1948 Unknown [id number] 2.16.840.1.079771.3.579.2. 727 1948 Unknown [id number] 2.16.840.1.399009.3.579.2. 727 1948 Unknown [id number] 2.16.840.1.366758.3.579.2. 727 1948 Unknown [id number] 2.16.840.1.082633.3.579.2. 727 1948 Unknown [id number] 2.16.840.1.326035.3.579.2. 1259 Medicare [id number] 2.16.840.1.411939.19 Unknown [id number] 2.16.840.1.007868.3.579.2. 531 Unknown [id number] 2..840.1.407897.3.579.2. 531 Social History Date Type Detail Facility Start: 10-29-2014 End: 06-05-2022 Tobacco smoking status NHIS Former smoker [facility] End: 05-14-1994 History of tobacco use Current smoker [facility] Start: 10-29-2014 End: 09-19-2021 Alcohol intake Current non-drinker of alcohol (finding) [facility] Phone: Start: 1950 Sex Assigned At Not on file [facility] [employer] Phone: Start: 09-09-2021 End: 09-19-2021 Exposure to SARS-CoV-2 (event) Not sure [facility] Phone: End: 05-14-1994 History of tobacco use Cigarette Smoker [facility] Phone: Start: 09-19-2021 Tobacco use and exposure Smokeless tobacco non-user [facility] Phone: Start: 06-25-2023 Tobacco smoking status Never [facility] Sex Assigned At Male [facility] Start: 1950 Sex Assigned At Male [facility] Medical Equipment Procedure Code Equipment Code Equipment Origin al Text Equipment Identifier Dates Lens Intraocular Bcnvx 19+ Diopt 6x12.5 Mm Acryl Envista - [id number] Start: 09-19-2021 Accu-Chek Softcl ix Lancets - Start: 11-22-2022 Goals Date Patient Goal Desired Activity /State Functional Status Date Assessment Result Facility 06-25-2023 Functional Status N/A [facility] 02-26-2023 Functional Status N/A [facility] 11-27-2022 Functional Status N/A [facility] 06-05-2022 Functional Status N/A [facility] 03-19-2022 Functional status Patient at Baseline [facility] Work Phone: 03-16-2022 Functional status Functional Status Comme nt [facility] Work Phone: 03-14-2022 Functional Status N/A [facility] 02-27-2022 Functional Status N/A [facility] Mental Status Date Assessment Result Facility 03-19-2022 Cognitive function Cognitive Sta tus Patient at Baseline [facility] Work Phone: Clinical Notes 06-09-2021 to 09-27-2023 Note Date & Type Note Facility 09-27-2023 Note Subjective Patient ID: Marilu Dan is a 73 y.o. male who presents for 2 week follow up s/p common femoral artery,superficial femoral artery ,profunda femoral artery on 09/09, c/o right leg pain HPI Marilu Dan is a 73 y.o. 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 He was admitted postoperatively and had uneventful postoperative course. Patient was seen last week and noted to have some scant amount of drainage with hematoma/seroma present. Patient noted continued drainage from the groin and a small amount. He does have some superficial dehiscence of the incision. He does have increased right lower extremity edema since last visit. They have been using diabetic socks and not traditional compression stockings. He does have persistent numbness in about a 3 inch strip from his medial thigh down the leg through the ankle. No motor or color changes. which has been unchanged. Patient completed prophylactic antibiotic. Review of Systems Constitutional: Negative. HENT: Negative. Eyes: Negative. Respiratory: Negative. Cardiovascular: Positive for leg swelling. BLE Gastrointestinal: Negative. Endocrine: Negative. Genitourinary: Negative. Musculoskeletal: Right leg pain Skin: Negative. Allergic/Immunologic: Negative. Neurological: Negative. Hematological: Negative. Psychiatric/Behavioral: Negative. Objective There were no vitals taken for this visit. Physical Exam Constitutional: General: He is not in acute distress. Appearance: Normal appearance. He is not ill-appearing. HENT: Head: Normocephalic and atraumatic. Eyes: General: No scleral icterus. Pupils: Pupils are equal, round, and reactive to light. Cardiovascular: Rate and Rhythm: Normal rate and regular rhythm. Comments: Weakly palpable DP, PT consistent on discharge day from hospital Right groin incision with 2 areas of dehiscence. There is some sloughing to the wound bed and a moderate amount of serous drainage. There is underlying seroma versus hematoma without signs of infection Pulmonary: Effort: Pulmonary effort is normal. Breath sounds: Normal breath sounds. Musculoskeletal: Cervical back: Neck supple. Right lower leg: Edema present. Comments: Decreased sensation medial thigh and calf. Normal color and temperature of extremity Skin: General: Skin is warm and dry. Neurological: General: No focal deficit present. Mental Status: He is alert and oriented to person, place, and time. Psychiatric: Mood and Affect: Mood normal. Behavior: Behavior normal. Thought Content: Thought content normal. Judgment: Judgment normal. Assessment/Plan Diagnoses and all orders for this visit: Non-healing open wound of right groin, initial encounter Dehiscence of operative wound, subsequent encounter PAD (peripheral artery disease) (CMS/HCC) -Start topical therapy with Mesalt, silicone border foam daily for wound management. Educated on wound care. She is available to help but would also like home health care on board. Will refer her to [facility]. -Order for supplies sent for prism -Venous duplex done to rule out concurrent DVT as it has been less mobile postoperatively. Duplex was negative for DVT. Advised patient to continue compression for postoperative edema from reperfusion but he should switch to the traditional 20 to 30 mg of mercury compression. Discussed leg elevation -GDMT: ASA, Xarelto, statin -F/U 2 weeks, sooner with any issues Diagnosis Plan 1. Severe claudication (CMS/HCC) No orders of the defined types were placed in this encounter. No results found for this or any previous visit (from the past 36 hour(s)). No follow-ups on file. [facility] 09-20-2023 Note Subjective Patient ID: Marilu Dan is a 73 y.o. male who presents for Follow-up (Brown leakage @ incision site ). Marilu Dan is a 73 y.o. 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 He was admitted postoperatively and had uneventful postoperative course. Patient was eventually discharged in stable condition on postop day #2. Patient daughter called yesterday and reported that they noted that there was some scant amount of clear with brownish tinged drainage from the central area of the surgical site with some swelling present. She reports her other sister is a nurse that thought there was a hematoma. Patient does have's postoperative/incisional pain which is unchanged in the hospital. Denies any warmth, increased tenderness, foul odor or purulent drainage from the area. He does also report right lower extremity swelling with some skin numbness in about a 3 inch strip from his medial thigh down the leg through the ankle. No motor or color changes. Review of Systems Constitutional: Positive for activity change. HENT: Positive for hearing loss. Eyes: Positive for visual disturbance. Cardiovascular: Positive for leg swelling. Endocrine: Positive for cold intolerance. Musculoskeletal: Positive for joint swelling. Skin: Negative for color change and wound. Allergic/Immunologic: Positive for food allergies. Neurological: Positive for weakness and numbness. Objective Visit Vitals BP 105/55 (BP Location: Left arm, Patient Position: Sitting) Pulse 65 Temp 36.3 ???C (97.3 ???F) (Temporal) Physical Exam Constitutional: General: He is not in acute distress. Appearance: Normal appearance. He is not ill-appearing. HENT: Head: Normocephalic and atraumatic. Eyes: General: No scleral icterus. Pupils: Pupils are equal, round, and reactive to light. Cardiovascular: Rate and Rhythm: Normal rate and regular rhythm. Comments: Weakly palpable DP, PT consistent on discharge day from hospital Right groin with incision intact, there is no area of dehiscence. Scant amount of serosanguinous drainage from medial incision with some dampness of steri strips, removed and evaluated and there is no dehiscence. There is seroma without signs of infection Pulmonary: Effort: Pulmonary effort is normal. Breath sounds: Normal breath sounds. Musculoskeletal: Cervical back: Neck supple. Right lower leg: Edema present. Comments: Decreased sensation medial thigh and calf. Normal color and temperature of extremity Skin: General: Skin is warm and dry. Neurological: General: No focal deficit present. Mental Status: He is alert and oriented to person, place, and time. Psychiatric: Mood and Affect: Mood normal. Behavior: Behavior normal. Thought Content: Thought content normal. Judgment: Judgment normal. Assessment/Plan Diagnoses and all orders for this visit: Prophylactic antibiotic Postprocedural seroma of skin and subcutaneous tissue following other procedure PAD (peripheral artery disease) ([facility]) - cephalexin (Keflex) 500 mg capsule; Take 1 capsule (500 mg) by mouth in the morning, at noon, in the evening, and at bedtime for 10 days. - Exam is most consistent with a postoperative seroma. Hematoma less likely as he did not have a hematoma in the hospital and has no evidence of bleeding on exam. There is small amount of serosanguineous drainage present. Steri-Strips were reapplied over the area and advised them of proper groin care including gently washing with antibacterial soap and if any drainage keeping clean and covered with a dry clean dressing. I will start him on a prophylactic antibiotic given high risk area of infection being in the groin. Patient's family had several concerns about him doing too much and overexerting himself as patient is very headstrong and active. We discussed no lifting or pushing/pulling objects greater than 5 to 10 pounds, no repetitive twisting, squatting, bending. Okay to use the stairs but do this slowly and not repetitively. Patient has follow-up scheduled in 1 week at our [place] office for recheck. No diagnosis found. No orders of the defined types were placed in this encounter. No results found for this or any previous visit (from the past 36 hour(s)). No follow-ups on file. [facility] 09-12-2023 Note [facility] DAILY PROGRESS NOTE Subjective No acute events overnight, feels really good this morning, denies any pain at all at right groin surgical site of RLE. Tolerating diet. VS normal, on room air. BIRDIE done this morning demonstrated improvement- 0.82 Objective Vitals: Vitals: 09/12/23 0820 BP: 123/58 Pulse: 93 Resp: 20 Temp: 37.2 ???C (99 ???F) SpO2: 93% I/O last 3 completed shifts: In: 2418.5 (27.8 mL/kg) [I.V.:1968.5 (22.6 mL/kg); IV Piggyback:450] Out: 1675 (19.3 mL/kg) [Urine:1675 (0.5 mL/kg/hr)] Weight: 87 kg No intake/output data recorded. Physical Exam General Appearance: Awake, Alert & Oriented x3, No Acute Distress Neck: Trachea Midline, No jugular venous distension Pulmonary: Unlabored breathing on room air. No expiratory wheeze. Cardiac: Regular rate Abdomen: soft. Right groin incision with steri strips overlying. groin is soft, no hematoma, erythema, calor, induration Extremity: No edema Bilateral Upper and lower Extremities. Palpable pulses LLE, doplerable dp/pt RLE. Skin: warm and dry without rash Labs: Results from last 7 days Lab Units 09/11/23 0438 WBC AUTO 10*3/uL 8.22 HEMOGLOBIN g/dL 10.1* HEMATOCRIT % 30.2* PLATELETS AUTO 10*3/uL 159 Results from last 7 days Lab Units 09/11/23 0438 SODIUM mmol/L 133* POTASSIUM mmol/L 4.9 CO2 mmol/L 24 BUN mg/dL 17 CREATININE mg/dL 0.94 Medications: amLODIPine, 10 mg, oral, Daily aspirin, 81 mg, oral, Daily ceFAZolin, 2 g, intravenous, q8h dutasteride, 0.5 mg, oral, Daily heparin (porcine), 5,000 Units, subcutaneous, BID isosorbide mononitrate ER, 60 mg, oral, Daily metoprolol tartrate, 50 mg, oral, BID simvastatin, 40 mg, oral, Nightly tamsulosin, 0.4 mg, oral, BID Imaging: Vasc Us Segmental Birdie Narrative: Procedure: The pressures in the lower extremities as well as PVR's were evaluated at different segments including the thigh area, below the knee, ankle and the great toe using 3 cuff method. The Doppler waveform was evaluated at the dorsal pedis and posterior tibial arteries. Impression: Notes: Indication: F/U endarterectomy postop BIRDIE. Please do in am 5/1 as planning to DC in the afternoon Right: Limited exam due to patient movement. Mildly abnormal PVR waveform contour at the thigh, calf, ankle. Monophasic PT and DP CW Doppler waveforms. BIRDIE demonstrates arterial calcification (>1.3). DP BIRDIE is CNO; PT BIRDIE is 0.82. Normal TBI (>0.75).TBI is 0.97. Left: Limited exam due to patient movement. Mildly abnormal PVR waveform contour at the thigh, calf, ankle. Monophasic PT and DP CW Doppler waveforms. BIRDIE demonstrates arterial calcification (>1.3).DP BIRDIE is 1.57; PT BIRDIE is 0.45. Mild disease TBI (0.5-0.74).TBI is 0.59. Assessment/Plan Marilu Dan is a 73 y.o. 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 Uneventful postoperative course. Patient medically stable for discharge. Restart home Xarelto (afib), ASA, statin for GDMT. Reg diet Pain meds as needed Encourage ambulation and IS Monitor groin at home- discussed groin care/lifting/activity restrictions Encourage ambulation and IS DVT ppx with SCDs and SQH Continue asa and statin [facility] Please direct primary wound calls to: [phone] Please direct primary vascular calls to: [phone] [facility] 09-11-2023 Note [facility] Surgery DAILY PROGRESS NOTE Subjective No acute events overnight, feels really good this morning, denies any pain at all at right groin surgical site of RLE. Tolerating diet. VS normal, on room air. Objective Vitals: Vitals: 09/11/23 1551 BP: 121/51 Pulse: 78 Resp: 20 Temp: 36.4 ???C (97.5 ???F) SpO2: 97% I/O last 3 completed shifts: In: 2118.5 (25.2 mL/kg) [I.V.:1968.5 (23.4 mL/kg); IV Piggyback:150] Out: 750 (8.9 mL/kg) [Urine:600 (0.2 mL/kg/hr); Blood:150] Weight: 84 kg I/O this shift: In: 100 [IV Piggyback:100] Out: 150 [Urine:150] Physical Exam General Appearance: Awake, Alert & Oriented x3, No Acute Distress Neck: Trachea Midline, No jugular venous distension Pulmonary: Unlabored breathing on room air. No expiratory wheeze. Cardiac: Regular rate Abdomen: soft. Right groin incision with clean dressing in place, groin is soft, no hematoma. Extremity: No edema Bilateral Upper and lower Extremities. Palpable pulses LLE, doplerable dp/pt RLE. Skin: warm and dry without rash Labs: Results from last 7 days Lab Units 09/11/23 0438 WBC AUTO 10*3/uL 8.22 HEMOGLOBIN g/dL 10.1* HEMATOCRIT % 30.2* PLATELETS AUTO 10*3/uL 159 Results from last 7 days Lab Units 09/11/23 0438 SODIUM mmol/L 133* POTASSIUM mmol/L 4.9 CO2 mmol/L 24 BUN mg/dL 17 CREATININE mg/dL 0.94 Medications: amLODIPine, 10 mg, oral, Daily aspirin, 81 mg, oral, Daily ceFAZolin, 2 g, intravenous, q8h dutasteride, 0.5 mg, oral, Daily heparin (porcine), 5,000 Units, subcutaneous, BID isosorbide mononitrate ER, 60 mg, oral, Daily metoprolol tartrate, 50 mg, oral, BID simvastatin, 40 mg, oral, Nightly tamsulosin, 0.4 mg, oral, BID Imaging: Invasive vascular procedure PROCEDURE PHYSICIAN: Blas Ospina MD . Indications: Marilu Dan is a 73 y.o. male with history of coronary disease status post bypass surgery in the past, history of aortic valve stenosis status post TAVR in 2019, who was recently evaluated in cardiology clinic because of right lower extremity rest pain, severe claudication symptoms, and a severely reduced ABIs on the right. He was referred for lower extremity angiography and possible intervention. Assistants: None. Procedure Performed: Bilateral lower extremity angiography. Abdominal aortoiliac angiogram with runoff. Catheter placement, second order in the right common femoral artery. Access into the left common femoral artery under ultrasound guidance. Limited left common femoral angiogram. Methods: Procedure was explained to the patient with risks and benefits; he signed informed consent. The patient was brought to chemical lab supervisor in a fasting state. The left groin area was prepped and draped in usual fashion. Micropuncture technique was used under ultrasound guidance for access in the left common femoral artery. Inner cannular angiography was performed followed by upsizing to a 5-Belarusian x 11 cm sheath. left lower extremity angiography was performed down to the level of the foot. A 5 Belarusian uniflush catheter was advanced over the wire and placed in the abdominal aorta. Abdominal aortogram with runoff was performed using power injection of contrast and digital subtraction angiography. Initial dose of 2000 units of heparin was administered. A angled Glidewire was advanced and used to cross the aortoiliac bifurcation and the wire was placed in the right common femoral artery. The uniflush catheter was retracted and a 5 Belarusian straight tapered catheter was advanced to the right common femoral artery. right lower extremity angiography was performed down to the level of the foot. Catheter was removed. Hemostasis was achieved by manual compression in the femoral artery. he tolerated the procedure well and was transferred back to the cardiovascular recovery area. Hemodynamic Data: RFA: 106/40 mean 65 SIL: 114/43 mean 70 Aortoiliac angiography: The distal abdominal aorta is patent with mild disease. There is no evidence of aneurysmal dilatation. The common and external iliac arteries are patent bilaterally. The left internal iliac artery is patent with brisk flow. The right internal iliac artery appears to be occluded at its ostium. There is delayed visualization of the right internal iliac artery, likely from collateral circulation. Right lower extremity angiography: The right common femoral artery is occluded in its distal segment at the bifurcation of the SFA and profunda femoris. The occlusion is heavily calcified. The SFA and profunda femoris have delayed filling, there is an extensive network of collateral surrounding them. The SFA appears to be calcified with mild diffuse disease. The right popliteal artery is patent. Below the knee there is evidence of three-vessel runoff to the foot with mild diffuse disease but no occlusive lesions Left lower extremity angiography: The left common femora (more content not included)... [facility] 09-10-2023 Note Patient: Marilu massey Procedure Summary Date: 09/10/23 Room / Location: [facility] OR [address] [place] [address] / [facility] Operating Room Anesthesia Start: 1622 Anesthesia Stop: 1920 Procedures: Common Femoral Artery, Superficial Femoral Artery, Profunda Femoral Artery Thromboendartectomy (Right) PATCH ANGIOPLASTY (Right) Diagnosis: Severe claudication (CMS/HCC) Encounter for pre-operative examination Critical limb ischemia of right lower extremity with rest pain (CMS/HCC) (Severe claudication (CMS/HCC) [I73.9]) (Encounter for pre-operative examination [Z01.818]) (Critical limb ischemia of right lower extremity with rest pain (CMS/HCC) [I70.221]) Surgeons: Anthony Shrestha MD Responsible Provider: Milton Shaw MD Anesthesia Type: general ASA Status: 3 Anesthesia Type: general Vitals Value Taken Time BP 95/83 09/10/231920 Temp 36.0 09/10/231920 Pulse 75 09/10/231920 Resp 21 09/10/231920 SpO2 96 09/10/231920 Anesthesia Post Evaluation Patient location during evaluation: PACU Patient participation: complete - patient participated Level of consciousness: awake and alert Pain score: 2 Pain management: adequate Multimodal analgesia pain management approach Airway patency: patent Two or more strategies used to mitigate risk of obstructive sleep apnea Cardiovascular status: hemodynamically stable Respiratory status: acceptable, room air, spontaneous ventilation and nonlabored ventilation Hydration status: euvolemic Patient is hemodynamically stable and is able to be discharged from PACU per anesthesia protocol. No notable events documented. [facility] 09-10-2023 Note Patient: Marilu massey Procedure Summary Date: 09/10/23 Room / Location: [address] / [facility] Operating Room Anesthesia Start: 1623 Anesthesia Stop: Procedures: Common Femoral Artery, Superficial Femoral Artery, Profunda Femoral Artery Thromboendartectomy (Right) PATCH ANGIOPLASTY (Right) Diagnosis: Severe claudication (CMS/HCC) Encounter for pre-operative examination Critical limb ischemia of right lower extremity with rest pain (CMS/HCC) (Severe claudication (CMS/HCC) [I73.9]) (Encounter for pre-operative examination [Z01.818]) (Critical limb ischemia of right lower extremity with rest pain (CMS/HCC) [I70.221]) Surgeons: Anthony Shrestha MD Responsible Provider: Milton Shaw MD Anesthesia Type: general ASA Status: 3 Anesthesia Post Transport Note Transport to: PACU O2 Route: room air Patient Monitor: direct observation Transport: uneventful Patient condition is: stable Comments: Patient was able to respond and follow verbal commands throughout transport process [facility] 09-10-2023 Note Airway Date/Time: 09/10/2023 4:35 PM Urgency: elective General Information and Staff Patient location during procedure: OR Anesthesiologist: Milton Shaw MD Resident/SPEEDBOAT OPERATOR/CAA: Ramesh Becker MD Performed: resident/SPEEDBOAT OPERATOR/CAA Indications and Patient Condition Indications for airway management: anesthesia Spontaneous Ventilation: absent Sedation level: deep Preoxygenated: yes Patient position: sniffing Mask difficulty assessment: 1 - vent by mask Final Airway Details Final airway type: endotracheal airway Successful airway: ETT Cuffed: yes Successful intubation technique: direct laryngoscopy Endotracheal tube insertion site: oral Blade: Hunter Blade size: #3 ETT size (mm): 7.5 Cormack-Lehane Classification: grade I - full view of glottis Placement verified by: chest auscultation and capnometry Measured from: lips ETT to lips (cm): 23 Number of attempts at approach: 1 Number of other approaches attempted: 0 [facility] 09-10-2023 Note Arterial Line: Date/Time: 09/10/2023 4:40 PM An arterial line was placed Procedure performed using ultrasound guidance.in the OR for the following indication(s): continuous blood pressure monitoring and blood sampling needed. A 22 G (size), 4 inch (length), Angiocath (type) catheter was placed, Seldinger technique used , into the Left brachial artery, secured by Tegaderm and tape. Events: patient tolerated procedure well with no complications. Additional notes: Left Radial attempted but unable to pass wire and catheter through due to possible calcification Staffing Performed: resident/SPEEDBOAT OPERATOR/CAA Anesthesiologist: Milton Shaw MD Resident/SPEEDBOAT OPERATOR: Nury Pimentel MD Performed by: Ramesh Becker MD Authorized by: Milton Shaw MD [facility] 09-10-2023 Note Patient: Marilu massey Procedure Information Date/Time: 09/10/23 1300 Procedure: Common Femoral Artery, Superficial Femoral Artery, Profunda Femoral Artery Thromboendartectomy (Right) Location: [facility] OR 14 [facility] / [facility] Operating Room Surgeons: Anthony Shrestha MD Relevant Problems Cardio (+) Aortic valve stenosis (+) Coronary arteriosclerosis (+) Critical limb ischemia of right lower extremity with rest pain (CMS/HCC) (+) Deep venous thrombosis of lower extremity (CMS/HCC) (+) Hypertensive disorder (+) PAD (peripheral artery disease) (CMS/HCC) Recent TTE echos show EF 55-60%. Clinical information reviewed: Tobacco Allergies Meds Problems Med Hx Surg Hx Fam Hx Soc Hx Physical Exam Airway Mallampati: I TM distance: >3 FB Cardiovascular Rhythm: regular Rate: normal Dental Pulmonary - normal exam Abdominal Other findings: Quit smoking about 2003 or earlier; CABG X 4 vessels; TAVR (bovine) after CABG; DM type II. Denies CVA. Pre-op FSBS 177. Pt.'s daughter was present for part of pre-op interview. Anesthesia Plan ASA 3 general The patient is not a current smoker. Patient was previously instructed to abstain from smoking on day of procedure. Patient did not smoke on day of procedure. intravenous induction Postoperative administration of opioids is intended. Anesthetic plan and risks discussed with patient. Use of blood products discussed with patient who consented to blood products. Plan discussed with resident. Additional Equipment Requests [facility] 08-21-2023 Note [facility] V[facility]Endovascular Surgery Luncheonette Manager Complaint RLE claudication History and Present Illness Marilu Dan is a 73 y.o. White male with multiple comorbidities including CAD s/p CABG, aortic valve stenosis s/p TAVR, Hx of DVT currently on Xarelto, former smoker (quit 30+ years ago), HTN, hyperlipidemia. Patient follows up closely with Cardiology team, he recently started experiencing claudication in the RLE when walking short distances (from calf all the way up to hip on the right side) which has been impairing ADLs. He got ABIs done 07/30/23 that showed Significant right inflow disease with severe hemodynamic impairment of the right lower extremity at rest (Right TBI 0.18, left TBI 0.57). cardiology team scheduled patient for LE angiogram which was performed today and showed significant disease in the CAKE PRESS OPERATOR, SFA and profunda arteries on the right side. Patient assessed and examined at bedside in the PACU unit, denies any RLE pain at rest. No wounds noted on exam. Pulses non palpable on bilateral feet but are present with doppler. Past Medical History Past Medical History: Diagnosis Date COPD (chronic obstructive pulmonary disease) (CMS/HCC) Deep vein thrombosis (CMS/HCC) Diabetes (CMS/HCC) Emphysema lung (CMS/HCC) Hypertension Skin problem Past Surgical History Past Surgical History: Procedure Laterality Date CARDIAC CATHETERIZATION Bilateral 06/05/2019 CARDIAC CATHETERIZATION 03/02/2016 CORONARY ARTERY BYPASS GRAFT CTA ABDOMEN PELVIS W IV CONTRAST 06/24/2019 CT ABDOMEN PELVIS ANGIOGRAM W AND/OR WO IV CONTRAST [place] CONVERSION CTA CHEST W IV CONTRAST 07/11/2019 CT CHEST ANGIOGRAM W AND/OR WO IV CONTRAST [place] CONVERSION Allergies Allergies Allergen Reactions Penicillins Anaphylaxis Erythromycin All mycin drugs, per . Erythromycin Base Levofloxacin Sulfamethoxazole-Trimethoprim Other Current Medications Home Medications Medications Prior to Admission Medication Sig Dispense Refill Last Dose amLODIPine (Norvasc) 10 mg tablet Take 10 mg by mouth in the morning. 08/21/2023 dutasteride (Avodart) 0.5 mg capsule Take 0.5 mg by mouth in the morning. 08/21/2023 isosorbide mononitrate ER (Imdur) 60 mg 24 hr tablet Take 1 tablet (60 mg) by mouth in the morning. 90 tablet 3 08/21/2023 lisinopril 20 mg tablet TAKE 1 TABLET BY MOUTH ONCE A DAY 90 tablet 3 08/21/2023 metFORMIN XR (Glucophage-XR) 500 mg 24 hr tablet Take 1,000 mg by mouth in the morning and at bedtime. 08/20/2023 metoprolol tartrate (Lopressor) 50 mg tablet Take 1 tablet (50 mg) by mouth in the morning and at bedtime. 180 tablet 3 08/21/2023 simvastatin (Zocor) 40 mg tablet Take 1 tablet (40 mg) by mouth at bedtime. 90 tablet 3 08/21/2023 SITagliptin phosphate (Januvia) 100 mg tablet Take 100 mg by mouth in the morning. 08/21/2023 spironolactone (Aldactone) 25 mg tablet TAKE 1/2 TABLET BY MOUTH IN THE MORNING 45 tablet 3 08/21/2023 tamsulosin (Flomax) 0.4 mg 24 hr capsule Take 0.4 mg by mouth in the morning and at bedtime. 08/20/2023 Xarelto 20 mg tablet TAKE 1 TABLET BY MOUTH WITH EVENING MEAL. TAKEWITH FOOD. 90 tablet 3 Past Week nitroglycerin (Nitrostat) 0.4 mg SL tablet Nitrostat 0.4 mg sublingual tablet (Patient not taking: Reported on 08/21/2023) 25 tablet 2 Not Taking Social History Social History Socioeconomic History Marital status: Spouse name: Not on file Number of children: Not on file Years of education: Not on file Highest education level: Not on file Occupational History Not on file Tobacco Use Smoking status: Former Types: Cigarettes Smokeless tobacco: Never Substance and Sexual Activity Alcohol use: Never Drug use: Never Sexual activity: Not on file Other Topics Concern Not on file Social History Narrative Not on file Social Determinants of Health Financial Resource Strain: Not on file Food Insecurity: Not on file Transportation Needs: Not on file Physical Activity: Not on file Stress: Not on file Social Connections: Not on file Intimate Partner Violence: Unknown (07/05/2023) [place] Safety [employer] [place] Fear of Current or Ex-Partner: Not on file Emotionally Abused: Not on file Physically Abused: Not on file Sexually Abused: Not on file Physically or Sexually Abused: Not on file Housing Stability: Not on file Primary Care Physician Mary Beth Pitts MD Family Histroy Family History Problem Relation Name Age of Onset Diabetes Mother Heart attack Mother Diabetes Father Heart attack Father Breast cancer Sister Colon cancer Brother Cervical cancer Child Review Of Systems All 14 points were reviewed and were negative except for what mentioned in the history of presenting illness. Objective Vital signs: Vitals: 08/21/23 1315 08/21/23 1330 08/21/23 1345 08/21/23 1400 BP: 112/58 102/61 117/69 117/77 Pulse: 63 61 67 65 Resp: 16 20 25 16 SpO2: 97% 99% 99% 98% Weight: Height: Te (more content not included)... [facility] 08-21-2023 Note Patient: Marilu massey Procedure Information Date/Time: 08/21/23 1100 Procedure: Lower extremity angiogram Location: [facility] S[facility] 3 / [facility] (Cath) Providers: Blas Ospina MD Clinical information reviewed: Allergies Meds Physical Exam Airway Mallampati: III TM distance: >3 FB Neck ROM: full Cardiovascular Rhythm: regular Rate: normal Dental Pulmonary Abdominal Anesthesia Plan ASA 3 other (Conscious sedation.) Anesthetic plan and risks discussed with patient. Use of blood products discussed with patient who consented to blood products. Additional Equipment Requests [facility] 08-17-2023 Note [place] [facility] Subjective Marilu Dan is a 73 y.o. 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 Duplex of upper extremity 06/17/2018 showed SVT [...] last visit he was diagnosed with left upper extremity DVT and the this was recurrent and therefore he is on lifelong Xare (more content not included)... [facility] 06-25-2023 Hospital Discharge instructions Patient Education 06/25/2023 [...] provider. Document Revised: 04/05/2020 Document Reviewed: 04/05/2020 [employer] Patient Education 2022 [employer]. Follow Up Care 06/20/2023 07:47:35 With:NICOLE DIAZ, Cristo Frances, URL Address: [facility] [address], [place] [address]- [phone] When: Unknown Comments:has f/u scheduled 11/19/23 [facility] 06-15-2023 Note [place] [facility] Subjective Marilu Dan is [...] extremity DVT after he was lifting the head of mathematics. Duplex of upper extremity 06/17/2018 showed SVT [...] last visit he (more content not included)... [facility] 04-04-2023 Evaluation note Encounter Date Diagnosis Assessment Notes Mar, Hyperglycemia due to type 2 diabetes mellitus (ICD-10 - E11.65) [employer] Other 10-16-2023 Hospital Discharge instructions Patient Education 02/26/2023 10:11:01 [...] urethra. Follow these instructions at home: Take vyxe-hjx-igruqiz and prescription medicines only as told by [...] provider. Document Revised: 11/16/2021 Document Reviewed: 11/16/2021 [employer] Patient Education 2022 [employer]. Follow Up Care 11/27/2022 10:22:53 With:NICOLE DIAZ, Cristo Frances, URL Address: [facility] [address], [place] [address]- When:Within 3 Month(s) Comments:w/PVR [facility] 08-02-2023 Note[facility] - [facility] Subjective Marilu Dan is a 72 y.o. year old male patient being seen for 6 mo follow up aortic valve stenosis, CAD, and hypertension. He had an echo yesterday at [facility]. BP has been much better lately. He [...] extremity DVT after he was lifting the head of mathematics. Duplex of upper extremity 06/17/2018 showed SVT [...] with left uppe (more content not included)... [facility]07-17-2023 Hospital Discharge instructions Patient Education 11/27/2022 10:11:18 [...] urethra. Follow these instructions at home: Take tctt-wvp-emfyrxj and prescription medicines only as told by [...] provider. Document Revised: 11/16/2021 Document Reviewed: 11/16/2021 [employer] Patient Education 2022 [employer]. Follow Up Care 09/25/2022 16:49:26 With:NICOLE DIAZ, Cristo Frances, URL Address: [facility] [address], [place] [address]- [phone] When: Unknown Comments:3 mos [facility] [place] 07-13-2023 Evaluation note* Encounter Date Diagnosis Assessment Notes Treatment Notes Treatment Clinical Notes Nov, Hyperglycemia due to type 2 diabetes mellitus (ICD-10 - E11.65) [employer] Other 05-08-2023 Evaluation note* Encounter Date Diagnosis Assessment Notes Treatment Notes Treatment Clinical Notes September, Diabetic polyneuropathy associated with type 2 diabetes mellitus (ICD-10 - E11.42) [employer] Other 05-01-2023 Evaluation note* Encounter Date Diagnosis Assessment Notes Treatment Notes Treatment Clinical Notes September, Skin ulcer of toe of right foot, limited to breakdown of skin (ICD-10 - L97.511) No open area, mainly erythema. Agrees to podiatry referral for nail care and rx shoes. [employer] Other 04-13-2023 Evaluation note* Encounter Date Diagnosis Assessment Notes Treatment Notes Treatment Clinical Notes Aug, Diabetic polyneuropathy associated with type 2 diabetes mellitus (ICD-10 - E11.42) Hand wrote order for diabetic shoes. Trial of Lyrica as a new medication. We will start with low-dose and check again in 1 month consider increasing dose at that time. [employer] Other 02-28-2023 Evaluation note* Encounter Date Diagnosis Assessment Notes Treatment Notes Treatment Clinical Notes Jun, Right leg pain (ICD-10 - M79.604) Discussed US to r/o DVT and then consider more compression hose, elevation and tylenol for pain Jun, Right hip pain (ICD-10 - M25.551) no injury. will base referral if needed on Xray result. [employer] Other 01-23-2023 Hospital Discharge instructions Patient Education 06/05/2022 10:09:34 [...] reconstructed. Follow these instructions at home: Take yiig-vek-vikkgiy and prescription medicines only as told by [...] 05/26/2016 Document Revised: 12/11/2018 Document Reviewed: 12/11/2018 [employer] Patient Education 2020 [employer]. Follow Up Care 05/02/2022 08:31:24 With:NICOLE DIAZ, Cristo Frances, URL Address: [facility] [address], [place] [address]- When: Unknown [facility] 11-05-2022 Progress note Author Neno Moreira [facility] March 18, 2022 10:39am Note Date/Time March 18, 2022 1 0:28am [facility] [address] [place] [address] Hospitalist Progress Note Signed Patient: Marilu Dan MR#: [id number] : 1950 Acct:[id number] Age/Sex: 71 / M Adm Date: 2 Loc: Room: [address] [place] [address] Type: ADM IN Attending Dr: Neno Moreira MD Copies to: ~ Date of Service: 03/18/2022 Subjective Subjective Narrative: Patient was seen and examined at bedside. Patient remained afebrile and hemodynamically stable overnight. Reports improvement in his symptoms. denies any active complaints. Underwent angiographic evaluation yesterday patent grafts, no interventions needed. Also we got a blood culture report from [facility] that showed proteus and Enterobacter detected in [...] 03/18/2203 04 Signed By: <Electronically signed by Nneo Moreira MD> 03/18/[address] [facility] Work Phone: 1(383) 731-266411-04-2022 Consult note Author W Diogenes [facility] November 4th, 2022 2:27pm Note Date/Time March 17, 2022 2 :21pm [facility] [address] [place] [address] Cardiology Consult Note Signed Patient: Marilu Dan MR#: [id number] : 1950 Acct:[id number] Age/Sex: 71 / M Adm Date: 2 Loc: Room: [address] [place] [address] Type: ADM IN Attending Dr: Neno Moreira MD Copies to: MD Neno Gibson MD W Scott Sheldon, DO~ Cardiology HPI History of Present Illness Consult Date: 03/17/22 Reason for Consult: Acute non-ST elevation AR HPI: Mr. Dan is a 71 year old male seen in interventional cardiology consultationat request of the hospitalist for acute non-ST elevation myocardial infarction. Patient was transferred from [place] primarily due to urosepsis. He presented to [...] noted for ASHD with four-vessel bypass in [place] around the 2014 time period. This was followed by TAVR around 2017, and patient continues to follow with primary form tamper Dr. Ospina. He has had no complaints [...] L 0.9 L 0.9 L (1.00-4.8) x10E3/uL [place] # (Auto) 0.9 H 1.0 H 0.9 [...] L (3.2-5.5) gm/dL Intake and Output 03/16/22 03/17/2222 23:59 07:59 15:59 Output Total 825 / [...] signed by Marlon Shetty DO> 03/17/22 1427 [facility] Work Phone: 1(270) 364-335611-04-2022 Progress note Author Neno Moreira [facility] March 17, 2022 2:05pm Note Date/Time March 17, 2022 2 :05pm [facility] [address] [place] [address] Hospitalist Progress Note Signed Patient: Marilu Dan MR#: [id number] : 1950 Acct:[id number] Age/Sex: 71 / M Adm Date: 2 Loc: Room: [address] [place] [address] Type: ADM IN Attending Dr: Neno Moreira [...] Name Freq PRN Reason Stop Dose Admin Aspirin 81 [...] Insuln.Pen SUBCUT 03/17/23 07:59 Not Given TID.WM.HS ELAINE Protocol Insulin Glargine 10 units 03/17/22 09:00 [...] pending - ICU monitoring Hypotension presented on vciomgcdl-ukfcbhpjt-xhzzv responsive ? UA positive for UTI. ? [...] signed by Neno Moreira MD> 03/17/22 1405 [facility] Work Phone: 1([phone]) 606-912211-04-2022 [facility] History and physical note Author Paulina Alexander [facility] March 17, 2022 4:30am Note Date/Time March 17, 2022 4 :25am [facility] [address] [place] [address] Hospitalist H&P Signed Patient: Marilu Dan MR#: [id number] : 1950 Acct:[id number] Age/Sex: 71 / M Adm Date: 2 Loc: Room: [address] [place] [address] Type: ADM IN Attending Dr: Madeline Barry [...] and after discussing the case with our form tamper on-call patient was started on heparin drip [...] % (Auto) 13.2 % (.) 03/17/22 03:38 [place] % (Auto) 14.6 % (.) 03/17/22 03:38 Eos % (Auto) 0.0 % (.) 03/17/22 03:38 Baso % (Auto) 0.2 % (.) 03/17/22 03:38 Neut # (Auto) 5.1 x10E3/uL (1.8-7.7) 03/17/22 03:38 Lymph # (Auto) 0.9 x10E3/uL (1.00-4.8) L 03/17/22 03:38 [place] # (Auto) 1.0 x10E3/uL (0.0-0.8) H 03/17/22 [...] Flomax Documented By: Paulina Walker MD 2 [id number] Signed By: <Electronically signed by Paulina Walker MD> 03/17/[address] [facility] Work Phone: 1([phone]) 173-756611-01-2022 Hospital Discharge instructions Patient Education 03/14/2022 13:27:00 [...] Follow these instructions at home: Medicines Take kimk-spe-xgbghdy and prescription medicines only as told by [...] or the blood stops without treatment. Take rnnq-vtz-ffdibyo and prescription medicines only as told by your health care provider. Drink enough fluid to keep your urine clear or pale yellow. This information is not intended to replace advice given to you by your health care provider. Make sure you discuss any questions you have with your health care provider. Document Released: 04/30/2006 Document Revised: 09/24/2019 Document Reviewed: 06/02/2017 [employer] Patient Education 2020 [employer]. Follow Up Care 02/27/2022 11:25:53 With:NICOLE DIAZ, Cristo Frances, URL Address: [facility] [address] [place] [address]- [phone] When:Within 3 Day(s) Comments:Sunday for tinsley removal [facility] [place] 10-17-2022 Hospital Discharge instructions Patient Education [...] Follow these instructions at home: Medicines Take froo-zfm-nnrcvvp and prescription medicines only as told by [...] or the blood stops without treatment. Take vnab-wfe-ihocssb and prescription medicines only as told by your health care provider. Drink enough fluid to keep your urine clear or pale yellow. This information is not intended to replace advice given to you by your health care provider. Make sure you discuss any questions you have with your health care provider. Document Released: 04/30/2006 Document Revised: 09/24/2019 Document Reviewed: 06/02/2017 [employer] Patient Education 2019 [employer]. Follow Up Care 02/26/2022 13:59:10 With:NICOLE DIAZ, Cristo Frances, URL Address: [facility] [address] [place] [address] [phone] When: Unknown [facility] 04-26-2022 History of Present illness Narrative* Shaista Torres RN - 09/06/2021 1:30 PM EDT Patient received NPO instructions and pre-op medication instructions to be taken on the day of the procedure with a small sip of water. Pt was also given pre-op eye drop instructions from Dr. Mathur. Patient is covid vaccinated, no need to covid test at this time. documented in this [facility] Work Phone: 1(257) 906-726501-27-2022 NoteClinical Information Procedure: left ear auriculectomy, Pre-operative diagnosis: LEFT EAR BASAL CELL CARCINOMA SP Specimen A Left ear antihelix - superior B Left ear antihelix - anterior C Left ear antihelix - inferior D Left ear antihelix - posterior E Left ear antihelix, stitch santamaria superior, 2 stitch santamaria anterior F Left ear helix Gross Description [...] present at the tissue margins. Solar elastosis. [id number] Cody Gomes MD PhD (Electronically signed by) Verified: 06/13/21 12:25[facility] HospitalComment on above:Performed By: #### SPR #### [facility] (DEFAULT) [facility] [place], [place] [address]Discharge summary Author Neno Moreira [facility] March 19, 2022 1:57pm Note Date/Time March 19, 2022 1 :32pm [facility] [address] [place] [address] Discharge Summary Signed Patient: Marilu Dan MR#: [id number] : 1950 Acct:[id number] Age/Sex: 71 / M Adm Date: 2 Loc: Room: [address] [place] [address]: Neno Moreira MD Copies to: [...] and weakness for which he went to [facility] for further evaluation and management. Patient was [...] and after discussing the case with our form tamper on-call patient was started on heparin drip [...] treat underlying urosepsis and follow-up withhis primary form tamper as outpatient. Patient was started on Azactam on admission due to penicillin allergy. Urine and blood cultures from [place] was sent home for which showed Proteus [...] % (Auto) 66.2, Lymph % (Auto) 20.4, [place] % (Auto) 12.2, Eos % (Auto) 1.0, Baso % (Auto) 0.2, Neut # (Auto) 3.3, Lymph # (Auto) 1.0, [place] # (Auto) 0.6, Eos # (Auto) 0.0, [...] PCP after discharge DISCHARGE INSTRUCTIONS FOR CARDIAC SAMPLE DRILLER PHONE NUMBER OF YOUR PHYSICIAN: [phone] PROCEDURE: Heart Cath The following instructions have [...] cold, numb, blue or white, call the form tamper immediately. 4. ACTIVITY: You are advised to [...] bottle, follow the instructions on the bottle. [facility] is not responsible for incorrect prescription [...] <Electronically signed by Neno Moreira MD> 03/19/[address] [place] [address] Work Phone: Evaluation + Plan note Future Appointments Appointment Date:03/14/2022 12:45:00 PM Scheduled Provider:Cristo RIVERA MD Location:[facility] Appointment Type:URO Procedure 15 min Diagnostic Tests Pending * Creatinine 02/27/22 [facility] evaluation + Plan note Future Appointments Appointment Date:03/17/2022 08:30:00 AM Scheduled Provider: Location:[facility] Appointment Type:URO Nurse Visit [facility] Evaluation + Plan note Future Appointments Appointment Date:07/18/2022 01:00:00 PM Scheduled Provider:Cristo RIVERA MD Location:[facility] Appointment Type:URO Procedure 15 min [facility] evaluation + Plan note Future Appointments Appointment Date:02/26/2023 09:30:00 AM Scheduled Provider:Cristo RIVERA MD Location:[facility] Appointment Type:URO Office Visit [facility] evaluation + Plan note Future Appointments Appointment Date:05/28/2023 08:45:00 AM Scheduled Provider:Cristo RIVERA MD Location:[facility] Appointment Type:URO Office Visit [facility] evaluation + Plan note Future Appointments Appointment Date:11/19/2023 08:45:00 AM Scheduled Provider:Cristo RIVERA MD Location:[facility] Appointment Type:URO Office Visit [facility] evaluation note* Diagnosis Combined forms of age-related cataract of left eye- Primary Other and combined forms of senile cataract documented in this encounter [facility] [employer] Work Phone: [email or web address] note* Diagnosis Onset Date Resolution Status Acute UTI acute Tinsley catheter in place prior to arrival acute Gram-negative bacteremia acu te History of heart bypass surgery acute History of heart surgery acu te Hypotension acute NSTEMI (non-ST elevated myocardial infarction) acute Sepsis acute [facility] Work Phone: Evaluation noteNo assessment information available [facility] Work Phone: Evaluation noteNo InformationNort [employer] Other Histjxw general Narrative - Reported* Type Description Date [...] History Heart attack , pneumonia sepsis 02/2022 [employer] Other Hospital course Narrative No data available for this section [facility] Discharge instructions* Instructions* Roberta Vazquez DO - 09/19/2021 SAME DAY SURGERY DISCHARGE [...] the healing period. The office number is [phone]. Take surgery bag and all eye drops to Dr. Vazquez's office tomorrow at 9:50am. You may resume your normal diet. Start your eye drops tomorrow after your post-op appointment: Ofloxacin/Polytrim one drop to the operated eye 4 times daily Prednisolone one drop to the operated eye 4 times daily [facility] Phone: Hospital Discharge instructions Additional Instructions -Take levofloxacin as prescribed daily for 7 more days. Hold Aricept while taking this antibiotics. -Follow up with urology as outpatient -Follow up with cardiology as outpatient -Follow up with PCP after discharge DISCHARGE INSTRUCTIONS FOR CARDIAC SAMPLE DRILLER PHONE NUMBER OF YOUR PHYSICIAN: [phone] PROCEDURE: Heart Cath The following instructions have [...] cold, numb, blue or white, call the form tamper immediately. 4. ACTIVITY: You are advised to [...] bottle, follow the instructions on the bottle. [facility] is not responsible for incorrect prescription information provided by the patient during their visit. Do not stop your medications without consulting your health care provider. Please take the list with you to your next doctor's appointment.[facility] Work Phone: Hospital Discharge instructions No data available for this section [facility] Progress note No data available for this section [facility] reason for visit Narrative* Auth/Cert Specialty Diagnoses / Procedures Referred By Alfredo mancia Referred To Contact Diagnoses Combined forms of age-related cataract COMBINED FORMS OF AGE RELATED CATARACT 2+NS, 2+PSC, 2+CS Procedures MI XCAPSL CTRC RMVL INSJ IO LENS PROSTH W/O ECP EYE CATARACT EMULSIFICATION IOL IMPLANT Roberta Vazquez, [address] [place] [address] [employer] [address] [place] [address] Referral ID Status Reason Start Date Expiration Date Visits Re quested Visits Authorized 1 1 [facility] Phone: Summary Purpose Family History No Family History Records FoundNo Family History Records FoundNo Family History Records FoundNo Family History Records FoundNo Family History Records FoundNo Family History Records Found No data available for this section No Family History Records Found No data available for this section No Family History Records FoundNo Family History Records Found Advance Directives No Advanced Directives Records FoundDocuments on File Type Date Recorded Patient Certified Orthotist Practice Manager Expl anation ACP-Advance Directive ACP-Power of Nutrition Manager Documents on File Type Date Recorded Patient Certified Orthotist Practice Manager Expl anation Advance Directives and Living Will Power of Nutrition Manager Documents on File Type Date Recorded Patient Certified Orthotist Practice Manager Expl anation ACP-Advance Directive ACP-Power of Nutrition Manager Latest Code Status on File Code Status Date Activated Date Inactivated Comments Full Code 09/19/2021 11:42 AM Latest Code Status on File Code Status Date Activated Date Inactivated Comments Full Code 09/19/2021 11:42 AM 09/19/2021 3:59 PM Advance Directive Response Recorded Date/ Time Advance Directives No October 22 12:48pm Hospital Course Note MR#: [id number] [facility] Pt. Name: Marilu Dan Admitted: 11/04/2019 Discharged: [...] symptoms of angina, shortness of breath with mqsy-da-cvinhcvj exertion. He is currently NYHA class 3. The patient was evaluated by our multi-discipli (more content not included)... Note MR#: [id number] [facility] Pt. Name: Marilu Dan Admitted: 02/12/2020 Discharged: [...] man who presented as a transfer from [place] [facility] after injuring his leg during [...] Complaint m79.604 m25.551 Reason for Referral Reason [facility] eds diabetic foot exam, shoes and nail care. Diagnosis 1 Skin ulcer of toe of right foot, limited to breakdown of skin (L97.511) Referral Organization [facility] Referring Provider First Name Mary Beth Referring Provider Last Name Hong Referring Provider Specialty [facility] Referred Organization [facility] Referred Provider KAMILA WILSON Referred Address ,[place], [place],[address] Referred Provider Specialty Podiatry - S urgical Chiropody Referral Priority Routine Additional Source Comments (unrecognized sect ion and content) No Status Records FoundNo Status Records FoundNo Status Records FoundNo Status Records FoundNo Status Records FoundNo Status Records FoundNo Status Records FoundNo Status Records FoundNo Status Records Found INFORMATION SOURCE (unrecogn ized section and content) DATE CREATED AUTHOR 07/02/2020 [facility] DATE CREATED AUTHOR AUTHOR'S ORGANIZ ATION 12/17/2021 [facility] DATE CREATED AUTHOR AUTHOR'S ORGANIZ ATION 03/24/2022 [facility] DATE CREATED AUTHOR AUTHOR'S ORGANIZ ATION 05/05/2022 [facility] DATE CREATED AUTHOR AUTHOR'S ORGANIZ ATION 05/05/2022 [facility] DATE CREATED AUTHOR AUTHOR'S ORGANIZ ATION 07/19/2022 [facility] DATE CREATED AUTHOR AUTHOR'S ORGANIZ ATION 06/25/2023 Kevyn Ferris [facility] DATE CREATED AUTHOR AUTHOR'S ORGANIZ ATION 07/14/2023 [facility] DATE CREATED AUTHOR AUTHOR'S ORGANIZ ATION 10/02/2023 [facility] Scheduled Active and Recently Administ ered Medications [...] Bag - Prov ider: Latonya Jean RN)[id number] (NoRateChange - Provider: Bishop Perez APRN - SPEEDBOAT OPERATOR) lactated ringers infusion IntraVENous, at 100 mL/hr, [...] Care Teams (unrecognized sec tion and content) Indoor Landscaper/Gardener Relationship Specialty Start Date End Date Mary Beth Pitts MD PCP - General 03/03/16 Indoor Landscaper/Gardener Relationship Specialty Start Date End Date Mary [...] MD Other Provider Active Linh Quintanilla , [facility]- Other Provider Active Debi Goins MD Other [...] Beth Pitts MD Primary Care Provider, Attending P demian Active Blas Ospina MD Other Provider Active [...] BE BASED ON THE PRIMARY CLINICAL RECORDS. [employer] provides no warranty or guarantee of the accuracy or completeness of information in this document.
[2023-10-04 21:38] LABS: Glucometer 275 mg/dL (74-106)
[2023-10-04] MEDS: TAMSULOSIN HCL 0.4 MG CAPSULE 0.400000000000000022 MG PO (21:45)
[2023-10-04] MEDS: METOPROLOL TARTRATE 50 MG TABLET PO (21:45)
[2023-10-04] MEDS: KETOROLAC TROMETHAMINE 30 MG/ML VIAL 15 MG IVP (21:45)
[2023-10-04] MEDS: INSULIN ASPART 300 UNIT/3 ML PEN SUBQ (21:46)
[2023-10-04] MEDS: 0.9 % SODIUM CHLORIDE 1,000 ML 100 ML IV (22:40)
[2023-10-04] MEDS: IPRATROPIUM/ALBUTEROL SULFATE 3 ML AMPUL.NEB IH (22:50)
[2023-10-04] MEDS: 0.9 % SODIUM CHLORIDE 500 ML IV (23:22)
--- NOTE | 2023-10-04 23:45 | PC.NURSE ---
Pt had on the call light stating he was roasting. RNs went into the room to assist pt. He was diaphoretic and flushed. Sheets and pillow case were changed due to being saturated with sweat. Temp was taken and was 98.1 oral. BP was 60/40 manually and HR 107. Respiratory therapist was also in the room at this time to complete breathing treatment. spO2 was 97% on 2 L NC. Tele-hospitalist notified and received an order for 500mL NS bolus. Bolus was started at 2307. Pt was then transferred back to ICU. Report was given to Anabelle RUST. And , Anna Marie, was notified of the change.
[2023-10-05] VITALS (106 sets, daily range): BP systolic 58–120; BP diastolic 0–62; PULSE 54–126; TEMP 36.6–37.2; O2SAT 78–100
[2023-10-05] MEDS: 0.9 % SODIUM CHLORIDE 1,000 ML 125 ML IV (00:22)
[2023-10-05] MEDS: ACETAMINOPHEN 325 MG TABLET 650 MG PO (00:37)
[2023-10-05] MEDS: NOREPINEPHRINE BITARTRATE 4 MG in DEXTROSE 5 % IN WATER 250 ML 30.4800000000000004 MG IV (01:40)
--- NOTE | 2023-10-05 01:52 | P.EN_ITS ---
Event Note Event Note: Notified by RN at 0030 that SBP 72, HR 107 and order given to infuse 500ml NS bolus and recheck SBP(70). Patient not c/o CP/SOB during event and lungs clear per RN. Transferred to ICU and order to give another 500ml NS bolus, SBP 67, HR 108, sat 96% 2LNC. Started Levophed drip at 2mcq/min to maintain MAP at 65. Nu rses unable to insert desai catheter 2nd to edema around penis vs stricture and consult for Dr. Ghotra to see today.
--- NOTE | 2023-10-05 02:49 | PC.NURSE ---
Off going RNLuis Felipe spoke with Marc Shipley INTRUSION ANALYST, hospitalist application spec. New order for IV Levophed drip to titrate for BP.
--- NOTE | 2023-10-05 02:52 | PC.NURSE ---
IV Levophed initiated due to hypotension. Refer to physician order. Patient alert and talkative without any complaints at this time.
[2023-10-05] MEDS: IPRATROPIUM/ALBUTEROL SULFATE 3 ML AMPUL.NEB IH ×2 (03:51→07:30)
--- NOTE | 2023-10-05 03:51 | RESP.RT ---
decreased down to 1L
[2023-10-05] MEDS: NOREPINEPHRINE BITARTRATE 4 MG in DEXTROSE 5 % IN WATER 250 ML 99.0600000000000023 MG IV (04:47)
[2023-10-05 04:51] LABS: Hematocrit 28.8 % (42.0-54.0); Mean Corpuscular HGB Conc 31.3 g/dL (29.9-35.2); Mean Corpuscular Hemoglobin 30.6 pg (25.9-34.0); Mean Platelet Volume 10.1 fL (9.5-13.5); Platelet Count 175 10^3/uL (150-450); Red Blood Count 2.94 10^6/uL (4.70-6.10); Red Cell Distribution Width 12.8 % (11.0-15.0); White Blood Count 25.1 10^3/uL (4.0-11.0)
[2023-10-05 05:00] LABS: Alanine Aminotransferase <6 U/L (16-63); Albumin Globulin Ratio 0.7; Albumin Level 2.2 g/dL (3.4-5.0); Alkaline Phosphatase 58 U/L (46-116); Anion Gap 16.8; Aspartate Amino Transferase 18 U/L (15-37); BUN Creatinine Ratio 9.4; Bilirubin Total 0.4 mg/dL (0.2-1.0); Calcium 7.9 mg/dL (8.5-10.1); Carbon Dioxide 17.1 mmol/L (21.0-32.0); Chloride 101 mmol/L (98-107); Estimated GFR (African America 39 (>=60); Estimated GFR (Non-African Ame 32 (>=60); Globulin 3.3 g/dL; Glucose 290 mg/dL (74-106); Potassium 3.9 mmol/L (3.5-5.1); Sodium 131 mmol/L (136-145); Total Protein 5.5 g/dL (6.4-8.2)
[2023-10-05 05:27] LABS: Lactate/Lactic Acid 7.3 mmol/L (0.4-2.0)
[2023-10-05 05:38] LABS: Band Neutrophils Absolute 2.3 10^3/uL (0.0-0.3); Monocytes Absolute Manual 0.75 10^3/uL (0.30-0.80); Segmented Neut Absolute Manual 20.83 10^3/uL (1.4-6.5)
[2023-10-05] MEDS: LIDOCAINE 2% JELLY 10 ML UR (05:40)
[2023-10-05] MEDS: DOPAMINE HCL IN DEXTROSE 5 % 400 MG/250 ML PLAST..BAG 16.4250000000000007 MG IV (06:20)
[2023-10-05] MEDS: 0.9 % SODIUM CHLORIDE 1,000 ML 1000 ML IV (06:35)
[2023-10-05 06:42] LABS: Magnesium 1.4 mg/dL (1.8-2.4)
--- NOTE | 2023-10-05 06:54 | ECG_ITS ---
[facility] Test Date: 2023-10-05 Pat Name: MARILU TAYLOR Department: Room: [facility] Gender: Male Wound Care Physician: : [id number] Requested By: DEBRA HONEYCUTT Order Number: [id number] Reading MD: GUILLERMINA IVEY Measurements Intervals Owen Rate: 76 P: -30 WI: 160 QRS: 61 QRSD: 92 T: 60 QT: 398 QTc: 428 Interpretive Statements 1100 Sinus rhythm 4068 Nonspecific Twave abnormality 8102 Low QRS voltage in chest leads 9130 borderline ECG Compared to ECG 10/04/2023 15:40:35 Low QRS voltage now present Sinus tachycardia no longer present Left bundle-branch block no longer present Electronically Signed On 10-05-2023 17:49:07 EDT by GUILLERMINA IVEY
[2023-10-05 06:55] LABS: Troponin I High Sensitivity 993.4 pg/mL (4.0-76.1)
[2023-10-05 07:01] LABS: C Reactive Protein 20.88 mg/dL (<=0.50)
--- NOTE | 2023-10-05 07:55 | PC.NURSE ---
0530 Critical Lactic level called to Jerald Shipley SCIENTIFIC TECHNICAL WRITER, Hospitalis cotton picker. New order placed for desai placement. 0545 Desai Catheter inserted with 2 RN's due to swelling of penis. Catheter able to be placed. 0600 Dr. Lopez updated on patient status including desai output, VS, patient condition etc. 0655 Dr. Lopez present and discussing condition with emil.
[2023-10-05] MEDS: NOREPINEPHRINE BITARTRATE 4 MG in DEXTROSE 5 % IN WATER 250 ML 254 MG IV (08:25)
--- NOTE | 2023-10-05 08:28 | CM.NOTE ---
Rounds made with Dr. Lopez, daughter at bedside. Dr. Lopez discussed plan transfer to higher level of care. Dr. Lopez explained reason for transfer, sepsis and positive troponin. Pt and daughter in agreement for transfer. Pt is on waiting list for [facility].
[2023-10-05 08:43] LABS: Glucometer 383 mg/dL (74-106)
--- NOTE | 2023-10-05 08:57 | P.HP_ITS ---
HPI H&P: HPI History of Present Illness Chief complaint: Post Surgical Complications, Pyelonephritis Narrative: Patient who had a vascular procedure done through his right groin approximately a month ago, area opened up and has been being packed and treated, was on antibiotics until 4 5 days ago. Yesterday started having fever, shaking chills, emesis, presented to the emergency room, CT scan emergency room suggest pyelonephritis with perinephric stranding. Patient was given fluids and IV antibiotics vancomycin and Zosyn in ER and transferred up to the medical surgical floor. On the medical surgical floor patient blood pressure decreased. He was given more fluids and transferred back to the intensive care unit. When I arrived at the hospital and saw patient up in the intensive care unit, initially with tachycardia and fever, patient has significant hypotension, bradycardia, review of labs shows acute renal failure, bandemia, leukocytosis, positive lactate. This is likely secondary to the pyelonephritis. The wound actually looks pretty good. Blood cultures are pending. Patient was started on Levophed, when it was maxed out at 32 mics we added dopamine secondary to the bradycardia, heart rate improved a little bit, but blood pressure did not significantly so phenylephrine was added. Along with another 2 L bolus. With that his blood pressure has improved. Patient is alert and oriented and answering questions appropriately. Opioid HPI Opioid Management Most Recent Opioid Data: Last Pain Scale 0 10/05/23 01:37 Last Pain Assessment 10/05/23 08:00 Last ED Pain Assessment 10/04/23 20:18 Last MAR Pain Assessment 10/05/23 01:37 Last ORT Total Score 0 10/04/23 22:37 Last ORT Risk Category Low Risk 10/04/23 22:37 Review of Systems ROS Status of ROS 10 or more systems reviewed and unremark able except as noted in history and below [facility] Medical History (Updated 10/05/23 @ 09:06 by Jaden Lopez MD) Leg fracture, left ?S82.92XA - Unspecified fracture of left lower leg, initial encounter for closed fracture (ICD-10) COPD (chronic obstructive pulmonary disease) ?J44.9 - Chronic obstructive pulmonary disease, unspecified (ICD-10) Diabetes ?E11.9 - Type 2 diabetes mellitus without complications (ICD-10) Sepsis ?A41.9 - Sepsis, unspecified organism (ICD-10) Surgical History (Updated 10/04/23 @ 22:46 by Lauryn Foote RN) History of atherectomy ?Z98.890 - Other specified postprocedural states (ICD-10) History of open heart surgery ?Z98.890 - Other specified postprocedural states (ICD-10) Heart valve replaced by other means ?Z95.4 - Presence of other heart-valve replacement (ICD-10) Meds Home Medications and Allergies Home Medications ?Medication ?Instructions ?Recorded ?Confirmed ?Type amlodipine 10 mg tablet 10 mg PO DAILY 10/04/23 10/04/23 History dutasteride 0.5 mg capsule 0.5 mg PO DAILY 10/04/23 10/04/23 History isosorbide mononitrate 60 mg 60 mg PO DAILY 10/04/23 10/04/23 History tablet,extended release 24 hr lisinopril 20 mg tablet 20 mg PO DAILY 10/04/23 10/04/23 History metformin 500 mg tablet,extended 1,000 mg PO BID 10/04/23 10/04/23 History release 24 hr metoprolol tartrate 50 mg tablet 50 mg PO Q12H 10/04/23 10/04/23 History rivaroxaban 20 mg tablet (Xarelto) 20 mg PO Q24H 10/04/23 10/04/23 History simvastatin 40 mg tablet 40 mg PO DAILY 10/04/23 10/04/23 History sitagliptin phosphate 100 mg 100 mg PO BID 10/04/23 10/04/23 History tablet (Januvia) spironolactone 25 mg tablet 12.5 mg PO DAILY 10/04/23 10/04/23 History tamsulosin 0.4 mg capsule 0.4 mg PO Q24H 10/04/23 10/04/23 History Allergies Allergy/AdvReac Type Severity Reaction Status Date / Time Penicillins AdvReac Severe Swelling Verified 10/04/23 17:20 of Lip/Tongue/Throat sulfamethoxazole AdvReac Severe Swelling Verified 10/04/23 17:20 [From Bactrim] of Lip/Tongue/Throat trimethoprim [From Bactrim] AdvReac Severe Swelling Verified 10/04/23 17:20 of Lip/Tongue/Throat doxycycline AdvReac Mild Blister Verified 10/04/23 17:20 Exam Constitutional Vital Signs, click to edit/add: Last Vital Signs Temp 97.8 F 10/05/23 01:37 Pulse 81 10/05/23 08:00 Resp 20 10/05/23 08:00 BP 82/0 L 10/05/23 07:20 Pulse Ox 98 10/05/23 08:00 O2 Del Method Nasal Cannula 10/05/23 07:31 O2 Flow Rate 1 10/05/23 07:31 Documenting provider has reviewed patient's vital signs: yes Common normals: apparent distress (Chills) Exam limitations: no altered mental status Lymph Lymphatic: no lymphadenopathy noted Chest Common normals: inspection of chest normal Respiratory Common normals: normal respiratory effort, no retractions and clear to auscultation bilaterally Cardio Common normals: regular rate, regular rhythm and no murmurs GI Common normals: Normal to inspection, nondistended, normoactive bowel sounds present, soft to palpation, no hepatosplenomegaly and no masses Extremity Common normals: abnormal to inspection (Trace edema which is normal for him, wound right groin healing) Results Labs Labs: Short CBC 10/04/23 10/05/23 Range/Units 16:04 04:15 WBC 16.6 H 25.1 H (4.0-11.0) 10^3/uL Hgb 10.7 L 9.0 L (14.0-18.0) g/dL Hct 32.9 L 28.8 L (42.0-54.0) % Plt Count 159 175 (150-450) 10^3/uL BMP 10/04/23 10/05/23 16:04 04:15 Sodium 129 L 131 L Potassium 4.4 3.9 Chloride 96 L 101 Carbon Dioxide 23.3 17.1 L BUN 14.0 19.0 H Creatinine 1.14 2.02 H Glucose 255 H 290 H Calcium 9.1 7.9 L Liver Function 10/05/23 Range/Units 04:15 Total Bilirubin 0.4 (0.2-1.0) mg/dL AST 18 (15-37) U/L ALT <6 L (16-63) U/L Alkaline Phosphatase 58 (46-116) U/L Albumin 2.2 L (3.4-5.0) g/dL Urine 10/04/23 Range/Units 19:45 Urine Color Yellow (YELLOW) Urine Clarity Clear (CLEAR) Urine pH 5.5 (5.0-9.0) Ur Specific Jackson <=1.005 A (1.005-1.025) Urine Protein 30 A (NEG/TRACE) mg/dL Urine Glucose (UA) 100 A (NEGATIVE) mg/dL Assessment and Plan Assessment and Plan (1) Severe sepsis with septic shock: (2) Pyelonephritis: (3) Diabetes: (4) COPD (chronic obstructive pulmonary disease): Plan Hyperglycemia, respiratory distress, fever initially to 103, then hypothermic to 96,4, Initially tachycardia, then bradycardia, Leukocytosis, acute renal failure (Baseline creatinine 1.14 to 2.02 so 177.2% above baseline), leukocytosis, bandemia, lactic acidosis secondary to pyelonephritis with sepsis with septic shock. Currently on 3 pressors, Levophed started initially, maxed out and added dopamine due to bradycardia and hypotension, heart rate improved but blood pressure did not so added phenylephrine. Blood pressure improved with the phenylephrine and a 2 L fluid bolus. Antibiotics initially given were vancomycin and Zosyn in ER, patient does have a severe penicillin allergy so did not continue that with IV acute renal failure will hold off on vancomycin. Changed patient to linezolid and Fortaz. Blood cultures and urine cultures are pending. With the requirement for 3 pressor agents, case was discussed with transfer to [facility] who agreed to accept patient in transfer Bradycardia, no EKG changes, high-sensitivity troponin is elevated, will check and see if we can evaluate 1 from the emergency room. Track and trend that as well. Pending transfer. acute NSTEMI secondary to the above Acute elevation in BNP-again reviewed labs from ER to see if we can check from a blood sample from the ER, significantly elevated this morning. Cut back on fluids, maintain pressor agents. This is likely acute diastolic heart failure, lung exam clear, secondary to the above Acute renal failure as outlined above-given fluids this morning. Likely combination of this is severe sepsis with septic shock and possibly related to vancomycin dosing Severe protein calorie malnutrition-diet management Iron deficiency anemia-monitor daily, check occult blood COPD-stable not requiring any supplemental oxygen currently, has some respiratory distress initially that was related to his fever. Recent vascular surgery-continue with Xarelto, wound actually looks pretty stable. Healing per family. NIDDM-continue with home medications, will hold off on Januvia and metformin secondary to the recent onset of acute renal failure. Insulin sliding scale. Hypertension by history-we will hold hypertensive medications secondary to the above BPH-difficult to get Tinsley catheter placed but it was placed. Continue with home medications. Coronary artery disease with hypercholesterolemia-continue with home medications, will hold off on isosorbide secondary to hypotension Admission status: Patient initially placed in observation status secondary to was felt to be just UTI. Patient's condition deteriorated significantly with severe sepsis with septic shock, acute renal failure. Medically necessary treatment will span [address] patient inpatient status in the intensive care unit Urinary Catheter Management Urinary Catheter Management Urethral: Cath placed during this visit: yes Urethral indwelling: Yes Reason for continuing: acute urinary retention Insertion date: 10/05/23 Insertion time: 05:45
--- NOTE | 2023-10-05 09:29 | P.DS_ITS ---
DS: Providers Provider Date of admission: 10/04/23 21:03 Primary care physician: Susana Jackson MD Consults: 10/05/23 06:05 Occupational Therapy Eval and Treat Routine Reason for consultation: Only if needed for Rehab Has provider been notified: No Physical Therapy Eval and Treat Routine Reason for consultation: Eval and Treat Has provider been notified: No 10/05/23 06:54 Consult to Cardiology Routine Reason for consultation: elevated trop DS: Diagnosis Discharge Diagnosis (1) Severe sepsis with septic shock: (2) Pyelonephritis: (3) Diabetes: (4) COPD (chronic obstructive pulmonary disease): Plan Hyperglycemia, respiratory distress, fever initially to 103, then hypothermic to 96,4, Initially tachycardia, then bradycardia, Leukocytosis, acute renal failure (Baseline creatinine 1.14 to 2.02 so 177.2% above baseline), leukocytosis, bandemia, lactic acidosis secondary to pyelonephritis with sepsis with septic shock. -Critical, on 3 pressor agents Bradycardia, resolved at the time of transfer Acute elevation in BNP-edema stable at the time of transfer Acute renal failure as outlined above-given fluids this morning. Critical at the time of transfer Severe protein calorie malnutrition-diet management Iron deficiency anemia-monitor daily, check occult blood COPD-stable not requiring any supplemental oxygen currently, has some respiratory distress initially that was related to his fever. Recent vascular surgery-continue with [facility], wound actually looks pretty stable. Healing per family. NIDDM-hyperglycemia at the time of transfer Hypertension by history-hypotensive at the time of transfer BPH-difficult to get Tinsley catheter placed but it was placed. Coronary artery disease with hypercholesterolemia-no active symptoms at the time of transfer Admission status: Patient initially placed in observation status secondary to was felt to be just UTI. Patient's condition deteriorated significantly with severe sepsis with septic shock, acute renal failure. Medically necessary treatment will span [address] patient inpatient status in the intensive care unit DS: Summary Hospital Course Hospital Course: Patient presented to the emergency room with nausea some vomiting and fever and chills. Patient had vascular procedure done within the last month, had an open wound and that was treated he has been off antibiotics for the last 5 days, the wound itself actually has had no change since being off of antibiotics and he has no pain in that area, evaluation in the emergency room with CT scan suggest pyelonephritis. Patient was admitted ED to observation and transferred up to the medical surgical floor. While on the medical surgical floor patient's condition deteriorated significantly, severe hypotension and was transferred back to the intensive care unit. In the emergency room he was given vancomycin and Zosyn. Fluid bolus. Up on the floor with a hypotensive episode he was given additional fluid bolus of 500 cc, transferred back to the ICU and placed on Levophed. When I arrived to the hospital his blood pressure was still significantly low. Heart rate dropped as well so he was placed on dopamine. Heart rate improved but blood pressure did not so phenylephrine was added. Additional 2 L fluid bolus was instituted. He got about half of that when his blood pressure improved at that time his BNP also came back significantly elevated as well as a significant elevation in his high-sensitivity troponin. The fluids were cut back to 100 cc an hour, maintain patient on the Levophed, phenylephrine, dopamine. Attempt to wean the Levophed since it is maxed out at 32 mics. Case was discussed with [facility] who agreed to accept patient in transfer severe sepsis with septic shock secondary to pyelonephritis. Additional complications of acute renal failure. Possible demand ischemia versus an acute NSTEMI, patient already on Xarelto, and possible acute diastolic heart failure with mild peripheral edema but lung exam is clear. Patient condition at the time of discharge is critical. Status at Discharge Overall status at discharge: patient is not back to baseline Time Spent with Patient Time attestation: Total time spent providing and/or coordinating discharge services: Time spent: greater than 30 minutes Exam Constitutional Vital Signs, click to edit/add: Last Vital Signs Temp 97.8 F 10/05/23 01:37 Pulse 81 10/05/23 08:00 Resp 20 10/05/23 08:00 BP 82/0 L 10/05/23 07:20 Pulse Ox 98 10/05/23 08:00 O2 Del Method Nasal Cannula 10/05/23 07:31 O2 Flow Rate 1 10/05/23 07:31 DS: Data Data Completed and Pending Labs on day of discharge: Labs from last 24 hours 10/05/23 10/05/23 10/04/23 08:32 04:15 21:29 WBC 25.1 H RBC 2.94 L Hgb 9.0 L Hct 28.8 L MCV 98.0 H MCH 30.6 MCHC 31.3 RDW 12.8 Plt Count 175 MPV 10.1 Neut % (Auto) Lymph % (Auto) [place] % (Auto) Eos % (Auto) Baso % (Auto) Neut # (Auto) Lymph # (Auto) [place] # (Auto) Eos # (Auto) Baso # (Auto) Abs Immat Gran (auto) Seg Neuts % (Manual) 83.0 Band Neutrophils % 9.0 H Lymphocytes % (Manual) 4.0 L Monocytes % (Manual) 3.0 Eosinophils % (Manual) 0.0 L Basophils % (Manual) 0.0 L Myelocytes % 2.0 Imm/Tot Granulo (auto) Neutrophils # (Manual) 20.83 H Band Neutrophils # 2.3 H Lymphocytes # (Manual) 1.00 L Abs Atypical Lymphs Man 0.00 Monocytes # (Manual) 0.75 Eosinophils # (Manual) 0.00 Basophils # (Manual) 0.00 Myelocytes # 0.50 Sodium 131 L Potassium 3.9 Chloride 101 Carbon Dioxide 17.1 L Anion Gap 16.8 BUN 19.0 H Creatinine 2.02 H Est GFR ( Amer) 39 L Est GFR (Non-Af Amer) 32 L BUN/Creatinine Ratio 9.4 Glucose 290 H Lactate 7.3 H* Calcium 7.9 L Magnesium 1.4 L Total Bilirubin 0.4 AST 18 ALT <6 L Alkaline Phosphatase 58 Troponin I High Sens 993.4 H* C-Reactive Protein 20.88 H NT-Pro-B Natriuret Pep 5689.0 H* Total Protein 5.5 L Albumin 2.2 L Globulin 3.3 Albumin/Globulin Ratio 0.7 Procalcitonin Urine Color Urine Clarity Urine pH Ur Specific [place] Urine Protein Urine Glucose (UA) Urine Ketones Urine Occult Blood Urine Nitrite Urine Bilirubin Urine Urobilinogen Ur Leukocyte Esterase Urine RBC Urine WBC Ur Squamous Epith Cells Urine Crystals Urine Bacteria Urine Casts Urine Mucus Ur Culture Indicated? Influenza Type A Ag Influenza Type B Ag SARS-CoV-2 Ag (CV2AG) POC Glucose 383 H 275 H 10/04/23 10/04/23 10/04/23 20:15 19:45 16:23 WBC RBC Hgb Hct MCV MCH MCHC RDW Plt Count MPV Neut % (Auto) Lymph % (Auto) [place] % (Auto) Eos % (Auto) Baso % (Auto) Neut # (Auto) Lymph # (Auto) [place] # (Auto) Eos # (Auto) Baso # (Auto) Abs Immat Gran (auto) Seg Neuts % (Manual) Band Neutrophils % Lymphocytes % (Manual) Monocytes % (Manual) Eosinophils % (Manual) Basophils % (Manual) Myelocytes % Imm/Tot Granulo (auto) Neutrophils # (Manual) Band Neutrophils # Lymphocytes # (Manual) Abs Atypical Lymphs Man Monocytes # (Manual) Eosinophils # (Manual) Basophils # (Manual) Myelocytes # Sodium Potassium Chloride Carbon Dioxide Anion Gap BUN Creatinine Est GFR ( Amer) Est GFR (Non-Af Amer) BUN/Creatinine Ratio Glucose Lactate 4.4 H* Calcium Magnesium Total Bilirubin AST ALT Alkaline Phosphatase Troponin I High Sens C-Reactive Protein NT-Pro-B Natriuret Pep Total Protein Albumin Globulin Albumin/Globulin Ratio Procalcitonin Urine Color Yellow Urine Clarity Clear Urine pH 5.5 Ur Specific [place] <=1.005 A Urine Protein 30 A Urine Glucose (UA) 100 A Urine Ketones Negative Urine Occult Blood Small A Urine Nitrite Negative Urine Bilirubin Negative Urine Urobilinogen 0.2 Ur Leukocyte Esterase Negative Urine RBC 5-10 A Urine WBC 5-10 A Ur Squamous Epith Cells Moderate A Urine Crystals None seen Urine Bacteria Moderate A Urine Casts None seen Urine Mucus None seen Ur Culture Indicated? Yes Influenza Type A Ag Negative Influenza Type B Ag Negative SARS-CoV-2 Ag (CV2AG) Negative POC Glucose 10/04/23 16:04 WBC 16.6 H RBC 3.53 L Hgb 10.7 L Hct 32.9 L MCV 93.2 MCH 30.3 MCHC 32.5 RDW 12.2 Plt Count 159 MPV 9.5 Neut % (Auto) 85.1 H Lymph % (Auto) 5.2 L [place] % (Auto) 8.3 Eos % (Auto) 0.0 L Baso % (Auto) 0.1 L Neut # (Auto) 14.1 H Lymph # (Auto) 0.9 L [place] # (Auto) 1.4 H Eos # (Auto) 0.0 Baso # (Auto) 0.0 Abs Immat Gran (auto) 0.21 H Seg Neuts % (Manual) Band Neutrophils % Lymphocytes % (Manual) Monocytes % (Manual) Eosinophils % (Manual) Basophils % (Manual) Myelocytes % Imm/Tot Granulo (auto) 1.3 H Neutrophils # (Manual) Band Neutrophils # Lymphocytes # (Manual) Abs Atypical Lymphs Man Monocytes # (Manual) Eosinophils # (Manual) Basophils # (Manual) Myelocytes # Sodium 129 L Potassium 4.4 Chloride 96 L Carbon Dioxide 23.3 Anion Gap 14.1 BUN 14.0 Creatinine 1.14 Est GFR ( Amer) >60 Est GFR (Non-Af Amer) >60 BUN/Creatinine Ratio 12.3 Glucose 255 H Lactate 2.5 H* Calcium 9.1 Magnesium Total Bilirubin AST ALT Alkaline Phosphatase Troponin I High Sens C-Reactive Protein NT-Pro-B Natriuret Pep 1213.0 Total Protein Albumin Globulin Albumin/Globulin Ratio Procalcitonin 0.23 Urine Color Urine Clarity Urine pH Ur Specific [place] Urine Protein Urine Glucose (UA) Urine Ketones Urine Occult Blood Urine Nitrite Urine Bilirubin Urine Urobilinogen Ur Leukocyte Esterase Urine RBC Urine WBC Ur Squamous Epith Cells Urine Crystals Urine Bacteria Urine Casts Urine Mucus Ur Culture Indicated? Influenza Type A Ag Influenza Type B Ag SARS-CoV-2 Ag (CV2AG) POC Glucose Discharge Plan Discharge Disposition: [facility]
--- NOTE | 2023-10-05 09:35 | XR_ITS ---
The [address] [address] Patient Name: MARILU TAYLOR MRN: [id number] date: 1950 Sex: M Assigned Patient Location: ICU Current Patient Location: ICU Accession/Order Number: [id number] Exam Date: 10/05/2023 09:50 Report Date: 10/05/2023 10:10 At the request of: NOEMI DAVIS Procedure: XR chest 1V EXAM: XR chest 1V HISTORY: Central Line placement confirmation COMPARISON: Chest study dated 10/04/2023 TECHNIQUE: AP view of the chest was obtained with portable technique at 9:45 AM. FINDINGS: Heart is within the upper limits of normal for size. No acute infiltrate or consolidations are seen. Intravenous catheter seen on the right with tip at the mid superior vena caval level in grossly unremarkable position. No obvious pneumothorax. Postoperative sternotomy wires are present. Aortic valve stent prostheses is noted. XR/XR chest 1V IMPRESSION: Intravenous catheter on the right as described. No obvious pneumothorax. Electronically authenticated by: LORRIE ENCARNACION Date: 10/05/2023 10:10
[2023-10-05 10:01] LABS: PCO2 VBG 35.5 mmHg (40.0-52.0); pH VBG 7.044 (7.330-7.430)
[2023-10-05 10:09] LABS: Troponin I High Sensitivity 9.3 pg/mL (4.0-76.1)
[2023-10-05 10:20] LABS: HCO3 ABG 9.1 mmol/L (22.0-26.0)
[2023-10-05 10:21] LABS: Allen Test POSITIVE (POSITIVE); Base Excess ABG -21.5 mmol/L (-2.0-2.0); Liters per Minute 3; O2 Mode NASAL CANNULA; Oxygen Saturation ABG 97.7 %; Puncture Site ART. LINE
[2023-10-05 10:23] LABS: pH ABG 7.047 (7.350-7.450)
[2023-10-05] MEDS: LINEZOLID IN DEXTROSE 5% 600 MG/300 ML PIGGYBACK 300 MG IV (10:27)
[2023-10-05] MEDS: INSULIN ASPART 300 UNIT/3 ML PEN SUBQ (10:29)
[2023-10-05] MEDS: HEPARIN SODIUM,PORCINE/NS/PF 1,000 UNIT/500 ML IV.SOLN 10 UNIT IV (10:31)
--- NOTE | 2023-10-05 10:37 | PC.NURSE ---
Patient PB is 104/43. John contacted, Orders to start Phenylephrine per protocol. BP increased to 112/50. Dr. Collins to the unit at 8:[address] central line. Time out completed. Patient placed on 2L via NC, sat at 100%. Nurse in with Dr. Collins during Right IJ insertion and Right brachial art line. 09:10 BP 84/47, Norepinephrine increased to 34mcg. Blood drawn from IJ for labs. BP increased to 110/59 at 09:45. Life flight arrived at 10:15. Life flight assumed care at this time. Extra bag of Norepinephrine left with life [employer] for the trip.
[2023-10-05] MEDS: NOREPINEPHRINE BITARTRATE 4 MG in DEXTROSE 5 % IN WATER 250 ML 121.920000000000002 MG IV (11:16)
[2023-10-05] MEDS: NOREPINEPHRINE BITARTRATE 4 MG in DEXTROSE 5 % IN WATER 250 ML 129.539999999999992 MG IV (11:21)
== END 2023-10-05 10:50 | disposition short-term general hospital (02) | DRG 871 ==
LOC: ER 20:16 → MS 21:07 → ICU 23:29
PROVIDERS: Emergency Medicine; Nurse Practitioner Acute Care; Admitting Provider Family Medicine; Emergency Provider Internal Medicine; PCP Family Medicine; Visit Provider Family Medicine
DX: A41.52 Sepsis due to Pseudomonas (principal); E43 Unspecified severe protein-calorie malnutrition; R65.21 Severe sepsis with septic shock; I21.4 Non-ST elevation (NSTEMI) myocardial infarction; E87.20 Acidosis, unspecified; N17.9 Acute kidney failure, unspecified; N10 Acute pyelonephritis; A41.50 Gram-negative sepsis, unspecified; E11.65 Type 2 diabetes mellitus with hyperglycemia; J44.9 Chronic obstructive pulmonary disease, unspecified; R06.03 Acute respiratory distress; R79.89 Other specified abnormal findings of blood chemistry; D50.9 Iron deficiency anemia, unspecified; Z98.890 Other specified postprocedural states; I10 Essential (primary) hypertension; N40.0 Benign prostatic hyperplasia without lower urinary tract symptoms; I25.10 Atherosclerotic heart disease of native coronary artery without angina pectoris; E78.00 Pure hypercholesterolemia, unspecified; Z79.01 Long term (current) use of 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; Z20.822 Contact with and (suspected) exposure to COVID-19; Z68.33 Body mass index [BMI] 33.0-33.9, adult
CPT/HCPCS: 36415; 36592; 36600; 51702; 71045; 74177; 80048; 80053; 81001; 82800; 82805; 82948; 83605; 83735; 83880; 84145; 84484; 85007; 85025; 85027; 86140; 87040; 87086; 87150; 87186; 87804; 87811; 93005; 94640; 94667; 94668; 94761; 96361; 96365; 96366; 96367; 96375; 96376; 99285; G0378; J2020; J3370; Q9967

== ENCOUNTER 2023-10-26 11:34 | Outpatient (OUT) | payer MEDICARE, MEDICAID, SELFPAY | END 2023-10-26 11:35 | disposition home or self-care (01) | LOC: LAB 11:36 | PROVIDERS: PCP Family Medicine; Visit Provider Urology | DX: N39.0 Urinary tract infection, site not specified (principal) | CPT/HCPCS: 87086; 87106 ==

== ENCOUNTER 2023-11-23 08:18 | Outpatient (OUT) | payer MEDICARE, MEDICAID, SELFPAY ==
[2023-11-23 10:08] LABS: Basophils Percent Auto 0.1 % (0.2-2.0); Eosinophils Absolute Auto 0.1 10^3/uL (0.0-0.7); Eosinophils Percent Auto 0.8 % (0.9-7.0); Hematocrit 34.1 % (42.0-54.0); Hemoglobin 10.6 g/dL (14.0-18.0); Immature Granulocytes Abs Auto 0.02 10^3/uL (0.00-0.03); Immature Granulocytes Pct Auto 0.2 % (0.0-0.5); Lymphocytes Absolute Auto 2.1 10^3/uL (1.2-3.8); Lymphocytes Percent Auto 25.3 % (20.5-60.0); Mean Corpuscular HGB Conc 31.1 g/dL (29.9-35.2); Mean Corpuscular Hemoglobin 27.6 pg (25.9-34.0); Mean Corpuscular Volume 88.8 fL (80.0-94.0); Mean Platelet Volume 9.8 fL (9.5-13.5); Monocytes Absolute Auto 0.7 10^3/uL (0.3-0.8); Monocytes Percent Auto 8.5 % (1.7-12.0); Neutrophils Absolute Auto 5.4 10^3/uL (1.4-6.5); Neutrophils Percent Auto 65.1 % (43.0-75.0); Platelet Count 235 10^3/uL (150-450); Red Blood Count 3.84 10^6/uL (4.70-6.10); Red Cell Distribution Width 14.2 % (11.0-15.0); White Blood Count 8.3 10^3/uL (4.0-11.0)
[2023-11-23 10:24] LABS: Alanine Aminotransferase 18 U/L (16-63); Albumin Globulin Ratio 0.7; Albumin Level 3.1 g/dL (3.4-5.0); Alkaline Phosphatase 77 U/L (46-116); Anion Gap 12.4; Aspartate Amino Transferase 10 U/L (15-37); BUN Creatinine Ratio 20.6; Bilirubin Total 0.4 mg/dL (0.2-1.0); Chloride 101 mmol/L (98-107); Estimated GFR (African America >60 (>=60); Estimated GFR (Non-African Ame >60 (>=60); Globulin 4.2 g/dL; Glucose 174 mg/dL (74-106); Potassium 4.4 mmol/L (3.5-5.1); Sodium 135 mmol/L (136-145); Total Protein 7.3 g/dL (6.4-8.2)
== END 2023-11-23 08:19 | disposition home or self-care (01) ==
LOC: LAB 08:20
PROVIDERS: PCP Family Medicine; Visit Provider Internal Medicine Interventional Cardiology
DX: I95.89 Other hypotension (principal)
CPT/HCPCS: 36415; 80053; 85025

== ENCOUNTER 2023-11-30 09:35 | Outpatient (OUT) | payer MEDICARE, MEDICAID, SELFPAY ==
--- NOTE | 2023-11-30 10:00 | CA_ITS ---
Patient Name: MARILU TAYLOR MR#: [id number] : 1950 Exam Date: 11/30/2023 Ordering Doctor: DR BLAS RENO M.D. ECHOCARDIOGRAM REPORT PROCEDURE: CA ECHO DOPPLER COMPLETE INDICATIONS: Bioprosthetic Aortic valve (TAVR), COPD COMPARISON: None. DESCRIPTION: COMPLETE ECHOCARDIOGRAM Real-time transthoracic echocardiography with 2D, M-mode, spectral and color flow Doppler performed. QUALITY: Technical quality was good. LEFT VENTRICLE: Normal chamber size. Mildly increased left ventricular wall thickness. LV EF: Global left ventricular systolic function is normal; visually estimated ejection fraction is 55 to 60%. No obvious wall motion abnormalities. DIASTOLIC: Normal diastolic function. ATRIAL SEPTUM: Visually appears intact. LEFT ATRIUM: Normal chamber size. RIGHT ATRIUM: Normal chamber size. RIGHT VENTRICLE: Normal chamber size. Normal right ventricular systolic function. TRICUSPID VALVE: Normal mobility and thickness. No stenosis with trivial regurgitation. MITRAL VALVE: Normal mobility and thickness. No evidence of mitral valve stenosis. There is no mitral annular calcification. Trivial mitral regurgitation. AORTIC VALVE: Bio-Prosthetic valve appears well seated in the aortic position with normal Doppler flow. No valvular or perivalvular regurgitation. AORTIC ROOT: Normal diameter and appearance. Ascending aorta is normal in size. PULMONIC VALVE: Normal thickness and mobility. No stenosis. No regurgitation. PERICARDIUM: No evidence of pericardial effusion. IVC: Collapses with inspirations. IVC is normal in size. CONCLUSION: 1. Global left ventricular systolic function is normal; visually estimated ejection fraction is 55 to 60% 2. Normal right ventricular size and systolic function 3. Normal diastolic function 4. The left atrium is normal size 5. A bioprosthetic valve (JODI) is seen in the aortic position; normal Doppler flows are seen Adult Echocardiography Procedure Report Left Ventricle LVEDD (3.7 - 5.6 cm): 4.66 cm LVESD (2.2 - 4.0 cm): 3.56 cm LVIVS thickness (0.6 - 1.2 cm): 1.41 cm LVPW thickness (0.5 - 1.0 cm): 1.09 cm e': 0.10 m/s E - e': 7.70 LVOT Max Gradient: 1.67 mm[Hg] LVOT Area (cm2): 0.65 m/s Peak Velocity (LVOT): 0.65 m/s Mean Velocity (LVOT): 0.40 m/s LVOT Diameter 2.23 cm Left Atrium LA Volume Index (2D A2C): 34.47 ml/m2 Left Atrium Systolic Dimension: 4.23 cm Mitral Valve MV E to A Ratio: 0.82 Mitral Valve A-Wave Peak Velocity: 0.90 m/s Mitral Valve E-Wave Peak Velocity: 0.74 m/s Right Ventricle Aorta AO Root Diam: 3.51 cm Ascending Ao Diam: 2.75 cm Aortic Valve AoV Area (Peak Abiel): 1.17 cm2, 1.17 cm2 AoV Area (VTI): 1.41 cm2, 1.41 cm2 Peak Velocity(Antegrade Flow): 2.14 m/s Peak Gradient(Antegrade Flow): 18.34 mm[Hg] Mean Velocity(Antegrade Flow): 1.33 m/s Mean Gradient(Antegrade Flow): 8.45 mm[Hg] Velocity Time Integral: 44.38 cm Tricuspid Valve Pulmonic Valve Mean Gradient: 1.73 mm[Hg] Mean Velocity: 0.62 m/s Peak Velocity: 0.92 m/s, 0.88 m/s Peak Gradient: 3.09 mm[Hg], 3.41 mm[Hg] Right Atrium Right Atrium Systolic Pressure: 39.44 ml, 39.44 ml Dictated by: Cat Sawyer M.D. on 11/30/2023 at 16:47 Approved by: Cat Sawyer M.D. on 11/30/2023 at 16:51
== END 2023-11-30 09:36 | disposition home or self-care (01) ==
LOC: CARD 09:35
PROVIDERS: PCP Family Medicine; Visit Provider Internal Medicine Interventional Cardiology
DX: I95.89 Other hypotension (principal); Z95.2 Presence of prosthetic heart valve
CPT/HCPCS: 93306

== ENCOUNTER 2024-02-25 07:38 | Outpatient (RCR) | payer MEDICARE, SELFPAY ==
[2024-02-19 11:08] VITALS: BP 121/65; PULSE 76; TEMP 36.1; O2SAT 95
[2024-02-19] MEDS: CEFTRIAXONE 2,000 MG in 0.9 % SODIUM CHLORIDE 100 ML 200 MG IV (11:17)
--- NOTE | 2024-02-19 12:32 | PC.NURSE ---
1147 tolerated infusion without any signs or symptoms of reaction. Line flushed with NS. wrapped coban over site, wrapped loosely. Released ambulatory
[2024-02-20] MEDS: CEFTRIAXONE 2,000 MG in 0.9 % SODIUM CHLORIDE 100 ML 200 MG IV (10:54)
[2024-02-20 10:55] VITALS: BP 136/76; PULSE 73; TEMP 36.3; O2SAT 96
--- NOTE | 2024-02-20 11:33 | PC.NURSE ---
1125 Tolerated infusion without any s/s of reaction. iv site saline locked and wrapped with coban loosely, released ambulatory
[2024-02-21 10:30] VITALS: BP 131/70; PULSE 69; TEMP 36; O2SAT 98
[2024-02-21] MEDS: CEFTRIAXONE 2,000 MG in 0.9 % SODIUM CHLORIDE 100 ML 200 MG IV (10:42)
[2024-02-22] MEDS: CEFTRIAXONE 2,000 MG in 0.9 % SODIUM CHLORIDE 100 ML 200 MG IV (10:38)
[2024-02-22 10:43] VITALS: BP 150/70; PULSE 70; TEMP 35.6; O2SAT 97
[2024-02-23] MEDS: CEFTRIAXONE 2,000 MG in 0.9 % SODIUM CHLORIDE 100 ML 200 MG IV (10:08)
[2024-02-23 10:17] VITALS: BP 121/65; PULSE 78; TEMP 36.1
[2024-02-24 11:07] VITALS: BP 140/70; PULSE 74; TEMP 36.3
[2024-02-24] MEDS: CEFTRIAXONE 2,000 MG in 0.9 % SODIUM CHLORIDE 100 ML 200 MG IV (11:13)
[2024-02-25] MEDS: CEFTRIAXONE 2,000 MG in 0.9 % SODIUM CHLORIDE 100 ML 200 MG IV (11:01)
[2024-02-25 11:02] VITALS: BP 151/75; PULSE 70; TEMP 36.6; O2SAT 98
== END 2024-03-13 23:59 | disposition home or self-care (01) ==
LOC: INF 07:38
PROVIDERS: PCP Family Medicine; Visit Provider Urology
DX: N39.0 Urinary tract infection, site not specified (principal); B96.89 Other specified bacterial agents as the cause of diseases classified elsewhere
CPT/HCPCS: 96365; J0696

== ENCOUNTER 2024-06-25 10:17 | Outpatient (OUT) | payer MEDICARE, SELFPAY ==
--- NOTE | 2024-06-25 10:23 | XR_ITS ---
The [address] [address] Patient Name: MARILU TAYLOR MRN: [id number] date: 1950 Sex: M Assigned Patient Location: RAD Current Patient Location: RAD Accession/Order Number: [id number] Exam Date: 06/25/2024 10:32 Report Date: 06/25/2024 10:49 At the request of: JAIR DAVENPORT Procedure: XR chest 2V EXAMINATION: XR chest 2V HISTORY: Fever, Influenza A COMPARISON: XR chest 10/05/2023 FINDINGS: LUNGS: Mild stranding within medial left lung base. Slight wall thickening of a few central bronchi. VASCULATURE: No increased pulmonary vasculature. PLEURA: No pneumothorax, effusion, or pleural thickening. CARDIAC: No cardiomegaly or cardiac silhouette abnormality. MEDIASTINUM: Prior sternotomy. No abnormal widening. BONES: No fracture or visible bone lesion. OTHER: Negative. XR/XR chest 2V IMPRESSION: 1. Trace amount left basilar atelectasis versus infiltrates, and possibly mild bronchiolitis. Electronically authenticated by: OLIVIA SERRANO Date: 06/25/2024 10:49
--- OUTSIDE RECORDS SUMMARY | 2024-06-25 10:40 | XMS_ITS | CCD ---
Author Organization [facility] Care Team Providers Care Utility Repairer Name Role Phone ANA AYALA Admitting Unavailable SELF, REFERRED Referring Unavailable JONY STEIN Surgeon Unavailable DC Procedure Practitioner Unavailab le PITTS, MARY BETH Primary Care Unavailable MICHAEL BIGGS Attending Unavailable SWETHA WINTER Attending Unavailable SWETHA WINTER Admitting Unavailable HONG, MARY BETH Primary Care Unavailable HONG, MARY BETH Referring Unavailable HONG, MARY BETH Primary Care Unavailable HONG, MARY BETH Referring Unavailable KENDAL TORRES Attending Unavailable KEDNAL TORRES Admitting Unavailable MASROOR, SANTANA Surgeon Unavailable MASROOR, SANTANA Admitting Unavailable DC Procedure Practitioner Unavailab le MARY BETH PITTS Referring Unavailable REYNALDO COX Attending Unavailable HONG, MARY BETH Primary Care Unavailable REYNALDO COX Surgeon Unavailable DC Procedure Practitioner Unavailab le UNKNOWN, PROVIDER Surgeon Unavailable DC Procedure Practitioner Unavailab le Pitts , Mary Beth Primary Care Provider [phone] Hong DIAZ, Mary Beth Primary Care Provider Mary Beth Pitts MD Primary Care Provider [phone] Hong DIAZ, Mary Beth Primary Care Provider MARY BETH PITTS Primary Care Unavailable MARY BETH PITTS Referring Unavailable BLAS OSPINA Referring Unavailable MARY BETH PITTS Primary Care Unavailable MARY BETH PITTS Primary Care Unavailable ROBERTA VAZQUEZ Admitting Unavailable ROBERTA VAZQUEZ Attending Unavailable MARY BETH PITTS Primary Care Physician [phone] Diogenes, Dr. Jc Case Attending Skinny Pitts, Dr. Mary Beth Roman Primary Care Flavia Pitts, Dr. Mary Beth Roman Primary Care Flavia Shetty, Dr. Jc Case Attending Skinny Pitts, Dr. Mary Beth Roman Primary Care Flavia Pitts, Dr. Mary Beth Roman Primary Care MD Mary Beth Rogers Primary Care Provider MD Madeline Baryr Admit Provider MD Neno Moreira Attending Provider YOCASTA Stahl Other Provider Unavailable DO Marlon Shetty Other Provider MD Christel Paul Other Provider MD Jc Sorto Other Provider MD Roman Sweeney Other Provider MD aJmari Moraes Other Provider JOSE ENRIQUE Andrews Other Provider [phone] MD Page Miller Other Provider MD Luis Key Najebala Other Provider MD Eduardo Nguyen Other Provider Socorro [facility] Linh Liriano Other Provider MD Debi Goins Other Provider [phone] MD Cristo Rivera Other Provider MD Kendal Moy Other Provider MD Trino Carlton Other Provider MD Mary Jane Morrell Jr Other Provider [phone] MD Karla Aranda Other Provider MD Seth Segundo Other Provider GALEN MEDINA Consulting Unavailable HONG, DR MARY [...] Unavailable MD Mary Beth Pitts Primary Care Unava ilable Villagomez MD, Gerald Beto Attending Unavailable MD Mary Beth Pitts [facility] Unava gilbert Villagomez MD, Gerald Beto Attending Unavailable MD Mary Beth Pitts Consulting Jocelynva MD Mary Beth Hess [facility] Unava ilcandace Villagomez MD, Gerald Chi Attending Unavailable Hernando DIAZ, Gerald Chi Attending Unavailable MD Mary Beth Pitts [facility] MD Mary Beth Hussein Consulting Skinny Villagomez MD, Gerald Beto Attending Unavailable MD Mary Beth Pitts [facility] MD Mary Beth Hussein Consulting MD Mary Beth Hussein [facility] Unava gilbert Villagomez MD, Gerald Pérez Attending Unavailable Hernando DIAZ, Gerald Pérez Attending Unavailable MD Mary Beth Pitts Primary Care Provider [phone] MD Mary Beth Pitts Attending Provider [phone] MD Blas Ospina V Other Provider Mary Beth Pitts Unavailable Mahendra Escalante Unavailable KAMILA WILSON Attending Unavailable MD Mary Beth Pitts Primary Care Provider JOSE ENRIQUE Mckee Attending Provider MD Mary Beth Pitts Primary Care Provider JOSE ENRIQUE Mckee Attending Provider Mary Beth Pitts Primary Care Unavailable Narcisa Mckee Attending Unavailable Narcisa Mckee Admitting Unavailable Cristo RIVERA R Attending Unavailable RIVERA, Cristo R Attending Unavailable RIVERA, Cristo R Attending Unavailable RIVERA, Cristo R Admitting Unavailable RIVERA, Cristo R Attending Unavailable AMIRA CARREON Attending Unavailable ASSALY, RAGHEB Admitting Unavailable HOY, DEBRA Referring Unavailable ASSALY, RAGHEB Referring Unavailable SAFI, ALVINO Referring Unavailable ASSALY, RAGHEB Referring Unavailable ASSALY, RAGHEB Referring Unavailable ASSALY, RAGHEB Referring Unavailable BLAS OSPINA Attending Unavailable BLAS OSPINA Attending Unavailable BLAS OSPINA Attending Unavailable MARSHALL LUONG Attending Unavailable MARSHALL LUONG Attending Unavailable MARSHALL LUONG Attending Unavailable STEPHIE, HINA Attending Unavailable MOUKARBEL, BLAS Attending Unavailable LUONG, MARSHALL Referring Unavailable ASSALY, RAGHEB Referring Unavailable ASSALY, RAGHEB Referring Unavailable ASSALY, RAGHEB Referring Unavailable ASSALY, RAGHEB Referring Unavailable LUONG, MARSHALL Referring Unavailable LUONG, MARSHALL Attending Unavailable LUONG, MARSHALL Referring Unavailable SAFI, ALVINO Referring Unavailable LAURI, AMIRA Referring Unavailable LAURI, AMIRA Referring Unavailable NAZZAL, MUNIER Attending Unavailable NAZZAL, MUNIER Admitting Unavailable MOUKARBEL, BLAS Attending Unavailable MOUKARBEL, BLAS Admitting Unavailable RIVERA, Cristo R Attending Unavailable RIVERA, Cristo R Attending Unavailable RIVERA, Cristo R Attending Unavailable RIVERA, Cristo R Attending Unavailable RIVERA, Cristo R Attending Unavailable RIVERA, Cristo R Attending Unavailable RIVERA, Cristo R Admitting Unavailable RIVERA, Cristo R Attending Unavailable Allergies Allergy Classification Reported Allergen(s) Allergy Type Date of Onset Reaction(s) Facility Dihydrofolate Reductase Inhibitors (antibiotic) (1 source) Trimethoprim Drug Allergy 10-18-19 24 Hives [facility] Doxycycline (1 source) Doxycycline; Translations: [doxycycline] Drug Allergy Blisters beneath skin (disorder) [facility] Comment on above: Blisters on hands Penicillins (antibiotic) (3 sources) Penicillins; Translations: [penicillin] Drug Allergy 10-30-19 15 Shortness Of Breath, Swelling, Anaphylaxis (disorder), Tightness in throat (finding) [facility] Sulfonamides (antibiotic) (3 sources) Sulfamethoxazole; Translations: [sulfa drugs] Drug Allergy 10-18-19 24 Vomitus (substance) [facility] (8 sources) Erythromycin; Translations: [ERYTHROMYCIN BASE] Drug Allergy 11-12-19 14 Vomiting [facility] Rep[facility] (9 sources) Penicillins; Translations: [PENICILLINS] Drug allergy (disorder) 12-03-19 14 Shortness Of Breath, Swelling [facility] (1 source) Sulfamethoxazole / Trimethoprim Drug Allergy 09-14-19 15 [facility] (1 source) Penicillins Propensity to adverse reactions to drug 10-30-19 15 Shortness Of Breath [facility] (13 sources) Erythromycin; Translations: [ERYTHROMYCIN] Drug Allergy 09-07-19 22 Unknown [facility] (20 sources) Penicillin; Translations: [penicillin] Drug Allergy Tightness in throat (finding), hives, Anaphylaxis (disorder) [facility] (19 sources) Sulfonamides (Antibiotic); Translations: [sulfa drugs] Drug allergy Vomitus (substance) [facility] (4 sources) Sulfonamides (Antibiotic) Allergy to substance 03-17-20 Unknown [facility] (1 source) Sulfonamides (Antibiotic) Drug allergy (disorder) 11-19-19 14 [facility] (1 source) MOST ANTIBIOTICS; Translations: [MOST ANTIBIOTICS] Propensity to adverse reactions to drug (disorder) [facility] Repository (8 sources) Sulfamethoxazole / Trimethoprim Drug Allergy Unknown [facility] Other (2 sources) Substance with penicillin structure and antibacterial mechanism of action (substance) Drug allergy 03-03-20 15 Unknown [facility] Other (5 sources) ANTIBIOTICS Propensity to adverse reactions 03-03-20 15 Unknown, [facility] (2 sources) Allergies Reconciled Propensity to adverse reactions Unknown [facility] Other (2 sources) patient allergy list reviewed by nurse or physicia Propensity to adverse reactions 03-03-20 15 Comment:Done [facility] Other (13 sources) Doxycycline; Translations: [doxycycline] Drug Allergy 09-03-19 24 Blisters beneath skin (disorder) [facility] Comment on above: Blisters on hands (2 sources) Sulfamethoxazole Drug Allergy 11-26-19 24 [facility] (2 sources) Trimethoprim Drug Allergy 11-26-19 24 [facility] (1 source) levoFLOXacin; Translations: [LEVOFLOXACIN] Drug Allergy 04-14-20 [facility] (1 source) Sulfamethoxazole / Trimethoprim; Translations: [SULFAMETHOXAZOLE-T RIMETHOPRIM] Drug Allergy 04-14-20 [facility] Rep[facility] Medications Current Medications Medication Drug Class(es) Dates Sig (Normalized) Sig (Original) Accu-Chek Guide - (3 sources) Start: 11-22-2022 Accu-Chek Guide - 1 strip to check BS once daily for 30 days Nov, Active Accu-Chek Guide Me w/Device (3 sources) Accu-Chek Guide Me w/Device 1 meter to check BS once daily for 365 days Active amLODIPine 10 mg oral tablet (20 sources) Dihydropyridine Calcium Channel Rick Start: 06-05-2022 [...] injectable solution (1 source) Start: 09-19-2021 lactated ringers infusion ciprofloxacin 500 mg oral tablet (8 sources) Quinolone Antimicrobial Start: 12-21-2023 End: 01-20-2024 take 1 tablet by mouth twice daily Cipro 500 mg Tab 500 mg = 1 tab(s), Oral, BID, X 30 day(s), # 60 tab(s), Refills(s) 0, Pharmacy: [id number], 166, cm, 12/21/23 8:06:00 EDT, Height/Length Dosing, 78.3, kg, 12/21/23 8:06:00 EDT, Weight Dosing Start Date: 12/21/23 Stop Date: 01/20/24 Status: Ordered Start: 11-19-2023 End: 12-19-2023 take 1 tablet by mouth every twelve hours Cipro 500 mg Tab 500 mg = 1 tab(s), Oral, q12hr, X 30 day(s), # 60 tab(s), Refills(s) 0, Pharmacy: [id number], 166, cm, 11/19/23 8:51:00 EDT, Height/Length Dosing, 82, kg, 11/19/23 8:51:00 EDT, Weight Dosing Start Date: 11/19/23 Stop Date: 12/19/23 Status: Ordered Start: 10-18-2023 End: 10-30-2023 take 500 mg by mouth twice daily Ciprofloxacin Hcl Discontinued 500 MG PO Twice daily October 18, 2023 12:00am October 30, 2023 7:20am Start: 06-05-2022 take 1 tablet by [facility] once daily Cipro 500 mg Tab 500 mg = 1 tab(s), Oral, Daily, Take 1 tablet the day before the procedure and 1 tablet after the procedure, # 2 tab(s), Refills(s) 0, Pharmacy: [id number], 168, cm, 06/05/22 9:33:00 EST, Height/Length Dosing, 73, kg, 06/05/22 9:33:00 E... Start Date: 06/05/22 Status: Ordered doxycycline hyclate 100 mg oral capsule (14 sources) Tetracycline-class Drug Start: 11-27-2022 End: 12-27-2022 [...] Ordered Start: 08-28-2022 take 1 capsule by [facility] every twenty-four hours Doxycycline Monohydrate 100 MG 1 capsule Orally Once a day for 10 days Aug, Active Start: 03-17-2022 End: 03-19-2022 Doxycycline Hyclate Disconti nued MG March 17, 2022 12:00am March 19, 2022 1:21pm Start: 02-27-2022 End: 03-13-2022 take 1 mg by mouth twice daily doxycycline hyclate 100 mg Cap mg cap(s), Oral, BID, Refills(s) 0 Start Date: 02/27/22 Status: Ordered dutasteride 0.5 mg oral capsule (13 sources) 5-alpha Reductase Inhibitor Start: 11-27-2022 End: [...] mononitrate 30 mg extended release oral tablet (20 sources) Nitrate Vasodilator Start: 02-27-2022 isosorbide mononitrate 30 mg ER Tab Refills(s) 0 Start Date: 02/27/22 Status: Ordered take 1 tablet by vasiliy th every twenty-four hours Isosorbide Mononitrate ER 60 MG 1 tablet in the morning Orally Once a day Active levoFLOXacin 500 mg oral tablet (8 sources) Quinolone Antimicrobial Start: 06-09-2024 End: 06-19-2024 take 1 tablet by mouth every twenty-four hours Levaquin 500 mg Tab 500 mg = 1 tab(s), Oral, q24hr, X 10 day(s), # 10 tab(s), Refills(s) 0, Pharmacy: [id number], 166, cm, 06/09/24 10:17:00 EST, Height/Length Dosing, 81, kg, 06/09/24 10:17:00 EST, Weight Dosing Start Date: 06/09/24 Stop Date: 06/19/24 Status: Ordered Start: 06-13-2023 End: 06-27-2023 take 1 tablet [...] week(s), # 21 tab(s), Refills(s) 0, Pharmacy: [id number], 166, cm, 02/26/23 9:10:00 EDT, Height/Length Dosing, 71, kg, 02/26/23 9:10:00 EDT, Weight Dosing Start Date: 02/26/23 Stop Date: 03/19/23 Status: Ordered Start: 03-19-2022 End: 10-30-2023 take 750 mg by mouth once daily Levofloxacin Discontin ued 750 MG PO Daily 11 17March 19, 2022 12:00am October 30, 2023 7:21am lisinopril 5 mg oral tablet (20 sources) Angiotensin Converting Enzyme Inhibitor Start: 11-26-2023 take 5 mg by mouth once daily Lisinopril Active 5 MG PO Daily November 26, 2023 12:00am Start: 11-26-2023 take 5 mg by mouth twice daily Lisinopril Active 5 MG PO Twice daily November 26, 2023 12:00am Start: 03-17-2022 End: 11-26-2023 take 15 mg by mouth once daily Lisinopril Discontinued 15 MG PO Daily March 17, 2022 12:00am November 26, 2023 10:04am Start: 02-27-2022 lisinopril 20 mg Tab Refills(s) 0 Start Date: 02/27/22 Status: Ordered take 0.5 tablet by m outh once daily Lisinopril 40 MG 1/2 tablet Orally Once a day Active take 1 tablet by vasiliy th every twenty-four hours take 1 tablet by vasiliy th once daily lisinopril (PRINIVIL;ZESTRIL) 2.5 MG tablet Take 2.5 mg by mouth daily 0 Active metoprolol tartrate 50 mg oral tablet (20 sources) beta-Adrenergic Rick Start: 03-17-2022 take 25 mg by mouth twice daily Metoprolol Tartrate Active 25 MG PO Twice daily March 17, 2022 12:00am Start: 02-27-2022 Metoprolol tar trate 50 mg Tab Refills(s) 0 Start Date: 02/27/22 Status: Ordered take 1 tablet by [facility] every twelve hours Metoprolol Tartrate 50 MG 1 tablet with food Orally Twice a day Active take 1 tablet by vasiliy twice daily metoprolol (TOPROL-XL) 50 MG XL tablet Take 50 mg by mouth 2 times daily 0 Active Nitro Sublingual 0.4 0.4mg (8 sources) Nitro Sublingual 0.4 0.4mg 1 Sublingual Every 5min x3 Active nystatin 100 unt/mg topical powder (5 sources) Polyene Antifungal Start: 10-30-2023 Nystatin Ac tive 1 APPLIC TOPICAL Twice daily October 30, 2023 12:00am apply to sacral, buttock, scrotal areas as per wound orders Start: 10-18-2023 End: 10-30-2023 Nystatin Discontinued [id number] UNIT PO Daily October 18, 2023 12:00am October 30, 2023 7:22am administer 1/2 of dose in each side of the mouth pantoprazole 40 mg delayed release oral tablet (14 sources) Proton Pump Inhibitor Start: 02-15-2024 Pantoprazole 40 mg D R Tab 40 mg = 1 tab(s), Refills(s) 0 Start Date: 02/15/24 Status: Ordered Start: 10-18-2023 End: 11-26-2023 take 40 mg by mouth once daily Pantoprazole Discontinu ed 40 MG PO Daily 90 November 19, 2023 10:19am November 26, 2023 10:27am phenylephrine hydrochloride 25 mg/ml ophthalmic solution (1 source) alpha-1 Adrenergic Agonist Start: 09-19-2021 phenylephrine (MYDFRIN) 2.5 % ophthalmic solution 1 drop pregabalin 75 mg oral capsule (8 sources) Start: 10-12-2022 take 1 capsule by mouth twice daily Pregabalin 75 MG TAKE 1 CAPSULE BY MOUTH TWICE DAILY FOR 30 DAYS Oct, Active Start: 09-18-2022 take 1 capsule by [facility] every twelve hours Lyrica 75 MG 1 capsule Orally Twice a day for 30 days September, Active Start: 08-24-2022 take 1 capsule by [facility] every twelve hours Lyrica 50 MG [...] Reductase Inhibitor Start: 02-27-2022 simvastatin 40 mg Tab Refills(s) 0 Start Date: 02/27/22 Status: Ordered SITagliptin 100 mg oral tablet (20 sources) Dipeptidyl Peptidase 4 Inhibitor Start: 10-18-2023 End: 10-30-2023 take 25 mg by mouth once daily Sitagliptin Discontinued 25 MG PO Daily October 18, 2023 12:00am October 30, 2023 7:22am Start: 05-28-2023 End: 11-26-2023 Januvia 100 mg Tab Refills(s ) 0 Start Date: 05/28/23 Status: Ordered Start: 11-28-2022 Januvia 100 mg Tab Refills(s) 0 Start Date: 02/26/23 Status: Ordered 5 ml sodium chloride 9 mg/ml injection (4 sources) Start: 09-19-2021 sodium chlorid e flush 0.9 % injection 5-40 mL Start: 09-19-2021 sodium chlorid e flush 0.9 % injection 5-40 mL Start: 09-19-2021 0.9 % sodium c hloride infusion spironolactone 25 mg oral tablet (20 sources) Aldosterone Antagonist Start: 02-26-2023 spironolactone 25 mg Tab Refills(s) 0 Start Date: 02/26/23 Status: Ordered take 0.5 tablet by m outh once in the morning Spironolactone 25 MG 1/2 tab Orally q am . Active tamsulosin hydrochloride 0.4 mg oral capsule (20 sources) alpha-Adrenergic Rick Start: 11-19-2023 take 2 capsules by mouth once daily Flomax 0.4 mg Cap 0.8 mg = 2 cap(s), Oral, Daily, # 60 cap(s), Refills(s) 11, Pharmacy: [id number], 166, cm, 11/19/23 8:51:00 EDT, Height/Length Dosing, 82, kg, 11/19/23 8:51:00 EDT, Weight Dosing Start Date: 11/19/23 Status: Ordered Start: 03-17-2022 take 0.4 mg by mouth twice [place]en [facility] Tamsulosin Active 0.4 MG PO Twice daily March 17, 2022 12:00am Start: 03-17-2022 Tamsulosin Act haydee MG PO March 17, 2022 12:00am Start: 02-27-2022 take 1 capsule by mo [facility] once daily Flomax 0.4 mg Cap [...] Drug Class(es) Dates Sig (Normalized) Sig (Original) clopidogrel 75 mg oral tablet (11 sources) [id number] Platelet Inhibitor Start: 03-17-2022 End: 10-30-2023 take 75 mg by mouth once daily Clopidogrel Discontinued 75 MG PO Daily March 17, 2022 12:00am October 30, 2023 7:21am Start: 02-27-2022 clopidogrel 75 mg Tab Refills(s) 0 Start Date: 02/27/22 Status: [facility] clopidogrel (PLAVIX) 75 MG tablet Take 75 mg by mouth daily 0 Active donepezil hydrochloride 5 mg oral tablet (13 sources) Start: 03-17-2022 End: 10-30-2023 Donepezil Discontinued MG TABLET March 17, 2022 12:00am October 30, 2023 7:21am take 1 tablet by mouth every twe nty-four hours furosemide 20 mg oral tablet (3 sources) Loop Diuretic Start: 10-18-2023 End: 10-30-2023 take 20 mg by mouth once daily Furosemide Discontinued 20 MG PO Daily October 18, 2023 12:00am October 30, 2023 7:21am 24 hr metFORMIN hydrochloride 500 mg extended release oral tablet (20 sources) Biguanide Start: 03-17-2022 End: 11-26-2023 take 1000 mg by mouth twice daily Metformin Discontinued 1000 MG PO Twice daily 360 90 October 30, 2023 3:37pm November 26, 2023 10:27am Start: 02-27-2022 MetFORMIN (Eqv -Glucophage XR) 500 mg oral tablet, extended release Refills(s) 0 Start Date: 02/27/22 Status: Ordered take 2 tablets by mo [facility] twice daily metFORMIN HCl ER 500 MG TAKE 2 TABLETS BY MOUTH 2 TIMES A DAY Active take 1 tablet by vasiliy twice daily at mealtime metFORMIN (GLUCOPHAGE) 500 MG tablet Take 500 mg by mouth 2 times daily (with meals) 0 Active Problems Active Problems Problem Classification Problem Date Documented Date Episodic/Chronic Acute myocardial infarction (20 sources) Myocardial infarction; Translations: [Non-ST elevation (NSTEMI) myocardial infarction] Onset: 03-17-2022 03-17-2022 Chronic Bacterial infection; unspecified site (6 sources) Bacteremia caused by Gram-negative bacteria; Translations: [Bacteremia] 03-18-2022 Episodic Biliary tract disease (1 source) Calculus of gallbladder without cholecystitis without obstruction; Translations: [CALCU GB W/O CHOLECYST W/O OBST] Onset: 03-08-2022 Episodic Chronic obstructive pulmonary disease and bronchiectasis (2 sources) Chronic obstructive lung disease; Translations: [Chronic obstructive pulmonary disease, unspecified] Onset: 03-03-2015 Chronic Chronic ulcer of skin (11 sources) Ulcer of toe; Translations: [Non-pressure chronic ulcer of other part of right foot limited to breakdown of skin] Onset: 12-04-2023 Chronic Complication of device; implant or graft (2 sources) Arteriosclerosis of coronary artery bypass graft; Translations: [Coronary atherosclerosis of artery bypass graft] Onset: 03-03-2015 Chronic Coronary atherosclerosis and other heart disease (20 sources) Coronary arteriosclerosis; Translations: [Angina pectoris] Onset: 05-11-2017 06-01-2022 Chronic Delirium, dementia, and amnestic and other cognitive disorders (2 sources) Dementia; Translations: [Unspecified dementia without behavioral disturbance] Chronic Diabetes mellitus with complications (20 sources) Hyperglycemia due to type 2 diabetes mellitus; Translations: [Type 2 diabetes mellitus with hyperglycemia] Chronic Diabetes mellitus without complication (20 sources) Diabetes mellitus; Translations: [Type 2 diabetes mellitus without complication] Onset: 03-03-2015 02-27-2022 Chronic Diseases of white blood cells (10 sources) Leukocytosis; Translations: [Elevated white blood cell count, unspecified] Chronic Disorders of lipid metabolism (20 sources) Hyperlipidemia; Translations: [Hyperlipidemia, unspecified] Onset: 12-01-2021 02-27-2022 Chronic Esophageal disorders (2 sources) Gastro-esophageal reflux disease without esophagitis; Translations: [Gastro-esophageal reflux disease without esophagitis] Onset: 10-05-2023 Chronic Essential hypertension (20 sources) Hypertensive disorder; [...] 03-20-2022 Chronic Genitourinary symptoms and ill-defined conditions (20 sources) Calvin hematuria; Translations: [Blood in urine] Onset: 03-03-2022 02-27-2022 Episodic Headache; including migraine (17 sources) Headache 02-27-2022 Episodic Heart valve disorders (14 sources) Aortic valve disorder; Translations: [Nonrheumatic aortic (valve) stenosis] Onset: 05-11-2017 Chronic Hyperplasia of prostate (20 sources) Benign prostatic hypertrophy with outflow obstruction; Translations: [Benign prostatic hyperplasia with lower urinary tract symptoms] Onset: 02-27-2022 Chronic Inflammatory conditions of male genital organs (15 sources) Chronic prostatitis; Translations: [Chronic prostatitis] Onset: 06-25-2023 Chronic Inflammatory conditions of male genital organs (20 sources) Prostatitis; Translations: [Inflammatory disease of prostate, unspecified] Onset: 11-27-2022 Episodic Other aftercare (1 source) [facility] (current) use of 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; Translations: [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 SWITCH 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 CURRNT USE ANTICOAGULANTS] Onset: 03-20-2022 Episodic Other aftercare (1 source) Other intermediate manager (current) drug therapy; Translations: [OTH LONG-TERM CURRENT DRUG THERAPY] Onset: 03-20-2022 Episodic Other aftercare (1 source) exterminator (current) use of oral hypoglycemic drugs; Translations: [RAILWAY SWITCH OPERATOR USE ORAL HYPOGLYCEMIC DX] Onset: 03-20-2022 Episodic Other aftercare (8 sources) Long-term current use of anticoagulant; Translations: [[facility] (current) use of 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] Onset: 06-05-2022 Episodic Other and ill-defined heart disease (17 sources) Heart disease 02-27-2022 Chronic Other circulatory disease (5 sources) Low blood pressure; Translations: [Hypotension, unspecified] 03-17-2022 Episodic Other circulatory disease (3 sources) Hypotension, unspecified; Translations: [Hypotension, unspecified] 03-19-2022 Episodic Other connective tissue disease (1 source) Pain in right leg Episodic Other diseases of bladder and urethra (20 sources) Male urethral stricture; Translations: [Unspecified urethral stricture, male, unspecified site] Onset: 03-14-2022 Episodic Other ear and sense organ disorders (17 sources) Hearing loss 02-27-2022 Chronic Other injuries and conditions due to external causes (2 sources) History of fall; Translations: [History of falling] Episodic Other injuries and conditions due to external causes (2 sources) Wound pain ; Translations: [Other injury of unspecified body region, initial encounter] 10-30-2023 Episodic Other injuries and conditions due to external causes (3 sources) Other injury of unspecified body region, initial encounter; Translations: [Open wound(s) (multiple) of unspecified site(s), without mention of complication] Onset: 12-04-2023 11-08-2023 Episodic Other male genital disorders (15 sources) Male erectile dysfunction, unspecified; Translations: [Erectile dysfunction] Onset: 06-25-2023 Chronic Other male genital disorders (6 sources) Hydrocele of testis; Translations: [Hydrocele, unspecified] Onset: 06-25-2023 Episodic Other male genital disorders (10 sources) Disorder of male genital organ 06-25-2023 Episodic Other non-traumatic joint disorders (1 source) Pain in right hip Episodic Other nutritional; endocrine; and metabolic disorders (12 sources) Body mass index 25-29 - overweight; Translations: [Body mass index (BMI) 28.0-28.9, adult] Onset: 05-11-2017 Episodic Peripheral and visceral atherosclerosis (6 sources) Intermittent claudication; Translations: [Peripheral vascular disease, unspecified] Onset: 09-10-2023 Chronic Residual codes; unclassified (5 sources) Dependence on other enabling machines and devices; Translations: [Use of cane as ambulatory aid] Onset: 12-04-2023 10-30-2023 Chronic Residual codes; unclassified (5 sources) Urinary catheter in situ; Translations: [Presence of other specified devices] 03-18-2022 Episodic Residual codes; unclassified (1 source) Presence of other specified devices; Translations: [Other postprocedural status] 03-19-2022 Episodic Residual codes; unclassified (1 source) Other specified postprocedural states; Translations: [Personal history of surgery to heart and great vessels, presenting hazards to health] 03-19-2022 Episodic Unclassified (1 source) CONTACT W/AND (SUSP) EXPOS COVID-19; Translations: [CONTACT W/AND (SUSP) EXPOS COVID-19] Onset: 03-20-2022 Unclassified (15 sources) Drug therapy finding 06-05-2022 Unclassified (4 sources) Inflammatory disorder; Translations: [Inflammation] 10-30-2023 Urinary tract infections (11 sources) Acute urinary tract infection; Translations: [Urinary tract infection, site not specified] Onset: 03-20-2022 03-18-2022 Episodic Past or Other Problems Problem Classification Problem Date Documented Da te Episodic/Chronic Cataract (3 sources) 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; Translations: [Combined forms of age-related cataract, left eye] Onset: 09-18-2021 Resolved: 09-19-2021 Chronic Complications of surgical procedures or medical care (4 sources) Disruption of external operation (surgical) wound, not elsewhere classified, subsequent encounter; Translations: [Postprocedural seroma of skin and subcutaneous tissue following other procedure] Onset: 09-20-2023 Episodic Coronary atherosclerosis and other heart disease (13 sources) H/O cardiac surgery; 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] Onset: 08-17-2023 03-17-2022 Episodic Mycoses (7 sources) Candidiasis; Translations: [Candidiasis, unspecified] Onset: 10-05-2023 10-30-2023 Episodic Nonspecific chest pain (2 sources) Chest pain; Translations: [Other chest pain] Onset: 03-03-2016 Episodic Open wounds of head; neck; and trunk (2 sources) Unspecified open wound of abdominal wall, right lower quadrant without penetration into peritoneal cavity, initial encounter; Translations: [Unspecified open wound of abdominal wall, right lower quadrant without penetration into peritoneal cavity, initial encounter] Onset: 09-27-2023 Episodic Other aftercare (2 sources) [facility] (current) use of antibiotics; 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] Onset: 09-20-2023 Episodic Other circulatory disease (2 sources) Other hypotension; Translations: [Other hypotension] Onset: 12-19-2023 Episodic Other nervous system disorders (2 sources) Other acute postprocedural pain; Translations: [Other acute postprocedural pain] Onset: 09-10-2023 Episodic Other skin disorders (2 sources) Localized superficial swelling of skin; Translations: [Localized superficial swelling, mass, or lump] Onset: 06-17-2018 Episodic Phlebitis; thrombophlebitis and thromboembolism (4 sources) Acute deep venous thrombosis of left upper extremity; Translations: [Acute embolism and thrombosis of deep veins of left upper extremity] Onset: 06-17-2018 Episodic Residual codes; unclassified (2 sources) Generalized edema; Translations: [Generalized edema] Onset: 10-05-2023 Episodic Septicemia (except in labor) (11 sources) Sepsis; Translations: [Sepsis, unspecified organism] Onset: 03-20-2022 03-18-2022 Episodic Shock (2 sources) Severe sepsis with septic shock; Translations: [Severe sepsis with septic shock] Onset: 10-05-2023 Episodic Results Test Name Value Interpretation Reference Range [address] 06-12-2024 36 Normal [facility] Urology Office/Clinic Noteon 06-09-2024 Urology Office/Clinic Note Urology Office/Clinic Note Chief Complaint 3 month f/u HPI Staff Marilu is a 74 year old male presenting with 3 month f/u w/ PVR Previous DX; Previous dx: epididymoorchitis, chronic prostatitis, BPH with obstruction/LUTS, hydrocele, ED, urethral stricture in male, AC. PVR- 61 Dysuria: DENIES Incomplete bladder emptying: DENIES Hematuria: DENIES Frequency: EVERY COUPLE HOURS Urgency: DENIES Nocturia: DENIES Stream: DENIES Leaking: SOMETIMES Post void dripping: OCASIONALLY Wearing pads/ Depends: WEARS PADS DAILY Urge incontinence: DENIES Stress incontinence: DENIES Incontinence without Sensory Awareness: DENIES Abdominal pain: DENIES Flank pain: DENIES Sexual complaints: N/A History of Present Illness Tests reviewed: reviewed [...] HPI. Physical Exam Vitals & Measurements HR: 73(Peripheral) BP: 138/73 HT: 65 in HT: 166.0 cm WT: 81.0 kg WT: 178.574 lb BMI: 29.39 General Appearance: alert, no distress, well nourished, well developed male. Assessment/Plan Pt accompanied by today. 1. Chronic prostatitis (N41.1: Chronic prostatitis) Has been tx'd w/ Levaquin 500mg qd x3wks starting on 02/26/23. CT AP w con 10/04/23 [facility] - Bilateral perirenal fat stranding, nonspecific in candidate to infection/inflammation. Correlate with urinalysis. UCx 10/04/23 - >100k Pseudomonas aeruginosa and >100k Klebsiella oxytoca. Given vancomycin. 10/26/23 - 30-40k Sally albicans. Given antifungal powder. UCx 02/15/24 - >100k Enterobacter cloacae, tx'd w/ IV abx. states urine appeared clay in color and was odorous yesterday. Pt increased his water intake which improved urine color. UA today shows small blood. Denies gross hematuria. Denies pain with urination. Advised pt an infection my be starting. Recommended abx course given hx of infections and worsening of sxs. -Cont increased water intake -Take Levaquin 500mg qd x10 days. Rx sent to [facility]. 2. BPH with obstruction/lower urinary tract symptoms (N40.1: Benign prostatic hyperplasia with lower urinary tract symptoms) PSA: 04/11/17 - 1.78 12/01/21 - 1.23 PVR (cc): 11/27/22 - 05/28/23 - 150 06/25/23 - 57 12/21/23 - 16 02/15/24 - 25 06/09/24 - 61 S/p Cysto/UD 07/18/22 - Bilobar obstruction, severe bladder trabeculations with open diverticuli. Taking Tamsulosin 0.8mg qAM and Dutasteride 0.5mg qPM. Reports getting a stomach ache recently, feels this may be related to medications. Discussed he may have an upset stomach related to a viral infection or other possible etiology given this is not a typical SE. -Cont Tamsulosin and Dutasteride -Cont sx monitoring -F/u in 4 mos w/ PVR 3. Hydrocele (N43.3: Hydrocele, unspecified) Pt called 06/12/23 c/o of swollen testicles, R>L. No pain w/ swelling. Given Levaquin 50mg po qd x14 days. PE 06/25/23: bilateral hydroceles, R>>L. PE today, mild L hydrocele only. CT AP wo con 10/09/23 [facility] - Bilateral hydroceles, L appears somewhat loculated. Cystic structure R inguinal region is nonspecific. 4. ED (erectile dysfunction) (N52.9: Male erectile dysfunction, unspecified) Has nitro tablets, contraindicated with ED meds. Previously recommended CLAUDIA or ICI but pt did not prefer these treatment options. 5. Urethral stricture in male (N35.919: Unspecified urethral stricture, male, unspecified site) S/p Cysto/UD 03/14/22 (dilated to 28 Fr) and 07/18/22 (dilated to 16-30 Fr). [1] 6. Anticoagulated (Z79.01: [facility] (current) use of 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) On Xarelto. CABG x 4. AVR. Elevated risk for periop complications in the future. [2] Follow-up With When Contact Information NICOLE DIAZ, Cristo Frances, URL [facility] [address], [place] [phone] Additional Instructions: 4 mos w/ PVR Patient Education Prostatitis I, Opal Kessler, personally scribed for Dr. Rivera on 06/09/2024 11:14:10. . Documentation recorded by the scribe, Opal Kessler, accurately reflects the services(s) I performed and decisions made by me. Authenticated by Dr. Rivera on 06/09/2024 11:16:12. Problem List/Past Medical History Ongoing Anticoagulated BPH with obstruction/lower urinary tra (more content not included)... Normal [facility] Comment on above: Result Comment: Elec tronically Signed By: Cristo RIVERA MD\.br\Date and Time Signed: 06/09/24 11:16 EST\.br\Electronically Co-Signed By: Opal Kessler\.br\Date and Time Co-Signed: 06/09/24 11:14 EST C Urineon 03-27-2024 Bacteria identified Cx Nom (U) Microbiology PROCEDURE: Urine Culture [R1] SOURCE: U CleanCatch BODY SITE: COLLECTED DATE/TIME: 03/25/2024 09:30 EST RECEIVED DATE/TIME: 03/25/2024 18:31 EST START DATE/TIME: 03/25/2024 18:31 EST FREE TEXT SOURCE: Cristo RIVERA MD, MD, Patrick R FINAL REPORTS Final Report [] Verified Date/Time: 03/27/2024 09:19 EST 4,000 cfu/ml Mixed skin contaminants Performing Locations R1: This test was performed at: [facility], [address] [place] [address], [id number] , [place], [facility] Comment on above: Performed By: #### [id number] #### [facility] [address] [place] [id number] C Urineon 02-17-2024 Bacteria identified Cx Nom (U) Microbiology PROCEDURE: Urine Culture [R1] SOURCE: U Random BODY SITE: COLLECTED DATE/TIME: 02/15/2024 12:55 EDT RECEIVED DATE/TIME: 02/15/2024 18:09 EDT START DATE/TIME: 02/15/2024 18:09 EDT FREE TEXT SOURCE: NICOLE IDAZ, Cristo RIVERA MD, Cristo Frances FINAL REPORTS Final Report [] Verified Date/Time: 02/17/2024 09:57 EDT >100,000 cfu/ml Enterobacter cloacae SUSCEPTIBILITY RESULTS ___ LEGEND: S=Susceptible, N/R=Not Reported, Blank=Data not available, or drug not advisable or tested, I=Intermediate, ESBL=Extended spectrum beta-lactamase, R=Resistant, TFG=Thymidine-dependent strain, JESUS=Beta-lactamase positive, DMITRIY=mcg/m;(mg/L), S*=Predicted susceptible interp, R*=Predicted resistant interp Entclo Antibiotic DMITRIY Dilutn DMITRIY Interp Ampicillin >16 R Ampicillin/ >16/8 R Sulbactam Aztreonam <=4 S Cefazolin >16 R Cefepime <=2 S Ceftazidime <=1 S Ceftazidime/ <=8 S Avibactam Ceftriaxone <=1 S Cefuroxime >16 R Ciprofloxacin 1 R Ertapenem <=0.5 S Gentamicin <=2 S Levofloxacin 1 I Meropenem <=1 S Nitrofurantoin >64 R Piperacillin/ <=8 S Tazobactam Tetracycline <=4 S Tobramycin <=2 S Trimethoprim/ <=2/38 S Sulfa Performing Locations R1: This test was performed at: [facility], [address] [place] [address], [facility]- , [place], Normal [facility] Comment on above: Performed By: #### [id number] #### [facility] [address] [place] [address] Urology Office/Clinic Noteon 02-15-2024 Urology Office/Clinic Note Urology Office/Clinic Note Chief Complaint 2 month f/u with PVR HPI Staff 2 mos w/ PVR. PVR today is 25ml. Previous dx: epididymoorchitis, chronic prostatitis, BPH with obstruction/LUTS, hydrocele, ED, urethral stricture in male, AC. *Tamsulosin 0.8mg qAM and Dutasteride 0.5mg qPM Extended Cipro 500mg bid for another month at last encounter (pt had already taken this for a month). Dysuria: denies Incomplete bladder emptying: PVR 25ml Hematuria: denies Frequency: pt states that every time he stands he has to void Urgency: yes Nocturia: 2-3x Stream: no straining or intermittency Leaking: denies Post void dripping: denies Wearing pads/ Depends: denies Urge incontinence: denies Stress incontinence: denies Incontinence without Sensory Awareness: denies Abdominal pain: denies Flank pain: pt states he has back pain after being out working Sexual complaints: denies History of Present Illness Tests reviewed: reviewed UA. I have reviewed the previous health record [...] See HPI. Physical Exam Vitals & Measurements T: 37 ?C(Temporal Artery) HR: 80(Peripheral) RR: 16 BP: 131/71 HT: 65 in HT: 166 cm WT: 77.2 kg WT: 169.84 lb BMI: 28.02 General Appearance: alert, no distress, well nourished, well developed male. Genitourinary: improvement noted but not completely resolved. Minimal induration remaining on the R. Nontender. Examined pressure ulcer. Does not appear to be severe. Assessment/Plan Pt accompanied by today. 1. Epididymoorchitis (N45.3: Epididymo-orchitis) Pt was hospitalized 09/2023. Reports having wounds on coccyx and scrotum due to lying in bed for 8 days. Saw [facility] and was given antifungal powder and cleanser w honey dressing to be changed daily. PE 11/19/23: ~kiwi-sized, R-sided epididymoorchitis Was previously treated w/ Keflex 500mg qid x7 days. Started on Cipro 500mg bid x 1 mos at last visit. PE 12/21/23: ~R sided swelling has dramatically improved but still enlarged and hard. Small hydrocele on left. Cipro was extended at last visit, bid x 1 mos. Pt was also to begin daily oral probiotic since he is adamant that he will not eat yogurt. Pt states today that he completed antibiotic course and took daily probiotics. Pain has resolved. No testicular complaints. PE: ~improvement noted but not completely resolved. Minimal induration remaining on the R. Nontender. -Cont symptomatic monitoring -Follow up in 4 mos 2. Chronic prostatitis (N41.1: Chronic prostatitis) Has been tx'd w/ Levaquin 500mg qd x3wks starting on 02/26/23. CT AP w con 10/04/23 [facility] - Bilateral perirenal fat stranding, nonspecific in candidate to infection/inflammation. Correlate with urinalysis. UCx 10/04/23 - >100k Pseudomonas aeruginosa and >100k Klebsiella oxytoca. Given vancomycin. 10/26/23 - 30-40k Sally albicans. Given antifungal powder. UA today shows trace-intact blood and large leuks. Pt state he is not drinking enough water. Will send for culture. -See #1 -Urine culture sent today -Pt to be called with results, will treat if positive -Drastically increase water intake 3. BPH with obstruction/lower urinary tract symptoms (N40.1: Benign prostatic hyperplasia with lower urinary tract symptoms) PSA: 04/11/17 - 1.78 12/01/21 - 1.23 PVR (cc): 11/27/22 - 16 05/28/23 - 150 06/25/23 - 57 12/21/23 - 16 02/15/24 - 25 S/p Cysto/UD 07/18/22 - Bilobar obstruction, severe bladder trabeculations with open diverticuli. Taking Tamsulosin 0.8mg qAM and Dutasteride 0.5mg qPM. Mentions that every time he stands up he has to urinate. -Cont meds wo changes 4. Hydrocele (N43.3: Hydrocele, unspecified) Pt called 06/12/23 c/o of swollen testicles, R>L. No pain w/ swelling. Given Levaquin 50mg po qd x14 days. PE 06/25/23: bilateral hydroceles, R>>L. PE today, mild L hydrocele only. CT AP wo con 10/09/23 [facility] - Bilateral hydroceles, L appears somewhat loculated. Cystic structure R inguinal region is nonspecific. 5. ED (erectile dysfunction) (N52.9: Male erectile dysfunction, unspecified) Has nitro tablets, contraindicated with ED meds. Previously recommended CLAUDIA or ICI but (more content not included)... Normal [facility] Comment on above: Result Comment: Elec tronically Signed By: Cristo RIVERA MD\.br\Date and Time Signed: 02/15/24 09:55 EDT\.br\Electronically Co-Signed By: Carmen Crain\.br\Date and Time Co-Signed: 02/15/24 09:47 EDT Follow-Upon 12-24-2023 Follow-Up [facility] Ambulatory Visit Summaryon 0 12-21-2023 Ambulatory Visit Summary Ambulatory Visit Summary MARILU DAN SR :1950 Visit Date:12/21/2023 Ambulatory Visit Instructions Your Diagnosis Epididymoorchitis Chronic prostatitis BPH with obstruction/lower urinary tract symptoms Hydrocele ED (erectile dysfunction) Urethral stricture in male Anticoagulated Your Care Team Attending Physician - Cristo RIVERA MD Primary Care Physician - MARY BETH PITTS MD This Is Your Medications List ciprofloxacin (Cipro 500 mg Tab) dutasteride (dutasteride 0.5 mg Cap) tamsulosin (Flomax 0.4 mg Cap) Contact prescribing physician if questions or concerns amlodipine (amLODIPine 10 mg Tab) isosorbide mononitrate (isosorbide mononitrate 30 mg ER Tab) metformin (MetFORMIN (Eqv-Glucophage XR) 500 mg [...] - Coronary artery bypass grafts x 4, Cataract, Femoral artery. Discharge Vitals Heart Rate (Peripheral) 73 Respiratory Rate 16 Blood Pressure 136/72 Height 166 cm Height 65 in Weight 78.3 kg Weight 172.26 lb BMI 28.41 What to do next Scheduled Follow-Up Appointments Sunday 8:45 AM EDT With: Cristo RIVERA MD Where: [facility] of [address] [id number]- You Need to Schedule the Following Appointments Follow Up with NICOLE DIAZ, GLORIA Gupta When: Where: [facility] [place] [address]- Medications What How Much When Instructions New ciprofloxacin (Cipro 500 mg Tab) 1 Tablets By Mouth 2 times a day Duration: 30 Days Pickup at [facility] 0298 Unchanged dutasteride (dutasteride 0.5 mg Cap) 1 Capsules By Mouth Every day Duration: 30 Days Unchanged tamsulosin (Flomax 0.4 mg Cap) 2 Capsules By Mouth Every day Unchanged amlodipine (amLODIPine 10 mg Tab) Contact prescribing physician if questions or concerns Unchanged isosorbide mononitrate (isosorbide mononitrate 30 mg ER Tab) Contact prescribing physician if questions or concerns Unchanged metformin (MetFORMIN (Eqv-Glucophage XR) 500 mg oral tablet, extended release) Contact prescribing physician if questions or concerns Unchanged metoprolol (Metoprolol tartrate 50 mg Tab) Contact prescribing physician if questions or concerns Unchanged rivaroxaban (Xarelto 20 mg oral tablet) Contact prescribing physician if questions or concerns Unchanged simvastatin (simvastatin 40 mg Tab) Contact prescribing physician if questions or concerns Unchanged sitagliptin (Januvia 100 mg Tab) Contact prescribing physician if questions or concerns Unchanged spironolactone (spironolactone 25 mg Tab) Contact prescribing physician if questions or concerns Pharmacy Information [facility] [id number]: [address], [place] [phone] Allergies doxycycline (Blisters beneath skin) penicillin (Anaphylaxis, Throat tightness) sulfa drugs (Vomit) Problems Ongoing - Any problem that you are currently receiving treatment for. Anticoagulated BPH with obstruction/lower urinary tract symptoms CAD (coronary artery disease) Chronic prostatitis Diabetes ED (erectile dysfunction) Epididymoorchitis Gross hematuria Hard of hearing Headache Heart disease Hydrocele Hyperlipidemia Hypertension Myocardial infarction Prostatitis Urethral stricture in male Patient Survey You may receive a survey via text or e-mail asking about your office visit. Please share your experience with us by completing your survey. We appreciate your feedback and thank you for choosing us for your care. Education Materials Orchitis Orchitis is inflammation of a testicle. Testicles are the male organs that produce sperm. The testicles are held in a fleshy sac (scrotum) located behind the penis. Orchitis usually affects only one testicle, but it can affect both. Orchitis is caused by infection. Many kinds of bacteria and viruses can cause this infection. The condition can develop suddenly. What are the causes? This condition may be caused by: ? Infection from viruses or bacteria. ? Other organisms, such as fungi or parasites. This is rare but can happen in men who have a weak body defense system (immune system), such as men who have HIV. Bacteria ? Bacterial orchitis often occurs along with an infection of the tube that collects and stores sperm (epididymis). ? In men who are not sexually active, this infection usually starts as a urinary tract infection and spreads to the testicle. ? In sexually active men, sexually transmitted infections ( (more content not included)... Normal [facility] Urology Office/Clinic Noteon 12-21-2023 Urology Office/Clinic Note Urology Office/Clinic Note Chief Complaint 1m PVR HPI Staff 1 month w/ PVR. Dx: epididymoorchitis, chronic prostatitis, BPH with obstruction/LUTS, hydrocele, ED, urethral stricture in male, AC. *Tamsulosin 0.8mg qAM and Dutasteride 0.5mg qPM Given Cipro 500mg bid x1 month at prior OV.- Has 1 pill left. Scrotal swelling has improved. Still having some frequency, mostly through the night. States he is getting up q1hr. History of Present Illness Tests reviewed: reviewed UA. I have reviewed the previous health record [...] HPI. Physical Exam Vitals & Measurements HR: 73(Peripheral) RR: 16 BP: 136/72 HT: 65 in HT: 166 cm WT: 78.3 kg WT: 172.26 lb BMI: 28.41 General Appearance: alert, no distress, well nourished, well developed male. Genitourinary: R sided swelling has dramatically improved but still enlarged and hard. Small hydrocele on left. Assessment/Plan Pt accompanied by today. 1. Epididymoorchitis (N45.3: Epididymo-orchitis) Pt was hospitalized 09/2023. Reports having wounds on coccyx and scrotum due to lying in bed for 8 days. Saw [facility] and was given antifungal powder and cleanser w honey dressing to be changed daily. PE 11/19/23: ~kiwi-sized, R-sided epididymoorchitis Was previously treated w/ Keflex 500mg qid x7 days. Started on Cipro 500mg bid x 1 mos at last visit. Completed script this morning, believes he may of forgot 1 pill. Scrotal swelling has improved. PE: ~R sided swelling has dramatically improved but still enlarged and hard. Small hydrocele on left. Denies eating yogurt daily that was previously recommended. Mentions I cannot stomach that stuff . Adamant that he will not eat yogurt. Advised pt and his to take an oral probiotic bid while being on abx. Will extend abx course. -Begin oral probiotic bid -Will extend abx course -New script sent for Cipro 500mg bid x 1 mos Follow up in 2 mos or sooner if needed. 2. Chronic prostatitis (N41.1: Chronic prostatitis) Has been tx'd w/ Levaquin 500mg qd x3wks starting on 02/26/23. CT AP w con 10/04/23 [facility] - Bilateral perirenal fat stranding, nonspecific in candidate to infection/inflammation. Correlate with urinalysis. UCx 10/04/23 - >100k Pseudomonas aeruginosa and >100k Klebsiella oxytoca. Given vancomycin. 10/26/23 - 30-40k Sally albicans. Given antifungal powder. -See #1. 3. BPH with obstruction/lower urinary tract symptoms (N40.1: Benign prostatic hyperplasia with lower urinary tract symptoms) PSA: 04/11/17 - 1.78 12/01/21 - 1.23 PVR (cc): 11/27/22 - 16 05/28/23 - 150 06/25/23 - 57 12/21/23 - 16 S/p Cysto/UD 07/18/22 - Bilobar obstruction, severe bladder trabeculations with open diverticuli. UA today neg for infection or blood. Taking Tamsulosin 0.8mg qAM and Dutasteride 0.5mg qPM. Voiding frequently, mainly during the night. Nocturia 3-4x. Typically voids every 2-3 hours during the day. reports pt does not drink nearly enough water. -Cont meds wo changes -Consider possible TURP once infection clears -PVR in 2 mos 4. Hydrocele (N43.3: Hydrocele, unspecified) Pt called 06/12/23 c/o of swollen testicles, R>L. No pain w/ swelling. Given Levaquin 50mg po qd x14 days. PE 06/25/23: bilateral hydroceles, R>>L. CT AP wo con 10/09/23 [facility] - Bilateral hydroceles, L appears somewhat loculated. Cystic structure R inguinal region is nonspecific. 5. ED (erectile dysfunction) (N52.9: Male erectile dysfunction, unspecified) Has nitro tablets, contraindicated with ED meds. Previously recommended CLAUDIA or ICI but pt did not prefer these treatment options. 6. Urethral stricture in male (N35.919: Unspecified urethral stricture, male, unspecified site) S/p Cysto/UD 03/14/22 (dilated to 28 Fr) and 07/18/22 (dilated to 16-30 Fr). [1] 7. 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 Had aortic valve replacement. Elevated risk for periop complications in the future. [2] Follow-up With When Contact Information Cristo RIVERA MD, URL [id number] [facility] [place] [address]- Additional Instructions: 2 mos w/ PVR Patient Education Orchitis Epid (more content not included)... Normal [facility] Comment on above: Result Comment: Elec tronically Signed By: Cristo RIVERA MD\.br\Date and Time Signed: 12/21/23 08:31 EDT\.br\Electronically Co-Signed By: Carmen Crain\Date and Time Co-Signed: 12/21/23 08:29 EDT 37on 11-23-2023 37 Cut lisinopril to 10 mg daily ( take 2- 5mg tablets)- if b/p remains low and your lightheaded/dizzy or pass out may decrease down to 5 mg a day. Call office for any concerns Echocardiogram as scheduled Normal [facility] Basophils Auto (Bld) [#/Vol] on 11-23-2023 Basophils (Bld) [#/Vol] 0.0 10 3/uL 0.0-0.1 [facility] Basophils/100 WBC Auto (Bld) on 11-23-2023 Basophils/100 WBC (Bld) 0.1 % Low 0.2-2.0 [facility] Eosinophils/100 WBC Auto (Bl d)on 11-23-2023 Eosinophils/100 WBC (Bld) 0.8 % Low 0.9-7.0 [facility] Erythrocyte distribution wid th Auto (RBC) [Ratio]on 11-23-2023 Erythrocyte distribution width (RBC) [Ratio] 14.2 % 11.0-15.0 [facility] Estimated glomerular filtrat ion rate (GFR) non- Americanon 11-23-2023 GFR/1.73 sq M.predicted among non-blacks MDRD (S/P/Bld) [Vol rate/Area] mL/min/{1.73_m2} >=60 [facility] Globulin Calc (S) [Mass/Vol] on 11-23-2023 Globulin (S) [Mass/Vol] 4.2 g/dL [facility] Hematocrit Auto (Bld) [Volum e fraction]on 11-23-2023 Hematocrit (Bld) [Volume fraction] 34.1 % Low 42.0-54.0 [facility] Hemoglobin [Mass/volume] in Bloodon 11-23-2023 Hemoglobin (Bld) [Mass/Vol] 10.6 g/dL Low 14.0-18.0 [facility] Laboratory - Chemistry and C hemistry - challengeon 11-23-2023 Albumin [Mass/Vol] 3.1 g/dL Low 3.4-5.0 [facility] ALP [Catalytic activity/Vol] 77 U/L 46-116 [facility] ALT [Catalytic activity/Vol] 18 U/L 16-63 [facility] AST [Catalytic activity/Vol] 10 U/L Low 15-37 [facility] Bilirubin [Mass/Vol] 0.4 mg/dL 0.2-1.0 [facility] Calcium [Mass/Vol] 9.0 mg/dL 8.5-10.1 [facility] Chloride [Moles/Vol] 101 mmol/L 98-107 [facility] CO2 [Moles/Vol] 26.0 mmol/L 21.0-32.0 [facility] Creatinine [Mass/Vol] 1.07 mg/dL 0.70-1.30 [facility] GFR/1.73 sq M.predicted MDRD (S/P/Bld) [Vol rate/Area] mL/min/{1.73_m2} >=60 [facility] Glucose [Mass/Vol] 174 mg/dL High 74-106 [facility] Potassium [Moles/Vol] 4.4 mmol/L 3.5-5.1 [facility] Protein [Mass/Vol] 7.3 g/dL 6.4-8.2 [facility] Sodium [Moles/Vol] 135 mmol/L Low 136-145 [facility] Urea nitrogen [Mass/Vol] 22.0 mg/dL High 7.0-18.0 [facility] Urea nitrogen/Creatinine [Mass ratio] 20.6 mg/mg [facility] Laboratory - Hematology and Cell countson 11-23-2023 Immature granulocytes/100 WBC (Bld) 0.2 % 0.0-0.5 [facility] Leukocytes [#/volume] correc seth for nucleated erythrocytes in Blood by Automated counon 11-23-2023 WBC corrected for nucl RBC Auto (Bld) [#/Vol] 8.3 10 3/uL 4.0-11.0 [facility] Lymphocytes Auto (Bld) [#/Vo l]on 11-23-2023 Lymphocytes (Bld) [#/Vol] 2.1 10 3/uL 1.2-3.8 [facility] Lymphocytes/100 WBC Auto (Bl d)on 11-23-2023 Lymphocytes/100 WBC (Bld) 25.3 % 20.5-60.0 [facility] MCH Auto (RBC) [Entitic mass ]on 11-23-2023 MCH (RBC) [Entitic mass] 27.6 pg 25.9-34.0 [facility] MCHC Auto (RBC) [Mass/Vol]on 11-23-2023 MCHC (RBC) [Mass/Vol] 31.1 g/dL 29.9-35.2 [facility] MCV Auto (RBC) [Entitic vol] on 11-23-2023 MCV (RBC) [Entitic vol] 88.8 fL 80.0-94.0 [facility] Monocytes Auto (Bld) [#/Vol] on 11-23-2023 Monocytes (Bld) [#/Vol] 0.7 10 3/uL 0.3-0.8 [facility] Monocytes/100 WBC Auto (Bld) on 11-23-2023 Monocytes/100 WBC (Bld) 8.5 % 1.7-12.0 [facility] Neutrophils Auto (Bld) [#/Vo l]on 11-23-2023 Neutrophils (Bld) [#/Vol] 5.4 10 3/uL 1.4-6.5 [facility] Neutrophils/100 WBC Auto (Bl d)on 11-23-2023 Neutrophils/100 WBC (Bld) 65.1 % 43.0-75.0 [facility] No Panel Informationon 11-22 Eosinophils # (Auto) 0.1 10 3/uL 0.0-0.7 [facility] Immature Granulocyte # (Auto) 0.02 10 3/uL 0.00-0.03 [facility] Platelet mean volume Auto (B ld) [Entitic vol]on 11-23-2023 Platelet mean volume (Bld) [Entitic vol] 9.8 fL 9.5-13.5 [facility] Platelets Auto (Bld) [#/Vol] on 11-23-2023 Platelets (Bld) [#/Vol] 235 10 3/uL 150-450 [facility] RBC Auto (Bld) [#/Vol]on RBC (Bld) [#/Vol] 3.84 10 6/uL Low 4.70-6.10 [facility] Serum or plasma albumin/glob ulin mass ratioon 11-23-2023 Albumin/Globulin [Mass ratio] 0.7 {ratio} [facility] Serum or plasma anion gap de terminationon 11-23-2023 Anion gap [Moles/Vol] 12.4 mmol/L [facility] Follow-Upon 11-22-2023 Follow-Up Normal [facility] Ambulatory Visit Summaryon 0 11-19-2023 Ambulatory Visit Summary Ambulatory Visit Summary SY STARR MARILU :1950 Visit Date:11/19/2023 Ambulatory Visit Instructions Your Diagnosis Epididymoorchitis Chronic prostatitis BPH with obstruction/lower urinary tract symptoms Hydrocele ED (erectile dysfunction) Urethral stricture in male Anticoagulated Your Care Team Attending Physician - Cristo RIVERA MD Primary Care Physician - MARY BETH PITTS MD This Is Your Medications List ciprofloxacin (Cipro 500 mg Tab) dutasteride (dutasteride 0.5 mg Cap) tamsulosin (Flomax [...] mg Tab) spironolactone (spironolactone 25 mg Tab) [Image Removed: STOP]Stop taking these medications cephalexin (cephalexin 500 mg Cap) Procedures Performed Cystoscopy (07/18/2022), Cystourethroscopy with dilation of urethral stricture (03/14/2022), AVR - Aortic valve replacement, CABG x 4 - Coronary artery bypass grafts x 4, Cataract, Femoral artery. Discharge Vitals Heart Rate (Peripheral) 81 Respiratory Rate 16 Blood Pressure 125/59 Height 166 cm Height 65 in Weight 74 kg Weight 162.8 lb BMI 26.85 What to do next Scheduled Follow-Up Appointments Sunday 9:15 AM EDT With: NICOLE DIAZ, Cristo Frances Where: [facility] [place] Normal [facility] Urology Office/Clinic Noteon 11-19-2023 Urology Office/Clinic Note Urology Office/Clinic Note Chief Complaint f/u to Hydrocele HPI Staff 5 month f/u. Dx: hydrocele, ED, chronic prostatitis, BPH with obstruction/LUTS, urethral stricture in male, AC. *Tamsulosin 0.8mg qd and Dutasteride 0.5mg qd (needs refill of Tamsulosin) Last PSA 12/01/21 - 1.23. CT AP w con done 10/04/23 (ordered by ER doc) at [facility]. UCx 10/04/23 - >100k Pseudomonas aeruginosa and >100k Klebsiella oxytoca. Given vancomycin. UCx 10/26/23 - 30-40k Sally albicans. CT AP wo con done 10/09/23 at [facility] (ordered due to PREM and continued septic shock after UTI). Continues Keflex therapy. Lump on RT groin.Denies pain. Denies pain/burning and visible blood in urine. Urge to void when he stands. Denies loss of bladder control. (Uses urinal) Sores on buttocks and scrotum. History of Present Illness Tests reviewed: reviewed UA, urine cultures, CT scans I have reviewed the previous health record [...] HPI. Physical Exam Vitals & Measurements HR: 81(Peripheral) RR: 16 BP: 125/59 HT: 65 in HT: 166 cm WT: 74 kg WT: 162.8 lb BMI: 26.85 General Appearance: alert, no distress, well nourished, well developed male. Genitourinary: abnormal scrotum - hemotoma, abnormal testes - bilateral hydroceles, R>L, normal urethra, abnormal epididymis - R sided epididymoorchitis kiwi-sized, normal vas deferens/spermatic cord. Assessment/Plan Pt here with is today. 1. Epididymoorchitis (N45.3: Epididymo-orchitis) Pt was hospitalized in the last month. Reports having wounds on coccyx and scrotum due to lying in bed for 8 days. Saw [facility] and was given antifungal powder and cleanser w honey dressing to be changed daily. PE: kiwi-sized, R-sided epididymoorchitis UA today negative for blood and infection. Was given Keflex 500mg qid x7 days. Denies eating yogurt daily but does take probiotics. Recommended pt to switch abx to better treat infection. Risks/benefits discussed. -D/c clindamycin and cephalexin -Start Cipro 500mg bid x1 month. Take with probiotics and eat yogurt daily. -F/u in 1 month to reassess sxs 2. Chronic prostatitis (N41.1: Chronic prostatitis) Has been tx'd w/ Levaquin 500mg qd x3wks starting on 02/26/23. CT AP w con 10/04/23 [facility] - Bilateral perirenal fat stranding, nonspecific in candidate to infection/inflammation. Correlate with urinalysis. UCx 10/04/23 - >100k Pseudomonas aeruginosa and >100k Klebsiella oxytoca. Given vancomycin. 10/26/23 - 30-40k Sally albicans. Given antifungal powder. -See #1. 3. BPH with obstruction/lower urinary tract symptoms (N40.1: Benign prostatic hyperplasia with lower urinary tract symptoms) S/p Cysto/UD 07/18/22 - Bilobar obstruction, severe bladder trabeculations with open diverticuli. PSA 04/11/17 - 1.78 12/01/21 - 1.23 PVR (cc): 11/27/22 - 16 05/28/23 - 150 06/25/23 - 57 Taking Tamsulosin 0.8mg qAM and Dutasteride 0.5mg qPM. Denies any changes in urinary habits at this time. -Cont meds wo changes. Refills of Tamsulosin sent. 4. Hydrocele (N43.3: Hydrocele, unspecified) Pt called 06/12/23 c/o of swollen testicles, R>L. No pain w/ swelling. Given Levaquin 50mg po qd x14 days. PE 06/25/23: bilateral hydroceles, R>>L. CT AP wo con 10/09/23 [facility] - Bilateral hydroceles, L appears somewhat loculated. Cystic structure R inguinal region is nonspecific. 5. ED (erectile dysfunction) (N52.9: Male erectile dysfunction, unspecified) Has nitro tablets, contraindicated with ED meds. Previously recommended CLAUDIA or ICI but pt did not prefer these treatment options. 6. Urethral stricture in male (N35.919: Unspecified urethral stricture, male, unspecified site) S/p Cysto/UD done 03/14/22 (dilated to 28 Fr) and 07/18/22 (dilated to 16-30 Fr). [1] 7. Anticoagulated (Z79.01: [facility] (current) use of 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) On Xarelto. Had aortic valve replacement. Elevated risk for periop complications in the future. [2] Follow-up With When Contact Information Cristo RVIERA MD, URL [facility] [address] , [place] [address] [phone] Additional Instructions: 1 month (no labs) Patient Education Epididymitis Orchitis I, Opal Kessler, personally scribed for Dr. Rivera on 11/19/2023 09:43:41. . (more content not included)... Normal [facility] Comment on above: Result Comment: Elec tronically Signed By: Cristo RIVERA MD\Brookbr\Date and Time Signed: 11/19/23 09:45 EDT\.br\Electronically Co-Signed By: Opal Kessler\orlin\Date and Time Co-Signed: 11/19/23 09:43 EDT 36on 11-16-2023 36 Normal [facility] Orders Onlyon 11-16-2023 Orders Only Normal [facility] Telephoneon 11-16-2023 Telephone Normal [facility] RAD - CT Reporton 10-30-2023 RAD - CT Report [id number] Normal [facility] Lab Reportson 10-29-2023 Lab Reports [id number]#1.00TIF F Normal [facility] Lab Reports [id number]#[id number] Normal [facility] Lab Reports [id number]#1.00TIF F Normal [facility] Laboratory - Microbiology an d Antimicrobial susceptibilityOrdered By: Cristo Rivera on 10-26-2023 Bacteria identified Cx Nom (U) [facility] Physician Referralon 024 Physician Referral [id number] Normal [facility] BASIC METABOLIC PANELon Anion gap [Moles/Vol] 13 mmol/L Normal 7-20 [facility] Comment on above: Performed By: #### L [id number] ####[facility] ([facility])[address] [place] [address] Calcium [Mass/Vol] 7.4 mg/dL Low 8.6-10.3 [facility] Comment on above: Performed By: #### L [id number] ####[facility] ([facility])[address] [place] [address] Chloride [Moles/Vol] 101 mmol/L Normal 98-107 [facility] Comment on above: Performed By: #### L [id number] ####[facility] ([facility])[address] [place] [address] CO2 [Moles/Vol] 24 mmol/L Normal 21-[address] [facility] Comment on above: Performed By: #### L [id number] ####[facility] ([facility])[address] [place] [address] Creatinine [Mass/Vol] 0.72 mg/dL Normal 0.70-1.30 [facility] Comment on above: Performed By: #### L [id number] ####[facility] ([facility])[address] [place] [address] GLOMERULAR FILTRATION RATE ML/MIN/1.73 SQ M.PREDICTED 95.3 mL/min/1.73m*2 Normal >60.0 [facility] Comment on above: Result Comment: The [facility]???s estimated glomerular filtration rate (eGFR) will no [...] of individuals. Performed By: #### L [id number] ####[facility] ([facility])[address] [place] [address] Glucose [Mass/Vol] 168 mg/dL High 70-100 [facility] Comment on above: Performed By: #### L [id number] ####[facility] ([facility])[address] [place] [address] Potassium [Moles/Vol] 4.2 mmol/L Normal 3.5-5.1 [facility] Comment on above: Performed By: #### L [id number] ####[facility] ([facility])[address] [place] [address] Sodium [Moles/Vol] 134 mmol/L Low 136-145 [facility] Comment on above: Performed By: #### L [id number] ####[facility] ([facility])[address] [place] [address] Urea nitrogen [Mass/Vol] 10 mg/dL Normal 7-25 [facility] Comment on above: Performed By: #### L [id number] ####[facility] [place] [address] UREA NITROGEN/CREATININE (MASS RATIO) IN SER/PLAS 13.9 Normal [facility] Comment on above: Performed By: #### L [id number] ####[facility] [place] [address] CBC WITH AUTO DIFFERENTIALon 10-13-2023 Basophils (Bld) [#/Vol] 0.04 10*3/uL Normal 0.00-0.20 [facility] Comment on above: Performed By: #### L [id number] ####[facility] ([facility] [place] [address] Basophils/100 WBC (Bld) 0.3 % Normal 0.0-1.0 [facility] Comment on above: Performed By: #### L [id number] ####[facility] ([facility] [place] [address] Eosinophils (Bld) [#/Vol] 0.20 10*3/uL Normal 0.00-0.50 [facility] Comment on above: Performed By: #### L [id number] ####[facility] ([facility])[address] [place] [address] Eosinophils/100 WBC (Bld) 1.5 % Normal 0.0-6.0 [facility] Comment on above: Performed By: #### L [id number] ####[facility] ([facility])[address] [place] [address] Erythrocyte distribution width (RBC) [Ratio] 14.2 % Normal 11.5-15.0 [facility] Comment on above: Performed By: #### L [id number] ####[facility] ([facility])[address] [place] [address] ERYTHROCYTE MEAN CORPUSCULAR HEMOGLOBIN CONCENTRATION (G/DL) BY AUTOMATED 31.9 g/dL Low 32.0-35.0 [facility] Comment on above: Performed By: #### L [id number] ####[facility] ([facility])[address] [place] [address] Hematocrit (Bld) [Volume fraction] 29.5 % Low 39.0-55.0 [facility] Comment on above: Performed By: #### L [id number] ####[facility] ([facility] [place] [address] Hemoglobin (Bld) [Mass/Vol] 9.4 g/dL Low 13.0-17.0 [facility] Comment on above: Performed By: #### L [id number] ####[facility] ([facility])[address] [place] [address] Immature granulocytes (Bld) [#/Vol] 0.24 10*3/uL High 0.00-0.20 [facility] Comment on above: Performed By: #### L [id number] ####[facility] ([facility])[address] [place] [address] Immature granulocytes/100 WBC (Bld) 1.8 % High 0.0-1.0 [facility] Comment on above: Performed By: #### L [id number] ####[facility] ([facility])[address] [place] [address] Lymphocytes (Bld) [#/Vol] 1.35 10*3/uL Normal 1.20-4.00 [facility] Comment on above: Performed By: #### L [id number] ####[facility] ([facility])[address] [place] [address] Lymphocytes/100 WBC (Bld) 10.1 % Low 20.0-45.0 [facility] Comment on above: Performed By: #### L [id number] ####[facility] ([facility])[address] [place] [address] MCH (RBC) [Entitic mass] 29.8 pg Normal 27.0-33.0 [facility] Comment on above: Performed By: #### L [id number] ####[facility] ([facility])[address] [place] [address] MCV (RBC) [Entitic vol] 93.7 fL Normal 82.0-98.0 [facility] Comment on above: Performed By: #### L [id number] ####[facility] ([facility])[address] [place] [address] Monocytes (Bld) [#/Vol] 0.85 10*3/uL Normal 0.10-1.00 [facility] Comment on above: Performed By: #### L [id number] ####[facility] ([facility])[address] [place] [address] Monocytes/100 WBC (Bld) 6.3 % Normal 5.0-12.0 [facility] Comment on above: Performed By: #### L [id number] ####[facility] ([facility])[address] [place] [address] Neutrophils (Bld) [#/Vol] 10.74 10*3/uL High 1.60-7.60 [facility] Comment on above: Performed By: #### L [id number] ####[facility] ([facility])[address] [place] [address] Neutrophils/100 WBC (Bld) 80.0 % High 40.0-72.0 [facility] Comment on above: Performed By: #### L [id number] ####[facility] [place] [address] NRBC (PER 100 WBCS) BY AUTOMATED COUNT 0.0 % Normal 0 [facility] Comment on above: Performed By: #### L [id number] ####[facility] [place] [address] PLATELETS (10*3/UL) IN BLOOD AUTOMATED COUNT 251 10*3/uL Normal 150-400 [facility] Comment on above: Performed By: #### L [id number] ####[facility] [place] [address] RBC (Bld) [#/Vol] 3.15 10*6/uL Low 4.20-5.70 [facility] Comment on above: Performed By: #### L [id number] ####[facility] ([facility])[address] [place] [address] WBC (Bld) [#/Vol] 13.42 10*3/uL High 4.00-10.60 [facility] Comment on above: Performed By: #### L [id number] ####[facility] ([facility])[address] [place] [address] DSon 10-13-2023 DS Normal [facility] POCT GLUCOSE METER UNSOLICIT ED RESULTSon 10-13-2023 Glucose [Mass/Vol] 197 mg/dL High 70-105 [facility] Comment on above: Order Comment: Waive d Testing in the ED is performed under the ED CLIA certificate #[id number]. Result Comment: sbel cad Performed By: #### L [id number] ####[facility] ([facility])[address] [place] [address] 30on 10-12-2023 30 Normal [facility] APTTon 10-12-2023 ACTIVATED PARTIAL THROMBOPLASTIN TIME IN PPP BY COAGULATION ASSAY 140.8 Seconds Critically high 25.0-35.0 [facility] Comment on above: Result Comment: Clin ical significance of the APTT is questionable in the presence of heparin. Performed By: #### L [id number] ####[facility] ([facility])[address] [place] [address] ACTIVATED PARTIAL THROMBOPLASTIN TIME IN PPP BY COAGULATION ASSAY 128.9 Seconds High 25.0-35.0 [facility] Comment on above: Result Comment: Clin ical significance of the APTT is questionable in the presence of heparin. Performed By: #### L [id number] ####[facility] ([facility])[address] [place] [address] BASIC METABOLIC PANELon - Anion gap [Moles/Vol] 8 mmol/L Normal 7-20 [facility] Comment on above: Performed By: #### L [id number] ####[facility] ([facility])[address] [place] [address] Calcium [Mass/Vol] 7.2 mg/dL Low 8.6-10.3 [facility] Comment on above: Performed By: #### L [id number] ####[facility] ([facility])[address] [place] [address] Chloride [Moles/Vol] 102 mmol/L Normal 98-107 [facility] Comment on above: Performed By: #### L [id number] ####[facility] ([facility])[address] [place] [address] CO2 [Moles/Vol] 30 mmol/L Normal 21-[address] [facility] Comment on above: Performed By: #### L [id number] ####[facility] ([facility])[address] [place] [address] Creatinine [Mass/Vol] 0.68 mg/dL Low 0.70-1.30 [facility] Comment on above: Performed By: #### L [id number] ####[facility] ([facility])[address] [place] [address] GLOMERULAR FILTRATION RATE ML/MIN/1.73 SQ M.PREDICTED 96.9 mL/min/1.73m*2 Normal >60.0 [facility] Comment on above: Result Comment: The [facility]???s estimated glomerular filtration rate (eGFR) will no [...] of individuals. Performed By: #### L [id number] ####[facility] [place] [address] Glucose [Mass/Vol] 140 mg/dL High 70-100 [facility] Comment on above: Performed By: #### L [id number] ####[facility] [place] [address] Potassium [Moles/Vol] 3.3 mmol/L Low 3.5-5.1 [facility] Comment on above: Performed By: #### L [id number] ####[facility] ([facility])[address] [place] [address] Sodium [Moles/Vol] 137 mmol/L Normal 136-145 [facility] Comment on above: Performed By: #### L [id number] ####[facility] ([facility])[address] [place] [address] Urea nitrogen [Mass/Vol] 9 mg/dL Normal 7-25 [facility] Comment on above: Performed By: #### L [id number] ####[facility] ([facility])[address] [place] [address] UREA NITROGEN/CREATININE (MASS RATIO) IN SER/PLAS 13.2 Normal [facility] Comment on above: Performed By: #### L [id number] ####[facility] ([facility])[address] [place] [address] CBC WITH AUTO DIFFERENTIALon 10-12-2023 Basophils (Bld) [#/Vol] 0.03 10*3/uL Normal 0.00-0.20 [facility] Comment on above: Performed By: #### L [id number] ####[facility] [place] [address] Basophils/100 WBC (Bld) 0.2 % Normal 0.0-1.0 [facility] Comment on above: Performed By: #### L [id number] ####[facility] ([facility])[address] [place] [address] Eosinophils (Bld) [#/Vol] 0.21 10*3/uL Normal 0.00-0.50 [facility] Comment on above: Performed By: #### L [id number] ####[facility] ([facility])[address] [place] [address] Eosinophils/100 WBC (Bld) 1.4 % Normal 0.0-6.0 [facility] Comment on above: Performed By: #### L [id number] ####[facility] [place] [address] Erythrocyte distribution width (RBC) [Ratio] 13.7 % Normal 11.5-15.0 [facility] Comment on above: Performed By: #### L [id number] ####[facility] ([facility])[address] [place] [address] ERYTHROCYTE MEAN CORPUSCULAR HEMOGLOBIN CONCENTRATION (G/DL) BY AUTOMATED 32.3 g/dL Normal 32.0-35.0 [facility] Comment on above: Performed By: #### L [id number] ####[facility] [place] [address] Hematocrit (Bld) [Volume fraction] 29.4 % Low 39.0-55.0 [facility] Comment on above: Performed By: #### L [id number] ####[facility] ([facility])[address] [place] [address] Hemoglobin (Bld) [Mass/Vol] 9.5 g/dL Low 13.0-17.0 [facility] Comment on above: Performed By: #### L [id number] ####[facility] ([facility])[address] [place] [address] Immature granulocytes (Bld) [#/Vol] 0.48 10*3/uL High 0.00-0.20 [facility] Comment on above: Performed By: #### L [id number] ####[facility] ([facility])[address] [place] [address] Immature granulocytes/100 WBC (Bld) 3.2 % High 0.0-1.0 [facility] Comment on above: Performed By: #### L [id number] ####[facility] ([facility])[address] [place] [address] Lymphocytes (Bld) [#/Vol] 2.16 10*3/uL Normal 1.20-4.00 [facility] Comment on above: Performed By: #### L [id number] ####[facility] ([facility])[address] [place] [address] Lymphocytes/100 WBC (Bld) 14.3 % Low 20.0-45.0 [facility] Comment on above: Performed By: #### L [id number] ####[facility] ([facility])[address] [place] [address] MCH (RBC) [Entitic mass] 29.1 pg Normal 27.0-33.0 [facility] Comment on above: Performed By: #### L [id number] ####[facility] ([facility])[address] [place] [address] MCV (RBC) [Entitic vol] 90.2 fL Normal 82.0-98.0 [facility] Comment on above: Performed By: #### L [id number] ####[facility] ([facility])[address] [place] [address] Monocytes (Bld) [#/Vol] 0.95 10*3/uL Normal 0.10-1.00 [facility] Comment on above: Performed By: #### L [id number] ####[facility] ([facility])[address] [place] [address] Monocytes/100 WBC (Bld) 6.3 % Normal 5.0-12.0 [facility] Comment on above: Performed By: #### L [id number] ####[facility] ([facility])[address] [place] [address] Neutrophils (Bld) [#/Vol] 11.30 10*3/uL High 1.60-7.60 [facility] Comment on above: Performed By: #### L [id number] ####[facility] [place] [address] Neutrophils/100 WBC (Bld) 74.6 % High 40.0-72.0 [facility] Comment on above: Performed By: #### L [id number] ####[facility] ([facility])[address] [place] [address] NRBC (PER 100 WBCS) BY AUTOMATED COUNT 0.0 % Normal 0 [facility] Comment on above: Performed By: #### L [id number] ####[facility] ([facility])[address] [place] [address] PLATELETS (10*3/UL) IN BLOOD AUTOMATED COUNT 273 10*3/uL Normal 150-400 [facility] Comment on above: Performed By: #### L [id number] ####[facility] ([facility])[address] [place] [address] RBC (Bld) [#/Vol] 3.26 10*6/uL Low 4.20-5.70 [facility] Comment on above: Performed By: #### L [id number] ####[facility] ([facility])[address] [place] [address] WBC (Bld) [#/Vol] 15.13 10*3/uL High 4.00-10.60 [facility] Comment on above: Performed By: #### L [id number] ####[facility] ([facility])[address] [place] [address] POCT GLUCOSE METER UNSOLICIT ED RESULTSon 10-12-2023 Glucose [Mass/Vol] 136 mg/dL High 70-105 [facility] Comment on above: Order Comment: Waive d Testing in the ED is performed under the ED CLIA certificate #[id number]. Result Comment: [email or web address] Performed By: #### L [id number] ####[facility] ([facility] [place] [address] Glucose [Mass/Vol] 205 mg/dL High 70-105 [facility] Comment on above: Order Comment: Waive d Testing in the ED is performed under the ED CLIA certificate #[id number]. Result Comment: [email or web address] Performed By: #### L [id number] ####[facility] ([facility])[address] [place] [address] Glucose [Mass/Vol] 295 mg/dL High 70-105 [facility] Comment on above: Order Comment: Waive d Testing in the ED is performed under the ED CLIA certificate #[id number]. Result Comment: [email or web address] Performed By: #### L [id number] ####[facility] ([facility])[address] [place] [address] Glucose [Mass/Vol] 156 mg/dL High 70-105 [facility] Comment on above: Order Comment: Waive d Testing in the ED is performed under the ED CLIA certificate #[id number]. Result Comment: [email or web address] Performed By: #### L [id number] ####[facility] ([facility])[address] [place] [address] 30on 10-11-2023 30 Normal [facility] APTTon 10-11-2023 ACTIVATED PARTIAL THROMBOPLASTIN TIME IN PPP BY COAGULATION ASSAY 167.7 Seconds Critically high 25.0-35.0 [facility] Comment on above: Result Comment: Clin ical significance of the APTT is questionable in the presence of heparin. Performed By: #### L [id number] ####[facility] ([facility])[address] [place] [address] ACTIVATED PARTIAL THROMBOPLASTIN TIME IN PPP BY COAGULATION ASSAY 135.7 Seconds Critically high 25.0-35.0 [facility] Comment on above: Result Comment: Clin ical significance of the APTT is questionable in the presence of heparin. Performed By: #### L [id number] ####[facility] ([facility] [place] [address] ACTIVATED PARTIAL THROMBOPLASTIN TIME IN PPP BY COAGULATION ASSAY 113.2 Seconds High 25.0-35.0 [facility] Comment on above: Result Comment: Clin ical significance of the APTT is questionable in the presence of heparin. Performed By: #### L [id number] ####[facility] ([facility])[address] [place] [address] BASIC METABOLIC PANELon 05-3 Anion gap [Moles/Vol] 9 mmol/L Normal 7-20 [facility] Comment on above: Performed By: #### L [id number] ####[facility] ([facility])[address] [place] [address] Calcium [Mass/Vol] 7.6 mg/dL Low 8.6-10.3 [facility] Comment on above: Performed By: #### L [id number] ####[facility] ([facility])[address] [place] [address] Chloride [Moles/Vol] 99 mmol/L Normal 98-107 [facility] Comment on above: Performed By: #### L [id number] ####[facility] ([facility])[address] [place] [address] CO2 [Moles/Vol] 30 mmol/L Normal 21-[address] [facility] Comment on above: Performed By: #### L [id number] ####[facility] ([facility])[address] [place] [address] Creatinine [Mass/Vol] 0.67 mg/dL Low 0.70-1.30 [facility] Comment on above: Performed By: #### L [id number] ####[facility] ([facility])[address] [place] [address] GLOMERULAR FILTRATION RATE ML/MIN/1.73 SQ M.PREDICTED 97.4 mL/min/1.73m*2 Normal >60.0 [facility] Comment on above: Result Comment: The [facility]???s estimated glomerular filtration rate (eGFR) will no [...] of individuals. Performed By: #### L [id number] ####[facility] ([facility])[address] [place] [address] Glucose [Mass/Vol] 145 mg/dL High 70-100 [facility] Comment on above: Performed By: #### L [id number] ####[facility] ([facility])[address] [place] [address] Potassium [Moles/Vol] 3.1 mmol/L Low 3.5-5.1 [facility] Comment on above: Performed By: #### L [id number] ####[facility] ([facility])[address] [place] [address] Sodium [Moles/Vol] 135 mmol/L Low 136-145 [facility] Comment on above: Performed By: #### L [id number] ####[facility] ([facility])[address] [place] [address] Urea nitrogen [Mass/Vol] 14 mg/dL Normal 7-25 [facility] Comment on above: Performed By: #### L [id number] ####[facility] ([facility])[address] [place] [address] UREA NITROGEN/CREATININE (MASS RATIO) IN SER/PLAS 20.9 Normal [facility] Comment on above: Performed By: #### L [id number] ####[facility] ([facility])[address] [place] [address] CBC WITH AUTO DIFFERENTIALon 10-11-2023 Basophils (Bld) [#/Vol] 0.03 10*3/uL Normal 0.00-0.20 [facility] Comment on above: Performed By: #### L [id number] ####[facility] ([facility])[address] [place] [address] Basophils/100 WBC (Bld) 0.2 % Normal 0.0-1.0 [facility] Comment on above: Performed By: #### L [id number] ####[facility] ([facility])[address] [place] [address] Eosinophils (Bld) [#/Vol] 0.17 10*3/uL Normal 0.00-0.50 [facility] Comment on above: Performed By: #### L [id number] ####[facility] [place] [address] Eosinophils/100 WBC (Bld) 1.3 % Normal 0.0-6.0 [facility] Comment on above: Performed By: #### L [id number] ####[facility] ([facility])[address] [place] [address] Erythrocyte distribution width (RBC) [Ratio] 13.7 % Normal 11.5-15.0 [facility] Comment on above: Performed By: #### L [id number] ####[facility] ([facility])[address] [place] [address] ERYTHROCYTE MEAN CORPUSCULAR HEMOGLOBIN CONCENTRATION (G/DL) BY AUTOMATED 32.6 g/dL Normal 32.0-35.0 [facility] Comment on above: Performed By: #### L [id number] ####[facility] [place] [address] Hematocrit (Bld) [Volume fraction] 30.1 % Low 39.0-55.0 [facility] Comment on above: Performed By: #### L [id number] ####[facility] ([facility])[address] [place] [address] Hemoglobin (Bld) [Mass/Vol] 9.8 g/dL Low 13.0-17.0 [facility] Comment on above: Performed By: #### L [id number] ####[facility] ([facility])[address] [place] [address] Immature granulocytes (Bld) [#/Vol] 0.39 10*3/uL High 0.00-0.20 [facility] Comment on above: Performed By: #### L [id number] ####[facility] ([facility])[address] [place] [address] Immature granulocytes/100 WBC (Bld) 3.0 % High 0.0-1.0 [facility] Comment on above: Performed By: #### L [id number] ####[facility] ([facility])[address] [place] [address] Lymphocytes (Bld) [#/Vol] 1.65 10*3/uL Normal 1.20-4.00 [facility] Comment on above: Performed By: #### L [id number] ####[facility] ([facility])[address] [place] [address] Lymphocytes/100 WBC (Bld) 12.6 % Low 20.0-45.0 [facility] Comment on above: Performed By: #### L [id number] ####[facility] ([facility])[address] [place] [place] [address] MCH (RBC) [Entitic mass] 29.7 pg Normal 27.0-33.0 [facility] Comment on above: Performed By: #### L [id number] ####[facility] ([facility])[address] [place] [address] MCV (RBC) [Entitic vol] 91.2 fL Normal 82.0-98.0 [facility] Comment on above: Performed By: #### L [id number] ####[facility] ([facility])[address] [place] [place] [address] Monocytes (Bld) [#/Vol] 1.07 10*3/uL High 0.10-1.00 [facility] Comment on above: Performed By: #### L [id number] ####[facility] [place] [address] Monocytes/100 WBC (Bld) 8.2 % Normal 5.0-12.0 [facility] Comment on above: Performed By: #### L [id number] ####[facility] ([facility])[address] [place] [address] Neutrophils (Bld) [#/Vol] 9.75 10*3/uL High 1.60-7.60 [facility] Comment on above: Performed By: #### L [id number] ####[facility] ([facility])[address] [address] Neutrophils/100 WBC (Bld) 74.7 % High 40.0-72.0 [facility] Comment on above: Performed By: #### L [id number] ####[facility] [address] NRBC (PER 100 WBCS) BY AUTOMATED COUNT 0.0 % Normal 0 [facility] Comment on above: Performed By: #### L [id number] ####[facility] ([facility])[address] [address] PLATELETS (10*3/UL) IN BLOOD AUTOMATED COUNT 246 10*3/uL Normal 150-400 [facility] Comment on above: Performed By: #### L [id number] ####[facility] [address] RBC (Bld) [#/Vol] 3.30 10*6/uL Low 4.20-5.70 [facility] Comment on above: Performed By: #### L [id number] ####[facility] ([facility])[address] [address] WBC (Bld) [#/Vol] 13.06 10*3/uL High 4.00-10.60 [facility] Comment on above: Performed By: #### L [id number] ####[facility] ([facility])[address] [address] MAGNESIUMon 10-11-2023 Magnesium [Mass/Vol] 1.9 mg/dL Normal 1.9-2.7 [facility] Comment on above: Performed By: #### L [id number] ####[facility] ([employer])[address] [place] [address] POCT GLUCOSE METER UNSOLICIT ED RESULTSon 10-11-2023 Glucose [Mass/Vol] 240 mg/dL High 70-105 [facility] Comment on above: Order Comment: Waive d Testing in the ED is performed under the ED CLIA certificate #[id number]. Result Comment: [email or web address] es Performed By: #### L [id number] ####[facility] ([facility])[address] [place] [address] Glucose [Mass/Vol] 158 mg/dL High 70-105 [facility] Comment on above: Order Comment: Waive d Testing in the ED is performed under the ED CLIA certificate #[id number]. Result Comment: [email or web address] Performed By: #### L [id number] ####[facility] ([facility])[address] [place] [address] Glucose [Mass/Vol] 119 mg/dL High 70-105 [facility] Comment on above: Order Comment: Waive d Testing in the ED is performed under the ED CLIA certificate #[id number]. Result Comment: [email or web address] Performed By: #### L [id number] ####[facility] ([employer])[address] [place] [address] Glucose [Mass/Vol] 312 mg/dL High 70-105 [facility] Comment on above: Order Comment: Waive d Testing in the ED is performed under the ED CLIA certificate #[id number]. Result Comment: [email or web address] Performed By: #### L [id number] ####[facility] ([employer])[address] [place] [address] Glucose [Mass/Vol] 142 mg/dL High 70-105 [facility] Comment on above: Order Comment: Waive d Testing in the ED is performed under the ED CLIA certificate #[id number]. Result Comment: [email or web address] Performed By: #### L [id number] ####[facility] ([employer])[address] [place] [address] Glucose [Mass/Vol] 180 mg/dL High 70-105 [facility] Comment on above: Order Comment: Waive d Testing in the ED is performed under the ED CLIA certificate #[id number]. Result Comment: [email or web address] Performed By: #### L [id number] ####[facility] ([facility])[address] [place] [address] 30on 10-10-2023 30 Normal [facility] APTTon 10-10-2023 ACTIVATED PARTIAL THROMBOPLASTIN TIME IN PPP BY COAGULATION ASSAY 117.1 Seconds High 25.0-35.0 [facility] Comment on above: Result Comment: Clin ical significance of the APTT is questionable in the presence of heparin. Performed By: #### L [id number] ####[facility] ([facility])[address] [place] [address] ACTIVATED PARTIAL THROMBOPLASTIN TIME IN PPP BY COAGULATION ASSAY 135.6 Seconds Critically high 25.0-35.0 [facility] Comment on above: Result Comment: Clin ical significance of the APTT is questionable in the presence of heparin. Performed By: #### L [id number] ####[facility] ([facility])[address] [place] [address] ACTIVATED PARTIAL THROMBOPLASTIN TIME IN PPP BY COAGULATION ASSAY 140.7 Seconds Critically high 25.0-35.0 [facility] Comment on above: Result Comment: Clin ical significance of the APTT is questionable in the presence of heparin. Performed By: #### L [id number] ####[facility] ([facility])[address] [place] [address] CBCon 10-10-2023 Erythrocyte distribution width (RBC) [Ratio] 13.8 % Normal 11.5-15.0 [facility] Comment on above: Performed By: #### L [id number] ####[facility] ([facility])[address] [place] [address] ERYTHROCYTE MEAN CORPUSCULAR HEMOGLOBIN CONCENTRATION (G/DL) BY AUTOMATED 31.9 g/dL Low 32.0-35.0 [facility] Comment on above: Performed By: #### L [id number] ####[facility] [place] [address] Hematocrit (Bld) [Volume fraction] 30.7 % Low 39.0-55.0 [facility] Comment on above: Performed By: #### L [id number] ####[facility] ([facility])[address] [address] Hemoglobin (Bld) [Mass/Vol] 9.8 g/dL Low 13.0-17.0 [facility] Comment on above: Performed By: #### L [id number] ####[facility] ([facility])[address] [address] MCH (RBC) [Entitic mass] 29.3 pg Normal 27.0-33.0 [facility] Comment on above: Performed By: #### L [id number] ####[facility] ([facility])[address] [place] [address] MCV (RBC) [Entitic vol] 91.6 fL Normal 82.0-98.0 [facility] Comment on above: Performed By: #### L [id number] ####[facility] ([facility])[address] [place] [address] PLATELETS (10*3/UL) IN BLOOD AUTOMATED COUNT 220 10*3/uL Normal 150-400 [facility] Comment on above: Performed By: #### L [id number] ####[facility] ([facility])[address] [place] [address] RBC (Bld) [#/Vol] 3.35 10*6/uL Low 4.20-5.70 [facility] Comment on above: Performed By: #### L [id number] ####[facility] ([facility])[address] [place] [address] WBC (Bld) [#/Vol] 12.50 10*3/uL High 4.00-10.60 [facility] Comment on above: Performed By: #### L [id number] ####[facility] ([facility])[address] [place] [address] NURSNOTEon 10-10-2023 NURSNOTE Normal [facility] NURSNOTE Normal [facility] POCT GLUCOSE METER UNSOLICIT ED RESULTSon 10-10-2023 Glucose [Mass/Vol] 148 mg/dL High 70-105 [facility] Comment on above: Order Comment: Waive d Testing in the ED is performed under the ED CLIA certificate #[id number]. Result Comment: [email or web address] Performed By: #### L [id number] ####[facility] ([facility])[address] [place] [address] Glucose [Mass/Vol] 151 mg/dL High 70-105 [facility] Comment on above: Order Comment: Waive d Testing in the ED is performed under the ED CLIA certificate #[id number]. Result Comment: [email or web address] Performed By: #### L [id number] ####[facility] ([facility])[address] [place] [address] 30on 10-09-2023 30 Normal [facility] APTTon 10-09-2023 ACTIVATED PARTIAL THROMBOPLASTIN TIME IN PPP BY COAGULATION ASSAY 113.5 Seconds High 25.0-35.0 [facility] Comment on above: Result Comment: Clin ical significance of the APTT is questionable in the presence of heparin. Performed By: #### L [id number] ####[facility] ([facility])[address] [place] [address] ACTIVATED PARTIAL THROMBOPLASTIN TIME IN PPP BY COAGULATION ASSAY 110.9 Seconds High 25.0-35.0 [facility] Comment on above: Result Comment: Clin ical significance of the APTT is questionable in the presence of heparin. Performed By: #### L [id number] ####[facility] ([facility])[address] [place] [address] BASIC METABOLIC PANELon - Anion gap [Moles/Vol] 14 mmol/L Normal 7-20 [facility] Comment on above: Performed By: #### L [id number] ####[facility] ([facility])[address] [place] [address] Calcium [Mass/Vol] 7.3 mg/dL Low 8.6-10.3 [facility] Comment on above: Performed By: #### L [id number] ####[facility] ([facility])[address] [place] [address] Chloride [Moles/Vol] 98 mmol/L Normal 98-107 [facility] Comment on above: Performed By: #### L [id number] ####[facility] ([facility])[address] [place] [address] CO2 [Moles/Vol] 30 mmol/L Normal 21-[address] [facility] Comment on above: Performed By: #### L [id number] ####[facility] ([facility])[address] [place] [address] Creatinine [Mass/Vol] 0.89 mg/dL Normal 0.70-1.30 [facility] Comment on above: Performed By: #### L [id number] ####[facility] [place] [address] GLOMERULAR FILTRATION RATE ML/MIN/1.73 SQ M.PREDICTED 89.4 mL/min/1.73m*2 Normal >60.0 [facility] Comment on above: Result Comment: [facility]???s estimated glomerular filtration rate (eGFR) will no [...] of individuals. Performed By: #### L [id number] ####[facility] ([facility])[address] [place] [address] Glucose [Mass/Vol] 171 mg/dL High 70-100 [facility] Comment on above: Performed By: #### L [id number] ####[facility] ([facility])[address] [place] [address] Potassium [Moles/Vol] 3.6 mmol/L Normal 3.5-5.1 [facility] Comment on above: Performed By: #### L [id number] ####[facility] ([facility])[address] [place] [address] Sodium [Moles/Vol] 138 mmol/L Normal 136-145 [facility] Comment on above: Performed By: #### L [id number] ####[facility] ([facility])[address] [place] [address] Urea nitrogen [Mass/Vol] 24 mg/dL Normal 7-25 [facility] Comment on above: Performed By: #### L [id number] ####[facility] ([facility])[address] [place] [address] UREA NITROGEN/CREATININE (MASS RATIO) IN SER/PLAS 27.0 Normal [facility] Comment on above: Performed By: #### L [id number] ####[facility] ([facility])[address] [place] [address] CBCon 10-09-2023 Erythrocyte distribution width (RBC) [Ratio] 13.6 % Normal 11.5-15.0 [facility] Comment on above: Performed By: #### L [id number] ####[facility] ([facility])[address] [place] [address] ERYTHROCYTE MEAN CORPUSCULAR HEMOGLOBIN CONCENTRATION (G/DL) BY AUTOMATED 32.1 g/dL Normal 32.0-35.0 [facility] Comment on above: Performed By: #### L [id number] ####[facility] ([facility])[address] [place] [address] Hematocrit (Bld) [Volume fraction] 29.6 % Low 39.0-55.0 [facility] Comment on above: Performed By: #### L [id number] ####[facility] [place] [address] Hemoglobin (Bld) [Mass/Vol] 9.5 g/dL Low 13.0-17.0 [facility] Comment on above: Performed By: #### L [id number] ####[facility] [address] MCH (RBC) [Entitic mass] 29.4 pg Normal 27.0-33.0 [facility] Comment on above: Performed By: #### L [id number] ####[facility] ([facility])[address] [place] [address] MCV (RBC) [Entitic vol] 91.6 fL Normal 82.0-98.0 [facility] Comment on above: Performed By: #### L [id number] ####[facility] ([facility])[address] [place] [address] PLATELETS (10*3/UL) IN BLOOD AUTOMATED COUNT 180 10*3/uL Normal 150-400 [facility] Comment on above: Performed By: #### L [id number] ####[facility] ([facility])[address] [place] [address] RBC (Bld) [#/Vol] 3.23 10*6/uL Low 4.20-5.70 [facility] Comment on above: Performed By: #### L [id number] ####[facility] ([facility])[address] [place] [address] WBC (Bld) [#/Vol] 12.91 10*3/uL High 4.00-10.60 [facility] Comment on above: Performed By: #### L [id number] ####[facility] ([facility])[address] [place] [address] CONSULTon 10-09-2023 CONSULT Normal [facility] CONSULT Normal [facility] CONSULT Normal [facility] CT ABDOMEN PELVIS WO IV CONT RASTon 05-28-2024 CT ABDOMEN PELVIS WO IV CONTRAST Invalid Interpretation Code [facility] Comment on above: Order Comment: With Oral contrast MAGNESIUMon 10-09-2023 Magnesium [Mass/Vol] 2.2 mg/dL Normal 1.9-2.7 [facility] Comment on above: Performed By: #### L [id number] ####[facility] ([facility])[address] [place] [address] PHOSPHORUSon 10-09-2023 Magnesium [Mass/Vol] 2.3 mg/dL Low 2.5-5.0 [facility] Comment on above: Performed By: #### L [id number] ####[facility] ([facility])[address] [place] [address] POCT GLUCOSE METER UNSOLICIT ED RESULTSon 10-09-2023 Glucose [Mass/Vol] 186 mg/dL High 70-105 [facility] Comment on above: Order Comment: Waive d Testing in the ED is performed under the ED CLIA certificate #[id number]. Result Comment: swey er2 Performed By: #### L [id number] ####[facility] ([facility])[address] [place] [address] Glucose [Mass/Vol] 136 mg/dL High 70-105 [facility] Comment on above: Order Comment: Waive d Testing in the ED is performed under the ED CLIA certificate #[id number]. Result Comment: dnuc kol Performed By: #### L [id number] ####[facility] ([facility])[address] [place] [address] Glucose [Mass/Vol] 172 mg/dL High 70-105 [facility] Comment on above: Order Comment: Waive d Testing in the ED is performed under the ED CLIA certificate #[id number]. Result Comment: dnuc kol Performed By: #### L [id number] ####[facility] [place] [address] Glucose [Mass/Vol] 172 mg/dL High 70-105 [facility] Comment on above: Order Comment: Waive d Testing in the ED is performed under the ED CLIA certificate #[id number]. Result Comment: balta tti Performed By: #### L [id number] ####[facility] ([facility])[address] [place] [address] Glucose [Mass/Vol] 169 mg/dL High 70-105 [facility] Comment on above: Order Comment: Waive d Testing in the ED is performed under the ED CLIA certificate #[id number]. Result Comment: isaiase tti Performed By: #### L [id number] ####[facility] ([facility])[address] [place] [address] APTTon 10-08-2023 ACTIVATED PARTIAL THROMBOPLASTIN TIME IN PPP BY COAGULATION ASSAY 65.5 Seconds High 25.0-35.0 [facility] Comment on above: Result Comment: Clin ical significance of the APTT is questionable in the presence of heparin. Performed By: #### L [id number] ####[facility] ([facility])[address] [place] [address] ACTIVATED PARTIAL THROMBOPLASTIN TIME IN PPP BY COAGULATION ASSAY 43.4 Seconds High 25.0-35.0 [facility] Comment on above: Result Comment: Clin ical significance of the APTT is questionable in the presence of heparin. Performed By: #### L [id number] ####[facility] ([facility])[address] [facility] [place] [address] ACTIVATED PARTIAL THROMBOPLASTIN TIME IN PPP BY COAGULATION ASSAY 75.0 Seconds High 25.0-35.0 [facility] Comment on above: Result Comment: Clin ical significance of the APTT is questionable in the presence of heparin. Performed By: #### L [id number] ####[facility] ([facility])[address] [place] [address] BASIC METABOLIC PANELon 05-2 Anion gap [Moles/Vol] 10 mmol/L Normal 7-20 [facility] Comment on above: Performed By: #### L [id number] ####[facility] ([facility])[address] [place] [address] Calcium [Mass/Vol] 7.5 mg/dL Low 8.6-10.3 [facility] Comment on above: Performed By: #### L [id number] ####[facility] ([facility])[address] [place] [address] Chloride [Moles/Vol] 97 mmol/L Low 98-107 [facility] Comment on above: Performed By: #### L [id number] ####[facility] ([facility])[address] [place] [address] CO2 [Moles/Vol] 31 mmol/L Normal 21-[address] [facility] Comment on above: Performed By: #### L [id number] ####[facility] ([facility])[address] [place] [address] Creatinine [Mass/Vol] 0.93 mg/dL Normal 0.70-1.30 [facility] Comment on above: Performed By: #### L [id number] ####[facility] ([facility])[address] [place] [address] GLOMERULAR FILTRATION RATE ML/MIN/1.73 SQ M.PREDICTED 85.6 mL/min/1.73m*2 Normal >60.0 [facility] Comment on above: Result Comment: The [facility]???s estimated glomerular filtration rate (eGFR) will no [...] of individuals. Performed By: #### L [id number] ####[facility] ([facility])[address] [place] [address] Glucose [Mass/Vol] 128 mg/dL High 70-100 [facility] Comment on above: Performed By: #### L [id number] ####[facility] ([facility])[address] [place] [address] Potassium [Moles/Vol] 3.4 mmol/L Low 3.5-5.1 [facility] Comment on above: Performed By: #### L [id number] ####[facility] ([facility])[address] [place] [address] Sodium [Moles/Vol] 135 mmol/L Low 136-145 [facility] Comment on above: Performed By: #### L [id number] ####[facility] ([facility])[address] [place] [address] Urea nitrogen [Mass/Vol] 26 mg/dL High 7-25 [facility] Comment on above: Performed By: #### L [id number] ####[facility] ([facility])[address] [place] [address] UREA NITROGEN/CREATININE (MASS RATIO) IN SER/PLAS 28.0 Normal [facility] Comment on above: Performed By: #### L [id number] ####[facility] ([facility])[address] [place] [address] CBCon 10-08-2023 Erythrocyte distribution width (RBC) [Ratio] 13.3 % Normal 11.5-15.0 [facility] Comment on above: Performed By: #### L [id number] ####[facility] ([facility])[address] [place] [address] ERYTHROCYTE MEAN CORPUSCULAR HEMOGLOBIN CONCENTRATION (G/DL) BY AUTOMATED 33.9 g/dL Normal 32.0-35.0 [facility] Comment on above: Performed By: #### L [id number] ####[facility] ([facility])[address] [place] [address] Hematocrit (Bld) [Volume fraction] 30.1 % Low 39.0-55.0 [facility] Comment on above: Performed By: #### L [id number] ####[facility] ([facility])[address] [place] [address] Hemoglobin (Bld) [Mass/Vol] 10.2 g/dL Low 13.0-17.0 [facility] Comment on above: Performed By: #### L [id number] ####[facility] [place] [address] MCH (RBC) [Entitic mass] 30.0 pg Normal 27.0-33.0 [facility] Comment on above: Performed By: #### L [id number] ####[facility] ([facility])[address] [place] [address] MCV (RBC) [Entitic vol] 88.5 fL Normal 82.0-98.0 [facility] Comment on above: Performed By: #### L [id number] ####[facility] ([facility])[address] [place] [address] PLATELETS (10*3/UL) IN BLOOD AUTOMATED COUNT 161 10*3/uL Normal 150-400 [facility] Comment on above: Performed By: #### L [id number] ####[facility] ([facility])[address] [place] [address] RBC (Bld) [#/Vol] 3.40 10*6/uL Low 4.20-5.70 [facility] Comment on above: Performed By: #### L [id number] ####[facility] ([facility])[address] [place] [address] WBC (Bld) [#/Vol] 15.73 10*3/uL High 4.00-10.60 [facility] Comment on above: Performed By: #### L [id number] ####[facility] ([facility])[address] [place] [address] MAGNESIUMon 10-08-2023 Magnesium [Mass/Vol] 2.4 mg/dL Normal 1.9-2.7 [facility] Comment on above: Performed By: #### L [id number] ####[facility] ([facility])[address] [place] [address] PHOSPHORUSon 10-08-2023 Magnesium [Mass/Vol] 1.7 mg/dL Low 2.5-5.0 [facility] Comment on above: Performed By: #### L [id number] ####[facility] ([facility])[address] [place] [address] POCT GLUCOSE METER UNSOLICIT ED RESULTSon 10-08-2023 Glucose [Mass/Vol] 145 mg/dL High 70-105 [facility] Comment on above: Order Comment: Waive d Testing in the ED is performed under the ED CLIA certificate #[id number]. Result Comment: drew banda Performed By: #### L [id number] ####[facility] ([facility])[address] [place] [address] Glucose [Mass/Vol] 157 mg/dL High 70-105 [facility] Comment on above: Order Comment: Waive d Testing in the ED is performed under the ED CLIA certificate #[id number]. Result Comment: drew [email or web address] Performed By: #### L [id number] ####[facility] ([facility])[address] [place] [address] Glucose [Mass/Vol] 132 mg/dL High 70-105 [facility] Comment on above: Order Comment: Waive d Testing in the ED is performed under the ED CLIA certificate #[id number]. Result Comment: balta tti Performed By: #### L [id number] ####[facility] ([facility])[address] [place] [address] Glucose [Mass/Vol] 200 mg/dL High 70-105 [facility] Comment on above: Order Comment: Waive d Testing in the ED is performed under the ED CLIA certificate #[id number]. Result Comment: balta tti Performed By: #### L [id number] ####[facility] ([facility])[address] [place] [address] APTTon 10-07-2023 ACTIVATED PARTIAL THROMBOPLASTIN TIME IN PPP BY COAGULATION ASSAY 63.7 Seconds High 25.0-35.0 [facility] Comment on above: Result Comment: Clin ical significance of the APTT is questionable in the presence of heparin. Performed By: #### L [id number] ####[facility] ([facility])[address] [place] [address] ACTIVATED PARTIAL THROMBOPLASTIN TIME IN PPP BY COAGULATION ASSAY 49.5 Seconds High 25.0-35.0 [facility] Comment on above: Result Comment: Clin ical significance of the APTT is questionable in the presence of heparin. Performed By: #### L [id number] ####[facility] ([facility])[address] [place] [address] ACTIVATED PARTIAL THROMBOPLASTIN TIME IN PPP BY COAGULATION ASSAY 64.0 Seconds High 25.0-35.0 [facility] Comment on above: Result Comment: Clin ical significance of the APTT is questionable in the presence of heparin. Performed By: #### L [id number] ####[facility] ([facility])[address] [place] [address] BASIC METABOLIC PANELon 05-2 Anion gap [Moles/Vol] 15 mmol/L Normal 7-20 [facility] Comment on above: Performed By: #### L [id number] ####[facility] ([facility])[address] [place] [address] Calcium [Mass/Vol] 7.3 mg/dL Low 8.6-10.3 [facility] Comment on above: Performed By: #### L [id number] ####[facility] ([facility])[address] [place] [address] Chloride [Moles/Vol] 95 mmol/L Low 98-107 [facility] Comment on above: Performed By: #### L [id number] ####[facility] ([facility])[address] [place] [address] CO2 [Moles/Vol] 26 mmol/L Normal 21-[address] [facility] Comment on above: Performed By: #### L [id number] ####[facility] ([facility])[address] [place] [address] Creatinine [Mass/Vol] 1.09 mg/dL Normal 0.70-1.30 [facility] Comment on above: Performed By: #### L [id number] ####[facility] ([facility])[address] [place] [address] GLOMERULAR FILTRATION RATE ML/MIN/1.73 SQ M.PREDICTED 70.8 mL/min/1.73m*2 Normal >60.0 [facility] Comment on above: Result Comment: The [facility]???s estimated glomerular filtration rate (eGFR) will no [...] of individuals. Performed By: #### L [id number] ####[facility] ([facility])[address] [place] [address] Glucose [Mass/Vol] 155 mg/dL High 70-100 [facility] Comment on above: Performed By: #### L [id number] ####[facility] ([facility])[address] [place] [address] Potassium [Moles/Vol] 3.3 mmol/L Low 3.5-5.1 [facility] Comment on above: Performed By: #### L [id number] ####[facility] ([facility])[address] [place] [address] Sodium [Moles/Vol] 133 mmol/L Low 136-145 [facility] Comment on above: Performed By: #### L [id number] ####[facility])[address] [facility] [place] [address] Urea nitrogen [Mass/Vol] 26 mg/dL High 7-25 [facility] Comment on above: Performed By: #### L [id number] ####[facility] [place] [address] UREA NITROGEN/CREATININE (MASS RATIO) IN SER/PLAS 23.9 Normal [facility] Comment on above: Performed By: #### L [id number] ####[facility] ([facility])[address] [place] [address] CBCon 10-07-2023 Erythrocyte distribution width (RBC) [Ratio] 13.0 % Normal 11.5-15.0 [facility] Comment on above: Performed By: #### L [id number] ####[facility] ([facility])[address] [place] [address] ERYTHROCYTE MEAN CORPUSCULAR HEMOGLOBIN CONCENTRATION (G/DL) BY AUTOMATED 34.0 g/dL Normal 32.0-35.0 [facility] Comment on above: Performed By: #### L [id number] ####[facility] ([facility])[address] [place] [address] Hematocrit (Bld) [Volume fraction] 28.2 % Low 39.0-55.0 [facility] Comment on above: Performed By: #### L [id number] ####[facility] ([facility])[address] [place] [address] Hemoglobin (Bld) [Mass/Vol] 9.6 g/dL Low 13.0-17.0 [facility] Comment on above: Performed By: #### L [id number] ####[facility] ([facility])[address] [place] [address] MCH (RBC) [Entitic mass] 30.2 pg Normal 27.0-33.0 [facility] Comment on above: Performed By: #### L [id number] ####[facility] ([facility])[address] [place] [address] MCV (RBC) [Entitic vol] 88.7 fL Normal 82.0-98.0 [facility] Comment on above: Performed By: #### L [id number] ####[facility] ([facility])[address] [place] [address] PLATELETS (10*3/UL) IN BLOOD AUTOMATED COUNT 145 10*3/uL Low 150-400 [facility] Comment on above: Performed By: #### L [id number] ####[facility] ([facility])[address] [place] [address] RBC (Bld) [#/Vol] 3.18 10*6/uL Low 4.20-5.70 [facility] Comment on above: Performed By: #### L [id number] ####[facility] ([facility])[address] [place] [address] WBC (Bld) [#/Vol] 16.79 10*3/uL High 4.00-10.60 [facility] Comment on above: Performed By: #### L [id number] ####[facility] ([facility])[address] [place] [address] CT ABDOMEN PELVIS W IV CONTR Donovan 10-07-2023 CT ABDOMEN PELVIS W IV CONTRAST Invalid Interpretation Code [facility] MAGNESIUMon 10-07-2023 Magnesium [Mass/Vol] 2.3 mg/dL Normal 1.9-2.7 [facility] Comment on above: Performed By: #### L [id number] ####[facility] ([facility])[address] [place] [address] PHOSPHORUSon 10-07-2023 Magnesium [Mass/Vol] 2.1 mg/dL Low 2.5-5.0 [facility] Comment on above: Performed By: #### L [id number] ####[facility] ([facility])[address] [place] [address] POCT GLUCOSE METER UNSOLICIT ED RESULTSon 10-07-2023 Glucose [Mass/Vol] 149 mg/dL High 70-105 [facility] Comment on above: Order Comment: Waive d Testing in the ED is performed under the ED CLIA certificate #[id number]. Result Comment: kbar to Performed By: #### L [id number] ####[facility] ([facility])[address] [place] [address] Glucose [Mass/Vol] 185 mg/dL High 70-105 [facility] Comment on above: Order Comment: Waive d Testing in the ED is performed under the ED CLIA certificate #[id number]. Result Comment: kbar to Performed By: #### L [id number] ####[facility] ([facility])[address] [place] [address] Glucose [Mass/Vol] 183 mg/dL High 70-105 [facility] Comment on above: Order Comment: Waive d Testing in the ED is performed under the ED CLIA certificate #[id number]. Result Comment: balta tti Performed By: #### L [id number] ####[facility] ([facility])[address] [place] [address] TROPONIN Ion 10-07-2023 Troponin I.cardiac [Mass/Vol] 3.05 ng/mL Critically high 0.00-0.04 [facility] Comment on above: Result Comment: M-DC EVIOUS CRITICAL RESULTPrevious result verified on 10/06/2023 1550 on specimen/case [id number] called with component Troponin I for procedure Troponin I with value 5.54 ng/mL. Performed By: #### L [id number] ####[facility] ([facility])[address] [place] [address] APTTon 10-06-2023 ACTIVATED PARTIAL THROMBOPLASTIN TIME IN PPP BY COAGULATION ASSAY 92.3 Seconds High 25.0-35.0 [facility] Comment on above: Order Comment: Check aPTT every 6 hours while on heparin infusion, or per protocol. Result Comment: Clin ical significance of the APTT is questionable in the presence of heparin. Performed By: #### L [id number] ####[facility] ([facility])[address] [place] [address] ACTIVATED PARTIAL THROMBOPLASTIN TIME IN PPP BY COAGULATION ASSAY 110.1 Seconds High 25.0-35.0 [facility] Comment on above: Order Comment: Check aPTT every 6 hours while on heparin infusion, or per protocol. Result Comment: Clin ical significance of the APTT is questionable in the presence of heparin. Performed By: #### L [id number] ####[facility] ([facility])[address] [place] [address] B-TYPE NATRIURETIC PEPTIDEon 10-06-2023 Natriuretic peptide B (Bld) [Mass/Vol] 1339 pg/mL High 0-100 [facility] Comment on above: Performed By: #### L [id number] ####[facility] ([facility])[address] [place] [address] BASIC METABOLIC PANELon 09-12 Anion gap [Moles/Vol] 14 mmol/L Normal 7-20 [facility] Comment on above: Performed By: #### L [id number] ####[facility] ([facility])[address] [place] [address] Calcium [Mass/Vol] 7.0 mg/dL Low 8.6-10.3 [facility] Comment on above: Performed By: #### L [id number] ####[facility] ([facility])[address] [place] [address] Chloride [Moles/Vol] 99 mmol/L Normal 98-107 [facility] Comment on above: Performed By: #### L [id number] ####[facility] ([facility])[address] [place] [address] CO2 [Moles/Vol] 23 mmol/L Normal 21-[address] [facility] Comment on above: Performed By: #### L [id number] ####[facility] ([facility])[address] [place] [address] Creatinine [Mass/Vol] 1.15 mg/dL Normal 0.70-1.30 [facility] Comment on above: Performed By: #### L [id number] ####[facility] ([facility])[address] [place] [address] GLOMERULAR FILTRATION RATE ML/MIN/1.73 SQ M.PREDICTED 66.4 mL/min/1.73m*2 Normal >60.0 [facility] Comment on above: Result Comment: The [facility]???s estimated glomerular filtration rate (eGFR) will no [...] of individuals. Performed By: #### L [id number] ####[facility] ([facility])[address] [place] [address] Glucose [Mass/Vol] 172 mg/dL High 70-100 [facility] Comment on above: Performed By: #### L [id number] ####[facility] ([facility])[address] [place] [address] Potassium [Moles/Vol] 3.9 mmol/L Normal 3.5-5.1 [facility] Comment on above: Performed By: #### L [id number] ####[facility] ([facility])[address] [place] [address] Sodium [Moles/Vol] 132 mmol/L Low 136-145 [facility] Comment on above: Performed By: #### L [id number] ####[facility] ([facility])[address] [place] [address] Urea nitrogen [Mass/Vol] 23 mg/dL Normal 7-25 [facility] Comment on above: Performed By: #### L [id number] ####[facility] ([facility])[address] [place] [address] UREA NITROGEN/CREATININE (MASS RATIO) IN SER/PLAS 20.0 Normal [facility] Comment on above: Performed By: #### L [id number] ####[facility] ([facility])[address] [place] [address] BLOOD CULTUREon 10-06-2023 Bacteria identified Cx Nom (Bld) No growth at 5 days Normal [facility] Comment on above: Order Comment: From a different site than #1. Performed By: #### L [id number] ####[facility] ([facility])[address] [place] [address] CBCon 10-06-2023 Erythrocyte distribution width (RBC) [Ratio] 12.7 % Normal 11.5-15.0 [facility] Comment on above: Performed By: #### L [id number] ####[facility] [place], [place] [address] ERYTHROCYTE MEAN CORPUSCULAR HEMOGLOBIN CONCENTRATION (G/DL) BY AUTOMATED 34.8 g/dL Normal 32.0-35.0 [facility] Comment on above: Performed By: #### L [id number] ####[facility] [place] [address] Hematocrit (Bld) [Volume fraction] 26.4 % Low 39.0-55.0 [facility] Comment on above: Performed By: #### L [id number] ####[facility] [place] [address] Hemoglobin (Bld) [Mass/Vol] 9.2 g/dL Low 13.0-17.0 [facility] Comment on above: Performed By: #### L [id number] ####[facility] ([facility])[address] [place] [address] MCH (RBC) [Entitic mass] 30.4 pg Normal 27.0-33.0 [facility] Comment on above: Performed By: #### L [id number] ####[facility] ([facility])[address] [place] [address] MCV (RBC) [Entitic vol] 87.1 fL Normal 82.0-98.0 [facility] Comment on above: Performed By: #### L [id number] ####[facility] ([facility])[address] [place] [address] PLATELETS (10*3/UL) IN BLOOD AUTOMATED COUNT 154 10*3/uL Normal 150-400 [facility] Comment on above: Performed By: #### L [id number] ####[facility] ([facility] [place] [address] RBC (Bld) [#/Vol] 3.03 10*6/uL Low 4.20-5.70 [facility] Comment on above: Performed By: #### L [id number] ####[facility] ([facility])[address] [place] [address] WBC (Bld) [#/Vol] 20.14 10*3/uL High 4.00-10.60 [facility] Comment on above: Performed By: #### L [id number] ####[facility] ([facility])[address] [place] [address] COMPREHENSIVE METABOLIC PANE [facility] 10-06-2023 Albumin [Mass/Vol] 2.8 g/dL Low 3.5-5.7 [facility] Comment on above: Performed By: #### L [id number] ####[facility] [place] [address] ALP [Catalytic activity/Vol] 65 U/L Normal 34-104 [facility] Comment on above: Performed By: #### L [id number] ####[facility] ([facility] [place] [address] ALT [Catalytic activity/Vol] 61 U/L High 7-52 [facility] Comment on above: Performed By: #### L [id number] ####[facility] ([facility] [place] [address] Anion gap [Moles/Vol] 13 mmol/L Normal 7-20 [facility] Comment on above: Performed By: #### L [id number] ####[facility] ([facility])[address] [place] [address] AST [Catalytic activity/Vol] 69 U/L High 13-39 [facility] Comment on above: Performed By: #### L [id number] ####[facility] ([facility])[address] [place] [address] Bilirubin [Mass/Vol] 0.4 mg/dL Normal 0.3-1.0 [facility] Comment on above: Performed By: #### L [id number] ####[facility] ([facility])[address] [place] [address] Calcium [Mass/Vol] 7.0 mg/dL Low 8.6-10.3 [facility] Comment on above: Performed By: #### L [id number] ####[facility] ([facility])[address] [place] [address] Chloride [Moles/Vol] 102 mmol/L Normal 98-107 [facility] Comment on above: Performed By: #### L [id number] ####[facility] ([facility])[address] [place] [address] CO2 [Moles/Vol] 19 mmol/L Low 21-[address] [facility] Comment on above: Performed By: #### L [id number] ####[facility] ([facility])[address] [place] [address] Creatinine [Mass/Vol] 1.39 mg/dL High 0.70-1.30 [facility] Comment on above: Performed By: #### L [id number] ####[facility] ([facility])[address] [place] [address] GLOMERULAR FILTRATION RATE ML/MIN/1.73 SQ M.PREDICTED 52.9 mL/min/1.73m*2 Low >60.0 [facility] Comment on above: Result Comment: The [facility]???s estimated glomerular filtration rate (eGFR) will no [...] group of individuals. Performed By: #### L [id number] ####[facility] ([facility] [place] [address] Glucose [Mass/Vol] 140 mg/dL High 70-100 [facility] Comment on above: Performed By: #### L [id number] ####[facility] ([facility])[address] [place] [address] Potassium [Moles/Vol] 3.8 mmol/L Normal 3.5-5.1 [facility] Comment on above: Performed By: #### L [id number] ####[facility] ([facility])[address] [place] [address] Protein [Mass/Vol] 5.3 g/dL Low 6.0-8.3 [facility] Comment on above: Performed By: #### L [id number] ####[facility] ([facility])[address] [place] [address] Sodium [Moles/Vol] 130 mmol/L Low 136-145 [facility] Comment on above: Performed By: #### L [id number] ####[facility] ([facility])[address] [place] [address] Urea nitrogen [Mass/Vol] 24 mg/dL Normal 7-25 [facility] Comment on above: Performed By: #### L [id number] ####[facility] ([facility])[address] [place] [address] UREA NITROGEN/CREATININE (MASS RATIO) IN SER/PLAS 17.3 [facility] Comment on above: Performed By: #### L [id number] ####[facility] ([facility])[address] [place] [address] CONSULTon 10-06-2023 CONSULT [facility] MAGNESIUMon 10-06-2023 Magnesium [Mass/Vol] 2.3 mg/dL Normal 1.9-2.7 [facility] Comment on above: Performed By: #### L [id number] ####[facility] ([facility])[address] [place] [address] PHOSPHORUSon 10-06-2023 Magnesium [Mass/Vol] 2.2 mg/dL Low 2.5-5.0 [facility] Comment on above: Performed By: #### L [id number] ####[facility] ([facility])[address] [place] [address] POCT GLUCOSE METER UNSOLICIT ED RESULTSon 10-06-2023 Glucose [Mass/Vol] 177 mg/dL High 70-105 [facility] Comment on above: Order Comment: Waive d Testing in the ED is performed under the ED CLIA certificate #[id number]. Result Comment: balta tti Performed By: #### L [id number] ####[facility] ([facility])[address] [address] Glucose [Mass/Vol] 178 mg/dL High 70-105 [facility] Comment on above: Order Comment: Waive d Testing in the ED is performed under the ED CLIA certificate #[id number]. Result Comment: kbar to Performed By: #### L [id number] ####[facility] ([facility])[address] [place] [address] Glucose [Mass/Vol] 180 mg/dL High 70-105 [facility] Comment on above: Order Comment: Waive d Testing in the ED is performed under the ED CLIA certificate #[id number]. Result Comment: kbar to Performed By: #### L [id number] ####[facility] ([facility])[address] [address] TROPONIN Ion 10-06-2023 Troponin I.cardiac [Mass/Vol] 3.48 ng/mL Critically high 0.00-0.04 [facility] Comment on above: Result Comment: M-DC EVIOUS CRITICAL RESULTPrevious result verified on 10/06/2023 1550 on specimen/case [id number] called with component Troponin I for procedure Troponin I with value 5.54 ng/mL. Performed By: #### L [id number] ####[facility] ([facility])[address] [place] [address] Troponin I.cardiac [Mass/Vol] 4.94 ng/mL Critically high 0.00-0.04 [facility] Comment on above: Result Comment: M-DC EVIOUS CRITICAL RESULTPrevious result verified on 10/06/2023 1550 on specimen/case [id number] called with component Troponin I for procedure Troponin I with value 5.54 ng/mL. Performed By: #### L [id number] ####[facility] ([facility])[address] [place] [address] Troponin I.cardiac [Mass/Vol] 5.54 ng/mL Critically high 0.00-0.04 [facility] Comment on above: Result Comment: M-DC EVIOUS CRITICAL RESULTPrevious result verified on 10/06/2023 0556 on specimen/case [id number] called with component Troponin I for procedure Troponin I with value 8.76 ng/mL. Performed By: #### L [id number] ####[facility] ([facility])[address] [place] [address] Troponin I.cardiac [Mass/Vol] 8.76 ng/mL Critically high 0.00-0.04 [facility] Comment on above: Result Comment: M-DC EVIOUS CRITICAL RESULTPrevious result verified on 10/06/2023 0015 on specimen/case [id number] called with component Troponin I for procedure Troponin I with value 7.99 ng/mL. Performed By: #### L [id number] ####[facility] ([facility])[address] [place] [address] XR ABDOMEN 1 VIEWon 10-06-19 24 XR ABDOMEN 1 VIEW Normal [facility] XR CHEST 1 VIEWon 10-06-2023 XR CHEST 1 VIEW Normal [facility] 30on 10-05-2023 30 Normal [facility] ANTI-XA (HEPARIN LEVEL)on HEPARIN UNFRACTIONATED (U/ML) IN PPP BY CHROMOGENIC METHOD 0.72 IU/mL High 0.3-0.7 [facility] Comment on above: Order Comment: Check anti-Xa level every 6 hours while on heparin infusion, or per protocol. Result Comment: Hermleigh roxaban and Apixaban will interfere with the anti Xa assay used to monitor UFH and LMWH. Performed By: #### L [id number] ####[facility] ([facility])[address] [place] [address] APTTon 10-05-2023 ACTIVATED PARTIAL THROMBOPLASTIN TIME IN PPP BY COAGULATION ASSAY 39.6 Seconds High 25.0-35.0 [facility] Comment on above: Order Comment: Basel ine aPTT before initiating heparin infusion. Result Comment: Clin ical significance of the APTT is questionable in the presence of heparin. Performed By: #### L [id number] ####[facility] ([facility])[address] [place] [address] ACTIVATED PARTIAL THROMBOPLASTIN TIME IN PPP BY COAGULATION ASSAY 92.3 Seconds High 25.0-35.0 [facility] Comment on above: Order Comment: Check aPTT every 6 hours while on heparin infusion, or per protocol. Result Comment: Clin ical significance of the APTT is questionable in the presence of heparin. Performed By: #### L [id number] ####[facility] ([facility])[address] [place] [address] ARTERIAL BLOOD GAS WITH IONI ZED CALCIUMon 10-05-2023 Base excess Calc (Bld) [Moles/Vol] -15.17880 mmol/L Low -2.0-3.0 [facility] Comment on above: Performed By: #### L [id number] ####[facility] [id number] [place] [address] [place] CALCIUM IONIZED (MMOL/L) IN BLOOD 1.09 mmol/L Low 1.15-1.33 [facility] Comment on above: Performed By: #### L [id number] ####[facility] [id number] [place] [address] [place] CO2 (Bld) [Partial pressure] 27 mm[Hg] Low 35-48 [facility] Comment on above: Performed By: #### L [id number] ####[facility] [id number] [facility] [address] [facility] HCO3 (Bld) [Moles/Vol] 10.8 mmol/L Low 21.0-28.0 [facility] Comment on above: Performed By: #### L [id number] ####[facility] [id number] [place] [address] [facility] Oxygen (Bld) [Partial pressure] 81 mm[Hg] Low 83-100 [facility] Comment on above: Performed By: #### L [id number] ####[facility] [id number] [place] [address] [facility] OXYGEN SATURATION (%) IN ARTERIAL BLOOD 99.3 % High 94.0-98.0 [facility] Comment on above: Performed By: #### L [id number] ####[facility] [id number] [place] [address] [facility] pH (Bld) 7.21 [pH] Invalid Interpretation Code 7.35-7.45 [facility] Comment on above: Performed By: #### L [id number] ####[facility] [id number] [place] [address] [facility] SOURCE OF OXYGEN Room Air Normal [facility] Comment on above: Performed By: #### L [id number] ####[facility] [id number] [place] [address] [facility] BILIRUBIN, DIRECTon 10-05-19 Magnesium [Mass/Vol] 0.1 mg/dL Normal 0-0.2 [facility] Comment on above: Performed By: #### L [id number] ####[facility] ([facility])[address] [place] [address] Basophils/100 WBC Manual cnt (Bld)on 10-05-2023 Basophils/100 WBC (Bld) 0.0 % Low 0.2-2.0 [facility] CBCon 10-05-2023 Erythrocyte distribution width (RBC) [Ratio] 12.7 % Normal 11.5-15.0 [facility] Comment on above: Performed By: #### L [id number] ####[facility] (BE[facility]ER)[address] [place] [address] ERYTHROCYTE MEAN CORPUSCULAR HEMOGLOBIN CONCENTRATION (G/DL) BY AUTOMATED 35.0 g/dL Normal 32.0-35.0 [facility] Comment on above: Performed By: #### L [id number] ####[facility] ([facility]ER)[address] [place] [address] Hematocrit (Bld) [Volume fraction] 26.3 % Low 39.0-55.0 [facility] Comment on above: Performed By: #### L [id number] ####[facility] (BE[facility]ER)[address] [place], [place] [address] Hemoglobin (Bld) [Mass/Vol] 9.2 g/dL Low 13.0-17.0 [facility] Comment on above: Performed By: #### L [id number] ####[facility] (BE[facility]ER)[address] [place] [address] MCH (RBC) [Entitic mass] 30.6 pg Normal 27.0-33.0 [facility] Comment on above: Performed By: #### L [id number] ####[facility] (BE[facility]ER)[address] [place], [place] [address] MCV (RBC) [Entitic vol] 87.4 fL Normal 82.0-98.0 [facility] Comment on above: Performed By: #### L [id number] ####[facility] (BE[facility]ER)[address] [place] [address] PLATELETS (10*3/UL) IN BLOOD AUTOMATED COUNT 152 10*3/uL Normal 150-400 [facility] Comment on above: Performed By: #### L [id number] ####[facility] (BE[facility]ER)[address] [place], [place] [address] RBC (Bld) [#/Vol] 3.01 10*6/uL Low 4.20-5.70 [facility] Comment on above: Performed By: #### L [id number] ####[facility] (BE[facility]ER)[address] [place] [address] WBC (Bld) [#/Vol] 20.29 10*3/uL High 4.00-10.60 [facility] Comment on above: Performed By: #### L [id number] ####[facility] (BE[facility]ER)[address] [place] [address] Erythrocyte distribution width (RBC) [Ratio] 12.7 % Normal 11.5-15.0 [facility] Comment on above: Performed By: #### L [id number] ####[facility] [place] [address] ERYTHROCYTE MEAN CORPUSCULAR HEMOGLOBIN CONCENTRATION (G/DL) BY AUTOMATED 33.1 g/dL Normal 32.0-35.0 [facility] Comment on above: Performed By: #### L [id number] ####[facility] (BE[facility]ER)[address] [place] [address] Hematocrit (Bld) [Volume fraction] 27.2 % Low 39.0-55.0 [facility] Comment on above: Performed By: #### L [id number] ####[facility] (BEAKER)[address] [place] [address] Hemoglobin (Bld) [Mass/Vol] 9.0 g/dL Low 13.0-17.0 [facility] Comment on above: Performed By: #### L [id number] ####[facility] (BEAKER)[address] [place] [address] MCH (RBC) [Entitic mass] 30.9 pg Normal 27.0-33.0 [facility] Comment on above: Performed By: #### L [id number] ####[facility] (BEAKER)[address] [place] [address] MCV (RBC) [Entitic vol] 93.5 fL Normal 82.0-98.0 [facility] Comment on above: Performed By: #### L [id number] ####[facility] (BEAKER)[address] [place] [address] PLATELETS (10*3/UL) IN BLOOD AUTOMATED COUNT 170 10*3/uL Normal 150-400 [facility] Comment on above: Performed By: #### L [id number] ####[facility] ([facility])[address] [place] [address] RBC (Bld) [#/Vol] 2.91 10*6/uL Low 4.20-5.70 [facility] Comment on above: Performed By: #### L [id number] ####[facility] ([facility])[address] [place] [address] WBC (Bld) [#/Vol] 28.70 10*3/uL High 4.00-10.60 [facility] Comment on above: Performed By: #### L [id number] ####[facility] ([facility])[address] [place] [address] COMPREHENSIVE METABOLIC PANE Gerber 10-05-2023 Albumin [Mass/Vol] 2.8 g/dL Low 3.5-5.7 [facility] Comment on above: Performed By: #### L [id number] ####[facility] ([facility])[address] [place] [address] ALP [Catalytic activity/Vol] 59 U/L Normal 34-104 [facility] Comment on above: Performed By: #### L [id number] ####[facility] [place] [address] ALT [Catalytic activity/Vol] 64 U/L High 7-52 [facility] Comment on above: Performed By: #### L [id number] ####[facility] [place] [address] Anion gap [Moles/Vol] 13 mmol/L Normal 7-20 [facility] Comment on above: Performed By: #### L [id number] ####[facility] [place] [address] AST [Catalytic activity/Vol] 74 U/L High 13-39 [facility] Comment on above: Performed By: #### L [id number] ####[facility] ([facility]ER)[address] [place] [address] Bilirubin [Mass/Vol] 0.3 mg/dL Normal 0.3-1.0 [facility] Comment on above: Performed By: #### L [id number] ####[facility] ([facility]ER)[address] [place] [address] Calcium [Mass/Vol] 7.0 mg/dL Low 8.6-10.3 [facility] Comment on above: Performed By: #### L [id number] ####[facility] (BE[facility]ER)[address] [place] [address] Chloride [Moles/Vol] 103 mmol/L Normal 98-107 [facility] Comment on above: Performed By: #### L [id number] ####[facility] (BE[facility]ER)[address] [place] [address] CO2 [Moles/Vol] 18 mmol/L Low 21-[address] [facility] Comment on above: Performed By: #### L [id number] ####[facility] (BE[facility]ER)[address] [place] [address] Creatinine [Mass/Vol] 1.56 mg/dL High 0.70-1.30 [facility] Comment on above: Performed By: #### L [id number] ####[facility] (BE[facility]ER)[address] [place] [address] GLOMERULAR FILTRATION RATE ML/MIN/1.73 SQ M.PREDICTED 46.0 mL/min/1.73m*2 Low >60.0 [facility] Comment on above: Result Comment: [facility]???s estimated glomerular filtration rate (eGFR) will no [...] group of individuals. Performed By: #### L [id number] ####[facility] ([facility])[address] [place] [address] Glucose [Mass/Vol] 205 mg/dL High 70-100 [facility] Comment on above: Performed By: #### L [id number] ####[facility] ([facility])[address] [place] [address] Potassium [Moles/Vol] 4.2 mmol/L Normal 3.5-5.1 [facility] Comment on above: Performed By: #### L [id number] ####[facility] ([facility])[address] [place] [address] Protein [Mass/Vol] 5.2 g/dL Low 6.0-8.3 [facility] Comment on above: Performed By: #### L [id number] ####[facility] ([facility])[address] [place] [address] Sodium [Moles/Vol] 130 mmol/L Low 136-145 [facility] Comment on above: Performed By: #### L [id number] ####[facility] ([facility])[address] [place] [address] Urea nitrogen [Mass/Vol] 25 mg/dL Normal 7-25 [facility] Comment on above: Performed By: #### L [id number] ####[facility] ([facility])[address] [place] [address] UREA NITROGEN/CREATININE (MASS RATIO) IN SER/PLAS 16.0 Normal [facility] Comment on above: Performed By: #### L [id number] ####[facility] ([facility])[address] [place] [address] Albumin [Mass/Vol] 3.0 g/dL Low 3.5-5.7 [facility] Comment on above: Performed By: #### L [id number] ####[facility] (BE[facility]ER)[address] [place] [address] ALP [Catalytic activity/Vol] 66 U/L Normal 34-104 [facility] Comment on above: Performed By: #### L [id number] ####[facility] ([facility])[address] [place] [address] ALT [Catalytic activity/Vol] 72 U/L High 7-52 [facility] Comment on above: Performed By: #### L [id number] ####[facility] ([facility])[address] [place] [address] Anion gap [Moles/Vol] 18 mmol/L Normal 7-20 [facility] Comment on above: Performed By: #### L [id number] ####[facility] ([facility])[address] [place] [address] AST [Catalytic activity/Vol] 113 U/L High 13-39 [facility] Comment on above: Performed By: #### L [id number] ####[facility] ([facility])[address] [place] [address] Bilirubin [Mass/Vol] 0.4 mg/dL Normal 0.3-1.0 [facility] Comment on above: Performed By: #### L [id number] ####[facility] ([facility])[address] [place] [address] Calcium [Mass/Vol] 6.9 mg/dL Low 8.6-10.3 [facility] Comment on above: Performed By: #### L [id number] ####[facility] ([facility])[address] [place] [address] Chloride [Moles/Vol] 103 mmol/L Normal 98-107 [facility] Comment on above: Performed By: #### L [id number] ####[facility] ([facility])[address] [place] [address] CO2 [Moles/Vol] 11 mmol/L Invalid Interpretation Code 21-31 [facility] Comment on above: Performed By: #### L [id number] ####[facility] ([facility])[address] [place] [address] Creatinine [Mass/Vol] 1.84 mg/dL High 0.70-1.30 [facility] Comment on above: Performed By: #### L [id number] ####[facility] ([facility])[address] [place] [address] GLOMERULAR FILTRATION RATE ML/MIN/1.73 SQ M.PREDICTED 37.8 mL/min/1.73m*2 Low >60.0 [facility] Comment on above: Result Comment: [facility]???s estimated glomerular filtration rate (eGFR) will no [...] group of individuals. Performed By: #### L [id number] ####[facility] ([facility])[address] [place] [address] Glucose [Mass/Vol] 470 mg/dL Critically high 70-100 [facility] Comment on above: Performed By: #### L [id number] ####[facility] ([facility])[address] [place] [address] Potassium [Moles/Vol] 4.4 mmol/L Normal 3.5-5.1 [facility] Comment on above: Performed By: #### L [id number] ####[facility] ([facility])[address] [place] [address] Protein [Mass/Vol] 5.2 g/dL Low 6.0-8.3 [facility] Comment on above: Performed By: #### L [id number] ####[facility] [place] [address] Sodium [Moles/Vol] 128 mmol/L Low 136-145 [facility] Comment on above: Performed By: #### L [id number] ####[facility] (BEAKER)[address] [place] [address] Urea nitrogen [Mass/Vol] 23 mg/dL Normal 7-25 [facility] Comment on above: Performed By: #### L [id number] ####[facility] ([facility]ER)[address] [place] [address] UREA NITROGEN/CREATININE (MASS RATIO) IN SER/PLAS 12.5 Normal [facility] Comment on above: Performed By: #### L [id number] ####[facility] (BEAKER)[address] [place] [address] CORTISOLon 10-05-2023 CORTISOL (UG/DL) IN SER/PLAS 25.3 ug/dL High 0-9 [facility] Comment on above: Performed By: #### L [id number] ####[facility] (BEAKER)[address] [place] [address] Eosinophils/100 WBC Manual c nt (Bld)on 10-05-2023 Eosinophils/100 WBC (Bld) 0.0 % Low 0.9-7.0 [facility] Erythrocyte distribution wid th Auto (RBC) [Ratio]on 10-05-2023 Erythrocyte distribution width (RBC) [Ratio] 12.8 % 11.0-15.0 [facility] Estimated glomerular filtrat ion rate (GFR) non- Americanon 10-05-2023 GFR/1.73 sq M.predicted among non-blacks MDRD (S/P/Bld) [Vol rate/Area] 32 mL/min/{1.73_m2} Low >=60 [facility] Globulin Calc (S) [Mass/Vol] on 10-05-2023 Globulin (S) [Mass/Vol] 3.3 g/dL [facility] HPon 10-05-2023 HP Normal [facility] Hematocrit Auto (Bld) [Volum e fraction]on 10-05-2023 Hematocrit (Bld) [Volume fraction] 28.8 % Low 42.0-54.0 [facility] Hemoglobin [Mass/volume] in Bloodon 10-05-2023 Hemoglobin (Bld) [Mass/Vol] 9.0 g/dL Low 14.0-18.0 [facility] LACTIC ACID WITH 4 HOUR REFL EXon 10-05-2023 LACTATE (MMOL/L) IN SER/PLAS 1.6 mmol/L Normal 0.5-2.2 [facility] Comment on above: Performed By: #### L [id number] ####[facility] ([facility])[address] [place] [address] LACTATE (MMOL/L) IN SER/PLAS 4.0 mmol/L Critically high 0.5-2.2 [facility] Comment on above: Result Comment: Prev ious result verified on 10/05/2023 1412 on specimen/case [id number] called with component Lactate blood venous for procedure Lactic acid, venous, whole blood with value 7.7 mmol/L. Performed By: #### L [id number] ####[facility] ([facility])[address] [place] [address] LACTATE (MMOL/L) IN SER/PLAS 7.7 mmol/L Critically high 0.5-2.2 [facility] Comment on above: Performed By: #### L [id number] ####[facility] ([facility])[address] [place] [address] Lab Reportson 10-05-2023 Lab Reports [id number] Normal [facility] - Chemistry and C hemistry - challengeon 10-05-2023 HCO3 (Bld) [Moles/Vol] 9.1 mmol/L Low 22.0-26.0 [facility] Natriuretic peptide B (Bld) [Mass/Vol] 44643.0 pg/mL High <=1800.0 [facility] Comment on above: RESULTS CALLED TO [Zulema MURRAY/RN]@BY Kaitlin Merchant [id number] Albumin [Mass/Vol] 2.2 g/dL Low 3.4-5.0 [facility] ALP [Catalytic activity/Vol] 58 U/L 46-116 [facility] ALT [Catalytic activity/Vol] U/L Low 16-63 [facility] AST [Catalytic activity/Vol] 18 U/L 15-37 [facility] Bilirubin [Mass/Vol] 0.4 mg/dL 0.2-1.0 [facility] Calcium [Mass/Vol] 7.9 mg/dL Low 8.5-10.1 [facility] Chloride [Moles/Vol] 101 mmol/L 98-107 [facility] CO2 [Moles/Vol] 17.1 mmol/L Low 21.0-32.0 [facility] Creatinine [Mass/Vol] 2.02 mg/dL High 0.70-1.30 [facility] GFR/1.73 sq M.predicted MDRD (S/P/Bld) [Vol rate/Area] 39 mL/min/{1.73_m2} Low >=60 [facility] Glucose [Mass/Vol] 290 mg/dL High 74-106 [facility] Lactate [Moles/Vol] 7.3 mmol/L High 0.4-2.0 [facility] Comment on above: RESULTS CALLED TO STEVE GROSS RN @BY Beatriz Rothman at 0527 Magnesium [Mass/Vol] 1.4 mg/dL Low 1.8-2.4 [facility] Potassium [Moles/Vol] 3.9 mmol/L 3.5-5.1 [facility] Protein [Mass/Vol] 5.5 g/dL Low 6.4-8.2 [facility] Sodium [Moles/Vol] 131 mmol/L Low 136-145 [facility] Urea nitrogen [Mass/Vol] 19.0 mg/dL High 7.0-18.0 [facility] Urea nitrogen/Creatinine [Mass ratio] 9.4 mg/mg [facility] Laboratory - Hematology and Cell countson 10-05-2023 Band form neutrophils/100 WBC (Bld) 9.0 % High 0-5 [facility] Lymphocytes/100 WBC (Bld) 4.0 % Low 20.5-60.0 [facility] Monocytes/100 WBC (Bld) 3.0 % 1.7-12.0 [facility] Leukocytes [#/volume] correc seth for nucleated erythrocytes in Blood by Automated counon 10-05-2023 WBC corrected for nucl RBC Auto (Bld) [#/Vol] 25.1 10 3/uL High 4.0-11.0 [facility] MAGNESIUMon 10-05-2023 Magnesium [Mass/Vol] 1.3 mg/dL Low 1.9-2.7 [facility] Comment on above: Performed By: #### L [id number] ####[facility] (BEAKER)[address] [place] [address] MCH Auto (RBC) [Entitic mass ]on 10-05-2023 MCH (RBC) [Entitic mass] 30.6 pg 25.9-34.0 [facility] MCHC Auto (RBC) [Mass/Vol]on 10-05-2023 MCHC (RBC) [Mass/Vol] 31.3 g/dL 29.9-35.2 [facility] MCV Auto (RBC) [Entitic vol] on 10-05-2023 MCV (RBC) [Entitic vol] 98.0 fL High 80.0-94.0 [facility] Myelocytes/100 WBC Manual cn t (Bld)on 10-05-2023 Myelocytes/100 WBC (Bld) 2.0 % [facility] No Panel Informationon 10-04 Lonnie Test Positive POSITIVE [facility] Arterial Blood Base Excess -21.5 mmol/L Low <2.0-2.0 [facility] Arterial Blood Oxygen Saturation 97.7 % [facility] Arterial Blood Partial Pressure CO2 33.0 mm[Hg] Low 35.0-45.0 [facility] Arterial Blood Partial Pressure O2 106.0 mm[Hg] High 80.0-100.0 [facility] Arterial Blood pH 7.047 Low 7.350-7.450 [facility] Comment on above: RESULTS CALLED TO [Efra LANDA/YOCASTA]@BY Kaitlin Merchant [id number] Blood Gas Liter Flow 3 [facility] Blood Gas Sample Site ART. LINE [facility] Oxygen Delivery Device NASAL CANNULA [facility] Venous Blood Partial Pressure CO2 35.5 mm[Hg] Low 40.0-52.0 [facility] Venous Blood pH 7.044 Low 7.330-7.430 [facility] Absolute Basophils (Manual) 0.00 10 3/uL 0.00-0.10 [facility] Band Neutrophils # (Manual) 2.3 10 3/uL High 0.0-0.3 [facility] C-Reactive Protein, Quantitative 20.88 mg/dL High <=0.50 [facility] Eosinophils # (Manual) 0.00 10 3/uL 0.00-0.70 [facility] Lymphocytes # (Manual) 1.00 10 3/uL Low 1.20-3.80 [facility] Monocytes # (Manual) 0.75 10 3/uL 0.30-0.80 [facility] Myelocytes # (Manual) 0.50 [facility] Reactive Lymphocytes 0.00 [facility] Segmented Neutrophils # (Manual) 20.83 10 3/uL High 1.4-6.5 [facility] Troponin I High Sensitivity 993.4 pg/mL High 4.0-76.1 [facility] Comment on above: RESULTS CALLED TO [Zulema MURRAY/YOCASTA]@BY Kaitlin Merchant [id number] POINTS HAVE BEEN ESTABLISHED BASED ON THE FOURTHUNIVERSAL DEFINITION OF MYOCARDIAL INFARCTION. THE UPPERREFERENCE LIMIT (URL) OF TROPONIN, DEFINED THE 99THPERCENTILE OF cTnI DISTRIBUTION IN A REFERENCE POPULATION,HAS BEEN CONFIRMED THE DECISION THRESHOLD FOR MIDIAGNOSIS.99TH PERCENTILE = 76.2 PG/MLNOTE: HIGH-SENSITIVITY TROPONIN ASSAY IS NOT INTENDED TO BEUSED IN ISOLATION BUT SHOULD BE INTERPRETED IN CONJUNCTIONWITH OTHER DIAGNOSTIC AND CLINICAL INFORMATION. PHOSPHORUSon 10-05-2023 Magnesium [Mass/Vol] 3.8 mg/dL Normal 2.5-5.0 [facility] Comment on above: Performed By: #### L [id number] ####[facility] ([facility]AKER)[address] [place] [address] POCT GLUCOSE METER UNSOLICIT ED RESULTSon 10-05-2023 Glucose [Mass/Vol] 204 mg/dL High 70-105 [facility] Comment on above: Order Comment: Waive d Testing in the ED is performed under the ED CLIA certificate #[id number]. Result Comment: roger [email or web address] Performed By: #### L [id number] ####[facility] ([facility])[address] [place] [address] Glucose [Mass/Vol] 378 mg/dL High 70-105 [facility] Comment on above: Order Comment: Waive d Testing in the ED is performed under the ED CLIA certificate #[id number]. Result Comment: [email or web address] Performed By: #### L [id number] ####[facility] ([facility])[address] [place] [address] PROTIME-INRon 10-05-2023 INR IN PPP BY COAGULATION ASSAY 2.15 High 0.90-1.10 [facility] Comment on above: Result Comment: ACCC P RECOMMENDED INR FOR WARFARIN THERAPY CONDITION INRPROPHYLAXIS OF VENOUS THROMBOSIS 2-3(HIGH-RISK SURGERY)TREATMENT OF VENOUS THROMBOSIS 2-3TREATMENT OF PULMONARY EMBOLISM 2-3PREVENTION OF SYSTEMIC EMBOLISM: 2-3 ACUTE MYOCARDIAL INFARCTION TISSUE HEART VALVES VALVULAR HEART DISEASE ATRIAL FIBRILLATION RECURRENT SYSTEMIC EMBOLISMMECHANICAL HEART VALVE 2.5-3.5 FROM: ORAL ANTICOAGULANTS. MECHANISM OF ACTION, CLINICAL EFFECTIVENESS, AND OPTIMAL THERAPEUTIC RANGE. CHEST 1995;108:231S-246S. Performed By: #### L [id number] ####[facility] ([facility])[address] [place] [address] PROTHROMBIN TIME (PT) IN PPP BY COAGULATION ASSAY 23.6 Seconds High 12.3-14.8 [facility] Comment on above: Performed By: #### L [id number] ####[facility] (BEAKER)[address] [place] [address] Platelet mean volume Auto (B ld) [Entitic vol]on 10-05-2023 Platelet mean volume (Bld) [Entitic vol] 10.1 fL 9.5-13.5 [facility] Platelets Auto (Bld) [#/Vol] on 10-05-2023 Platelets (Bld) [#/Vol] 175 10 3/uL 150-450 [facility] RBC Auto (Bld) [#/Vol]on RBC (Bld) [#/Vol] 2.94 10 6/uL Low 4.70-6.10 [facility] Segmented neutrophils/100 WB C Manual cnt (Bld)on 10-05-2023 Segmented neutrophils/100 WBC (Bld) 83.0 % [facility] Serum or plasma albumin/glob ulin mass ratioon 10-05-2023 Albumin/Globulin [Mass ratio] 0.7 {ratio} [facility] Serum or plasma anion gap de terminationon 10-05-2023 Anion gap [Moles/Vol] 16.8 mmol/L [facility] TROPONIN Ion 10-05-2023 Troponin I.cardiac [Mass/Vol] 7.99 ng/mL Critically high 0.00-0.04 [facility] Comment on above: Result Comment: M-DC EVIOUS CRITICAL RESULTPrevious result verified on 10/05/20235 on specimen/case [id number] called with component Troponin I for procedure Troponin I with value 4.24 ng/mL. Performed By: #### L [id number] ####[facility] (BEAKER)[address] [place] [address] Troponin I.cardiac [Mass/Vol] 4.24 ng/mL Critically high 0.00-0.04 [facility] Comment on above: Result Comment: M-TR OPONIN INITIAL CRITICAL HIGH; RESPUN AND RETESTED Performed By: #### L [id number] ####[facility] ([facility])[address] [place] [address] TSH3 REFLEX TO FT4on 024 THYROTROPIN (MIU/L) IN SER/PLAS BY DETECTION LIMIT <= 0.05 MIU/L 1.36 mIU/L Normal 0.34-5.60 [facility] Comment on above: Performed By: #### L [id number] ####[facility] ([facility])[address] [place] [address] URINALYSISon 10-05-2023 BILIRUBIN, TOTAL PRESENCE IN URINE Negative Normal Negative [facility] Comment on above: Performed By: #### L [id number] ####[facility] ([facility])[address] [place] [address] Clarity (U) Cloudy Abnormal Clear [facility] Comment on above: Performed By: #### L [id number] ####[facility] ([facility])[address] [place] [address] Color (U) Yellow Normal Yellow [facility] Comment on above: Performed By: #### L [id number] ####[facility] ([facility])[address] [place] [address] Glucose (U) [Mass/Vol] mg/dL Abnormal Negative [facility] Comment on above: Performed By: #### L [id number] ####[facility] ([facility])[address] [place] [address] HEMOGLOBIN PRESENCE IN URINE Large Abnormal Negative [facility] Comment on above: Performed By: #### L [id number] ####[facility] ([facility])[address] [place] [address] Ketones Ql (U) Negative Normal Negative [facility] Comment on above: Performed By: #### L [id number] ####[facility] ([facility])[address] [place] [address] LEUKOCYTE ESTERASE PRESENCE IN URINE BY TEST STRIP Small Abnormal Negative [facility] Comment on above: Performed By: #### L [id number] ####[facility] ([facility])[address] [place] [address] NITRITE PRESENCE IN URINE Negative Normal Negative [facility] Comment on above: Performed By: #### L [id number] ####[facility] ([facility])[address] [place] [address] pH (U) 5.0 [pH] Normal 5.0-8.0 [facility] Comment on above: Performed By: #### L [id number] ####[facility] ([facility])[address] [place] [address] Protein (U) [Mass/Vol] 30 mg/dL Abnormal Negative [facility] Comment on above: Performed By: #### L [id number] ####[facility] ([facility])[address] [place] [address] Specific gravity (U) [Rel density] 1.018 Normal 1.015-1.020 [facility] Comment on above: Performed By: #### L [id number] ####[facility] ([facility])[address] [place] [address] URINALYSIS MICROSCOPICon CASTS IN URINE Present Abnormal None Seen [facility] Comment on above: Performed By: #### L [id number] ####[facility] ([facility])[address] [place] [address] CRYSTALS IN URINE Normal Univers [facility] Comment on above: Performed By: #### L [id number] ####[facility] ([facility])[address] [place] [address] GRANULAR CASTS (#/LPF) IN URINE 11 LPF High <1 [facility] Comment on above: Performed By: #### L [id number] ####[facility] ([facility])[address] [place] [address] MUCUS (#/HPF) IN URINE SEDIMENT Few Normal None Seen, Occasional, Few [facility] Comment on above: Performed By: #### L [id number] ####[facility] (BEAKER)[address] [place] [address] RBC (#/HPF) IN URINE SEDIMENT 3-5 Abnormal None Seen [facility] Comment on above: Performed By: #### L [id number] ####[facility] (BEAKER)[address] [place] [address] SQUAMOUS EPITHELIAL CELLS (#/HPF) IN URINE SEDIMENT None Seen Normal None Seen, Occasional [facility] Comment on above: Performed By: #### L [id number] ####[facility] ([facility]AKER)[address] [place] [address] WBC (LEUKOCYTE) (#/HPF) IN URINE SEDIMENT 11-20 Abnormal None Seen [facility] Comment on above: Performed By: #### L [id number] ####[facility] (BEAKER)[address] [place] [address] YEAST, BUDDING (#/HPF) IN URINE Occasional Abnormal None Seen [facility] Comment on above: Performed By: #### L [id number] ####[facility] (BEAKER)[address] [place] [address] Basophils Auto (Bld) [#/Vol] on 10-04-2023 Basophils (Bld) [#/Vol] 0.0 10 3/uL 0.0-0.1 [facility] Basophils/100 WBC Auto (Bld) on 10-04-2023 Basophils/100 WBC (Bld) 0.1 % Low 0.2-2.0 [facility] Eosinophils/100 WBC Auto (Bl d)on 10-04-2023 Eosinophils/100 WBC (Bld) 0.0 % Low 0.9-7.0 [facility] Erythrocyte distribution wid th Auto (RBC) [Ratio]on 10-04-2023 Erythrocyte distribution width (RBC) [Ratio] 12.2 % 11.0-15.0 [facility] Estimated glomerular filtrat ion rate (GFR) non- Americanon 10-04-2023 GFR/1.73 sq M.predicted among non-blacks MDRD (S/P/Bld) [Vol rate/Area] mL/min/{1.73_m2} >=60 [facility] Hematocrit Auto (Bld) [Volum e fraction]on 10-04-2023 Hematocrit (Bld) [Volume fraction] 32.9 % Low 42.0-54.0 [facility] Hemoglobin [Mass/volume] in Bloodon 10-04-2023 Hemoglobin (Bld) [Mass/Vol] 10.7 g/dL Low 14.0-18.0 [facility] Laboratory - Chemistry and C hemistry - challengeon 10-04-2023 Lactate [Moles/Vol] 4.4 mmol/L High 0.4-2.0 [facility] Comment on above: RESULTS CALLED TO JULIANO VALDEZ RN @BY Beatriz Rothman at 2037 Bilirubin Ql (U) Negative NEGATIVE [facility] Glucose (U) [Mass/Vol] 100 mg/dL Abnormal NEGATIVE Fi [facility] Ketones Ql (U) Negative NEGATIVE [facility] pH (U) 5.5 [pH] 5.0-9.0 [facility] Specific gravity (U) [Rel density] <=1.005 Abnormal 1.005-1.025 [facility] Urobilinogen Qn (U) 0.2 {Wilson'U}/dL 0.2-1.0 [facility] Calcium [Mass/Vol] 9.1 mg/dL 8.5-10.1 [facility] Chloride [Moles/Vol] 96 mmol/L Low 98-107 [facility] CO2 [Moles/Vol] 23.3 mmol/L 21.0-32.0 [facility] Creatinine [Mass/Vol] 1.14 mg/dL 0.70-1.30 [facility] GFR/1.73 sq M.predicted MDRD (S/P/Bld) [Vol rate/Area] mL/min/{1.73_m2} >=60 [facility] Glucose [Mass/Vol] 255 mg/dL High 74-106 [facility] Natriuretic peptide B (Bld) [Mass/Vol] 1213.0 pg/mL <=1800.0 [facility] Potassium [Moles/Vol] 4.4 mmol/L 3.5-5.1 [facility] Sodium [Moles/Vol] 129 mmol/L Low 136-145 [facility] Urea nitrogen [Mass/Vol] 14.0 mg/dL 7.0-18.0 [facility] Urea nitrogen/Creatinine [Mass ratio] 12.3 mg/mg [facility] Laboratory - Hematology and Cell countson 10-04-2023 Immature granulocytes/100 WBC (Bld) 1.3 % High 0.0-0.5 [facility] Laboratory - Microbiology an d Antimicrobial susceptibilityOrdered By: Allen Grey on 10-04-2023 Bacteria identified Cx Nom (U) [facility] Laboratory - Microbiology an d Antimicrobial susceptibilityon 10-04-2023 SARS-CoV-2 (COVID-19) RNA RAYMON+probe Ql (Unsp spec) Negative NEGATIVE [facility] Comment on above: This test has not be en FDA cleared or approved, but has beenauthorized by the FDA under an Emergency Use Authorization(EUA) for use by authorized laboratories certified underIA that meet the requirements to perform moderate or highcomplexity testing. This test has been authorized only forthe detection of proteins from SARS-CoV-2, not for any otherviruses or pathogens. The emergency use of this test isauthorized for the duration of the declaration thatcircumstances exist justifying the authorization ofemergency use of in vitro diagnostic tests for detectionand/or diagnosis of Covid-19 under section 564(b)(1) of theAct, 21 U.S.C. 360bbb-3(b)(1), unless the declaration isterminated or authorization is revoked sooner. Laboratory - Specimen inform ationon 10-04-2023 Appearance (U) CLEAR CLEAR [facility] Color (U) YELLOW YELLOW [facility] Laboratory - Urinalysison Leukocyte esterase Test strip Ql (U) Negative NEGATIVE [facility] Mucus Ql (Urine sed) NONE SEEN NONE SEEN [facility] Nitrite Ql (U) Negative NEGATIVE [facility] Protein Ql (U) 30 mg/dL Abnormal NEG/TRACE [facility] Leukocytes [#/volume] correc seth for nucleated erythrocytes in Blood by Automated counon 10-04-2023 WBC corrected for nucl RBC Auto (Bld) [#/Vol] 16.6 10 3/uL High 4.0-11.0 [facility] Lymphocytes Auto (Bld) [#/Vo l]on 10-04-2023 Lymphocytes (Bld) [#/Vol] 0.9 10 3/uL Low 1.2-3.8 [facility] Lymphocytes/100 WBC Auto (Bl d)on 10-04-2023 Lymphocytes/100 WBC (Bld) 5.2 % Low 20.5-60.0 [facility] MCH Auto (RBC) [Entitic mass ]on 10-04-2023 MCH (RBC) [Entitic mass] 30.3 pg 25.9-34.0 [facility] MCHC Auto (RBC) [Mass/Vol]on 10-04-2023 MCHC (RBC) [Mass/Vol] 32.5 g/dL 29.9-35.2 [facility] MCV Auto (RBC) [Entitic vol] on 10-04-2023 MCV (RBC) [Entitic vol] 93.2 fL 80.0-94.0 [facility] Monocytes Auto (Bld) [#/Vol] on 10-04-2023 Monocytes (Bld) [#/Vol] 1.4 10 3/uL High 0.3-0.8 [facility] Monocytes/100 WBC Auto (Bld) on 10-04-2023 Monocytes/100 WBC (Bld) 8.3 % 1.7-12.0 [facility] Neutrophils Auto (Bld) [#/Vo l]on 10-04-2023 Neutrophils (Bld) [#/Vol] 14.1 10 3/uL High 1.4-6.5 [facility] Neutrophils/100 WBC Auto (Bl d)on 10-04-2023 Neutrophils/100 WBC (Bld) 85.1 % High 43.0-75.0 [facility] No Panel Informationon 10-03 Urine Bacteria MODERATE #/HPF Abnormal NONE SEEN [facility] Urine Culture Reflexed YES Fi [facility] Urine Occult Blood SMALL Abnormal NEGATIVE [facility] Urine Other Casts NONE SEEN #/LPF NONE SEEN Fi [facility] Urine Other Crystals None Seen #/HPF None Seen [facility] Urine RBC 5-10 #/HPF Abnormal 0-2 [facility] Urine Squamous Epithelial Cells MODERATE #/LPF Abnormal NONE/RARE [facility] Urine WBC 5-10 #/HPF Abnormal NONE SEEN [facility] Bedside Influenza Type A Antigen Negative [facility] Comment on above: Negative for Flu A p rotein antigen. Infection due to Flu Acannot be ruled out. Flu A antigen in the sample may bebelow the detection limit of the test. Bedside Influenza Type B Antigen Negative [facility] Comment on above: Negative for Flu B p rotein antigen. Infection due to Flu Bcannot be ruled out. Flu B antigen in the sample may bebelow the detection limit of the test. Eosinophils # (Auto) 0.0 10 3/uL 0.0-0.7 [facility] Immature Granulocyte # (Auto) 0.21 10 3/uL High 0.00-0.03 [facility] Troponin I High Sensitivity 9.3 pg/mL 4.0-76.1 [facility] Comment on above: CUT-OFF POINTS HAVE BEEN ESTABLISHED BASED ON THE FOURTHUNIVERSAL DEFINITION OF MYOCARDIAL INFARCTION. THE UPPERREFERENCE LIMIT (URL) OF TROPONIN, DEFINED THE 99THPERCENTILE OF cTnI DISTRIBUTION IN A REFERENCE POPULATION,HAS BEEN CONFIRMED THE DECISION THRESHOLD FOR MIDIAGNOSIS.99TH PERCENTILE = 76.2 PG/MLNOTE: HIGH-SENSITIVITY TROPONIN ASSAY IS NOT INTENDED TO BEUSED IN ISOLATION BUT SHOULD BE INTERPRETED IN CONJUNCTIONWITH OTHER DIAGNOSTIC AND CLINICAL INFORMATION. No Panel InformationOrdered By: Allen Grey on 10-04-2023 Blood Culture 2 [facility] Blood Culture 1 [facility] Platelet mean volume Auto (B ld) [Entitic vol]on 10-04-2023 Platelet mean volume (Bld) [Entitic vol] 9.5 fL 9.5-13.5 [facility] Platelets Auto (Bld) [#/Vol] on 10-04-2023 Platelets (Bld) [#/Vol] 159 10 3/uL 150-450 [facility] RBC Auto (Bld) [#/Vol]on RBC (Bld) [#/Vol] 3.53 10 6/uL Low 4.70-6.10 [facility] Serum or plasma anion gap de terminationon 10-04-2023 Anion gap [Moles/Vol] 14.1 mmol/L [facility] Serum procalcitonin measurem enton 10-04-2023 Procalcitonin [Mass/Vol] 0.23 ng/mL 0.00-0.50 [facility] Clinical Supporton Clinical Support Normal [facility] Follow-Upon 09-27-2023 Follow-Up Normal [facility] Follow-Upon 09-20-2023 Follow-Up Normal [facility] 36on 09-19-2023 36 Normal [facility] Telephoneon 09-19-2023 Telephone Normal [facility] DSon 09-12-2023 DS [facility] NURSNOTEon 09-12-2023 NURSNOTE Normal [facility] 30on 09-11-2023 30 Normal [facility] 30 Normal [facility] BASIC METABOLIC PANELon 08-14 Anion gap [Moles/Vol] 12 mmol/L Normal 7-20 [facility] Comment on above: Performed By: #### L [id number] ####[facility] ([facility])[address] [place] [address] Calcium [Mass/Vol] 8.4 mg/dL Low 8.6-10.3 [facility] Comment on above: Performed By: #### L [id number] ####[facility] ([facility]ER)[address] [place] [address] Chloride [Moles/Vol] 102 mmol/L Normal 98-107 [facility] Comment on above: Performed By: #### L [id number] ####[facility] ([facility])[address] [facility] [address] CO2 [Moles/Vol] 24 mmol/L Normal 21-[address] [facility] Comment on above: Performed By: #### L [id number] ####[facility] ([facility])[address] [place] [address] Creatinine [Mass/Vol] 0.94 mg/dL Normal 0.70-1.30 [facility] Comment on above: Performed By: #### L [id number] ####[facility] ([facility])[address] [place] [address] GLOMERULAR FILTRATION RATE ML/MIN/1.73 SQ M.PREDICTED 84.5 mL/min/1.73m*2 Normal >60.0 [facility] Comment on above: Result Comment: [facility]???s estimated glomerular filtration rate (eGFR) will no [...] of individuals. Performed By: #### L [id number] ####[facility] ([facility])[address] [place] [address] Glucose [Mass/Vol] 266 mg/dL High 70-100 [facility] Comment on above: Performed By: #### L [id number] ####[facility] ([facility])[address] [place] [address] Potassium [Moles/Vol] 4.9 mmol/L Normal 3.5-5.1 [facility] Comment on above: Performed By: #### L [id number] ####[facility] ([facility])[address] [place] [address] Sodium [Moles/Vol] 133 mmol/L Low 136-145 [facility] Comment on above: Performed By: #### L [id number] ####[facility] ([facility])[address] [place] [address] Urea nitrogen [Mass/Vol] 17 mg/dL Normal 7-25 [facility] Comment on above: Performed By: #### L [id number] ####[facility] ([facility])[address] [place] [address] UREA NITROGEN/CREATININE (MASS RATIO) IN SER/PLAS 18.1 Normal [facility] Comment on above: Performed By: #### L [id number] ####[facility] ([facility])[address] [place] [address] CBCon 09-11-2023 Erythrocyte distribution width (RBC) [Ratio] 12.2 % Normal 11.5-15.0 [facility] Comment on above: Performed By: #### L [id number] ####[facility] ([facility])[address] [place] [address] ERYTHROCYTE MEAN CORPUSCULAR HEMOGLOBIN CONCENTRATION (G/DL) BY AUTOMATED 33.4 g/dL Normal 32.0-35.0 [facility] Comment on above: Performed By: #### L [id number] ####[facility] ([facility])[address] [place] [address] Hematocrit (Bld) [Volume fraction] 30.2 % Low 39.0-55.0 [facility] Comment on above: Performed By: #### L [id number] ####[facility] ([facility])[address] [place] [address] Hemoglobin (Bld) [Mass/Vol] 10.1 g/dL Low 13.0-17.0 [facility] Comment on above: Performed By: #### L [id number] ####[facility] ([facility])[address] [place] [address] MCH (RBC) [Entitic mass] 30.8 pg Normal 27.0-33.0 [facility] Comment on above: Performed By: #### L [id number] ####[facility] [place] [address] MCV (RBC) [Entitic vol] 92.1 fL Normal 82.0-98.0 [facility] Comment on above: Performed By: #### L [id number] ####[facility] ([facility])[address] [place] [address] PLATELETS (10*3/UL) IN BLOOD AUTOMATED COUNT 159 10*3/uL Normal 150-400 [facility] Comment on above: Performed By: #### L [id number] ####[facility] ([facility])[address] [place] [address] RBC (Bld) [#/Vol] 3.28 10*6/uL Low 4.20-5.70 [facility] Comment on above: Performed By: #### L [id number] ####[facility] ([facility])[address] [place] [address] WBC (Bld) [#/Vol] 8.22 10*3/uL Normal 4.00-10.60 [facility] Comment on above: Performed By: #### L [id number] ####[facility] ([facility])[address] [place] [address] [id number] 09-10-2023 [id number] Normal [facility] ANESon 09-10-2023 ANES Normal [facility] - TISSUE EXAMon LAB AP CASE REPORT Normal [facility] Comment on above: Order Comment: Pre-o p diagnosis:Severe claudication (CMS/HCC) [I73.9]Encounter for pre-operative examination [Z01.818]Critical limb ischemia of right lower extremity with rest pain (CMS/HCC) [I70.221] Result Comment: Surg ical Pathology Case: [id number] Provider: Epi Shrestha MD Collected: 09/10/2023 0389Ordering Location: [facility] Main Operating Room Received: 09/10/2023 1848Pathologist: BRANDEE Seniorpecimen: PLAQUE- RIGHT COMMON FEMORAL ARTERY Performed By: #### L [id number] ####[facility] ([facility])[address] [place] [address] LAB AP CLINICAL INFORMATION [facility] Comment on above: Order Comment: Pre-o p diagnosis:Severe claudication (CMS/HCC) [I73.9]Encounter for pre-operative examination [Z01.818]Critical limb ischemia of right lower extremity with rest pain (CMS/HCC) [I70.221] Result Comment: Post -Op PrigcoalkK80.9 - Severe claudication (CMS/HCC) [ICD-10-CM]Z01.818 - Encounter for pre-operative examination [ICD-10-CM]I70.221 - Critical limb ischemia of right lower extremity with rest pain (CMS/HCC) [ICD-10-CM] Performed By: #### L [id number] ####[facility] ([facility])[address] [place] [address] LAB AP GROSS DESCRIPTION A. U. [facility] Comment on above: Order Comment: Pre-o p [...] cm. Sectioning reveals lynn-yellow, calcified cut surfaces. 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 [facility] Comment on above: Order Comment: Pre-o p diagnosis:Severe claudication (CMS/HCC) [I73.9]Encounter for pre-operative examination [Z01.818]Critical limb ischemia of right lower extremity with rest pain (CMS/HCC) [I70.221] Performed By: #### L [id number] ####[facility] [place] [address] LAB AP REPORT FINAL DIAGNOSIS NARRATIVE Normal [facility] Comment on above: Order Comment: Pre-o p diagnosis:Severe claudication (CMS/HCC) [I73.9]Encounter for pre-operative examination [Z01.818]Critical limb ischemia of right lower extremity with rest pain (CMS/HCC) [I70.221] Result Comment: Righ t common femoral artery, endarterectomy:Atheromatous plaque with calcification. Performed By: #### L [id number] ####[facility] ([facility])[address] [place] [address] HPon 09-10-2023 HP Normal [facility] MRSA/MSSA DNA NASALon 2023 MRSA DNA Negative Normal Negative [facility] Comment on above: Order Comment: Testi ng [...] preclude nasal colonization. Performed By: #### L [id number] ####[facility] ([employer])[address] [place] [address] MSSA DNA Negative Normal Negative [facility] Comment on above: Order Comment: Testi ng [...] preclude nasal colonization. Performed By: #### L [id number] ####[facility] ([facility])[address] [place] [address] OPNOTEon 09-10-2023 OPNOTE Normal [facility] POCT GLUCOSE METER UNSOLICIT ED RESULTSon 09-10-2023 Glucose [Mass/Vol] 177 mg/dL High 70-105 [facility] Comment on above: Order Comment: Waive d Testing in the ED is performed under the ED CLIA certificate #[id number]. Result Comment: aepp ink Performed By: #### L [id number] ####[facility] ([facility])[address] [place] [address] TYPE AND SCREENon 09-10-2023 AB SCREEN Negative Normal [facility] Comment on above: Performed By: #### L [id number] ####[facility], ABO group Nom (Bld) A Normal [facility] Comment on above: Performed By: #### L [id number] ####[facility], RH TYPE IN BLOOD Positive Normal [facility] Comment on above: Performed By: #### L [id number] ####[facility], [id number] 09-03-2023 [id number] Normal [facility] Activated partial thrombopla stin time (aPTT) in platelet poor plasma by coagulation aon 09-03-2023 aPTT Coag (PPP) [Time] 28.1 s 22.3-36.2 [facility] Basophils Auto (Bld) [#/Vol] on 09-03-2023 Basophils (Bld) [#/Vol] 0.0 10 3/uL 0.0-0.1 [facility] Basophils/100 WBC Auto (Bld) on 09-03-2023 Basophils/100 WBC (Bld) 0.1 % Low 0.2-2.0 [facility] Eosinophils/100 WBC Auto (Bl d)on 09-03-2023 Eosinophils/100 WBC (Bld) 0.9 % 0.9-7.0 [facility] Erythrocyte distribution wid th Auto (RBC) [Ratio]on 09-03-2023 Erythrocyte distribution width (RBC) [Ratio] 12.4 % 11.0-15.0 [facility] Estimated glomerular filtrat ion rate (GFR) non- Americanon 09-03-2023 GFR/1.73 sq M.predicted among non-blacks MDRD (S/P/Bld) [Vol rate/Area] 41 mL/min/{1.73_m2} Low >=60 [facility] Hematocrit Auto (Bld) [Volum e fraction]on 09-03-2023 Hematocrit (Bld) [Volume fraction] 32.4 % Low 42.0-54.0 [facility] Hemoglobin [Mass/volume] in Bloodon 09-03-2023 Hemoglobin (Bld) [Mass/Vol] 10.8 g/dL Low 14.0-18.0 [facility] INR in Platelet poor plasma by Coagulation assayon 09-03-2023 INR Coag (PPP) [Relative time] 1.06 {INR} [facility] Comment on above: DESIRED INR:2.0-3.0 CONDITIONS NOT LISTED BELOW2.5-3.5 FOR PROSTHETIC HEART VALVE REPLACEMENT2.5-3.5 RECURRENT THROMBOSIS Laboratory - Chemistry and C hemistry - challengeon 09-03-2023 Calcium [Mass/Vol] 9.0 mg/dL 8.5-10.1 [facility] Chloride [Moles/Vol] 103 mmol/L 98-107 [facility] CO2 [Moles/Vol] 25.5 mmol/L 21.0-32.0 [facility] Creatinine [Mass/Vol] 1.63 mg/dL High 0.70-1.30 [facility] GFR/1.73 sq M.predicted MDRD (S/P/Bld) [Vol rate/Area] 50 mL/min/{1.73_m2} Low >=60 [facility] Glucose [Mass/Vol] 228 mg/dL High 74-106 [facility] Potassium [Moles/Vol] 4.8 mmol/L 3.5-5.1 [facility] Sodium [Moles/Vol] 139 mmol/L 136-145 [facility] Urea nitrogen [Mass/Vol] 20.0 mg/dL High 7.0-18.0 [facility] Urea nitrogen/Creatinine [Mass ratio] 12.3 mg/mg [facility] Laboratory - Hematology and Cell countson 09-03-2023 Immature granulocytes/100 WBC (Bld) 0.3 % 0.0-0.5 [facility] Leukocytes [#/volume] correc seth for nucleated erythrocytes in Blood by Automated counon 09-03-2023 WBC corrected for nucl RBC Auto (Bld) [#/Vol] 7.5 10 3/uL 4.0-11.0 [facility] Lymphocytes Auto (Bld) [#/Vo l]on 09-03-2023 Lymphocytes (Bld) [#/Vol] 2.3 10 3/uL 1.2-3.8 [facility] Lymphocytes/100 WBC Auto (Bl d)on 09-03-2023 Lymphocytes/100 WBC (Bld) 31.1 % 20.5-60.0 [facility] MCH Auto (RBC) [Entitic mass ]on 09-03-2023 MCH (RBC) [Entitic mass] 30.9 pg 25.9-34.0 [facility] MCHC Auto (RBC) [Mass/Vol]on 09-03-2023 MCHC (RBC) [Mass/Vol] 33.3 g/dL 29.9-35.2 [facility] MCV Auto (RBC) [Entitic vol] on 09-03-2023 MCV (RBC) [Entitic vol] 92.6 fL 80.0-94.0 [facility] Monocytes Auto (Bld) [#/Vol] on 09-03-2023 Monocytes (Bld) [#/Vol] 0.9 10 3/uL High 0.3-0.8 [facility] Monocytes/100 WBC Auto (Bld) on 09-03-2023 Monocytes/100 WBC (Bld) 11.3 % 1.7-12.0 [facility] Neutrophils Auto (Bld) [#/Vo l]on 09-03-2023 Neutrophils (Bld) [#/Vol] 4.2 10 3/uL 1.4-6.5 [facility] Neutrophils/100 WBC Auto (Bl d)on 09-03-2023 Neutrophils/100 WBC (Bld) 56.3 % 43.0-75.0 [facility] No Panel Informationon 09-02 Eosinophils # (Auto) 0.1 10 3/uL 0.0-0.7 [facility] Immature Granulocyte # (Auto) 0.02 10 3/uL 0.00-0.03 [facility] Platelet mean volume Auto (B ld) [Entitic vol]on 09-03-2023 Platelet mean volume (Bld) [Entitic vol] 9.3 fL Low 9.5-13.5 [facility] Platelets Auto (Bld) [#/Vol] on 09-03-2023 Platelets (Bld) [#/Vol] 186 10 3/uL 150-450 [facility] Prothrombin time (PT)on 08-13 PT Coag (PPP) [Time] 11.2 s 9.0-11.6 [facility] RBC Auto (Bld) [#/Vol]on RBC (Bld) [#/Vol] 3.50 10 6/uL Low 4.70-6.10 [facility] Serum or plasma anion gap de terminationon 09-03-2023 Anion gap [Moles/Vol] 15.3 mmol[facility] Orders Onlyon 08-22-2023 Orders Only Normal [facility] ANESon 08-21-2023 ANES Normal [facility] HPon 08-21-2023 HP H&P reviewed. The patient was examined and there are no changes to the H&P. Normal [facility] NURSNOTEon 08-21-2023 NURSNOTE RN educated pt on d/ c instructions. RN encouraged pt to voice any questions or concerns. Pt verbalizes no questions or concerns at this time. Normal [facility] Basophils Auto (Bld) [#/Vol] on 08-18-2023 Basophils (Bld) [#/Vol] 0.0 10 3/uL 0.0-0.1 [facility] Basophils/100 WBC Auto (Bld) on 08-18-2023 Basophils/100 WBC (Bld) 0.1 % 0.2-2.0 [facility] Cholesterol in LDL Calc [Mas s/Vol]on 08-18-2023 Cholesterol in LDL [Mass/Vol] 31.6 mg/dL [facility] Comment on above: <100 mg/dl [id number] 0-129 mg/dl NEAR OR ABOVE [id number] mg/dl BORDERLINE [id number] mg/dl HIGH>190 mg/dl VERY HIGH Cholesterol in VLDL Calc [Ma ss/Vol]on 08-18-2023 Cholesterol in VLDL [Mass/Vol] 9.4 mg/dL [facility] Eosinophils/100 WBC Auto (Bl d)on 08-18-2023 Eosinophils/100 WBC (Bld) 0.8 % 0.9-7.0 [facility] Erythrocyte distribution wid th Auto (RBC) [Ratio]on 08-18-2023 Erythrocyte distribution width (RBC) [Ratio] 12.2 % 11.0-15.0 [facility] Estimated glomerular filtrat ion rate (GFR) non- Americanon 08-18-2023 GFR/1.73 sq M.predicted among non-blacks MDRD (S/P/Bld) [Vol rate/Area] 57 mL/min/{1.73_m2} >=60 [facility] Globulin Calc (S) [Mass/Vol] on 08-18-2023 Globulin (S) [Mass/Vol] 3.5 g/dL [facility] Hematocrit Auto (Bld) [Volum e fraction]on 08-18-2023 Hematocrit (Bld) [Volume fraction] 35.8 % 42.0-54.0 [facility] Hemoglobin [Mass/volume] in Bloodon 08-18-2023 Hemoglobin (Bld) [Mass/Vol] 11.9 g/dL 14.0-18.0 [facility] Laboratory - Chemistry and C hemistry - challengeon 08-18-2023 Albumin [Mass/Vol] 3.4 g/dL 3.4-5.0 [facility] ALP [Catalytic activity/Vol] 70 U/L 46-116 [facility] ALT [Catalytic activity/Vol] 17 U/L 16-63 [facility] AST [Catalytic activity/Vol] 12 U/L 15-37 [facility] Bilirubin [Mass/Vol] 0.3 mg/dL 0.2-1.0 [facility] Calcium [Mass/Vol] 9.0 mg/dL 8.5-10.1 [facility] Chloride [Moles/Vol] 105 mmol/L 98-107 [facility] Cholesterol [Mass/Vol] 82 mg/dL <=200 [facility] Cholesterol in HDL [Mass/Vol] 41 mg/dL 40-60 [facility] Comment on above: > or =60 mg/dl - LOW CARDIOVASCULAR RISK<40 mg/dl - HIGH CARDIOVASCULAR RISK CO2 [Moles/Vol] 26.5 mmol/L 21.0-32.0 [facility] Creatinine [Mass/Vol] 1.24 mg/dL 0.70-1.30 [facility] GFR/1.73 sq M.predicted MDRD (S/P/Bld) [Vol rate/Area] mL/min/{1.73_m2} >=60 [facility] Glucose [Mass/Vol] 172 mg/dL 74-106 [facility] Potassium [Moles/Vol] 5.1 mmol/L 3.5-5.1 [facility] Protein [Mass/Vol] 6.9 g/dL 6.4-8.2 [facility] Sodium [Moles/Vol] 139 mmol/L 136-145 [facility] Triglyceride [Mass/Vol] 47 mg/dL <=150 [facility] Urea nitrogen [Mass/Vol] 19.0 mg/dL 7.0-18.0 [facility] Urea nitrogen/Creatinine [Mass ratio] 15.3 mg/mg [facility] Laboratory - Hematology and Cell countson 08-18-2023 Immature granulocytes/100 WBC (Bld) 0.1 % 0.0-0.5 [facility] Leukocytes [#/volume] correc seth for nucleated erythrocytes in Blood by Automated counon 08-18-2023 WBC corrected for nucl RBC Auto (Bld) [#/Vol] 10.1 10 3/uL 4.0-11.0 [facility] Lymphocytes Auto (Bld) [#/Vo l]on 08-18-2023 Lymphocytes (Bld) [#/Vol] 2.5 10 3/uL 1.2-3.8 [facility] Lymphocytes/100 WBC Auto (Bl d)on 08-18-2023 Lymphocytes/100 WBC (Bld) 24.3 % 20.5-60.0 [facility] MCH Auto (RBC) [Entitic mass ]on 08-18-2023 MCH (RBC) [Entitic mass] 30.8 pg 25.9-34.0 [facility] MCHC Auto (RBC) [Mass/Vol]on 08-18-2023 MCHC (RBC) [Mass/Vol] 33.2 g/dL 29.9-35.2 [facility] MCV Auto (RBC) [Entitic vol] on 08-18-2023 MCV (RBC) [Entitic vol] 92.7 fL 80.0-94.0 [facility] Monocytes Auto (Bld) [#/Vol] on 08-18-2023 Monocytes (Bld) [#/Vol] 0.8 10 3/uL 0.3-0.8 [facility] Monocytes/100 WBC Auto (Bld) on 08-18-2023 Monocytes/100 WBC (Bld) 8.2 % 1.7-12.0 [facility] Neutrophils Auto (Bld) [#/Vo l]on 08-18-2023 Neutrophils (Bld) [#/Vol] 6.7 10 3/uL 1.4-6.5 [facility] Neutrophils/100 WBC Auto (Bl d)on 08-18-2023 Neutrophils/100 WBC (Bld) 66.5 % 43.0-75.0 [facility] No Panel Informationon 08-17 Eosinophils # (Auto) 0.1 10 3/uL 0.0-0.7 [facility] Immature Granulocyte # (Auto) 0.01 10 3/uL 0.00-0.03 [facility] Platelet mean volume Auto (B ld) [Entitic vol]on 08-18-2023 Platelet mean volume (Bld) [Entitic vol] 9.2 fL 9.5-13.5 [facility] Platelets Auto (Bld) [#/Vol] on 08-18-2023 Platelets (Bld) [#/Vol] 186 10 3/uL 150-450 [facility] RBC Auto (Bld) [#/Vol]on RBC (Bld) [#/Vol] 3.86 10 6/uL 4.70-6.10 [facility] Serum or plasma albumin/glob ulin mass ratioon 08-18-2023 Albumin/Globulin [Mass ratio] 1.0 {ratio} [facility] Serum or plasma anion gap de terminationon 08-18-2023 Anion gap [Moles/Vol] 12.6 mmol/L Fi [facility] Serum or plasma total choles terol/high density lipoprotein (HDL) cholesterol mass kendall 08-18-2023 Cholesterol.total/Chol esterol in HDL [Mass ratio] 2.0 {ratio} [facility] Comment on above: 3.3 - 4.4 LOW RISK4. 4 - 7.1 AVERAGE RISK7.1 - 11.0 MODERATE RISK>11.0 HIGH RISK HPon 08-17-2023 HP Normal [facility] Ambulatory Visit Summaryon 0 06-25-2023 Ambulatory Visit Summary MARILU DAN SR :1950 Visit Date:06/25/2023 Ambulatory Visit Instructions Your [...] DIAZ, Cristo Frances Where: [facility] Normal [facility] Patient Educationon 06-25-19 24 Patient Education [...] provider. Document Revised: 04/05/2020 Document Reviewed: 04/05/2020 [employer] Patient Education ? 2022 [employer] [facility] Urology Office/Clinic Noteon 06-25-2023 Urology Office/Clinic [...] to 16-30 Fr). [2] 6. 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 Had aortic valve replacement. Elevated risk for periop complications in the future. [3] Follow-up With When Contact Information NICOLE DIZA, Cristo Frances, URL [facility] [address] [place] [address]- [phone] Additional Instructions: has f/u scheduled 11/19/23 Patient Education Testicular Self-Exam Opal Null, personally scribed for Dr. Rivera on 06/25/2023 10:02:39. . Documentation recorded by the Opal varela, accurately reflects the services(s) I performed and decisions made by me. Authenticated by Dr. Rivera on 06/25/2023 10:05:22. Probl (more content not included)... Normal [facility] Comment on above: Result Comment: Elec tronically Signed By: Cristo RIVERA MD\.br\Date and Time Signed: 06/25/23 10:05 EST\.br\Electronically Co-Signed By: Opal Kessler\.br\Date and Time Co-Signed: 06/25/23 10:03 EST Calcium [Mass/volume] in Ser um or PlasmaOrdered By: Blas Ospina on 07-11-2022 Calcium [Mass/Vol] 9.2 mg/dL 8.2-10.2 [facility] Carbon dioxide, total [Moles /volume] in Serum or PlasmaOrdered By: Blas Ospina on 07-11-2022 CO2 [Moles/Vol] 22.4 mmol/L 22.0-30.0 [facility] Chloride [Moles/volume] in S quinten or PlasmaOrdered By: Blas Ospina on 07-11-2022 Chloride [Moles/Vol] 102 mmol/L 95-114 [facility] Creatinine and Glomerular fi ltration rate.predicted panel (S/P/Bld)Ordered By: Blas Ospina on 07-11-2022 Creatinine [Mass/Vol] 0.97 mg/dL 0.64-1.27 [facility] Estimated glomerular filtrat ion rate (GFR) non- AmericanOrdered By: Blas Ospina on 07-11-2022 GFR/1.73 sq M.predicted among non-blacks MDRD (S/P/Bld) [Vol rate/Area] > 60 mL/Min [facility] Glucose [Mass/volume] in Ser um or PlasmaOrdered By: Blas Ospina on 07-11-2022 Glucose [Mass/Vol] 197 mg/dL 70-100 [facility] Comment on above: ADA recommended refe rence rangeRandom Glucose Reference Range is dependent on time and content of last meal. Glucose of more than 200 mg/dL in a nonstressed, ambulatory subject supports the diagnosis of Diabetes Mellitus. No Panel InformationOrdered By: Blas Ospina on 07-11-2022 Estimated GFR () > 60 mL/Min [facility] Comment on above: GFR estimated refere nce range: According to KDOQI guidelines, <60 ml/min/1.73m2 is sufficient to diagnose a patient with chronic kidney disease. Pharmacy Creatinine Clearance (Chem N/A [facility] Potassium [Moles/volume] in Serum or PlasmaOrdered By: Blas Ospina on 07-11-2022 Potassium [Moles/Vol] See comment 3.5-5.1 [facility] Comment on above: Specimen hemolyzed, redraw requested Serum or plasma anion gap de terminationOrdered By: Blas Ospina on 07-11-2022 Anion gap [Moles/Vol] TNP [facility] Comment on above: Test not performed Sodium [Moles/volume] in Ser um or PlasmaOrdered By: Blas Ospina on 07-11-2022 Sodium [Moles/Vol] 131 mmol/L 136-146 [facility] Urea nitrogen [Mass/volume] in Serum or PlasmaOrdered By: Blas Ospina on 07-11-2022 Urea nitrogen [Mass/Vol] 20 mg/dL 9-23 [facility] XR hip RT min 2V(w/wo pelvis )*on 07-11-2022 XR hip RT min 2V(w/wo pelvis)* [facility] [employer] Other XR hip RT min 2V(w/wo pelvis)* [facility] [employer] Other XR hip RT min 2V(w/wo pelvis)* [address] [employer] Other XR hip RT min 2V(w/wo pelvis)* [place] [address] [employer] Other XR hip RT min 2V(w/wo pelvis)* XRay Report [employer] Other XR hip RT min 2V(w/wo pelvis)* Signed [employer] Other XR hip RT min 2V(w/wo pelvis)* Patient: Marilu Dan MR#: [id number] [employer] Other XR hip RT min 2V(w/wo pelvis)* 019 [employer] Other XR hip RT min 2V(w/wo pelvis)* : 1950 Acct:[id number] [employer] Other XR hip RT min 2V(w/wo pelvis)* Age/Sex: 72 / M ADM Date: 07/11/22 [employer] Other XR hip RT min 2V(w/wo pelvis)* Loc: Room: Type: [facility] [employer] Other XR hip RT min 2V(w/wo pelvis)* Attending Dr: Mary Beth Pitts MD [employer] Other XR hip RT min 2V(w/wo pelvis)* Copies to: Mary Beth Pitts MD [employer] Other XR hip RT min 2V(w/wo pelvis)* Ordering Provider: Mary Beth Pitts MD [employer] Other XR hip RT min 2V(w/wo pelvis)* Date of Service: 07/11/22 [employer] Other XR hip RT min 2V(w/wo pelvis)* XR/XR hip RT min 2V(w/wo pelvis)*: M25.551 [employer] Other XR hip RT min 2V(w/wo pelvis)* RIGHT HIP - 2 views: [employer] Other XR hip RT min 2V(w/wo pelvis)* CLINICAL HISTORY: Chronic right hip pain for one year. [employer] Other XR hip RT min 2V(w/wo pelvis)* COMPARISON: None [employer] Other XR hip RT min 2V(w/wo pelvis)* FINDINGS: Mild degenerative changes of the right hip without acute bony process. Additional [employer] Other XR hip RT min 2V(w/wo pelvis)* degenerative changes are seen involving the SI joints and visualized lower lumbar spine. Vascular [employer] Other XR hip RT min 2V(w/wo pelvis)* calcifications. [employer] Other XR hip RT min 2V(w/wo pelvis)* XR/XR hip RT min 2V(w/wo pelvis)* [employer] Other XR hip RT min 2V(w/wo pelvis)* IMPRESSION: [employer] Other XR hip RT min 2V(w/wo pelvis)* MILD DEGENERATIVE CHANGES OF THE RIGHT HIP WITHOUT ACUTE BONY PROCESS.. [employer] Other XR hip RT min 2V(w/wo pelvis)* Impression dictated by: Griffin Thibodeaux Jr., D.O.07/11/2022 11:33 AM [employer] Other XR hip RT min 2V(w/wo pelvis)* Dictation Location: [place] [address] [employer] Other XR hip RT min 2V(w/wo pelvis)* Transcribed By: PWS 07/11/22 [facility] Other XR hip RT min 2V(w/wo pelvis)* Dictated By: Griffin Thibodeaux Jr, DO 07/11/22 [facility] Other XR hip RT min 2V(w/wo pelvis)* Signed By: [facility] Other XR hip RT min 2V(w/wo pelvis)* 07/11/22 [facility] Other CULTURE URINEon 04-29-2022 CULTURE URINE Culture Observations : NO GROWTH. Normal [facility] Comment on above: Performed By: #### S EDR #### [facility] [address] [place] [address] Dr. Julius Greer Basophils Auto (Bld) [#/Vol] Ordered By: Neno Moreira on 03-19-2022 Basophils (Bld) [#/Vol] 0.0 10*3/uL 0.0-0.2 [facility] Basophils/100 WBC Auto (Bld) Ordered By: Neno Moreira on 03-19-2022 Basophils/100 WBC (Bld) 0.2 % . [facility] CULTURE BLOODon 03-19-2022 Microscopic examination of blood, [...] <=0.25 S F Levofloxacin <=0.12 S F Trimethoprim/Sulfamethox azole <=20 S F Normal [facility] Comment on above: Performed By: #### S EDR #### [facility] [address] [place] [address] Dr. Julius Greer Microscopic examination of blood, [...] <=0.25 S F Levofloxacin <=0.12 S F Trimethoprim/Sulfamethox azole <=20 S F Normal [facility] Comment on above: Performed By: #### B LDCX2 #### [facility] [address], [place] [address] Dr. Julius Greer CULTURE URINEon 03-19-2022 CULTURE [...] <=0.12 S F Nitrofurantoin 128 R F Trimethoprim/Sulfamethox azole <=20 S F Normal [facility] Comment on above: Performed By: #### S EDR #### [facility] [address] [place] [address] Dr. Julius Greer Creatinine and Glomerular fi ltration rate.predicted panel (S/P/Bld)Ordered By: Neno Moreira on 03-19-2022 Creatinine [Mass/Vol] 0.75 mg/dL 0.64-1.27 [facility] Eosinophils Auto (Bld) [#/Vo l]Ordered By: Neno Coronadoomar on 03-19-2022 Eosinophils (Bld) [#/Vol] 0.0 10*3/uL 0.0-0.45 [facility] Eosinophils/100 WBC Auto (Bl d)Ordered By: Neno Mccarthyr on 03-19-2022 Eosinophils/100 WBC (Bld) 1.0 % . [facility] Erythrocyte distribution wid th Auto (RBC) [Ratio]Ordered By: Neno Moreira on 03-19-2022 Erythrocyte distribution width (RBC) [Ratio] 12.8 % 12.0-14.8 [facility] Estimated glomerular filtrat ion rate (GFR) non- AmericanOrdered By: Neno Mccarthyr on 03-19-2022 GFR/1.73 sq M.predicted among non-blacks MDRD (S/P/Bld) [Vol rate/Area] > 60 mL/Min [facility] Glucose Glucometer (BldC) [M ass/Vol]Ordered By: Neno Moreira on 03-19-2022 Glucose [Mass/Vol] 295 mg/dL [facility] Comment on above: Random Glucose Refer ence Range is dependent on time and content of last meal. Glucose of more than 200 mg/dL in a nonstressed, ambulatory subject supports the diagnosis of Diabetes Mellitus. Hematocrit Auto (Bld) [Volum e fraction]Ordered By: Neno Moreira on 03-19-2022 Hematocrit (Bld) [Volume fraction] 35.5 % 38.8-50.0 [facility] Hemoglobin [Mass/volume] in BloodOrdered By: Neno Moreira on 03-19-2022 Hemoglobin (Bld) [Mass/Vol] 12.0 g/dL 13.0-17.0 [facility] Laboratory - Hematology and Cell countsOrdered By: Neno Moreira on 03-19-2022 Nucleated RBC/100 WBC (Bld) [Ratio] 0.1 % 0-0.5 [facility] Leukocytes [#/volume] in Blo od by Automated countOrdered By: Neno Moreira on 03-19-2022 WBC (Bld) [#/Vol] 4.9 10*3/uL 4.5-11.0 [facility] Lymphocytes Auto (Bld) [#/Vo l]Ordered By: Neno Moreira on 03-19-2022 Lymphocytes (Bld) [#/Vol] 1.0 10*3/uL 1.00-4.8 [facility] Lymphocytes/100 WBC Auto (Bl d)Ordered By: Neno Moreira on 03-19-2022 Lymphocytes/100 WBC (Bld) 20.4 % . [facility] MCH Auto (RBC) [Entitic mass ]Ordered By: Neno Moreira on 03-19-2022 MCH (RBC) [Entitic mass] 29.9 pg 27.5-35.2 [facility] MCHC Auto (RBC) [Mass/Vol]Or dered By: Neno Moreira on 03-19-2022 MCHC (RBC) [Mass/Vol] 33.9 g/dL 32.5-35.6 [facility] MCV Auto (RBC) [Entitic vol] Ordered By: Neno Coronadoomar on 03-19-2022 MCV (RBC) [Entitic vol] 88.3 fL 83.5-101 [facility] Monocytes Auto (Bld) [#/Vol] Ordered By: Neno Coronadoomar on 03-19-2022 Monocytes (Bld) [#/Vol] 0.6 10*3/uL 0.0-0.8 [facility] Monocytes/100 WBC Auto (Bld) Ordered By: Neno Mccarthyr on 03-19-2022 Monocytes/100 WBC (Bld) 12.2 % . [facility] Neutrophils Auto (Bld) [#/Vo l]Ordered By: Neno Mccarthyr on 03-19-2022 Neutrophils (Bld) [#/Vol] 3.3 10*3/uL 1.8-7.7 [facility] Neutrophils/100 WBC Auto (Bl d)Ordered By: Neno Mccarthyr on 03-19-2022 Neutrophils/100 WBC (Bld) 66.2 % . [facility] No Panel InformationOrdered By: Neno Moreira on 03-19-2022 Estimated GFR () > 60 mL/Min [facility] Comment on above: GFR estimated refere nce range: According to KDOQI guidelines, <60 ml/min/1.73m2 is sufficient to diagnose a patient with chronic kidney disease. Pharmacy Creatinine Clearance (Chem 85.68 [facility] Platelet mean volume Auto (B ld) [Entitic vol]Ordered By: Neno Mccarthyr on 03-19-2022 Platelet mean volume (Bld) [Entitic vol] 8.3 fL 6.6-10.1 [facility] Platelets Auto (Bld) [#/Vol] Ordered By: Neno Coronadoomar on 03-19-2022 Platelets (Bld) [#/Vol] 134 10*3/uL 150-450 [facility] RBC Auto (Bld) [#/Vol]Ordere d By: Neno Moreira on 03-19-2022 RBC (Bld) [#/Vol] 4.02 10*6/uL 3.90-5.60 [facility] Serum or plasma anion gap de terminationOrdered By: Neno Moreira on 03-19-2022 Anion gap [Moles/Vol] 9.6 mmol/L 6.0-15.0 [facility] Serum or plasma calcium ruma urement (mass/volume)Ordered By: Neno Moreira on 03-19-2022 Calcium [Mass/Vol] 8.2 mg/dL 8.2-10.2 [facility] Serum or plasma chloride gonzalez surement (moles/volume)Ordered By: Neno Moreira on 03-19-2022 Chloride [Moles/Vol] 104 mmol/L 95-114 [facility] Serum or plasma glucose ruma urement (mass/volume)Ordered By: Neno Moreira on 03-19-2022 Glucose [Mass/Vol] 203 mg/dL 70-100 [facility] Comment on above: ADA recommended refe rence rangeRandom Glucose Reference Range is dependent on time and content of last meal. Glucose of more than 200 mg/dL in a nonstressed, ambulatory subject supports the diagnosis of Diabetes Mellitus. Serum or plasma potassium me asurement (moles/volume)Ordered By: Neno Moreira on 03-19-2022 Potassium [Moles/Vol] 3.7 mmol/L 3.5-5.1 [facility] Serum or plasma sodium measu rement (moles/volume)Ordered By: Neno Moreira on 03-19-2022 Sodium [Moles/Vol] 137 mmol/L 136-146 [facility] Serum or plasma total carbon dioxide measurement (moles/volume)Ordered By: Neno Moreira on 03-19-2022 CO2 [Moles/Vol] 27.1 mmol/L 22.0-30.0 [facility] Serum or plasma urea nitroge n measurement (mass/volume)Ordered By: Neno Moreira on 03-19-2022 Urea nitrogen [Mass/Vol] 11 mg/dL 9-23 [facility] Troponin I.cardiac [Mass/vol ume] in Serum or Plasma by High sensitivity methodOrdered By: Neno Moreira on 03-19-2022 Troponin I.cardiac High sensitivity method [Mass/Vol] 1882 pg/mL 0-20 [facility] Comment on above: Results calledat 070 8 on 03/19/22 Urine culture routineOrdered By: Paulina Alexander on 03-19-2022 Bacteria identified Cx Nom (U) 2 Days [facility] Activated partial thrombopla stin time (aPTT) in platelet poor plasma by coagulation aOrdered By: Paulina Alexander on 03-18-2022 aPTT Coag (PPP) [Time] 26.2 s 25.1-36.5 [facility] - CoagulationOrde red By: Paulina Alexander on 03-18-2022 PT Coag (PPP) [Time] 14.0 s 9.0-12.9 [facility] Platelet adequacy [Presence] in Blood by Light microscopyOrdered By: Paulina Alexander on 03-18-2022 Platelets LM Ql (Bld) Decreased Normal [facility] Platelet morphology finding [Identifier] in BloodOrdered By: Paulina Alexander on 03-18-2022 Platelet morphology finding Nom (Bld) Normal Normal [facility] Platelet poor plasma interna tional normalized ratio (INR) by coagulation assay (relatOrdered By: Paulina Alexander on 03-18-2022 INR Coag (PPP) [Relative time] 1.2 {INR} [facility] Comment on above: INR Therapeutic Rang e A) Pre- and Peroperative OAT started two weeks before surgery. NOT HIP SURGERY: 1.5 - 2.5 HIP SURGERY: 2 - 3B) Primary and secondary prevention of venous THROMBOSIS: 2 - 3C) Active venous thrombosis, pulmonary embolismand prevention of recurrent venous thrombosis: 2 - 3D) Prevention of arterial thromboembolismincluding patients with mechanical heart valves: 3 - 4.5 RBC morphologyOrdered By: Jose G Alexander on 03-18-2022 RBC morphology finding Nom (Bld) Normal [facility] Automated erythrocytes count in urine sediment (number/area)Ordered By: Paulina Alexander on 03-17-2022 RBC Auto (Urine sed) [#/Area] 20-49 [HPF] 0-4 [facility] Automated leukocytes count i n urine sediment (number/area)Ordered By: Paulina Alexander on 03-17-2022 WBC Auto (Urine sed) [#/Area] Innumerable [HPF] 0-4 [facility] Automated urine hyaline cast s count (number/volume)Ordered By: Paulina Alexander on 03-17-2022 Hyaline casts Auto (U) [#/Vol] 0-1 [LPF] 0-1 [facility] Bilirubin Test strip Ql (U)O rdered By: Paulina Alexander on 03-17-2022 Bilirubin Ql (U) Negative Negative [facility] Body fluid albumin measureme nt (mass/volume)Ordered By: Paulina Alexander on 03-17-2022 Albumin (Body fld) [Mass/Vol] 2.5 g/dL 3.2-5.5 [facility] Casts typing in urine sedime nt by light microscopyOrdered By: Paulina Alexander on 03-17-2022 Casts LM Nom (Urine sed) None seen [LPF] None Seen [facility] Cholesterol [Mass/volume] in Serum or PlasmaOrdered By: Paulina Alexander on 03-17-2022 Cholesterol [Mass/Vol] 50 mg/dL 140-200 [facility] Comment on above: Chol less than 200 m g/dl low riskChol 201-239 mg/dl borderline riskChol 240 mg/dl and greater high risk Cholesterol in LDL Calc [Mas s/Vol]Ordered By: Paulina Alexander on 03-17-2022 Cholesterol in LDL [Mass/Vol] 12 mg/dL 0-100 [facility] Comment on above: LDL ATP III CLASSIFI CATIONLDL less than 100 mg/dL OptimalLDL 100-129 mg/dL Near or above optimalLDL 130-159 mg/dL Borderline highLDL 160-189 mg/dL HighLDL greater than 189 mg/dL Very high Cholesterol in VLDL Calc [Ma ss/Vol]Ordered By: Paulina Alexander on 03-17-2022 Cholesterol in VLDL [Mass/Vol] 20 mg/dL [facility] Color Auto (U)Ordered By: Jose G Alexander on 03-17-2022 Color (U) Yellow Yellow [facility] Globulin Calc (S) [Mass/Vol] Ordered By: Paulina Alexander on 03-17-2022 Globulin (S) [Mass/Vol] 3.1 g/dL [facility] Glucose mean value [Mass/vol ume] in Blood Estimated from glycated hemoglobinOrdered By: Paulina Alexander on 03-17-2022 Average glucose Estimated from glycated hemoglobin (Bld) [Mass/Vol] 180 mg/dL [facility] Hemoglobin A1c percentageOrd ered By: Paulina Alexander on 03-17-2022 HbA1c (Bld) [Mass fraction] 7.9 % 4.3-5.6 [facility] Comment on above: Increased risk for d iabetes: 5.7 - 6.4diabetes: >6.4glycemic control for adults with diabetes: <7.0 Ketones Auto test strip (U) [Mass/Vol]Ordered By: Paulina Alexander on 03-17-2022 Ketones (U) [Mass/Vol] Negative Negative [facility] - Chemistry and C hemistry - challengeOrdered By: Paulina Alexander on 03-17-2022 Magnesium [Mass/Vol] 1.6 mg/dL 1.6-2.6 [facility] Nitrite Test strip Ql (U)Ord ered By: Paulina Alexander on 03-17-2022 Nitrite Ql (U) Negative Negative [facility] No Panel InformationOrdered By: Neno Moreira on 03-17-2022 Bedside Glucose Comment Glu2: cleaned meter [facility] Protein Auto test strip (U) [Mass/Vol]Ordered By: Paulina Alexander on 03-17-2022 Protein (U) [Mass/Vol] 100 mg/dL Negative [facility] Protein [Mass/volume] in Ser um or PlasmaOrdered By: Paulina Alexander on 03-17-2022 Protein [Mass/Vol] 5.6 g/dL 6.1-7.9 [facility] Serum or plasma alanine gamez otransferase measurement without P-5'-P (enzymatic activiOrdered By: Paulina Alexander on 03-17-2022 ALT No additional P-5'-P [Catalytic activity/Vol] 19 U/L 10-60 [facility] Serum or plasma albumin/glob ulin mass ratioOrdered By: Paulina Alexander on 03-17-2022 Albumin/Globulin [Mass ratio] 0.8 {ratio} [facility] Serum or plasma alkaline adriane sphatase measurement (enzymatic activity/volume)Ordered By: Paulina Alexander on 03-17-2022 ALP [Catalytic activity/Vol] 56 U/L 32-92 [facility] Serum or plasma aspartate am inotransferase measurement (enzymatic activity/volume)Ordered By: Paulina Alexander on 03-17-2022 AST [Catalytic activity/Vol] 37 U/L 10-42 [facility] Serum or plasma high density lipoprotein (HDL) cholesterol measurementOrdered By: Paulina Alexander on 03-17-2022 Cholesterol in HDL [Mass/Vol] 18 mg/dL 29-71 [facility] Comment on above: HDL CHOL ATP-III CLA SSIFICATION Cardiovascular RiskHDL > or equal to 60 mg/dL LOWHDL < 40 mg/dL HIGH Serum or plasma total biliru bin measurement (mass/volume)Ordered By: Paulina Alexander on 03-17-2022 Bilirubin [Mass/Vol] 0.6 mg/dL 0.3-1.2 [facility] Serum or plasma total choles terol/high density lipoprotein (HDL) cholesterol mass ratOrdered By: Paulina Alexander on 03-17-2022 Cholesterol.total/Chol esterol in HDL [Mass ratio] 2.8 {ratio} <5.0 [facility] Specific gravity Auto test s trip (U) [Rel density]Ordered By: Paulina Alexander on 03-17-2022 Specific gravity (U) [Rel density] 1.017 1.001-1.030 [facility] Squamous epithelial cells de tection in urine sediment by light microscopyOrdered By: Paulina Alexander on 03-17-2022 Epithelial cells.squamous LM Ql (Urine sed) 0-1 [HPF] 0-2 [facility] Triglyceride [Mass/volume] i n Serum or PlasmaOrdered By: Paulina Alexander on 03-17-2022 Triglyceride [Mass/Vol] 100 mg/dL 35-149 [facility] Comment on above: TRIG ATP III CLASSIF ICATIONTRIG less than 150 mg/dL NormalTRIG 150-199 mg/dL Borderline highTRIG 200-500 mg/dL High TRIG greater than 500 mg/dL Very highStandard traceable to the Center for Disease Conrtrol and Prevention (CDC) test method. Urine bacteria detection by automated methodOrdered By: Paulina Alexander on 03-17-2022 Bacteria Auto Ql (U) 2+ None Seen [facility] Comment on above: --- 03/17/22 0600 -- -Ur Bact previously reported as: None Seen Urine clarity by refractomet ry automatedOrdered By: Paulina Alexander on 03-17-2022 Clarity Refractometry automated (U) Turbid Clear [facility] Urine glucose measurement by automated test strip (mass/volume)Ordered By: Paulina Alexander on 03-17-2022 Glucose Auto test strip (U) [Mass/Vol] 250 mg/dL Normal [facility] Urine hemoglobin detection b y automated test stripOrdered By: Paulina Alexander on 03-17-2022 Hemoglobin Auto test strip Ql (U) 3+ Negative [facility] Urine leukocyte esterase det ection by automated test stripOrdered By: Paulina Alexander on 03-17-2022 Leukocyte esterase Auto test strip Ql (U) 4+ Negative [facility] Urobilinogen Auto test strip (U) [Mass/Vol]Ordered By: Paulina Alexander on 03-17-2022 Urobilinogen (U) [Mass/Vol] Normal mg/dL Normal [facility] Yeast detection in urine sed iment by light microscopyOrdered By: Paulina Alexander on 03-17-2022 Yeast LM Ql (Urine sed) None seen [HPF] None Seen [facility] pH Auto test strip (U)Ordere d By: Paulina Alexander on 03-17-2022 pH (U) 5.5 [pH] 5.0-9.0 [facility] ACETONE SERUMon 03-16-2022 ACETONE Negative Normal NEGATIVE [facility] Comment on above: Performed By: #### S EDR #### [facility] [address] [place] [address] Dr. Julius Greer BLOOD CULTURE ID PANELon A. baumannii Not detected Normal NOT DETECTED [facility] Comment on above: Performed By: #### C BCMAN #### [facility] [address] [place] [address] [address] Julius Greer Bacteriodes fragilis Not detected Normal NOT DETECTED [facility] Comment on above: Performed By: #### C BCMAN #### [facility] [address] [place] [address] [address] Julius FRIEDMAN CONTROLS PASSED Normal [facility] Comment on above: Performed By: #### C BCMAN #### [facility] [address] [place] [address] [address] Julius GAMLBEDBTHD BLOOD CULTURE BOTTLE INFORMATION [facility] Comment on above: Performed By: #### C BCMAN #### [facility] [address] [place] [address] Dr. Julius [id number] ANTIMICROBIAL RESIST ANCE GENES [facility] Comment on above: Performed By: #### C BCMAN #### [facility] [address] [place] [address] Dr. Julius WEBERD2 SEE BELOW [facility] Comment on above: Result Comment: Note : Antimicrobial resitance can occur via multiple mechanisms. A Not Detected result for the [employer]Array antomicrobial resistance gene assays does not indicate antimicrobial susceptibility. Subculturing is required for species identification and susceptibility testing of isolates. Performed By: #### C BCMAN #### [facility] [address] [place] [address] Dr. Julius [id number] Positive [facility] Comment on above: Performed By: #### C BCMAN #### [facility] [address] [place] [address] Dr. Julius WEBERD4 Negative [facility] Comment on above: Performed By: #### C BCMAN #### [facility] [address] [place] [address] Dr. Julius [id number] YEAST [facility] Comment on above: Performed By: #### C BCMAN #### [facility] [address] [place] [address] Dr. Julius Alcazar Set: Set 2 Normal [facility] Comment on above: Performed By: #### C BCMAN #### [facility] [address] [place] [address] Dr. Julius Greer Bottle: Aerobic Normal [facility] Comment on above: Performed By: #### C BCMAN #### [facility] [address] [place] [address] Dr. Julius Greer C. neoformans/gattii Not detected Normal NOT DETECTED [facility] Comment on above: Performed By: #### C BCMAN #### [facility] [address] [place] [address] Dr. Julius Greer Sally albicans Not detected Normal NOT DETECTED [facility] Comment on above: Performed By: #### C BCMAN #### [facility] [address] [place] [address] Dr. Julius Greer Sally auris Not detected Normal NOT DETECTED [facility] Comment on above: Performed By: #### C BCMAN #### [facility] [address] [place] [address] Dr. Julius Greer Sally glabrata Not detected Normal NOT DETECTED [facility] Comment on above: Performed By: #### C BCMAN #### [facility] [address] [place] [address] Dr. Julius Greer Sally Krusei Not detected Normal NOT DETECTED [facility] Comment on above: Performed By: #### C BCMAN #### [facility] [address] [place] [address] Dr. Julius Greer Sally Parapsilosis Not detected Normal NOT DETECTED [facility] Comment on above: Performed By: #### C BCMAN #### [facility] [address] [place] [address] Dr. Julius Greer Sally Tropicalis Not detected Normal NOT DETECTED [facility] Comment on above: Performed By: #### C BCMAN #### [facility] [address] [place] [address] Dr. Julius Greer CTX-M Resistant Gene Not detected Normal NOT DETECTED [facility] Comment on above: Performed By: #### C BCMAN #### [facility] [address] [place] [address] Dr. Julius Greer E. Cloacae complex Not detected Normal NOT DETECTED [facility] Comment on above: Performed By: #### C BCMAN #### [facility] [address] [address] [address] Julius Greer E. faecalis Not detected Normal NOT DETECTED [facility] Comment on above: Performed By: #### C BCMAN #### [facility] [address] [place] [address] Dr. Julius Greer E. faecium Not detected Normal NOT DETECTED [facility] Comment on above: Performed By: #### C BCMAN #### [facility] [address] [place] [address] Dr. Julius Greer Enterobacteriaceae Detected Critically abnormal NOT DETECTED [facility] Comment on above: Performed By: #### C BCMAN #### [facility] [address] [place] [address] Dr. Julius Greer Escherichia coli Not detected Normal NOT DETECTED [facility] Comment on above: Performed By: #### C BCMAN #### [facility] [address] [place] [address] Dr. Julius Greer H. influenzae Not detected Normal NOT DETECTED [facility] Comment on above: Performed By: #### C BCMAN #### [facility] [address] [place] [address] Dr. Julius Greer IMP Resistant Gene Not detected Normal NOT DETECTED [facility] Comment on above: Performed By: #### C BCMAN #### [facility] [address] [place] [address] Dr. Julius Greer K. oxytoca Not detected Normal NOT DETECTED [facility] Comment on above: Performed By: #### C BCMAN #### [facility] [address] [place] [address] Dr. Julius Greer K. pneumoniae Not detected Normal NOT DETECTED [facility] Comment on above: Performed By: #### C BCMAN #### [facility] [address] [place] [address] Dr. Julius Greer Klebsiella aerogenes Not detected Normal NOT DETECTED [facility] Comment on above: Performed By: #### C BCMAN #### [facility] [address] [place] [address] Dr. Julius Greer KPC Resistant Gene Not detected Normal NOT DETECTED [facility] Comment on above: Performed By: #### C BCMAN #### [facility] [address] [place] [address] Dr. Julius Greer List. monocytogenes Not detected Normal NOT DETECTED [facility] Comment on above: Performed By: #### C BCMAN #### [facility] [address] [place] [address] Dr. Julius Greer Mcr-1 Resistant Gene Not Applicable Normal NOT DETECTED [facility] Comment on above: Performed By: #### C BCMAN #### [facility] [address] [place] [address] Dr. Julius Greer mecA/C Not Applicable Normal NOT DETECTED [facility] Comment on above: Performed By: #### C BCMAN #### [facility] [address] [place] [address] Dr. Julius Greer mecA/C MREJ Not Applicable Normal NOT DETECTED [facility] Comment on above: Performed By: #### C BCMAN #### [facility] [address] [place] [address] Dr. Julius Greer N. meningitidis Not detected Normal NOT DETECTED [facility] Comment on above: Performed By: #### C BCMAN #### [facility] [address] [place] [address] Dr. Julius Greer NDM Resistant Gene Not detected Normal NOT DETECTED [facility] Comment on above: Performed By: #### C BCMAN #### [facility] [address] [place] [address] Dr. Julius Greer Oxa-48-like Not detected Normal NOT DETECTED [facility] Comment on above: Performed By: #### C BCMAN #### [facility] [address] [place] [address] Dr. Julius Greer Proteus Detected Critically abnormal NOT DETECTED [facility] Comment on above: Performed By: #### C BCMAN #### [facility] [address] [place] [address] Dr. Julius Greer Pseud. aeruginosa Not detected Normal NOT DETECTED [facility] Comment on above: Performed By: #### C BCMAN #### [facility] [address] [place] [address] Dr. Julius Greer S. maltophilia Not detected Normal NOT DETECTED [facility] Comment on above: Performed By: #### C BCMAN #### [facility] [address] [place] [address] Dr. Julius Greer Salmonella Not detected Normal NOT DETECTED [facility] Comment on above: Performed By: #### C BCMAN #### [facility] [address] [place] [address] Dr. Julius Greer Seratia marcescens Not detected Normal NOT DETECTED [facility] Comment on above: Performed By: #### C BCMAN #### [facility] [address] [place] [address] Dr. Julius Greer Site: Rt Wrist Normal [facility] Comment on above: Performed By: #### C BCMAN #### [facility] [address] [place] [address] Dr. Julius Greer Staph. aureus Not detected Normal NOT DETECTED [facility] Comment on above: Performed By: #### C BCMAN #### [facility] [address] [place] [address] Dr. Julius Greer Staph. epidermidis Not detected Normal NOT DETECTED [facility] Comment on above: Performed By: #### C BCMAN #### [facility] [address] [place] [address] Dr. Julius Greer Staph. lugdunensis Not detected Normal NOT DETECTED [facility] Comment on above: Performed By: #### C BCMAN #### [facility] [address] [place] [address] Dr. Julius Greer Staphylococcus Not detected Normal NOT DETECTED [facility] Comment on above: Performed By: #### C BCMAN #### [facility] [address] [place] [address] Dr. Julius Greer Strep. agalactiae Not detected Normal NOT DETECTED [facility] Comment on above: Performed By: #### C BCMAN #### [facility] [address] [place] [address] Dr. Julius Greer Strep. pneumoniae Not detected Normal NOT DETECTED [facility] Comment on above: Performed By: #### C BCMAN #### [facility] [address] [place] [address] Dr. Julius Greer Strep. pyogenes Not detected Normal NOT DETECTED [facility] Comment on above: Performed By: #### C BCMAN #### [facility] [address] [place] [address] Dr. Julius Greer Streptococcus Not detected Normal NOT DETECTED [facility] Comment on above: Performed By: #### C BCMAN #### [facility] [address] [place] [address] Dr. Julius Greer Alejandra/B Resist. Gene Not Applicable Normal NOT DETECTED [facility] Comment on above: Performed By: #### C BCMAN #### [facility] [address] [place] [address] Dr. Julius Greer VIM Resistant Gene Not detected Normal NOT DETECTED [facility] Comment on above: Performed By: #### C BCMAN #### [facility] [address] [place] [address] Dr. Julius Greer CARDIAC MARKUS 3-6on 2 CK [Catalytic activity/Vol] 130 U/L Normal 39-308 [facility] Comment on above: Performed By: #### C BCMAN #### [facility] [address] [place] [address] Dr. Julius Greer CK.MB [Mass/Vol] 3.69 ng/mL Critically high <=3.60 [facility] Comment on above: Performed By: #### C BCMAN #### [facility] [address] [place] [address] Dr. Julius Greer HSTROP 603.2 pg/mL Critically high 4.0-76.1 [facility] Comment on above: Result Comment: CUT- OFF POINTS HAVE BEEN ESTABLISHED BASED ON THE FOURTH UNIVERSAL DEFINITIONS OF MYOCARDIAL INFARCTION. THE UPPER REFERENCE LIMIT (URL) OF TROPONIN, DEFINED THE 99TH PERCENTILE OF cTnI DISTRIBUTION IN A REFERENCE POPULATION, HAS BEEN CONFIRMED THE DECISION THRESHOLD FOR [place] DIAGNOSIS. Performed By: #### C EMETERIO #### [facility] [address] [place] [address] Dr. Julius Greer CBC W MANUAL DIFFon 03-16-20 ATYPICAL LYMPH # 0.04 103/ul Normal [facility] Comment on above: Performed By: #### C EMETERIO #### [facility] [address] [place] [address] Dr. Julius Greer ATYPICAL LYMPH % 1 % Normal [facility] Comment on above: Performed By: #### C EMETERIO #### [facility] [address] [place] [address] Dr. Julius Greer BAND # 0.2 103/ul Normal 0.0-0.3 [facility] Comment on above: Performed By: #### C EMETERIO #### [facility] [address] [place] [address] Dr. Julius Greer BAND % 5 % Normal 0-5 [facility] Comment on above: Performed By: #### C EMETERIO #### [facility] [address] [place] [address] Dr. Julius Greer BASOM # 0.00 103/ul Normal 0.00-0.10 [facility] Comment on above: Performed By: #### C EMETERIO #### [facility] [address] [place] [address] Dr. Julius Greer BASOM % 0.0 % Critically low 0.2-2.0 [facility] Comment on above: Performed By: #### C EMETERIO #### [facility] [address] [place] [address] Dr. Julius Greer BLAST # Normal [facility] Comment on above: Performed By: #### C EMETERIO #### [facility] [address] [place] [address] Dr. Julius Greer BLAST % Normal [facility] Comment on above: Performed By: #### Zulema STORM #### [facility] [address] [address] [address] Julius Greer CORRECTED WBC Normal 4.0-11.[address] [facility] Comment on above: Performed By: #### C EMETERIO #### [facility] [address] [address] [address] Julius Greer EOS # 0.00 103/ul Normal 0.00-0.70 [facility] Comment on above: Performed By: #### C EMETERIO #### [facility] [address] [address] [address] Julius Greer EOS% 0.0 % Critically low 0.9-7.0 [facility] Comment on above: Performed By: #### C EMETERIO #### [facility] [address] [place] [address] Dr. Julius Greer HCT 39.8 % Critically low 42.0-54.0 [facility] Comment on above: Performed By: #### C EMETREIO #### [facility] [address] [place] [address] Dr. Julius Greer HGB 13.3 g/dl Critically low 14.0-18.0 [facility] Comment on above: Performed By: #### C EMETERIO #### [facility] [address] [place] [address] Dr. Julius Greer LYMPHM # 0.43 103/ul Critically low 1.20-3.80 [facility] Comment on above: Performed By: #### C EMETERIO #### [facility] [address] [address] [address] Julius Greer LYMPHM% 11.0 % Critically low 20.5-60.0 [facility] Comment on above: Performed By: #### C EMETERIO #### [facility] [address] [place] [address] Dr. Julius Greer MCH 29.9 pg Normal 25.9-34.0 [facility] Comment on above: Performed By: #### C EMETERIO #### [facility] [address] [place] [address] Dr. Julius Greer MCHC 33.4 g/dl Normal 29.9-35.2 [facility] Comment on above: Performed By: #### C BCMAN #### [facility] [address] [place] [address] Dr. Julius Greer MCV 89.4 fL Normal 80.0-94.0 [facility] Comment on above: Performed By: #### C BCMAN #### [facility] [address] [place] [address] Dr. Julius Greer METAMYELOCYTE # Normal [facility] Comment on above: Performed By: #### C BCMAN #### [facility] [address] [place] [address] Dr. Julius Greer METAMYELOCYTE % Normal [facility] Comment on above: Performed By: #### C BCMAN #### [facility] [address] [place] [address] Dr. Julius Greer MONOM# 0.08 103/ul Critically low 0.30-0.80 [facility] Comment on above: Performed By: #### C BCMAN #### [facility] [address] [place] [address] Dr. Julius Greer MONOM% 2.0 % Normal 1.7-12.0 [facility] Comment on above: Performed By: #### C BCMAN #### [facility] [address] [place] [address] Dr. Julius Greer MPV 9.6 fL Normal 9.5-13.5 [facility] Comment on above: Performed By: #### C BCMAN #### [facility] [address] [place] [address] Dr. Julius Greer MYELOCYTE # Normal [facility] Comment on above: Performed By: #### C BCMAN #### [facility] [address] [place] [address] Dr. Julius Greer MYELOCYTE % Normal [facility] Comment on above: Performed By: #### C BCMAN #### [facility] [address] [place] [address] Dr. Julius Greer NRBC Normal [facility] Comment on above: Performed By: #### C EMETREIO #### [facility] [address] [address] [address] Julius Greer PLT 130 103/ul Critically low 150-450 [facility] Comment on above: Performed By: #### C EMETERIO #### [facility] [id number] Julius Greer RBC 4.45 106/ul Critically low 4.70-6.10 [facility] Comment on above: Performed By: #### C EMETERIO #### [facility] [address] [address] [address] Julius Greer RDW 12.1 % Normal 11.0-15.0 [facility] Comment on above: Performed By: #### C EMETERIO #### [facility] [address] [address] [address] Julius Greer SEG # 3.16 103/ul Normal 1.40-6.50 [facility] Comment on above: Performed By: #### C EMETERIO #### [facility] [address] [address] [address] Julius Greer SEG % 81.0 % Critically high 43.0-75.0 [facility] Comment on above: Performed By: #### C EMETERIO #### [facility] [address] [address] [address] Julius Greer WBC 3.9 103/ul Critically low 4.0-11.0 [facility] Comment on above: Performed By: #### C EMETERIO #### [facility] [address] [place] [address] Dr. Julius Greer CRPon 03-16-2022 CRP 27.4 mg/dL Critically high <=1.0 [facility] Comment on above: Performed By: #### S EDR #### [facility] [address] [address] [address] ABD/PELVIS WO CONon 03-16 CT ABD/PELVIS WO CON CT ABDOMEN/PELVIS WITHOUT IV CONTRAST. INDICATION: Fever and chills status [...] DORCAS PATEL Date: 2022-03-16 18:46 Normal [facility]on SARS-CoV-2 (COVID-19) RNA RAYMON+probe Ql (Unsp spec) Not detected Normal NOT DETECTED [facility] Comment on above: Result Comment: When diagnostic [...] for this test is supported by the Stakeholder Manager of Health and Human Service's declaration that [...] longer be used). Performed By: #### C VDTB #### [facility] [address] [place] [address] Dr. Julius Greer ER URINE PROFILEon 2 Bilirubin Ql (U) Negative Normal NEGATIVE [facility] Comment on above: Performed By: #### C FRANCMAN #### [facility] [address] [place] [address] Dr. Julius Greer Clarity (U) CLEAR Normal CLEAR [facility] Comment on above: Performed By: #### C FRANCMAN #### [facility] [address] [place] [address] Dr. Julius Greer Color (U) DK. ORANGE Abnormal YELLOW [facility] Comment on above: Performed By: #### C EMETERIO #### [facility] [address] [place] [address] Dr. Julius Greer ERUAHD A micrscopic examina tion will be performed if indicated. Normal [facility] Comment on above: Performed By: #### C EMETERIO #### [facility] [address] [place] [address] Dr. Julius Greer Glucose Ql (U) 500 mg/dl Abnormal NEGATIVE [facility] Comment on above: Performed By: #### C EMETERIO #### [facility] [address] [place] [address] Dr. Julius Greer Hemoglobin Ql (U) LARGE Abnormal NEGATIVE [facility] Comment on above: Performed By: #### C EMETERIO #### [facility] [address] [place] [address] Dr. Julius Greer Ketones Ql (U) 15 mg/dl Abnormal NEGATIVE [facility] Comment on above: Performed By: #### C EMETERIO #### [facility] [address] [place] [address] Dr. Julius Greer LEUKOCYTES SMALL Abnormal NEGATIVE [facility] Comment on above: Performed By: #### C EMETERIO #### [facility] [address] [place] [address] Dr. Julius Greer Nitrite Ql (U) Positive Abnormal NEGATIVE [facility] Comment on above: Performed By: #### C EMETERIO #### [facility] [address] [place] [address] Dr. Julius Greer pH (U) 8.5 [pH] Normal 5-9 [facility] Comment on above: Performed By: #### C EMETERIO #### [facility] [address] [place] [address] Dr. Julius Greer Protein (U) [Mass/Vol] 100 mg/dL Abnormal NEGAT HAYDEE/ TRACE [facility] Comment on above: Performed By: #### C EMETERIO #### [facility] [address] [place] [address] Dr. Julius Greer SPEC GRAVITY 1.020 Normal 1.005-<=1.0 25 [facility] Comment on above: Performed By: #### C EMETERIO #### [facility] [address] [place] [address] Dr. Julius Greer UR MICRO IND INDICATED Normal [facility] Comment on above: Performed By: #### C EMETERIO #### [facility] [address] [place] [address] Dr. Julius Greer Urobilinogen Qn (U) 1.0 {Wilson'U}/dL Normal 0.2 - 1. 0 [facility] Comment on above: Performed By: #### C EMETERIO #### [facility] [address] [place] [address] Dr. Julius Greer LACTATE/LACTIC ACIDon 2021 Lactate [Moles/Vol] 2.3 mmol/L Critically high 0.4-1.9 [facility] Comment on above: Performed By: #### C EMETERIO #### [facility] [address] [place] [address] Dr. Julius Greer Lactate [Moles/Vol] 4.1 mmol/L Critically high 0.4-1.9 [facility] Comment on above: Performed By: #### L ACT #### [facility] [address] [place] [address] Dr. Julius Greer PH VENOUS BLOODon 03-16-2022 PCO2 VENOUS 29.6 mmHg Critically low 40.0-52.0 [facility] Comment on above: Performed By: #### P HVEN #### [facility] [address] [place] [address] Dr. Julius Greer pH VENOUS 7.428 Normal 7.330-7.430 [facility] Comment on above: Performed By: #### P HVEN #### [facility] [address] [place] [address] Dr. Julius Greer POINT OF CARE GLUCOSEon Glucose [Mass/Vol] 314 mg/dL Critically high 74-106 [facility] Comment on above: Performed By: #### P OCGLUC #### [facility] [address] [place] [address] Dr. Julius Greer PROF 14(COMP METB)on 022 Albumin [Mass/Vol] 2.8 g/dL Critically low 3.4-5.0 [facility] Comment on above: Performed By: #### S EDR #### [facility] [address] [place] [address] Dr. Julius Greer Albumin/Globulin [Mass ratio] 0.8 {ratio} Normal [facility] Comment on above: Performed By: #### S EDR #### [facility] [address] [place] [address] Dr. Julius Greer ALP [Catalytic activity/Vol] 80 U/L Normal 46-116 [facility] Comment on above: Performed By: #### S EDR #### [facility] [address] [place] [address] Dr. Julius Greer ALT [Catalytic activity/Vol] 14 U/L Critically low 16-63 [facility] Comment on above: Performed By: #### S EDR #### [facility] [address] [place] [address] Dr. Julius Greer Anion gap [Moles/Vol] 14.7 mmol/L Normal [facility] Comment on above: Performed By: #### S EDR #### [facility] [address] [address] [address] Julius Greer AST [Catalytic activity/Vol] 20 U/L Normal 15-37 [facility] Comment on above: Performed By: #### S EDR #### [facility] [address] [address] [address] Julius Greer Bilirubin [Mass/Vol] 0.6 mg/dL Normal 0.2-1.0 [facility] Comment on above: Performed By: #### S EDR #### [facility] [address] [address] [address] Julius Greer Calcium [Mass/Vol] 8.5 mg/dL Normal 8.5-10.1 [facility] Comment on above: Performed By: #### S EDR #### [facility] [address] [address] [address] Julius Greer Chloride [Moles/Vol] 96 mmol/L Critically low 98-107 [facility] Comment on above: Performed By: #### S EDR #### [facility] [address] [address] [address] Julius Greer CO2 [Moles/Vol] 19.7 mmol/L Critically low 21.0-32.0 [facility] Comment on above: Performed By: #### S EDR #### [facility] [address] [address] [address] Julius Greer Creatinine [Mass/Vol] 1.26 mg/dL Normal 0.70-1.30 [facility] Comment on above: Performed By: #### S EDR #### [facility] [address] [address] [address] Julius Greer EGFR-AF KENYAN >60 Normal >=60 [facility] Comment on above: Performed By: #### S EDR #### [facility] [address] [address] [address] Julius Greer EGFR-NON AF KENYAN 56 mL/min/1.73m2 Critically low >=60 [facility] Comment on above: Performed By: #### S EDR #### [facility] [address] [address] [address] Julius Greer Globulin (S) [Mass/Vol] 3.6 g/dL Normal [facility] Comment on above: Performed By: #### S EDR #### [facility] [address] [address] [address] Julius Greer Glucose [Mass/Vol] 311 mg/dL Critically high 74-106 [facility] [place] Comment on above: Performed By: #### S EDR #### [facility] [address] [address] [address] Julius Greer Potassium [Moles/Vol] 3.4 mmol/L Critically low 3.5-5.1 [facility] Comment on above: Performed By: #### S EDR #### [facility] [address] [place] [address] Dr. Julius Greer Protein [Mass/Vol] 6.4 g/dL Normal 6.4-8.2 [facility] Comment on above: Performed By: #### S EDR #### [facility] [address] [address] [address] Julius Greer Sodium [Moles/Vol] 127 mmol/L Critically low 136-145 [facility] Comment on above: Performed By: #### S EDR #### [facility] [address] [address] [address] Julius Greer Urea nitrogen [Mass/Vol] 19.0 mg/dL Critically high 7.0-18.0 [facility] Comment on above: Performed By: #### S EDR #### [facility] [address] [address] [address] Julius Greer Urea nitrogen/Creatinine [Mass ratio] 15.1 mg/mg Normal [facility] Comment on above: Performed By: #### S EDR #### [facility] [address] [address] [address] Julius rGeer PROTIMEon 03-16-2022 INR Coag (PPP) [Relative time] 1.38 {INR} Normal [facility] Comment on above: Performed By: #### P T, PTT #### [facility] [address] [place] [address] Dr. Julius Greer INR GUIDELINES SEE BELOW Normal [facility] Comment on above: Result Comment: PETROS RED INR: 2.0 - 3.0 CONDITIONS NOT LISTED BELOW 2.5 - 3.5 FOR PROSTHETIC HEART VALVE REPLACEMENT 2.5 - 3.5 RECURRENT THROMBOSIS Performed By: #### P T, PTT #### [facility] [address] [address] [address] Julius Greer PT Coag (PPP) [Time] 14.6 s Critically high 9.0-11.6 [facility] Comment on above: Performed By: #### P T, PTT #### [facility] [address] [place] [address] Dr. Julius Greer PTTon 03-16-2022 aPTT Coag (Bld) [Time] 36.2 s Normal 22.3-36.2 [facility] Comment on above: Performed By: #### P T, PTT #### [facility] [address] [place] [address] Dr. Julius Greer [facility] 62 mm/hr Critically high <=20 [facility] Comment on above: Performed By: #### S EDR #### [facility] [address] [place] [address] Dr. Julius Greer TROPONIN, HIGH SENSITIVITYon 03-16-2022 HSTROP 651.3 pg/mL Critically high 4.0-76.1 [facility] Comment on above: Result Comment: CUT- OFF POINTS HAVE BEEN ESTABLISHED BASED ON THE FOURTH UNIVERSAL DEFINITIONS OF MYOCARDIAL INFARCTION. THE UPPER REFERENCE LIMIT (URL) OF TROPONIN, DEFINED THE 99TH PERCENTILE OF cTnI DISTRIBUTION IN A REFERENCE POPULATION, HAS BEEN CONFIRMED THE DECISION THRESHOLD FOR [place] DIAGNOSIS. Performed By: #### S EDR #### [facility] [address] [place] [address] Dr. Julius Greer URINE MICROSCOPIC ONLYon BACTERIA TRACE Abnormal NONE SEEN [facility] Comment on above: Performed By: #### C BCMAN #### [facility] [address] [place] [address] Dr. Julius Greer Bacteria identified Cx Nom (U) INDICATED Normal [facility] Comment on above: Performed By: #### C BCMAN #### [facility] [address] [place] [address] Dr. Julius Greer CAST SEEN Abnormal NONE SEEN [facility] Comment on above: Performed By: #### C BCMAN #### [facility] Laboratory [address] [place] [address] Dr. Julius Greer Crystals LM Nom (Urine sed) NONE SEEN Normal NONE SEEN [facility] Comment on above: Performed By: #### C BCMAN #### [facility] [address] [place] [address] Dr. Julius Greer Epithelial cells LM Ql (Urine sed) FEW Abnormal NONE SEEN /RARE [facility] Comment on above: Performed By: #### C BCMAN #### [facility] [address] [place] [address] Dr. Julius Greer HYALINE CAST RARE Normal [facility] Comment on above: Performed By: #### C BCMAN #### [facility] [address] [place] [address] Dr. Julius Greer MUCOUS NONE SEEN Normal NONE SEEN [facility] Comment on above: Performed By: #### C BCMAN #### [facility] [address] [place] [address] Dr. Julius Greer RBC 0-2 Normal 0-2 [facility] Comment on above: Performed By: #### C BCMAN #### [facility] [address] [place] [address] Dr. Julius Greer XR CHEST 1 Von [...] Marc SHEARER Date: 2022-03-16 20:19 Normal [facility] CT ABD/PELV WO W CONon 03-06 CT [...] OLIVIA SERRANO Date: 2022-03-06 07:43 Normal [facility] CREATININEon 03-03-2022 Creatinine [Mass/Vol] 0.83 mg/dL Normal 0.70-1.30 [facility] Comment on above: Performed By: #### C STU #### [facility] [address] [place] [address] Dr. Julius Greer EGFR-AF KENYAN >60 Normal >=60 [facility] Comment on above: Performed By: #### C STU #### [facility] [address] [place] [address] Dr. Julius Greer EGFR-NON AF KENYAN >60 Normal >=60 [facility] Comment on above: Performed By: #### C STU #### [facility] [address] [address] [address] Julius Greer PTon 12-16-2021 INR Coag (PPP) [Relative time] 1.5 {INR} Normal [facility] Comment on above: Result Comment: Non-therapeutic Range: INR = 0.9-1.2 Therapeutic Range: Moderate Anticoagulant Intensity: INR = 2.0-3.0 High Anticoagulant Intensity: INR = 2.5-3.5 Performed By: #### P T #### [facility] [address] [place] [address] Teletypesetter: Michael Méndez MD PT Coag (PPP) [Time] 17.9 s High 11.5-14.2 [facility] Comment on above: Performed By: #### P T #### [facility] [address] [place] [address] Teletypesetter: Michael Méndez MD Hemoglobin A1Con 12-02-2021 Glucose [Mass/Vol] 189 mg/dL Normal [facility] Comment on above: Result Comment: The ADA and AACC recommend providing the estimated average glucose result to permit better patient understanding of their HBA1c result. Performed By: #### L IPR, GLYHGB, PSAS #### [facility] [address] [place] [address] Teletypesetter: Perico Murray MD #### CP, CDP #### [facility] [address] [place] [address] Teletypesetter: Michael Méndez MD HbA1c (Bld) [Mass fraction] 8.2 % High 4.0-6.0 [facility] Comment on above: Performed By: #### L IPR, GLYHGB, PSAS #### [facility] [address] [place] [address] Teletypesetter: Perico Murray MD #### CP, CDP #### [facility] [address] [place] [address] Teletypesetter: Michael Méndez MD CBC with Auto Differentialon 12-01-2021 Absolute Eos # 0.06 [facility] Absolute Immature Granulocyte [facility] Absolute Lymph # 1.87 [facility] Absolute [place] # 0.71 [facility] Basophils Absolute [facility] Basophils/100 WBC (Bld) 0 % 0 - 2 % [facility] Eosinophils/100 WBC (Bld) 1 % 1 - 4 % [facility] Hematocrit (Bld) [Volume fraction] 36.5 % Low 40.7 - 50.3 % [facility] Hemoglobin (Bld) [Mass/Vol] 12.0 g/dL Low 13 - 17 g/dL [facility] Immature granulocytes/100 WBC (Bld) 0 % [address] [facility] Interpretation and review of laboratory results Abnormal [facility] Lymphocytes/100 WBC (Bld) 22 % Low 24 - 43 % [facility] MCH (RBC) [Entitic mass] 30.6 pg 25.2 - 33.[address] [facility] MCHC (RBC) [Mass/Vol] 32.9 g/dL 28.4 - 34.8 g/dL [facility] MCV (RBC) [Entitic vol] 93.1 fL 82.6 - 102.[address] [facility] Monocytes/100 WBC (Bld) 8 % 3 - 12 % [facility] NRBC Automated 0.0 0.0 per [address] [facility] Platelet distribution width (Bld) [Ratio] 12.4 % 11.8 - 14.4 % [facility] Platelet mean volume (Bld) [Entitic vol] 9.1 fL 8.1 - 13.[address] [facility] Platelets (Bld) [#/Vol] 204 10*3/uL [facility] RBC (Bld) [#/Vol] 3.92 10*6/uL Low 4.21 - 5.7 7 m/uL [facility] Segmented neutrophils/100 WBC (Bld) 69 % High 36 - 65 % [facility] Segs Absolute 6.[address] [facility] WBC (Bld) [#/Vol] 8.7 10*3/uL [facility] CBC with Diffon 12-01-2021 Abs. Basophil <0.03 Normal 0.00-0.20 [facility] Comment on above: Performed By: #### L IPR, GLYHGB, PSAS #### [place] [address] Teletypesetter: Perico Murray MD #### CP, CDP #### [address] [place] [phone] Teletypesetter: Michael Méndez MD Abs.Imm.Granulocyte <0.03 Normal 0.00-0.30 [facility] Comment on above: Performed By: #### L IPR, GLYHGB, PSAS #### [place] [phone] Teletypesetter: Perico Murray MD #### CP, CDP #### [address] [place] [phone] Teletypesetter: Michael Méndez MD Abs.Neutrophil (Seg) 6.02 k/uL Normal 1.50-8.10 [facility] Comment on above: Performed By: #### L IPR, GLYHGB, PSAS #### [place] [address] Teletypesetter: Perico Murray MD #### CP, CDP #### [address] [place] [phone] Teletypesetter: Michael Méndez MD Basophils/100 WBC (Bld) 0 % Normal 0-2 [facility] Comment on above: Performed By: #### L IPR, GLYHGB, PSAS #### [address] [address] Teletypesetter: Perico Murray MD #### CP, CDP #### [address] [place] [phone] Teletypesetter: Michael Méndez MD Eosinophils (Bld) [#/Vol] 0.06 10*3/uL Normal 0.00-0.44 [facility] Comment on above: Performed By: #### L IPR, GLYHGB, PSAS #### [address] [phone] Teletypesetter: Perico Murray MD #### CP, CDP #### [address] [place] [phone] Teletypesetter: Michael Méndez MD Eosinophils/100 WBC (Bld) 1 % Normal 1-4 [facility] Comment on above: Performed By: #### L IPR, GLYHGB, PSAS #### [address] [address] Teletypesetter: Perico Murray MD #### CP, CDP #### [address] [place] [phone] Teletypesetter: Michael Méndez MD Erythrocyte distribution width (RBC) [Ratio] 12.4 % Normal 11.8-14.4 [facility] Comment on above: Performed By: #### L IPR, GLYHGB, PSAS #### [address] [address] Teletypesetter: Perico Murray MD #### CP, CDP #### [address] [place] [phone] Teletypesetter: Michael Méndez MD Hematocrit (Bld) [Volume fraction] 36.5 % Low 40.7-50.3 [facility] Comment on above: Performed By: #### L IPR, GLYHGB, PSAS #### [address] [address] Teletypesetter: Perico Murray MD #### CP, CDP #### [address] [place] [phone] Teletypesetter: Michael Méndez MD Hemoglobin (Bld) [Mass/Vol] 12.0 g/dL Low 13.0-17.0 [facility] Comment on above: Performed By: #### L IPR, GLYHGB, PSAS #### [address] [phone] Teletypesetter: Perico Murray MD #### CP, CDP #### [address] [place] [address] Teletypesetter: Michael Méndez MD Immature granulocytes/100 WBC (Bld) 0 % Normal 0 [facility] Comment on above: Performed By: #### L IPR, GLYHGB, PSAS #### [address] [address] Teletypesetter: Perico Murray MD #### CP, CDP #### [address] [place] [phone] Teletypesetter: Michael Méndez MD Lymphocytes (Bld) [#/Vol] 1.87 10*3/uL Normal 1.10-3.70 [facility] Comment on above: Performed By: #### L IPR, GLYHGB, PSAS #### [address] [address] Teletypesetter: Perico Murray MD #### CP, CDP #### [address] [place] [phone] Teletypesetter: Michael Méndez MD Lymphocytes/100 WBC (Bld) 22 % Low 24-43 [facility] Comment on above: Performed By: #### L IPR, GLYHGB, PSAS #### [address] [phone] Teletypesetter: Perico Murray MD #### CP, CDP #### [address] [place] [phone] Teletypesetter: Michael Méndez MD MCH (RBC) [Entitic mass] 30.6 pg Normal 25.2-33.5 [facility] Comment on above: Performed By: #### L IPR, GLYHGB, PSAS #### [address] [phone] Teletypesetter: Perico Murray MD #### CP, CDP #### [address] [place] [phone] Teletypesetter: Michael Méndez MD MCHC (RBC) [Mass/Vol] 32.9 g/dL Normal 28.4-34.8 [facility] Comment on above: Performed By: #### L IPR, GLYHGB, PSAS #### [address] [phone] Teletypesetter: Perico Murray MD #### CP, CDP #### [address] [place] [phone] Teletypesetter: Michael Méndez MD MCV (RBC) [Entitic vol] 93.1 fL Normal 82.6-102.9 [facility] Comment on above: Performed By: #### L IPR, GLYHGB, PSAS #### [address] [phone] Teletypesetter: Perico Murray MD #### CP, CDP #### [address] [place], [place] [phone] Teletypesetter: Michael Méndez MD Monocytes (Bld) [#/Vol] 0.71 10*3/uL Normal 0.10-1.20 [facility] Comment on above: Performed By: #### L IPR, GLYHGB, PSAS #### [address] [address] Teletypesetter: Perico Murray MD #### CP, CDP #### [address] [place], [place] [phone] Teletypesetter: Michael Méndez MD Monocytes/100 WBC (Bld) 8 % Normal 3-12 [facility] Comment on above: Performed By: #### L IPR, GLYHGB, PSAS #### [address] [address] Teletypesetter: Perico Murray MD #### CP, CDP #### [address] [place], [place] [phone] Teletypesetter: Michael Méndez MD Neutrophil (Seg) 69 % High 36-65 [facility] Comment on above: Performed By: #### L IPR, GLYHGB, PSAS #### [address] [address] Teletypesetter: Perico Murray MD #### CP, CDP #### [address] [place], [place] [phone] Teletypesetter: Michael Méndez MD NRBC Automated 0.0 per 100 WBC Normal 0.0 [facility] Comment on above: Performed By: #### L IPR, GLYHGB, PSAS #### [address] [address] Teletypesetter: Perico Murray MD #### CP, CDP #### [address] [place], [place] [phone] Teletypesetter: Michael Méndez MD Platelet mean volume (Bld) [Entitic vol] 9.1 fL Normal 8.1-13.5 [facility] Comment on above: Performed By: #### L IPR, GLYHGB, PSAS #### [address] [address] Teletypesetter: Perico Murray MD #### CP, CDP #### [address] [place] [phone] Teletypesetter: Michael Méndez MD Platelets (Bld) [#/Vol] 204 10*3/uL Normal 138-453 [facility] Comment on above: Performed By: #### L IPR, GLYHGB, PSAS #### [address] [address] Teletypesetter: Perico Murray MD #### CP, CDP #### [address] [place] [phone] Teletypesetter: Michael Méndez MD RBC (Bld) [#/Vol] 3.92 10*6/uL Low 4.21-5.77 [facility] Comment on above: Performed By: #### L IPR, GLYHGB, PSAS #### [address] [address] Teletypesetter: Perico Murray MD #### CP, CDP #### [address] [place], [place] [phone] Teletypesetter: Michael Méndez MD WBC (Bld) [#/Vol] 8.7 10*3/uL Normal 3.5-11.3 [facility] Comment on above: Performed By: #### L IPR, GLYHGB, PSAS #### [address] [address] Teletypesetter: Perico Murray MD #### CP, CDP #### [address] [place] [address] Teletypesetter: Michael Méndez MD Comp Metabolic Profon 2021 (cont.) Normal [facility] Comment on above: Result Comment: Aver age GFR for 70 or more years old: 75 mL/min/1.73sq m Chronic Kidney Disease: <60 mL/min/1.73sq m Kidney failure: <15 mL/min/1.73sq m eGFR calculated using average adult body mass. Additional eGFR calculator available at: http://www.CareToSave.FreedomPop/multiple_crcl_2011.htm Performed By: #### L IPR, GLYHGB, PSAS #### [address] [phone] Teletypesetter: Perico Murray MD #### CP, CDP #### [address] [place] [address] Teletypesetter: Michael Méndez MD Albumin [Mass/Vol] 3.7 g/dL Normal 3.5-5.2 [facility] Comment on above: Performed By: #### L IPR, GLYHGB, PSAS #### [address] [phone] Teletypesetter: Perico Murray MD #### CP, CDP #### [address] [place] [address] Teletypesetter: Michael Méndez MD Albumin/Glob Ratio 1.4 Normal 1.0-2.5 [facility] Comment on above: Performed By: #### L IPR, GLYHGB, PSAS #### [address] [phone] Teletypesetter: Perico Murray MD #### CP, CDP #### [address] [place] [address] Teletypesetter: Michael Méndez MD Alkaline Phos 77 U/L Normal 40-129 [facility] Comment on above: Performed By: #### L IPR, GLYHGB, PSAS #### [address] [place] [address] Teletypesetter: Perico Murray MD #### CP, CDP #### [facility] [address] [place] [address] Dr. [address] [phone] Teletypesetter: Michael Méndez MD ALT [Catalytic activity/Vol] 15 U/L Normal 5-41 [facility] Comment on above: Performed By: #### L IPR, GLYHGB, PSAS #### [address] [phone] Teletypesetter: Perico Murray MD #### CP, CDP #### [address] [place] [phone] Teletypesetter: Michael Méndez MD Anion gap [Moles/Vol] 11 mmol/L Normal 9-17 [facility] Comment on above: Performed By: #### L IPR, GLYHGB, PSAS #### [address] [address] Teletypesetter: Perico Murray MD #### CP, CDP #### [address] [place] [phone] Teletypesetter: Michael Méndez MD AST [Catalytic activity/Vol] 14 U/L Normal <40 [facility] Comment on above: Performed By: #### L IPR, GLYHGB, PSAS #### [address] [address] Teletypesetter: Perico Murray MD #### CP, CDP #### [address] [place] [phone] Teletypesetter: Michael Méndez MD Bilirubin [Mass/Vol] 0.35 mg/dL Normal 0.3-1.2 [facility] Comment on above: Performed By: #### L IPR, GLYHGB, PSAS #### [address] [address] Teletypesetter: Perico Murray MD #### CP, CDP #### [facility] [address] [place], [place] [phone] Teletypesetter: Michael Méndez MD BUN/CRE Ratio 18 Normal 9-20 [facility] Comment on above: Performed By: #### L IPR, GLYHGB, PSAS #### [address] [address] Teletypesetter: Perico Murray MD #### CP, CDP #### [facility] [address] [place] [address] Dr. [place], [place] [phone] Teletypesetter: Michael Méndez MD Calcium [Mass/Vol] 8.8 mg/dL Normal 8.6-10.4 [facility] Comment on above: Performed By: #### L IPR, GLYHGB, PSAS #### [address] [address] Teletypesetter: Perico Murray MD #### CP, CDP #### [facility] [address] [place] [address] Dr. [place], [place] [phone] Teletypesetter: Michael Méndez MD Chloride [Moles/Vol] 102 mmol/L Normal 98-107 [facility] Comment on above: Performed By: #### L IPR, GLYHGB, PSAS #### [address] [address] Teletypesetter: Perico Murray MD #### CP, CDP #### [facility] [address] [place] [address] Teletypesetter: Michael Méndez MD CO2 [Moles/Vol] 25 mmol/L Normal 20-31 [facility] Comment on above: Performed By: #### L IPR, GLYHGB, PSAS #### [address] [place] [address] Teletypesetter: Perico Murray MD #### CP, CDP #### [facility] [address] [place], [place] [phone] Teletypesetter: Michael Méndez MD Creatinine [Mass/Vol] 0.74 mg/dL Normal 0.70-1.20 [facility] Comment on above: Performed By: #### L IPR, GLYHGB, PSAS #### [address] [address] Teletypesetter: Perico Murray MD #### CP, CDP #### [facility] [address] [place] [address] Dr. [place], [place] [phone] Teletypesetter: Michael Méndez MD GFR, Amer >60 Normal >60 [facility] Comment on above: Performed By: #### L IPR, GLYHGB, PSAS #### [address] [address] Teletypesetter: Perico Murray MD #### CP, CDP #### [facility] [address] [place] [address] Dr. [place], [place] [phone] Teletypesetter: Michael Méndez MD GFR,non Amer >60 Normal >60 [facility] Comment on above: Performed By: #### L IPR, GLYHGB, PSAS #### [address] [address] Teletypesetter: Perico Murray MD #### CP, CDP #### [address] [place], [place] [phone] Teletypesetter: Michael Méndez MD Glucose [Mass/Vol] 182 mg/dL High 70-99 [facility] Comment on above: Performed By: #### L IPR, GLYHGB, PSAS #### [address] [address] Teletypesetter: Perico Murray MD #### CP, CDP #### [address] [place], [place] 7375583 Teletypesetter: Michael Méndez MD Potassium [Moles/Vol] 4.3 mmol/L Normal 3.7-5.3 [facility] Comment on above: Performed By: #### L IPR, GLYHGB, PSAS #### [address] [address] Teletypesetter: Perico Murray MD #### CP, CDP #### [address] [place], [place] [phone] Teletypesetter: Michael Méndez MD Protein [Mass/Vol] 6.4 g/dL Normal 6.4-8.3 [facility] Comment on above: Performed By: #### L IPR, GLYHGB, PSAS #### [address] [address] Teletypesetter: Perico Murray MD #### CP, CDP #### [address] [place], [place] [phone] Teletypesetter: Michael Méndez MD Sodium [Moles/Vol] 138 mmol/L Normal 135-144 [facility] Comment on above: Performed By: #### L IPR, GLYHGB, PSAS #### [address] [address] Teletypesetter: Perico Murray MD #### CP, CDP #### [address] [place], [place] [phone] Teletypesetter: Michael Méndez MD Staging: Normal [facility] Comment on above: Result Comment: Stag e 1: Some kidney damage normal GFR Stage 2: Mild kidney damage GFR 60-89 Stage 3: Moderate kidney damage GFR 30-59 Stage 4: Severe kidney damage GFR 15-29 Stage 5: Severe kidney damage GFR <15 ESRD - chronic treatment by dialysis or transplant Performed By: #### L IPR, GLYHGB, PSAS #### [facility] [address] [place], [place] [phone] Teletypesetter: Perico Murray MD #### CP, CDP #### [facility] [address] [place] [address] [place] [address] Teletypesetter: Michael Méndez MD Urea nitrogen [Mass/Vol] 13 mg/dL Normal 8-23 [facility] Comment on above: Performed By: #### L IPR, GLYHGB, PSAS #### [facility] [address] [place], [place] [phone] Teletypesetter: Perico Murray MD #### CP, CDP #### [facility] [address] [place] [address] [place] [address] Teletypesetter: Michael Méndez MD [facility] Metabolic Pane [facility] 12-01-2021 Albumin [Mass/Vol] 3.7 g/dL 3.5 - 5.2 g/dL [facility] Albumin/Globulin [Mass ratio] 1.4 {ratio} 1 - 2.[address] [facility] ALP (Bld) [Catalytic activity/Vol] 77 U/L 40 - 129 U/L [facility] ALT [Catalytic activity/Vol] 15 U/L 5 - 41 U/L [facility] Anion gap [Moles/Vol] 11 mmol/L 9 - 17 mmol/L [facility] AST [Catalytic activity/Vol] 14 U/L NINF - 40 U/L [facility] Bilirubin [Mass/Vol] 0.35 mg/dL 0.3 - 1 .2 mg/dL [facility] Calcium [Mass/Vol] 8.8 mg/dL 8.6 - 10. 4 mg/dL [facility] Chloride [Moles/Vol] 102 mmol/L 98 - 10 7 mmol/L [facility] CO2 [Moles/Vol] 25 mmol/L 20 - 31 mmol/L [facility] Creatinine [Mass/Vol] 0.74 mg/dL 0.7 - 1.2 mg/dL [facility] Free PSA/Total PSA [Mass fraction] 6.4 g/dL 6.4 - 8.3 g/dL [facility] GFR >60 60 - PI NF mL/min [facility] GFR Non- >60 60 - PINF mL/min [facility] Glucose [Mass/Vol] 182 mg/dL High 70 - 99 mg/dL [facility] Interpretation and review of laboratory results Abnormal [facility] Potassium [Moles/Vol] 4.3 mmol/L 3.7 - 5.3 mmol/L [facility] Sodium [Moles/Vol] 138 mmol/L 135 - 144 mmol/L [facility] Urea nitrogen (BldV) [Mass/Vol] 13 mg/dL 8 - 23 mg/dL [facility] Urea nitrogen/Creatinine (Bld) [Mass ratio] 18 9 - 20 [facility] Laboratory - Chemistry and C hemistry - challengeon 12-01-2021 GFR/1.73 sq M.predicted MDRD (S/P/Bld) [Vol rate/Area] [facility] Comment on above: Average GFR for 70 o r more years old: 75 mL/min/1.73sq m Chronic Kidney Disease: <60 mL/min/1.73sq m Kidney failure: <15 mL/min/1.73sq m eGFR calculated using average adult body mass. Additional eGFR calculator available at: http://www.CareToSave.FreedomPop/multiple_crcl_2012.htm Stage 1: Some kidney damage normal GFR Stage 2: Mild kidney damage GFR 60-89 Stage 3: Moderate kidney damage GFR 30-59 Stage 4: Severe kidney damage GFR 15-29 Stage 5: Severe kidney damage GFR <15 ESRD - chronic treatment by dialysis or transplant Lipid Panelon 12-01-2021 Cholesterol [Mass/Vol] 79 mg/dL NINF - 200 mg/dL [facility] Comment on above: Cholesterol Guidelines: <200 Desirable 200-240 Borderline >240 Undesirable Cholesterol in HDL [Mass/Vol] 30 mg/dL Low 40 - PINF mg/dL [facility] Comment on above: HDL Guidelines: <40 Undesirable 40-59 Borderline >59 Desirable Cholesterol in LDL [Mass/Vol] 29 mg/dL 0 - 130 mg/dL [facility] Comment on above: LDL Guidelines: <100 Desirable 100-129 Near to/above Desirable 130-159 Borderline >159 Undesirable Direct (measured) LDL and calculated LDL are not interchangeable tests. Cholesterol.total/Chol esterol in HDL [Mass ratio] 2.6 {ratio} NINF - [address] [facility] Interpretation and review of laboratory results Abnormal [facility] Triglyceride [Mass/Vol] 100 [facility] mg/dL [facility] Comment on above: Triglyceride Guidelines: <150 Desirable 150-199 Borderline 200-499 High >499 Very high Based on AHA Guidelines for fasting triglyceride, February 2012. [facility] Lipid Profileon 12-01-2021 Cholesterol [Mass/Vol] 79 mg/dL Normal <200 [facility] Comment on above: Result Comment: Cholesterol Guidelines: <200 Desirable 200-240 Borderline >240 Undesirable Performed By: #### L IPR, GLYHGB, PSAS #### [address] [id number] Teletypesetter: Perico Murray MD #### CP, CDP #### [facility] [address] [place] [address] [place] [address] Teletypesetter: Michael Méndez MD Cholesterol in HDL [Mass/Vol] 30 mg/dL Low >40 [facility] Comment on above: Result Comment: HDL Guidelines: <40 Undesirable 40-59 Borderline >59 Desirable Performed By: #### L IPR, GLYHGB, PSAS #### [address] [phone] Teletypesetter: Perico Murray MD #### CP, CDP #### [facility] [address] [place] [address] [place] [address] Teletypesetter: Michael Méndez MD Cholesterol in LDL [Mass/Vol] 29 mg/dL Normal 0-130 [facility] [facility] Comment on above: Result Comment: LDL Guidelines: <100 Desirable 100-129 Near to/above Desirable 130-159 Borderline >159 Undesirable Direct (measured) LDL and calculated LDL are not interchangeable tests. Performed By: #### L IPR, GLYHGB, PSAS #### [id number] [place] [address] Teletypesetter: Perico Murray MD #### CP, CDP #### [facility] [address] [place] [address] Dr. [place], [place] [id number] Teletypesetter: Michael Méndez MD Cholesterol.total/Chol esterol in HDL [Mass ratio] 2.6 {ratio} Normal <5 [facility] Comment on above: Performed By: #### L IPR, GLYHGB, PSAS #### [address] [address] Teletypesetter: Perico Murray MD #### CP, CDP #### [facility] [address] [place] [address] [place] [address] Teletypesetter: Michael éMndez MD Triglyceride [Mass/Vol] 100 mg/dL Normal <150 [facility] Comment on above: Result Comment: Triglyceride Guidelines: <150 Desirable 150-199 Borderline 200-499 High >499 Very high Based on AHA Guidelines for fasting triglyceride, February 2012. Performed By: #### L IPR, GLYHGB, PSAS #### [address] [address] Teletypesetter: Perico Murray MD #### CP, CDP #### [facility] [address] [place] [address] [place] [address] Teletypesetter: Michael Méndez MD PSA Screeningon 12-01-2021 [facility] PSA, Screeningon 12-01-2021 Prostatic Spec. Ag 1.23 ng/mL Normal <4.1 [facility] Comment on above: Result Comment: The [employer] ECLIA assay is used. Results obtained with different assay methods cannot be used interchangeably. Performed By: #### L IPR, GLYHGB, PSAS #### [facility] [address] [place] [address] Teletypesetter: Perico Murray MD #### CP, CDP #### [facility] [address] [place] [address] Teletypesetter: Michael Méndez MD Otolaryngology Office/Clinic Noteon 07-05-2021 [...] reviewed the patient?s medication list for medication interactions/contraindic ations and/or for upcoming procedures: [yes or no] [...] smoker, quit (more content not included)... Normal [facility] Otolaryngology Office/Clinic Noteon 06-14-2021 Otolaryngology Office/Clinic [...] bolster removed. Left FTSG with good take. [place]owe incision healing well. Nose: External nasal dorsum [...] reviewed the patient?s medication list for medication interactions/contraindic ations and/or for upcoming procedures: [yes or no] [...] 500 unit (more content not included)... Normal [facility] Operative Reporton 2 Operative Report Operative [...] wound defe (more content not included)... Normal [facility] POC Glucose Randomon 022 Glucose [Mass/Vol] 154 mg/dL High 70-99 [facility] Comment on above: Performed By: #### C [id number] #### [address] [place] [address] Glucose [Mass/Vol] 184 mg/dL High 70-99 [facility] Comment on above: Performed By: #### C [id number] #### [address] [place] [address] Glucose [Mass/Vol] 207 mg/dL High 70-99 [facility] Comment on above: Performed By: #### C [id number] #### [address] [address] CoV2 Agon 06-08-2021 Employed in healthcare? Unknown Normal [facility] Comment on above: Performed By: #### P TINR #### [address] [address] Group care resident? Unknown Normal [facility] Comment on above: Performed By: #### P TINR #### [address] [address] In ICU? Unknown Normal [facility] Comment on above: Performed By: #### P TINR #### [address] [address] status? Unknown Normal [facility] Comment on above: Performed By: #### P TINR #### [address] [address] SARS-CoV-2 (COVID-19) RNA RAYMON+probe Ql (Unsp spec) Negative Normal Negative [facility] Comment on above: Result Comment: Nega [...] COVID-19. ADDITIONAL INFORMATION: Testing performed on the [employer] Vitros 3600 using the SARS-CoV-2 Antigen test. Results [...] Administration?s Emergency Use Authorization. HCP Fact Sheet: https://www.fda.gov/media/423328/download Patient Fact Sheet: https://www.fda.gov/media/886000/download Performed By: #### P TINR #### [place] [address] SARS-CoV-2 (COVID-19) RNA RAYMON+probe Ql (Unsp spec) Unknown Normal [facility] Comment on above: Performed By: #### P TINR #### [place] [address] Symptomatic as defined by CDC? Unknown Normal [facility] Comment on above: Performed By: #### P TINR #### [place] [address] .eGFRon 05-27-2021 eGFR Non-AA >60 Normal >=60 [facility] Comment on above: Result Comment: Stag [...] years Performed By: #### E GFR #### [address] [address] eGFR AA >60 Normal >=60 [facility] Comment on above: Result Comment: See comment. Performed By: #### E GFR #### [address] [address] Basic Metabolic Profileon Anion gap [Moles/Vol] 13 mmol/L Normal 7-17 [facility] Comment on above: Performed By: #### P TINR #### [address] [address] Calcium [Mass/Vol] 9.0 mg/dL Normal 8.5-10.3 [facility] Comment on above: Performed By: #### P TINR #### [address] [address] Chloride [Moles/Vol] 103 mmol/L Normal 98-110 [facility] Comment on above: Performed By: #### P TINR #### [address] [address] CO2 [Moles/Vol] 26 mmol/L Normal 22-32 [facility] Comment on above: Performed By: #### P TINR #### [address] [address] Creatinine [Mass/Vol] 0.91 mg/dL Normal 0.61-1.24 [facility] Comment on above: Performed By: #### P TINR #### [address] [address] Glucose [Mass/Vol] 193 mg/dL High 70-99 [facility] Comment on above: Performed By: #### P TINR #### [address] [address] Potassium [Moles/Vol] 3.9 mmol/L Normal 3.4-4.8 [facility] Comment on above: Performed By: #### P TINR #### [address] [address] Sodium [Moles/Vol] 138 mmol/L Normal 133-142 [facility] Comment on above: Performed By: #### P TINR #### [address] [address] Urea nitrogen [Mass/Vol] 14 mg/dL Normal 8-26 [facility] Comment on above: Performed By: #### P TINR #### [address] [address] Urea nitrogen/Creatinine [Mass ratio] 15.4 mg/mg Normal 10.0-20.0 [facility] Comment on above: Performed By: #### P TINR #### [address] [address] CBC w/ Diffon 05-27-2021 Erythrocyte distribution width (RBC) [Ratio] 12.8 % Normal 11.6-14.8 [facility] Comment on above: Performed By: #### C BC #### [address] [address] Hematocrit (Bld) [Volume fraction] 42.6 % Normal 41.0-53.0 [facility] Comment on above: Performed By: #### C BC #### [address] [address] Hemoglobin (Bld) [Mass/Vol] 14.4 g/dL Normal 13.5-17.5 [facility] Comment on above: Performed By: #### C BC #### [address] [address] MCH (RBC) [Entitic mass] 30.2 pg Normal 27.0-35.0 [facility] Comment on above: Performed By: #### C BC #### [address] [address] MCHC 33.7 % Normal 31.0-37.0 [facility] Comment on above: Performed By: #### C BC #### [address] [address] MCV (RBC) [Entitic vol] 89.8 fL Normal 80.0-100.0 [facility] Comment on above: Performed By: #### C BC #### [facility] [address] [place] [address] Platelet 190 x10*3/mcL Normal 150-350 [facility] Comment on above: Performed By: #### C BC #### [address] [address] Platelet mean volume (Bld) [Entitic vol] 6.7 fL Normal 6.7-10.6 [facility] Comment on above: Performed By: #### C BC #### [address] [address] RBC 4.75 x10*6/mcL Normal 4.30-5.80 [facility] Comment on above: Performed By: #### C BC #### [address] [address] WBC 7.7 x10*3/mcL Normal 4.5-11.0 [facility] Comment on above: Performed By: #### C BC #### [address] [address] Diff Autoon 05-27-2021 Baso Absolute 0.0 x10*3/mcL Normal 0.0-0.2 [facility] Comment on above: Performed By: #### P TINR #### [address] [address] Basophils/100 WBC (Bld) 0.1 % Normal 0.0-1.2 [facility] Comment on above: Performed By: #### P TINR #### [address] [address] Eos Absolute 0.1 x10*3/mcL Normal 0.0-0.4 [facility] Comment on above: Performed By: #### P TINR #### [address] [address] Eosinophils/100 WBC (Bld) 0.7 % Normal 0.0-6.1 [facility] Comment on above: Performed By: #### P TINR #### [address] [address] Lymph Absolute 2.1 x10*3/mcL Normal 1.0-4.8 [facility] Comment on above: Performed By: #### P TINR #### [address] [address] Lymphocytes/100 WBC (Bld) 26.7 % Low 27.2-40.8 [facility] Comment on above: Performed By: #### P TINR #### [address] [address] [place] Absolute 0.6 x10*3/mcL Normal 0.3-1.1 [facility] Comment on above: Performed By: #### P TINR #### [address] [address] Monocytes/100 WBC (Bld) 7.9 % Normal 4.7-13.9 [facility] Comment on above: Performed By: #### P TINR #### [address] [address] Neutro Absolute 5.0 x10*3/mcL Normal 1.8-7.7 [facility] Comment on above: Performed By: #### P TINR #### [address] [address] Neutro Auto 64.6 % Normal 47.2-70.8 [facility] Comment on above: Performed By: #### P TINR #### [address] [address] Hgb A1con 01-14-2022 Glucose [Mass/Vol] 192 mg/dL High 68-114 [facility] Comment on above: Result Comment: Math ematical Calc approx. The mean gluc equivalency of A1c Performed By: #### P TINR #### [address] [address] Hgb A1c 8.3 % A1c High 4.0-5.6 [facility] Comment on above: Result Comment: Refe rence Range: 4.0 - 5.6 % Normal 5.7 - 6.4 % Pre-Diabetes > 6.5 % Diabetes Performed By: #### P TINR #### [address] [address] PTon 05-27-2021 INR Coag (PPP) [Relative time] 1.1 {INR} Normal <=3.5 [facility] Comment on above: Result Comment: INR has no normal range. INR Therapeutic range is: 2.0-3.0 (AF, CVA, TIAs, DVT prophylaxis, acute DVT) 2.5-3.5 ([facility] heart valves, recurrent thrombosis/emboli) Performed By: #### P TINR #### [address] [address] PT Coag (PPP) [Time] 11.3 s Normal 9.4-12.1 [facility] Comment on above: Performed By: #### P TINR #### [address] [address] PTTon 05-27-2021 aPTT Coag (Bld) [Time] 22.5 s Normal 20.2-27.0 [facility] Comment on above: Performed By: #### P TT #### [address] [address] XR Chest 2 Viewson 2 XR Chest [...] Electronically Signed in Other Vendor System) Normal [facility] Otolaryngology Office/Clinic Noteon 05-19-2021 Otolaryngology Office/Clinic [...] reviewed the patient?s medication list for medication interactions/contraindic ations and/or for upcoming procedures: [yes or no] [...] Mother. Heart attack: Father. Electronically signed by _ Gerald Villagomez MD, Chi 05/19/21 15:56 EST Normal [facility] CBC Auto DifferentialOrdered By: Mary Beth Pitts on 09-27-2020 Absolute Eos # 0.04 [employer] [facility] Work Phone: Absolute Immature Granulocyte 0.04 [employer] Work Phone: Absolute Lymph # 2.63 [employer] [facility] Work Phone: Absolute [place] # 0.68 [facility] Work Phone: Basophils (Bld) [#/Vol] 10*3/uL [employer] Work Phone: Basophils/100 WBC (Bld) 0 % 0 - 2 % [employer] Work Phone: Differential Type NOT REPORTED [employer] Phone: Eosinophils/100 WBC (Bld) 0 % Low 1 - 4 % [employer] Phone: Hematocrit (Bld) [Volume fraction] 36.8 % Low 40.7 - 50.3 % [employer] Phone: Hemoglobin.gastrointes tinal spec 1 Ql (Stl) 11.7 g/dL Low 13.0 - 17.0 g/dL [employer] Phone: Immature granulocytes/100 WBC (Bld) 0 % 0 [employer] Phone: Interpretation and review of laboratory results Abnormal [employer] Phone: Lymphocytes/100 WBC (Bld) 27 % 24 - 43 % [employer] Phone: MCH (RBC) [Entitic mass] 30.2 pg 25.2 - 33.5 pg [employer] Phone: MCHC (RBC) [Mass/Vol] 31.8 g/dL 28.4 - 34.8 g/dL [employer] Phone: MCV (RBC) [Entitic vol] 95.1 fL 82.6 - 102.9 fL [employer] Phone: Monocytes/100 WBC (Bld) 7 % 3 - 12 % [employer] Phone: NRBC Automated 0.0 0.0 per 100 WBC [employer] Phone: Platelet distribution width (Bld) [Ratio] 13.5 % 11.8 - 14.4 % [employer] Phone: Platelet Estimate NOT REPORTED [employer] Phone: Platelet mean volume (Bld) [Entitic vol] 8.7 fL 8.1 - 13.5 fL [employer] Phone: Platelets (Bld) [#/Vol] 243 10*3/uL [employer] Phone: RBC (Bld) [#/Vol] 3.87 10*6/uL Low 4.21 - 5.7 7 m/uL [employer] Phone: RBC (Bld) [#/Vol] NOT REPORTED [employer] Phone: Segmented neutrophils/100 WBC (Bld) 66 % High 36 - 65 % [employer] Work Phone: Segs Absolute 6.35 [employer] Work Phone: WBC (Bld) [#/Vol] 9.8 10*3/uL [employer] Work Phone: WBC (Bld) [#/Vol] NOT REPORTED [employer] Work Phone: [employer] Work Phone: TIBIA FIBULA LEFTon 04-28-20 20 TIBIA FIBULA LEFT [facility] Department of Radiology [address] [place] [address] == Patient Name: MARILU DAN : 1950 Sex: M Age: Race: White Pt. Location: Patient Status: D Ordered Date: 04/28/2020 12:40:00 PM Completed Date: 04/28/2020 12:44 PM Requesting Provider: SWETHA WINTER Attending Provider: SWETHA WINTER Report Copy To: Signs & Symptoms: S82.242D Displ spiral fx shaft of l tibia, 7thD I10 History: Comments: Evaluate Exam: TIBIA FIBULA LEFT == TIBIA FIBULA LEFT 04/28/2020 12:44 PM CLINICAL [...] bridging. Electronically signed: Terry Diaz. Transcribed by: [email or web address], User Resident: Electronically Signed by: TERRY DIAZ @ 04/29/2020 01:11 PM Normal [facility] Comment on above: Order Comment: Hardw are Evaluation TIBIA FIBULA LEFTon 03-29-20 20 TIBIA FIBULA LEFT [facility] Department of Radiology [address] [place] [id number] == Patient Name: MARILU DAN : 1950 Sex: M Age: Race: White Pt. Location: Patient Status: O Ordered Date: 03/29/2020 12:50:00 PM Completed Date: 03/29/2020 12:50 PM Requesting Provider: SWETHA WINTER Attending Provider: SWETHA WINTER Report Copy To: Signs & Symptoms: S82.242D Displ spiral fx shaft of l tibia, 7thD I10 History: Comments: evaluate Exam: TIBIA FIBULA LEFT == TIBIA FIBULA LEFT 03/29/2020 12:50 PM SIGNS [...] Electronically signed: Katiuska Mo M.D.. Transcribed by: [email or web address], User Resident: Electronically Signed by: KATIUSKA MO @ 03/29/2020 01:27 PM Normal [facility] Comment on above: Order Comment: Hardw are Evaluation TIBIA FIBULA LEFTon 02-23-20 20 TIBIA FIBULA LEFT [facility] Department of Radiology [address] [place] [id number] == Patient Name: MARILU DAN : 1950 Sex: M Age: Race: White Pt. Location: Patient Status: O Ordered Date: 02/23/2020 9:40:00 AM Completed Date: 02/23/2020 09:42 AM Requesting Provider: KENDAL TORRES Attending Provider: KENDAL TORRES Report Copy To: MARY BETH PITTS Signs & Symptoms: Z48.89 Encounter for other specified surgical aftercare I10 History: Comments: evaluate Exam: TIBIA FIBULA LEFT == TIBIA FIBULA LEFT 02/23/2020 9:42 AM CLINICAL [...] Electronically signed: Mary Jane Pendleton. Transcribed by: [email or web address], User Resident: Electronically Signed by: MARY JANE PENDLETON @ 02/23/2020 09:46 AM Normal [facility] Comment on above: Order Comment: Hardw are Evaluation VITAMIN D 25-HYDROXYon 02-22 VITAMIN D 25-OH 31.6 ng/mL Normal 30.0-80.0 [facility] Comment on above: Result Comment: >80. 0 Toxicity possible Performed By: #### 3 0728 ####[facility] [place] [address], [facility] BASIC METABOLIC PANELon 10- Calcium [Mass/Vol] 8.7 mg/dL Normal 8.6-10.3 [facility] Comment on above: Order Comment: No: D o not add to previous draw Performed By: #### 8 6002 #### [facility] [address] [place] [address], [place] Chloride [Moles/Vol] 103 mmol/L Normal 98-107 [facility] Comment on above: Order Comment: No: D o not add to previous draw Performed By: #### 8 6002 #### [facility] [address] [place] [address], [place] CO2 [Moles/Vol] 25 mmol/L Normal 21-31 [facility] Comment on above: Order Comment: No: D o not add to previous draw Performed By: #### 8 6002 #### [facility] [address] [place] [address], [facility] Creatinine [Mass/Vol] 0.72 mg/dL Normal 0.70-1.30 [facility] Comment on above: Order Comment: No: D o not add to previous draw Performed By: #### 8 6002 #### [facility] [address] [place] [address], [place] GFR/1.73 sq M predicted among blacks MDRD (S/P/Bld) [Vol rate/Area] mL/min/{1.73_m2} Normal >60 [facility] Comment on above: Order Comment: No: D o not add to previous draw Result Comment: Calc ulation may not be valid for patients over 70 years Performed By: #### 8 6002 #### [facility] [address] [place] [address], [facility] GFR/1.73 sq M predicted among non-blacks MDRD (S/P/Bld) [Vol rate/Area] mL/min/{1.73_m2} Normal >60 [facility] Comment on above: Order Comment: No: D o not add to previous draw Result Comment: Calc ulation may not be valid for patients over 70 years Performed By: #### 8 6002 #### [facility] [address] [place] [address], [place] Glucose [Mass/Vol] 178 mg/dL High 70-100 [facility] Comment on above: Order Comment: No: D o not add to previous draw Performed By: #### 8 6002 #### [facility] [address] [place] [address], [place] Potassium [Moles/Vol] 4.2 mmol/L Normal 3.5-5.1 [facility] Comment on above: Order Comment: No: D o not add to previous draw Performed By: #### 8 6002 #### [facility] [address] [place] [address], [place] Sodium [Moles/Vol] 136 mmol/L Normal 136-145 [facility] Comment on above: Order Comment: No: D o not add to previous draw Performed By: #### 8 6002 #### [facility] [address] [place] [address], [facility] Urea nitrogen [Mass/Vol] 14 mg/dL Normal 7-25 [facility] Comment on above: Order Comment: No: D o not add to previous draw Performed By: #### 8 6002 #### [facility] [address] [place] [address], [facility] CBC COMPLETE BLOOD COUNTon Erythrocyte distribution width (RBC) [Ratio] 12.3 % Normal 11.5-15.0 [facility] Comment on above: Order Comment: No: D o not add to previous draw Performed By: #### 8 6002 #### [facility] [address] Hematocrit (Bld) [Volume fraction] 30.8 % Low 39.0-50.0 [facility] Comment on above: Order Comment: No: D o not add to previous draw Performed By: #### 8 6002 #### [facility] [address] [address], [facility] Hemoglobin (Bld) [Mass/Vol] 10.6 g/dL Low 13.0-17.0 [facility] Comment on above: Order Comment: No: D o not add to previous draw Performed By: #### 8 6002 #### [facility] [address] [place] [address], [facility] MCH (RBC) [Entitic mass] 30.3 pg Normal 27.0-33.0 [facility] Comment on above: Order Comment: No: D o not add to previous draw Performed By: #### 8 6002 #### [facility] [address] [place] [address], [facility] MCHC (RBC) [Mass/Vol] 34.4 g/dL Normal 32.0-35.0 [facility] Comment on above: Order Comment: No: D o not add to previous draw Performed By: #### 8 6002 #### [facility] [address] [place] [address], [facility] MCV (RBC) [Entitic vol] 88.0 fL Normal 82.0-98.0 [facility] Comment on above: Order Comment: No: D o not add to previous draw Performed By: #### 8 6002 #### [facility] [address] [place] [address], [facility] Nucleated RBC/100 WBC (Bld) [Ratio] 0 % Normal 0-0 [facility] Comment on above: Order Comment: No: D o not add to previous draw Performed By: #### 8 6002 #### [facility] [address] [address], [facility] PLAT CNT 153 10*3/uL Normal 150-400 [facility] Comment on above: Order Comment: No: D o not add to previous draw Performed By: #### 8 6002 #### [facility] [address] [place] [address], [facility] RBC (Bld) [#/Vol] 3.50 10*6/uL Low 4.20-5.70 [facility] Comment on above: Order Comment: No: D o not add to previous draw Performed By: #### 8 6002 #### [facility] [address] [place] [address], [facility] WBC (Bld) [#/Vol] 8.11 10*3/uL Normal 4.00-10.60 [facility] Comment on above: Order Comment: No: D o not add to previous draw Performed By: #### 8 6002 #### [facility] [address] Operative Reporton 0 Operative Report MR#: [id number] I [facility] Pt. Name: Marilu Dan Room #: 3AB [id number] Discharge Date: Birthdate: 1950 OPERATIVE REPORT DATE [...] a 69-year-old male, who initially presented to [facility] Emergency Department with chief complaint of [...] 2 locking screws distally using freehand perfect [place] technique. After the placement of all interlocking [...] Lopez MD Date Trans: 02/14/2020 11:08 A/gomez [id number] Normal [facility] POC GLUCOSE LABon 02-14-2020 Glucose [Mass/Vol] 228 mg/dL High 70-100 [facility] Comment on above: Performed By: #### 8 5499 #### [facility] [address] Glucose [Mass/Vol] 169 mg/dL High 70-100 [facility] Comment on above: Performed By: #### 8 5499 #### [facility] [address] *MRSA/MSSA DNA NASALon 02-12 *MRSA/MSSA DNA NASAL Clinical Report: (D ) Specimen/Source: NASAL SWAB/NARES Collected: 02/13/2020 14:23 Status: Final Last Updated: 02/17/2020 12:22 MSSA DNA (Final) Negative MRSA DNA (Final) Negative Normal [facility] Comment on above: Performed By: #### 3 1595 #### [facility] [address] BASIC METABOLIC PANELon Calcium [Mass/Vol] 9.2 mg/dL Normal 8.6-10.3 [facility] Comment on above: Order Comment: No: D o not add to previous draw Performed By: #### 8 5499 #### [facility] [address] [place] [address], [place] Chloride [Moles/Vol] 102 mmol/L Normal 98-107 [facility] Comment on above: Order Comment: No: D o not add to previous draw Performed By: #### 8 5499 #### [facility] [address] [place] [address], [place] CO2 [Moles/Vol] 29 mmol/L Normal 21-31 [facility] Comment on above: Order Comment: No: D o not add to previous draw Performed By: #### 8 [id number] #### [facility] [address] [place] [address], [place] Creatinine [Mass/Vol] 0.71 mg/dL Normal 0.70-1.30 [facility] Comment on above: Order Comment: No: D o not add to previous draw Performed By: #### 8 5499 #### [facility] [address] [place] [address], [place] GFR/1.73 sq M predicted among blacks MDRD (S/P/Bld) [Vol rate/Area] mL/min/{1.73_m2} Normal >60 [facility] Comment on above: Order Comment: No: D o not add to previous draw Result Comment: Calc ulation may not be valid for patients over 70 years Performed By: #### 8 [id number] #### [facility] [address] [place] [address], [place] GFR/1.73 sq M predicted among non-blacks MDRD (S/P/Bld) [Vol rate/Area] mL/min/{1.73_m2} Normal >60 [facility] Comment on above: Order Comment: No: D o not add to previous draw Result Comment: Calc ulation may not be valid for patients over 70 years Performed By: #### 8 [id number] #### [facility] [address] [place] [address], [place] Glucose [Mass/Vol] 160 mg/dL High 70-100 [facility] Comment on above: Order Comment: No: D o not add to previous draw Performed By: #### 8 5499 #### [facility] [address] [place] [address], [facility] Potassium [Moles/Vol] 4.0 mmol/L Normal 3.5-5.1 [facility] Comment on above: Order Comment: No: D o not add to previous draw Performed By: #### 8 5499 #### [facility] [address] [place] [address], [place] Sodium [Moles/Vol] 136 mmol/L Normal 136-145 [facility] Comment on above: Order Comment: No: D o not add to previous draw Performed By: #### 8 [id number] #### [facility] [address] [place] [address], [place] Urea nitrogen [Mass/Vol] 13 mg/dL Normal 7-25 [facility] Comment on above: Order Comment: No: D o not add to previous draw Performed By: #### 8 [id number] #### [facility] [address] [place] [address], [facility] CBC COMPLETE BLOOD COUNTon Erythrocyte distribution width (RBC) [Ratio] 12.4 % Normal 11.5-15.0 [facility] Comment on above: Order Comment: No: D o not add to previous draw Performed By: #### 8 6002 #### [facility] [address] [place] [address], [place] Hematocrit (Bld) [Volume fraction] 37.6 % Low 39.0-50.0 [facility] Comment on above: Order Comment: No: D o not add to previous draw Performed By: #### 8 6002 #### [facility] [address] [place] [address], [place] Hemoglobin (Bld) [Mass/Vol] 12.8 g/dL Low 13.0-17.0 [facility] Comment on above: Order Comment: No: D o not add to previous draw Performed By: #### 8 6002 #### [facility] [address] [place] [address], [facility] MCH (RBC) [Entitic mass] 30.1 pg Normal 27.0-33.0 [facility] Comment on above: Order Comment: No: D o not add to previous draw Performed By: #### 8 6002 #### [facility] [address] [facility] [address] MCHC (RBC) [Mass/Vol] 34.0 g/dL Normal 32.0-35.0 [facility] Comment on above: Order Comment: No: D o not add to previous draw Performed By: #### 8 6002 #### [facility] [address] [facility] [place] [address], [facility] MCV (RBC) [Entitic vol] 88.5 fL Normal 82.0-98.0 [facility] Comment on above: Order Comment: No: D o not add to previous draw Performed By: #### 8 6002 #### [facility] [address] Nucleated RBC/100 WBC (Bld) [Ratio] 0 % Normal 0-0 [facility] Comment on above: Order Comment: No: D o not add to previous draw Performed By: #### 8 6002 #### [facility] [address] [place] [address], [facility] PLAT CNT 180 10*3/uL Normal 150-400 [facility] Comment on above: Order Comment: No: D o not add to previous draw Performed By: #### 8 6002 #### [facility] [address] [facility] [place] [address], [facility] RBC (Bld) [#/Vol] 4.25 10*6/uL Normal 4.20-5.70 [facility] Comment on above: Order Comment: No: D o not add to previous draw Performed By: #### 8 6002 #### [facility] [address] [place] [address], [facility] WBC (Bld) [#/Vol] 7.58 10*3/uL Normal 4.00-10.60 [facility] Comment on above: Order Comment: No: D o not add to previous draw Performed By: #### 8 6002 #### [facility] [address] [place] [address], [facility] MAGNESIUM BLOODon 02-13-2020 Magnesium [Mass/Vol] 2.0 mg/dL Normal 1.9-2.7 [facility] Comment on above: Order Comment: No: D o not add to previous draw Performed By: #### 8 [id number] #### [facility] [address] [place] [address], [facility] PHOSPHORUS BLOODon 0 Phosphate [Mass/Vol] 3.6 mg/dL Normal 2.5-5.0 [facility] Comment on above: Order Comment: No: D o not add to previous draw Performed By: #### 8 [id number] #### [facility] [address] [place] [address], [facility] POC GLUCOSE LABon 02-13-2020 Glucose [Mass/Vol] 176 mg/dL High 70-100 [facility] Comment on above: Performed By: #### 8 5499 #### [facility] [address] [place] [address], [place] Glucose [Mass/Vol] 134 mg/dL High 70-100 [facility] Comment on above: Performed By: #### 8 5499 #### [facility] [address] [place] [address], [place] Glucose [Mass/Vol] 138 mg/dL High 70-100 [facility] Comment on above: Performed By: #### 8 5499 #### [facility] [address] [place] [address], [facility] Glucose [Mass/Vol] 143 mg/dL High 70-100 [facility] Comment on above: Performed By: #### 8 5499 #### [facility] [address] [place] [address], [facility] Glucose [Mass/Vol] 163 mg/dL High 70-100 [facility] Comment on above: Performed By: #### 8 5499 #### [facility] [address] [place] [address], [facility] TIBIA FIBULA LEFTon 02-13-20 20 TIBIA FIBULA LEFT [facility] Department of Radiology [address] [place] [id number] == Patient Name: MARILU DAN : 1950 Sex: M Age: Race: White Pt. Location: [id number] Patient Status: I Ordered Date: 02/13/2020 8:00:00 PM Completed Date: 02/13/2020 09:04 PM Requesting Provider: BRIANA LOPEZ Attending Provider: MICHAEL BIGGS Report Copy To: Signs & Symptoms: Pain ( specify Location) History: See Comments Comments: Hardware Evaluation Exam: TIBIA FIBULA LEFT == TIBIA FIBULA LEFT 02/13/2020 9:04 PM CLINICAL [...] fracture. Electronically signed: Catalina Pastrana. Transcribed by: [email or web address], User Resident: Electronically Signed by: CATALINA PASTRANA @ 02/13/2020 09:09 PM Normal [facility] Comment on above: Order Comment: Hardw are Evaluation TIBIA FIBULA LEFT [facility] Department of Radiology [address] [place] [id number] == Patient Name: MARILU DAN : 1950 Sex: M Age: Race: White Pt. Location: [address] [place] [address] Patient Status: I Ordered Date: 02/13/2020 7:15:00 AM Completed Date: 02/13/2020 08:58 PM Requesting Provider: JONY STEIN Attending Provider: JONY STEIN Report Copy To: Signs & Symptoms: intra op left tib/fib History: Comments: IM rodding Exam: TIBIA FIBULA LEFT == TIBIA FIBULA LEFT 02/13/2020 8:58 PM CLINICAL [...] review. Electronically signed: Catalina Pastrana. Transcribed by: [email or web address], User Resident: Electronically Signed by: CATALINA PASTRANA @ 02/13/2020 09:12 PM Normal [facility] Comment on above: Order Comment: Hardw are Evaluation *SARS-CoV-2 COVID-19on 02-11 [id number] Not Detected Normal Not Detected [facility] Comment on above: Order Comment: The A ptima SARS-CoV-2 assay is a nucleic acid amplification test intended for the qualitative detection of RNA from SARS-CoV-2 isolated and purified from nasopharyngeal (FUNCTIONAL MANAGER),oropharyngeal (OP), nasal swab, sputum, and bronchoalveolar lavage (BAL) specimens from patients with signs and symptoms of infection who are suspected of COVID-19. Results are for the identification of SARS-CoV-2 RNA. The SARS-CoV-2 RNA is generally detectable during the acute phase of infection. The Aptima SARS-CoV-2 Assay on the [employer] and [employer] Fusion system is intended for use by laboratory personnel specifically instructed and trained in the operation of the [employer] system. The Aptima SARS-CoV-2 assay is [...] information. Performed By: #### 3 1792 #### [facility] [address] [place] [address], [facility] APTTon 02-12-2020 aPTT Coag (Bld) [Time] 27.0 s Normal 25.0-35.0 [facility] Comment on above: Order Comment: No: [...] PURPOSE. Performed By: #### 8 [id number] #### [facility] [address] [place] [address], [facility] BASIC METABOLIC PANELon 10-0 Calcium [Mass/Vol] 9.0 mg/dL Normal 8.6-10.3 [facility] Comment on above: Order Comment: No: D o not add to previous draw Performed By: #### 4 1000, 29895, 75133, 89553 ####[facility] [facility] [place] [address], [facility] Chloride [Moles/Vol] 100 mmol/L Normal 98-107 [facility] Comment on above: Order Comment: No: D o not add to previous draw Performed By: #### 4 1000, 10613, 27116, 04034 ####[facility] [facility] [place] [address], [facility] CO2 [Moles/Vol] 26 mmol/L Normal 21-31 [facility] Comment on above: Order Comment: No: D o not add to previous draw Performed By: #### 4 1000, 42883, 10998, 88646 ####[facility] [facility] [place] [address], [facility] Creatinine [Mass/Vol] 0.80 mg/dL Normal 0.70-1.30 [facility] Comment on above: Order Comment: No: D o not add to previous draw Performed By: #### 4 1000, 72951, 32488, 16126 ####[facility] [place] [address], [facility] GFR/1.73 sq M predicted among blacks MDRD (S/P/Bld) [Vol rate/Area] mL/min/{1.73_m2} Normal >60 [facility] Comment on above: Order Comment: No: D o not add to previous draw Result Comment: Calc ulation may not be valid for patients over 70 years Performed By: #### 4 1000, 14830, 27409, 06302 ####[facility] [place] [address], [facility] GFR/1.73 sq M predicted among non-blacks MDRD (S/P/Bld) [Vol rate/Area] mL/min/{1.73_m2} Normal >60 [facility] Comment on above: Order Comment: No: D o not add to previous draw Result Comment: Calc ulation may not be valid for patients over 70 years Performed By: #### 4 1000, 78540, 91953, 38962 ####[facility] [facility] [place] [address], [facility] Glucose [Mass/Vol] 193 mg/dL High 70-100 [facility] Comment on above: Order Comment: No: D o not add to previous draw Performed By: #### 4 1000, 23254, 21204, 83516 ####[facility] [facility] [place] [address], [facility] Potassium [Moles/Vol] 4.2 mmol/L Normal 3.5-5.1 [facility] Comment on above: Order Comment: No: D o not add to previous draw Performed By: #### 4 1000, 96678, 05926, 27641 ####[facility] [place] [address], [place] Sodium [Moles/Vol] 132 mmol/L Low 136-145 [facility] Comment on above: Order Comment: No: D o not add to previous draw Performed By: #### 4 1000, 80949, 67681, 73186 ####[facility] [place] [address], [place] Urea nitrogen [Mass/Vol] 14 mg/dL Normal 7-25 [facility] Comment on above: Order Comment: No: D o not add to previous draw Performed By: #### 4 1000, 25540, 39876, 89787 ####[facility] [place] [address], [facility] CBC W/DIFFon 02-12-2020 ABS BASOPHILS 0.0 10*3/uL Normal 0.0-0.2 [facility] Comment on above: Performed By: #### 8 5499 #### [facility] [address] [place] [address], [facility] ABS IMM GRANS 0.1 10*3/uL Normal 0.0-0.2 [facility] Comment on above: Performed By: #### 8 5499 #### [facility] [address] [place] [address], [facility] ABS NEUTROPHILS 9.8 10*3/uL High 1.6-7.6 [facility] Comment on above: Performed By: #### 8 5499 #### [facility] [address] [place] [address], [facility] Basophils/100 WBC (Bld) 0.1 % Normal 0.0-1.0 [facility] Comment on above: Performed By: #### 8 5499 #### [facility] [address] [facility] [place] [address], [facility] Eosinophils (Bld) [#/Vol] 0.0 10*3/uL Normal 0.0-0.5 [facility] Comment on above: Performed By: #### 8 5499 #### [facility] [address] [place] [address], [facility] Eosinophils/100 WBC (Bld) 0.1 % Normal 0.0-6.0 [facility] Comment on above: Performed By: #### 8 5499 #### [facility] [address] Erythrocyte distribution width (RBC) [Ratio] 12.0 % Normal 11.5-15.0 [facility] Comment on above: Performed By: #### 8 5499 #### [facility] [address] [facility] [address] Hematocrit (Bld) [Volume fraction] 38.0 % Low 39.0-50.0 [facility] Comment on above: Performed By: #### 8 5499 #### [facility] [address] [facility] Hemoglobin (Bld) [Mass/Vol] 13.0 g/dL Normal 13.0-17.0 [facility] Comment on above: Performed By: #### 8 5499 #### [facility] [address] IMMATURE GRANS 0.5 % Normal 0.0-1.0 [facility] Comment on above: Performed By: #### 8 5499 #### [facility] [address] Lymphocytes (Bld) [#/Vol] 1.3 10*3/uL Normal 1.2-4.0 [facility] Comment on above: Performed By: #### 8 5499 #### [facility] [address] [facility]. [address] Lymphocytes/100 WBC (Bld) 11.1 % Low 20.0-45.0 [facility] Comment on above: Performed By: #### 8 5499 #### [facility] [address] [place] [address], [facility] MCH (RBC) [Entitic mass] 30.0 pg Normal 27.0-33.0 [facility] Comment on above: Performed By: #### 8 5499 #### [facility] [address] [place] [address], [facility] MCHC (RBC) [Mass/Vol] 34.2 g/dL Normal 32.0-35.0 [facility] Comment on above: Performed By: #### 8 5499 #### [facility] [address] [facility] [place] [id number], [facility] MCV (RBC) [Entitic vol] 87.8 fL Normal 82.0-98.0 [facility] Comment on above: Performed By: #### 8 5499 #### [facility] [address] [place] [address], [facility] Monocytes (Bld) [#/Vol] 0.9 10*3/uL Normal 0.1-1.0 [facility] Comment on above: Performed By: #### 8 5499 #### [facility] [address] [place] [address], [facility] MONOS 7.1 % Normal 5.0-12.0 [facility] Comment on above: Performed By: #### 8 5499 #### [facility] [address] [place] [address], [facility] Neutrophils/100 WBC (Bld) 81.1 % High 40.0-72.0 [facility] Comment on above: Performed By: #### 8 5499 #### [facility] [address] [facility] [place] [address], [facility] Nucleated RBC/100 WBC (Bld) [Ratio] 0 % Normal 0-0 [facility] Comment on above: Performed By: #### 8 5499 #### [facility] [address] [place] [address], [facility] PLAT CNT 204 10*3/uL Normal 150-400 [facility] Comment on above: Performed By: #### 8 5499 #### [facility] [address] [place] [id number], [facility] RBC (Bld) [#/Vol] 4.33 10*6/uL Normal 4.20-5.70 [facility] Comment on above: Performed By: #### 8 5499 #### [address] WBC (Bld) [#/Vol] 12.03 10*3/uL High 4.00-10.60 [facility] Comment on above: Performed By: #### 8 5499 #### [facility] [address] [place], [place] [id number] [place] [address] CT LOWER EXTREMITY WO CONTRA ST LEFTon 02-12-2020 CT LOWER EXTREMITY WO CONTRAST LEFT [facility] Department of Radiology [address] [place] [address] == Patient Name: MARILU DAN : 1950 Sex: M Age: Race: White Pt. Location: [address] [place] [address] Patient Status: I Ordered Date: 02/12/2020 6:00:00 PM Completed Date: 02/12/2020 06:27 PM Requesting Provider: JUAN MIGUEL MILES Attending Provider: ANA AYALA Report Copy To: Signs & Symptoms: Fracture History: See Comments Comments: Fractures, please obtain CT of left ankle to rule out fracture extension Exam: CT LOWER EXTREMITY WO CONTRAST LEFT == CT LOWER EXTREMITY WO CONTRAST LEFT 02/12/2020 [...] metatarsals. Electronically signed: Kwaku Gupta. Transcribed by: [email or web address], User Resident: Electronically Signed by: KWAKU GUPTA @ 02/12/2020 06:34 PM Normal [facility] Comment on above: Order Comment: Hardw are Evaluation LIVER BATTERYon 02-12-2020 Albumin [Mass/Vol] 3.9 g/dL Normal 3.5-5.7 [facility] Comment on above: Order Comment: No: D o not add to previous draw Performed By: #### 4 1000, 03609, 01459, 95087 ####[facility] [place] [address], [facility] ALKALINE PHOSPH 64 IU/L Normal 34-104 [facility] Comment on above: Order Comment: No: D o not add to previous draw Performed By: #### 4 1000, 55519, 28362, 73315 ####[facility] [place] [address], [facility] ALT [Catalytic activity/Vol] 10 U/L Normal 7-52 [facility] Comment on above: Order Comment: No: D o not add to previous draw Performed By: #### 4 1000, 66608, 00615, 22070 ####[facility] [place] [address], [facility] AST [Catalytic activity/Vol] 13 U/L Normal 13-39 [facility] Comment on above: Order Comment: No: D o not add to previous draw Performed By: #### 4 1000, 47337, 28763, 31273 ####[facility] [place] [address], [facility] Bilirubin [Mass/Vol] 0.5 mg/dL Normal 0.3-1.0 [facility] Comment on above: Order Comment: No: D o not add to previous draw Performed By: #### 4 1000, 79723, 44281, 82111 ####[facility] [place] [address], [facility] Bilirubin.direct [Mass/Vol] 0.1 mg/dL Normal 0.0-0.2 [facility] Comment on above: Order Comment: No: D o not add to previous draw Performed By: #### 4 1000, 48657, 84497, 95160 ####[facility] [place] [address], [facility] Protein [Mass/Vol] 6.3 g/dL Normal 6.0-8.3 [facility] Comment on above: Order Comment: No: D o not add to previous draw Performed By: #### 4 1000, 14115, 89575, 49716 ####[facility] [place] [address], [place] MAGNESIUM BLOODon 02-12-2020 Magnesium [Mass/Vol] 1.8 mg/dL Low 1.9-2.7 [facility] Comment on above: Order Comment: No: D o not add to previous draw Performed By: #### 4 1000, 59798, 51741, 64279 ####[facility] PHOSPHORUS BLOODon 0 Phosphate [Mass/Vol] 3.4 mg/dL Normal 2.5-5.0 [facility] Comment on above: Order Comment: No: D o not add to previous draw Performed By: #### 4 1000, 57081, 60973, 50954 ####[facility] POC GLUCOSE LABon 02-12-2020 Glucose [Mass/Vol] 285 mg/dL High 70-100 [facility] Comment on above: Performed By: #### 8 5499 #### [facility] [address] PROTHROMBIN TIMEon 0 INR Coag (PPP) [Relative time] 1.36 {INR} High 0.91-1.16 [facility] Comment on above: Order Comment: No: [...] 1995;[id number]. Performed By: #### 8 5499 #### [place] [address], [facility] PT Coag (PPP) [Time] 16.9 s High 12.3-14.8 [facility] Comment on above: Order Comment: No: D o not add to previous draw Result Comment: ALL RESULTS MUST BE INTERPRETED WITH RESPECT TO BLOOD DRAWING ARTIFACT OR DILUTION ERROR OF ANTICOAGULANT AT THE TIME OF SAMPLING. Performed By: #### 8 5499 #### [facility] [address] [place] [address], [facility] TIBIA FIBULA LEFTon 02-12-20 20 TIBIA FIBULA LEFT [facility] Department of Radiology [address] [place] [phone] == Patient Name: MARILU DAN : 1950 Sex: M Age: Race: White Pt. Location: [address] [place] [address] Patient Status: I Ordered Date: 02/12/2020 5:30:00 PM Completed Date: 02/12/2020 06:03 PM Requesting Provider: ELIZABET TOLEDO Attending Provider: ANA AYALA Report Copy To: Signs & Symptoms: Pain History: Comments: Evaluate for FX, post splint Exam: TIBIA FIBULA LEFT == EXAMINATION: TIBIA FIBULA LEFT 02/12/2020 6:03 PM [...] above. Electronically signed: Kwaku Gupta. Transcribed by: [email or web address], User Resident: Electronically Signed by: KWAKU GUPTA @ 02/12/2020 06:13 PM Normal [facility] Comment on above: Order Comment: Hardw are Evaluation TYPE AND SCREENon 02-12-2020 ABO INTERPRETATION A Normal [facility] Comment on above: Performed By: #### 6 2586 ####[facility] [facility] RH INTERPRETATION Positive Normal [facility] Comment on above: Performed By: #### 6 2586 ####[facility] [place] [address], [facility] CBC COMPLETE BLOOD COUNTon 0 11-05-2019 Erythrocyte distribution width (RBC) [Ratio] 11.9 % Normal 11.5-15.0 [facility] Comment on above: Order Comment: No: D o not add to previous draw Performed By: #### 8 5499 #### [facility] [address] [place] [address], [facility] Hematocrit (Bld) [Volume fraction] 37.2 % Low 39.0-50.0 [facility] Comment on above: Order Comment: No: D o not add to previous draw Performed By: #### 8 5499 #### [facility] [address] [place] [address], [facility] Hemoglobin (Bld) [Mass/Vol] 12.6 g/dL Low 13.0-17.0 [facility] Comment on above: Order Comment: No: D o not add to previous draw Performed By: #### 8 [id number] #### [facility] [address] [place] [address], [facility] MCH (RBC) [Entitic mass] 30.4 pg Normal 27.0-33.0 [facility] Comment on above: Order Comment: No: D o not add to previous draw Performed By: #### 8 [id number] #### [facility] [address] [place] [id number], [facility] MCHC (RBC) [Mass/Vol] 33.9 g/dL Normal 32.0-35.0 [facility] Comment on above: Order Comment: No: D o not add to previous draw Performed By: #### 8 [id number] #### [facility] [address] [place] [id number], [facility] MCV (RBC) [Entitic vol] 89.6 fL Normal 82.0-98.0 [facility] Comment on above: Order Comment: No: D o not add to previous draw Performed By: #### 8 [id number] #### [facility] [address] [place] [id number], [facility] Nucleated RBC/100 WBC (Bld) [Ratio] 0 % Normal 0-0 [facility] Comment on above: Order Comment: No: D o not add to previous draw Performed By: #### 8 [id number] #### [facility] [address] [place] [id number], [facility] PLAT CNT 155 10*3/uL Normal 150-400 [facility] Comment on above: Order Comment: No: D o not add to previous draw Performed By: #### 8 [id number] #### [facility] [address] [place] [id number], [facility] RBC (Bld) [#/Vol] 4.15 10*6/uL Low 4.20-5.70 [facility] Comment on above: Order Comment: No: D o not add to previous draw Performed By: #### 8 [id number] #### [facility] [address] [place] [address], [facility] WBC (Bld) [#/Vol] 7.44 10*3/uL Normal 4.00-10.60 [facility] Comment on above: Order Comment: No: D o not add to previous draw Performed By: #### 8 [id number] #### [facility] [address] [place] [address], [place] COMP METABOLIC PANELon 11-04 Albumin [Mass/Vol] 3.3 g/dL Low 3.5-5.7 [facility] Comment on above: Order Comment: No: D o not add to previous draw Performed By: #### 8 [id number] #### [facility] [address] [place] [address], [place] ALKALINE PHOSPH 55 IU/L Normal 34-104 [facility] Comment on above: Order Comment: No: D o not add to previous draw Performed By: #### 8 [id number] #### [facility] [address] [place] [address], [place] ALT [Catalytic activity/Vol] 12 U/L Normal 7-52 [facility] Comment on above: Order Comment: No: D o not add to previous draw Performed By: #### 8 [id number] #### [facility] [address] [place] [address], [place] AST [Catalytic activity/Vol] 15 U/L Normal 13-39 [facility] Comment on above: Order Comment: No: D o not add to previous draw Performed By: #### 8 6002 #### [facility] [address] [place] [address], [place] Bilirubin [Mass/Vol] 0.6 mg/dL Normal 0.3-1.0 [facility] Comment on above: Order Comment: No: D o not add to previous draw Performed By: #### 8 6002 #### [facility] [address] [place] [address], [place] Calcium [Mass/Vol] 8.1 mg/dL Low 8.6-10.3 [facility] Comment on above: Order Comment: No: D o not add to previous draw Performed By: #### 8 6002 #### [facility] [address] [place] [address], [place] Chloride [Moles/Vol] 106 mmol/L Normal 98-107 [facility] Comment on above: Order Comment: No: D o not add to previous draw Performed By: #### 8 6002 #### [facility] [address] [place] [address], [place] CO2 [Moles/Vol] 26 mmol/L Normal 21-31 [facility] Comment on above: Order Comment: No: D o not add to previous draw Performed By: #### 8 6002 #### [facility] [address] [place] [address], [place] Creatinine [Mass/Vol] 0.79 mg/dL Normal 0.70-1.30 [facility] Comment on above: Order Comment: No: D o not add to previous draw Performed By: #### 8 6002 #### [facility] [address] [place] [address], [place] GFR/1.73 sq M predicted among blacks MDRD (S/P/Bld) [Vol rate/Area] mL/min/{1.73_m2} Normal >60 [facility] Comment on above: Order Comment: No: D o not add to previous draw Result Comment: Calc ulation may not be valid for patients over 70 years Performed By: #### 8 6002 #### [facility] [address] [place] [address], [place] GFR/1.73 sq M predicted among non-blacks MDRD (S/P/Bld) [Vol rate/Area] mL/min/{1.73_m2} Normal >60 [facility] Comment on above: Order Comment: No: D o not add to previous draw Result Comment: Calc ulation may not be valid for patients over 70 years Performed By: #### 8 6002 #### [facility] [address] [place] [address], [place] Glucose [Mass/Vol] 155 mg/dL High 70-100 [facility] Comment on above: Order Comment: No: D o not add to previous draw Performed By: #### 8 6002 #### [facility] [address] [place] [address], [place] Potassium [Moles/Vol] 3.8 mmol/L Normal 3.5-5.1 [facility] Comment on above: Order Comment: No: D o not add to previous draw Performed By: #### 8 6002 #### [facility] [address] [place] [address], [place] Protein [Mass/Vol] 5.2 g/dL Low 6.0-8.3 [facility] Comment on above: Order Comment: No: D o not add to previous draw Performed By: #### 8 6002 #### [facility] [address] [place] [address], [place] Sodium [Moles/Vol] 136 mmol/L Normal 136-145 [facility] Comment on above: Order Comment: No: D o not add to previous draw Performed By: #### 8 6002 #### [facility] [address] [place] [address], [place] Urea nitrogen [Mass/Vol] 11 mg/dL Normal 7-25 [facility] Comment on above: Order Comment: No: D o not add to previous draw Performed By: #### 8 6002 #### [facility] [address] [place] [address], [place] Cardiovascular Lab Reporton 11-05-2019 Cardiovascular Lab Report [facility] Patient Name: [facility] MR #: [id number] Physician: Blas Guillen of Keesha Ospina Medicine Service Date: 11/04/2019 Division of Birthdate: 1950 Cardiology Room #: DMITRIY [id number] Adult Cardiovascular Services [facility] [address] [place] [address] Cardiovascular Laboratory Report INDICATION: Marilu Dan is [...] left (Angioseal) common femoral arteries. INTERVENTIONAL CARDIOLOGY TEACHER OF THE HEARING IMPAIRED: Blsa Ospina M.D. CARDIOTHORACIC SURGERY TEACHER OF THE HEARING IMPAIRED: Santana Reagan MD AED TRAINER: Reynaldo Cox M.D. METHODS: Procedure was explained [...] and this was easily upsized to a 6-Gibraltarian x 11 cm sheath. Access was also obtained using the same technique in the left common femoral artery with inner cannula angiography confirming adequate location and upsized to a 6-Gibraltarian x 11 cm sheath. Additional access was obtained in the left common femoral vein and a 6-Gibraltarian x 11 cm sheath was placed. Preclosure was performed in the right common femoral artery using two 6-Gibraltarian ProGlide devices, positioned at 10 o'clock and 2 o'clock locations and the access was upsized to a 10-Gibraltarian sheath. 4000 units of heparin were given at this time. A 6-Gibraltarian angled pigtail catheter was advanced to the ascending aorta from the left common femoral access and a 5-Gibraltarian temporary balloon tipped pacemaker wire was advanced to the right ventricular apex and adequate capture was confirmed with a threshold of 2 milliamps. A 6-Gibraltarian JR4 diagnostic catheter was advanced from the right femoral access over a J-tip wire to the descending aorta and used to place a Lunderquist wire and the access was then serially dilated and upsized to the 14-Gibraltarian Henao eSheath. At this time, full heparinization was given and therapeutic ACT was confirmed during the rest of the procedure and additional heparin given as needed. Using a 6-Gibraltarian JR4 diagnostic catheter and a straight Glidewire, the aortic valve was crossed and the catheter was advanced to the LV and then exchanged over a wire to a 6-Gibraltarian angled pigtail catheter, and after adequate position [...] the valve was deployed slowly across the cher-ae heights aortic valve. The balloon was deflated and then retracted. After ending pacing, the patient recovered a normal sinus rhythm and recovered good pressure. Echocardiography confirmed adequate functioning of the valve, normal left ventricular function, no evidence of aortic insufficiency or paravalvular leak by echocardiography and no evidence of pericardial effusion. The wire was exchanged to a 6-Gibraltarian angled pigtail catheter and measurement of pressures [...] left femoral arteriotomy was managed with a 6-Gibraltarian Angio-Seal device with good hemostasis. The patient [...] Ospina M.D. Date Trans: 11/05/2019 06:35 A/gomez [id number] cc: Mary Beth Pitts M.D. [address] [place] [address] 11-05-2019 Magnesium [Mass/Vol] 1.9 mg/dL Normal 1.9-2.7 [facility] Comment on above: Order Comment: No: D o not add to previous draw Performed By: #### 8 6002 #### [facility] [address] Operative Reporton 0 Operative Report MR#: [id number] [facility] Pt. Name: Marilu Dan Room #: DMITRIY [id number] Discharge Date: Birthdate: 1950 OPERATIVE REPORT DATE OF SURGERY: 11/04/2019 SURGEON: Santana Reagan MD PREOPERATIVE DIAGNOSIS: Severe aortic stenosis, status post coronary artery bypass grafting. POSTOPERATIVE DIAGNOSIS: Severe aortic stenosis, status post coronary artery bypass grafting. OPERATION: Transfemoral transcatheter aortic valve replacement with 26 mm Chidi XT valve. SURGEONS: Dr. Reagan and Dr. Ospina. DISPOSAL WORKER: Dr. Cox. ANESTHESIA: Local anesthesia with [...] was achieved to both femoral arteries with 6-Gibraltarian sheath. A temporary transvenous pacemaker was inserted in the left femoral vein and tested for later use. At this time, pigtail catheter was inserted into the ascending aorta through the left femoral sheath and root aortogram was performed. Anatomical details were measured. Coplanar angles were assessed. Next, the patient was heparinized and the right femoral artery sheath was upsized to a 14-Gibraltarian Henao sheath. Before implanting the sheath, the [...] Reagan MD Date Trans: 11/05/2019 02:18 A/gomez [id number] Normal [facility] POC GLUCOSE LABon 11-05-2019 Glucose [Mass/Vol] 232 mg/dL High 70-100 [facility] Comment on above: Performed By: #### 8 5499 #### [place] [address], [facility] Glucose [Mass/Vol] 148 mg/dL High 70-100 [facility] Comment on above: Performed By: #### 8 5499 #### [address] [place] [address], [facility] Glucose [Mass/Vol] 203 mg/dL High 70-100 [facility] Comment on above: Performed By: #### 8 5499 #### [place] [address], [facility] PORTABLE CHEST 1 VIEWon 10-13 PORTABLE CHEST 1 VIEW [facility] Department of Radiology [address] [place] [id number] == Patient Name: MARILU DAN : 1950 Sex: M Age: Race: White Pt. Location: [place] [address] Patient Status: I Ordered Date: 11/05/2019 10:20:00 AM Completed Date: 11/05/2019 11:03 AM Requesting Provider: GUS BENNETT Attending Provider: SANTANA REAGAN Report Copy To: Signs & Symptoms: Post OP History: Comments: Evaluate for Pneumothorax Exam: PORTABLE CHEST 1 VIEW == PORTABLE CHEST 1 VIEW 11/05/2019 11:03 AM [...] recommendations. Electronically signed: Omid Avery. Transcribed by: [email or web address], User Resident: Electronically Signed by: OMID AVERY @ 11/05/2019 11:07 AM Normal [facility] Comment on above: Order Comment: Hardw are Evaluation PROTHROMBIN TIMEon 0 INR Coag (PPP) [Relative time] 1.06 {INR} Normal 0.91-1.16 [facility] Comment on above: Order Comment: No: [...] 1995;108:[id number]. Performed By: #### 8 6002 #### [facility] [address] PT Coag (PPP) [Time] 13.8 s Normal 12.3-14.8 [facility] Comment on above: Order Comment: No: D o not add to previous draw Result Comment: ALL RESULTS MUST BE INTERPRETED WITH RESPECT TO BLOOD DRAWING ARTIFACT OR DILUTION ERROR OF ANTICOAGULANT AT THE TIME OF SAMPLING. Performed By: #### 8 6002 #### [facility] [address] [place] [address], [facility] ACTIVATED CLOTTING TIMEon ACTIVATED CLOTTING TIME 249 sec High 82-152 [facility] Comment on above: Performed By: #### 3 0739 ####[facility] [facility] [place] [address], [facility] ACTIVATED CLOTTING TIME 249 sec High 82-152 [facility] Comment on above: Performed By: #### 3 0739 ####[facility] [place] [address], [facility] ACTIVATED CLOTTING TIME 225 sec High 82-152 [facility] Comment on above: Performed By: #### 3 0739 ####[facility] [place] [address], [facility] ACTIVATED CLOTTING TIME 201 sec High 82-152 [facility] Comment on above: Performed By: #### 3 0738 #### [facility] [address] [place] [address], [facility] ACTIVATED CLOTTING TIME 172 sec High 82-152 [facility] Comment on above: Performed By: #### 3 0738 #### [facility] [address] [place], [place] [address] [place] [address] BASIC METABOLIC PANELon 06- Calcium [Mass/Vol] 8.9 mg/dL Normal 8.6-10.3 [facility] Comment on above: Performed By: #### 8 6002 #### [facility] [address] [place] [address], [facility] Chloride [Moles/Vol] 105 mmol/L Normal 98-107 [facility] Comment on above: Performed By: #### 8 6002 #### [facility] [address] [place] [address], [facility] CO2 [Moles/Vol] 28 mmol/L Normal 21-31 [facility] Comment on above: Performed By: #### 8 6002 #### [facility] [address] [place] [address], [facility] Creatinine [Mass/Vol] 0.87 mg/dL Normal 0.70-1.30 [facility] Comment on above: Performed By: #### 8 6002 #### [facility] [address] [place] [address], [place] GFR/1.73 sq M predicted among blacks MDRD (S/P/Bld) [Vol rate/Area] mL/min/{1.73_m2} Normal >60 [facility] Comment on above: Result Comment: Calc ulation may not be valid for patients over 70 years Performed By: #### 8 6002 #### [facility] [address] [place] [address], [place] GFR/1.73 sq M predicted among non-blacks MDRD (S/P/Bld) [Vol rate/Area] mL/min/{1.73_m2} Normal >60 [facility] Comment on above: Result Comment: Calc ulation may not be valid for patients over 70 years Performed By: #### 8 6002 #### [facility] [address] [place] [address], [place] Glucose [Mass/Vol] 221 mg/dL High 70-100 [facility] Comment on above: Performed By: #### 8 6002 #### [facility] [address] [place] [address], [place] Potassium [Moles/Vol] 3.9 mmol/L Normal 3.5-5.1 [facility] Comment on above: Performed By: #### 8 6002 #### [facility] [address] [place] [address], [place] Sodium [Moles/Vol] 139 mmol/L Normal 136-145 [facility] Comment on above: Performed By: #### 8 6002 #### [facility] [address] [place] [address], [place] Urea nitrogen [Mass/Vol] 15 mg/dL Normal 7-25 [facility] Comment on above: Performed By: #### 8 6002 #### [facility] [address] [place] [address], [place] PERFUSION BLOOD PANELon 06- BASE EXCESS -2.0 mmol/L Normal -2.0-3.0 [facility] Comment on above: Performed By: #### 3 0738 #### [facility] [address] [place] [address], [facility] Glucose [Mass/Vol] 169 mg/dL High 70-105 [facility] Comment on above: Performed By: #### 3 0738 #### [facility] [address] [place] [address], [facility] Hematocrit (Bld) [Volume fraction] 34 % Low 38-51 [facility] Comment on above: Performed By: #### 3 0738 #### [facility] [address] [place] [address], [facility] Hemoglobin (Bld) [Mass/Vol] 11.6 g/dL Low 12.0-17.0 [facility] Comment on above: Performed By: #### 3 0738 #### [facility] [address] [place] [address], [facility] IONIZED CALCIUM 1.20 mmol/L Normal 1.12-1.32 [facility] Comment on above: Performed By: #### 3 0738 #### [facility] [address] [place] [address], [facility] Oxygen (Bld) [Partial pressure] 410.0 mm[Hg] High 80.0-105.0 [facility] Comment on above: Performed By: #### 3 0738 #### [facility] [address] [place] [address], [facility] PCO2 49.2 mmHg High 35.0-45.0 [facility] Comment on above: Performed By: #### 3 0738 #### [facility] [address] [place] [address], [facility] pH (Bld) 7.31 [pH] Low 7.35-7.45 [facility] Comment on above: Performed By: #### 3 0738 #### [facility] [address] [place] [address], [place] Potassium [Moles/Vol] 4.0 mmol/L Normal 3.5-4.9 [facility] Comment on above: Performed By: #### 3 0738 #### [facility] [address] [place] [address], [place] Sodium [Moles/Vol] 142 mmol/L Normal 138-146 [facility] Comment on above: Performed By: #### 3 0738 #### [facility] [address] [place] [address], [place] POC GLUCOSE LABon 11-04-2019 Glucose [Mass/Vol] 196 mg/dL High 70-100 [facility] Comment on above: Performed By: #### 8 5499 #### [facility] [address] [place] [address], [place] Glucose [Mass/Vol] 215 mg/dL High 70-100 [facility] Comment on above: Performed By: #### 8 5499 #### [facility] [address] [place] [address], [place] RBC'S 2 UNITSon 11-04-2019 CROSSMATCH INTERP 1 COMP Normal [facility] Comment on above: Performed By: #### 8 6002 #### [facility] [address] [place] [address], [place] CROSSMATCH INTERP 2 COMP Normal [facility] Comment on above: Performed By: #### 8 6002 #### [facility] [address] [place] [address], [place] PRODUCT CODE 1 E0336 Normal [facility] Comment on above: Performed By: #### 8 6002 #### [facility] [address] [place] [address], [place] PRODUCT CODE 2 E0336 Normal [facility] Comment on above: Performed By: #### 8 6002 #### [facility] [address] [place] [address], [place] PRODUCT STATUS 1 RE Normal [facility] Comment on above: Result Comment: Resu lt changed by IF on 11/05/2019 21:39. The previous value was XM. Performed By: #### 8 6002 #### [facility] [address] [place] [address], [place] PRODUCT STATUS 2 RE Normal [facility] Comment on above: Result Comment: Resu lt changed by IF on 11/05/2019 21:39. The previous value was XM. Performed By: #### 8 6002 #### [facility] [address] [place] [address], [place] UNIT ABO 1 A Normal [facility] Comment on above: Performed By: #### 8 6002 #### [facility] [address] [place] [address], [place] UNIT ABO 2 A Normal [facility] Comment on above: Performed By: #### 8 6002 #### [facility] [address] [place] [address], [place] UNIT ID 1 [id number] Normal [facility] Comment on above: Performed By: #### 8 6002 #### [facility] [address] [place] [address], [place] UNIT ID 2 [id number] Normal [facility] Comment on above: Performed By: #### 8 6002 #### [facility] [address] [place] [address], [place] UNIT RH 1 Positive Normal [facility] Comment on above: Performed By: #### 8 6002 #### [facility] [address] [place] [address], [place] UNIT RH 2 Positive Normal [facility] Comment on above: Performed By: #### 8 6002 #### [facility] [address] [facility] *MRSA/MSSA DNA NASALon 10-30 *MRSA/MSSA DNA NASAL Clinical Report: (D ) Specimen: NASAL SWAB Collected: 10/31/2019 16:01 Status: Final Last Updated: 11/01/2019 11:35 MSSA DNA (Final) Negative MRSA DNA (Final) Negative Normal [facility] Comment on above: Performed By: #### 8 [id number] #### [facility] [address] [facility] [place], [place] [address] [place] [address] *SARS-CoV-2 COVID-19on 10-30 [id number] Not Detected Normal Not Detected [facility] Comment on above: Order Comment: The A ptima SARS-CoV-2 assay is a nucleic acid amplification test intended for the qualitative detection of RNA from SARS-CoV-2 isolated and purified from nasopharyngeal (FUNCTIONAL MANAGER), nasal and oropharyngeal (OP) swab specimens from patients with signs and symptoms of infection who are suspected of COVID-19. Results are for the identification of SARS-CoV-2 RNA. The SARS-CoV-2 RNA is generally detectable in nasopharyngeal and oropharyngeal swabs during the acute phase of infection. The Aptima SARS-CoV-2 Assay on the [employer] and [employer] Fusion system is intended for use by laboratory personnel specifically instructed and trained in the operation of the [employer] and [employer] system. The Aptima SARS-CoV-2 assay is [...] information. Performed By: #### 3 [id number] #### [facility] [address] [facility] [place] [address], [facility] CBC COMPLETE BLOOD COUNTon 0 10-31-2019 Erythrocyte distribution width (RBC) [Ratio] 11.9 % Normal 11.5-15.0 [facility] Comment on above: Performed By: #### 8 [id number] #### [facility] [address] [place] [address], [facility] Hematocrit (Bld) [Volume fraction] 41.2 % Normal 39.0-50.0 [facility] Comment on above: Performed By: #### 8 [id number] #### [facility] [address] [place] [address], [facility] Hemoglobin (Bld) [Mass/Vol] 13.8 g/dL Normal 13.0-17.0 [facility] Comment on above: Performed By: #### 8 [id number] #### [facility] [address] [place] [address], [facility] MCH (RBC) [Entitic mass] 30.4 pg Normal 27.0-33.0 [facility] Comment on above: Performed By: #### [id number] #### [facility] [address] MCHC (RBC) [Mass/Vol] 33.5 g/dL Normal 32.0-35.0 [facility] Comment on above: Performed By: #### [id number] #### [facility] [address] [place] [address], [facility] MCV (RBC) [Entitic vol] 90.7 fL Normal 82.0-98.0 [facility] Comment on above: Performed By: #### [id number] #### [facility] [address] [place] [id number], [facility] Nucleated RBC/100 WBC (Bld) [Ratio] 0 % Normal 0-0 [facility] Comment on above: Performed By: #### [id number] #### [facility] [address] [place] [address], [facility] PLAT CNT 216 10*3/uL Normal 150-400 [facility] Comment on above: Performed By: #### [id number] #### [facility] [address] [place] [address], [facility] RBC (Bld) [#/Vol] 4.54 10*6/uL Normal 4.20-5.70 [facility] Comment on above: Performed By: #### [id number] #### [facility] [address] [facility] [place] [address], [facility] WBC (Bld) [#/Vol] 8.20 10*3/uL Normal 4.00-10.60 [facility] Comment on above: Performed By: #### [id number] #### [facility] [address] [facility] HEMOGLOBIN A1Con 10-31-2019 HbA1c (Bld) [Mass fraction] 177 mg/dL High 70-126 [facility] Comment on above: Performed By: #### [id number] #### [facility] [address] [facility] HbA1c (Bld) [Mass fraction] 7.8 % High 4.0-6.0 [facility] Comment on above: Performed By: #### [id number] #### [facility] [address] [facility] PROTHROMBIN TIMEon 0 INR Coag (PPP) [Relative time] 1.39 {INR} High 0.91-1.16 [facility] Comment on above: Result Comment: ACCC P [...] RANGE. CHEST 1995;108:[id number]. Performed By: #### [id number] #### [facility] [address] [place] [address], [facility] INR Coag (PPP) [Relative time] 1.38 {INR} High 0.91-1.16 [facility] Comment on above: Result Comment: ACCC P [...] RANGE. CHEST 1995;108:[id number]. Performed By: #### [id number] #### [facility] [address] [facility] [place] [address], [facility] PT Coag (PPP) [Time] 17.1 s High 12.3-14.8 [facility] Comment on above: Result Comment: ALL RESULTS MUST BE INTERPRETED WITH RESPECT TO BLOOD DRAWING ARTIFACT OR DILUTION ERROR OF ANTICOAGULANT AT THE TIME OF SAMPLING. Performed By: #### [id number] #### [facility] [address] [place] [address], [facility] PT Coag (PPP) [Time] 17.2 s High 12.3-14.8 [facility] Comment on above: Result Comment: ALL RESULTS MUST BE INTERPRETED WITH RESPECT TO BLOOD DRAWING ARTIFACT OR DILUTION ERROR OF ANTICOAGULANT AT THE TIME OF SAMPLING. Performed By: #### [id number] #### [facility] [address] [place] [address], [facility] TYPE AND SCREENon 10-31-2019 ABO INTERPRETATION A Normal [facility] Comment on above: Performed By: #### [id number] #### [facility] [address] [place] [address], [facility] RH INTERPRETATION Positive Normal [facility] Comment on above: Performed By: #### [id number] #### [facility] [address] [facility] CBCOrdered By: Blas gonzales on 05-12-2019 Erythrocyte distribution width (RBC) [Ratio] 11.8 % 11.8 - 14.4 % [facility] Phone: Hematocrit (Bld) [Volume fraction] 45.2 % 40.7 - 50.3 % [employer] Phone: Hemoglobin (Bld) [Mass/Vol] 14.6 g/dL 13 - 17 g/dL [facility] Phone: MCH (RBC) [Entitic mass] 30.5 pg 25.2 - 33.5 pg [place] Phone: MCHC (RBC) [Mass/Vol] 32.3 g/dL 28.4 - 34.8 g/dL [place] Phone: MCV (RBC) [Entitic vol] 94.4 fL 82.6 - 102.9 fL [place] Phone: NRBC Automated 0.0 0.0 per 100 WBC [employer] Work Phone: Platelet mean volume (Bld) [Entitic vol] 9.0 fL 8.1 - 13.5 fL [employer] Work Phone: Platelets (Bld) [#/Vol] 204 10*3/uL [employer] Work Phone: RBC (Bld) [#/Vol] 4.79 10*6/uL 4.21 - 5.7 7 m/uL [employer] Work Phone: WBC (Bld) [#/Vol] 8.0 10*3/uL [employer] Work Phone: Vital Signs Date Time Vital Sign Value Performing Clinician Facility 06-09-2024 09:54-0500 Blood Pressure Location Cristo RIVERA [facility] 06-09-2024 09:54-0500 Diastolic blood pressure 73 mm[Hg] Cristo RIVERA [facility] 06-09-2024 09:54-0500 Heart rate 73 /min Cristo RIVERA [facility] 06-09-2024 09:54-0500 Systolic blood pressure 138 mm[Hg] Cristo RIVERA [facility] 02-15-2024 08:54-0400 Blood Pressure Location Cristo RIVERA [facility] 02-15-2024 08:54-0400 Body temperature 98.6 [degF] Cristo RIVERA [facility] 02-15-2024 08:54-0400 Diastolic blood pressure 71 mm[Hg] Cristo RIVERA [facility] 02-15-2024 08:54-0400 Heart rate 80 /min Cristo RIVERA [facility] 02-15-2024 08:54-0400 Respiratory rate 16 /min Cristo RIVERA [facility] 02-15-2024 08:54-0400 Systolic blood pressure 131 mm[Hg] Cristo RIVERA [facility] 12-21-2023 08:02-0400 Blood Pressure Location Cristo RIVERA [facility] 12-21-2023 08:02-0400 Diastolic blood pressure 72 mm[Hg] Cristo RIVERA [facility] 12-21-2023 08:02-0400 Heart rate 73 /min Cristo RIVERA [facility] 12-21-2023 08:02-0400 Respiratory rate 16 /min Cristo RIVERA [facility] 12-21-2023 08:02-0400 Systolic blood pressure 136 mm[Hg] Cristo RIVERA [facility] 12-04-2023 07:48-0400 Body height 167.64 cm MD Mary Beth Pitts Work Phone: [facility] 12-04-2023 07:48-0400 Body mass index (BMI) [Ratio] 0.8 kg/m2 MD Mary Beth Pitts Work Phone: [facility] 12-04-2023 07:48-0400 Body weight 2.43 kg MD Mary Beth Pitts Work Phone: [facility] 12-04-2023 07:42-0400 Body temperature 97.7 [degF] MD Mary Beth Pitts Work Phone: [facility] 12-04-2023 07:42-0400 Diastolic blood pressure 62 mm[Hg] MD Mary Beth Pitts Work Phone: [facility] 12-04-2023 07:42-0400 Heart rate 64 /min MD Mary Beth Pitts Work Phone: [facility] 12-04-2023 07:42-0400 Respiratory rate 18 /min MD Mary Beth Pitts Work Phone: [facility] 12-04-2023 07:42-0400 Systolic blood pressure 110 mm[Hg] MD Mary Beth Pitts Work Phone: [facility] 11-26-2023 09:55-0400 Body height 167.64 cm MD Mary Beth Pitts Work Phone: [facility] 11-26-2023 09:55-0400 Body mass index (BMI) [Ratio] 26.6 kg/m2 MD Mary Beth Pitts Work Phone: [facility] 11-26-2023 09:55-0400 Body weight 74.84 kg MD Mary Beth Pitts Work Phone: [facility] 11-26-2023 09:55-0400 Diastolic blood pressure 58 mm[Hg] MD Mary Beth Pitts Work Phone: [facility] 11-26-2023 09:55-0400 Heart rate 76 /min MD Mary Beth Pitts Work Phone: [facility] 11-26-2023 09:55-0400 Systolic blood pressure 95 mm[Hg] MD Mary Beth Pitts Work Phone: [facility] 11-19-2023 08:45-0400 Blood Pressure Location Cristo RIVERA [facility] 11-19-2023 08:45-0400 Diastolic blood pressure 59 mm[Hg] Cristo RIVERA [facility] 11-19-2023 08:45-0400 Heart rate 81 /min Cristo RIVERA [facility] 11-19-2023 08:45-0400 Respiratory rate 16 /min Cristo RIVERA [facility] 11-19-2023 08:45-0400 Systolic blood pressure 125 mm[Hg] Cristo RIVERA [facility] 11-08-2023 07:20-0400 Body height 167.64 cm MD Mary Beth Pitts Work Phone: [facility] 11-08-2023 07:20-0400 Body mass index (BMI) [Ratio] 0.8 kg/m2 MD Mary Beth Pitts Work Phone: [facility] 11-08-2023 07:20-0400 Body weight 2.43 kg MD Mary Beth Pitts Work Phone: [facility] 11-08-2023 07:08-0400 Body temperature 97.5 [degF] MD Mary Beth Pitts Work Phone: [facility] 11-08-2023 07:08-0400 Diastolic blood pressure 53 mm[Hg] MD Mary Beth Pitts Work Phone: [facility] 11-08-2023 07:08-0400 Heart rate 80 /min MD Mary Beth Pitts Work Phone: [facility] 11-08-2023 07:08-0400 Respiratory rate 18 /min MD Mary Beth Pitts Work Phone: [facility] 11-08-2023 07:08-0400 Systolic blood pressure 91 mm[Hg] MD Mary Beth Pitts Work Phone: [facility] 10-18-2023 09:18-0400 Body height 165.1 cm [facility] 10-18-2023 09:18-0400 Body mass index (BMI) [Ratio] 30.2 kg/m2 [facility] 10-18-2023 09:18-0400 Body weight 82.55 kg [facility] 10-18-2023 09:18-0400 Diastolic blood pressure 50 mm[Hg] [facility] 10-18-2023 09:18-0400 Heart rate 87 /min [facility] 10-18-2023 09:18-0400 Systolic blood pressure 89 mm[Hg] [facility] 06-25-2023 08:50-0500 Blood Pressure Location Cristo RIVERA [facility] 06-25-2023 08:50-0500 Diastolic blood pressure 64 mm[Hg] Cristo RIVERA [facility] 06-25-2023 08:50-0500 Heart rate 74 /min Cristo RIVERA [facility] 06-25-2023 08:50-0500 Respiratory rate 16 /min Cristo RIVERA [facility] 06-25-2023 08:50-0500 Systolic blood pressure 108 mm[Hg] Cristo RIVERA [facility] 02-26-2023 08:57-0400 Blood Pressure Location Cristo RIVERA [facility] 02-26-2023 08:57-0400 Diastolic blood pressure 60 mm[Hg] Cristo RIVERA [facility] 02-26-2023 08:57-0400 Heart rate 69 /min Cristo RIVERA [facility] 02-26-2023 08:57-0400 Respiratory rate 16 /min Cristo RIVERA [facility] 02-26-2023 08:57-0400 Systolic blood pressure 118 mm[Hg] Cristo RIVERA [facility] 11-27-2022 09:34-0400 Blood Pressure Location Cristo RIVERA [facility] 11-27-2022 09:34-0400 Diastolic blood pressure 51 mm[Hg] Cristo RIVERA [facility] 11-27-2022 09:34-0400 Heart rate 64 /min Cristo RIVERA [facility] 11-27-2022 09:34-0400 Respiratory rate 16 /min Cristo RIVERA [facility] 11-27-2022 09:34-0400 Systolic blood pressure 89 mm[Hg] Cristo RIVERA [facility] 09-11-2022 12:30-0400 Body height 165.1 cm Mary Beth Pitts Other [employer] Other 09-11-2022 12:30-0400 Body mass index (BMI) [Ratio] 29.78 kg/m2 Mary Beth Pitts Other [employer] Other 09-11-2022 12:30-0400 Body weight 81.19 kg Mary Beth Pitts Other [employer] Other 09-11-2022 12:30-0400 Diastolic blood pressure 62 mm[Hg] Mary Beth Pitts Other [employer] Other 09-11-2022 12:30-0400 SaO2% (BldA) [Mass fraction] 94 % Mary Beth Pitts Other [employer] Other 09-11-2022 12:30-0400 Systolic blood pressure 110 mm[Hg] Mary Beth Pitts Other [employer] Other 08-24-2022 11:45-0400 Body height 165.1 cm Mary Beth Pitts Other [employer] Other 08-24-2022 11:45-0400 Body mass index (BMI) [Ratio] 29.62 kg/m2 Mary Beth Pitts Other [employer] Other 08-24-2022 11:45-0400 Body weight 80.74 kg Mary Beth Pitts Other [employer] Other 08-24-2022 11:45-0400 Diastolic blood pressure 58 mm[Hg] Mary Beth Pitts Other [employer] Other 08-24-2022 11:45-0400 SaO2% (BldA) [Mass fraction] 95 % Mary Beth Pitts Other [employer] Other 08-24-2022 11:45-0400 Systolic blood pressure 112 mm[Hg] Mary Beth Pitts Other [employer] Other 07-11-2022 09:45-0500 Body height 165.1 cm Mary Beth Pitts Other [employer] Other 07-11-2022 09:45-0500 Body mass index (BMI) [Ratio] 29.62 kg/m2 Mary Beth Pitts Other [employer] Other 07-11-2022 09:45-0500 Body weight 80.74 kg Mary Beth Pitts Other [employer] Other 07-11-2022 09:45-0500 Diastolic blood pressure 52 mm[Hg] Mary Beth Pitts Other [facility] [employer] Other 07-11-2022 09:45-0500 SaO2% (BldA) [Mass fraction] 97 % Mary Beth Pitts Other [facility] [employer] Other 07-11-2022 09:45-0500 Systolic blood pressure 108 mm[Hg] Mary Beth Pitts Other [facility] [employer] Other 06-05-2022 09:38-0500 Diastolic blood pressure 60 mm[Hg] Cristo RIVERA [facility] 06-05-2022 09:38-0500 Mean blood pressure 84 mm[Hg] Cristo RIVERA [facility] 06-05-2022 09:38-0500 Systolic blood pressure 131 mm[Hg] Cristo RIVERA [facility] 06-05-2022 09:32-0500 Blood Pressure Location Cristo RIVERA [facility] 06-05-2022 09:32-0500 Diastolic blood pressure 73 mm[Hg] Cristo RIVERA [facility] 06-05-2022 09:32-0500 Heart rate 74 /min Cristo RIVERA [facility] 06-05-2022 09:32-0500 Respiratory rate 16 /min Cristo RIVERA [facility] 06-05-2022 09:32-0500 Systolic blood pressure 149 mm[Hg] Cristo RIVERA [facility] 03-19-2022 11:53-0500 Body temperature 98 [degF] MD Mary Beth Pitts Work Phone: [facility] 03-19-2022 11:53-0500 Diastolic blood pressure 74 mm[Hg] MD Mary Beth Pitts Work Phone: [facility] 03-19-2022 11:53-0500 Heart rate 86 /min MD Mary Beth Pitts Work Phone: [facility] 03-19-2022 11:53-0500 Respiratory rate 18 /min MD Mary Beth Pitts Work Phone: [facility] 03-19-2022 11:53-0500 SaO2% (BldA) [Mass fraction] 97 % MD Mary Beth Pitts Work Phone: [facility] 03-19-2022 11:53-0500 Systolic blood pressure 135 mm[Hg] MD Mary Beth Pitts Work Phone: [facility] 03-19-2022 05:36-0500 Body weight 91.9 kg MD Mary Beth Pitts Work Phone: [facility] 03-16-2022 23:20-0400 Body height 165.1 cm MD Mary Beth Pitts Work Phone: [facility] 03-14-2022 12:28-0400 Blood Pressure Location Crisot RIVERA [facility] 03-14-2022 12:28-0400 Diastolic blood pressure 74 mm[Hg] Cristo RIVERA [facility] 03-14-2022 12:28-0400 Heart rate 80 /min Cristo RIVERA [facility] 03-14-2022 12:28-0400 Systolic blood pressure 150 mm[Hg] Cristo RIVERA [facility] 02-27-2022 09:24-0400 Blood Pressure Location Cristo RIVERA [facility] 02-27-2022 09:24-0400 Diastolic blood pressure 72 mm[Hg] Cristo RIVERA [facility] 02-27-2022 09:24-0400 Heart rate 83 /min Cristo RIVERA [facility] 02-27-2022 09:24-0400 Respiratory rate 16 /min Cristo RIVERA [facility] 02-27-2022 09:24-0400 Systolic blood pressure 130 mm[Hg] Cristo RIVERA [facility] 09-19-2021 13:45-0400 Diastolic blood pressure 48 mm[Hg] Roberta Vazquez DO Work Phone: [facility] 09-19-2021 13:45-0400 Heart rate 65 /min Roberta Vazquez DO Work Phone: [facility] 09-19-2021 13:45-0400 Respiratory rate 20 /min Roberta Vazquez DO Work Phone: [facility] 09-19-2021 13:45-0400 SaO2% (BldA) [Mass fraction] 95 % Roberta Vazquez DO Work Phone: [facility] 09-19-2021 13:45-0400 Systolic blood pressure 113 mm[Hg] Roberta Vazquez DO Work Phone: [facility] 09-19-2021 13:23-0400 Body temperature 96.91 [degF] Roberta Vazquez DO Work Phone: [facility] 09-19-2021 11:57-0400 Body height 170.2 cm Roberta Vazquez DO Work Phone: [facility] 09-19-2021 11:57-0400 Body mass index (BMI) [Ratio] 25.84 kg/m2 Roberta Vazquez DO Work Phone: [facility] [employer] 09-19-2021 [id number] Body weight 74.84 kg Roberta Vazquez DO Work Phone: [facility] Encounters Encounter Date Encounter Type Care Provider Facility Start: 09-29-2024 ambulatory Cristo Fletcheri ty:[facility] Start: 06-20-2024 End: 06-20-2024 ambulatory [facility] Start: 06-20-2024 End: 06-20-2024 Patient encounter procedure Cristo RIVERA [facility] Start: 06-09-2024 End: 06-09-2024 ambulatory Cristo RIVERA Facility: [facility] Start: 06-09-2024 End: 06-09-2024 Patient encounter procedure Cristo RIVERA [facility] Start: 03-25-2024 End: 03-25-2024 Lab Drop off Cristo RIVERA [facility] Start: 03-25-2024 End: 03-25-2024 ambulatory Cristo RIVERA Facility:[facility] Start: 03-25-2024 End: 03-25-2024 Patient encounter procedure Cristo RIVERA [facility] Start: 02-28-2024 End: 02-28-2024 ambulatory Cristo RIVERA [facility] Start: 02-28-2024 End: 02-28-2024 Patient encounter procedure Cristo RIVERA [facility] Start: 02-15-2024 End: 02-15-2024 ambulatory Cristo R NICOLE Facility:[facility] Start: 02-15-2024 End: 02-15-2024 Lab Drop off Cristo Frances RIVERA [facility] Start: 02-15-2024 End: 02-15-2024 ambulatory Cristo Yvrose NICOLE Facility:[facility] Start: 02-15-2024 End: 02-15-2024 Patient encounter procedure Cristo R RIVERA [facility] Start: 12-24-2023 End: 12-24-2023 ambulatory MARSHALL LUONG [facility] Start: 12-21-2023 End: 12-21-2023 ambulatory Cristo R NICOLE Facility:[facility] Start: 12-21-2023 End: 12-21-2023 Patient encounter procedure Cristo Frances RIVREA [facility] Start: 12-19-2023 End: 12-19-2023 ambulatory [facility] Start: 12-04-2023 End: 12-04-2023 ambulatory MD Mary Beth Pitts Work Phone: [facility] Work Phone: Start: 12-04-2023 End: 12-04-2023 Discharged Recurring MD Mary Beth Pitts Work Phone: [facility] Work Phone: Start: 11-26-2023 End: 11-26-2023 ambulatory MD Mary Beth Pitts Work Phone: [facility] Work Phone: Start: 11-26-2023 End: 11-26-2023 Patient encounter procedure MD Mary Beth Pitts Work Phone: [facility] Work Phone: Start: 11-23-2023 End: 11-23-2023 ambulatory HINA CARD [facility] Start: 11-23-2023 Non-patient / Non-visit MD Candie Pitts Work Phone: [facility] Work Phone: Start: 11-22-2023 ambulatory MARSHALLARPITA LUONG [facility] Start: 11-19-2023 End: 11-19-2023 ambulatory Cristo RIVERA Facility:[facility] Start: 11-19-2023 End: 11-19-2023 Patient encounter procedure Cristo RIVERA [facility] Start: 11-08-2023 Registered Recurring MD Mary Beth Pitts Work Phone: [facility] Work Phone: Start: 10-26-2023 End: 10-26-2023 ambulatory [facility] Start: 10-26-2023 End: 10-26-2023 Encounter for preprocedural cardiovascular examination [facility] Start: 10-26-2023 Non-patient / Non-visit MD Candie Pitts Work Phone: [facility] Work Phone: Start: 10-18-2023 End: 10-18-2023 ambulatory [facility] Work Phone: Start: 10-18-2023 End: 10-18-2023 Patient encounter procedure [facility] Work Phone: Start: 10-12-2023 Evaluation and manag ement of inpatient [facility] Start: 10-10-2023 Evaluation and manag ement of inpatient [facility] Start: 10-09-2023 Evaluation and manag ement of inpatient [facility] Start: 10-08-2023 Evaluation and manag ement of inpatient [facility] Start: 10-07-2023 Evaluation and manag ement of inpatient [facility] Start: 10-06-2023 Evaluation and manag ement of inpatient [facility] Start: 10-06-2023 Evaluation and manag ement of inpatient [facility] Start: 10-06-2023 Evaluation and manag ement of inpatient [facility] Start: 10-06-2023 Evaluation and manag ement of inpatient [facility] Start: 10-05-2023 End: 10-13-2023 [facility] Start: 10-05-2023 Non-patient / Non-visit [facility] Work Phone: Start: 10-04-2023 Non-patient / Non-visit [facility] Work Phone: Start: 09-27-2023 ambulatory MARSHALL LUONG [facility] Start: 09-20-2023 ambulatory MARSHALL LUONG [facility] Start: 09-13-2023 Non-patient / Non-visit [facility] Work Phone: Start: 09-12-2023 Encounter for other preprocedural examination [facility] Start: 09-12-2023 Evaluation and manag ement of inpatient MARSHALL LUONG [facility] Start: 09-10-2023 End: 09-12-2023 Encounter for other preprocedural examination [facility] Start: 09-10-2023 End: 09-12-2023 Evaluation and management of inpatient [facility] Start: 09-03-2023 Non-patient / Non-visit [facility] Work Phone: Start: 08-21-2023 End: 08-21-2023 ambulatory [facility] Start: 08-18-2023 Non-patient / Non-visit [facility] Work Phone: Start: 08-17-2023 End: 08-17-2023 ambulatory [facility] Start: 07-12-2023 End: 07-12-2023 ambulatory KAIMLA WILSON Not Available Start: 06-25-2023 End: 06-25-2023 ambulatory Cristo RIVERA Facility: [facility] Start: 06-25-2023 End: 06-25-2023 Patient encounter procedure Cristo RIVERA [facility] Start: 06-15-2023 End: 06-15-2023 ambulatory [facility] Start: 04-04-2023 End: 04-04-2023 ambulatory Mary Beth Pitts Other [facility] [employer] Other Start: 04-04-2023 Telephone encounter Mary Beth Pitts [facility] Start: 02-26-2023 End: 02-26-2023 Patient encounter procedure Cristo RIVERA [facility] Start: 12-29-2022 End: 12-29-2022 ambulatory Mahendra Escalante Other [facility] [employer] Other Start: 12-29-2022 Telephone encounter Mahendra barry [facility] [employer] Start: 11-27-2022 End: 11-27-2022 Patient encounter procedure Cristo RIVERA [facility] Start: 11-23-2022 End: 11-23-2022 ambulatory Mary Beth Pitts Other [employer] Other Start: 11-23-2022 Telephone encounter Mary Beth Pitts [facility] Start: 09-18-2022 End: 09-18-2022 ambulatory Mary Beth Pitts Other [employer] Other Start: 09-18-2022 Telephone encounter Mary Beth Pitts [facility] Start: 09-11-2022 End: 09-11-2022 ambulatory Mary Beth Pitts Other [employer] Other Start: 09-11-2022 Office outpatient vi sit 15 minutes Mary Beth Pitts [facility] Start: 08-24-2022 End: 08-24-2022 ambulatory Mary Beth Pitts Other [employer] Other Start: 08-24-2022 Office outpatient vi sit 15 minutes Mary Beth Pitts [facility] Start: 07-20-2022 End: 07-20-2022 Patient encounter procedure Cristo RIVERA [facility] Start: 07-18-2022 End: 06-29-2022 Patient encounter procedure Cristo RIVERA [facility] Start: 07-12-2022 End: 07-12-2022 ambulatory Mary Beth Pitts Other [employer] Other Start: 07-12-2022 Telephone encounter Mary Beth Pitts [facility] Start: 07-11-2022 Office outpatient vi sit 15 minutes Mary Beth Pitts [facility] Start: 07-11-2022 End: 07-11-2022 ambulatory MD Mary Beth Pitts Work Phone: [facility] Work Phone: Start: 07-11-2022 End: 07-11-2022 Patient encounter procedure MD Mary Beth Pitts Work Phone: [facility] Work Phone: Start: 06-05-2022 End: 06-05-2022 Patient encounter procedure Cristo RIVERA [facility] Start: 04-29-2022 End: 04-30-[address] CRISTO RIVERA Facility:[facility] Start: 03-17-[address] Jc Shetty Facility:[id number] Start: 03-17-[address] Mary Beth Pitts Facility:[facility] Start: 03-17-[address] Mary Beth Pitts Facility:[id number] Start: 03-16-2022 End: 03-19-2022 Evaluation and management of inpatient MD Mary Beth Pitts Work Phone: [facility] Start: 03-16-2022 End: 03-17-2022 ambulatory GALEN MEDINA Facility:[facility] Start: 03-14-2022 End: 03-14-2022 Patient encounter procedure Cristo RIVERA [facility] Start: 03-03-2022 End: 03-04-[address] MARY BETH PITTS Facility:[facility] Start: 02-27-2022 End: 02-27-2022 Patient encounter procedure Cristo RIVERA [facility] Start: 12-16-2021 End: 12-17-2021 ambulatory BLAS Jasso [facility] Start: 12-08-2021 Adult health examination Supriya Escalante Other [facility] [employer] Other Start: 12-08-2021 Problem, abnormal examination Mahendra Escalante Other [facility] [employer] Other Start: 12-01-2021 End: 12-02-2021 ambulatory MARY BETH PITTS [facility] Start: 12-01-2021 End: 12-01-2021 Subsequent hospital visit by physician Mary Beth Pitts MD Work Phone: [facility] Start: 09-19-2021 End: 09-19-2021 ambulatory MARY BETHJAMIE PITTS [facility] Start: 09-19-2021 End: 09-19-2021 Subsequent hospital visit by physician Roberta Vazquez DO Work Phone: [facility] Start: 07-05-2021 End: 07-06-2021 ambulatory Gerald Villagomez MD [facility] Start: 06-14-2021 End: 06-15-2021 ambulatory MD Mary Beth Pitts [facility] Start: 06-09-2021 End: 06-09-2021 ambulatory MD Mary Beth Pitts Facility:[facility] Start: 06-08-2021 End: 06-09-2021 ambulatory Gerald Villagomez MD Facility:[facility] Start: 06-02-2021 End: 06-03-2021 ambulatory MD Mary Beth Pitts Facility:[facility] Start: 05-27-2021 End: 05-28-2021 ambulatory Gerald Villagomez MD Facility:[facility] Start: 05-19-2021 End: 05-20-2021 ambulatory MD Mary Beth Pitts [facility] Start: 09-27-2020 End: 09-27-2020 Subsequent hospital visit by physician Mary Beth Pitts MD Work Phone: [facility] Start: 03-29-2020 End: 03-30-2020 Patient encounter procedure SWETHA WINTER Facility:[facility] Start: 02-23-2020 End: 02-24-2020 Patient encounter procedure MARY BETH PITTS Facility:[facility] Start: 02-12-2020 End: 02-14-2020 Evaluation and management of inpatient PEREZ ALI Facility:[facility] Start: 11-04-2019 End: 11-05-2019 Evaluation and management of inpatient SANTANA MASROOR Facility:[facility] Start: 05-12-2019 End: 05-12-2019 Subsequent hospital visit by physician Mary Beth Pitts MD Work Phone: [facility] Laboratory Procedures Date Procedure Procedure Detail Performing Clinician Start: 12-19-2023 Follow-up visit HELGA REIS LAURI Start: 11-23-2023 Follow-up visit HELGA REIS LAURI Start: 10-26-2023 Bacteria identified in Urine by Culture MD Mary Beth Pitts Work Phone: Start: 10-26-2023 Follow-up visit HELGA REIS LAURI Start: 10-04-2023 Bacteria identified in Urine by Culture Start: 10-04-2023 Blood Culture 1 Start: 10-04-2023 Blood Culture 2 Start: 08-17-2023 Follow-up visit HELGA REIS LAURI Start: 06-15-2023 Follow-up visit HELGA REIS LAURI Start: 07-18-2022 Cystoscopy Cristo MARTIN Start: 07-11-2022 Plain X-ray of right hip MD Mary Beth Pitts Work Phone: Start: 03-17-2022 [facility] Angio w/grafts MD Mary Beth Pitts Work Phone: Start: 03-14-2022 Cystoscopy Cristo KERA MARTIN Start: 03-14-2022 Cystourethroscopy wi dilation of urethral stricture Cristo RIVERA Start: [...] on above: Performed By: #### [id number] ####[facility] Start: 11-04-2019 MEASURE OF ARTERIAL SATURATION, PERIPHERAL, PERC APPROACH REYNALDO COX Start: 11-04-2019 MEASURE OF CARDIAC S AMPL \T\ PRESSURE, L HEART, PERC APPROACH BLAS OSPINA Start: 11-04-2019 REPLACEMENT OF AORTI C VALVE WITH ZOOPLASTIC, PERC APPROACH SANTANA REAGAN Start: 10-31-2019 Antibody screen NIC AYALA Comment on above: Performed By: #### [id number] #### [facility] [address] Start: 05-12-2019 Blood count complete automated Blas Ospina MD Work Phone: Start: 03-03-2015 Screening for malign ant neoplasm of prostate Mahendra Langvasiliy Other Cataract (disorder) Cristo RIVERA Coronary artery bypa ss grafts x 4 Cristo RIVERA Replacement of aortic valve Cristo RIVERA Screening for malign ant neoplasm of prostate Mary Beth Pitts Other Screening for malign ant neoplasm of prostate Mahendra Langenberg Other Structure of femoral artery (body structure) Cristo RIVERA Urine culture MD Mary Beth murcia Work Phone: Plan of Treatment Date Care Activity Detail Author Start: 07-11-2022 Duplex scan of lower limb veins US venous duplex LE RT [facility] Start: 07-11-2022 US Lower extremity v ein - right [facility] Start: 03-21-2022 [facility] Start: 03-20-2022 Blood chemistry [facility] Start: 03-20-2022 [facility] Start: 03-19-2022 [facility] Start: 03-18-2022 Referral to urologist [facility] Start: 03-17-2022 [facility] Start: 03-17-2022 Hospital admission [facility] Start: 03-17-2022 Referral to respiratory therapy director [facility] Start: 03-17-2022 [facility] Start: 01-12-2022 Influenza vaccination [facility] Start: 09-19-2021 End: 09-19-2021 Xcapsl ctrc rmvl insj io lens prosth w/o ecp EYE CATARACT EMULSIFICATION IOL IMPLANT COMBINED FORMS OF AGE RELATED CATARACT 2+NS, 2+PSC, 2+CS 09/19/2021 12:45 PM EDT [facility] Start: 09-04-2021 COVID-19 Vaccine (4 - Booster for Pfizer series) COVID-19 Vaccine (4 - Booster for Pfizer series) [facility] [employer] Start: 01-12-2021 Influenza vaccination Flu vacc ine (Season Ended) [facility] Work Phone: Start: 03-21-2019 A1C test (Diabetic o r Prediabetic) A1C test (Diabetic or Prediabetic) [facility] Phone: Start: 03-21-2019 Creatinine measurement [facility] Start: 03-21-2019 Creatinine monitoring Creatinine mon itoring [facility] Phone: Start: 03-21-2019 Diabetic microalbumi lucila test Diabetic microalbuminuria test [facility] Phone: Start: 03-21-2019 Hemoglobin A1c measurement A1C test (Diabetic or Prediabetic) [facility] Phone: Start: 03-21-2019 Lipid panel [facility] Start: 03-21-2019 Lipid screen Lipid screen [employer] Work Phone: Start: 03-21-2019 Potassium [Moles/vol ume] in Serum or Plasma Potassium [facility] Start: 03-21-2019 Potassium monitoring Potassium monit oring [facility] Phone: Start: 01-12-2019 Influenza vaccination Flu vaccine (# 1) [facility] Phone: Start: 11-03-2018 Annual Wellness Visi t (AWV) Annual Wellness Visit (AWV) [facility] Phone: Start: 06-21-2018 Hemoglobin A1c measurement A1C test (Diabetic or Prediabetic) [facility] Start: 2013 Abdominal aortic ane urysm screening AAA screen [facility] Start: 2013 Pneumococcal 65+ yea rs Vaccine (1 - PCV) Pneumococcal 65+ years Vaccine (1 - PCV) [facility] Start: 2013 Pneumococcal 65+ yea rs Vaccine (1 of 1 - PPSV23) Pneumococcal 65+ years Vaccine (1 of 1 - PPSV23) [facility] Phone: Start: 1998 Colon cancer screen colonoscopy Colon cancer screen colonoscopy [facility] Phone: Start: 1998 Screening for malign ant neoplasm of colon Colon cancer screen colonoscopy [facility] Phone: Start: 1998 Shingles Vaccine (1 of 2) Shingles V accine (1 of 2) [facility] Start: 1993 Screening for malign ant neoplasm of colon [facility] Start: 1967 DTaP/Tdap/Td vaccine (1 - Tdap) DTaP/Tdap/Td vaccine (1 - Tdap) [facility] Start: 1966 Hepatitis C screening Hepatitis C sc reen [facility] Start: 1960 COVID-19 Vaccine (1) COVID-19 Vaccin e (1) [facility] Phone: Start: 1960 Depression Screen Depression Screen [facility] [facility] Start: 1959 DTaP/Tdap/Td vaccine (1 - Tdap) DTaP/Tdap/Td vaccine (1 - Tdap) [facility] Phone: Start: 1958 3 comp foot exam completed Diabetic foot exam [facility] Phone: Start: 1958 Diabetic foot examination Diabetic f oot exam [facility] Phone: Start: 1958 Diabetic retinal exam Diabetic retin al exam [facility] Phone: Start: 1948 AAA screen AAA screen [employer] Work Phone: Start: 1948 Abdominal aortic ane urysm screening AAA screen [facility] Phone: Start: 1948 Annual Wellness Visi t (AWV) Annual Wellness Visit (AWV) [facility] Start: 1948 Hepatitis C screen Hepatitis C scree n [facility] Phone: Start: 1948 Hepatitis C screening Hepatitis C sc reen [facility] Phone: Blood culture for bacteria, including anaerobic screen Blood Culture [facility] End: 12-01-2021 Hemoglobin A1c/Hemoglobin.total in Blood [facility] Phone: Comment on above: Once for 1 Occurrenc es starting 12/01/2021 until 12/01/2021 Oxygen therapy [[facility]ini [facility] Data Set] Initiate Oxygen Therapy Protocol Respiratory Care Routine Daily until discontinued starting 09/19/2021 [facility] Phone: Comment on above: Daily until disconti nued starting 09/19/2021 Patient Education Urinary Tract Infection, Adult (DC) Sepsis, Adult (DC) [facility] Work Phone: Patient referral [facility] Work Phone: Immunizations Immunization Date Immunization Notes Care Provider Fa ciligibran 08-28-2022 tetanus and diphther ia toxoids, adsorbed, preservative free, for adult use (2 Lf of tetanus toxoid and 2 Lf of diphtheria toxoid) [facility] 08-28-2022 tetanus and diphther ia toxoids, adsorbed, preservative free, for adult use (5 Lf of tetanus toxoid and 2 Lf of diphtheria toxoid) Mary Beth Pitts Other [employer] Other 05-06-2021 COVID-19, Pfizer Purple top, DILUTE for use, 12+ yrs, 30mcg/0.3mL dose Roberta Vazquez DO Work Phone: [facility] Phone: 10-22-2020 COVID-19, Pfizer Purple top, DILUTE for use, 12+ yrs, 30mcg/0.3mL dose Roberta Vazquez DO Work Phone: [facility] Phone: 10-01-2020 COVID-19, Pfizer Purple top, DILUTE for use, 12+ yrs, 30mcg/0.3mL dose Roberta Vazquez DO Work Phone: [facility] Phone: Payers Date Payer Category Payer Self-pay [id number] 2021 Medicaid 2020 Private Health Insurance 2017 Private Health Insurance [id number] 2014 Medicare MEDICARE MEDICAR E PART A AND B xxxxxxxxxxx 2014-Present [phone] [place] [address] xxxxxxxxxxx [id number] 1959 Medicaid [id number] 1948 Unknown [id number] 2.16.840.1.307432.3.579.2. 647 1948 Unknown [id number] 2.16.840.1.493064.3.579.2. 647 1948 Unknown [id number] 2.16.840.1.999763.3.579.2. 647 1948 Unknown [id number] 2.16.840.1.382015.3.579.2. 647 1948 Unknown [id number] 2.16.840.1.938531.3.579.2. 173 1948 Unknown [id number] 2.16.840.1.263333.3.579.2. 173 1948 Unknown [id number] 2.16.840.1.996874.3.579.2. 173 1948 Unknown [id number] 2.16.840.1.231614.3.579.2. 356 1948 Unknown [id number] 2.16.840.1.783984.3.579.2. 356 1948 Unknown [id number] 2.16.840.1.876055.3.579.2. 356 1948 Unknown [id number] 2.16.840.1.497100.3.579.2. 593 1948 Unknown [id number] 2.16.840.1.244004.3.579.2. 593 1948 Unknown [id number] 2.16.840.1.771215.3.579.2. 593 1948 Unknown [id number] 2.16.840.1.712106.3.579.2. 196 1948 Unknown [id number] 2.16.840.1.648029.3.579.2. 196 1948 Unknown [id number] 2.16.840.1.463106.3.579.2. 196 1948 Unknown [id number] 2.16.840.1.527107.3.579.2. 196 1948 Unknown [id number] 2.16.840.1.374988.3.579.2. 196 1948 Unknown [id number] 2.16.840.1.478348.3.579.2. 196 1948 Unknown [id number] 2.16.840.1.782875.3.579.2. 196 1948 Unknown [id number] 2.16.840.1.616543.3.579.2. 1259 1948 Unknown [id number] 2.16.840.1.822401.3.579.2. 727 1948 Unknown [id number] 2.16.840.1.189841.3.579.2. 727 1948 Unknown [id number] 2.16.840.1.227295.3.579.2. 72 1948 Unknown [id number] 2.16.840.1.149907.3.579.2. 72 1948 Unknown [id number] 2.16.840.1.973801.3.579.2. 72 1948 Unknown [id number] 2.16.840.1.763512.3.579.2. 72 1948 Unknown [id number] 2.16840.1.879997.3.579.2. 72 1948 Unknown [id number] 2.16840.1.666340.3.579.2. 72 1948 Unknown [id number] 2.16.840.1.916976.3.579.2. 72 1948 Unknown [id number] 2.16.840.1.830022.3.579.2. 72 1948 Unknown [id number] 2.16840.1.173293.3.579.2. 72 Medicaid Medicaid [id number] Medicare [id number] Medicare [id number] Unknown HCAP/HFA/FAP Active [id number] Social History Date Type Detail Facility Start: 10-29-2014 End: 06-09-2024 Tobacco smoking status NHIS Former smoker [facility] End: 05-14-1994 History of tobacco use Current smoker [facility] Start: 10-29-2014 End: 09-19-2021 Alcohol intake Current non-drinker of alcohol (finding) [facility] Phone: Start: 1950 Sex Assigned At Not on file [facility] Work Phone: Start: 09-09-2021 End: 09-19-2021 Exposure to SARS-CoV-2 (event) Not sure [facility] Phone: End: 05-14-1994 History of tobacco use Cigarette Smoker [employer] Phone: Start: 09-19-2021 Tobacco use and exposure Smokeless tobacco non-user [employer] Phone: Start: 06-25-2023 End: 02-15-2024 Tobacco smoking status Never [facility] Sex Assigned At Male [facility] Start: 1950 Sex Assigned At Male [facility] Medical Equipment Procedure Code Equipment Code Equipment Origin al Text Equipment Identifier Dates Lens Intraocular Bcnvx 19+ Diopt 6x12.5 Mm Acryl [employer] - [id number] Start: 09-19-2021 Accu-Chek Softcl ix Lancets - Start: 11-22-2022 Goals Date Patient Goal Desired Activity /State Functional Status Date Assessment Result Facility 06-09-2024 Functional Status N/A [facility] 02-15-2024 Functional Status N/A [facility] 12-21-2023 Functional Status N/A [facility] 11-19-2023 Functional Status N/A [facility] 06-25-2023 Functional Status N/A [facility] 02-26-2023 Functional Status N/A [facility] 11-27-2022 Functional Status N/A [facility] 06-05-2022 Functional Status N/A [facility] 03-19-2022 Functional status Patient at Baseline [facility] Work Phone: 03-16-2022 Functional status Functional Status Comme nt [facility] Work Phone: 03-14-2022 Functional Status N/A [facility] 02-27-2022 Functional Status N/A [facility] Mental Status Date Assessment Result Facility 03-19-2022 Cognitive function Cognitive Sta tus Patient at Baseline [facility] Work Phone: Clinical Notes 06-09-2021 to 06-09-2024 Note Date & Type Note Facility 06-09-2024 Hospital Discharge instructions Patient Education 06/09/2024 11:12:48 Prostatitis Prostatitis Prostatitis is swelling or inflammation of the prostate gland, also called the prostate. This gland is about 1.5 inches wide and 1 inch high, and it is involved in making semen. The prostate is located below a man's bladder, in front of the rectum. There are four types of prostatitis: Chronic prostatitis (CP), also called chronic pelvic pain syndrome (CPPS). This is the most common type of prostatitis. It is associated with increased muscle tone in the area between the hip bones (pelvic area), around the prostate. This type is also known as a pelvic floor disorder. Chronic bacterial prostatitis. This type usually results from an acute bacterial infection in the prostate gland that keeps coming back or has not been treated properly. The symptoms are less severe than those caused by acute bacterial prostatitis, which lasts a shorter time. Asymptomatic inflammatory prostatitis. This type does not have symptoms and does not need treatment. This is diagnosed when tests are done for other disorders of the urinary tract or reproductive tract. Acute bacterial prostatitis. This type starts quickly and results from an acute bacterial infection in the prostate gland. It is usually associated with a bladder infection, high fever, and chills. This is the least common type of prostatitis. What are the causes? Bacterial prostatitis is caused by an infection from bacteria. Chronic nonbacterial prostatitis may be caused by: Factors related to the nervous system. This system includes thebrain, spinal cord, and nerves. An autoimmune response. This happens when the body's disease-fighting system attacks healthy tissue in the body by mistake. Psychological factors. These have to do with how the mind works. The causes of the other types of prostatitis are usually not known. What are the signs or symptoms? Symptoms of this condition depend on the type of prostatitis you have. Acute bacterial prostatitis Symptoms may include: Pain or burning during urination. Frequent and sudden urges to urinate. Trouble starting to urinate. Fever. Chills. Pain in your muscles or joints, lower back, or lower abdomen. Other types of prostatitis Symptoms may include: Sudden urges to urinate, or urinating often. Trouble starting to urinate. Weak urine stream. Dribbling after urination. Discharge coming from the penis. Pain in the testicles, the penis, or the tip of the penis. Pain in the area in front of the rectum and below the scrotum (perineum). Pain when ejaculating. How is this diagnosed? This condition may be diagnosed based on: A physical and medical exam. A digital rectal exam. For this, the health care provider may use a finger to feel the prostate. A urine test to check for bacteria. A semen sample or blood tests. Ultrasound. Urodynamic tests to check how your body handles urine. Cystoscopy to look inside your bladder or inside the part of your body that drains urine from the bladder (urethra). How is this treated? Treatment for this condition depends on the type of prostatitis. Treatment may involve: Medicines to relieve pain or inflammation, or to help relax your muscles. Physical therapy. Heat therapy. Biofeedback. These techniques help you control certain body functions. Relaxation exercises. Antibiotic medicine, if your condition is caused by bacteria. Sitz baths. These warm water baths help to relax your pelvic floor muscles, which helps to relieve pressure on the prostate. Follow these instructions at home: Medicines Take ehye-lbo-jtaebos and prescription medicines only as told by your health care provider. If you were prescribed an antibiotic medicine, take it as told by your health care provider. Do not stop using the antibiotic even if you start to feel better. Managing pain and swelling Take sitz baths as directed by your health care provider. For a sitz bath, sit in warm water that is deep enough to cover your hips and buttocks. If directed, apply heat to the affected area as often as told by your health care provider. Use the heat source that your health care provider recommends, such as a moist heat pack or a heating pad. ?Place a towel between your skin and the heat source. ?Leave the heat on for 20 30 minutes. ?Remove the heat if your skin turns bright red. This is especially important if you are unable to feel pain, heat, or cold. You may have a greater risk of getting burned. General instructions Do exercises as told by your health care provider, if you were prescribed physical therapy, biofeedback, or relaxation exercises. Keep all follow-up visits as told by your health care provider. This is important. Where to find more information [employer] [place] of Diabetes and Digestive and Kidney Diseases: https://www.niddk.nih.gov Contact a health care provider if: Your symptoms get worse. You have a fever. Get help right away if: You have chills. You feel light-headed or feel like you may faint. You cannot urinate. You have blood or blood clots in your urine. Summary Prostatitis is swelling or inflammation of the prostate gland. Treatment for this condition depends on the type of prostatitis. Take szjb-chc-dlsrxro and prescription medicines only as told by your health care provider. Get help right away of you have chills, feel light-headed, feel like you may faint, cannot urinate, or have blood or blood clots in your urine. This information is not intended to replace advice given to you by your health care provider. Make sure you discuss any questions you have with your health care provider. Document Revised: 03/15/2023 Document Reviewed: 03/15/2023 [employer] Patient Education 2023 [employer]. Follow Up Care 02/15/2024 10:00:51 With:NICOLE DIAZ, [place], URL Address: [facility] [address] , [place] [address]- [phone] When: Unknown Comments:4 mos w/ PVR [facility] 06-09-2024 Note Patient Education Infectious Disease Prostatitis Prostatitis is swelling or inflammation of the prostate gland, also called the prostate. This gland is about 1.5 inches wide and 1 inch high, and it is involved in making semen. The prostate is located below a man's bladder, in front of the rectum. There are four types of prostatitis: ??? Chronic prostatitis (CP), also called chronic pelvic pain syndrome (CPPS). This is the most common type of prostatitis. It is associated with increased muscle tone in the area between the hip bones (pelvic area), around the prostate. This type is also known as a pelvic floor disorder. ??? Chronic bacterial prostatitis. This type usually results from an acute bacterial infection in the prostate gland that keeps coming back or has not been treated properly. The symptoms are less severe than those caused by acute bacterial prostatitis, which lasts a shorter time. ??? Asymptomatic inflammatory prostatitis. This type does not have symptoms and does not need treatment. This is diagnosed when tests are done for other disorders of the urinary tract or reproductive tract. ??? Acute bacterial prostatitis. This type starts quickly and results from an acute bacterial infection in the prostate gland. It is usually associated with a bladder infection, high fever, and chills. This is the least common type of prostatitis. What are the causes? Bacterial prostatitis is caused by an infection from bacteria. Chronic nonbacterial prostatitis may be caused by: ??? Factors related to the nervous system. This system includes thebrain, spinal cord, and nerves. ??? An autoimmune response. This happens when the body's disease-fighting system attacks healthy tissue in the body by mistake. ??? Psychological factors. These have to do with how the mind works. The causes of the other types of prostatitis are usually not known. What are the signs or symptoms? Symptoms of this condition depend on the type of prostatitis you have. Acute bacterial prostatitis Symptoms may include: ??? Pain or burning during urination. ??? Frequent and sudden urges to urinate. ??? Trouble starting to urinate. ??? Fever. ??? Chills. ??? Pain in your muscles or joints, lower back, or lower abdomen. Other types of prostatitis Symptoms may include: ??? Sudden urges to urinate, or urinating often. ??? Trouble starting to urinate. ??? Weak urine stream. ??? Dribbling after urination. ??? Discharge coming from the penis. ??? Pain in the testicles, the penis, or the tip of the penis. ??? Pain in the area in front of the rectum and below the scrotum (perineum). ??? Pain when ejaculating. How is this diagnosed? This condition may be diagnosed based on: ??? A physical and medical exam. ??? A digital rectal exam. For this, the health care provider may use a finger to feel the prostate. ??? A urine test to check for bacteria. ??? A semen sample or blood tests. ??? Ultrasound. ??? Urodynamic tests to check how your body handles urine. ??? Cystoscopy to look inside your bladder or inside the part of your body that drains urine from the bladder (urethra). How is this treated? Treatment for this condition depends on the type of prostatitis. Treatment may involve: ??? Medicines to relieve pain or inflammation, or to help relax your muscles. ??? Physical therapy. ??? Heat therapy. ??? Biofeedback. These techniques help you control certain body functions. ??? Relaxation exercises. ??? Antibiotic medicine, if your condition is caused by bacteria. ??? Sitz baths. These warm water baths help to relax your pelvic floor muscles, which helps to relieve pressure on the prostate. Follow these instructions at home: Medicines ??? Take ftgl-yuc-tsoqncl and prescription medicines only as told by your health care provider. ??? If you were prescribed an antibiotic medicine, take it as told by your health care provider. Do not stop using the antibiotic even if you start to feel better. Managing pain and swelling ??? Take sitz baths as directed by your health care provider. For a sitz bath, sit in warm water that is deep enough to cover your hips and buttocks. ??? If directed, apply heat to the affected area as often as told by your health care provider. Use the heat source that your health care provider recommends, such as a moist heat pack or a heating pad. ? Place a towel between your skin and the heat source. ? Leave the heat on for 20?30 minutes. ? Remove the heat if your skin turns bright red. This is especially important if you are unable to feel pain, heat, or cold. You may have a greater risk of getting burned. General instructions ??? Do exercises as told by your health care provider, if you were prescribed physical therapy, biofeedback, or relaxation exercises. ??? Keep all follow-up visits as told by your health care provider. This is important. (more content not included)... [facility] 02-15-2024 Hospital Discharge instructions Patient Education 02/15/2024 09:33:03 Prostatitis Prostatitis Prostatitis is swelling or inflammation of the prostate gland, also called the prostate. This gland is about 1.5 inches wide and 1 inch high, and it is involved in making semen. The prostate is located below a man's bladder, in front of the rectum. There are four types of prostatitis: Chronic prostatitis (CP), also called chronic pelvic pain syndrome (CPPS). This is the most common type of prostatitis. It is associated with increased muscle tone in the area between the hip bones (pelvic area), around the prostate. This type is also known as a pelvic floor disorder. Chronic bacterial prostatitis. This type usually results from an acute bacterial infection in the prostate gland that keeps coming back or has not been treated properly. The symptoms are less severe than those caused by acute bacterial prostatitis, which lasts a shorter time. Asymptomatic inflammatory prostatitis. This type does not have symptoms and does not need treatment. This is diagnosed when tests are done for other disorders of the urinary tract or reproductive tract. Acute bacterial prostatitis. This type starts quickly and results from an acute bacterial infection in the prostate gland. It is usually associated with a bladder infection, high fever, and chills. This is the least common type of prostatitis. What are the causes? Bacterial prostatitis is caused by an infection from bacteria. Chronic nonbacterial prostatitis may be caused by: Factors related to the nervous system. This system includes thebrain, spinal cord, and nerves. An autoimmune response. This happens when the body's disease-fighting system attacks healthy tissue in the body by mistake. Psychological factors. These have to do with how the mind works. The causes of the other types of prostatitis are usually not known. What are the signs or symptoms? Symptoms of this condition depend on the type of prostatitis you have. Acute bacterial prostatitis Symptoms may include: Pain or burning during urination. Frequent and sudden urges to urinate. Trouble starting to urinate. Fever. Chills. Pain in your muscles or joints, lower back, or lower abdomen. Other types of prostatitis Symptoms may include: Sudden urges to urinate, or urinating often. Trouble starting to urinate. Weak urine stream. Dribbling after urination. Discharge coming from the penis. Pain in the testicles, the penis, or the tip of the penis. Pain in the area in front of the rectum and below the scrotum (perineum). Pain when ejaculating. How is this diagnosed? This condition may be diagnosed based on: A physical and medical exam. A digital rectal exam. For this, the health care provider may use a finger to feel the prostate. A urine test to check for bacteria. A semen sample or blood tests. Ultrasound. Urodynamic tests to check how your body handles urine. Cystoscopy to look inside your bladder or inside the part of your body that drains urine from the bladder (urethra). How is this treated? Treatment for this condition depends on the type of prostatitis. Treatment may involve: Medicines to relieve pain or inflammation, or to help relax your muscles. Physical therapy. Heat therapy. Biofeedback. These techniques help you control certain body functions. Relaxation exercises. Antibiotic medicine, if your condition is caused by bacteria. Sitz baths. These warm water baths help to relax your pelvic floor muscles, which helps to relieve pressure on the prostate. Follow these instructions at home: Medicines Take vasp-rvt-xlzumzy and prescription medicines only as told by your health care provider. If you were prescribed an antibiotic medicine, take it as told by your health care provider. Do not stop using the antibiotic even if you start to feel better. Managing pain and swelling Take sitz baths as directed by your health care provider. For a sitz bath, sit in warm water that is deep enough to cover your hips and buttocks. If directed, apply heat to the affected area as often as told by your health care provider. Use the heat source that your health care provider recommends, such as a moist heat pack or a heating pad. ?Place a towel between your skin and the heat source. ?Leave the heat on for 20 30 minutes. ?Remove the heat if your skin turns bright red. This is especially important if you are unable to feel pain, heat, or cold. You may have a greater risk of getting burned. General instructions Do exercises as told by your health care provider, if you were prescribed physical therapy, biofeedback, or relaxation exercises. Keep all follow-up visits as told by your health care provider. This is important. Where to find more information [employer] [place] of Diabetes and Digestive and Kidney Diseases: https://www.niddk.nih.gov Contact a health care provider if: Your symptoms get worse. You have a fever. Get help right away if: You have chills. You feel light-headed or feel like you may faint. You cannot urinate. You have blood or blood clots in your urine. Summary Prostatitis is swelling or inflammation of the prostate gland. Treatment for this condition depends on the type of prostatitis. Take mwce-uxq-mqigfah and prescription medicines only as told by your health care provider. Get help right away of you have chills, feel light-headed, feel like you may faint, cannot urinate, or have blood or blood clots in your urine. This information is not intended to replace advice given to you by your health care provider. Make sure you discuss any questions you have with your health care provider. Document Revised: 03/15/2023 Document Reviewed: 03/15/2023 [employer] Patient Education 2023 [employer]. Follow Up Care 12/21/2023 08:32:25 With:NICOLE DIAZ, [place], URL Address: [address] [place] [phone] When: Unknown [facility] 02-15-2024 Note Patient Education Infectious Disease Prostatitis Prostatitis is swelling or inflammation of the prostate gland, also called the prostate. This gland is about 1.5 inches wide and 1 inch high, and it is involved in making semen. The prostate is located below a man's bladder, in front of the rectum. There are four types of prostatitis: ? Chronic prostatitis (CP), also called chronic pelvic pain syndrome (CPPS). This is the most common type of prostatitis. It is associated with increased muscle tone in the area between the hip bones (pelvic area), around the prostate. This type is also known as a pelvic floor disorder. ? Chronic bacterial prostatitis. This type usually results from an acute bacterial infection in the prostate gland that keeps coming back or has not been treated properly. The symptoms are less severe than those caused by acute bacterial prostatitis, which lasts a shorter time. ? Asymptomatic inflammatory prostatitis. This type does not have symptoms and does not need treatment. This is diagnosed when tests are done for other disorders of the urinary tract or reproductive tract. ? Acute bacterial prostatitis. This type starts quickly and results from an acute bacterial infection in the prostate gland. It is usually associated with a bladder infection, high fever, and chills. This is the least common type of prostatitis. What are the causes? Bacterial prostatitis is caused by an infection from bacteria. Chronic nonbacterial prostatitis may be caused by: ? Factors related to the nervous system. This system includes thebrain, spinal cord, and nerves. ? An autoimmune response. This happens when the body's disease-fighting system attacks healthy tissue in the body by mistake. ? Psychological factors. These have to do with how the mind works. The causes of the other types of prostatitis are usually not known. What are the signs or symptoms? Symptoms of this condition depend on the type of prostatitis you have. Acute bacterial prostatitis Symptoms may include: ? Pain or burning during urination. ? Frequent and sudden urges to urinate. ? Trouble starting to urinate. ? Fever. ? Chills. ? Pain in your muscles or joints, lower back, or lower abdomen. Other types of prostatitis Symptoms may include: ? Sudden urges to urinate, or urinating often. ? Trouble starting to urinate. ? Weak urine stream. ? Dribbling after urination. ? Discharge coming from the penis. ? Pain in the testicles, the penis, or the tip of the penis. ? Pain in the area in front of the rectum and below the scrotum (perineum). ? Pain when ejaculating. How is this diagnosed? This condition may be diagnosed based on: ? A physical and medical exam. ? A digital rectal exam. For this, the health care provider may use a finger to feel the prostate. ? A urine test to check for bacteria. ? A semen sample or blood tests. ? Ultrasound. ? Urodynamic tests to check how your body handles urine. ? Cystoscopy to look inside your bladder or inside the part of your body that drains urine from the bladder (urethra). How is this treated? Treatment for this condition depends on the type of prostatitis. Treatment may involve: ? Medicines to relieve pain or inflammation, or to help relax your muscles. ? Physical therapy. ? Heat therapy. ? Biofeedback. These techniques help you control certain body functions. ? Relaxation exercises. ? Antibiotic medicine, if your condition is caused by bacteria. ? Sitz baths. These warm water baths help to relax your pelvic floor muscles, which helps to relieve pressure on the prostate. Follow these instructions at home: Medicines ? Take sgmu-alr-avysgje and prescription medicines only as told by your health care provider. ? If you were prescribed an antibiotic medicine, take it as told by your health care provider. Do not stop using the antibiotic even if you start to feel better. Managing pain and swelling ? Take sitz baths as directed by your health care provider. For a sitz bath, sit in warm water that is deep enough to cover your hips and buttocks. ? If directed, apply heat to the affected area as often as told by your health care provider. Use the heat source that your health care provider recommends, such as a moist heat pack or a heating pad. ? Place a towel between your skin and the heat source. ? Leave the heat on for 20?30 minutes. ? Remove the heat if your skin turns bright red. This is especially important if you are unable to feel pain, heat, or cold. You may have a greater risk of getting burned. General instructions ? Do exercises as told by your health care provider, if you were prescribed physical therapy, biofeedback, or relaxation exercises. ? Keep all follow-up visits as told by your health care provider. This is important. Where to find more information ? [employer] [place] of Diabetes and Digestive a (more content not included)... [facility] 12-24-2023 Note [facility] 12-24-2023 Note [facility] 12-21-2023 Hospital Discharge instructions Patient Education 12/21/2023 08:28:12 Orchitis Orchitis Orchitis is inflammation of a testicle. Testicles are the male organs that produce sperm. The testicles are held in a fleshy sac (scrotum) located behind the penis. Orchitis usually affects only one testicle, but it can affect both. Orchitis is caused by infection. Many kinds of bacteria and viruses can cause this infection. The condition can develop suddenly. What are the causes? This condition may be caused by: Infection from viruses or bacteria. Other organisms, such as fungi or parasites. This is rare but can happen in men who have a weak body defense system (immune system), such as men who have HIV. Bacteria Bacterial orchitis often occurs along with an infection of the tube that collects and stores sperm (epididymis). In men who are not sexually active, this infection usually starts as a urinary tract infection and spreads to the testicle. In sexually active men, sexually transmitted infections (STIs) are the most common cause of bacterial orchitis. These can include: ?Gonorrhea. ?Chlamydia. Viruses Mumps is the most common cause of viral orchitis, though mumps is now rare in many areas because of vaccination. Other viruses that can cause orchitis include: ?The chickenpox virus (varicella-zoster virus). ?The virus that causes mononucleosis (Dede Reyes virus). What increases the risk? The following factors may make you more likely to develop this condition: For viral orchitis: ?Not having been vaccinated against mumps. For bacterial orchitis: ?Having had frequent urinary tract infections. ?Engaging in high-risk sexual behaviors, such as having multiple sexual partners or having sex without using a condom. ?Having a sexual partner with an STI. ?Having had urinary tract surgery. ?Using a tube that is passed through the penis to drain urine (Tinsley catheter). ?Having an enlarged prostate gland. What are the signs or symptoms? The most common symptoms of orchitis are swelling and pain in the scrotum. Other signs and symptoms may include: Feeling generally sick (malaise). Fever and chills. Painful urination. Painful ejaculation. Headache. Fatigue. Nausea. Blood or discharge from the penis. Swollen lymph nodes in the groin area (inguinal nodes). How is this diagnosed? This condition may be diagnosed based on: Your symptoms. Your health care provider may suspect orchitis if you have a painful, swollen testicle along with other signs and symptoms of the condition. A physical exam. You may also have other tests, including: A blood test to check for signs of infection. A urine test to check for a urinary tract infection or STI. Using a swab to collect a fluid sample from the tip of the penis to test for STIs. Taking an image of the testicle using sound waves and a computer (testicular ultrasound). How is this treated? Treatment for this condition depends on the cause. For bacterial orchitis, your health care provider may prescribe antibiotic medicines. Bacterial infections usually clear up within a few days. For both viral infections and bacterial infections, treatment may include: Rest. Anti-inflammatory medicines. Pain medicines. Raising (elevating) the scrotum with a towel or pillow and applying ice. Follow these instructions at home: Managing pain and swelling Elevate your scrotum and apply ice as directed. To do this: Put ice in a plastic bag. Place a small towel or pillow between your legs. Rest your scrotum on the pillow or towel. Place another towel between your skin and the plastic bag. Leave the ice on for 20 minutes, 2 3 times a day. Remove the ice if your skin turns bright red. This is very important. If you cannot feel pain, heat, or cold, you have a greater risk of damage to the area. General instructions Rest as told by your health care provider. Take ibul-qfg-twomyfp and prescription medicines only as told by your health care provider. If you were prescribed an antibiotic medicine, take it as told by your health care provider. Do not stop taking the antibiotic even if you start to feel better. Do not have sex until your health care provider says it is okay to do so. Keep all follow-up visits. This is important. Contact a health care provider if: You have a fever. Pain and swelling have not gotten better after 3 days. Get help right away if: Your pain is getting worse. The swelling in your testicle gets worse. Summary Orchitis is inflammation of a testicle. It is caused by an infection from bacteria or a virus. The most common symptoms of orchitis are swelling and pain in the scrotum. Treatment for this condition depends on the cause. It may include medicines to fight the infection, reduce inflammation, and relieve the pain. Follow your health care provider's instructions about resting, icing, not having sex, and taking medicines. This information is not intended to replace advice given to you by your health care provider. Make sure you discuss any questions you have with your health care provider. Document Revised: 11/08/2021 Document Reviewed: 11/08/2021 [employer] Patient Education 2022 [employer]. 12/21/2023 08:28:11 Epididymitis Epididymitis Epididymitis is inflammation or swelling of the epididymis. This is caused by an infection. The epididymis is a cord-like structure that is located along the top and back part of the testicle. It collects and stores sperm from the testicle. This condition can also cause pain and swelling of the testicle and scrotum. Symptoms usually start suddenly (acute epididymitis). Sometimes epididymitis starts gradually and lasts for a while (chronic epididymitis). Chronic epididymitis may be harder to treat. What are the causes? In men ages 20 40, this condition is usually caused by a bacterial infection or a sexually transmitted infection (STI), such as gonorrhea or chlamydia. In men 40 and older, this condition is usually caused by bacteria from a urinary blockage or from abnormalities in the urinary system. These can result from: Having a tube placed into the bladder (urinary catheter). Having an enlarged or inflamed prostate gland. Having recently had urinary tract surgery. Having a problem with a backward flow of urine (retrograde). In men who have a condition that weakens the body's defense system (immune system), such as human immunodeficiency virus (HIV), this condition can be caused by: Other bacteria, including tuberculosis and syphilis. Viruses. Fungi. Sometimes this condition occurs without infection. This may happen because of trauma or repetitive activities such as sports. What increases the risk? You are more likely to develop this condition if you have: Unprotected sex with more than one partner. Anal sex. Had recent surgery. A urinary catheter. Urinary problems. A suppressed immune system. What are the signs or symptoms? This condition usually begins suddenly with chills, fever, and pain behind the scrotum and in the testicle. Other symptoms include: Swelling of the scrotum, testicle, or both. Pain when ejaculating or urinating. Pain in the back or abdomen. Nausea. Itching and discharge from the penis. A frequent need to pass urine. Redness, increased warmth, and tenderness of the scrotum. How is this diagnosed? Your health care provider can diagnose this condition based on your symptoms and medical history. Your health care provider will also do a physical exam to check your scrotum and testicle for swelling, pain, and redness. You may also have other tests, including: Testing of discharge from the penis. Testing your urine for infections, such as STIs. Ultrasound to check for blood flow and inflammation. Your health care provider may test you for other STIs, including HIV. How is this treated? Treatment for this condition depends on the cause. If your condition is caused by a bacterial infection, oral antibiotic medicine may be prescribed. If the bacterial infection has spread to your blood, you may need to receive IV antibiotics. For both bacterial and nonbacterial epididymitis, you may be treated with: Rest. Elevation of the scrotum. Pain medicines. Anti-inflammatory medicines. Surgery may be needed if: You have pus buildup in the scrotum (abscess). You have epididymitis that has not responded to other treatments. Follow these instructions at home: Medicines Take uexy-vit-yhcjrkd and prescription medicines only as told by your health care provider. If you were prescribed an antibiotic medicine, take it as told by your health care provider. Do not stop taking the antibiotic even if your condition improves. Sexual activity If your epididymitis was caused by an STI, avoid sexual activity until your treatment is complete. Inform your sexual partner or partners if you test positive for an STI. They may need to be treated. Do not engage in sexual activity with your partner or partners until their treatment is completed. Managing pain and swelling If directed, raise (elevate) your scrotum and apply ice. To do this: ?Put ice in a plastic bag. ?Place a small towel or pillow between your legs. ?Rest your scrotum on the pillow or towel. ?Place another towel between your skin and the plastic bag. ?Leave the ice on for 20 minutes, 2 3 times a day. ?Remove the ice if your skin turns bright red. This is very important. If you cannot feel pain, heat, or cold, you have a greater risk of damage to the area. Keep your scrotum elevated and supported while resting. Ask your health care provider if you should wear a scrotal support, such as a jockstrap. Wear it as told by your health care provider. Try taking a sitz bath to help with discomfort. This is a warm water bath that is taken while you are sitting down. The water should come up to your hips and should cover your buttocks. Do this 3 4 times per day or as told by your health care provider. General instructions Drink enough fluid to keep your urine pale yellow. Return to your normal activities as told by your health care provider. Ask your health care provider what activities are safe for you. Keep all follow-up visits. This is important. Contact a health care provider if: You have a fever. Your pain medicine is not helping. Your pain is getting worse. Your symptoms do not improve within 3 days. Summary Epididymitis is inflammation or swelling of the epididymis. This is caused by an infection. This condition can also cause pain and swelling of the testicle and scrotum. Treatment for this condition depends on the cause. If your condition is caused by a bacterial infection, oral antibiotic medicine may be prescribed. Inform your sexual partner or partners if you test positive for an STI. They may need to be treated. Do not engage in sexual activity with your partner or partners until their treatment is completed. Contact a health care provider if your symptoms do not improve within 3 days. This information is not intended to replace advice given to you by your health care provider. Make sure you discuss any questions you have with your health care provider. Document Revised: 12/07/2021 Document Reviewed: 12/07/2021 [employer] Patient Education 2022 [email or web address]. Follow Up Care 11/19/2023 09:46:55 With:NICOLE DIAZ, Cristo [place], URL Address: [address] [place] [phone] When: Unknown [facility] 12-21-2023 Note Patient Education Urology Orchitis Orchitis is inflammation of a testicle. Testicles are the male organs that produce sperm. The testicles are held in a fleshy sac (scrotum) located behind the penis. Orchitis usually affects only one testicle, but it can affect both. Orchitis is caused by infection. Many kinds of bacteria and viruses can cause this infection. The condition can develop suddenly. What are the causes? This condition may be caused by: ? Infection from viruses or bacteria. ? Other organisms, such as fungi or parasites. This is rare but can happen in men who have a weak body defense system (immune system), such as men who have HIV. Bacteria ? Bacterial orchitis often occurs along with an infection of the tube that collects and stores sperm (epididymis). ? In men who are not sexually active, this infection usually starts as a urinary tract infection and spreads to the testicle. ? In sexually active men, sexually transmitted infections (STIs) are the most common cause of bacterial orchitis. These can include: ? Gonorrhea. ? Chlamydia. Viruses ? Mumps is the most common cause of viral orchitis, though mumps is now rare in many areas because of vaccination. ? Other viruses that can cause orchitis include: ? The chickenpox virus (varicella-zoster virus). ? The virus that causes mononucleosis (Dede?Reyes virus). What increases the risk? The following factors may make you more likely to develop this condition: ? For viral orchitis: ? Not having been vaccinated against mumps. ? For bacterial orchitis: ? Having had frequent urinary tract infections. ? Engaging in high-risk sexual behaviors, such as having multiple sexual partners or having sex without using a condom. ? Having a sexual partner with an STI. ? Having had urinary tract surgery. ? Using a tube that is passed through the penis to drain urine (Tinsley catheter). ? Having an enlarged prostate gland. What are the signs or symptoms? The most common symptoms of orchitis are swelling and pain in the scrotum. Other signs and symptoms may include: ? Feeling generally sick (malaise). ? Fever and chills. ? Painful urination. ? Painful ejaculation. ? Headache. ? Fatigue. ? Nausea. ? Blood or discharge from the penis. ? Swollen lymph nodes in the groin area (inguinal nodes). How is this diagnosed? This condition may be diagnosed based on: ? Your symptoms. Your health care provider may suspect orchitis if you have a painful, swollen testicle along with other signs and symptoms of the condition. ? A physical exam. You may also have other tests, including: ? A blood test to check for signs of infection. ? A urine test to check for a urinary tract infection or STI. ? Using a swab to collect a fluid sample from the tip of the penis to test for STIs. ? Taking an image of the testicle using sound waves and a computer (testicular ultrasound). How is this treated? Treatment for this condition depends on the cause. For bacterial orchitis, your health care provider may prescribe antibiotic medicines. Bacterial infections usually clear up within a few days. For both viral infections and bacterial infections, treatment may include: ? Rest. ? Anti-inflammatory medicines. ? Pain medicines. ? Raising (elevating) the scrotum with a towel or pillow and applying ice. Follow these instructions at home: Managing pain and swelling Elevate your scrotum and apply ice as directed. To do this: ? Put ice in a plastic bag. ? Place a small towel or pillow between your legs. ? Rest your scrotum on the pillow or towel. ? Place another towel between your skin and the plastic bag. ? Leave the ice on for 20 minutes, 2?3 times a day. ? Remove the ice if your skin turns bright red. This is very important. If you cannot feel pain, heat, or cold, you have a greater risk of damage to the area. General instructions ? Rest as told by your health care provider. ? Take cxjo-yao-ghzpxfk and prescription medicines only as told by your health care provider. ? If you were prescribed an antibiotic medicine, take it as told by your health care provider. Do not stop taking the antibiotic even if you start to feel better. ? Do not have sex until your health care provider says it is okay to do so. ? Keep all follow-up visits. This is important. Contact a health care provider if: ? You have a fever. ? Pain and swelling have not gotten better after 3 days. Get help right away if: ? Your pain is getting worse. ? The swelling in your testicle gets worse. Summary ? Orchitis is inflammation of a testicle. It is caused by an infection from bacteria or a virus. ? The most common symptoms of orchitis are swelling and pain in the scrotum. ? Treatment for this condition depends on the cause. It may include medicines to fight the infection, reduce inflammation, and relieve the pain. ? Follow your health care provider (more content not included)... [facility] 12-19-2023 Note [facility] 11-23-2023 Note S/P TAVR Recent TTE - Aortic valve stable- - awaiting repeat echocardiogram scheduled at [facility] this week to assess cardiac function and AO valve/doppler [facility] 11-23-2023 Note [facility] 11-23-2023 Note Hypertension labile with dizziness/lightheadedness, syncope= decrease lisinopril to 10 mg daily and if b/p remains low and symptomatic recommended to then decrease to 5 mg daily. [facility] 11-23-2023 Note [facility] 11-23-2023 Note [facility] 11-22-2023 Note [facility] 11-19-2023 Hospital Discharge instructions Patient Education 11/19/2023 09:36:27 Epididymitis Epididymitis Epididymitis is inflammation or swelling of the epididymis. This is caused by an infection. The epididymis is a cord-like structure that is located along the top and back part of the testicle. It collects and stores sperm from the testicle. This condition can also cause pain and swelling of the testicle and scrotum. Symptoms usually start suddenly (acute epididymitis). Sometimes epididymitis starts gradually and lasts for a while (chronic epididymitis). Chronic epididymitis may be harder to treat. What are the causes? In men ages 20 40, this condition is usually caused by a bacterial infection or a sexually transmitted infection (STI), such as gonorrhea or chlamydia. In men 40 and older, this condition is usually caused by bacteria from a urinary blockage or from abnormalities in the urinary system. These can result from: Having a tube placed into the bladder (urinary catheter). Having an enlarged or inflamed prostate gland. Having recently had urinary tract surgery. Having a problem with a backward flow of urine (retrograde). In men who have a condition that weakens the body's defense system (immune system), such as human immunodeficiency virus (HIV), this condition can be caused by: Other bacteria, including tuberculosis and syphilis. Viruses. Fungi. Sometimes this condition occurs without infection. This may happen because of trauma or repetitive activities such as sports. What increases the risk? You are more likely to develop this condition if you have: Unprotected sex with more than one partner. Anal sex. Had recent surgery. A urinary catheter. Urinary problems. A suppressed immune system. What are the signs or symptoms? This condition usually begins suddenly with chills, fever, and pain behind the scrotum and in the testicle. Other symptoms include: Swelling of the scrotum, testicle, or both. Pain when ejaculating or urinating. Pain in the back or abdomen. Nausea. Itching and discharge from the penis. A frequent need to pass urine. Redness, increased warmth, and tenderness of the scrotum. How is this diagnosed? Your health care provider can diagnose this condition based on your symptoms and medical history. Your health care provider will also do a physical exam to check your scrotum and testicle for swelling, pain, and redness. You may also have other tests, including: Testing of discharge from the penis. Testing your urine for infections, such as STIs. Ultrasound to check for blood flow and inflammation. Your health care provider may test you for other STIs, including HIV. How is this treated? Treatment for this condition depends on the cause. If your condition is caused by a bacterial infection, oral antibiotic medicine may be prescribed. If the bacterial infection has spread to your blood, you may need to receive IV antibiotics. For both bacterial and nonbacterial epididymitis, you may be treated with: Rest. Elevation of the scrotum. Pain medicines. Anti-inflammatory medicines. Surgery may be needed if: You have pus buildup in the scrotum (abscess). You have epididymitis that has not responded to other treatments. Follow these instructions at home: Medicines Take mwvp-rpq-twuvtch and prescription medicines only as told by your health care provider. If you were prescribed an antibiotic medicine, take it as told by your health care provider. Do not stop taking the antibiotic even if your condition improves. Sexual activity If your epididymitis was caused by an STI, avoid sexual activity until your treatment is complete. Inform your sexual partner or partners if you test positive for an STI. They may need to be treated. Do not engage in sexual activity with your partner or partners until their treatment is completed. Managing pain and swelling If directed, raise (elevate) your scrotum and apply ice. To do this: ?Put ice in a plastic bag. ?Place a small towel or pillow between your legs. ?Rest your scrotum on the pillow or towel. ?Place another towel between your skin and the plastic bag. ?Leave the ice on for 20 minutes, 2 3 times a day. ?Remove the ice if your skin turns bright red. This is very important. If you cannot feel pain, heat, or cold, you have a greater risk of damage to the area. Keep your scrotum elevated and supported while resting. Ask your health care provider if you should wear a scrotal support, such as a jockstrap. Wear it as told by your health care provider. Try taking a sitz bath to help with discomfort. This is a warm water bath that is taken while you are sitting down. The water should come up to your hips and should cover your buttocks. Do this 3 4 times per day or as told by your health care provider. General instructions Drink enough fluid to keep your urine pale yellow. Return to your normal activities as told by your health care provider. Ask your health care provider what activities are safe for you. Keep all follow-up visits. This is important. Contact a health care provider if: You have a fever. Your pain medicine is not helping. Your pain is getting worse. Your symptoms do not improve within 3 days. Summary Epididymitis is inflammation or swelling of the epididymis. This is caused by an infection. This condition can also cause pain and swelling of the testicle and scrotum. Treatment for this condition depends on the cause. If your condition is caused by a bacterial infection, oral antibiotic medicine may be prescribed. Inform your sexual partner or partners if you test positive for an STI. They may need to be treated. Do not engage in sexual activity with your partner or partners until their treatment is completed. Contact a health care provider if your symptoms do not improve within 3 days. This information is not intended to replace advice given to you by your health care provider. Make sure you discuss any questions you have with your health care provider. Document Revised: 12/07/2021 Document Reviewed: 12/07/2021 [employer] Patient Education 2022 [email or web address]. 11/19/2023 09:36:26 Orchitis Orchitis Orchitis is inflammation of a testicle. Testicles are the male organs that produce sperm. The testicles are held in a fleshy sac (scrotum) located behind the penis. Orchitis usually affects only one testicle, but it can affect both. Orchitis is caused by infection. Many kinds of bacteria and viruses can cause this infection. The condition can develop suddenly. What are the causes? This condition may be caused by: Infection from viruses or bacteria. Other organisms, such as fungi or parasites. This is rare but can happen in men who have a weak body defense system (immune system), such as men who have HIV. Bacteria Bacterial orchitis often occurs along with an infection of the tube that collects and stores sperm (epididymis). In men who are not sexually active, this infection usually starts as a urinary tract infection and spreads to the testicle. In sexually active men, sexually transmitted infections (STIs) are the most common cause of bacterial orchitis. These can include: ?Gonorrhea. ?Chlamydia. Viruses Mumps is the most common cause of viral orchitis, though mumps is now rare in many areas because of vaccination. Other viruses that can cause orchitis include: ?The chickenpox virus (varicella-zoster virus). ?The virus that causes mononucleosis (Dede Reyes virus). What increases the risk? The following factors may make you more likely to develop this condition: For viral orchitis: ?Not having been vaccinated against mumps. For bacterial orchitis: ?Having had frequent urinary tract infections. ?Engaging in high-risk sexual behaviors, such as having multiple sexual partners or having sex without using a condom. ?Having a sexual partner with an STI. ?Having had urinary tract surgery. ?Using a tube that is passed through the penis to drain urine (Tinsley catheter). ?Having an enlarged prostate gland. What are the signs or symptoms? The most common symptoms of orchitis are swelling and pain in the scrotum. Other signs and symptoms may include: Feeling generally sick (malaise). Fever and chills. Painful urination. Painful ejaculation. Headache. Fatigue. Nausea. Blood or discharge from the penis. Swollen lymph nodes in the groin area (inguinal nodes). How is this diagnosed? This condition may be diagnosed based on: Your symptoms. Your health care provider may suspect orchitis if you have a painful, swollen testicle along with other signs and symptoms of the condition. A physical exam. You may also have other tests, including: A blood test to check for signs of infection. A urine test to check for a urinary tract infection or STI. Using a swab to collect a fluid sample from the tip of the penis to test for STIs. Taking an image of the testicle using sound waves and a computer (testicular ultrasound). How is this treated? Treatment for this condition depends on the cause. For bacterial orchitis, your health care provider may prescribe antibiotic medicines. Bacterial infections usually clear up within a few days. For both viral infections and bacterial infections, treatment may include: Rest. Anti-inflammatory medicines. Pain medicines. Raising (elevating) the scrotum with a towel or pillow and applying ice. Follow these instructions at home: Managing pain and swelling Elevate your scrotum and apply ice as directed. To do this: Put ice in a plastic bag. Place a small towel or pillow between your legs. Rest your scrotum on the pillow or towel. Place another towel between your skin and the plastic bag. Leave the ice on for 20 minutes, 2 3 times a day. Remove the ice if your skin turns bright red. This is very important. If you cannot feel pain, heat, or cold, you have a greater risk of damage to the area. General instructions Rest as told by your health care provider. Take kyjq-qpl-fkunqsz and prescription medicines only as told by your health care provider. If you were prescribed an antibiotic medicine, take it as told by your health care provider. Do not stop taking the antibiotic even if you start to feel better. Do not have sex until your health care provider says it is okay to do so. Keep all follow-up visits. This is important. Contact a health care provider if: You have a fever. Pain and swelling have not gotten better after 3 days. Get help right away if: Your pain is getting worse. The swelling in your testicle gets worse. Summary Orchitis is inflammation of a testicle. It is caused by an infection from bacteria or a virus. The most common symptoms of orchitis are swelling and pain in the scrotum. Treatment for this condition depends on the cause. It may include medicines to fight the infection, reduce inflammation, and relieve the pain. Follow your health care provider's instructions about resting, icing, not having sex, and taking medicines. This information is not intended to replace advice given to you by your health care provider. Make sure you discuss any questions you have with your health care provider. Document Revised: 11/08/2021 Document Reviewed: 11/08/2021 [employer] Patient Education 2022 [email or web address]. Follow Up Care 05/28/2023 09:33:29 With:NICOLE DIAZ, Cristo R, URL Address: [facility] [address] [place] [phone] When: Unknown Comments:1 month (no labs) [facility] 11-19-2023 Note Patient Education Urology Epididymitis Epididymitis is inflammation or swelling of the epididymis. This is caused by an infection. The epididymis is a cord-like structure that is located along the top and back part of the testicle. It collects and stores sperm from the testicle. This condition can also cause pain and swelling of the testicle and scrotum. Symptoms usually start suddenly (acute epididymitis). Sometimes epididymitis starts gradually and lasts for a while (chronic epididymitis). Chronic epididymitis may be harder to treat. What are the causes? In men ages 20?40, this condition is usually caused by a bacterial infection or a sexually transmitted infection (STI), such as gonorrhea or chlamydia. In men 40 and older, this condition is usually caused by bacteria from a urinary blockage or from abnormalities in the urinary system. These can result from: ? Having a tube placed into the bladder (urinary catheter). ? Having an enlarged or inflamed prostate gland. ? Having recently had urinary tract surgery. ? Having a problem with a backward flow of urine (retrograde). In men who have a condition that weakens the body's defense system (immune system), such as human immunodeficiency virus (HIV), this condition can be caused by: ? Other bacteria, including tuberculosis and syphilis. ? Viruses. ? Fungi. Sometimes this condition occurs without infection. This may happen because of trauma or repetitive activities such as sports. What increases the risk? You are more likely to develop this condition if you have: ? Unprotected sex with more than one partner. ? Anal sex. ? Had recent surgery. ? A urinary catheter. ? Urinary problems. ? A suppressed immune system. What are the signs or symptoms? This condition usually begins suddenly with chills, fever, and pain behind the scrotum and in the testicle. Other symptoms include: ? Swelling of the scrotum, testicle, or both. ? Pain when ejaculating or urinating. ? Pain in the back or abdomen. ? Nausea. ? Itching and discharge from the penis. ? A frequent need to pass urine. ? Redness, increased warmth, and tenderness of the scrotum. How is this diagnosed? Your health care provider can diagnose this condition based on your symptoms and medical history. Your health care provider will also do a physical exam to check your scrotum and testicle for swelling, pain, and redness. You may also have other tests, including: ? Testing of discharge from the penis. ? Testing your urine for infections, such as STIs. ? Ultrasound to check for blood flow and inflammation. Your health care provider may test you for other STIs, including HIV. How is this treated? Treatment for this condition depends on the cause. If your condition is caused by a bacterial infection, oral antibiotic medicine may be prescribed. If the bacterial infection has spread to your blood, you may need to receive IV antibiotics. For both bacterial and nonbacterial epididymitis, you may be treated with: ? Rest. ? Elevation of the scrotum. ? Pain medicines. ? Anti-inflammatory medicines. Surgery may be needed if: ? You have pus buildup in the scrotum (abscess). ? You have epididymitis that has not responded to other treatments. Follow these instructions at home: Medicines ? Take ohip-mvx-dzltzkj and prescription medicines only as told by your health care provider. ? If you were prescribed an antibiotic medicine, take it as told by your health care provider. Do not stop taking the antibiotic even if your condition improves. Sexual activity ? If your epididymitis was caused by an STI, avoid sexual activity until your treatment is complete. ? Inform your sexual partner or partners if you test positive for an STI. They may need to be treated. Do not engage in sexual activity with your partner or partners until their treatment is completed. Managing pain and swelling ? If directed, raise (elevate) your scrotum and apply ice. To do this: ? Put ice in a plastic bag. ? Place a small towel or pillow between your legs. ? Rest your scrotum on the pillow or towel. ? Place another towel between your skin and the plastic bag. ? Leave the ice on for 20 minutes, 2?3 times a day. ? Remove the ice if your skin turns bright red. This is very important. If you cannot feel pain, heat, or cold, you have a greater risk of damage to the area. ? Keep your scrotum elevated and supported while resting. Ask your health care provider if you should wear a scrotal support, such as a jockstrap. Wear it as told by your health care provider. ? Try taking a sitz bath to help with discomfort. This is a warm water bath that is taken while you are sitting down. The water should come up to your hips and should cover your buttocks. Do this 3?4 times per day or as told by your health care provider. General instructions ? Drink enough fluid to keep (more content not included)... [facility] 11-16-2023 Note [facility] 11-08-2023 Progress note Note Date/Time November 08, 2023 7:20am [facility] [address] [place] [address] Wound Center Provider Note Signed Patient: Marilu Dan MR#: [id number] : 1950 Acct:[id number] Age/Sex: 73 / M Copies to: MD Narcisa Gibson APRN~ HPI Date of Visit Date of Visit: Date of Service: 11/08/2023 Time of Service: 07:18 Narrative HPI: 10/30/23 Marilu is a 73 year old male presenting to [facility] wound care for an initial visit for eval and treatment of scrotal/sacral/buttock area ulcers and fungal rash. He was referred by urology. His and daughter are present today. He has hhc through [facility] and this should continue. I did start a cleanse with theraworx protect as well as vashe and also nystatin powder and honey sheet. I wanted to order oral diflucan but this interacted with too many of his current medications. His healing will depend on his diet and lifestyle and control of his diabetes- he says his sugars run in the 200s currently and heand his family are unsure of any a1c values. I am concerned that with sugars in the 200s healing will be severely delayed. We spoke about diet and lifestyle andhis paperwork did address these topics. Pressure relied of course will be neededto assist the healing process. Marilu can return in about 10 days so we can see how things are going. I see no need for any surgical consult at this time but ifthe left buttock area reveals something deeper then we certainly can look into this. I see no acute infection other than the fungal rash and this will be treated with the theraworx protect as well as the nystatin. 11/08/23 much improved today, same orders for now, will return in about 3 weeks, no signs of infection, fungal rash has more or less resolved, and daughter present today Subjective Pain Left Buttock: Pain Description: Intermittent Pain Intensity: 0 Wound/Ulcer History When did wound start?: October 2023 Left buttock ulcer Mode of Arrival/ Baggage Handler: Family Assistive Device Used Today: Cane Lives with:: Spouse Appetite Description: Within Normal Limits Who helps w/ dressing change?: Family and Home Health Why Do You Need Help?: Can't Reach Ulcer, Unsafe leave home by self and Taxing effort to leave home Smoking Status: Former smoker [facility] Medical History (Updated 10/30/23 @ 07:26 by Narcisa Mckee APRN) Decubitus ulcer of left buttock Displaced fracture of tibia Diabetic polyneuropathy Dementia Acute embolism and thrombosis of deep vein of both upper extremities (06/17/18) Type 2 diabetes mellitus with hyperglycemia Hypertension Hyperlipemia Heart attack Essential (primary) hypertension Chronic obstructive pulmonary disease, unspecified (03/03/15) BPH (benign prostatic hyperplasia) cystoscopy with dilation 03/14/22. Tinsley left in post procedure Diabetes mellitus, type 2 Hyperlipidemia Coronary artery disease Surgical History History of cardiac cath History of heart surgery valve replacement History of heart bypass surgery Family History Father Heart disease Mother Diabetes Heart disease Social History Smoking Status: Former smoker Tobacco Type: cigarettes Substance Use Type: None Grafts History of Graft History of Graft?: No Exam Physical Exam Vital Signs: Temp Pulse Resp BP O2 Del Method 97.5 F L 80 18 91/53 L Room Air 11/08/23 07:08 11/08/23 07:08 11/08/23 07:08 11/08/23 07:08 11/08/23 07:08 Const General: cooperative, comfortable and frail appearing Nutritional Appearance: average body habitus Orientation: alert, awake and oriented x3 Lower/Upper Extremity Exam Vascular Exam-Edema Scrotal: Edema Type: Non-Pitting Vascular Exam-Pulses Right Brachial: Pulse Assessment Method: NIBP Objective Meds/Allergies Home Medications isosorbide mononitrate 30 mg tablet,extended release 24 hr 30 mg PO DAILY 03/17/22 [History Confirmed 10/30/23] lisinopril 20 mg tablet 15 mg PO DAILY 03/17/22 [History Confirmed 10/30/23] metoprolol tartrate 50 mg tablet 25 mg PO BID 03/17/22 [History Confirmed 10/30/23] rivaroxaban 20 mg tablet (Xarelto) 20 mg PO DAILY 03/17/22 [History Confirmed 10/30/23] simvastatin 40 mg tablet 40 mg PO DAILY 03/17/22 [History Confirmed 10/30/23] tamsulosin 0.4 mg capsule 0.4 mg PO BID 03/17/22 [History Confirmed 10/30/23] pantoprazole 40 mg tablet,delayed release 40 mg PO DAILY 10/18/23 [History Confirmed 10/30/23] dutasteride 0.5 mg capsule (Avodart) 0.5 mg PO DAILY 10/30/23 [History Confirmed 10/30/23] metformin 500 mg tablet,extended release 24 hr 1,000 mg (2 x 500 mg) PO BID 90 days #360 tabs 10/30/23 [Rx] nystatin 100,000 unit/gram topical powder 1 applic topical BID 4 weeks #15 grams 10/30/23 [Rx] spironolactone 25 mg tablet (Aldactone) 25 mg PO DAILY 10/30/23 [History Confirmed 10/30/23] Allergies erythromycin base Allergy (Unknown, Verified 10/18/23 09:23) Vomiting Penicillins Allergy (Unknown, Verified 10/18/23 09:23) Swelling sulfamethoxazole [Bactrim] Allergy (Unknown, Verified 10/18/23 09:23) Hives trimethoprim [Bactrim] Allergy (Unknown, Verified 10/18/23 09:23) Hives Sulfa (Sulfonamide Antibiotics) Allergy (Verified 10/18/23 09:23) Unknown Reaction ANTIBIOTICS Allergy (Unknown, Uncoded 10/10/23 08:27) Hives Wound/Ulcer Left Buttock: Type: Pressure/Injury Ulcer (with fungal rash) Pressure Ulcer/Injury Staging: Stage 3 Bed Appearance: Hannibal and Yellow Percent of Wound Bed Granulated/Red: 80 Percent of Devitalized: 20 Length (cm): 1.8 Width (cm): 1.2 Depth (cm): 0.1 CM Sq: 2.160 Surrounding Tissue Appearance: Hannibal Surrounding Tissue Temp: Warm Drainage Amount: Moderate Drainage Description: Serosanguineous Drainage Odor: No Odor Results Height: 5 ft 6 in Weight: 2.438 kg Body Mass Index: 0.8 Assessment/Plan Assessment/Plan (1) Decubitus ulcer of left buttock: Qualifiers: Pressure injury stage: stage 3 Qualified Code(s): L89.323 - Pressure ulcer of left buttock, stage 3 Code(s): L89.329 - Pressure ulcer of left buttock, unspecified stage (2) Candidiasis: Code(s): B37.9 - Candidiasis, unspecified Plan: much improved (3) Diabetes mellitus, type 2: Qualifiers: Diabetes mellitus intermediate manager insulin use: without fpc use Diabetes mellitus complication status: with circulatory complication Code(s): E11.9 - Type 2 diabetes mellitus without complications (4) Use of cane as ambulatory aid: Code(s): Z99.89 - Dependence on other enabling machines and devices (5) Wound pain: (6) Inflammation: Plan see orders and hpi Time spent with patient Time Spent With Patient (min): 13 Dictated By: Narcisa Mckee APRN DD/ 7 Signed By: <Electronically signed by JOES ENRIQUE Mckee> 11/08/23719 [facility] Work Phone: 1(184) 477-819906-18-2024 Progress note Author Narcisa Mckee [facility] October 30, 2023 7:33am Note Date/Time October 30, 2023 7:33 am [facility] [address] [place] [address] Wound Center Provider Note Signed Patient: Marilu Dan MR#: [id number] : 1950 Acct:[id number] Age/Sex: 73 / M Copies to: MD Narcisa Gibson APRN~ HPI Date of Visit Date of Visit: Date of Service: 10/30/2023 Time of Service: 07:23 Narrative HPI: 10/30/23 Marilu is a 73 year old male presenting to [facility] wound care for an initial visit for eval and treatment of scrotal/sacral/buttock area ulcers and fungal rash. He was referred by urology. His and daughter are present today. He has hhc through [facility] and this should continue. I did start a cleanse with theraworx protect as well as vashe and also nystatin powder and honey sheet. I wanted to order oral diflucan but this interacted with too many of his current medications. His healing will depend on his diet and lifestyle and control of his diabetes- he says his sugars run in the 200s currently and heand his family are unsure of any a1c values. I am concerned that with sugars in the 200s healing will be severely delayed. We spoke about diet and lifestyle andhis paperwork did address these topics. Pressure relied of course will be neededto assist the healing process. Marilu can return in about 10 days so we can see how things are going. I see no need for any surgical consult at this time but ifthe left buttock area reveals something deeper then we certainly can look into this. I see no acute infection other than the fungal rash and this will be treated with the theraworx protect as well as the nystatin. Subjective Pain Left Buttock: Pain Description: Intermittent Wound/Ulcer History When did wound start?: October 2023 Left buttock ulcer Mode of Arrival/ Baggage Handler: Family Assistive Device Used Today: Kenny Lives with:: Spouse Appetite Description: Within Normal Limits Who helps w/ dressing change?: Family and Home Health Why Do You Need Help?: Can't Reach Ulcer, Unsafe leave home by self and Taxing effort to leave home Smoking Status: Former smoker [facility] Medical History (Updated 10/30/23 @ 07:26 by Narcisa Mckee APRN) Decubitus ulcer of left buttock Displaced fracture of tibia Diabetic polyneuropathy Dementia Acute embolism and thrombosis of deep vein of both upper extremities (06/17/18) Type 2 diabetes mellitus with hyperglycemia Hypertension Hyperlipemia Heart attack Essential (primary) hypertension Chronic obstructive pulmonary disease, unspecified (03/03/15) BPH (benign prostatic hyperplasia) cystoscopy with dilation 03/14/22. Tinsley left in post procedure Diabetes mellitus, type 2 Hyperlipidemia Coronary artery disease Surgical History History of cardiac cath History of heart surgery valve replacement History of heart bypass surgery Family History Father Heart disease Mother Diabetes Heart disease Social History Smoking Status: Former smoker Tobacco Type: cigarettes Substance Use Type: None Grafts History of Graft History of Graft?: No Exam Physical Exam Vital Signs: Temp Pulse Resp BP O2 Del Method 97.9 F 106 H 20 113/67 Room Air 10/30/23 07:10 10/30/23 07:10 10/30/23 07:10 10/30/23 07:10 10/30/23 07:10 Const General: cooperative, comfortable and frail appearing Nutritional Appearance: average body habitus Orientation: alert, awake and oriented x3 Lower/Upper Extremity Exam Vascular Exam-Edema Scrotal: Edema Type: Non-Pitting Vascular Exam-Pulses Right Brachial: Pulse Assessment Method: NIBP Objective Meds/Allergies Home Medications isosorbide mononitrate 30 mg tablet,extended release 24 hr 30 mg PO DAILY 03/17/22 [History Confirmed 10/30/23] lisinopril 20 mg tablet 15 mg PO DAILY 03/17/22 [History Confirmed 10/30/23] metformin 500 mg tablet,extended release 24 hr 1,000 mg PO BID 03/17/22 [History Confirmed 10/30/23] metoprolol tartrate 50 mg tablet 25 mg PO BID 03/17/22 [History Confirmed 10/30/23] rivaroxaban 20 mg tablet (Xarelto) 20 mg PO DAILY 03/17/22 [History Confirmed 10/30/23] simvastatin 40 mg tablet 40 mg PO DAILY 03/17/22 [History Confirmed 10/30/23] tamsulosin 0.4 mg capsule 0.4 mg PO BID 03/17/22 [History Confirmed 10/30/23] pantoprazole 40 mg tablet,delayed release 40 mg PO DAILY 10/18/23 [History Confirmed 10/30/23] dutasteride 0.5 mg capsule (Avodart) 0.5 mg PO DAILY 10/30/23 [History Confirmed 10/30/23] nystatin 100,000 unit/gram topical powder 1 applic topical BID 4 weeks #15 grams10/30/23 [Rx] spironolactone 25 mg tablet (Aldactone) 25 mg PO DAILY 10/30/23 [History Confirmed 10/30/23] Allergies erythromycin base Allergy (Unknown, Verified 10/18/23 09:23) Vomiting Penicillins Allergy (Unknown, Verified 10/18/23 09:23) Swelling sulfamethoxazole [Bactrim] Allergy (Unknown, Verified 10/18/23 09:23) Hives trimethoprim [Bactrim] Allergy (Unknown, Verified 10/18/23 09:23) Hives Sulfa (Sulfonamide Antibiotics) Allergy (Verified 10/18/23 09:23) Unknown Reaction ANTIBIOTICS Allergy (Unknown, Uncoded 10/10/23 08:27) Hives Wound/Ulcer Left Buttock: Type: Pressure/Injury Ulcer (with fungal rash) Pressure Ulcer/Injury Staging: Stage 3 Bed Appearance: Hannibal and Yellow Percent of Wound Bed Granulated/Red: 5 Percent of Devitalized: 95 Length (cm): 4.8 Width (cm): 2.5 Depth (cm): 0.2 CM Sq: 12.000 Surrounding Tissue Appearance: Hannibal Surrounding Tissue Temp: Warm Drainage Amount: Moderate Drainage Description: Serosanguineous Drainage Odor: No Odor Results Height: 5 ft 6 in Weight: 2.438 kg Body Mass Index: 0.8 Assessment/Plan Assessment/Plan (1) Decubitus ulcer of left buttock: Qualifiers: Pressure injury stage: stage 3 Qualified Code(s): L89.323 - Pressure ulcer of left buttock, stage 3 Code(s): L89.329 - Pressure ulcer of left buttock, unspecified stage (2) Candidiasis: Code(s): B37.9 - Candidiasis, unspecified (3) Diabetes mellitus, type 2: Qualifiers: Diabetes mellitus fpc insulin use: without fpc use Diabetes mellitus complication status: with circulatory complication Code(s): E11.9 - Type 2 diabetes mellitus without complications (4) Use of cane as ambulatory aid: Code(s): Z99.89 - Dependence on other enabling machines and devices (5) Wound pain: (6) Inflammation: Plan see orders and hpi Time spent with patient Time Spent With Patient (min): 20 Dictated By: Narcisa Mckee APRN DD/ 2 Signed By: <Electronically signed by JOSE ENRIQUE Mckee> 10/30/23 0233 [facility] Work Phone: 1(990) 220-663106-14-2024 [facility] NoteSent the AVS to [facility] 10-12-2023 [facility] 10-11-2023 NoteSocial worker met with patient at the bedside to discuss discharge plans and need for HHC. poultry farm worker sent out several HHC referrals. Awaiting accepting agency. [facility] will continue to follow. [facility] accepted. AVS updated.[facility]05-30-2024 Note [facility]05-30-20[facility]29[facility]05-27-[facility] Note [facility]-25-[facility]24 Note [facility]05-09-20[facility]24 Note [facility]04-05-20[facility] Hospital Discharge instructions Patient Education 06/25/2023 09:48:36 [...] testicles retract and pull them up higher orinto the abdomen. A normal testicle is egg-shaped [...] provider. Document Revised: 04/05/2020 Document Reviewed: 04/05/2020 [employer] Patient Education 2022 [employer]. Follow Up Care 06/20/2023 07:47:35 With:NICOLE DIAZ, Cristo Frances, URL Address: [facility] [address] [place] [address]- [phone] When: Unknown Comments:has f/u scheduled 11/19/23 [facility] [place] 02-02-[facility]-04[facility]2023 Evaluation note* Encounter Date Diagnosis Assessment Notes Treatment Notes Treatment Clinical Notes Mar, Hyperglycemia due to type 2 diabetes mellitus (ICD-10 - E11.65) [facility] Other 10-16-2023 Hospital Discharge instructions Patient Education [...] urethra. Follow these instructions at home: Take jdau-tbg-sebimtk and prescription medicines only as told by [...] provider. Document Revised: 11/16/2021 Document Reviewed: 11/16/2021 [employer] Patient Education 2022 [employer]. Follow Up Care 11/27/2022 10:22:53 With:NICOLE DIAZ, Cristo Frances, URL Address: [facility] [address] [place] [address]- When:Within 3 Month(s) Comments:w/AFSHAN [facility] [place] 07-17-2023 Hospital Discharge instructions Patient Education 11/27/2022 10:11:18 [...] urethra. Follow these instructions at home: Take hdrd-mdk-imgnoms and prescription medicines only as told by [...] provider. Document Revised: 11/16/2021 Document Reviewed: 11/16/2021 [employer] Patient Education 2022 [employer]. Follow Up Care 09/25/2022 16:49:26 With:NICOLE DIAZ, Cristo Frances, URL Address: [facility] [address] [place] [address]- [phone] When: Unknown Comments:3 mos [facility]* Encounter Date Diagnosis Assessment Notes Treatment Notes Treatment Clinical Notes Nov, Hyperglycemia due to type 2 diabetes mellitus (ICD-10 - E11.65) [facility] Other 05-08-2023 Evaluation note* Encounter Date Diagnosis Assessment Notes Treatment Notes Treatment Clinical Notes September, Diabetic polyneuropathy associated with type 2 diabetes mellitus (ICD-10 - E11.42) [facility] Other 05-01-2023 Evaluation note* Encounter Date Diagnosis Assessment Notes Treatment Notes Treatment Clinical Notes September, Skin ulcer of toe of right foot, limited to breakdown of skin (ICD-10 - L97.511) No open area, mainly erythema. Agrees to podiatry referral for nail care and rx shoes. [facility] Other 04-13-2023 Evaluation note* Encounter Date Diagnosis Assessment Notes Treatment Notes Treatment Clinical Notes Aug, Diabetic polyneuropathy associated with type 2 diabetes mellitus (ICD-10 - E11.42) Hand wrote order for diabetic shoes. Trial of Lyrica as a new medication. We will start with low-dose and check again in 1 month consider increasing dose at that time. [facility] Other 02-28-2023 Evaluation note* Encounter Date Diagnosis Assessment Notes Treatment Notes Treatment Clinical Notes Jun, Right leg pain (ICD-10 - M79.604) Discussed US to r/o DVT and then consider more compression hose, elevation and tylenol for pain Jun, Right hip pain (ICD-10 - M25.551) no injury. will base referral if needed on Xray result. [facility] Other 01-23-2023 Hospital Discharge instructions Patient Education [...] reconstructed. Follow these instructions at home: Take hnei-pjw-fgopxoy and prescription medicines only as told by [...] 05/26/2016 Document Revised: 12/11/2018 Document Reviewed: 12/11/2018 [employer] Patient Education 2020 [employer]. Follow Up Care 05/02/2022 08:31:24 With:NICOLE DIAZ, Cristo Frances, URL Address: [facility] [address] [place] [address]- When: Unknown [facility] 11-05-2022 Progress note Author Neno Moreira [facility] March 18, 2022 10:39am Note Date/Time March 18, 2022 1 0:28am [facility] [address] [place], [place] [id number] Hospitalist Progress Note Signed Patient: Marilu Dan MR#: [id number] : 1950 Acct:[id number] Age/Sex: 71 / M Adm Date: 2 Loc: Room: [address] [place] [address] Type: ADM IN Attending Dr: Neno Moreira MD Copies to: ~ Date of Service: 03/18/2022 Subjective Subjective Narrative: Patient was seen and examined at bedside. Patient remained afebrile and hemodynamically stable overnight. Reports improvement in his symptoms. denies any active complaints. Underwent angiographic evaluation yesterday patent grafts, no interventions needed. Also we got a blood culture report from Kevyn Ferris that [...] Ml IV 03/17/23 00:29 Not Given .Q8H COUNT INCLUDES THE [facility] Aztreonam 1 gm in 100 mls @ 200 mls/hr 03/17/22 05:30 03/18/22 08:55 Azactam IV Not Given Q8H COUNT INCLUDES THE [facility] Insulin Aspart 0 units 03/17/22 08:00 03/18/22 09:14 Insulin Aspart 300 Units/3 Ml Insuln.Pen SUBCUT 03/17/23 07:59 3 units TID.WM.HS COUNT INCLUDES THE [facility] Administration Protocol Insulin Glargine 10 units 03/17/22 [...] <Electronically signed by Neno Moreira MD> 03/18/22 1039 [facility] Work Phone: 1(508) 649-965311-04-2022 Consult note Author Marlon Shetty [facility] March 17, 2022 2:27pm Note Date/Time March 17, 2022 2 :21pm [facility] [address] [place] [address] Cardiology Consult Note Signed Patient: Marilu Dan MR#: [id number] : 1950 Acct:[id number] Age/Sex: 71 / M Adm Date: 2 Loc: Room: [address] [place] [address] Type: ADM IN Attending Dr: Neno Moreira MD Copies to: MD Neno Gibson MD W Scott Sheldon, DO~ Cardiology HPI History of Present Illness Consult Date: 03/17/22 Reason for Consult: Acute non-ST elevation [place] HPI: Mr. Dan is a 71 year old male seen in interventional cardiology consultationat request of the hospitalist for acute non-ST elevation myocardial infarction. Patient was transferred from [facility] primarily due to urosepsis. He presented to [...] noted for ASHD with four-vessel bypass in [place] around the 2014 time period. This was followed by [facility] around 2017, and patient continues to follow with primary respiratory therapy director Dr. Ospina. He has had no complaints [...] L 0.9 L 0.9 L (1.00-4.8) x10E3/uL [place] # (Auto) 0.9 H 1.0 H 0.9 [...] <Electronically signed by Marlon Shetty DO> 03/17/22 1426 [facility] Work Phone: 1(700) 888-688411-04-2022 Progress note Author Neno Moreira [facility] March 17, 2022 2:05pm Note Date/Time March 17, 2022 2 :05pm [facility] [address] [place] [address] Hospitalist Progress Note Signed Patient: Marilu Dan MR#: [id number] : 1950 Acct:[id number] Age/Sex: 71 / M Adm Date: 2 Loc: Room: [address] [place] [address] Type: ADM IN Attending Dr: Neno Moreira [...] pending - ICU monitoring Hypotension presented on mtnbmpatg-zrrwtllss-qojao responsive ? UA positive for UTI. ? [...] signed by Neno Moreira MD> 03/17/22 1405 [facility] Work Phone: 1(441) 983-881411-04-2022 [facility] History and physical note Author Paulina Alexander [facility] March 17, 2022 4:30am Note Date/Time March 17, 2022 4 :25am [facility] [address] [place] [address] Hospitalist H&P Signed Patient: Marilu Dan MR#: [id number] : 1950 Acct:[id number] Age/Sex: 71 / M Adm Date: 2 Loc: Room: [address] [place] [address] Type: ADM IN Attending Dr: Madeline Barry [...] and after discussing the case with our respiratory therapy director on-call patient was started on heparin drip [...] % (Auto) 13.2 % (.) 03/17/22 03:38 [place] % (Auto) 14.6 % (.) 03/17/22 03:38 Eos % (Auto) 0.0 % (.) 03/17/22 03:38 Baso % (Auto) 0.2 % (.) 03/17/22 03:38 Neut # (Auto) 5.1 x10E3/uL (1.8-7.7) 03/17/22 03:38 Lymph # (Auto) 0.9 x10E3/uL (1.00-4.8) L 03/17/22 03:38 [place] # (Auto) 1.0 x10E3/uL (0.0-0.8) H 03/17/22 [...] Flomax Documented By: Paulina Walker MD 2 0418 Signed By: <Electronically signed by Paulina Walker MD> 03/17/22 0430 [facility] Work Phone: 1(385) 456-412011-01-2022 Hospital Discharge instructions Patient Education 03/14/2022 13:27:00 [...] Follow these instructions at home: Medicines Take ojws-zmh-swqpyvj and prescription medicines only as told by [...] or the blood stops without treatment. Take apkb-agv-hwvbjkv and prescription medicines only as told by your health care provider. Drink enough fluid to keep your urine clear or pale yellow. This information is not intended to replace advice given to you by your health care provider. Make sure you discuss any questions you have with your health care provider. Document Released: 04/30/2006 Document Revised: 09/24/2019 Document Reviewed: 06/02/2017 [employer] Patient Education 2019 [employer]. Follow Up Care 02/27/2022 11:25:53 With:NICOLE DIAZ, Cristo Frances, URL Address: [facility] [address] [place] [address]- [phone] When:Within 3 Day(s) Comments:Sunday for tinsley removal [facility] 10-17-2022 Hospital Discharge instructions Patient Education [...] Follow these instructions at home: Medicines Take rwws-dtr-pkhpgwl and prescription medicines only as told by [...] or the blood stops without treatment. Take cyuh-yet-ddigwdz and prescription medicines only as told by your health care provider. Drink enough fluid to keep your urine clear or pale yellow. This information is not intended to replace advice given to you by your health care provider. Make sure you discuss any questions you have with your health care provider. Document Released: 04/30/2006 Document Revised: 09/24/2019 Document Reviewed: 06/02/2017 [employer] Patient Education 2019 [employer] Follow Up Care 02/26/2022 13:59:10 With:NICOLE DIAZ, Cristo Frances, URL Address: [facility] [address] [place] [address] [phone] When: Unknown [facility] 04-26-2022 History of Present illness Narrative* Shaista Torres RN - 09/06/2021 1:30 PM EDT Patient received NPO instructions and pre-op medication instructions to be taken on the day of the procedure with a small sip of water. Pt was also given pre-op eye drop instructions from Dr. Mathur. Patient is covid vaccinated, no need to covid test at this time. documented in this [facility] Work Phone: 1(291) 402-787701-27-2022 NoteClinical Information Procedure: left ear auriculectomy, Pre-operative [...] present at the tissue margins. Solar elastosis. [id number] [id number] Cody Gomes MD PhD (Electronically signed by) Verified: 06/13/21 12:25[facility] HospitalComment on above:Performed By: #### SPR #### [facility] (DEFAULT) [address] [place], [place] [address]Discharge summary Author Neno Moreira [facility] March 19, 2022 1:57pm Note Date/Time March 19, 2022 1 :32pm [facility] [address] [place] [address] Discharge Summary Signed Patient: Marilu Dan MR#: [id number] : 1950 Acct:[id number] Age/Sex: 71 / M Adm Date: 2 Loc: Room: [address] [place] [address]: Neno Moreira MD Copies to: [...] and weakness for which he went to [facility] for further evaluation and management. Patient was [...] and after discussing the case with our respiratory therapy director on-call patient was started on heparin drip [...] treat underlying urosepsis and follow-up withhis primary respiratory therapy director as outpatient. Patient was started on Azactam on admission due to penicillin allergy. Urine and blood cultures from [facility] was sent home for which showed Proteus [...] & COR Angio w/grafts - W Manpreet Shetty DO Diagnostic Studies Completed and Pending Studies [...] % (Auto) 66.2, Lymph % (Auto) 20.4, [place] % (Auto) 12.2, Eos % (Auto) 1.0, Baso % (Auto) 0.2, Neut # (Auto) 3.3, Lymph # (Auto) 1.0, [place] # (Auto) 0.6, Eos # (Auto) 0.0, [...] PCP after discharge DISCHARGE INSTRUCTIONS FOR CARDIAC CAR AND YARD SUPERVISOR PHONE NUMBER OF YOUR PHYSICIAN: [phone] PROCEDURE: Heart Cath The following instructions have [...] cold, numb, blue or white, call the respiratory therapy director immediately. 4. ACTIVITY: You are advised to [...] bottle, follow the instructions on the bottle. [facility] is not responsible for incorrect prescription information [...] hyclate 100 mg capsule Follow Up: Cristo Rievra MD [Active Staff] - (Call office to schedule follow-up with Urologist. ) Mary Beth Pitts MD [Primary Care Provider] - (Call office on Sunday to schedulefollow-up with your Primary Care Provider in 3-5 days. ) Documented By: Neno Moreira MD 03/19/22 13 30 Signed By: <Electronically signed by Neno Moreira MD> 03/19/22 9307 [facility] Work Phone: Evaluation + Plan note Future Appointments Appointment Date:03/14/2022 12:45:00 PM Scheduled Provider:Cristo RIVERA MD Location:[facility] Appointment Type:URO Procedure 15 min Diagnostic Tests Pending * Creatinine 02/27/22 [facility] evaluation + Plan note Future Appointments Appointment Date:03/17/2022 08:30:00 AM Scheduled Provider: Location:[facility] Appointment Type:URO Nurse Visit [facility] Evaluation + Plan note Future Appointments Appointment Date:07/18/2022 01:00:00 PM Scheduled Provider:Cristo RIVERA MD Location:[facility] Appointment Type:URO Procedure 15 min [facility] evaluation + Plan note Future Appointments Appointment Date:02/26/2023 09:30:00 AM Scheduled Provider:Cristo RIVERA MD Location:[facility] Appointment Type:URO Office Visit [facility] evaluation + Plan note Future Appointments Appointment Date:05/28/2023 08:45:00 AM Scheduled Provider:Cristo RIVERA MD Location:[facility] Appointment Type:URO Office Visit [facility] evaluation + Plan note Future Appointments Appointment Date:11/19/2023 08:45:00 AM Scheduled Provider:Cristo RIVERA MD Location:[facility] Appointment Type:URO Office Visit [facility] evaluation + Plan note Future Appointments Appointment Date:12/21/2023 09:15:00 AM Scheduled Provider:Cristo RIVERA MD Location:[facility] Appointment Type:URO Office Visit [facility] evaluation + Plan note Future Appointments Appointment Date:02/15/2024 08:45:00 AM Scheduled Provider:Cristo RIVERA MD Location:[facility] Appointment Type:URO Office Visit [facility] evaluation + Plan note Future Appointments Appointment Date:06/13/2024 08:00:00 AM Scheduled Provider:Cristo RIVERA MD Location:[facility] Appointment Type:URO Office Visit [facility] evaluation + Plan note Future Appointments Appointment Date:06/13/2024 08:00:00 AM Scheduled Provider:[facility] Office Visit Diagnostic Tests Pending * Urine Culture 02/15/24 [facility] evaluation + Plan note Future Appointments Appointment Date:06/13/2024 08:00:00 AM Scheduled Provider:Cristo RIVERA MD Location:[facility] Appointment Type:URO Office Visit Diagnostic Tests Pending * Urine Culture 03/25/24 [facility] evaluation + Plan note Future Appointments Appointment Date:09/29/2024 09:30:00 AM Scheduled Provider:Cristo RIVERA MD Location:[facility] Appointment Type:URO Office Visit [facility] evaluation note* Diagnosis Combined forms of age-related cataract of left eye- Primary Other and combined forms of senile cataract documented in this encounter [facility] Work Phone: evaluation note* Diagnosis Onset Date Resolution Status Acute UTI acute Tinsley catheter in place prior to arrival acute Gram-negative bacteremia acu te History of heart bypass surgery acute History of heart surgery acu te Hypotension acute NSTEMI (non-ST elevated myocardial infarction) acute Sepsis acute [facility] Work Phone: Evaluation noteNo assessment information available [facility] Work Phone: Evaluation noteNo [facility]NortR[facility] [place] Other Evaluation note* Diagnosis Onset Date Resolution Status Coronary artery disease acut e Diabetes mellitus, type 2 ac [facility] Hypotension acute Sepsis acute Candidiasis acute Decubitus ulcer of left buttock acute Diabetes mellitus, type 2 ac [facility] Inflammation acute Use of cane as ambulatory aid acute Wound pain acute [facility] Work Phone: History general Narrative - Reported* Type Description [...] History Heart attack , pneumonia sepsis 02/2022 [facility] Other Hospital course Narrative No data available for this section [facility] Discharge instructions* Instructions* Roberta Vazquez DO [...] the healing period. The office number is [phone]. Take surgery bag and all eye drops to Dr. Vazquez's office tomorrow at 9:50am. You may resume your normal diet. Start your eye drops tomorrow after your post-op appointment: Ofloxacin/Polytrim one drop to the operated eye 4 times daily Prednisolone one drop to the operated eye 4 times daily documented in this [facility] Work Phone: Hospital Discharge instructions Additional Instructions -Take levofloxacin as prescribed daily for 7 more days. Hold Aricept while taking this antibiotics. -Follow up with urology as outpatient -Follow up with cardiology as outpatient -Follow up with PCP after discharge DISCHARGE INSTRUCTIONS FOR CARDIAC CAR AND YARD SUPERVISOR PHONE NUMBER OF YOUR PHYSICIAN: [phone] PROCEDURE: Heart Cath The following instructions have [...] cold, numb, blue or white, call the respiratory therapy director immediately. 4. ACTIVITY: You are advised to [...] bottle, follow the instructions on the bottle. [facility] is not responsible for incorrect prescription information provided by the patient during their visit. Do not stop your medications without consulting your health care provider. Please take the list with you to your next doctor's appointment.[facility] Work Phone: Hospital Discharge instructions No data available for this section [facility] Progress note No data available for this section [facility] Author Narcisa Mckee [facility] December 04, 2023 7:48am Note Date/Time December 04, 2023 7:48 am [facility] [address] [place] [address] Wound Center Provider Note Signed Patient: Marilu Dan MR#: [id number] : 1950 Acct:[id number] Age/Sex: 73 / M Copies to: MD Narcisa Gibson, SKIDDER DRIVER~ HPI Date of Visit Date of Visit: Date of Service: 12/04/2023 Time of Service: 07:46 Narrative HPI: 10/30/23 Marilu is a 73 year old male presenting to [facility] wound [facility] for an initial visit for eval and treatment of scrotal/sacral/buttock area ulcers and fungal rash. He was referred by urology. His and daughter are present today. He has hhc through [facility] and this should continue. I did start a cleanse with theraworx protect as well as vashe and also nystatin powder and honey sheet. I wanted to order oral diflucan but this interacted with too many of his current medications. His healing will depend on his diet and lifestyle and control of his diabetes- he says his sugars run in the 200s currently and heand his family are unsure of any a1c values. I am concerned that with sugars in the 200s healing will be severely delayed. We spoke about diet and lifestyle andhis paperwork did address these topics. Pressure relied of course will be neededto assist the healing process. Marilu can return in about 10 days so we can see how things are going. I see no need for any surgical consult at this time but ifthe left buttock area reveals something deeper then we certainly can look into this. I see no acute infection other than the fungal rash and this will be treated with the theraworx protect as well as the nystatin. 11/08/23 much improved today, same orders for now, will return in about 3 weeks, no signs of infection, fungal rash has more or less resolved, and daughter present today 12/04/23 healed today, can use antifungal powder as needed if he develops yeast again and this can be used for a 2 week period, family present for the visit, noreturn appt needed today, no infection signs noted Subjective Pain Left Buttock: Pain Intensity: 0 Wound/Ulcer History When did wound start?: October 2023 Left buttock ulcer Mode of Arrival/ Baggage Handler: Family Assistive Device Used Today: Cane Lives with:: Spouse Appetite Description: Within Normal Limits Who helps w/ dressing change?: Family and Home Health Why Do You Need Help?: Can't Reach Ulcer, Unsafe leave home by self and Taxing effort to leave home Smoking Status: Former smoker [facility] Medical History Vein disorder Decubitus ulcer of left buttock Displaced fracture of tibia Diabetic polyneuropathy Dementia Acute embolism and thrombosis of deep vein of both upper extremities (06/17/18) Type 2 diabetes mellitus with hyperglycemia Hypertension Hyperlipemia Heart attack Essential (primary) hypertension Chronic obstructive pulmonary disease, unspecified (03/03/15) BPH (benign prostatic hyperplasia) Diabetes mellitus, type 2 Hyperlipidemia Coronary artery disease Surgical History History of cardiac cath History of heart surgery History of heart bypass surgery Family History Father Heart disease Mother Diabetes Heart disease Social History Smoking Status: Former smoker Tobacco Type: cigarettes Substance Use Type: None Grafts History of Graft History of Graft?: No Exam Physical Exam Vital Signs: Temp Pulse Resp BP O2 Del Method 97.7 F 64 18 110/62 Room Air 12/04/23 07:42 12/04/23 07:42 12/04/23 07:42 12/04/23 07:42 12/04/23 07:42 Const General: cooperative, comfortable and frail appearing Nutritional Appearance: average body habitus Orientation: alert, awake and oriented x3 Lower/Upper Extremity Exam Vascular Exam-Edema Scrotal: Edema Type: Non-Pitting Vascular Exam-Pulses Left Radial: Pulse Assessment Method: Palpation Objective Meds/Allergies Home Medications isosorbide mononitrate 30 mg tablet,extended release 24 hr 30 mg PO DAILY 03/17/22 [History Confirmed 11/26/23] metoprolol tartrate 50 mg tablet 25 mg PO BID 03/17/22 [History Confirmed 11/26/23] rivaroxaban 20 mg tablet (Xarelto) 20 mg PO DAILY 03/17/22 [History Confirmed 11/26/23] simvastatin 40 mg tablet 40 mg PO DAILY 03/17/22 [History Confirmed 11/26/23] tamsulosin 0.4 mg capsule 0.4 mg PO BID 03/17/22 [History Confirmed 11/26/23] dutasteride 0.5 mg capsule (Avodart) 0.5 mg PO DAILY 10/30/23 [History Confirmed 11/26/23] nystatin 100,000 unit/gram topical powder 1 applic topical BID 4 weeks #15 grams10/30/23 [Rx Confirmed 11/26/23] spironolactone 25 mg tablet (Aldactone) 25 mg PO DAILY 10/30/23 [History Confirmed 11/26/23] lisinopril 5 mg tablet 5 mg PO DAILY 11/26/23 [History Confirmed 12/04/23] metformin 500 mg tablet,extended release 24 hr 1,000 mg (2 x 500 mg) PO BID 90 days #360 tabs 11/26/23 [Rx Confirmed 12/04/23] pantoprazole 40 mg tablet,delayed release 40 mg PO DAILY #90 tabs 11/26/23 [Rx Confirmed 12/04/23] sitagliptin phosphate 100 mg tablet (Januvia) 100 mg PO DAILY #90 tabs 11/26/23 [Rx Confirmed 12/04/23] Allergies erythromycin base Allergy (Unknown, Verified 11/26/23 10:01) Vomiting Penicillins Allergy (Unknown, Verified 11/26/23 10:01) Swelling sulfamethoxazole [Bactrim] Allergy (Unknown, Verified 11/26/23 10:01) Hives trimethoprim [Bactrim] Allergy (Unknown, Verified 11/26/23 10:01) Hives Sulfa (Sulfonamide Antibiotics) Allergy (Verified 11/26/23 10:01) Unknown Reaction ANTIBIOTICS Allergy (Unknown, Uncoded 10/10/23 08:27) Hives Wound/Ulcer Left Buttock: Type: Pressure/Injury Ulcer (with fungal rash) Pressure Ulcer/Injury Staging: Stage 3 Bed Appearance: Epithelial Tissue or Bridge Percent of Wound Bed Granulated/Red: 0 Percent of Devitalized: 0 Length (cm): 0 Width (cm): 0 Depth (cm): 0 CM Sq: 0.000 Surrounding Tissue Appearance: Ethnic/Norm Surrounding Tissue Temp: Warm Drainage Amount: None Drainage Odor: No Odor Results Height: 5 ft 6 in Weight: 2.438 kg Body Mass Index: 0.8 Assessment/Plan Assessment/Plan (1) Decubitus ulcer of left buttock: Qualifiers: Pressure injury stage: stage 3 Qualified Code(s): L89.323 - Pressure ulcer of left buttock, stage 3 Code(s): L89.329 - Pressure ulcer of left buttock, unspecified stage Plan: healed 12/04/23 (2) Candidiasis: Code(s): B37.9 - Candidiasis, unspecified Plan: much improved resolved 12/04/23 (3) Diabetes mellitus, type 2: Qualifiers: Diabetes mellitus fpc insulin use: without intermediate manager use Diabetes mellitus complication status: with circulatory complication Code(s): E11.9 - Type 2 diabetes mellitus without complications (4) Use of cane as ambulatory aid: Code(s): Z99.89 - Dependence on other enabling machines and devices (5) Wound pain: Plan: resolved 12/04/23 (6) Inflammation: Plan see orders and hpi Time spent with patient Time Spent With Patient (min): 8 Dictated By: Narcisa Mckee APRN DD/ Signed By: <Electronically signed by JOSE ENRIQUE Mckee> 12/04/23 0748 [facility] Work Phone: Reason for visit Narrative* Auth/Cert Specialty Diagnoses / Procedures Referred By Contac t Referred To Contact Diagnoses Combined forms of age-related cataract COMBINED FORMS OF AGE RELATED CATARACT 2+NS, 2+PSC, 2+CS Procedures DC XCAPSL CTRC RMVL INSJ IO LENS PROSTH W/O ECP EYE CATARACT EMULSIFICATION IOL IMPLANT Roberta Vazquez Y, DO [address] [place] [address] [employer] [address] [place] [address] Referral ID Status Reason Start Date Expiration Date Visits Re quested Visits Authorized [id number] 1 1 [place] Phone: Summary Purpose Family History No Family History Records Found Relationship Condition Age at Onset Recorded Date/T jonelle father Heart disease Unknown Not Specified Diabetes mellitus Unknown Heart disease Unknown Relationship Condition Age at Onset Recorded Date/T jonelle father Heart disease Unknown mother Diabetes mellitus Unknown Heart disease Unknown Advance Directives No Advanced Directives Records FoundDocuments on File Type Date Recorded Patient Sheet Rock Nailer Expl anation ACP-Advance Directive ACP-Power of Certified Mortician Documents on File Type Date Recorded Patient Sheet [place] Nailer Expl anation Advance Directives and Living Will Power of Certified Mortician Documents on File Type Date Recorded Patient Sheet [place] Nailer Expl anation ACP-Advance Directive ACP-Power of Certified Mortician Latest Code Status on File Code Status Date Activated Date Inactivated Comments Full Code 09/19/2021 11:42 AM Latest Code Status on File Code Status Date Activated Date Inactivated Comments Full Code 09/19/2021 11:42 AM 09/19/2021 3:59 PM Advance Directive Response Recorded Date/ Time Advance Directives No October 22 12:48pm Advance Directive Response Recorded Date/ Time Advance Directives No October 22 1:48pm Hospital Course Note MR#: [id number] [facility] Pt. Name: Marilu Dan Admitted: 11/04/2019 Discharged: [...] symptoms of angina, shortness of breath with gvtt-eo-uzrzzzvk exertion. He is currently NYHA class 3. The patient was evaluated by our multi-discipli (more content not included)... Note MR#: [id number] [facility] Pt. Name: Marilu Dan Admitted: 02/12/2020 Discharged: [...] man who presented as a transfer from [facility] after injuring his leg during [...] myocardial infarction) Sepsis Chief Complaint m79.604 m25.551 Chief Complaint Amb Documentation Hosp f/u ([facility])//needs wounds checked Chief Complaint Amb Documentation Hosp f/u ([facility])//needs wounds checked Open Wound - cart room wellness Reason for Visit Coronary artery dise ase Diabetes mellitus, type 2 Hypotension Sepsis Candidiasis Decubitus ulcer of left buttock Diabetes mellitus, type 2 Inflammation Use of cane as ambulatory aid Wound pain Chief Complaint Amb Documentation Hosp f/u ([facility])//needs wounds checked wellness Open Wound - cart room Reason for Visit Coronary artery dise ase Diabetes mellitus, type 2 Hypotension Sepsis Candidiasis Decubitus ulcer of left buttock Diabetes mellitus, type 2 Inflammation Use of cane as ambulatory aid Wound pain Reason for Referral Reason [facility] office - ne eds diabetic foot exam, shoes and nail care. Diagnosis 1 Skin ulcer of toe of right foot, limited to breakdown of skin (L97.511) Referral Organization [facility] Referring Provider First Name Mary Beth Referring Provider Last Name Hong Referring Provider Specialty Family [facility] cine Referred Organization [facility] Referred Provider KAMILA WILSON Referred Address ,[place], [place],[address] Referred Provider Specialty Podiatry - S urgical [...] section and content) DATE CREATED AUTHOR 07/02/2020 [facility] DATE CREATED AUTHOR AUTHOR'S ORGANIZ ATION 12/17/[address] [facility] DATE CREATED AUTHOR AUTHOR'S ORGANIZ ATION 03/24/2022 [facility] DATE CREATED AUTHOR AUTHOR'S ORGANIZ ATION 05/05/2022 [facility] DATE CREATED AUTHOR AUTHOR'S ORGANIZ ATION 05/05/2022 [facility] DATE CREATED AUTHOR AUTHOR'S ORGANIZ ATION 07/14/2023 [facility] DATE CREATED AUTHOR AUTHOR'S ORGANIZ ATION 12/06/2023 [facility] DATE CREATED AUTHOR AUTHOR'S ORGANIZ ATION 02/18/2024 [facility] DATE CREATED AUTHOR AUTHOR'S ORGANIZ ATION 03/26/2024 [facility] DATE CREATED AUTHOR AUTHOR'S ORGANIZ ATION 03/29/2024 [facility] DATE CREATED AUTHOR AUTHOR'S ORGANIZ ATION 06/10/2024 [facility] DATE CREATED AUTHOR AUTHOR'S ORGANIZ ATION 06/14/2024 [facility] DATE CREATED AUTHOR AUTHOR'S ORGANIZ ATION 06/23/2024 [facility] Scheduled Active and Recently Administ ered Medications [...] 30 minutes prior to surgery until dilated, h - enter number of doses based on [...] (NoRateChange - Provider: Bishop Perez APRN - DRYING OVEN ATTENDANT) lactated ringers infusion IntraVENous, at 100 mL/hr, [...] Care Teams (unrecognized sec tion and content) Team Status: Active Member Role Status Dates Mary Beth Pitts MD Primary Care Provider Active Team Status: Active Member Role Status Dates Mary Beth Pitts MD Primary Care Provide r, Attending Provider Active Start: August 18, 2023 Team Status: Active Member Role Status Dates Mary Beth Pitts MD Primary Care Provide r, Attending Provider Active Start: September 03, 2023 Team Status: Active Member Role Status Dates Mary Beth Pitts MD Primary Care Provider Active Start: September 13, 2023 Marlene Emmanuel LPN Attending Provider Active S tart: September 13, 2023 Team Status: Active Member Role Status Dates Mary Beth Pitts MD Primary Care Provider Active Start: October 04, 2023 Allen Grey DO Attending Provider Active S tart: October 04, 2023 Team Status: Active Member Role Status Dates Mary Beth Pitts MD Primary Care Provide r, Attending Provider Active Start: October 05, 2023 Team Status: Inactive Member Role Status Dates Mary Beth Pitts MD Primary Care Provide r, Attending Provider Active Start: October 18, 2023 End: October 18, 2023 Utility Repairer Relationship Specialty Start Date End Date Mary Beth Pitts MD PCP - General 03/03/16 Utility Repairer Relationship Specialty Start Date End Date Mary Beth Pitts MD PCP - General 03/03/16 Team Status: Inactive Member Role Status Dates Mary Beth Pitts MD Primary Care Provider Active Madeline Barry MD Admit Provider Active Neno Moreira MD Attending Provider Active Saima Stahl RN Other Provider Active Marlon Shetty DO Other Provider Active Christel Paul MD Other Provider Active Jc Sorto MD Other Provider Active Roman Sweeney MD Other Provider Active Jamari Moraes MD Other Provider Active Luh Morrell APRN Other Provider Active Page Miller MD Other Provider Active Luis Key MD Other Provider Active Eduardo Nguyen MD Other Provider Active Linh Quintanilla , [facility]- Other Provider Active Debi Goins MD Other Provider Active Cristo Rivera MD Other Provider Active Kendal Moy MD Other Provider Active Trino Carlton MD Other Provider Active Mary Jane Morrell Jr, MD Other Provider Active Karla Aranda MD Other Provider Active Seth Segundo MD Other Provider Active Team Status: Inactive Member Role Status Dates Mary Beth Pitts MD Primary Care Provider, Attending Arelis arciniega Active Blas Ospina MD Other Provider Active Team Status: Active Member Role Status Dates Mary Beth Pitts MD Primary Care Provider Active Start: October 26, 2023 Cristo Rivera MD Attending Provider Active St art: October 26, 2023 Team Status: Active Member Role Status Dates Mary Beth Pitts MD Primary Care Provider Active Start: November 08, 2023 Narcisa Mckee APRN Attending Provider Active St art: November 08, 2023 Team Status: Active Member Role Status Dates Mary Beth Pitts MD Primary Care Provider Active Start: November 23, 2023 Blas Ospina MD Attending Provider Active Start: November 23, 2023 Team Status: Inactive Member Role Status Dates Mary Beth Pitts MD Primary Care Provide r, Attending Provider Active Start: November 26, 2023 End: November 26, 2023 Team Status: Inactive Member Role Status Dates Mary Beth Pitts MD Primary Care Provider Active Start: December 04, 2023 End: December 04, 2023 Narcisa Mckee APRN Attending Provider Active St art: December 04, 2023 End: December 04, 2023 Goals (unrecognized section and content) Goals may [...] BE BASED ON THE PRIMARY CLINICAL RECORDS. [facility] [facility]. provides no warranty or guarantee of the accuracy or completeness of information in this document.
== END 2024-06-25 10:18 | disposition home or self-care (01) ==
PROVIDERS: PCP Family Medicine; Visit Provider Nurse Practitioner Family
DX: J10.1 Influenza due to other identified influenza virus with other respiratory manifestations (principal); R50.9 Fever, unspecified
CPT/HCPCS: 71046

== ENCOUNTER 2024-07-04 08:09 | Outpatient (OUT) | payer MEDICARE, SELFPAY ==
[2024-07-04 08:34] LABS: Basophils Percent Auto 0.1 % (0.2-2.0); Eosinophils Absolute Auto 0.1 10^3/uL (0.0-0.7); Eosinophils Percent Auto 0.6 % (0.9-7.0); Hematocrit 41.1 % (42.0-54.0); Hemoglobin 13.4 g/dL (14.0-18.0); Immature Granulocytes Abs Auto 0.08 10^3/uL (0.00-0.03); Immature Granulocytes Pct Auto 0.7 % (0.0-0.5); Mean Corpuscular HGB Conc 32.6 g/dL (29.9-35.2); Mean Corpuscular Hemoglobin 28.6 pg (25.9-34.0); Mean Corpuscular Volume 87.6 fL (80.0-94.0); Mean Platelet Volume 8.9 fL (9.5-13.5); Monocytes Absolute Auto 0.9 10^3/uL (0.3-0.8); Monocytes Percent Auto 8.4 % (1.7-12.0); Neutrophils Absolute Auto 7.8 10^3/uL (1.4-6.5); Neutrophils Percent Auto 72.2 % (43.0-75.0); Platelet Count 304 10^3/uL (150-450); Red Blood Count 4.69 10^6/uL (4.70-6.10); White Blood Count 10.9 10^3/uL (4.0-11.0)
[2024-07-04 08:53] LABS: Alanine Aminotransferase 16 U/L (16-63); Albumin Globulin Ratio 0.8; Alkaline Phosphatase 65 U/L (46-116); Anion Gap 9.8; Aspartate Amino Transferase 11 U/L (15-37); Bilirubin Total 0.6 mg/dL (0.2-1.0); Calcium 9.5 mg/dL (8.5-10.1); Carbon Dioxide 30.7 mmol/L (21.0-32.0); Chloride 98 mmol/L (98-107); Chol HDL Ratio 1.8; Cholesterol 76 mg/dL (<=200); Estimated GFR (African America >60 (>=60 mL/min/1.73m^2); Estimated GFR (Non-African Ame >60 (>=60 mL/min/1.73m^2); Glucose 216 mg/dL (74-106); HDL Cholesterol 43 mg/dL (40-60); LDL Cholesterol Calculated 17.6 mg/dL; Potassium 4.5 mmol/L (3.5-5.1); Sodium 134 mmol/L (136-145); Triglycerides 77 mg/dL (<=150); VLDL CHOLESTEROL 15.4 mg/dL
== END 2024-07-04 08:10 | disposition home or self-care (01) ==
PROVIDERS: PCP Family Medicine; Visit Provider Internal Medicine Interventional Cardiology
DX: I25.118 Atherosclerotic heart disease of native coronary artery with other forms of angina pectoris (principal); Z95.2 Presence of prosthetic heart valve
CPT/HCPCS: 36415; 80053; 80061; 85025

== ENCOUNTER 2024-07-05 20:52 | Observation (INO) | payer MEDICARE, MEDICAID, SELFPAY ==
[2024-07-05] VITALS (8 sets, daily range): BP systolic 110–166; BP diastolic 68–84; PULSE 78–88; O2SAT 92–94; BMI 28.0
--- OUTSIDE RECORDS SUMMARY | 2024-07-05 21:02 | XMS_ITS | CCD ---
Author Organization [facility] CliniSyvt Care Team Providers Care Wine Pasteurizer Name Role Phone ANA AYALA Admitting Unavailable SELF, REFERRED Referring Unavailable EBHEIMBRADLYIL Surgeon Unavailable IA Procedure Practitioner Unavailab le PITTS, MARY BETH Primary Care Unavailable MICHAEL BIGGS Attending Unavailable SWETHA WINTER Attending Unavailable SWETHA WINTER Admitting Unavailable HONG, MARY BETH Primary Care Unavailable HONG, MARY BETH Referring Unavailable HONG, MARY BETH Primary Care Unavailable HONG, MARY BETH Referring Unavailable KENDAL TORRES Attending Unavailable KENDAL TORRES Admitting Unavailable MASROOR, SANTANA Surgeon Unavailable MASROOR, SANTANA Admitting Unavailable IA Procedure Practitioner Unavailab le PITTS, MARY BETH Referring Unavailable REYNALDO COX Attending Unavailable HONG, MARY BETH Primary Care Unavailable REYNALDO COX Surgeon Unavailable IA Procedure Practitioner Unavailab le UNKNOWN, PROVIDER Surgeon Unavailable IA Procedure Practitioner Unavailab le Pitts , Mary Beth Primary Care Provider [phone] Hong DIAZ, Mary Beth Primary Care Provider [phone] Mary Beth Pitts MD Primary Care Provider [phone] Hong DIAZ, Mary Beth Primary Care Provider [phone] MARY BETH PITTS Primary Care Unavailable MARY BETH PITTS Referring Unavailable BLAS OSPINA Referring Unavailable HONG, MARY BETH Primary Care Unavailable HONG, MARY BETH Primary Care Unavailable ROBERTA VAZQUEZ Admitting Unavailable ROBERTA VAZQUEZ Attending Unavailable MARY BETH PITTS Primary Care Physician [phone] Diogenes, Dr. Jc Case Attending Skinny Pitts, [...] Provider MD Eduardo Nguyen Other Provider [facility] Linh Liriano Other Provider MD Debi Goins Other Provider [phone] MD Cristo Rivera Other Provider MD Kendal Moy Other Provider [phone] MD Trino Carlton Other Provider MD [...] Frances Consulting Unavailable MD Mary Beth Pitts [facility] Skinny Villagomez MD, Gerald Pérez Attending Unavailable MD Mary Beth Pitts [facility] Unava gilbert Villagomez MD, Gerald Pérez Attending Unavailable MD Mary Beth Pitts Consulting Jocelynva MD Mary Beth Hess [facility] Unava ilcandace Villagomez MD, Gerald Chi Attending Unavailable Hernando DIAZ, Gerald Beto Attending Unavailable MD Mary Beth Pitts [facility] MD Mary Beth Hussein Consulting Skinny Villagomez MD, Gerald Pérez Attending Unavailable MD Mary Beth Pitts [facility] Jocelynva MD Mary Beth Hess Consulting MD Mary Beth Hussein [facility] Unava gilbert Villagomez MD, Gerald Pérez Attending Unavailable Hernando DIAZ, Gerald Pérez Attending Unavailable MD Mary Beth Pitts Primary Care Provider [phone] MD Mar yBeth Pitts Attending Provider MD Blas Ospina V Other Provider Mary Beth Pitts Unavailable Mahendra Escalante Unavailable [phone] KAMILA WILSON Attending Unavailable MD Mary Beth Pitts Primary Care Provider [phone] JOSE ENRIQUE Mckee Attending Provider [phone] MD Mary Beth Pitts Primary Care Provider [phone] JOSE ENRIQUE Mckee Attending Provider Mary Beth Pitts Primary Care Unavailable Narcisa Mckee Attending Unavailable Narcisa Mckee Admitting Unavailable RIVERA, Cristo R Attending Unavailable [...] Admitting Unavailable RIVERA, Cristo R Attending Unavailable DEBRA HONEYCUTT Referring Unavailable ASSALY, RAGHEB Admitting Unavailable AMIRA CARREON Attending Unavailable MARSHALL LUONG Attending Unavailable SAFI, ALVINO Referring Unavailable ASSALY, RAGHEB Referring Unavailable ASSALY, RAGHEB Referring Unavailable LAURI, AMIRA Referring Unavailable MOUKARBEL, BLAS Attending Unavailable CHERISE, MARSHALL Referring Unavailable LUONG, MARSHALL Attending Unavailable MOUKARBEL, BLAS Attending Unavailable LUONG, MARSHALL Attending Unavailable LUONG, MARSHALL Attending Unavailable MOUKARBEL, BLAS Attending Unavailable STEPHIE, HINA Attending Unavailable LUONG, MARSHALL Referring Unavailable ASSALY, RAGHEB Referring Unavailable ASSALY, RAGHEB Referring Unavailable ASSALY, RAGHEB Referring Unavailable ASSALY, RAGHEB Referring Unavailable LUONG, MARSHALL Referring Unavailable MOUKARBEL, BLAS Attending Unavailable ASSALY, RAGHEB Referring Unavailable LAURI, AMIRA Referring Unavailable SAFI, ALVINO Referring Unavailable ASSALY, RAGHEB Referring Unavailable NAZZAL, MUNIER Admitting Unavailable NAZZAL, MUNIER Attending Unavailable MOUKARBEL, BLAS Admitting Unavailable MOUKARBEL, BLAS Attending Unavailable Allergies Allergy Classification Reported Allergen(s) Allergy Type Date of Onset Reaction(s) Facility Dihydrofolate Reductase Inhibitors (antibiotic) (1 source) Trimethoprim Drug Allergy 10-18-19 24 [facility] Doxycycline (1 source) Doxycycline; Translations: [doxycycline] Drug Allergy Blisters beneath skin (disorder) [facility] Comment on above: Blisters on hands Penicillins (antibiotic) (3 sources) Penicillins; Translations: [penicillin] Drug Allergy 10-30-19 15 Shortness Of Breath, Swelling, Anaphylaxis (disorder), Tightness in throat (finding) [facility] Sulfonamides (antibiotic) (3 sources) Sulfamethoxazole; Translations: [sulfa drugs] Drug Allergy 10-18-19 24 Vomitus (substance) [facility] (9 sources) Erythromycin; Translations: [ERYTHROMYCIN BASE] Drug Allergy 11-12-19 14 Vomiting [facility] (10 sources) Penicillins; Translations: [PENICILLINS] Drug allergy (disorder) 12-03-19 14 Shortness Of Breath, Swelling [facility] Comment on above: Onset Date: 03/03/20 15 (1 source) Sulfamethoxazole / Trimethoprim Drug Allergy 09-14-19 15 [facility] (1 source) Penicillins Propensity to adverse reactions to drug 10-30-19 15 Shortness Of Breath [facility] (13 sources) Erythromycin; Translations: [ERYTHROMYCIN] Drug Allergy 09-07-19 22 Unknown [facility] (20 sources) Penicillin; Translations: [penicillin] Drug Allergy Tightness in throat (finding), hives, Anaphylaxis (disorder) [facility] (19 sources) Sulfonamides (Antibiotic); Translations: [sulfa drugs] Drug allergy Vomitus (substance) [facility] (5 sources) Sulfonamides (Antibiotic) Allergy to substance 03-17-20 Unknown Reaction [facility] (1 source) Sulfonamides (Antibiotic) Drug allergy (disorder) 11-19-19 14 [facility] (1 source) MOST ANTIBIOTICS; Translations: [MOST ANTIBIOTICS] Propensity to adverse reactions to drug (disorder) [facility] (8 sources) Sulfamethoxazole / Trimethoprim Drug Allergy Unknown [facility] Other (2 sources) Substance with penicillin structure and antibacterial mechanism of action (substance) Drug allergy 03-03-20 15 Unknown [employer] Other (6 sources) ANTIBIOTICS Propensity to adverse reactions 03-03-20 15 Unknown, [facility] Comment on above: Onset Date: 03/03/20 15 (2 sources) Allergies Reconciled Propensity to adverse reactions Unknown [employer] Other (2 sources) patient allergy list reviewed by nurse or physicia Propensity to adverse reactions 03-03-20 15 Comment:Done [employer] Other (13 sources) Doxycycline; Translations: [doxycycline] Drug Allergy 09-03-19 24 Blisters beneath skin (disorder) [facility] Comment on above: Blisters on hands (3 sources) Sulfamethoxazole Drug Allergy 11-26-19 24 [facility] (3 sources) Trimethoprim Drug Allergy 11-26-19 24 [facility] (1 source) levoFLOXacin; Translations: [LEVOFLOXACIN] Drug Allergy 04-14-20 [facility] (1 source) Sulfamethoxazole / Trimethoprim; Translations: [SULFAMETHOXAZOLE-T RIMETHOPRIM] Drug Allergy 04-14-20 [facility] Medications Current Medications Medication Drug Class(es) Dates Sig (Normalized) Sig (Original) Accu-Chek Guide - (3 sources) Start: 11-22-2022 Accu-Chek Guide - 1 strip to check BS once daily for 30 days Nov, Active Accu-Chek Guide Me w/Device (3 sources) Accu-Chek Guide Me w/Device 1 meter to check BS once daily for 365 days Active Albuterol Sulfate 90 mcg/actuation HFA aerosol inhaler (1 source) Start: 06-25-2024 take 1 puff(s) by inhalation every four to six hours as needed for wheezing Albuterol Sulfate 90 mcg/actuation HFA aerosol inhaler Active 2 PUFF INHALATION EVERY 4-6 HOURS as needed for shortness of breath or wheezing 6.7 June 25, 2024 12:00am amLODIPine 10 mg oral tablet (20 sources) Dihydropyridine Calcium Channel Rick Start: 06-05-2022 amLODIPine 10 mg Tab Refills(s) 0 Start Date: 06/05/22 Status: Ordered aspirin 81 mg oral tablet (11 sources) Platelet Aggregation Inhibitor, Nonsteroidal Anti-inflammatory Drug End: 09-06-2021 take 1 tablet by mouth once daily take 1 tablet by mouth every twe nty-four hours benzonatate 200 mg oral capsule (1 source) Non-narcotic Antitussive Start: 06-25-2024 take 1 capsule by mouth three times daily as needed for cough Benzonatate 200 mg capsule Active 200 MG PO Three times daily as needed for cough 12 03June 25, 2024 12:00am calcium chloride 0.0014 meq/ml / potassium chloride 0.004 meq/ml / sodium chloride 0.103 meq/ml / sodium lactate 0.028 meq/ml injectable solution (1 source) Start: 09-19-2021 lactated ringers infusion ciprofloxacin 500 mg oral tablet (9 sources) Quinolone Antimicrobial Start: 12-21-2023 End: 01-20-2024 take 1 tablet by mouth twice daily Cipro 500 mg Tab 500 mg = 1 tab(s), Oral, BID, X 30 day(s), # 60 tab(s), Refills(s) 0, Pharmacy: [id number], 166, cm, 12/21/23 8:06:00 EDT, Height/Length Dosing, 78.3, kg, 12/21/23 8:06:00 EDT, Weight Dosing Start Date: 12/21/23 Stop Date: 01/20/24 Status: Ordered Start: 11-19-2023 End: 12-19-2023 take 1 tablet by mouth every twelve hours Cipro 500 mg Tab 500 mg = 1 tab(s), Oral, q12hr, X 30 day(s), # 60 tab(s), Refills(s) 0, Pharmacy: [id number], 166, cm, 11/19/23 8:51:00 EDT, Height/Length Dosing, 82, kg, 11/19/23 8:51:00 EDT, Weight Dosing Start Date: 11/19/23 Stop Date: 12/19/23 Status: Ordered Start: 10-18-2023 End: 10-30-2023 take 1 tablet by mouth twice daily Ciprofloxacin Hcl 500 mg tablet Discontinued 500 MG PO Twice daily October 17, 2023 11:00pm October 30, 2023 6:20am Start: 06-05-2022 take 1 tablet by vasiliy th once daily Cipro 500 mg Tab 500 mg = 1 tab(s), Oral, Daily, Take 1 tablet the day before the procedure and 1 tablet after the procedure, # 2 tab(s), Refills(s) 0, Pharmacy: [id number], 168, cm, 06/05/22 9:33:00 EST, Height/Length Dosing, 73, kg, 06/05/22 9:33:00 E... Start Date: 06/05/22 Status: Ordered doxycycline hyclate 100 mg oral capsule (15 sources) Tetracycline-class Drug Start: 11-27-2022 End: 12-27-2022 [...] Start: 08-28-2022 take 1 capsule by mo [facility] every twenty-four hours Doxycycline Monohydrate 100 MG 1 capsule Orally Once a day for 10 days Aug, Active Start: 03-17-2022 End: 03-19-2022 Doxycycline Hyclate 100 mg c apsule Discontinued MG March 16, 2022 11:00pm March 19, 2022 12:21pm Start: 03-17-2022 End: 03-19-2022 Doxycycline Hyclate Disconti nued MG March 17, 2022 12:00am March 19, 2022 1:21pm Start: 02-27-2022 End: 03-13-2022 take 1 mg by mouth twice daily doxycycline hyclate 100 mg Cap mg cap(s), Oral, BID, Refills(s) 0 Start Date: 02/27/22 Status: Ordered dutasteride 0.5 mg oral capsule (14 sources) 5-alpha Reductase Inhibitor Start: 11-27-2022 End: 06-19-2024 take 1 capsule by mouth once daily Dutasteride (Avodart) 0.5 mg capsule Active 0.5 MG PO Daily October 29, 2023 11:00pm 24 hr isosorbide mononitrate 30 mg extended release oral tablet (20 sources) Nitrate Vasodilator Start: 02-27-2022 take 1 tablet by mouth once daily, then take 1 tablet by mouth every twenty-four hours Isosorbide Mononitrate 30 mg tablet extended release 24 hr Active 30 MG PO Daily March 16, 2022 11:00pm take 1 tablet by vasiliy every twenty-four hours Isosorbide Mononitrate ER 60 MG 1 tablet in the morning Orally Once a day Active levoFLOXacin 500 mg oral tablet (9 sources) Quinolone Antimicrobial Start: 06-09-2024 End: 06-19-2024 take 1 tablet by mouth every twenty-four hours Levaquin 500 mg Tab 500 mg = 1 tab(s), Oral, q24hr, X 10 day(s), # 10 tab(s), Refills(s) 0, Pharmacy: [id number], 166, cm, 06/09/24 10:17:00 EST, Height/Length [...] Status: Ordered Start: 03-19-2022 End: 10-30-2023 take 1 tablet by mouth once daily Levofloxacin 750 mg tablet Discontinued 750 MG PO Daily 7 March 18, 2022 11:00pm October 30, 2023 6:21am lisinopril 5 mg oral tablet (20 sources) Angiotensin Converting Enzyme Inhibitor Start: 11-26-2023 End: 04-14-2024 take 1 tablet by mouth once daily Lisinopril 5 mg tablet Active 5 MG PO Daily April 14, 2024 12:40pm Start: 11-26-2023 take 5 mg by mouth twice daily Lisinopril Active 5 MG PO Twice daily November 26, 2023 12:00am Start: 03-17-2022 End: 11-26-2023 Lisinopril 20 mg tablet Disc ontinued 15 MG PO Daily March 16, 2022 11:00pm November 26, 2023 9:04am Start: 03-17-2022 End: 11-26-2023 take 15 mg by mouth once daily Lisinopril Discontinued 15 MG PO Daily March 17, 2022 12:00am November 26, 2023 10:04am Start: 02-27-2022 lisinopril 20 mg Tab Refills(s) 0 Start Date: 02/27/22 Status: Ordered take 0.5 tablet by m [facility] once daily Lisinopril 40 MG 1/2 tablet Orally Once a day Active take 1 tablet by vasiliy every twenty-four hours take 1 tablet by avsiliy once daily lisinopril (PRINIVIL;ZESTRIL) 2.5 MG tablet Take 2.5 mg by mouth daily 0 Active 24 hr metFORMIN hydrochlorid e 500 mg extended release oral tablet (20 sources) Biguanide Start: 03-17-2022 End: 01-10-2024 Metformin 500 mg tablet extended release 24 hr Active 1000 MG PO Twice daily 360 90 January 10, 2024 10:25am Start: 03-17-2022 End: 11-26-2023 take 1000 mg by mouth twice daily Metformin Discontinued 1000 MG PO Twice daily 360 90 October 30, 2023 3:37pm November 26, 2023 10:27am Start: 02-27-2022 MetFORMIN (Eqv -Glucophage XR) 500 mg oral tablet, extended release Refills(s) 0 Start Date: 02/27/22 Status: Ordered take 2 tablets by mo [facility] twice daily metFORMIN HCl ER 500 MG TAKE 2 TABLETS BY MOUTH 2 TIMES A DAY Active take 1 tablet by vasiliy twice daily at mealtime metFORMIN (GLUCOPHAGE) 500 MG tablet Take 500 mg by mouth 2 times daily (with meals) 0 Active metoprolol tartrate 50 mg oral tablet (20 sources) beta-Adrenergic Rick Start: 03-17-2022 Metopr olol Tartrate 50 mg tablet Active 25 MG PO Twice daily March 16, 2022 11:00pm Start: 03-17-2022 take 25 mg by mouth twice pierce y Metoprolol Tartrate Active 25 MG PO Twice daily March 17, 2022 12:00am Start: 02-27-2022 Metoprolol tar trate 50 mg Tab Refills(s) 0 Start Date: 02/27/22 Status: Ordered take 1 tablet by vasiliy every twelve hours Metoprolol Tartrate 50 MG 1 tablet with food Orally Twice a day Active take 1 tablet by [facility] twice daily metoprolol (TOPROL-XL) 50 MG XL tablet Take 50 mg by mouth 2 times daily 0 Active Nitro Sublingual 0.4 0.4mg (8 sources) Nitro Sublingual 0.4 0.4mg 1 Sublingual Every 5min x3 Active nystatin 100 unt/mg topical powder (7 sources) Polyene Antifungal Start: 10-30-2023 Nystatin 10 0,000 unit/gram powder Active 1 APPLIC TOPICAL Twice daily October 29, 2023 11:00pm apply to sacral, buttock, scrotal areas as per wound orders Start: 10-18-2023 End: 10-30-2023 Nystatin 100,000 unit/mL kellie pension Discontinued [id number] UNIT PO Daily October 17, 2023 11:00pm October 30, 2023 6:22am administer 1/2 of dose in each side of the mouth pantoprazole 40 mg delayed release oral tablet (18 sources) Proton Pump Inhibitor Start: 10-18-2023 End: 01-10-[address] Tab 40 mg = 1 tab(s), Refills(s) 0 Start Date: 02/15/24 Status: Ordered phenylephrine hydrochloride 25 mg/ml ophthalmic solution (1 source) alpha-1 Adrenergic Agonist Start: 09-19-2021 phenylephrine (MYDFRIN) 2.5 % ophthalmic solution 1 drop pregabalin 75 mg oral capsule (8 sources) Start: 10-12-2022 take 1 capsule by mouth twice daily Pregabalin 75 MG TAKE 1 CAPSULE BY MOUTH TWICE DAILY FOR 30 DAYS Oct, Active Start: 09-18-2022 take 1 capsule by [facility] every twelve hours Lyrica 75 MG 1 capsule Orally Twice a day for 30 days September, Active Start: 08-24-2022 take 1 capsule by [facility] every twelve hours Lyrica 50 MG 1 capsule Orally Twice a day for 30 days Aug, Active proparacaine hydrochloride 5 mg/ml ophthalmic solution (1 source) Local Anesthetic Start: 09-19-2021 proparacaine (ALCAINE) 0.5 % ophthalmic solution 1 drop rivaroxaban 20 mg oral tablet (20 sources) Factor Xa Inhibitor Start: 02-27-2022 take 1 tablet by mouth once daily Rivaroxaban (Xarelto) 20 mg tablet Active 20 MG PO Daily March 16, 2022 11:00pm Xarelto 20 20 On ce PO Daily Active rivaroxaban (XAR ELTO) 20 MG TABS tablet Take 20 mg by mouth 0 Active simvastatin 40 mg oral tablet (20 sources) HMG-CoA Reductase Inhibitor Start: 02-27-2022 take 1 tablet by mouth once daily Simvastatin 40 mg tablet Active 40 MG PO Daily March 16, 2022 11:00pm SITagliptin 100 mg oral tablet (20 sources) Dipeptidyl Peptidase 4 Inhibitor Start: 10-18-2023 End: 10-30-2023 take 1 tablet by mouth once daily Sitagliptin 25 mg tablet Discontinued 25 MG PO Daily October 17, 2023 11:00pm October 30, 2023 6:22am Start: 05-28-2023 End: 01-10-2024 take 1 tablet by mouth once daily Sitagliptin Phosphate (Januvia) 100 mg tablet Active 100 MG PO Daily January 10, 2024 10:25am Start: 11-28-2022 Januvia 100 mg Tab Refills(s) 0 Start Date: 02/26/23 Status: Ordered 5 ml sodium chloride 9 mg/ml injection (4 sources) Start: 09-19-2021 sodium chlorid e flush 0.9 % injection 5-40 mL Start: 09-19-2021 sodium chlorid e flush 0.9 % injection 5-40 mL Start: 09-19-2021 0.9 % sodium c hloride infusion spironolactone 25 mg oral tablet (20 sources) Aldosterone Antagonist Start: 02-26-2023 take 1 tablet by mouth once daily Spironolactone (Aldactone) 25 mg tablet Active 25 MG PO Daily October 29, 2023 11:00pm take 0.5 tablet by m outh once in the morning Spironolactone 25 MG 1/2 tab Orally q am . Active tamsulosin hydrochloride 0.4 mg oral capsule (20 sources) alpha-Adrenergic Rick Start: 11-19-2023 take 2 capsules by mouth once daily Flomax 0.4 mg Cap 0.8 mg = 2 cap(s), Oral, Daily, # 60 cap(s), Refills(s) 11, Pharmacy: [id number], 166, cm, 11/19/23 8:51:00 EDT, Height/Length Dosing, 82, kg, 11/19/23 8:51:00 EDT, Weight Dosing Start Date: 11/19/23 Status: Ordered Start: 03-17-2022 take 1 capsule by mo [facility] twice daily Tamsulosin 0.4 mg capsule Active 0.4 MG PO Twice daily March 16, 2022 11:00pm Start: 03-17-2022 Tamsulosin Act haydee MG PO March 17, 2022 12:00am Start: 02-27-2022 take 1 capsule by mo [facility] once daily Flomax 0.4 mg Cap 0.4 mg = 1 cap(s), Oral, Daily, # 30 cap(s), Refills(s) 6, Pharmacy: [id number], 168, cm, 02/27/22 9:27:00 EDT, Height/Length [...] Sig (Original) clopidogrel 75 mg oral tablet (12 sources) [id number] Platelet Inhibitor Start: 03-17-2022 End: 10-30-2023 take 1 tablet by mouth once daily Clopidogrel 75 mg tablet Discontinued 75 MG PO Daily March 16, 2022 11:00pm October 30, 2023 6:21am Start: 02-27-2022 clopidogrel 75 mg Tab Refills(s) 0 Start Date: 02/27/22 Status: Ordered take 1 tablet by vasiliy once daily clopidogrel (PLAVIX) 75 MG tablet Take 75 mg by mouth daily 0 Active donepezil hydrochloride 5 mg oral tablet (14 sources) Start: 03-17-2022 End: 10-30-2023 Donepezil 5 mg tablet Discontinued MG TABLET March 16, 2022 11:00pm October 30, 2023 6:21am On Hold: Resume on 03/27/22. hold for 7 days until your finish your antibiotics Start: 03-17-2022 End: 10-30-2023 Donepezil Discontinued MG TA BLET March 17, 2022 12:00am October 30, 2023 7:21am furosemide 20 mg oral tablet (4 sources) Loop Diuretic Start: 10-18-2023 End: 10-30-2023 take 1 tablet by mouth once daily Furosemide 20 mg tablet Discontinued 20 MG PO Daily October 17, 2023 11:00pm October 30, 2023 6:21am Problems Active Problems Problem Classification Problem Date Documented Date Episodic/Chronic Acute myocardial infarction (20 sources) Myocardial infarction; Translations: [Non-ST elevation (NSTEMI) myocardial infarction] Onset: 03-17-2022 03-17-2022 Chronic Bacterial infection; unspecified site (7 sources) Bacteremia caused by Gram-negative bacteria; Translations: [Bacteremia] 03-18-2022 Episodic Biliary tract disease (1 source) Calculus of gallbladder without cholecystitis without obstruction; Translations: [CALCU GB W/O CHOLECYST W/O OBST] Onset: 03-08-2022 Episodic Chronic obstructive pulmonary disease and bronchiectasis (2 sources) Chronic obstructive lung disease; Translations: [Chronic obstructive pulmonary disease, unspecified] Onset: 03-03-2015 Chronic Chronic ulcer of skin (12 sources) Ulcer of toe; Translations: [Non-pressure chronic [...] 03-03-2015 02-27-2022 Chronic Fever of unknown origin (5 sources) Fever, unspecified; Translations: [Fever] Onset: 03-16-2022 Episodic Fracture of lower limb [...] disease of prostate, unspecified] Onset: 11-27-2022 Episodic Influenza (2 sources) Influenza due to Influenza A virus; Translations: [Influenza due to other identified influenza virus with other respiratory manifestations] 06-25-2024 Episodic Other aftercare (1 source) 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 superintendent (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) use of 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; Translations: [JAIL CURRNT USE ANTICOAGULANTS] Onset: 03-20-2022 Episodic Other aftercare (1 source) Other terminal superintendent (current) drug therapy; Translations: [OTH JAIL CURRENT DRUG THERAPY] Onset: 03-20-2022 Episodic Other aftercare (1 source) prison (current) use of oral hypoglycemic drugs; Translations: [JAIL USE ORAL HYPOGLYCEMIC DX] Onset: 03-20-2022 Episodic Other aftercare (8 sources) Long-term current use of anticoagulant; Translations: [terminal superintendent (current) use of 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] Onset: 06-05-2022 Episodic Other and ill-defined heart disease (17 sources) Heart disease 02-27-2022 Chronic Other circulatory disease (6 sources) Low blood pressure; Translations: [Hypotension, unspecified] [...] conditions due to external causes (3 sources) Wound pain ; Translations: [Other injury [...] unspecified] Onset: 09-10-2023 Chronic Residual codes; unclassified (6 sources) Dependence on other enabling machines and devices; Translations: [Use of cane as ambulatory aid] Onset: 12-04-2023 10-30-2023 Chronic Residual codes; unclassified (6 sources) Urinary catheter in situ; Translations: [Presence of other specified devices] 03-18-2022 Episodic Residual codes; unclassified (1 source) Presence of other specified devices; Translations: [Other postprocedural status] 03-19-2022 Episodic Residual codes; unclassified (1 source) Other specified postprocedural states; Translations: [Personal history of surgery to heart and great vessels, presenting hazards to health] 03-19-2022 Episodic Residual codes; unclassified (1 source) Inflammatory disorder 10-30-2023 Episodic Unclassified (1 source) CONTACT W/AND (SUSP) EXPOS COVID-19; Translations: [CONTACT W/AND (SUSP) EXPOS COVID-19] Onset: 03-20-2022 Unclassified (15 sources) Drug therapy finding 06-05-2022 Unclassified (4 sources) Inflammatory disorder; Translations: [Inflammation] 10-30-2023 Urinary tract infections (12 sources) Acute urinary tract infection; Translations: [Urinary [...] Episodic Coronary atherosclerosis and other heart disease (15 sources) H/O cardiac surgery; 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] Onset: 10-26-2023 03-17-2022 Episodic Comment on above: valve replacement Mycoses (8 sources) Candidiasis; Translations: [Candidiasis, unspecified] Onset: 10-05-2023 [...] Onset: 09-27-2023 Episodic Other aftercare (2 sources) terminal superintendent (current) use of antibiotics; Translations: [terminal superintendent (current) use of antibiotics] Onset: 09-20-2023 Episodic Other circulatory disease (2 sources) Other hypotension; Translations: [Other hypotension] Onset: 10-26-2023 Episodic Other nervous system disorders (2 sources) [...] Onset: 10-05-2023 Episodic Septicemia (except in labor) (12 sources) Sepsis; Translations: [Sepsis, unspecified organism] Onset: 03-20-2022 03-18-2022 Episodic Shock (2 sources) Severe sepsis with septic shock; Translations: [Severe sepsis with septic shock] Onset: 10-05-2023 Episodic Results Test Name Value Interpretation Reference Range Facility 36on 06-12-2024 36 Normal [facility] Urology Office/Clinic Noteon 06-09-2024 Urology Office/Clinic [...] 500mg qd x10 days. Rx sent to [facility]. 2. 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 CT AP wo con 10/09/23 [facility] - Bilateral hydroceles, L appears somewhat [...] to 16-30 Fr). [1] 6. Anticoagulated (Z79.01: prison (current) use of 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) On Xarelto. CABG x 4. AVR. Elevated risk for periop complications in the future. [2] Follow-up With When Contact Information Cristo RIVERA MD, URL [facility] [address] [place] [phone] Additional Instructions: 4 mos w/ PVR Patient Education Prostatitis I, Opal Kessler, personally scribed for Dr. Rivera on 06/09/2024 11:14:10. . Documentation recorded by the scribeOpal, accurately reflects the services(s) I performed and decisions made by me. Authenticated by Dr. Rivera on 06/09/2024 11:16:12. Problem List/Past Medical History Ongoing Anticoagulated BPH with obstruction/lower urinary tra (more content not included)... [facility] Comment on above: Result Comment: Elec tronically [...] Locations R1: This test was performed at: [facility], [address] [place] [address], [id number] , , [facility] Comment on above: Performed By: #### [id number] #### [facility] [address] [place] [address] C Urineon 02-17-2024 Bacteria identified Cx Nom (U) Microbiology PROCEDURE: Urine Culture [R1] SOURCE: U Random BODY SITE: COLLECTED DATE/TIME: 02/15/2024 12:55 EDT RECEIVED DATE/TIME: 02/15/2024 18:09 EDT START DATE/TIME: 02/15/2024 18:09 EDT FREE TEXT SOURCE: NICOLE DIAZ, Cristo RIVERA MD, Cristo Frances FINAL REPORTS [...] Locations R1: This test was performed at: [facility], [address] [place] [address], [id number]- , [place], Normal [facility] Comment on above: Performed By: #### [id number] #### [facility] [address] [place] [address] Urology Office/Clinic Noteon 02-15-2024 Urology Office/Clinic Note [...] lying in bed for 8 days. Saw [facility] wound clinic and was given antifungal powder [...] w/ Levaquin 500mg qd x3wks starting on 10/16/23. CT AP w con 10/04/23 [facility] - [...] hydrocele only. CT AP wo con 10/09/23 [facility] - Bilateral hydroceles, L appears somewhat loculated. Cystic structure R inguinal region is nonspecific. 5. ED (erectile dysfunction) (N52.9: Male erectile dysfunction, unspecified) Has nitro tablets, contraindicated with ED meds. Previously recommended CLAUDIA or ICI but (more content not included)... Normal [facility] Comment on above: Result Comment: Elec tronically Signed By: Cristo RIVERA MD\.br\Date and Time Signed: 02/15/24 09:55 EDT\.br\Electronically Co-Signed By: Breann, Carmen B\.br\Date and Time Co-Signed: 02/15/24 09:47 EDT Follow-Upon 12-24-2023 Follow-Up Normal [facility] Ambulatory Visit Summaryon 0 12-21-2023 Ambulatory Visit [...] Cristo RIVERA MD Where: [facility] [address] [place] [address] [place] [address]- You Need to Schedule the Following Appointments Follow Up with Cristo RIVERA MD, URL When: Where: [facility] [place] [place] [address]- Medications What How Much When Instructions New ciprofloxacin (Cipro 500 mg Tab) 1 Tablets By Mouth 2 times a day Duration: 30 Days Pickup at [facility] Unchanged dutasteride (dutasteride 0.5 mg Cap) [...] if questions or concerns Pharmacy Information [facility]: [address], [place] [phone] Allergies doxycycline (Blisters beneath skin) penicillin (Anaphylaxis, [...] infections ( (more content not included)... Normal [facility] Urology Office/Clinic Noteon 12-21-2023 Urology Office/Clinic Note [...] lying in bed for 8 days. Saw [facility] wound clinic and was given antifungal powder [...] hydroceles, R>>L. CT AP wo con 10/09/23 [facility] - Bilateral hydroceles, L appears somewhat [...] to 16-30 Fr). [1] 7. Anticoagulated (Z79.01: prison (current) use of 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) On Xarelto. Had aortic valve replacement. Elevated risk for periop complications in the future. [2] Follow-up With When Contact Information Cristo RIVERA MD, URL [address] [place] [address]- Additional Instructions: 2 mos w/ PVR Patient Education Orchitis Epid (more content not included)... Normal [facility] Comment on above: Result Comment: Elec tronically Signed By: Cristo RIVERA MD\.br\Date and Time Signed: 12/21/23 08:31 EDT\.br\Electronically Co-Signed By: Carmen Crain.dee\Date and Time Co-Signed: 12/21/23 08:29 EDT 37on 11-23-2023 37 Cut lisinopril to 10 mg daily ( take 2- 5mg tablets)- if b/p remains low and your lightheaded/dizzy or pass out may decrease down to 5 mg a day. Call office for any concerns Echocardiogram as scheduled Normal [facility] Basophils Auto (Bld) [#/Vol] on 11-23-2023 Basophils (Bld) [#/Vol] 0.0 10 3/uL 0.0-0.1 [facility] Basophils/100 WBC Auto (Bld) on 11-23-2023 Basophils/100 WBC (Bld) 0.1 % Low 0.2-2.0 [facility] Eosinophils/100 WBC Auto (Bl d)on 11-23-2023 Eosinophils/100 WBC (Bld) 0.8 % Low 0.9-7.0 [facility] Erythrocyte distribution wid th Auto (RBC) [Ratio]on 11-23-2023 Erythrocyte distribution width (RBC) [Ratio] 14.2 % 11.0-15.0 [facility] Estimated glomerular filtrat ion rate (GFR) non- Americanon 11-23-2023 GFR/1.73 sq M.predicted among non-blacks MDRD (S/P/Bld) [Vol rate/Area] mL/min/{1.73_m2} >=60 [facility] Globulin Calc (S) [Mass/Vol] on 11-23-2023 Globulin (S) [Mass/Vol] 4.2 g/dL [facility] Hematocrit Auto (Bld) [Volum e fraction]on 11-23-2023 Hematocrit (Bld) [Volume fraction] 34.1 % Low 42.0-54.0 [facility] Hemoglobin [Mass/volume] in Bloodon 11-23-2023 Hemoglobin (Bld) [Mass/Vol] 10.6 g/dL Low 14.0-18.0 [facility] Laboratory - Chemistry and C hemistry - challengeon 11-23-2023 Albumin [Mass/Vol] 3.1 g/dL Low 3.4-5.0 [facility] ALP [Catalytic activity/Vol] 77 U/L 46-116 [facility] ALT [Catalytic activity/Vol] 18 U/L 16-63 [facility] AST [Catalytic activity/Vol] 10 U/L Low 15-37 [facility] Bilirubin [Mass/Vol] 0.4 mg/dL 0.2-1.0 [facility] Calcium [Mass/Vol] 9.0 mg/dL 8.5-10.1 [facility] Chloride [Moles/Vol] 101 mmol/L 98-107 [facility] CO2 [Moles/Vol] 26.0 mmol/L 21.0-32.0 [facility] Creatinine [Mass/Vol] 1.07 mg/dL 0.70-1.30 [facility] GFR/1.73 sq M.predicted MDRD (S/P/Bld) [Vol rate/Area] mL/min/{1.73_m2} >=60 [facility] Glucose [Mass/Vol] 174 mg/dL High 74-106 [facility] Potassium [Moles/Vol] 4.4 mmol/L 3.5-5.1 [facility] Protein [Mass/Vol] 7.3 g/dL 6.4-8.2 [facility] Sodium [Moles/Vol] 135 mmol/L Low 136-145 [facility] Urea nitrogen [Mass/Vol] 22.0 mg/dL High 7.0-18.0 [facility] Urea nitrogen/Creatinine [Mass ratio] 20.6 mg/mg [facility] Laboratory - Hematology and Cell countson 11-23-2023 Immature granulocytes/100 WBC (Bld) 0.2 % 0.0-0.5 [facility] Leukocytes [#/volume] correc seth for nucleated erythrocytes in Blood by Automated counon 11-23-2023 WBC corrected for nucl RBC Auto (Bld) [#/Vol] 8.3 10 3/uL 4.0-11.0 [facility] Lymphocytes Auto (Bld) [#/Vo l]on 11-23-2023 Lymphocytes (Bld) [#/Vol] 2.1 10 3/uL 1.2-3.8 [facility] Lymphocytes/100 WBC Auto (Bl d)on 11-23-2023 Lymphocytes/100 WBC (Bld) 25.3 % 20.5-60.0 [facility] MCH Auto (RBC) [Entitic mass ]on 11-23-2023 MCH (RBC) [Entitic mass] 27.6 pg 25.9-34.0 [facility] MCHC Auto (RBC) [Mass/Vol]on 11-23-2023 MCHC (RBC) [Mass/Vol] 31.1 g/dL 29.9-35.2 [facility] MCV Auto (RBC) [Entitic vol] on 11-23-2023 MCV (RBC) [Entitic vol] 88.8 fL 80.0-94.0 [facility] Monocytes Auto (Bld) [#/Vol] on 11-23-2023 Monocytes (Bld) [#/Vol] 0.7 10 3/uL 0.3-0.8 [facility] Monocytes/100 WBC Auto (Bld) on 11-23-2023 Monocytes/100 WBC (Bld) 8.5 % 1.7-12.0 [facility] Neutrophils Auto (Bld) [#/Vo l]on 11-23-2023 Neutrophils (Bld) [#/Vol] 5.4 10 3/uL 1.4-6.5 [facility] Neutrophils/100 WBC Auto (Bl d)on 11-23-2023 Neutrophils/100 WBC (Bld) 65.1 % 43.0-75.0 [facility] No Panel Informationon 11-22 Eosinophils # (Auto) 0.1 10 3/uL 0.0-0.7 [facility] Immature Granulocyte # (Auto) 0.02 10 3/uL 0.00-0.03 [facility] Platelet mean volume Auto (B ld) [Entitic vol]on 11-23-2023 Platelet mean volume (Bld) [Entitic vol] 9.8 fL 9.5-13.5 [facility] Platelets Auto (Bld) [#/Vol] on 11-23-2023 Platelets (Bld) [#/Vol] 235 10 3/uL 150-450 [facility] RBC Auto (Bld) [#/Vol]on RBC (Bld) [#/Vol] 3.84 10 6/uL Low 4.70-6.10 [facility] Serum or plasma albumin/glob ulin mass ratioon 11-23-2023 Albumin/Globulin [Mass ratio] 0.7 {ratio} [facility] Serum or plasma anion gap de terminationon 11-23-2023 Anion gap [Moles/Vol] 12.4 mmol/L [facility] Follow-Upon 11-22-2023 Follow-Up Normal [facility] Ambulatory Visit Summaryon 0 11-19-2023 Ambulatory Visit Summary Ambulatory Visit Summary MARILU DAN SR :1950 Visit Date:11/19/2023 Ambulatory Visit Instructions Your [...] Appointments Sunday 9:15 AM EDT With: NICOLE DAIZ, Cristo Frances Where: [facility] [place] Normal [facility] Urology Office/Clinic Noteon 11-19-2023 Urology Office/Clinic Note Urology Office/Clinic Note Chief Complaint f/u to Hydrocele HPI Staff 5 month f/u. Dx: hydrocele, ED, chronic prostatitis, BPH with obstruction/LUTS, urethral stricture in male, AC. *Tamsulosin 0.8mg qd and Dutasteride 0.5mg qd (needs refill of Tamsulosin) Last PSA 12/01/21 - 1.23. CT AP w con done 10/04/23 (ordered by ER doc) at [facility]. UCx 10/04/23 - >100k Pseudomonas aeruginosa and >100k Klebsiella oxytoca. Given vancomycin. UCx 10/26/23 - 30-40k Sally albicans. CT AP wo con done 10/09/23 at [facility] (ordered due to PREM and continued [...] lying in bed for 8 days. Saw [facility] wound clinic and was given antifungal powder [...] hydroceles, R>>L. CT AP wo con 10/09/23 [facility] - Bilateral hydroceles, L appears somewhat [...] to 16-30 Fr). [1] 7. 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 Had aortic valve replacement. Elevated risk for periop complications in the future. [2] Follow-up With When Contact Information NICOLE DIAZ, Cristo Frances, URL [facility] [address] [place] [phone] Additional Instructions: 1 month (no labs) Patient Education Epididymitis Orchitis IOpal, personally scribed for Dr. Rivera on 11/19/2023 09:43:41. . (more content not included)... Normal [facility] Comment on above: Result Comment: Elec tronically Signed By: Cristo RIVERA MD\.br\Date and Time Signed: 11/19/23 09:45 EDT\.br\Electronically Co-Signed By: Opal Kessler\Date and Time Co-Signed: 11/19/23 09:43 EDT 36on 11-16-2023 36 Normal [facility] Orders Onlyon 11-16-2023 Orders Only Normal [facility] Telephoneon 11-16-2023 Telephone Normal [facility] RAD - CT Reporton 10-30-2023 RAD - CT Report [id number] Normal [facility] Lab Reportson 10-29-2023 Lab Reports [id number]#1.00TIF F Normal [facility] Lab Reports [id number]#1.00TIFF Normal [facility] Lab Reports [id number]#1.00TIF F Normal [facility] Laboratory - Microbiology an d Antimicrobial susceptibilityOrdered By: Cristo Rivera on 10-26-2023 Bacteria identified Cx Nom (U) [facility] Physician Referralon 024 Physician Referral [id number]#1.00TIFF Normal [facility] BASIC METABOLIC PANELon Anion gap [Moles/Vol] 13 mmol/L Normal 7-20 [facility] Comment on above: Performed By: #### L [id number] ####[facility] (BEAKER)[address] [facility] [place] [place] [address] Calcium [Mass/Vol] 7.4 mg/dL Low 8.6-10.3 [facility] Comment on above: Performed By: #### L [id number] ####[facility] (BEAKER)[address] [facility] [place] [address] Chloride [Moles/Vol] 101 mmol/L Normal 98-107 [facility] Comment on above: Performed By: #### L [id number] ####[facility] (BEAKER)[address] [facility] [place] [address] CO2 [Moles/Vol] 24 mmol/L Normal 21-31 [facility] Comment on above: Performed By: #### L [id number] ####[facility] (BEAKER)[address] [facility] [place] [address] Creatinine [Mass/Vol] 0.72 mg/dL Normal 0.70-1.30 [facility] Comment on above: Performed By: #### L [id number] ####[facility] ([facility])[address] [place] [address] GLOMERULAR FILTRATION RATE ML/MIN/1.73 SQ M.PREDICTED 95.3 mL/min/1.73m*2 Normal >60.0 [facility] Comment on above: Result Comment: [facility]???s estimated glomerular filtration rate (eGFR) will [...] of individuals. Performed By: #### L [id number] ####[facility] ([facility])[address] [place] [address] Glucose [Mass/Vol] 168 mg/dL High 70-100 [facility] Comment on above: Performed By: #### L [id number] ####[facility] ([facility])[address] [place] [address] Potassium [Moles/Vol] 4.2 mmol/L Normal 3.5-5.1 [facility] Comment on above: Performed By: #### L [id number] ####[facility] ([facility])[address] [place] [address] Sodium [Moles/Vol] 134 mmol/L Low 136-145 [facility] Comment on above: Performed By: #### L [id number] ####[facility] ([facility])[address] [place] [address] Urea nitrogen [Mass/Vol] 10 mg/dL Normal 7-25 [facility] Comment on above: Performed By: #### L [id number] ####[facility] ([facility])[address] [place] [address] UREA NITROGEN/CREATININE (MASS RATIO) IN SER/PLAS 13.9 Normal [facility] Comment on above: Performed By: #### L [id number] ####[facility] ([facility])[address] [place] [address] CBC WITH AUTO DIFFERENTIALon 10-13-2023 Basophils (Bld) [#/Vol] 0.04 10*3/uL Normal 0.00-0.20 [facility] Comment on above: Performed By: #### L [id number] ####[facility] ([facility])[address] [place] [address] Basophils/100 WBC (Bld) 0.3 % Normal 0.0-1.0 [facility] Comment on above: Performed By: #### L [id number] ####[facility] ([facility])[address] [place] [address] Eosinophils (Bld) [#/Vol] 0.20 10*3/uL Normal 0.00-0.50 [facility] Comment on above: Performed By: #### L [id number] ####[facility] (BEAKER)[address] [place] [address] Eosinophils/100 WBC (Bld) 1.5 % Normal 0.0-6.0 [facility] Comment on above: Performed By: #### L [id number] ####[facility] (BEAKER)[address] [place] [address] Erythrocyte distribution width (RBC) [Ratio] 14.2 % Normal 11.5-15.0 [facility] Comment on above: Performed By: #### L [id number] ####[facility] (BEAKER)[address] [place] [address] ERYTHROCYTE MEAN CORPUSCULAR HEMOGLOBIN CONCENTRATION (G/DL) BY AUTOMATED 31.9 g/dL Low 32.0-35.0 [facility] Comment on above: Performed By: #### L [id number] ####[facility] ([facility]ER)[address] [place] [address] Hematocrit (Bld) [Volume fraction] 29.5 % Low 39.0-55.0 [facility] Comment on above: Performed By: #### L [id number] ####[facility] ([facility]ER)[address] [place] [address] Hemoglobin (Bld) [Mass/Vol] 9.4 g/dL Low 13.0-17.0 [facility] Comment on above: Performed By: #### L [id number] ####[facility] ([facility])[address] [place] [address] Immature granulocytes (Bld) [#/Vol] 0.24 10*3/uL High 0.00-0.20 [facility] Comment on above: Performed By: #### L [id number] ####[facility] ([facility]ER)[address] [place] [address] Immature granulocytes/100 WBC (Bld) 1.8 % High 0.0-1.0 [facility] Comment on above: Performed By: #### L [id number] ####[facility] ([facility]ER)[address] [place] [address] Lymphocytes (Bld) [#/Vol] 1.35 10*3/uL Normal 1.20-4.00 [facility] Comment on above: Performed By: #### L [id number] ####[facility] ([facility])[address] [place] [address] Lymphocytes/100 WBC (Bld) 10.1 % Low 20.0-45.0 [facility] Comment on above: Performed By: #### L [id number] ####[facility] ([facility]ER)[address] [place] [address] MCH (RBC) [Entitic mass] 29.8 pg Normal 27.0-33.0 [facility] Comment on above: Performed By: #### L [id number] ####[facility] ([facility]ER)[address] [place] [address] MCV (RBC) [Entitic vol] 93.7 fL Normal 82.0-98.0 [facility] Comment on above: Performed By: #### L [id number] ####[facility] ([facility])[address] [place] [address] Monocytes (Bld) [#/Vol] 0.85 10*3/uL Normal 0.10-1.00 [facility] Comment on above: Performed By: #### L [id number] ####[facility] ([facility])[address] [address] Monocytes/100 WBC (Bld) 6.3 % Normal 5.0-12.0 [facility] Comment on above: Performed By: #### L [id number] ####[facility] ([facility])[address] [place] [address] Neutrophils (Bld) [#/Vol] 10.74 10*3/uL High 1.60-7.60 [facility] Comment on above: Performed By: #### L [id number] ####[facility] ([facility])[address] [place] [address] Neutrophils/100 WBC (Bld) 80.0 % High 40.0-72.0 [facility] Comment on above: Performed By: #### L [id number] ####[facility] ([facility])[address] [place] [address] NRBC (PER 100 WBCS) BY AUTOMATED COUNT 0.0 % Normal 0 [facility] Comment on above: Performed By: #### L [id number] ####[facility] ([facility])[address] [place] [address] PLATELETS (10*3/UL) IN BLOOD AUTOMATED COUNT 251 10*3/uL Normal 150-400 [facility] Comment on above: Performed By: #### L [id number] ####[facility] ([facility])[address] [place] [address] RBC (Bld) [#/Vol] 3.15 10*6/uL Low 4.20-5.70 [facility] Comment on above: Performed By: #### L [id number] ####[facility] ([facility])[address] [place] [address] WBC (Bld) [#/Vol] 13.42 10*3/uL High 4.00-10.60 [facility] Comment on above: Performed By: #### L [id number] ####[facility] ([facility])[address] [place] [address] DSon 10-13-2023 DS Normal [facility] POCT GLUCOSE METER UNSOLICIT ED RESULTSon 10-13-2023 Glucose [Mass/Vol] 197 mg/dL High 70-105 [facility] Comment on above: Order Comment: Waive d Testing in the ED is performed under the ED CLIA certificate #[id number]. Result Comment: sbel cad Performed By: #### L [id number] ####[facility] ([facility])[address] [place] [address] 30on 10-12-2023 30 Normal [facility] APTTon 10-12-2023 ACTIVATED PARTIAL THROMBOPLASTIN TIME IN PPP BY COAGULATION ASSAY 140.8 Seconds Critically high 25.0-35.0 [facility] Comment on above: Result Comment: Clin ical significance of the APTT is questionable in the presence of heparin. Performed By: #### L [id number] ####[facility] ([facility])[address] [place] [address] ACTIVATED PARTIAL THROMBOPLASTIN TIME IN PPP BY COAGULATION ASSAY 128.9 Seconds High 25.0-35.0 [facility] Comment on above: Result Comment: Clin ical significance of the APTT is questionable in the presence of heparin. Performed By: #### L [id number] ####[facility] ([facility])[address] [place] [address] BASIC METABOLIC PANELon 09-13 Anion gap [Moles/Vol] 8 mmol/L Normal 7-20 [facility] Comment on above: Performed By: #### L [id number] ####[facility] ([facility])[address] [place] [address] Calcium [Mass/Vol] 7.2 mg/dL Low 8.6-10.3 [facility] Comment on above: Performed By: #### L [id number] ####[facility] ([facility])[address] [place] [address] Chloride [Moles/Vol] 102 mmol/L Normal 98-107 [facility] Comment on above: Performed By: #### L [id number] ####[facility] ([facility])[address] [place] [address] CO2 [Moles/Vol] 30 mmol/L Normal 21-31 [facility] Comment on above: Performed By: #### L [id number] ####[facility] [facility] ([facility])[address] [place] [address] Creatinine [Mass/Vol] 0.68 mg/dL Low 0.70-1.30 [facility] Comment on above: Performed By: #### L [id number] ####[facility] ([facility])[address] [place] [address] GLOMERULAR FILTRATION RATE ML/MIN/1.73 SQ M.PREDICTED 96.9 mL/min/1.73m*2 Normal >60.0 [facility] Comment on above: Result Comment: [facility]???s estimated glomerular filtration rate (eGFR) will [...] of individuals. Performed By: #### L [id number] ####[facility] ([facility])[address] [place] [address] Glucose [Mass/Vol] 140 mg/dL High 70-100 [facility] Comment on above: Performed By: #### L [id number] ####[facility] ([facility])[address] [place] [address] Potassium [Moles/Vol] 3.3 mmol/L Low 3.5-5.1 [facility] Comment on above: Performed By: #### L [id number] ####[facility] ([facility])[address] [place] [address] Sodium [Moles/Vol] 137 mmol/L Normal 136-145 [facility] Comment on above: Performed By: #### L [id number] ####[facility] ([facility])[address] [place] [address] Urea nitrogen [Mass/Vol] 9 mg/dL Normal 7-25 [facility] Comment on above: Performed By: #### L [id number] ####[facility] ([facility])[address] [place] [address] UREA NITROGEN/CREATININE (MASS RATIO) IN SER/PLAS 13.2 Normal [facility] Comment on above: Performed By: #### L [id number] ####[facility] ([facility])[address] [place] [address] CBC WITH AUTO DIFFERENTIALon 10-12-2023 Basophils (Bld) [#/Vol] 0.03 10*3/uL Normal 0.00-0.20 [facility] Comment on above: Performed By: #### L [id number] ####[facility] ([facility])[address] [place] [address] Basophils/100 WBC (Bld) 0.2 % Normal 0.0-1.0 [facility] Comment on above: Performed By: #### L [id number] ####[facility] ([facility])[address] [place] [address] Eosinophils (Bld) [#/Vol] 0.21 10*3/uL Normal 0.00-0.50 [facility] Comment on above: Performed By: #### L [id number] ####[facility] ([facility])[address] [place] [address] Eosinophils/100 WBC (Bld) 1.4 % Normal 0.0-6.0 [facility] Comment on above: Performed By: #### L [id number] ####[facility] ([facility])[address] [place] [address] Erythrocyte distribution width (RBC) [Ratio] 13.7 % Normal 11.5-15.0 [facility] Comment on above: Performed By: #### L [id number] ####[facility] ([facility])[address] [place] [address] ERYTHROCYTE MEAN CORPUSCULAR HEMOGLOBIN CONCENTRATION (G/DL) BY AUTOMATED 32.3 g/dL Normal 32.0-35.0 [facility] Comment on above: Performed By: #### L [id number] ####[facility] ([facility])[address] [place] [address] Hematocrit (Bld) [Volume fraction] 29.4 % Low 39.0-55.0 [facility] Comment on above: Performed By: #### L [id number] ####[facility] ([facility])[address] [place] [address] Hemoglobin (Bld) [Mass/Vol] 9.5 g/dL Low 13.0-17.0 [facility] Comment on above: Performed By: #### L [id number] ####[facility] ([facility])[address] [place] [address] Immature granulocytes (Bld) [#/Vol] 0.48 10*3/uL High 0.00-0.20 [facility] Comment on above: Performed By: #### L [id number] ####[facility] ([facility])[address] [place] [address] Immature granulocytes/100 WBC (Bld) 3.2 % High 0.0-1.0 [facility] Comment on above: Performed By: #### L [id number] ####[facility] ([facility])[address] [place] [address] Lymphocytes (Bld) [#/Vol] 2.16 10*3/uL Normal 1.20-4.00 [facility] Comment on above: Performed By: #### L [id number] ####[facility] ([facility])[address] [place] [address] Lymphocytes/100 WBC (Bld) 14.3 % Low 20.0-45.0 [facility] Comment on above: Performed By: #### L [id number] ####[facility] ([facility])[address] [place] [address] MCH (RBC) [Entitic mass] 29.1 pg Normal 27.0-33.0 [facility] Comment on above: Performed By: #### L [id number] ####[facility] ([facility])[address] [place] [address] MCV (RBC) [Entitic vol] 90.2 fL Normal 82.0-98.0 [facility] Comment on above: Performed By: #### L [id number] ####[facility] ([facility])[address] [place] [address] Monocytes (Bld) [#/Vol] 0.95 10*3/uL Normal 0.10-1.00 [facility] Comment on above: Performed By: #### L [id number] ####[facility] ([facility])[address] [place] [address] Monocytes/100 WBC (Bld) 6.3 % Normal 5.0-12.0 [facility] Comment on above: Performed By: #### L [id number] ####[facility] ([facility])[address] [place] [address] Neutrophils (Bld) [#/Vol] 11.30 10*3/uL High 1.60-7.60 [facility] Comment on above: Performed By: #### L [id number] ####[facility] ([facility])[address] [place] [address] Neutrophils/100 WBC (Bld) 74.6 % High 40.0-72.0 [facility] Comment on above: Performed By: #### L [id number] ####[facility] ([facility])[address] [place] [address] NRBC (PER 100 WBCS) BY AUTOMATED COUNT 0.0 % Normal 0 [facility] Comment on above: Performed By: #### L [id number] ####[facility] ([facility])[address] [place] [address] PLATELETS (10*3/UL) IN BLOOD AUTOMATED COUNT 273 10*3/uL Normal 150-400 [facility] Comment on above: Performed By: #### L [id number] ####[facility] ([facility])[address] [place] [address] RBC (Bld) [#/Vol] 3.26 10*6/uL Low 4.20-5.70 [facility] Comment on above: Performed By: #### L [id number] ####[facility] ([facility])[address] [place] [address] WBC (Bld) [#/Vol] 15.13 10*3/uL High 4.00-10.60 [facility] Comment on above: Performed By: #### L [id number] ####[facility] ([facility])[address] [place] [address] POCT GLUCOSE METER UNSOLICIT ED RESULTSon 10-12-2023 Glucose [Mass/Vol] 136 mg/dL High 70-105 [facility] Comment on above: Order Comment: Waive d Testing in the ED is performed under the ED CLIA certificate #[id number]. Result Comment: [email or web address] Performed By: #### L [id number] ####[facility] ([facility])[address] [place] [address] Glucose [Mass/Vol] 205 mg/dL High 70-105 [facility] Comment on above: Order Comment: Waive d Testing in the ED is performed under the ED CLIA certificate #[id number]. Result Comment: [email or web address] Performed By: #### L [id number] ####[facility] ([facility])[address] [place] [address] Glucose [Mass/Vol] 295 mg/dL High 70-105 [facility] Comment on above: Order Comment: Waive d Testing in the ED is performed under the ED CLIA certificate #[id number]. Result Comment: [email or web address] Performed By: #### L [id number] ####[facility] ([facility])[address] [place] [address] Glucose [Mass/Vol] 156 mg/dL High 70-105 [facility] Comment on above: Order Comment: Waive d Testing in the ED is performed under the ED CLIA certificate #[id number]. Result Comment: [email or web address] Performed By: #### L [id number] ####[facility] ([facility])[address] [place] [address] 30on 10-11-2023 30 Normal [facility] APTTon 10-11-2023 ACTIVATED PARTIAL THROMBOPLASTIN TIME IN PPP BY COAGULATION ASSAY 167.7 Seconds Critically high 25.0-35.0 [facility] Comment on above: Result Comment: Clin ical significance of the APTT is questionable in the presence of heparin. Performed By: #### L [id number] ####[facility] ([facility])[address] [place] [address] ACTIVATED PARTIAL THROMBOPLASTIN TIME IN PPP BY COAGULATION ASSAY 135.7 Seconds Critically high 25.0-35.0 [facility] Comment on above: Result Comment: Clin ical significance of the APTT is questionable in the presence of heparin. Performed By: #### L [id number] ####[facility] ([facility])[address] [place] [address] ACTIVATED PARTIAL THROMBOPLASTIN TIME IN PPP BY COAGULATION ASSAY 113.2 Seconds High 25.0-35.0 [facility] Comment on above: Result Comment: Clin ical significance of the APTT is questionable in the presence of heparin. Performed By: #### L [id number] ####[facility] ([facility])[address] [place] [address] BASIC METABOLIC PANELon 05-3 0-2024 Anion gap [Moles/Vol] 9 mmol/L Normal 7-20 [facility] Comment on above: Performed By: #### L [id number] ####[facility] ([facility])[address] [place] [address] Calcium [Mass/Vol] 7.6 mg/dL Low 8.6-10.3 [facility] Comment on above: Performed By: #### L [id number] ####[facility] ([facility])[address] [place] [address] Chloride [Moles/Vol] 99 mmol/L Normal 98-107 [facility] Comment on above: Performed By: #### L [id number] ####[facility] ([facility])[address] [place] [address] CO2 [Moles/Vol] 30 mmol/L Normal 21-31 [facility] Comment on above: Performed By: #### L [id number] ####[facility] ([facility])[address] [place] [address] Creatinine [Mass/Vol] 0.67 mg/dL Low 0.70-1.30 [facility] Comment on above: Performed By: #### L [id number] ####[facility] ([facility])[address] [place] [address] GLOMERULAR FILTRATION RATE ML/MIN/1.73 SQ M.PREDICTED 97.4 mL/min/1.73m*2 Normal >60.0 [facility] Comment on above: Result Comment: [facility]???s estimated glomerular filtration rate (eGFR) will [...] of individuals. Performed By: #### L [id number] ####[facility] ([facility])[address] [place] [address] Glucose [Mass/Vol] 145 mg/dL High 70-100 [facility] Comment on above: Performed By: #### L [id number] ####[facility] ([facility])[address] [place] [address] Potassium [Moles/Vol] 3.1 mmol/L Low 3.5-5.1 [facility] Comment on above: Performed By: #### L [id number] ####[facility] ([facility])[address] [place] [address] Sodium [Moles/Vol] 135 mmol/L Low 136-145 [facility] Comment on above: Performed By: #### L [id number] ####[facility] ([facility])[address] [place] [address] Urea nitrogen [Mass/Vol] 14 mg/dL Normal 7-25 [facility] Comment on above: Performed By: #### L [id number] ####[facility] ([facility])[address] [place] [address] UREA NITROGEN/CREATININE (MASS RATIO) IN SER/PLAS 20.9 Normal [facility] Comment on above: Performed By: #### L [id number] ####[facility] ([facility])[address] [place] [address] CBC WITH AUTO DIFFERENTIALon 10-11-2023 Basophils (Bld) [#/Vol] 0.03 10*3/uL Normal 0.00-0.20 [facility] Comment on above: Performed By: #### L [id number] ####[facility] ([facility])[address] [place] [address] Basophils/100 WBC (Bld) 0.2 % Normal 0.0-1.0 [facility] Comment on above: Performed By: #### L [id number] ####[facility] ([facility])[address] [place] [address] Eosinophils (Bld) [#/Vol] 0.17 10*3/uL Normal 0.00-0.50 [facility] Comment on above: Performed By: #### L [id number] ####[facility] ([facility])[address] [place] [address] Eosinophils/100 WBC (Bld) 1.3 % Normal 0.0-6.0 [facility] Comment on above: Performed By: #### L [id number] ####[facility] ([facility])[address] [place] [address] Erythrocyte distribution width (RBC) [Ratio] 13.7 % Normal 11.5-15.0 [facility] Comment on above: Performed By: #### L [id number] ####[facility] ([facility])[address] [place] [address] ERYTHROCYTE MEAN CORPUSCULAR HEMOGLOBIN CONCENTRATION (G/DL) BY AUTOMATED 32.6 g/dL Normal 32.0-35.0 [facility] Comment on above: Performed By: #### L [id number] ####[facility] ([facility])[address] [place] [address] Hematocrit (Bld) [Volume fraction] 30.1 % Low 39.0-55.0 [facility] Comment on above: Performed By: #### L [id number] ####[facility] ([facility])[address] [place] [address] Hemoglobin (Bld) [Mass/Vol] 9.8 g/dL Low 13.0-17.0 [facility] Comment on above: Performed By: #### L [id number] ####[facility] ([facility])[address] [place] [address] Immature granulocytes (Bld) [#/Vol] 0.39 10*3/uL High 0.00-0.20 [facility] Comment on above: Performed By: #### L [id number] ####[facility] ([facility])[address] [place] [address] Immature granulocytes/100 WBC (Bld) 3.0 % High 0.0-1.0 [facility] Comment on above: Performed By: #### L [id number] ####[facility] ([facility])[address] [place] [address] Lymphocytes (Bld) [#/Vol] 1.65 10*3/uL Normal 1.20-4.00 [facility] Comment on above: Performed By: #### L [id number] ####[facility] ([facility])[address] [place] [address] Lymphocytes/100 WBC (Bld) 12.6 % Low 20.0-45.0 [facility] Comment on above: Performed By: #### L [id number] ####[facility] ([facility])[address] [place] [address] MCH (RBC) [Entitic mass] 29.7 pg Normal 27.0-33.0 [facility] Comment on above: Performed By: #### L [id number] ####[facility] ([facility])[address] [place] [address] MCV (RBC) [Entitic vol] 91.2 fL Normal 82.0-98.0 [facility] Comment on above: Performed By: #### L [id number] ####[facility] ([facility])[address] [place] [address] Monocytes (Bld) [#/Vol] 1.07 10*3/uL High 0.10-1.00 [facility] Comment on above: Performed By: #### L [id number] ####[facility] ([facility])[address] [place] [address] Monocytes/100 WBC (Bld) 8.2 % Normal 5.0-12.0 [facility] Comment on above: Performed By: #### L [id number] ####[facility] ([facility])[address] [place] [address] Neutrophils (Bld) [#/Vol] 9.75 10*3/uL High 1.60-7.60 [facility] Comment on above: Performed By: #### L [id number] ####[facility] ([facility])[address] [place] [address] Neutrophils/100 WBC (Bld) 74.7 % High 40.0-72.0 [facility] Comment on above: Performed By: #### L [id number] ####[facility] ([facility])[address] [place] [address] NRBC (PER 100 WBCS) BY AUTOMATED COUNT 0.0 % Normal 0 [facility] Comment on above: Performed By: #### L [id number] ####[facility] ([facility])[address] [place] [address] PLATELETS (10*3/UL) IN BLOOD AUTOMATED COUNT 246 10*3/uL Normal 150-400 [facility] Comment on above: Performed By: #### L [id number] ####[facility] ([facility])[address] [address] RBC (Bld) [#/Vol] 3.30 10*6/uL Low 4.20-5.70 [facility] Comment on above: Performed By: #### L [id number] ####[facility] ([facility])[address] [place], [place] [address] WBC (Bld) [#/Vol] 13.06 10*3/uL High 4.00-10.60 [facility] Comment on above: Performed By: #### L [id number] ####[facility] ([facility])[address] [place], [place] [address] MAGNESIUMon 10-11-2023 Magnesium [Mass/Vol] 1.9 mg/dL Normal 1.9-2.7 [facility] Comment on above: Performed By: #### L [id number] ####[facility] ([facility])[address] [place] [address] POCT GLUCOSE METER UNSOLICIT ED RESULTSon 10-11-2023 Glucose [Mass/Vol] 240 mg/dL High 70-105 [facility] Comment on above: Order Comment: Waive d Testing in the ED is performed under the ED CLIA certificate #[id number]. Result Comment: [email or web address] Performed By: #### L [id number] ####[facility] ([facility])[address] [place] [address] Glucose [Mass/Vol] 158 mg/dL High 70-105 [facility] Comment on above: Order Comment: Waive d Testing in the ED is performed under the ED CLIA certificate #[id number]. Result Comment: [email or web address] Performed By: #### L [id number] ####[facility] ([facility])[address] [place] [address] Glucose [Mass/Vol] 119 mg/dL High 70-105 [facility] Comment on above: Order Comment: Waive d Testing in the ED is performed under the ED CLIA certificate #[id number]. Result Comment: [email or web address] Performed By: #### L [id number] ####[facility] ([facility])[address] [place] [address] Glucose [Mass/Vol] 312 mg/dL High 70-105 [facility] Comment on above: Order Comment: Waive d Testing in the ED is performed under the ED CLIA certificate #[id number]. Result Comment: [email or web address] Performed By: #### L [id number] ####[facility] ([facility])[address] [place] [address] Glucose [Mass/Vol] 142 mg/dL High 70-105 [facility] Comment on above: Order Comment: Waive d Testing in the ED is performed under the ED CLIA certificate #[id number]. Result Comment: [email or web address] Performed By: #### L [id number] ####[facility] ([facility])[address] [place] [address] Glucose [Mass/Vol] 180 mg/dL High 70-105 [facility] Comment on above: Order Comment: Waive d Testing in the ED is performed under the ED CLIA certificate #[id number]. Result Comment: [email or web address] Performed By: #### L [id number] ####[facility] ([facility])[address] [place] [address] 30on 10-10-2023 30 Normal [facility] APTTon 10-10-2023 ACTIVATED PARTIAL THROMBOPLASTIN TIME IN PPP BY COAGULATION ASSAY 117.1 Seconds High 25.0-35.0 [facility] Comment on above: Result Comment: Clin ical significance of the APTT is questionable in the presence of heparin. Performed By: #### L [id number] ####[facility] ([facility])[address] [place] [address] ACTIVATED PARTIAL THROMBOPLASTIN TIME IN PPP BY COAGULATION ASSAY 135.6 Seconds Critically high 25.0-35.0 [facility] Comment on above: Result Comment: Clin ical significance of the APTT is questionable in the presence of heparin. Performed By: #### L [id number] ####[facility] ([facility])[address] [place] [address] ACTIVATED PARTIAL THROMBOPLASTIN TIME IN PPP BY COAGULATION ASSAY 140.7 Seconds Critically high 25.0-35.0 [facility] Comment on above: Result Comment: Clin ical significance of the APTT is questionable in the presence of heparin. Performed By: #### L [id number] ####[facility] ([facility])[address] [place] [address] CBCon 10-10-2023 Erythrocyte distribution width (RBC) [Ratio] 13.8 % Normal 11.5-15.0 [facility] Comment on above: Performed By: #### L [id number] ####[facility] ([facility])[address] [place] [address] ERYTHROCYTE MEAN CORPUSCULAR HEMOGLOBIN CONCENTRATION (G/DL) BY AUTOMATED 31.9 g/dL Low 32.0-35.0 [facility] Comment on above: Performed By: #### L [id number] ####[facility] ([facility])[address] [place] [address] Hematocrit (Bld) [Volume fraction] 30.7 % Low 39.0-55.0 [facility] Comment on above: Performed By: #### L [id number] ####[facility] ([facility])[address] [place] [address] Hemoglobin (Bld) [Mass/Vol] 9.8 g/dL Low 13.0-17.0 [facility] Comment on above: Performed By: #### L [id number] ####[facility] ([facility])[address] [place] [address] MCH (RBC) [Entitic mass] 29.3 pg Normal 27.0-33.0 [facility] Comment on above: Performed By: #### L [id number] ####[facility] ([facility])[address] [place] [address] MCV (RBC) [Entitic vol] 91.6 fL Normal 82.0-98.0 [facility] Comment on above: Performed By: #### L [id number] ####[facility] ([facility])[address] [place] [address] PLATELETS (10*3/UL) IN BLOOD AUTOMATED COUNT 220 10*3/uL Normal 150-400 [facility] Comment on above: Performed By: #### L [id number] ####[facility] ([facility])[address] [place] [address] RBC (Bld) [#/Vol] 3.35 10*6/uL Low 4.20-5.70 [facility] Comment on above: Performed By: #### L [id number] ####[facility] ([facility])[address] [place] [address] WBC (Bld) [#/Vol] 12.50 10*3/uL High 4.00-10.60 [facility] Comment on above: Performed By: #### L [id number] ####[facility] ([facility])[address] [place] [address] NURSNOTEon 10-10-2023 NURSNOTE Normal [facility] NURSNOTE Normal [facility] POCT GLUCOSE METER UNSOLICIT ED RESULTSon 10-10-2023 Glucose [Mass/Vol] 148 mg/dL High 70-105 [facility] Comment on above: Order Comment: Waive d Testing in the ED is performed under the ED CLIA certificate #[id number]. Result Comment: [email or web address] Performed By: #### L [id number] ####[facility] ([facility])[address] [facility] [place] [place] [address] Glucose [Mass/Vol] 151 mg/dL High 70-105 [facility] Comment on above: Order Comment: Waive d Testing in the ED is performed under the ED CLIA certificate #[id number]. Result Comment: [email or web address] [email or web address] Performed By: #### L [id number] ####[facility] ([facility])[address] [facility] [address] 30on 10-09-2023 30 Normal [facility] APTTon 10-09-2023 ACTIVATED PARTIAL THROMBOPLASTIN TIME IN PPP BY COAGULATION ASSAY 113.5 Seconds High 25.0-35.0 [facility] Comment on above: Result Comment: Clin ical significance of the APTT is questionable in the presence of heparin. Performed By: #### L [id number] ####[facility] ([facility])[address] [facility] [place] [place] [address] ACTIVATED PARTIAL THROMBOPLASTIN TIME IN PPP BY COAGULATION ASSAY 110.9 Seconds High 25.0-35.0 [facility] Comment on above: Result Comment: Clin ical significance of the APTT is questionable in the presence of heparin. Performed By: #### L [id number] ####[facility] ([facility])[address] [place] [address] BASIC METABOLIC PANELon 09-12 Anion gap [Moles/Vol] 14 mmol/L Normal 7-20 [facility] Comment on above: Performed By: #### L [id number] ####[facility] ([facility])[address] [facility] [place] [place] [address] Calcium [Mass/Vol] 7.3 mg/dL Low 8.6-10.3 [facility] Comment on above: Performed By: #### L [id number] ####[facility] ([facility])[address] [place] [address] Chloride [Moles/Vol] 98 mmol/L Normal 98-107 [facility] Comment on above: Performed By: #### L [id number] ####[facility] ([facility])[address] [place] [address] CO2 [Moles/Vol] 30 mmol/L Normal 21-31 [facility] Comment on above: Performed By: #### L [id number] ####[facility] ([facility])[address] [place] [address] Creatinine [Mass/Vol] 0.89 mg/dL Normal 0.70-1.30 [facility] Comment on above: Performed By: #### L [id number] ####[facility] ([facility])[address] [place] [address] GLOMERULAR FILTRATION RATE ML/MIN/1.73 SQ M.PREDICTED 89.4 mL/min/1.73m*2 Normal >60.0 [facility] Comment on above: Result Comment: [facility]???s estimated glomerular filtration rate (eGFR) will [...] of individuals. Performed By: #### L [id number] ####[facility] ([facility])[address] [place] [address] Glucose [Mass/Vol] 171 mg/dL High 70-100 [facility] Comment on above: Performed By: #### L [id number] ####[facility] ([facility])[address] [place] [address] Potassium [Moles/Vol] 3.6 mmol/L Normal 3.5-5.1 [facility] Comment on above: Performed By: #### L [id number] ####[facility] ([facility])[address] [place] [address] Sodium [Moles/Vol] 138 mmol/L Normal 136-145 [facility] Comment on above: Performed By: #### L [id number] ####[facility] ([facility])[address] [place] [address] Urea nitrogen [Mass/Vol] 24 mg/dL Normal 7-25 [facility] Comment on above: Performed By: #### L [id number] ####[facility] ([facility])[address] [place] [address] UREA NITROGEN/CREATININE (MASS RATIO) IN SER/PLAS 27.0 Normal [facility] Comment on above: Performed By: #### L [id number] ####[facility] ([facility])[address] [place] [address] CBCon 10-09-2023 Erythrocyte distribution width (RBC) [Ratio] 13.6 % Normal 11.5-15.0 [facility] Comment on above: Performed By: #### L [id number] ####[facility] ([facility])[address] [place] [address] ERYTHROCYTE MEAN CORPUSCULAR HEMOGLOBIN CONCENTRATION (G/DL) BY AUTOMATED 32.1 g/dL Normal 32.0-35.0 [facility] Comment on above: Performed By: #### L [id number] ####[facility] ([facility])[address] [place] [address] Hematocrit (Bld) [Volume fraction] 29.6 % Low 39.0-55.0 [facility] Comment on above: Performed By: #### L [id number] ####[facility] ([facility])[address] [place] [address] Hemoglobin (Bld) [Mass/Vol] 9.5 g/dL Low 13.0-17.0 [facility] Comment on above: Performed By: #### L [id number] ####[facility] ([facility])[address] [place] [address] MCH (RBC) [Entitic mass] 29.4 pg Normal 27.0-33.0 [facility] Comment on above: Performed By: #### L [id number] ####[facility] ([facility])[address] [place] [address] MCV (RBC) [Entitic vol] 91.6 fL Normal 82.0-98.0 [facility] Comment on above: Performed By: #### L [id number] ####[facility] ([facility])[address] [place] [address] PLATELETS (10*3/UL) IN BLOOD AUTOMATED COUNT 180 10*3/uL Normal 150-400 [facility] Comment on above: Performed By: #### L [id number] ####[facility] ([facility])[address] [place] [address] RBC (Bld) [#/Vol] 3.23 10*6/uL Low 4.20-5.70 [facility] Comment on above: Performed By: #### L [id number] ####[facility] ([facility])[address] [address] WBC (Bld) [#/Vol] 12.91 10*3/uL High 4.00-10.60 [facility] Comment on above: Performed By: #### L [id number] ####[facility] ([facility])[address] [place] [address] CONSULTon 10-09-2023 CONSULT Normal [facility] CONSULT Normal [facility] CONSULT Normal [facility] CT ABDOMEN PELVIS WO IV CONT RASTon 10-09-2023 CT ABDOMEN PELVIS WO IV CONTRAST Invalid Interpretation Code [facility] Comment on above: Order Comment: With Oral contrast MAGNESIUMon 10-09-2023 Magnesium [Mass/Vol] 2.2 mg/dL Normal 1.9-2.7 [facility] Comment on above: Performed By: #### L [id number] ####[facility] ([facility])[address] [place] [address] PHOSPHORUSon 10-09-2023 Magnesium [Mass/Vol] 2.3 mg/dL Low 2.5-5.0 [facility] Comment on above: Performed By: #### L [id number] ####[facility] ([facility])[address] [place] [address] POCT GLUCOSE METER UNSOLICIT ED RESULTSon 10-09-2023 Glucose [Mass/Vol] 186 mg/dL High 70-105 [facility] Comment on above: Order Comment: Waive d Testing in the ED is performed under the ED CLIA certificate #[id number]. Result Comment: [email or web address] [email or web address] Performed By: #### L [id number] ####[facility] ([facility])[address] [place] [address] Glucose [Mass/Vol] 136 mg/dL High 70-105 [facility] Comment on above: Order Comment: Waive d Testing in the ED is performed under the ED CLIA certificate #[id number]. Result Comment: dnuc kol Performed By: #### L [id number] ####[facility] ([facility])[address] [place] [address] Glucose [Mass/Vol] 172 mg/dL High 70-105 [facility] Comment on above: Order Comment: Waive d Testing in the ED is performed under the ED CLIA certificate #[id number]. Result Comment: dnuc kol Performed By: #### L [id number] ####[facility] ([facility])[address] [place] [address] Glucose [Mass/Vol] 172 mg/dL High 70-105 [facility] Comment on above: Order Comment: Waive d Testing in the ED is performed under the ED CLIA certificate #[id number]. Result Comment: balta tti Performed By: #### L [id number] ####[facility] ([place])[address] [place] [address] Glucose [Mass/Vol] 169 mg/dL High 70-105 [facility] Comment on above: Order Comment: Waive d Testing in the ED is performed under the ED CLIA certificate #[id number]. Result Comment: [email or web address] tti Performed By: #### L [id number] ####[facility] ([facility])[address] [place] [address] APTTon 10-08-2023 ACTIVATED PARTIAL THROMBOPLASTIN TIME IN PPP BY COAGULATION ASSAY 65.5 Seconds High 25.0-35.0 [facility] Comment on above: Result Comment: Clin ical significance of the APTT is questionable in the presence of heparin. Performed By: #### L [id number] ####[facility] ([facility])[address] [place] [address] ACTIVATED PARTIAL THROMBOPLASTIN TIME IN PPP BY COAGULATION ASSAY 43.4 Seconds High 25.0-35.0 [facility] Comment on above: Result Comment: Clin ical significance of the APTT is questionable in the presence of heparin. Performed By: #### L [id number] ####[facility] ([facility])[address] [place] [address] ACTIVATED PARTIAL THROMBOPLASTIN TIME IN PPP BY COAGULATION ASSAY 75.0 Seconds High 25.0-35.0 [facility] Comment on above: Result Comment: Clin ical significance of the APTT is questionable in the presence of heparin. Performed By: #### L [id number] ####[facility] ([facility])[address] [place] [address] BASIC METABOLIC PANELon - Anion gap [Moles/Vol] 10 mmol/L Normal 7-20 [facility] Comment on above: Performed By: #### L [id number] ####[facility] ([facility])[address] [place] [address] Calcium [Mass/Vol] 7.5 mg/dL Low 8.6-10.3 [facility] Comment on above: Performed By: #### L [id number] ####[facility] ([facility])[address] [place] [address] Chloride [Moles/Vol] 97 mmol/L Low 98-107 [facility] Comment on above: Performed By: #### L [id number] ####[facility] ([facility])[address] [place] [address] CO2 [Moles/Vol] 31 mmol/L Normal 21-31 [facility] Comment on above: Performed By: #### L [id number] ####[facility] ([facility])[address] [place] [address] Creatinine [Mass/Vol] 0.93 mg/dL Normal 0.70-1.30 [facility] Comment on above: Performed By: #### L [id number] ####[facility] ([facility])[address] [place] [address] GLOMERULAR FILTRATION RATE ML/MIN/1.73 SQ M.PREDICTED 85.6 mL/min/1.73m*2 Normal >60.0 [facility] Comment on above: Result Comment: [facility]???s estimated glomerular filtration rate (eGFR) will [...] of individuals. Performed By: #### L [id number] ####[facility] ([facility])[address] [place] [address] Glucose [Mass/Vol] 128 mg/dL High 70-100 [facility] Comment on above: Performed By: #### L [id number] ####[facility] ([facility])[address] [place] [address] Potassium [Moles/Vol] 3.4 mmol/L Low 3.5-5.1 [facility] Comment on above: Performed By: #### L [id number] ####[facility] ([facility])[address] [place] [address] Sodium [Moles/Vol] 135 mmol/L Low 136-145 [facility] Comment on above: Performed By: #### L [id number] ####[facility] ([facility])[address] [place] [address] Urea nitrogen [Mass/Vol] 26 mg/dL High 7-25 [facility] Comment on above: Performed By: #### L [id number] ####[facility] ([facility])[address] [place] [address] UREA NITROGEN/CREATININE (MASS RATIO) IN SER/PLAS 28.0 Normal [facility] Comment on above: Performed By: #### L [id number] ####[facility] ([facility])[address] [place] [address] CBCon 10-08-2023 Erythrocyte distribution width (RBC) [Ratio] 13.3 % Normal 11.5-15.0 [facility] Comment on above: Performed By: #### L [id number] ####[facility] ([facility])[address] [place] [address] ERYTHROCYTE MEAN CORPUSCULAR HEMOGLOBIN CONCENTRATION (G/DL) BY AUTOMATED 33.9 g/dL Normal 32.0-35.0 [facility] Comment on above: Performed By: #### L [id number] ####[facility] ([facility])[address] [place] [address] Hematocrit (Bld) [Volume fraction] 30.1 % Low 39.0-55.0 [facility] Comment on above: Performed By: #### L [id number] ####[facility] ([facility])[address] [place] [address] Hemoglobin (Bld) [Mass/Vol] 10.2 g/dL Low 13.0-17.0 [facility] Comment on above: Performed By: #### L [id number] ####[facility] ([facility])[address] [place] [address] MCH (RBC) [Entitic mass] 30.0 pg Normal 27.0-33.0 [facility] Comment on above: Performed By: #### L [id number] ####[facility] ([facility])[address] [place] [address] MCV (RBC) [Entitic vol] 88.5 fL Normal 82.0-98.0 [facility] Comment on above: Performed By: #### L [id number] ####[facility] ([facility])[address] [place] [address] PLATELETS (10*3/UL) IN BLOOD AUTOMATED COUNT 161 10*3/uL Normal 150-400 [facility] Comment on above: Performed By: #### L [id number] ####[facility] ([facility])[address] [place] [address] RBC (Bld) [#/Vol] 3.40 10*6/uL Low 4.20-5.70 [facility] Comment on above: Performed By: #### L [id number] ####[facility] ([facility])[address] [place] [address] WBC (Bld) [#/Vol] 15.73 10*3/uL High 4.00-10.60 [facility] Comment on above: Performed By: #### L [id number] ####[facility] ([facility])[address] [place] [address] MAGNESIUMon 10-08-2023 Magnesium [Mass/Vol] 2.4 mg/dL Normal 1.9-2.7 [facility] Comment on above: Performed By: #### L [id number] ####[facility] ([facility])[address] [place] [address] PHOSPHORUSon 10-08-2023 Magnesium [Mass/Vol] 1.7 mg/dL Low 2.5-5.0 [facility] Comment on above: Performed By: #### L [id number] ####[facility] ([facility])[address] [place] [address] POCT GLUCOSE METER UNSOLICIT ED RESULTSon 10-08-2023 Glucose [Mass/Vol] 145 mg/dL High 70-105 [facility] Comment on above: Order Comment: Waive d Testing in the ED is performed under the ED CLIA certificate #[id number]. Result Comment: drew banda Performed By: #### L [id number] ####[facility] ([facility])[address] [place] [address] Glucose [Mass/Vol] 157 mg/dL High 70-105 [facility] Comment on above: Order Comment: Waive d Testing in the ED is performed under the ED CLIA certificate #[id number]. Result Comment: [email or web address] Performed By: #### L [id number] ####[facility] ([facility])[address] [place] [address] Glucose [Mass/Vol] 132 mg/dL High 70-105 [facility] Comment on above: Order Comment: Waive d Testing in the ED is performed under the ED CLIA certificate #[id number]. Result Comment: balta tti Performed By: #### L [id number] ####[facility] ([facility])[address] [place] [address] Glucose [Mass/Vol] 200 mg/dL High 70-105 [facility] Comment on above: Order Comment: Waive d Testing in the ED is performed under the ED CLIA certificate #[id number]. Result Comment: agoe tti Performed By: #### L [id number] ####[facility] [place] [address] APTTon 10-07-2023 ACTIVATED PARTIAL THROMBOPLASTIN TIME IN PPP BY COAGULATION ASSAY 63.7 Seconds High 25.0-35.0 [facility] Comment on above: Result Comment: Clin ical significance of the APTT is questionable in the presence of heparin. Performed By: #### L [id number] ####[facility] ([facility])[address] [place] [address] ACTIVATED PARTIAL THROMBOPLASTIN TIME IN PPP BY COAGULATION ASSAY 49.5 Seconds High 25.0-35.0 [facility] Comment on above: Result Comment: Clin ical significance of the APTT is questionable in the presence of heparin. Performed By: #### L [id number] ####[facility] ([facility])[address] [place] [address] ACTIVATED PARTIAL THROMBOPLASTIN TIME IN PPP BY COAGULATION ASSAY 64.0 Seconds High 25.0-35.0 [facility] Comment on above: Result Comment: Clin ical significance of the APTT is questionable in the presence of heparin. Performed By: #### L [id number] ####[facility] ([facility])[address] [place] [address] BASIC METABOLIC PANELon 05-2 Anion gap [Moles/Vol] 15 mmol/L Normal 7-20 [facility] Comment on above: Performed By: #### L [id number] ####[facility] ([facility])[address] [place] [address] Calcium [Mass/Vol] 7.3 mg/dL Low 8.6-10.3 [facility] Comment on above: Performed By: #### L [id number] ####[facility] ([facility])[address] [place] [address] Chloride [Moles/Vol] 95 mmol/L Low 98-107 [facility] Comment on above: Performed By: #### L [id number] ####[facility] ([facility])[address] [place] [address] CO2 [Moles/Vol] 26 mmol/L Normal 21-31 [facility] Comment on above: Performed By: #### L [id number] ####[facility] ([facility])[address] [place] [address] Creatinine [Mass/Vol] 1.09 mg/dL Normal 0.70-1.30 [facility] Comment on above: Performed By: #### L [id number] ####[facility] ([facility])[address] [place] [address] GLOMERULAR FILTRATION RATE ML/MIN/1.73 SQ M.PREDICTED 70.8 mL/min/1.73m*2 Normal >60.0 [facility] Comment on above: Result Comment: [facility]???s estimated glomerular filtration rate (eGFR) will [...] of individuals. Performed By: #### L [id number] ####[facility] ([facility])[address] [place] [address] Glucose [Mass/Vol] 155 mg/dL High 70-100 [facility] Comment on above: Performed By: #### L [id number] ####[facility] ([facility])[address] [place] [address] Potassium [Moles/Vol] 3.3 mmol/L Low 3.5-5.1 [facility] Comment on above: Performed By: #### L [id number] ####[facility] ([facility])[address] [place] [address] Sodium [Moles/Vol] 133 mmol/L Low 136-145 [facility] Comment on above: Performed By: #### L [id number] ####[facility] ([facility])[address] [place] [address] Urea nitrogen [Mass/Vol] 26 mg/dL High 7-25 [facility] Comment on above: Performed By: #### L [id number] ####[facility] ([facility])[address] [place] [address] UREA NITROGEN/CREATININE (MASS RATIO) IN SER/PLAS 23.9 Normal [facility] Comment on above: Performed By: #### L [id number] ####[facility] ([facility])[address] [place] [address] CBCon 10-07-2023 Erythrocyte distribution width (RBC) [Ratio] 13.0 % Normal 11.5-15.0 [facility] Comment on above: Performed By: #### L [id number] ####[facility] ([facility])[address] [place] [address] ERYTHROCYTE MEAN CORPUSCULAR HEMOGLOBIN CONCENTRATION (G/DL) BY AUTOMATED 34.0 g/dL Normal 32.0-35.0 [facility] Comment on above: Performed By: #### L [id number] ####[facility] ([facility])[address] [place] [address] Hematocrit (Bld) [Volume fraction] 28.2 % Low 39.0-55.0 [facility] Comment on above: Performed By: #### L [id number] ####[facility] ([facility])[address] [place] [address] Hemoglobin (Bld) [Mass/Vol] 9.6 g/dL Low 13.0-17.0 [facility] Comment on above: Performed By: #### L [id number] ####[facility] ([facility])[address] [place] [address] MCH (RBC) [Entitic mass] 30.2 pg Normal 27.0-33.0 [facility] Comment on above: Performed By: #### L [id number] ####[facility] ([facility])[address] [place] [address] MCV (RBC) [Entitic vol] 88.7 fL Normal 82.0-98.0 [facility] Comment on above: Performed By: #### L [id number] ####[facility] ([facility])[address] [place] [address] PLATELETS (10*3/UL) IN BLOOD AUTOMATED COUNT 145 10*3/uL Low 150-400 [facility] Comment on above: Performed By: #### L [id number] ####[facility] ([facility])[address] [place] [address] RBC (Bld) [#/Vol] 3.18 10*6/uL Low 4.20-5.70 [facility] Comment on above: Performed By: #### L [id number] ####[facility] ([facility])[address] [place] [address] WBC (Bld) [#/Vol] 16.79 10*3/uL High 4.00-10.60 [facility] Comment on above: Performed By: #### L [id number] ####[facility] ([facility])[address] [place] [address] CT ABDOMEN PELVIS W IV CONTR Donovan 10-07-2023 CT ABDOMEN PELVIS W IV CONTRAST Invalid Interpretation Code [facility] MAGNESIUMon 10-07-2023 Magnesium [Mass/Vol] 2.3 mg/dL Normal 1.9-2.7 [facility] Comment on above: Performed By: #### L [id number] ####[facility] ([facility])[address] [place] [address] PHOSPHORUSon 10-07-2023 Magnesium [Mass/Vol] 2.1 mg/dL Low 2.5-5.0 [facility] Comment on above: Performed By: #### L [id number] ####[facility] ([facility])[address] [place] [address] POCT GLUCOSE METER UNSOLICIT ED RESULTSon 10-07-2023 Glucose [Mass/Vol] 149 mg/dL High 70-105 [facility] Comment on above: Order Comment: Waive d Testing in the ED is performed under the ED CLIA certificate #[id number]. Result Comment: kbar to Performed By: #### L [id number] ####[facility] ([facility])[address] [place] [address] Glucose [Mass/Vol] 185 mg/dL High 70-105 [facility] Comment on above: Order Comment: Waive d Testing in the ED is performed under the ED CLIA certificate #[id number]. Result Comment: kbar to Performed By: #### L [id number] ####[facility] ([facility])[address] [place] [address] Glucose [Mass/Vol] 183 mg/dL High 70-105 [facility] Comment on above: Order Comment: Waive d Testing in the ED is performed under the ED CLIA certificate #[id number]. Result Comment: balta tti Performed By: #### L [id number] ####[facility] ([facility])[address] [facility] [place] [address] TROPONIN Ion 10-07-2023 Troponin I.cardiac [Mass/Vol] 3.05 ng/mL Critically high 0.00-0.04 [facility] Comment on above: Result Comment: M-IA EVIOUS CRITICAL RESULTPrevious result verified on 10/06/2023 1550 on specimen/case [id number] called with component Troponin I for procedure Troponin I with value 5.54 ng/mL. Performed By: #### L [id number] ####[facility] ([facility])[address] [place] [address] APTTon 10-06-2023 ACTIVATED PARTIAL THROMBOPLASTIN TIME IN PPP BY COAGULATION ASSAY 92.3 Seconds High 25.0-35.0 [facility] Comment on above: Order Comment: Check aPTT every 6 hours while on heparin infusion, or per protocol. Result Comment: Clin ical significance of the APTT is questionable in the presence of heparin. Performed By: #### L [id number] ####[facility] ([facility])[address] [facility] [place] [place] [address] ACTIVATED PARTIAL THROMBOPLASTIN TIME IN PPP BY COAGULATION ASSAY 110.1 Seconds High 25.0-35.0 [facility] Comment on above: Order Comment: Check aPTT every 6 hours while on heparin infusion, or per protocol. Result Comment: Clin ical significance of the APTT is questionable in the presence of heparin. Performed By: #### L [id number] ####[facility] ([facility])[address] [place] [address] B-TYPE NATRIURETIC PEPTIDEon 10-06-2023 Natriuretic peptide B (Bld) [Mass/Vol] 1339 pg/mL High 0-100 [facility] Comment on above: Performed By: #### L [id number] ####[facility] ([facility])[address] [place] [address] BASIC METABOLIC PANELon 05-2 Anion gap [Moles/Vol] 14 mmol/L Normal 7-20 [facility] Comment on above: Performed By: #### L [id number] ####[facility] ([facility])[address] [place] [address] Calcium [Mass/Vol] 7.0 mg/dL Low 8.6-10.3 [facility] Comment on above: Performed By: #### L [id number] ####[facility] ([facility])[address] [place] [address] Chloride [Moles/Vol] 99 mmol/L Normal 98-107 [facility] Comment on above: Performed By: #### L [id number] ####[facility] ([facility])[address] [place] [address] CO2 [Moles/Vol] 23 mmol/L Normal 21-31 [facility] Comment on above: Performed By: #### L [id number] ####[facility] ([facility])[address] [place] [address] Creatinine [Mass/Vol] 1.15 mg/dL Normal 0.70-1.30 [facility] Comment on above: Performed By: #### L [id number] ####[facility] ([facility])[address] [place] [address] GLOMERULAR FILTRATION RATE ML/MIN/1.73 SQ M.PREDICTED 66.4 mL/min/1.73m*2 Normal >60.0 [facility] Comment on above: Result Comment: [facility]???s estimated glomerular filtration rate (eGFR) will [...] of individuals. Performed By: #### L [id number] ####[facility] ([facility])[address] [place] [address] Glucose [Mass/Vol] 172 mg/dL High 70-100 [facility] Comment on above: Performed By: #### L [id number] ####[facility] ([facility])[address] [place] [address] Potassium [Moles/Vol] 3.9 mmol/L Normal 3.5-5.1 [facility] Comment on above: Performed By: #### L [id number] ####[facility] ([facility])[address] [place] [address] Sodium [Moles/Vol] 132 mmol/L Low 136-145 [facility] Comment on above: Performed By: #### L [id number] ####[facility] ([facility])[address] [place] [address] Urea nitrogen [Mass/Vol] 23 mg/dL Normal 7-25 [facility] Comment on above: Performed By: #### L [id number] ####[facility] ([facility])[address] [place] [address] UREA NITROGEN/CREATININE (MASS RATIO) IN SER/PLAS 20.0 Normal [facility] Comment on above: Performed By: #### L [id number] ####[facility] ([facility])[address] [place] [address] BLOOD CULTUREon 10-06-2023 Bacteria identified Cx Nom (Bld) No growth at 5 days Normal [facility] Comment on above: Order Comment: From a different site than #1. Performed By: #### L [id number] ####[facility] ([facility])[address] [place] [address] CBCon 10-06-2023 Erythrocyte distribution width (RBC) [Ratio] 12.7 % Normal 11.5-15.0 [facility] Comment on above: Performed By: #### L [id number] ####[facility] ([facility])[address] [place] [address] ERYTHROCYTE MEAN CORPUSCULAR HEMOGLOBIN CONCENTRATION (G/DL) BY AUTOMATED 34.8 g/dL Normal 32.0-35.0 [facility] Comment on above: Performed By: #### L [id number] ####[facility] ([facility])[address] [place] [address] Hematocrit (Bld) [Volume fraction] 26.4 % Low 39.0-55.0 [facility] Comment on above: Performed By: #### L [id number] ####[facility] ([facility])[address] [place] [address] Hemoglobin (Bld) [Mass/Vol] 9.2 g/dL Low 13.0-17.0 [facility] Comment on above: Performed By: #### L [id number] ####[facility] ([facility])[address] [place] [address] MCH (RBC) [Entitic mass] 30.4 pg Normal 27.0-33.0 [facility] Comment on above: Performed By: #### L [id number] ####[facility] ([facility])[address] [place], [place] [address] MCV (RBC) [Entitic vol] 87.1 fL Normal 82.0-98.0 [facility] Comment on above: Performed By: #### L [id number] ####[facility] ([facility])[address] [place] [address] PLATELETS (10*3/UL) IN BLOOD AUTOMATED COUNT 154 10*3/uL Normal 150-400 [facility] Comment on above: Performed By: #### L [id number] ####[facility] ([facility])[address] [place] [address] RBC (Bld) [#/Vol] 3.03 10*6/uL Low 4.20-5.70 [facility] Comment on above: Performed By: #### L [id number] ####[facility] ([facility])[address] [place] [address] WBC (Bld) [#/Vol] 20.14 10*3/uL High 4.00-10.60 [facility] Comment on above: Performed By: #### L [id number] ####[facility] ([facility])[address] [place] [address] COMPREHENSIVE METABOLIC PANE [facility] 10-06-2023 Albumin [Mass/Vol] 2.8 g/dL Low 3.5-5.7 [facility] Comment on above: Performed By: #### L [id number] ####[facility] ([facility])[address] [place] [address] ALP [Catalytic activity/Vol] 65 U/L Normal 34-104 [facility] Comment on above: Performed By: #### L [id number] ####[facility] ([facility])[address] [place] [address] ALT [Catalytic activity/Vol] 61 U/L High 7-52 [facility] Comment on above: Performed By: #### L [id number] ####[facility] ([facility])[address] [place] [address] Anion gap [Moles/Vol] 13 mmol/L Normal 7-20 [facility] Comment on above: Performed By: #### L [id number] ####[facility] ([facility])[address] [place] [address] AST [Catalytic activity/Vol] 69 U/L High 13-39 [facility] Comment on above: Performed By: #### L [id number] ####[facility] ([facility])[address] [place] [address] Bilirubin [Mass/Vol] 0.4 mg/dL Normal 0.3-1.0 [facility] Comment on above: Performed By: #### L [id number] ####[facility] ([facility])[address] [place] [address] Calcium [Mass/Vol] 7.0 mg/dL Low 8.6-10.3 [facility] Comment on above: Performed By: #### L [id number] ####[facility] ([facility])[address] [place] [address] Chloride [Moles/Vol] 102 mmol/L Normal 98-107 [facility] Comment on above: Performed By: #### L [id number] ####[facility] ([facility])[address] [place] [address] CO2 [Moles/Vol] 19 mmol/L Low 21-31 [facility] Comment on above: Performed By: #### L [id number] ####[facility] ([facility])[address] [place] [address] Creatinine [Mass/Vol] 1.39 mg/dL High 0.70-1.30 [facility] Comment on above: Performed By: #### L [id number] ####[facility] ([facility])[address] [place] [address] GLOMERULAR FILTRATION RATE ML/MIN/1.73 SQ M.PREDICTED 52.9 mL/min/1.73m*2 Low >60.0 [facility] Comment on above: Result Comment: [facility]???s estimated glomerular filtration rate (eGFR) will [...] of individuals. Performed By: #### L [id number] ####[facility] ([facility])[address] [place] [address] Glucose [Mass/Vol] 140 mg/dL High 70-100 [facility] Comment on above: Performed By: #### L [id number] ####[facility] ([facility])[address] [place] [address] Potassium [Moles/Vol] 3.8 mmol/L Normal 3.5-5.1 [facility] Comment on above: Performed By: #### L [id number] ####[facility] ([facility])[address] [place] [address] Protein [Mass/Vol] 5.3 g/dL Low 6.0-8.3 [facility] Comment on above: Performed By: #### L [id number] ####[facility] ([facility])[address] [place] [address] Sodium [Moles/Vol] 130 mmol/L Low 136-145 [facility] Comment on above: Performed By: #### L [id number] ####[facility] ([facility])[address] [place] [address] Urea nitrogen [Mass/Vol] 24 mg/dL Normal 7-25 [facility] Comment on above: Performed By: #### L [id number] ####[facility] ([facility])[address] [place] [address] UREA NITROGEN/CREATININE (MASS RATIO) IN SER/PLAS 17.3 [facility] Comment on above: Performed By: #### L [id number] ####[facility] ([facility])[address] [place] [address] CONSULTon 10-06-2023 CONSULT [facility] MAGNESIUMon 10-06-2023 Magnesium [Mass/Vol] 2.3 mg/dL Normal 1.9-2.7 [facility] Comment on above: Performed By: #### L [id number] ####[facility] ([facility])[address] [place] [address] PHOSPHORUSon 10-06-2023 Magnesium [Mass/Vol] 2.2 mg/dL Low 2.5-5.0 [facility] Comment on above: Performed By: #### L [id number] ####[facility] ([facility])[address] [facility] [place] [address] POCT GLUCOSE METER UNSOLICIT ED RESULTSon 10-06-2023 Glucose [Mass/Vol] 177 mg/dL High 70-105 [facility] Comment on above: Order Comment: Waive d Testing in the ED is performed under the ED CLIA certificate #[id number]. Result Comment: balta tti Performed By: #### L [id number] ####[facility] ([facility])[address] [facility] [place] [place] [address] Glucose [Mass/Vol] 178 mg/dL High 70-105 [facility] Comment on above: Order Comment: Waive d Testing in the ED is performed under the ED CLIA certificate #[id number]. Result Comment: kbar to Performed By: #### L [id number] ####[facility] ([facility])[address] [facility] [place] [place] [address] Glucose [Mass/Vol] 180 mg/dL High 70-105 [facility] Comment on above: Order Comment: Waive d Testing in the ED is performed under the ED CLIA certificate #[id number]. Result Comment: kbar to Performed By: #### L [id number] ####[facility] ([facility])[address] [facility] [place] [place] [address] TROPONIN Ion 10-06-2023 Troponin I.cardiac [Mass/Vol] 3.48 ng/mL Critically high 0.00-0.04 [facility] Comment on above: Result Comment: M-IA EVIOUS CRITICAL RESULTPrevious result verified on 10/06/2023 1550 on specimen/case [id number] called with component Troponin I for procedure Troponin I with value 5.54 ng/mL. Performed By: #### L [id number] ####[facility] ([facility])[address] [facility] [place] [place] [address] Troponin I.cardiac [Mass/Vol] 4.94 ng/mL Critically high 0.00-0.04 [facility] Comment on above: Result Comment: M-IA EVIOUS CRITICAL RESULTPrevious result verified on 10/06/2023 1550 on specimen/case [id number] called with component Troponin I for procedure Troponin I with value 5.54 ng/mL. Performed By: #### L [id number] ####[facility] ([facility])[address] [place] [address] Troponin I.cardiac [Mass/Vol] 5.54 ng/mL Critically high 0.00-0.04 [facility] Comment on above: Result Comment: M-IA EVIOUS CRITICAL RESULTPrevious result verified on 10/06/2023 0556 on specimen/case [id number] called with component Troponin I for procedure Troponin I with value 8.76 ng/mL. Performed By: #### L [id number] ####[facility] ([facility])[address] [place] [address] Troponin I.cardiac [Mass/Vol] 8.76 ng/mL Critically high 0.00-0.04 [facility] Comment on above: Result Comment: M-IA EVIOUS CRITICAL RESULTPrevious result verified on 10/06/2023 0015 on specimen/case [id number] called with component Troponin I for procedure Troponin I with value 7.99 ng/mL. Performed By: #### L [id number] ####[facility] ([facility])[address] [place] [address] XR ABDOMEN 1 VIEWon 10-06-19 24 XR ABDOMEN 1 VIEW Normal [facility] XR CHEST 1 VIEWon 10-06-2023 XR CHEST 1 VIEW Normal [facility] 30on 10-05-2023 30 Normal [facility] ANTI-XA (HEPARIN LEVEL)on HEPARIN UNFRACTIONATED (U/ML) IN PPP BY CHROMOGENIC METHOD 0.72 IU/mL High 0.3-0.7 [facility] Comment on above: Order Comment: Check anti-Xa level every 6 hours while on heparin infusion, or per protocol. Result Comment: [place] roxaban and Apixaban will interfere with the anti Xa assay used to monitor UFH and LMWH. Performed By: #### L [id number] ####[facility] ([facility])[address] [place] [address] APTTon 10-05-2023 ACTIVATED PARTIAL THROMBOPLASTIN TIME IN PPP BY COAGULATION ASSAY 39.6 Seconds High 25.0-35.0 [facility] Comment on above: Order Comment: Basel ine aPTT before initiating heparin infusion. Result Comment: Clin ical significance of the APTT is questionable in the presence of heparin. Performed By: #### L [id number] ####[facility] ([facility])[address] [place] [address] ACTIVATED PARTIAL THROMBOPLASTIN TIME IN PPP BY COAGULATION ASSAY 92.3 Seconds High 25.0-35.0 [facility] Comment on above: Order Comment: Check aPTT every 6 hours while on heparin infusion, or per protocol. Result Comment: Clin ical significance of the APTT is questionable in the presence of heparin. Performed By: #### L [id number] ####[facility] ([facility])[address] [place] [address] ARTERIAL BLOOD GAS WITH IONI ZED CALCIUMon 10-05-2023 Base excess Calc (Bld) [Moles/Vol] -15.77823 mmol/L Low -2.0-3.0 [facility] Comment on above: Performed By: #### L [id number] ####[facility] RESPIRATORY [id number] [place] [address] [place] CALCIUM IONIZED (MMOL/L) IN BLOOD 1.09 mmol/L Low 1.15-1.33 [facility] Comment on above: Performed By: #### L [id number] ####[facility] RESPIRATORY [id number] [place] [address] [place] CO2 (Bld) [Partial pressure] 27 mm[Hg] Low 35-48 [facility] Comment on above: Performed By: #### L [id number] ####[facility] RESPIRATORY [id number] [place] [address] [place] HCO3 (Bld) [Moles/Vol] 10.8 mmol/L Low 21.0-28.0 [facility] Comment on above: Performed By: #### L [id number] ####[facility] RESPIRATORY [id number] [place] [address] [place] Oxygen (Bld) [Partial pressure] 81 mm[Hg] Low 83-100 [facility] Comment on above: Performed By: #### L [id number] ####[facility] RESPIRATORY [id number] [place] [address] [facility] OXYGEN SATURATION (%) IN ARTERIAL BLOOD 99.3 % High 94.0-98.0 [facility] Comment on above: Performed By: #### L [id number] ####[facility] RESPIRATORY [id number] [place] [address] [place] pH (Bld) 7.21 [pH] Invalid Interpretation Code 7.35-7.45 [facility] Comment on above: Performed By: #### L [id number] ####[facility] RESPIRATORY [id number] [place] [address] [facility] SOURCE OF OXYGEN Room Air Normal [facility] Comment on above: Performed By: #### L [id number] ####[facility] RESPIRATORY [id number] [place] [address] [place] BILIRUBIN, DIRECTon 10-05-19 Magnesium [Mass/Vol] 0.1 mg/dL Normal 0-0.2 [facility] Comment on above: Performed By: #### L [id number] ####[facility]OSPITAL LAB (BEAKER)[address] [place] [address] Basophils/100 WBC Manual cnt (Bld)on 10-05-2023 Basophils/100 WBC (Bld) 0.0 % Low 0.2-2.0 [facility] CBCon 10-05-2023 Erythrocyte distribution width (RBC) [Ratio] 12.7 % Normal 11.5-15.0 [facility] Comment on above: Performed By: #### L [id number] ####[facility]OSPITAL LAB (BEAKER)[address] [place] [address] ERYTHROCYTE MEAN CORPUSCULAR HEMOGLOBIN CONCENTRATION (G/DL) BY AUTOMATED 35.0 g/dL Normal 32.0-35.0 [facility] Comment on above: Performed By: #### L [id number] ####[facility] ([facility])[address] [place] [address] Hematocrit (Bld) [Volume fraction] 26.3 % Low 39.0-55.0 [facility] Comment on above: Performed By: #### L [id number] ####[facility] ([facility])[address] [place] [address] Hemoglobin (Bld) [Mass/Vol] 9.2 g/dL Low 13.0-17.0 [facility] Comment on above: Performed By: #### L [id number] ####[facility] ([facility])[address] [place] [address] MCH (RBC) [Entitic mass] 30.6 pg Normal 27.0-33.0 [facility] Comment on above: Performed By: #### L [id number] ####[facility] ([facility])[address] [place] [address] MCV (RBC) [Entitic vol] 87.4 fL Normal 82.0-98.0 [facility] Comment on above: Performed By: #### L [id number] ####[facility] ([facility]ES[facility])[address] [place] [address] PLATELETS (10*3/UL) IN BLOOD AUTOMATED COUNT 152 10*3/uL Normal 150-400 [facility] Comment on above: Performed By: #### L [id number] ####[facility] (BEAKER)[address] [address] RBC (Bld) [#/Vol] 3.01 10*6/uL Low 4.20-5.70 [facility] Comment on above: Performed By: #### L [id number] ####[facility] (BEAKER)[address] [address] WBC (Bld) [#/Vol] 20.29 10*3/uL High 4.00-10.60 [facility] Comment on above: Performed By: #### L [id number] ####[facility] ([facility])[address] [place], [place] [address] Erythrocyte distribution width (RBC) [Ratio] 12.7 % Normal 11.5-15.0 [facility] Comment on above: Performed By: #### L [id number] ####[facility] ([facility])[address] [place] [address] ERYTHROCYTE MEAN CORPUSCULAR HEMOGLOBIN CONCENTRATION (G/DL) BY AUTOMATED 33.1 g/dL Normal 32.0-35.0 [facility] Comment on above: Performed By: #### L [id number] ####[facility] ([facility])[address] [place], [place] [address] Hematocrit (Bld) [Volume fraction] 27.2 % Low 39.0-55.0 [facility] Comment on above: Performed By: #### L [id number] ####[facility] ([facility])[address] [place] [address] Hemoglobin (Bld) [Mass/Vol] 9.0 g/dL Low 13.0-17.0 [facility] Comment on above: Performed By: #### L [id number] ####[facility] ([facility])[address] [place], [place] [address] MCH (RBC) [Entitic mass] 30.9 pg Normal 27.0-33.0 [facility] Comment on above: Performed By: #### L [id number] ####[facility] ([facility])[address] [place], [place] [address] MCV (RBC) [Entitic vol] 93.5 fL Normal 82.0-98.0 [facility] Comment on above: Performed By: #### L [id number] ####[facility] ([facility])[address] [place] [address] PLATELETS (10*3/UL) IN BLOOD AUTOMATED COUNT 170 10*3/uL Normal 150-400 [facility] Comment on above: Performed By: #### L [id number] ####[facility] ([facility])[address] [place] [address] RBC (Bld) [#/Vol] 2.91 10*6/uL Low 4.20-5.70 [facility] Comment on above: Performed By: #### L [id number] ####[facility] ([facility])[address] [place] [address] WBC (Bld) [#/Vol] 28.70 10*3/uL High 4.00-10.60 [facility] Comment on above: Performed By: #### L [id number] ####[facility] ([facility])[address] [place] [address] COMPREHENSIVE METABOLIC PANE Gerber 10-05-2023 Albumin [Mass/Vol] 2.8 g/dL Low 3.5-5.7 [facility] Comment on above: Performed By: #### L [id number] ####[facility] ([facility])[address] [place] [address] ALP [Catalytic activity/Vol] 59 U/L Normal 34-104 [facility] Comment on above: Performed By: #### L [id number] ####[facility] ([facility])[address] [place] [address] ALT [Catalytic activity/Vol] 64 U/L High 7-52 [facility] Comment on above: Performed By: #### L [id number] ####[facility] ([facility])[address] [place] [address] Anion gap [Moles/Vol] 13 mmol/L Normal 7-20 [facility] Comment on above: Performed By: #### L [id number] ####[facility] ([facility])[address] [place] [address] AST [Catalytic activity/Vol] 74 U/L High 13-39 [facility] Comment on above: Performed By: #### L [id number] ####[facility] ([facility])[address] [place] [address] Bilirubin [Mass/Vol] 0.3 mg/dL Normal 0.3-1.0 [facility] Comment on above: Performed By: #### L [id number] ####[facility] ([facility])[address] [place] [address] Calcium [Mass/Vol] 7.0 mg/dL Low 8.6-10.3 [facility] Comment on above: Performed By: #### L [id number] ####[facility] ([facility])[address] [place] [address] Chloride [Moles/Vol] 103 mmol/L Normal 98-107 [facility] Comment on above: Performed By: #### L [id number] ####[facility] ([facility])[address] [place] [address] CO2 [Moles/Vol] 18 mmol/L Low 21-31 [facility] Comment on above: Performed By: #### L [id number] ####[facility] ([facility])[address] [place] [address] Creatinine [Mass/Vol] 1.56 mg/dL High 0.70-1.30 [facility] Comment on above: Performed By: #### L [id number] ####[facility] ([facility])[address] [place] [address] GLOMERULAR FILTRATION RATE ML/MIN/1.73 SQ M.PREDICTED 46.0 mL/min/1.73m*2 Low >60.0 [facility] Comment on above: Result Comment: [facility]???s estimated glomerular filtration rate (eGFR) will [...] of individuals. Performed By: #### L [id number] ####[facility] ([facility])[address] [place] [address] Glucose [Mass/Vol] 205 mg/dL High 70-100 [facility] Comment on above: Performed By: #### L [id number] ####[facility] ([facility])[address] [place] [address] Potassium [Moles/Vol] 4.2 mmol/L Normal 3.5-5.1 [facility] Comment on above: Performed By: #### L [id number] ####[facility] ([facility])[address] [place] [address] Protein [Mass/Vol] 5.2 g/dL Low 6.0-8.3 [facility] Comment on above: Performed By: #### L [id number] ####[facility] ([facility])[address] [place] [address] Sodium [Moles/Vol] 130 mmol/L Low 136-145 [facility] Comment on above: Performed By: #### L [id number] ####[facility] ([facility])[address] [place] [address] Urea nitrogen [Mass/Vol] 25 mg/dL Normal 7-25 [facility] Comment on above: Performed By: #### L [id number] ####[facility] ([facility])[address] [place] [address] UREA NITROGEN/CREATININE (MASS RATIO) IN SER/PLAS 16.0 Normal [facility] Comment on above: Performed By: #### L [id number] ####[facility] ([facility])[address] [place] [address] Albumin [Mass/Vol] 3.0 g/dL Low 3.5-5.7 [facility] Comment on above: Performed By: #### L [id number] ####[facility] ([facility])[address] [place] [address] ALP [Catalytic activity/Vol] 66 U/L Normal 34-104 [facility] Comment on above: Performed By: #### L [id number] ####[facility] ([facility])[address] [place] [address] ALT [Catalytic activity/Vol] 72 U/L High 7-52 [facility] Comment on above: Performed By: #### L [id number] ####[facility] ([facility])[address] [place] [address] Anion gap [Moles/Vol] 18 mmol/L Normal 7-20 [facility] Comment on above: Performed By: #### L [id number] ####[facility] ([facility])[address] [place] [address] AST [Catalytic activity/Vol] 113 U/L High 13-39 [facility] Comment on above: Performed By: #### L [id number] ####[facility] ([facility])[address] [place] [address] Bilirubin [Mass/Vol] 0.4 mg/dL Normal 0.3-1.0 [facility] Comment on above: Performed By: #### L [id number] ####[facility] ([facility])[address] [place] [address] Calcium [Mass/Vol] 6.9 mg/dL Low 8.6-10.3 [facility] Comment on above: Performed By: #### L [id number] ####[facility] ([facility])[address] [place] [address] Chloride [Moles/Vol] 103 mmol/L Normal 98-107 [facility] Comment on above: Performed By: #### L [id number] ####[facility] ([facility])[address] [place] [address] CO2 [Moles/Vol] 11 mmol/L Invalid Interpretation Code 21-31 [facility] Comment on above: Performed By: #### L [id number] ####[facility] ([facility])[address] [place] [address] Creatinine [Mass/Vol] 1.84 mg/dL High 0.70-1.30 [facility] Comment on above: Performed By: #### L [id number] ####[facility] ([facility])[address] [place] [address] GLOMERULAR FILTRATION RATE ML/MIN/1.73 SQ M.PREDICTED 37.8 mL/min/1.73m*2 Low >60.0 [facility] Comment on above: Result Comment: [facility]???s estimated glomerular filtration rate (eGFR) will [...] of individuals. Performed By: #### L [id number] ####[facility] ([facility])[address] [place] [address] Glucose [Mass/Vol] 470 mg/dL Critically high 70-100 [facility] Comment on above: Performed By: #### L [id number] ####[facility] ([facility])[address] [place] [address] Potassium [Moles/Vol] 4.4 mmol/L Normal 3.5-5.1 [facility] Comment on above: Performed By: #### L [id number] ####[facility] ([facility])[address] [place] [address] Protein [Mass/Vol] 5.2 g/dL Low 6.0-8.3 [facility] Comment on above: Performed By: #### L [id number] ####[facility] ([facility])[address] [place] [address] Sodium [Moles/Vol] 128 mmol/L Low 136-145 [facility] Comment on above: Performed By: #### L [id number] ####[facility] ([facility])[address] [place] [address] Urea nitrogen [Mass/Vol] 23 mg/dL Normal 7-25 [facility] Comment on above: Performed By: #### L [id number] ####[facility] ([facility])[address] [place] [address] UREA NITROGEN/CREATININE (MASS RATIO) IN SER/PLAS 12.5 Normal [facility] Comment on above: Performed By: #### L [id number] ####[facility] ([facility])[address] [place] [address] CORTISOLon 10-05-2023 CORTISOL (UG/DL) IN SER/PLAS 25.3 ug/dL High 0-9 [facility] Comment on above: Performed By: #### L [id number] ####[facility] ([facility])[address] [place] [address] Eosinophils/100 WBC Manual c nt (Bld)on 10-05-2023 Eosinophils/100 WBC (Bld) 0.0 % Low 0.9-7.0 [facility] Erythrocyte distribution wid th Auto (RBC) [Ratio]on 10-05-2023 Erythrocyte distribution width (RBC) [Ratio] 12.8 % 11.0-15.0 [facility] Estimated glomerular filtrat ion rate (GFR) non- Americanon 10-05-2023 GFR/1.73 sq M.predicted among non-blacks MDRD (S/P/Bld) [Vol rate/Area] 32 mL/min/{1.73_m2} Low >=60 [facility] Globulin Calc (S) [Mass/Vol] on 10-05-2023 Globulin (S) [Mass/Vol] 3.3 g/dL [facility] HPon 10-05-2023 HP Normal [facility] Hematocrit Auto (Bld) [Volum e fraction]on 10-05-2023 Hematocrit (Bld) [Volume fraction] 28.8 % Low 42.0-54.0 [facility] Hemoglobin [Mass/volume] in Bloodon 10-05-2023 Hemoglobin (Bld) [Mass/Vol] 9.0 g/dL Low 14.0-18.0 [facility] LACTIC ACID WITH 4 HOUR REFL EXon 10-05-2023 LACTATE (MMOL/L) IN SER/PLAS 1.6 mmol/L Normal 0.5-2.2 [facility] Comment on above: Performed By: #### L [id number] ####[facility] ([facility])[address] [place] [address] LACTATE (MMOL/L) IN SER/PLAS 4.0 mmol/L Critically high 0.5-2.2 [facility] Comment on above: Result Comment: Prev ious result verified on 10/05/2023 1412 on specimen/case [id number] called with component Lactate blood venous for procedure Lactic acid, venous, whole blood with value 7.7 mmol/L. Performed By: #### L [id number] ####[facility] ([facility])[address] [place] [address] LACTATE (MMOL/L) IN SER/PLAS 7.7 mmol/L Critically high 0.5-2.2 [facility] Comment on above: Performed By: #### L [id number] ####[facility] ([facility])[address] [place] [address] Lab Reportson 10-05-2023 Lab Reports [id number] Normal [facility] Laboratory - Chemistry and C hemistry - challengeon 10-05-2023 HCO3 (Bld) [Moles/Vol] 9.1 mmol/L Low 22.0-26.0 [facility] Natriuretic peptide B (Bld) [Mass/Vol] 10050.0 pg/mL High <=1800.0 [facility] Comment on above: RESULTS CALLED TO [Zulema MURRAY/RN]@BY Kaitlin Merchant [id number] Albumin [Mass/Vol] 2.2 g/dL Low 3.4-5.0 [facility] ALP [Catalytic activity/Vol] 58 U/L 46-116 [facility] ALT [Catalytic activity/Vol] U/L Low 16-63 [facility] AST [Catalytic activity/Vol] 18 U/L 15-37 [facility] Bilirubin [Mass/Vol] 0.4 mg/dL 0.2-1.0 [facility] Calcium [Mass/Vol] 7.9 mg/dL Low 8.5-10.1 [facility] Chloride [Moles/Vol] 101 mmol/L 98-107 [facility] CO2 [Moles/Vol] 17.1 mmol/L Low 21.0-32.0 [facility] Creatinine [Mass/Vol] 2.02 mg/dL High 0.70-1.30 [facility] GFR/1.73 sq M.predicted MDRD (S/P/Bld) [Vol rate/Area] 39 mL/min/{1.73_m2} Low >=60 [facility] Glucose [Mass/Vol] 290 mg/dL High 74-106 [facility] Lactate [Moles/Vol] 7.3 mmol/L High 0.4-2.0 [facility] Comment on above: RESULTS CALLED TO STEVE GROSS RN @BY Beatriz Rothman at 0527 Magnesium [Mass/Vol] 1.4 mg/dL Low 1.8-2.4 [facility] Potassium [Moles/Vol] 3.9 mmol/L 3.5-5.1 [facility] Protein [Mass/Vol] 5.5 g/dL Low 6.4-8.2 [facility] Sodium [Moles/Vol] 131 mmol/L Low 136-145 [facility] Urea nitrogen [Mass/Vol] 19.0 mg/dL High 7.0-18.0 [facility] Urea nitrogen/Creatinine [Mass ratio] 9.4 mg/mg [facility] Laboratory - Hematology and Cell countson 10-05-2023 Band form neutrophils/100 WBC (Bld) 9.0 % High 0-5 [facility] Lymphocytes/100 WBC (Bld) 4.0 % Low 20.5-60.0 [facility] Monocytes/100 WBC (Bld) 3.0 % 1.7-12.0 [facility] Leukocytes [#/volume] correc seth for nucleated erythrocytes in Blood by Automated counon 10-05-2023 WBC corrected for nucl RBC Auto (Bld) [#/Vol] 25.1 10 3/uL High 4.0-11.0 [facility] MAGNESIUMon 10-05-2023 Magnesium [Mass/Vol] 1.3 mg/dL Low 1.9-2.7 [facility] Comment on above: Performed By: #### L [id number] ####[facility] ([facility])[address] [place] [address] MCH Auto (RBC) [Entitic mass ]on 10-05-2023 MCH (RBC) [Entitic mass] 30.6 pg 25.9-34.0 [facility] MCHC Auto (RBC) [Mass/Vol]on 10-05-2023 MCHC (RBC) [Mass/Vol] 31.3 g/dL 29.9-35.2 [facility] MCV Auto (RBC) [Entitic vol] on 10-05-2023 MCV (RBC) [Entitic vol] 98.0 fL High 80.0-94.0 [facility] Myelocytes/100 WBC Manual cn t (Bld)on 10-05-2023 Myelocytes/100 WBC (Bld) 2.0 % [facility] No Panel Informationon 10-04 Lonnie Test Positive POSITIVE [facility] Arterial Blood Base Excess -21.5 mmol/L Low <2.0-2.0 [facility] Arterial Blood Oxygen Saturation 97.7 % [facility] Arterial Blood Partial Pressure CO2 33.0 mm[Hg] Low 35.0-45.0 [facility] Arterial Blood Partial Pressure O2 106.0 mm[Hg] High 80.0-100.0 [facility] Arterial Blood pH 7.047 Low 7.350-7.450 [facility] Comment on above: RESULTS CALLED TO [Efra LANDA/RN]@BY Kaitlin Merchant [id number] Blood Gas Liter Flow 3 [facility] Blood Gas Sample Site ART. LINE [facility] Oxygen Delivery Device NASAL CANNULA [facility] Venous Blood Partial Pressure CO2 35.5 mm[Hg] Low 40.0-52.0 [facility] Venous Blood pH 7.044 Low 7.330-7.430 [facility] Absolute Basophils (Manual) 0.00 10 3/uL 0.00-0.10 [facility] Band Neutrophils # (Manual) 2.3 10 3/uL High 0.0-0.3 [facility] C-Reactive Protein, Quantitative 20.88 mg/dL High <=0.50 [facility] Eosinophils # (Manual) 0.00 10 3/uL 0.00-0.70 [facility] Lymphocytes # (Manual) 1.00 10 3/uL Low 1.20-3.80 [facility] Monocytes # (Manual) 0.75 10 3/uL 0.30-0.80 [facility] Myelocytes # (Manual) 0.50 [facility] Reactive Lymphocytes 0.00 [facility] Segmented Neutrophils # (Manual) 20.83 10 3/uL High 1.4-6.5 [facility] Troponin I High Sensitivity 993.4 pg/mL High 4.0-76.1 [facility] Comment on above: RESULTS CALLED TO [Zulema MURRAY/YOCASTA]@BY Kaitlin Merchant [id number] POINTS HAVE BEEN ESTABLISHED BASED ON THE [...] 10-05-2023 Magnesium [Mass/Vol] 3.8 mg/dL Normal 2.5-5.0 [facility] Comment on above: Performed By: #### L [id number] ####[facility] ([facility])[address] [place] [address] POCT GLUCOSE METER UNSOLICIT ED RESULTSon 10-05-2023 Glucose [Mass/Vol] 204 mg/dL High 70-105 [facility] Comment on above: Order Comment: Waive d Testing in the ED is performed under the ED CLIA certificate #[id number]. Result Comment: [email or web address] Performed By: #### L [id number] ####[facility] ([facility])[address] [place] [address] Glucose [Mass/Vol] 378 mg/dL High 70-105 [facility] Comment on above: Order Comment: Waive d Testing in the ED is performed under the ED CLIA certificate #[id number]. Result Comment: [email or web address] Performed By: #### L [id number] ####[facility] ([employer])[address] [place] [address] PROTIME-INRon 10-05-2023 INR IN PPP BY COAGULATION ASSAY 2.15 High 0.90-1.10 [facility] Comment on above: Result Comment: ACCC [...] CHEST 1995;[id number]. Performed By: #### L [id number] ####[facility] ([employer])[address] [place] [address] PROTHROMBIN TIME (PT) IN PPP BY COAGULATION ASSAY 23.6 Seconds High 12.3-14.8 [facility] Comment on above: Performed By: #### L [id number] ####[facility] ([employer])[address] [place] [address] Platelet mean volume Auto (B ld) [Entitic vol]on 10-05-2023 Platelet mean volume (Bld) [Entitic vol] 10.1 fL 9.5-13.5 [facility] Platelets Auto (Bld) [#/Vol] on 10-05-2023 Platelets (Bld) [#/Vol] 175 10 3/uL 150-450 [facility] RBC Auto (Bld) [#/Vol]on RBC (Bld) [#/Vol] 2.94 10 6/uL Low 4.70-6.10 [facility] Segmented neutrophils/100 WB C Manual cnt (Bld)on 10-05-2023 Segmented neutrophils/100 WBC (Bld) 83.0 % [facility] Serum or plasma albumin/glob ulin mass ratioon 10-05-2023 Albumin/Globulin [Mass ratio] 0.7 {ratio} [facility] Serum or plasma anion gap de terminationon 10-05-2023 Anion gap [Moles/Vol] 16.8 [facility] Ion 10-05-2023 Troponin I.cardiac [Mass/Vol] 7.99 ng/mL Critically high 0.00-0.04 [facility] Comment on above: Result Comment: M-IA EVIOUS CRITICAL RESULTPrevious result verified on 10/05/2023 1815 on specimen/case [id number] called with component Troponin I for procedure Troponin I with value 4.24 ng/mL. Performed By: #### L [id number] ####[facility] ([facility]ER)[address] [place] [address] Troponin I.cardiac [Mass/Vol] 4.24 ng/mL Critically high 0.00-0.04 [facility] Comment on above: Result Comment: M-TR OPONIN INITIAL CRITICAL HIGH; RESPUN AND RETESTED Performed By: #### L [id number] ####[facility] ([facility]ER)[address] [place] [address] TSH3 REFLEX TO FT4on 024 THYROTROPIN (MIU/L) IN SER/PLAS BY DETECTION LIMIT <= 0.05 MIU/L 1.36 mIU/L Normal 0.34-5.60 [facility] Comment on above: Performed By: #### L [id number] ####[facility] ([facility])[address] [place] [address] URINALYSISon 10-05-2023 BILIRUBIN, TOTAL PRESENCE IN URINE Negative Normal Negative [facility] Comment on above: Performed By: #### L [id number] ####[facility] ([facility])[address] [place] [address] Clarity (U) Cloudy Abnormal Clear [facility] Comment on above: Performed By: #### L [id number] ####[facility] ([facility])[address] [place] [address] Color (U) Yellow Normal Yellow [facility] Comment on above: Performed By: #### L [id number] ####[facility] ([facility])[address] [place] [address] Glucose (U) [Mass/Vol] mg/dL Abnormal Negative [facility] Comment on above: Performed By: #### L [id number] ####[facility] ([facility])[address] [place] [address] HEMOGLOBIN PRESENCE IN URINE Large Abnormal Negative [facility] Comment on above: Performed By: #### L [id number] ####[facility] ([facility])[address] [place] [address] Ketones Ql (U) Negative Normal Negative [facility] Comment on above: Performed By: #### L [id number] ####[facility] ([facility])[address] [place] [address] LEUKOCYTE ESTERASE PRESENCE IN URINE BY TEST STRIP Small Abnormal Negative [facility] Comment on above: Performed By: #### L [id number] ####[facility] ([facility])[address] [place] [address] NITRITE PRESENCE IN URINE Negative Normal Negative [facility] Comment on above: Performed By: #### L [id number] ####[facility] ([facility]AKER)[address] [place] [address] pH (U) 5.0 [pH] Normal 5.0-8.0 [facility] Comment on above: Performed By: #### L [id number] ####[facility] (BEAKER)[address] [place] [address] Protein (U) [Mass/Vol] 30 mg/dL Abnormal [facility] Comment on above: Performed By: #### L [id number] ####[facility] ([facility] [place] [address] Specific gravity (U) [Rel density] 1.018 Normal 1.015-1.020 [facility] Comment on above: Performed By: #### L [id number] ####[facility] SERVICES LAB ([facility])[address] [place] [address] URINALYSIS MICROSCOPICon CASTS IN URINE Present Abnormal None Seen [facility] Comment on above: Performed By: #### L [id number] ####[facility] ([facility])[address] [place] [address] CRYSTALS IN URINE Normal [facility] Comment on above: Performed By: #### L [id number] ####[facility] (BEAKER)[address] [place] [address] GRANULAR CASTS (#/LPF) IN URINE 11 LPF High <1 [facility] Comment on above: Performed By: #### L [id number] ####[facility] ([facility])[address] [place] [address] MUCUS (#/HPF) IN URINE SEDIMENT Few Normal None Seen, Occasional, Few [facility] Comment on above: Performed By: #### L [id number] ####[facility] (BEAKER)[address] [place] [address] RBC (#/HPF) IN URINE SEDIMENT 3-5 Abnormal None Seen [facility] Comment on above: Performed By: #### L [id number] ####[facility] (BEAKER)[address] [place] [address] SQUAMOUS EPITHELIAL CELLS (#/HPF) IN URINE SEDIMENT None Seen Normal None Seen, Occasional [facility] Comment on above: Performed By: #### L [id number] ####[facility] (BEAKER)[address] [place] [address] WBC (LEUKOCYTE) (#/HPF) IN URINE SEDIMENT 11-20 Abnormal None Seen [facility] Comment on above: Performed By: #### L [id number] ####[facility] (BEAKER)[address] [place] [address] YEAST, BUDDING (#/HPF) IN URINE Occasional Abnormal None Seen [facility] Comment on above: Performed By: #### L [id number] ####[facility] (BEAKER)[address] [place] [address] Basophils Auto (Bld) [#/Vol] on 10-04-2023 Basophils (Bld) [#/Vol] 0.0 10 3/uL 0.0-0.1 [facility] Basophils/100 WBC Auto (Bld) on 10-04-2023 Basophils/100 WBC (Bld) 0.1 % Low 0.2-2.0 [facility] Eosinophils/100 WBC Auto (Bl d)on 10-04-2023 Eosinophils/100 WBC (Bld) 0.0 % Low 0.9-7.0 [facility] Erythrocyte distribution wid th Auto (RBC) [Ratio]on 10-04-2023 Erythrocyte distribution width (RBC) [Ratio] 12.2 % 11.0-15.0 [facility] Estimated glomerular filtrat ion rate (GFR) non- Americanon 10-04-2023 GFR/1.73 sq M.predicted among non-blacks MDRD (S/P/Bld) [Vol rate/Area] mL/min/{1.73_m2} >=60 [facility] Hematocrit Auto (Bld) [Volum e fraction]on 10-04-2023 Hematocrit (Bld) [Volume fraction] 32.9 % Low 42.0-54.0 [facility] Hemoglobin [Mass/volume] in Bloodon 10-04-2023 Hemoglobin (Bld) [Mass/Vol] 10.7 g/dL Low 14.0-18.0 [facility] Laboratory - Chemistry and C hemistry - challengeon 10-04-2023 Lactate [Moles/Vol] 4.4 mmol/L High 0.4-2.0 [facility] Comment on above: RESULTS CALLED TO JULIANO VALDEZ RN @BY Beatriz Rothman at 2037 Bilirubin Ql (U) Negative NEGATIVE [facility] Glucose (U) [Mass/Vol] 100 mg/dL Abnormal NEGATIVE Fi [facility] Ketones Ql (U) Negative NEGATIVE [facility] pH (U) 5.5 [pH] 5.0-9.0 [facility] Specific gravity (U) [Rel density] <=1.005 Abnormal 1.005-1.025 [facility] Urobilinogen Qn (U) 0.2 {Wilson'U}/dL 0.2-1.0 [facility] Calcium [Mass/Vol] 9.1 mg/dL 8.5-10.1 [facility] Chloride [Moles/Vol] 96 mmol/L Low 98-107 [facility] CO2 [Moles/Vol] 23.3 mmol/L 21.0-32.0 [facility] Creatinine [Mass/Vol] 1.14 mg/dL 0.70-1.30 [facility] GFR/1.73 sq M.predicted MDRD (S/P/Bld) [Vol rate/Area] mL/min/{1.73_m2} >=60 [facility] Glucose [Mass/Vol] 255 mg/dL High 74-106 [facility] Natriuretic peptide B (Bld) [Mass/Vol] 1213.0 pg/mL <=1800.0 [facility] Potassium [Moles/Vol] 4.4 mmol/L 3.5-5.1 [facility] Sodium [Moles/Vol] 129 mmol/L Low 136-145 [facility] Urea nitrogen [Mass/Vol] 14.0 mg/dL 7.0-18.0 [facility] Urea nitrogen/Creatinine [Mass ratio] 12.3 mg/mg [facility] Laboratory - Hematology and Cell countson 10-04-2023 Immature granulocytes/100 WBC (Bld) 1.3 % High 0.0-0.5 [facility] Laboratory - Microbiology an d Antimicrobial susceptibilityOrdered By: Allen Grey on 10-04-2023 Bacteria identified Cx Nom (U) [facility] Laboratory - Microbiology an d Antimicrobial susceptibilityon 10-04-2023 SARS-CoV-2 (COVID-19) RNA RAYMON+probe Ql (Unsp spec) Negative NEGATIVE [facility] Comment on above: This test [...] inform ationon 10-04-2023 Appearance (U) CLEAR CLEAR [facility] Color (U) YELLOW YELLOW [facility] Laboratory - Urinalysison Leukocyte esterase Test strip Ql (U) Negative NEGATIVE [facility] Mucus Ql (Urine sed) NONE SEEN NONE SEEN [facility] Nitrite Ql (U) Negative NEGATIVE [facility] Protein Ql (U) 30 mg/dL Abnormal NEG/TRACE [facility] Leukocytes [#/volume] correc seth for nucleated erythrocytes in Blood by Automated counon 10-04-2023 WBC corrected for nucl RBC Auto (Bld) [#/Vol] 16.6 10 3/uL High 4.0-11.0 [facility] Lymphocytes Auto (Bld) [#/Vo l]on 10-04-2023 Lymphocytes (Bld) [#/Vol] 0.9 10 3/uL Low 1.2-3.8 [facility] Lymphocytes/100 WBC Auto (Bl d)on 10-04-2023 Lymphocytes/100 WBC (Bld) 5.2 % Low 20.5-60.0 [facility] MCH Auto (RBC) [Entitic mass ]on 10-04-2023 MCH (RBC) [Entitic mass] 30.3 pg 25.9-34.0 [facility] MCHC Auto (RBC) [Mass/Vol]on 10-04-2023 MCHC (RBC) [Mass/Vol] 32.5 g/dL 29.9-35.2 [facility] MCV Auto (RBC) [Entitic vol] on 10-04-2023 MCV (RBC) [Entitic vol] 93.2 fL 80.0-94.0 [facility] Monocytes Auto (Bld) [#/Vol] on 10-04-2023 Monocytes (Bld) [#/Vol] 1.4 10 3/uL High 0.3-0.8 [facility] Monocytes/100 WBC Auto (Bld) on 10-04-2023 Monocytes/100 WBC (Bld) 8.3 % 1.7-12.0 [facility] Neutrophils Auto (Bld) [#/Vo l]on 10-04-2023 Neutrophils (Bld) [#/Vol] 14.1 10 3/uL High 1.4-6.5 [facility] Neutrophils/100 WBC Auto (Bl d)on 10-04-2023 Neutrophils/100 WBC (Bld) 85.1 % High 43.0-75.0 [facility] No Panel Informationon 10-03 Urine Bacteria MODERATE #/HPF Abnormal NONE SEEN [facility] Urine Culture Reflexed YES [facility] Urine Occult Blood SMALL Abnormal NEGATIVE [facility] Urine Other Casts NONE SEEN #/LPF NONE SEEN [facility] Urine Other Crystals None Seen #/HPF None Seen [facility] Urine RBC 5-10 #/HPF Abnormal 0-2 [facility] Urine Squamous Epithelial Cells MODERATE #/LPF Abnormal NONE/RARE [facility] Urine WBC 5-10 #/HPF Abnormal NONE SEEN [facility] Bedside Influenza Type A Antigen Negative [facility] Comment on above: Negative for Flu A p rotein antigen. Infection due to Flu Acannot be ruled out. Flu A antigen in the sample may bebelow the detection limit of the test. Bedside Influenza Type B Antigen Negative [facility] Comment on above: Negative for Flu B p rotein antigen. Infection due to Flu Bcannot be ruled out. Flu B antigen in the sample may bebelow the detection limit of the test. Eosinophils # (Auto) 0.0 10 3/uL 0.0-0.7 [facility] Immature Granulocyte # (Auto) 0.21 10 3/uL High 0.00-0.03 [facility] Troponin I High Sensitivity 9.3 pg/mL 4.0-76.1 [facility] Comment on above: CUT-OFF POINTS [...] Allen Grey on 10-04-2023 Blood Culture 2 [facility] Blood Culture 1 [facility] Platelet mean volume Auto (B ld) [Entitic vol]on 10-04-2023 Platelet mean volume (Bld) [Entitic vol] 9.5 fL 9.5-13.5 [facility] Platelets Auto (Bld) [#/Vol] on 10-04-2023 Platelets (Bld) [#/Vol] 159 10 3/uL 150-450 [facility] RBC Auto (Bld) [#/Vol]on RBC (Bld) [#/Vol] 3.53 10 6/uL Low 4.70-6.10 [facility] Serum or plasma anion gap de terminationon 10-04-2023 Anion gap [Moles/Vol] 14.1 mmol/L [facility] Serum procalcitonin measurem enton 10-04-2023 Procalcitonin [Mass/Vol] 0.23 ng/mL 0.00-0.50 [facility] Clinical Supporton Clinical Support Normal [facility] Follow-Upon 09-27-2023 Follow-Up Normal [facility] Follow-Upon 09-20-2023 Follow-Up Normal [facility] 36on 09-19-2023 36 Normal [facility] Telephoneon 09-19-2023 Telephone Normal [facility] DSon 09-12-2023 DS Normal [facility] NURSNOTEon 09-12-2023 NURSNOTE Normal [facility] 30on 09-11-2023 30 Normal [facility] 30 Normal [facility] BASIC METABOLIC PANELon 08-14 Anion gap [Moles/Vol] 12 mmol/L Normal 7-20 [facility] Comment on above: Performed By: #### L [id number] ####[facility] (BEAKER)[address] [place] [address] Calcium [Mass/Vol] 8.4 mg/dL Low 8.6-10.3 [facility] Comment on above: Performed By: #### L [id number] ####[facility] (BEAKER)[address] [place] [address] Chloride [Moles/Vol] 102 mmol/L Normal 98-107 [facility] Comment on above: Performed By: #### L [id number] ####[facility] (BEAKER)[address] [place] [address] CO2 [Moles/Vol] 24 mmol/L Normal 21-31 [facility] Comment on above: Performed By: #### L [id number] ####[facility] (BEAKER)[address] [place] [address] Creatinine [Mass/Vol] 0.94 mg/dL Normal 0.70-1.30 [facility] Comment on above: Performed By: #### L [id number] ####[facility] ([facility])[address] [place] [address] GLOMERULAR FILTRATION RATE ML/MIN/1.73 SQ M.PREDICTED 84.5 mL/min/1.73m*2 Normal >60.0 [facility] Comment on above: Result Comment: The [facility]???s estimated glomerular filtration rate (eGFR) will [...] of individuals. Performed By: #### L [id number] ####[facility] ([facility])[address] [place] [address] Glucose [Mass/Vol] 266 mg/dL High 70-100 [facility] Comment on above: Performed By: #### L [id number] ####[facility] ([facility])[address] [place] [address] Potassium [Moles/Vol] 4.9 mmol/L Normal 3.5-5.1 [facility] Comment on above: Performed By: #### L [id number] ####[facility] ([facility])[address] [place] [address] Sodium [Moles/Vol] 133 mmol/L Low 136-145 [facility] Comment on above: Performed By: #### L [id number] ####[facility] ([facility])[address] [place] [address] Urea nitrogen [Mass/Vol] 17 mg/dL Normal 7-25 [facility] Comment on above: Performed By: #### L [id number] ####[facility] ([facility])[address] [place] [address] UREA NITROGEN/CREATININE (MASS RATIO) IN SER/PLAS 18.1 Normal [facility] Comment on above: Performed By: #### L [id number] ####[facility] ([facility])[address] [place] [address] CBCon 09-11-2023 Erythrocyte distribution width (RBC) [Ratio] 12.2 % Normal 11.5-15.0 [facility] Comment on above: Performed By: #### L [id number] ####[facility] ([facility])[address] [place] [address] ERYTHROCYTE MEAN CORPUSCULAR HEMOGLOBIN CONCENTRATION (G/DL) BY AUTOMATED 33.4 g/dL Normal 32.0-35.0 [facility] Comment on above: Performed By: #### L [id number] ####[facility] ([facility])[address] [place] [address] Hematocrit (Bld) [Volume fraction] 30.2 % Low 39.0-55.0 [facility] Comment on above: Performed By: #### L [id number] ####[facility] ([facility])[address] [place] [address] Hemoglobin (Bld) [Mass/Vol] 10.1 g/dL Low 13.0-17.0 [facility] Comment on above: Performed By: #### L [id number] ####[facility] ([facility])[address] [place] [address] MCH (RBC) [Entitic mass] 30.8 pg Normal 27.0-33.0 [facility] Comment on above: Performed By: #### L [id number] ####[facility] ([facility])[address] [place] [address] MCV (RBC) [Entitic vol] 92.1 fL Normal 82.0-98.0 [facility] Comment on above: Performed By: #### L [id number] ####[facility] ([facility])[address] [place] [address] PLATELETS (10*3/UL) IN BLOOD AUTOMATED COUNT 159 10*3/uL Normal 150-400 [facility] Comment on above: Performed By: #### L [id number] ####[facility] (BEAKER)[address] [place] [address] RBC (Bld) [#/Vol] 3.28 10*6/uL Low 4.20-5.70 [facility] Comment on above: Performed By: #### L [id number] ####[facility] (BEAKER)[address] [place] [address] WBC (Bld) [#/Vol] 8.22 10*3/uL Normal 4.00-10.60 [facility] Comment on above: Performed By: #### L [id number] ####[facility] ([facility])[address] [place] [address] [id number] 09-10-2023 [id number] Normal [facility] ANESon 09-10-2023 ANES Normal [facility] ANES Normal [facility] HISTOLOGY - TISSUE EXAMon LAB AP CASE REPORT Normal [facility] Comment on above: Order Comment: Pre-o p diagnosis:Severe claudication (CMS/HCC) [I73.9]Encounter for pre-operative examination [Z01.818]Critical limb ischemia of right lower extremity with rest pain (CMS/HCC) [I70.221] Result Comment: Surg ical Pathology Case: [id number] Provider: Epi Shrestha MD Collected: 09/10/2023 1749Ordering Location: [facility] Main Operating Room Received: 09/10/2023 1848Pathologist: BRANDEE Seniorpecimen: PLAQUE- RIGHT COMMON FEMORAL ARTERY Performed By: #### L [id number] ####[facility] ([facility])[address] [place] [address] LAB AP CLINICAL INFORMATION Normal [facility] Comment on above: Order Comment: Pre-o p diagnosis:Severe claudication (CMS/HCC) [I73.9]Encounter for pre-operative examination [Z01.818]Critical limb ischemia of right lower extremity with rest pain (CMS/HCC) [I70.221] Result Comment: Post -Op BecvxmcsoE42.9 - Severe claudication (CMS/HCC) [ICD-10-CM]Z01.818 - Encounter for pre-operative examination [ICD-10-CM]I70.221 - Critical limb ischemia of right lower extremity with rest pain (CMS/HCC) [ICD-10-CM] Performed By: #### L [id number] ####[facility] ([facility])[address] [place] [address] LAB AP GROSS DESCRIPTION [facility] Comment on above: Order Comment: Pre-o [...] cm. Sectioning reveals lynn-yellow, calcified cut surfaces. Train Director sections are submitted in 1 cassette, following decalcification.Qing Alejandro, Pathologists' Technical Sales Engineer Nicole Farias, Pathologists' Technical Sales Engineer Performed By: #### L [id number] ####[facility] ([facility])[address] [place] [address] LAB AP MICROSCOPIC DESCRIPTION Microscopic examination performed. [facility] Comment on above: Order Comment: Pre-o p diagnosis:Severe claudication (CMS/HCC) [I73.9]Encounter for pre-operative examination [Z01.818]Critical limb ischemia of right lower extremity with rest pain (CMS/HCC) [I70.221] Performed By: #### L [id number] ####[facility] ([facility])[address] [place] [address] LAB AP REPORT FINAL DIAGNOSIS NARRATIVE [facility] Comment on above: Order Comment: Pre-o p diagnosis:Severe claudication (CMS/HCC) [I73.9]Encounter for pre-operative examination [Z01.818]Critical limb ischemia of right lower extremity with rest pain (CMS/HCC) [I70.221] Result Comment: Righ t common femoral artery, endarterectomy:Atheromatous plaque with calcification. Performed By: #### L [id number] ####[facility] (BEAKER)[address] [place] [address] HPon 09-10-2023 HP Normal [facility] MRSA/MSSA DNA NASALon 2023 MRSA DNA Negative Normal Negative [facility] Comment on above: Order Comment: Testi [...] preclude nasal colonization. Performed By: #### L [id number] ####[facility] (BEAKER)[address] [place] [address] MSSA DNA Negative Normal Negative [facility] Comment on above: Order Comment: Testi [...] preclude nasal colonization. Performed By: #### L [id number] ####[facility] (BEAKER)[address] [place] [address] OPNOTEon 09-10-2023 OPNOTE Normal [facility] POCT GLUCOSE METER UNSOLICIT ED RESULTSon 09-10-2023 Glucose [Mass/Vol] 177 mg/dL High 70-105 [facility] Comment on above: Order Comment: Waive d Testing in the ED is performed under the ED CLIA certificate #[id number]. Result Comment: aepp ink Performed By: #### L [id number] ####[facility] (BEAKER)[address] [place] [address] TYPE AND SCREENon 09-10-2023 AB SCREEN Negative Normal [facility] Comment on above: Performed By: #### L [id number] ####[facility] BLOOD BANK, ABO group Nom (Bld) A [facility] Comment on above: Performed By: #### L [id number] ####[facility] BLOOD BANK, RH TYPE IN BLOOD Positive Normal [facility] Comment on above: Performed By: #### L [id number] ####[facility] BLOOD BANK, [id number] 09-03-2023 [id number] Normal [facility] Activated partial thrombopla stin time (aPTT) in platelet poor plasma by coagulation aon 09-03-2023 aPTT Coag (PPP) [Time] 28.1 s 22.3-36.2 [facility] Basophils Auto (Bld) [#/Vol] on 09-03-2023 Basophils (Bld) [#/Vol] 0.0 10 3/uL 0.0-0.1 [facility] Basophils/100 WBC Auto (Bld) on 09-03-2023 Basophils/100 WBC (Bld) 0.1 % Low 0.2-2.0 [facility] Eosinophils/100 WBC Auto (Bl d)on 09-03-2023 Eosinophils/100 WBC (Bld) 0.9 % 0.9-7.0 [facility] Erythrocyte distribution wid th Auto (RBC) [Ratio]on 09-03-2023 Erythrocyte distribution width (RBC) [Ratio] 12.4 % 11.0-15.0 [facility] Estimated glomerular filtrat ion rate (GFR) non- Americanon 09-03-2023 GFR/1.73 sq M.predicted among non-blacks MDRD (S/P/Bld) [Vol rate/Area] 41 mL/min/{1.73_m2} Low >=60 [facility] Hematocrit Auto (Bld) [Volum e fraction]on 09-03-2023 Hematocrit (Bld) [Volume fraction] 32.4 % Low 42.0-54.0 [facility] Hemoglobin [Mass/volume] in Bloodon 09-03-2023 Hemoglobin (Bld) [Mass/Vol] 10.8 g/dL Low 14.0-18.0 [facility] INR in Platelet poor plasma by Coagulation assayon 09-03-2023 INR Coag (PPP) [Relative time] 1.06 {INR} [facility] Comment on above: DESIRED INR:2.0-3.0 CONDITIONS NOT LISTED BELOW2.5-3.5 FOR PROSTHETIC HEART VALVE REPLACEMENT2.5-3.5 RECURRENT THROMBOSIS Laboratory - Chemistry and C hemistry - challengeon 09-03-2023 Calcium [Mass/Vol] 9.0 mg/dL 8.5-10.1 [facility] Chloride [Moles/Vol] 103 mmol/L 98-107 [facility] CO2 [Moles/Vol] 25.5 mmol/L 21.0-32.0 [facility] Creatinine [Mass/Vol] 1.63 mg/dL High 0.70-1.30 [facility] GFR/1.73 sq M.predicted MDRD (S/P/Bld) [Vol rate/Area] 50 mL/min/{1.73_m2} Low >=60 [facility] Glucose [Mass/Vol] 228 mg/dL High 74-106 [facility] Potassium [Moles/Vol] 4.8 mmol/L 3.5-5.1 [facility] Sodium [Moles/Vol] 139 mmol/L 136-145 [facility] Urea nitrogen [Mass/Vol] 20.0 mg/dL High 7.0-18.0 [facility] Urea nitrogen/Creatinine [Mass ratio] 12.3 mg/mg [facility] Laboratory - Hematology and Cell countson 09-03-2023 Immature granulocytes/100 WBC (Bld) 0.3 % 0.0-0.5 [facility] Leukocytes [#/volume] correc seth for nucleated erythrocytes in Blood by Automated counon 09-03-2023 WBC corrected for nucl RBC Auto (Bld) [#/Vol] 7.5 10 3/uL 4.0-11.0 [facility] Lymphocytes Auto (Bld) [#/Vo l]on 09-03-2023 Lymphocytes (Bld) [#/Vol] 2.3 10 3/uL 1.2-3.8 [facility] Lymphocytes/100 WBC Auto (Bl d)on 09-03-2023 Lymphocytes/100 WBC (Bld) 31.1 % 20.5-60.0 [facility] MCH Auto (RBC) [Entitic mass ]on 09-03-2023 MCH (RBC) [Entitic mass] 30.9 pg 25.9-34.0 [facility] MCHC Auto (RBC) [Mass/Vol]on 09-03-2023 MCHC (RBC) [Mass/Vol] 33.3 g/dL 29.9-35.2 [facility] MCV Auto (RBC) [Entitic vol] on 09-03-2023 MCV (RBC) [Entitic vol] 92.6 fL 80.0-94.0 [facility] Monocytes Auto (Bld) [#/Vol] on 09-03-2023 Monocytes (Bld) [#/Vol] 0.9 10 3/uL High 0.3-0.8 [facility] Monocytes/100 WBC Auto (Bld) on 09-03-2023 Monocytes/100 WBC (Bld) 11.3 % 1.7-12.0 [facility] Neutrophils Auto (Bld) [#/Vo l]on 09-03-2023 Neutrophils (Bld) [#/Vol] 4.2 10 3/uL 1.4-6.5 [facility] Neutrophils/100 WBC Auto (Bl d)on 09-03-2023 Neutrophils/100 WBC (Bld) 56.3 % 43.0-75.0 [facility] No Panel Informationon 09-02 Eosinophils # (Auto) 0.1 10 3/uL 0.0-0.7 [facility] Immature Granulocyte # (Auto) 0.02 10 3/uL 0.00-0.03 [facility] Platelet mean volume Auto (B ld) [Entitic vol]on 09-03-2023 Platelet mean volume (Bld) [Entitic vol] 9.3 fL Low 9.5-13.5 [facility] Platelets Auto (Bld) [#/Vol] on 09-03-2023 Platelets (Bld) [#/Vol] 186 10 3/uL 150-450 [facility] Prothrombin time (PT)on 08-13 PT Coag (PPP) [Time] 11.2 s 9.0-11.6 [facility] RBC Auto (Bld) [#/Vol]on RBC (Bld) [#/Vol] 3.50 10 6/uL Low 4.70-6.10 [facility] Serum or plasma anion gap de terminationon 09-03-2023 Anion gap [Moles/Vol] 15.3 [facility] Only[facility] 08-22-2023 Orders Only Normal [facility] ANESon 08-21-2023 ANES Normal [facility] HPon 08-21-2023 HP H&P reviewed. The patient was examined and there are no changes to the H&P. Normal [facility] NURSNOTEon 08-21-2023 NURSNOTE RN educated pt on d/ c instructions. RN encouraged pt to voice any questions or concerns. Pt verbalizes no questions or concerns at this time. Normal [facility] Basophils Auto (Bld) [#/Vol] on 08-18-2023 Basophils (Bld) [#/Vol] 0.0 10 3/uL 0.0-0.1 [facility] Basophils/100 WBC Auto (Bld) on 08-18-2023 Basophils/100 WBC (Bld) 0.1 % 0.2-2.0 [facility] Cholesterol in LDL Calc [Mas s/Vol]on 08-18-2023 Cholesterol in LDL [Mass/Vol] 31.6 mg/dL [facility] Comment on above: <100 mg/dl [id number] 0-129 mg/dl NEAR OR ABOVE [id number] mg/dl BORDERLINE [id number] mg/dl HIGH>190 mg/dl VERY HIGH Cholesterol in VLDL Calc [Ma ss/Vol]on 08-18-2023 Cholesterol in VLDL [Mass/Vol] 9.4 mg/dL [facility] Eosinophils/100 WBC Auto (Bl d)on 08-18-2023 Eosinophils/100 WBC (Bld) 0.8 % 0.9-7.0 [facility] Erythrocyte distribution wid th Auto (RBC) [Ratio]on 08-18-2023 Erythrocyte distribution width (RBC) [Ratio] 12.2 % 11.0-15.0 [facility] Estimated glomerular filtrat ion rate (GFR) non- Americanon 08-18-2023 GFR/1.73 sq M.predicted among non-blacks MDRD (S/P/Bld) [Vol rate/Area] 57 mL/min/{1.73_m2} >=60 [facility] Globulin Calc (S) [Mass/Vol] on 08-18-2023 Globulin (S) [Mass/Vol] 3.5 g/dL [facility] Hematocrit Auto (Bld) [Volum e fraction]on 08-18-2023 Hematocrit (Bld) [Volume fraction] 35.8 % 42.0-54.0 [facility] Hemoglobin [Mass/volume] in Bloodon 08-18-2023 Hemoglobin (Bld) [Mass/Vol] 11.9 g/dL 14.0-18.0 [facility] Laboratory - Chemistry and C hemistry - challengeon 08-18-2023 Albumin [Mass/Vol] 3.4 g/dL 3.4-5.0 [facility] ALP [Catalytic activity/Vol] 70 U/L 46-116 [facility] ALT [Catalytic activity/Vol] 17 U/L 16-63 [facility] AST [Catalytic activity/Vol] 12 U/L 15-37 [facility] Bilirubin [Mass/Vol] 0.3 mg/dL 0.2-1.0 [facility] Calcium [Mass/Vol] 9.0 mg/dL 8.5-10.1 [facility] Chloride [Moles/Vol] 105 mmol/L 98-107 [facility] Cholesterol [Mass/Vol] 82 mg/dL <=[facility] Cholesterol in HDL [Mass/Vol] 41 mg/dL 40-60 [facility] Comment on above: > or =60 mg/dl - LOW CARDIOVASCULAR RISK<40 mg/dl - HIGH CARDIOVASCULAR RISK CO2 [Moles/Vol] 26.5 mmol/L 21.0-32.0 [facility] Creatinine [Mass/Vol] 1.24 mg/dL 0.70-1.30 [facility] GFR/1.73 sq M.predicted MDRD (S/P/Bld) [Vol rate/Area] mL/min/{1.73_m2} >=60 [facility] Glucose [Mass/Vol] 172 mg/dL 74-106 [facility] Potassium [Moles/Vol] 5.1 mmol/L 3.5-5.1 [facility] Protein [Mass/Vol] 6.9 g/dL 6.4-8.2 [facility] Sodium [Moles/Vol] 139 mmol/L 136-145 [facility] Triglyceride [Mass/Vol] 47 mg/dL <=150 [facility] Urea nitrogen [Mass/Vol] 19.0 mg/dL 7.0-18.0 [facility] Urea nitrogen/Creatinine [Mass ratio] 15.3 mg/mg [facility] Laboratory - Hematology and Cell countson 08-18-2023 Immature granulocytes/100 WBC (Bld) 0.1 % 0.0-0.5 [facility] Leukocytes [#/volume] correc seth for nucleated erythrocytes in Blood by Automated counon 08-18-2023 WBC corrected for nucl RBC Auto (Bld) [#/Vol] 10.1 10 3/uL 4.0-11.0 [facility] Lymphocytes Auto (Bld) [#/Vo l]on 08-18-2023 Lymphocytes (Bld) [#/Vol] 2.5 10 3/uL 1.2-3.8 [facility] Lymphocytes/100 WBC Auto (Bl d)on 08-18-2023 Lymphocytes/100 WBC (Bld) 24.3 % 20.5-60.0 [facility] MCH Auto (RBC) [Entitic mass ]on 08-18-2023 MCH (RBC) [Entitic mass] 30.8 pg 25.9-34.0 [facility] MCHC Auto (RBC) [Mass/Vol]on 08-18-2023 MCHC (RBC) [Mass/Vol] 33.2 g/dL 29.9-35.2 [facility] MCV Auto (RBC) [Entitic vol] on 08-18-2023 MCV (RBC) [Entitic vol] 92.7 fL 80.0-94.0 [facility] Monocytes Auto (Bld) [#/Vol] on 08-18-2023 Monocytes (Bld) [#/Vol] 0.8 10 3/uL 0.3-0.8 [facility] Monocytes/100 WBC Auto (Bld) on 08-18-2023 Monocytes/100 WBC (Bld) 8.2 % 1.7-12.0 [facility] Neutrophils Auto (Bld) [#/Vo l]on 08-18-2023 Neutrophils (Bld) [#/Vol] 6.7 10 3/uL 1.4-6.5 [facility] Neutrophils/100 WBC Auto (Bl d)on 08-18-2023 Neutrophils/100 WBC (Bld) 66.5 % 43.0-75.0 [facility] No Panel Informationon 08-17 Eosinophils # (Auto) 0.1 10 3/uL 0.0-0.7 [facility] Immature Granulocyte # (Auto) 0.01 10 3/uL 0.00-0.03 [facility] Platelet mean volume Auto (B ld) [Entitic vol]on 08-18-2023 Platelet mean volume (Bld) [Entitic vol] 9.2 fL 9.5-13.5 [facility] Platelets Auto (Bld) [#/Vol] on 08-18-2023 Platelets (Bld) [#/Vol] 186 10 3/uL 150-450 [facility] RBC Auto (Bld) [#/Vol]on RBC (Bld) [#/Vol] 3.86 10 6/uL 4.70-6.10 [facility] Serum or plasma albumin/glob ulin mass ratioon 08-18-2023 Albumin/Globulin [Mass ratio] 1.0 {ratio} [facility] Serum or plasma anion gap de terminationon 08-18-2023 Anion gap [Moles/Vol] 12.6 mmol/L Fi [facility] Serum or plasma total choles terol/high density lipoprotein (HDL) cholesterol mass kendall 08-18-2023 Cholesterol.total/Chol esterol in HDL [Mass ratio] 2.0 {ratio} [facility] Comment on above: 3.3 - 4.4 LOW RISK4. 4 - 7.1 AVERAGE RISK7.1 - 11.0 MODERATE RISK>11.0 HIGH RISK HPon 08-17-2023 HP Normal [facility] Ambulatory Visit Summaryon 0 06-25-2023 Ambulatory Visit Summary BRANDON MARILU :1950 Visit Date:06/25/2023 Ambulatory Visit Instructions [...] DIAZ, Cristo Frances Where: [facility] [place] Normal [facility] Patient Educationon 06-25-19 24 Patient Education [...] provider. Document Revised: 04/05/2020 Document Reviewed: 04/05/2020 [employer] Patient Education ? 2022 [employer]. [employer] [facility] Urology Office/Clinic Noteon 06-25-2023 Urology Office/Clinic [...] to 16-30 Fr). [2] 6. 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 Had aortic valve replacement. Elevated risk for periop complications in the future. [3] Follow-up With When Contact Information Cristo RIVERA MD, URL [facility] [address], [place] [address] [phone] Additional Instructions: has f/u scheduled 11/19/23 Patient Education Testicular Self-Exam Opal Null, personally scribed for Dr. Rivera on 06/25/2023 10:02:39. . Documentation recorded by the scribeOpal, accurately reflects the services(s) I performed and decisions made by me. Authenticated by Dr. Rivera on 06/25/2023 10:05:22. Probl (more content not included)... Normal [facility] Comment on above: Result Comment: Elec tronically Signed By: Cristo RIVERA MD\.br\Date and Time Signed: 06/25/23 10:05 EST\.br\Electronically Co-Signed By: Opal Kessler\.br\Date and Time Co-Signed: 06/25/23 10:03 EST Calcium [Mass/volume] in Ser um or PlasmaOrdered By: Blas Ospina on 07-11-2022 Calcium [Mass/Vol] 9.2 mg/dL 8.2-10.2 [facility] Carbon dioxide, total [Moles /volume] in Serum or PlasmaOrdered By: Blas Ospina on 07-11-2022 CO2 [Moles/Vol] 22.4 mmol/L 22.0-30.0 [facility] Chloride [Moles/volume] in S quinten or PlasmaOrdered By: Blas Ospina on 07-11-2022 Chloride [Moles/Vol] 102 mmol/L 95-114 [facility] Creatinine and Glomerular fi ltration rate.predicted panel (S/P/Bld)Ordered By: Blas Ospina on 07-11-2022 Creatinine [Mass/Vol] 0.97 mg/dL 0.64-1.27 [facility] Estimated glomerular filtrat ion rate (GFR) non- AmericanOrdered By: Blas Ospina on 07-11-2022 GFR/1.73 sq M.predicted among non-blacks MDRD (S/P/Bld) [Vol rate/Area] > 60 mL/Min [facility] Glucose [Mass/volume] in Ser um or PlasmaOrdered By: Blas Ospina on 07-11-2022 Glucose [Mass/Vol] 197 mg/dL 70-100 [facility] Comment on above: ADA recommended refe rence rangeRandom Glucose Reference Range is dependent on time and content of last meal. Glucose of more than 200 mg/dL in a nonstressed, ambulatory subject supports the diagnosis of Diabetes Mellitus. No Panel InformationOrdered By: Blas Ospina on 07-11-2022 Estimated GFR () > 60 mL/Min [facility] Comment on above: GFR estimated refere nce range: According to KDOQI guidelines, <60 ml/min/1.73m2 is sufficient to diagnose a patient with chronic kidney disease. Pharmacy Creatinine Clearance (Chem N/A [facility] Potassium [Moles/volume] in Serum or PlasmaOrdered By: Blas Ospina on 07-11-2022 Potassium [Moles/Vol] See comment 3.5-5.1 [facility] Comment on above: Specimen hemolyzed, redraw requested Serum or plasma anion gap de terminationOrdered By: Blas sOpina on 07-11-2022 Anion gap [Moles/Vol] TNP [facility] Comment on above: Test not performed Sodium [Moles/volume] in Ser um or PlasmaOrdered By: Blas Ospina on 07-11-2022 Sodium [Moles/Vol] 131 mmol/L 136-146 [facility] Urea nitrogen [Mass/volume] in Serum or PlasmaOrdered By: Blas Ospina on 07-11-2022 Urea nitrogen [Mass/Vol] 20 mg/dL 02-03 [facility] XR hip RT min 2V(w/wo pelvis )*on 07-11-2022 XR hip RT min 2V(w/wo pelvis)* [facility] [employer] Other XR hip RT min 2V(w/wo pelvis)* [facility] [employer] Other XR hip RT min 2V(w/wo pelvis)* [address] [facility] [employer] Other XR hip RT min 2V(w/wo pelvis)* [place] [address] [employer] Other XR hip RT min 2V(w/wo pelvis)* XRay Report [employer] Other XR hip RT min 2V(w/wo pelvis)* Signed [employer] Other XR hip RT min 2V(w/wo pelvis)* Patient: Marilu Dan MR#: [id number] [employer] Other XR hip RT min 2V(w/wo pelvis)* 019 [employer] Other XR hip RT min 2V(w/wo pelvis)* : 1950 Acct:[id number] [employer] Other XR hip RT min 2V(w/wo pelvis)* Age/Sex: 72 / M ADM Date: 07/11/22 [employer] Other XR hip RT min 2V(w/wo pelvis)* Loc: Room: Type: [facility] [employer] Other XR hip RT min 2V(w/wo pelvis)* Attending Dr: Mary Beth Pitts MD [employer] Other XR hip RT min 2V(w/wo pelvis)* Copies to: Mary Beth Pitts MD [employer] Other XR hip RT min 2V(w/wo pelvis)* Ordering Provider: Mary Beth Pitts MD [employer] Other XR hip RT min 2V(w/wo pelvis)* Date of Service: 07/11/22 [employer] Other XR hip RT min 2V(w/wo pelvis)* XR/XR hip RT min 2V(w/wo pelvis)*: M25.551 [employer] Other XR hip RT min 2V(w/wo pelvis)* RIGHT HIP - 2 views: [employer] Other XR hip RT min 2V(w/wo pelvis)* CLINICAL HISTORY: Chronic right hip pain for one year. [employer] Other XR hip RT min 2V(w/wo pelvis)* COMPARISON: None [employer] Other XR hip RT min 2V(w/wo pelvis)* FINDINGS: Mild degenerative changes of the right hip without acute bony process. Additional [employer] Other XR hip RT min 2V(w/wo pelvis)* degenerative changes are seen involving the SI joints and visualized lower lumbar spine. Vascular [employer] Other XR hip RT min 2V(w/wo pelvis)* calcifications. [employer] Other XR hip RT min 2V(w/wo pelvis)* XR/XR hip RT min 2V(w/wo pelvis)* [employer] Other XR hip RT min 2V(w/wo pelvis)* IMPRESSION: [employer] Other XR hip RT min 2V(w/wo pelvis)* MILD DEGENERATIVE CHANGES OF THE RIGHT HIP WITHOUT ACUTE BONY PROCESS.. [employer] Other XR hip RT min 2V(w/wo pelvis)* Impression dictated by: Griffin Thibodeaux Jr., DBrookOBrook07/11/2022 11:33 AM [employer] Other XR hip RT min 2V(w/wo pelvis)* Dictation Location: [place] [address] [employer] Other XR hip RT min 2V(w/wo pelvis)* Transcribed By: ABIMBOLA 07/11/22 [facility] [employer] Other XR hip RT min 2V(w/wo pelvis)* Dictated By: Griffin Thibodeaux Jr, DO 07/11/22 [facility] [employer] Other XR hip RT min 2V(w/wo pelvis)* Signed By: [employer] Other XR hip RT min 2V(w/wo pelvis)* 07/11/22 [facility] [employer] Other CULTURE URINEon 04-29-2022 CULTURE URINE Culture Observations : NO GROWTH. Normal [facility] Comment on above: Performed By: #### S EDR #### [facility] [address] [place] [address] Dr. Julius Greer Basophils Auto (Bld) [#/Vol] Ordered By: Neno Moreira on 03-19-2022 Basophils (Bld) [#/Vol] 0.0 10*3/uL 0.0-0.2 [facility] Basophils/100 WBC Auto (Bld) Ordered By: Neno Moreira on 03-19-2022 Basophils/100 WBC (Bld) 0.2 % . [facility] CULTURE BLOODon 03-19-2022 Microscopic examination [...] S F Trimethoprim/Sulfamethox azole <=20 S F [facility] Comment on above: Performed By: #### S EDR #### [facility] [address] [place] [address] Dr. Julius Greer Microscopic examination of blood, [...] S F Trimethoprim/Sulfamethox azole <=20 S F [facility] Comment on above: Performed By: #### B [id number] #### [facility] [address] [place] [address] Dr. Julius Greer CULTURE URINEon 03-19-2022 CULTURE [...] F Trimethoprim/Sulfamethox azole <=20 S F Normal [facility] Comment on above: Performed By: #### S EDR #### [facility] [address] [place] [address] Dr. Julius Greer Creatinine and Glomerular fi ltration rate.predicted panel (S/P/Bld)Ordered By: Neno Moreira on 03-19-2022 Creatinine [Mass/Vol] 0.75 mg/dL 0.64-1.27 [facility] Eosinophils Auto (Bld) [#/Vo l]Ordered By: Neno Moreira on 03-19-2022 Eosinophils (Bld) [#/Vol] 0.0 10*3/uL 0.0-0.45 [facility] Eosinophils/100 WBC Auto (Bl d)Ordered By: Neno Moreira on 03-19-2022 Eosinophils/100 WBC (Bld) 1.0 % . [facility] Erythrocyte distribution wid th Auto (RBC) [Ratio]Ordered By: Neno Moreira on 03-19-2022 Erythrocyte distribution width (RBC) [Ratio] 12.8 % 12.0-14.8 [facility] Estimated glomerular filtrat ion rate (GFR) non- AmericanOrdered By: Neno Moreira on 03-19-2022 GFR/1.73 sq M.predicted among non-blacks MDRD (S/P/Bld) [Vol rate/Area] > 60 mL/Min [facility] Glucose Glucometer (BldC) [M ass/Vol]Ordered By: Neno Moreira on 03-19-2022 Glucose [Mass/Vol] 295 mg/dL [facility] Comment on above: Random Glucose Refer ence Range is dependent on time and content of last meal. Glucose of more than 200 mg/dL in a nonstressed, ambulatory subject supports the diagnosis of Diabetes Mellitus. Hematocrit Auto (Bld) [Volum e fraction]Ordered By: Neno Moreira on 03-19-2022 Hematocrit (Bld) [Volume fraction] 35.5 % 38.8-50.0 [facility] Hemoglobin [Mass/volume] in BloodOrdered By: Neno Moreira on 03-19-2022 Hemoglobin (Bld) [Mass/Vol] 12.0 g/dL 13.0-17.0 [facility] Laboratory - Hematology and Cell countsOrdered By: Neno Moreira on 03-19-2022 Nucleated RBC/100 WBC (Bld) [Ratio] 0.1 % 0-0.5 [facility] Leukocytes [#/volume] in Blo od by Automated countOrdered By: Neno Moreira on 03-19-2022 WBC (Bld) [#/Vol] 4.9 10*3/uL 4.5-11.0 [facility] Lymphocytes Auto (Bld) [#/Vo l]Ordered By: Neno Moreira on 03-19-2022 Lymphocytes (Bld) [#/Vol] 1.0 10*3/uL 1.00-4.8 [facility] Lymphocytes/100 WBC Auto (Bl d)Ordered By: Neno Moreira on 03-19-2022 Lymphocytes/100 WBC (Bld) 20.4 % . [facility] MCH Auto (RBC) [Entitic mass ]Ordered By: Neno Moreira on 03-19-2022 MCH (RBC) [Entitic mass] 29.9 pg 27.5-35.2 [facility] MCHC Auto (RBC) [Mass/Vol]Or dered By: Neno Moreira on 03-19-2022 MCHC (RBC) [Mass/Vol] 33.9 g/dL 32.5-35.6 [facility] MCV Auto (RBC) [Entitic vol] Ordered By: Neno Moreira on 03-19-2022 MCV (RBC) [Entitic vol] 88.3 fL 83.5-101 [facility] Monocytes Auto (Bld) [#/Vol] Ordered By: Obsarabjitdarobin Daromar on 03-19-2022 Monocytes (Bld) [#/Vol] 0.6 10*3/uL 0.0-0.8 [facility] Monocytes/100 WBC Auto (Bld) Ordered By: Obsarabjitdarobin Daromar on 03-19-2022 Monocytes/100 WBC (Bld) 12.2 % . [facility] Neutrophils Auto (Bld) [#/Vo l]Ordered By: Obaydarobin Daromar on 03-19-2022 Neutrophils (Bld) [#/Vol] 3.3 10*3/uL 1.8-7.7 [facility] Neutrophils/100 WBC Auto (Bl d)Ordered By: Obsarabjitdah Daromar on 03-19-2022 Neutrophils/100 WBC (Bld) 66.2 % . [facility] No Panel InformationOrdered By: Obpaolo Coronadoomar on 03-19-2022 Estimated GFR () > 60 mL/Min [facility] Comment on above: GFR estimated refere nce range: According to KDOQI guidelines, <60 ml/min/1.73m2 is sufficient to diagnose a patient with chronic kidney disease. Pharmacy Creatinine Clearance (Chem 85.68 [facility] Platelet mean volume Auto (B ld) [Entitic vol]Ordered By: Obsarabjitdarobin Coronadoomar on 03-19-2022 Platelet mean volume (Bld) [Entitic vol] 8.3 fL 6.6-10.1 [facility] Platelets Auto (Bld) [#/Vol] Ordered By: Obsarabjitdarobin Daromar on 03-19-2022 Platelets (Bld) [#/Vol] 134 10*3/uL 150-450 [facility] RBC Auto (Bld) [#/Vol]Ordere d By: Obaydah Daromar on 03-19-2022 RBC (Bld) [#/Vol] 4.02 10*6/uL 3.90-5.60 [facility] Serum or plasma anion gap de terminationOrdered By: Neno Moreira on 03-19-2022 Anion gap [Moles/Vol] 9.6 mmol/L 6.0-15.0 [facility] Serum or plasma calcium ruma urement (mass/volume)Ordered By: Neno Moreira on 03-19-2022 Calcium [Mass/Vol] 8.2 mg/dL 8.2-10.2 [facility] Serum or plasma chloride gonzalez surement (moles/volume)Ordered By: Neno Moreira on 03-19-2022 Chloride [Moles/Vol] 104 mmol/L 95-114 [facility] Serum or plasma glucose ruma urement (mass/volume)Ordered By: Neno Moreira on 03-19-2022 Glucose [Mass/Vol] 203 mg/dL 70-100 [facility] Comment on above: ADA recommended refe rence rangeRandom Glucose Reference Range is dependent on time and content of last meal. Glucose of more than 200 mg/dL in a nonstressed, ambulatory subject supports the diagnosis of Diabetes Mellitus. Serum or plasma potassium me asurement (moles/volume)Ordered By: Neno Moreira on 03-19-2022 Potassium [Moles/Vol] 3.7 mmol/L 3.5-5.1 [facility] Serum or plasma sodium measu rement (moles/volume)Ordered By: Neno Moreira on 03-19-2022 Sodium [Moles/Vol] 137 mmol/L 136-146 [facility] Serum or plasma total carbon dioxide measurement (moles/volume)Ordered By: Neno Moreira on 03-19-2022 CO2 [Moles/Vol] 27.1 mmol/L 22.0-30.0 [facility] Serum or plasma urea nitroge n measurement (mass/volume)Ordered By: Neno Moreira on 03-19-2022 Urea nitrogen [Mass/Vol] 11 mg/dL 9-23 [facility] Troponin I.cardiac [Mass/vol ume] in Serum or Plasma by High sensitivity methodOrdered By: Neno Moreira on 03-19-2022 Troponin I.cardiac High sensitivity method [Mass/Vol] 1882 pg/mL 0-20 [facility] Comment on above: Results calledat 070 8 on 03/19/22 Urine culture routineOrdered By: Paulina Alexander on 03-19-2022 Bacteria identified Cx Nom (U) 2 Days [facility] Activated partial thrombopla stin time (aPTT) in platelet poor plasma by coagulation aOrdered By: Paulina Alexander on 03-18-2022 aPTT Coag (PPP) [Time] 26.2 s 25.1-36.5 [facility] Laboratory - CoagulationOrde red By: Paulina Alexander on 03-18-2022 PT Coag (PPP) [Time] 14.0 s 9.0-12.9 [facility] Platelet adequacy [Presence] in Blood by Light microscopyOrdered By: Paulina Alexander on 03-18-2022 Platelets LM Ql (Bld) Decreased Normal Fir [facility] Platelet morphology finding [Identifier] in BloodOrdered By: Paulina Alexander on 03-18-2022 Platelet morphology finding Nom (Bld) Normal Normal [facility] Platelet poor plasma interna tional normalized ratio (INR) by coagulation assay (relatOrdered By: Paulina Alexander on 03-18-2022 INR Coag (PPP) [Relative time] 1.2 {INR} [facility] Comment on above: INR Therapeutic [...] 03-18-2022 RBC morphology finding Nom (Bld) Normal [facility] Automated erythrocytes count in urine sediment (number/area)Ordered By: Paulina Alexander on 03-17-2022 RBC Auto (Urine sed) [#/Area] 20-49 [HPF] 0-4 [facility] Automated leukocytes count i n urine sediment (number/area)Ordered By: Paulina Alexander on 03-17-2022 WBC Auto (Urine sed) [#/Area] Innumerable [HPF] 0-4 [facility] Automated urine hyaline cast s count (number/volume)Ordered By: Paulina Alexander on 03-17-2022 Hyaline casts Auto (U) [#/Vol] 0-1 [LPF] 0-1 [facility] Bilirubin Test strip Ql (U)O rdered By: Paulina Alexander on 03-17-2022 Bilirubin Ql (U) Negative Negative [facility] Body fluid albumin measureme nt (mass/volume)Ordered By: Paulina Alexander on 03-17-2022 Albumin (Body fld) [Mass/Vol] 2.5 g/dL 3.2-5.5 [facility] Casts typing in urine sedime nt by light microscopyOrdered By: Paulina Alexander on 03-17-2022 Casts LM Nom (Urine sed) None seen [LPF] None Seen [facility] Cholesterol [Mass/volume] in Serum or PlasmaOrdered By: Paulina Alexander on 03-17-2022 Cholesterol [Mass/Vol] 50 mg/dL 140-200 [facility] Comment on above: Chol less than 200 m g/dl low riskChol 201-239 mg/dl borderline riskChol 240 mg/dl and greater high risk Cholesterol in LDL Calc [Mas s/Vol]Ordered By: Paulina Alexander on 03-17-2022 Cholesterol in LDL [Mass/Vol] 12 mg/dL 0-100 [facility] Comment on above: LDL ATP III CLASSIFI CATIONLDL less than 100 mg/dL OptimalLDL 100-129 mg/dL Near or above optimalLDL 130-159 mg/dL Borderline highLDL 160-189 mg/dL HighLDL greater than 189 mg/dL Very high Cholesterol in VLDL Calc [Ma ss/Vol]Ordered By: Paulina Alexander on 03-17-2022 Cholesterol in VLDL [Mass/Vol] 20 mg/dL [facility] Color Auto (U)Ordered By: Jose G Alexander on 03-17-2022 Color (U) Yellow Yellow [facility] Globulin Calc (S) [Mass/Vol] Ordered By: Paulina Alexander on 03-17-2022 Globulin (S) [Mass/Vol] 3.1 g/dL [facility] Glucose mean value [Mass/vol ume] in Blood Estimated from glycated hemoglobinOrdered By: Paulina Alexander on 03-17-2022 Average glucose Estimated from glycated hemoglobin (Bld) [Mass/Vol] 180 mg/dL [facility] Hemoglobin A1c percentageOrd ered By: Paulina Alexander on 03-17-2022 HbA1c (Bld) [Mass fraction] 7.9 % 4.3-5.6 [facility] Comment on above: Increased risk for d iabetes: 5.7 - 6.4diabetes: >6.4glycemic control for adults with diabetes: <7.0 Ketones Auto test strip (U) [Mass/Vol]Ordered By: Paulina Alexander on 03-17-2022 Ketones (U) [Mass/Vol] Negative Negative [facility] - Chemistry and C hemistry - challengeOrdered By: Paulina Alexander on 03-17-2022 Magnesium [Mass/Vol] 1.6 mg/dL 1.6-2.6 [facility] Nitrite Test strip Ql (U)Ord ered By: Paulina Alexander on 03-17-2022 Nitrite Ql (U) Negative Negative [facility] No Panel InformationOrdered By: Neno Moreira on 03-17-2022 Bedside Glucose Comment Glu2: cleaned meter [facility] Protein Auto test strip (U) [Mass/Vol]Ordered By: Paulina Alexander on 03-17-2022 Protein (U) [Mass/Vol] 100 mg/dL Negative [facility] Protein [Mass/volume] in Ser um or PlasmaOrdered By: Paulina Alexander on 03-17-2022 Protein [Mass/Vol] 5.6 g/dL 6.1-7.9 [facility] Serum or plasma alanine gamez otransferase measurement without P-5'-P (enzymatic activiOrdered By: Paulina Alexander on 03-17-2022 ALT No additional P-5'-P [Catalytic activity/Vol] 19 U/L 10-60 [facility] Serum or plasma albumin/glob ulin mass ratioOrdered By: Paulina Alexander on 03-17-2022 Albumin/Globulin [Mass ratio] 0.8 {ratio} [facility] Serum or plasma alkaline adriane sphatase measurement (enzymatic activity/volume)Ordered By: Paulina Alexander on 03-17-2022 ALP [Catalytic activity/Vol] 56 U/L 32-92 [facility] Serum or plasma aspartate am inotransferase measurement (enzymatic activity/volume)Ordered By: Paulina Alexander on 03-17-2022 AST [Catalytic activity/Vol] 37 U/L 10-42 [facility] Serum or plasma high density lipoprotein (HDL) cholesterol measurementOrdered By: Paulina Alexander on 03-17-2022 Cholesterol in HDL [Mass/Vol] 18 mg/dL 29-71 [facility] Comment on above: HDL CHOL ATP-III CLA SSIFICATION Cardiovascular RiskHDL > or equal to 60 mg/dL LOWHDL < 40 mg/dL HIGH Serum or plasma total biliru bin measurement (mass/volume)Ordered By: Paulina Alexander on 03-17-2022 Bilirubin [Mass/Vol] 0.6 mg/dL 0.3-1.2 [facility] Serum or plasma total choles terol/high density lipoprotein (HDL) cholesterol mass ratOrdered By: Paulina Alexander on 03-17-2022 Cholesterol.total/Chol esterol in HDL [Mass ratio] 2.8 {ratio} <5.0 [facility] Specific gravity Auto test s trip (U) [Rel density]Ordered By: Paulina Alexander on 03-17-2022 Specific gravity (U) [Rel density] 1.017 1.001-1.030 [facility] Squamous epithelial cells de tection in urine sediment by light microscopyOrdered By: Paulina Alexander on 03-17-2022 Epithelial cells.squamous LM Ql (Urine sed) 0-1 [HPF] 0-2 [facility] Triglyceride [Mass/volume] i n Serum or PlasmaOrdered By: Paulina Alexander on 03-17-2022 Triglyceride [Mass/Vol] 100 mg/dL 35-149 [facility] Comment on above: TRIG ATP III CLASSIF ICATIONTRIG less than 150 mg/dL NormalTRIG 150-199 mg/dL Borderline highTRIG 200-500 mg/dL High TRIG greater than 500 mg/dL Very highStandard traceable to the Center for Disease Conrtrol and Prevention (CDC) test method. Urine bacteria detection by automated methodOrdered By: Paulina Alexander on 03-17-2022 Bacteria Auto Ql (U) 2+ None Seen [facility] Comment on above: --- 03/17/22 0600 -- -Ur Bact previously reported as: None Seen Urine clarity by refractomet ry automatedOrdered By: Paulina Alexander on 03-17-2022 Clarity Refractometry automated (U) Turbid Clear [facility] Urine glucose measurement by automated test strip (mass/volume)Ordered By: Paulina Alexander on 03-17-2022 Glucose Auto test strip (U) [Mass/Vol] 250 mg/dL Normal [facility] Urine hemoglobin detection b y automated test stripOrdered By: Paulina Alexander on 03-17-2022 Hemoglobin Auto test strip Ql (U) 3+ Negative [facility] Urine leukocyte esterase det ection by automated test stripOrdered By: Paulina Alexander on 03-17-2022 Leukocyte esterase Auto test strip Ql (U) 4+ Negative [facility] Urobilinogen Auto test strip (U) [Mass/Vol]Ordered By: Paulina Alexander on 03-17-2022 Urobilinogen (U) [Mass/Vol] Normal mg/dL Normal [facility] Yeast detection in urine sed iment by light microscopyOrdered By: Paulina Alexander on 03-17-2022 Yeast LM Ql (Urine sed) None seen [HPF] None Seen [facility] pH Auto test strip (U)Ordere d By: Paulina Alexander on 03-17-2022 pH (U) 5.5 [pH] 5.0-9.0 [facility] ACETONE SERUMon 03-16-2022 ACETONE Negative Normal NEGATIVE [facility] Comment on above: Performed By: #### S EDR #### [facility] [address] [place] [address] Dr. Julius Greer BLOOD CULTURE ID PANELon A. baumannii Not detected Normal NOT DETECTED [facility] Comment on above: Performed By: #### C BCMAN #### [facility] [address] [place] [address] Dr. Julius Greer Bacteriodes fragilis Not detected Normal NOT DETECTED [facility] Comment on above: Performed By: #### C BCMAN #### [facility] [address] [address] [address] Julius GAMBLED CONTROLS PASSED Normal [facility] Comment on above: Performed By: #### C BCMAN #### [facility] [address] [address] [address] Julius Greer BCIDBTHD BLOOD CULTURE BOTTLE INFORMATION [facility] Comment on above: Performed By: #### C BCMAN #### [facility] [address] [address] [address] Julius Greer BCIDHD1 ANTIMICROBIAL RESIST ANCE GENES [facility] Comment on above: Performed By: #### C BCMAN #### [facility] [address] [place] [address] Dr. Julius Greer BCIDHD2 SEE BELOW [facility] Comment on above: Result Comment: Note : Antimicrobial resitance can occur via multiple mechanisms. A Not Detected result for the [employer] antomicrobial resistance gene assays does not indicate antimicrobial susceptibility. Subculturing is required for species identification and susceptibility testing of isolates. Performed By: #### C BCMAN #### [facility] [address] [place] [address] Dr. Julius Greer BCIDHD3 Positive [facility] Comment on above: Performed By: #### C BCMAN #### [facility] [address] [place] [address] Dr. Julius Greer BCIDHD4 Negative [facility] Comment on above: Performed By: #### C BCMAN #### [facility] [address] [place] [address] Dr. Julius Greer BCIDHD5 YEAST [facility] Comment on above: Performed By: #### C BCMAN #### [facility] [address] [place] [address] Dr. Julius Greer Bottle Set: Set 2 [facility] Comment on above: Performed By: #### C BCMAN #### [facility] [address] [place] [address] Dr. Julius Greer Bottle: Aerobic Normal [facility] Comment on above: Performed By: #### C BCMAN #### [facility] [address] [place] [address] Dr. Julius Greer C. neoformans/gattii Not detected Normal NOT DETECTED [facility] Comment on above: Performed By: #### C BCMAN #### [facility] [address] [place] [address] Dr. Julius Greer Sally albicans Not detected Normal NOT DETECTED [facility] Comment on above: Performed By: #### C BCMAN #### [facility] [address] [place] [address] Dr. Julius Greer Sally auris Not detected Normal NOT DETECTED [facility] Comment on above: Performed By: #### C BCMAN #### [facility] [address] [place] [address] Dr. Julius Greer Sally glabrata Not detected Normal NOT DETECTED [facility] Comment on above: Performed By: #### C BCMAN #### [facility] [address] [place] [address] Dr. Julius Greer Sally Krusei Not detected Normal NOT DETECTED [facility] Comment on above: Performed By: #### C BCMAN #### [facility] [address] [place] [address] Dr. Julius Greer Sally Parapsilosis Not detected Normal NOT DETECTED [facility] Comment on above: Performed By: #### C BCMAN #### [facility] [address] [place] [address] Dr. Julius Greer Sally Tropicalis Not detected Normal NOT DETECTED [facility] Comment on above: Performed By: #### C BCMAN #### [facility] [address] [place] [address] Dr. Julius Greer CTX-M Resistant Gene Not detected Normal NOT DETECTED [facility] Comment on above: Performed By: #### C BCMAN #### [facility] [address] [place] [address] Dr. Julius Greer E. Cloacae complex Not detected Normal NOT DETECTED [facility] Comment on above: Performed By: #### C BCMAN #### [facility] [address] [place] [address] Dr. Julius Greer E. faecalis Not detected Normal NOT DETECTED [facility] Comment on above: Performed By: #### C BCMAN #### [facility] [address] [place] [address] Dr. Julius Greer E. faecium Not detected Normal NOT DETECTED [facility] Comment on above: Performed By: #### C BCMAN #### [facility] [address] [place] [address] Dr. Julius Greer Enterobacteriaceae Detected Critically abnormal NOT DETECTED [facility] Comment on above: Performed By: #### C BCMAN #### [facility] [address] [place] [address] Dr. Julius Greer Escherichia coli Not detected Normal NOT DETECTED [facility] Comment on above: Performed By: #### C BCMAN #### [facility] [address] [place] [address] Dr. Julius Greer H. influenzae Not detected Normal NOT DETECTED [facility] Comment on above: Performed By: #### C BCMAN #### [facility] [address] [place] [address] Dr. Julius Greer IMP Resistant Gene Not detected Normal NOT DETECTED [facility] Comment on above: Performed By: #### C BCMAN #### [facility] [address] [place] [address] Dr. Julius Greer K. oxytoca Not detected Normal NOT DETECTED [facility] Comment on above: Performed By: #### C BCMAN #### [facility] [address] [place] [address] Dr. Julius Greer K. pneumoniae Not detected Normal NOT DETECTED [facility] Comment on above: Performed By: #### C BCMAN #### [facility] [address] [place] [address] Dr. Julius Greer Klebsiella aerogenes Not detected Normal NOT DETECTED [facility] Comment on above: Performed By: #### C BCMAN #### [facility] [address] [place] [address] Dr. Julius Greer KPC Resistant Gene Not detected Normal NOT DETECTED [facility] Comment on above: Performed By: #### C BCMAN #### [facility] [address] [place] [address] Dr. Julius Greer List. monocytogenes Not detected Normal NOT DETECTED [facility] Comment on above: Performed By: #### C BCMAN #### [facility] [address] [place] [address] Dr. Julius Greer Mcr-1 Resistant Gene Not Applicable Normal NOT DETECTED [facility] Comment on above: Performed By: #### C BCMAN #### [facility] [address] [place] [address] Dr. Julius Greer mecA/C Not Applicable Normal NOT DETECTED [facility] Comment on above: Performed By: #### C BCMAN #### [facility] [address] [place] [address] Dr. Julius Greer mecA/C MREJ Not Applicable Normal NOT DETECTED [facility] Comment on above: Performed By: #### C BCMAN #### [facility] [address] [place] [address] Dr. Julius Greer N. meningitidis Not detected Normal NOT DETECTED [facility] Comment on above: Performed By: #### C BCMAN #### [facility] [address] [place] [address] Dr. Julius Greer NDM Resistant Gene Not detected Normal NOT DETECTED [facility] Comment on above: Performed By: #### C BCMAN #### [facility] [address] [place] [address] Dr. Julius Greer Oxa-48-like Not detected Normal NOT DETECTED [facility] Comment on above: Performed By: #### C BCMAN #### [facility] [address] [place] [address] Dr. Julius Greer Proteus Detected Critically abnormal NOT DETECTED [facility] Comment on above: Performed By: #### C BCMAN #### [facility] [address] [place] [address] Dr. Julius Greer Pseud. aeruginosa Not detected Normal NOT DETECTED [facility] Comment on above: Performed By: #### C BCMAN #### [facility] [address] [place] [address] Dr. Julius Greer S. maltophilia Not detected Normal NOT DETECTED [facility] Comment on above: Performed By: #### C BCMAN #### [facility] [address] [place] [address] Dr. Julius Greer Salmonella Not detected Normal NOT DETECTED [facility] Comment on above: Performed By: #### C BCMAN #### [facility] [address] [place] [address] Dr. Julius Greer Seratia marcescens Not detected Normal NOT DETECTED [facility] Comment on above: Performed By: #### C BCMAN #### [facility] [address] [place] [address] Dr. Julius Greer Site: Rt Wrist Normal [facility] Comment on above: Performed By: #### C BCMAN #### [facility] [address] [place] [address] Dr. Julius Greer Staph. aureus Not detected Normal NOT DETECTED [facility] Comment on above: Performed By: #### C BCMAN #### [facility] [address] [place] [address] Dr. Julius Greer Staph. epidermidis Not detected Normal NOT DETECTED [facility] Comment on above: Performed By: #### C BCMAN #### [facility] [address] [place] [address] Dr. Julius Greer Staprobin. lugdunensis Not detected Normal NOT DETECTED [facility] Comment on above: Performed By: #### C BCMAN #### [facility] [address] [place] [address] Dr. Julius Greer Staphylococcus Not detected Normal NOT DETECTED [facility] Comment on above: Performed By: #### C BCMAN #### [facility] [address] [place] [address] Dr. Julius Greer Strep. agalactiae Not detected Normal NOT DETECTED [facility] Comment on above: Performed By: #### C BCMAN #### [facility] [address] [place] [address] Dr. Julius Greer Strep. pneumoniae Not detected Normal NOT DETECTED [facility] Comment on above: Performed By: #### C BCMAN #### [facility] [address] [place] [address] Dr. Julius Greer Strep. pyogenes Not detected Normal NOT DETECTED [facility] Comment on above: Performed By: #### C BCMAN #### [facility] [address] [place] [address] Dr. Julius Greer Streptococcus Not detected Normal NOT DETECTED [facility] Comment on above: Performed By: #### C BCMAN #### [facility] [address] [place] [address] Dr. Julius Greer Alejandra/B Resist. Gene Not Applicable Normal NOT DETECTED [facility] Comment on above: Performed By: #### C BCMAN #### [facility] [address] [place] [address] Dr. Julius Greer VIM Resistant Gene Not detected Normal NOT DETECTED [facility] Comment on above: Performed By: #### C BCMAN #### [facility] [address] [place] [address] Dr. Julius Greer CARDIAC MARKUS 3-6on 2 CK [Catalytic activity/Vol] 130 U/L Normal 39-308 [facility] Comment on above: Performed By: #### C BCMAN #### [facility] [address] [place] [address] Dr. Julius Greer CK.MB [Mass/Vol] 3.69 ng/mL Critically high <=3.60 [facility] Comment on above: Performed By: #### C BCMAN #### [facility] [address] [place] [address] Dr. Julius Greer HSTROP 603.2 pg/mL Critically high 4.0-76.1 [facility] Comment on above: Result Comment: CUT- OFF POINTS HAVE BEEN ESTABLISHED BASED ON THE FOURTH UNIVERSAL DEFINITIONS OF MYOCARDIAL INFARCTION. THE UPPER REFERENCE LIMIT (URL) OF TROPONIN, DEFINED THE 99TH PERCENTILE OF cTnI DISTRIBUTION IN A REFERENCE POPULATION, HAS BEEN CONFIRMED THE DECISION THRESHOLD FOR PR DIAGNOSIS. Performed By: #### C BCMAN #### [facility] [address] [address] [address] Julius Greer CBC W MANUAL DIFFon 03-16-20 22 ATYPICAL LYMPH # 0.04 103/ul Normal [facility] Comment on above: Performed By: #### C EMETERIO #### [facility] [address] [address] [address] Julius Greer ATYPICAL LYMPH % 1 % Normal [facility] Comment on above: Performed By: #### C EMETERIO #### [facility] [address] [address] [address] Julius Greer BAND # 0.2 103/ul Normal 0.0-0.3 [facility] Comment on above: Performed By: #### C EMETERIO #### [facility] [address] [place] [address] Dr. Julius Greer BAND % 5 % Normal 0-5 [facility] Comment on above: Performed By: #### C EMETERIO #### [facility] [address] [place] [address] Dr. Julius Greer BASOM # 0.00 103/ul Normal 0.00-0.10 [facility] Comment on above: Performed By: #### C EMETERIO #### [facility] [address] [place] [address] Dr. Julius Greer BASOM % 0.0 % Critically low 0.2-2.0 [facility] Comment on above: Performed By: #### C EMETERIO #### [facility] [address] [place] [address] Dr. Julius Greer BLAST # Normal [facility] Comment on above: Performed By: #### C EMETERIO #### [facility] [address] [place] [address] Dr. Julius Greer BLAST % Normal [facility] Comment on above: Performed By: #### C EMETERIO #### [facility] [address] [place] [address] Dr. Julius Greer CORRECTED WBC Normal 4.0-11.0 [facility] Comment on above: Performed By: #### C EMETERIO #### [facility] [address] [address] [address] Julius Greer EOS # 0.00 103/ul Normal 0.00-0.70 [facility] Comment on above: Performed By: #### C EMETERIO #### [facility] [address] [address] [address] Julius Greer EOS% 0.0 % Critically low 0.9-7.0 [facility] Comment on above: Performed By: #### C EMETERIO #### [facility] [address] [address] [address] Julius Greer HCT 39.8 % Critically low 42.0-54.0 [facility] Comment on above: Performed By: #### C EMETERIO #### [facility] [address] [place] [address] Dr. Julius Greer HGB 13.3 g/dl Critically low 14.0-18.0 [facility] Comment on above: Performed By: #### C EMETERIO #### [facility] [address] [place] [address] Dr. Julius Greer LYMPHM # 0.43 103/ul Critically low 1.20-3.80 [facility] Comment on above: Performed By: #### C EMETERIO #### [facility] [address] [place] [address] Dr. Julius Greer LYMPHM% 11.0 % Critically low 20.5-60.0 [facility] Comment on above: Performed By: #### C EMETERIO #### [facility] [address] [place] [address] Dr. Julius Greer MCH 29.9 pg Normal 25.9-34.0 [facility] Comment on above: Performed By: #### C EMETERIO #### [facility] [address] [place] [address] Dr. Julius Greer MCHC 33.4 g/dl Normal 29.9-35.2 [facility] Comment on above: Performed By: #### C EMETERIO #### [facility] [address] [place] [address] Dr. Julius Greer MCV 89.4 fL Normal 80.0-94.0 [facility] Comment on above: Performed By: #### C EMETERIO #### [facility] [address] [place] [address] Dr. Julius Greer METAMYELOCYTE # Normal [facility] Comment on above: Performed By: #### C EMETERIO #### [facility] [address] [place] [address] Dr. Julius Greer METAMYELOCYTE % Normal [facility] Comment on above: Performed By: #### C BCSARITA #### [facility] [address] [place] [address] Dr. Julius Greer MONOM# 0.08 103/ul Critically low 0.30-0.80 [facility] Comment on above: Performed By: #### C EMETERIO #### [facility] [address] [place] [address] Dr. Julius Greer MONOM% 2.0 % Normal 1.7-12.0 [facility] Comment on above: Performed By: #### C EMETERIO #### [facility] [address] [place] [address] Dr. Julius Greer MPV 9.6 fL Normal 9.5-13.5 [facility] Comment on above: Performed By: #### C EMETERIO #### [facility] [address] [place] [address] Dr. Julius Greer MYELOCYTE # Normal [facility] Comment on above: Performed By: #### C EMETERIO #### [facility] [address] [place] [address] Dr. Julius Greer MYELOCYTE % Normal [facility] Comment on above: Performed By: #### C EMETERIO #### [facility] [address] [place] [address] Dr. Julius Greer NRBC Normal [facility] Comment on above: Performed By: #### C EMETERIO #### [facility] [address] [place] [address] Dr. Julius Greer PLT 130 103/ul Critically low 150-450 [facility] Comment on above: Performed By: #### C BCMAN #### [facility] [address] [place], [place] [address] Dr. Julius Greer RBC 4.45 106/ul Critically low 4.70-6.10 [facility] Comment on above: Performed By: #### C FRANCMAN #### [facility] [address] [place], [place] [address] Dr. Julius Greer RDW 12.1 % Normal 11.0-15.0 [facility] Comment on above: Performed By: #### C FRANCMAN #### [facility] [address] [place], [place] [address] Dr. Julius Greer SEG # 3.16 103/ul Normal 1.40-6.50 [facility] Comment on above: Performed By: #### C EMETERIO #### [facility] [address] [address] [address] Julius Greer SEG % 81.0 % Critically high 43.0-75.0 [facility] Comment on above: Performed By: #### C EMETERIO #### [facility] [address] [place], [place] [address] Dr. Julius Greer WBC 3.9 103/ul Critically low 4.0-11.0 [facility] Comment on above: Performed By: #### C EMETERIO #### [facility] [address] [place], [place] [address] Dr. Julius Greer CRPon 03-16-2022 CRP 27.4 mg/dL Critically high <=1.0 [facility] Comment on above: Performed By: #### S EDR #### [facility] [address] [address] [address] ABD/PELVIS WO CONon [...] DORCAS PATEL Date: 2022-03-16 18:46 Normal [facility] Covid-19 PCR ([facility])on SARS-CoV-2 (COVID-19) RNA RAYMON+probe Ql (Unsp spec) Not detected Normal NOT DETECTED [facility] Comment on above: Result Comment: When diagnostic [...] for this test is supported by the [place] of Health and Human Service's declaration that [...] longer be used). Performed By: #### C [facility] #### [facility] [address] [address] [address] Julius HIGUERA URINE PROFILEon 2 Bilirubin Ql (U) Negative Normal NEGATIVE [facility] Comment on above: Performed By: #### C BCMAN #### [facility] [address] [place] [address] Dr. Julius Greer Clarity (U) CLEAR Normal CLEAR [facility] Comment on above: Performed By: #### C BCMAN #### [facility] [address] [place] [address] Dr. Julius Greer Color (U) DK. ORANGE Abnormal YELLOW [facility] Comment on above: Performed By: #### C EMETERIO #### [facility] [address] [place] [address] Dr. Julius GRAY A micrscopic examina tion will be performed if indicated. Normal [facility] Comment on above: Performed By: #### C BCMAN #### [facility] [address] [place] [address] Dr. Julius Greer Glucose Ql (U) 500 mg/dl Abnormal NEGATIVE [facility] Comment on above: Performed By: #### C EMETERIO #### [facility] [address] [place] [address] Dr. Julius Greer Hemoglobin Ql (U) LARGE Abnormal NEGATIVE [facility] Comment on above: Performed By: #### C EMETERIO #### [facility] [address] [place] [address] Dr. Julius Greer Ketones Ql (U) 15 mg/dl Abnormal NEGATIVE [facility] Comment on above: Performed By: #### C BCSARITA #### [facility] [address] [place] [address] Dr. Julius Greer LEUKOCYTES SMALL Abnormal NEGATIVE [facility] Comment on above: Performed By: #### C BCSARITA #### [facility] [address] [place] [address] Dr. Julius Greer Nitrite Ql (U) Positive Abnormal NEGATIVE [facility] Comment on above: Performed By: #### C BCSARITA #### [facility] [address] [place] [address] Dr. Julius Greer pH (U) 8.5 [pH] Normal 5-9 [facility] Comment on above: Performed By: #### C EMETERIO #### [facility] [address] [place] [address] Dr. Julius Greer Protein (U) [Mass/Vol] 100 mg/dL Abnormal NEGAT HAYDEE/ TRACE [facility] Comment on above: Performed By: #### C EMETERIO #### [facility] [address] [place] [address] Dr. Julius Greer SPEC GRAVITY 1.020 Normal 1.005-<=1.0 25 [facility] Comment on above: Performed By: #### C EMETERIO #### [facility] [address] [place] [address] Dr. Julius Greer UR MICRO IND INDICATED Normal [facility] Comment on above: Performed By: #### C EMETERIO #### [facility] [address] [place] [address] Dr. Julius Greer Urobilinogen Qn (U) 1.0 {Wilson'U}/dL Normal 0.2 - 1. 0 [facility] Comment on above: Performed By: #### C EMETERIO #### [facility] [address] [place] [address] Dr. Julius Greer LACTATE/LACTIC ACIDon 2021 Lactate [Moles/Vol] 2.3 mmol/L Critically high 0.4-1.9 [facility] Comment on above: Performed By: #### C EMETERIO #### [facility] [address] [place] [address] Dr. Julius Greer Lactate [Moles/Vol] 4.1 mmol/L Critically high 0.4-1.9 [facility] Comment on above: Performed By: #### L ACT #### [facility] [address] [place] [address] Dr. Julius Greer PH VENOUS BLOODon 03-16-2022 PCO2 VENOUS 29.6 mmHg Critically low 40.0-52.0 [facility] Comment on above: Performed By: #### P HVEN #### [facility] [address] [place] [address] Dr. Julius Greer pH VENOUS 7.428 Normal 7.330-7.430 [facility] Comment on above: Performed By: #### P HVEN #### [facility] [address] [place] [address] Dr. Julius Greer POINT OF CARE GLUCOSEon 110 Glucose [Mass/Vol] 314 mg/dL Critically high 74-106 [facility] Comment on above: Performed By: #### P OCGLUC #### [facility] [address] [place] [address] Dr. Julius Greer PROF 14(COMP METB)on 022 Albumin [Mass/Vol] 2.8 g/dL Critically low 3.4-5.0 [facility] Comment on above: Performed By: #### S EDR #### [facility] [address] [place] [address] Dr. Julius Greer Albumin/Globulin [Mass ratio] 0.8 {ratio} Normal [facility] Comment on above: Performed By: #### S EDR #### [facility] [address] [place] [address] Dr. Julius Greer ALP [Catalytic activity/Vol] 80 U/L Normal 46-116 [facility] Comment on above: Performed By: #### S EDR #### [facility] [address] [place] [address] Dr. Julius Greer ALT [Catalytic activity/Vol] 14 U/L Critically low 16-63 [facility] Comment on above: Performed By: #### S EDR #### [facility] [address] [place] [address] Dr. Julius Greer Anion gap [Moles/Vol] 14.7 mmol/L Normal [facility] Comment on above: Performed By: #### S EDR #### [facility] [address] [place] [address] Dr. Julius Greer AST [Catalytic activity/Vol] 20 U/L Normal 15-37 [facility] Comment on above: Performed By: #### S EDR #### [facility] [address] [address] [address] Julius Greer Bilirubin [Mass/Vol] 0.6 mg/dL Normal 0.2-1.0 [facility] Comment on above: Performed By: #### S EDR #### [facility] [address] [address] [address] Julius Greer Calcium [Mass/Vol] 8.5 mg/dL Normal 8.5-10.1 [facility] Comment on above: Performed By: #### S EDR #### [facility] [address] [address] [address] Julius Greer Chloride [Moles/Vol] 96 mmol/L Critically low 98-107 [facility] Comment on above: Performed By: #### S EDR #### [facility] [address] [address] [address] Julius Greer CO2 [Moles/Vol] 19.7 mmol/L Critically low 21.0-32.0 [facility] Comment on above: Performed By: #### S EDR #### [facility] [address] [address] [address] Julius Greer Creatinine [Mass/Vol] 1.26 mg/dL Normal 0.70-1.30 [facility] Comment on above: Performed By: #### S EDR #### [facility] [address] [address] [address] Julius Greer EGFR-AF ZIMBABWEAN >60 Normal >=60 [facility] Comment on above: Performed By: #### S EDR #### [facility] [address] [address] [address] Julius Greer EGFR-NON AF ZIMBABWEAN 56 mL/min/1.73m2 Critically low >=60 [facility] Comment on above: Performed By: #### S EDR #### [facility] [address] [address] [address] Julius Greer Globulin (S) [Mass/Vol] 3.6 g/dL Normal [facility] Comment on above: Performed By: #### S EDR #### [facility] [address] [address] [address] Julius Greer Glucose [Mass/Vol] 311 mg/dL Critically high 74-106 T [facility] Comment on above: Performed By: #### S EDR #### [facility] [address] [address] [address] Julius Greer Potassium [Moles/Vol] 3.4 mmol/L Critically low 3.5-5.1 [facility] Comment on above: Performed By: #### S EDR #### [facility] [address] [address] [address] Julius Greer Protein [Mass/Vol] 6.4 g/dL Normal 6.4-8.2 [facility] Comment on above: Performed By: #### S EDR #### [facility] [address] [address] [address] Julius Greer Sodium [Moles/Vol] 127 mmol/L Critically low 136-145 [facility] Comment on above: Performed By: #### S EDR #### [facility] [address] [address] [address] Julius Greer Urea nitrogen [Mass/Vol] 19.0 mg/dL Critically high 7.0-18.0 [facility] Comment on above: Performed By: #### S EDR #### [facility] [address] [address] [address] Julius Greer Urea nitrogen/Creatinine [Mass ratio] 15.1 mg/mg Normal [facility] Comment on above: Performed By: #### S EDR #### [facility] [address] [address] [address] Julius Greer PROTIMEon 03-16-2022 INR Coag (PPP) [Relative time] 1.38 {INR} [facility] Comment on above: Performed By: #### P T, PTT #### [facility] [address] [address] [address] Julius Greer INR GUIDELINES SEE BELOW Normal [facility] Comment on above: Result Comment: PETROS RED INR: 2.0 - 3.0 CONDITIONS NOT LISTED BELOW 2.5 - 3.5 FOR PROSTHETIC HEART VALVE REPLACEMENT 2.5 - 3.5 RECURRENT THROMBOSIS Performed By: #### P T, PTT #### [facility] [address] [place] [address] Dr. Julius Greer PT Coag (PPP) [Time] 14.6 s Critically high 9.0-11.6 [facility] Comment on above: Performed By: #### P T, PTT #### [facility] [address] [place] [address] Dr. Julius Greer PTTon 03-16-2022 aPTT Coag (Bld) [Time] 36.2 s Normal 22.3-36.2 [facility] Comment on above: Performed By: #### P T, PTT #### [facility] [address] [place] [address] Dr. Julius Greer SED RATE WESTERGRENon 2021 SED RATE 62 mm/hr Critically high <=20 [facility] Comment on above: Performed By: #### S EDR #### [facility] [address] [place] [address] Dr. Julius Greer TROPONIN, HIGH SENSITIVITYon 03-16-2022 HSTROP 651.3 pg/mL Critically high 4.0-76.1 [facility] Comment on above: Result Comment: CUT- OFF POINTS HAVE BEEN ESTABLISHED BASED ON THE FOURTH UNIVERSAL DEFINITIONS OF MYOCARDIAL INFARCTION. THE UPPER REFERENCE LIMIT (URL) OF TROPONIN, DEFINED THE 99TH PERCENTILE OF cTnI DISTRIBUTION IN A REFERENCE POPULATION, HAS BEEN CONFIRMED THE DECISION THRESHOLD FOR PR DIAGNOSIS. Performed By: #### S EDR #### [facility] [address] [place] [address] Dr. Julius Greer URINE MICROSCOPIC ONLYon BACTERIA TRACE Abnormal NONE SEEN [facility] Comment on above: Performed By: #### C BCMAN #### [facility] [address] [place] [address] Dr. Julius Greer Bacteria identified Cx Nom (U) INDICATED Normal [facility] Comment on above: Performed By: #### C BCMAN #### [facility] [address] [place] [address] Dr. Julius Greer CAST SEEN Abnormal NONE SEEN [facility] Comment on above: Performed By: #### C BCMAN #### [facility] [address] [place] [address] Dr. Julius Greer Crystals LM Nom (Urine sed) NONE SEEN Normal NONE SEEN [facility] Comment on above: Performed By: #### C BCMAN #### [facility] [address] [place] [address] Dr. Julius Greer Epithelial cells LM Ql (Urine sed) FEW Abnormal NONE SEEN /RARE [facility] Comment on above: Performed By: #### C BCMAN #### [facility] [address] [place] [address] Dr. Julius Greer HYALINE CAST RARE Normal [facility] Comment on above: Performed By: #### C BCMAN #### [facility] [address] [place] [address] Dr. Julius Greer MUCOUS NONE SEEN Normal NONE SEEN [facility] Comment on above: Performed By: #### C BCMAN #### [facility] [address] [place] [address] Dr. Julius Greer RBC 0-2 Normal 0-2 [facility] Comment on above: Performed By: #### C BCMAN #### [facility] [address] [place] [address] Dr. Julius Greer XR CHEST 1 Von [...] Marc SHEARER Date: 2022-03-16 20:19 Normal [facility] CT ABD/PELV WO W CONon 03-06 CT [...] by: OLIVIA SERRANO Date: 2022-03-06 07:43 Normal [facility] CREATININEon 03-03-2022 Creatinine [Mass/Vol] 0.83 mg/dL Normal 0.70-1.30 [facility] Comment on above: Performed By: #### C STU #### [facility] [address] [place] [address] Dr. Julius Greer EGFR-AF ZIMBABWEAN >60 Normal >=[address] [facility] Comment on above: Performed By: #### C STU #### [facility] [address] [address] [address] Julius Greer EGFR-NON AF ZIMBABWEAN >60 Normal >=60 [facility] Comment on above: Performed By: #### C STU #### [facility] [address] [place], [place] [address] Dr. Julius Greer PTon 12-16-2021 INR Coag (PPP) [Relative time] 1.5 {INR} Normal [facility] Comment on above: Result Comment: Non-therapeutic Range: INR = 0.9-1.2 Therapeutic Range: Moderate Anticoagulant Intensity: INR = 2.0-3.0 High Anticoagulant Intensity: INR = 2.5-3.5 Performed By: #### P T #### [facility] [address] [place] [address] [employer]: Michael Méndez MD PT Coag (PPP) [Time] 17.9 s High 11.5-14.2 [facility] Comment on above: Performed By: #### P T #### [facility] [address] [place] [address] Dr. [address] [id number] [employer]: Michael Méndez MD Hemoglobin A1Con 12-02-2021 Glucose [Mass/Vol] 189 mg/dL Normal [facility] Comment on above: Result Comment: The ADA and AACC recommend providing the estimated average glucose result to permit better patient understanding of their HBA1c result. Performed By: #### L IPR, GLYHGB, PSAS #### [address] [id number] [employer]: Perico Murray MD #### CP, CDP #### [facility] [address] [place] [address] [employer]: Michael Méndez MD HbA1c (Bld) [Mass fraction] 8.2 % High 4.0-6.0 [facility] Comment on above: Performed By: #### L IPR, GLYHGB, PSAS #### [address] [id number] [employer]: Perico Murray MD #### CP, CDP #### [facility] [address] [place] [address] [employer]: Michael Méndez MD CBC with Auto Differentialon 12-01-2021 Absolute Eos # 0.06 [facility] Absolute Immature Granulocyte [facility] Absolute Lymph # 1.87 [facility] Absolute [place] # 0.71 [facility] Basophils Absolute [facility] Basophils/100 WBC (Bld) 0 % 0 [...] 10*6/uL Low 4.21 - 5.7 7 m/uL [facility] Segmented neutrophils/100 WBC (Bld) 69 % High 36 - 65 % [facility] Segs Absolute 6.02 [facility] WBC (Bld) [#/Vol] 8.7 10*3/uL [facility] CBC with Diffon 12-01-2021 Abs. Basophil <0.03 Normal 0.00-0.20 [facility] Comment on above: Performed By: #### L IPR, GLYHGB, PSAS #### [address] [address] [employer]: Perico Murray MD #### CP, CDP #### [facility] [address] [place] [address] [place] [address] [employer]: Michael Méndez MD Abs.Imm.Granulocyte <0.03 Normal 0.00-0.30 [facility] Comment on above: Performed By: #### L IPR, GLYHGB, PSAS #### [address] [address] [employer]: Perico Murray MD #### CP, CDP #### [address] [place] [phone] [employer]: Michael Méndez MD Abs.Neutrophil (Seg) 6.02 k/uL Normal 1.50-8.10 [facility] Comment on above: Performed By: #### L IPR, GLYHGB, PSAS #### [address] [address] [employer]: Perico Murray MD #### CP, CDP #### [facility] [address] [place] [address] [place] [address] [employer]: Michael Méndez MD Basophils/100 WBC (Bld) 0 % Normal 0-2 [facility] Comment on above: Performed By: #### L IPR, GLYHGB, PSAS #### [address] [id number] [employer]: Perico Murray MD #### CP, CDP #### [address] [place] [address] [employer]: Michael Méndez MD Eosinophils (Bld) [#/Vol] 0.06 10*3/uL Normal 0.00-0.44 [facility] Comment on above: Performed By: #### L IPR, GLYHGB, PSAS #### [address] [id number] [employer]: Perico Murray MD #### CP, CDP #### [address] [place] [address] [employer]: Michael Méndez MD Eosinophils/100 WBC (Bld) 1 % Normal 1-4 [facility] Comment on above: Performed By: #### L IPR, GLYHGB, PSAS #### [address] [id number] [employer]: Perico Murray MD #### CP, CDP #### [address] [place] [address] [employer]: Michael Méndez MD Erythrocyte distribution width (RBC) [Ratio] 12.4 % Normal 11.8-14.4 [facility] Comment on above: Performed By: #### L IPR, GLYHGB, PSAS #### [address] [phone] [employer]: Perico Murray MD #### CP, CDP #### [address] [place] [address] [employer]: Michael Méndez MD Hematocrit (Bld) [Volume fraction] 36.5 % Low 40.7-50.3 [facility] Comment on above: Performed By: #### L IPR, GLYHGB, PSAS #### [address] [address] [employer]: Perico Murray MD #### CP, CDP #### [address] [place] [address] [employer]: Michael Méndez MD Hemoglobin (Bld) [Mass/Vol] 12.0 g/dL Low 13.0-17.0 [facility] Comment on above: Performed By: #### L IPR, GLYHGB, PSAS #### [address] [address] [employer]: Perico Murray MD #### CP, CDP #### [address] [place] [address] [employer]: Michael Méndez MD Immature granulocytes/100 WBC (Bld) 0 % Normal 0 [facility] Comment on above: Performed By: #### L IPR, GLYHGB, PSAS #### [address] [address] [employer]: Perico Murray MD #### CP, CDP #### [address] [place] [phone] [employer]: Michael Méndez MD Lymphocytes (Bld) [#/Vol] 1.87 10*3/uL Normal 1.10-3.70 [facility] Comment on above: Performed By: #### L IPR, GLYHGB, PSAS #### [address] [address] [employer]: Perico Murray MD #### CP, CDP #### [address] [place] [address] [employer]: Michael Méndez MD Lymphocytes/100 WBC (Bld) 22 % Low 24-43 [facility] Comment on above: Performed By: #### L IPR, GLYHGB, PSAS #### [address] [address] [employer]: Perico Murray MD #### CP, CDP #### [address] [place], [place] [phone] [employer]: Michael Méndez MD MCH (RBC) [Entitic mass] 30.6 pg Normal 25.2-33.5 [facility] Comment on above: Performed By: #### L IPR, GLYHGB, PSAS #### [address] [address] [employer]: Perico Murray MD #### CP, CDP #### [address] [place] [phone] [employer]: Michael Méndez MD MCHC (RBC) [Mass/Vol] 32.9 g/dL Normal 28.4-34.8 [facility] Comment on above: Performed By: #### L IPR, GLYHGB, PSAS #### [address] [address] [employer]: Perico Murray MD #### CP, CDP #### [address] [place] [phone] [employer]: Michael Méndez MD MCV (RBC) [Entitic vol] 93.1 fL Normal 82.6-102.9 [facility] Comment on above: Performed By: #### L IPR, GLYHGB, PSAS #### [address] [address] [employer]: Perico Murray MD #### CP, CDP #### [address] [place] [address] [employer]: Michael Méndez MD Monocytes (Bld) [#/Vol] 0.71 10*3/uL Normal 0.10-1.20 [facility] Comment on above: Performed By: #### L IPR, GLYHGB, PSAS #### [address] [address] [employer]: Perico Murray MD #### CP, CDP #### [facility] [address] [place], [place] [phone] [employer]: Mihcael Méndez MD Monocytes/100 WBC (Bld) 8 % Normal 3-12 [facility] Comment on above: Performed By: #### L IPR, GLYHGB, PSAS #### [address] [address] [employer]: Perico Murray MD #### CP, CDP #### [address] [place], [place] [phone] [employer]: Michael Méndez MD Neutrophil (Seg) 69 % High 36-65 [facility] Comment on above: Performed By: #### L IPR, GLYHGB, PSAS #### [address] [address] [employer]: Perico Murray MD #### CP, CDP #### [address] [place], [place] [phone] [employer]: Michael Méndez MD NRBC Automated 0.0 per 100 WBC Normal 0.0 [facility] Comment on above: Performed By: #### L IPR, GLYHGB, PSAS #### [address] [address] [employer]: Perico Murray MD #### CP, CDP #### [address] [place], [place] [phone] [employer]: Michael Méndez MD Platelet mean volume (Bld) [Entitic vol] 9.1 fL Normal 8.1-13.5 [facility] Comment on above: Performed By: #### L IPR, GLYHGB, PSAS #### [facility] [address] [place] [address] [employer]: Perico Murray MD #### CP, CDP #### [address] [place] [address] [employer]: Michael Méndez MD Platelets (Bld) [#/Vol] 204 10*3/uL Normal 138-453 [facility] Comment on above: Performed By: #### L IPR, GLYHGB, PSAS #### [address] [address] [employer]: Perico Murray MD #### CP, CDP #### [address] [place] [address] [employer]: Michael Méndez MD RBC (Bld) [#/Vol] 3.92 10*6/uL Low 4.21-5.77 [facility] Comment on above: Performed By: #### L IPR, GLYHGB, PSAS #### [address] [address] [employer]: Perico Murray MD #### CP, CDP #### [address] [place] [address] [employer]: Michael Méndez MD WBC (Bld) [#/Vol] 8.7 10*3/uL Normal 3.5-11.3 [facility] Comment on above: Performed By: #### L IPR, GLYHGB, PSAS #### [facility] [address] [place] [address] [employer]: Perico Murray MD #### CP, CDP #### [facility] [address] [place] [address] [place] [address] [employer]: Michael Médnez MD Comp Metabolic Profon 2021 (cont.) [facility] Comment on above: Result Comment: Aver age GFR for 70 or more years old: 75 mL/min/1.73sq m Chronic Kidney Disease: <60 mL/min/1.73sq m Kidney failure: <15 mL/min/1.73sq m eGFR calculated using average adult body mass. Additional eGFR calculator available at: http://[email or web address]_crcl_2012.htm Performed By: #### L IPR, GLYHGB, PSAS #### [address] [address] [employer]: Perico Murray MD #### CP, CDP #### [facility] [address] [place] [address] Dr[address] [place], [place] [phone] [employer]: Michael Méndez MD Albumin [Mass/Vol] 3.7 g/dL Normal 3.5-5.2 [facility] Comment on above: Performed By: #### L IPR, GLYHGB, PSAS #### [address] [address] [employer]: Perico Murray MD #### CP, CDP #### [address] [place] [phone] [employer]: Michael Méndez MD Albumin/Glob Ratio 1.4 Normal 1.0-2.5 [facility] Comment on above: Performed By: #### L IPR, GLYHGB, PSAS #### [address] [address] [employer]: Perico Murray MD #### CP, CDP #### [facility] [address] [place] [address] [address]. [place] [phone] Production Wood Craftsman: Michael Méndez MD Alkaline Phos 77 U/L Normal 40-129 [facility] Comment on above: Performed By: #### L IPR, GLYHGB, PSAS #### [address] [address] Production [employer] Craftsman: Perico Murray MD #### CP, CDP #### [facility] [address] [place], [place] [phone] Production Wood Craftsman: Michael Méndez MD ALT [Catalytic activity/Vol] 15 U/L Normal 5-41 [facility] Comment on above: Performed By: #### L IPR, GLYHGB, PSAS #### [address] [address] Production Wood Craftsman: Perico Murray MD #### CP, CDP #### [facility] [address] [place] [phone] Production Wood Craftsman: Michael Méndez MD Anion gap [Moles/Vol] 11 mmol/L Normal 9-17 [facility] Comment on above: Performed By: #### L IPR, GLYHGB, PSAS #### [address] [address] Production [employer] Craftsman: Perico Murray MD #### CP, CDP #### [facility] [address] [place] [address] [place]. [place] [phone] Production Wood Craftsman: Michael Méndez MD AST [Catalytic activity/Vol] 14 U/L Normal <40 [facility] Comment on above: Performed By: #### L IPR, GLYHGB, PSAS #### [address] [address] Production [employer] Craftsman: Perico Murray MD #### CP, CDP #### [address] [place] [address] Production Wood Craftsman: Michael Méndez MD Bilirubin [Mass/Vol] 0.35 mg/dL Normal 0.3-1.2 [facility] Comment on above: Performed By: #### L IPR, GLYHGB, PSAS #### [address] [address] Production [employer] Craftsman: Perico Murray MD #### CP, CDP #### [facility] [address] [place], [place] [phone] Production Wood Craftsman: Michael Méndez MD BUN/CRE Ratio 18 Normal 9-20 [facility] Comment on above: Performed By: #### L IPR, GLYHGB, PSAS #### [address] [address] Production Wood Craftsman: Perico Murray MD #### CP, CDP #### [facility] [address] [place], [place] [phone] Production Wood Craftsman: Michael Méndez MD Calcium [Mass/Vol] 8.8 mg/dL Normal 8.6-10.4 [facility] Comment on above: Performed By: #### L IPR, GLYHGB, PSAS #### [address] [address] Production Wood Craftsman: Perico Murray MD #### CP, CDP #### [facility] [address] [place], [place] [phone] Production Wood Craftsman: Michael Méndez MD Chloride [Moles/Vol] 102 mmol/L Normal 98-107 [facility] Comment on above: Performed By: #### L IPR, GLYHGB, PSAS #### [address] [address] Production Wood Craftsman: Perico Murray MD #### CP, CDP #### [facility] [address] [place], [place] [phone] Production Wood Craftsman: Michael Méndez MD CO2 [Moles/Vol] 25 mmol/L Normal 20-31 [facility] Comment on above: Performed By: #### L IPR, GLYHGB, PSAS #### [address] [address] Production Wood Craftsman: Perico Murray MD #### CP, CDP #### [address] [place], [place] [phone] Production Wood Craftsman: Michael Méndez MD Creatinine [Mass/Vol] 0.74 mg/dL Normal 0.70-1.20 [facility] Comment on above: Performed By: #### L IPR, GLYHGB, PSAS #### [address] [address] Production Wood Craftsman: Perico Murray MD #### CP, CDP #### [address] [place], [place] [id number] Production Wood Craftsman: Michael Méndez MD GFR, Amer >60 Normal >60 [facility] Comment on above: Performed By: #### L IPR, GLYHGB, PSAS #### [address] [address] Production Wood Craftsman: Perico Murray MD #### CP, CDP #### [address] [place], [place] [phone] Production Wood Craftsman: Michael Méndez MD GFR,non Amer >60 Normal >60 [facility] Comment on above: Performed By: #### L IPR, GLYHGB, PSAS #### [address] [address] Production Wood Craftsman: Perico Murray MD #### CP, CDP #### [address] [place], [place] [phone] Production Wood Craftsman: Michael Méndez MD Glucose [Mass/Vol] 182 mg/dL High 70-99 [facility] Comment on above: Performed By: #### L IPR, GLYHGB, PSAS #### [address] [address] Production Wood Craftsman: Perico Murray MD #### CP, CDP #### [address] [place], [place] [phone] Production Wood Craftsman: Michael Méndez MD Potassium [Moles/Vol] 4.3 mmol/L Normal 3.7-5.3 [facility] Comment on above: Performed By: #### L IPR, GLYHGB, PSAS #### [address] [phone] Production Wood Craftsman: Perico Murray MD #### CP, CDP #### [address] [place], [place] [phone] Production Wood Craftsman: Michael Méndez MD Protein [Mass/Vol] 6.4 g/dL Normal 6.4-8.3 [facility] Comment on above: Performed By: #### L IPR, GLYHGB, PSAS #### [address] 1887[address] Production [employer] Craftsman: Perico Murray MD #### CP, CDP #### [address] [place], [place] [phone] Production Wood Craftsman: Michael Méndez MD Sodium [Moles/Vol] 138 mmol/L Normal 135-144 [facility] Comment on above: Performed By: #### L IPR, GLYHGB, PSAS #### [address] [phone] Production Wood Craftsman: Perico Murray MD #### CP, CDP #### [address] [place], [place] [phone] Production Wood Craftsman: Michael Méndez MD Staging: Normal [facility] Comment on above: Result Comment: Stag e 1: Some kidney damage normal GFR Stage 2: Mild kidney damage GFR 60-89 Stage 3: Moderate kidney damage GFR 30-59 Stage 4: Severe kidney damage GFR 15-29 Stage 5: Severe kidney damage GFR <15 ESRD - chronic treatment by dialysis or transplant Performed By: #### L IPR, GLYHGB, PSAS #### [address] [place], [place] 1903[address] Production Wood Craftsman: Perico Murray MD #### CP, CDP #### [facility] [address] [place] [address] Production Wood Craftsman: Michael Méndez MD Urea nitrogen [Mass/Vol] 13 mg/dL Normal 8-23 [facility] Comment on above: Performed By: #### L IPR, GLYHGB, PSAS #### [facility] [address] [place], [place] [phone] Production Wood Craftsman: Perico Murray MD #### CP, CDP #### [facility] [address] [place] [address] Production Wood Craftsman: Michael Méndez MD Comprehensive Metabolic Pane [facility] 12-01-2021 Albumin [Mass/Vol] 3.7 g/dL 3.5 - [...] (Bld) [Mass ratio] 18 9 - 20 [facility] Laboratory - Chemistry and C hemistry - challengeon 12-01-2021 GFR/1.73 sq M.predicted MDRD (S/P/Bld) [Vol rate/Area] [facility] Comment on above: Average GFR for 70 o r more years old: 75 mL/min/1.73sq m Chronic Kidney Disease: <60 mL/min/1.73sq m Kidney failure: <15 mL/min/1.73sq m eGFR calculated using average adult body mass. Additional eGFR calculator available at: http://www.Jibbigo/multiple_crcl_2012.htm Stage 1: Some kidney damage normal GFR [...] 12-01-2021 Cholesterol [Mass/Vol] 79 mg/dL Normal <200 [facility] Comment on above: Result Comment: Cholesterol Guidelines: <200 Desirable 200-240 Borderline >240 Undesirable Performed By: #### L IPR, GLYHGB, PSAS #### [address] [address] Production Wood Craftsman: Perico Murray MD #### CP, CDP #### [facility] [address] [place] [phone] Production Wood Craftsman: Michael Méndez MD Cholesterol in HDL [Mass/Vol] 30 mg/dL Low >40 [facility] Comment on above: Result Comment: HDL Guidelines: <40 Undesirable 40-59 Borderline >59 Desirable Performed By: #### L IPR, GLYHGB, PSAS #### [address] [address] Production Wood Craftsman: Perico Murray MD #### CP, CDP #### [facility] [address] [place] [phone] Production Wood Craftsman: Michael Méndez MD Cholesterol in LDL [Mass/Vol] 29 mg/dL Normal 0-130 [facility] Comment on above: Result Comment: LDL Guidelines: <100 Desirable 100-129 Near to/above Desirable 130-159 Borderline >159 Undesirable Direct (measured) LDL and calculated LDL are not interchangeable tests. Performed By: #### L IPR, GLYHGB, PSAS #### [place] [address] [place] [address] Production Wood Craftsman: Perico Murray MD #### CP, CDP #### [address] [place], [place] [phone] Production Wood Craftsman: Michael Méndez MD Cholesterol.total/Chol esterol in HDL [Mass ratio] 2.6 {ratio} Normal <5 [facility] Comment on above: Performed By: #### L IPR, GLYHGB, PSAS #### [address] [address] Production Wood Craftsman: Perico Murray MD #### CP, CDP #### [address] [place], [place] [phone] Production Wood Craftsman: Michael Méndez MD Triglyceride [Mass/Vol] 100 mg/dL Normal <150 [facility] Comment on above: Result Comment: Triglyceride Guidelines: <150 Desirable 150-199 Borderline 200-499 High >499 Very high Based on AHA Guidelines for fasting triglyceride, February 2012. Performed By: #### L IPR, GLYHGB, PSAS #### [address] [address] Production Wood Craftsman: Perico Murray MD #### CP, CDP #### [address] [place], [place] [phone] Production Wood Craftsman: Michael Méndez MD PSA Screeningon 12-01-2021 [facility] PSA, Screeningon 12-01-2021 Prostatic Spec. Ag 1.23 ng/mL Normal <4.1 [facility] Comment on above: Result Comment: The sliceX ECLIA assay is used. Results obtained with different assay methods cannot be used interchangeably. Performed By: #### L IPR, GLYHGB, PSAS #### [address] [address] Production Wood Craftsman: Perico Murray MD #### CP, CDP #### [facility] [address] [place] [address] Production Wood Craftsman: Michael Méndez MD Otolaryngology Office/Clinic Noteon 07-05-2021 [...] smoker, quit (more content not included)... Normal [facility] Otolaryngology Office/Clinic Noteon 06-14-2021 Otolaryngology Office/Clinic Note [...] bolster removed. Left FTSG with good take. [place] incision healing well. Nose: External nasal dorsum [...] 500 unit (more content not included)... Normal [facility] Operative Reporton 2 Operative Report Operative Report [...] wound defe (more content not included)... Normal [facility] POC Glucose Randomon 022 Glucose [Mass/Vol] 154 mg/dL High 70-[address] [facility] Comment on above: Performed By: #### C [id number] #### [facility] [address] [place] [address] Glucose [Mass/Vol] 184 mg/dL High 70-[address] [facility] Comment on above: Performed By: #### C [id number] #### [place] [address] [place] [address] Glucose [Mass/Vol] 207 mg/dL High 70-[address] [facility] Comment on above: Performed By: #### C [id number] #### [address] [place] [address] CoV2 Agon 06-08-2021 Employed in healthcare? Unknown Normal [facility] Comment on above: Performed By: #### P TINR #### [address] [place] [address] Group care resident? Unknown Normal [facility] Comment on above: Performed By: #### P TINR #### [address] [place] [address] In ICU? Unknown Normal [facility] Comment on above: Performed By: #### P TINR #### [address] [place] [address] status? Unknown Normal [facility] Comment on above: Performed By: #### P TINR #### [address] [place] [address] SARS-CoV-2 (COVID-19) RNA RAYMON+probe Ql (Unsp spec) Negative Normal Negative [facility] Comment on above: Result Comment: Nega tive [...] COVID-19. ADDITIONAL INFORMATION: Testing performed on the eXpresso 3600 using the SARS-CoV-2 Antigen test. Results are for the identification of SARS-CoV-2 nucleocapsid antigen. The [employer] SARS-CoV-2 Antigen test can detect both viable [...] Administration?s Emergency Use Authorization. HCP Fact Sheet: https://www.fda.gov/media/376547/download Patient Fact Sheet: https://www.fda.gov/media/268715/download Performed By: #### P TINR #### [place] [address] SARS-CoV-2 (COVID-19) RNA RAYMON+probe Ql (Unsp spec) Unknown Normal [facility] Comment on above: Performed By: #### P TINR #### [place] [address] Symptomatic as defined by CDC? Unknown Normal [facility] Comment on above: Performed By: #### P TINR #### [place] [id number] .eGFRon 05-27-2021 eGFR Non-AA >60 Normal >=60 [facility] Comment on above: Result Comment: Stag es [...] years Performed By: #### E GFR #### [address] [address] eGFR AA >60 Normal >=60 [facility] Comment on above: Result Comment: See comment. Performed By: #### E GFR #### [address] [address] Basic Metabolic Profileon Anion gap [Moles/Vol] 13 mmol/L Normal 7-17 [facility] Comment on above: Performed By: #### P TINR #### [address] [address] Calcium [Mass/Vol] 9.0 mg/dL Normal 8.5-10.[address] [facility] Comment on above: Performed By: #### P TINR #### [address] [address] Chloride [Moles/Vol] 103 mmol/L Normal 98-110 [facility] Comment on above: Performed By: #### P TINR #### [address] [address] CO2 [Moles/Vol] 26 mmol/L Normal 22-32 [facility] Comment on above: Performed By: #### P TINR #### [address] [address] Creatinine [Mass/Vol] 0.91 mg/dL Normal 0.61-1.24 [facility] Comment on above: Performed By: #### P TINR #### [address] [address] Glucose [Mass/Vol] 193 mg/dL High 70-[address] [facility] Comment on above: Performed By: #### P TINR #### [address] [address] Potassium [Moles/Vol] 3.9 mmol/L Normal 3.4-4.8 [facility] Comment on above: Performed By: #### P TINR #### [address] [address] Sodium [Moles/Vol] 138 mmol/L Normal 133-[address] [facility] Comment on above: Performed By: #### P TINR #### [address] [address] Urea nitrogen [Mass/Vol] 14 mg/dL Normal 8-26 [facility] Comment on above: Performed By: #### P TINR #### [address] [address] Urea nitrogen/Creatinine [Mass ratio] 15.4 mg/mg Normal 10.0-20.0 [facility] Comment on above: Performed By: #### P TINR #### [address] [address] CBC w/ Diffon 05-27-2021 Erythrocyte distribution width (RBC) [Ratio] 12.8 % Normal 11.6-14.8 [facility] Comment on above: Performed By: #### C BC #### [address] [address] Hematocrit (Bld) [Volume fraction] 42.6 % Normal 41.0-53.0 [facility] Comment on above: Performed By: #### C BC #### [address] [address] Hemoglobin (Bld) [Mass/Vol] 14.4 g/dL Normal 13.5-17.5 [facility] Comment on above: Performed By: #### C BC #### [address] [address] MCH (RBC) [Entitic mass] 30.2 pg Normal 27.0-35.0 [facility] Comment on above: Performed By: #### C BC #### [address] [address] MCHC 33.7 % Normal 31.0-37.0 [facility] Comment on above: Performed By: #### C BC #### [facility] [address] [place] [address] MCV (RBC) [Entitic vol] 89.8 fL Normal 80.0-100.0 [facility] Comment on above: Performed By: #### C BC #### [facility] [address] [place] [address] Platelet 190 x10*3/mcL Normal 150-350 [facility] Comment on above: Performed By: #### C BC #### [address] [address] Platelet mean volume (Bld) [Entitic vol] 6.7 fL Normal 6.7-10.6 [facility] Comment on above: Performed By: #### C BC #### [address] [address] RBC 4.75 x10*6/mcL Normal 4.30-5.80 [facility] Comment on above: Performed By: #### C BC #### [address] [address] WBC 7.7 x10*3/mcL Normal 4.5-11.0 [facility] Comment on above: Performed By: #### C BC #### [address] [address] Diff Autoon 05-27-2021 Baso Absolute 0.0 x10*3/mcL Normal 0.0-0.2 [facility] Comment on above: Performed By: #### P TINR #### [address] [address] Basophils/100 WBC (Bld) 0.1 % Normal 0.0-1.2 [facility] Comment on above: Performed By: #### P TINR #### [address] [address] Eos Absolute 0.1 x10*3/mcL Normal 0.0-0.4 [facility] Comment on above: Performed By: #### P TINR #### [address] [address] Eosinophils/100 WBC (Bld) 0.7 % Normal 0.0-6.1 [facility] Comment on above: Performed By: #### P TINR #### [address] [address] Lymph Absolute 2.1 x10*3/mcL Normal 1.0-4.8 [facility] Comment on above: Performed By: #### P TINR #### [address] [address] Lymphocytes/100 WBC (Bld) 26.7 % Low 27.2-40.8 [facility] Comment on above: Performed By: #### P TINR #### [address] [address] [place] Absolute 0.6 x10*3/mcL Normal 0.3-1.1 [facility] Comment on above: Performed By: #### P TINR #### [address] [address] Monocytes/100 WBC (Bld) 7.9 % Normal 4.7-13.9 [facility] Comment on above: Performed By: #### P TINR #### [address] [address] Neutro Absolute 5.0 x10*3/mcL Normal 1.8-7.[address] [facility] Comment on above: Performed By: #### P TINR #### [address] [address] Neutro Auto 64.6 % Normal 47.2-70.8 [facility] Comment on above: Performed By: #### P TINR #### [address] [address] Hgb A1con 05-27-2021 Glucose [Mass/Vol] 192 mg/dL High 68-[address] [facility] Comment on above: Result Comment: Math ematical Calc approx. The mean gluc equivalency of A1c Performed By: #### P TINR #### [address] [address] Hgb A1c 8.3 % A1c High 4.0-5.6 [facility] Comment on above: Result Comment: Refe rence Range: 4.0 - 5.6 % Normal 5.7 - 6.4 % Pre-Diabetes > 6.5 % Diabetes Performed By: #### P TINR #### [address] [address] PTon 05-27-2021 INR Coag (PPP) [Relative time] 1.1 {INR} Normal <=3.5 [facility] Comment on above: Result Comment: INR has no normal range. INR Therapeutic range is: 2.0-3.0 (AF, CVA, TIAs, DVT prophylaxis, acute DVT) 2.5-3.5 ([facility] heart valves, recurrent thrombosis/emboli) Performed By: #### P TINR #### [address] [address] PT Coag (PPP) [Time] 11.3 s Normal 9.4-12.1 [facility] Comment on above: Performed By: #### P TINR #### [address] [address] PTTon 05-27-2021 aPTT Coag (Bld) [Time] 22.5 s Normal 20.2-27.0 [facility] Comment on above: Performed By: #### P TT #### [address] [address] XR Chest 2 Viewson 2 XR Chest [...] Electronically Signed in Other Vendor System) Normal [facility] Otolaryngology Office/Clinic Noteon 05-19-2021 Otolaryngology Office/Clinic Note [...] Villagomez MD, Chi 05/19/21 15:56 EST Normal [facility] CBC Auto DifferentialOrdered By: Mary Beth Pitts on 09-27-2020 Absolute Eos # 0.04 [facility] Work Phone: Absolute Immature Granulocyte 0.04 [employer] Work Phone: Absolute Lymph # 2.63 Robert Applebaum MD [facility] Work Phone: Absolute [place] # 0.68 [facility] Work Phone: Basophils (Bld) [#/Vol] 10*3/uL [employer] Phone: Basophils/100 WBC (Bld) 0 % 0 - 2 % [employer] Phone: Differential Type NOT REPORTED [employer] Phone: Eosinophils/100 WBC (Bld) 0 % Low 1 - 4 % [employer] Phone: Hematocrit (Bld) [Volume fraction] 36.8 % Low 40.7 - 50.3 % [employer] Phone: Hemoglobin.gastrointes tinal spec 1 Ql (Stl) 11.7 g/dL Low 13.0 - 17.0 g/dL [employer] Phone: Immature granulocytes/100 WBC (Bld) 0 % 0 [employer] Phone: Interpretation and review of laboratory results Abnormal [employer] Phone: Lymphocytes/100 WBC (Bld) 27 % 24 - 43 % [employer] Phone: MCH (RBC) [Entitic mass] 30.2 pg 25.2 - 33.5 pg [employer] Phone: MCHC (RBC) [Mass/Vol] 31.8 g/dL 28.4 - 34.8 g/dL [employer] Phone: MCV (RBC) [Entitic vol] 95.1 fL 82.6 - 102.9 fL [employer] Phone: Monocytes/100 WBC (Bld) 7 % 3 - 12 % [employer] Phone: NRBC Automated 0.0 0.0 per 100 WBC [employer] Phone: Platelet distribution width (Bld) [Ratio] 13.5 % 11.8 - 14.4 % [employer] Phone: Platelet Estimate NOT REPORTED [employer] Phone: Platelet mean volume (Bld) [Entitic vol] 8.7 fL 8.1 - 13.5 fL [employer] Phone: Platelets (Bld) [#/Vol] 243 10*3/uL [employer] Phone: RBC (Bld) [#/Vol] 3.87 10*6/uL Low 4.21 - 5.7 7 m/uL [employer] Phone: RBC (Bld) [#/Vol] NOT REPORTED [employer] Phone: Segmented neutrophils/100 WBC (Bld) 66 % High 36 - 65 % [employer] Phone: Segs Absolute 6.35 [employer] Work Phone: WBC (Bld) [#/Vol] 9.8 10*3/uL [employer] Phone: WBC (Bld) [#/Vol] NOT REPORTED [employer] Work Phone: [employer] Work Phone: TIBIA FIBULA LEFTon 04-28-20 20 TIBIA FIBULA LEFT [facility] Department of Radiology [address] [place] [phone] == Patient Name: MARILU DAN : [...] bridging. Electronically signed: Terry Diaz. Transcribed by: [email or web address], User Resident: Electronically Signed by: TERRY DIAZ @ 04/29/2020 01:11 PM Normal [facility] Comment on above: Order Comment: Hardw are Evaluation TIBIA FIBULA LEFTon 03-29-20 20 TIBIA FIBULA LEFT [facility] Department of Radiology [address] [place] [phone] == Patient Name: MARILU DAN : [...] Electronically signed: Katiuska Mo M.D.. Transcribed by: [email or web address], User Resident: Electronically Signed by: KATIUSKA MO @ 03/29/2020 01:27 PM Normal [facility] Comment on above: Order Comment: Hardw are Evaluation TIBIA FIBULA LEFTon 02-23-20 20 TIBIA FIBULA LEFT [facility] Department of Radiology [address] [place] [phone] == Patient Name: MARILU DAN : [...] Electronically signed: Mary Jane Pendleton. Transcribed by: [email or web address], User Resident: Electronically Signed by: MARY JANE PENDLETON @ 02/23/2020 09:46 AM Normal [facility] Comment on above: Order Comment: Hardw are Evaluation VITAMIN D 25-HYDROXYon 02-22 VITAMIN D 25-OH 31.6 ng/mL Normal 30.0-80.0 [facility] Comment on above: Result Comment: >80. 0 Toxicity possible Performed By: #### 3 0728 ####[facility] [place] [address], [facility] BASIC METABOLIC PANELon 10 Calcium [Mass/Vol] 8.7 mg/dL Normal 8.6-10.3 [facility] Comment on above: Order Comment: No: D o not add to previous draw Performed By: #### 8 6002 #### [facility] [address] [place] [address], [facility] Chloride [Moles/Vol] 103 mmol/L Normal 98-107 [facility] Comment on above: Order Comment: No: D o not add to previous draw Performed By: #### 8 6002 #### [facility] [address] [place] [address], [facility] CO2 [Moles/Vol] 25 mmol/L Normal 21-31 [facility] Comment on above: Order Comment: No: D o not add to previous draw Performed By: #### 8 6002 #### [facility] [address] [place] [address], [facility] Creatinine [Mass/Vol] 0.72 mg/dL Normal 0.70-1.30 [facility] Comment on above: Order Comment: No: D o not add to previous draw Performed By: #### 8 6002 #### [facility] [address] [place] [address], [place] GFR/1.73 sq M predicted among blacks MDRD (S/P/Bld) [Vol rate/Area] mL/min/{1.73_m2} Normal >60 [facility] Comment on above: Order Comment: No: D o not add to previous draw Result Comment: Calc ulation may not be valid for patients over 70 years Performed By: #### 8 6002 #### [facility] [address] [place] [address], [place] GFR/1.73 sq M predicted among non-blacks MDRD (S/P/Bld) [Vol rate/Area] mL/min/{1.73_m2} Normal >60 [facility] Comment on above: Order Comment: No: D o not add to previous draw Result Comment: Calc ulation may not be valid for patients over 70 years Performed By: #### 8 6002 #### [facility] [address] [place] [address], [place] Glucose [Mass/Vol] 178 mg/dL High 70-100 [facility] Comment on above: Order Comment: No: D o not add to previous draw Performed By: #### 8 6002 #### [facility] [address] [place] [address], [place] Potassium [Moles/Vol] 4.2 mmol/L Normal 3.5-5.1 [facility] Comment on above: Order Comment: No: D o not add to previous draw Performed By: #### 8 6002 #### [facility] [address] [place] [address], [place] Sodium [Moles/Vol] 136 mmol/L Normal 136-145 [facility] Comment on above: Order Comment: No: D o not add to previous draw Performed By: #### 8 6002 #### [facility] [address] [place] [address], [place] Urea nitrogen [Mass/Vol] 14 mg/dL Normal 7-25 [facility] Comment on above: Order Comment: No: D o not add to previous draw Performed By: #### 8 6002 #### [facility] [address] [place] [id number], [facility] CBC COMPLETE BLOOD COUNTon Erythrocyte distribution width (RBC) [Ratio] 12.3 % Normal 11.5-15.0 [facility] Comment on above: Order Comment: No: D o not add to previous draw Performed By: #### 8 6002 #### [facility] [address] [place] [address], [facility] Hematocrit (Bld) [Volume fraction] 30.8 % Low 39.0-50.0 [facility] Comment on above: Order Comment: No: D o not add to previous draw Performed By: #### 8 6002 #### [facility] [address] [place] [id number], [facility] Hemoglobin (Bld) [Mass/Vol] 10.6 g/dL Low 13.0-17.0 [facility] Comment on above: Order Comment: No: D o not add to previous draw Performed By: #### 8 6002 #### [facility] [address] [place] [id number], [facility] MCH (RBC) [Entitic mass] 30.3 pg Normal 27.0-33.0 [facility] Comment on above: Order Comment: No: D o not add to previous draw Performed By: #### 8 6002 #### [facility] [address] [place] [id number], [facility] MCHC (RBC) [Mass/Vol] 34.4 g/dL Normal 32.0-35.0 [facility] Comment on above: Order Comment: No: D o not add to previous draw Performed By: #### 8 6002 #### [facility] [address] [place] [address], [facility] MCV (RBC) [Entitic vol] 88.0 fL Normal 82.0-98.0 [facility] Comment on above: Order Comment: No: D o not add to previous draw Performed By: #### 8 6002 #### [facility] [address] [place] [id number], [facility] Nucleated RBC/100 WBC (Bld) [Ratio] 0 % Normal 0-0 [facility] Comment on above: Order Comment: No: D o not add to previous draw Performed By: #### 8 6002 #### [facility] [address] [place] [id number], [place] PLAT CNT 153 10*3/uL Normal 150-400 [facility] Comment on above: Order Comment: No: D o not add to previous draw Performed By: #### 8 6002 #### [facility] [address] [place] [id number], [facility] RBC (Bld) [#/Vol] 3.50 10*6/uL Low 4.20-5.70 [facility] Comment on above: Order Comment: No: D o not add to previous draw Performed By: #### 8 6002 #### [facility] [address] [place] [id number], [place] WBC (Bld) [#/Vol] 8.11 10*3/uL Normal 4.00-10.60 [facility] Comment on above: Order Comment: No: D o not add to previous draw Performed By: #### 8 6002 #### [facility] [address] [place] [id number], [facility] Operative Reporton 0 Operative Report MR#: [id number] [facility] Pt. Name: Marilu Dan Room #: [id number] Discharge Date: Birthdate: 1950 OPERATIVE REPORT DATE [...] a 69-year-old male, who initially presented to [facility] Emergency Department with chief complaint of [...] 2 locking screws distally using freehand perfect [place] technique. After the placement of all interlocking [...] Lopez MD Date Trans: 02/14/2020 11:08 A/gomez [id number] Normal [facility] POC GLUCOSE LABon 02-14-2020 Glucose [Mass/Vol] 228 mg/dL High 70-100 [facility] Comment on above: Performed By: #### 8 5499 #### [facility] [address] [facility] [address], [facility] Glucose [Mass/Vol] 169 mg/dL High 70-100 [facility] Comment on above: Performed By: #### 8 5499 #### [facility] [address] [facility]. [address] *MRSA/MSSA DNA NASALon 02-12 *MRSA/MSSA DNA NASAL Clinical Report: (D ) Specimen/Source: NASAL SWAB/NARES Collected: 02/13/2020 14:23 Status: Final Last Updated: 02/17/2020 12:22 MSSA DNA (Final) Negative MRSA DNA (Final) Negative Normal [facility] Comment on above: Performed By: #### 3 1595 #### [facility] [address] [facility] [address], [facility] BASIC METABOLIC PANELon Calcium [Mass/Vol] 9.2 mg/dL Normal 8.6-10.3 [facility] Comment on above: Order Comment: No: D o not add to previous draw Performed By: #### 8 5499 #### [facility] [address] [place] [address], [facility] Chloride [Moles/Vol] 102 mmol/L Normal 98-107 [facility] Comment on above: Order Comment: No: D o not add to previous draw Performed By: #### 8 5499 #### [facility] [address] [place] [address], [place] CO2 [Moles/Vol] 29 mmol/L Normal 21-31 [facility] Comment on above: Order Comment: No: D o not add to previous draw Performed By: #### 8 5499 #### [facility] [address] [place] [address], [place] Creatinine [Mass/Vol] 0.71 mg/dL Normal 0.70-1.30 [facility] Comment on above: Order Comment: No: D o not add to previous draw Performed By: #### 8 5499 #### [facility] [address] [place] [address], [place] GFR/1.73 sq M predicted among blacks MDRD (S/P/Bld) [Vol rate/Area] mL/min/{1.73_m2} Normal >60 [facility] Comment on above: Order Comment: No: D o not add to previous draw Result Comment: Calc ulation may not be valid for patients over 70 years Performed By: #### 8 5499 #### [facility] [address] [place] [address], [place] GFR/1.73 sq M predicted among non-blacks MDRD (S/P/Bld) [Vol rate/Area] mL/min/{1.73_m2} Normal >60 [facility] Comment on above: Order Comment: No: D o not add to previous draw Result Comment: Calc ulation may not be valid for patients over 70 years Performed By: #### 8 5499 #### [facility] [address] [place] [address], [place] Glucose [Mass/Vol] 160 mg/dL High 70-100 [facility] Comment on above: Order Comment: No: D o not add to previous draw Performed By: #### 8 5499 #### [facility] [address] [place] [address], [place] Potassium [Moles/Vol] 4.0 mmol/L Normal 3.5-5.1 [facility] Comment on above: Order Comment: No: D o not add to previous draw Performed By: #### 8 5499 #### [facility] [address] [place] [address], [place] Sodium [Moles/Vol] 136 mmol/L Normal 136-145 [facility] Comment on above: Order Comment: No: D o not add to previous draw Performed By: #### 8 5499 #### [facility] [address] [place] [address], [facility] Urea nitrogen [Mass/Vol] 13 mg/dL Normal 7-25 [facility] Comment on above: Order Comment: No: D o not add to previous draw Performed By: #### 8 5499 #### [facility] [address] [place] [address], [facility] CBC COMPLETE BLOOD COUNTon Erythrocyte distribution width (RBC) [Ratio] 12.4 % Normal 11.5-15.0 [facility] Comment on above: Order Comment: No: D o not add to previous draw Performed By: #### 8 6002 #### [facility] [address] [place] [address], [place] Hematocrit (Bld) [Volume fraction] 37.6 % Low 39.0-50.0 [facility] Comment on above: Order Comment: No: D o not add to previous draw Performed By: #### 8 6002 #### [facility] [address] [place] [address], [place] Hemoglobin (Bld) [Mass/Vol] 12.8 g/dL Low 13.0-17.0 [facility] Comment on above: Order Comment: No: D o not add to previous draw Performed By: #### 8 6002 #### [facility] [address] [place] [address], [place] MCH (RBC) [Entitic mass] 30.1 pg Normal 27.0-33.0 [facility] Comment on above: Order Comment: No: D o not add to previous draw Performed By: #### 8 6002 #### [facility] [address] [place] [id number], [facility] MCHC (RBC) [Mass/Vol] 34.0 g/dL Normal 32.0-35.0 [facility] Comment on above: Order Comment: No: D o not add to previous draw Performed By: #### 8 6002 #### [facility] [address] [place] [id number], [facility] MCV (RBC) [Entitic vol] 88.5 fL Normal 82.0-98.0 [facility] Comment on above: Order Comment: No: D o not add to previous draw Performed By: #### 8 6002 #### [facility] [address] [place] [address], [facility] Nucleated RBC/100 WBC (Bld) [Ratio] 0 % Normal 0-0 [facility] Comment on above: Order Comment: No: D o not add to previous draw Performed By: #### 8 6002 #### [facility] [address] [place] [id number], [place] PLAT CNT 180 10*3/uL Normal 150-400 [facility] Comment on above: Order Comment: No: D o not add to previous draw Performed By: #### 8 6002 #### [facility] [address] [place] [id number], [facility] RBC (Bld) [#/Vol] 4.25 10*6/uL Normal 4.20-5.70 [facility] Comment on above: Order Comment: No: D o not add to previous draw Performed By: #### 8 6002 #### [facility] [address] [place] [address], [facility] WBC (Bld) [#/Vol] 7.58 10*3/uL Normal 4.00-10.60 [facility] Comment on above: Order Comment: No: D o not add to previous draw Performed By: #### 8 6002 #### [facility] [address] [place] [address], [place] MAGNESIUM BLOODon 02-13-2020 Magnesium [Mass/Vol] 2.0 mg/dL Normal 1.9-2.7 [facility] Comment on above: Order Comment: No: D o not add to previous draw Performed By: #### 8 5499 #### [facility] [address] [place] [address], [place] PHOSPHORUS BLOODon 0 Phosphate [Mass/Vol] 3.6 mg/dL Normal 2.5-5.0 [facility] Comment on above: Order Comment: No: D o not add to previous draw Performed By: #### 8 5499 #### [facility] [address] [place] [address], [place] POC GLUCOSE LABon 02-13-2020 Glucose [Mass/Vol] 176 mg/dL High 70-100 [facility] Comment on above: Performed By: #### 8 5499 #### [facility] [address] [place] [address], [place] Glucose [Mass/Vol] 134 mg/dL High 70-100 [facility] Comment on above: Performed By: #### 8 5499 #### [facility] [address] [place] [address], [place] Glucose [Mass/Vol] 138 mg/dL High 70-100 [facility] Comment on above: Performed By: #### 8 5499 #### [facility] [address] [place] [address], [place] Glucose [Mass/Vol] 143 mg/dL High 70-100 [facility] Comment on above: Performed By: #### 8 5499 #### [facility] [address] Glucose [Mass/Vol] 163 mg/dL High 70-100 [facility] Comment on above: Performed By: #### 8 5499 #### [address] [address] TIBIA FIBULA LEFTon 02-13-20 20 TIBIA FIBULA LEFT [facility] Department of Radiology [address] [place] [phone] == Patient Name: MARILU DAN : 1950 Sex: M Age: Race: White Pt. Location: [id number] Patient Status: I Ordered Date: 02/13/2020 8:00:00 [...] fracture. Electronically signed: Catalina Pastrana. Transcribed by: [email or web address], User Resident: Electronically Signed by: CATALINA PASTRANA @ 02/13/2020 09:09 PM Normal [facility] Comment on above: Order Comment: Hardw are Evaluation TIBIA FIBULA LEFT [facility] Department of Radiology [address] [place] [phone] == Patient Name: MARILU DAN : 1950 Sex: M Age: Race: White Pt. Location: [address] [place] [address] Patient Status: I Ordered Date: 02/13/2020 7:15:00 [...] review. Electronically signed: Catalina Pastrana. Transcribed by: [email or web address], User Resident: Electronically Signed by: CATALINA PASTRANA @ 02/13/2020 09:12 PM Normal [facility] Comment on above: Order Comment: Hardw are Evaluation *SARS-CoV-2 COVID-19on 02-11 [id number] Not Detected Normal Not Detected [facility] Comment on above: Order Comment: The A ptima SARS-CoV-2 assay is a nucleic acid amplification test intended for the qualitative detection of RNA from SARS-CoV-2 isolated and purified from nasopharyngeal ([place] [employer]),oropharyngeal (OP), nasal swab, sputum, and bronchoalveolar lavage (BAL) specimens from patients with signs and symptoms of infection who are suspected of COVID-19. Results are for the identification of SARS-CoV-2 RNA. The SARS-CoV-2 RNA is generally detectable during the acute phase of infection. The Aptima SARS-CoV-2 Assay on the [employer] system is intended for use by laboratory personnel specifically instructed and trained in the operation of the [place] and [employer] system. The Aptima SARS-CoV-2 assay is [...] information. Performed By: #### 3 1792 #### [facility] [address] [place] [address], [facility] APTTon 02-12-2020 aPTT Coag (Bld) [Time] 27.0 s Normal 25.0-35.0 Th e [facility] Comment on above: [...] PURPOSE. Performed By: #### 8 5499 #### [facility] [address] [facility]. [address] BASIC METABOLIC PANELon 10-0 Calcium [Mass/Vol] 9.0 mg/dL Normal 8.6-10.3 [facility] Comment on above: Order Comment: No: D o not add to previous draw Performed By: #### 4 1000, 11474, 50488, 26046 ####[facility] [facility].[address] Chloride [Moles/Vol] 100 mmol/L Normal 98-107 [facility] Comment on above: Order Comment: No: D o not add to previous draw Performed By: #### 4 1000, 41691, 02922, 52291 ####[facility] [facility].[address] CO2 [Moles/Vol] 26 mmol/L Normal 21-31 [facility] Comment on above: Order Comment: No: D o not add to previous draw Performed By: #### 4 1000, 10449, 78669, 38394 ####[facility] [facility].[address] Creatinine [Mass/Vol] 0.80 mg/dL Normal 0.70-1.30 [facility] Comment on above: Order Comment: No: D o not add to previous draw Performed By: #### 4 1000, 19991, 35959, 00411 ####[facility] [facility].[address] GFR/1.73 sq M predicted among blacks MDRD (S/P/Bld) [Vol rate/Area] mL/min/{1.73_m2} Normal >60 [facility] Comment on above: Order Comment: No: D o not add to previous draw Result Comment: Calc ulation may not be valid for patients over 70 years Performed By: #### 4 1000, 88045, 77268, 05949 ####[facility] [facility] [address], [facility] GFR/1.73 sq M predicted among non-blacks MDRD (S/P/Bld) [Vol rate/Area] mL/min/{1.73_m2} Normal >60 [facility] Comment on above: Order Comment: No: D o not add to previous draw Result Comment: Calc ulation may not be valid for patients over 70 years Performed By: #### 4 1000, 88863, 54947, 46124 ####[facility] [facility] [address], [facility] Glucose [Mass/Vol] 193 mg/dL High 70-100 [facility] Comment on above: Order Comment: No: D o not add to previous draw Performed By: #### 4 1000, 04883, 38644, 37972 ####[facility] [place] [address], [facility] Potassium [Moles/Vol] 4.2 mmol/L Normal 3.5-5.1 [facility] Comment on above: Order Comment: No: D o not add to previous draw Performed By: #### 4 1000, 78028, 41954, 12196 ####[facility] [place] [address], [facility] Sodium [Moles/Vol] 132 mmol/L Low 136-145 [facility] Comment on above: Order Comment: No: D o not add to previous draw Performed By: #### 4 1000, 65396, 11045, 92139 ####[facility] [place] [address], [facility] Urea nitrogen [Mass/Vol] 14 mg/dL Normal 7-25 [facility] Comment on above: Order Comment: No: D o not add to previous draw Performed By: #### 4 1000, 50398, 36124, 96015 ####[facility] CBC W/DIFFon 02-12-2020 ABS BASOPHILS 0.0 10*3/uL Normal 0.0-0.2 [facility] Comment on above: Performed By: #### 8 5499 #### [facility] [address] [facility] [address], [facility] ABS IMM GRANS 0.1 10*3/uL Normal 0.0-0.2 [facility] Comment on above: Performed By: #### 8 5499 #### [facility] [address] ABS NEUTROPHILS 9.8 10*3/uL High 1.6-7.6 [facility] Comment on above: Performed By: #### 8 5499 #### [facility] [address] Basophils/100 WBC (Bld) 0.1 % Normal 0.0-1.0 [facility] Comment on above: Performed By: #### 8 5499 #### [facility] [address] [place] [address], [facility] Eosinophils (Bld) [#/Vol] 0.0 10*3/uL Normal 0.0-0.5 [facility] Comment on above: Performed By: #### 8 5499 #### [facility] [address] [facility] [address], [facility] Eosinophils/100 WBC (Bld) 0.1 % Normal 0.0-6.0 [facility] Comment on above: Performed By: #### 8 5499 #### [facility] [address] Erythrocyte distribution width (RBC) [Ratio] 12.0 % Normal 11.5-15.0 [facility] Comment on above: Performed By: #### 8 5499 #### [facility] [address] [place] [address], [facility] Hematocrit (Bld) [Volume fraction] 38.0 % Low 39.0-50.0 [facility] Comment on above: Performed By: #### 8 5499 #### [facility] [address] [facility] [address], [facility] Hemoglobin (Bld) [Mass/Vol] 13.0 g/dL Normal 13.0-17.0 [facility] Comment on above: Performed By: #### 8 5499 #### [facility] [address] [facility] [address], [facility] IMMATURE GRANS 0.5 % Normal 0.0-1.0 [facility] Comment on above: Performed By: #### 8 5499 #### [facility] [address] [facility] [address], [facility] Lymphocytes (Bld) [#/Vol] 1.3 10*3/uL Normal 1.2-4.0 [facility] Comment on above: Performed By: #### 8 5499 #### [facility] [address] [facility] [address], [facility] Lymphocytes/100 WBC (Bld) 11.1 % Low 20.0-45.0 [facility] Comment on above: Performed By: #### 8 5499 #### [facility] [address] [facility] [address], [facility] MCH (RBC) [Entitic mass] 30.0 pg Normal 27.0-33.0 [facility] Comment on above: Performed By: #### 8 5499 #### [facility] [address] [facility] [address], [facility] MCHC (RBC) [Mass/Vol] 34.2 g/dL Normal 32.0-35.0 [facility] Comment on above: Performed By: #### 8 5499 #### [facility] [address] [place] [address], [facility] MCV (RBC) [Entitic vol] 87.8 fL Normal 82.0-98.0 [facility] Comment on above: Performed By: #### 8 5499 #### [facility] [address] [place] [address], [facility] Monocytes (Bld) [#/Vol] 0.9 10*3/uL Normal 0.1-1.0 [facility] Comment on above: Performed By: #### 8 5499 #### [facility] [address] [facility] [place] [id number], [facility] MONOS 7.1 % Normal 5.0-12.0 [facility] Comment on above: Performed By: #### 8 5499 #### [facility] [address] [place] [address], [facility] Neutrophils/100 WBC (Bld) 81.1 % High 40.0-72.0 [facility] Comment on above: Performed By: #### 8 5499 #### [facility] [address] [facility] [address], [facility] Nucleated RBC/100 WBC (Bld) [Ratio] 0 % Normal 0-0 [facility] Comment on above: Performed By: #### 8 5499 #### [facility] [address] [facility] [address], [facility] PLAT CNT 204 10*3/uL Normal 150-400 [facility] Comment on above: Performed By: #### 8 5499 #### [facility] [address] [place] [address], [facility] RBC (Bld) [#/Vol] 4.33 10*6/uL Normal 4.20-5.70 [facility] Comment on above: Performed By: #### 8 5499 #### [facility] [address] [place] [address], [facility] WBC (Bld) [#/Vol] 12.03 10*3/uL High 4.00-10.60 [facility] Comment on above: Performed By: #### 8 5499 #### [address] LOWER EXTREMITY WO CONTRA ST LEFTon 02-12-2020 CT LOWER EXTREMITY WO CONTRAST LEFT [facility] Department of Radiology [address] [place] [phone] == Patient Name: MARILU DAN : 1950 Sex: M Age: Race: White Pt. Location: [id number] Patient Status: I Ordered Date: 02/12/2020 6:00:00 [...] metatarsals. Electronically signed: Kwaku Gupta. Transcribed by: [email or web address], User Resident: Electronically Signed by: KWAKU GUPTA @ 02/12/2020 06:34 PM Normal [facility] Comment on above: Order Comment: Hardw are Evaluation LIVER BATTERYon 02-12-2020 Albumin [Mass/Vol] 3.9 g/dL Normal 3.5-5.7 [facility] Comment on above: Order Comment: No: D o not add to previous draw Performed By: #### 4 1000, 98667, 34293, 20163 ####[facility] [facility].[address] ALKALINE PHOSPH 64 IU/L Normal 34-104 [facility] Comment on above: Order Comment: No: D o not add to previous draw Performed By: #### 4 1000, [id number], [id number], [id number] ####[facility] [facility].[address] ALT [Catalytic activity/Vol] 10 U/L Normal 7-52 [facility] Comment on above: Order Comment: No: D o not add to previous draw Performed By: #### 4 1000, 73547, 45252, 41553 ####[facility] AST [Catalytic activity/Vol] 13 U/L Normal 13-39 [facility] Comment on above: Order Comment: No: D o not add to previous draw Performed By: #### 4 1000, 47943, 05643, 10184 ####[facility] [place] [address], [facility] Bilirubin [Mass/Vol] 0.5 mg/dL Normal 0.3-1.0 [facility] Comment on above: Order Comment: No: D o not add to previous draw Performed By: #### 4 1000, 77421, 04181, 03795 ####[facility] Bilirubin.direct [Mass/Vol] 0.1 mg/dL Normal 0.0-0.2 [facility] Comment on above: Order Comment: No: D o not add to previous draw Performed By: #### 4 1000, 44650, 60481, 70839 ####[facility] [place] [address], [facility] Protein [Mass/Vol] 6.3 g/dL Normal 6.0-8.3 [facility] Comment on above: Order Comment: No: D o not add to previous draw Performed By: #### 4 1000, 63287, 13078, 07064 ####[facility] [place] [address], [facility] MAGNESIUM BLOODon 02-12-2020 Magnesium [Mass/Vol] 1.8 mg/dL Low 1.9-2.7 [facility] Comment on above: Order Comment: No: D o not add to previous draw Performed By: #### 4 1000, 16091, 59029, 38380 ####[facility] [place] [address], [facility] PHOSPHORUS BLOODon 0 Phosphate [Mass/Vol] 3.4 mg/dL Normal 2.5-5.0 [facility] Comment on above: Order Comment: No: D o not add to previous draw Performed By: #### 4 1000, 37834, 38590, 64922 ####[facility] [place] [address], [facility] POC GLUCOSE LABon 02-12-2020 Glucose [Mass/Vol] 285 mg/dL High 70-100 [facility] Comment on above: Performed By: #### 8 5499 #### [facility] [address] [place] [address], [facility] PROTHROMBIN TIMEon 0 INR Coag (PPP) [Relative time] 1.36 {INR} High 0.91-1.16 [facility] Comment on above: [...] 1995;108:231S-246S. Performed By: #### 8 5499 #### [facility] [address] [place] [address], [facility] PT Coag (PPP) [Time] 16.9 s High 12.3-14.8 [facility] Comment on above: Order Comment: No: D o not add to previous draw Result Comment: ALL RESULTS MUST BE INTERPRETED WITH RESPECT TO BLOOD DRAWING ARTIFACT OR DILUTION ERROR OF ANTICOAGULANT AT THE TIME OF SAMPLING. Performed By: #### 8 5499 #### [address] [address], [facility] TIBIA FIBULA LEFT 02-12-20 20 TIBIA FIBULA LEFT [facility] Department of Radiology [address] [place] [id number] == Patient Name: MARILU DAN : 1950 Sex: M Age: Race: White Pt. Location: [address] [place] [address] Patient Status: I Ordered Date: 02/12/2020 5:30:00 [...] above. Electronically signed: Kwaku Gupta. Transcribed by: [email or web address], User Resident: Electronically Signed by: KWAKU GUPTA @ 02/12/2020 06:13 PM Normal [facility] Comment on above: Order Comment: Hardw are Evaluation TYPE AND SCREENon 02-12-2020 ABO INTERPRETATION A Normal [facility] Comment on above: Performed By: #### 6 2586 ####[facility] [facility] [place] [place] [id number] [place] [address] RH INTERPRETATION Positive Normal [facility] Comment on above: Performed By: #### 6 2586 ####[facility] [facility] [place] [id number] [place] [address] CBC COMPLETE BLOOD COUNTon 0 11-05-2019 Erythrocyte distribution width (RBC) [Ratio] 11.9 % Normal 11.5-15.0 [facility] Comment on above: Order Comment: No: D o not add to previous draw Performed By: #### 8 5499 #### [facility] [address] [place] [address], [facility] Hematocrit (Bld) [Volume fraction] 37.2 % Low 39.0-50.0 [facility] Comment on above: Order Comment: No: D o not add to previous draw Performed By: #### 8 5499 #### [facility] [address] [place] [address], [place] Hemoglobin (Bld) [Mass/Vol] 12.6 g/dL Low 13.0-17.0 [facility] Comment on above: Order Comment: No: D o not add to previous draw Performed By: #### 8 5499 #### [facility] [address] [place] [address], [place] MCH (RBC) [Entitic mass] 30.4 pg Normal 27.0-33.0 [facility] Comment on above: Order Comment: No: D o not add to previous draw Performed By: #### 8 5499 #### [facility] [address] [place] [address], [facility] MCHC (RBC) [Mass/Vol] 33.9 g/dL Normal 32.0-35.0 [facility] Comment on above: Order Comment: No: D o not add to previous draw Performed By: #### 8 5499 #### [facility] [address] [place] [address], [facility] MCV (RBC) [Entitic vol] 89.6 fL Normal 82.0-98.0 [facility] Comment on above: Order Comment: No: D o not add to previous draw Performed By: #### 8 5499 #### [facility] [address] [place] [address], [facility] Nucleated RBC/100 WBC (Bld) [Ratio] 0 % Normal 0-0 [facility] Comment on above: Order Comment: No: D o not add to previous draw Performed By: #### 8 5499 #### [facility] [address] [place] [address], [facility] PLAT CNT 155 10*3/uL Normal 150-400 [facility] Comment on above: Order Comment: No: D o not add to previous draw Performed By: #### 8 5499 #### [facility] [address] [place] [address], [facility] RBC (Bld) [#/Vol] 4.15 10*6/uL Low 4.20-5.70 [facility] Comment on above: Order Comment: No: D o not add to previous draw Performed By: #### 8 5499 #### [facility] [address] [place] [address], [facility] WBC (Bld) [#/Vol] 7.44 10*3/uL Normal 4.00-10.60 [facility] Comment on above: Order Comment: No: D o not add to previous draw Performed By: #### 8 5499 #### [facility] [address] [place] [address], [place] COMP METABOLIC PANELon 11-04 Albumin [Mass/Vol] 3.3 g/dL Low 3.5-5.7 [facility] Comment on above: Order Comment: No: D o not add to previous draw Performed By: #### 8 6002 #### [facility] [address] [place] [address], [place] ALKALINE PHOSPH 55 IU/L Normal 34-104 [facility] Comment on above: Order Comment: No: D o not add to previous draw Performed By: #### 8 6002 #### [facility] [address] [place] [address], [place] ALT [Catalytic activity/Vol] 12 U/L Normal 7-52 [facility] Comment on above: Order Comment: No: D o not add to previous draw Performed By: #### 8 6002 #### [facility] [address] [place] [address], [place] AST [Catalytic activity/Vol] 15 U/L Normal 13-39 [facility] Comment on above: Order Comment: No: D o not add to previous draw Performed By: #### 8 6002 #### [facility] [address] [place] [address], [place] Bilirubin [Mass/Vol] 0.6 mg/dL Normal 0.3-1.0 [facility] Comment on above: Order Comment: No: D o not add to previous draw Performed By: #### 8 6002 #### [facility] [address] [place] [address], [place] Calcium [Mass/Vol] 8.1 mg/dL Low 8.6-10.3 [facility] Comment on above: Order Comment: No: D o not add to previous draw Performed By: #### 8 6002 #### [facility] [address] [place] [address], [place] Chloride [Moles/Vol] 106 mmol/L Normal 98-107 [facility] Comment on above: Order Comment: No: D o not add to previous draw Performed By: #### 8 6002 #### [facility] [address] [place] [address], [place] CO2 [Moles/Vol] 26 mmol/L Normal 21-31 [facility] Comment on above: Order Comment: No: D o not add to previous draw Performed By: #### 8 6002 #### [facility] [address] [place] [address], [place] Creatinine [Mass/Vol] 0.79 mg/dL Normal 0.70-1.30 [facility] Comment on above: Order Comment: No: D o not add to previous draw Performed By: #### 8 6002 #### [facility] [address] [place] [address], [place] GFR/1.73 sq M predicted among blacks MDRD (S/P/Bld) [Vol rate/Area] mL/min/{1.73_m2} Normal >60 [facility] Comment on above: Order Comment: No: D o not add to previous draw Result Comment: Calc ulation may not be valid for patients over 70 years Performed By: #### 8 6002 #### [facility] [address] [place] [address], [place] GFR/1.73 sq M predicted among non-blacks MDRD (S/P/Bld) [Vol rate/Area] mL/min/{1.73_m2} Normal >60 [facility] Comment on above: Order Comment: No: D o not add to previous draw Result Comment: Calc ulation may not be valid for patients over 70 years Performed By: #### 8 6002 #### [facility] [address] [place] [address], [place] Glucose [Mass/Vol] 155 mg/dL High 70-100 [facility] Comment on above: Order Comment: No: D o not add to previous draw Performed By: #### 8 6002 #### [facility] [address] [place] [address], [facility] Potassium [Moles/Vol] 3.8 mmol/L Normal 3.5-5.1 [facility] Comment on above: Order Comment: No: D o not add to previous draw Performed By: #### 8 6002 #### [facility] [address] [place] [address], [facility] Protein [Mass/Vol] 5.2 g/dL Low 6.0-8.3 [facility] Comment on above: Order Comment: No: D o not add to previous draw Performed By: #### 8 6002 #### [facility] [address] [place] [address], [place] Sodium [Moles/Vol] 136 mmol/L Normal 136-145 [facility] Comment on above: Order Comment: No: D o not add to previous draw Performed By: #### 8 6002 #### [facility] [address] [place] [address], [facility] Urea nitrogen [Mass/Vol] 11 mg/dL Normal 7-25 [facility] Comment on above: Order Comment: No: D o not add to previous draw Performed By: #### 8 6002 #### [facility] [address] [place] [address], [facility] Cardiovascular Lab Reporton 11-05-2019 Cardiovascular Lab Report [facility] Patient Name: Marilu Dan [facility] MR #: [id number] Physician: Blas Guillen of Keesha Ospina Medicine Service Date: 11/04/2019 Division of Birthdate: 1950 Cardiology Room #: DMITRIY [id number] Adult Cardiovascular Services [facility] [address] [place] [address] Cardiovascular Laboratory Report INDICATION: Marilu Dan is [...] left (Angioseal) common femoral arteries. INTERVENTIONAL CARDIOLOGY CHIROPRACTIC ASSISTANT: Blas Ospina M.D. CARDIOTHORACIC SURGERY CHIROPRACTIC ASSISTANT: Santana Reagan MD SAP FICO ARCHITECT: Reynaldo Cox M.D. METHODS: Procedure was [...] and this was easily upsized to a 6-Colombian x 11 cm sheath. Access was also obtained using the same technique in the left common femoral artery with inner cannula angiography confirming adequate location and upsized to a 6-Colombian x 11 cm sheath. Additional access was obtained in the left common femoral vein and a 6-Colombian x 11 cm sheath was placed. Preclosure was performed in the right common femoral artery using two 6-Colombian ProGlide devices, positioned at 10 o'clock and 2 o'clock locations and the access was upsized to a 10-Colombian sheath. 4000 units of heparin were given at this time. A 6-Colombian angled pigtail catheter was advanced to the ascending aorta from the left common femoral access and a 5-Colombian temporary balloon tipped pacemaker wire was advanced to the right ventricular apex and adequate capture was confirmed with a threshold of 2 milliamps. A 6-Colombian JR4 diagnostic catheter was advanced from the right femoral access over a J-tip wire to the descending aorta and used to place a Lunderquist wire and the access was then serially dilated and upsized to the 14-Colombian Henao eSheath. At this time, full heparinization was given and therapeutic ACT was confirmed during the rest of the procedure and additional heparin given as needed. Using a 6-Colombian JR4 diagnostic catheter and a straight Glidewire, the aortic valve was crossed and the catheter was advanced to the LV and then exchanged over a wire to a 6-Colombian angled pigtail catheter, and after adequate position [...] the valve was deployed slowly across the prairie band aortic valve. The balloon was deflated and then retracted. After ending pacing, the patient recovered a normal sinus rhythm and recovered good pressure. Echocardiography confirmed adequate functioning of the valve, normal left ventricular function, no evidence of aortic insufficiency or paravalvular leak by echocardiography and no evidence of pericardial effusion. The wire was exchanged to a 6-Colombian angled pigtail catheter and measurement of pressures [...] left femoral arteriotomy was managed with a 6-Colombian Angio-Seal device with good hemostasis. The patient [...] Ospina M.D. Date Trans: 11/05/2019 06:35 A/gomez [id number] cc: Mary Beth Pitts M.D. [address] [place] [address] Normal [facility] MAGNESIUM BLOODon 11-05-2019 Magnesium [Mass/Vol] 1.9 mg/dL Normal 1.9-2.7 [facility] Comment on above: Order Comment: No: D o not add to previous draw Performed By: #### 8 6002 #### [facility] [address] Operative Reporton 0 Operative Report MR#: [id number] I [facility] Pt. Name: Marilu Dan Room #: DMITRIY [id number] Discharge Date: Birthdate: 1950 OPERATIVE REPORT DATE OF SURGERY: 11/04/2019 SURGEON: Santana Reagan MD PREOPERATIVE DIAGNOSIS: Severe aortic stenosis, status post coronary artery bypass grafting. POSTOPERATIVE DIAGNOSIS: Severe aortic stenosis, status post coronary artery bypass grafting. OPERATION: Transfemoral transcatheter aortic valve replacement with 26 mm Chidi XT valve. SURGEONS: Dr. Reagan and Dr. Ospina. PACKER AND CARRY OUT: Dr. Cox. ANESTHESIA: Local anesthesia with IV [...] was achieved to both femoral arteries with 6-Colombian sheath. A temporary transvenous pacemaker was inserted in the left femoral vein and tested for later use. At this time, pigtail catheter was inserted into the ascending aorta through the left femoral sheath and root aortogram was performed. Anatomical details were measured. Coplanar angles were assessed. Next, the patient was heparinized and the right femoral artery sheath was upsized to a 14-Colombian Henao sheath. Before implanting the sheath, the [...] Reagan MD Date Trans: 11/05/2019 02:18 A/gomez [id number] Normal [facility] POC GLUCOSE LABon 11-05-2019 Glucose [Mass/Vol] 232 mg/dL High 70-100 [facility] Comment on above: Performed By: #### 8 5499 #### [facility] [address] [facility] [address], [facility] Glucose [Mass/Vol] 148 mg/dL High 70-100 [facility] Comment on above: Performed By: #### 8 5499 #### [facility] [address] [facility] [address], [facility] Glucose [Mass/Vol] 203 mg/dL High 70-100 [facility] Comment on above: Performed By: #### 8 5499 #### [facility] [address] [facility] [address], [facility] PORTABLE CHEST 1 VIEWon 10-13 PORTABLE CHEST 1 VIEW [facility] Department of Radiology [address] [place] [address] == Patient Name: MARILU DAN : 1950 Sex: M Age: Race: White Pt. Location: [place] [address] Patient Status: I Ordered Date: 11/05/2019 10:20:00 [...] recommendations. Electronically signed: Omid Avery. Transcribed by: [email or web address], User Resident: Electronically Signed by: OMID AVERY @ 11/05/2019 11:07 AM Normal [facility] Comment on above: Order Comment: Hardw are Evaluation PROTHROMBIN TIMEon 0 INR Coag (PPP) [Relative time] 1.06 {INR} Normal 0.91-1.16 [facility] Comment on above: [...] 1995;108:231S-246S. Performed By: #### 8 6002 #### [facility] [address] PT Coag (PPP) [Time] 13.8 s Normal 12.3-14.8 [facility] Comment on above: Order Comment: No: D o not add to previous draw Result Comment: ALL RESULTS MUST BE INTERPRETED WITH RESPECT TO BLOOD DRAWING ARTIFACT OR DILUTION ERROR OF ANTICOAGULANT AT THE TIME OF SAMPLING. Performed By: #### 8 6002 #### [facility] [address] [place] [address], [facility] ACTIVATED CLOTTING TIMEon ACTIVATED CLOTTING TIME 249 sec High 82-152 [facility] Comment on above: Performed By: #### 3 0739 ####[facility] [place] [address], [facility] ACTIVATED CLOTTING TIME 249 sec High 82-152 [facility] Comment on above: Performed By: #### 3 0739 ####[facility] [place] [address], [facility] ACTIVATED CLOTTING TIME 225 sec High 82-152 [facility] Comment on above: Performed By: #### 3 0739 ####[facility] [place] [address], [facility] ACTIVATED CLOTTING TIME 201 sec High 82-152 [facility] Comment on above: Performed By: #### 3 0738 #### [facility] [address] [place] [address], [facility] ACTIVATED CLOTTING TIME 172 sec High 82-152 [facility] Comment on above: Performed By: #### 3 0738 #### [facility] [address] [place] [address], [facility] BASIC METABOLIC PANELon 06- Calcium [Mass/Vol] 8.9 mg/dL Normal 8.6-10.3 [facility] Comment on above: Performed By: #### 8 6002 #### [facility] [address] [place] [address], [facility] Chloride [Moles/Vol] 105 mmol/L Normal 98-107 [facility] Comment on above: Performed By: #### 8 6002 #### [facility] [address] [place] [address], [facility] CO2 [Moles/Vol] 28 mmol/L Normal 21-31 [facility] Comment on above: Performed By: #### 8 6002 #### [facility] [address] [place] [address], [facility] Creatinine [Mass/Vol] 0.87 mg/dL Normal 0.70-1.30 [facility] Comment on above: Performed By: #### 8 6002 #### [facility] [address] [place] [id number], [facility] GFR/1.73 sq M predicted among blacks MDRD (S/P/Bld) [Vol rate/Area] mL/min/{1.73_m2} Normal >60 [facility] Comment on above: Result Comment: Calc ulation may not be valid for patients over 70 years Performed By: #### 8 6002 #### [facility] [address] [place] [address], [facility] GFR/1.73 sq M predicted among non-blacks MDRD (S/P/Bld) [Vol rate/Area] mL/min/{1.73_m2} Normal >60 [facility] Comment on above: Result Comment: Calc ulation may not be valid for patients over 70 years Performed By: #### 8 6002 #### [facility] [address] [place] [address], [place] Glucose [Mass/Vol] 221 mg/dL High 70-100 [facility] Comment on above: Performed By: #### 8 6002 #### [facility] [address] [place] [address], [place] Potassium [Moles/Vol] 3.9 mmol/L Normal 3.5-5.1 [facility] Comment on above: Performed By: #### 8 6002 #### [facility] [address] [place] [address], [place] Sodium [Moles/Vol] 139 mmol/L Normal 136-145 [facility] Comment on above: Performed By: #### 8 6002 #### [facility] [address] [place] [address], [place] Urea nitrogen [Mass/Vol] 15 mg/dL Normal 7-25 [facility] Comment on above: Performed By: #### 8 6002 #### [facility] [address] [place] [address], [place] PERFUSION BLOOD PANELon 06- BASE EXCESS -2.0 mmol/L Normal -2.0-3.0 [facility] Comment on above: Performed By: #### 3 0738 #### [facility] [address] [place] [address], [place] Glucose [Mass/Vol] 169 mg/dL High 70-105 [facility] Comment on above: Performed By: #### 3 0738 #### [facility] [address] [place] [address], [facility] Hematocrit (Bld) [Volume fraction] 34 % Low 38-51 [facility] Comment on above: Performed By: #### 3 0738 #### [facility] [address] [place] [address], [facility] Hemoglobin (Bld) [Mass/Vol] 11.6 g/dL Low 12.0-17.0 [facility] Comment on above: Performed By: #### 3 0738 #### [facility] [address] [place] [address], [facility] IONIZED CALCIUM 1.20 mmol/L Normal 1.12-1.32 [facility] Comment on above: Performed By: #### 3 0738 #### [facility] [address] [place] [address], [facility] Oxygen (Bld) [Partial pressure] 410.0 mm[Hg] High 80.0-105.0 [facility] Comment on above: Performed By: #### 3 0738 #### [facility] [address] [place] [address], [facility] PCO2 49.2 mmHg High 35.0-45.0 [facility] Comment on above: Performed By: #### 3 0738 #### [facility] [address] [place] [address], [facility] pH (Bld) 7.31 [pH] Low 7.35-7.45 [facility] Comment on above: Performed By: #### 3 0738 #### [facility] [address] [place] [address], [facility] Potassium [Moles/Vol] 4.0 mmol/L Normal 3.5-4.9 [facility] Comment on above: Performed By: #### 3 0738 #### [facility] [address] [place] [address], [place] Sodium [Moles/Vol] 142 mmol/L Normal 138-146 [facility] Comment on above: Performed By: #### 3 0738 #### [facility] [address] [place] [address], [place] POC GLUCOSE LABon 11-04-2019 Glucose [Mass/Vol] 196 mg/dL High 70-100 [facility] Comment on above: Performed By: #### 8 5499 #### [facility] [address] [place] [address], [place] Glucose [Mass/Vol] 215 mg/dL High 70-100 [facility] Comment on above: Performed By: #### 8 5499 #### [facility] [address] [place] [address], [place] RBC'S 2 UNITSon 11-04-2019 CROSSMATCH INTERP 1 COMP Normal [facility] Comment on above: Performed By: #### 8 6002 #### [facility] [address] [facility] [address], [place] CROSSMATCH INTERP 2 COMP Normal [facility] Comment on above: Performed By: #### [id number] #### [facility] [address] [place] [address], [place] PRODUCT CODE 1 E0336 Normal [facility] Comment on above: Performed By: #### [id number] #### [facility] [address] [place] [address], [place] PRODUCT CODE 2 E0336 Normal [facility] Comment on above: Performed By: #### [id number] #### [facility] [address] [place] [address], [place] PRODUCT STATUS 1 RE Normal [facility] Comment on above: Result Comment: Resu lt changed by IF on 11/05/2019 21:39. The previous value was XM. Performed By: #### [id number] #### [facility] [address] [place] [address], [facility] PRODUCT STATUS 2 RE Normal [facility] Comment on above: Result Comment: Resu lt changed by IF on 11/05/2019 21:39. The previous value was XM. Performed By: #### [id number] #### [facility] [address] [place] [address], [facility] ABO 1 A Normal [facility] Comment on above: Performed By: #### [id number] #### [facility] [address] [place] [address], [facility] ABO 2 A Normal [facility] Comment on above: Performed By: #### [id number] #### [facility] [address] [place] [address], [facility] ID 1 [id number] Normal [facility] Comment on above: Performed By: #### [id number] #### [facility] [address] [place] [address], [facility] ID 2 [id number] Normal [facility] Comment on above: Performed By: #### [id number] #### [facility] [address] [place] [address], [facility] RH 1 Positive Normal [facility] Comment on above: Performed By: #### [id number] #### [facility] [address] [place] [address], [facility] RH 2 Positive Normal [facility] Comment on above: Performed By: #### [id number] #### [facility] [address] [place] [address], [facility] *MRSA/MSSA DNA NASALon 10-30 *MRSA/MSSA DNA NASAL Clinical Report: (D ) Specimen: NASAL SWAB Collected: 10/31/2019 16:01 Status: Final Last Updated: 11/01/2019 11:35 MSSA DNA (Final) Negative MRSA DNA (Final) Negative Normal [facility] Comment on above: Performed By: #### [id number] #### [facility] [address] [place], [place] [id number] [place] [address] *SARS-CoV-2 COVID-19on 10-30 [id number] Not Detected Normal Not Detected [facility] Comment on above: Order Comment: The A ptima SARS-CoV-2 assay is a nucleic acid amplification test intended for the qualitative detection of RNA from SARS-CoV-2 isolated and purified from nasopharyngeal ([employer]), nasal and oropharyngeal (OP) swab specimens from patients with signs and symptoms of infection who are suspected of COVID-19. Results are for the identification of SARS-CoV-2 RNA. The SARS-CoV-2 RNA is generally detectable in nasopharyngeal and oropharyngeal swabs during the acute phase of infection. The Aptima SARS-CoV-2 Assay on the [employer] system is intended for use by laboratory personnel specifically instructed and trained in the operation of the [place] [employer] [place] [employer] system. The Aptima SARS-CoV-2 assay is [...] information. Performed By: #### [id number] #### [facility] [address] [place], [place] [id number] [place] [address] CBC COMPLETE BLOOD COUNTon 0 10-31-2019 Erythrocyte distribution width (RBC) [Ratio] 11.9 % Normal 11.5-15.0 [facility] Comment on above: Performed By: #### [id number] #### [facility] [address] [facility] [address] Hematocrit (Bld) [Volume fraction] 41.2 % Normal 39.0-50.0 [facility] Comment on above: Performed By: #### [id number] #### [facility] [address] [place] [address], [facility] Hemoglobin (Bld) [Mass/Vol] 13.8 g/dL Normal 13.0-17.0 [facility] Comment on above: Performed By: #### 8 [id number] #### [facility] [address] [place] [address], [facility] MCH (RBC) [Entitic mass] 30.4 pg Normal 27.0-33.0 [facility] Comment on above: Performed By: #### 8 [id number] #### [facility] [address] MCHC (RBC) [Mass/Vol] 33.5 g/dL Normal 32.0-35.0 [facility] Comment on above: Performed By: #### 8 [id number] #### [facility] [address] [facility] [place] [address], [facility] MCV (RBC) [Entitic vol] 90.7 fL Normal 82.0-98.0 [facility] Comment on above: Performed By: #### 8 [id number] #### [facility] [address] [facility] [address] Nucleated RBC/100 WBC (Bld) [Ratio] 0 % Normal 0-0 [facility] Comment on above: Performed By: #### [id number] #### [facility] [address] [place] [address], [facility] PLAT CNT 216 10*3/uL Normal 150-400 [facility] Comment on above: Performed By: #### 8 [id number] #### [facility] [address] [place] [address], [facility] RBC (Bld) [#/Vol] 4.54 10*6/uL Normal 4.20-5.70 [facility] Comment on above: Performed By: #### 8 [id number] #### [facility] [address] [facility]. [address] WBC (Bld) [#/Vol] 8.20 10*3/uL Normal 4.00-10.60 [facility] Comment on above: Performed By: #### 8 [id number] #### [facility] [address] [facility]. [address] HEMOGLOBIN A1Con 10-31-2019 HbA1c (Bld) [Mass fraction] 177 mg/dL High 70-126 [facility] Comment on above: Performed By: #### 8 [id number] #### [facility] [address] [facility]. [address] HbA1c (Bld) [Mass fraction] 7.8 % High 4.0-6.0 [facility] Comment on above: Performed By: #### 8 [id number] #### [facility] [address] [facility]. [address] PROTHROMBIN TIMEon 0 INR Coag (PPP) [Relative time] 1.39 {INR} High 0.91-1.16 [facility] Comment on above: Result Comment: ACCC [...] 1995;[id number]. Performed By: #### 8 [id number] #### [facility] [address] [place] [address], [facility] INR Coag (PPP) [Relative time] 1.38 {INR} High 0.91-1.16 [facility] Comment on above: Result Comment: ACCC [...] 1995;[id number]. Performed By: #### [id number] #### [facility] [address] [place] [address], [place] PT Coag (PPP) [Time] 17.1 s High 12.3-14.8 [facility] Comment on above: Result Comment: ALL RESULTS MUST BE INTERPRETED WITH RESPECT TO BLOOD DRAWING ARTIFACT OR DILUTION ERROR OF ANTICOAGULANT AT THE TIME OF SAMPLING. Performed By: #### 8 [id number] #### [facility] [address] [place] [address], [place] PT Coag (PPP) [Time] 17.2 s High 12.3-14.8 [facility] Comment on above: Result Comment: ALL RESULTS MUST BE INTERPRETED WITH RESPECT TO BLOOD DRAWING ARTIFACT OR DILUTION ERROR OF ANTICOAGULANT AT THE TIME OF SAMPLING. Performed By: #### 8 [id number] #### [facility] [address] TYPE AND SCREENon 10-31-2019 ABO INTERPRETATION A Normal [facility] Comment on above: Performed By: #### [id number] #### [facility] [address] [place] [address], [facility] RH INTERPRETATION Positive Normal [facility] Comment on above: Performed By: #### [id number] #### [facility] [address] CBCOrdered By: Blas gonzales on 05-12-2019 Erythrocyte distribution width (RBC) [Ratio] 11.8 % 11.8 - 14.4 % [employer] Phone: Hematocrit (Bld) [Volume fraction] 45.2 % 40.7 - 50.3 % [employer] Phone: Hemoglobin (Bld) [Mass/Vol] 14.6 g/dL 13 - 17 g/dL [employer] Phone: MCH (RBC) [Entitic mass] 30.5 pg 25.2 - 33.5 pg [employer] Phone: MCHC (RBC) [Mass/Vol] 32.3 g/dL 28.4 - 34.8 g/dL [employer] Phone: MCV (RBC) [Entitic vol] 94.4 fL 82.6 - 102.9 fL [employer] Phone: NRBC Automated 0.0 0.0 per 100 WBC [employer] Phone: Platelet mean volume (Bld) [Entitic vol] 9.0 fL 8.1 - 13.5 fL [employer] Phone: Platelets (Bld) [#/Vol] 204 10*3/uL [employer] Work Phone: RBC (Bld) [#/Vol] 4.79 10*6/uL 4.21 - 5.7 7 m/uL [employer] Work Phone: WBC (Bld) [#/Vol] 8.0 10*3/uL [employer] Work Phone: Vital Signs Date Time Vital Sign Value Performing Clinician Facility 06-25-2024 09:41-0500 Body height 167.64 cm [facility] 06-25-2024 09:41-0500 Body mass index (BMI) [Ratio] 28.4 kg/m2 [facility] 06-25-2024 09:41-0500 Body temperature 96 [degF] [facility] 06-25-2024 09:41-0500 Body weight 79.94 kg [facility] 06-25-2024 09:41-0500 Diastolic blood pressure 62 mm[Hg] [facility] 06-25-2024 09:41-0500 Heart rate 88 /min [facility] 06-25-2024 09:41-0500 SaO2% (BldA) [Mass fraction] 85 % [facility] 06-25-2024 09:41-0500 Systolic blood pressure 126 mm[Hg] [facility] 06-09-2024 09:54-0500 Blood Pressure Location Cristo RIVERA [facility] 06-09-2024 09:54-0500 Diastolic blood pressure 73 mm[Hg] Cristo RIVERA [facility] 06-09-2024 09:54-0500 Heart rate 73 /min Cristo RIVERA [facility] 06-09-2024 09:54-0500 Systolic blood pressure 138 mm[Hg] Cristo RIVERA [facility] 02-15-2024 08:54-0400 Blood Pressure Location Cristo RIVERA [facility] 02-15-2024 08:54-0400 Body temperature 98.6 [degF] Cristo RIVERA [facility] 02-15-2024 08:54-0400 Diastolic blood pressure 71 mm[Hg] Cristo RIVERA [facility] 02-15-2024 08:54-0400 Heart rate 80 /min Cristo RIVERA [facility] 02-15-2024 08:54-0400 Respiratory rate 16 /min Cristo RIVERA [facility] 02-15-2024 08:54-0400 Systolic blood pressure 131 mm[Hg] Cristo RIVERA [facility] 12-21-2023 08:02-0400 Blood Pressure Location Cristo RIVERA [facility] 12-21-2023 08:02-0400 Diastolic blood pressure 72 mm[Hg] Cristo RIVERA [facility] 12-21-2023 08:02-0400 Heart rate 73 /min Cristo RIVERA [facility] 12-21-2023 08:02-0400 Respiratory rate 16 /min Cristo RIVERA [facility] 12-21-2023 08:02-0400 Systolic blood pressure 136 mm[Hg] Cristo RIVERA [facility] 12-04-2023 07:48-0400 Body height 167.64 cm MD Mary Beth Pitts Work Phone: [facility] 12-04-2023 07:48-0400 Body mass index (BMI) [Ratio] 0.8 kg/m2 MD Mary Beth Pitts Work Phone: [facility] 12-04-2023 07:48-0400 Body weight 2.43 kg MD Mary Beth Pitts Work Phone: [facility] 12-04-2023 07:42-0400 Body temperature 97.7 [degF] MD Mary Beth Pitts Work Phone: [facility] 12-04-2023 07:42-0400 Diastolic blood pressure 62 mm[Hg] MD Mary Beth Pitts Work Phone: [facility] 12-04-2023 07:42-0400 Heart rate 64 /min MD Mary Beth Pitts Work Phone: [facility] 12-04-2023 07:42-0400 Respiratory rate 18 /min MD Mary Beth Pitts Work Phone: [facility] 12-04-2023 07:42-0400 Systolic blood pressure 110 mm[Hg] MD Mary Beth Pitts Work Phone: [facility] 11-26-2023 09:55-0400 Body height 167.64 cm MD Mary Beth Pitts Work Phone: [facility] 11-26-2023 09:55-0400 Body mass index (BMI) [Ratio] 26.6 kg/m2 MD Mar yBeth Pitts Work Phone: [facility] 11-26-2023 09:55-0400 Body weight 74.84 kg MD Mary Beth Pitts Work Phone: [facility] 11-26-2023 09:55-0400 Diastolic blood pressure 58 mm[Hg] MD Mary Beth Pitts Work Phone: [facility] 11-26-2023 09:55-0400 Heart rate 76 /min MD Mary Beth Pitts Work Phone: [facility] 11-26-2023 09:55-0400 Systolic blood pressure 95 mm[Hg] MD Mary Beth Pitts Work Phone: [facility] 11-19-2023 08:45-0400 Blood Pressure Location Cristo RIVERA [facility] 11-19-2023 08:45-0400 Diastolic blood pressure 59 mm[Hg] Cristoantoine RIVERA [facility] 11-19-2023 08:45-0400 Heart rate 81 /min Cristoantoine RIVERA [facility] 11-19-2023 08:45-0400 Respiratory rate 16 /min Cristoantoine RIVERA [facility] 11-19-2023 08:45-0400 Systolic blood pressure 125 mm[Hg] Cristo RIVERA [facility] 11-08-2023 07:20-0400 Body height 167.64 cm MD Mary Beth Pitts Work Phone: [facility] 11-08-2023 07:20-0400 Body mass index (BMI) [Ratio] 0.8 kg/m2 MD Mary Beth Pitts Work Phone: [facility] 11-08-2023 07:20-0400 Body weight 2.43 kg MD Mary Beth Pitts Work Phone: [facility] 11-08-2023 07:08-0400 Body temperature 97.5 [degF] MD Mary Beth Pitts Work Phone: [facility] 11-08-2023 07:08-0400 Diastolic blood pressure 53 mm[Hg] MD Mary Beth Pitts Work Phone: [facility] 11-08-2023 07:08-0400 Heart rate 80 /min MD Mary Beth Pitts Work Phone: [facility] 11-08-2023 07:08-0400 Respiratory rate 18 /min MD Mary Beth Pitts Work Phone: [facility] 11-08-2023 07:08-0400 Systolic blood pressure 91 mm[Hg] MD Mary Beth Pitts Work Phone: [facility] 10-18-2023 09:18-0400 Body height 165.1 cm [facility] 10-18-2023 09:18-0400 Body mass index (BMI) [Ratio] 30.2 kg/m2 [facility] 10-18-2023 09:18-0400 Body weight 82.55 kg [facility] 10-18-2023 09:18-0400 Diastolic blood pressure 50 mm[Hg] [facility] 10-18-2023 09:18-0400 Heart rate 87 /min [facility] 10-18-2023 09:18-0400 Systolic blood pressure 89 mm[Hg] [facility] 06-25-2023 08:50-0500 Blood Pressure Location Cristo RIVERA [facility] 06-25-2023 08:50-0500 Diastolic blood pressure 64 mm[Hg] Cristo RIVERA [facility] 06-25-2023 08:50-0500 Heart rate 74 /min Cristo RIVERA [facility] 06-25-2023 08:50-0500 Respiratory rate 16 /min Cristo RIVERA [facility] 06-25-2023 08:50-0500 Systolic blood pressure 108 mm[Hg] Cristo RIVERA [facility] 02-26-2023 08:57-0400 Blood Pressure Location Cristo RIVERA [facility] 02-26-2023 08:57-0400 Diastolic blood pressure 60 mm[Hg] Cristo RIVERA [facility] 02-26-2023 08:57-0400 Heart rate 69 /min Cristo RIVERA [facility] 02-26-2023 08:57-0400 Respiratory rate 16 /min Cristo RIVERA [facility] 02-26-2023 08:57-0400 Systolic blood pressure 118 mm[Hg] Cristo RIVERA [facility] 11-27-2022 09:34-0400 Blood Pressure Location Cristo RIVERA [facility] 11-27-2022 09:34-0400 Diastolic blood pressure 51 mm[Hg] Cristo RIVERA [facility] 11-27-2022 09:34-0400 Heart rate 64 /min Cristo RIVERA [facility] 11-27-2022 09:34-0400 Respiratory rate 16 /min Cristo RIVERA [facility] 11-27-2022 09:34-0400 Systolic blood pressure 89 mm[Hg] Cristo RIVERA [facility] 09-11-2022 12:30-0400 Body height 165.1 cm Mary Beth Pitts Other [employer] Other 09-11-2022 12:30-0400 Body mass index (BMI) [Ratio] 29.78 kg/m2 Mary Beth Pitts Other [employer] Other 09-11-2022 12:30-0400 Body weight 81.19 kg Mary Beth Pitts Other [employer] Other 09-11-2022 12:30-0400 Diastolic blood pressure 62 mm[Hg] Mary Beth Pitts Other [employer] Other 09-11-2022 12:30-0400 SaO2% (BldA) [Mass fraction] 94 % Mary Beth Pitts Other [employer] Other 09-11-2022 12:30-0400 Systolic blood pressure 110 mm[Hg] Mary Beth Pitts Other [employer] Other 08-24-2022 11:45-0400 Body height 165.1 cm Mary Beth Pitts Other [employer] Other 08-24-2022 11:45-0400 Body mass index (BMI) [Ratio] 29.62 kg/m2 Mary Beth Pitts Other [employer] Other 08-24-2022 11:45-0400 Body weight 80.74 kg Mary Beht Pitts Other [employer] Other 08-24-2022 11:45-0400 Diastolic blood pressure 58 mm[Hg] Mary Beth Pitts Other [employer] Other 08-24-2022 11:45-0400 SaO2% (BldA) [Mass fraction] 95 % Mary Beth Pitts Other [employer] Other 08-24-2022 11:45-0400 Systolic blood pressure 112 mm[Hg] Mary Beth Pitts Other [employer] Other 07-11-2022 09:45-0500 Body height 165.1 cm Mary Beth Pitts Other [employer] Other 07-11-2022 09:45-0500 Body mass index (BMI) [Ratio] 29.62 kg/m2 Mary Beth Pitts Other [employer] Other 07-11-2022 09:45-0500 Body weight 80.74 kg Mary Beth Pitts Other [employer] Other 07-11-2022 09:45-0500 Diastolic blood pressure 52 mm[Hg] Mary Beth Pitts Other [employer] Other 07-11-2022 09:45-0500 SaO2% (BldA) [Mass fraction] 97 % Mary Beth Pitts Other [employer] Other 07-11-2022 09:45-0500 Systolic blood pressure 108 mm[Hg] Mary Beth iPtts Other [employer] Other 06-05-2022 09:38-0500 Diastolic blood pressure 60 mm[Hg] Cristo RIVERA [facility] 06-05-2022 09:38-0500 Mean blood pressure 84 mm[Hg] Cristo RIVERA [facility] 06-05-2022 09:38-0500 Systolic blood pressure 131 mm[Hg] Cristo RIVERA [facility] 06-05-2022 09:32-0500 Blood Pressure Location Cristo RIVERA [facility] 06-05-2022 09:32-0500 Diastolic blood pressure 73 mm[Hg] Cristo RIVERA [facility] 06-05-2022 09:32-0500 Heart rate 74 /min Cristo RIVERA [facility] 06-05-2022 09:32-0500 Respiratory rate 16 /min Cristo RIVERA [facility] 06-05-2022 09:32-0500 Systolic blood pressure 149 mm[Hg] Cristo RIVERA [facility] 03-19-2022 11:53-0500 Body temperature 98 [degF] MD Mary Beth Pitts Work Phone: [facility] 03-19-2022 11:53-0500 Diastolic blood pressure 74 mm[Hg] MD Mary Beth Pitts Work Phone: [facility] 03-19-2022 11:53-0500 Heart rate 86 /min MD Mary Beth Pitts Work Phone: [facility] 03-19-2022 11:53-0500 Respiratory rate 18 /min MD Mary Beth Pitts Work Phone: [facility] 03-19-2022 11:53-0500 SaO2% (BldA) [Mass fraction] 97 % MD Mary Beth Pitts Work Phone: [facility] 03-19-2022 11:53-0500 Systolic blood pressure 135 mm[Hg] MD Mary Beth Pitts Work Phone: [facility] 03-19-2022 05:36-0500 Body weight 91.9 kg MD Mary Beth Pitts Work Phone: [facility] 03-16-2022 23:20-0400 Body height 165.1 cm MD Mary Beth Pitts Work Phone: [facility] 03-14-2022 12:28-0400 Blood Pressure Location Cristo RIVERA [facility] 03-14-2022 12:28-0400 Diastolic blood pressure 74 mm[Hg] Cristo RIVERA [facility] 03-14-2022 12:28-0400 Heart rate 80 /min Cristo RIVERA [facility] 03-14-2022 12:28-0400 Systolic blood pressure 150 mm[Hg] Cristo RIVERA [facility] 02-27-2022 09:24-0400 Blood Pressure Location Cristoantoine RIVERA [facility] 02-27-2022 09:24-0400 Diastolic blood pressure 72 mm[Hg] Cristo RIVERA [facility] 02-27-2022 09:24-0400 Heart rate 83 /min Cristoantoine RIVERA [facility] 02-27-2022 09:24-0400 Respiratory rate 16 /min Cristoantoine RIVERA [facility] 02-27-2022 09:24-0400 Systolic blood pressure 130 mm[Hg] Cristo RIVERA [facility] 09-19-2021 13:45-0400 Diastolic blood pressure 48 mm[Hg] Roberta George DO Work Phone: [facility] 09-19-2021 13:45-0400 Heart rate 65 /min Roberta George DO Work Phone: [facility] 09-19-2021 13:45-0400 Respiratory rate 20 /min Roberta George DO Work Phone: [facility] 09-19-2021 13:45-0400 SaO2% (BldA) [Mass fraction] 95 % Roberta Vazquez DO Work Phone: [email or web address] 09-19-2021 13:45-0400 Systolic blood pressure 113 mm[Hg] Roberta Vazquez DO Work Phone: [email or web address] 09-19-2021 13:23-0400 Body temperature 96.91 [degF] Roberta George MAKI Work Phone: [email or web address] 09-19-2021 11:57-0400 Body height 170.2 cm Roberta Vazquez DO Work Phone: [email or web address] 09-19-2021 11:57-0400 Body mass index (BMI) [Ratio] 25.84 kg/m2 Roberta Vazquez DO Work Phone: [email or web address] 09-19-2021 11:57-0400 Body weight 74.84 kg Roberta George MAKI Work Phone: [facility] Encounters Encounter Date Encounter Type Care Provider Facility Start: 09-29-2024 ambulatory Cristo RIVERA Facili ty:[facility] Start: 07-03-2024 End: 07-03-[address] [facility] Start: 06-25-2024 End: 06-25-2024 ambulatory [facility] Work Phone: Start: 06-25-2024 End: 06-25-2024 Patient encounter procedure [facility] Work Phone: Start: 06-20-2024 End: 06-20-2024 ambulatory Cristo RIVERA Facility:[facility] Start: 06-20-2024 End: 06-20-2024 Patient encounter procedure Cristo RIVERA [facility] Start: 06-09-2024 End: 06-09-2024 ambulatory Cristo RIVERA Facility:[facility] Start: 06-09-2024 End: 06-09-2024 Patient encounter procedure [facility] Start: 03-25-2024 End: 03-25-2024 Lab Drop off Cristo RIVERA [facility] Start: 03-25-2024 End: 03-25-2024 ambulatory Cristo RIVERA Facility:[facility] Start: 03-25-2024 End: 03-25-2024 Patient encounter procedure Cristo RIVERA [facility] Start: 02-28-2024 End: 02-28-2024 ambulatory Cristo RIVERA Facility:[facility] Start: 02-28-2024 End: 02-28-2024 Patient encounter procedure Cristo RIVERA [facility] Start: 02-15-2024 End: 02-15-2024 ambulatory Cristo RIVERA Facility:[facility] Start: 02-15-2024 End: 02-15-2024 Lab Drop off Cristo RIVERA [facility] Start: 02-15-2024 End: 02-15-2024 ambulatory Cristo RIVERA Facility:[facility] Start: 02-15-2024 End: 02-15-2024 Patient encounter procedure Cristo RIVEAR [facility] Start: 12-24-2023 End: 12-24-2023 ambulatory MARSHALL LUONG [facility] Start: 12-21-2023 End: 12-21-2023 ambulatory Cristo RIVERA Facility:[facility] [place] Start: 12-21-2023 End: 12-21-2023 Patient encounter procedure Cristo RIVERA [facility] Start: 12-19-2023 End: 12-19-[address] [facility] Start: 12-10-2023 Patient encounter procedure [facility] Start: 12-04-2023 End: 12-04-2023 ambulatory MD Mary Beth Pitts Work Phone: [facility] Work Phone: Start: 12-04-2023 End: 12-04-2023 Discharged Recurring MD Mary Beth Pitts Work Phone: [facility] Work Phone: Start: 11-26-2023 End: 11-26-2023 ambulatory MD Mary Beth Pitts Work Phone: [facility] Work Phone: Start: 11-26-2023 End: 11-26-2023 Patient encounter procedure MD Mary Beth Pitts Work Phone: [facility] Work Phone: Start: 11-23-2023 End: 11-23-2023 ambulatory HINA CARD [facility] Start: 11-23-2023 Non-patient / Non-visit MD Candie Pitts Work Phone: [facility] Work Phone: Start: 11-22-2023 ambulatory MARSHALL Hel[facility] Start: 11-19-2023 End: 11-19-2023 ambulatory Cristo RIVERA Facility:[facility] Start: 11-19-2023 End: 11-19-2023 Patient encounter procedure Cristo RIVERA [facility] Start: 11-08-2023 Registered Recurring MD Mary Beth Pitts Work Phone: [facility] Work Phone: Start: 10-26-2023 End: 10-26-[address] [facility] Start: 10-26-2023 End: 10-26-2023 Encounter for preprocedural cardiovascular examination [facility] Start: 10-26-2023 Non-patient / Non-visit MD Candie Pitts Work Phone: [facility] Work Phone: Start: 10-18-2023 End: 10-18-2023 ambulatory [facility] Work Phone: Start: 10-18-2023 End: 10-18-2023 Patient encounter procedure [facility] Work Phone: Start: 10-12-2023 Evaluation and manag ement of inpatient [facility] Start: 10-10-2023 Evaluation and manag ement of inpatient [facility] Start: 10-09-2023 Evaluation and manag ement of inpatient [facility] Start: 10-08-2023 Evaluation and manag ement of inpatient [facility] Start: 10-07-2023 Evaluation and manag [facility]ment of inpatient [facility] Start: 10-06-2023 Evaluation and manag ement of inpatient [facility] Start: 10-06-2023 Evaluation and manag ement of inpatient [facility] Start: 10-06-2023 Evaluation and manag ement of inpatient [facility] Start: 10-06-2023 Evaluation and manag ement of inpatient [facility] Start: 10-05-2023 End: 10-13-2023 Evaluation and management of inpatient DEBRA [facility] Start: 10-05-2023 Non-patient / Non-visit [facility] Work Phone: Start: 10-04-2023 Non-patient / Non-visit [facility] Work Phone: Start: 09-27-2023 ambulatory MARSHALL LUONG [facility] Start: 09-20-2023 ambulatory MARSHALL LUONG [facility] Start: 09-13-2023 Non-patient / Non-visit [facility] Work Phone: Start: 09-12-2023 Encounter for other preprocedural examination [facility] Start: 09-12-2023 Evaluation and manag ement of inpatient MARSHALL LUONG [facility] Start: 09-10-2023 End: 09-12-2023 Encounter for other preprocedural examination [facility] Start: 09-10-2023 End: 09-12-2023 Evaluation and management of inpatient [facility] Start: 09-03-2023 Non-patient / Non-visit [facility] Work Phone: Start: 08-21-2023 End: 08-21-[address] [facility] Start: 08-18-2023 Non-patient / Non-visit [facility] Work Phone: Start: 08-17-2023 End: 08-17-[address] [facility] Start: 07-12-2023 End: 07-12-2023 ambulatory KAMILA WILSON Not Available Start: 06-25-2023 End: 06-25-2023 ambulatory Cristo RIVERA Facility: [facility] Start: 06-25-2023 End: 06-25-2023 Patient encounter procedure Cristo RIVERA [facility] [place] Start: 04-04-2023 End: 04-04-2023 ambulatory Mary Beth Pitts Other [employer] Other Start: 04-04-2023 Telephone encounter Mary Beth Pitts [facility] Start: 02-26-2023 End: 02-26-2023 Patient encounter procedure Cristo RIVERA [facility] Start: 12-29-2022 End: 12-29-2022 ambulatory Mahendra Escalante Other [employer] Other Start: 12-29-2022 Telephone encounter Mahendra barry [employer] Start: 11-27-2022 End: 11-27-2022 Patient encounter procedure Cristo RIVERA [facility] Start: 11-23-2022 End: 11-23-2022 ambulatory Mary Beth Pitts Other [employer] Other Start: 11-23-2022 Telephone encounter Mary Beth Hong [facility] Start: 09-18-2022 End: 09-18-2022 ambulatory Mary Beth Pitts Other [employer] Other Start: 09-18-2022 Telephone encounter Mary Beth Hong [facility] Start: 09-11-2022 End: 09-11-2022 ambulatory Mary Beth Pitts Other [employer] Other Start: 09-11-2022 Office outpatient vi sit 15 minutes Mary Beth Pitts [facility] Start: 08-24-2022 End: 08-24-2022 ambulatory Mary Beth Pitts Other [employer] Other Start: 08-24-2022 Office outpatient vi sit 15 minutes Mary Beth Pitts [facility] Start: 07-20-2022 End: 07-20-2022 Patient encounter procedure Cristo RIVERA [facility] [place] Start: 07-18-2022 End: 06-29-2022 Patient encounter procedure Cristo R NICOLE [facility] Start: 07-12-2022 End: 07-12-2022 ambulatory Mary Beth Pitts Other [facility] [employer] Other Start: 07-12-2022 Telephone encounter Mary Beth Pitts [facility] Start: 07-11-2022 Office outpatient vi sit 15 minutes Mary Beth Pitts [facility] Start: 07-11-2022 End: 07-11-2022 ambulatory MD Mary Beth Pitts Work Phone: [facility] Work Phone: Start: 07-11-2022 End: 07-11-2022 Patient encounter procedure MD Mary Beth Pitts Work Phone: [facility] [place] Work Phone: Start: 06-05-2022 End: 06-05-2022 Patient encounter procedure Cristo RIVERA [facility] [place] Start: 04-29-2022 End: 04-30-[address] CRISTO RIVERA Facility: Start: 03-17-[address] Jc Shetty Facility:[id number] Start: 03-17-[address] Mary Beth Ptits Facility:[facility] Start: 03-17-[address] Mary Beth Pitts Facility:[id number] Start: 03-16-2022 End: 03-19-2022 Evaluation and management of inpatient MD Mary Beth Pitts Work Phone: [facility] Start: 03-16-2022 End: 03-17-2022 ambulatory GALEN MEDINA Facility:[facility] Start: 03-14-2022 End: 03-14-2022 Patient encounter procedure Cristo RIVERA [facility] [place] Start: 03-03-2022 End: 03-04-[address] MARY BETH PITTS Facility:[facility] Start: 02-27-2022 End: 02-27-2022 Patient encounter procedure Cristo RIVERA [facility] [place] Start: 12-16-2021 End: 12-17-2021 [facility] Start: 12-08-2021 Adult health examination Supriya Escalante Other [employer] Other Start: 12-08-2021 Problem, abnormal examination Mahendra Virgenvasiliy Other [employer] Other Start: 12-01-2021 End: 12-02-2021 ambulatory MARY BETHJAMIE PITTS [facility] Start: 12-01-2021 End: 12-01-2021 Subsequent hospital visit by physician Mary Beth Pitts MD Work Phone: [facility] Start: 09-19-2021 End: 09-19-2021 ambulatory MARY BETH PITTS [facility] Start: 09-19-2021 End: 09-19-2021 Subsequent hospital visit by physician Roberta Vazquez DO Work Phone: [facility] Start: 07-05-2021 End: 07-06-2021 ambulatory Gerald Villagomez MD [facility] Start: 06-14-2021 End: 06-15-2021 ambulatory MD Mary Beth Pitts [facility] Start: 06-09-2021 End: 06-09-2021 ambulatory MD Mary Beth Pitts Facility:[facility] Start: 06-08-2021 End: 06-09-2021 ambulatory Gerald Villagomez MD Facility:[facility] Start: 06-02-2021 End: 06-03-2021 ambulatory MD Mary Beth Pitts Facility:[facility] Start: 05-27-2021 End: 05-28-2021 ambulatory Gerald Villagomez MD Facility:[facility] Start: 05-19-2021 End: 05-20-2021 ambulatory MD Mary Beth Pitts [facility] Start: 09-27-2020 End: 09-27-2020 Subsequent hospital visit by physician Mary Beth Pitts MD Work Phone: [facility] Start: 03-29-2020 End: 03-30-2020 Patient encounter procedure SWETHA WINTER Facility:[facility] Start: 02-23-2020 End: 02-24-2020 Patient encounter procedure MARY BETH PITTS Facility:[facility] Start: 02-12-2020 End: 02-14-2020 Evaluation and management of inpatient PEREZ ALI Facility:[facility] Start: 11-04-2019 End: 11-05-2019 Evaluation and management of inpatient SANTANA MASROOR Facility:[facility] Start: 05-12-2019 End: 05-12-2019 Subsequent hospital visit by physician Mary Beth Pitts MD Work Phone: [facility] Procedures Date Procedure Procedure Detail Performing Clinician Start: 07-03-2024 Follow-up visit DEBRA HOY Start: 12-19-2023 Follow-up visit DEBRA HOY Start: 11-23-2023 Follow-up visit DEBRA HOY Start: 10-26-2023 Bacteria identified in Urine by Culture MD Mary Beth Pitts Work Phone: Start: 10-26-2023 Follow-up visit DEBRA HOY Start: 10-04-2023 Bacteria identified in Urine by Culture Start: 10-04-2023 Blood Culture 1 Start: 10-04-2023 Blood Culture 2 Start: 08-17-2023 Follow-up visit DEBRA HOY Start: 07-18-2022 Cystoscopy Cristo MARTIN Start: 07-11-2022 Plain X-ray of right hip MD Mary Beth Pitts Work Phone: Start: 11-04-2022 [facility] Angio w/grafts MD [...] on above: Performed By: #### [id number] ####[facility] [facility] [address], [facility] Start: 11-04-2019 MEASURE OF ARTERIAL SATURATION, PERIPHERAL, PERC APPROACH REYNALDO COX Start: 11-04-2019 MEASURE OF CARDIAC S AMPL \T\ PRESSURE, L HEART, PERC APPROACH BLAS OSPINA Start: 11-04-2019 REPLACEMENT OF AORTI C VALVE WITH ZOOPLASTIC, PERC APPROACH SANTANA REAGAN Start: 10-31-2019 Antibody screen NIC AYALA Comment on above: Performed By: #### [id number] #### [facility] [address] [facility] [address], [facility] Start: 05-12-2019 Blood count complete automated Blas Ospina MD Work Phone: Start: 03-03-2015 Screening for malign ant neoplasm of prostate Mahendra Escalante Other Cataract (disorder) Cristo NICOLE Coronary artery bypa ss grafts x 4 Cristo RIVERA Replacement of aortic valve Cristo RIVERA Screening for malign ant neoplasm of prostate Mary Beth Pitts Other Screening for malign ant neoplasm of prostate Mahendra Escalante Other Structure of femoral artery (body structure) Cristo RIVERA Urine culture MD Mary Beth murcia Work Phone: Plan of Treatment Date Care Activity Detail Author Start: 07-11-2022 Duplex scan of lower limb veins US venous duplex LE RT [facility] Start: 07-11-2022 US Lower extremity v ein - right [facility] Start: 03-21-2022 [facility] Start: 03-20-2022 Blood chemistry [facility] Start: 03-20-2022 [facility] Start: 03-19-2022 [facility] Start: 03-18-2022 Referral to urologist [facility] Start: 03-17-2022 [facility] Start: 03-17-2022 Hospital admission [facility] Start: 03-17-2022 Referral to typer [facility] Start: 03-17-2022 [facility] Start: 01-12-2022 Influenza vaccination [employer] Start: 09-19-2021 End: 09-19-2021 Xcapsl ctrc rmvl insj io lens prosth w/o ecp EYE CATARACT EMULSIFICATION IOL IMPLANT COMBINED FORMS OF AGE RELATED CATARACT 2+NS, 2+PSC, 2+CS 09/19/2021 12:45 PM EDT [facility] Start: 09-04-2021 COVID-19 Vaccine (4 - Booster for Pfizer series) COVID-19 Vaccine (4 - Booster for Pfizer series) TITA CARRERA [employer] Start: 01-12-2021 Influenza vaccination Flu vacc ine (Season Ended) [employer] Work Phone: Start: 03-21-2019 A1C test (Diabetic o r Prediabetic) A1C test (Diabetic or Prediabetic) [employer] Phone: Start: 03-21-2019 Creatinine measurement [facility] Start: 03-21-2019 Creatinine monitoring Creatinine mon itoring [employer] Phone: Start: 03-21-2019 Diabetic microalbumi lucila test Diabetic microalbuminuria test [employer] Phone: Start: 03-21-2019 Hemoglobin A1c measurement A1C test (Diabetic or Prediabetic) [employer] Phone: Start: 03-21-2019 [facility] Start: 03-21-2019 Lipid screen Lipid screen [employer] Work Phone: Start: 03-21-2019 Potassium [Moles/vol ume] in Serum or Plasma Potassium [facility] Start: 03-21-2019 Potassium monitoring Potassium monit oring [employer] Phone: Start: 01-12-2019 Influenza vaccination Flu vaccine (# 1) [employer] Phone: Start: 11-03-2018 Annual Wellness Visi t (AWV) Annual Wellness Visit (AWV) [employer] Phone: Start: 06-21-2018 Hemoglobin A1c measurement A1C test (Diabetic or Prediabetic) [facility] Start: 2013 Abdominal aortic ane urysm screening AAA screen [facility] Start: 2013 Pneumococcal 65+ yea rs Vaccine (1 - PCV) Pneumococcal 65+ years Vaccine (1 - PCV) [facility] Start: 2013 Pneumococcal 65+ yea rs Vaccine (1 of 1 - PPSV23) Pneumococcal 65+ years Vaccine (1 of 1 - PPSV23) [employer] Phone: Start: 1998 Colon cancer screen colonoscopy Colon cancer screen colonoscopy [employer] Phone: Start: 1998 Screening for malign ant neoplasm of colon Colon cancer screen colonoscopy [employer] Phone: Start: 1998 Shingles Vaccine (1 of 2) Shingles V accine (1 of 2) [facility] Start: 1993 Screening for malign ant neoplasm of colon [facility] Start: 1967 DTaP/Tdap/Td vaccine (1 - Tdap) DTaP/Tdap/Td vaccine (1 - Tdap) [facility] Start: 1966 Hepatitis C screening Hepatitis C nm [employer] [facility] Start: 1960 COVID-19 Vaccine (1) COVID-19 Vaccin e (1) [employer] Phone: Start: 1960 Depression Screen Depression Screen [facility] Start: 1959 DTaP/Tdap/Td vaccine (1 - Tdap) DTaP/Tdap/Td vaccine (1 - Tdap) [employer] Phone: Start: 1958 3 comp foot exam completed Diabetic foot exam [employer] Phone: Start: 1958 Diabetic foot examination Diabetic f oot exam [employer] Phone: Start: 1958 Diabetic retinal exam Diabetic retin al exam [employer] Phone: Start: 1948 AAA screen AAA screen [facility] [facility] [employer] Work Phone: Start: 1948 Abdominal aortic ane urysm screening AAA screen [employer] Phone: Start: 1948 Annual Wellness Visi t (AWV) Annual Wellness Visit (AWV) [facility] Start: 1948 Hepatitis C screen Hepatitis C scree n [employer] Phone: Start: 1948 Hepatitis C screening Hepatitis C joby [facility] [employer] Phone: Blood culture for bacteria, including anaerobic screen Blood Culture [facility] End: 12-01-2021 Hemoglobin A1c/Hemoglobin.total in Blood [employer] [place] Phone: Comment on above: Once for 1 Occurrenc es starting 12/01/2021 until 12/01/2021 Oxygen therapy [Mini mum Data Set] Initiate Oxygen Therapy Protocol Respiratory Care Routine Daily until discontinued starting 09/19/2021 [employer] Work Phone: Comment on above: Daily until disconti nued starting 09/19/2021 Patient Education Urinary Tract Infection, Adult (DC) Sepsis, Adult (DC) [facility] Work Phone: Patient referral [facility] Work Phone: XR Chest 2 Views [facility] Immunizations Immunization Date Immunization Notes Care Provider Fa cility 08-28-2022 tetanus and diphther ia toxoids, adsorbed, preservative free, for adult use (2 Lf of tetanus toxoid and 2 Lf of diphtheria toxoid) [facility] 08-28-2022 tetanus and diphther ia toxoids, adsorbed, preservative free, for adult use (5 Lf of tetanus toxoid and 2 Lf of diphtheria toxoid) Mary Beth Pitts Other [employer] Other 05-06-2021 COVID-19, Pfizer Purple top, DILUTE for use, 12+ yrs, 30mcg/0.3mL dose Roberta George DO Work Phone: [employer] Phone: 10-22-2020 COVID-19, Pfizer Purple top, DILUTE for use, 12+ yrs, 30mcg/0.3mL dose Roberta George DO Work Phone: [employer] Phone: 10-01-2020 COVID-19, Pfizer Purple top, DILUTE for use, 12+ yrs, 30mcg/0.3mL dose Roberta George DO Work Phone: [employer] Phone: Payers Date Payer Category Payer Self-pay [id number] 2021 Medicaid 2020 Private Health Insurance 2018 Private Health Insurance [id number] 2014 Medicare MEDICARE MEDICAR E PART A AND B xxxxxxxxxxx 2014-Present [phone] [place] [address] xxxxxxxxxxx [id number] 1959 Medicaid [id number] 1948 Unknown [id number] 2.16.840.1.639847.3.579.2. 647 1948 Unknown [id number] 2.16.840.1.566151.3.579.2. 647 1948 Unknown [id number] 2.16.840.1.864733.3.579.2. 647 1948 Unknown [id number] 2.16.840.1.599565.3.579.2. 647 1948 Unknown [id number] 2.16.840.1.398233.3.579.2. 173 1948 Unknown [id number] 2.16.840.1.262600.3.579.2. 173 1948 Unknown [id number] 2.16.840.1.874605.3.579.2. 173 1948 Unknown [id number] 2.16.840.1.088936.3.579.2. 356 1948 Unknown [id number] 2.16.840.1.386189.3.579.2. 356 1948 Unknown [id number] 2.16.840.1.691048.3.579.2. 356 1948 Unknown [id number] 2.16.840.1.513295.3.579.2. 593 1948 Unknown [id number] 2.16.840.1.429232.3.579.2. 593 1948 Unknown [id number] 2.16.840.1.715179.3.579.2. 593 1948 Unknown [id number] 2.16.840.1.758318.3.579.2. 196 1948 Unknown [id number] 2.16.840.1.813484.3.579.2. 196 1948 Unknown [id number] 2.16.840.1.211769.3.579.2. 196 1948 Unknown [id number] 2.16.840.1.604338.3.579.2. 196 1948 Unknown [id number] 2.16.840.1.959167.3.579.2. 196 1948 Unknown [id number] 2.16.840.1.206408.3.579.2. 196 1948 Unknown [id number] 2.16840.1.499015.3.579.2. 196 1948 Unknown [id number] 2.16.840.1.040049.3.579.2. 1259 1948 Unknown [id number] 2.16.840.1.345986.3.579.2. 72 1948 Unknown [id number] 2.16840.1.957384.3.579.2. 727 1948 Unknown [id number] 2.16840.1.427571.3.579.2. 72 1948 Unknown [id number] 2.16.840.1.750673.3.579.2. 72 1948 Unknown [id number] 2.16.840.1.176808.3.579.2. 72 1948 Unknown [id number] 2.16.840.1.460918.3.579.2. 72 1948 Unknown [id number] 2.16.840.1.048913.3.579.2. 72 1948 Unknown [id number] 2.16.840.1.810729.3.579.2. 727 1948 Unknown [id number] 2.16.840.1.363448.3.579.2. 727 1948 Unknown [id number] 2.16.840.1.693405.3.579.2. 727 1948 Unknown [id number] 2.16.840.1.660241.3.579.2. 72 Medicaid Medicaid [id number] Medicare [id number] Medicare [id number] ..[id number] Unknown HCAP/HFA/FAP Active [id number] Social History Date Type Detail Facility Start: 10-29-2014 End: 12-04-2023 Tobacco smoking status [facility] Former smoker [facility] End: 05-14-1994 History of tobacco use Current smoker [facility] Start: 10-29-2014 End: 09-19-2021 Alcohol intake Current non-drinker of alcohol (finding) [employer] Phone: Start: 1950 Sex Assigned At Not on file [facility] [employer] Phone: Start: 09-09-2021 End: 09-19-2021 Exposure to SARS-CoV-2 (event) Not sure [employer] Phone: End: 05-14-1994 History of tobacco use Cigarette Smoker [employer] Phone: Start: 09-19-2021 Tobacco use and exposure Smokeless tobacco non-user [employer] Phone: Start: 06-25-2023 End: 02-15-2024 Tobacco smoking status Never [facility] Sex Assigned At Male [facility] Start: 1950 Sex Assigned At Male [facility] Start: 06-25-2024 Sex Male (finding) [facility] Medical Equipment Procedure Code Equipment Code Equipment Origin al Text Equipment Identifier Dates Lens Intraocular Bcnvx 19+ Diopt 6x12.5 Mm Acryl Envista - [id number] Start: 09-19-2021 Accu-Chek Softcl ix Lancets - Start: 11-22-2022 Goals Date Patient Goal Desired Activity /State Functional Status Date Assessment Result Facility 06-09-2024 Functional Status N/A [facility] 02-15-2024 Functional Status N/A [facility] 12-21-2023 Functional Status N/A [facility] 11-19-2023 Functional Status N/A [facility] 06-25-2023 Functional Status N/A [facility] 02-26-2023 Functional Status N/A [facility] 11-27-2022 Functional Status N/A [facility] 06-05-2022 Functional Status N/A [facility] 03-19-2022 Functional status Patient at Baseline [facility] Work Phone: 03-16-2022 Functional status Functional Status Comme nt [facility] Work Phone: 03-14-2022 Functional Status N/A [facility] 02-27-2022 Functional Status N/A [facility] Mental Status Date Assessment Result Facility 03-19-2022 Cognitive function Cognitive Sta tus Patient at Baseline [facility] Work Phone: Clinical Notes 06-09-2021 to 07-03-2024 Note Date & Type Note Facility [facility]24 Hospital Discharge instructions Patient Education 06/09/2024 [...] Follow these instructions at home: Medicines Take fgbt-qja-sflurej and prescription medicines only as told by [...] important. Where to find more information National [place] of Diabetes and Digestive and Kidney Diseases: [...] depends on the type of prostatitis. Take flmk-nds-arpglyo and prescription medicines only as told by [...] provider. Document Revised: 03/15/2023 Document Reviewed: 03/15/2023 [employer] Patient Education 2023 [employer]. Follow Up Care 02/15/2024 10:00:51 With:NICOLE DIAZ, Cristo Frances, URL Address: [facility] [address] [place] [address]- [phone] When: Unknown Comments:4 mos w/ PVR [facility] 06-09-2024 Note Patient Education Infectious Disease Prostatitis [...] these instructions at home: Medicines ??? Take mlxz-pws-nbtxvqw and prescription medicines only as told by [...] This is important. (more content not included)... [facility] 02-15-2024 Hospital Discharge instructions Patient Education [...] Follow these instructions at home: Medicines Take lkej-tez-qxwcnyv and prescription medicines only as told by [...] important. Where to find more information National [place] of Diabetes and Digestive and Kidney Diseases: [...] depends on the type of prostatitis. Take mnie-zok-hqhbeqg and prescription medicines only as told by [...] provider. Document Revised: 03/15/2023 Document Reviewed: 03/15/2023 [employer] Patient Education 2023 [employer]. Follow Up Care 12/21/2023 08:32:25 With:NICOLE DIAZ, Cristo Frances, URL Address: [address] [place], [place] [id number]- When: Unknown [facility] 02-15-2024 Note Patient Education Infectious Disease Prostatitis [...] these instructions at home: Medicines ? Take ogqm-ywf-gczoxry and prescription medicines only as told by [...] Where to find more information ? [employer] [place] of [employer] and Digestive a (more content not included)... [facility] 12-24-2023 Note [facility] 12-24-2023 Note [facility] 12-21-2023 Hospital Discharge instructions Patient Education [...] told by your health care provider. Take eton-ktk-wlisqzl and prescription medicines only as told by [...] provider. Document Revised: 11/08/2021 Document Reviewed: 11/08/2021 broadbandchoices Patient Education 2022 [employer]. 12/21/2023 08:28:11 Epididymitis Epididymitis Epididymitis is inflammation [...] Follow these instructions at home: Medicines Take kcak-mnw-svkjtwx and prescription medicines only as told by [...] provider. Document Revised: 12/07/2021 Document Reviewed: 12/07/2021 broadbandchoices Patient Education 2022 [employer]. Follow Up Care 11/19/2023 09:46:55 With:NICOLE DIAZ, Cristo Frances, URL Address: [address] [place] [address] [place] [address]- When: Unknown [facility] 12-21-2023 Note Patient Education Urology Orchitis Orchitis [...] by your health care provider. ? Take lhha-iij-laaqyfv and prescription medicines only as told by [...] health care provider (more content not included)... [facility] 12-19-2023 Note [facility] 11-23-2023 Note S/P TAVR Recent TTE - Aortic valve stable- - awaiting repeat echocardiogram scheduled at [facility] this week to assess cardiac function and AO valve/doppler [facility] 11-23-2023 Note [facility] 11-23-2023 Note Hypertension labile with dizziness/lightheadedness, syncope= decrease lisinopril to 10 mg daily and if b/p remains low and symptomatic recommended to then decrease to 5 mg daily. [facility] 11-23-2023 Note [facility] 11-23-2023 Note [facility] 11-22-2023 Note [facility] 11-19-2023 Hospital Discharge instructions Patient Education [...] Follow these instructions at home: Medicines Take ghrw-jzg-dobalmn and prescription medicines only as told by [...] provider. Document Revised: 12/07/2021 Document Reviewed: 12/07/2021 [employer]choices Patient Education 2022 [employer]. 11/19/2023 09:36:26 Orchitis Orchitis Orchitis is inflammation [...] told by your health care provider. Take xojs-fcy-xhgkdby and prescription medicines only as told by [...] provider. Document Revised: 11/08/2021 Document Reviewed: 11/08/2021 broadbandchoices Patient Education 2022 [employer]. Follow Up Care 05/28/2023 09:33:29 With:NICOLE DIAZ, Cristo Frances, URL Address: [facility] [address] , [place] [phone] When: Unknown Comments:1 month (no labs) [facility] 11-19-2023 Note Patient Education Urology Epididymitis Epididymitis [...] these instructions at home: Medicines ? Take gslv-wkn-mnglzll and prescription medicines only as told by [...] fluid to keep (more content not included)... [facility] 11-16-2023 Note [facility] 11-08-2023 Progress note Note Date/Time November 08, 2023 7:20am [facility] [address] [place] [address] Wound Center Provider Note Signed Patient: Marilu Dan MR#: [id number] : 1950 Acct:[id number] Age/Sex: 73 / M Copies to: Mary BethMD Narcisa Blanco APRN~ HPI Date of Visit Date of Visit: Date of Service: 11/08/2023 Time of Service: 07:18 Narrative HPI: 10/30/23 Marilu is a 73 year old male presenting to [facility] wound care for an initial visit for eval and treatment of scrotal/sacral/buttock area ulcers and fungal rash. He was referred by urology. His and daughter are present today. He [facility] and this should continue. 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 Assistive Device Used Today: Cane Lives with:: Spouse Appetite Description: Within Normal Limits Who helps w/ dressing change?: Family and Home Health Why Do You Need Help?: Can't Reach Ulcer, Unsafe leave home by self and Taxing effort to leave home Smoking Status: Former smoker [facility] Medical History (Updated 10/30/23 @ 07:26 [...] Pressure Ulcer/Injury Staging: Stage 3 Bed Appearance: [place] and Yellow Percent of Wound Bed Granulated/Red: 80 Percent of Devitalized: 20 Length (cm): 1.8 Width (cm): 1.2 Depth (cm): 0.1 CM Sq: 2.160 Surrounding Tissue Appearance: [place] Surrounding Tissue Temp: Warm Drainage Amount: Moderate [...] Diabetes mellitus, type 2: Qualifiers: Diabetes mellitus terminal superintendent insulin use: without terminal superintendent use Diabetes mellitus complication status: with circulatory [...] DD/ 7 Signed By: <Electronically signed by JOSE ENRIQUE Mckee> 11/08/237[address] [facility] Work Phone: 1(754) 462-658806-18-2024 Progress note Author Narcisa Mckee [facility] October 30, 2023 7:33am Note Date/Time October 30, 2023 7:33 am [facility] [address] [place] [address] Wound Center Provider Note Signed Patient: Marilu Dan MR#: [id number] : 1950 Acct:[id number] Age/Sex: 73 / M Copies to: MD Narcisa Gibson APRN~ HPI Date of Visit Date of Visit: Date of Service: 10/30/2023 Time of Service: 07:23 Narrative HPI: 10/30/23 Marilu is a 73 year old male presenting to [facility] wound care for an initial visit for eval and treatment of scrotal/sacral/buttock area ulcers and fungal rash. He was referred by urology. His and daughter are present today. He has hhc through [facility] and this should continue. 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 Assistive Device Used Today: Kenny Lives with:: Spouse Appetite Description: Within Normal Limits Who helps w/ dressing change?: Family and Home Health Why Do You Need Help?: Can't Reach Ulcer, Unsafe leave home by self and Taxing effort to leave home Smoking Status: Former smoker [facility] Medical History (Updated 10/30/23 @ 07:26 [...] Pressure Ulcer/Injury Staging: Stage 3 Bed Appearance: [place] and Yellow Percent of Wound Bed Granulated/Red: 5 Percent of Devitalized: 95 Length (cm): 4.8 Width (cm): 2.5 Depth (cm): 0.2 CM Sq: 12.000 Surrounding Tissue Appearance: [place] Surrounding Tissue Temp: Warm Drainage Amount: Moderate [...] Diabetes mellitus, type 2: Qualifiers: Diabetes mellitus detention insulin use: without detention use Diabetes mellitus complication status: with circulatory complication Code(s): E11.9 - Type 2 diabetes mellitus without complications (4) Use of cane as ambulatory aid: Code(s): Z99.89 - Dependence on other enabling machines and devices (5) Wound pain: (6) Inflammation: Plan see orders and hpi Time spent with patient Time Spent With Patient (min): 20 Dictated By: Narcisa Mckee APRN DD/ Signed By: <Electronically signed by JOSE ENRIQUE Mckee> 10/30/23 0733 [facility] Work Phone: 1(258) 348-780206-14-2024 [facility] NoteSent the AVS to [facility] 10-12-2023 [facility]-11-2023 [facility]2024 [facility] 10-11-2023 NoteSocial worker met with patient at the bedside to discuss discharge plans and need for HHC. table worker sent out several HHC referrals. Awaiting accepting agency. [facility] will continue to follow. [facility] accepted. AVS updated.[facility]05-30-2024 Note [facility]05-30-2024 [facility]-2024 [facility]-29-2024 Note [facility]05-29-2024 [facility]-2024 Note [facility]05-27-2024 [facility]24 Note [facility]05-25-2024 [facility]-2024 Note [facility]05-09-2024 [facility]-01-20[facility]-2024 Note [facility]04-29-20[facility]-2024 Note [facility]04-05-2024 [facility] Hospital Discharge instructions Patient Education 06/25/2023 [...] provider. Document Revised: 04/05/2020 Document Reviewed: 04/05/2020 [employer]choices Patient Education 2022 [employer]. Follow Up Care 06/20/2023 07:47:35 With:NICOLE DIAZ, Cristo Frances, URL Address: [facility] [address] , [place] [phone] When: Unknown Comments:has f/u scheduled 11/19/23 [facility] 11-22-2023 Evaluation note* Encounter Date Diagnosis Assessment Notes Treatment Notes Treatment Clinical Notes Mar, Hyperglycemia due to type 2 diabetes mellitus (ICD-10 - E11.65) [employer] Other 10-16-2023 Hospital Discharge instructions Patient Education [...] urethra. Follow these instructions at home: Take ijms-zfj-zttriuk and prescription medicines only as told by [...] provider. Document Revised: 11/16/2021 Document Reviewed: 11/16/2021 [employer]choices Patient Education 2022 [employer]. Follow Up Care 11/27/2022 10:22:53 With:NICOLE DIAZ, Cristo Frances, URL Address: [facility] [address] , [place] [address]- When:Within 3 Month(s) Comments:w/AFSHAN [facility] 07-17-2023 Hospital Discharge instructions Patient Education 11/27/2022 [...] urethra. Follow these instructions at home: Take iwvx-cev-zjfcbeq and prescription medicines only as told by [...] provider. Document Revised: 11/16/2021 Document Reviewed: 11/16/2021 [employer]choices Patient Education 2022 [employer]. Follow Up Care 09/25/2022 16:49:26 With:NICOLE DIAZ, Cristo Frances, URL Address: [facility] [address], [place] [phone] When: Unknown Comments:3 mos [facility] 07-13-2023 Evaluation note* Encounter Date Diagnosis Assessment Notes Treatment Notes Treatment Clinical Notes Nov, Hyperglycemia due to type 2 diabetes mellitus (ICD-10 - E11.65) [employer] Other 05-08-2023 Evaluation note* Encounter Date Diagnosis Assessment Notes Treatment Notes Treatment Clinical Notes September, Diabetic polyneuropathy associated with type 2 diabetes mellitus (ICD-10 - E11.42) [employer] Other 05-01-2023 Evaluation note* Encounter Date Diagnosis Assessment Notes Treatment Notes Treatment Clinical Notes September, Skin ulcer of toe of right foot, limited to breakdown of skin (ICD-10 - L97.511) No open area, mainly erythema. Agrees to podiatry referral for nail care and rx shoes. [employer] Other 04-13-2023 Evaluation note* Encounter Date Diagnosis Assessment Notes Treatment Notes Treatment Clinical Notes Aug, Diabetic polyneuropathy associated with type 2 diabetes mellitus (ICD-10 - E11.42) Hand wrote order for diabetic shoes. Trial of Lyrica as a new medication. We will start with low-dose and check again in 1 month consider increasing dose at that time. [employer] Other 02-28-2023 Evaluation note* Encounter Date Diagnosis Assessment Notes Treatment Notes Treatment Clinical Notes Jun, Right leg pain (ICD-10 - M79.604) Discussed US to r/o DVT and then consider more compression hose, elevation and tylenol for pain Jun, Right hip pain (ICD-10 - M25.551) no injury. will base referral if needed on Xray result. [employer] Other 01-23-2023 Hospital Discharge instructions Patient Education [...] reconstructed. Follow these instructions at home: Take jpdl-rrc-xrrkazn and prescription medicines only as told by [...] 05/26/2016 Document Revised: 12/11/2018 Document Reviewed: 12/11/2018 [employer]choices Patient Education 2020 [employer]. Follow Up Care 05/02/2022 08:31:24 With:NICOLE DIAZ, Cristo Frances, URL Address: [facility] [address] [place] [address]- When: Unknown [facility] 11-05-2022 [place] note Author Neno Moreira [facility] March 18, 2022 10:39am Note Date/Time March 18, 2022 1 0:28am [facility] [address] [place] [address] Hospitalist Progress Note Signed Patient: Marilu Dan MR#: [id number] : 1950 Acct:[id number] Age/Sex: 71 / M Adm Date: 2 Loc: Room: [address] [place] [address] Type: ADM IN Attending Dr: Neno Moreira MD Copies to: ~ Date of Service: 03/18/2022 Subjective Subjective Narrative: Patient was seen and examined at bedside. Patient remained afebrile and hemodynamically stable overnight. Reports improvement in his symptoms. denies any active complaints. Underwent angiographic evaluation yesterday patent grafts, no interventions needed. Also we got a blood culture report from [facility] that showed proteus and Enterobacter detected [...] signed by Neno Moreira MD> 03/18/22 1039 [facility] Work Phone: 1(555) 460-908511-04-2022 Consult note Author Marlon Shetty [facility] March 17, 2022 2:27pm Note Date/Time March 17, 2022 2 :21pm [facility] [address] [place] [address] Cardiology Consult Note Signed Patient: Marilu Dan MR#: [id number] : 1950 Acct:[id number] Age/Sex: 71 / M Adm Date: 2 Loc: Room: [address] [place] [address] Type: ADM IN Attending Dr: Neno Moreira MD Copies to: MD Neno Gibson MD W Scott Sheldon, DO~ Cardiology HPI History of Present Illness Consult Date: 03/17/22 Reason for Consult: Acute non-ST elevation PR HPI: Mr. Dan is a 71 year old male seen in interventional cardiology consultationat request of the hospitalist for acute non-ST elevation myocardial infarction. Patient was transferred from [place] primarily due to urosepsis. He presented to [...] noted for ASHD with four-vessel bypass in [place] around the 2014 time period. This was followed by TAVR around 2017, and patient continues to follow with primary typer Dr. Ospina. He has had no complaints [...] L 0.9 L 0.9 L (1.00-4.8) x10E3/uL [place] # (Auto) 0.9 H 1.0 H 0.9 [...] signed by Marlon Shetty DO> 03/17/22 1427 [facility] Work Phone: 1(945) 594-308511-04-2022 [place] note Author Neno Moreira [facility] March 17, 2022 2:05pm Note Date/Time March 17, 2022 2 :05pm [facility] [address] [place] [address] Hospitalist Progress Note Signed Patient: Marilu Dan MR#: [id number] : 1950 Acct:[id number] Age/Sex: 71 / M Adm Date: 2 Loc: Room: [address] [place] [address] Type: ADM IN Attending Dr: Neno Moreira [...] pending - ICU monitoring Hypotension presented on vazlbpenj-avxhgzbfq-mubmn responsive ? UA positive for UTI. ? [...] signed by Neno Moreira MD> 03/17/22 1405 [facility] Work Phone: 1(194) 103-311611-04-2022 [facility] History and physical note Author Paulina Alexander [facility] March 17, 2022 4:30am Note Date/Time March 17, 2022 4 :25am [facility] [address] [place] [address] Hospitalist H&P Signed Patient: Marilu Dan MR#: [id number] : 1950 Acct:[id number] Age/Sex: 71 / M Adm Date: 2 Loc: Room: [address] [place] [address] Type: ADM IN Attending Dr: Madeline Barry [...] and after discussing the case with our typer on-call patient was started on heparin drip [...] % (Auto) 13.2 % (.) 03/17/22 03:38 [place] % (Auto) 14.6 % (.) 03/17/22 03:38 Eos % (Auto) 0.0 % (.) 03/17/22 03:38 Baso % (Auto) 0.2 % (.) 03/17/22 03:38 Neut # (Auto) 5.1 x10E3/uL (1.8-7.7) 03/17/22 03:38 Lymph # (Auto) 0.9 x10E3/uL (1.00-4.8) L 03/17/22 03:38 [place] # (Auto) 1.0 x10E3/uL (0.0-0.8) H 03/17/22 [...] Flomax Documented By: Paulina Walker MD 2 [id number] Signed By: <Electronically signed by Paulina Walker MD> 03/17/22 0430 [facility] Work Phone: 1(145) 358-261111-01-2022 Hospital Discharge instructions Patient Education 03/14/2022 13:27:00 [...] Follow these instructions at home: Medicines Take gpqo-igr-hyodsse and prescription medicines only as told by [...] or the blood stops without treatment. Take nayx-pgv-sotcmtk and prescription medicines only as told by your health care provider. Drink enough fluid to keep your urine clear or pale yellow. This information is not intended to replace advice given to you by your health care provider. Make sure you discuss any questions you have with your health care provider. Document Released: 04/30/2006 Document Revised: 09/24/2019 Document Reviewed: 06/02/2017 [employer]ar[employer] Patient Education 2020 [employer]. Follow Up Care 02/27/2022 11:25:53 With:NICOLE DIAZ, Cristo Frances, URL Address: [facility] [address] , [place] [phone] When:Within 3 Day(s) Comments:Sunday for tinsley removal [facility] [place] 10-17-2022 Hospital Discharge instructions Patient Education 02/27/2022 [...] Follow these instructions at home: Medicines Take kinu-iqb-oghneav and prescription medicines only as told by [...] or the blood stops without treatment. Take vjnu-ryk-boykmtq and prescription medicines only as told by your health care provider. Drink enough fluid to keep your urine clear or pale yellow. This information is not intended to replace advice given to you by your health care provider. Make sure you discuss any questions you have with your health care provider. Document Released: 04/30/2006 Document Revised: 09/24/2019 Document Reviewed: 06/02/2017 [employer]choices Patient Education 2020 [employer]. Follow Up Care 02/26/2022 13:59:10 With:NICOLE DIAZ, Cristo Frances, URL Address: [facility] [address] [place] [phone] When: Unknown [facility] 04-26-2022 History of Present illness Narrative* [...] in this [facility] [employer] Work Phone: 1(586) 986-504801-27-2022 NoteClinical Information Procedure: left ear auriculectomy, Pre-operative [...] present at the tissue margins. Solar elastosis. [id number] [id number] [id number] [id number] [id number] Cody Gomes MD PhD (Electronically signed by) Verified: 06/13/21 12:25[facility] Health SystemComment on above:Performed By: #### SPR #### [facility] (DEFAULT) [address] [place], [place] [address]Kxpnaulqo summary Author Nneo Moreira [facility] March 19, 2022 1:57pm Note Date/Time March 19, 2022 1 :32pm [facility] [address] [place] [address] Discharge Summary Signed Patient: Marilu Dan MR#: [id number] : 1950 Acct:[id number] Age/Sex: 71 / M Adm Date: 2 Loc: Room: 8U4594-[address]: Neno Moreira MD Copies to: [...] and weakness for which he went to [facility] for further evaluation and management. Patient was [...] and after discussing the case with our typer on-call patient was started on heparin drip [...] treat underlying urosepsis and follow-up withhis primary typer as outpatient. Patient was started on Azactam on admission due to penicillin allergy. 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 4. ACTIVITY: You are advised to [...] bottle, follow the instructions on the bottle. [facility] is not responsible for incorrect [...] <Electronically signed by Neno Moreira MD> 03/19/22 7375 [facility] Work Phone: Evaluation + Plan note Future Appointments Appointment Date:03/14/2022 12:45:00 PM Scheduled Provider:Cristo RIVERA MD Location:[facility] Appointment Type:URO Procedure 15 min Diagnostic Tests Pending * Creatinine 02/27/22 [facility] evaluation + Plan note Future Appointments Appointment Date:03/17/2022 08:30:00 AM Scheduled Provider: Location:[facility] Appointment Type:URO Nurse Visit [facility] evaluation + Plan note Future Appointments Appointment Date:07/18/2022 01:00:00 PM Scheduled Provider:Cristo RIVERA MD Location:[facility] Appointment Type:URO Procedure 15 min [facility] evaluation + Plan note Future Appointments Appointment Date:02/26/2023 09:30:00 AM Scheduled Provider:Cristo RIVERA MD Location:[facility] Appointment Type:URO Office Visit [facility] evaluation + Plan note Future Appointments Appointment Date:05/28/2023 08:45:00 AM Scheduled Provider:Cristo RIVERA MD Location:[facility] Appointment Type:URO Office Visit [facility] evaluation + Plan note Future Appointments Appointment Date:11/19/2023 08:45:00 AM Scheduled Provider:Cristo RIVERA MD Location:[facility] Appointment Type:URO Office Visit [facility] evaluation + Plan note Future Appointments Appointment Date:12/21/2023 09:15:00 AM Scheduled Provider:Cristo RIVERA MD Location:[facility] Appointment Type:URO Office Visit [facility] evaluation + Plan note Future Appointments Appointment Date:02/15/2024 08:45:00 AM Scheduled Provider:[facility] Office Visit [facility] evaluation + Plan note Future Appointments Appointment Date:06/13/2024 08:00:00 AM Scheduled Provider:Cristo RIVERA MD Location:[facility] Appointment Type:URO Office Visit [facility] evaluation + Plan note Future Appointments Appointment Date:06/13/2024 08:00:00 AM Scheduled Provider:[facility]risto [facility]IVERA [facility] Type:[facility]O Office Visit Diagnostic Tests Pending * Urine Culture 02/15/24 [facility] Evaluation + Plan note Future Appointments Appointment Date:06/13/2024 08:00:00 AM Scheduled Provider:Cristo RIVERA MD Location:[facility] Appointment Type:URO Office Visit Diagnostic Tests Pending * Urine Culture 03/25/24 [facility] evaluation + Plan note Future Appointments Appointment Date:09/29/2024 09:30:00 AM Scheduled Provider:Cristo RIVERA MD Location:[facility] Appointment Type:URO Office Visit [facility] evaluation note* Diagnosis Combined forms of age-related cataract of left eye- Primary Other and combined forms of senile cataract documented in this encounter [facility] Work Phone: evaluation note* Diagnosis Onset Date Resolution Status Acute UTI acute Tinsley catheter in place prior to arrival acute Gram-negative bacteremia acu te History of heart bypass surgery acute History of heart surgery acu te Hypotension acute NSTEMI (non-ST elevated myocardial infarction) acute Sepsis acute [facility] Work Phone: Evaluation noteNo assessment information available [facility] Work Phone: evaluation noteNo InformationNort Truly Accomplished Other evaluation note* Diagnosis Onset Date Resolution Status Coronary artery disease acut e Diabetes mellitus, type 2 ac rasheeda Hypotension acute Sepsis acute Candidiasis acute Decubitus ulcer of left buttock acute Diabetes mellitus, type 2 ac rasheeda Inflammation acute Use of cane as ambulatory aid acute Wound pain acute [facility] Work Phone: Evaluation note* Diagnosis Onset Date Resolution Status Admit Date Fever acute June 25, 2024 9:35am Influenza A acute June 9:35am [facility] Work Phone: History general Narrative - [...] History Heart attack , pneumonia sepsis 02/2022 [employer] Other Hospital course Narrative No data available for this section [facility] Hospital Discharge instructions* Instructions* Roberta Vazquez, DO [...] the healing period. The office number is [phone]. Take surgery bag and all eye drops to Dr. Vazquez's office tomorrow at 9:50am. You may resume your normal diet. Start your eye drops tomorrow after your post-op appointment: Ofloxacin/Polytrim one drop to the operated eye 4 times daily Prednisolone one drop to the operated eye 4 times daily [facility] Hospital Discharge instructions Additional Instructions -Take levofloxacin as prescribed daily for 7 more days. Hold Aricept while taking this antibiotics. 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 4. ACTIVITY: You are advised to [...] bottle, follow the instructions on the bottle. [facility] is not responsible for incorrect prescription information provided by the patient during their visit. Do not stop your medications without consulting your health care provider. Please take the list with you to your next doctor's appointment.[facility] Work Phone: Hospital Discharge instructions No data available for this section [facility] Progress note No data available for this section [facility] progress note Author Narcisa Mckee [facility] December 04, 2023 7:48am Note Date/Time December 04, 2023 7:48 am [facility] [address] [place], [place] [id number] Wound Center Provider Note Signed Patient: Marilu Dan MR#: [id number] : 1950 Acct:[id number] Age/Sex: 73 / M Copies to: MD Narcisa Gibson, REHAB THERAPIST~ HPI Date of Visit Date of Visit: Date of Service: 12/04/2023 Time of Service: 07:46 Narrative HPI: 10/30/23 Marilu is a 73 year old male presenting to [facility] wound care for an initial visit for eval and treatment of scrotal/sacral/buttock area ulcers and fungal rash. He was referred by urology. His and daughter are present today. He has hhc through [facility] and this should continue. 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 Assistive Device Used Today: Cane Lives with:: Spouse Appetite Description: Within Normal Limits Who helps w/ dressing change?: Family and Home Health Why Do You Need Help?: Can't Reach Ulcer, Unsafe leave home by self and Taxing effort to leave home Smoking Status: Former smoker [facility] Medical History Vein disorder Decubitus ulcer [...] Diabetes mellitus, type 2: Qualifiers: Diabetes mellitus terminal superintendent insulin use: without detention use Diabetes mellitus complication status: with circulatory [...] signed by JOSE ENRIQUE Mckee> 12/04/23 0748 [facility] Work Phone: Reason for visit Narrative* Auth/Cert Specialty Diagnoses / Procedures Referred By Contac t Referred To Contact Diagnoses Combined forms of age-related cataract COMBINED FORMS OF AGE RELATED CATARACT 2+NS, 2+PSC, 2+CS Procedures IA XCAPSL CTRC RMVL INSJ IO LENS PROSTH W/O ECP EYE CATARACT EMULSIFICATION IOL IMPLANT Roberta Vazquez Y, DO [address] [place] [address] [address] [place] [address] Referral ID Status Reason Start Date Expiration Date Visits Re quested Visits Authorized [employer] Phone: Summary Purpose Family History No Family History Records Found Relationship Condition Age at Onset Recorded Date/T jonelle father Heart disease Unknown Not Specified Diabetes mellitus Unknown Heart disease Unknown Relationship Condition Age at Onset Recorded Date/T jonelle father Heart disease Unknown mother Diabetes mellitus Unknown Heart disease Unknown Advance Directives No Advanced Directives Records FoundDocuments on File Type Date Recorded Patient Train Director Expl anation ACP-Advance Directive ACP-Power of License Distributor Documents on File Type Date Recorded Patient Train Director Expl anation Advance Directives and Living Will Power of License Distributor Documents on File Type Date Recorded Patient Train Director Expl anation ACP-Advance Directive ACP-Power of License Distributor Latest Code Status on File Code Status [...] 22 1:48pm Hospital Course Note MR#: [id number] [facility] Pt. Name: Marilu Dan Admitted: [...] symptoms of angina, shortness of breath with [id number] exertion. He is currently NYHA class 3. The patient was evaluated by our multi-discipli (more content not included)... Note MR#: [id number] I [facility] Pt. Name: Marilu Dan Admitted: 02/12/2020 [...] man who presented as a transfer from [facility] after injuring his leg during [...] m25.551 Chief Complaint Amb Documentation Hosp f/u ([facility])//needs wounds checked Chief Complaint Amb Documentation Hosp f/u ([facility])//needs wounds checked Open Wound - cart room wellness Reason for Visit Coronary artery dise ase Diabetes mellitus, type 2 Hypotension Sepsis Candidiasis Decubitus ulcer of left buttock Diabetes mellitus, type 2 Inflammation Use of cane as ambulatory aid Wound pain Chief Complaint Amb Documentation Hosp f/u ([facility])//needs wounds checked wellness Open Wound - cart room Reason for Visit Coronary artery dise ase Diabetes mellitus, type 2 Hypotension Sepsis Candidiasis Decubitus ulcer of left buttock Diabetes mellitus, type 2 Inflammation Use of cane as ambulatory aid Wound pain Chief Complaint Admit Date Coughing/Possible Pneumonia June 9:35am Reason for Visit Admit Date Fever June 25, 2024 9:35am Influenza A June 25, 2024 9:35am Reason for Referral Reason [place] office - ne eds diabetic foot exam, shoes and nail care. Diagnosis 1 Skin ulcer of toe of right foot, limited to breakdown of skin (L97.511) Referral Organization [facility] Shannon evans Referring Provider First Name Mary Beth Referring Provider Last Name Hong Referring Provider Specialty Family [facility] Referred Organization [facility] Referred Provider KMAILA WILSON Referred Address ,[place], [place],[address] Referred Provider Specialty Podiatry - S urgical [...] section and content) DATE CREATED AUTHOR 07/02/2020 [facility] DATE CREATED AUTHOR AUTHOR'S ORGANIZ ATION 12/17/2021 [facility] DATE CREATED AUTHOR AUTHOR'S ORGANIZ ATION 03/24/2022 [facility] DATE CREATED AUTHOR AUTHOR'S ORGANIZ ATION 05/05/2022 [facility] DATE CREATED AUTHOR AUTHOR'S ORGANIZ ATION 05/05/2022 [facility] DATE CREATED AUTHOR AUTHOR'S ORGANIZ ATION 07/14/2023 [facility] DATE CREATED AUTHOR AUTHOR'S ORGANIZ ATION 12/06/2023 [facility] DATE CREATED AUTHOR AUTHOR'S ORGANIZ ATION 02/18/2024 [facility] DATE CREATED AUTHOR AUTHOR'S ORGANIZ ATION 03/26/2024 [facility] DATE CREATED AUTHOR AUTHOR'S ORGANIZ ATION 03/29/2024 [facility] DATE CREATED AUTHOR AUTHOR'S ORGANIZ ATION 06/10/2024 [facility] DATE CREATED AUTHOR AUTHOR'S ORGANIZ ATION 06/23/2024 [facility] DATE CREATED AUTHOR AUTHOR'S ORGANIZ ATION 07/05/2024 [facility] Scheduled Active and Recently Administ ered Medications (unrecognized section and content) Medication Order 09/17/2021 09/18/2021 09/19/2021 phenylephrine (MYDFRIN) 2.5 % ophthalmic solution 1 drop 1 drop, Left Eye, SEE ADMIN INSTRUCTIONS, Starting on 09/19/21 at 1142, Until Discontinued, To operative eye(s) [...] (NoRateChange - Provider: Bishop Perez APRN - TOOL DESIGNER APPRENTICE) lactated ringers infusion IntraVENous, at 100 mL/hr, [...] October 18, 2023 End: October 18, 2023 [employer] P[employer] Relationship Specialty Start Date End Date Mary Beth Pitts MD PCP - General 03/03/16 [employer] Relationship Specialty Start Date End Date Mary [...] MD Other Provider Active Linh Quintanilla , [facility] Other Provider Active Debi Goins MD Other [...] December 04, 2023 End: December 04, 2023 Team Status: Active Member Role Status Dates Qing Malik APRN [employer] Primary Care Provider Active Team Status: Inactive Member Role Status Dates Qing Malik APRN [employer] Primary Care Provider, Attending Provider Active Start: June 25, 2024 End: June 25, 2024 Goals (unrecognized section and content) Goals may [...] BE BASED ON THE PRIMARY CLINICAL RECORDS. [employer] [facility]. provides no warranty or guarantee of the accuracy or completeness of information in this document.
--- NOTE | 2024-07-05 21:05 | ECG_ITS ---
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
[2024-07-05 21:12] LABS: Glucometer 246 mg/dL (74-106)
--- NOTE | 2024-07-05 21:18 | ED_ITS ---
HPI - Altered Mental Status General Chief Complaint: Altered Mental Status Stated Complaint: CONFUSION STARTED AFTERNOON Time Seen by Provider: 07/05/24 20:55 Source: patient Mode of arrival: walk-in Limitations: no limitations History of Present Illness HPI narrative: 74-year-old male to the emergency department chief complaint of altered patient's daughter and are the primary historians. They report the patient had confused speech that started around 4 PM today. He has been sick for the last 3 weeks. He was diagnosed with influenza the first week of the month. Daughter reports that he has not been doing well since that time. He has had intermittent diarrhea, decreased appetite, intermittent confusion. The confusion today was more severe than typical. He also gets recurrent urinary tract infections. He has not had any fever, sweats, chills. He denies any chest pain or shortness of breath. No falls or injuries. Related Data Home Medications ?Medication ?Instructions ?Recorded ?Confirmed amlodipine 10 mg tablet 10 mg PO DAILY 10/04/23 10/04/23 dutasteride 0.5 mg capsule 0.5 mg PO DAILY 10/04/23 10/04/23 isosorbide mononitrate 60 mg 60 mg PO DAILY 10/04/23 10/04/23 tablet,extended release 24 hr lisinopril 20 mg tablet 20 mg PO DAILY 10/04/23 10/04/23 metformin 500 mg tablet,extended 1,000 mg PO BID 10/04/23 10/04/23 release 24 hr metoprolol tartrate 50 mg tablet 50 mg PO Q12H 10/04/23 10/04/23 rivaroxaban 20 mg tablet (Xarelto) 20 mg PO Q24H 10/04/23 10/04/23 simvastatin 40 mg tablet 40 mg PO DAILY 10/04/23 10/04/23 sitagliptin phosphate 100 mg 100 mg PO BID 10/04/23 10/04/23 tablet (Januvia) spironolactone 25 mg tablet 12.5 mg PO DAILY 10/04/23 10/04/23 tamsulosin 0.4 mg capsule 0.4 mg PO Q24H 10/04/23 10/04/23 Allergies Allergy/AdvReac Type Severity Reaction Status Date / Time Penicillins AdvReac Severe Swelling Verified 10/04/23 17:20 of Lip/Tongue/Throat sulfamethoxazole (From AdvReac Severe Swelling Verified 10/04/23 17:20 Bactrim) of Lip/Tongue/Throat trimethoprim (From Bactrim) AdvReac Severe Swelling Verified 10/04/23 17:20 of Lip/Tongue/Throat doxycycline AdvReac Mild Blister Verified 10/04/23 17:20 Review of Systems ROS Status of ROS 10 or more systems reviewed and unremark able except as noted in history and below [facility] Medical History (Updated 07/06/24 @ 01:10 by Tomasz Aparicio MD) Pyelonephritis ?N12 - Tubulo-interstitial nephritis, not specified as acute or chronic (ICD- 10) Severe sepsis with septic shock ?A41.9 - Sepsis, unspecified organism (ICD-10) ?R65.21 - Severe sepsis with septic shock (ICD-10) Leukocytosis ?D72.829 - Elevated white blood cell count, unspecified (ICD-10) Fever ?R50.9 - Fever, unspecified (ICD-10) Leg fracture, left ?S82.92XA - Unspecified fracture of left lower leg, initial encounter for closed fracture (ICD-10) COPD (chronic obstructive pulmonary disease) ?J44.9 - Chronic obstructive pulmonary disease, unspecified (ICD-10) Diabetes ?E11.9 - Type 2 diabetes mellitus without complications (ICD-10) Sepsis ?A41.9 - Sepsis, unspecified organism (ICD-10) Surgical History History of atherectomy ?Z98.890 - Other specified postprocedural states (ICD-10) History of open heart surgery ?Z98.890 - Other specified postprocedural states (ICD-10) Heart valve replaced by other means ?Z95.4 - Presence of other heart-valve replacement (ICD-10) Social History Little interest or pleasure in doing things: not at all Feeling down, depressed, or hopeless: not at all Exam Narrative Exam Narrative: VITALS: I have reviewed the triage vital signs. GENERAL: Elderly male in no distress NEURO: Alert and oriented x2. Moves all extremities. Face is symmetric and expressive. EYES: PERRL. No scleral icterus or conjunctival injection. No discharge. HENT: Normocephalic, atraumatic. Hearing is grossly intact. Nares grossly patent and without discharge. Mucous membranes moist. NECK: No JVD. Patient moves neck without restriction. CARDIO: Rhythm regular. Normal rate. No murmur, rub, or gallop. Pulses equal bilaterally in the upper and lower extremity. No lower extremity edema. PULM: Lungs clear to auscultation in all terry. No wheezes, rales, or rhonchi. No conversational dyspnea. No splinting, stridor, or accessory muscle use. GI/: Abdomen is soft and non-tender. Normoactive bowel sounds. EXTREMITIES: Symmetric muscle bulk. No joint swelling. No clubbing, cyanosis, or deformity. SKIN: Warm and dry. Normal turgor. No rash or lesions appreciated. PSYCH: Mood, affect, and interaction is appropriate to the setting. Constitutional Vital Signs, click to edit/add: Last Vital Signs Pulse 80 07/05/24 23:00 Resp 26 H 07/05/24 23:00 BP 123/71 07/05/24 23:00 Pulse Ox 93 L 07/05/24 23:00 O2 Del Method Room Air 07/05/24 20:58 Course Vital Signs Vital signs: Vital Signs Pulse Rate 88 07/05/24 20:58 Respiratory Rate 22 H 07/05/24 20:58 Blood Pressure 166/84 H 07/05/24 20:58 Pulse Oximetry 92 L 07/05/24 20:58 Oxygen Delivery Method Room Air 07/05/24 20:58 Pulse Rate 80 07/05/24 23:00 Respiratory Rate 26 H 07/05/24 23:00 Blood Pressure 123/71 07/05/24 23:00 Pulse Oximetry 93 L 07/05/24 23:00 Oxygen Delivery Method Room Air 07/05/24 20:58 MDM - Altered Mental Status MDM Narrative Medical decision making narrative: 74-year-old male to the emergency department with chief complaint of confusion. Vital stable, the patient is afebrile. He has situational confusion. No focal neurologic deficits are appreciated. Differential favors encephalopathy over stroke. Will obtain CT of his head, chest x-ray, ABG, septic workup. Urinalysis. Patient and family agree with this plan. Lab work reviewed and noted. Urinalysis without evidence of infection. Chest x-ray without acute findings tonight. CT scan without acute findings. Fluids ordered. Patient was admitted to the hospitalist for further treatment of dehydration, metabolic encephalopathy. Medical Records Attestation: I reviewed the patient's medical records. Lab Data Attestation: I reviewed the patient's lab results. Labs: Lab Results 07/05/24 07/05/24 07/05/24 Range/Units 21:09 21:20 21:35 WBC 10.5 (4.0-11.0) 10^3/uL RBC 4.16 L (4.70-6.10) 10^6/uL Hgb 11.9 L (14.0-18.0) g/dL Hct 35.8 L (42.0-54.0) % MCV 86.1 (80.0-94.0) fL MCH 28.6 (25.9-34.0) pg MCHC 33.2 (29.9-35.2) g/dL RDW 12.8 (11.0-15.0) % Plt Count 292 (150-450) 10^3/uL MPV 8.8 L (9.5-13.5) fL Neut % (Auto) 70.3 (43.0-75.0) % Lymph % (Auto) 20.0 L (20.5-60.0) % [place] % (Auto) 8.7 (1.7-12.0) % Eos % (Auto) 0.4 L (0.9-7.0) % Baso % (Auto) 0.1 L (0.2-2.0) % Neut # (Auto) 7.4 H (1.4-6.5) 10^3/uL Lymph # (Auto) 2.1 (1.2-3.8) 10^3/uL [place] # (Auto) 0.9 H (0.3-0.8) 10^3/uL Eos # (Auto) 0.0 (0.0-0.7) 10^3/uL Baso # (Auto) 0.0 (0.0-0.1) 10^3/uL Abs Immat Gran (auto) 0.05 H (0.00-0.03) 10^3/uL Imm/Tot Granulo (auto) 0.5 (0.0-0.5) % PT 15.4 H (9.0-11.6) sec INR 1.51 Puncture Site R radial ABG pH 7.410 (7.350-7.450) ABG pCO2 38.5 (35.0-45.0) mmHg ABG pO2 62.6 L (80.0-100.0) mmHg ABG HCO3 24.4 (22.0-26.0) mmol/L ABG O2 Saturation 92.4 % ABG Base Excess -0.3 (-2.0-2.0) mmol/L Lonnie Test Pos (POSITIVE) Sodium 131 L (136-145) mmol/L Potassium 4.1 (3.5-5.1) mmol/L Chloride 98 (98-107) mmol/L Carbon Dioxide 25.6 (21.0-32.0) mmol/L Anion Gap 11.5 BUN 18.0 (7.0-18.0) mg/dL Creatinine 1.02 (0.70-1.30) mg/dL Est GFR ( Amer) >60 (>=60 mL/min/1.73m^2) Est GFR (Non-Af Amer) >60 (>=60 mL/min/1.73m^2) BUN/Creatinine Ratio 17.6 Glucose 248 H (74-106) mg/dL Lactate 2.4 H* (0.4-2.0) mmol/L Calcium 8.5 (8.5-10.1) mg/dL Troponin I High Sens 9.5 (4.0-76.1) pg/mL Urine Color (YELLOW) Urine Clarity (CLEAR) Urine pH (5.0-9.0) Ur Specific [place] (1.005-1.025) Urine Protein (NEG/TRACE) mg/dL Urine Glucose (UA) (NEGATIVE) mg/dL Urine Ketones (NEGATIVE) mg/dL Urine Occult Blood (NEGATIVE) Urine Nitrite (NEGATIVE) Urine Bilirubin (NEGATIVE) Urine Urobilinogen (0.2-1.0) EU/dL Ur Leukocyte Esterase (NEGATIVE) Urine RBC (0-2) #/HPF Urine WBC (NONE SEEN) #/HPF Ur Squamous Epith Cells (NONE/RARE) #/LPF Urine Crystals (None Seen) #/HPF Urine Bacteria (NONE SEEN) #/HPF Urine Casts (NONE SEEN) #/LPF Hyaline Casts Urine Mucus (NONE SEEN) Ur Culture Indicated? Ethanol Quant <3 mg/dL POC Glucose 246 H (74-106) mg/dL 07/05/24 Range/Units 21:55 WBC (4.0-11.0) 10^3/uL RBC (4.70-6.10) 10^6/uL Hgb (14.0-18.0) g/dL Hct (42.0-54.0) % MCV (80.0-94.0) fL MCH (25.9-34.0) pg MCHC (29.9-35.2) g/dL RDW (11.0-15.0) % Plt Count (150-450) 10^3/uL MPV (9.5-13.5) fL Neut % (Auto) (43.0-75.0) % Lymph % (Auto) (20.5-60.0) % [place] % (Auto) (1.7-12.0) % Eos % (Auto) (0.9-7.0) % Baso % (Auto) (0.2-2.0) % Neut # (Auto) (1.4-6.5) 10^3/uL Lymph # (Auto) (1.2-3.8) 10^3/uL [place] # (Auto) (0.3-0.8) 10^3/uL Eos # (Auto) (0.0-0.7) 10^3/uL Baso # (Auto) (0.0-0.1) 10^3/uL Abs Immat Gran (auto) (0.00-0.03) 10^3/uL Imm/Tot Granulo (auto) (0.0-0.5) % PT (9.0-11.6) sec INR Puncture Site ABG pH (7.350-7.450) ABG pCO2 (35.0-45.0) mmHg ABG pO2 (80.0-100.0) mmHg ABG HCO3 (22.0-26.0) mmol/L ABG O2 Saturation % ABG Base Excess (-2.0-2.0) mmol/L Lonnie Test (POSITIVE) Sodium (136-145) mmol/L Potassium (3.5-5.1) mmol/L Chloride (98-107) mmol/L Carbon Dioxide (21.0-32.0) mmol/L Anion Gap BUN (7.0-18.0) mg/dL Creatinine (0.70-1.30) mg/dL Est GFR ( Amer) (>=60 mL/min/1.73m^2) Est GFR (Non-Af Amer) (>=60 mL/min/1.73m^2) BUN/Creatinine Ratio Glucose (74-106) mg/dL Lactate (0.4-2.0) mmol/L Calcium (8.5-10.1) mg/dL Troponin I High Sens (4.0-76.1) pg/mL Urine Color Yellow (YELLOW) Urine Clarity Clear (CLEAR) Urine pH 5.0 (5.0-9.0) Ur Specific [place] >=1.030 A (1.005-1.025) Urine Protein Trace (NEG/TRACE) mg/dL Urine Glucose (UA) 100 A (NEGATIVE) mg/dL Urine Ketones Trace A (NEGATIVE) mg/dL Urine Occult Blood Moderate A (NEGATIVE) Urine Nitrite Negative (NEGATIVE) Urine Bilirubin Negative (NEGATIVE) Urine Urobilinogen 0.2 (0.2-1.0) EU/dL Ur Leukocyte Esterase Negative (NEGATIVE) Urine RBC 20-50 A (0-2) #/HPF Urine WBC None seen (NONE SEEN) #/HPF Ur Squamous Epith Cells Moderate A (NONE/RARE) #/LPF Urine Crystals None seen (None Seen) #/HPF Urine Bacteria None seen (NONE SEEN) #/HPF Urine Casts Seen A (NONE SEEN) #/LPF Hyaline Casts Few Urine Mucus Moderate A (NONE SEEN) Ur Culture Indicated? No Ethanol Quant mg/dL POC Glucose (74-106) mg/dL Imaging Data CT scan - head: Attestation: I have reviewed the pertinent imaging results. Radiologist's impression: Documented in PACS ECG Data Attestation: I personally reviewed and interpreted this ECG as follows: (Normal sinus rhythm at a rate 84. No STEMI. Normal QTc at 419. ) Discharge Plan Discharge Chief Complaint: Altered Mental Status Clinical Impression: Acute metabolic encephalopathy, Acute dehydration, Influenza A Patient Disposition: Admitted as Observation Time of Disposition Decision: 01:09 Condition: Good Mode of Transportation: Private Vehicle Prescriptions / Home Meds: No Action amlodipine 10 mg tablet 10 mg PO DAILY dutasteride 0.5 mg capsule 0.5 mg PO DAILY isosorbide mononitrate 60 mg tablet extended release 24 hr 60 mg PO DAILY lisinopril 20 mg tablet 20 mg PO DAILY metformin 500 mg tablet extended release 24 hr 1,000 mg PO BID metoprolol tartrate 50 mg tablet 50 mg PO Q12H Xarelto 20 mg tablet 20 mg PO Q24H simvastatin 40 mg tablet 40 mg PO DAILY spironolactone 25 mg tablet 12.5 mg PO DAILY tamsulosin 0.4 mg capsule 0.4 mg PO Q24H Januvia 100 mg tablet 100 mg PO BID Print Language: Sami Referrals: Susana Jackson MD [Primary Care Provider] - 1 week
[2024-07-05 21:30] LABS: Basophils Percent Auto 0.1 % (0.2-2.0); Eosinophils Percent Auto 0.4 % (0.9-7.0); Hematocrit 35.8 % (42.0-54.0); Hemoglobin 11.9 g/dL (14.0-18.0); Immature Granulocytes Abs Auto 0.05 10^3/uL (0.00-0.03); Immature Granulocytes Pct Auto 0.5 % (0.0-0.5); Lymphocytes Absolute Auto 2.1 10^3/uL (1.2-3.8); Mean Corpuscular HGB Conc 33.2 g/dL (29.9-35.2); Mean Corpuscular Hemoglobin 28.6 pg (25.9-34.0); Mean Corpuscular Volume 86.1 fL (80.0-94.0); Mean Platelet Volume 8.8 fL (9.5-13.5); Monocytes Absolute Auto 0.9 10^3/uL (0.3-0.8); Monocytes Percent Auto 8.7 % (1.7-12.0); Neutrophils Absolute Auto 7.4 10^3/uL (1.4-6.5); Neutrophils Percent Auto 70.3 % (43.0-75.0); Platelet Count 292 10^3/uL (150-450); Red Blood Count 4.16 10^6/uL (4.70-6.10); Red Cell Distribution Width 12.8 % (11.0-15.0); White Blood Count 10.5 10^3/uL (4.0-11.0)
[2024-07-05 21:41] LABS: Anion Gap 11.5; BUN Creatinine Ratio 17.6; Calcium 8.5 mg/dL (8.5-10.1); Carbon Dioxide 25.6 mmol/L (21.0-32.0); Chloride 98 mmol/L (98-107); Estimated GFR (African America >60 (>=60 mL/min/1.73m^2); Estimated GFR (Non-African Ame >60 (>=60 mL/min/1.73m^2); Glucose 248 mg/dL (74-106); Potassium 4.1 mmol/L (3.5-5.1); Sodium 131 mmol/L (136-145)
[2024-07-05 21:45] LABS: INR 1.51; Prothrombin Time 15.4 sec (9.0-11.6)
[2024-07-05 21:45] LABS: ABG PCO2 38.5 mmHg (35.0-45.0)
[2024-07-05 21:46] LABS: Allen Test POS (POSITIVE); Base Excess ABG -0.3 mmol/L (-2.0-2.0); HCO3 ABG 24.4 mmol/L (22.0-26.0); O2 Mode ROOM AIR; Oxygen Saturation ABG 92.4 %; PO2 ABG 62.6 mmHg (80.0-100.0); Puncture Site R RADIAL
[2024-07-05 21:49] LABS: Troponin I High Sensitivity 9.5 pg/mL (4.0-76.1)
[2024-07-05 21:55] LABS: Lactate/Lactic Acid 2.4 mmol/L (0.4-2.0)
[2024-07-05 22:07] LABS: Ethanol <3 mg/dL
[2024-07-05] MEDS: 0.9 % SODIUM CHLORIDE 1,000 ML 125 ML IV (22:10)
[2024-07-05 22:12] LABS: Bilirubin Urine NEGATIVE (NEGATIVE); Blood Urine MODERATE (NEGATIVE); Clarity Urine CLEAR (CLEAR); Color Urine YELLOW (YELLOW); Glucose Urine UA 100 mg/dL (NEGATIVE); Ketones Urine TRACE mg/dL (NEGATIVE); Leukocyte Esterase Urine NEGATIVE (NEGATIVE); Nitrite Urine NEGATIVE (NEGATIVE); Protein Urine TRACE mg/dL (NEG/TRACE); Specific Gravity Urine >=1.030 (1.005-1.025); Urobilinogen Urine 0.2 EU/dL (0.2-1.0)
[2024-07-05 22:18] LABS: Urine Microscopic Indicated YES
[2024-07-05 22:26] LABS: Bacteria Urine NONE SEEN #/HPF (NONE SEEN); Mucus Urine MODERATE (NONE SEEN); RBC Urine 20-50 #/HPF (0-2); Squamous Epithelial Cell Urine MODERATE #/LPF (NONE/RARE); WBC Urine NONE SEEN #/HPF (NONE SEEN)
[2024-07-05 22:27] LABS: Cast Seen? SEEN #/LPF (NONE SEEN); Crystals Seen? None Seen #/HPF (None Seen); Hyaline Casts Urine FEW; Urine Culture Indicated NO
[2024-07-06] VITALS (21 sets, daily range): BP systolic 97–162; BP diastolic 54–81; PULSE 68–88; TEMP 36.5–36.7; O2SAT 84–96; BMI 27.9
[2024-07-06 01:33] LABS: Lactate/Lactic Acid 2.6 mmol/L (0.4-2.0)
[2024-07-06] MEDS: RIVAROXABAN 10 MG TABLET 20 MG PO ×2 (02:49→17:04)
[2024-07-06] MEDS: ACETAMINOPHEN 325 MG TABLET 650 MG PO ×2 (02:49→09:32)
--- NOTE | 2024-07-06 04:15 | PC.NURSE ---
I am unable to complete Patient's home med list d/t Patient is a poor historian an there is no Family available at this time.
[2024-07-06] MEDS: 0.9 % SODIUM CHLORIDE 1,000 ML 100 ML IV (06:08)
--- OUTSIDE RECORDS SUMMARY | 2024-07-06 06:33 | XMS_ITS | CCD ---
Author Organization [facility] Care Team Providers Care Balloon Design Printer Name Role Phone ANA AYALA Admitting Unavailable SELF, REFERRED Referring Unavailable EBHEIMBRADLYIL Surgeon Unavailable NM Procedure Practitioner Unavailab le PITTS, MARY BETH Primary Care Unavailable MICHAEL BIGGS Attending Unavailable SWETHA WINTER Attending Unavailable SWETHA WINTER Admitting Unavailable HONG, MARY BETH Primary Care Unavailable HONG, MARY BETH Referring Unavailable HONG, MARY BETH Primary Care Unavailable HONG, MARY BETH Referring Unavailable KENDAL TORRES Attending Unavailable KENDAL TORRES Admitting Unavailable MASROOR, SANTANA Surgeon Unavailable MASROOR, SANTANA Admitting Unavailable NM Procedure Practitioner Unavailab le PITTS, MARY BETH Referring Unavailable REYNALDO COX Attending Unavailable HONG, MARY BETH Primary Care Unavailable REYNALDO COX Surgeon Unavailable NM Procedure Practitioner Unavailab le UNKNOWN, PROVIDER Surgeon Unavailable NM Procedure Practitioner Unavailab le Pitts , Mary Beth Primary Care Provider [phone] Hong DIAZ, Mary Beth Primary Care Provider [phone] Mary Beth Pitts MD Primary Care Provider [phone] Hong DIAZ, Mary Beth Primary Care Provider [phone] MARY BETH PITTS Primary Care Unavailable MARY [...] Provider MD Eduardo Nguyen Other Provider Socorro [facility] Linh Liriano Other Provider MD Debi Goins Other Provider [phone] MD Cristo Rivera Other Provider [phone] MD Kendal Moy Other Provider MD Trino [...] NICOLE, DR LEMONS Attending Unavailable NICOLE, DR LEMOSN Consulting Unavailable NICOLE, DR LEMONS Admitting Unavailable ZACH, DR OLIVIA Frances Consulting Unavailable MD Mary Beth Pitts [facility] Skinny Villagomez MD, Gerald Pérez Attending Unavailable MD Mary Beth Pitts [facility] Unava gilbert Villagomez MD, Gerald Pérez Attending Unavailable MD Mary Beth Pitts Consulting Jocelynva MD Mary Beth Hess [facility] Unava ilcandace Villagomez MD, Gerald Chi Attending Unavailable Hernando DIAZ, Gerald Beto Attending Unavailable MD Mary Beth Pitts [facility] MD Mary Beth Hussein Consulting Skinny Villagomez MD, Gerald Pérez Attending Unavailable MD Mary Beth Pitts [facility] Jocelynva MD Mary Beth Hess Consulting MD Mary Beth Hussein [facility] Unava gilbert Villagomez MD, Gerald Pérez Attending Unavailable Hernando DIAZ, Gerald Pérez Attending Unavailable MD Mary Beth Pitts Primary Care Provider MD Mary Beth Pitts Attending Provider MD Blas Ospina V Other Provider [phone] Mary Beth Pitts Unavailable Mahendra Escalante Unavailable [...] Referring Unavailable ASSALY, RAGHEB Referring Unavailable LAURI, AMIAR Referring Unavailable MOUKARBEL, BLAS Attending Unavailable CHERISE, [...] (1 source) Trimethoprim Drug Allergy 10-18-19 24 [facility] Doxycycline (1 source) Doxycycline; Translations: [doxycycline] Drug Allergy Blisters beneath skin (disorder) [facility] Comment on above: Blisters on hands Penicillins (antibiotic) (3 sources) Penicillins; Translations: [penicillin] Drug Allergy 10-30-19 15 Shortness Of Breath, Swelling, Anaphylaxis (disorder), Tightness in throat (finding) [facility] Sulfonamides (antibiotic) (3 sources) Sulfamethoxazole; Translations: [sulfa drugs] Drug Allergy 10-18-19 24 Vomitus (substance) [facility] (9 sources) Erythromycin; Translations: [ERYTHROMYCIN BASE] Drug Allergy 11-12-19 14 Vomiting [facility] (10 sources) Penicillins; Translations: [PENICILLINS] Drug allergy (disorder) 12-03-19 14 Shortness Of Breath, Swelling [facility] Comment on above: Onset Date: 03/03/20 15 (1 source) Sulfamethoxazole / Trimethoprim Drug Allergy 09-14-19 15 [facility] (1 source) Penicillins Propensity to adverse reactions to drug 10-30-19 15 Shortness Of Breath [facility] (13 sources) Erythromycin; Translations: [ERYTHROMYCIN] Drug Allergy 09-07-[address] [facility] (20 sources) Penicillin; Translations: [penicillin] Drug Allergy Tightness in throat (finding), hives, Anaphylaxis (disorder) [facility] (19 sources) Sulfonamides (Antibiotic); Translations: [sulfa drugs] Drug allergy Vomitus (substance) [facility] (5 sources) Sulfonamides (Antibiotic) Allergy to substance 03-17-20 Unknown Reaction [facility] (1 source) Sulfonamides (Antibiotic) Drug allergy (disorder) 11-19-19 14 [facility] (1 source) MOST ANTIBIOTICS; Translations: [MOST ANTIBIOTICS] Propensity to adverse reactions to drug (disorder) [facility] (8 sources) Sulfamethoxazole / Trimethoprim Drug Allergy Unknown [facility] Other (2 sources) Substance with penicillin structure and antibacterial mechanism of action (substance) Drug allergy 03-03-20 15 Unknown [facility] Other (6 sources) ANTIBIOTICS Propensity to adverse reactions 03-03-20 15 Unknown, [facility] Comment on above: Onset Date: 03/03/20 15 (2 sources) Allergies Reconciled Propensity to adverse reactions Unknown [facility] Other (2 sources) patient allergy list reviewed by nurse or physicia Propensity to adverse reactions 03-03-20 15 Comment:Done [facility] Other (13 sources) Doxycycline; Translations: [doxycycline] Drug Allergy 09-03-19 24 Blisters beneath skin (disorder) [facility] Comment on above: Blisters on hands (3 sources) Sulfamethoxazole Drug Allergy 11-26-19 24 [facility] (3 sources) Trimethoprim Drug Allergy 11-26-19 24 [facility] (1 source) levoFLOXacin; Translations: [LEVOFLOXACIN] Drug Allergy 04-14-20 [facility] (1 source) Sulfamethoxazole / Trimethoprim; Translations: [SULFAMETHOXAZOLE-T RIMETHOPRIM] Drug Allergy 04-14-20 [facility] Medications Current Medications Medication Drug Class(es) [...] Start: 08-28-2022 take 1 capsule by mo [facility] every twenty-four hours Doxycycline Monohydrate 100 MG [...] day(s), # 10 tab(s), Refills(s) 0, Pharmacy: [facility] 0298, 166, cm, 06/09/24 10:17:00 EST, Height/Length [...] Status: Ordered take 0.5 tablet by [facility] once daily Lisinopril 40 MG 1/2 tablet [...] Status: Ordered take 2 tablets by mo [facility] twice daily metFORMIN HCl ER 500 MG [...] a day Active take 1 tablet by [facility] twice daily metoprolol (TOPROL-XL) 50 MG XL [...] 10-30-2023 Nystatin 100,000 unit/mL kellie pension Discontinued [id number] UNIT PO Daily October 17, 2023 11:00pm [...] Active Start: 09-18-2022 take 1 capsule by [facility] every twelve hours Lyrica 75 MG 1 capsule Orally Twice a day for 30 days September, Active Start: 08-24-2022 take 1 capsule by [facility] every twelve hours Lyrica 50 MG 1 [...] Daily, # 60 cap(s), Refills(s) 11, Pharmacy: [facility], 166, cm, 11/19/23 8:51:00 EDT, Height/Length Dosing, 82, kg, 11/19/23 8:51:00 EDT, Weight Dosing Start Date: 11/19/23 Status: Ordered Start: 03-17-2022 take 1 capsule by mo [facility] twice daily Tamsulosin 0.4 mg capsule Active 0.4 MG PO Twice daily March 16, 2022 11:00pm Start: 03-17-2022 Tamsulosin Act haydee MG PO March 17, 2022 12:00am Start: 02-27-2022 take 1 capsule by mo [facility] once daily Flomax 0.4 mg Cap 0.4 mg = 1 cap(s), Oral, Daily, # 30 cap(s), Refills(s) 6, Pharmacy: [id number], 168, cm, 02/27/22 9:27:00 EDT, Height/Length [...] manifestations] 06-25-2024 Episodic Other aftercare (1 source) 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; Translations: [GROUP HOME CURRNT USE ANTICOAGULANTS] Onset: 03-20-2022 Episodic Other aftercare (1 source) 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; Translations: [OTH GROUP HOME CURRENT DRUG THERAPY] Onset: 03-20-2022 Episodic Other aftercare (1 source) [facility] (current) use of oral hypoglycemic drugs; Translations: [GROUP HOME USE ORAL HYPOGLYCEMIC DX] Onset: 03-20-2022 Episodic Other aftercare (8 sources) Long-term current use of anticoagulant; Translations: [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 CT AP wo con 10/09/23 [facility] - Bilateral hydroceles, L appears [...] [facility] [address] [place] [phone] Additional Instructions: 4 mos w/ PVR Patient Education Prostatitis I, Opal Kessler, personally scribed for Dr. Rivera on 06/09/2024 11:14:10. . Documentation recorded by the scribeOpal, accurately reflects the services(s) I performed and decisions made by me. Authenticated by Dr. Rivera on 06/09/2024 11:16:12. Problem List/Past Medical History Ongoing Anticoagulated BPH with obstruction/lower urinary tra (more content not included)... [facility] Comment on above: Result Comment: Elec [...] Locations R1: This test was performed at: [facility], [address] [place] [address], [id number] , , [facility] Comment on above: Performed By: #### 2 [id number] #### [facility] [address] [place] [address] C Urineon 02-17-2024 Bacteria identified Cx Nom [...] Locations R1: This test was performed at: [facility], [address] [place] [address], [id number]- , [place], Normal [facility] Comment on above: Performed By: #### 2 [id number] #### [facility] [address] [place] [address] Urology Office/Clinic Noteon 02-15-2024 Urology Office/Clinic Note [...] lying in bed for 8 days. [place] [facility] [place] and was given antifungal [...] hydrocele only. CT AP wo con 10/09/23 [facility] - Bilateral hydroceles, L appears somewhat loculated. Cystic structure R inguinal region is nonspecific. 5. ED (erectile dysfunction) (N52.9: Male erectile dysfunction, unspecified) Has nitro tablets, contraindicated with ED meds. Previously recommended CLAUDIA or ICI but (more content not included)... Normal [facility] Comment on above: Result Comment: Elec tronically Signed By: Cristo RIVERA MD\.br\Date and Time Signed: 02/15/24 09:55 EDT\.br\Electronically Co-Signed By: Breann, Carmen B\.br\Date and Time Co-Signed: 02/15/24 09:47 EDT Follow-Upon 12-24-2023 Follow-Up Normal [facility] Ambulatory Visit Summaryon 0 12-21-2023 Ambulatory Visit [...] Cristo RIVERA MD Where: [facility] [address] [facility] [address] [place] [address] [place] [address]- You Need to Schedule the Following Appointments Follow Up with Cristo RIVERA MD, URL When: Where: [facility] [place] [address]- Medications What How Much When Instructions New [...] Information [facility]: [address], [place] [phone] Allergies doxycycline (Blisters beneath skin) penicillin (Anaphylaxis, [...] ( (more content not included)... [facility] Office/Clinic Noteon 12-21-2023 Urology Office/Clinic Note [...] lying in bed for 8 days. [place] [facility] [place] and was given antifungal [...] hydroceles, R>>L. CT AP wo con 10/09/23 [facility] - Bilateral hydroceles, L appears [...] Contact Information Cristo RIVERA MD, URL [address] [place] [address]- Additional Instructions: 2 mos w/ PVR Patient Education Orchitis Epid (more content not included)... Normal [facility] Comment on above: Result Comment: Elec tronically [...] for any concerns Echocardiogram as scheduled [facility] Basophils Auto (Bld) [#/Vol] on 11-23-2023 Basophils (Bld) [#/Vol] 0.0 10 3/uL 0.0-0.1 [facility] Basophils/100 WBC Auto (Bld) on 11-23-2023 Basophils/100 WBC (Bld) 0.1 % Low 0.2-2.0 [facility] Eosinophils/100 WBC Auto (Bl d)on 11-23-2023 Eosinophils/100 WBC (Bld) 0.8 % Low 0.9-7.0 [facility] Erythrocyte distribution wid th Auto (RBC) [Ratio]on 11-23-2023 Erythrocyte distribution width (RBC) [Ratio] 14.2 % 11.0-15.0 [facility] Estimated glomerular filtrat ion rate (GFR) non- Americanon 11-23-2023 GFR/1.73 sq M.predicted among non-blacks MDRD (S/P/Bld) [Vol rate/Area] mL/min/{1.73_m2} >=60 [facility] Globulin Calc (S) [Mass/Vol] on 11-23-2023 Globulin (S) [Mass/Vol] 4.2 g/dL [facility] Hematocrit Auto (Bld) [Volum e fraction]on 11-23-2023 Hematocrit (Bld) [Volume fraction] 34.1 % Low 42.0-54.0 [facility] Hemoglobin [Mass/volume] in Bloodon 11-23-2023 Hemoglobin (Bld) [Mass/Vol] 10.6 g/dL Low 14.0-18.0 [facility] Laboratory - Chemistry and C hemistry - challengeon 11-23-2023 Albumin [Mass/Vol] 3.1 g/dL Low 3.4-5.0 [facility] ALP [Catalytic activity/Vol] 77 U/L 46-116 [facility] ALT [Catalytic activity/Vol] 18 U/L 16-63 [facility] AST [Catalytic activity/Vol] 10 U/L Low 15-37 [facility] Bilirubin [Mass/Vol] 0.4 mg/dL 0.2-1.0 [facility] Calcium [Mass/Vol] 9.0 mg/dL 8.5-10.1 [facility] Chloride [Moles/Vol] 101 mmol/L 98-107 [facility] CO2 [Moles/Vol] 26.0 mmol/L 21.0-32.0 [facility] Creatinine [Mass/Vol] 1.07 mg/dL 0.70-1.30 [facility] GFR/1.73 sq M.predicted MDRD (S/P/Bld) [Vol rate/Area] mL/min/{1.73_m2} >=60 [facility] Glucose [Mass/Vol] 174 mg/dL High 74-106 [facility] Potassium [Moles/Vol] 4.4 mmol/L 3.5-5.1 [facility] Protein [Mass/Vol] 7.3 g/dL 6.4-8.2 [facility] Sodium [Moles/Vol] 135 mmol/L Low 136-145 [facility] Urea nitrogen [Mass/Vol] 22.0 mg/dL High 7.0-18.0 [facility] Urea nitrogen/Creatinine [Mass ratio] 20.6 mg/mg [facility] Laboratory - Hematology and Cell countson 11-23-2023 Immature granulocytes/100 WBC (Bld) 0.2 % 0.0-0.5 [facility] Leukocytes [#/volume] correc seth for nucleated erythrocytes in Blood by Automated counon 11-23-2023 WBC corrected for nucl RBC Auto (Bld) [#/Vol] 8.3 10 3/uL 4.0-11.0 [facility] Lymphocytes Auto (Bld) [#/Vo l]on 11-23-2023 Lymphocytes (Bld) [#/Vol] 2.1 10 3/uL 1.2-3.8 [facility] Lymphocytes/100 WBC Auto (Bl d)on 11-23-2023 Lymphocytes/100 WBC (Bld) 25.3 % 20.5-60.0 [facility] MCH Auto (RBC) [Entitic mass ]on 11-23-2023 MCH (RBC) [Entitic mass] 27.6 pg 25.9-34.0 [facility] MCHC Auto (RBC) [Mass/Vol]on 11-23-2023 MCHC (RBC) [Mass/Vol] 31.1 g/dL 29.9-35.2 [facility] MCV Auto (RBC) [Entitic vol] on 11-23-2023 MCV (RBC) [Entitic vol] 88.8 fL 80.0-94.0 [facility] Monocytes Auto (Bld) [#/Vol] on 11-23-2023 Monocytes (Bld) [#/Vol] 0.7 10 3/uL 0.3-0.8 [facility] Monocytes/100 WBC Auto (Bld) on 11-23-2023 Monocytes/100 WBC (Bld) 8.5 % 1.7-12.0 [facility] Neutrophils Auto (Bld) [#/Vo l]on 11-23-2023 Neutrophils (Bld) [#/Vol] 5.4 10 3/uL 1.4-6.5 [facility] Neutrophils/100 WBC Auto (Bl d)on 11-23-2023 Neutrophils/100 WBC (Bld) 65.1 % 43.0-75.0 [facility] No Panel Informationon 11-22 Eosinophils # (Auto) 0.1 10 3/uL 0.0-0.7 [facility] Immature Granulocyte # (Auto) 0.02 10 3/uL 0.00-0.03 [facility] Platelet mean volume Auto (B ld) [Entitic vol]on 11-23-2023 Platelet mean volume (Bld) [Entitic vol] 9.8 fL 9.5-13.5 [facility] Platelets Auto (Bld) [#/Vol] on 11-23-2023 Platelets (Bld) [#/Vol] 235 10 3/uL 150-450 [facility] RBC Auto (Bld) [#/Vol]on RBC (Bld) [#/Vol] 3.84 10 6/uL Low 4.70-6.10 [facility] Serum or plasma albumin/glob ulin mass ratioon 11-23-2023 Albumin/Globulin [Mass ratio] 0.7 {ratio} [facility] Serum or plasma anion gap de terminationon 11-23-2023 Anion gap [Moles/Vol] 12.4 mmol/L [facility] Follow-Upon 11-22-2023 Follow-Up Normal [facility] Ambulatory Visit Summaryon 0 11-19-2023 Ambulatory Visit [...] DIAZ, Cristo Frances Where: [facility] [place] Normal [facility] Urology Office/Clinic Noteon 11-19-2023 Urology Office/Clinic Note Urology Office/Clinic Note Chief Complaint f/u to Hydrocele HPI Staff 5 month f/u. Dx: hydrocele, ED, chronic prostatitis, BPH with obstruction/LUTS, urethral stricture in male, AC. *Tamsulosin 0.8mg qd and Dutasteride 0.5mg qd (needs refill of Tamsulosin) Last PSA 12/01/21 - 1.23. CT AP w con done 10/04/23 (ordered by ER doc) at [facility]. UCx 10/04/23 - >100k Pseudomonas aeruginosa and >100k Klebsiella oxytoca. Given vancomycin. UCx 10/26/23 - 30-40k Sally albicans. CT AP wo con done 10/09/23 at [facility] (ordered due to PREM and [...] lying in bed for 8 days. [place] [facility] [place] and was given antifungal [...] hydroceles, R>>L. CT AP wo con 10/09/23 [facility] - Bilateral hydroceles, L appears [...] to 16-30 Fr). [1] 7. 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 Had aortic valve replacement. Elevated risk for periop complications in the future. [2] Follow-up With When Contact Information NICOLE DIAZ, Cristo Frances, URL [facility] [address] [place] [address]- [phone] Additional Instructions: 1 month (no labs) Patient Education Epididymitis Orchitis IOpal, personally scribed for Dr. Rivera on 11/19/2023 09:43:41. . (more content not included)... Normal [facility] Comment on above: Result Comment: Elec tronically Signed By: Cristo RIVERA MD\.br\Date and Time Signed: 11/19/23 09:45 EDT\.br\Electronically Co-Signed By: Opal Kessler\Date and Time Co-Signed: 11/19/23 09:43 EDT 36on 11-16-2023 36 Normal [facility] Orders Onlyon 11-16-2023 Orders Only Normal [facility] Telephoneon 11-16-2023 Telephone Normal [facility] RAD - CT Reporton 10-30-2023 RAD - CT Report [id number] Normal [facility] Lab Reportson 10-29-2023 Lab Reports [id number]#[id number] F Normal [facility] Lab Reports [id number]#[id number] Normal [facility] Lab Reports [id number]#[id number] F Normal [facility] Laboratory - Microbiology an d Antimicrobial susceptibilityOrdered By: Cristo Rivera on 10-26-2023 Bacteria identified Cx Nom (U) [facility] Physician Referralon 024 Physician Referral [id number] Normal [facility] BASIC METABOLIC PANELon Anion gap [Moles/Vol] 13 mmol/L Normal 7-20 [facility] Comment on above: Performed By: #### L [id number] ####[facility] (BEAKER)[address] [place] [address] Calcium [Mass/Vol] 7.4 mg/dL Low 8.6-10.3 [facility] Comment on above: Performed By: #### L [id number] ####[facility] (BEAKER)[address] [place] [address] Chloride [Moles/Vol] 101 mmol/L Normal 98-107 [facility] Comment on above: Performed By: #### L [id number] ####[facility] (BEAKER)[address] [place] [address] CO2 [Moles/Vol] 24 mmol/L Normal 21-31 [facility] Comment on above: Performed By: #### L [id number] ####[facility] (BEAKER)[address] [place] [address] Creatinine [Mass/Vol] 0.72 mg/dL Normal 0.70-1.30 [facility] Comment on above: Performed By: #### L [id number] ####[facility] ([facility])[address] [place] [address] GLOMERULAR FILTRATION RATE ML/MIN/1.73 SQ M.PREDICTED 95.3 mL/min/1.73m*2 Normal >60.0 [facility] Comment on above: Result Comment: [facility]???s estimated glomerular filtration rate (eGFR) will no [...] of individuals. Performed By: #### L [id number] ####[facility] ([facility])[address] [place] [address] Glucose [Mass/Vol] 168 mg/dL High 70-100 [facility] Comment on above: Performed By: #### L [id number] ####[facility] ([facility])[address] [place] [address] Potassium [Moles/Vol] 4.2 mmol/L Normal 3.5-5.1 [facility] Comment on above: Performed By: #### L [id number] ####[facility] ([facility])[address] [place] [address] Sodium [Moles/Vol] 134 mmol/L Low 136-145 [facility] Comment on above: Performed By: #### L [id number] ####[facility] ([facility])[address] [place] [address] Urea nitrogen [Mass/Vol] 10 mg/dL Normal 7-25 [facility] Comment on above: Performed By: #### L [id number] ####[facility] ([facility])[address] [place] [address] UREA NITROGEN/CREATININE (MASS RATIO) IN SER/PLAS 13.9 Normal [facility] Comment on above: Performed By: #### L [id number] ####[facility] ([facility] [place] [address] CBC WITH AUTO DIFFERENTIALon 10-13-2023 Basophils (Bld) [#/Vol] 0.04 10*3/uL Normal 0.00-0.20 [facility] Comment on above: Performed By: #### L [id number] ####[facility] ([facility] [place] [address] Basophils/100 WBC (Bld) 0.3 % Normal 0.0-1.0 [facility] Comment on above: Performed By: #### L [id number] ####[facility] ([facility] [place] [address] Eosinophils (Bld) [#/Vol] 0.20 10*3/uL Normal 0.00-0.50 [facility] Comment on above: Performed By: #### L [id number] ####[facility] (BEAKER)[address] [place] [address] Eosinophils/100 WBC (Bld) 1.5 % Normal 0.0-6.0 [facility] Comment on above: Performed By: #### L [id number] ####[facility] (BEAKER)[address] [place] [address] Erythrocyte distribution width (RBC) [Ratio] 14.2 % Normal 11.5-15.0 [facility] Comment on above: Performed By: #### L [id number] ####[facility] (BEAKER)[address] [place] [address] ERYTHROCYTE MEAN CORPUSCULAR HEMOGLOBIN CONCENTRATION (G/DL) BY AUTOMATED 31.9 g/dL Low 32.0-35.0 [facility] Comment on above: Performed By: #### L [id number] ####[facility] (BEAKER)[address] [place] [address] Hematocrit (Bld) [Volume fraction] 29.5 % Low 39.0-55.0 [facility] Comment on above: Performed By: #### L [id number] ####[facility] (BEAKER)[address] [place] [address] Hemoglobin (Bld) [Mass/Vol] 9.4 g/dL Low 13.0-17.0 [facility] Comment on above: Performed By: #### L [id number] ####[facility] ([facility])[address] [place] [address] Immature granulocytes (Bld) [#/Vol] 0.24 10*3/uL High 0.00-0.20 [facility] Comment on above: Performed By: #### L [id number] ####[facility] ([facility]AK[facility])[address] [place] [address] Immature granulocytes/100 WBC (Bld) 1.8 % High 0.0-1.0 [facility] Comment on above: Performed By: #### L [id number] ####[facility] ([facility])[address] [place] [address] Lymphocytes (Bld) [#/Vol] 1.35 10*3/uL Normal 1.20-4.00 [facility] Comment on above: Performed By: #### L [id number] ####[facility] ([facility])[address] [place] [address] Lymphocytes/100 WBC (Bld) 10.1 % Low 20.0-45.0 [facility] Comment on above: Performed By: #### L [id number] ####[facility] ([facility])[address] [place] [address] MCH (RBC) [Entitic mass] 29.8 pg Normal 27.0-33.0 [facility] Comment on above: Performed By: #### L [id number] ####[facility] ([facility])[address] [place] [address] MCV (RBC) [Entitic vol] 93.7 fL Normal 82.0-98.0 [facility] Comment on above: Performed By: #### L [id number] ####[facility] ([facility])[address] [place] [address] Monocytes (Bld) [#/Vol] 0.85 10*3/uL Normal 0.10-1.00 [facility] Comment on above: Performed By: #### L [id number] ####[facility] ([facility])[address] [place] [address] Monocytes/100 WBC (Bld) 6.3 % Normal 5.0-12.0 [facility] Comment on above: Performed By: #### L [id number] ####[facility] ([facility])[address] [place] [address] Neutrophils (Bld) [#/Vol] 10.74 10*3/uL High 1.60-7.60 [facility] Comment on above: Performed By: #### L [id number] ####[facility] ([facility])[address] [place] [address] Neutrophils/100 WBC (Bld) 80.0 % High 40.0-72.0 [facility] Comment on above: Performed By: #### L [id number] ####[facility] ([facility])[address] [place] [address] NRBC (PER 100 WBCS) BY AUTOMATED COUNT 0.0 % Normal 0 [facility] Comment on above: Performed By: #### L [id number] ####[facility] ([facility])[address] [place] [address] PLATELETS (10*3/UL) IN BLOOD AUTOMATED COUNT 251 10*3/uL Normal 150-400 [facility] Comment on above: Performed By: #### L [id number] ####[facility] ([facility])[address] [place] [address] RBC (Bld) [#/Vol] 3.15 10*6/uL Low 4.20-5.70 [facility] Comment on above: Performed By: #### L [id number] ####[facility] ([facility])[address] [facility] [place] [address] WBC (Bld) [#/Vol] 13.42 10*3/uL High 4.00-10.60 [facility] Comment on above: Performed By: #### L [id number] ####[facility] ([facility])[address] [place] [address] DSon 10-13-2023 DS Normal [facility] POCT GLUCOSE METER UNSOLICIT ED RESULTSon 10-13-2023 Glucose [Mass/Vol] 197 mg/dL High 70-105 [facility] Comment on above: Order Comment: Waive d Testing in the ED is performed under the ED CLIA certificate #[id number]. Result Comment: [email or web address] Performed By: #### L [id number] ####[facility] ([facility])[address] [facility] [place] [address] 30on 10-12-2023 30 Normal [facility] APTTon 10-12-2023 ACTIVATED PARTIAL THROMBOPLASTIN TIME IN PPP BY COAGULATION ASSAY 140.8 Seconds Critically high 25.0-35.0 [facility] Comment on above: Result Comment: Clin ical significance of the APTT is questionable in the presence of heparin. Performed By: #### L [id number] ####[facility] ([facility])[address] [place] [address] ACTIVATED PARTIAL THROMBOPLASTIN TIME IN PPP BY COAGULATION ASSAY 128.9 Seconds High 25.0-35.0 [facility] Comment on above: Result Comment: Clin ical significance of the APTT is questionable in the presence of heparin. Performed By: #### L [id number] ####[facility] ([facility])[address] [place] [address] BASIC METABOLIC PANELon 09-13 Anion gap [Moles/Vol] 8 mmol/L Normal 7-20 [facility] Comment on above: Performed By: #### L [id number] ####[facility] ([facility])[address] [place] [address] Calcium [Mass/Vol] 7.2 mg/dL Low 8.6-10.3 [facility] Comment on above: Performed By: #### L [id number] ####[facility] ([facility])[address] [place] [address] Chloride [Moles/Vol] 102 mmol/L Normal 98-107 [facility] Comment on above: Performed By: #### L [id number] ####[facility] ([facility])[address] [place] [address] CO2 [Moles/Vol] 30 mmol/L Normal 21-31 [facility] Comment on above: Performed By: #### L [id number] ####[facility] ([facility])[address] [place] [address] Creatinine [Mass/Vol] 0.68 mg/dL Low 0.70-1.30 [facility] Comment on above: Performed By: #### L [id number] ####[facility] ([facility])[address] [place] [address] GLOMERULAR FILTRATION RATE ML/MIN/1.73 SQ M.PREDICTED 96.9 mL/min/1.73m*2 Normal >60.0 [facility] Comment on above: Result Comment: [facility]???s estimated glomerular filtration rate (eGFR) will no [...] of individuals. Performed By: #### L [id number] ####[facility] ([facility])[address] [place] [address] Glucose [Mass/Vol] 140 mg/dL High 70-100 [facility] Comment on above: Performed By: #### L [id number] ####[facility] ([facility]AKER)[address] [place] [address] Potassium [Moles/Vol] 3.3 mmol/L Low 3.5-5.1 [facility] Comment on above: Performed By: #### L [id number] ####[facility] ([facility])[address] [place] [address] Sodium [Moles/Vol] 137 mmol/L Normal 136-145 [facility] Comment on above: Performed By: #### L [id number] ####[facility] ([facility])[address] [place] [address] Urea nitrogen [Mass/Vol] 9 mg/dL Normal 7-25 [facility] Comment on above: Performed By: #### L [id number] ####[facility] ([facility])[address] [place] [address] UREA NITROGEN/CREATININE (MASS RATIO) IN SER/PLAS 13.2 Normal [facility] Comment on above: Performed By: #### L [id number] ####[facility] ([facility])[address] [place] [address] CBC WITH AUTO DIFFERENTIALon 10-12-2023 Basophils (Bld) [#/Vol] 0.03 10*3/uL Normal 0.00-0.20 [facility] Comment on above: Performed By: #### L [id number] ####[facility] ([facility])[address] [place] [address] Basophils/100 WBC (Bld) 0.2 % Normal 0.0-1.0 [facility] Comment on above: Performed By: #### L [id number] ####[facility] ([facility])[address] [address] Eosinophils (Bld) [#/Vol] 0.21 10*3/uL Normal 0.00-0.50 [facility] Comment on above: Performed By: #### L [id number] ####[facility] ([facility]ER)[address] [place] [address] Eosinophils/100 WBC (Bld) 1.4 % Normal 0.0-6.0 [facility] Comment on above: Performed By: #### L [id number] ####[facility] ([facility])[address] [place] [address] Erythrocyte distribution width (RBC) [Ratio] 13.7 % Normal 11.5-15.0 [facility] Comment on above: Performed By: #### L [id number] ####[facility] ([facility])[address] [place] [address] ERYTHROCYTE MEAN CORPUSCULAR HEMOGLOBIN CONCENTRATION (G/DL) BY AUTOMATED 32.3 g/dL Normal 32.0-35.0 [facility] Comment on above: Performed By: #### L [id number] ####[facility] ([facility])[address] [place] [address] Hematocrit (Bld) [Volume fraction] 29.4 % Low 39.0-55.0 [facility] Comment on above: Performed By: #### L [id number] ####[facility] ([facility])[address] [place] [address] Hemoglobin (Bld) [Mass/Vol] 9.5 g/dL Low 13.0-17.0 [facility] Comment on above: Performed By: #### L [id number] ####[facility] ([facility]ER)[address] [place] [address] Immature granulocytes (Bld) [#/Vol] 0.48 10*3/uL High 0.00-0.20 [facility] Comment on above: Performed By: #### L [id number] ####[facility] ([facility]ER)[address] [place] [address] Immature granulocytes/100 WBC (Bld) 3.2 % High 0.0-1.0 [facility] Comment on above: Performed By: #### L [id number] ####[facility] ([facility]ER)[address] [place] [address] Lymphocytes (Bld) [#/Vol] 2.16 10*3/uL Normal 1.20-4.00 [facility] Comment on above: Performed By: #### L [id number] ####[facility] ([facility]ER)[address] [place] [address] Lymphocytes/100 WBC (Bld) 14.3 % Low 20.0-45.0 [facility] Comment on above: Performed By: #### L [id number] ####[facility] ([facility])[address] [place] [address] MCH (RBC) [Entitic mass] 29.1 pg Normal 27.0-33.0 [facility] Comment on above: Performed By: #### L [id number] ####[facility] ([facility])[address] [place] [address] MCV (RBC) [Entitic vol] 90.2 fL Normal 82.0-98.0 [facility] Comment on above: Performed By: #### L [id number] ####[facility] ([facility])[address] [place] [address] Monocytes (Bld) [#/Vol] 0.95 10*3/uL Normal 0.10-1.00 [facility] Comment on above: Performed By: #### L [id number] ####[facility] ([facility]ER)[address] [place] [address] Monocytes/100 WBC (Bld) 6.3 % Normal 5.0-12.0 [facility] Comment on above: Performed By: #### L [id number] ####[facility] ([facility]ER)[address] [place] [address] Neutrophils (Bld) [#/Vol] 11.30 10*3/uL High 1.60-7.60 [facility] Comment on above: Performed By: #### L [id number] ####[facility] ([facility]ER)[address] [place] [address] Neutrophils/100 WBC (Bld) 74.6 % High 40.0-72.0 [facility] Comment on above: Performed By: #### L [id number] ####[facility] ([facility])[address] [place] [address] NRBC (PER 100 WBCS) BY AUTOMATED COUNT 0.0 % Normal 0 [facility] Comment on above: Performed By: #### L [id number] ####[facility] ([facility])[address] [place] [address] PLATELETS (10*3/UL) IN BLOOD AUTOMATED COUNT 273 10*3/uL Normal 150-400 [facility] Comment on above: Performed By: #### L [id number] ####[facility] ([facility])[address] [place] [address] RBC (Bld) [#/Vol] 3.26 10*6/uL Low 4.20-5.70 [facility] Comment on above: Performed By: #### L [id number] ####[facility] ([facility])[address] [place] [address] WBC (Bld) [#/Vol] 15.13 10*3/uL High 4.00-10.60 [facility] Comment on above: Performed By: #### L [id number] ####[facility] ([facility])[address] [place] [address] POCT GLUCOSE METER UNSOLICIT ED RESULTSon 10-12-2023 Glucose [Mass/Vol] 136 mg/dL High 70-105 [facility] Comment on above: Order Comment: Waive d Testing in the ED is performed under the ED CLIA certificate #[id number]. Result Comment: [email or web address] Performed By: #### L [id number] ####[facility] ([facility])[address] [place] [address] Glucose [Mass/Vol] 205 mg/dL High 70-105 [facility] Comment on above: Order Comment: Waive d Testing in the ED is performed under the ED CLIA certificate #[id number]. Result Comment: [email or web address] Performed By: #### L [id number] ####[facility] ([facility])[address] [place] [address] Glucose [Mass/Vol] 295 mg/dL High 70-105 [facility] Comment on above: Order Comment: Waive d Testing in the ED is performed under the ED CLIA certificate #[id number]. Result Comment: [email or web address] Performed By: #### L [id number] ####[facility] ([facility])[address] [place] [address] Glucose [Mass/Vol] 156 mg/dL High 70-105 [facility] Comment on above: Order Comment: Waive d Testing in the ED is performed under the ED CLIA certificate #[id number]. Result Comment: [email or web address] Performed By: #### L [id number] ####[facility] ([facility])[address] [place] [address] 30on 10-11-2023 30 Normal [facility] APTTon 10-11-2023 ACTIVATED PARTIAL THROMBOPLASTIN TIME IN PPP BY COAGULATION ASSAY 167.7 Seconds Critically high 25.0-35.0 [facility] Comment on above: Result Comment: Clin ical significance of the APTT is questionable in the presence of heparin. Performed By: #### L [id number] ####[facility] ([facility])[address] [place] [address] ACTIVATED PARTIAL THROMBOPLASTIN TIME IN PPP BY COAGULATION ASSAY 135.7 Seconds Critically high 25.0-35.0 [facility] Comment on above: Result Comment: Clin ical significance of the APTT is questionable in the presence of heparin. Performed By: #### L [id number] ####[facility] ([facility])[address] [place] [address] ACTIVATED PARTIAL THROMBOPLASTIN TIME IN PPP BY COAGULATION ASSAY 113.2 Seconds High 25.0-35.0 [facility] Comment on above: Result Comment: Clin ical significance of the APTT is questionable in the presence of heparin. Performed By: #### L [id number] ####[facility] ([facility])[address] [place] [address] BASIC METABOLIC PANELon 05-3 0-2024 Anion gap [Moles/Vol] 9 mmol/L Normal 7-20 [facility] Comment on above: Performed By: #### L [id number] ####[facility] ([facility])[address] [place] [address] Calcium [Mass/Vol] 7.6 mg/dL Low 8.6-10.3 [facility] Comment on above: Performed By: #### L [id number] ####[facility] ([facility])[address] [place] [address] Chloride [Moles/Vol] 99 mmol/L Normal 98-107 [facility] Comment on above: Performed By: #### L [id number] ####[facility] ([facility])[address] [place] [address] CO2 [Moles/Vol] 30 mmol/L Normal 21-31 [facility] Comment on above: Performed By: #### L [id number] ####[facility] ([facility])[address] [place] [address] Creatinine [Mass/Vol] 0.67 mg/dL Low 0.70-1.30 [facility] Comment on above: Performed By: #### L [id number] ####[facility] ([facility])[address] [place] [address] GLOMERULAR FILTRATION RATE ML/MIN/1.73 SQ M.PREDICTED 97.4 mL/min/1.73m*2 Normal >60.0 [facility] Comment on above: Result Comment: [facility]???s estimated glomerular filtration rate (eGFR) will no [...] of individuals. Performed By: #### L [id number] ####[facility] ([facility])[address] [place] [address] Glucose [Mass/Vol] 145 mg/dL High 70-100 [facility] Comment on above: Performed By: #### L [id number] ####[facility] ([facility])[address] [place] [address] Potassium [Moles/Vol] 3.1 mmol/L Low 3.5-5.1 [facility] Comment on above: Performed By: #### L [id number] ####[facility] ([facility])[address] [place] [address] Sodium [Moles/Vol] 135 mmol/L Low 136-145 [facility] Comment on above: Performed By: #### L [id number] ####[facility] ([facility])[address] [place] [address] Urea nitrogen [Mass/Vol] 14 mg/dL Normal 7-25 [facility] Comment on above: Performed By: #### L [id number] ####[facility] ([facility])[address] [place] [address] UREA NITROGEN/CREATININE (MASS RATIO) IN SER/PLAS 20.9 Normal [facility] Comment on above: Performed By: #### L [id number] ####[facility] ([facility])[address] [place] [address] CBC WITH AUTO DIFFERENTIALon 10-11-2023 Basophils (Bld) [#/Vol] 0.03 10*3/uL Normal 0.00-0.20 [facility] Comment on above: Performed By: #### L [id number] ####[facility] ([facility])[address] [place] [address] Basophils/100 WBC (Bld) 0.2 % Normal 0.0-1.0 [facility] Comment on above: Performed By: #### L [id number] ####[facility] ([facility])[address] [place] [address] Eosinophils (Bld) [#/Vol] 0.17 10*3/uL Normal 0.00-0.50 [facility] Comment on above: Performed By: #### L [id number] ####[facility] ([facility]ER)[address] [place] [address] Eosinophils/100 WBC (Bld) 1.3 % Normal 0.0-6.0 [facility] Comment on above: Performed By: #### L [id number] ####[facility] ([facility])[address] [place] [address] Erythrocyte distribution width (RBC) [Ratio] 13.7 % Normal 11.5-15.0 [facility] Comment on above: Performed By: #### L [id number] ####[facility] ([facility])[address] [place] [address] ERYTHROCYTE MEAN CORPUSCULAR HEMOGLOBIN CONCENTRATION (G/DL) BY AUTOMATED 32.6 g/dL Normal 32.0-35.0 [facility] Comment on above: Performed By: #### L [id number] ####[facility] ([facility])[address] [address] Hematocrit (Bld) [Volume fraction] 30.1 % Low 39.0-55.0 [facility] Comment on above: Performed By: #### L [id number] ####[facility] ([facility])[address] [place] [address] Hemoglobin (Bld) [Mass/Vol] 9.8 g/dL Low 13.0-17.0 [facility] Comment on above: Performed By: #### L [id number] ####[facility] ([facility])[address] [place] [address] Immature granulocytes (Bld) [#/Vol] 0.39 10*3/uL High 0.00-0.20 [facility] Comment on above: Performed By: #### L [id number] ####[facility] ([facility])[address] [place] [address] Immature granulocytes/100 WBC (Bld) 3.0 % High 0.0-1.0 [facility] Comment on above: Performed By: #### L [id number] ####[facility] ([facility])[address] [place] [address] Lymphocytes (Bld) [#/Vol] 1.65 10*3/uL Normal 1.20-4.00 [facility] Comment on above: Performed By: #### L [id number] ####[facility] ([facility])[address] [place] [address] Lymphocytes/100 WBC (Bld) 12.6 % Low 20.0-45.0 [facility] Comment on above: Performed By: #### L [id number] ####[facility] ([facility])[address] [place] [address] MCH (RBC) [Entitic mass] 29.7 pg Normal 27.0-33.0 [facility] Comment on above: Performed By: #### L [id number] ####[facility] ([facility])[address] [place] [address] MCV (RBC) [Entitic vol] 91.2 fL Normal 82.0-98.0 [facility] Comment on above: Performed By: #### L [id number] ####[facility] ([facility])[address] [place] [address] Monocytes (Bld) [#/Vol] 1.07 10*3/uL High 0.10-1.00 [facility] Comment on above: Performed By: #### L [id number] ####[facility] ([facility])[address] [place] [address] Monocytes/100 WBC (Bld) 8.2 % Normal 5.0-12.0 [facility] Comment on above: Performed By: #### L [id number] ####[facility] ([facility])[address] [place] [address] Neutrophils (Bld) [#/Vol] 9.75 10*3/uL High 1.60-7.60 [facility] Comment on above: Performed By: #### L [id number] ####[facility] ([facility])[address] [place] [address] Neutrophils/100 WBC (Bld) 74.7 % High 40.0-72.0 [facility] Comment on above: Performed By: #### L [id number] ####[facility] ([facility])[address] [address] NRBC (PER 100 WBCS) BY AUTOMATED COUNT 0.0 % Normal 0 [facility] Comment on above: Performed By: #### L [id number] ####[facility] ([facility])[address] [address] PLATELETS (10*3/UL) IN BLOOD AUTOMATED COUNT 246 10*3/uL Normal 150-400 [facility] Comment on above: Performed By: #### L [id number] ####[facility] ([facility])[address] [address] RBC (Bld) [#/Vol] 3.30 10*6/uL Low 4.20-5.70 [facility] Comment on above: Performed By: #### L [id number] ####[facility] ([facility])[address], [place] [address] WBC (Bld) [#/Vol] 13.06 10*3/uL High 4.00-10.60 [facility] Comment on above: Performed By: #### L [id number] ####[facility] ([facility])[address], [place] [address] MAGNESIUMon 10-11-2023 Magnesium [Mass/Vol] 1.9 mg/dL Normal 1.9-2.7 [facility] Comment on above: Performed By: #### L [id number] ####[facility] ([facility] [address] POCT GLUCOSE METER UNSOLICIT ED RESULTSon 10-11-2023 Glucose [Mass/Vol] 240 mg/dL High 70-105 [facility] Comment on above: Order Comment: Waive d Testing in the ED is performed under the ED CLIA certificate #[id number]. Result Comment: bacr es Performed By: #### L [id number] ####[facility] ([facility])[address] [place] [address] Glucose [Mass/Vol] 158 mg/dL High 70-105 [facility] Comment on above: Order Comment: Waive d Testing in the ED is performed under the ED CLIA certificate #[id number]. Result Comment: [email or web address] [email or web address] Performed By: #### L [id number] ####[facility] ([facility])[address] [place] [address] Glucose [Mass/Vol] 119 mg/dL High 70-105 [facility] Comment on above: Order Comment: Waive d Testing in the ED is performed under the ED CLIA certificate #[id number]. Result Comment: [email or web address] Performed By: #### L [id number] ####[facility] ([facility])[address] [place] [address] Glucose [Mass/Vol] 312 mg/dL High 70-105 [facility] Comment on above: Order Comment: Waive d Testing in the ED is performed under the ED CLIA certificate #[id number]. Result Comment: [email or web address] Performed By: #### L [id number] ####[facility] (BEAKER)[address] [place] [address] Glucose [Mass/Vol] 142 mg/dL High 70-105 [facility] Comment on above: Order Comment: Waive d Testing in the ED is performed under the ED CLIA certificate #[id number]. Result Comment: [email or web address] Performed By: #### L [id number] ####[facility] ([facility])[address] [place] [address] Glucose [Mass/Vol] 180 mg/dL High 70-105 [facility] Comment on above: Order Comment: Waive d Testing in the ED is performed under the ED CLIA certificate #[id number]. Result Comment: [email or web address] Performed By: #### L [id number] ####[facility] ([facility])[address] [place] [address] 30on 10-10-2023 30 Normal [facility] APTTon 10-10-2023 ACTIVATED PARTIAL THROMBOPLASTIN TIME IN PPP BY COAGULATION ASSAY 117.1 Seconds High 25.0-35.0 [facility] Comment on above: Result Comment: Clin ical significance of the APTT is questionable in the presence of heparin. Performed By: #### L [id number] ####[facility] ([facility])[address] [place] [address] ACTIVATED PARTIAL THROMBOPLASTIN TIME IN PPP BY COAGULATION ASSAY 135.6 Seconds Critically high 25.0-35.0 [facility] Comment on above: Result Comment: Clin ical significance of the APTT is questionable in the presence of heparin. Performed By: #### L [id number] ####[facility] ([facility])[address] [place] [address] ACTIVATED PARTIAL THROMBOPLASTIN TIME IN PPP BY COAGULATION ASSAY 140.7 Seconds Critically high 25.0-35.0 [facility] Comment on above: Result Comment: Clin ical significance of the APTT is questionable in the presence of heparin. Performed By: #### L [id number] ####[facility] ([facility])[address] [place] [address] CBCon 10-10-2023 Erythrocyte distribution width (RBC) [Ratio] 13.8 % Normal 11.5-15.0 [facility] Comment on above: Performed By: #### L [id number] ####[facility] ([facility])[address] [place] [address] ERYTHROCYTE MEAN CORPUSCULAR HEMOGLOBIN CONCENTRATION (G/DL) BY AUTOMATED 31.9 g/dL Low 32.0-35.0 [facility] Comment on above: Performed By: #### L [id number] ####[facility] ([facility])[address] [place] [address] Hematocrit (Bld) [Volume fraction] 30.7 % Low 39.0-55.0 [facility] Comment on above: Performed By: #### L [id number] ####[facility] ([facility])[address] [place] [address] Hemoglobin (Bld) [Mass/Vol] 9.8 g/dL Low 13.0-17.0 [facility] Comment on above: Performed By: #### L [id number] ####[facility] ([facility])[address] [place] [address] MCH (RBC) [Entitic mass] 29.3 pg Normal 27.0-33.0 [facility] Comment on above: Performed By: #### L [id number] ####[facility] ([facility])[address] [place] [address] MCV (RBC) [Entitic vol] 91.6 fL Normal 82.0-98.0 [facility] Comment on above: Performed By: #### L [id number] ####[facility] ([facility])[address] [place] [address] PLATELETS (10*3/UL) IN BLOOD AUTOMATED COUNT 220 10*3/uL Normal 150-400 [facility] Comment on above: Performed By: #### L [id number] ####[facility] ([facility])[address] [place] [address] RBC (Bld) [#/Vol] 3.35 10*6/uL Low 4.20-5.70 [facility] Comment on above: Performed By: #### L [id number] ####[facility] ([facility])[address] [place] [address] WBC (Bld) [#/Vol] 12.50 10*3/uL High 4.00-10.60 [facility] Comment on above: Performed By: #### L [id number] ####[facility] ([facility])[address] [place] [address] NURSNOTEon 10-10-2023 NURSNOTE Normal [facility] NURSNOTE Normal [facility] POCT GLUCOSE METER UNSOLICIT ED RESULTSon 10-10-2023 Glucose [Mass/Vol] 148 mg/dL High 70-105 [facility] Comment on above: Order Comment: Waive d Testing in the ED is performed under the ED CLIA certificate #[id number]. Result Comment: [email or web address] Performed By: #### L [id number] ####[facility] ([facility])[address] [place] [address] Glucose [Mass/Vol] 151 mg/dL High 70-105 [facility] Comment on above: Order Comment: Waive d Testing in the ED is performed under the ED CLIA certificate #[id number]. Result Comment: [email or web address] [email or web address] Performed By: #### L [id number] ####[facility] ([facility])[address] [facility] [address] 30on 10-09-2023 30 Normal [facility] APTTon 10-09-2023 ACTIVATED PARTIAL THROMBOPLASTIN TIME IN PPP BY COAGULATION ASSAY 113.5 Seconds High 25.0-35.0 [facility] Comment on above: Result Comment: Clin ical significance of the APTT is questionable in the presence of heparin. Performed By: #### L [id number] ####[facility] ([facility])[address] [place] [address] ACTIVATED PARTIAL THROMBOPLASTIN TIME IN PPP BY COAGULATION ASSAY 110.9 Seconds High 25.0-35.0 [facility] Comment on above: Result Comment: Clin ical significance of the APTT is questionable in the presence of heparin. Performed By: #### L [id number] ####[facility] ([facility])[address] [place] [address] BASIC METABOLIC PANELon 09-12 Anion gap [Moles/Vol] 14 mmol/L Normal 7-20 [facility] Comment on above: Performed By: #### L [id number] ####[facility] ([facility])[address] [place] [address] Calcium [Mass/Vol] 7.3 mg/dL Low 8.6-10.3 [facility] Comment on above: Performed By: #### L [id number] ####[facility] (BEAKER)[address] [place] [address] Chloride [Moles/Vol] 98 mmol/L Normal 98-107 [facility] Comment on above: Performed By: #### L [id number] ####[facility] ([facility])[address] [place] [address] CO2 [Moles/Vol] 30 mmol/L Normal 21-31 [facility] Comment on above: Performed By: #### L [id number] ####[facility] ([facility])[address] [place] [address] Creatinine [Mass/Vol] 0.89 mg/dL Normal 0.70-1.30 [facility] Comment on above: Performed By: #### L [id number] ####[facility] ([facility])[address] [place] [address] GLOMERULAR FILTRATION RATE ML/MIN/1.73 SQ M.PREDICTED 89.4 mL/min/1.73m*2 Normal >60.0 [facility] Comment on above: Result Comment: [facility]???s estimated glomerular filtration rate (eGFR) will no [...] of individuals. Performed By: #### L [id number] ####[facility] ([facility])[address] [place] [address] Glucose [Mass/Vol] 171 mg/dL High 70-100 [facility] Comment on above: Performed By: #### L [id number] ####[facility] ([facility])[address] [place] [address] Potassium [Moles/Vol] 3.6 mmol/L Normal 3.5-5.1 [facility] Comment on above: Performed By: #### L [id number] ####[facility] ([facility]AKER)[address] [place] [address] Sodium [Moles/Vol] 138 mmol/L Normal 136-145 [facility] Comment on above: Performed By: #### L [id number] ####[facility] ([facility])[address] [place] [address] Urea nitrogen [Mass/Vol] 24 mg/dL Normal 7-25 [facility] Comment on above: Performed By: #### L [id number] ####[facility] ([facility])[address] [place] [address] UREA NITROGEN/CREATININE (MASS RATIO) IN SER/PLAS 27.0 Normal [facility] Comment on above: Performed By: #### L [id number] ####[facility] ([facility])[address] [place] [address] CBCon 10-09-2023 Erythrocyte distribution width (RBC) [Ratio] 13.6 % Normal 11.5-15.0 [facility] Comment on above: Performed By: #### L [id number] ####[facility] ([facility])[address] [place] [address] ERYTHROCYTE MEAN CORPUSCULAR HEMOGLOBIN CONCENTRATION (G/DL) BY AUTOMATED 32.1 g/dL Normal 32.0-35.0 [facility] Comment on above: Performed By: #### L [id number] ####[facility] ([facility])[address] [place] [address] Hematocrit (Bld) [Volume fraction] 29.6 % Low 39.0-55.0 [facility] Comment on above: Performed By: #### L [id number] ####[facility] ([facility]AKER)[address] [place] [address] Hemoglobin (Bld) [Mass/Vol] 9.5 g/dL Low 13.0-17.0 [facility] Comment on above: Performed By: #### L [id number] ####[facility] ([facility])[address] [place] [address] MCH (RBC) [Entitic mass] 29.4 pg Normal 27.0-33.0 [facility] Comment on above: Performed By: #### L [id number] ####[facility] ([facility])[address] [place] [address] MCV (RBC) [Entitic vol] 91.6 fL Normal 82.0-98.0 [facility] Comment on above: Performed By: #### L [id number] ####[facility] ([facility])[address] [place] [address] PLATELETS (10*3/UL) IN BLOOD AUTOMATED COUNT 180 10*3/uL Normal 150-400 [facility] Comment on above: Performed By: #### L [id number] ####[facility] ([facility])[address] [place] [address] RBC (Bld) [#/Vol] 3.23 10*6/uL Low 4.20-5.70 [facility] Comment on above: Performed By: #### L [id number] ####[facility] ([facility])[address] [place] [address] WBC (Bld) [#/Vol] 12.91 10*3/uL High 4.00-10.60 [facility] Comment on above: Performed By: #### L [id number] ####[facility] ([facility])[address] [place] [address] CONSULTon 10-09-2023 CONSULT Normal [facility] CONSULT Normal [facility] CONSULT Normal [facility] CT ABDOMEN PELVIS WO IV CONT RASTon 10-09-2023 CT ABDOMEN PELVIS WO IV CONTRAST Invalid Interpretation Code [facility] Comment on above: Order Comment: With Oral contrast MAGNESIUMon 10-09-2023 Magnesium [Mass/Vol] 2.2 mg/dL Normal 1.9-2.7 [facility] Comment on above: Performed By: #### L [id number] ####[facility] ([facility])[address] [place] [address] PHOSPHORUSon 10-09-2023 Magnesium [Mass/Vol] 2.3 mg/dL Low 2.5-5.0 [facility] Comment on above: Performed By: #### L [id number] ####[facility] ([facility])[address] [place] [address] POCT GLUCOSE METER UNSOLICIT ED RESULTSon 10-09-2023 Glucose [Mass/Vol] 186 mg/dL High 70-105 [facility] Comment on above: Order Comment: Waive d Testing in the ED is performed under the ED CLIA certificate #[id number]. Result Comment: [email or web address] [email or web address] Performed By: #### L [id number] ####[facility] ([facility])[address] [place] [address] Glucose [Mass/Vol] 136 mg/dL High 70-105 [facility] Comment on above: Order Comment: Waive d Testing in the ED is performed under the ED CLIA certificate #[id number]. Result Comment: dnuc kol Performed By: #### L [id number] ####[facility] ([facility])[address] [place] [address] Glucose [Mass/Vol] 172 mg/dL High 70-105 [facility] Comment on above: Order Comment: Waive d Testing in the ED is performed under the ED CLIA certificate #[id number]. Result Comment: dnuc kol Performed By: #### L [id number] ####[facility] ([facility])[address] [place] [address] Glucose [Mass/Vol] 172 mg/dL High 70-105 [facility] Comment on above: Order Comment: Waive d Testing in the ED is performed under the ED CLIA certificate #[id number]. Result Comment: balta tti Performed By: #### L [id number] ####[facility] ([employer])[address] [place] [address] Glucose [Mass/Vol] 169 mg/dL High 70-105 [facility] Comment on above: Order Comment: Waive d Testing in the ED is performed under the ED CLIA certificate #[id number]. Result Comment: [email or web address] tti Performed By: #### L [id number] ####[facility] ([facility])[address] [place] [address] APTTon 10-08-2023 ACTIVATED PARTIAL THROMBOPLASTIN TIME IN PPP BY COAGULATION ASSAY 65.5 Seconds High 25.0-35.0 [facility] Comment on above: Result Comment: Clin ical significance of the APTT is questionable in the presence of heparin. Performed By: #### L [id number] ####[facility] ([facility])[address] [place] [address] ACTIVATED PARTIAL THROMBOPLASTIN TIME IN PPP BY COAGULATION ASSAY 43.4 Seconds High 25.0-35.0 [facility] Comment on above: Result Comment: Clin ical significance of the APTT is questionable in the presence of heparin. Performed By: #### L [id number] ####[facility] ([facility])[address] [place] [address] ACTIVATED PARTIAL THROMBOPLASTIN TIME IN PPP BY COAGULATION ASSAY 75.0 Seconds High 25.0-35.0 [facility] Comment on above: Result Comment: Clin ical significance of the APTT is questionable in the presence of heparin. Performed By: #### L [id number] ####[facility] ([facility])[address] [place] [address] BASIC METABOLIC PANELon - Anion gap [Moles/Vol] 10 mmol/L Normal 7-20 [facility] Comment on above: Performed By: #### L [id number] ####[facility] ([facility])[address] [place] [address] Calcium [Mass/Vol] 7.5 mg/dL Low 8.6-10.3 [facility] Comment on above: Performed By: #### L [id number] ####[facility] ([facility])[address] [place] [address] Chloride [Moles/Vol] 97 mmol/L Low 98-107 [facility] Comment on above: Performed By: #### L [id number] ####[facility] ([facility])[address] [place] [address] CO2 [Moles/Vol] 31 mmol/L Normal 21-31 [facility] Comment on above: Performed By: #### L [id number] ####[facility] ([facility])[address] [place] [address] Creatinine [Mass/Vol] 0.93 mg/dL Normal 0.70-1.30 [facility] Comment on above: Performed By: #### L [id number] ####[facility] ([facility])[address] [place] [address] GLOMERULAR FILTRATION RATE ML/MIN/1.73 SQ M.PREDICTED 85.6 mL/min/1.73m*2 Normal >60.0 [facility] Comment on above: Result Comment: [facility]???s estimated glomerular filtration rate (eGFR) will no [...] of individuals. Performed By: #### L [id number] ####[facility] ([facility])[address] [place] [address] Glucose [Mass/Vol] 128 mg/dL High 70-100 [facility] Comment on above: Performed By: #### L [id number] ####[facility] ([facility])[address] [place] [address] Potassium [Moles/Vol] 3.4 mmol/L Low 3.5-5.1 [facility] Comment on above: Performed By: #### L [id number] ####[facility] ([facility]ER)[address] [place] [address] Sodium [Moles/Vol] 135 mmol/L Low 136-145 [facility] Comment on above: Performed By: #### L [id number] ####[facility] ([facility]ER)[address] [place] [address] Urea nitrogen [Mass/Vol] 26 mg/dL High 7-25 [facility] Comment on above: Performed By: #### L [id number] ####[facility] ([facility]AKER)[address] [place] [address] UREA NITROGEN/CREATININE (MASS RATIO) IN SER/PLAS 28.0 Normal [facility] Comment on above: Performed By: #### L [id number] ####[facility] ([facility] [place] [address] CBCon 10-08-2023 Erythrocyte distribution width (RBC) [Ratio] 13.3 % Normal 11.5-15.0 [facility] Comment on above: Performed By: #### L [id number] ####[facility] ([facility])[address] [place] [address] ERYTHROCYTE MEAN CORPUSCULAR HEMOGLOBIN CONCENTRATION (G/DL) BY AUTOMATED 33.9 g/dL Normal 32.0-35.0 [facility] Comment on above: Performed By: #### L [id number] ####[facility] ([facility]ER)[address] [place] [address] Hematocrit (Bld) [Volume fraction] 30.1 % Low 39.0-55.0 [facility] Comment on above: Performed By: #### L [id number] ####[facility] (BEAKER)[address] [place] [address] Hemoglobin (Bld) [Mass/Vol] 10.2 g/dL Low 13.0-17.0 [facility] Comment on above: Performed By: #### L [id number] ####[facility] ([facility]ER)[address] [place] [address] MCH (RBC) [Entitic mass] 30.0 pg Normal 27.0-33.0 [facility] Comment on above: Performed By: #### L [id number] ####[facility] ([facility])[address] [place] [address] MCV (RBC) [Entitic vol] 88.5 fL Normal 82.0-98.0 [facility] Comment on above: Performed By: #### L [id number] ####[facility] ([facility])[address] [place] [address] PLATELETS (10*3/UL) IN BLOOD AUTOMATED COUNT 161 10*3/uL Normal 150-400 [facility] Comment on above: Performed By: #### L [id number] ####[facility] ([facility])[address] [place] [address] RBC (Bld) [#/Vol] 3.40 10*6/uL Low 4.20-5.70 [facility] Comment on above: Performed By: #### L [id number] ####[facility] ([facility])[address] [place] [address] WBC (Bld) [#/Vol] 15.73 10*3/uL High 4.00-10.60 [facility] Comment on above: Performed By: #### L [id number] ####[facility] ([facility])[address] [place] [address] MAGNESIUMon 10-08-2023 Magnesium [Mass/Vol] 2.4 mg/dL Normal 1.9-2.7 [facility] Comment on above: Performed By: #### L [id number] ####[facility] ([facility])[address] [place] [address] PHOSPHORUSon 10-08-2023 Magnesium [Mass/Vol] 1.7 mg/dL Low 2.5-5.0 [facility] Comment on above: Performed By: #### L [id number] ####[facility] ([facility])[address] [place] [address] POCT GLUCOSE METER UNSOLICIT ED RESULTSon 10-08-2023 Glucose [Mass/Vol] 145 mg/dL High 70-105 [facility] Comment on above: Order Comment: Waive d Testing in the ED is performed under the ED CLIA certificate #[id number]. Result Comment: drew banda Performed By: #### L [id number] ####[facility] ([facility])[address] [place] [address] Glucose [Mass/Vol] 157 mg/dL High 70-105 [facility] Comment on above: Order Comment: Waive d Testing in the ED is performed under the ED CLIA certificate #[id number]. Result Comment: [email or web address] Performed By: #### L [id number] ####[facility] ([facility])[address] [place] [address] Glucose [Mass/Vol] 132 mg/dL High 70-105 [facility] Comment on above: Order Comment: Waive d Testing in the ED is performed under the ED CLIA certificate #[id number]. Result Comment: balta tti Performed By: #### L [id number] ####[facility] ([facility])[address] [place] [address] Glucose [Mass/Vol] 200 mg/dL High 70-105 [facility] Comment on above: Order Comment: Waive d Testing in the ED is performed under the ED CLIA certificate #[id number]. Result Comment: agoe tti Performed By: #### L [id number] ####[facility] ([facility] [place] [address] APTTon 10-07-2023 ACTIVATED PARTIAL THROMBOPLASTIN TIME IN PPP BY COAGULATION ASSAY 63.7 Seconds High 25.0-35.0 [facility] Comment on above: Result Comment: Clin ical significance of the APTT is questionable in the presence of heparin. Performed By: #### L [id number] ####[facility] ([facility])[address] [place] [address] ACTIVATED PARTIAL THROMBOPLASTIN TIME IN PPP BY COAGULATION ASSAY 49.5 Seconds High 25.0-35.0 [facility] Comment on above: Result Comment: Clin ical significance of the APTT is questionable in the presence of heparin. Performed By: #### L [id number] ####[facility] ([facility])[address] [place] [address] ACTIVATED PARTIAL THROMBOPLASTIN TIME IN PPP BY COAGULATION ASSAY 64.0 Seconds High 25.0-35.0 [facility] Comment on above: Result Comment: Clin ical significance of the APTT is questionable in the presence of heparin. Performed By: #### L [id number] ####[facility] ([facility])[address] [place] [address] BASIC METABOLIC PANELon 05-2 Anion gap [Moles/Vol] 15 mmol/L Normal 7-20 [facility] Comment on above: Performed By: #### L [id number] ####[facility] ([facility])[address] [place] [address] Calcium [Mass/Vol] 7.3 mg/dL Low 8.6-10.3 [facility] Comment on above: Performed By: #### L [id number] ####[facility] ([facility])[address] [place] [address] Chloride [Moles/Vol] 95 mmol/L Low 98-107 [facility] Comment on above: Performed By: #### L [id number] ####[facility] ([facility])[address] [place] [address] CO2 [Moles/Vol] 26 mmol/L Normal 21-31 [facility] Comment on above: Performed By: #### L [id number] ####[facility] ([facility])[address] [place] [address] Creatinine [Mass/Vol] 1.09 mg/dL Normal 0.70-1.30 [facility] Comment on above: Performed By: #### L [id number] ####[facility] ([facility])[address] [place] [address] GLOMERULAR FILTRATION RATE ML/MIN/1.73 SQ M.PREDICTED 70.8 mL/min/1.73m*2 Normal >60.0 [facility] Comment on above: Result Comment: [facility]???s estimated glomerular filtration rate (eGFR) will no [...] of individuals. Performed By: #### L [id number] ####[facility] ([facility])[address] [place] [address] Glucose [Mass/Vol] 155 mg/dL High 70-100 [facility] Comment on above: Performed By: #### L [id number] ####[facility] ([facility])[address] [place] [address] Potassium [Moles/Vol] 3.3 mmol/L Low 3.5-5.1 [facility] Comment on above: Performed By: #### L [id number] ####[facility] ([facility])[address] [place] [address] Sodium [Moles/Vol] 133 mmol/L Low 136-145 [facility] Comment on above: Performed By: #### L [id number] ####[facility] ([facility])[address] [place] [address] Urea nitrogen [Mass/Vol] 26 mg/dL High 7-25 [facility] Comment on above: Performed By: #### L [id number] ####[facility] ([facility])[address] [place] [address] UREA NITROGEN/CREATININE (MASS RATIO) IN SER/PLAS 23.9 Normal [facility] Comment on above: Performed By: #### L [id number] ####[facility] ([facility])[address] [place] [address] CBCon 10-07-2023 Erythrocyte distribution width (RBC) [Ratio] 13.0 % Normal 11.5-15.0 [facility] Comment on above: Performed By: #### L [id number] ####[facility] ([facility])[address] [place] [address] ERYTHROCYTE MEAN CORPUSCULAR HEMOGLOBIN CONCENTRATION (G/DL) BY AUTOMATED 34.0 g/dL Normal 32.0-35.0 [facility] Comment on above: Performed By: #### L [id number] ####[facility] ([facility])[address] [place] [address] Hematocrit (Bld) [Volume fraction] 28.2 % Low 39.0-55.0 [facility] Comment on above: Performed By: #### L [id number] ####[facility] ([facility])[address] [place] [address] Hemoglobin (Bld) [Mass/Vol] 9.6 g/dL Low 13.0-17.0 [facility] Comment on above: Performed By: #### L [id number] ####[facility] ([facility])[address] [place] [address] MCH (RBC) [Entitic mass] 30.2 pg Normal 27.0-33.0 [facility] Comment on above: Performed By: #### L [id number] ####[facility] ([facility])[address] [place] [address] MCV (RBC) [Entitic vol] 88.7 fL Normal 82.0-98.0 [facility] Comment on above: Performed By: #### L [id number] ####[facility] ([facility])[address] [place] [address] PLATELETS (10*3/UL) IN BLOOD AUTOMATED COUNT 145 10*3/uL Low 150-400 [facility] Comment on above: Performed By: #### L [id number] ####[facility] ([facility])[address] [place] [address] RBC (Bld) [#/Vol] 3.18 10*6/uL Low 4.20-5.70 [facility] Comment on above: Performed By: #### L [id number] ####[facility] ([facility])[address] [place] [address] WBC (Bld) [#/Vol] 16.79 10*3/uL High 4.00-10.60 [facility] Comment on above: Performed By: #### L [id number] ####[facility] ([facility])[address] [place] [address] CT ABDOMEN PELVIS W IV CONTR Donovan 10-07-2023 CT ABDOMEN PELVIS W IV CONTRAST Invalid Interpretation Code [facility] MAGNESIUMon 10-07-2023 Magnesium [Mass/Vol] 2.3 mg/dL Normal 1.9-2.7 [facility] Comment on above: Performed By: #### L [id number] ####[facility] ([facility])[address] [place] [address] PHOSPHORUSon 10-07-2023 Magnesium [Mass/Vol] 2.1 mg/dL Low 2.5-5.0 [facility] Comment on above: Performed By: #### L [id number] ####[facility] ([facility])[address] [place] [address] POCT GLUCOSE METER UNSOLICIT ED RESULTSon 10-07-2023 Glucose [Mass/Vol] 149 mg/dL High 70-105 [facility] Comment on above: Order Comment: Waive d Testing in the ED is performed under the ED CLIA certificate #[id number]. Result Comment: kbar to Performed By: #### L [id number] ####[facility] ([facility])[address] [place] [address] Glucose [Mass/Vol] 185 mg/dL High 70-105 [facility] Comment on above: Order Comment: Waive d Testing in the ED is performed under the ED CLIA certificate #[id number]. Result Comment: kbar to Performed By: #### L [id number] ####[facility] ([facility])[address] [place] [address] Glucose [Mass/Vol] 183 mg/dL High 70-105 [facility] Comment on above: Order Comment: Waive d Testing in the ED is performed under the ED CLIA certificate #[id number]. Result Comment: balta tti Performed By: #### L [id number] ####[facility] ([facility])[address] [place] [address] TROPONIN Ion 10-07-2023 Troponin I.cardiac [Mass/Vol] 3.05 ng/mL Critically high 0.00-0.04 [facility] Comment on above: Result Comment: M-NM EVIOUS CRITICAL RESULTPrevious result verified on 10/06/2023 1550 on specimen/case [id number] called with component Troponin I for procedure Troponin I with value 5.54 ng/mL. Performed By: #### L [id number] ####[facility] ([facility])[address] [place] [address] APTTon 10-06-2023 ACTIVATED PARTIAL THROMBOPLASTIN TIME IN PPP BY COAGULATION ASSAY 92.3 Seconds High 25.0-35.0 [facility] Comment on above: Order Comment: Check aPTT every 6 hours while on heparin infusion, or per protocol. Result Comment: Clin ical significance of the APTT is questionable in the presence of heparin. Performed By: #### L [id number] ####[facility] ([facility])[address] [place] [address] ACTIVATED PARTIAL THROMBOPLASTIN TIME IN PPP BY COAGULATION ASSAY 110.1 Seconds High 25.0-35.0 [facility] Comment on above: Order Comment: Check aPTT every 6 hours while on heparin infusion, or per protocol. Result Comment: Clin ical significance of the APTT is questionable in the presence of heparin. Performed By: #### L [id number] ####[facility] ([facility])[address] [place] [address] B-TYPE NATRIURETIC PEPTIDEon 10-06-2023 Natriuretic peptide B (Bld) [Mass/Vol] 1339 pg/mL High 0-100 [facility] Comment on above: Performed By: #### L [id number] ####[facility] ([facility])[address] [place] [address] BASIC METABOLIC PANELon 05-2 Anion gap [Moles/Vol] 14 mmol/L Normal 7-20 [facility] Comment on above: Performed By: #### L [id number] ####[facility] ([facility])[address] [place] [address] Calcium [Mass/Vol] 7.0 mg/dL Low 8.6-10.3 [facility] Comment on above: Performed By: #### L [id number] ####[facility] ([facility])[address] [place] [address] Chloride [Moles/Vol] 99 mmol/L Normal 98-107 [facility] Comment on above: Performed By: #### L [id number] ####[facility] ([facility])[address] [place] [address] CO2 [Moles/Vol] 23 mmol/L Normal 21-31 [facility] Comment on above: Performed By: #### L [id number] ####[facility] ([facility])[address] [place] [address] Creatinine [Mass/Vol] 1.15 mg/dL Normal 0.70-1.30 [facility] Comment on above: Performed By: #### L [id number] ####[facility] ([facility])[address] [place] [address] GLOMERULAR FILTRATION RATE ML/MIN/1.73 SQ M.PREDICTED 66.4 mL/min/1.73m*2 Normal >60.0 [facility] Comment on above: Result Comment: [facility]???s estimated glomerular filtration rate (eGFR) will no [...] of individuals. Performed By: #### L [id number] ####[facility] ([facility])[address] [place] [address] Glucose [Mass/Vol] 172 mg/dL High 70-100 [facility] Comment on above: Performed By: #### L [id number] ####[facility] ([facility])[address] [place] [address] Potassium [Moles/Vol] 3.9 mmol/L Normal 3.5-5.1 [facility] Comment on above: Performed By: #### L [id number] ####[facility] ([facility])[address] [place] [address] Sodium [Moles/Vol] 132 mmol/L Low 136-145 [facility] Comment on above: Performed By: #### L [id number] ####[facility] ([facility])[address] [place] [address] Urea nitrogen [Mass/Vol] 23 mg/dL Normal 7-25 [facility] Comment on above: Performed By: #### L [id number] ####[facility] ([facility])[address] [place] [address] UREA NITROGEN/CREATININE (MASS RATIO) IN SER/PLAS 20.0 Normal [facility] Comment on above: Performed By: #### L [id number] ####[facility] ([facility])[address] [place] [address] BLOOD CULTUREon 10-06-2023 Bacteria identified Cx Nom (Bld) No growth at 5 days Normal [facility] Comment on above: Order Comment: From a different site than #1. Performed By: #### L [id number] ####[facility] ([facility])[address] [place] [address] CBCon 10-06-2023 Erythrocyte distribution width (RBC) [Ratio] 12.7 % Normal 11.5-15.0 [facility] Comment on above: Performed By: #### L [id number] ####[facility] ([facility])[address] [place] [address] ERYTHROCYTE MEAN CORPUSCULAR HEMOGLOBIN CONCENTRATION (G/DL) BY AUTOMATED 34.8 g/dL Normal 32.0-35.0 [facility] Comment on above: Performed By: #### L [id number] ####[facility] ([facility])[address] [place] [address] Hematocrit (Bld) [Volume fraction] 26.4 % Low 39.0-55.0 [facility] Comment on above: Performed By: #### L [id number] ####[facility] ([facility])[address] [place] [address] Hemoglobin (Bld) [Mass/Vol] 9.2 g/dL Low 13.0-17.0 [facility] Comment on above: Performed By: #### L [id number] ####[facility] ([facility])[address] [place] [address] MCH (RBC) [Entitic mass] 30.4 pg Normal 27.0-33.0 [facility] Comment on above: Performed By: #### L [id number] ####[facility] ([facility])[address] [place], [place] [address] MCV (RBC) [Entitic vol] 87.1 fL Normal 82.0-98.0 [facility] Comment on above: Performed By: #### L [id number] ####[facility] ([facility])[address] [place] [address] PLATELETS (10*3/UL) IN BLOOD AUTOMATED COUNT 154 10*3/uL Normal 150-400 [facility] Comment on above: Performed By: #### L [id number] ####[facility] ([facility])[address] [place] [address] RBC (Bld) [#/Vol] 3.03 10*6/uL Low 4.20-5.70 [facility] Comment on above: Performed By: #### L [id number] ####[facility] ([facility])[address] [place] [address] WBC (Bld) [#/Vol] 20.14 10*3/uL High 4.00-10.60 [facility] Comment on above: Performed By: #### L [id number] ####[facility] ([facility])[address] [place] [address] COMPREHENSIVE METABOLIC PANE [facility] 10-06-2023 Albumin [Mass/Vol] 2.8 g/dL Low 3.5-5.7 [facility] Comment on above: Performed By: #### L [id number] ####[facility] ([facility])[address] [place] [address] ALP [Catalytic activity/Vol] 65 U/L Normal 34-104 [facility] Comment on above: Performed By: #### L [id number] ####[facility] ([facility])[address] [place] [address] ALT [Catalytic activity/Vol] 61 U/L High 7-52 [facility] Comment on above: Performed By: #### L [id number] ####[facility] ([facility])[address] [place] [address] Anion gap [Moles/Vol] 13 mmol/L Normal 7-20 [facility] Comment on above: Performed By: #### L [id number] ####[facility] ([facility])[address] [place] [address] AST [Catalytic activity/Vol] 69 U/L High 13-39 [facility] Comment on above: Performed By: #### L [id number] ####[facility] ([facility])[address] [place] [address] Bilirubin [Mass/Vol] 0.4 mg/dL Normal 0.3-1.0 [facility] Comment on above: Performed By: #### L [id number] ####[facility] ([facility])[address] [place] [address] Calcium [Mass/Vol] 7.0 mg/dL Low 8.6-10.3 [facility] Comment on above: Performed By: #### L [id number] ####[facility] ([facility])[address] [place] [address] Chloride [Moles/Vol] 102 mmol/L Normal 98-107 [facility] Comment on above: Performed By: #### L [id number] ####[facility] ([facility])[address] [place] [address] CO2 [Moles/Vol] 19 mmol/L Low 21-31 [facility] Comment on above: Performed By: #### L [id number] ####[facility] ([facility])[address] [place] [address] Creatinine [Mass/Vol] 1.39 mg/dL High 0.70-1.30 [facility] Comment on above: Performed By: #### L [id number] ####[facility] ([facility])[address] [place] [address] GLOMERULAR FILTRATION RATE ML/MIN/1.73 SQ M.PREDICTED 52.9 mL/min/1.73m*2 Low >60.0 [facility] Comment on above: Result Comment: [facility]???s estimated glomerular filtration rate (eGFR) will no [...] of individuals. Performed By: #### L [id number] ####[facility] ([facility])[address] [place] [address] Glucose [Mass/Vol] 140 mg/dL High 70-100 [facility] Comment on above: Performed By: #### L [id number] ####[facility] ([facility])[address] [place] [address] Potassium [Moles/Vol] 3.8 mmol/L Normal 3.5-5.1 [facility] Comment on above: Performed By: #### L [id number] ####[facility] ([facility])[address] [place] [address] Protein [Mass/Vol] 5.3 g/dL Low 6.0-8.3 [facility] Comment on above: Performed By: #### L [id number] ####[facility] ([facility])[address] [place] [address] Sodium [Moles/Vol] 130 mmol/L Low 136-145 [facility] Comment on above: Performed By: #### L [id number] ####[facility] ([facility])[address] [place] [address] Urea nitrogen [Mass/Vol] 24 mg/dL Normal 7-25 [facility] Comment on above: Performed By: #### L [id number] ####[facility] ([facility])[address] [place] [address] UREA NITROGEN/CREATININE (MASS RATIO) IN SER/PLAS 17.3 [facility] Comment on above: Performed By: #### L [id number] ####[facility] ([facility])[address] [place] [address] CONSULTon 10-06-2023 CONSULT [facility] MAGNESIUMon 10-06-2023 Magnesium [Mass/Vol] 2.3 mg/dL Normal 1.9-2.7 [facility] Comment on above: Performed By: #### L [id number] ####[facility] ([facility])[address] [place] [place] [address] PHOSPHORUSon 10-06-2023 Magnesium [Mass/Vol] 2.2 mg/dL Low 2.5-5.0 [facility] Comment on above: Performed By: #### L [id number] ####[facility] ([facility])[address] [place] [address] POCT GLUCOSE METER UNSOLICIT ED RESULTSon 10-06-2023 Glucose [Mass/Vol] 177 mg/dL High 70-105 [facility] Comment on above: Order Comment: Waive d Testing in the ED is performed under the ED CLIA certificate #[id number]. Result Comment: balta tti Performed By: #### L [id number] ####[facility] ([facility])[address] [place] [address] Glucose [Mass/Vol] 178 mg/dL High 70-105 [facility] Comment on above: Order Comment: Waive d Testing in the ED is performed under the ED CLIA certificate #[id number]. Result Comment: kbar to Performed By: #### L [id number] ####[facility] ([facility])[address] [place] [address] Glucose [Mass/Vol] 180 mg/dL High 70-105 [facility] Comment on above: Order Comment: Waive d Testing in the ED is performed under the ED CLIA certificate #[id number]. Result Comment: kbar to Performed By: #### L [id number] ####[facility] ([facility])[address] [place] [address] TROPONIN Ion 10-06-2023 Troponin I.cardiac [Mass/Vol] 3.48 ng/mL Critically high 0.00-0.04 [facility] Comment on above: Result Comment: M-NM EVIOUS CRITICAL RESULTPrevious result verified on 10/06/2023 1550 on specimen/case [id number] called with component Troponin I for procedure Troponin I with value 5.54 ng/mL. Performed By: #### L [id number] ####[facility] ([facility])[address] [place] [address] Troponin I.cardiac [Mass/Vol] 4.94 ng/mL Critically high 0.00-0.04 [facility] Comment on above: Result Comment: M-NM EVIOUS CRITICAL RESULTPrevious result verified on 10/06/2023 1550 on specimen/case [id number] called with component Troponin I for procedure Troponin I with value 5.54 ng/mL. Performed By: #### L [id number] ####[facility] ([facility])[address] [place] [address] Troponin I.cardiac [Mass/Vol] 5.54 ng/mL Critically high 0.00-0.04 [facility] Comment on above: Result Comment: M-NM EVIOUS CRITICAL RESULTPrevious result verified on 10/06/2023 0556 on specimen/case [id number] called with component Troponin I for procedure Troponin I with value 8.76 ng/mL. Performed By: #### L [id number] ####[facility] ([facility])[address] [place] [address] Troponin I.cardiac [Mass/Vol] 8.76 ng/mL Critically high 0.00-0.04 [facility] Comment on above: Result Comment: M-NM EVIOUS CRITICAL RESULTPrevious result verified on 10/06/2023 0015 on specimen/case [id number] called with component Troponin I for procedure Troponin I with value 7.99 ng/mL. Performed By: #### L [id number] ####[facility] ([facility])[address] [place] [address] XR ABDOMEN 1 VIEWon 10-06-19 24 XR ABDOMEN 1 VIEW Normal [facility] XR CHEST 1 VIEWon 10-06-2023 XR CHEST 1 VIEW Normal [facility] 30on 10-05-2023 30 Normal [facility] ANTI-XA (HEPARIN LEVEL)on HEPARIN UNFRACTIONATED (U/ML) IN PPP BY CHROMOGENIC METHOD 0.72 IU/mL High 0.3-0.7 [facility] Comment on above: Order Comment: Check anti-Xa level every 6 hours while on heparin infusion, or per protocol. Result Comment: [place] roxaban and Apixaban will interfere with the anti Xa assay used to monitor UFH and LMWH. Performed By: #### L [id number] ####[facility] ([facility])[address] [place] [address] APTTon 10-05-2023 ACTIVATED PARTIAL THROMBOPLASTIN TIME IN PPP BY COAGULATION ASSAY 39.6 Seconds High 25.0-35.0 [facility] Comment on above: Order Comment: Basel ine aPTT before initiating heparin infusion. Result Comment: Clin ical significance of the APTT is questionable in the presence of heparin. Performed By: #### L [id number] ####[facility] ([facility])[address] [place] [address] ACTIVATED PARTIAL THROMBOPLASTIN TIME IN PPP BY COAGULATION ASSAY 92.3 Seconds High 25.0-35.0 [facility] Comment on above: Order Comment: Check aPTT every 6 hours while on heparin infusion, or per protocol. Result Comment: Clin ical significance of the APTT is questionable in the presence of heparin. Performed By: #### L [id number] ####[facility] ([facility])[address] [place] [address] ARTERIAL BLOOD GAS WITH IONI ZED CALCIUMon 10-05-2023 Base excess Calc (Bld) [Moles/Vol] -15.08689 mmol/L Low -2.0-3.0 [facility] Comment on above: Performed By: #### L [id number] ####[facility] [id number] [place] [address] [place] CALCIUM IONIZED (MMOL/L) IN BLOOD 1.09 mmol/L Low 1.15-1.33 [facility] Comment on above: Performed By: #### L [id number] ####[facility] [id number] [place] [address] [place] CO2 (Bld) [Partial pressure] 27 mm[Hg] Low 35-48 [facility] Comment on above: Performed By: #### L [id number] ####[facility] [id number] [place] [address] [place] HCO3 (Bld) [Moles/Vol] 10.8 mmol/L Low 21.0-28.0 [facility] Comment on above: Performed By: #### L [id number] ####[facility] [id number] [place] [address] [place] Oxygen (Bld) [Partial pressure] 81 mm[Hg] Low 83-100 [facility] Comment on above: Performed By: #### L [id number] ####[facility] [id number] [place] [address] [facility] OXYGEN SATURATION (%) IN ARTERIAL BLOOD 99.3 % High 94.0-98.0 [facility] Comment on above: Performed By: #### L [id number] ####[facility] [id number] [place] [address] [place] pH (Bld) 7.21 [pH] Invalid Interpretation Code 7.35-7.45 [facility] Comment on above: Performed By: #### L [id number] ####[facility] [id number] [place] [address] [facility] SOURCE OF OXYGEN Room Air Normal [facility] Comment on above: Performed By: #### L [id number] ####[facility] [id number] [place] [address] [place] BILIRUBIN, DIRECTon 10-05-19 Magnesium [Mass/Vol] 0.1 mg/dL Normal 0-0.2 [facility] Comment on above: Performed By: #### L [id number] ####[facility] LAB (BEAKER)[address] [place] [address] Basophils/100 WBC Manual cnt (Bld)on 10-05-2023 Basophils/100 WBC (Bld) 0.0 % Low 0.2-2.0 [facility] CBCon 10-05-2023 Erythrocyte distribution width (RBC) [Ratio] 12.7 % Normal 11.5-15.0 [facility] Comment on above: Performed By: #### L [id number] ####[facility] (BEAKER)[address] [place] [address] ERYTHROCYTE MEAN CORPUSCULAR HEMOGLOBIN CONCENTRATION (G/DL) BY AUTOMATED 35.0 g/dL Normal 32.0-35.0 [facility] Comment on above: Performed By: #### L [id number] ####[facility] LAB (BEAKER)[address] [address] Hematocrit (Bld) [Volume fraction] 26.3 % Low 39.0-55.0 [facility] Comment on above: Performed By: #### L [id number] ####[facility] (BEAKER)[address] [address] Hemoglobin (Bld) [Mass/Vol] 9.2 g/dL Low 13.0-17.0 [facility] Comment on above: Performed By: #### L [id number] ####[facility] (BEAKER)[address] [address] MCH (RBC) [Entitic mass] 30.6 pg Normal 27.0-33.0 [facility] Comment on above: Performed By: #### L [id number] ####[facility] (BEAKER)[address] [address] MCV (RBC) [Entitic vol] 87.4 fL Normal 82.0-98.0 [facility] Comment on above: Performed By: #### L [id number] ####[facility] (BESATYA)[address] [address] PLATELETS (10*3/UL) IN BLOOD AUTOMATED COUNT 152 10*3/uL Normal 150-400 [facility] Comment on above: Performed By: #### L [id number] ####[facility] (BEAKER)[address] [address] RBC (Bld) [#/Vol] 3.01 10*6/uL Low 4.20-5.70 [facility] Comment on above: Performed By: #### L [id number] ####[facility] (BEAKER)[address] [address] WBC (Bld) [#/Vol] 20.29 10*3/uL High 4.00-10.60 [facility] Comment on above: Performed By: #### L [id number] ####[facility] ([facility] [place], [place] [address] Erythrocyte distribution width (RBC) [Ratio] 12.7 % Normal 11.5-15.0 [facility] Comment on above: Performed By: #### L [id number] ####[facility] ([facility])[address] [place] [address] ERYTHROCYTE MEAN CORPUSCULAR HEMOGLOBIN CONCENTRATION (G/DL) BY AUTOMATED 33.1 g/dL Normal 32.0-35.0 [facility] Comment on above: Performed By: #### L [id number] ####[facility] ([facility])[address] [place], [place] [address] Hematocrit (Bld) [Volume fraction] 27.2 % Low 39.0-55.0 [facility] Comment on above: Performed By: #### L [id number] ####[facility] ([facility])[address] [place] [address] Hemoglobin (Bld) [Mass/Vol] 9.0 g/dL Low 13.0-17.0 [facility] Comment on above: Performed By: #### L [id number] ####[facility] ([facility])[address] [place], [place] [address] MCH (RBC) [Entitic mass] 30.9 pg Normal 27.0-33.0 [facility] Comment on above: Performed By: #### L [id number] ####[facility] ([facility])[address] [place], [place] [address] MCV (RBC) [Entitic vol] 93.5 fL Normal 82.0-98.0 [facility] Comment on above: Performed By: #### L [id number] ####[facility] ([facility])[address] [place] [address] PLATELETS (10*3/UL) IN BLOOD AUTOMATED COUNT 170 10*3/uL Normal 150-400 [facility] Comment on above: Performed By: #### L [id number] ####[facility] ([facility])[address] [place] [address] RBC (Bld) [#/Vol] 2.91 10*6/uL Low 4.20-5.70 [facility] Comment on above: Performed By: #### L [id number] ####[facility] ([facility])[address] [place] [address] WBC (Bld) [#/Vol] 28.70 10*3/uL High 4.00-10.60 [facility] Comment on above: Performed By: #### L [id number] ####[facility] ([facility])[address] [place] [address] COMPREHENSIVE METABOLIC PANE Gerber 10-05-2023 Albumin [Mass/Vol] 2.8 g/dL Low 3.5-5.7 [facility] Comment on above: Performed By: #### L [id number] ####[facility] ([facility])[address] [place] [address] ALP [Catalytic activity/Vol] 59 U/L Normal 34-104 [facility] Comment on above: Performed By: #### L [id number] ####[facility] (BEAKER)[address] [place] [address] ALT [Catalytic activity/Vol] 64 U/L High 7-52 [facility] Comment on above: Performed By: #### L [id number] ####[facility] (BEAKER)[address] [place] [address] Anion gap [Moles/Vol] 13 mmol/L Normal 7-20 [facility] Comment on above: Performed By: #### L [id number] ####[facility] (BEAKER)[address] [place] [address] AST [Catalytic activity/Vol] 74 U/L High 13-39 [facility] Comment on above: Performed By: #### L [id number] ####[facility] ([facility])[address] [place] [address] Bilirubin [Mass/Vol] 0.3 mg/dL Normal 0.3-1.0 [facility] Comment on above: Performed By: #### L [id number] ####[facility] (BEAKER)[address] [place] [address] Calcium [Mass/Vol] 7.0 mg/dL Low 8.6-10.3 [facility] Comment on above: Performed By: #### L [id number] ####[facility] (BEAKER)[address] [place] [address] Chloride [Moles/Vol] 103 mmol/L Normal 98-107 [facility] Comment on above: Performed By: #### L [id number] ####[facility] (BEAKER)[address] [place] [address] CO2 [Moles/Vol] 18 mmol/L Low 21-31 [facility] Comment on above: Performed By: #### L [id number] ####[facility] ([facility] [place] [address] Creatinine [Mass/Vol] 1.56 mg/dL High 0.70-1.30 [facility] Comment on above: Performed By: #### L [id number] ####[facility] ([facility])[address] [place] [address] GLOMERULAR FILTRATION RATE ML/MIN/1.73 SQ M.PREDICTED 46.0 mL/min/1.73m*2 Low >60.0 [facility] Comment on above: Result Comment: [facility]???s estimated glomerular filtration rate (eGFR) will no [...] of individuals. Performed By: #### L [id number] ####[facility] ([facility])[address] [place] [address] Glucose [Mass/Vol] 205 mg/dL High 70-100 [facility] Comment on above: Performed By: #### L [id number] ####[facility] ([facility])[address] [place] [address] Potassium [Moles/Vol] 4.2 mmol/L Normal 3.5-5.1 [facility] Comment on above: Performed By: #### L [id number] ####[facility] ([facility])[address] [place] [address] Protein [Mass/Vol] 5.2 g/dL Low 6.0-8.3 [facility] Comment on above: Performed By: #### L [id number] ####[facility] ([facility])[address] [place] [address] Sodium [Moles/Vol] 130 mmol/L Low 136-145 [facility] Comment on above: Performed By: #### L [id number] ####[facility] ([facility])[address] [place] [address] Urea nitrogen [Mass/Vol] 25 mg/dL Normal 7-25 [facility] Comment on above: Performed By: #### L [id number] ####[facility] ([facility])[address] [place] [address] UREA NITROGEN/CREATININE (MASS RATIO) IN SER/PLAS 16.0 Normal [facility] Comment on above: Performed By: #### L [id number] ####[facility] ([facility])[address] [place] [address] Albumin [Mass/Vol] 3.0 g/dL Low 3.5-5.7 [facility] Comment on above: Performed By: #### L [id number] ####[facility] ([facility])[address] [place] [address] ALP [Catalytic activity/Vol] 66 U/L Normal 34-104 [facility] Comment on above: Performed By: #### L [id number] ####[facility] ([facility])[address] [place] [address] ALT [Catalytic activity/Vol] 72 U/L High 7-52 [facility] Comment on above: Performed By: #### L [id number] ####[facility] ([facility])[address] [place] [address] Anion gap [Moles/Vol] 18 mmol/L Normal 7-20 [facility] Comment on above: Performed By: #### L [id number] ####[facility] ([facility])[address] [place] [address] AST [Catalytic activity/Vol] 113 U/L High 13-39 [facility] Comment on above: Performed By: #### L [id number] ####[facility] ([facility])[address] [place] [address] Bilirubin [Mass/Vol] 0.4 mg/dL Normal 0.3-1.0 [facility] Comment on above: Performed By: #### L [id number] ####[facility] ([facility])[address] [place] [address] Calcium [Mass/Vol] 6.9 mg/dL Low 8.6-10.3 [facility] Comment on above: Performed By: #### L [id number] ####[facility] ([facility])[address] [place] [address] Chloride [Moles/Vol] 103 mmol/L Normal 98-107 [facility] Comment on above: Performed By: #### L [id number] ####[facility] ([facility])[address] [place] [address] CO2 [Moles/Vol] 11 mmol/L Invalid Interpretation Code 21-31 [facility] Comment on above: Performed By: #### L [id number] ####[facility] ([facility])[address] [place] [address] Creatinine [Mass/Vol] 1.84 mg/dL High 0.70-1.30 [facility] Comment on above: Performed By: #### L [id number] ####[facility] ([facility])[address] [place] [address] GLOMERULAR FILTRATION RATE ML/MIN/1.73 SQ M.PREDICTED 37.8 mL/min/1.73m*2 Low >60.0 [facility] Comment on above: Result Comment: [facility]???s estimated glomerular filtration rate (eGFR) will no [...] of individuals. Performed By: #### L [id number] ####[facility] ([facility])[address] [place] [address] Glucose [Mass/Vol] 470 mg/dL Critically high 70-100 [facility] Comment on above: Performed By: #### L [id number] ####[facility] ([facility])[address] [place] [address] Potassium [Moles/Vol] 4.4 mmol/L Normal 3.5-5.1 [facility] Comment on above: Performed By: #### L [id number] ####[facility] ([facility])[address] [place] [address] Protein [Mass/Vol] 5.2 g/dL Low 6.0-8.3 [facility] Comment on above: Performed By: #### L [id number] ####[facility] ([facility])[address] [place] [address] Sodium [Moles/Vol] 128 mmol/L Low 136-145 [facility] Comment on above: Performed By: #### L [id number] ####[facility] (BEAKER)[address] [place] [address] Urea nitrogen [Mass/Vol] 23 mg/dL Normal 7-25 [facility] Comment on above: Performed By: #### L [id number] ####[facility] (BEAKER)[address] [place] [address] UREA NITROGEN/CREATININE (MASS RATIO) IN SER/PLAS 12.5 Normal [facility] Comment on above: Performed By: #### L [id number] ####[facility] (BEAKER)[address] [place] [address] CORTISOLon 10-05-2023 CORTISOL (UG/DL) IN SER/PLAS 25.3 ug/dL High 0-9 [facility] Comment on above: Performed By: #### L [id number] ####[facility] (BEAKER)[address] [place] [address] Eosinophils/100 WBC Manual c nt (Bld)on 10-05-2023 Eosinophils/100 WBC (Bld) 0.0 % Low 0.9-7.0 [facility] Erythrocyte distribution wid th Auto (RBC) [Ratio]on 10-05-2023 Erythrocyte distribution width (RBC) [Ratio] 12.8 % 11.0-15.0 [facility] Estimated glomerular filtrat ion rate (GFR) non- Americanon 10-05-2023 GFR/1.73 sq M.predicted among non-blacks MDRD (S/P/Bld) [Vol rate/Area] 32 mL/min/{1.73_m2} Low >=60 [facility] Globulin Calc (S) [Mass/Vol] on 10-05-2023 Globulin (S) [Mass/Vol] 3.3 g/dL [facility] HPon 10-05-2023 HP Normal [facility] Hematocrit Auto (Bld) [Volum e fraction]on 10-05-2023 Hematocrit (Bld) [Volume fraction] 28.8 % Low 42.0-54.0 [facility] Hemoglobin [Mass/volume] in Bloodon 10-05-2023 Hemoglobin (Bld) [Mass/Vol] 9.0 g/dL Low 14.0-18.0 [facility] LACTIC ACID WITH 4 HOUR REFL EXon 10-05-2023 LACTATE (MMOL/L) IN SER/PLAS 1.6 mmol/L Normal 0.5-2.2 [facility] Comment on above: Performed By: #### L [id number] ####[facility] ([facility])[address] [place] [address] LACTATE (MMOL/L) IN SER/PLAS 4.0 mmol/L Critically high 0.5-2.2 [facility] Comment on above: Result Comment: Prev ious result verified on 10/05/2023 1412 on specimen/case [id number] called with component Lactate blood venous for procedure Lactic acid, venous, whole blood with value 7.7 mmol/L. Performed By: #### L [id number] ####[facility] ([facility])[address] [place] [address] LACTATE (MMOL/L) IN SER/PLAS 7.7 mmol/L Critically high 0.5-2.2 [facility] Comment on above: Performed By: #### L [id number] ####[facility] ([facility])[address] [place] [address] Lab Reportson 10-05-2023 Lab Reports [id number] Normal [facility] Laboratory - Chemistry and C hemistry - challengeon 10-05-2023 HCO3 (Bld) [Moles/Vol] 9.1 mmol/L Low 22.0-26.0 [facility] Natriuretic peptide B (Bld) [Mass/Vol] 42411.0 pg/mL High <=1800.0 [facility] Comment on above: RESULTS CALLED TO [Zulema MURRAY/RN]@BY Kaitlin Merchant [id number] Albumin [Mass/Vol] 2.2 g/dL Low 3.4-5.0 [facility] ALP [Catalytic activity/Vol] 58 U/L 46-116 [facility] ALT [Catalytic activity/Vol] U/L Low 16-63 [facility] AST [Catalytic activity/Vol] 18 U/L 15-37 [facility] Bilirubin [Mass/Vol] 0.4 mg/dL 0.2-1.0 [facility] Calcium [Mass/Vol] 7.9 mg/dL Low 8.5-10.1 [facility] Chloride [Moles/Vol] 101 mmol/L 98-107 [facility] CO2 [Moles/Vol] 17.1 mmol/L Low 21.0-32.0 [facility] Creatinine [Mass/Vol] 2.02 mg/dL High 0.70-1.30 [facility] GFR/1.73 sq M.predicted MDRD (S/P/Bld) [Vol rate/Area] 39 mL/min/{1.73_m2} Low >=60 [facility] Glucose [Mass/Vol] 290 mg/dL High 74-106 [facility] Lactate [Moles/Vol] 7.3 mmol/L High 0.4-2.0 [facility] Comment on above: RESULTS CALLED TO STEVE GROSS RN @BY Beatriz Rothman at 0527 Magnesium [Mass/Vol] 1.4 mg/dL Low 1.8-2.4 [facility] Potassium [Moles/Vol] 3.9 mmol/L 3.5-5.1 [facility] Protein [Mass/Vol] 5.5 g/dL Low 6.4-8.2 [facility] Sodium [Moles/Vol] 131 mmol/L Low 136-145 [facility] Urea nitrogen [Mass/Vol] 19.0 mg/dL High 7.0-18.0 [facility] Urea nitrogen/Creatinine [Mass ratio] 9.4 mg/mg [facility] Laboratory - Hematology and Cell countson 10-05-2023 Band form neutrophils/100 WBC (Bld) 9.0 % High 0-5 [facility] Lymphocytes/100 WBC (Bld) 4.0 % Low 20.5-60.0 [facility] Monocytes/100 WBC (Bld) 3.0 % 1.7-12.0 [facility] Leukocytes [#/volume] correc seth for nucleated erythrocytes in Blood by Automated counon 10-05-2023 WBC corrected for nucl RBC Auto (Bld) [#/Vol] 25.1 10 3/uL High 4.0-11.0 [facility] MAGNESIUMon 10-05-2023 Magnesium [Mass/Vol] 1.3 mg/dL Low 1.9-2.7 [facility] Comment on above: Performed By: #### L [id number] ####[facility] (BEAKER)[address] [place] [address] MCH Auto (RBC) [Entitic mass ]on 10-05-2023 MCH (RBC) [Entitic mass] 30.6 pg 25.9-34.0 [facility] MCHC Auto (RBC) [Mass/Vol]on 10-05-2023 MCHC (RBC) [Mass/Vol] 31.3 g/dL 29.9-35.2 [facility] MCV Auto (RBC) [Entitic vol] on 10-05-2023 MCV (RBC) [Entitic vol] 98.0 fL High 80.0-94.0 [facility] Myelocytes/100 WBC Manual cn t (Bld)on 10-05-2023 Myelocytes/100 WBC (Bld) 2.0 % [facility] No Panel Informationon 10-04 Lonnie Test Positive POSITIVE [facility] Arterial Blood Base Excess -21.5 mmol/L Low <2.0-2.0 [facility] Arterial Blood Oxygen Saturation 97.7 % [facility] Arterial Blood Partial Pressure CO2 33.0 mm[Hg] Low 35.0-45.0 [facility] Arterial Blood Partial Pressure O2 106.0 mm[Hg] High 80.0-100.0 [facility] Arterial Blood pH 7.047 Low 7.350-7.450 [facility] Comment on above: RESULTS CALLED TO [Efra LANDA/RN]@BY Kaitlin Merchant [id number] Blood Gas Liter Flow 3 [facility] Blood Gas Sample Site ART. LINE [facility] Oxygen Delivery Device NASAL CANNULA [facility] Venous Blood Partial Pressure CO2 35.5 mm[Hg] Low 40.0-52.0 [facility] Venous Blood pH 7.044 Low 7.330-7.430 [facility] Absolute Basophils (Manual) 0.00 10 3/uL 0.00-0.10 [facility] Band Neutrophils # (Manual) 2.3 10 3/uL High 0.0-0.3 [facility] C-Reactive Protein, Quantitative 20.88 mg/dL High <=0.50 [facility] Eosinophils # (Manual) 0.00 10 3/uL 0.00-0.70 [facility] Lymphocytes # (Manual) 1.00 10 3/uL Low 1.20-3.80 [facility] Monocytes # (Manual) 0.75 10 3/uL 0.30-0.80 [facility] Myelocytes # (Manual) 0.50 [facility] Reactive Lymphocytes 0.00 [facility] Segmented Neutrophils # (Manual) 20.83 10 3/uL High 1.4-6.5 [facility] Troponin I High Sensitivity 993.4 pg/mL High 4.0-76.1 [facility] Comment on above: RESULTS CALLED TO [Zulema MURRAY/YOCASTA]@BY Kaitlin Merchant [id number] POINTS HAVE BEEN ESTABLISHED BASED ON THE [...] 10-05-2023 Magnesium [Mass/Vol] 3.8 mg/dL Normal 2.5-5.0 [facility] Comment on above: Performed By: #### L [id number] ####[facility] (BEAKER)[address] [place] [address] POCT GLUCOSE METER UNSOLICIT ED RESULTSon 10-05-2023 Glucose [Mass/Vol] 204 mg/dL High 70-105 [facility] Comment on above: Order Comment: Waive d Testing in the ED is performed under the ED CLIA certificate #[id number]. Result Comment: [email or web address] Performed By: #### L [id number] ####[facility] ([employer])[address] [place] [address] Glucose [Mass/Vol] 378 mg/dL High 70-105 [facility] Comment on above: Order Comment: Waive d Testing in the ED is performed under the ED CLIA certificate #[id number]. Result Comment: [email or web address] Performed By: #### L [id number] ####[facility] ([email or web address])[address] [place] [address] PROTIME-INRon 10-05-2023 INR IN PPP BY COAGULATION ASSAY 2.15 High 0.90-1.10 [facility] Comment on above: Result Comment: ACCC P [...] CHEST 1995;[id number]. Performed By: #### L [id number] ####[facility] ([email or web address])[address] [place] [address] PROTHROMBIN TIME (PT) IN PPP BY COAGULATION ASSAY 23.6 Seconds High 12.3-14.8 [facility] Comment on above: Performed By: #### L [id number] ####[facility] ([email or web address])[address] [place] [address] Platelet mean volume Auto (B ld) [Entitic vol]on 10-05-2023 Platelet mean volume (Bld) [Entitic vol] 10.1 fL 9.5-13.5 [facility] Platelets Auto (Bld) [#/Vol] on 10-05-2023 Platelets (Bld) [#/Vol] 175 10 3/uL 150-450 [facility] RBC Auto (Bld) [#/Vol]on RBC (Bld) [#/Vol] 2.94 10 6/uL Low 4.70-6.10 [facility] Segmented neutrophils/100 WB C Manual cnt (Bld)on 10-05-2023 Segmented neutrophils/100 WBC (Bld) 83.0 % [facility] Serum or plasma albumin/glob ulin mass ratioon 10-05-2023 Albumin/Globulin [Mass ratio] 0.7 {ratio} [facility] Serum or plasma anion gap de terminationon 10-05-2023 Anion gap [Moles/Vol] 16.8 mmol/L Fi [facility]aOn [facility] TROPONIN Ion 10-05-2023 Troponin I.cardiac [Mass/Vol] 7.99 ng/mL Critically high 0.00-0.04 [facility] Comment on above: Result Comment: M-NM EVIOUS CRITICAL RESULTPrevious result verified on 10/05/2023 1815 on specimen/case [id number] called with component Troponin I for procedure Troponin I with value 4.24 ng/mL. Performed By: #### L [id number] ####[facility] (BEAKER)[address] [place] [address] Troponin I.cardiac [Mass/Vol] 4.24 ng/mL Critically high 0.00-0.04 [facility] Comment on above: Result Comment: M-TR OPONIN INITIAL CRITICAL HIGH; RESPUN AND RETESTED Performed By: #### L [id number] ####[facility] (BEAKER)[address] [place] [address] TSH3 REFLEX TO FT4on 024 THYROTROPIN (MIU/L) IN SER/PLAS BY DETECTION LIMIT <= 0.05 MIU/L 1.36 mIU/L Normal 0.34-5.60 [facility] Comment on above: Performed By: #### L [id number] ####[facility] [place] [address] URINALYSISon 10-05-2023 BILIRUBIN, TOTAL PRESENCE IN URINE Negative Normal Negative [facility] Comment on above: Performed By: #### L [id number] ####[facility] ([facility])[address] [place] [address] Clarity (U) Cloudy Abnormal Clear [facility] Comment on above: Performed By: #### L [id number] ####[facility] ([facility])[address] [place] [address] Color (U) Yellow Normal Yellow [facility] Comment on above: Performed By: #### L [id number] ####[facility] ([facility])[address] [place] [address] Glucose (U) [Mass/Vol] mg/dL Abnormal Negative [facility] Comment on above: Performed By: #### L [id number] ####[facility] ([facility])[address] [place] [address] HEMOGLOBIN PRESENCE IN URINE Large Abnormal Negative [facility] Comment on above: Performed By: #### L [id number] ####[facility] ([facility])[address] [place] [address] Ketones Ql (U) Negative Normal Negative [facility] Comment on above: Performed By: #### L [id number] ####[facility] ([facility])[address] [place] [address] LEUKOCYTE ESTERASE PRESENCE IN URINE BY TEST STRIP Small Abnormal Negative [facility] Comment on above: Performed By: #### L [id number] ####[facility] ([facility] [place] [address] NITRITE PRESENCE IN URINE Negative Normal Negative [facility] Comment on above: Performed By: #### L [id number] ####[facility] ([facility])[address] [place] [address] pH (U) 5.0 [pH] Normal 5.0-8.0 [facility] Comment on above: Performed By: #### L [id number] ####[facility] ([facility])[address] [place] [address] Protein (U) [Mass/Vol] 30 mg/dL Abnormal Negative [facility] above: Performed By: #### L [id number] ####[facility] ([facility] [place] [address] Specific gravity (U) [Rel density] 1.018 Normal 1.015-1.020 [facility] Comment on above: Performed By: #### L [id number] ####[facility] [facility] [place] [address] URINALYSIS MICROSCOPICon CASTS IN URINE Present Abnormal None Seen [facility] Comment on above: Performed By: #### L [id number] ####[facility] ([facility])[address] [place] [address] CRYSTALS IN URINE Normal [facility] Comment on above: Performed By: #### L [id number] ####[facility] ([facility])[address] [place] [address] GRANULAR CASTS (#/LPF) IN URINE 11 LPF High <1 [facility] Comment on above: Performed By: #### L [id number] ####[facility] ([facility])[address] [place] [address] MUCUS (#/HPF) IN URINE SEDIMENT Few Normal None Seen, Occasional, Few [facility] Comment on above: Performed By: #### L [id number] ####[facility] ([facility])[address] [place] [address] RBC (#/HPF) IN URINE SEDIMENT 3-5 Abnormal None Seen [facility] Comment on above: Performed By: #### L [id number] ####[facility] ([facility])[address] [place] [address] SQUAMOUS EPITHELIAL CELLS (#/HPF) IN URINE SEDIMENT None Seen Normal None Seen, Occasional [facility] Comment on above: Performed By: #### L [id number] ####[facility] ([facility])[address] [place] [address] WBC (LEUKOCYTE) (#/HPF) IN URINE SEDIMENT 11-20 Abnormal None Seen [facility] Comment on above: Performed By: #### L [id number] ####[facility] ([facility])[address] [place] [address] YEAST, BUDDING (#/HPF) IN URINE Occasional Abnormal None Seen [facility] Comment on above: Performed By: #### L [id number] ####[facility] ([facility])[address] [place] [address] Basophils Auto (Bld) [#/Vol] on 10-04-2023 Basophils (Bld) [#/Vol] 0.0 10 3/uL 0.0-0.1 [facility] Basophils/100 WBC Auto (Bld) on 10-04-2023 Basophils/100 WBC (Bld) 0.1 % Low 0.2-2.0 [facility] Eosinophils/100 WBC Auto (Bl d)on 10-04-2023 Eosinophils/100 WBC (Bld) 0.0 % Low 0.9-7.0 [facility] Erythrocyte distribution wid th Auto (RBC) [Ratio]on 10-04-2023 Erythrocyte distribution width (RBC) [Ratio] 12.2 % 11.0-15.0 [facility] Estimated glomerular filtrat ion rate (GFR) non- Americanon 10-04-2023 GFR/1.73 sq M.predicted among non-blacks MDRD (S/P/Bld) [Vol rate/Area] mL/min/{1.73_m2} >=60 [facility] Hematocrit Auto (Bld) [Volum e fraction]on 10-04-2023 Hematocrit (Bld) [Volume fraction] 32.9 % Low 42.0-54.0 [facility] Hemoglobin [Mass/volume] in Bloodon 10-04-2023 Hemoglobin (Bld) [Mass/Vol] 10.7 g/dL Low 14.0-18.0 [facility] Laboratory - Chemistry and C hemistry - challengeon 10-04-2023 Lactate [Moles/Vol] 4.4 mmol/L High 0.4-2.0 [facility] Comment on above: RESULTS CALLED TO JULIANO VALDEZ RN @BY Beatriz Rothman at 2037 Bilirubin Ql (U) Negative NEGATIVE [facility] Glucose (U) [Mass/Vol] 100 mg/dL Abnormal NEGATIVE Fi [facility] Ketones Ql (U) Negative NEGATIVE [facility] pH (U) 5.5 [pH] 5.0-9.0 [facility] Specific gravity (U) [Rel density] <=1.005 Abnormal 1.005-1.025 [facility] Urobilinogen Qn (U) 0.2 {Wilson'U}/dL 0.2-1.0 [facility] Calcium [Mass/Vol] 9.1 mg/dL 8.5-10.1 [facility] Chloride [Moles/Vol] 96 mmol/L Low 98-107 [facility] CO2 [Moles/Vol] 23.3 mmol/L 21.0-32.0 [facility] Creatinine [Mass/Vol] 1.14 mg/dL 0.70-1.30 [facility] GFR/1.73 sq M.predicted MDRD (S/P/Bld) [Vol rate/Area] mL/min/{1.73_m2} >=60 [facility] Glucose [Mass/Vol] 255 mg/dL High 74-106 [facility] Natriuretic peptide B (Bld) [Mass/Vol] 1213.0 pg/mL <=1800.0 [facility] Potassium [Moles/Vol] 4.4 mmol/L 3.5-5.1 [facility] Sodium [Moles/Vol] 129 mmol/L Low 136-145 [facility] Urea nitrogen [Mass/Vol] 14.0 mg/dL 7.0-18.0 [facility] Urea nitrogen/Creatinine [Mass ratio] 12.3 mg/mg [facility] Laboratory - Hematology and Cell countson 10-04-2023 Immature granulocytes/100 WBC (Bld) 1.3 % High 0.0-0.5 [facility] Laboratory - Microbiology an d Antimicrobial susceptibilityOrdered By: Allen Grey on 10-04-2023 Bacteria identified Cx Nom (U) [facility] Laboratory - Microbiology an d Antimicrobial susceptibilityon 10-04-2023 SARS-CoV-2 (COVID-19) RNA RAYMON+probe Ql (Unsp spec) Negative NEGATIVE [facility] Comment on above: This test has not [...] inform ationon 10-04-2023 Appearance (U) CLEAR CLEAR [facility] Color (U) YELLOW YELLOW [facility] Laboratory - Urinalysison Leukocyte esterase Test strip Ql (U) Negative NEGATIVE [facility] Mucus Ql (Urine sed) NONE SEEN NONE SEEN [facility] Nitrite Ql (U) Negative NEGATIVE [facility] Protein Ql (U) 30 mg/dL Abnormal NEG/TRACE [facility] Leukocytes [#/volume] correc seth for nucleated erythrocytes in Blood by Automated counon 10-04-2023 WBC corrected for nucl RBC Auto (Bld) [#/Vol] 16.6 10 3/uL High 4.0-11.0 [facility] Lymphocytes Auto (Bld) [#/Vo l]on 10-04-2023 Lymphocytes (Bld) [#/Vol] 0.9 10 3/uL Low 1.2-3.8 [facility] Lymphocytes/100 WBC Auto (Bl d)on 10-04-2023 Lymphocytes/100 WBC (Bld) 5.2 % Low 20.5-60.0 [facility] MCH Auto (RBC) [Entitic mass ]on 10-04-2023 MCH (RBC) [Entitic mass] 30.3 pg 25.9-34.0 [facility] MCHC Auto (RBC) [Mass/Vol]on 10-04-2023 MCHC (RBC) [Mass/Vol] 32.5 g/dL 29.9-35.2 [facility] MCV Auto (RBC) [Entitic vol] on 10-04-2023 MCV (RBC) [Entitic vol] 93.2 fL 80.0-94.0 [facility] Monocytes Auto (Bld) [#/Vol] on 10-04-2023 Monocytes (Bld) [#/Vol] 1.4 10 3/uL High 0.3-0.8 [facility] Monocytes/100 WBC Auto (Bld) on 10-04-2023 Monocytes/100 WBC (Bld) 8.3 % 1.7-12.0 [facility] Neutrophils Auto (Bld) [#/Vo l]on 10-04-2023 Neutrophils (Bld) [#/Vol] 14.1 10 3/uL High 1.4-6.5 [facility] Neutrophils/100 WBC Auto (Bl d)on 10-04-2023 Neutrophils/100 WBC (Bld) 85.1 % High 43.0-75.0 [facility] No Panel Informationon 10-03 Urine Bacteria MODERATE #/HPF Abnormal NONE SEEN [facility] Urine Culture Reflexed YES [facility] Urine Occult Blood SMALL Abnormal NEGATIVE [facility] Urine Other Casts NONE SEEN #/LPF NONE SEEN [facility] Urine Other Crystals None Seen #/HPF None Seen [facility] Urine RBC 5-10 #/HPF Abnormal 0-2 [facility] Urine Squamous Epithelial Cells MODERATE #/LPF Abnormal NONE/RARE [facility] Urine WBC 5-10 #/HPF Abnormal NONE SEEN [facility] Bedside Influenza Type A Antigen Negative [facility] Comment on above: Negative for Flu A p rotein antigen. Infection due to Flu Acannot be ruled out. Flu A antigen in the sample may bebelow the detection limit of the test. Bedside Influenza Type B Antigen Negative [facility] Comment on above: Negative for Flu B p rotein antigen. Infection due to Flu Bcannot be ruled out. Flu B antigen in the sample may bebelow the detection limit of the test. Eosinophils # (Auto) 0.0 10 3/uL 0.0-0.7 [facility] Immature Granulocyte # (Auto) 0.21 10 3/uL High 0.00-0.03 [facility] Troponin I High Sensitivity 9.3 pg/mL 4.0-76.1 [facility] Comment on above: CUT-OFF POINTS HAVE BEEN [...] Allen Grey on 10-04-2023 Blood Culture 2 [facility] Blood Culture 1 [facility] Platelet mean volume Auto (B ld) [Entitic vol]on 10-04-2023 Platelet mean volume (Bld) [Entitic vol] 9.5 fL 9.5-13.5 [facility] Platelets Auto (Bld) [#/Vol] on 10-04-2023 Platelets (Bld) [#/Vol] 159 10 3/uL 150-450 [facility] RBC Auto (Bld) [#/Vol]on RBC (Bld) [#/Vol] 3.53 10 6/uL Low 4.70-6.10 [facility] Serum or plasma anion gap de terminationon 10-04-2023 Anion gap [Moles/Vol] 14.1 mmol/L [facility] Serum procalcitonin measurem enton 10-04-2023 Procalcitonin [Mass/Vol] 0.23 ng/mL 0.00-0.50 [facility] Clinical Supporton Clinical Support Normal [facility] Follow-Upon 09-27-2023 Follow-Up Normal [facility] Follow-Upon 09-20-2023 Follow-Up Normal [facility] 36on 09-19-2023 36 Normal [facility] Telephoneon 09-19-2023 Telephone Normal [facility] DSon 09-12-2023 DS Normal [facility] NURSNOTEon 09-12-2023 NURSNOTE Normal [facility] 30on 09-11-2023 30 Normal [facility] 30 Normal [facility] BASIC METABOLIC PANELon 08-14 Anion gap [Moles/Vol] 12 mmol/L Normal 7-20 [facility] Comment on above: Performed By: #### L [id number] ####[facility] ([facility])[address] [place] [address] Calcium [Mass/Vol] 8.4 mg/dL Low 8.6-10.3 [facility] Comment on above: Performed By: #### L [id number] ####[facility] ([facility]ER)[address] [place] [address] Chloride [Moles/Vol] 102 mmol/L Normal 98-107 [facility] Comment on above: Performed By: #### L [id number] ####[facility] ([facility]ER)[address] [place] [address] CO2 [Moles/Vol] 24 mmol/L Normal 21-31 [facility] Comment on above: Performed By: #### L [id number] ####[facility] ([facility]ER)[address] [place] [address] Creatinine [Mass/Vol] 0.94 mg/dL Normal 0.70-1.30 [facility] Comment on above: Performed By: #### L [id number] ####[facility] ([facility])[address] [place] [address] GLOMERULAR FILTRATION RATE ML/MIN/1.73 SQ M.PREDICTED 84.5 mL/min/1.73m*2 Normal >60.0 [facility] Comment on above: Result Comment: [facility]???s estimated glomerular filtration rate (eGFR) will no [...] of individuals. Performed By: #### L [id number] ####[facility] ([facility])[address] [place] [address] Glucose [Mass/Vol] 266 mg/dL High 70-100 [facility] Comment on above: Performed By: #### L [id number] ####[facility] ([facility])[address] [place] [address] Potassium [Moles/Vol] 4.9 mmol/L Normal 3.5-5.1 [facility] Comment on above: Performed By: #### L [id number] ####[facility] ([facility])[address] [place] [address] Sodium [Moles/Vol] 133 mmol/L Low 136-145 [facility] Comment on above: Performed By: #### L [id number] ####[facility] ([facility])[address] [place] [address] Urea nitrogen [Mass/Vol] 17 mg/dL Normal 7-25 [facility] Comment on above: Performed By: #### L [id number] ####[facility] ([facility])[address] [place] [address] UREA NITROGEN/CREATININE (MASS RATIO) IN SER/PLAS 18.1 Normal [facility] Comment on above: Performed By: #### L [id number] ####[facility] ([facility])[address] [place] [address] CBCon 09-11-2023 Erythrocyte distribution width (RBC) [Ratio] 12.2 % Normal 11.5-15.0 [facility] Comment on above: Performed By: #### L [id number] ####[facility] ([facility])[address] [place] [address] ERYTHROCYTE MEAN CORPUSCULAR HEMOGLOBIN CONCENTRATION (G/DL) BY AUTOMATED 33.4 g/dL Normal 32.0-35.0 [facility] Comment on above: Performed By: #### L [id number] ####[facility] ([facility])[address] [place] [address] Hematocrit (Bld) [Volume fraction] 30.2 % Low 39.0-55.0 [facility] Comment on above: Performed By: #### L [id number] ####[facility] ([facility])[address] [place] [address] Hemoglobin (Bld) [Mass/Vol] 10.1 g/dL Low 13.0-17.0 [facility] Comment on above: Performed By: #### L [id number] ####[facility] ([facility])[address] [place] [address] MCH (RBC) [Entitic mass] 30.8 pg Normal 27.0-33.0 [facility] Comment on above: Performed By: #### L [id number] ####[facility] ([facility])[address] [place] [address] MCV (RBC) [Entitic vol] 92.1 fL Normal 82.0-98.0 [facility] Comment on above: Performed By: #### L [id number] ####[facility] ([facility])[address] [place] [address] PLATELETS (10*3/UL) IN BLOOD AUTOMATED COUNT 159 10*3/uL Normal 150-400 [facility] Comment on above: Performed By: #### L [id number] ####[facility] (BE[facility]ER)[address] [place] [address] RBC (Bld) [#/Vol] 3.28 10*6/uL Low 4.20-5.70 [facility] Comment on above: Performed By: #### L [id number] ####[facility] ([facility]ER)[address] [place] [address] WBC (Bld) [#/Vol] 8.22 10*3/uL Normal 4.00-10.60 [facility] Comment on above: Performed By: #### L [id number] ####[facility] ([facility])[address] [place] [address] [id number] 09-10-2023 [id number] Normal [facility] ANESon 09-10-2023 ANES Normal [facility] ANES Normal [facility] HISTOLOGY - TISSUE EXAMon LAB AP CASE REPORT Normal [facility] Comment on above: Order Comment: Pre-o p diagnosis:Severe claudication (CMS/HCC) [I73.9]Encounter for pre-operative examination [Z01.818]Critical limb ischemia of right lower extremity with rest pain (CMS/HCC) [I70.221] Result Comment: Surg ical Pathology Case: [id number] Provider: Epi Shrestha MD Collected: 09/10/2023 1749Ordering Location: [facility] Main Operating Room Received: 09/10/2023 1848Pathologist: BRANDEE Seniorpecimen: PLAQUE- RIGHT COMMON FEMORAL ARTERY Performed By: #### L [id number] ####[facility] ([facility])[address] [place] [address] LAB AP CLINICAL INFORMATION Normal [facility] Comment on above: Order Comment: Pre-o p diagnosis:Severe claudication (CMS/HCC) [I73.9]Encounter for pre-operative examination [Z01.818]Critical limb ischemia of right lower extremity with rest pain (CMS/HCC) [I70.221] Result Comment: Post -Op [id number] - Severe claudication (CMS/HCC) [ICD-10-CM]Z01.818 - Encounter for pre-operative examination [ICD-10-CM]I70.221 - Critical limb ischemia of right lower extremity with rest pain (CMS/HCC) [ICD-10-CM] Performed By: #### L [id number] ####[facility] ([facility])[address] [place] [address] LAB AP GROSS DESCRIPTION [facility] Comment on above: Order Comment: Pre-o [...] cm. Sectioning reveals lynn-yellow, calcified cut surfaces. Dressmaker Or Tailor sections are submitted in 1 cassette, following decalcification.Qing Alejandro, [employer] Technician Nicole Farias, [employer] Technician Performed By: #### L [id number] ####[facility] ([facility])[address] [place] [address] LAB AP MICROSCOPIC DESCRIPTION Microscopic examination performed. [facility] Comment on above: Order Comment: Pre-o p diagnosis:Severe claudication (CMS/HCC) [I73.9]Encounter for pre-operative examination [Z01.818]Critical limb ischemia of right lower extremity with rest pain (CMS/HCC) [I70.221] Performed By: #### L [id number] ####[facility] ([facility])[address] [place] [address] LAB AP REPORT FINAL DIAGNOSIS NARRATIVE [facility] Comment on above: Order Comment: Pre-o p diagnosis:Severe claudication (CMS/HCC) [I73.9]Encounter for pre-operative examination [Z01.818]Critical limb ischemia of right lower extremity with rest pain (CMS/HCC) [I70.221] Result Comment: Righ t common femoral artery, endarterectomy:Atheromatous plaque with calcification. Performed By: #### L [id number] ####[facility] (BEAKER)[address] [place] [address] HPon 09-10-2023 HP Normal [facility] MRSA/MSSA DNA NASALon 2023 MRSA DNA Negative Normal Negative [facility] Comment on above: Order Comment: Testi ng [...] preclude nasal colonization. Performed By: #### L [id number] ####[facility] ([facility]ER)[address] [place] [address] MSSA DNA Negative Normal Negative [facility] Comment on above: Order Comment: Testi ng [...] preclude nasal colonization. Performed By: #### L [id number] ####[facility] ([facility]ER)[address] [place] [address] OPNOTEon 09-10-2023 OPNOTE Normal [facility] POCT GLUCOSE METER UNSOLICIT ED RESULTSon 09-10-2023 Glucose [Mass/Vol] 177 mg/dL High 70-105 [facility] Comment on above: Order Comment: Waive d Testing in the ED is performed under the ED CLIA certificate #[id number]. Result Comment: aepp ink Performed By: #### L [id number] ####[facility] (BE[facility]ER)[address] [place] [address] TYPE AND SCREENon 09-10-2023 AB SCREEN Negative Normal [facility] Comment on above: Performed By: #### L [id number] ####[facility], ABO group Nom (Bld) A Normal [facility] Comment on above: Performed By: #### L [id number] ####[facility], RH TYPE IN BLOOD Positive Normal [facility] Comment on above: Performed By: #### L [id number] ####[facility], [id number] 09-03-2023 [id number] Normal [facility] Activated partial thrombopla stin time (aPTT) in platelet poor plasma by coagulation aon 09-03-2023 aPTT Coag (PPP) [Time] 28.1 s 22.3-36.2 [facility] Basophils Auto (Bld) [#/Vol] on 09-03-2023 Basophils (Bld) [#/Vol] 0.0 10 3/uL 0.0-0.1 [facility] Basophils/100 WBC Auto (Bld) on 09-03-2023 Basophils/100 WBC (Bld) 0.1 % Low 0.2-2.0 [facility] Eosinophils/100 WBC Auto (Bl d)on 09-03-2023 Eosinophils/100 WBC (Bld) 0.9 % 0.9-7.0 [facility] Erythrocyte distribution wid th Auto (RBC) [Ratio]on 09-03-2023 Erythrocyte distribution width (RBC) [Ratio] 12.4 % 11.0-15.0 [facility] Estimated glomerular filtrat ion rate (GFR) non- Americanon 09-03-2023 GFR/1.73 sq M.predicted among non-blacks MDRD (S/P/Bld) [Vol rate/Area] 41 mL/min/{1.73_m2} Low >=60 [facility] Hematocrit Auto (Bld) [Volum e fraction]on 09-03-2023 Hematocrit (Bld) [Volume fraction] 32.4 % Low 42.0-54.0 [facility] Hemoglobin [Mass/volume] in Bloodon 09-03-2023 Hemoglobin (Bld) [Mass/Vol] 10.8 g/dL Low 14.0-18.0 [facility] INR in Platelet poor plasma by Coagulation assayon 09-03-2023 INR Coag (PPP) [Relative time] 1.06 {INR} [facility] Comment on above: DESIRED INR:2.0-3.0 CONDITIONS NOT LISTED BELOW2.5-3.5 FOR PROSTHETIC HEART VALVE REPLACEMENT2.5-3.5 RECURRENT THROMBOSIS Laboratory - Chemistry and C hemistry - challengeon 09-03-2023 Calcium [Mass/Vol] 9.0 mg/dL 8.5-10.1 [facility] Chloride [Moles/Vol] 103 mmol/L 98-107 [facility] CO2 [Moles/Vol] 25.5 mmol/L 21.0-32.0 [facility] Creatinine [Mass/Vol] 1.63 mg/dL High 0.70-1.30 [facility] GFR/1.73 sq M.predicted MDRD (S/P/Bld) [Vol rate/Area] 50 mL/min/{1.73_m2} Low >=60 [facility] Glucose [Mass/Vol] 228 mg/dL High 74-106 [facility] Potassium [Moles/Vol] 4.8 mmol/L 3.5-5.1 [facility] Sodium [Moles/Vol] 139 mmol/L 136-145 [facility] Urea nitrogen [Mass/Vol] 20.0 mg/dL High 7.0-18.0 [facility] Urea nitrogen/Creatinine [Mass ratio] 12.3 mg/mg [facility] Laboratory - Hematology and Cell countson 09-03-2023 Immature granulocytes/100 WBC (Bld) 0.3 % 0.0-0.5 [facility] Leukocytes [#/volume] correc seth for nucleated erythrocytes in Blood by Automated counon 09-03-2023 WBC corrected for nucl RBC Auto (Bld) [#/Vol] 7.5 10 3/uL 4.0-11.0 [facility] Lymphocytes Auto (Bld) [#/Vo l]on 09-03-2023 Lymphocytes (Bld) [#/Vol] 2.3 10 3/uL 1.2-3.8 [facility] Lymphocytes/100 WBC Auto (Bl d)on 09-03-2023 Lymphocytes/100 WBC (Bld) 31.1 % 20.5-60.0 [facility] MCH Auto (RBC) [Entitic mass ]on 09-03-2023 MCH (RBC) [Entitic mass] 30.9 pg 25.9-34.0 [facility] MCHC Auto (RBC) [Mass/Vol]on 09-03-2023 MCHC (RBC) [Mass/Vol] 33.3 g/dL 29.9-35.2 [facility] MCV Auto (RBC) [Entitic vol] on 09-03-2023 MCV (RBC) [Entitic vol] 92.6 fL 80.0-94.0 [facility] Monocytes Auto (Bld) [#/Vol] on 09-03-2023 Monocytes (Bld) [#/Vol] 0.9 10 3/uL High 0.3-0.8 [facility] Monocytes/100 WBC Auto (Bld) on 09-03-2023 Monocytes/100 WBC (Bld) 11.3 % 1.7-12.0 [facility] Neutrophils Auto (Bld) [#/Vo l]on 09-03-2023 Neutrophils (Bld) [#/Vol] 4.2 10 3/uL 1.4-6.5 [facility] Neutrophils/100 WBC Auto (Bl d)on 09-03-2023 Neutrophils/100 WBC (Bld) 56.3 % 43.0-75.0 [facility] No Panel Informationon 09-02 Eosinophils # (Auto) 0.1 10 3/uL 0.0-0.7 [facility] Immature Granulocyte # (Auto) 0.02 10 3/uL 0.00-0.03 [facility] Platelet mean volume Auto (B ld) [Entitic vol]on 09-03-2023 Platelet mean volume (Bld) [Entitic vol] 9.3 fL Low 9.5-13.5 [facility] Platelets Auto (Bld) [#/Vol] on 09-03-2023 Platelets (Bld) [#/Vol] 186 10 3/uL 150-450 [facility] Prothrombin time (PT)on 08-13 PT Coag (PPP) [Time] 11.2 s 9.0-11.6 [facility] RBC Auto (Bld) [#/Vol]on RBC (Bld) [#/Vol] 3.50 10 6/uL Low 4.70-6.10 [facility] Serum or plasma anion gap de terminationon 09-03-2023 Anion gap [Moles/Vol] 15.3 mmol/L [facility] Orders Onlyon 08-22-2023 Orders Only Normal [facility] ANESon 08-21-2023 ANES Normal [facility] HPon 08-21-2023 HP H&P reviewed. The patient was examined and there are no changes to the H&P. Normal [facility] NURSNOTEon 08-21-2023 NURSNOTE RN educated pt on d/ c instructions. RN encouraged pt to voice any questions or concerns. Pt verbalizes no questions or concerns at this time. Normal [facility] Basophils Auto (Bld) [#/Vol] on 08-18-2023 Basophils (Bld) [#/Vol] 0.0 10 3/uL 0.0-0.1 [facility] Basophils/100 WBC Auto (Bld) on 08-18-2023 Basophils/100 WBC (Bld) 0.1 % 0.2-2.0 [facility] Cholesterol in LDL Calc [Mas s/Vol]on 08-18-2023 Cholesterol in LDL [Mass/Vol] 31.6 mg/dL [facility] Comment on above: <100 mg/dl [id number] 0-129 mg/dl NEAR OR ABOVE [id number] mg/dl BORDERLINE [id number] mg/dl HIGH>190 mg/dl VERY HIGH Cholesterol in VLDL Calc [Ma ss/Vol]on 08-18-2023 Cholesterol in VLDL [Mass/Vol] 9.4 mg/dL [facility] Eosinophils/100 WBC Auto (Bl d)on 08-18-2023 Eosinophils/100 WBC (Bld) 0.8 % 0.9-7.0 [facility] Erythrocyte distribution wid th Auto (RBC) [Ratio]on 08-18-2023 Erythrocyte distribution width (RBC) [Ratio] 12.2 % 11.0-15.0 [facility] Estimated glomerular filtrat ion rate (GFR) non- Americanon 08-18-2023 GFR/1.73 sq M.predicted among non-blacks MDRD (S/P/Bld) [Vol rate/Area] 57 mL/min/{1.73_m2} >=60 [facility] Globulin Calc (S) [Mass/Vol] on 08-18-2023 Globulin (S) [Mass/Vol] 3.5 g/dL [facility] Hematocrit Auto (Bld) [Volum e fraction]on 08-18-2023 Hematocrit (Bld) [Volume fraction] 35.8 % 42.0-54.0 [facility] Hemoglobin [Mass/volume] in Bloodon 08-18-2023 Hemoglobin (Bld) [Mass/Vol] 11.9 g/dL 14.0-18.0 [facility] Laboratory - Chemistry and C hemistry - challengeon 08-18-2023 Albumin [Mass/Vol] 3.4 g/dL 3.4-5.0 [facility] ALP [Catalytic activity/Vol] 70 U/L 46-116 [facility] ALT [Catalytic activity/Vol] 17 U/L 16-63 [facility] AST [Catalytic activity/Vol] 12 U/L 15-37 [facility] Bilirubin [Mass/Vol] 0.3 mg/dL 0.2-1.0 [facility] Calcium [Mass/Vol] 9.0 mg/dL 8.5-10.1 [facility] Chloride [Moles/Vol] 105 mmol/L 98-107 [facility] Cholesterol [Mass/Vol] 82 mg/dL <=200 [facility] Cholesterol in HDL [Mass/Vol] 41 mg/dL 40-60 [facility] Comment on above: > or =60 mg/dl - LOW CARDIOVASCULAR RISK<40 mg/dl - HIGH CARDIOVASCULAR RISK CO2 [Moles/Vol] 26.5 mmol/L 21.0-32.0 [facility] Creatinine [Mass/Vol] 1.24 mg/dL 0.70-1.30 [facility] GFR/1.73 sq M.predicted MDRD (S/P/Bld) [Vol rate/Area] mL/min/{1.73_m2} >=60 [facility] Glucose [Mass/Vol] 172 mg/dL 74-106 [facility] Potassium [Moles/Vol] 5.1 mmol/L 3.5-5.1 [facility] Protein [Mass/Vol] 6.9 g/dL 6.4-8.2 [facility] Sodium [Moles/Vol] 139 mmol/L 136-145 [facility] Triglyceride [Mass/Vol] 47 mg/dL <=150 [facility] Urea nitrogen [Mass/Vol] 19.0 mg/dL 7.0-18.0 [facility] Urea nitrogen/Creatinine [Mass ratio] 15.3 mg/mg [facility] Laboratory - Hematology and Cell countson 08-18-2023 Immature granulocytes/100 WBC (Bld) 0.1 % 0.0-0.5 [facility] Leukocytes [#/volume] correc seth for nucleated erythrocytes in Blood by Automated counon 08-18-2023 WBC corrected for nucl RBC Auto (Bld) [#/Vol] 10.1 10 3/uL 4.0-11.0 [facility] Lymphocytes Auto (Bld) [#/Vo l]on 08-18-2023 Lymphocytes (Bld) [#/Vol] 2.5 10 3/uL 1.2-3.8 [facility] Lymphocytes/100 WBC Auto (Bl d)on 08-18-2023 Lymphocytes/100 WBC (Bld) 24.3 % 20.5-60.0 [facility] MCH Auto (RBC) [Entitic mass ]on 08-18-2023 MCH (RBC) [Entitic mass] 30.8 pg 25.9-34.0 [facility] MCHC Auto (RBC) [Mass/Vol]on 08-18-2023 MCHC (RBC) [Mass/Vol] 33.2 g/dL 29.9-35.2 [facility] MCV Auto (RBC) [Entitic vol] on 08-18-2023 MCV (RBC) [Entitic vol] 92.7 fL 80.0-94.0 [facility] Monocytes Auto (Bld) [#/Vol] on 08-18-2023 Monocytes (Bld) [#/Vol] 0.8 10 3/uL 0.3-0.8 [facility] Monocytes/100 WBC Auto (Bld) on 08-18-2023 Monocytes/100 WBC (Bld) 8.2 % 1.7-12.0 [facility] Neutrophils Auto (Bld) [#/Vo l]on 08-18-2023 Neutrophils (Bld) [#/Vol] 6.7 10 3/uL 1.4-6.5 [facility] Neutrophils/100 WBC Auto (Bl d)on 08-18-2023 Neutrophils/100 WBC (Bld) 66.5 % 43.0-75.0 [facility] No Panel Informationon 08-17 Eosinophils # (Auto) 0.1 10 3/uL 0.0-0.7 [facility] Immature Granulocyte # (Auto) 0.01 10 3/uL 0.00-0.03 [facility] Platelet mean volume Auto (B ld) [Entitic vol]on 08-18-2023 Platelet mean volume (Bld) [Entitic vol] 9.2 fL 9.5-13.5 [facility] Platelets Auto (Bld) [#/Vol] on 08-18-2023 Platelets (Bld) [#/Vol] 186 10 3/uL 150-450 [facility] RBC Auto (Bld) [#/Vol]on RBC (Bld) [#/Vol] 3.86 10 6/uL 4.70-6.10 [facility] Serum or plasma albumin/glob ulin mass ratioon 08-18-2023 Albumin/Globulin [Mass ratio] 1.0 {ratio} [facility] Serum or plasma anion gap de terminationon 08-18-2023 Anion gap [Moles/Vol] 12.6 mmol/L Fi [facility] Serum or plasma total choles terol/high density lipoprotein (HDL) cholesterol mass kendall 08-18-2023 Cholesterol.total/Chol esterol in HDL [Mass ratio] 2.0 {ratio} [facility] Comment on above: 3.3 - 4.4 LOW RISK4. 4 - 7.1 AVERAGE RISK7.1 - 11.0 MODERATE RISK>11.0 HIGH RISK HPon 08-17-2023 HP Normal [facility] Ambulatory Visit Summaryon 0 06-25-2023 Ambulatory Visit [...] DIAZ, Cristo Frances Where: [facility] Marimar Normal [facility] Patient Educationon 06-25-19 24 Patient Education Urology [...] provider. Document Revised: 04/05/2020 Document Reviewed: 04/05/2020 [employer] Patient Education ? 2022 Loaded Pocket. [facility] [facility] Urology Office/Clinic Noteon 06-25-2023 Urology Office/Clinic Note [...] to 16-30 Fr). [2] 6. 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 Had aortic valve replacement. Elevated risk for periop complications in the future. [3] Follow-up With When Contact Information Cristo RIVERA MD, URL [facility] [address], [place] [address] [phone] Additional Instructions: has f/u scheduled 11/19/23 Patient Education Testicular Self-Exam Opal Null, personally scribed for Dr. Rivera on 06/25/2023 10:02:39. . Documentation recorded by the scribeOpal, accurately reflects the services(s) I performed and decisions made by me. Authenticated by Dr. Rivera on 06/25/2023 10:05:22. Probl (more content not included)... Normal [facility] Comment on above: Result Comment: Elec tronically Signed By: Cristo RIVERA MD\.br\Date and Time Signed: 06/25/23 10:05 EST\.br\Electronically Co-Signed By: Opal Kessler\.br\Date and Time Co-Signed: 06/25/23 10:03 EST Calcium [Mass/volume] in Ser um or PlasmaOrdered By: Blas Ospina on 07-11-2022 Calcium [Mass/Vol] 9.2 mg/dL 8.2-10.2 [facility] Carbon dioxide, total [Moles /volume] in Serum or PlasmaOrdered By: Blas Ospina on 07-11-2022 CO2 [Moles/Vol] 22.4 mmol/L 22.0-30.0 [facility] Chloride [Moles/volume] in S quinten or PlasmaOrdered By: Blas Ospina on 07-11-2022 Chloride [Moles/Vol] 102 mmol/L 95-114 [facility] Creatinine and Glomerular fi ltration rate.predicted panel (S/P/Bld)Ordered By: Blas Ospina on 07-11-2022 Creatinine [Mass/Vol] 0.97 mg/dL 0.64-1.27 [facility] Estimated glomerular filtrat ion rate (GFR) non- AmericanOrdered By: Blas Ospina on 07-11-2022 GFR/1.73 sq M.predicted among non-blacks MDRD (S/P/Bld) [Vol rate/Area] > 60 mL/Min [facility] Glucose [Mass/volume] in Ser um or PlasmaOrdered By: Blas Ospina on 07-11-2022 Glucose [Mass/Vol] 197 mg/dL 70-100 [facility] Comment on above: ADA recommended refe rence rangeRandom Glucose Reference Range is dependent on time and content of last meal. Glucose of more than 200 mg/dL in a nonstressed, ambulatory subject supports the diagnosis of Diabetes Mellitus. No Panel InformationOrdered By: Blas Ospina on 07-11-2022 Estimated GFR () > 60 mL/Min [facility] Comment on above: GFR estimated refere nce range: According to KDOQI guidelines, <60 ml/min/1.73m2 is sufficient to diagnose a patient with chronic kidney disease. Pharmacy Creatinine Clearance (Chem N/A [facility] Potassium [Moles/volume] in Serum or PlasmaOrdered By: Blas Ospina on 07-11-2022 Potassium [Moles/Vol] See comment 3.5-5.1 [facility] Comment on above: Specimen hemolyzed, redraw requested Serum or plasma anion gap de terminationOrdered By: Blas Ospina on 07-11-2022 Anion gap [Moles/Vol] TNP [facility] Comment on above: Test not performed Sodium [Moles/volume] in Ser um or PlasmaOrdered By: Blas Ospina on 07-11-2022 Sodium [Moles/Vol] 131 mmol/L 136-146 [facility] Urea nitrogen [Mass/volume] in Serum or PlasmaOrdered By: Blas Ospina on 07-11-2022 Urea nitrogen [Mass/Vol] 20 mg/dL 02-03 [facility] XR hip RT min 2V(w/wo pelvis )*on 07-11-2022 XR hip RT min 2V(w/wo pelvis)* [facility] [employer] Other XR hip RT min 2V(w/wo pelvis)* [facility] [employer] Other XR hip RT min 2V(w/wo pelvis)* [address] [facility] [employer] Other XR hip RT min 2V(w/wo pelvis)* [place] [address] [employer] Other XR hip RT min 2V(w/wo pelvis)* XRay Report [employer] Other XR hip RT min 2V(w/wo pelvis)* Signed [employer] Other XR hip RT min 2V(w/wo pelvis)* Patient: Marilu Dan MR#: [id number] [employer] Other XR hip RT min 2V(w/wo pelvis)* 019 [employer] Other XR hip RT min 2V(w/wo pelvis)* : 1950 Acct:[id number] [employer] Other XR hip RT min 2V(w/wo pelvis)* Age/Sex: 72 / M ADM Date: 07/11/22 [employer] Other XR hip RT min 2V(w/wo pelvis)* Loc: Room: Type: [facility] [employer] Other XR hip RT min 2V(w/wo pelvis)* Attending Dr: Mary Beth Pitts MD [employer] [facility] XR hip RT min 2V(w/wo pelvis)* Copies to: Mary Beth Pitts MD [employer] Other XR hip RT min 2V(w/wo pelvis)* Ordering Provider: Mary Beth Pitts MD [employer] Other XR hip RT min 2V(w/wo pelvis)* Date of Service: 07/11/22 [employer] Other XR hip RT min 2V(w/wo pelvis)* XR/XR hip RT min 2V(w/wo pelvis)*: M25.551 [employer] Other XR hip RT min 2V(w/wo pelvis)* RIGHT HIP - 2 views: [employer] Other XR hip RT min 2V(w/wo pelvis)* CLINICAL HISTORY: Chronic right hip pain for one year. [employer] Other XR hip RT min 2V(w/wo pelvis)* COMPARISON: None [employer] Other XR hip RT min 2V(w/wo pelvis)* FINDINGS: Mild degenerative changes of the right hip without acute bony process. Additional [employer] Other XR hip RT min 2V(w/wo pelvis)* degenerative changes are seen involving the SI joints and visualized lower lumbar spine. Vascular [employer] Other XR hip RT min 2V(w/wo pelvis)* calcifications. [employer] Other XR hip RT min 2V(w/wo pelvis)* XR/XR hip RT min 2V(w/wo pelvis)* [employer] Other XR hip RT min 2V(w/wo pelvis)* IMPRESSION: [employer] Other XR hip RT min 2V(w/wo pelvis)* MILD DEGENERATIVE CHANGES OF THE RIGHT HIP WITHOUT ACUTE BONY PROCESS.. [employer] Other XR hip RT min 2V(w/wo pelvis)* Impression dictated by: Griffin Thibodeaux Jr., DBrookOBrook07/11/2022 11:33 AM [employer] Other XR hip RT min 2V(w/wo pelvis)* Dictation Location: [place] [address] [employer] Other XR hip RT min 2V(w/wo pelvis)* Transcribed By: ABIMBOLA 07/11/22 [facility] [employer] Other XR hip RT min 2V(w/wo pelvis)* Dictated By: Griffin Thibodeaux Jr, DO 07/11/22 [facility] [employer] Other XR hip RT min 2V(w/wo pelvis)* Signed By: [employer] Other XR hip RT min 2V(w/wo pelvis)* 07/11/22 [facility] [employer] Other CULTURE URINEon 04-29-2022 CULTURE URINE Culture Observations : NO GROWTH. Normal [facility] Comment on above: Performed By: #### S EDR #### [facility] [address] [place] [address] Dr. Julius Greer Basophils Auto (Bld) [#/Vol] Ordered By: Neno Moreira on 03-19-2022 Basophils (Bld) [#/Vol] 0.0 10*3/uL 0.0-0.2 [facility] Basophils/100 WBC Auto (Bld) Ordered By: Neno Moreira on 03-19-2022 Basophils/100 WBC (Bld) 0.2 % . [facility] CULTURE BLOODon 03-19-2022 Microscopic examination of blood, [...] S F Trimethoprim/Sulfamethox azole <=20 S F [facility] Comment on above: Performed By: #### S EDR #### [facility] [address] [place] [address] Dr. Julius Greer Microscopic examination of blood, [...] S F Trimethoprim/Sulfamethox azole <=20 S F [facility] Comment on above: Performed By: #### B [id number] #### [facility] [address] [place] [address] Dr. Julius Greer CULTURE URINEon 03-19-2022 CULTURE [...] azole <=20 S F Normal [facility] Comment on above: Performed By: #### S EDR #### [facility] [address] [place] [address] Dr. Julius Greer Creatinine and Glomerular fi ltration rate.predicted panel (S/P/Bld)Ordered By: Neno Moreira on 03-19-2022 Creatinine [Mass/Vol] 0.75 mg/dL 0.64-1.27 [facility] Eosinophils Auto (Bld) [#/Vo l]Ordered By: Neno Moreira on 03-19-2022 Eosinophils (Bld) [#/Vol] 0.0 10*3/uL 0.0-0.45 [facility] Eosinophils/100 WBC Auto (Bl d)Ordered By: Neno Moreira on 03-19-2022 Eosinophils/100 WBC (Bld) 1.0 % . [facility] Erythrocyte distribution wid th Auto (RBC) [Ratio]Ordered By: Neno Moreira on 03-19-2022 Erythrocyte distribution width (RBC) [Ratio] 12.8 % 12.0-14.8 [facility] Estimated glomerular filtrat ion rate (GFR) non- AmericanOrdered By: Neno Moreira on 03-19-2022 GFR/1.73 sq M.predicted among non-blacks MDRD (S/P/Bld) [Vol rate/Area] > 60 mL/Min [facility] Glucose Glucometer (BldC) [M ass/Vol]Ordered By: Neno Moreira on 03-19-2022 Glucose [Mass/Vol] 295 mg/dL [facility] Comment on above: Random Glucose Refer ence Range is dependent on time and content of last meal. Glucose of more than 200 mg/dL in a nonstressed, ambulatory subject supports the diagnosis of Diabetes Mellitus. Hematocrit Auto (Bld) [Volum e fraction]Ordered By: Neno Moreira on 03-19-2022 Hematocrit (Bld) [Volume fraction] 35.5 % 38.8-50.0 [facility] Hemoglobin [Mass/volume] in BloodOrdered By: Neno Moreira on 03-19-2022 Hemoglobin (Bld) [Mass/Vol] 12.0 g/dL 13.0-17.0 [facility] Laboratory - Hematology and Cell countsOrdered By: Neno Moreira on 03-19-2022 Nucleated RBC/100 WBC (Bld) [Ratio] 0.1 % 0-0.5 [facility] Leukocytes [#/volume] in Blo od by Automated countOrdered By: Neno Moreira on 03-19-2022 WBC (Bld) [#/Vol] 4.9 10*3/uL 4.5-11.0 [facility] Lymphocytes Auto (Bld) [#/Vo l]Ordered By: Neno Moreira on 03-19-2022 Lymphocytes (Bld) [#/Vol] 1.0 10*3/uL 1.00-4.8 [facility] Lymphocytes/100 WBC Auto (Bl d)Ordered By: Neno Moreira on 03-19-2022 Lymphocytes/100 WBC (Bld) 20.4 % . [facility] MCH Auto (RBC) [Entitic mass ]Ordered By: Neno Moreira on 03-19-2022 MCH (RBC) [Entitic mass] 29.9 pg 27.5-35.2 [facility] MCHC Auto (RBC) [Mass/Vol]Or dered By: Neno Moreira on 03-19-2022 MCHC (RBC) [Mass/Vol] 33.9 g/dL 32.5-35.6 [facility] MCV Auto (RBC) [Entitic vol] Ordered By: Neno Moreira on 03-19-2022 MCV (RBC) [Entitic vol] 88.3 fL 83.5-101 [facility] Monocytes Auto (Bld) [#/Vol] Ordered By: Obsarabjitdarobin Daromar on 03-19-2022 Monocytes (Bld) [#/Vol] 0.6 10*3/uL 0.0-0.8 [facility] Monocytes/100 WBC Auto (Bld) Ordered By: Obsarabjitdarobin Daromar on 03-19-2022 Monocytes/100 WBC (Bld) 12.2 % . [facility] Neutrophils Auto (Bld) [#/Vo l]Ordered By: Obaydarobin Daromar on 03-19-2022 Neutrophils (Bld) [#/Vol] 3.3 10*3/uL 1.8-7.7 [facility] Neutrophils/100 WBC Auto (Bl d)Ordered By: Obsarabjitdah Daromar on 03-19-2022 Neutrophils/100 WBC (Bld) 66.2 % . [facility] No Panel InformationOrdered By: Obpaolo Coronadoomar on 03-19-2022 Estimated GFR () > 60 mL/Min [facility] Comment on above: GFR estimated refere nce range: According to KDOQI guidelines, <60 ml/min/1.73m2 is sufficient to diagnose a patient with chronic kidney disease. Pharmacy Creatinine Clearance (Chem 85.68 [facility] Platelet mean volume Auto (B ld) [Entitic vol]Ordered By: Obsarabjitdarobin Coronadoomar on 03-19-2022 Platelet mean volume (Bld) [Entitic vol] 8.3 fL 6.6-10.1 [facility] Platelets Auto (Bld) [#/Vol] Ordered By: Obsarabjitdarobin Daromar on 03-19-2022 Platelets (Bld) [#/Vol] 134 10*3/uL 150-450 [facility] RBC Auto (Bld) [#/Vol]Ordere d By: Obaydah Daromar on 03-19-2022 RBC (Bld) [#/Vol] 4.02 10*6/uL 3.90-5.60 [facility] Serum or plasma anion gap de terminationOrdered By: Neno Moreira on 03-19-2022 Anion gap [Moles/Vol] 9.6 mmol/L 6.0-15.0 [facility] Serum or plasma calcium ruma urement (mass/volume)Ordered By: Neno Moreira on 03-19-2022 Calcium [Mass/Vol] 8.2 mg/dL 8.2-10.2 [facility] Serum or plasma chloride gonzalez surement (moles/volume)Ordered By: Neno Moreira on 03-19-2022 Chloride [Moles/Vol] 104 mmol/L 95-114 [facility] Serum or plasma glucose ruma urement (mass/volume)Ordered By: Neno Moreira on 03-19-2022 Glucose [Mass/Vol] 203 mg/dL 70-100 [facility] Comment on above: ADA recommended refe rence rangeRandom Glucose Reference Range is dependent on time and content of last meal. Glucose of more than 200 mg/dL in a nonstressed, ambulatory subject supports the diagnosis of Diabetes Mellitus. Serum or plasma potassium me asurement (moles/volume)Ordered By: Neno Moreira on 03-19-2022 Potassium [Moles/Vol] 3.7 mmol/L 3.5-5.1 [facility] Serum or plasma sodium measu rement (moles/volume)Ordered By: Neno Moreira on 03-19-2022 Sodium [Moles/Vol] 137 mmol/L 136-146 [facility] Serum or plasma total carbon dioxide measurement (moles/volume)Ordered By: Neno Moreira on 03-19-2022 CO2 [Moles/Vol] 27.1 mmol/L 22.0-30.0 [facility] Serum or plasma urea nitroge n measurement (mass/volume)Ordered By: Neno Moreira on 03-19-2022 Urea nitrogen [Mass/Vol] 11 mg/dL 9-23 [facility] Troponin I.cardiac [Mass/vol ume] in Serum or Plasma by High sensitivity methodOrdered By: Neno Moreira on 03-19-2022 Troponin I.cardiac High sensitivity method [Mass/Vol] 1882 pg/mL 0-20 [facility] Comment on above: Results calledat 070 8 on 03/19/22 Urine culture routineOrdered By: Paulina Alexander on 03-19-2022 Bacteria identified Cx Nom (U) 2 Days [facility] Activated partial thrombopla stin time (aPTT) in platelet poor plasma by coagulation aOrdered By: Paulina Alexander on 03-18-2022 aPTT Coag (PPP) [Time] 26.2 s 25.1-36.5 [facility] Laboratory - CoagulationOrde red By: Paulina Alexander on 03-18-2022 PT Coag (PPP) [Time] 14.0 s 9.0-12.9 [facility] Platelet adequacy [Presence] in Blood by Light microscopyOrdered By: Paulina Alexander on 03-18-2022 Platelets LM Ql (Bld) Decreased Normal [facility] Platelet morphology finding [Identifier] in BloodOrdered By: Paulina Alexander on 03-18-2022 Platelet morphology finding Nom (Bld) Normal Normal [facility] Platelet poor plasma interna tional normalized ratio (INR) by coagulation assay (relatOrdered By: Paulina Alexander on 03-18-2022 INR Coag (PPP) [Relative time] 1.2 {INR} [facility] Comment on above: INR Therapeutic Rang e [...] 03-18-2022 RBC morphology finding Nom (Bld) Normal [facility] Automated erythrocytes count in urine sediment (number/area)Ordered By: Paulina Alexander on 03-17-2022 RBC Auto (Urine sed) [#/Area] 20-49 [HPF] 0-4 [facility] Automated leukocytes count i n urine sediment (number/area)Ordered By: Paulina Alexander on 03-17-2022 WBC Auto (Urine sed) [#/Area] Innumerable [HPF] 0-4 [facility] Automated urine hyaline cast s count (number/volume)Ordered By: Paulina Alexander on 03-17-2022 Hyaline casts Auto (U) [#/Vol] 0-1 [LPF] 0-1 [facility] Bilirubin Test strip Ql (U)O rdered By: Paulina Alexander on 03-17-2022 Bilirubin Ql (U) Negative Negative [facility] Body fluid albumin measureme nt (mass/volume)Ordered By: Paulina Alexander on 03-17-2022 Albumin (Body fld) [Mass/Vol] 2.5 g/dL 3.2-5.5 [facility] Casts typing in urine sedime nt by light microscopyOrdered By: Paulina Alexanedr on 03-17-2022 Casts LM Nom (Urine sed) None seen [LPF] None Seen [facility] Cholesterol [Mass/volume] in Serum or PlasmaOrdered By: Paulina Alexander on 03-17-2022 Cholesterol [Mass/Vol] 50 mg/dL 140-200 [facility] Comment on above: Chol less than 200 m g/dl low riskChol 201-239 mg/dl borderline riskChol 240 mg/dl and greater high risk Cholesterol in LDL Calc [Mas s/Vol]Ordered By: Paulina Alexander on 03-17-2022 Cholesterol in LDL [Mass/Vol] 12 mg/dL 0-100 [facility] Comment on above: LDL ATP III CLASSIFI CATIONLDL less than 100 mg/dL OptimalLDL 100-129 mg/dL Near or above optimalLDL 130-159 mg/dL Borderline highLDL 160-189 mg/dL HighLDL greater than 189 mg/dL Very high Cholesterol in VLDL Calc [Ma ss/Vol]Ordered By: Paulina Alexander on 03-17-2022 Cholesterol in VLDL [Mass/Vol] 20 mg/dL [facility] Color Auto (U)Ordered By: Jose G Alexander on 03-17-2022 Color (U) Yellow Yellow [facility] Globulin Calc (S) [Mass/Vol] Ordered By: Paulina Alexander on 03-17-2022 Globulin (S) [Mass/Vol] 3.1 g/dL [facility] Glucose mean value [Mass/vol ume] in Blood Estimated from glycated hemoglobinOrdered By: Paulina Alexander on 03-17-2022 Average glucose Estimated from glycated hemoglobin (Bld) [Mass/Vol] 180 mg/dL [facility] Hemoglobin A1c percentageOrd ered By: Paulina Alexander on 03-17-2022 HbA1c (Bld) [Mass fraction] 7.9 % 4.3-5.6 [facility] Comment on above: Increased risk for d iabetes: 5.7 - 6.4diabetes: >6.4glycemic control for adults with diabetes: <7.0 Ketones Auto test strip (U) [Mass/Vol]Ordered By: Paulina Alexander on 03-17-2022 Ketones (U) [Mass/Vol] Negative Negative [facility] Laboratory - Chemistry and C hemistry - challengeOrdered By: Paulina Alexander on 03-17-2022 Magnesium [Mass/Vol] 1.6 mg/dL 1.6-2.6 [facility] Nitrite Test strip Ql (U)Ord ered By: Paulina Alexander on 03-17-2022 Nitrite Ql (U) Negative Negative [facility] No Panel InformationOrdered By: Neno Moreira on 03-17-2022 Bedside Glucose Comment Glu2: cleaned meter [facility] Protein Auto test strip (U) [Mass/Vol]Ordered By: Paulina Alexander on 03-17-2022 Protein (U) [Mass/Vol] 100 mg/dL Negative [facility] Protein [Mass/volume] in Ser um or PlasmaOrdered By: Paulina Alexander on 03-17-2022 Protein [Mass/Vol] 5.6 g/dL 6.1-7.9 [facility] Serum or plasma alanine gamez otransferase measurement without P-5'-P (enzymatic activiOrdered By: Paulina Alexander on 03-17-2022 ALT No additional P-5'-P [Catalytic activity/Vol] 19 U/L 10-60 [facility] Serum or plasma albumin/glob ulin mass ratioOrdered By: Paulina Alexander on 03-17-2022 Albumin/Globulin [Mass ratio] 0.8 {ratio} [facility] Serum or plasma alkaline adriane sphatase measurement (enzymatic activity/volume)Ordered By: Paulina Alexander on 03-17-2022 ALP [Catalytic activity/Vol] 56 U/L 32-92 [facility] Serum or plasma aspartate am inotransferase measurement (enzymatic activity/volume)Ordered By: Paulina Alexander on 03-17-2022 AST [Catalytic activity/Vol] 37 U/L 10-42 [facility] Serum or plasma high density lipoprotein (HDL) cholesterol measurementOrdered By: Paulina Alexander on 03-17-2022 Cholesterol in HDL [Mass/Vol] 18 mg/dL 29-71 [facility] Comment on above: HDL CHOL ATP-III CLA SSIFICATION Cardiovascular RiskHDL > or equal to 60 mg/dL LOWHDL < 40 mg/dL HIGH Serum or plasma total biliru bin measurement (mass/volume)Ordered By: Paulina Alexander on 03-17-2022 Bilirubin [Mass/Vol] 0.6 mg/dL 0.3-1.2 [facility] Serum or plasma total choles terol/high density lipoprotein (HDL) cholesterol mass ratOrdered By: Paulina Alexander on 03-17-2022 Cholesterol.total/Chol esterol in HDL [Mass ratio] 2.8 {ratio} <5.0 [facility] Specific gravity Auto test s trip (U) [Rel density]Ordered By: Paulina Alexander on 03-17-2022 Specific gravity (U) [Rel density] 1.017 1.001-1.030 [facility] Squamous epithelial cells de tection in urine sediment by light microscopyOrdered By: Paulina Alexander on 03-17-2022 Epithelial cells.squamous LM Ql (Urine sed) 0-1 [HPF] 0-2 [facility] Triglyceride [Mass/volume] i n Serum or PlasmaOrdered By: Paulina Alexander on 03-17-2022 Triglyceride [Mass/Vol] 100 mg/dL 35-149 [facility] Comment on above: TRIG ATP III CLASSIF ICATIONTRIG less than 150 mg/dL NormalTRIG 150-199 mg/dL Borderline highTRIG 200-500 mg/dL High TRIG greater than 500 mg/dL Very highStandard traceable to the Center for Disease Conrtrol and Prevention (CDC) test method. Urine bacteria detection by automated methodOrdered By: Paulina Alexander on 03-17-2022 Bacteria Auto Ql (U) 2+ None Seen [facility] Comment on above: --- 03/17/22 0600 -- -Ur Bact previously reported as: None Seen Urine clarity by refractomet ry automatedOrdered By: Paulina Alexander on 03-17-2022 Clarity Refractometry automated (U) Turbid Clear [facility] Urine glucose measurement by automated test strip (mass/volume)Ordered By: Paulina Alexander on 03-17-2022 Glucose Auto test strip (U) [Mass/Vol] 250 mg/dL Normal [facility] Urine hemoglobin detection b y automated test stripOrdered By: Paulina Alexander on 03-17-2022 Hemoglobin Auto test strip Ql (U) 3+ Negative [facility] Urine leukocyte esterase det ection by automated test stripOrdered By: Paulina Alexander on 03-17-2022 Leukocyte esterase Auto test strip Ql (U) 4+ Negative [facility] Urobilinogen Auto test strip (U) [Mass/Vol]Ordered By: Paulina Alexander on 03-17-2022 Urobilinogen (U) [Mass/Vol] Normal mg/dL Normal [facility] Yeast detection in urine sed iment by light microscopyOrdered By: Paulina Alexander on 03-17-2022 Yeast LM Ql (Urine sed) None seen [HPF] None Seen [facility] pH Auto test strip (U)Ordere d By: Paulina Alexander on 03-17-2022 pH (U) 5.5 [pH] 5.0-9.0 [facility] ACETONE SERUMon 03-16-2022 ACETONE Negative Normal NEGATIVE [facility] Comment on above: Performed By: #### S EDR #### [facility] [address] [place] [address] Dr. Julius Greer BLOOD CULTURE ID PANELon A. baumannii Not detected Normal NOT DETECTED [facility] Comment on above: Performed By: #### C BCMAN #### [facility] [address] [place] [address] Dr. Julius Greer Bacteriodes fragilis Not detected Normal NOT DETECTED [facility] Comment on above: Performed By: #### C BCMAN #### [facility] [address] [address] [address] Julius GAMBLED CONTROLS PASSED Normal [facility] Comment on above: Performed By: #### C BCMAN #### [facility] [address] [address] [address] Julius Greer BCIDBTHD BLOOD CULTURE BOTTLE INFORMATION [facility] Comment on above: Performed By: #### C BCMAN #### [facility] [address] [address] [address] Julius Greer BCIDHD1 ANTIMICROBIAL RESIST ANCE GENES [facility] Comment on above: Performed By: #### C BCMAN #### [facility] [address] [place] [address] Dr. Julius Greer BCIDHD2 SEE BELOW [facility] Comment on above: Result Comment: Note : Antimicrobial resitance can occur via multiple mechanisms. A Not Detected result for the [employer] antomicrobial resistance gene assays does not indicate antimicrobial susceptibility. Subculturing is required for species identification and susceptibility testing of isolates. Performed By: #### C BCMAN #### [facility] [address] [place] [address] Dr. Julius Greer BCIDHD3 Positive [facility] Comment on above: Performed By: #### C BCMAN #### [facility] [address] [place] [address] Dr. Julius Greer BCIDHD4 Negative [facility] Comment on above: Performed By: #### C BCMAN #### [facility] [address] [place] [address] Dr. Julius Greer BCIDHD5 YEAST [facility] Comment on above: Performed By: #### C BCMAN #### [facility] [address] [place] [address] Dr. Julius Greer Bottle Set: Set 2 [facility] Comment on above: Performed By: #### C BCMAN #### [facility] [address] [place] [address] Dr. Julius Greer Bottle: Aerobic Normal [facility] Comment on above: Performed By: #### C BCMAN #### [facility] [address] [place] [address] Dr. Julius Greer C. neoformans/gattii Not detected Normal NOT DETECTED [facility] Comment on above: Performed By: #### C BCMAN #### [facility] [address] [place] [address] Dr. Julius Greer Sally albicans Not detected Normal NOT DETECTED [facility] Comment on above: Performed By: #### C BCMAN #### [facility] [address] [place] [address] Dr. Julius Greer Sally auris Not detected Normal NOT DETECTED [facility] Comment on above: Performed By: #### C BCMAN #### [facility] [address] [place] [address] Dr. Julius Greer Sally glabrata Not detected Normal NOT DETECTED [facility] Comment on above: Performed By: #### C BCMAN #### [facility] [address] [place] [address] Dr. Julius Greer Sally Krusei Not detected Normal NOT DETECTED [facility] Comment on above: Performed By: #### C BCMAN #### [facility] [address] [place] [address] Dr. Julius Greer Sally Parapsilosis Not detected Normal NOT DETECTED [facility] Comment on above: Performed By: #### C BCMAN #### [facility] [address] [place] [address] Dr. Julius Greer Sally Tropicalis Not detected Normal NOT DETECTED [facility] Comment on above: Performed By: #### C BCMAN #### [facility] [address] [place] [address] Dr. Julius Greer CTX-M Resistant Gene Not detected Normal NOT DETECTED [facility] Comment on above: Performed By: #### C BCMAN #### [facility] [address] [place] [address] Dr. Julius Greer E. Cloacae complex Not detected Normal NOT DETECTED [facility] Comment on above: Performed By: #### C BCMAN #### [facility] [address] [place] [address] Dr. Julius Greer E. faecalis Not detected Normal NOT DETECTED [facility] Comment on above: Performed By: #### C BCMAN #### [facility] [address] [place] [address] Dr. Julius Greer E. faecium Not detected Normal NOT DETECTED [facility] Comment on above: Performed By: #### C BCMAN #### [facility] [address] [place] [address] Dr. Julius Greer Enterobacteriaceae Detected Critically abnormal NOT DETECTED [facility] Comment on above: Performed By: #### C BCMAN #### [facility] [address] [place] [address] Dr. Julius Greer Escherichia coli Not detected Normal NOT DETECTED [facility] Comment on above: Performed By: #### C BCMAN #### [facility] [address] [place] [address] Dr. Julius Greer H. influenzae Not detected Normal NOT DETECTED [facility] Comment on above: Performed By: #### C BCMAN #### [facility] [address] [place] [address] Dr. Julius Greer IMP Resistant Gene Not detected Normal NOT DETECTED [facility] Comment on above: Performed By: #### C BCMAN #### [facility] [address] [place] [address] Dr. Julius Greer K. oxytoca Not detected Normal NOT DETECTED [facility] Comment on above: Performed By: #### C BCMAN #### [facility] [address] [place] [address] Dr. Julius Greer K. pneumoniae Not detected Normal NOT DETECTED [facility] Comment on above: Performed By: #### C BCMAN #### [facility] [address] [place] [address] Dr. Julius Greer Klebsiella aerogenes Not detected Normal NOT DETECTED [facility] Comment on above: Performed By: #### C BCMAN #### [facility] [address] [place] [address] Dr. Julius Greer KPC Resistant Gene Not detected Normal NOT DETECTED [facility] Comment on above: Performed By: #### C BCMAN #### [facility] [address] [place] [address] Dr. Julius Greer List. monocytogenes Not detected Normal NOT DETECTED [facility] Comment on above: Performed By: #### C BCMAN #### [facility] [address] [place] [address] Dr. Julius Greer Mcr-1 Resistant Gene Not Applicable Normal NOT DETECTED [facility] Comment on above: Performed By: #### C BCMAN #### [facility] [address] [place] [address] Dr. Julius Greer mecA/C Not Applicable Normal NOT DETECTED [facility] Comment on above: Performed By: #### C BCMAN #### [facility] [address] [place] [address] Dr. Julius Greer mecA/C MREJ Not Applicable Normal NOT DETECTED [facility] Comment on above: Performed By: #### C BCMAN #### [facility] [address] [place] [address] Dr. Julius Greer N. meningitidis Not detected Normal NOT DETECTED [facility] Comment on above: Performed By: #### C BCMAN #### [facility] [address] [place] [address] Dr. Julius Greer NDM Resistant Gene Not detected Normal NOT DETECTED [facility] Comment on above: Performed By: #### C BCMAN #### [facility] [address] [place] [address] Dr. Julius Greer Oxa-48-like Not detected Normal NOT DETECTED [facility] Comment on above: Performed By: #### C BCMAN #### [facility] [address] [place] [address] Dr. Julius Greer Proteus Detected Critically abnormal NOT DETECTED [facility] Comment on above: Performed By: #### C BCMAN #### [facility] [address] [place] [address] Dr. Julius Greer Pseud. aeruginosa Not detected Normal NOT DETECTED [facility] Comment on above: Performed By: #### C BCMAN #### [facility] [address] [place] [address] Dr. Julius Greer S. maltophilia Not detected Normal NOT DETECTED [facility] Comment on above: Performed By: #### C BCMAN #### [facility] [address] [place] [address] Dr. Julius Greer Salmonella Not detected Normal NOT DETECTED [facility] Comment on above: Performed By: #### C BCMAN #### [facility] [address] [place] [address] Dr. Julius Greer Seratia marcescens Not detected Normal NOT DETECTED [facility] Comment on above: Performed By: #### C BCMAN #### [facility] [address] [place] [address] Dr. Julius Greer Site: Rt Wrist Normal [facility] Comment on above: Performed By: #### C BCMAN #### [facility] [address] [place] [address] Dr. Julius Greer Staph. aureus Not detected Normal NOT DETECTED [facility] Comment on above: Performed By: #### C BCMAN #### [facility] [address] [place] [address] Dr. Julius Greer Staph. epidermidis Not detected Normal NOT DETECTED [facility] Comment on above: Performed By: #### C BCMAN #### [facility] [address] [place] [address] Dr. Julius Greer Staprobin. lugdunensis Not detected Normal NOT DETECTED [facility] Comment on above: Performed By: #### C BCMAN #### [facility] [address] [place] [address] Dr. Julius Greer Staphylococcus Not detected Normal NOT DETECTED [facility] Comment on above: Performed By: #### C BCMAN #### [facility] [address] [place] [address] Dr. Julius Greer Strep. agalactiae Not detected Normal NOT DETECTED [facility] Comment on above: Performed By: #### C BCMAN #### [facility] [address] [place] [address] Dr. Julius Greer Strep. pneumoniae Not detected Normal NOT DETECTED [facility] Comment on above: Performed By: #### C BCMAN #### [facility] [address] [place] [address] Dr. Julius Greer Strep. pyogenes Not detected Normal NOT DETECTED [facility] Comment on above: Performed By: #### C BCMAN #### [facility] [address] [place] [address] Dr. Julius Greer Streptococcus Not detected Normal NOT DETECTED [facility] Comment on above: Performed By: #### C BCMAN #### [facility] [address] [place] [address] Dr. Julius Greer Alejandra/B Resist. Gene Not Applicable Normal NOT DETECTED [facility] Comment on above: Performed By: #### C BCMAN #### [facility] [address] [place] [address] Dr. Julius Greer VIM Resistant Gene Not detected Normal NOT DETECTED [facility] Comment on above: Performed By: #### C BCMAN #### [facility] [address] [place] [address] Dr. Julius Greer CARDIAC MARKUS 3-6on 2 CK [Catalytic activity/Vol] 130 U/L Normal 39-308 [facility] Comment on above: Performed By: #### C BCMAN #### [facility] [address] [place] [address] Dr. Julius Greer CK.MB [Mass/Vol] 3.69 ng/mL Critically high <=3.60 [facility] Comment on above: Performed By: #### C BCMAN #### [facility] [address] [place] [address] Dr. Julius Greer HSTROP 603.2 pg/mL Critically high 4.0-76.1 [facility] Comment on above: Result Comment: CUT- OFF POINTS HAVE BEEN ESTABLISHED BASED ON THE FOURTH UNIVERSAL DEFINITIONS OF MYOCARDIAL INFARCTION. THE UPPER REFERENCE LIMIT (URL) OF TROPONIN, DEFINED THE 99TH PERCENTILE OF cTnI DISTRIBUTION IN A REFERENCE POPULATION, HAS BEEN CONFIRMED THE DECISION THRESHOLD FOR [place] DIAGNOSIS. Performed By: #### C BCMAN #### [facility] [address] [address] [address] Julius Greer CBC W MANUAL DIFFon 03-16-20 22 ATYPICAL LYMPH # 0.04 103/ul Normal [facility] Comment on above: Performed By: #### C EMETERIO #### [facility] [address] [address] [address] Julius Greer ATYPICAL LYMPH % 1 % Normal [facility] Comment on above: Performed By: #### C EMETERIO #### [facility] [address] [address] [address] Julius Greer BAND # 0.2 103/ul Normal 0.0-0.3 [facility] Comment on above: Performed By: #### C EMETERIO #### [facility] [address] [place] [address] Dr. Julius Greer BAND % 5 % Normal 0-5 [facility] Comment on above: Performed By: #### C EMETERIO #### [facility] [address] [place] [address] Dr. Julius Greer BASOM # 0.00 103/ul Normal 0.00-0.10 [facility] Comment on above: Performed By: #### C EMETERIO #### [facility] [address] [place] [address] Dr. Julius Greer BASOM % 0.0 % Critically low 0.2-2.0 [facility] Comment on above: Performed By: #### C EMETERIO #### [facility] [address] [place] [address] Dr. Julius Greer BLAST # Normal [facility] Comment on above: Performed By: #### C EMETERIO #### [facility] [address] [place] [address] Dr. Julius Greer BLAST % Normal [facility] Comment on above: Performed By: #### C EMETERIO #### [facility] [address] [place] [address] Dr. Julius Greer CORRECTED WBC Normal 4.0-11.0 [facility] Comment on above: Performed By: #### C EMETERIO #### [facility] [address] [address] [address] Julius Greer EOS # 0.00 103/ul Normal 0.00-0.70 [facility] Comment on above: Performed By: #### C EMETERIO #### [facility] [address] [address] [address] Julius Greer EOS% 0.0 % Critically low 0.9-7.0 [facility] Comment on above: Performed By: #### C EMETERIO #### [facility] [address] [address] [address] Julius Greer HCT 39.8 % Critically low 42.0-54.0 [facility] Comment on above: Performed By: #### C EMETERIO #### [facility] [address] [place] [address] Dr. Julius Greer HGB 13.3 g/dl Critically low 14.0-18.0 [facility] Comment on above: Performed By: #### C EMETERIO #### [facility] [address] [place] [address] Dr. Julius Greer LYMPHM # 0.43 103/ul Critically low 1.20-3.80 [facility] Comment on above: Performed By: #### C EMETERIO #### [facility] [address] [place] [address] Dr. Julius Greer LYMPHM% 11.0 % Critically low 20.5-60.0 [facility] Comment on above: Performed By: #### C EMETERIO #### [facility] [address] [place] [address] Dr. Julius Greer MCH 29.9 pg Normal 25.9-34.0 [facility] Comment on above: Performed By: #### C EMETERIO #### [facility] [address] [place] [address] Dr. Julius Greer MCHC 33.4 g/dl Normal 29.9-35.2 [facility] Comment on above: Performed By: #### C EMETERIO #### [facility] [address] [place] [address] Dr. Julius Greer MCV 89.4 fL Normal 80.0-94.0 [facility] Comment on above: Performed By: #### C EMETERIO #### [facility] [address] [place] [address] Dr. Julius Greer METAMYELOCYTE # Normal [facility] Comment on above: Performed By: #### C EMETERIO #### [facility] [address] [place] [address] Dr. Julius Greer METAMYELOCYTE % Normal [facility] Comment on above: Performed By: #### C BCSARITA #### [facility] [address] [place] [address] Dr. Julius Greer MONOM# 0.08 103/ul Critically low 0.30-0.80 [facility] Comment on above: Performed By: #### C EMETERIO #### [facility] [address] [place] [address] Dr. Julius Greer MONOM% 2.0 % Normal 1.7-12.0 [facility] Comment on above: Performed By: #### C EMETERIO #### [facility] [address] [place] [address] Dr. Julius Greer MPV 9.6 fL Normal 9.5-13.5 [facility] Comment on above: Performed By: #### C EMETERIO #### [facility] [address] [place] [address] Dr. Julius Greer MYELOCYTE # Normal [facility] Comment on above: Performed By: #### C EMETERIO #### [facility] [address] [place] [address] Dr. Julius Greer MYELOCYTE % Normal [facility] Comment on above: Performed By: #### C EMETERIO #### [facility] [address] [place] [address] Dr. Julius Greer NRBC Normal [facility] Comment on above: Performed By: #### C EMETERIO #### [facility] [address] [place] [address] Dr. Julius Greer PLT 130 103/ul Critically low 150-450 [facility] Comment on above: Performed By: #### C BCMAN #### [facility] [address] [place], [place] [address] Dr. Julius Greer RBC 4.45 106/ul Critically low 4.70-6.10 [facility] Comment on above: Performed By: #### C FRANCMAN #### [facility] [address] [place], [place] [address] Dr. Julius Greer RDW 12.1 % Normal 11.0-15.0 [facility] Comment on above: Performed By: #### C FRANCMAN #### [facility] [address] [place], [place] [address] Dr. Julius Greer SEG # 3.16 103/ul Normal 1.40-6.50 [facility] Comment on above: Performed By: #### C EMETEROI #### [facility] [address] [address] [address] Julius Greer SEG % 81.0 % Critically high 43.0-75.0 [facility] Comment on above: Performed By: #### C EMETERIO #### [facility] [address] [place], [place] [address] Dr. Julius Greer WBC 3.9 103/ul Critically low 4.0-11.0 [facility] Comment on above: Performed By: #### C EMETERIO #### [facility] [address] [place], [place] [address] Dr. Julius Greer CRPon 03-16-2022 CRP 27.4 mg/dL Critically high <=1.0 [facility] Comment on above: Performed By: #### S EDR #### [facility] [address] [address] [address] ABD/PELVIS WO CONon [...] DORCAS PATEL Date: 2022-03-16 18:46 Normal [facility] Covid-19 PCR ([facility])on SARS-CoV-2 (COVID-19) RNA RAYMON+probe Ql (Unsp spec) Not detected Normal NOT DETECTED [facility] Comment on above: Result Comment: When diagnostic [...] for this test is supported by the [place] of [employer] and Human Service's declaration that [...] longer be used). Performed By: #### C [facility] #### [facility] [address] [address] [address] Julius HIGUERA URINE PROFILEon 2 Bilirubin Ql (U) Negative Normal NEGATIVE [facility] Comment on above: Performed By: #### C BCMAN #### [facility] [address] [place] [address] Dr. Julius Greer Clarity (U) CLEAR Normal CLEAR [facility] Comment on above: Performed By: #### C BCMAN #### [facility] [address] [place] [address] Dr. Julius Greer Color (U) DK. ORANGE Abnormal YELLOW [facility] Comment on above: Performed By: #### C EMETERIO #### [facility] [address] [place] [address] Dr. Julius GRAY A micrscopic examina tion will be performed if indicated. Normal [facility] Comment on above: Performed By: #### C BCMAN #### [facility] [address] [place] [address] Dr. Julius Greer Glucose Ql (U) 500 mg/dl Abnormal NEGATIVE [facility] Comment on above: Performed By: #### C EMETERIO #### [facility] [address] [place] [address] Dr. Julius Greer Hemoglobin Ql (U) LARGE Abnormal NEGATIVE [facility] Comment on above: Performed By: #### C EMETERIO #### [facility] [address] [place] [address] Dr. Julius Greer Ketones Ql (U) 15 mg/dl Abnormal NEGATIVE [facility] Comment on above: Performed By: #### C BCSARITA #### [facility] [address] [place] [address] Dr. Julius Greer LEUKOCYTES SMALL Abnormal NEGATIVE [facility] Comment on above: Performed By: #### C BCSARITA #### [facility] [address] [place] [address] Dr. Julius Greer Nitrite Ql (U) Positive Abnormal NEGATIVE [facility] Comment on above: Performed By: #### C BCSARITA #### [facility] [address] [place] [address] Dr. Julius Greer pH (U) 8.5 [pH] Normal 5-9 [facility] Comment on above: Performed By: #### C EMETERIO #### [facility] [address] [place] [address] Dr. Julius Greer Protein (U) [Mass/Vol] 100 mg/dL Abnormal NEGAT HAYDEE/ TRACE [facility] Comment on above: Performed By: #### C EMETERIO #### [facility] [address] [place] [address] Dr. Julius Greer SPEC GRAVITY 1.020 Normal 1.005-<=1.0 25 [facility] Comment on above: Performed By: #### C EMETERIO #### [facility] [address] [place] [address] Dr. Julius Greer UR MICRO IND INDICATED Normal [facility] Comment on above: Performed By: #### C EMETERIO #### [facility] [address] [place] [address] Dr. Julius Greer Urobilinogen Qn (U) 1.0 {Wilson'U}/dL Normal 0.2 - 1. 0 [facility] Comment on above: Performed By: #### C EMETERIO #### [facility] [address] [place] [address] Dr. Julius Greer LACTATE/LACTIC ACIDon 2021 Lactate [Moles/Vol] 2.3 mmol/L Critically high 0.4-1.9 [facility] Comment on above: Performed By: #### C EMETERIO #### [facility] [address] [place] [address] Dr. Julius Greer Lactate [Moles/Vol] 4.1 mmol/L Critically high 0.4-1.9 [facility] Comment on above: Performed By: #### L ACT #### [facility] [address] [place] [address] Dr. Julius Greer PH VENOUS BLOODon 03-16-2022 PCO2 VENOUS 29.6 mmHg Critically low 40.0-52.0 [facility] Comment on above: Performed By: #### P HVEN #### [facility] [address] [place] [address] Dr. Julius Greer pH VENOUS 7.428 Normal 7.330-7.430 [facility] Comment on above: Performed By: #### P HVEN #### [facility] [address] [place] [address] Dr. Julius Greer POINT OF CARE GLUCOSEon 110 Glucose [Mass/Vol] 314 mg/dL Critically high 74-106 [facility] Comment on above: Performed By: #### P OCGLUC #### [facility] [address] [place] [address] Dr. Julius Greer PROF 14(COMP METB)on 022 Albumin [Mass/Vol] 2.8 g/dL Critically low 3.4-5.0 [facility] Comment on above: Performed By: #### S EDR #### [facility] [address] [place] [address] Dr. Julius Greer Albumin/Globulin [Mass ratio] 0.8 {ratio} Normal [facility] Comment on above: Performed By: #### S EDR #### [facility] [address] [place] [address] Dr. Julius Greer ALP [Catalytic activity/Vol] 80 U/L Normal 46-116 [facility] Comment on above: Performed By: #### S EDR #### [facility] [address] [place] [address] Dr. Julius Greer ALT [Catalytic activity/Vol] 14 U/L Critically low 16-63 [facility] Comment on above: Performed By: #### S EDR #### [facility] [address] [place] [address] Dr. Julius Greer Anion gap [Moles/Vol] 14.7 mmol/L Normal [facility] Comment on above: Performed By: #### S EDR #### [facility] [address] [place] [address] Dr. Julius Greer AST [Catalytic activity/Vol] 20 U/L Normal 15-37 [facility] Comment on above: Performed By: #### S EDR #### [facility] [address] [address] [address] Julius Greer Bilirubin [Mass/Vol] 0.6 mg/dL Normal 0.2-1.0 [facility] Comment on above: Performed By: #### S EDR #### [facility] [address] [address] [address] Julius Greer Calcium [Mass/Vol] 8.5 mg/dL Normal 8.5-10.1 [facility] Comment on above: Performed By: #### S EDR #### [facility] [address] [address] [address] Julius Greer Chloride [Moles/Vol] 96 mmol/L Critically low 98-107 [facility] Comment on above: Performed By: #### S EDR #### [facility] [address] [address] [address] Julius Greer CO2 [Moles/Vol] 19.7 mmol/L Critically low 21.0-32.0 [facility] Comment on above: Performed By: #### S EDR #### [facility] [address] [address] [address] Julius Greer Creatinine [Mass/Vol] 1.26 mg/dL Normal 0.70-1.30 [facility] Comment on above: Performed By: #### S EDR #### [facility] [address] [address] [address] Julius Greer EGFR-AF COSTA RICAN >60 Normal >=60 [facility] Comment on above: Performed By: #### S EDR #### [facility] [address] [address] [address] Jluius Greer EGFR-NON AF CO[place] 56 mL/min/1.73m2 Critically low >=60 [facility] Comment on above: Performed By: #### S EDR #### [facility] [address] [address] [address] Julius Greer Globulin (S) [Mass/Vol] 3.6 g/dL Normal [facility] Comment on above: Performed By: #### S EDR #### [facility] [address] [address] [address] Julius Greer Glucose [Mass/Vol] 311 mg/dL Critically high 74-106 [facility] Comment on above: Performed By: #### S EDR #### [facility] [address] [address] [address] Julius Greer Potassium [Moles/Vol] 3.4 mmol/L Critically low 3.5-5.1 [facility] Comment on above: Performed By: #### S EDR #### [facility] [address] [address] [address] Julius Greer Protein [Mass/Vol] 6.4 g/dL Normal 6.4-8.2 [facility] Comment on above: Performed By: #### S EDR #### [facility] [address] [address] [address] Julius Greer Sodium [Moles/Vol] 127 mmol/L Critically low 136-145 [facility] Comment on above: Performed By: #### S EDR #### [facility] [address] [address] [address] Julius Greer Urea nitrogen [Mass/Vol] 19.0 mg/dL Critically high 7.0-18.0 [facility] Comment on above: Performed By: #### S EDR #### [facility] [address] [address] [address] Julius Greer Urea nitrogen/Creatinine [Mass ratio] 15.1 mg/mg Normal [facility] Comment on above: Performed By: #### S EDR #### [facility] [address] [address] [address] Julius Greer PROTIMEon 03-16-2022 INR Coag (PPP) [Relative time] 1.38 {INR} [facility] Comment on above: Performed By: #### P T, PTT #### [facility] [address] [address] [address] Julius Greer INR GUIDELINES SEE BELOW Normal [facility] Comment on above: Result Comment: PETROS RED INR: 2.0 - 3.0 CONDITIONS NOT LISTED BELOW 2.5 - 3.5 FOR PROSTHETIC HEART VALVE REPLACEMENT 2.5 - 3.5 RECURRENT THROMBOSIS Performed By: #### P T, PTT #### [facility] [address] [place] [address] Dr. Julius Greer PT Coag (PPP) [Time] 14.6 s Critically high 9.0-11.6 [facility] Comment on above: Performed By: #### P T, PTT #### [facility] [address] [place] [address] Dr. Julius Greer PTTon 03-16-2022 aPTT Coag (Bld) [Time] 36.2 s Normal 22.3-36.2 [facility] Comment on above: Performed By: #### P T, PTT #### [facility] [address] [place] [address] Dr. Julius Greer SED RATE WESTERGRENon 2021 SED RATE 62 mm/hr Critically high <=20 [facility] Comment on above: Performed By: #### S EDR #### [facility] [address] [place] [address] Dr. Julius Greer TROPONIN, HIGH SENSITIVITYon 03-16-2022 HSTROP 651.3 pg/mL Critically high 4.0-76.1 [facility] Comment on above: Result Comment: CUT- OFF POINTS HAVE BEEN ESTABLISHED BASED ON THE FOURTH UNIVERSAL DEFINITIONS OF MYOCARDIAL INFARCTION. THE UPPER REFERENCE LIMIT (URL) OF TROPONIN, DEFINED THE 99TH PERCENTILE OF cTnI DISTRIBUTION IN A REFERENCE POPULATION, HAS BEEN CONFIRMED THE DECISION THRESHOLD FOR [place] DIAGNOSIS. Performed By: #### S EDR #### [facility] [address] [place] [address] Dr. Julius Greer URINE MICROSCOPIC ONLYon BACTERIA TRACE Abnormal NONE SEEN [facility] Comment on above: Performed By: #### C BCMAN #### [facility] [address] [place] [address] Dr. Julius Greer Bacteria identified Cx Nom (U) INDICATED Normal [facility] Comment on above: Performed By: #### C BCMAN #### [facility] [address] [place] [address] Dr. Julius Greer CAST SEEN Abnormal NONE SEEN [facility] Comment on above: Performed By: #### C BCMAN #### [facility] [address] [place] [address] Dr. Julius Greer Crystals LM Nom (Urine sed) NONE SEEN Normal NONE SEEN [facility] Comment on above: Performed By: #### C BCMAN #### [facility] [address] [place] [address] Dr. Julius Greer Epithelial cells LM Ql (Urine sed) FEW Abnormal NONE SEEN /RARE [facility] Comment on above: Performed By: #### C BCMAN #### [facility] [address] [place] [address] Dr. Julius Greer HYALINE CAST RARE Normal [facility] Comment on above: Performed By: #### C BCMAN #### [facility] [address] [place] [address] Dr. Julius Greer MUCOUS NONE SEEN Normal NONE SEEN [facility] Comment on above: Performed By: #### C BCMAN #### [facility] [address] [place] [address] Dr. Julius Greer RBC 0-2 Normal 0-2 [facility] Comment on above: Performed By: #### C BCMAN #### [facility] [address] [place] [address] Dr. Juluis Greer XR CHEST 1 Von 03-16-2022 XR [...] Marc SHEARER Date: 2022-03-16 20:19 [address] [facility] [address] ABD/PELV WO W CONon 03-06 CT [...] SERRANO Date: 2022-03-06 07:43 Normal [facility] CREATININEon 03-03-2022 Creatinine [Mass/Vol] 0.83 mg/dL Normal 0.70-1.30 [facility] Comment on above: Performed By: #### C STU #### [facility] [address] [place] [address] Dr. Julius Greer EGFR-AF COSTA RICAN >60 Normal >=60 [facility] Comment on above: Performed By: #### C STU #### [facility] [address] [address] [address] Julius Greer EGFR-NON AF [place] >60 Normal >=60 [facility] Comment on above: Performed By: #### C STU #### [facility] [address] [place], [place] [address] Dr. Julius Greer PTon 12-16-2021 INR Coag (PPP) [Relative time] 1.5 {INR} Normal [facility] Comment on above: Result Comment: Non-therapeutic Range: INR = 0.9-1.2 Therapeutic Range: Moderate Anticoagulant Intensity: INR = 2.0-3.0 High Anticoagulant Intensity: INR = 2.5-3.5 Performed By: #### P T #### [facility] [address] [place] [address] [employer]ter: Michael Méndez MD PT Coag (PPP) [Time] 17.9 s High 11.5-14.2 [facility] Comment on above: Performed By: #### P T #### [facility] [address] [place] [address] Dr. [place] [phone] [employer]forcing [employer]ter: Michael Méndez MD Hemoglobin A1Con 12-02-2021 Glucose [Mass/Vol] 189 mg/dL Normal [facility] Comment on above: Result Comment: The ADA and AACC recommend providing the estimated average glucose result to permit better patient understanding of their HBA1c result. Performed By: #### L IPR, GLYHGB, PSAS #### [address] [phone] [employer]: Perico Murray MD #### CP, CDP #### [facility] [address] [place] [address] [employer]forcing [employer]ter: Michael Méndez MD HbA1c (Bld) [Mass fraction] 8.2 % High 4.0-6.0 [facility] Comment on above: Performed By: #### L IPR, GLYHGB, PSAS #### [address] [phone] [employer]: Perico Murray MD #### CP, CDP #### [facility] [address] [place] [address] Reinforcing [employer]ter: Michael Méndez MD CBC with Auto Differentialon 12-01-2021 Absolute Eos # 0.06 [facility] Absolute Immature Granulocyte [facility] Absolute Lymph # 1.87 [facility] Absolute [place] # 0.71 [facility] Basophils Absolute [facility] Basophils/100 WBC (Bld) 0 % 0 - 2 % [facility] Eosinophils/100 WBC (Bld) 1 % 1 - 4 % [facility] Hematocrit (Bld) [Volume fraction] 36.5 % Low 40.7 - 50.3 % [facility] Hemoglobin (Bld) [Mass/Vol] 12.0 g/dL Low 13 - 17 g/dL [facility] Immature granulocytes/100 WBC (Bld) 0 % 0 [facility] Interpretation and review of laboratory results Abnormal [facility] Lymphocytes/100 WBC (Bld) 22 % Low 24 - 43 % [facility] MCH (RBC) [Entitic mass] 30.6 pg 25.2 - 33.5 pg [facility] MCHC (RBC) [Mass/Vol] 32.9 g/dL 28.4 - 34.8 g/dL [facility] MCV (RBC) [Entitic vol] 93.1 fL 82.6 - 102.9 fL [facility] Monocytes/100 WBC (Bld) 8 % 3 - 12 % [facility] NRBC Automated 0.0 0.0 per 100 WBC [facility] Platelet distribution width (Bld) [Ratio] 12.4 % 11.8 - 14.4 % [facility] Platelet mean volume (Bld) [Entitic vol] 9.1 fL 8.1 - 13.5 fL [facility] Platelets (Bld) [#/Vol] 204 10*3/uL [facility] RBC (Bld) [#/Vol] 3.92 10*6/uL Low 4.21 - 5.7 7 m/uL [facility] Segmented neutrophils/100 WBC (Bld) 69 % High 36 - 65 % [facility] Segs Absolute 6.02 [facility] WBC (Bld) [#/Vol] 8.7 10*3/uL [facility] CBC with Diffon 12-01-2021 Abs. Basophil <0.03 Normal 0.00-0.20 [place] Comment on above: Performed By: #### L IPR, GLYHGB, PSAS #### [address] [address] [employer]: Perico Murray MD #### CP, CDP #### [facility] [address] [place] [address] [place] [address] [employer]ter: Michael Méndez MD Abs.Imm.Granulocyte <0.03 Normal 0.00-0.30 [facility] Comment on above: Performed By: #### L IPR, GLYHGB, PSAS #### [address] [address] [employer]: Perico Murray MD #### CP, CDP #### [address] [place] [phone] Reinforcing [employer]ter: Michael Méndez MD Abs.Neutrophil (Seg) 6.02 k/uL Normal 1.50-8.10 [facility] Comment on above: Performed By: #### L IPR, GLYHGB, PSAS #### [address] [address] [employer]: Perico Murray MD #### CP, CDP #### [facility] [address] [place] [address] [place] [address] [employer]forcing [employer]ter: Michael Méndez MD Basophils/100 WBC (Bld) 0 % Normal 0-2 [facility] Comment on above: Performed By: #### L IPR, GLYHGB, PSAS #### [address] [phone] [employer]: Perico Murray MD #### CP, CDP #### [address] [place] [address] [employer]ter: Michael Méndez MD Eosinophils (Bld) [#/Vol] 0.06 10*3/uL Normal 0.00-0.44 [facility] Comment on above: Performed By: #### L IPR, GLYHGB, PSAS #### [address] [phone] [employer]: Perico Murray MD #### CP, CDP #### [address] [place] [address] Reinforcing [employer]ter: Michael Méndez MD Eosinophils/100 WBC (Bld) 1 % Normal 1-4 [facility] Comment on above: Performed By: #### L IPR, GLYHGB, PSAS #### [address] [phone] [employer]ter: Perico Murray MD #### CP, CDP #### [address] [place] [address] [employer]forcing [employer]ter: Michael Méndez MD Erythrocyte distribution width (RBC) [Ratio] 12.4 % Normal 11.8-14.4 [facility] Comment on above: Performed By: #### L IPR, GLYHGB, PSAS #### [address] [id number] [employer]ter: Perico Murray MD #### CP, CDP #### [address] [place] [address] [employer]forcing [employer]ter: Michael Méndez MD Hematocrit (Bld) [Volume fraction] 36.5 % Low 40.7-50.3 [facility] Comment on above: Performed By: #### L IPR, GLYHGB, PSAS #### [address] [address] [employer]: Perico Murray MD #### CP, CDP #### [address] [place] [address] [employer]forcing [employer]ter: Michael Méndez MD Hemoglobin (Bld) [Mass/Vol] 12.0 g/dL Low 13.0-17.0 [facility] Comment on above: Performed By: #### L IPR, GLYHGB, PSAS #### [address] [address] [employer]: Perico Murray MD #### CP, CDP #### [address] [place] [address] Reinforcing [employer]ter: Michael Méndez MD Immature granulocytes/100 WBC (Bld) 0 % Normal 0 [facility] Comment on above: Performed By: #### L IPR, GLYHGB, PSAS #### [address] [address] [employer]forcing [employer]ter: Perico Murray MD #### CP, CDP #### [address] [place] [phone] Reinforcing [employer] Setter: Michael Méndez MD Lymphocytes (Bld) [#/Vol] 1.87 10*3/uL Normal 1.10-3.70 [facility] Comment on above: Performed By: #### L IPR, GLYHGB, PSAS #### [address] [address] [employer]ter: Perico Murray MD #### CP, CDP #### [address] [place] [address] Reinforcing [employer]ter: Michael Méndez MD Lymphocytes/100 WBC (Bld) 22 % Low 24-43 [facility] Comment on above: Performed By: #### L IPR, GLYHGB, PSAS #### [address] [address] [employer]forcing [employer]ter: Perico Murray MD #### CP, CDP #### [address] [place] [phone] Reinforcing [employer] Setter: Michael Méndez MD MCH (RBC) [Entitic mass] 30.6 pg Normal 25.2-33.5 [facility] Comment on above: Performed By: #### L IPR, GLYHGB, PSAS #### [address] [address] [employer]forcing [employer]ter: Perico Murray MD #### CP, CDP #### [address] [place] [phone] Reinforcing Bar Setter: Michael Méndez MD MCHC (RBC) [Mass/Vol] 32.9 g/dL Normal 28.4-34.8 [facility] Comment on above: Performed By: #### L IPR, GLYHGB, PSAS #### [address] [address] [employer]forcing [employer]ter: Perico Murray MD #### CP, CDP #### [address] [place] [phone] Reinforcing [employer] Setter: Michael Méndez MD MCV (RBC) [Entitic vol] 93.1 fL Normal 82.6-102.9 [facility] Comment on above: Performed By: #### L IPR, GLYHGB, PSAS #### [address] [address] [employer]ter: Perico Murray MD #### CP, CDP #### [address] [place] [address] Reinforcing [employer] Setter: Michael Méndez MD Monocytes (Bld) [#/Vol] 0.71 10*3/uL Normal 0.10-1.20 [facility] Comment on above: Performed By: #### L IPR, GLYHGB, PSAS #### [address] [address] [employer]ter: Perico Murray MD #### CP, CDP #### [facility] [address] [place], [place] [phone] Reinforcing [employer]ter: Michael Méndez MD Monocytes/100 WBC (Bld) 8 % Normal 3-12 [facility] Comment on above: Performed By: #### L IPR, GLYHGB, PSAS #### [address] [address] [employer]forcing [employer]ter: Perico Murray MD #### CP, CDP #### [address] [place] [phone] Reinforcing [employer] Setter: Michael Méndez MD Neutrophil (Seg) 69 % High 36-65 [facility] Comment on above: Performed By: #### L IPR, GLYHGB, PSAS #### [address] [address] [employer]forcing [employer]ter: Perico Murray MD #### CP, CDP #### [address] [place], [place] [phone] Reinforcing [employer]ter: Michael Méndez MD NRBC Automated 0.0 per 100 WBC Normal 0.0 [facility] Comment on above: Performed By: #### L IPR, GLYHGB, PSAS #### [address] [address] Reinforcing [employer]ter: Perico Murray MD #### CP, CDP #### [address] [place], [place] [phone] Reinforcing Bar Setter: Michael Méndez MD Platelet mean volume (Bld) [Entitic vol] 9.1 fL Normal 8.1-13.5 [facility] Comment on above: Performed By: #### L IPR, GLYHGB, PSAS #### [facility] [address] [place] [address] Reinforcing [employer] Setter: Perico Murray MD #### CP, CDP #### [address] [place] [address] Reinforcing [employer] Setter: Michael Méndez MD Platelets (Bld) [#/Vol] 204 10*3/uL Normal 138-453 [facility] Comment on above: Performed By: #### L IPR, GLYHGB, PSAS #### [address] [address] Reinforcing [employer]ter: Perico Murray MD #### CP, CDP #### [address] [place] [address] Reinforcing [employer] Setter: Michael Méndez MD RBC (Bld) [#/Vol] 3.92 10*6/uL Low 4.21-5.77 [facility] Comment on above: Performed By: #### L IPR, GLYHGB, PSAS #### [address] [address] [employer]forcing [employer]ter: Perico Murray MD #### CP, CDP #### [address] [place] [address] Reinforcing [employer] Setter: Michael Méndez MD WBC (Bld) [#/Vol] 8.7 10*3/uL Normal 3.5-11.3 [facility] Comment on above: Performed By: #### L IPR, GLYHGB, PSAS #### [facility] [address] [place] [address] Reinforcing [employer]ter: Perico Murray MD #### CP, CDP #### [facility] [address] [place] [address] [place] [address] Reinforcing [employer] Setter: Michael Méndez MD Comp Metabolic Profon 2021 (cont.) [facility] Comment on above: Result Comment: Aver age GFR for 70 or more years old: 75 mL/min/1.73sq m Chronic Kidney Disease: <60 mL/min/1.73sq m Kidney failure: <15 mL/min/1.73sq m eGFR calculated using average adult body mass. Additional eGFR calculator available at: http://[email or web address]/multiple_crcl_2012.htm Performed By: #### L IPR, GLYHGB, PSAS #### [address] [address] [employer]forcing [employer]ter: Perico Murray MD #### CP, CDP #### [facility] [address] [place] [address] Dr. [place], [place] [phone] Reinforcing [employer]ter: Michael Méndez MD Albumin [Mass/Vol] 3.7 g/dL Normal 3.5-5.2 [facility] Comment on above: Performed By: #### L IPR, GLYHGB, PSAS #### [address] [address] Reinforcing [employer]ter: Perico Murray MD #### CP, CDP #### [address] [place] [phone] Reinforcing Bar Setter: Michael Méndez MD Albumin/Glob Ratio 1.4 Normal 1.0-2.5 [facility] Comment on above: Performed By: #### L IPR, GLYHGB, PSAS #### [address] [address] Reinforcing [employer]ter: Perico Murray MD #### CP, CDP #### [facility] [address] [place] [address] Dr. [place] [phone] Reinforcing Bar Setter: Michael Méndez MD Alkaline Phos 77 U/L Normal 40-129 [place] Comment on above: Performed By: #### L IPR, GLYHGB, PSAS #### [address] [address] Reinforcing [employer]ter: Perico Murray MD #### CP, CDP #### [facility] [address] [place], [place] [phone] Reinforcing Bar Setter: Michael Méndez MD ALT [Catalytic activity/Vol] 15 U/L Normal 5-41 [facility] Comment on above: Performed By: #### L IPR, GLYHGB, PSAS #### [address] [address] Reinforcing [employer] Setter: Perico Murray MD #### CP, CDP #### [facility] [address] [place] [phone] Reinforcing Bar Setter: Michael Méndez MD Anion gap [Moles/Vol] 11 mmol/L Normal 9-17 [facility] Comment on above: Performed By: #### L IPR, GLYHGB, PSAS #### [address] [address] Reinforcing [employer] Setter: Perico Murray MD #### CP, CDP #### [facility] [address] [place] [address] Dr. [place] [phone] Reinforcing Bar Setter: Michael Méndez MD AST [Catalytic activity/Vol] 14 U/L Normal <40 [facility] Comment on above: Performed By: #### L IPR, GLYHGB, PSAS #### [address] [address] Reinforcing [employer] Setter: Perico Murray MD #### CP, CDP #### [address] [place] [address] Reinforcing Bar Setter: Michael Méndez MD Bilirubin [Mass/Vol] 0.35 mg/dL Normal 0.3-1.2 [facility] Comment on above: Performed By: #### L IPR, GLYHGB, PSAS #### [address] [address] Reinforcing [employer]ter: Perico Murray MD #### CP, CDP #### [facility] [address] [place] [phone] Reinforcing Bar Setter: Michael Méndez MD BUN/CRE Ratio 18 Normal 9-20 [place] Comment on above: Performed By: #### L IPR, GLYHGB, PSAS #### [address] [address] Reinforcing [employer] Setter: Perico Murray MD #### CP, CDP #### [facility] [address] [place] [phone] Reinforcing Bar Setter: Michael Méndez MD Calcium [Mass/Vol] 8.8 mg/dL Normal 8.6-10.4 [facility] Comment on above: Performed By: #### L IPR, GLYHGB, PSAS #### [address] [address] Reinforcing Bar Setter: Perico Murray MD #### CP, CDP #### [facility] [address] [place], [place] [phone] Reinforcing Bar Setter: Michael Méndez MD Chloride [Moles/Vol] 102 mmol/L Normal 98-107 [facility] Comment on above: Performed By: #### L IPR, GLYHGB, PSAS #### [address] [address] [employer] Setter: Perico Murray MD #### CP, CDP #### [facility] [address] [place], [place] [id number] Reinforcing Bar Setter: Michael Méndez MD CO2 [Moles/Vol] 25 mmol/L Normal 20-31 [facility] Comment on above: Performed By: #### L IPR, GLYHGB, PSAS #### [address] [address] Reinforcing [employer] Setter: Perico Murray MD #### CP, CDP #### [address] [place], [place] [id number] Reinforcing Bar Setter: Michael Méndez MD Creatinine [Mass/Vol] 0.74 mg/dL Normal 0.70-1.20 [facility] Comment on above: Performed By: #### L IPR, GLYHGB, PSAS #### [address] [address] [employer]forcing [employer] Setter: Perico Murray MD #### CP, CDP #### [address] [place], [place] [address] Reinforcing Bar Setter: Michael Méndez MD GFR, Amer >60 Normal >60 [facility] Comment on above: Performed By: #### L IPR, GLYHGB, PSAS #### [address] [address] Reinforcing Bar Setter: Perico Murray MD #### CP, CDP #### [address] [place], [place] [phone] Reinforcing Bar Setter: Michael Méndez MD GFR,non Amer >60 Normal >60 [facility] Comment on above: Performed By: #### L IPR, GLYHGB, PSAS #### [address] [address] Reinforcing [employer] Setter: Perico Murray MD #### CP, CDP #### [address] [place], [place] [phone] Reinforcing Bar Setter: Michael Méndez MD Glucose [Mass/Vol] 182 mg/dL High 70-99 [facility] Comment on above: Performed By: #### L IPR, GLYHGB, PSAS #### [address] [address] Reinforcing [employer] Setter: Perico Murray MD #### CP, CDP #### [address] [place], [place] [address] Reinforcing Bar Setter: Michael Méndez MD Potassium [Moles/Vol] 4.3 mmol/L Normal 3.7-5.3 [facility] Comment on above: Performed By: #### L IPR, GLYHGB, PSAS #### [address] [phone] [employer] Setter: Perico Murray MD #### CP, CDP #### [address] [place], [place] [phone] Reinforcing Bar Setter: Michael Méndez MD Protein [Mass/Vol] 6.4 g/dL Normal 6.4-8.3 [facility] Comment on above: Performed By: #### L IPR, GLYHGB, PSAS #### [address] [phone] Reinforcing [employer] Setter: Perico Murray MD #### CP, CDP #### [address] [place], [place] [phone] Reinforcing Bar Setter: Michael Méndez MD Sodium [Moles/Vol] 138 mmol/L Normal 135-144 [facility] Comment on above: Performed By: #### L IPR, GLYHGB, PSAS #### [address] [phone] Reinforcing [employer] Setter: Perico Murray MD #### CP, CDP #### [address] [place] [phone] Reinforcing Bar Setter: Michael Méndez MD Staging: Normal [facility] Comment on above: Result Comment: Stag e 1: Some kidney damage normal GFR Stage 2: Mild kidney damage GFR 60-89 Stage 3: Moderate kidney damage GFR 30-59 Stage 4: Severe kidney damage GFR 15-29 Stage 5: Severe kidney damage GFR <15 ESRD - chronic treatment by dialysis or transplant Performed By: #### L IPR, GLYHGB, PSAS #### [address] [place], [place] [phone] Reinforcing Bar Setter: Perico Murray MD #### CP, CDP #### [facility] [address] [place] [address] Reinforcing Bar Setter: Michael Méndez MD Urea nitrogen [Mass/Vol] 13 mg/dL Normal 8-23 [facility] Comment on above: Performed By: #### L IPR, GLYHGB, PSAS #### [facility] [address] [place], [place] [phone] Reinforcing Bar Setter: Perico uMrray MD #### CP, CDP #### [facility] [address] [place] [address] Reinforcing Bar Setter: Michael Méndez MD Comprehensive Metabolic Pane [facility] 12-01-2021 Albumin [Mass/Vol] 3.7 g/dL 3.5 - 5.2 g/dL [facility] Albumin/Globulin [Mass ratio] 1.4 {ratio} 1 - 2.5 [facility] ALP (Bld) [Catalytic activity/Vol] 77 U/L 40 - 129 U/L [facility] ALT [Catalytic activity/Vol] 15 U/L 5 - 41 U/L [facility] Anion gap [Moles/Vol] 11 mmol/L 9 - 17 mmol/L [facility] AST [Catalytic activity/Vol] 14 U/L NINF - 40 U/L [facility] Bilirubin [Mass/Vol] 0.35 mg/dL 0.3 - 1 .2 mg/dL [facility] Calcium [Mass/Vol] 8.8 mg/dL 8.6 - 10. 4 mg/dL [facility] Chloride [Moles/Vol] 102 mmol/L 98 - 10 7 mmol/L [facility] CO2 [Moles/Vol] 25 mmol/L 20 - 31 mmol/L [facility] Creatinine [Mass/Vol] 0.74 mg/dL 0.7 - 1.2 mg/dL [facility] Free PSA/Total PSA [Mass fraction] 6.4 g/dL 6.4 - 8.3 g/dL [facility] GFR >60 60 - PI NF mL/min [facility] GFR Non- >60 60 - PINF mL/min [facility] Glucose [Mass/Vol] 182 mg/dL High 70 - 99 mg/dL [facility] Interpretation and review of laboratory results Abnormal [facility] Potassium [Moles/Vol] 4.3 mmol/L 3.7 - 5.3 mmol/L [facility] Sodium [Moles/Vol] 138 mmol/L 135 - 144 mmol/L [facility] Urea nitrogen (BldV) [Mass/Vol] 13 mg/dL 8 - 23 mg/dL [facility] Urea nitrogen/Creatinine (Bld) [Mass ratio] 18 9 - 20 [facility] Laboratory - Chemistry and C hemistry - challengeon 12-01-2021 GFR/1.73 sq M.predicted MDRD (S/P/Bld) [Vol rate/Area] [facility] Comment on above: Average GFR for 70 o r more years old: 75 mL/min/1.73sq m Chronic Kidney Disease: <60 mL/min/1.73sq m Kidney failure: <15 mL/min/1.73sq m eGFR calculated using average adult body mass. Additional eGFR calculator available at: http://www.[employer]/multiple_crcl_2012.htm Stage 1: Some kidney damage normal GFR Stage 2: Mild kidney damage GFR 60-89 Stage 3: Moderate kidney damage GFR 30-59 Stage 4: Severe kidney damage GFR 15-29 Stage 5: Severe kidney damage GFR <15 ESRD - chronic treatment by dialysis or transplant Lipid Panelon 12-01-2021 Cholesterol [Mass/Vol] 79 mg/dL NINF - 200 mg/dL [facility] Comment on above: Cholesterol Guidelines: <200 Desirable 200-240 Borderline >240 Undesirable Cholesterol in HDL [Mass/Vol] 30 mg/dL Low 40 - PINF mg/dL [facility] Comment on above: HDL Guidelines: <40 Undesirable 40-59 Borderline >59 Desirable Cholesterol in LDL [Mass/Vol] 29 mg/dL 0 - 130 mg/dL [facility] Comment on above: LDL Guidelines: <100 Desirable 100-129 Near to/above Desirable 130-159 Borderline >159 Undesirable Direct (measured) LDL and calculated LDL are not interchangeable tests. Cholesterol.total/Chol esterol in HDL [Mass ratio] 2.6 {ratio} NINF - 5 [facility] Interpretation and review of laboratory results Abnormal [facility] Triglyceride [Mass/Vol] 100 mg/dL NINF - 150 mg/dL [facility] Comment on above: Triglyceride Guidelines: <150 Desirable 150-199 Borderline 200-499 High >499 Very high Based on AHA Guidelines for fasting triglyceride, February 2012. [facility] Lipid Profileon 12-01-2021 Cholesterol [Mass/Vol] 79 mg/dL Normal <[address] [facility] Comment on above: Result Comment: Cholesterol Guidelines: <200 Desirable 200-240 Borderline >240 Undesirable Performed By: #### L IPR, GLYHGB, PSAS #### [address] [address] Reinforcing Bar Setter: Perico Murray MD #### CP, CDP #### [facility] [address] [place] [phone] Reinforcing Bar Setter: Michael Méndez MD Cholesterol in HDL [Mass/Vol] 30 mg/dL Low >40 [facility] Comment on above: Result Comment: HDL Guidelines: <40 Undesirable 40-59 Borderline >59 Desirable Performed By: #### L IPR, GLYHGB, PSAS #### [address] [address] Reinforcing Bar Setter: Perico Murray MD #### CP, CDP #### [facility] [address] [place] [phone] Reinforcing Bar Setter: Michael Méndez MD Cholesterol in LDL [Mass/Vol] 29 mg/dL Normal 0-130 [facility] Comment on above: Result Comment: LDL Guidelines: <100 Desirable 100-129 Near to/above Desirable 130-159 Borderline >159 Undesirable Direct (measured) LDL and calculated LDL are not interchangeable tests. Performed By: #### L IPR, GLYHGB, PSAS #### [address] [place] [place] [address] Reinforcing Bar Setter: Perico Murray MD #### CP, CDP #### [address] [place] [address] Reinforcing Bar Setter: Michael Méndez MD Cholesterol.total/Chol esterol in HDL [Mass ratio] 2.6 {ratio} Normal <5 [facility] Comment on above: Performed By: #### L IPR, GLYHGB, PSAS #### [address] [address] Reinforcing Bar Setter: Perico Murray MD #### CP, CDP #### [address] [place] [phone] Reinforcing Bar Setter: Michael Méndez MD Triglyceride [Mass/Vol] 100 mg/dL Normal <150 [facility] Comment on above: Result Comment: Triglyceride Guidelines: <150 Desirable 150-199 Borderline 200-499 High >499 Very high Based on AHA Guidelines for fasting triglyceride, February 2012. Performed By: #### L IPR, GLYHGB, PSAS #### [address] [address] Reinforcing Bar Setter: Perico Murray MD #### CP, CDP #### [address] [place], [place] [address]83 Reinforcing Bar Setter: Michael Méndez MD PSA Screeningon 12-01-2021 [facility] PSA, Screeningon 12-01-2021 Prostatic Spec. Ag 1.23 ng/mL Normal <4.1 [facility] Comment on above: Result Comment: The [employer] ECLIA assay is used. Results obtained with different assay methods cannot be used interchangeably. Performed By: #### L IPR, GLYHGB, PSAS #### [address] [address] Reinforcing Bar Setter: Perico Murray MD #### CP, CDP #### [facility] [address] [place] [address] Reinforcing Bar Setter: Michael Méndez MD Otolaryngology Office/Clinic Noteon 07-05-2021 [...] smoker, quit (more content not included)... Normal [facility] Otolaryngology Office/Clinic Noteon 06-14-2021 Otolaryngology Office/Clinic Note [...] bolster removed. Left FTSG with good take. [place] incision healing well. Nose: External nasal dorsum [...] 500 unit (more content not included)... Normal [facility] Operative Reporton 2 Operative Report Operative Report [...] wound defe (more content not included)... Normal [facility] POC Glucose Randomon 022 Glucose [Mass/Vol] 154 mg/dL High 70-99 [facility] Comment on above: Performed By: #### C [id number] #### [facility] [address] [place] [address] Glucose [Mass/Vol] 184 mg/dL High 70-99 [facility] Comment on above: Performed By: #### C [id number] #### [place] [address] [place] [address] Glucose [Mass/Vol] 207 mg/dL High 70-99 [facility] Comment on above: Performed By: #### C [id number] #### [address] [place] [address] CoV2 Agon 06-08-2021 Employed in healthcare? Unknown Normal [facility] Comment on above: Performed By: #### P TINR #### [address] [place] [address] Group care resident? Unknown Normal [facility] Comment on above: Performed By: #### P TINR #### [address] [place] [address] In ICU? Unknown Normal [facility] Comment on above: Performed By: #### P TINR #### [address] [place] [address] status? Unknown Normal [facility] Comment on above: Performed By: #### P TINR #### [address] [place] [address] SARS-CoV-2 (COVID-19) RNA RAYMON+probe Ql (Unsp spec) Negative Normal Negative [facility] Comment on above: Result Comment: Nega tive [...] COVID-19. ADDITIONAL INFORMATION: Testing performed on the ioBridge 3600 using the SARS-CoV-2 Antigen test. Results are for the identification of SARS-CoV-2 nucleocapsid antigen. The [employer] SARS-CoV-2 Antigen test can detect both viable [...] Administration?s Emergency Use Authorization. HCP Fact Sheet: https://www.fda.gov/media/920818/download Patient Fact Sheet: https://www.fda.gov/media/351085/download Performed By: #### P TINR #### [place] [address] SARS-CoV-2 (COVID-19) RNA RAYMON+probe Ql (Unsp spec) Unknown Normal [facility] Comment on above: Performed By: #### P TINR #### [place] [address] Symptomatic as defined by CDC? Unknown Normal [facility] Comment on above: Performed By: #### P TINR #### [place] [id number] .eGFRon 05-27-2021 eGFR Non-AA >60 Normal >=60 [facility] Comment on above: Result Comment: Stag es [...] years Performed By: #### E GFR #### [address] [address] eGFR AA >60 Normal >=60 [facility] Comment on above: Result Comment: See comment. Performed By: #### E GFR #### [address] [address] Basic Metabolic Profileon Anion gap [Moles/Vol] 13 mmol/L Normal 7-17 [facility] Comment on above: Performed By: #### P TINR #### [address] [address] Calcium [Mass/Vol] 9.0 mg/dL Normal 8.5-10.3 [facility] Comment on above: Performed By: #### P TINR #### [address] [address] Chloride [Moles/Vol] 103 mmol/L Normal 98-110 [facility] Comment on above: Performed By: #### P TINR #### [address] [address] CO2 [Moles/Vol] 26 mmol/L Normal 22-32 [facility] Comment on above: Performed By: #### P TINR #### [address] [address] Creatinine [Mass/Vol] 0.91 mg/dL Normal 0.61-1.24 [facility] Comment on above: Performed By: #### P TINR #### [address] [address] Glucose [Mass/Vol] 193 mg/dL High 70-99 [facility] Comment on above: Performed By: #### P TINR #### [address] [address] Potassium [Moles/Vol] 3.9 mmol/L Normal 3.4-4.8 [facility] Comment on above: Performed By: #### P TINR #### [address] [address] Sodium [Moles/Vol] 138 mmol/L Normal 133-142 [facility] Comment on above: Performed By: #### P TINR #### [address] [address] Urea nitrogen [Mass/Vol] 14 mg/dL Normal 8-26 [facility] Comment on above: Performed By: #### P TINR #### [address] [address] Urea nitrogen/Creatinine [Mass ratio] 15.4 mg/mg Normal 10.0-20.0 [facility] Comment on above: Performed By: #### P TINR #### [address] [address] CBC w/ Diffon 05-27-2021 Erythrocyte distribution width (RBC) [Ratio] 12.8 % Normal 11.6-14.8 [facility] Comment on above: Performed By: #### C BC #### [address] [address] Hematocrit (Bld) [Volume fraction] 42.6 % Normal 41.0-53.0 [facility] Comment on above: Performed By: #### C BC #### [address] [address] Hemoglobin (Bld) [Mass/Vol] 14.4 g/dL Normal 13.5-17.5 [facility] Comment on above: Performed By: #### C BC #### [address] [address] MCH (RBC) [Entitic mass] 30.2 pg Normal 27.0-35.0 [facility] Comment on above: Performed By: #### C BC #### [address] [address] MCHC 33.7 % Normal 31.0-37.0 [facility] Comment on above: Performed By: #### C BC #### [facility] [address] [place] [address] MCV (RBC) [Entitic vol] 89.8 fL Normal 80.0-100.0 [facility] Comment on above: Performed By: #### C BC #### [facility] [address] [place] [address] Platelet 190 x10*3/mcL Normal 150-350 [facility] Comment on above: Performed By: #### C BC #### [address] [address] Platelet mean volume (Bld) [Entitic vol] 6.7 fL Normal 6.7-10.6 [facility] Comment on above: Performed By: #### C BC #### [address] [address] RBC 4.75 x10*6/mcL Normal 4.30-5.80 [facility] Comment on above: Performed By: #### C BC #### [address] [address] WBC 7.7 x10*3/mcL Normal 4.5-11.0 [facility] Comment on above: Performed By: #### C BC #### [address] [address] Diff Autoon 05-27-2021 Baso Absolute 0.0 x10*3/mcL Normal 0.0-0.2 [facility] Comment on above: Performed By: #### P TINR #### [address] [address] Basophils/100 WBC (Bld) 0.1 % Normal 0.0-1.2 [facility] Comment on above: Performed By: #### P TINR #### [address] [address] Eos Absolute 0.1 x10*3/mcL Normal 0.0-0.4 [facility] Comment on above: Performed By: #### P TINR #### [address] [address] Eosinophils/100 WBC (Bld) 0.7 % Normal 0.0-6.1 [facility] Comment on above: Performed By: #### P TINR #### [address] [address] Lymph Absolute 2.1 x10*3/mcL Normal 1.0-4.8 [facility] Comment on above: Performed By: #### P TINR #### [address] [address] Lymphocytes/100 WBC (Bld) 26.7 % Low 27.2-40.8 [facility] Comment on above: Performed By: #### P TINR #### [address] [address] [place] Absolute 0.6 x10*3/mcL Normal 0.3-1.1 [facility] Comment on above: Performed By: #### P TINR #### [address] [address] Monocytes/100 WBC (Bld) 7.9 % Normal 4.7-13.9 [facility] Comment on above: Performed By: #### P TINR #### [address] [address] Neutro Absolute 5.0 x10*3/mcL Normal 1.8-7.7 [facility] Comment on above: Performed By: #### P TINR #### [address] [address] Neutro Auto 64.6 % Normal 47.2-70.8 [facility] Comment on above: Performed By: #### P TINR #### [address] [address] Hgb A1con 05-27-2021 Glucose [Mass/Vol] 192 mg/dL High 68-114 [facility] Comment on above: Result Comment: Math ematical Calc approx. The mean gluc equivalency of A1c Performed By: #### P TINR #### [address] [address] Hgb A1c 8.3 % A1c High 4.0-5.6 [facility] Comment on above: Result Comment: Refe rence Range: 4.0 - 5.6 % Normal 5.7 - 6.4 % Pre-Diabetes > 6.5 % Diabetes Performed By: #### P TINR #### [address] [address] PTon 05-27-2021 INR Coag (PPP) [Relative time] 1.1 {INR} Normal <=3.5 [facility] Comment on above: Result Comment: INR has no normal range. INR Therapeutic range is: 2.0-3.0 (AF, CVA, TIAs, DVT prophylaxis, acute DVT) 2.5-3.5 ([facility] heart valves, recurrent thrombosis/emboli) Performed By: #### P TINR #### [address] [address] PT Coag (PPP) [Time] 11.3 s Normal 9.4-12.1 [facility] Comment on above: Performed By: #### P TINR #### [address] [address] PTTon 05-27-2021 aPTT Coag (Bld) [Time] 22.5 s Normal 20.2-27.0 [facility] Comment on above: Performed By: #### P TT #### [address] [address] XR Chest 2 Viewson 2 XR Chest [...] Electronically Signed in Other Vendor System) Normal [facility] Otolaryngology Office/Clinic Noteon 05-19-2021 Otolaryngology Office/Clinic Note [...] Villagomez MD, Chi 05/19/21 15:56 EST Normal [facility] CBC Auto DifferentialOrdered By: Mary Beth Pitts on 09-27-2020 Absolute Eos # 0.04 [facility] Work Phone: Absolute Immature Granulocyte 0.04 [employer] Work Phone: [facility] Lymph # 2.63 [facility] Work Phone: [facility] [place] # 0.68 [facility] Work Phone: Basophils (Bld) [#/Vol] 10*3/uL [employer] Phone: Basophils/100 WBC (Bld) 0 % 0 - 2 % [employer] Phone: Differential Type NOT REPORTED [employer] Phone: Eosinophils/100 WBC (Bld) 0 % Low 1 - 4 % [employer] Phone: Hematocrit (Bld) [Volume fraction] 36.8 % Low 40.7 - 50.3 % [employer] Phone: Hemoglobin.gastrointes tinal spec 1 Ql (Stl) 11.7 g/dL Low 13.0 - 17.0 g/dL [employer] Phone: Immature granulocytes/100 WBC (Bld) 0 % 0 [employer] Phone: Interpretation and review of laboratory results Abnormal [employer] Phone: Lymphocytes/100 WBC (Bld) 27 % 24 - 43 % [employer] Phone: MCH (RBC) [Entitic mass] 30.2 pg 25.2 - 33.5 pg [employer] Phone: MCHC (RBC) [Mass/Vol] 31.8 g/dL 28.4 - 34.8 g/dL [employer] Phone: MCV (RBC) [Entitic vol] 95.1 fL 82.6 - 102.9 fL [employer] Phone: Monocytes/100 WBC (Bld) 7 % 3 - 12 % [employer] Phone: NRBC Automated 0.0 0.0 per 100 WBC [employer] Phone: Platelet distribution width (Bld) [Ratio] 13.5 % 11.8 - 14.4 % [employer] Phone: Platelet Estimate NOT REPORTED [employer] Phone: Platelet mean volume (Bld) [Entitic vol] 8.7 fL 8.1 - 13.5 fL [employer] Phone: Platelets (Bld) [#/Vol] 243 10*3/uL [employer] Phone: RBC (Bld) [#/Vol] 3.87 10*6/uL Low 4.21 - 5.7 7 m/uL [employer] Phone: RBC (Bld) [#/Vol] NOT REPORTED [employer] Phone: Segmented neutrophils/100 WBC (Bld) 66 % High 36 - 65 % [employer] Phone: Segs Absolute 6.35 [employer] Work Phone: WBC (Bld) [#/Vol] 9.8 10*3/uL [employer] Phone: WBC (Bld) [#/Vol] NOT REPORTED [employer] Work Phone: [employer] Work Phone: TIBIA FIBULA LEFTon 04-28-20 20 TIBIA FIBULA LEFT [facility] Department of Radiology [address] [place] [phone] == Patient Name: MARILU DAN : [...] bridging. Electronically signed: Terry Diaz. Transcribed by: [email or web address], User Resident: Electronically Signed by: TERRY DIAZ @ 04/29/2020 01:11 PM Normal [facility] Comment on above: Order Comment: Hardw are Evaluation TIBIA FIBULA LEFTon 03-29-20 20 TIBIA FIBULA LEFT [facility] Department of Radiology [address] [place] [phone] == Patient Name: MARILU DAN : [...] Electronically signed: Katiuska Mo M.D.. Transcribed by: [email or web address], User Resident: Electronically Signed by: KATIUSKA MO @ 03/29/2020 01:27 PM Normal [facility] Comment on above: Order Comment: Hardw are Evaluation TIBIA FIBULA LEFTon 02-23-20 20 TIBIA FIBULA LEFT [facility] Department of Radiology [address] [place] [phone] == Patient Name: MARILU DAN : [...] Electronically signed: Mary Jane Pendleton. Transcribed by: [email or web address], User Resident: Electronically Signed by: MARY JANE PENDLETON @ 02/23/2020 09:46 AM Normal [facility] Comment on above: Order Comment: Hardw are Evaluation VITAMIN D 25-HYDROXYon 02-22 VITAMIN D 25-OH 31.6 ng/mL Normal 30.0-80.0 [facility] Comment on above: Result Comment: >80. 0 Toxicity possible Performed By: #### 3 0728 ####[facility] [place] [address], [facility] BASIC METABOLIC PANELon 10 Calcium [Mass/Vol] 8.7 mg/dL Normal 8.6-10.3 [facility] Comment on above: Order Comment: No: D o not add to previous draw Performed By: #### 8 6002 #### [facility] [address] [facility] [place] [place] [address], [facility] Chloride [Moles/Vol] 103 mmol/L Normal 98-107 [facility] Comment on above: Order Comment: No: D o not add to previous draw Performed By: #### 8 6002 #### [facility] [address] [facility] [place] [address], [facility] CO2 [Moles/Vol] 25 mmol/L Normal 21-31 [facility] Comment on above: Order Comment: No: D o not add to previous draw Performed By: #### 8 6002 #### [facility] [address] [place] [address], [facility] Creatinine [Mass/Vol] 0.72 mg/dL Normal 0.70-1.30 [facility] Comment on above: Order Comment: No: D o not add to previous draw Performed By: #### 8 6002 #### [facility] [address] [place] [address], [place] GFR/1.73 sq M predicted among blacks MDRD (S/P/Bld) [Vol rate/Area] mL/min/{1.73_m2} Normal >60 [facility] Comment on above: Order Comment: No: D o not add to previous draw Result Comment: Calc ulation may not be valid for patients over 70 years Performed By: #### 8 6002 #### [facility] [address] [place] [address], [place] GFR/1.73 sq M predicted among non-blacks MDRD (S/P/Bld) [Vol rate/Area] mL/min/{1.73_m2} Normal >60 [facility] Comment on above: Order Comment: No: D o not add to previous draw Result Comment: Calc ulation may not be valid for patients over 70 years Performed By: #### 8 6002 #### [facility] [address] [place] [address], [place] Glucose [Mass/Vol] 178 mg/dL High 70-100 [facility] Comment on above: Order Comment: No: D o not add to previous draw Performed By: #### 8 6002 #### [facility] [address] [place] [address], [place] Potassium [Moles/Vol] 4.2 mmol/L Normal 3.5-5.1 [facility] Comment on above: Order Comment: No: D o not add to previous draw Performed By: #### 8 6002 #### [facility] [address] [place] [address], [place] Sodium [Moles/Vol] 136 mmol/L Normal 136-145 [facility] Comment on above: Order Comment: No: D o not add to previous draw Performed By: #### 8 6002 #### [facility] [address] [place] [address], [place] Urea nitrogen [Mass/Vol] 14 mg/dL Normal 7-25 [facility] Comment on above: Order Comment: No: D o not add to previous draw Performed By: #### 8 6002 #### [facility] [address] [place] [id number], [facility] CBC COMPLETE BLOOD COUNTon Erythrocyte distribution width (RBC) [Ratio] 12.3 % Normal 11.5-15.0 [facility] Comment on above: Order Comment: No: D o not add to previous draw Performed By: #### 8 6002 #### [facility] [address] [place] [address], [facility] Hematocrit (Bld) [Volume fraction] 30.8 % Low 39.0-50.0 [facility] Comment on above: Order Comment: No: D o not add to previous draw Performed By: #### 8 6002 #### [facility] [address] [place] [id number], [facility] Hemoglobin (Bld) [Mass/Vol] 10.6 g/dL Low 13.0-17.0 [facility] Comment on above: Order Comment: No: D o not add to previous draw Performed By: #### 8 6002 #### [facility] [address] [place] [id number], [facility] MCH (RBC) [Entitic mass] 30.3 pg Normal 27.0-33.0 [facility] Comment on above: Order Comment: No: D o not add to previous draw Performed By: #### 8 [id number] #### [facility] [address] [place] [id number], [facility] MCHC (RBC) [Mass/Vol] 34.4 g/dL Normal 32.0-35.0 [facility] Comment on above: Order Comment: No: D o not add to previous draw Performed By: #### 8 6002 #### [facility] [address] [place] [address], [facility] MCV (RBC) [Entitic vol] 88.0 fL Normal 82.0-98.0 [facility] Comment on above: Order Comment: No: D o not add to previous draw Performed By: #### 8 6002 #### [facility] [address] [place] [id number], [facility] Nucleated RBC/100 WBC (Bld) [Ratio] 0 % Normal 0-0 [facility] Comment on above: Order Comment: No: D o not add to previous draw Performed By: #### 8 6002 #### [facility] [address] [place] [id number], [place] PLAT CNT 153 10*3/uL Normal 150-400 [facility] Comment on above: Order Comment: No: D o not add to previous draw Performed By: #### 8 6002 #### [facility] [address] [place] [id number], [facility] RBC (Bld) [#/Vol] 3.50 10*6/uL Low 4.20-5.70 [facility] Comment on above: Order Comment: No: D o not add to previous draw Performed By: #### 8 6002 #### [facility] [address] [place] [id number], [place] WBC (Bld) [#/Vol] 8.11 10*3/uL Normal 4.00-10.60 [facility] Comment on above: Order Comment: No: D o not add to previous draw Performed By: #### 8 6002 #### [facility] [address] [place] [id number], [facility] Operative Reporton 0 Operative Report MR#: [id number] I [facility] Pt. Name: Marilu Dan Room #: 3AB [id number] Discharge Date: Birthdate: 1950 OPERATIVE REPORT DATE [...] a 69-year-old male, who initially presented to [facility] Emergency Department with chief complaint [...] 2 locking screws distally using freehand perfect [place] technique. After the placement of all interlocking [...] Lopez MD Date Trans: 02/14/2020 11:08 A/gomez [id number] Normal [facility] POC GLUCOSE LABon 02-14-2020 Glucose [Mass/Vol] 228 mg/dL High 70-100 [facility] Comment on above: Performed By: #### 8 [id number] #### [facility] [address] [facility] [place] [address], [facility] Glucose [Mass/Vol] 169 mg/dL High 70-100 [facility] Comment on above: Performed By: #### 8 [id number] #### [facility] [address] [facility]. [address] *MRSA/MSSA DNA NASALon 02-12 *MRSA/MSSA DNA NASAL Clinical Report: (D ) Specimen/Source: NASAL SWAB/NARES Collected: 02/13/2020 14:23 Status: Final Last Updated: 02/17/2020 12:22 MSSA DNA (Final) Negative MRSA DNA (Final) Negative Normal [facility] Comment on above: Performed By: #### 3 1595 #### [facility] [address] [facility] [place] [address], [facility] BASIC METABOLIC PANELon Calcium [Mass/Vol] 9.2 mg/dL Normal 8.6-10.3 [facility] Comment on above: Order Comment: No: D o not add to previous draw Performed By: #### 8 [id number] #### [facility] [address] [place] [address], [facility] Chloride [Moles/Vol] 102 mmol/L Normal 98-107 [facility] Comment on above: Order Comment: No: D o not add to previous draw Performed By: #### 8 5499 #### [facility] [address] [place] [address], [place] CO2 [Moles/Vol] 29 mmol/L Normal 21-31 [facility] Comment on above: Order Comment: No: D o not add to previous draw Performed By: #### 8 5499 #### [facility] [address] [place] [address], [place] Creatinine [Mass/Vol] 0.71 mg/dL Normal 0.70-1.30 [facility] Comment on above: Order Comment: No: D o not add to previous draw Performed By: #### 8 5499 #### [facility] [address] [place] [address], [place] GFR/1.73 sq M predicted among blacks MDRD (S/P/Bld) [Vol rate/Area] mL/min/{1.73_m2} Normal >60 [facility] Comment on above: Order Comment: No: D o not add to previous draw Result Comment: Calc ulation may not be valid for patients over 70 years Performed By: #### 8 5499 #### [facility] [address] [place] [address], [place] GFR/1.73 sq M predicted among non-blacks MDRD (S/P/Bld) [Vol rate/Area] mL/min/{1.73_m2} Normal >60 [facility] Comment on above: Order Comment: No: D o not add to previous draw Result Comment: Calc ulation may not be valid for patients over 70 years Performed By: #### 8 [id number] #### [facility] [address] [place] [address], [place] Glucose [Mass/Vol] 160 mg/dL High 70-100 [facility] Comment on above: Order Comment: No: D o not add to previous draw Performed By: #### 8 5499 #### [facility] [address] [place] [address], [place] Potassium [Moles/Vol] 4.0 mmol/L Normal 3.5-5.1 [facility] Comment on above: Order Comment: No: D o not add to previous draw Performed By: #### 8 5499 #### [facility] [address] [place] [address], [place] Sodium [Moles/Vol] 136 mmol/L Normal 136-145 [facility] Comment on above: Order Comment: No: D o not add to previous draw Performed By: #### 8 5499 #### [facility] [address] [place] [address], [facility] Urea nitrogen [Mass/Vol] 13 mg/dL Normal 7-25 [facility] Comment on above: Order Comment: No: D o not add to previous draw Performed By: #### 8 5499 #### [facility] [address] [place] [address], [facility] CBC COMPLETE BLOOD COUNTon Erythrocyte distribution width (RBC) [Ratio] 12.4 % Normal 11.5-15.0 [facility] Comment on above: Order Comment: No: D o not add to previous draw Performed By: #### 8 6002 #### [facility] [address] [place] [address], [place] Hematocrit (Bld) [Volume fraction] 37.6 % Low 39.0-50.0 [facility] Comment on above: Order Comment: No: D o not add to previous draw Performed By: #### 8 6002 #### [facility] [address] [place] [address], [place] Hemoglobin (Bld) [Mass/Vol] 12.8 g/dL Low 13.0-17.0 [facility] Comment on above: Order Comment: No: D o not add to previous draw Performed By: #### 8 6002 #### [facility] [address] [place] [address], [place] MCH (RBC) [Entitic mass] 30.1 pg Normal 27.0-33.0 [facility] Comment on above: Order Comment: No: D o not add to previous draw Performed By: #### 8 6002 #### [facility] [address] [place] [id number], [facility] MCHC (RBC) [Mass/Vol] 34.0 g/dL Normal 32.0-35.0 [facility] Comment on above: Order Comment: No: D o not add to previous draw Performed By: #### 8 6002 #### [facility] [address] [place] [id number], [facility] MCV (RBC) [Entitic vol] 88.5 fL Normal 82.0-98.0 [facility] Comment on above: Order Comment: No: D o not add to previous draw Performed By: #### 8 6002 #### [facility] [address] [place] [address], [facility] Nucleated RBC/100 WBC (Bld) [Ratio] 0 % Normal 0-0 [facility] Comment on above: Order Comment: No: D o not add to previous draw Performed By: #### 8 6002 #### [facility] [address] [place] [id number], [place] PLAT CNT 180 10*3/uL Normal 150-400 [facility] Comment on above: Order Comment: No: D o not add to previous draw Performed By: #### 8 6002 #### [facility] [address] [place] [id number], [facility] RBC (Bld) [#/Vol] 4.25 10*6/uL Normal 4.20-5.70 [facility] Comment on above: Order Comment: No: D o not add to previous draw Performed By: #### 8 6002 #### [facility] [address] [place] [address], [facility] WBC (Bld) [#/Vol] 7.58 10*3/uL Normal 4.00-10.60 [facility] Comment on above: Order Comment: No: D o not add to previous draw Performed By: #### 8 6002 #### [facility] [address] [place] [address], [place] MAGNESIUM BLOODon 02-13-2020 Magnesium [Mass/Vol] 2.0 mg/dL Normal 1.9-2.7 [facility] Comment on above: Order Comment: No: D o not add to previous draw Performed By: #### 8 5499 #### [facility] [address] [place] [address], [place] PHOSPHORUS BLOODon 0 Phosphate [Mass/Vol] 3.6 mg/dL Normal 2.5-5.0 [facility] Comment on above: Order Comment: No: D o not add to previous draw Performed By: #### 8 [id number] #### [facility] [address] [place] [address], [place] POC GLUCOSE LABon 02-13-2020 Glucose [Mass/Vol] 176 mg/dL High 70-100 [facility] Comment on above: Performed By: #### 8 5499 #### [facility] [address] [place] [address], [place] Glucose [Mass/Vol] 134 mg/dL High 70-100 [facility] Comment on above: Performed By: #### 8 5499 #### [facility] [address] [place] [address], [place] Glucose [Mass/Vol] 138 mg/dL High 70-100 [facility] Comment on above: Performed By: #### 8 5499 #### [facility] [address] [place] [address], [place] Glucose [Mass/Vol] 143 mg/dL High 70-100 [facility] Comment on above: Performed By: #### 8 5499 #### [facility] [address] Glucose [Mass/Vol] 163 mg/dL High 70-100 [facility] Comment on above: Performed By: #### 8 5499 #### [address] [address] TIBIA FIBULA LEFTon 02-13-20 20 TIBIA FIBULA LEFT [facility] Department of Radiology [address] [place] [phone] == Patient Name: MARILU DAN : 1950 Sex: M Age: Race: White Pt. Location: [id number] Patient Status: I Ordered Date: 02/13/2020 8:00:00 [...] fracture. Electronically signed: Catalina Pastrana. Transcribed by: [email or web address], User Resident: Electronically Signed by: CATALINA PASTRANA @ 02/13/2020 09:09 PM Normal [facility] Comment on above: Order Comment: Hardw are Evaluation TIBIA FIBULA LEFT [facility] Department of Radiology [address] [place] [phone] == Patient Name: MARILU DAN : 1950 Sex: M Age: Race: White Pt. Location: [address] [place] [address] Patient Status: I Ordered Date: 02/13/2020 7:15:00 [...] review. Electronically signed: Catalina Pastrana. Transcribed by: [email or web address], User Resident: Electronically Signed by: CATALINA PASTRANA @ 02/13/2020 09:12 PM Normal [facility] Comment on above: Order Comment: Hardw are Evaluation *SARS-CoV-2 COVID-19on 02-11 [id number] Not Detected Normal Not Detected [facility] Comment on above: Order Comment: The A ptima SARS-CoV-2 assay is a nucleic acid amplification test intended for the qualitative detection of RNA from SARS-CoV-2 isolated and purified from nasopharyngeal (CARPENTRY SUPERVISOR),oropharyngeal (OP), nasal swab, sputum, and bronchoalveolar lavage (BAL) specimens from patients with signs and symptoms of infection who are suspected of COVID-19. Results are for the identification of SARS-CoV-2 RNA. The SARS-CoV-2 RNA is generally detectable during the acute phase of infection. The Aptima SARS-CoV-2 Assay on the [employer] system is intended for use by laboratory personnel specifically instructed and trained in the operation of the [place] and [employer] Fusion system. The Aptima SARS-CoV-2 assay is [...] information. Performed By: #### 3 1792 #### [facility] [address] [place] [address], [facility] APTTon 02-12-2020 aPTT Coag (Bld) [Time] 27.0 s Normal 25.0-35.0 Th e [facility] Comment on above: Order Comment: No: D [...] PURPOSE. Performed By: #### 8 5499 #### [facility] [address] [facility]. [address] BASIC METABOLIC PANELon 10-0 Calcium [Mass/Vol] 9.0 mg/dL Normal 8.6-10.3 [facility] Comment on above: Order Comment: No: D o not add to previous draw Performed By: #### 4 1000, 39890, 93258, 68513 ####[facility] [facility].[address] Chloride [Moles/Vol] 100 mmol/L Normal 98-107 [facility] Comment on above: Order Comment: No: D o not add to previous draw Performed By: #### 4 1000, 25290, 09887, 06931 ####[facility] [facility].[address] CO2 [Moles/Vol] 26 mmol/L Normal 21-31 [facility] Comment on above: Order Comment: No: D o not add to previous draw Performed By: #### 4 1000, 22812, 73795, 83525 ####[facility] [facility].[address] Creatinine [Mass/Vol] 0.80 mg/dL Normal 0.70-1.30 [facility] Comment on above: Order Comment: No: D o not add to previous draw Performed By: #### 4 1000, 46033, 27530, 20746 ####[facility] [facility].[address] GFR/1.73 sq M predicted among blacks MDRD (S/P/Bld) [Vol rate/Area] mL/min/{1.73_m2} Normal >60 [facility] Comment on above: Order Comment: No: D o not add to previous draw Result Comment: Calc ulation may not be valid for patients over 70 years Performed By: #### 4 1000, 89811, 88421, 92611 ####[facility] [facility] [place] [address], [facility] GFR/1.73 sq M predicted among non-blacks MDRD (S/P/Bld) [Vol rate/Area] mL/min/{1.73_m2} Normal >60 [facility] Comment on above: Order Comment: No: D o not add to previous draw Result Comment: Calc ulation may not be valid for patients over 70 years Performed By: #### 4 1000, 91929, 91434, 22197 ####[facility] [facility] [place] [address], [facility] Glucose [Mass/Vol] 193 mg/dL High 70-100 [facility] Comment on above: Order Comment: No: D o not add to previous draw Performed By: #### 4 1000, 07637, 72993, 71151 ####[facility] [facility] [place] [address], [facility] Potassium [Moles/Vol] 4.2 mmol/L Normal 3.5-5.1 [facility] Comment on above: Order Comment: No: D o not add to previous draw Performed By: #### 4 1000, 53355, 66753, 08641 ####[facility] [facility] [place] [address], [facility] Sodium [Moles/Vol] 132 mmol/L Low 136-145 [facility] Comment on above: Order Comment: No: D o not add to previous draw Performed By: #### 4 1000, 63028, 81876, 85443 ####[facility] [facility] [place] [address], [facility] Urea nitrogen [Mass/Vol] 14 mg/dL Normal 7-25 [facility] Comment on above: Order Comment: No: D o not add to previous draw Performed By: #### 4 1000, 63792, 29261, 05364 ####[facility] CBC W/DIFFon 02-12-2020 ABS BASOPHILS 0.0 10*3/uL Normal 0.0-0.2 [facility] Comment on above: Performed By: #### 8 5499 #### [facility] [address] [facility] [place] [address], [facility] ABS IMM GRANS 0.1 10*3/uL Normal 0.0-0.2 [facility] Comment on above: Performed By: #### 8 5499 #### [facility] [address] ABS NEUTROPHILS 9.8 10*3/uL High 1.6-7.6 [facility] Comment on above: Performed By: #### 8 5499 #### [facility] [address] Basophils/100 WBC (Bld) 0.1 % Normal 0.0-1.0 [facility] Comment on above: Performed By: #### 8 5499 #### [facility] [address] [place] [address], [facility] Eosinophils (Bld) [#/Vol] 0.0 10*3/uL Normal 0.0-0.5 [facility] Comment on above: Performed By: #### 8 5499 #### [facility] [address] [facility] [place] [address], [facility] Eosinophils/100 WBC (Bld) 0.1 % Normal 0.0-6.0 [facility] Comment on above: Performed By: #### 8 5499 #### [facility] [address] Erythrocyte distribution width (RBC) [Ratio] 12.0 % Normal 11.5-15.0 [facility] Comment on above: Performed By: #### 8 5499 #### [facility] [address] [place] [address], [facility] Hematocrit (Bld) [Volume fraction] 38.0 % Low 39.0-50.0 [facility] Comment on above: Performed By: #### 8 5499 #### [facility] [address] [place] [address], [facility] Hemoglobin (Bld) [Mass/Vol] 13.0 g/dL Normal 13.0-17.0 [facility] Comment on above: Performed By: #### 8 5499 #### [facility] [address] [facility] [place] [address], [facility] IMMATURE GRANS 0.5 % Normal 0.0-1.0 [facility] Comment on above: Performed By: #### 8 5499 #### [facility] [address] [facility] [place] [address], [facility] Lymphocytes (Bld) [#/Vol] 1.3 10*3/uL Normal 1.2-4.0 [facility] Comment on above: Performed By: #### 8 5499 #### [facility] [address] [facility] [place] [address], [facility] Lymphocytes/100 WBC (Bld) 11.1 % Low 20.0-45.0 [facility] Comment on above: Performed By: #### 8 5499 #### [facility] [address] [facility] [place] [address], [facility] MCH (RBC) [Entitic mass] 30.0 pg Normal 27.0-33.0 [facility] Comment on above: Performed By: #### 8 5499 #### [facility] [address] [facility] [place] [address], [facility] MCHC (RBC) [Mass/Vol] 34.2 g/dL Normal 32.0-35.0 [facility] Comment on above: Performed By: #### 8 5499 #### [facility] [address] [place] [address], [facility] MCV (RBC) [Entitic vol] 87.8 fL Normal 82.0-98.0 [facility] Comment on above: Performed By: #### 8 5499 #### [facility] [address] [place] [address], [facility] Monocytes (Bld) [#/Vol] 0.9 10*3/uL Normal 0.1-1.0 [facility] Comment on above: Performed By: #### 8 5499 #### [facility] [address] [place] [id number], [facility] MONOS 7.1 % Normal 5.0-12.0 [facility] Comment on above: Performed By: #### 8 5499 #### [facility] [address] [place] [address], [facility] Neutrophils/100 WBC (Bld) 81.1 % High 40.0-72.0 [facility] Comment on above: Performed By: #### 8 5499 #### [facility] [address] [facility] [place] [address], [facility] Nucleated RBC/100 WBC (Bld) [Ratio] 0 % Normal 0-0 [facility] Comment on above: Performed By: #### 8 [id number] #### [facility] [address] [place] [address], [facility] PLAT CNT 204 10*3/uL Normal 150-400 [facility] Comment on above: Performed By: #### 8 [id number] #### [facility] [address] [place] [address], [facility] RBC (Bld) [#/Vol] 4.33 10*6/uL Normal 4.20-5.70 [facility] Comment on above: Performed By: #### 8 5499 #### [facility] [address] [place] [address], [facility] WBC (Bld) [#/Vol] 12.03 10*3/uL High 4.00-10.60 [facility] Comment on above: Performed By: #### 8 5499 #### [address] LOWER EXTREMITY WO CONTRA ST LEFTon 02-12-2020 CT LOWER EXTREMITY WO CONTRAST LEFT [facility] Department of Radiology [address] [place] [phone] == Patient Name: MARILU DAN : 1950 Sex: M Age: Race: White Pt. Location: [id number] Patient Status: I Ordered Date: 02/12/2020 6:00:00 [...] metatarsals. Electronically signed: Kwaku Gupta. Transcribed by: [email or web address], User Resident: Electronically Signed by: KWAKU GUPTA @ 02/12/2020 06:34 PM Normal [facility] Comment on above: Order Comment: Hardw are Evaluation LIVER BATTERYon 02-12-2020 Albumin [Mass/Vol] 3.9 g/dL Normal 3.5-5.7 [facility] Comment on above: Order Comment: No: D o not add to previous draw Performed By: #### 4 1000, 04539, 17010, 55779 ####[facility] [facility].[address] ALKALINE PHOSPH 64 IU/L Normal 34-104 [facility] Comment on above: Order Comment: No: D o not add to previous draw Performed By: #### 4 1000, 50725, 47874, 76607 ####[facility] [facility].[address] ALT [Catalytic activity/Vol] 10 U/L Normal 7-52 [facility] Comment on above: Order Comment: No: D o not add to previous draw Performed By: #### 4 1000, 63820, 71978, 33364 ####[facility] AST [Catalytic activity/Vol] 13 U/L Normal 13-39 [facility] Comment on above: Order Comment: No: D o not add to previous draw Performed By: #### 4 1000, 22863, 61103, 91005 ####[facility] [place] [address], [facility] Bilirubin [Mass/Vol] 0.5 mg/dL Normal 0.3-1.0 [facility] Comment on above: Order Comment: No: D o not add to previous draw Performed By: #### 4 1000, 71701, 38920, 45361 ####[facility] [facility] Bilirubin.direct [Mass/Vol] 0.1 mg/dL Normal 0.0-0.2 [facility] Comment on above: Order Comment: No: D o not add to previous draw Performed By: #### 4 1000, 19530, 75225, 88188 ####[facility] [facility] [place] [address], [facility] Protein [Mass/Vol] 6.3 g/dL Normal 6.0-8.3 [facility] Comment on above: Order Comment: No: D o not add to previous draw Performed By: #### 4 1000, 65421, 69145, 89585 ####[facility] [place] [address], [facility] MAGNESIUM BLOODon 02-12-2020 Magnesium [Mass/Vol] 1.8 mg/dL Low 1.9-2.7 [facility] Comment on above: Order Comment: No: D o not add to previous draw Performed By: #### 4 1000, 82638, 98385, 15791 ####[facility] [place] [address], [facility] PHOSPHORUS BLOODon 0 Phosphate [Mass/Vol] 3.4 mg/dL Normal 2.5-5.0 [facility] Comment on above: Order Comment: No: D o not add to previous draw Performed By: #### 4 1000, 07426, 04597, 31378 ####[facility] [facility] [place] [address], [facility] POC GLUCOSE LABon 02-12-2020 Glucose [Mass/Vol] 285 mg/dL High 70-100 [facility] Comment on above: Performed By: #### 8 5499 #### [facility] [address] [facility] [place] [address], [facility] PROTHROMBIN TIMEon 0 INR Coag (PPP) [Relative time] 1.36 {INR} High 0.91-1.16 [facility] Comment on above: Order Comment: No: D [...] 1995;108:231S-246S. Performed By: #### 8 5499 #### [facility] [address] [place] [address], [facility] PT Coag (PPP) [Time] 16.9 s High 12.3-14.8 [facility] Comment on above: Order Comment: No: D o not add to previous draw Result Comment: ALL RESULTS MUST BE INTERPRETED WITH RESPECT TO BLOOD DRAWING ARTIFACT OR DILUTION ERROR OF ANTICOAGULANT AT THE TIME OF SAMPLING. Performed By: #### 8 5499 #### [address] [address], [facility] TIBIA FIBULA LEFT 02-12-20 20 TIBIA FIBULA LEFT [facility] Department of Radiology [address] [place] [id number] == Patient Name: MARILU DAN : 1950 Sex: M Age: Race: White Pt. Location: [address] [place] [address] Patient Status: I Ordered Date: 02/12/2020 5:30:00 [...] above. Electronically signed: Kwaku Gupta. Transcribed by: [email or web address], User Resident: Electronically Signed by: KWAKU GUPTA @ 02/12/2020 06:13 PM Normal [facility] Comment on above: Order Comment: Hardw are Evaluation TYPE AND SCREENon 02-12-2020 ABO INTERPRETATION A Normal [facility] Comment on above: Performed By: #### 6 2586 ####[facility] [facility], [place] [id number] [place] [address] RH INTERPRETATION Positive Normal [facility] Comment on above: Performed By: #### 6 2586 ####[facility] [facility], [place] [id number] [place] [address] CBC COMPLETE BLOOD COUNTon 0 11-05-2019 Erythrocyte distribution width (RBC) [Ratio] 11.9 % Normal 11.5-15.0 [facility] Comment on above: Order Comment: No: D o not add to previous draw Performed By: #### 8 5499 #### [facility] [address] [place] [address], [facility] Hematocrit (Bld) [Volume fraction] 37.2 % Low 39.0-50.0 [facility] Comment on above: Order Comment: No: D o not add to previous draw Performed By: #### 8 5499 #### [facility] [address] [place] [address], [place] Hemoglobin (Bld) [Mass/Vol] 12.6 g/dL Low 13.0-17.0 [facility] Comment on above: Order Comment: No: D o not add to previous draw Performed By: #### 8 5499 #### [facility] [address] [place] [address], [place] MCH (RBC) [Entitic mass] 30.4 pg Normal 27.0-33.0 [facility] Comment on above: Order Comment: No: D o not add to previous draw Performed By: #### 8 5499 #### [facility] [address] [place] [address], [facility] MCHC (RBC) [Mass/Vol] 33.9 g/dL Normal 32.0-35.0 [facility] Comment on above: Order Comment: No: D o not add to previous draw Performed By: #### 8 5499 #### [facility] [address] [place] [address], [facility] MCV (RBC) [Entitic vol] 89.6 fL Normal 82.0-98.0 [facility] Comment on above: Order Comment: No: D o not add to previous draw Performed By: #### 8 5499 #### [facility] [address] [place] [address], [facility] Nucleated RBC/100 WBC (Bld) [Ratio] 0 % Normal 0-0 [facility] Comment on above: Order Comment: No: D o not add to previous draw Performed By: #### 8 5499 #### [facility] [address] [place] [address], [facility] PLAT CNT 155 10*3/uL Normal 150-400 [facility] Comment on above: Order Comment: No: D o not add to previous draw Performed By: #### 8 5499 #### [facility] [address] [place] [address], [facility] RBC (Bld) [#/Vol] 4.15 10*6/uL Low 4.20-5.70 [facility] Comment on above: Order Comment: No: D o not add to previous draw Performed By: #### 8 5499 #### [facility] [address] [place] [address], [facility] WBC (Bld) [#/Vol] 7.44 10*3/uL Normal 4.00-10.60 [facility] Comment on above: Order Comment: No: D o not add to previous draw Performed By: #### 8 5499 #### [facility] [address] [place] [address], [place] COMP METABOLIC PANELon 11-04 Albumin [Mass/Vol] 3.3 g/dL Low 3.5-5.7 [facility] Comment on above: Order Comment: No: D o not add to previous draw Performed By: #### 8 6002 #### [facility] [address] [place] [address], [place] ALKALINE PHOSPH 55 IU/L Normal 34-104 [facility] Comment on above: Order Comment: No: D o not add to previous draw Performed By: #### 8 6002 #### [facility] [address] [place] [address], [place] ALT [Catalytic activity/Vol] 12 U/L Normal 7-52 [facility] Comment on above: Order Comment: No: D o not add to previous draw Performed By: #### 8 6002 #### [facility] [address] [place] [address], [place] AST [Catalytic activity/Vol] 15 U/L Normal 13-39 [facility] Comment on above: Order Comment: No: D o not add to previous draw Performed By: #### 8 6002 #### [facility] [address] [place] [address], [place] Bilirubin [Mass/Vol] 0.6 mg/dL Normal 0.3-1.0 [facility] Comment on above: Order Comment: No: D o not add to previous draw Performed By: #### 8 6002 #### [facility] [address] [place] [address], [place] Calcium [Mass/Vol] 8.1 mg/dL Low 8.6-10.3 [facility] Comment on above: Order Comment: No: D o not add to previous draw Performed By: #### 8 6002 #### [facility] [address] [place] [address], [place] Chloride [Moles/Vol] 106 mmol/L Normal 98-107 [facility] Comment on above: Order Comment: No: D o not add to previous draw Performed By: #### 8 6002 #### [facility] [address] [place] [address], [place] CO2 [Moles/Vol] 26 mmol/L Normal 21-31 [facility] Comment on above: Order Comment: No: D o not add to previous draw Performed By: #### 8 6002 #### [facility] [address] [place] [address], [place] Creatinine [Mass/Vol] 0.79 mg/dL Normal 0.70-1.30 [facility] Comment on above: Order Comment: No: D o not add to previous draw Performed By: #### 8 6002 #### [facility] [address] [place] [address], [place] GFR/1.73 sq M predicted among blacks MDRD (S/P/Bld) [Vol rate/Area] mL/min/{1.73_m2} Normal >60 [facility] Comment on above: Order Comment: No: D o not add to previous draw Result Comment: Calc ulation may not be valid for patients over 70 years Performed By: #### 8 6002 #### [facility] [address] [place] [address], [place] GFR/1.73 sq M predicted among non-blacks MDRD (S/P/Bld) [Vol rate/Area] mL/min/{1.73_m2} Normal >60 [facility] Comment on above: Order Comment: No: D o not add to previous draw Result Comment: Calc ulation may not be valid for patients over 70 years Performed By: #### 8 6002 #### [facility] [address] [place] [address], [place] Glucose [Mass/Vol] 155 mg/dL High 70-100 [facility] Comment on above: Order Comment: No: D o not add to previous draw Performed By: #### 8 6002 #### [facility] [address] [place] [address], [facility] Potassium [Moles/Vol] 3.8 mmol/L Normal 3.5-5.1 [facility] Comment on above: Order Comment: No: D o not add to previous draw Performed By: #### 8 6002 #### [facility] [address] [place] [address], [facility] Protein [Mass/Vol] 5.2 g/dL Low 6.0-8.3 [facility] Comment on above: Order Comment: No: D o not add to previous draw Performed By: #### 8 6002 #### [facility] [address] [place] [address], [place] Sodium [Moles/Vol] 136 mmol/L Normal 136-145 [facility] Comment on above: Order Comment: No: D o not add to previous draw Performed By: #### 8 6002 #### [facility] [address] [place] [address], [facility] Urea nitrogen [Mass/Vol] 11 mg/dL Normal 7-25 [facility] Comment on above: Order Comment: No: D o not add to previous draw Performed By: #### 8 6002 #### [facility] [address] [place] [address], [facility] Cardiovascular Lab Reporton 11-05-2019 Cardiovascular Lab Report [facility] Patient Name: Marilu Dan [facility] [place] MR #: [id number] Physician: Blas Guillen of Keesha Ospina Medicine Service Date: 11/04/2019 Division of Birthdate: 1950 Cardiology Room #: DMITRIY [id number] Adult Cardiovascular Services [facility] [address] [place] [address] Cardiovascular Laboratory Report INDICATION: Marilu Dan is [...] left (Angioseal) common femoral arteries. INTERVENTIONAL CARDIOLOGY HAZARD MITIGATION OFFICER: Blas Ospina M.D. CARDIOTHORACIC SURGERY HAZARD MITIGATION OFFICER: Santana Reagan MD PRODUCTION TEAM MEMBER: Reynaldo Cox M.D. METHODS: Procedure was explained [...] and this was easily upsized to a 6-German x 11 cm sheath. Access was also obtained using the same technique in the left common femoral artery with inner cannula angiography confirming adequate location and upsized to a 6-German x 11 cm sheath. Additional access was obtained in the left common femoral vein and a 6-German x 11 cm sheath was placed. Preclosure was performed in the right common femoral artery using two 6-German ProGlide devices, positioned at 10 o'clock and 2 o'clock locations and the access was upsized to a 10-German sheath. 4000 units of heparin were given at this time. A 6-German angled pigtail catheter was advanced to the ascending aorta from the left common femoral access and a 5-German temporary balloon tipped pacemaker wire was advanced to the right ventricular apex and adequate capture was confirmed with a threshold of 2 milliamps. A 6-German JR4 diagnostic catheter was advanced from the right femoral access over a J-tip wire to the descending aorta and used to place a Lunderquist wire and the access was then serially dilated and upsized to the 14-German Henao eSheath. At this time, full heparinization was given and therapeutic ACT was confirmed during the rest of the procedure and additional heparin given as needed. Using a 6-German JR4 diagnostic catheter and a straight Glidewire, the aortic valve was crossed and the catheter was advanced to the LV and then exchanged over a wire to a 6-German angled pigtail catheter, and after adequate position [...] the valve was deployed slowly across the flandreau aortic valve. The balloon was deflated and then retracted. After ending pacing, the patient recovered a normal sinus rhythm and recovered good pressure. Echocardiography confirmed adequate functioning of the valve, normal left ventricular function, no evidence of aortic insufficiency or paravalvular leak by echocardiography and no evidence of pericardial effusion. The wire was exchanged to a 6-German angled pigtail catheter and measurement of pressures [...] left femoral arteriotomy was managed with a 6-German Angio-Seal device with good hemostasis. The patient [...] Ospina M.D. Date Trans: 11/05/2019 06:35 A/gomez [id number] cc: Mary Beth Pitts M.D. [address] [place] [address] Normal [facility] MAGNESIUM BLOODon 11-05-2019 Magnesium [Mass/Vol] 1.9 mg/dL Normal 1.9-2.7 [facility] Comment on above: Order Comment: No: D o not add to previous draw Performed By: #### 8 6002 #### [facility] [address] Operative Reporton 0 Operative Report MR#: [id number] I [facility] Pt. Name: Marilu Dan Room #: DMITRIY [id number] Discharge Date: Birthdate: 1950 OPERATIVE REPORT DATE OF SURGERY: 11/04/2019 SURGEON: Santana Reagan MD PREOPERATIVE DIAGNOSIS: Severe aortic stenosis, status post coronary artery bypass grafting. POSTOPERATIVE DIAGNOSIS: Severe aortic stenosis, status post coronary artery bypass grafting. OPERATION: Transfemoral transcatheter aortic valve replacement with 26 mm Chidi XT valve. SURGEONS: Dr. Reagan and Dr. Ospina. DEV MANAGER: Dr. Cox. ANESTHESIA: Local anesthesia with IV [...] was achieved to both femoral arteries with 6-German sheath. A temporary transvenous pacemaker was inserted in the left femoral vein and tested for later use. At this time, pigtail catheter was inserted into the ascending aorta through the left femoral sheath and root aortogram was performed. Anatomical details were measured. Coplanar angles were assessed. Next, the patient was heparinized and the right femoral artery sheath was upsized to a 14-German Henao sheath. Before implanting the sheath, the [...] Reagan MD Date Trans: 11/05/2019 02:18 A/gomez [id number] Normal [facility] POC GLUCOSE LABon 11-05-2019 Glucose [Mass/Vol] 232 mg/dL High 70-100 [facility] Comment on above: Performed By: #### 8 5499 #### [facility] [address] [facility] [place] [address], [facility] Glucose [Mass/Vol] 148 mg/dL High 70-100 [facility] Comment on above: Performed By: #### 8 5499 #### [facility] [address] [facility] [place] [address], [facility] Glucose [Mass/Vol] 203 mg/dL High 70-100 [facility] Comment on above: Performed By: #### 8 5499 #### [facility] [address] [facility] [place] [address], [facility] PORTABLE CHEST 1 VIEWon 10-13 PORTABLE CHEST 1 VIEW [facility] Department of Radiology [address] [place] [address] == Patient Name: MARILU DAN : 1950 Sex: M Age: Race: White Pt. Location: [place] [address] Patient Status: I Ordered Date: 11/05/2019 10:20:00 [...] recommendations. Electronically signed: Omid Avery. Transcribed by: [email or web address], User Resident: Electronically Signed by: OMID AVERY @ 11/05/2019 11:07 AM Normal [facility] Comment on above: Order Comment: Hardw are Evaluation PROTHROMBIN TIMEon 0 INR Coag (PPP) [Relative time] 1.06 {INR} Normal 0.91-1.16 [facility] Comment on above: Order Comment: No: D [...] 1995;108:231S-246S. Performed By: #### 8 6002 #### [facility] [address] PT Coag (PPP) [Time] 13.8 s Normal 12.3-14.8 [facility] Comment on above: Order Comment: No: D o not add to previous draw Result Comment: ALL RESULTS MUST BE INTERPRETED WITH RESPECT TO BLOOD DRAWING ARTIFACT OR DILUTION ERROR OF ANTICOAGULANT AT THE TIME OF SAMPLING. Performed By: #### 8 6002 #### [facility] [address] [place] [address], [facility] ACTIVATED CLOTTING TIMEon ACTIVATED CLOTTING TIME 249 sec High 82-152 [facility] Comment on above: Performed By: #### 3 0739 ####[facility] [place] [address], [facility] ACTIVATED CLOTTING TIME 249 sec High 82-152 [facility] Comment on above: Performed By: #### 3 0739 ####[facility] [facility] [place] [address], [facility] ACTIVATED CLOTTING TIME 225 sec High 82-152 [facility] Comment on above: Performed By: #### 3 0739 ####[facility] [place] [address], [facility] ACTIVATED CLOTTING TIME 201 sec High 82-152 [facility] Comment on above: Performed By: #### 3 0738 #### [facility] [address] [place] [address], [facility] ACTIVATED CLOTTING TIME 172 sec High 82-152 [facility] Comment on above: Performed By: #### 3 0738 #### [facility] [address] [place] [address], [facility] BASIC METABOLIC PANELon 06- Calcium [Mass/Vol] 8.9 mg/dL Normal 8.6-10.3 [facility] Comment on above: Performed By: #### 8 6002 #### [facility] [address] [place] [address], [facility] Chloride [Moles/Vol] 105 mmol/L Normal 98-107 [facility] Comment on above: Performed By: #### 8 6002 #### [facility] [address] [place] [address], [facility] CO2 [Moles/Vol] 28 mmol/L Normal 21-31 [facility] Comment on above: Performed By: #### 8 6002 #### [facility] [address] [place] [address], [facility] Creatinine [Mass/Vol] 0.87 mg/dL Normal 0.70-1.30 [facility] Comment on above: Performed By: #### 8 6002 #### [facility] [address] [place] [id number], [facility] GFR/1.73 sq M predicted among blacks MDRD (S/P/Bld) [Vol rate/Area] mL/min/{1.73_m2} Normal >60 [facility] Comment on above: Result Comment: Calc ulation may not be valid for patients over 70 years Performed By: #### 8 6002 #### [facility] [address] [place] [address], [facility] GFR/1.73 sq M predicted among non-blacks MDRD (S/P/Bld) [Vol rate/Area] mL/min/{1.73_m2} Normal >60 [facility] Comment on above: Result Comment: Calc ulation may not be valid for patients over 70 years Performed By: #### 8 6002 #### [facility] [address] [place] [address], [place] Glucose [Mass/Vol] 221 mg/dL High 70-100 [facility] Comment on above: Performed By: #### 8 6002 #### [facility] [address] [place] [address], [place] Potassium [Moles/Vol] 3.9 mmol/L Normal 3.5-5.1 [facility] Comment on above: Performed By: #### 8 6002 #### [facility] [address] [place] [address], [place] Sodium [Moles/Vol] 139 mmol/L Normal 136-145 [facility] Comment on above: Performed By: #### 8 6002 #### [facility] [address] [place] [address], [place] Urea nitrogen [Mass/Vol] 15 mg/dL Normal 7-25 [facility] Comment on above: Performed By: #### 8 6002 #### [facility] [address] [place] [address], [place] PERFUSION BLOOD PANELon 06- BASE EXCESS -2.0 mmol/L Normal -2.0-3.0 [facility] Comment on above: Performed By: #### 3 0738 #### [facility] [address] [place] [address], [place] Glucose [Mass/Vol] 169 mg/dL High 70-105 [facility] Comment on above: Performed By: #### 3 0738 #### [facility] [address] [place] [address], [facility] Hematocrit (Bld) [Volume fraction] 34 % Low 38-51 [facility] Comment on above: Performed By: #### 3 0738 #### [facility] [address] [place] [address], [facility] Hemoglobin (Bld) [Mass/Vol] 11.6 g/dL Low 12.0-17.0 [facility] Comment on above: Performed By: #### 3 0738 #### [facility] [address] [place] [address], [facility] IONIZED CALCIUM 1.20 mmol/L Normal 1.12-1.32 [facility] Comment on above: Performed By: #### 3 0738 #### [facility] [address] [place] [address], [facility] Oxygen (Bld) [Partial pressure] 410.0 mm[Hg] High 80.0-105.0 [facility] Comment on above: Performed By: #### 3 0738 #### [facility] [address] [place] [address], [facility] PCO2 49.2 mmHg High 35.0-45.0 [facility] Comment on above: Performed By: #### 3 0738 #### [facility] [address] [place] [address], [facility] pH (Bld) 7.31 [pH] Low 7.35-7.45 [facility] Comment on above: Performed By: #### 3 0738 #### [facility] [address] [place] [address], [facility] Potassium [Moles/Vol] 4.0 mmol/L Normal 3.5-4.9 [facility] Comment on above: Performed By: #### 3 0738 #### [facility] [address] [place] [address], [place] Sodium [Moles/Vol] 142 mmol/L Normal 138-146 [facility] Comment on above: Performed By: #### 3 0738 #### [facility] [address] [place] [address], [place] POC GLUCOSE LABon 11-04-2019 Glucose [Mass/Vol] 196 mg/dL High 70-100 [facility] Comment on above: Performed By: #### 8 5499 #### [facility] [address] [place] [address], [place] Glucose [Mass/Vol] 215 mg/dL High 70-100 [facility] Comment on above: Performed By: #### 8 5499 #### [facility] [address] [place] [address], [place] RBC'S 2 UNITSon 11-04-2019 CROSSMATCH INTERP 1 COMP Normal [facility] Comment on above: Performed By: #### 8 6002 #### [facility] [address] [place] [address], [place] CROSSMATCH INTERP 2 COMP Normal [facility] Comment on above: Performed By: #### 8 6002 #### [facility] [address] [place] [address], [place] PRODUCT CODE 1 E0336 Normal [facility] Comment on above: Performed By: #### 8 6002 #### [facility] [address] [place] [address], [place] PRODUCT CODE 2 E0336 Normal [facility] Comment on above: Performed By: #### 8 6002 #### [facility] [address] [place] [address], [place] PRODUCT STATUS 1 RE Normal [facility] Comment on above: Result Comment: Resu lt changed by IF on 11/05/2019 21:39. The previous value was XM. Performed By: #### [id number] #### [facility] [address] [place] [address], [facility] PRODUCT STATUS 2 RE Normal [facility] Comment on above: Result Comment: Resu lt changed by IF on 11/05/2019 21:39. The previous value was XM. Performed By: #### [id number] #### [facility] [address] [place] [address], [facility] UNIT ABO 1 A Normal [facility] Comment on above: Performed By: #### [id number] #### [facility] [address] [place] [address], [facility] UNIT ABO 2 A Normal [facility] Comment on above: Performed By: #### [id number] #### [facility] [address] [place] [address], [facility] UNIT ID 1 [id number] Normal [facility] Comment on above: Performed By: #### [id number] #### [facility] [address] [place] [address], [facility] UNIT ID 2 [id number] Normal [facility] Comment on above: Performed By: #### [id number] #### [facility] [address] [place] [address], [facility] UNIT RH 1 Positive Normal [facility] Comment on above: Performed By: #### [id number] #### [facility] [address] [place] [address], [facility] UN[facility] RH 2 Positive Normal [facility] Comment on above: Performed By: #### [id number] #### [facility] [address] [place] [address], [facility] *MRSA/MSSA DNA NASALon 10-30 *MRSA/MSSA DNA NASAL Clinical Report: (D ) Specimen: NASAL SWAB Collected: 10/31/2019 16:01 Status: Final Last Updated: 11/01/2019 11:35 MSSA DNA (Final) Negative MRSA DNA (Final) Negative Normal [facility] Comment on above: Performed By: #### [id number] #### [facility] [address] [place], [place] [id number] [place] [address] *SARS-CoV-2 COVID-19on 10-30 [id number] Not Detected Normal Not Detected [facility] Comment on above: Order Comment: The A ptima SARS-CoV-2 assay is a nucleic acid amplification test intended for the qualitative detection of RNA from SARS-CoV-2 isolated and purified from nasopharyngeal (CARPENTRY SUPERVISOR), nasal and oropharyngeal (OP) swab specimens from patients with signs and symptoms of infection who are suspected of COVID-19. Results are for the identification of SARS-CoV-2 RNA. The SARS-CoV-2 RNA is generally detectable in nasopharyngeal and oropharyngeal swabs during the acute phase of infection. The Aptima SARS-CoV-2 Assay on the [employer] Fusion system is intended for use by laboratory personnel specifically instructed and trained in the operation of the [place] [employer] [place] Fusion system. The Aptima SARS-CoV-2 assay is [...] information. Performed By: #### [id number] #### [facility] [address] [place], [place] [id number] [place] [address] CBC COMPLETE BLOOD COUNTon 0 10-31-2019 Erythrocyte distribution width (RBC) [Ratio] 11.9 % Normal 11.5-15.0 [facility] Comment on above: Performed By: #### [id number] #### [facility] [address] [facility] [address] Hematocrit (Bld) [Volume fraction] 41.2 % Normal 39.0-50.0 [facility] Comment on above: Performed By: #### [id number] #### [facility] [address] [place] [address], [facility] Hemoglobin (Bld) [Mass/Vol] 13.8 g/dL Normal 13.0-17.0 [facility] Comment on above: Performed By: #### [id number] #### [facility] [address] [place] [address], [facility] MCH (RBC) [Entitic mass] 30.4 pg Normal 27.0-33.0 [facility] Comment on above: Performed By: #### [id number] #### [facility] [address] MCHC (RBC) [Mass/Vol] 33.5 g/dL Normal 32.0-35.0 [facility] Comment on above: Performed By: #### [id number] #### [facility] [address] [facility] [place] [address], [facility] MCV (RBC) [Entitic vol] 90.7 fL Normal 82.0-98.0 [facility] Comment on above: Performed By: #### [id number] #### [facility] [address] [facility] [address] Nucleated RBC/100 WBC (Bld) [Ratio] 0 % Normal 0-0 [facility] Comment on above: Performed By: #### [id number] #### [facility] [address] [place] [address], [facility] PLAT CNT 216 10*3/uL Normal 150-400 [facility] Comment on above: Performed By: #### [id number] #### [facility] [address] [place] [address], [facility] RBC (Bld) [#/Vol] 4.54 10*6/uL Normal 4.20-5.70 [facility] Comment on above: Performed By: #### 8 [id number] #### [facility] 3000 [facility]. [address] WBC (Bld) [#/Vol] 8.20 10*3/uL Normal 4.00-10.60 [facility] Comment on above: Performed By: #### [id number] #### [facility] [address] [facility]. [address] HEMOGLOBIN A1Con 10-31-2019 HbA1c (Bld) [Mass fraction] 177 mg/dL High 70-126 [facility] Comment on above: Performed By: #### [id number] #### [facility] [address] [facility]. [address] HbA1c (Bld) [Mass fraction] 7.8 % High 4.0-6.0 [facility] Comment on above: Performed By: #### [id number] #### [facility] [address] [facility]. [address] PROTHROMBIN TIMEon 0 INR Coag (PPP) [Relative time] 1.39 {INR} High 0.91-1.16 [facility] Comment on above: Result Comment: ACCC P [...] 1995;[id number]. Performed By: #### [id number] #### [facility] [address] [place] [address], [facility] INR Coag (PPP) [Relative time] 1.38 {INR} High 0.91-1.16 [facility] Comment on above: Result Comment: ACCC P [...] 1995;[id number]. Performed By: #### 8 [id number] #### [facility] [address] [place] [address], [place] PT Coag (PPP) [Time] 17.1 s High 12.3-14.8 [facility] Comment on above: Result Comment: ALL RESULTS MUST BE INTERPRETED WITH RESPECT TO BLOOD DRAWING ARTIFACT OR DILUTION ERROR OF ANTICOAGULANT AT THE TIME OF SAMPLING. Performed By: #### [id number] #### [facility] [address] [place] [address], [place] PT Coag (PPP) [Time] 17.2 s High 12.3-14.8 [facility] Comment on above: Result Comment: ALL RESULTS MUST BE INTERPRETED WITH RESPECT TO BLOOD DRAWING ARTIFACT OR DILUTION ERROR OF ANTICOAGULANT AT THE TIME OF SAMPLING. Performed By: #### [id number] #### [facility] [address] TYPE AND SCREENon 10-31-2019 ABO INTERPRETATION A Normal [facility] Comment on above: Performed By: #### [id number] #### [facility] [address] [place] [address], [facility] RH INTERPRETATION Positive Normal [facility] Comment on above: Performed By: #### [id number] #### [facility] [address] CBCOrdered By: Blas gnozales on 05-12-2019 Erythrocyte distribution width (RBC) [Ratio] 11.8 % 11.8 - 14.4 % [employer] Phone: Hematocrit (Bld) [Volume fraction] 45.2 % 40.7 - 50.3 % [employer] Phone: Hemoglobin (Bld) [Mass/Vol] 14.6 g/dL 13 - 17 g/dL [employer] Phone: MCH (RBC) [Entitic mass] 30.5 pg 25.2 - 33.5 pg [employer] Phone: MCHC (RBC) [Mass/Vol] 32.3 g/dL 28.4 - 34.8 g/dL [employer] Phone: MCV (RBC) [Entitic vol] 94.4 fL 82.6 - 102.9 fL [employer] Phone: NRBC Automated 0.0 0.0 per 100 WBC [employer] Phone: Platelet mean volume (Bld) [Entitic vol] 9.0 fL 8.1 - 13.5 fL [employer] Phone: Platelets (Bld) [#/Vol] 204 10*3/uL [employer] Work Phone: RBC (Bld) [#/Vol] 4.79 10*6/uL 4.21 - 5.7 7 m/uL [employer] Work Phone: WBC (Bld) [#/Vol] 8.0 10*3/uL [employer] Work Phone: Vital Signs Date Time Vital Sign Value Performing Clinician Facility 06-25-2024 09:41-0500 Body height 167.64 cm [facility] 06-25-2024 09:41-0500 Body mass index (BMI) [Ratio] 28.4 kg/m2 [facility] 06-25-2024 09:41-0500 Body temperature 96 [degF] [facility] 06-25-2024 09:41-0500 Body weight 79.94 kg [facility] 06-25-2024 09:41-0500 Diastolic blood pressure 62 mm[Hg] [facility] 06-25-2024 09:41-0500 Heart rate 88 /min [facility] 06-25-2024 09:41-0500 SaO2% (BldA) [Mass fraction] 85 % [facility] 06-25-2024 09:41-0500 Systolic blood pressure 126 mm[Hg] [facility] 06-09-2024 09:54-0500 Blood Pressure Location Cristo [facility] 06-09-2024 09:54-0500 Diastolic blood pressure 73 mm[Hg] [facility] 06-09-2024 09:54-0500 Heart rate 73 /min [facility] RIVER[facility] 06-09-2024 09:54-0500 Systolic blood pressure 138 mm[Hg] [facility] RIVER[facility] 02-15-2024 08:54-0400 Blood Pressure Location Cristo RIVERA [facility] 02-15-2024 08:54-0400 Body temperature 98.6 [degF] [facility] 02-15-2024 08:54-0400 Diastolic blood pressure 71 mm[Hg] [facility] 02-15-2024 08:54-0400 Heart rate 80 /min [facility] R[facility] 02-15-2024 08:54-0400 Respiratory rate 16 /min [facility] R[facility] 02-15-2024 08:54-0400 Systolic blood pressure 131 mm[Hg] [facility] R[facility] 12-21-2023 08:02-0400 Blood Pressure Location Cristo RIVER[facility] 12-21-2023 08:02-0400 Diastolic blood pressure 72 mm[Hg] [facility] 12-21-2023 08:02-0400 Heart rate 73 /min [facility] R[facility] 12-21-2023 08:02-0400 Respiratory rate 16 /min [facility] 12-21-2023 08:02-0400 Systolic blood pressure 136 mm[Hg] [facility] 12-04-2023 07:48-0400 Body height 167.64 cm MD Mary Beth Pitts Work Phone: [facility] 12-04-2023 07:48-0400 Body mass index (BMI) [Ratio] 0.8 kg/m2 MD Mary Beth Pitts Work Phone: [facility] 12-04-2023 07:48-0400 Body weight 2.43 kg MD Mary Beth Pitts Work Phone: [facility] 12-04-2023 07:42-0400 Body temperature 97.7 [degF] MD Mary Beth Pitts Work Phone: [facility] 12-04-2023 07:42-0400 Diastolic blood pressure 62 mm[Hg] MD Mary Beth Pitts Work Phone: [facility] 12-04-2023 07:42-0400 Heart rate 64 /min MD Mary Beth Pitts Work Phone: [facility] 12-04-2023 07:42-0400 Respiratory rate 18 /min MD Mary Beth Pitts Work Phone: [facility] 12-04-2023 07:42-0400 Systolic blood pressure 110 mm[Hg] MD Mary Beth Pitts Work Phone: [facility] 11-26-2023 09:55-0400 Body height 167.64 cm MD Mary Beth Pitts Work Phone: [facility] 11-26-2023 09:55-0400 Body mass index (BMI) [Ratio] 26.6 kg/m2 MD Mary Beth Pitts Work Phone: [facility] 11-26-2023 09:55-0400 Body weight 74.84 kg MD Mary Beth Pitts Work Phone: [facility] 11-26-2023 09:55-0400 Diastolic blood pressure 58 mm[Hg] MD Mary Beth Pitts Work Phone: [facility] 11-26-2023 09:55-0400 Heart rate 76 /min MD Mary Beth Pitts Work Phone: [facility] 11-26-2023 09:55-0400 Systolic blood pressure 95 mm[Hg] MD Mary Beth Pitts Work Phone: [facility] 11-19-2023 08:45-0400 Blood Pressure Location [facility] RIVER[facility] 11-19-2023 08:45-0400 Diastolic blood pressure 59 mm[Hg] Cristoantoine RIVERA [facility] 11-19-2023 08:45-0400 Heart rate 81 /min Cristoantoine RIVERA [facility] 11-19-2023 08:45-0400 Respiratory rate 16 /min Cristoantoine RIVERA [facility] 11-19-2023 08:45-0400 Systolic blood pressure 125 mm[Hg] [facility] 11-08-2023 07:20-0400 Body height 167.64 cm MD Mary Beth Pitts Work Phone: [facility] 11-08-2023 07:20-0400 Body mass index (BMI) [Ratio] 0.8 kg/m2 MD Mary Beth Pitts Work Phone: [facility] 11-08-2023 07:20-0400 Body weight 2.43 kg MD Mary Beth Pitts Work Phone: [facility] 11-08-2023 07:08-0400 Body temperature 97.5 [degF] MD Mary Beth Pitts Work Phone: [facility] 11-08-2023 07:08-0400 Diastolic blood pressure 53 mm[Hg] MD Mary Beth Pitts Work Phone: [facility] 11-08-2023 07:08-0400 Heart rate 80 /min MD Mary Beth Pitts Work Phone: [facility] 11-08-2023 07:08-0400 Respiratory rate 18 /min MD Mary Beth Pitts Work Phone: [facility] 11-08-2023 07:08-0400 Systolic blood pressure 91 mm[Hg] MD Mary Beth Pitts Work Phone: [facility] 10-18-2023 09:18-0400 Body height 165.1 cm [facility] 10-18-2023 09:18-0400 Body mass index (BMI) [Ratio] 30.2 kg/m2 [facility] 10-18-2023 09:18-0400 Body weight 82.55 kg [facility] 10-18-2023 09:18-0400 Diastolic blood pressure 50 mm[Hg] [facility] 10-18-2023 09:18-0400 Heart rate 87 /min [facility] 10-18-2023 09:18-0400 Systolic blood pressure 89 mm[Hg] [facility] 06-25-2023 08:50-0500 Blood Pressure Location [facility] RIVER[facility] 06-25-2023 08:50-0500 Diastolic blood pressure 64 mm[Hg] [facility] 06-25-2023 08:50-0500 Heart rate 74 /min [facility] R[facility] 06-25-2023 08:50-0500 Respiratory rate 16 /min Crist[facility] RIVER[facility] 06-25-2023 08:50-0500 Systolic blood pressure 108 mm[Hg] [facility] R[facility] 02-26-2023 08:57-0400 Blood Pressure Location Crist[facility] RIVER[facility] 02-26-2023 08:57-0400 Diastolic blood pressure 60 mm[Hg] [facility] 02-26-2023 08:57-0400 Heart rate 69 /min [facility] R[facility] 02-26-2023 08:57-0400 Respiratory rate 16 /min [facility] R[facility] 02-26-2023 08:57-0400 Systolic blood pressure 118 mm[Hg] [facility] 11-27-2022 09:34-0400 Blood Pressure Location [facility] RIVER[facility] 11-27-2022 09:34-0400 Diastolic blood pressure 51 mm[Hg] [facility] 11-27-2022 09:34-0400 Heart rate 64 /min [facility] 11-27-2022 09:34-0400 Respiratory rate 16 /min [facility] 11-27-2022 09:34-0400 Systolic blood pressure 89 mm[Hg] [facility] 09-11-2022 12:30-0400 Body height 165.1 cm Mary Beth Pitts Other [facility] Other 09-11-2022 12:30-0400 Body mass index (BMI) [Ratio] 29.78 kg/m2 Mary Beth Pitts Other [facility] Other 09-11-2022 12:30-0400 Body weight 81.19 kg Mary Beth Pitts Other [facility] Other 09-11-2022 12:30-0400 Diastolic blood pressure 62 mm[Hg] Mary Beth Pitts Other [facility] Other 09-11-2022 12:30-0400 SaO2% (BldA) [Mass fraction] 94 % Mary Beth Pitts Other [employer] Other 09-11-2022 12:30-0400 Systolic blood pressure 110 mm[Hg] Mary Beth Pitts Other [facility] Other 08-24-2022 11:45-0400 Body height 165.1 cm Mary Beth Pitts Other [facility] Other 08-24-2022 11:45-0400 Body mass index (BMI) [Ratio] 29.62 kg/m2 Mary Beth Pitts Other [facility] Other 08-24-2022 11:45-0400 Body weight 80.74 kg Mary Beth Pitts Other [facility] Other 08-24-2022 11:45-0400 Diastolic blood pressure 58 mm[Hg] Mary Beth Pitts Other [facility] Other 08-24-2022 11:45-0400 SaO2% (BldA) [Mass fraction] 95 % Mary Beth Pitts Other [facility] Other 08-24-2022 11:45-0400 Systolic blood pressure 112 mm[Hg] Mary Beth Pitts Other [facility] Other 07-11-2022 09:45-0500 Body height 165.1 cm Mary Beth Pitts Other [facility] Other 07-11-2022 09:45-0500 Body mass index (BMI) [Ratio] 29.62 kg/m2 Mary Beth Pitts Other [facility] Other 07-11-2022 09:45-0500 Body weight 80.74 kg Mary Beth Pitts Other [facility] Other 07-11-2022 09:45-0500 Diastolic blood pressure 52 mm[Hg] Mary Beth Pitts Other [facility] Other 07-11-2022 09:45-0500 SaO2% (BldA) [Mass fraction] 97 % Mary Beth Pitts Other [facility] Other 07-11-2022 09:45-0500 Systolic blood pressure 108 mm[Hg] Mary Beth Pitts Other [facility] Other 06-05-2022 09:38-0500 Diastolic blood pressure 60 mm[Hg] [facility] 06-05-2022 09:38-0500 Mean blood pressure 84 mm[Hg] [facility] 06-05-2022 09:38-0500 Systolic blood pressure 131 mm[Hg] [facility] 06-05-2022 09:32-0500 Blood Pressure Location [facility] RIVER[facility] 06-05-2022 09:32-0500 Diastolic blood pressure 73 mm[Hg] [facility] 06-05-2022 09:32-0500 Heart rate 74 /min [facility] 06-05-2022 09:32-0500 Respiratory rate 16 /min [facility] 06-05-2022 09:32-0500 Systolic blood pressure 149 mm[Hg] [facility] 03-19-2022 11:53-0500 Body temperature 98 [degF] MD Mary Beth Pitts Work Phone: [facility] 03-19-2022 11:53-0500 Diastolic blood pressure 74 mm[Hg] MD Mary Beth Pitts Work Phone: [facility] 03-19-2022 11:53-0500 Heart rate 86 /min MD Mary Beth Pitts Work Phone: [facility] 03-19-2022 11:53-0500 Respiratory rate 18 /min MD Mary Beth Pitts Work Phone: [facility] 03-19-2022 11:53-0500 SaO2% (BldA) [Mass fraction] 97 % MD Mary Beth Pitts Work Phone: [facility] 03-19-2022 11:53-0500 Systolic blood pressure 135 mm[Hg] MD Mary Beth Pitts Work Phone: [facility] 03-19-2022 05:36-0500 Body weight 91.9 kg MD Mary Beth Pitts Work Phone: [facility] 03-16-2022 23:20-0400 Body height 165.1 cm MD Mary Beth Pitts Work Phone: [facility] 03-14-2022 12:28-0400 Blood Pressure Location [facility] 03-14-2022 12:28-0400 Diastolic blood pressure 74 mm[Hg] [facility] 03-14-2022 12:28-0400 Heart rate 80 /min [facility] 03-14-2022 12:28-0400 Systolic blood pressure 150 mm[Hg] [facility] 02-27-2022 09:24-0400 Blood Pressure Location Cristoantoine RIVERA [facility] 02-27-2022 09:24-0400 Diastolic blood pressure 72 mm[Hg] [facility] 02-27-2022 09:24-0400 Heart rate 83 /min Cristoantoine RIVERA [facility] 02-27-2022 09:24-0400 Respiratory rate 16 /min Cristoantoine RIVERA [facility] 02-27-2022 09:24-0400 Systolic blood pressure 130 mm[Hg] [facility] 09-19-2021 13:45-0400 Diastolic blood pressure 48 mm[Hg] Roberta George DO Work Phone: [facility] 09-19-2021 13:45-0400 Heart rate 65 /min Roberta George DO Work Phone: [facility] 09-19-2021 13:45-0400 Respiratory rate 20 /min Roberta George DO Work Phone: [facility] 09-19-2021 13:45-0400 SaO2% (BldA) [Mass fraction] 95 % Roberta Vazquez DO Work Phone: [facility] 09-19-2021 13:45-0400 Systolic blood pressure 113 mm[Hg] Roberta Vazquez DO Work Phone: [facility] 09-19-2021 13:23-0400 Body temperature 96.91 [degF] Roberta George MAKI Work Phone: [facility] 09-19-2021 11:57-0400 Body height 170.2 cm Roberta Vazquez DO Work Phone: [facility] 09-19-2021 11:57-0400 Body mass index (BMI) [Ratio] 25.84 kg/m2 Roberta Vazquez DO Work Phone: [facility] 09-19-2021 11:57-0400 Body weight 74.84 kg Roberta George MAKI Work Phone: [facility] Encounters Encounter Date Encounter Type Care Provider Facility Start: 09-29-2024 ambulatory Cristo RIVERA Facili ty:[facility] Start: 07-03-2024 End: 07-03-2024 ambulatory [facility] Start: 06-25-2024 End: 06-25-2024 ambulatory [facility] Work Phone: Start: 06-25-2024 End: 06-25-2024 Patient encounter procedure [facility] Work Phone: Start: 06-20-2024 End: 06-20-2024 ambulatory Cristo RIVERA Facility:[facility] [place] Start: 06-20-2024 End: 06-20-2024 Patient encounter procedure [facility] [place] Start: 06-09-2024 End: 06-09-2024 ambulatory Cristo RIVERA Facility:[facility] [place] Start: 06-09-2024 End: 06-09-2024 Patient encounter [facility] Start: 03-25-2024 End: 03-25-2024 Lab Drop off Cristo RIVERA [facility] Start: 03-25-2024 End: 03-25-2024 ambulatory Cristo RIVERA Facility:[facility] Start: 03-25-2024 End: 03-25-2024 Patient encounter procedure [facility] RIVER[facility] Start: 02-28-2024 End: 02-28-2024 ambulatory Cristo RIVERA Facility:[facility] Start: 02-28-2024 End: 02-28-2024 Patient encounter procedure [facility] RIVER[facility] Start: 02-15-2024 End: 02-15-2024 ambulatory Cristo RIVERA Facility:[facility] Start: 02-15-2024 End: 02-15-2024 Lab Drop off Cristo RIVERA [facility] Start: 02-15-2024 End: 02-15-2024 ambulatory Cristo RIVERA Facility:[facility] Start: 02-15-2024 End: 02-15-2024 Patient encounter procedure [facility] RIVER[facility] Start: 12-24-2023 End: 12-24-2023 ambulatory [facility] Start: 12-21-2023 End: 12-21-2023 ambulatory Cristo RIVERA Facility:[facility] [place] Start: 12-21-2023 End: 12-21-2023 Patient encounter procedure [facility] Start: 12-19-2023 End: 12-19-2023 ambulatory [facility] Start: 12-10-2023 Patient encounter procedure [facility] Start: 12-04-2023 End: 12-04-2023 ambulatory MD Mary Beth Pitts Work Phone: [facility] Work Phone: Start: 12-04-2023 End: 12-04-2023 Discharged Recurring MD Mary Beth Pitts Work Phone: [facility] Work Phone: Start: 11-26-2023 End: 11-26-2023 ambulatory MD Mary Beth Pitts Work Phone: [facility] Work Phone: Start: 11-26-2023 End: 11-26-2023 Patient encounter procedure MD [facility] [facility] Work Phone: Start: 11-23-2023 End: 11-23-2023 ambulatory HINA CARD [facility] Start: 11-23-2023 Non-patient / Non-visit MD Candie Pitts Work Phone: [facility] Work Phone: Start: 11-22-2023 ambulatory MARSHALL Helton [facility] Start: 11-19-2023 End: 11-19-2023 ambulatory Cristo RIVERA Facility:[facility] Start: 11-19-2023 End: 11-19-2023 Patient encounter procedure Cristo RIVERA [facility] Start: 11-08-2023 Registered Recurring MD Mary Beth Pitts Work Phone: [facility] [place] Work Phone: Start: 10-26-2023 End: 10-26-2023 ambulatory [facility] Start: 10-26-2023 End: 10-26-2023 Encounter for preprocedural cardiovascular examination [facility] Start: 10-26-2023 Non-patient / Non-visit MD Candie Pitts Work Phone: [facility] Work Phone: Start: 10-18-2023 End: 10-18-2023 ambulatory [facility] Work Phone: Start: 10-18-2023 End: 10-18-2023 Patient encounter procedure [facility] Work Phone: Start: 10-12-2023 Evaluation and manag ement of inpatient [facility] Start: 10-10-2023 Evaluation and manag ement of inpatient [facility] Start: 10-09-2023 Evaluation and manag ement of inpatient [facility] Start: 10-08-2023 Evaluation and manag ement of inpatient [facility] Start: 10-07-2023 Evaluation and manag ement of inpatient [facility] Start: 10-06-2023 Evaluation and manag ement of inpatient [facility] Start: 10-06-2023 Evaluation and manag ement of inpatient [facility] Start: 10-06-2023 Evaluation and manag ement of inpatient [facility] Start: 10-06-2023 Evaluation and manag ement of inpatient [facility] Start: 10-05-2023 End: 10-13-2023 Evaluation and management of inpatient DEBRA [facility] Start: 10-05-2023 Non-patient / Non-visit [facility] Work Phone: Start: 10-04-2023 Non-patient / Non-visit [facility] Work Phone: Start: 09-27-2023 ambulatory MARSHALL LUONG [facility] Start: 09-20-2023 ambulatory MARSHALL LUONG [facility] Start: 09-13-2023 Non-patient / Non-visit [facility] Work Phone: Start: 09-12-2023 Encounter for other preprocedural examination [facility] Start: 09-12-2023 Evaluation and manag ement of inpatient MARSHALL LUONG [facility] Start: 09-10-2023 End: 09-12-2023 Encounter for other preprocedural examination [facility] Start: 09-10-2023 End: 09-12-2023 Evaluation and management of inpatient [facility] Start: 09-03-2023 Non-patient / Non-visit [facility] Work Phone: Start: 08-21-2023 End: 08-21-2023 ambulatory [facility] Start: 08-18-2023 Non-patient / Non-visit [facility] Work Phone: Start: 08-17-2023 End: 08-17-2023 ambulatory [facility] Start: 07-12-2023 End: 07-12-2023 ambulatory KAMILA WILSON Not Available Start: 06-25-2023 End: 06-25-2023 ambulatory Cristo RIVERA Facility: [facility] Start: 06-25-2023 End: 06-25-2023 Patient encounter procedure Cristo RIVERA [facility] [place] Start: 04-04-2023 End: 04-04-2023 ambulatory Mary Beth Pitts Other [employer] Other Start: 04-04-2023 Telephone encounter Mary Beth Pitts [facility] Start: 02-26-2023 End: 02-26-2023 Patient encounter procedure Cristo RIVERA [facility] Start: 12-29-2022 End: 12-29-2022 ambulatory Mahendra Escaalnte Other [employer] Other Start: 12-29-2022 Telephone encounter Mahendra barry [employer] Start: 11-27-2022 End: 11-27-2022 Patient encounter procedure Cristo RIVERA [facility] Start: 11-23-2022 End: 11-23-2022 ambulatory Mary Beth Pitts Other [employer] Other Start: 11-23-2022 Telephone encounter Mary Beth Hong [facility] Start: 09-18-2022 End: 09-18-2022 ambulatory Mary Beth Pitts Other [employer] Other Start: 09-18-2022 Telephone encounter Mary Beth Hong [facility] Start: 09-11-2022 End: 09-11-2022 ambulatory Mary Beth Pitts Other [employer] Other Start: 09-11-2022 Office outpatient vi sit 15 minutes Mary Beth Pitts [facility] Start: 08-24-2022 End: 08-24-2022 ambulatory Mary Beth Pitts Other [employer] Other Start: 08-24-2022 Office outpatient vi sit 15 minutes Mary Beth Pitts [facility] Start: 07-20-2022 End: 07-20-2022 Patient encounter procedure Cristo RIVERA [facility] [place] Start: 07-18-2022 End: 06-29-2022 Patient encounter procedure Cristo R NICOLE [facility] [place] Start: 07-12-2022 End: 07-12-2022 ambulatory Mary Beth Pitts Other [facility] [employer] Other Start: 07-12-2022 Telephone encounter Mary Beth Pitts [facility] Start: 07-11-2022 Office outpatient vi sit 15 minutes Mary Beth Pitts [facility] Start: 07-11-2022 End: 07-11-2022 ambulatory MD Mary Beth Pitts Work Phone: [facility] Work Phone: Start: 07-11-2022 End: 07-11-2022 Patient encounter procedure MD Mary Beth Pitts Work Phone: [facility] [place] Work Phone: Start: 06-05-2022 End: 06-05-2022 Patient encounter procedure Cristo RIVERA [facility] [place] Start: 04-29-2022 End: 04-30-[address] CRISTO RIVERA Facility: Start: 03-17-[address] Jc hSetty Facility:[id number] Start: 03-17-[address] Mary Beth Pitts Facility:[facility] Start: 03-17-[address] Mary Beth Pitts Facility:[id number] Start: 03-16-2022 End: 03-19-2022 Evaluation and management of inpatient MD Mary Beth Pitts Work Phone: [facility] Start: 03-16-2022 End: 03-17-2022 ambulatory GALEN MEDINA Facility:[facility] Start: 03-14-2022 End: 03-14-2022 Patient encounter procedure Cristo RIVERA [facility] [place] Start: 03-03-2022 End: 03-04-[address] AMRY BETH PITTS Facility:[facility] Start: 02-27-2022 End: 02-27-2022 Patient encounter procedure Cristo RIVERA [facility] [place] Start: 12-16-2021 End: 12-17-2021 [facility] Start: 12-08-2021 Adult health examination Supriya Escalante Other [employer] Other Start: 12-08-2021 Problem, abnormal examination Mahendra Virgenvasiliy Other [employer] Other Start: 12-01-2021 End: 12-02-2021 ambulatory MARY BETHJAMIE PITTS [facility] Start: 12-01-2021 End: 12-01-2021 Subsequent hospital visit by physician Mary Beth Pitts MD Work Phone: [facility] Start: 09-19-2021 End: 09-19-2021 ambulatory MARY BETH PITTS [facility] Start: 09-19-2021 End: 09-19-2021 Subsequent hospital visit by physician Roberta Vazquez DO Work Phone: [facility] Start: 07-05-2021 End: 07-06-2021 ambulatory Gerald Villagomez MD Facility[facility] Start: 06-14-2021 End: 06-15-2021 ambulatory MD Mary Beth Pitts Facility:[facility] Start: 06-09-2021 End: 06-09-2021 ambulatory MD Mary Beth Pitts Facility:[facility] Start: 06-08-2021 End: 06-09-2021 ambulatory Gerald Villagomez MD Facility:[facility] Start: 06-02-2021 End: 06-03-2021 ambulatory MD Mary Beth Pitts Facility:[facility] Start: 05-27-2021 End: 05-28-2021 ambulatory Gerald Villagomez MD Facility:[facility] Start: 05-19-2021 End: 05-20-2021 ambulatory MD Mary Beth Pitts [facility] Start: 09-27-2020 End: 09-27-2020 Subsequent hospital visit by physician Mary Beth Pitts MD Work Phone: [facility] Start: 03-29-2020 End: 03-30-2020 Patient encounter procedure SWETHA WINTER Facility:[facility] Start: 02-23-2020 End: 02-24-2020 Patient encounter procedure MARY BETH PITTS Facility:[facility] Start: 02-12-2020 End: 02-14-2020 Evaluation and management of inpatient PEREZ ALI Facility:[facility] Start: 11-04-2019 End: 11-05-2019 Evaluation and management of inpatient SANTANA MASROOR Facility:[facility] Start: 05-12-2019 End: 05-12-2019 Subsequent hospital visit by physician Mary Beth Pitts MD Work Phone: [facility] Procedures Date Procedure Procedure Detail Performing [...] X-ray of right hip MD Mary Beth Ptits Work Phone: Start: 11-04-2022 [facility] [...] on above: Performed By: #### [id number] ####[facility] [facility] [place] [address], [facility] Start: 11-04-2019 MEASURE OF ARTERIAL SATURATION, PERIPHERAL, PERC APPROACH REYNALDO COX Start: 11-04-2019 MEASURE OF CARDIAC S AMPL \T\ PRESSURE, L HEART, PERC APPROACH BLAS OSPINA Start: 11-04-2019 REPLACEMENT OF AORTI C VALVE WITH ZOOPLASTIC, PERC APPROACH SANTANA REAGAN Start: 10-31-2019 Antibody screen NIC AYALA Comment on above: Performed By: #### [id number] #### [facility] [address] [facility] [place] [address], [facility] Start: 05-12-2019 Blood count [...] limb veins US venous duplex LE RT [facility] Start: 07-11-2022 US Lower extremity v ein - right [facility] Start: 03-21-2022 [facility] Start: 03-20-2022 Blood chemistry [facility] Start: 03-20-2022 [facility] Start: 03-19-2022 [facility] Start: 03-18-[address] [facility] Start: 03-17-2022 [facility] Start: 03-17-2022 Hospital admission [facility] Start: 03-17-2022 Referral to director of field service [facility] Start: 03-17-2022 [facility] Start: 01-12-2022 Influenza vaccination [employer] Start: 09-19-2021 End: 09-19-2021 Xcapsl ctrc rmvl insj io lens prosth w/o ecp EYE CATARACT EMULSIFICATION IOL IMPLANT COMBINED FORMS OF AGE RELATED CATARACT 2+NS, 2+PSC, 2+CS 09/19/2021 12:45 PM EDT [facility] Start: 09-04-2021 COVID-19 Vaccine (4 - Booster for Pfizer series) COVID-19 Vaccine (4 - Booster for Pfizer series) TITA CARRERA [facility]ON [employer] Start: 01-12-2021 Influenza vaccination Flu vacc ine (Season Ended) [employer] Work Phone: Start: 03-21-2019 A1C test (Diabetic o r Prediabetic) A1C test (Diabetic or Prediabetic) [employer] Phone: Start: 03-21-2019 Creatinine measurement [employer] Start: 03-21-2019 Creatinine monitoring Creatinine mon itoring [employer] Phone: Start: 03-21-2019 Diabetic microalbumi lucila test Diabetic microalbuminuria test [employer] Phone: Start: 03-21-2019 Hemoglobin A1c measurement A1C test (Diabetic or Prediabetic) [employer] Phone: Start: 03-21-2019 [facility] Start: 03-21-2019 Lipid screen Lipid screen [employer] Work Phone: Start: 03-21-2019 Potassium [Moles/vol ume] in Serum or Plasma Potassium [facility] Start: 03-21-2019 Potassium monitoring Potassium monit oring [employer] Phone: Start: 01-12-2019 Influenza vaccination Flu vaccine (# 1) [employer] Phone: Start: 11-03-2018 Annual Wellness Visi t (AWV) Annual Wellness Visit (AWV) [employer] Phone: Start: 06-21-2018 Hemoglobin A1c measurement A1C test (Diabetic or Prediabetic) [employer] Start: 2013 Abdominal aortic ane urysm screening AAA screen [employer] Start: 2013 Pneumococcal 65+ yea rs Vaccine (1 - PCV) Pneumococcal 65+ years Vaccine (1 - PCV) [employer] Start: 2013 Pneumococcal 65+ yea rs Vaccine (1 of 1 - PPSV23) Pneumococcal 65+ years Vaccine (1 of 1 - PPSV23) [employer] Phone: Start: 1998 Colon cancer screen colonoscopy Colon cancer screen colonoscopy [employer] Phone: Start: 1998 Screening for malign ant neoplasm of colon Colon cancer screen colonoscopy [employer] Phone: Start: 1998 Shingles Vaccine (1 of 2) Shingles V accine (1 of 2) [facility] Start: 1993 Screening for malign ant neoplasm of colon [employer] Start: 1967 DTaP/Tdap/Td vaccine (1 - Tdap) DTaP/Tdap/Td vaccine (1 - Tdap) [employer] Start: 1966 Hepatitis C screening Hepatitis C nm [employer] [facility] Start: 1960 COVID-19 Vaccine (1) COVID-19 Vaccin e (1) [employer] Phone: Start: 1960 Depression Screen Depression Screen [facility] Start: 1959 DTaP/Tdap/Td vaccine (1 - Tdap) DTaP/Tdap/Td vaccine (1 - Tdap) [employer] Phone: Start: 1958 3 comp foot exam completed Diabetic foot exam [employer] Phone: Start: 1958 Diabetic foot examination Diabetic f oot exam [employer] Phone: Start: 1958 Diabetic retinal exam Diabetic retin al exam [employer] Phone: Start: 1948 AAA screen AAA screen [facility] [employer] Work Phone: Start: 1948 Abdominal aortic ane urysm screening AAA screen [employer] Phone: Start: 1948 Annual Wellness Visi t (AWV) Annual Wellness Visit (AWV) [employer] Start: 1948 Hepatitis C screen Hepatitis C scree n [employer] Phone: Start: 1948 Hepatitis C screening Hepatitis C [facility] [employer] Phone: Blood culture for bacteria, including anaerobic screen Blood Culture [facility] End: 12-01-2021 Hemoglobin A1c/Hemoglobin.total in Blood [facility] [employer] Phone: Comment on above: Once for 1 Occurrenc es starting 12/01/2021 until 12/01/2021 Oxygen therapy [Mini mum Data Set] Initiate Oxygen Therapy Protocol Respiratory Care Routine Daily until discontinued starting 09/19/2021 [employer] Work Phone: Comment on above: Daily until disconti nued starting 09/19/2021 Patient Education Urinary Tract Infection, Adult (DC) Sepsis, Adult (DC) [facility] Work Phone: Patient referral [facility] Work Phone: XR Chest 2 Views [facility] Immunizations Immunization Date Immunization Notes Care Provider Fa cility 08-28-2022 tetanus and diphther ia toxoids, adsorbed, preservative free, for adult use (2 Lf of tetanus toxoid and 2 Lf of diphtheria toxoid) [facility] 08-28-2022 tetanus and diphther ia toxoids, adsorbed, preservative free, for adult use (5 Lf of tetanus toxoid and 2 Lf of diphtheria toxoid) Mary Beth Pitts Other [employer] Other 05-06-2021 COVID-19, Pfizer Purple top, DILUTE for use, 12+ yrs, 30mcg/0.3mL dose Roberta George DO Work Phone: [employer] Phone: 10-22-2020 COVID-19, Pfizer Purple top, DILUTE for use, 12+ yrs, 30mcg/0.3mL dose Roberta George DO Work Phone: [employer] Phone: 10-01-2020 COVID-19, Pfizer Purple top, DILUTE for use, 12+ yrs, 30mcg/0.3mL dose Roberta George DO Work Phone: [employer] Phone: Payers Date Payer Category Payer Self-pay [id number] 2021 Medicaid 2020 Private Health Insurance 2018 Private Health Insurance [id number] 2014 Medicare MEDICARE MEDICAR E PART A AND B xxxxxxxxxxx 2014-Present [phone] [place] [address] xxxxxxxxxxx [id number] 1959 Medicaid [id number] 1948 Unknown [id number] 2.16.840.1.919240.3.579.2. 647 1948 Unknown [id number] 2.16.840.1.253219.3.579.2. 647 1948 Unknown [id number] 2.16.840.1.430578.3.579.2. 647 1948 Unknown [id number] 2.16.840.1.449519.3.579.2. 647 1948 Unknown [id number] 2.16.840.1.594684.3.579.2. 173 1948 Unknown [id number] 2.16.840.1.394414.3.579.2. 173 1948 Unknown [id number] 2.16.840.1.111817.3.579.2. 173 1948 Unknown [id number] 2.16.840.1.477984.3.579.2. 356 1948 Unknown [id number] 2.16.840.1.326342.3.579.2. 356 1948 Unknown [id number] 2.16.840.1.956880.3.579.2. 356 1948 Unknown [id number] 2.16.840.1.901397.3.579.2. 593 1948 Unknown [id number] 2.16.840.1.448040.3.579.2. 593 1948 Unknown [id number] 2.16.840.1.624766.3.579.2. 593 1948 Unknown [id number] 2.16.840.1.398056.3.579.2. 196 1948 Unknown [id number] 2.16.840.1.064784.3.579.2. 196 1948 Unknown [id number] 2.16.840.1.597720.3.579.2. 196 1948 Unknown [id number] 2.16.840.1.332235.3.579.2. 196 1948 Unknown [id number] 2.16.840.1.057249.3.579.2. 196 1948 Unknown [id number] 2.16.840.1.137071.3.579.2. 196 1948 Unknown [id number] 2.16840.1.817890.3.579.2. 196 1948 Unknown [id number] 2.16.840.1.219051.3.579.2. 1259 1948 Unknown [id number] 2.16.840.1.795466.3.579.2. 72 1948 Unknown [id number] 2.16840.1.147994.3.579.2. 727 1948 Unknown [id number] 2.16840.1.175535.3.579.2. 72 1948 Unknown [id number] 2.16.840.1.415977.3.579.2. 72 1948 Unknown [id number] 2.16.840.1.786047.3.579.2. 72 1948 Unknown [id number] 2.16.840.1.760496.3.579.2. 72 1948 Unknown [id number] 2.16.840.1.281933.3.579.2. 72 1948 Unknown [id number] 2.16.840.1.286037.3.579.2. 727 1948 Unknown [id number] 2.16.840.1.941087.3.579.2. 727 1948 Unknown [id number] 2.16.840.1.829103.3.579.2. 727 1948 Unknown [id number] 2.16.840.1.892038.3.579.2. 72 Medicaid Medicaid [id number] Medicare [id number] Medicare [id number] ..[id number] Unknown HCAP/HFA/FAP Active [id number] Social History Date Type Detail Facility Start: 10-29-2014 End: 12-04-2023 Tobacco smoking status [facility] Former smoker [facility] End: 05-14-1994 History of tobacco use Current smoker [facility] Start: 10-29-2014 End: 09-19-2021 Alcohol intake Current non-drinker of alcohol (finding) [employer] Phone: Start: 1950 Sex Assigned At Not on file [employer] Phone: Start: 09-09-2021 End: 09-19-2021 Exposure to SARS-CoV-2 (event) Not sure [employer] Phone: End: 05-14-1994 History of tobacco use Cigarette Smoker [employer] Phone: Start: 09-19-2021 Tobacco use and exposure Smokeless tobacco non-user [employer] Phone: Start: 06-25-2023 End: 02-15-2024 Tobacco smoking status [facility] Sex Assigned At Male [facility] Start: 1950 Sex Assigned At Male Estrella [facility] Start: 06-25-2024 Sex Male (finding) [facility] Medical Equipment Procedure Code Equipment Code Equipment Origin al Text Equipment Identifier Dates Lens Intraocular Bcnvx 19+ Diopt 6x12.5 Mm Acryl [employer] - [id number] Start: 09-19-2021 Accu-Chek Softcl ix Lancets - Start: 11-22-2022 Goals Date Patient Goal Desired Activity /State Functional Status Date Assessment Result Facility 06-09-2024 Functional Status N/A [facility] 02-15-2024 Functional Status N/A [facility] 12-21-2023 Functional Status N/A [facility] 11-19-2023 Functional Status N/A [facility] 06-25-2023 Functional Status N/A [facility] 02-26-2023 Functional Status N/A [facility] 11-27-2022 Functional Status N/A [facility] 06-05-2022 Functional Status N/A [facility] 03-19-2022 Functional status Patient at Baseline [facility] Work Phone: 03-16-2022 Functional status Functional Status Comme nt [facility] Work Phone: 03-14-2022 Functional Status N/A [facility] 02-27-2022 Functional Status N/A [facility] Mental Status Date Assessment Result Facility 03-19-2022 Cognitive function Cognitive Sta tus Patient at Baseline [facility] Work Phone: Clinical Notes 06-09-2021 to 07-03-2024 Note Date & Type Note Facility 07-03-2024 [facility] 06-09-2024 Hospital Discharge instructions Patient Education 06/09/2024 [...] Follow these instructions at home: Medicines Take xcpu-ksu-ddnhbow and prescription medicines only as told by [...] important. Where to find more information National [place] of Diabetes and Digestive and Kidney Diseases: [...] depends on the type of prostatitis. Take ffgf-wze-gymbqcd and prescription medicines only as told by [...] provider. Document Revised: 03/15/2023 Document Reviewed: 03/15/2023 [employer] Patient Education 2023 Loaded Pocket. Follow Up Care 02/15/2024 10:00:51 With:NICOLE DIAZ, Cristo Frances, URL Address: [facility] [address] [place] [address]- [phone] When: Unknown Comments:4 mos w/ PVR [facility] 06-09-2024 Note Patient Education Infectious Disease [...] these instructions at home: Medicines ??? Take rtyo-eya-qilalpe and prescription medicines only as told by [...] This is important. (more content not included)... [facility] 02-15-2024 Hospital Discharge instructions Patient Education 02/15/2024 [...] Follow these instructions at home: Medicines Take hcrq-jyb-tccqocz and prescription medicines only as told by [...] important. Where to find more information National [place] of Diabetes and Digestive and Kidney Diseases: [...] depends on the type of prostatitis. Take itcw-ucu-kanuubv and prescription medicines only as told by [...] provider. Document Revised: 03/15/2023 Document Reviewed: 03/15/2023 [employer] Patient Education 2023 Loaded Pocket. Follow Up Care 12/21/2023 08:32:25 With:NICOLE DIAZ, Cristo Frances, URL Address: [address] [place], [place] [id number]- When: Unknown [facility] 02-15-2024 Note Patient Education Infectious Disease [...] these instructions at home: Medicines ? Take ftwd-vif-pvgialv and prescription medicines only as told by [...] Where to find more information ? National [place] of Diabetes and Digestive a (more content not included)... [facility] 12-24-2023 Note [facility] 12-24-2023 Note [facility] 12-21-2023 Hospital Discharge instructions Patient Education 12/21/2023 [...] told by your health care provider. Take pjqb-kgg-yyupwdl and prescription medicines only as told by [...] provider. Document Revised: 11/08/2021 Document Reviewed: 11/08/2021 [employer] Patient Education 2022 Loaded Pocket. 12/21/2023 08:28:11 Epididymitis Epididymitis Epididymitis is inflammation [...] Follow these instructions at home: Medicines Take uswn-sqb-zqvddau and prescription medicines only as told by [...] provider. Document Revised: 12/07/2021 Document Reviewed: 12/07/2021 [employer] Patient Education 2022 Loaded Pocket. Follow Up Care 11/19/2023 09:46:55 With:NICOLE DIAZ, Cristo Frances, URL Address: [address] [place] [address] [place] [address]- When: Unknown [facility] 12-21-2023 Note Patient Education Urology Orchitis [...] by your health care provider. ? Take vezb-iie-qmgwwtp and prescription medicines only as told by [...] care provider (more content not included)... Kevyn [facility] 12-19-2023 Note [facility] 11-23-2023 Note S/P TAVR Recent TTE - Aortic valve stable- - awaiting repeat echocardiogram scheduled at [facility] this week to assess cardiac function and AO valve/doppler [facility] 11-23-2023 Note [facility] 11-23-2023 Note Hypertension labile with dizziness/lightheadedness, syncope= decrease lisinopril to 10 mg daily and if b/p remains low and symptomatic recommended to then decrease to 5 mg daily. [facility] 11-23-2023 Note [facility] 11-23-2023 Note [facility] 11-22-2023 Note [facility] 11-19-2023 Hospital Discharge instructions Patient Education 11/19/2023 [...] Follow these instructions at home: Medicines Take cprm-yqw-ktredxg and prescription medicines only as told by [...] provider. Document Revised: 12/07/2021 Document Reviewed: 12/07/2021 [employer] Patient Education 2022 Loaded Pocket. 11/19/2023 09:36:26 Orchitis Orchitis Orchitis is inflammation [...] told by your health care provider. Take xfmt-vfk-ggexohk and prescription medicines only as told by [...] provider. Document Revised: 11/08/2021 Document Reviewed: 11/08/2021 [employer] Patient Education 2022 Loaded Pocket. Follow Up Care 05/28/2023 09:33:29 With:NICOLE DIAZ, Cristo Frances, URL Address: [facility] [address] , [place] [address]- [phone] When: Unknown Comments:1 month (no labs) [facility] 11-19-2023 Note Patient Education Urology Epididymitis [...] these instructions at home: Medicines ? Take mktw-csv-euuijsw and prescription medicines only as told by [...] fluid to keep (more content not included)... [facility] 11-16-2023 Note [facility] 11-08-2023 [place] note Note Date/Time November 08, 2023 7:20am [facility] [address] [place] [address] Wound Center Provider Note Signed Patient: Marilu Dan MR#: [id number] : 1950 Acct:[id number] Age/Sex: 73 / M Copies to: Mary BethMD Narcisa Blanco APRN~ HPI Date of Visit Date of Visit: Date of Service: 11/08/2023 Time of Service: 07:18 Narrative HPI: 10/30/23 Marilu is a 73 year old male presenting to [facility] for an initial visit for eval and treatment of scrotal/sacral/buttock area ulcers and fungal rash. He was referred by urology. His and daughter are present today. He has hhc through [facility] and this should continue. 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 Assistive Device Used Today: Cane Lives with:: Spouse Appetite Description: Within Normal Limits Who helps w/ dressing change?: Family and Home Health Why Do You Need Help?: Can't Reach Ulcer, Unsafe leave home by self and Taxing effort to leave home Smoking Status: Former smoker [facility] Medical History (Updated 10/30/23 @ 07:26 by [...] Pressure Ulcer/Injury Staging: Stage 3 Bed Appearance: [place] and Yellow Percent of Wound Bed Granulated/Red: 80 Percent of Devitalized: 20 Length (cm): 1.8 Width (cm): 1.2 Depth (cm): 0.1 CM Sq: 2.160 Surrounding Tissue Appearance: [place] Surrounding Tissue Temp: Warm Drainage Amount: Moderate [...] Diabetes mellitus, type 2: Qualifiers: Diabetes mellitus ad terminal makeup operator insulin use: without ad terminal makeup operator use Diabetes mellitus complication status: with circulatory [...] <Electronically signed by JOSE ENRIQUE Mckee> 11/08/23719 [facility] Work Phone: 1(318) 698-767206-18-2024 [place] note Author Narcisa Mckee [facility] October 30, 2023 7:33am Note Date/Time October 30, 2023 7:33 am [facility] [address] [place] [address] Wound Center Provider Note Signed Patient: Marilu Dan MR#: [id number] : 1950 Acct:[id number] Age/Sex: 73 / M Copies to: MD Narcisa Gibson APRN~ HPI Date of Visit Date of Visit: Date of Service: 10/30/2023 Time of Service: 07:23 Narrative HPI: 10/30/23 Marilu is a 73 year old male presenting to [facility] for an initial visit for eval and treatment of scrotal/sacral/buttock area ulcers and fungal rash. He was referred by urology. His and daughter are present today. He has hhc through [facility] and this should continue. 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 Used Today: Kenny Lives with:: Spouse Appetite Description: Within Normal Limits Who helps w/ dressing change?: Family and Home Health Why Do You Need Help?: Can't Reach Ulcer, Unsafe leave home by self and Taxing effort to leave home Smoking Status: Former smoker [facility] Medical History (Updated 10/30/23 @ 07:26 by [...] Pressure Ulcer/Injury Staging: Stage 3 Bed Appearance: [place] and Yellow Percent of Wound Bed Granulated/Red: 5 Percent of Devitalized: 95 Length (cm): 4.8 Width (cm): 2.5 Depth (cm): 0.2 CM Sq: 12.000 Surrounding Tissue Appearance: [place] Surrounding Tissue Temp: Warm Drainage Amount: Moderate [...] Diabetes mellitus, type 2: Qualifiers: Diabetes mellitus nursing home insulin use: without nursing home use Diabetes mellitus complication status: with circulatory [...] signed by JOSE ENRIQUE Mckee> 10/30/23 0733 [facility] Work Phone: 1(188) 118-449206-14-2024 [facility] NoteSent the AVS to [facility] 10-12-20[facility] 10-11-2023 NoteSocial worker met with patient at the bedside to discuss discharge plans and need for HHC. workers compensation paralegal sent out several HHC referrals. Awaiting accepting agency. [facility] will continue to follow. [facility] accepted. AVS updated.[facility]05-30-2024 Note [facility]05-30-20[facility]24 Note [facility]05-29-[facility]24 Note [facility]05-27-20[facility]24 Note [facility]05-25-20[facility]2024 Note [facility]05-09-2024 [facility]24 Note [facility]04-29-20[facility]24 Note [facility]04-05-[facility] Hospital Discharge instructions Patient Education 06/25/2023 09:48:36 [...] provider. Document Revised: 04/05/2020 Document Reviewed: 04/05/2020 [employer] Patient Education 2022 Loaded Pocket. Follow Up Care 06/20/2023 07:47:35 With:NICOLE DIAZ, Cristo Frances, URL Address: [facility] [address] , [place] [address]- [phone] When: Unknown Comments:has f/u scheduled 11/19/23 [facility] 11-22-2023 Evaluation note* Encounter Date Diagnosis Assessment Notes Treatment Notes Treatment Clinical Notes Mar, Hyperglycemia due to type 2 diabetes mellitus (ICD-10 - E11.65) [facility] 10-16-2023 Hospital Discharge instructions Patient Education [...] urethra. Follow these instructions at home: Take axfo-xgg-cpesktj and prescription medicines only as told by [...] provider. Document Revised: 11/16/2021 Document Reviewed: 11/16/2021 [employer] Patient Education 2022 Loaded Pocket. Follow Up Care 11/27/2022 10:22:53 With:NICOLE DIAZ, Cristo Frances, URL Address: [facility] [address] , [place] [address]- When:Within 3 Month(s) Comments:w/AFSHAN [facility] 07-17-2023 Hospital Discharge instructions Patient Education [...] urethra. Follow these instructions at home: Take qdwi-zmd-wfdzaxd and prescription medicines only as told by [...] provider. Document Revised: 11/16/2021 Document Reviewed: 11/16/2021 [employer] Patient Education 2022 Loaded Pocket. Follow Up Care 09/25/2022 16:49:26 With:NICOLE DIAZ, Cristo Frances, URL Address: [facility] [address], [place] [address]- [phone] When: Unknown Comments:3 mos [facility] 07-13-2023 Evaluation note* Encounter Date Diagnosis Assessment Notes Treatment Notes Treatment Clinical Notes Nov, Hyperglycemia due to type 2 diabetes mellitus (ICD-10 - E11.65) [facility] 05-08-2023 Evaluation note* Encounter Date Diagnosis Assessment Notes Treatment Notes Treatment Clinical Notes September, Diabetic polyneuropathy associated with type 2 diabetes mellitus (ICD-10 - E11.42) [facility] 05-01-2023 Evaluation note* Encounter Date Diagnosis Assessment Notes Treatment Notes Treatment Clinical Notes September, Skin ulcer of toe of right foot, limited to breakdown of skin (ICD-10 - L97.511) No open area, mainly erythema. Agrees to podiatry referral for nail care and rx shoes. [facility] 04-13-2023 Evaluation note* Encounter Date Diagnosis Assessment Notes Treatment Notes Treatment Clinical Notes Aug, Diabetic polyneuropathy associated with type 2 diabetes mellitus (ICD-10 - E11.42) Hand wrote order for diabetic shoes. Trial of Lyrica as a new medication. We will start with low-dose and check again in 1 month consider increasing dose at that time. [facility] 02-28-2023 Evaluation note* Encounter Date Diagnosis Assessment Notes Treatment Notes Treatment Clinical Notes Jun, Right leg pain (ICD-10 - M79.604) Discussed US to r/o DVT and then consider more compression hose, elevation and tylenol for pain Jun, Right hip pain (ICD-10 - M25.551) no injury. will base referral if needed on Xray result. [facility] 01-23-2023 Hospital Discharge instructions Patient Education [...] reconstructed. Follow these instructions at home: Take dlss-ibm-wdhawoa and prescription medicines only as told by [...] 05/26/2016 Document Revised: 12/11/2018 Document Reviewed: 12/11/2018 [employer] Patient Education 2020 Loaded Pocket. Follow Up Care 05/02/2022 08:31:24 With:NICOLE DIAZ, Cristo Frances, URL Address: [facility] [address] [place] [address]- When: Unknown [facility] 11-05-2022 [place] note Author Neno Moreira [facility] March 18, 2022 10:39am Note Date/Time March 18, 2022 1 0:28am [facility] [address] [place] [address] Hospitalist Progress Note Signed Patient: Marilu Dan MR#: [id number] : 1950 Acct:[id number] Age/Sex: 71 / M Adm Date: 2 Loc: Room: [address] [place] [address] Type: ADM IN Attending Dr: Neno Moreira MD Copies to: ~ Date of Service: 03/18/2022 Subjective Subjective Narrative: Patient was seen and examined at bedside. Patient remained afebrile and hemodynamically stable overnight. Reports improvement in his symptoms. denies any active complaints. Underwent angiographic evaluation yesterday patent grafts, no interventions needed. Also we got a blood culture report from [facility] that showed proteus and Enterobacter detected in [...] signed by Neno Moreira MD> 03/18/22 1039 [facility] Work Phone: 1(755) 348-595311-04-2022 Consult note Author Marlon Shetty [facility] March 17, 2022 2:27pm Note Date/Time March 17, 2022 2 :21pm [facility] [address] [place] [address] Cardiology Consult Note Signed Patient: Marilu Dan MR#: [id number] : 1950 Acct:[id number] Age/Sex: 71 / M Adm Date: 2 Loc: Room: [address] [place] [address] Type: ADM IN Attending Dr: Neno Moreira MD Copies to: MD Neno Gibson MD W Scott Sheldon, DO~ Cardiology HPI History of Present Illness Consult Date: 03/17/22 Reason for Consult: Acute non-ST elevation [place] HPI: Mr. Dan is a 71 year old male seen in interventional cardiology consultationat request of the hospitalist for acute non-ST elevation myocardial infarction. Patient was transferred from [place] primarily due to urosepsis. He presented to [...] noted for ASHD with four-vessel bypass in [place] around the 2014 time period. This was followed by TAVR around 2017, and patient continues to follow with primary director of field service Dr. Ospina. He has had no complaints [...] L 0.9 L 0.9 L (1.00-4.8) x10E3/uL [place] # (Auto) 0.9 H 1.0 H 0.9 [...] signed by Marlon Shetty DO> 03/17/22 1427 [facility] Work Phone: 1(271) 549-231211-04-2022 [place] note Author Neno Moreira [facility] March 17, 2022 2:05pm Note Date/Time March 17, 2022 2 :05pm [facility] [address] [place] [address] Hospitalist Progress Note Signed Patient: Marilu Dan MR#: [id number] : 1950 Acct:[id number] Age/Sex: 71 / M Adm Date: 2 Loc: Room: [address] [place] [address] Type: ADM IN Attending Dr: Neno Moreira [...] pending - ICU monitoring Hypotension presented on hgjaexqbl-rvktzwomy-dmeud responsive ? UA positive for UTI. ? [...] signed by Neno Moreira MD> 03/17/22 1405 [facility] Work Phone: 1(585) 449-709411-04-2022 [facility] History and physical note Author Paulina Alexander [facility] March 17, 2022 4:30am Note Date/Time March 17, 2022 4 :25am [facility] [address] [place] [address] Hospitalist H&P Signed Patient: Marilu Dan MR#: [id number] : 1950 Acct:[id number] Age/Sex: 71 / M Adm Date: 2 Loc: Room: [address] [place] [address] Type: ADM IN Attending Dr: Madeline Barry [...] and after discussing the case with our director of field service on-call patient was started on heparin drip [...] % (Auto) 13.2 % (.) 03/17/22 03:38 [place] % (Auto) 14.6 % (.) 03/17/22 03:38 Eos % (Auto) 0.0 % (.) 03/17/22 03:38 Baso % (Auto) 0.2 % (.) 03/17/22 03:38 Neut # (Auto) 5.1 x10E3/uL (1.8-7.7) 03/17/22 03:38 Lymph # (Auto) 0.9 x10E3/uL (1.00-4.8) L 03/17/22 03:38 [place] # (Auto) 1.0 x10E3/uL (0.0-0.8) H 03/17/22 [...] [place] Documented By: Paulina Walker MD 2 [id number] Signed By: <Electronically signed by Paulina Walker MD> 03/17/22 0430 [facility] Work Phone: 1(293) 772-588011-01-2022 Hospital Discharge instructions Patient Education 03/14/2022 13:27:00 [...] Follow these instructions at home: Medicines Take omqq-kgl-wcyrlxu and prescription medicines only as told by [...] or the blood stops without treatment. Take hxew-lnc-quhhhbc and prescription medicines only as told by your health care provider. Drink enough fluid to keep your urine clear or pale yellow. This information is not intended to replace advice given to you by your health care provider. Make sure you discuss any questions you have with your health care provider. Document Released: 04/30/2006 Document Revised: 09/24/2019 Document Reviewed: 06/02/2017 [employer] Patient Education 2020 Loaded Pocket. Follow Up Care 02/27/2022 11:25:53 With:NICOLE DIAZ, Cristo Frances, URL Address: [facility] [address] , [place] [address]- [phone] When:Within 3 Day(s) Comments:Sunday for tinsley removal [facility] [place] 10-17-2022 Hospital Discharge instructions Patient Education [...] Follow these instructions at home: Medicines Take lftp-hlt-tvkassl and prescription medicines only as told by [...] or the blood stops without treatment. Take djsu-kxn-dtvgpnh and prescription medicines only as told by your health care provider. Drink enough fluid to keep your urine clear or pale yellow. This information is not intended to replace advice given to you by your health care provider. Make sure you discuss any questions you have with your health care provider. Document Released: 04/30/2006 Document Revised: 09/24/2019 Document Reviewed: 06/02/2017 [employer] Patient Education 2020 Loaded Pocket. Follow Up Care 02/26/2022 13:59:10 With:NICOLE DIAZ, Cristo Frances, URL Address: [facility] [address] [place] [phone] When: Unknown [facility] 04-26-2022 History of Present illness Narrative* [...] test at this time. documented in this [facility] [employer] Work Phone: 1(236) 235-494001-27-2022 NoteClinical Information Procedure: left ear auriculectomy, Pre-operative [...] present at the tissue margins. Solar elastosis. [id number] [id number] [id number] [id number] [id number] Cody Gomes MD PhD (Electronically signed by) Verified: 06/13/21 12:25[facility] North Health CenterComment on above:Performed By: #### SPR #### [facility] (DEFAULT) [address], [place] [address]Myddhxqeo summary Author Neno Moreira [facility] March 19, 2022 1:57pm Note Date/Time March 19, 2022 1 :32pm [facility] [address] [place] [address] Discharge Summary Signed Patient: Marilu Dan MR#: [id number] : 1950 Acct:[id number] Age/Sex: 71 / M Adm Date: 2 Loc: Room: 0U2023-[address]: Neno Moreira MD Copies to: [...] and weakness for which he went to [facility] for further evaluation and management. Patient was [...] and after discussing the case with our director of field service on-call patient was started on heparin drip [...] treat underlying urosepsis and follow-up withhis primary director of field service as outpatient. Patient was started on Azactam [...] % (Auto) 66.2, Lymph % (Auto) 20.4, [place] % (Auto) 12.2, Eos % (Auto) 1.0, Baso % (Auto) 0.2, Neut # (Auto) 3.3, Lymph # (Auto) 1.0, [place] # (Auto) 0.6, Eos # (Auto) 0.0, [...] PCP after discharge DISCHARGE INSTRUCTIONS FOR CARDIAC OWNER CONSULTING ENGINEER PHONE NUMBER OF YOUR PHYSICIAN: [phone] PROCEDURE: Heart Cath The following instructions have [...] cold, numb, blue or white, call the director of field service immediately. 4. ACTIVITY: You are advised to [...] bottle, follow the instructions on the bottle. [facility] is not responsible for incorrect prescription information [...] <Electronically signed by Neno Moreira MD> 03/19/22 4303 [facility] Work Phone: Evaluation + Plan note Future Appointments Appointment Date:03/14/2022 12:45:00 PM Scheduled Provider:Cristo RIVERA MD Location:[facility] Appointment Type:URO Procedure 15 min Diagnostic Tests Pending * Creatinine 02/27/22 [facility] evaluation + Plan note Future Appointments Appointment Date:03/17/2022 08:30:00 AM Scheduled Provider: Location:[facility] Appointment Type:URO Nurse Visit [facility] evaluation + Plan note Future Appointments Appointment Date:07/18/2022 01:00:00 PM Scheduled Provider:Cristo RIVERA MD Location:[facility] Appointment Type:URO Procedure 15 min [facility] evaluation + Plan note Future Appointments Appointment Date:02/26/2023 09:30:00 AM Scheduled Provider:Cristo RIVERA MD Location:[facility] Appointment Type:URO Office Visit [facility] evaluation + Plan note Future Appointments Appointment Date:05/28/2023 08:45:00 AM Scheduled Provider:Cristo RIVERA MD Location:[facility] Appointment Type:URO Office Visit [facility] evaluation + Plan note Future Appointments Appointment Date:11/19/2023 08:45:00 AM Scheduled Provider:Cristo RIVERA MD Location:[facility] Appointment Type:URO Office Visit [facility] evaluation + Plan note Future Appointments Appointment Date:12/21/2023 09:15:00 AM Scheduled Provider:Cristo RIVERA MD Location:[facility] Appointment Type:URO Office Visit [facility] evaluation + Plan note Future Appointments Appointment Date:02/15/2024 08:45:00 AM Scheduled Provider:Cristo [facility]IVERA [facility] Type:URO Office Visit [facility] evaluation + Plan note Future Appointments Appointment Date:06/13/2024 08:00:00 AM Scheduled Provider:Cristo RIVERA MD Location:[facility] Appointment Type:URO Office Visit [facility] evaluation + Plan note Future Appointments Appointment Date:06/13/2024 08:00:00 AM Scheduled Provider:Cristo RIVERA MD [facility] Type:URO Office Visit Diagnostic Tests Pending * Urine Culture 02/15/24 [facility] Evaluation + Plan note Future Appointments Appointment Date:06/13/2024 08:00:00 AM Scheduled Provider:Cristo RIVERA MD Location:[facility] Appointment Type:URO Office Visit Diagnostic Tests Pending * Urine Culture 03/25/24 [facility] evaluation + Plan note Future Appointments Appointment Date:09/29/2024 09:30:00 AM Scheduled Provider:Cristo RIVERA MD Location:[facility] Appointment Type:URO Office Visit [facility] evaluation note* Diagnosis Combined forms of age-related cataract of left eye- Primary Other and combined forms of senile cataract documented in this encounter [facility] Work Phone: evaluation note* Diagnosis Onset Date Resolution Status Acute UTI acute Tinsley catheter in place prior to arrival acute Gram-negative bacteremia acu te History of heart bypass surgery acute History of heart surgery acu te Hypotension acute NSTEMI (non-ST elevated myocardial infarction) acute Sepsis acute [facility] Work Phone: Evaluation noteNo assessment information available [facility] Work Phone: evaluation noteNo InformationNort [employer] Other evaluation note* Diagnosis Onset Date Resolution Status Coronary artery disease acut e Diabetes mellitus, type 2 ac rasheeda Hypotension acute Sepsis acute Candidiasis acute Decubitus ulcer of left buttock acute Diabetes mellitus, type 2 ac rasheeda Inflammation acute Use of cane as ambulatory aid acute Wound pain acute [facility] Work Phone: Evaluation note* Diagnosis Onset Date Resolution Status Admit Date Fever acute June 25, 2024 9:35am Influenza A acute June 9:35am [facility] Work Phone: History general Narrative - [...] History Heart attack , pneumonia sepsis 02/2022 [facility] Other Hospital course Narrative No data available for this section [facility] Hospital Discharge instructions* Instructions* Roberta Vazquez, [...] the healing period. The office number is [phone]. Take surgery bag and all eye drops to Dr. Vazquez's office tomorrow at 9:50am. You may resume your normal diet. Start your eye drops tomorrow after your post-op appointment: Ofloxacin/Polytrim one drop to the operated eye 4 times daily Prednisolone one drop to the operated eye 4 times daily documented in this [facility] Work Phone: Hospital Discharge instructions Additional Instructions -Take levofloxacin as prescribed daily for 7 more days. Hold Aricept while taking this antibiotics. -Follow up with urology as outpatient -Follow up with cardiology as outpatient -Follow up with PCP after discharge DISCHARGE INSTRUCTIONS FOR CARDIAC OWNER CONSULTING ENGINEER PHONE NUMBER OF YOUR PHYSICIAN: [phone] PROCEDURE: Heart Cath The following instructions have [...] cold, numb, blue or white, call the director of field service immediately. 4. ACTIVITY: You are advised to [...] bottle, follow the instructions on the bottle. [facility] is not responsible for incorrect prescription information provided by the patient during their visit. Do not stop your medications without consulting your health care provider. Please take the list with you to your next doctor's appointment.[facility] Work Phone: Hospital Discharge instructions No data available for this section [facility] Progress note No data available for this section [facility] progress note Author Narcisa Mckee [facility] December 04, 2023 7:48am Note Date/Time December 04, 2023 7:48 am [facility] [address] [place], [place] [id number] Wound Center Provider Note Signed Patient: Marilu Dan MR#: [id number] : 1950 Acct:[id number] Age/Sex: 73 / M Copies to: MD Narcisa Gibson, CRIME LABORATORY ANALYST~ HPI Date of Visit Date of Visit: Date of Service: 12/04/2023 Time of Service: 07:46 Narrative HPI: 10/30/23 Marilu is a 73 year old male presenting to [facility] for an initial visit for eval and treatment of scrotal/sacral/buttock area ulcers and fungal rash. He was referred by urology. His and daughter are present today. He has hhc through [facility] and this should continue. 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 insulin use: without nursing home use Diabetes mellitus complication status: with circulatory [...] signed by JOSE ENRIQUE Mckee> 12/04/23 0748 [facility] Work Phone: Reason for visit Narrative* Auth/Cert Specialty Diagnoses / Procedures Referred By Contac t Referred To Contact Diagnoses Combined forms of age-related cataract COMBINED FORMS OF AGE RELATED CATARACT 2+NS, 2+PSC, 2+CS Procedures NM XCAPSL CTRC RMVL INSJ IO LENS PROSTH W/O ECP EYE CATARACT EMULSIFICATION IOL IMPLANT Roberta Vazquez Y, DO [address] [place] [address] [address] [place] [address] Referral ID Status Reason Start Date Expiration Date Visits Re quested Visits Authorized 1 [employer] Phone: Summary Purpose Family History No Family History Records Found Relationship Condition Age at Onset Recorded Date/T jonelle father Heart disease Unknown Not Specified Diabetes mellitus Unknown Heart disease Unknown Relationship Condition Age at Onset Recorded Date/T jonelle father Heart disease Unknown mother Diabetes mellitus Unknown Heart disease Unknown Advance Directives No Advanced Directives Records FoundDocuments on File Type Date Recorded Patient 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 Name: Marilu Dan Admitted: 11/04/2019 Discharged: [...] symptoms of angina, shortness of breath with [id number] exertion. He is currently NYHA class 3. The patient was evaluated by our multi-discipli (more content not included)... Note MR#: [id number] [facility] Pt. Name: Marilu Dan Admitted: [...] man who presented as a transfer from [facility] after injuring his leg during [...] m25.551 Chief Complaint Amb Documentation Hosp f/u ([facility])//needs wounds checked Chief Complaint Amb Documentation Hosp f/u ([facility])//needs wounds checked Open Wound - cart room wellness Reason for Visit Coronary artery dise ase Diabetes mellitus, type 2 Hypotension Sepsis Candidiasis Decubitus ulcer of left buttock Diabetes mellitus, type 2 Inflammation Use of cane as ambulatory aid Wound pain Chief Complaint Amb Documentation Hosp f/u ([facility])//needs wounds checked wellness Open Wound [...] 25, 2024 9:35am Reason for Referral Reason [facility] - ne eds diabetic foot exam, shoes and nail care. Diagnosis 1 Skin ulcer of toe of right foot, limited to breakdown of skin (L97.511) Referral Organization [facility] Shannon evans Referring Provider First Name Mary Beth Referring Provider Last Name Hong Referring Provider Specialty Family [facility] Referred Organization [facility] Referred Provider KAMILA WILSON Referred Address ,[place], [place],[address] Referred Provider Specialty Podiatry - S urgical [...] section and content) DATE CREATED AUTHOR 07/02/2020 [facility] DATE CREATED AUTHOR AUTHOR'S ORGANIZ ATION 12/17/2021 [facility] DATE CREATED AUTHOR AUTHOR'S ORGANIZ ATION 03/24/2022 [facility] DATE CREATED AUTHOR AUTHOR'S ORGANIZ ATION 05/05/2022 [facility] DATE CREATED AUTHOR AUTHOR'S ORGANIZ ATION 05/05/2022 [facility] DATE CREATED AUTHOR AUTHOR'S ORGANIZ ATION 07/14/2023 [facility] DATE CREATED AUTHOR AUTHOR'S ORGANIZ ATION 12/06/2023 [facility] DATE CREATED AUTHOR AUTHOR'S ORGANIZ ATION 02/18/2024 [facility] DATE CREATED AUTHOR AUTHOR'S ORGANIZ ATION 03/26/2024 [facility] DATE CREATED AUTHOR AUTHOR'S ORGANIZ ATION 03/29/2024 [facility] DATE CREATED AUTHOR AUTHOR'S ORGANIZ ATION 06/10/2024 [facility] DATE CREATED AUTHOR AUTHOR'S ORGANIZ ATION 06/23/2024 [facility] DATE CREATED AUTHOR AUTHOR'S ORGANIZ ATION 07/05/2024 [facility] Scheduled Active and Recently Administ ered Medications [...] (NoRateChange - Provider: Bishop Perez APRN - EMPLOYEE WELLNESS/FITNESS COORDINATOR) lactated ringers infusion IntraVENous, at 100 mL/hr, [...] October 18, 2023 End: October 18, 2023 Balloon Design Printer Relationship Specialty Start Date End Date Mary Beth Pitts MD PCP - General 03/03/16 Balloon Design Printer Relationship Specialty Start Date End Date Mary [...] MD Other Provider Active Linh Quintanilla , [facility] Other Provider Active Debi Goins MD Other [...] Status: Inactive Member Role Status Dates Mary Bteh Pitts MD Primary Care Provider Active Start: December 04, 2023 End: December 04, 2023 Narcisa Mckee APRN Attending Provider Active St art: December 04, 2023 End: December 04, 2023 Team Status: Active Member Role Status Dates Qing Malik APRN CARPENTRY SUPERVISOR-C Primary Care Provider Active Team Status: Inactive Member Role Status Dates Qing Malik APRN CARPENTRY SUPERVISOR-C Primary Care Provider, Attending Provider Active Start: [...] BE BASED ON THE PRIMARY CLINICAL RECORDS. X [employer] [facility]. provides no warranty or guarantee of the accuracy or completeness of information in this document.
[2024-07-06 09:11] LABS: Glucometer 159 mg/dL (74-106)
[2024-07-06] MEDS: INSULIN ASPART 300 UNIT/3 ML PEN SUBQ ×4 (09:31→21:10)
[2024-07-06] MEDS: LISINOPRIL 20 MG TABLET PO (09:32)
[2024-07-06] MEDS: TAMSULOSIN HCL 0.4 MG CAPSULE PO (09:32)
[2024-07-06] MEDS: METOPROLOL TARTRATE 50 MG TABLET PO (09:32)
[2024-07-06] MEDS: DUTASTERIDE 0.5 MG CAPSULE PO (09:32)
[2024-07-06] MEDS: AMLODIPINE BESYLATE 5 MG TABLET 10 MG PO (09:32)
[2024-07-06] MEDS: ISOSORBIDE MONONITRATE 60 MG TAB.ER.24H PO (09:32)
--- NOTE | 2024-07-06 10:51 | PM.HP ---
HPI H&P: HPI History of Present Illness Chief complaint: dehydration weakness metabolic encephalopathy Narrative: 74-year-old male who currently lives with his was brought over for generalized weakness and confusion. For the last past 3 weeks patient has been feeling unwell with increasing generalized weakness along with cough and shortness of breath. He also has poor oral intake has not not been eating much for past 2 to 3 weeks. Patient was diagnosed with influenza a infection about 3 weeks ago. Workup in ER revealed evidence of clinical dehydration likely contributing to patient's mental status change for which she was started on IV hydration and admitted overnight for observation. He was also noted to be hypoxic even in the morning with pulse ox down to 86% on ambulation. When I evaluated him, patient reported generalized weakness but felt overall better and was able to finish his breakfast. He also has a productive cough and mild dyspnea on exertion. His chest x-ray did not reveal any evidence of pneumonia. CT head was also negative for any acute intracranial pathology. Patient is currently 1 L of oxygen via nasal cannula. Opioid HPI Opioid Management Most Recent Pain and Opioid Data: Last Pain Scale 0 07/06/24 10:56 07/06/24 Last Pain Assessment 07/06/24 10:42 Last MAR Pain Assessment 07/06/24 10:56 Last ORT Total Score 0 07/06/24 02:28 07/06/24 Last ORT Risk Category Low Risk 07/06/24 02:28 07/06/24 Review of Systems ROS Status of ROS 10 or more systems reviewed and unremarkable except as noted in history and below [facility] Medical History (Updated 07/06/24 @ 11:12 by Shaikh Maddison MD) HTN (hypertension) ?I10 - Essential (primary) hypertension (ICD-10) HLD (hyperlipidemia) ?E78.5 - Hyperlipidemia, unspecified (ICD-10) Afib ?I48.91 - Unspecified atrial fibrillation (ICD-10) Pyelonephritis ?N12 - Tubulo-interstitial nephritis, not specified as acute or chronic (ICD-10) Severe sepsis with septic shock ?A41.9 - Sepsis, unspecified organism (ICD-10) ?R65.21 - Severe sepsis with septic shock (ICD-10) Leukocytosis ?D72.829 - Elevated white blood cell count, unspecified (ICD-10) Fever ?R50.9 - Fever, unspecified (ICD-10) Leg fracture, left ?S82.92XA - Unspecified fracture of left lower leg, initial encounter for closed fracture (ICD-10) COPD (chronic obstructive pulmonary disease) ?J44.9 - Chronic obstructive pulmonary disease, unspecified (ICD-10) Diabetes ?E11.9 - Type 2 diabetes mellitus without complications (ICD-10) Sepsis ?A41.9 - Sepsis, unspecified organism (ICD-10) Surgical History History of atherectomy ?Z98.890 - Other specified postprocedural states (ICD-10) History of open heart surgery ?Z98.890 - Other specified postprocedural states (ICD-10) Heart valve replaced by other means ?Z95.4 - Presence of other heart-valve replacement (ICD-10) Social History Highest level of school completed/degree received: 10th grade Little interest or pleasure in doing things: not at all Feeling down, depressed, or hopeless: not at all Meds Home Medications and Allergies Home Medications ?Medication ?Instructions ?Recorded ?Confirmed ?Type amlodipine 10 mg tablet 10 mg PO DAILY 10/04/23 10/04/23 History dutasteride 0.5 mg capsule 0.5 mg PO DAILY 10/04/23 10/04/23 History isosorbide mononitrate 60 mg 60 mg PO DAILY 10/04/23 10/04/23 History tablet,extended release 24 hr lisinopril 20 mg tablet 20 mg PO DAILY 10/04/23 10/04/23 History metformin 500 mg tablet,extended 1,000 mg PO BID 10/04/23 10/04/23 History release 24 hr metoprolol tartrate 50 mg tablet 50 mg PO Q12H 10/04/23 10/04/23 History rivaroxaban 20 mg tablet (Xarelto) 20 mg PO Q24H 10/04/23 10/04/23 History simvastatin 40 mg tablet 40 mg PO DAILY 10/04/23 10/04/23 History sitagliptin phosphate 100 mg 100 mg PO BID 10/04/23 10/04/23 History tablet (Januvia) spironolactone 25 mg tablet 12.5 mg PO DAILY 10/04/23 10/04/23 History tamsulosin 0.4 mg capsule 0.4 mg PO Q24H 10/04/23 10/04/23 History Allergies Allergy/AdvReac Type Severity Reaction Status Date / Time Penicillins AdvReac Severe Swelling Verified 10/04/23 17:20 of Lip/Tongue/Throat sulfamethoxazole (From AdvReac Severe Swelling Verified 10/04/23 17:20 Bactrim) of Lip/Tongue/Throat trimethoprim (From Bactrim) AdvReac Severe Swelling Verified 10/04/23 17:20 of Lip/Tongue/Throat doxycycline AdvReac Mild Blister Verified 10/04/23 17:20 Exam Constitutional Vital Signs, click to edit/add: Last Vital Signs Temp 98.0 F 07/06/24 08:27 Pulse 74 07/06/24 08:27 Resp 18 07/06/24 10:42 BP 160/71 H 07/06/24 08:27 Pulse Ox 85 L 07/06/24 10:42 O2 Del Method Room Air 07/06/24 10:42 O2 Flow Rate 1 07/06/24 08:27 Documenting provider has reviewed patient's vital signs: yes Common normals: no apparent distress and oriented x3 General appearance: cooperative HENMT Common normals: normocephalic and head/scalp atraumatic Head and scalp: normocephalic and atraumatic Eye Common normals: conjunctivae normal and no scleral icterus Conjunctiva: conjunctiva(e) normal Respiratory Common normals: normal respiratory effort Effort & inspection: able to speak in complete sentences Auscultation: crackles Other: Appears a little short of breath at rest Cardio Common normals: regular rate, S1 normal heart sound and S2 normal heart sound Rate: regular rate Heart sounds: S1 normal and S2 normal GI Common normals: Normal to inspection, nondistended, normoactive bowel sounds present, soft to palpation, non-tender and no hepatosplenomegaly Palpation: soft and no hepatosplenomegaly Extremity Common normals: no clubbing, cyanosis or edema Neuro Common normals: oriented x3, moves all extremities and no focal motor deficits Psych Common normals: mental status grossly normal, denies hallucinations, denies homicidal ideation and denies suicidal ideation Results Labs Labs: Short CBC 07/05/24 Range/Units 21:20 WBC 10.5 (4.0-11.0) 10^3/uL Hgb 11.9 L (14.0-18.0) g/dL Hct 35.8 L (42.0-54.0) % Plt Count 292 (150-450) 10^3/uL BMP 07/05/24 21:20 Sodium 131 L Potassium 4.1 Chloride 98 Carbon Dioxide 25.6 BUN 18.0 Creatinine 1.02 Glucose 248 H Calcium 8.5 Urine 07/05/24 Range/Units 21:55 Urine Color Yellow (YELLOW) Urine Clarity Clear (CLEAR) Urine pH 5.0 (5.0-9.0) Ur Specific [place] >=1.030 A (1.005-1.025) Urine Protein Trace (NEG/TRACE) mg/dL Urine Glucose (UA) 100 A (NEGATIVE) mg/dL ABG ABG results: 07/05/24 21:35 ABG pH 7.410 ABG pCO2 38.5 ABG pO2 62.6 L ABG HCO3 24.4 ABG O2 Saturation 92.4 ABG Base Excess -0.3 Assessment and Plan Assessment and Plan (1) Acute metabolic encephalopathy: Assessment and Plan: Back to baseline mentation. No acute finding on CT head. Continue to monitor. (2) Hypoxia: Assessment and Plan: Likely secondary to recent influenza infection. No formal diagnosis of COPD but patient is a former smoker. Added prednisone along with azithromycin and DuoNebs. No evidence of pneumonia on chest x-ray. (3) Dehydration determined by examination: Assessment and Plan: Improved with IV hydration. Patient is now eating and drinking. Discontinue IV fluids (4) Influenza A: Assessment and Plan: No need for Tamiflu as infection was over 3 weeks ago. (5) Lactic acid acidosis: Assessment and Plan: Due to dehydration. (6) Diabetes: Assessment and Plan: Sliding is while inpatient. Qualifiers: Diabetes mellitus type: type 2 Diabetes mellitus penitentiary insulin use: without penitentiary use Diabetes mellitus complication status: without complication Qualified Code(s): E11.9 - Type 2 diabetes mellitus without complications (7) Afib: Assessment and Plan: On Xarelto for stroke prophylaxis. Continue with Lopressor. Qualifiers: Atrial fibrillation type: paroxysmal Qualified Code(s): I48.0 - Paroxysmal atrial fibrillation (8) HTN (hypertension): Assessment and Plan: Blood pressure is stable. Continue with amlodipine, lisinopril and Lopressor. Qualifiers: Hypertension type: primary hypertension Qualified Code(s): I10 - Essential (primary) hypertension (9) HLD (hyperlipidemia): Assessment and Plan: C/W simvastatin Qualifiers: Hyperlipidemia type: unspecified Qualified Code(s): E78.5 - Hyperlipidemia, unspecified
[2024-07-06] MEDS: GUAIFENESIN 200 MG/DEXTROMETHORPHAN 20 MG 10 ML UNIT DOSE CUP PO (11:20)
[2024-07-06] MEDS: AZITHROMYCIN 250 MG TABLET 500 MG PO (11:20)
[2024-07-06] MEDS: PREDNISONE 20 MG TABLET 40 MG PO (11:20)
[2024-07-06 11:36] LABS: Glucometer 236 mg/dL (74-106)
[2024-07-06] MEDS: IPRATROPIUM/ALBUTEROL SULFATE 3 ML AMPUL.NEB IH ×3 (11:51→22:13)
--- NOTE | 2024-07-06 11:52 | RESP.RT ---
placed on room air
[2024-07-06 16:47] LABS: Glucometer 200 mg/dL (74-106)
[2024-07-06 20:17] LABS: Glucometer 302 mg/dL (74-106)
[2024-07-06] MEDS: ATORVASTATIN CALCIUM 20 MG TABLET PO (21:10)
[2024-07-07] VITALS (7 sets, daily range): BP systolic 104–144; BP diastolic 52–68; PULSE 78–93; TEMP 36.3–36.7; O2SAT 84–97
[2024-07-07] MEDS: IPRATROPIUM/ALBUTEROL SULFATE 3 ML AMPUL.NEB IH ×2 (05:02→11:38)
[2024-07-07 06:47] LABS: Basophils Percent Auto 0.1 % (0.2-2.0); Eosinophils Percent Auto 0.1 % (0.9-7.0); Hematocrit 33.1 % (42.0-54.0); Hemoglobin 11.2 g/dL (14.0-18.0); Immature Granulocytes Abs Auto 0.06 10^3/uL (0.00-0.03); Immature Granulocytes Pct Auto 0.6 % (0.0-0.5); Mean Corpuscular HGB Conc 33.8 g/dL (29.9-35.2); Mean Corpuscular Volume 85.8 fL (80.0-94.0); Mean Platelet Volume 8.8 fL (9.5-13.5); Monocytes Absolute Auto 0.9 10^3/uL (0.3-0.8); Monocytes Percent Auto 8.7 % (1.7-12.0); Neutrophils Absolute Auto 7.1 10^3/uL (1.4-6.5); Neutrophils Percent Auto 70.5 % (43.0-75.0); Platelet Count 259 10^3/uL (150-450); Red Blood Count 3.86 10^6/uL (4.70-6.10); Red Cell Distribution Width 13.1 % (11.0-15.0); White Blood Count 10.1 10^3/uL (4.0-11.0)
[2024-07-07 07:03] LABS: Alanine Aminotransferase 8 U/L (16-63); Albumin Globulin Ratio 0.8; Albumin Level 2.4 g/dL (3.4-5.0); Alkaline Phosphatase 51 U/L (46-116); Anion Gap 13.8; Aspartate Amino Transferase 13 U/L (15-37); BUN Creatinine Ratio 15.6; Bilirubin Total 0.5 mg/dL (0.2-1.0); Calcium 8.7 mg/dL (8.5-10.1); Carbon Dioxide 25.9 mmol/L (21.0-32.0); Chloride 104 mmol/L (98-107); Estimated GFR (African America >60 (>=60 mL/min/1.73m^2); Estimated GFR (Non-African Ame >60 (>=60 mL/min/1.73m^2); Globulin 3.1 g/dL; Glucose 152 mg/dL (74-106); Potassium 3.7 mmol/L (3.5-5.1); Sodium 140 mmol/L (136-145); Total Protein 5.5 g/dL (6.4-8.2)
--- NOTE | 2024-07-07 08:07 | P.DS_ITS ---
DS: Providers Provider Date of admission: 07/06/24 02:13 Primary care physician: Susana Jackson MD Admitting clinician: Shaikh Maddison Discharging clinician: Hue Wei DS: Diagnosis Discharge Diagnosis (1) Acute metabolic encephalopathy: (2) Hypoxia: (3) Dehydration determined by examination: (4) Influenza A: (5) Lactic acid acidosis: (6) Diabetes: Qualifiers: Diabetes mellitus complication status: without complication Diabetes mellitus halfway insulin use: without halfway use Diabetes mellitus type: type 2 Qualified Code(s): E11.9 - Type 2 diabetes mellitus without complications (7) Afib: Qualifiers: Atrial fibrillation type: paroxysmal Qualified Code(s): I48.0 - Paroxysmal atrial fibrillation (8) HTN (hypertension): Qualifiers: Hypertension type: primary hypertension Qualified Code(s): I10 - Essential (primary) hypertension (9) HLD (hyperlipidemia): Qualifiers: Hyperlipidemia type: unspecified Qualified Code(s): E78.5 - Hyperlipidemia, unspecified DS: Summary Hospital Course Hospital Course: 74-year-old male who currently lives with his presented to the ER on 07/06/24 for generalized weakness and confusion. For the last past 3 weeks patient has been feeling unwell with increasing generalized weakness along with cough and shortness of breath. He also has poor oral intake has not not been eating much for past 2 to 3 weeks. Patient was diagnosed with influenza a infection about 3 weeks ago. Workup in ER revealed evidence of clinical dehydration likely contributing to patient's mental status change for which she was started on IV hydration. He was also noted to be hypoxic with pulse ox down to 84% on ambulation, and came up to 94% on continuous 2L NC oxygen. His chest x-ray did not reveal any evidence of pneumonia. CT head was also negative for any acute intracranial pathology. Patient would like to go home today. He has been getting up with his cane and is able to ambulate. Walk test revealed the need for home oxygen at 2L NC continuous. He has previous smoking history but quit about 40 years ago. He was told over the years he had COPD but states he's never had any testing. I have placed him on albuterol inhaler, spiriva, Azithromycin 250mg daily x 5 days and prednisone 40mg daily x 7 days. I have also encouraged him to use his OPEP at home. I have discussed with patient and the importance of getting established with pulmonary for PFT's in the future and to access the need for further oxygen, once he has improved. He has close follow up with his PCP, Dr. Jackson. He will return to the ER with any worsening signs or symptoms. There is also appointment made to establish with Dr. Cobb. Status at Discharge Functional status at discharge: uses cane/walker Overall status at discharge: patient is progressing back to baseline Time Spent with Patient Time attestation: Total time spent providing and/or coordinating discharge services: Time spent: greater than 30 minutes Exam Narrative Exam Narrative: General: Patient is alert, and oriented to person, place and time with normal affect, proper hygiene Skin: no visible rashes, or ulcers Head: atraumatic, acephalic Eyes: PERRLA, no nystagmus present, conjunctiva clear, no scleral icterus Ears: normal gross auditory acuity Neck: no masses palpated, normal thyroid Heart: Normal rate and rhythm, no murmurs/rubs/gallops Lungs: no audible wheezes, crackles and normal breath sounds all lung terry Abdomen: Normal audible bowel sounds, no distension, No palpable masses, no organomegaly, no rebound/guarding/ or rigidity Musculoskeletal: no swelling bilateral lower extremities Neuro: CN II-X grossly intact Constitutional Vital Signs, click to edit/add: Last Vital Signs Temp 97.8 F 07/07/24 05:00 Pulse 88 07/07/24 05:02 Resp 18 07/07/24 05:02 BP 144/68 H 07/07/24 05:00 Pulse Ox 95 07/07/24 05:02 O2 Del Method Nasal Cannula 07/07/24 05:02 O2 Flow Rate 2 07/07/24 05:02 DS: Data Data Completed and Pending Labs on day of discharge: Labs from last 24 hours 07/07/24 07/06/24 07/06/24 06:25 20:04 16:46 WBC 10.1 RBC 3.86 L Hgb 11.2 L Hct 33.1 L MCV 85.8 MCH 29.0 MCHC 33.8 RDW 13.1 Plt Count 259 MPV 8.8 L Neut % (Auto) 70.5 Lymph % (Auto) 20.0 L [place] % (Auto) 8.7 Eos % (Auto) 0.1 L Baso % (Auto) 0.1 L Neut # (Auto) 7.1 H Lymph # (Auto) 2.0 [place] # (Auto) 0.9 H Eos # (Auto) 0.0 Baso # (Auto) 0.0 Abs Immat Gran (auto) 0.06 H Imm/Tot Granulo (auto) 0.6 H Sodium 140 Potassium 3.7 Chloride 104 Carbon Dioxide 25.9 Anion Gap 13.8 BUN 14.0 Creatinine 0.90 Est GFR ( Amer) >60 Est GFR (Non-Af Amer) >60 BUN/Creatinine Ratio 15.6 Glucose 152 H Calcium 8.7 Total Bilirubin 0.5 AST 13 L ALT 8 L Alkaline Phosphatase 51 Total Protein 5.5 L Albumin 2.4 L Globulin 3.1 Albumin/Globulin Ratio 0.8 POC Glucose 302 H 200 H 07/06/24 07/06/24 11:27 09:00 WBC RBC Hgb Hct MCV MCH MCHC RDW Plt Count MPV Neut % (Auto) Lymph % (Auto) [place] % (Auto) Eos % (Auto) Baso % (Auto) Neut # (Auto) Lymph # (Auto) [place] # (Auto) Eos # (Auto) Baso # (Auto) Abs Immat Gran (auto) Imm/Tot Granulo (auto) Sodium Potassium Chloride Carbon Dioxide Anion Gap BUN Creatinine Est GFR ( Amer) Est GFR (Non-Af Amer) BUN/Creatinine Ratio Glucose Calcium Total Bilirubin AST ALT Alkaline Phosphatase Total Protein Albumin Globulin Albumin/Globulin Ratio POC Glucose 236 H 159 H Discharge Plan Discharge Disposition: Home, Self-Care Condition: Good Discharge Medications: New prednisone 20 mg Tablet 40 mg PO QD 7 Days Qty: 14 0RF dextromethorphan-guaifenesin 10-100 mg/5 mL Syrup 10 ml PO Q6H PRN (Reason: Cough) 7 Days Qty: 280 0RF azithromycin 250 mg tablet 250 mg PO DAILY 5 Days Qty: 5 0RF albuterol sulfate 90 mcg/actuation HFA aerosol inhaler 2 inh inhalation Q4H PRN (Reason: shortness of breath or wheezing) Qty: 8.5 0RF tiotropium bromide [Spiriva with HandiHaler] 18 mcg capsule, w/inhalation device 1 cap inhalation DAILY Qty: 30 0RF Rx Instructions: puncture 1 cap using device; one dose = 2 inhalations Continued amlodipine 10 mg tablet 10 mg PO DAILY dutasteride 0.5 mg capsule 0.5 mg PO DAILY isosorbide mononitrate 60 mg tablet extended release 24 hr 60 mg PO DAILY lisinopril 20 mg tablet 20 mg PO DAILY metformin 500 mg tablet extended release 24 hr 1,000 mg PO BID metoprolol tartrate 50 mg tablet 50 mg PO Q12H Xarelto 20 mg tablet 20 mg PO Q24H simvastatin 40 mg tablet 40 mg PO DAILY spironolactone 25 mg tablet 12.5 mg PO DAILY tamsulosin 0.4 mg capsule 0.8 mg PO Q24H Januvia 100 mg tablet 100 mg PO BID lisinopril 5 mg tablet 5 mg PO .QD Activity: resume usual activities as tolerated and wear oxygen at all times Activity Detail: 2 L via NC Diet: advance to your usual diet Print Language: Maltese Forms: Portal Instructions Follow Up Appointments: Sun. @ 10:30am with Dr. Jackson [phone] August 05 @ 8:15am with Dr. Cobb (pulmonary) at [facility] [phone] *bring photo id, insurance card and co-pay
[2024-07-07] MEDS: AZITHROMYCIN 250 MG TABLET 500 MG PO (08:23)
[2024-07-07] MEDS: DUTASTERIDE 0.5 MG CAPSULE PO (08:23)
[2024-07-07] MEDS: ACETAMINOPHEN 325 MG TABLET 650 MG PO (08:23)
[2024-07-07] MEDS: ISOSORBIDE MONONITRATE 60 MG TAB.ER.24H PO (08:23)
[2024-07-07] MEDS: METOPROLOL TARTRATE 50 MG TABLET PO (08:23)
[2024-07-07] MEDS: PREDNISONE 20 MG TABLET 40 MG PO (08:23)
[2024-07-07] MEDS: AMLODIPINE BESYLATE 5 MG TABLET 10 MG PO (08:25)
[2024-07-07] MEDS: LISINOPRIL 20 MG TABLET PO (08:25)
[2024-07-07] MEDS: TAMSULOSIN HCL 0.4 MG CAPSULE PO (08:25)
[2024-07-07] MEDS: INSULIN ASPART 300 UNIT/3 ML PEN SUBQ ×2 (08:26→11:09)
--- NOTE | 2024-07-07 10:02 | SWNOTE1 ---
SW received a message from case management and pt will need home oxygen. SW to work on setting up.
[2024-07-07 11:06] LABS: Glucometer 219 mg/dL (74-106)
--- NOTE | 2024-07-07 11:40 | CM.NOTE ---
Rounds made with Dr. Wei, discussed with pt discharge to home today. Discussed with pt about establishing f/u with Dr. Cobb for COPD. Med Surg medical secretary will get appt scheduled, pt will go home with oxygen. RN completed walk test and SW setting up oxygen. Pt will also need f/u with Dr. Jackson in one week.
--- NOTE | 2024-07-07 12:28 | SWNOTE1 ---
SW sent oxygen script, face sheet, h&p, dc summary, and walk test to [facility] as they do accept pt's insurance.
--- NOTE | 2024-07-07 14:11 | CM.NOTE ---
Medicare Outpatient Observation Notice discussed with pt, pt verbalizes understanding and signs paper. Original given to pt and copy placed on pt's chart.
--- NOTE | 2024-07-07 14:50 | SWNOTE1 ---
ARJUN called [facility] and they are working on the oxygen and will let SW know once ready.
--- NOTE | 2024-07-08 14:56 | CM.DCFOLLOWU ---
Person spoke with:patient's How are you feeling? well, sitting in chair resting How is your pain? none Did you understand your discharge instructions?yes Do you have any questions about your discharge instructions? no Were you given any prescriptions at discharge?yes Were you able to get your prescriptions filled?yes Do you understand how to take your medications as ordered?yes, spoke with case management nurse in regards to medication question Do you have any questions about your follow up appointment and do you plan to keep your follow up appointment? no questions reviewed follow up Is there anything else that you would like to discuss?no Questions/Comments/Concerns/Other:none
--- NOTE | 2024-07-11 07:17 | CM.NOTE ---
Certificate of Medical Necessity signed by Dr. eWi and faxed to [facility].
== END 2024-07-07 16:38 | disposition home or self-care (01) ==
LOC: ER 07-06 01:10 → MS 07-06 02:18
PROVIDERS: Admitting Provider Internal Medicine; Emergency Provider Student in an Organized Health Care Education/Training Program; PCP Family Medicine; Visit Provider Family Medicine
DX: E86.0 Dehydration (principal); G93.41 Metabolic encephalopathy; R53.1 Weakness; R09.02 Hypoxemia; R06.02 Shortness of breath; Z87.891 Personal history of nicotine dependence; J10.1 Influenza due to other identified influenza virus with other respiratory manifestations; E11.9 Type 2 diabetes mellitus without complications; Z79.84 Long term (current) use of oral hypoglycemic drugs; I48.0 Paroxysmal atrial fibrillation; Z79.01 Long term (current) use of 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; I10 Essential (primary) hypertension; E78.5 Hyperlipidemia, unspecified; E87.20 Acidosis, unspecified
CPT/HCPCS: 36415; 36600; 70450; 71045; 80048; 80053; 80320; 81001; 82805; 82948; 83605; 84484; 85025; 85610; 87040; 93005; 94640; 94667; 94761; 96360; 96361; 99285; G0378; J7512

== ENCOUNTER 2024-09-02 10:26 | Outpatient (OUT) | payer MEDICARE, MEDICAID, SELFPAY | END 2024-09-02 10:27 | disposition home or self-care (01) | PROVIDERS: PCP Family Medicine; Visit Provider Family Medicine | DX: R60.0 Localized edema (principal) | CPT/HCPCS: 93971 ==

== ENCOUNTER 2024-09-15 12:49 | Outpatient (OUT) | payer MEDICARE, MEDICAID, SELFPAY ==
[2024-09-15 13:11] LABS: Hemoglobin 11.1 g/dL (14.0-18.0)
[2024-09-15] MEDS: ALBUTEROL SULFATE 2.5 MG/3 ML VIAL NEB IH (14:00)
--- NOTE | 2024-09-15 14:15 | RT_ITS ---
[facility] Test Date: 2024-09-15 Pat Name: MARILU TAYLOR Department: Room: - Gender: Male Branch Operations Manager: Saran Ryan RRT : 1950 Requested By: MARY BETH PITTS Order Number: [id number] Augustine MD: Arash Cobb Interpretive Statements Pulmonary function testing was completed according to ATS criteria. Findings were considered accurate and reproducible. Both pre- and post-bronchodilator values utilized for spirometry. Spirometry (based on pre-bronchodilator values): -FEV1/FVC: Reduced @ 52% -FEV1: Severely reduced @ 41% -FVC: Reduced @ 57% -There is a partial bronchodilator response Lung volumes by plethysmography (based on pre-bronchodilator values): -RV: Increased @ 145% -TLC: Normal @ 86% Diffusion capacity: -DLCO: Severe reduction @ 40% when corrected for Hb 11.1g/dL Impressions: - Spirometry suggests severe obstruction. There is a partial bronchodilator response. An elevated RV suggests air trapping. There is a severely reduced diffusion capacity. Overall study is compatible with COPD/emphysema. Clinical correlation required. Electronically Signed On 09-15-2024 17:06:55 EDT by Arash Cobb
--- NOTE | 2024-09-15 16:52 | W.PM.PROCNOT ---
Procedure: 6-Minute Walk (6MW) Date of 6MW: 09/15/2024 Indication: Hypoxia MMRC: 3 Resting data: -HR: 85 -BP: 128/63 -SpO2: 95% -FiO2: Room air -Cyndy: 2.5 Protocol: -6MW was initiated according to standard protocol. Total walk duration was 6 minutes with lowest SpO2 @ 91% on room air. Highest Cyndy was 4. Recovery data: -HR: 80 -BP: Not measured -SpO2: 96% -FiO2: Room air -Cyndy: 3 Number of stops: None Total walk distance: 152m, which is 53% of predicted walk distance. Impressions: -No resting or ambulatory desaturations. Reduced walk distance compared to predicted. Recommendations: -Patient does neither requires nor qualifies for supplemental O2 based on this study. Clinical correlation required.
== END 2024-09-15 12:50 | disposition home or self-care (01) ==
LOC: CARD 12:49
PROVIDERS: PCP Family Medicine; Visit Provider Family Medicine
DX: R09.02 Hypoxemia (principal)
CPT/HCPCS: 36415; 85018; 94060; 94618; 94726; 94729

== ENCOUNTER 2024-12-04 07:45 | Outpatient (OUT) | payer MEDICARE, SELFPAY ==
--- OUTSIDE RECORDS SUMMARY | 2014-11-09 09:00 | XMS_ITS | Encounter Summary ---
Author Organization [facility] Address [address] [facility], [address] [place] [address] Care Team Providers Care Escrow Officer Name Role Phone Unavailable Primary Care Provider Unavailabl e Encounter Details Date Type Department Care Team (Late st Contact Info) Description 11/09/2014 9:00 AM EDT Hospital Encounter [facility] Cardiac Rehab [address] [place], [place] [id number] Adeel Peterson MD [address] [place] [address] Social History Tobacco Use Types Packs/Day Years Used Date Smoking Tobacco: Former Cigarettes Q uit: 05/14/1994 Smokeless Tobacco: Never Alcohol Use Standard Drinks/Week Comments No 0 (1 standard drink = 0.6 oz pur e alcohol) Sex and Gender Information Value Date Recorded Sex Assigned at Not on file Legal Sex Male 5:10 PM EST Gender Identity Not on file Sexual Orientation Not on file COVID-19 Exposure Response Date Recorded In the last 10 days, have yo u been in contact with someone who was confirmed or suspected to have Coronavirus/COVID-19? No / Unsure 09/19/2021 11:52 AM EDT documented as of this encounter Plan of Treatment Not on file documented as of this encounter Procedures Procedure Name Priority Date/Time Associated Diagnosis Comments ECHO REPORT 04/17/2015 10:42 AM EST documented in this encounter Results * CARDIAC REHAB REPORT (04/17/2015 10:42 AM EST) [facility] Scanning CARDIAC REHAB ORDERABLES Edited Result - Final documented in this encounter Visit Diagnoses Not on filedocumented in this encounter
--- OUTSIDE RECORDS SUMMARY | 2014-11-26 09:00 | XMS_ITS | Encounter Summary ---
Author Organization [facility] Address [address] [facility], [address] [place] [address] Care Team Providers Care Superintendent Quarry Name Role Phone Unavailable Primary Care Provider Unavailabl e Encounter Details Date Type Department Care Team (Late st Contact Info) Description 11/26/2014 9:00 AM EDT Hospital Encounter [facility] Cardiac Rehab [address] [place] [address] Adeel Peterson MD [address] [place] [address] Social History Tobacco Use Types Packs/Day Years [...] on file documented as of this encounter Visit Diagnoses Not on filedocumented in this encounter
--- OUTSIDE RECORDS SUMMARY | 2014-12-02 08:00 | XMS_ITS | Encounter Summary ---
Author Organization [facility] Address [address] [facility], [address] [place] [address] Care Team Providers Care Superintendent Power Name Role Phone Unavailable Primary Care Provider Unavailabl e Encounter Details Date Type Department Care Team (Late st Contact Info) Description 12/02/2014 8:00 AM EDT Hospital Encounter [facility] Cardiac Rehab [address] [place] [address] Adeel Peterson MD [address] [place] [address] Social History Tobacco Use Types Packs/Day Years [...] AM EDT documented as of this encounter Progress Notes * Sheila Barrientos RN - 12/02/2014 4:02 PM EDT Phase II Cardiac Rehab Individualized Treatment Plan-30 Day Patient Name: Cole Dan Date of Initial Assessment: 12/02/2014 Diagnosis: CABG Onset Date: 09/14/14 Referring Physician: Dr Peterson Risk Stratification: low Session Number: 9 EXERCISE Stages of Change: [] pre-contemplation [x] Action [] Contemplate [] Maintainence [] Prep [] Relapse Exercise Prescription: Mode: [x] TM [] B [x] STP [] EL [x] R Frequency: 3xwk Duration: 30-50min Intensity: 1.7mph, level 4 Progression: Increase 1-2 levels/week or 1-2 min/week to achieve target HR and RPE 11-13. [] Angina with Exertion THR: 80-100 [x] Resistance Training Weight (lbs): 2-4 Reps: 10-15 Hypertension: [x] Yes [] No Resting BP: 128/68 Peak Exercise BP: 128/74 [] Med change? Intervention: Home Exercise: Type: walk Duration: 30min Frequency: daily [x] Resistance Training Education: [x] Equipment Strum [x] Self pulse [] Proper use weights/therabands [x] S/S to report [x] Low Na Diet [x] Warm up/ Cool down [] BP Medication [x] RPE Scale [] Understand BP [x] Ex Safety [] sales account specialist class-Home Exercise Target Goal: -Individual Exercise Plan -BP<140/90 or <130/80 if DM -Aerobic active 30 + minutes 5-7 days per week Nutrition Stages of Change: [] pre-contemplation [x] Action [] Contemplate [] Maintainence [] Prep [] Relapse Lipids: Total Cholesterol: Triglycerides: 95 HDL: LDL: 28 [] Med Change? Diabetes: [x] Yes [] No Random BS:136 HbA1c: 7.1 [] Med Change? Weight Management: Wt Goal: 1-2 lbs/wk Intervention: [x] Dietitian Consult [x] Nurse/Patient Discussion [x] Diet Class [] Referred to Diabetes Education Education: [x] S&S hypo/hyperglycemia [x] Low fat/low cholesterol diet [] Weight loss methods [x] Relate Diabetes/CAD [x] Eating heart healthy handout Target Goal: -LDL-C<100 if triglycerides are > 200 -LDL-C < 70 for high risk patients -HbA1c < 7% -BMI < 25 Education Stages of Change: [] pre-contemplation [x] Action [] Contemplate [] Maintainence [] Prep [] Relapse Family support: [x] Yes [] No Tobacco use: [] Yes [x] No Intervention: [] Referred to smoking cessation counselor [] Individual education and counseling [] Tobacco adjunct [x] Informed of education class schedule Education: [x] Risk Factors/Modifications [] Psychological aspects [x] Angina [] Medications [x] CHF [] Cardiac A&P Target Goal: -Complete cessation of tobacco use (if applicable) -Continued risk factor modifications -Recognizing signs/symptoms to report -Proper use of meds Psychosocial Stages of Change: [] pre-contemplation [x] Action [] Contemplate [] Maintainence [] Prep [] Relapse Intervention: [] Psych Consult/psych social worker [x] Uses stress management skills [] Physician Referral [x] Stress management class [] Med Change? Education: [] Coping Techniques [] Relaxation techniques [] S/S of Depression Target Goal: -Assess presence or absence of depression using a valid screening tool. -Maximize coping skills. -Positive support system. Preventative Medication: [x] Aspirin [x] Beta Blockade [x] Statin or other lipid lowering agent [x] Clopidogrel [x] ORVILLE Inhibitor [] Other anticoagulation medications Fall Risk assess: [] Yes [x] No Assistive Device: [] Cane [] Walker [] Wheel Chair [] Gait belt Patient/Program goal: -continue to increase stamina/strength to 30-50 total exercise by increasing 1-2 level/wk and 1-2 min/wk to achieve THR and RPE 11-13 -introduce weights/ therabands 2-4# for 5-10 reps -manage BP - increased knowledge of low fat low NA - improved management of diabetes and more frequent monitor BS -improved cholesterol and Triglycerides - stress management and relaxation techniques, cope better with health changes -develop regular exercise 30 min daily Physician Changes/Comments: Cardiac Rehab Staff Cosigned by Arnel Pope MD at 12/03/2014 2:42 PM EDT documented in this encounter Plan of Treatment Not on file documented as of this encounter Visit Diagnoses Not on filedocumented in this encounter
--- OUTSIDE RECORDS SUMMARY | 2014-12-03 08:00 | XMS_ITS | Encounter Summary ---
Author Organization [facility] Address [address] [facility], [address] [place] [address] Care Team Providers Care Practice Office Associate Name Role Phone Unavailable Primary Care Provider Unavailabl e Encounter Details Date Type Department Care Team (Late st Contact Info) Description 12/03/2014 8:00 AM EDT Hospital Encounter [facility] Cardiac Rehab [address] [place] [address] Adeel Peterson MD [address] [place] [address] Social History Tobacco Use Types Packs/Day Years [...]
--- OUTSIDE RECORDS SUMMARY | 2024-08-04 05:47 | XMS_ITS ---
Author Organization [facility] in [place] Address [address] [place] [address] Care Team Providers Care Blanking Machine Operator Name Role Phone Susana Jackson Primary Care Provider Arash Fall [phone] REASON FOR VISIT Appointment Cancel Encounters Encounter Location Date Provider Diagnosis Pulmonary Medicine [place] [address] [place] [address] 08/04/2024 Arash Cobb Plan Of Treatment No Information Progress Notes * Cole DANDOB:1950 (74 yo M)Acc No.[id number]:08/04/2024 Patient: Cole GIL :1950 A ge:74 Y S ex:Male Address:[address] [place] [address], [address] * true * Date: Generated for Printi ng/Faxing/eTransmitting on: 0 12/04/2024 07:48 AM EDT
--- OUTSIDE RECORDS SUMMARY | 2024-08-05 04:15 | XMS_ITS ---
Author Organization [facility] in [place] Address [address] [place] [address] Care Team Providers Care R Developer Name Role Phone Susana Jackson Primary Care Provider Arash Fall Unavailable [phone] REASON FOR VISIT COPD/TBH HOSP F/U Encounters Encounter Location Date Provider Diagnosis Pulmonary Medicine [address] [address] 08/05/2024 Arash Cobb Plan Of Treatment No Information Progress Notes * Cole DANDOB:1950 (74 yo M)Acc No.[id number]:08/05/2024 UNLOCKED PROGRESS NOTE New Patient Patient: Cole GIL Provider: Norma Cobb DO :1950 A ge:74 Y S ex:Male Date:08/05/2024 Address:[address] [place] [id number] Pcp:Susana Jackson Subjective: * Chief Complaints: * 1 . COPD/TBH HOSP F/U. * Medical History: Objective: * Vitals: Assessment: Plan: * Treatment: * * Electronic signature of Loulou Cobb DO on 12/04/2024 at 07:47 AM EDT Sign off status: Pending Visit Status: C ANC (Cancelled) * Provider: Norma Cobb DO Date: 0 08/05/2024 Generated for Alda bhandari/Chinmay/eTransmitting on: 0 12/04/2024 07:47 AM EDT
--- OUTSIDE RECORDS SUMMARY | 2024-12-04 07:48 | XMS_ITS | Clinical Summary ---
Author Organization [employer] Address [id number] [address] [place] [address] Care Team Providers Care Carpet Layer Name Role Phone Susana Jackson MD Primary Care Provider [phone] Social History Tobacco Use Types Packs/Day Years Used Date Smoking Tobacco: Never Assessed Childcare Answer Date Recorded Childcare Unknown 10/24/2018 Employment Answer Date Recorded Employment Unknown 10/24/2018 Purpose - Life Answer Date Recorded Purpose and direction in life Unknown Sex and Gender Information Value Date Recorded Sex Assigned at Not on file Legal Sex Male 11:44 AM EST Gender Identity Not on file Sexual Orientation Not on file Plan of Treatment Health Maintenance Due Date Last Done Comments Depression Screening 1960 Tobacco Screening 1960 DTaP,Tdap and Td Vaccines (1 - Tdap) 1967 Zoster (Shingles) Vaccine (1 of 2) 1998 Fall Risk Screening 2013 Influenza Vaccine 01/12/2025 Medical Devices Not on file Care Teams Carpet Layer Relationship Specialty Start Date End Date Susana Jackson MD [address] [place] [address] PCP - General 06/25/18
--- OUTSIDE RECORDS SUMMARY | 2024-12-04 07:48 | XMS_ITS | Patient Health Record ---
Author Organization [facility] in [place] Address [address] [place] [address] Care Team Providers Care Associate Automation Engineer Name Role Phone Susana Jackson Primary Care Provider Arash Fall [phone] Reason For Referral No Information Problems Problem Type SNOMED Code ICD Code Onset Dates Problem Status W/U Status Risk Notes Problem Diabetes mellitus type 2 (disorder) (25422282) DM2 (diabetes mellitus, type 2) (E11.9) Active confirmed Problem Iron deficiency anemia (97151711) Anemia, iron deficiency (D50.9) Active confirmed Problem Chronic obstructive pulmonary disease (50460644) Advanced COPD (J44.9) Active confirmed Problem Severe protein calorie malnutrition (912041639) Severe protein-calorie malnutrition (E43) Active confirmed Problem Metabolic encephalopathy (92971839) Acute metabolic encephalopathy (G93.41) Active confirmed Problem Type II diabetes mellitus without complication (366994312) Diabetes (E11.9) Active confirmed Encounters Encounter Location Date Provider Diagnosis Pulmonary Medicine [place] [address] [place] [address] 08/04/2024 Arash Cobb Plan Of Treatment No Information Insurance Providers Payer Name Payer Address Payer Phone Subscriber Number Group Number Insured Name Patient Relationship to Insured Coverage Start Date Coverage End Date [facility] [employer]ICARE [address] [place] [address] [id number] OHDSNP SyBorary Self - patient is the insured 5 MEDICAID [place] 2ND INS [address] [facility] [address] [place], [place] [id number] Cole Dan Self - patient is the insured
--- OUTSIDE RECORDS SUMMARY | 2024-12-04 07:48 | XMS_ITS | Encounter Summary ---
Author Organization [facility] Address [address] [place] [address] Care Team Providers Care Cashier Payments Received Name Role Phone Susana Jackson MD Primary Care Provider [phone] Reason for Visit * Reason Comments Med Refill Encounter Details Date Type Department Care Team (Late st Contact Info) Description 10/31/[address] [address] Jerald Ospina MD [address] [place] [address] Hyperlipidemia, unspecified hyperlipidemia type Social History Tobacco Use Types Packs/Day Years Used Date Smoking Tobacco: Former Cigarettes Smokeless Tobacco: Never Alcohol Use Standard Drinks/Week Comments Never 0 (1 standard drink = 0.6 oz pur e alcohol) Sex and Gender Information Value Date Recorded Sex Assigned at Not on file Legal Sex Male 11:27 PM EDT Gender Identity Not on file Sexual Orientation Not on file documented as of this encounter Plan of Treatment Upcoming Encounters Date Type Department Care Team (Late st Contact Info) Description 12/22/2024 9:30 AM EDT Office Visit [facility] [address] [place] [address] Jerald Ospina MD [address] [place] [address] 01/16/2025 9:30 AM EDT Appointment [facility] Vascular Ultrasound Imaging [address] [place] [address] documented as of this encounter Visit Diagnoses Diagnosis Hyperlipidemia, unspecified hyperlipidemia type documented in this encounter Care Teams Cashier Payments Received Relationship Specialty Start Date End Date Susana Jackson MD [address] [facility] [address]A PCP - General 04/14/22 documented as of this encounter
--- OUTSIDE RECORDS SUMMARY | 2024-12-04 07:48 | XMS_ITS | Encounter Summary ---
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 Social History Tobacco Use Types Packs/Day Years [...] Description 12/22/2024 9:30 AM EDT Office Visit [address] [address] Jerald Ospina MD [address] [place] [address] 01/16/2025 9:30 AM EDT Appointment [facility] Vascular Ultrasound Imaging [address] [place] [address] documented as of this encounter Visit Diagnoses Diagnosis Primary hypertension Unspecified essential hypertension Coronary artery disease involving apache coronary artery of apache heart with other form of angina pectoris documented in this encounter Care Teams Cellar Hand Relationship Specialty Start Date End Date Susana Jackson MD [facility] #A PCP - General 04/14/22 documented as of this encounter
--- OUTSIDE RECORDS SUMMARY | 2024-12-04 07:48 | XMS_ITS | Clinical Summary ---
Author Organization [facility] Address [address] [facility], [address] [place] [address] Care Team Providers Care Plastic Panel Installer Name Role Phone Susana Jackson MD Primary Care Provider [phone] Allergies Active Allergy Reactions Criticality Noted Date Comments Erythromycin 09/06/2021 All mycin drugs, per . Penicillins Shortness Of Breath High 10/29/2014 Medications clopidogrel (PLAVIX) 75 MG tablet Take 75 mg by mouth daily Active simvastatin (ZOCOR) 40 MG tablet Take 40 mg by mouth nightly Active metFORMIN (GLUCOPHAGE) 500 MG tablet Take 500 mg by mouth 2 times daily (with meals) Active lisinopril (PRINIVIL;ZESTR IL) 2.5 MG tablet Take 2.5 mg by mouth daily Active metoprolol (TOPROL-XL) 50 MG XL tablet Take 50 mg by mouth 2 times daily Active rivaroxaban (XARELTO) 20 MG TABS tablet Take 20 mg by mouth Active Active Problems No known active problems Resolved Problems Problem Noted Date Diagnosed Date Resolved Date Combined forms of age-relate d cataract of left eye 09/18/2021 09/19/2021 Immunizations Immunization Administration Dates Next Due COVID-19, PFIZER PURPLE top, DILUTE for use, (age 12 y+), 30mcg/0.3mL 05/06/2021,10/22/2020,10/01/2020 Family History Medical History Relation Name Comments Heart Attack Father Heart Attack Mother Relation Name Status Comments Brother Father Mother Social History Tobacco Use Types Packs/Day Years [...] on file Sexual Orientation Not on file Last Filed Vital Signs Vital Sign Reading Time Taken Comments Blood Pressure 113/48 09/19/2021 1:45 PM EDT Pulse 65 09/19/2021 1:45 PM EDT Temperature 36.1 C (96.9 F) 09/19/2021 1:23 PM EDT Respiratory Rate 20 09/19/2021 1:45 PM EDT Oxygen Saturation 95% 09/19/2021 1:45 PM EDT Inhaled Oxygen Concentration - - Weight 74.8 kg (165 lb) 09/19/2021 11:57 AM EDT Height 170.2 cm (5' 7 ) 09/19/2021 11:57 AM EDT Body Mass Index 25.84 09/19/2021 11:57 AM EDT Plan of Treatment Health Maintenance Due Date Last Done Comments Depression Screen 1960 Hepatitis C screen 1966 DTaP/Tdap/Td vaccine (1 - Tdap) 1967 Pneumococcal 50+ years Vaccine (1 of 1 - PCV) 1998 Shingles vaccine (1 of 2) 1998 Lipids 12/01/2022 12/01/2021, 12/2017, 04/11/2017, Additional history exists Respiratory Syncytial Virus (RSV) or age 60 yrs+ (1 - 1-dose 75+ series) 2023 COVID-19 Vaccine ( - season) 2024 05/06/2021, 10/22/2020, 10/01/2020 Flu vaccine (#1) 12/12/2024 Diabetic Alb to Cr ratio (uACR) test Discontinued 03/21/2018, 04/11/2017 A1C test (Diabetic or Prediabetic) Discontinued 12/01/2021, 03/21/2018, 02/29/2016 Hepatitis A vaccine Aged Out No longe r eligible based on patient's age to complete this topic Hepatitis B vaccine Aged Out No longe r eligible based on patient's age to complete this topic Hib vaccine Aged Out No longer eligi ble based on patient's age to complete this topic Meningococcal (ACWY) vaccine Aged Out No longer eligible based on patient's age to complete this topic Meningococcal B vaccine Aged Out No l onger eligible based on patient's age to complete this topic Polio vaccine Aged Out No longer elig ible based on patient's age to complete this topic Medical Devices Implanted Type Area Anglesmith Helper Device Identifier Shelf Expiration Date Model / Serial / Lot Lens Intraocular Bcnvx 19+ Diopt 6x12.5 Mm Acryl [employer]ista - [id number] Implanted:Qty: 1 on 09/19/2021 by Eusebio Vazquez DO at [facility] Left: Eye [employer]CH [employer]OM[employer]-WD 01/12/2024 [id number] / [id number] / Procedures Procedure Name Priority Date/Time Associated Diagnosis Comments LIPID PANEL Routine 12/01/2021 7:01 AM EDT HEMOGLOBIN A1C Routine 12/01/2021 7:01 AM EDT MICROALBUMIN, UR Routine 03/21/2018 7:12 AM EST from Last 3 Months or Most Recently Relevant to Health Maintenance Results * (ABNORMAL) Hemoglobin A1C (12/01/2021 7:01 AM EDT) Hemoglobin A1C 8.2(H) 4.0 - 6.0 % 12/01/2021 7:01 AM EDT [facility] Estimated Avg Glucose 189 mg/dL 12/01/2021 7:01 AM EDT [facility]ampoline Comment: The ADA and AACC recommend providing the estimated average glucose result to permit better patient understanding of their HBA1c result. 12/01/2021 7:01 AM EDT 12/01/2021 7:02 AM EDT us Susana Jackson MD CHEMISTRY ORDERABLES Final Resul t [facility] [address] [place] [address], [facility] [phone] [phone] * (ABNORMAL) Lipid Panel (12/01/2021 7:01 AM EDT) Cholesterol 79 <200 mg/dL 12/01/2021 7:01 AM EDT Trampoline Comment: Cholesterol Guidelines: <200 Desirable 200-240 Borderline >240 Undesirable HDL 30(L) >40 mg/dL 12/01/2021 7:01 AM EDT Trampoline Comment: HDL Guidelines: <40 Undesirable 40-59 Borderline >59 Desirable LDL Cholesterol 29 0 - 130 mg/dL 12/01/2021 7:01 AM EDT Trampoline Comment: LDL Guidelines: <100 Desirable 100-129 Near to/above Desirable 130-159 Borderline >159 Undesirable Direct (measured) LDL and calculated LDL are not interchangeable tests. Chol/HDL Ratio 2.6 <5 12/01/2021 7:01 AM EDT Trampoline Comment: Triglycerides 100 <150 mg/dL 12/01/2021 7:01 AM EDT Trampoline Comment: Triglyceride Guidelines: <150 Desirable 150-199 Borderline 200-499 High >499 Very high Based on AHA Guidelines for fasting triglyceride, February 2012. 12/01/2021 7:01 AM EDT 12/01/2021 7:02 AM EDT us Susana Jackson MD CHEMISTRY ORDERABLES Final Resul t [facility] [address] [place] [address], [facility] [phone] [phone] * Microalbumin, Ur (03/21/2018 7:12 AM EST) Albumin Urine <12 <21 mg/L 03/21/2018 8:56 AM EST [facility] Creatinine, Ur 70.6 39.0 - 259.0 mg/dL 03/21/2018 8:56 AM [facility] Microalb/Globe Mounter. Ratio CANNOT BE CALCULATED <17 mcg/mg creat 03/21/2018 8:56 AM EST [facility] 03/21/2018 7:12 AM EST 03/21/2018 7:13 AM EST us Susana Jackson MD URINE ORDERABLES Final Result [facility] [address] [phone] from Last 3 Months or Most Recently Relevant to Health Maintenance Advance Directives * Full Code (Latest Code Status on File) Date Activated Date Inactivated Comments 09/19/2021 11:42 AM 09/19/2021 3:59 PM Care Teams Plastic Panel Installer Relationship Specialty Start Date End Date Susana Jackson MD PCP - General 03/03/16
--- OUTSIDE RECORDS SUMMARY | 2024-12-04 07:48 | XMS_ITS | Encounter Summary ---
Author Organization [facility] Address [address] [place] [address] Care Team Providers Care Surgery Teacher Name Role Phone Susana Jackson MD Primary Care Provider [phone] Reason for Visit * Reason Comments Med Refill Encounter Details Date Type Department Care Team (Late st Contact Info) Description 06/25/[address] [address] Jerald Ospina MD [address] [place] [address] Coronary artery disease involving [place] coronary artery of [place] heart without angina pectoris Social History Tobacco Use Types [...] Description 12/22/2024 9:30 AM EDT Office Visit [address] [address] Jerald Ospina MD [address] [place] [address] 01/16/2025 9:30 AM EDT Appointment [facility] Vascular Ultrasound Imaging [address] [place] [address] documented as of this encounter Visit Diagnoses Diagnosis Coronary artery disease involving [place] coronary artery of [place] heart without angina pectoris documented in this encounter Care Teams Surgery Teacher Relationship Specialty Start Date End Date Susana Jackson MD [address] [facility] #A PCP - General 04/14/22 documented as of this encounter
--- OUTSIDE RECORDS SUMMARY | 2024-12-04 07:48 | XMS_ITS | Clinical Summary ---
Author Organization [facility] Address [address] [place] [address] Phone Care Team Providers Care Epic Manager Name Role Phone Susana Jackson MD Primary Care Provider [phone] Social History Tobacco Use Types Packs/Day Years Used Date Smoking Tobacco: Never Assessed Sex and Gender Information Value Date Recorded Sex Assigned at Not on file Legal Sex Male 11:23 AM EST Gender Identity Not on file Sexual Orientation Not on file Plan of Treatment Health Maintenance Due Date Last Done Comments Lipid Panel 1950 Yearly Adult Physical 1950 Hepatitis C Screening 1966 DTaP/Tdap/Td Vaccines (1 - Tdap) 1970 Pneumococcal Vaccine (1 of 1 - PCV) 1998 Zoster Vaccines (1 of 2) 1998 RSV High Risk: (Elderly (60+ ) or Population) (1 - 1-dose 75+ series) 2023 COVID-19 Vaccine (1 - 2023-2 5 season) 2024 Influenza Vaccine (#1) 2025 HIB Vaccines Aged Out No longer eligi ble based on patient's age to complete this topic HPV Vaccines Aged Out No longer eligi ble based on patient's age to complete this topic Hepatitis A Vaccines Aged Out No long er eligible based on patient's age to complete this topic Hepatitis B Vaccines Aged Out No long er eligible based on patient's age to complete this topic IPV Vaccines Aged Out No longer eligi ble based on patient's age to complete this topic Meningococcal Vaccine Aged Out No mayur trent eligible based on patient's age to complete this topic Rotavirus Vaccines Aged Out No longer eligible based on patient's age to complete this topic Care Teams Epic Manager Relationship Specialty Start Date End Date Susana Jackson MD [address] [place] [address] PCP - General 05/14/99
--- OUTSIDE RECORDS SUMMARY | 2024-12-04 07:48 | XMS_ITS | Clinical Summary ---
Author Organization [facility] Address [address] [place] [address] Care Team Providers Care Internet Marketing Analyst Name Role Phone Susana Jackson MD Primary Care Provider [phone] Allergies Active Allergy Reactions Criticality Noted Date Comments Erythromycin 09/06/2021 All mycin drugs, per . Erythromycin Base 04/14/2022 Penicillins Anaphylaxis High 10/29/2014 Sulfamethoxazole-Trimethopr im Other 04/14/2022 Medications metFORMIN XR (Glucophage-XR) 500 mg 24 hr tablet Take 1,000 mg by mouth in the morning and at bedtime. 2 Active tamsulosin (Flomax) 0.4 mg 24 hr capsule Take 0.8 mg by mouth in the morning. 2 Active dutasteride (Avodart) 0.5 mg capsule Take 0.5 mg by mouth in the morning. 3 Active pantoprazole (ProtoNix) 40 mg EC tabletIndications:G astroesophageal reflux disease without esophagitis Take 1 tablet (40 mg) by mouth in the morning. Do not crush, chew, or split. 30 tablet 4 Active simvastatin (Zocor) 40 mg tabletIndications:H yperlipidemia, unspecified hyperlipidemia type TAKE 1 TABLET BY MOUTH AT BEDTIME 90 tablet 3 4 Active SITagliptin phosphate (Januvia) 100 mg tablet Take 100 mg by mouth in the morning. Active rivaroxaban (Xarelto) 20 mg tabletIndications:H istory of deep vein thrombosis Take 1 tablet (20 mg) by mouth daily with evening meal. 90 tablet 3 4 04/28/20 25 Active metoprolol tartrate (Lopressor) 50 mg tabletIndications:C oronary artery disease involving osage coronary artery of osage heart without angina pectoris Take 1 tablet (50 mg) by mouth two times daily. 180 tablet 3 5 06/27/19 26 Active simvastatin (Zocor) 20 mg tabletIndications:H yperlipidemia, unspecified hyperlipidemia type Take 1 tablet (20 mg) by mouth at bedtime. 90 tablet 3 5 07/18/19 26 Active aspirin 81 mg EC tabletIndications:P AD (peripheral artery disease) Take 1 tablet (81 mg) by mouth in the morning. 90 tablet 3 5 07/19/19 26 Active isosorbide mononitrate ER (Imdur) 60 mg 24 hr tabletIndications:C oronary artery disease involving osage coronary artery of osage heart with other form of angina pectoris TAKE 1 TABLET BY MOUTH ONCE DAILY IN THE MORNING. DO NOT CRUSH OR CHEW 90 tablet 4 5 Active spironolactone (Aldactone) 25 mg tabletIndications:P rimary hypertension TAKE 1/2 TABLET BY MOUTH IN THE MORNING 45 tablet 4 5 Active Active Problems Problem Noted Date Diagnosed Date Syncope and collapse 11/23/2023 Assessment & Plan (11/23/2023 12:55 PM EDT): Decrease lisinopril to 10 mg daily r/t noted symptomatic hypotension. If no improvement of hypotension or symptoms then recommended that they may decrease to 5 mg daily- pt and voiced understanding Asked pt to hydrate better, less coffee in the morning Hydrocele in adult 10/13/2023 PAD (peripheral artery disease) 08/17/2023 Aortic valve stenosis 04/14/2022 Assessment & Plan (11/23/2023 12:54 PM EDT): S/P TAVR Recent TTE - Aortic valve stable- - awaiting repeat echocardiogram scheduled at [facility] this week to assess cardiac function and AO valve/doppler Chest pain 04/14/2022 Coronary arteriosclerosis 04/14/2022 Deep venous thrombosis of lower extremity 2021 Hypertensive disorder 04/14/2022 Assessment & Plan (11/23/2023 10:22 AM EDT): Hypertension labile with dizziness/lightheadedness, syncope= decrease lisinopril to 10 mg daily and if b/p remains low and symptomatic recommended to then decrease to 5 mg daily. Closed fracture of shaft of tibia 02/23/2020 Dyspnea 07/21/2019 Resolved Problems Problem Noted Date Diagnosed Date Resolved Date Septic shock 10/05/2023 10/13/2023 Severe claudication 08/22/2023 09/12/19 Encounter for pre-operative examination 08/22/2023 09/12/2023 Critical limb ischemia of ri ght lower extremity with rest pain 08/17/2023 09/12/2023 Encounters Date Type Department Care Team Description 09/18/2024 [facility] [address] [place] [address] Jerald Ospina MD Primary hypertension 09/04/2024 [facility] [address] [place] [address] Jerald Ospina MD Coronary artery disease involving osage coronary artery of osage heart with other form of angina pectoris from Last 3 Months Family History Medical History Relation Name Comments Colon cancer Brother Cervical cancer Child Diabetes Father Heart attack Father Diabetes Mother Heart attack Mother Breast cancer Sister Relation Name Status Comments Brother Child Alive Father Mother Sister Social History Tobacco Use Types Packs/Day Years Used Date Smoking Tobacco: Former Cigarettes Q uit: 1980 Smokeless Tobacco: Never Tobacco Cessation:Counseling Given: Not Answered Alcohol Use Standard Drinks/Week Comments Not Currently 0 (1 standard drink = 0.6 oz pur e alcohol) [facility] Utilities Answer Date Recorded In the past 12 months has e [employer], gas, oil, or water [facility] threatened to shut off services in your home? No 12/24/2023 Humiliation, Afraid, Rape, and Kick questionnair e Answer Date Recorded Within the last year, have y ou been afraid of your partner or ex-partner? No 12/24/2023 Emotionally Abused Not on file 12/24/2023 Physically Abused Not on file 12/24/2023 Sexually Abused Not on file 12/24/2023 Overall Financial Resource Strain (CARDIA) Answe r Date Recorded How hard is it for you to pa y for the very basics like food, housing, medical care, and heating? Not hard at all 12/24/2023 PHQ-2 Answer Date Recorded Patient Health Questionnaire-2 Score 0 12/24/2023 Transportation Answer Date Recorded In the past 12 months, has l ack of transportation kept you from medical appointments or from getting medications? No 12/24/2023 Lack of Transportation (Non-Medical) Not on file 12/24/2023 Housing Stability Vital Sign Answer Rodrick e Recorded Unable to Pay for Housing in the Last Year Not o n file 12/24/2023 Number of Places Lived in the Last Year Not on f ile 12/24/2023 In the last 12 months, was t here a time when you did not have a steady place to sleep or slept in a group home (including now)? No 12/24/2023 Hunger Vital Sign Answer Date Recorded Within the past 12 months, y ou worried that your food would run out before you got the money to buy more. Never true 12/24/19 24 Ran Out of Food in the Last Year Not on file 12/24/2023 Sex and Gender Information Value Date Recorded Sex Assigned at Not on file Legal Sex Male 11:27 PM EDT Gender Identity Not on file Sexual Orientation Not on file Last Filed Vital Signs Vital Sign Reading Time Taken Comments Blood Pressure 136/73 07/18/2024 8:13 AM EST Pulse 76 07/18/2024 8:13 AM EST Temperature 36.6 C (97.8 F) 12/24/2023 2:54 PM EDT Respiratory Rate 18 07/18/2024 8:13 AM EST Oxygen Saturation 98% 07/18/2024 8:13 AM EST Inhaled Oxygen Concentration - - Weight 73.9 kg (163 lb) 07/18/2024 8:13 AM EST Height 165.1 cm (5' 5 ) 07/18/2024 8:13 AM EST Body Mass Index 27.12 07/18/2024 8:13 AM EST Plan of Treatment Upcoming Encounters Date Type Department Care Team (Late st Contact Info) Description 12/22/2024 9:30 AM EDT Office Visit [facility] [address] [place] [address] Jerald Ospina MD [address] [facility] [place] [address] 01/16/2025 9:30 AM EDT Appointment [facility] Vascular Ultrasound Imaging [address] [place] [address] Health Maintenance Due Date Last Done Comments Medicare Annual Wellness (AWV) 1950 Pneumococcal Vaccine: 50+ Years (1 of 2 - PCV) 1967 Adult Tetanus 1970 Zoster Vaccines (1 of 2) 1998 COVID-19 Vaccine (2023-2 5 season) 2024 05/06/2021, 10/22/2020, 10/01/2020 Depression Screening 12/23/2024 12/24/2023 Fall Risk Screening 12/23/2024 12/24/2023 Influenza Vaccine (#1) 2025 HIB Vaccines Aged Out No longer eligi ble based on patient's age to complete this topic HPV Vaccines Aged Out No longer eligi ble based on patient's age to complete this topic IPV Vaccines Aged Out No longer eligi ble based on patient's age to complete this topic Meningococcal B Vaccine Aged Out No l onger eligible based on patient's age to complete this topic Meningococcal Vaccine Aged Out No mayur trent eligible based on patient's age to complete this topic Rotavirus Vaccines Aged Out No longer eligible based on patient's age to complete this topic Medical Devices Implanted Type Area Gas Main And Line Fitter Device Identifier Shelf Expiration Date Model / Serial / Lot Membrane,Cassi card,8x14cm - [id number] Implanted:Qty : 1 on 09/10/2023 by Epi Shrestha MD at [facility] Collagen Right: Arterial [employer] [id number] 02/15/2024 [id number] / / [id number] Insurance [employer] MEDICARE Advance Directives * Full Code (Latest Code Status on File) Date Activated Date Inactivated Comments 10/05/2023 12:15 PM 10/13/2023 1:58 PM * Full Code Date Activated Date Inactivated Comments 09/10/2023 7:16 PM 09/12/2023 3:09 PM * Full Code Date Activated Date Inactivated Comments 09/10/2023 7:16 PM 09/10/2023 7:16 PM Care Teams Internet Marketing Analyst Relationship Specialty Start Date End Date Susana Jackson MD [address] [facility] [address] PCP - General 04/14/22
--- OUTSIDE RECORDS SUMMARY | 2024-12-04 07:49 | XMS_ITS | Encounter Summary ---
Author Organization [facility] Address [address] [place] [address] Care Team Providers Care Roof Promenade Tile Setter Name Role Phone Susana Jackson MD Primary Care Provider [phone] Encounter Details Date Type Department Care Team (Late st Contact Info) Description 08/03/2023 Orders Only [facility] [address] [place] [address] Caitlyn Torres MA PVD (peripheral vascular disease) Social History Tobacco Use Types Packs/Day Years Used Date Smoking Tobacco: Never Smokeless Tobacco: Never Alcohol Use Standard Drinks/Week Comments Never 0 (1 standard drink = 0.6 oz pur e alcohol) caffeine yes type: coffee Sex and Gender Information Value Date Recorded Sex Assigned at Not on file Legal Sex Male 6:51 PM EDT Gender Identity Not on file Sexual Orientation Not on file documented as of this encounter Plan of Treatment Not on file documented as of this encounter Procedures Procedure Name Priority Date/Time Associated Diagnosis Comments VASC US LOWER EXTREMITY ARTERIAL DOPPLER COMPLETE Routine 08/03/2023 10:32 AM EDT PVD (peripheral vascular disease) documented in this encounter Results * Vascular US lower extremity arterial Doppler complete (08/03/2023 10:32 AM EDT) Saeed De La Cruz DPM CV VASCULAR PROCEDURES Lizet l Result documented in this encounter Visit Diagnoses Diagnosis PVD (peripheral vascular disease) Unspecified peripheral vascular disease documented in this encounter Care Teams Roof Promenade Tile Setter Relationship Specialty Start Date End Date Susana Jackson MD PCP - General Family Medicine 11/30/22 documented as of this encounter
--- OUTSIDE RECORDS SUMMARY | 2024-12-04 07:49 | XMS_ITS | Clinical Summary ---
Author Organization [facility] Address [address] [place] [address] Care Team Providers Care Landing Worker Name Role Phone Susana Jackson MD Primary Care Provider [phone] Allergies Active Allergy Reactions Criticality Noted Date Comments Erythromycin 09/06/2021 All mycin drugs, per . Erythromycin Base 04/14/2022 Other Reaction(s): GI problems Levofloxacin 04/14/2022 Penicillins Anaphylaxis,Shortnes s of breath High 10/29/2014 Sulfa Antibiotics Hives 11/30/2022 Sulfamethoxazole-Trimet hopri Hiv 04/14/2022 Medications amiodarone (Pacerone) 200 MG tablet Take 200 mg by mouth in the morning. Active amLODIPine (Norvasc) 10 MG tablet Take 10 mg by mouth in the morning. 05/02/2022 Active aspirin 81 MG chewable tablet Chew 81 mg 1 (one) time. Active atenolol (Tenormin) 100 MG tablet Take 100 mg by mouth in the morning. Active clopidogrel (Plavix) 75 MG tablet Take 75 mg by mouth in the morning. Active doxycycline (Vibramycin) 100 MG capsule Take 100 mg by mouth in the morning. 11/27/2022 Active doxycycline (Monodox) 100 MG capsule Take 100 mg by mouth in the morning. 09/11/2022 Active dutasteride (Avodart) 0.5 MG capsule Take 0.5 mg by mouth in the morning. 11/28/2022 Active furosemide (Lasix) 40 MG tablet Take 40 mg by mouth in the morning. Active glipiZIDE (Glucotrol) 5 MG tablet Take 5 mg by mouth in the morning and 5 mg in the evening. Take before meals. Active hydroCHLOROthiaz tamika (HYDRODiuril) 25 MG tablet Take 25 mg by mouth in the morning. Active isosorbide mononitrate ER (Imdur) 60 MG 24 hr tablet Take 1 tablet by mouth in the morning. Active lisinopril 20 MG tablet Take 20 mg by mouth in the morning. Active metFORMIN XR (Glucophage-XR) 500 MG 24 hr tablet Take 500 mg by mouth in the evening. Take with meals. Active metoprolol tartrate (Lopressor) 25 MG tablet Take 25 mg by mouth in the morning and 25 mg before bedtime. Active Nitrostat 0.[address] 0.4 mg under the tongue every 5 (five) minutes if needed. 06/19/2022 Active oxyCODONE (Roxicodone) 5 MG immediate release tablet Take 5 mg by mouth every 4 (four) hours if needed. Active potassium chloride CR (Klor-Con M20) 20 MEQ ER tablet Take 20 mEq by mouth in the morning. Active predniSONE (Deltasone) 20 MG tablet Take 20 mg by mouth in the morning. Active pregabalin (Lyrica) 75 MG capsule Take 75 mg by mouth in the morning. 11/17/2022 Active Xarelto 20 MG tablet Take 20 mg by mouth in the evening. Take with meals. 04/14/2022 Active sertraline (Zoloft) 100 MG tablet Take 100 mg by mouth in the morning. Active spironolactone (Aldactone) 25 MG tablet Take 12.5 mg by mouth in the morning. 06/19/2022 Active Active Problems No known active problems Family History Medical History Relation Name Comments Heart disease Father Hypertension Father Diabetes Mother Hypertension Mother Relation Name Status Comments Father Mother Social History Tobacco Use Types Packs/Day Years Used Date Smoking Tobacco: Never Smokeless Tobacco: Never Tobacco Cessation:Counseling Given: Yes Alcohol Use Standard Drinks/Week Comments Never 0 (1 standard drink = 0.6 oz pur e alcohol) caffeine yes type: coffee Sex and Gender Information Value Date Recorded Sex Assigned at Not on file Legal Sex Male 6:51 PM EDT Gender Identity Not on file Sexual Orientation Not on file Last Filed Vital Signs Vital Sign Reading Time Taken Comments Blood Pressure 131/84 07/12/2023 11:33 AM EST Pulse 78 07/12/2023 11:33 AM EST Temperature - - Respiratory Rate - - Oxygen Saturation - - Inhaled Oxygen Concentration - - Weight 82.1 kg (181 lb) 07/12/2023 11:33 AM EST Height 166.9 cm (5' 5.7 ) 07/12/2023 11:33 AM ES T Body Mass Index 29.48 07/12/2023 11:33 AM EST Plan of Treatment Health Maintenance Due Date Last Done Comments Pneumococcal Vaccine: 65+ Years (1 of 1 - PCV) 998 Influenza Vaccine (#1) 2025 Insurance [employer] MEDICARE Care Teams Landing Worker Relationship Specialty Start Date End Date Susana Jackson MD PCP - General Family Medicine 11/30/22
--- NOTE | 2024-12-04 08:00 | CA_ITS ---
Patient Name: MARILU TAYLOR MR#: [id number] : 1950 Exam Date: 12/04/2024 Ordering Doctor: DR BLAS OSPINA M.D. ECHOCARDIOGRAM REPORT PROCEDURE: CA ECHO DOPPLER COMPLETE INDICATIONS: S/P TAVR (transcatheter aortic valve replacement) COMPARISON: None. DESCRIPTION: COMPLETE ECHOCARDIOGRAM Real-time transthoracic echocardiography with 2D, M-mode, spectral and color flow Doppler performed. QUALITY: Technical quality was good. LEFT VENTRICLE: Normal chamber size. Mild concentric left ventricular hypertrophy. Global left ventricular systolic function is normal. LV EF: Estimated left ventricular ejection fraction is 55%. DIASTOLIC: Diastolic function is indeterminate. ATRIAL SEPTUM: LEFT ATRIUM: Mild chamber dilatation. RIGHT ATRIUM: Normal chamber size. RIGHT VENTRICLE: Normal chamber size. Normal right ventricular systolic function. TRICUSPID VALVE: Normal mobility and thickness. No stenosis with trivial regurgitation. No evidence of pulmonary hypertension. RVSP 17 mmHg. MITRAL VALVE: Normal mobility and thickness. No evidence of mitral valve stenosis. There is no mitral annular calcification. Trivial mitral regurgitation. AORTIC VALVE: Bio-Prosthetic valve appears well seated in the aortic position with normal doppler flow. Peak/mean gradient 21/9 mmHg. No aortic regurgitation. AORTIC ROOT: Normal diameter and appearance, measuring 3.0 cm. The ascending aorta is normal in size measuring 3.1 cm. PULMONIC VALVE: Normal thickness and mobility. No stenosis. Trivial regurgitation. PERICARDIUM: No evidence of pericardial effusion. IVC: Collapses with inspiration. Normal size. PLEURA: CONCLUSION: 1. Mild concentric left ventricular hypertrophy with normal systolic function. Estimated LVEF is 55%. 2. Normal right ventricular size and systolic function. 3. Bioprosthetic aortic valve is well-seated with normal Doppler flows and no regurgitation. 4. Normal right-sided pressures. 5. No pericardial effusion. Adult Echocardiography Procedure Report Left Ventricle LVEDD (3.7 - 5.6 cm): 5.35 cm LVESD (2.2 - 4.0 cm): 4.24 cm LVIVS thickness (0.6 - 1.2 cm): 1.17 cm LVPW thickness (0.5 - 1.0 cm): 1.06 cm e': 0.07 m/s E - e': 11.34 LVOT Max Gradient: 3.79 mm[Hg], 3.55 mm[Hg] LVOT Area (cm2): 0.96 m/s Peak Velocity (LVOT): 0.97 m/s, 0.94 m/s Mean Velocity (LVOT): 0.61 m/s LVOT Diameter 2.11 cm Left Ventricular Ejection Fraction: 55 % Left Atrium LA Volume Index (2D A2C): 34.89 ml/m2 Left Atrium Systolic Dimension: 5.35 cm Mitral Valve MV E to A Ratio: 0.72 Mitral Valve A-Wave Peak Velocity: 1.12 m/s Mitral Valve E-Wave Peak Velocity: 0.81 m/s Right Ventricle RV Internal Diastolic Dimension: 3.91 cm Aorta AO Root Diam: 3.04 cm Ascending Ao Diam: 3.14 cm Aortic Valve AoV Area (Peak Abiel): 1.68 cm2, 1.98 cm2, 1.70 cm2 AoV Area (VTI): 1.66 cm2, 1.91 cm2, 1.56 cm2 Peak Velocity(Antegrade Flow): 1.72 m/s, 1.93 m/s, 1.97 m/s, 2.28 m/s, 2.05 m/s Peak Gradient(Antegrade Flow): 11.81 mm[Hg], 14.95 mm[Hg], 15.58 mm[Hg], 20.75 mm[Hg], 16.84 mm[Hg] Mean Velocity(Antegrade Flow): 1.16 m/s, 1.28 m/s, 1.30 m/s, 1.42 m/s, 1.33 m/s Mean Gradient(Antegrade Flow): 6.26 mm[Hg], 7.60 mm[Hg], 7.81 mm[Hg], 9.23 mm[Hg], 8.17 mm[Hg] Velocity Time Integral: 41.69 cm, 47.58 cm, 43.75 cm, 49.71 cm, 49.58 cm Tricuspid Valve Peak Velocity (Regurgitant Flow): 1.85 m/s Pulmonic Valve Mean Gradient: 1.66 mm[Hg], 1.84 mm[Hg] Mean Velocity: 0.58 m/s, 0.62 m/s Peak Velocity: 0.95 m/s Peak Gradient: 3.51 mm[Hg], 3.73 mm[Hg] Right Atrium Right Atrium Systolic Pressure: 39.07 ml, 39.07 ml Dictated by: Blas Ospina M.D. on 12/04/2024 at 18:21 Approved by: Blas Ospina M.D. on 12/04/2024 at 18:25
== END 2024-12-04 07:46 | disposition home or self-care (01) ==
LOC: CARD 07:46
PROVIDERS: PCP Family Medicine; Visit Provider Internal Medicine Interventional Cardiology
DX: Z95.2 Presence of prosthetic heart valve (principal)
CPT/HCPCS: 93306

== ENCOUNTER 2025-01-26 09:13 | Emergency (ER) | payer MEDICARE, SELFPAY ==
--- OUTSIDE RECORDS SUMMARY | 2014-11-09 09:00 | XMS_ITS | Encounter Summary ---
Author Organization [facility] Address [address] [facility], [address] [place] [address] Care Team Providers Care Stummel Selector Name Role Phone Unavailable Primary Care Provider Unavailabl e Encounter Details Date Type Department Care Team (Late st Contact Info) Description 11/09/2014 9:00 AM EDT Hospital Encounter [facility] Cardiac Rehab [address] [place], [place] [id number] Adeel Peterson MD [address] [place] [address] Social History Tobacco Use Types Packs/Day Years [...] CARDIAC REHAB REPORT (04/17/2015 10:42 AM EST) [facility] Scanning CARDIAC REHAB ORDERABLES Edited Result - Final documented in this encounter Visit Diagnoses Not on filedocumented in this encounter
--- OUTSIDE RECORDS SUMMARY | 2014-11-26 09:00 | XMS_ITS | Encounter Summary ---
Author Organization [facility] Address [address] [facility], [address] [place] [address] Care Team Providers Care Bit Sharpener Operator Name Role Phone Unavailable Primary Care Provider Unavailabl e Encounter Details Date Type Department Care Team (Late st Contact Info) Description 11/26/2014 9:00 AM EDT Hospital Encounter [facility] Cardiac Rehab [address] [place] [address] Adeel Peterson MD [address] [place] [address] Social History Tobacco Use Types Packs/Day Years [...]
--- OUTSIDE RECORDS SUMMARY | 2014-12-02 08:00 | XMS_ITS | Encounter Summary ---
Author Organization [facility] Address [address] [facility], [address] [place] [address] Care Team Providers Care Staff Development Coordinator Name Role Phone Unavailable Primary Care Provider Unavailabl e Encounter Details Date Type Department Care Team (Late st Contact Info) Description 12/02/2014 8:00 AM EDT Hospital Encounter [facility] Cardiac Rehab [address] [place] [address] Adeel Peterson MD [address] [place] [address] Social History Tobacco Use Types Packs/Day Years [...] daily [x] Resistance Training Education: [x] Equipment Rowena [x] Self pulse [] Proper use weights/therabands [x] S/S to report [x] Low Na Diet [x] Warm up/ Cool down [] BP Medication [x] RPE Scale [] Understand BP [x] Ex Safety [] electrical system specialist class-Home Exercise Target Goal: -Individual Exercise [...] [] Prep [] Relapse Intervention: [] Psych Consult/neonatal social worker [x] Uses stress management skills [...]
--- OUTSIDE RECORDS SUMMARY | 2014-12-03 08:00 | XMS_ITS | Encounter Summary ---
Author Organization [facility] Address [address] [facility], [address] [place] [address] Care Team Providers Care Sld Educational Aide Name Role Phone Unavailable Primary Care Provider Unavailabl e Encounter Details Date Type Department Care Team (Late st Contact Info) Description 12/03/2014 8:00 AM EDT Hospital Encounter [facility] Cardiac Rehab [address] [place] [address] Adeel Peterson MD [address] [place] [address] Social History Tobacco Use Types Packs/Day Years [...] as of this encounter Progress Notes * Karla Lea RN - 12/04/2014 12:54 PM EDT Talked with concerning not attending rehab. She states he is not returning , Too busy and active at home. Re-enforcedf benefits of rehab and risk factor modifications. documented in this encounter Plan of Treatment Not on file documented as of this encounter Visit Diagnoses Not on filedocumented in this encounter
[2025-01-26 09:22] VITALS: BP 166/80; PULSE 65; TEMP 36.5; O2SAT 100; BMI 27.8
--- OUTSIDE RECORDS SUMMARY | 2025-01-26 09:23 | XMS_ITS | Clinical Summary ---
Author Organization [facility] Healthcare Address [address] [place] [address] Care Team Providers Care Classified Advertising Clerk Name Role Phone Susana Jackson MD Primary Care Provider Allergies Active Allergy Reactions Criticality Noted Date [...] 2025 Insurance [employer] MEDICARE Care Teams Classified Advertising Clerk Relationship Specialty Start Date End Date Susana Jackson MD PCP - General Family Medicine 11/30/22
--- OUTSIDE RECORDS SUMMARY | 2025-01-26 09:23 | XMS_ITS | Clinical Summary ---
Author Organization [facility] Address [id number] [address] [place] [address] Care Team Providers Care Halal Butcher Name Role Phone Susana Jackson MD Primary Care Provider [phone] Social History Tobacco Use Types Packs/Day Years [...] Medical Devices Not on file Care Teams Halal Butcher Relationship Specialty Start Date End Date Susana Jackson MD [address] [place] [id number] PCP - General 06/25/18
--- OUTSIDE RECORDS SUMMARY | 2025-01-26 09:23 | XMS_ITS | Encounter Summary ---
Author Organization [facility] Address [address] [place] [address] Care Team Providers Care Media Center Specialist Name Role Phone Susana Jackson MD Primary Care Provider [phone] Encounter Details Date Type Department Care Team (Late st Contact Info) Description 08/03/2023 Orders Only [facility] [address] [place] [address] Caitlyn Torres MA PVD (peripheral vascular disease) [...] disease documented in this encounter Care Teams Media Center Specialist Relationship Specialty Start Date End Date Susana Jackson MD PCP - General Family Medicine 11/30/22 documented as of this encounter
--- OUTSIDE RECORDS SUMMARY | 2025-01-26 09:23 | XMS_ITS | Clinical Summary ---
Author Organization [facility] Address [address], [address] [place] [address] Care Team Providers Care Varnish Maker Helper Name Role Phone Susana Jackson MD Primary Care Provider [phone] Allergies Active Allergy Reactions Criticality Noted Date [...] this topic Medical Devices Implanted Type Area Gm Device Identifier Shelf Expiration Date Model / Serial / Lot Lens Intraocular Bcnvx 19+ Diopt 6x12.5 Mm Acryl Envista - [id number] Implanted:Qty: 1 on 09/19/2021 by Eusebio Vazquez DO at [facility] Left: Eye [employer]CH [employer] LOMB-WD 01/12/2024 [id number] / [id number] / Procedures Procedure Name Priority Date/Time Associated Diagnosis Comments LIPID PANEL Routine 12/01/2021 7:01 AM EDT HEMOGLOBIN A1C Routine 12/01/2021 7:01 AM EDT MICROALBUMIN, UR Routine 03/21/2018 7:12 AM EST from Last 3 Months or Most Recently Relevant to Health Maintenance Results * (ABNORMAL) Hemoglobin A1C (12/01/2021 7:01 AM EDT) Hemoglobin A1C 8.2(H) 4.0 - 6.0 % 12/01/2021 7:01 AM EDT [facility] Estimated Avg Glucose 189 mg/dL 12/01/2021 7:01 AM EDT [facility] Comment: The ADA and AACC recommend providing the estimated average glucose result to permit better patient understanding of their HBA1c result. 12/01/2021 7:01 AM EDT 12/01/2021 7:02 AM EDT us Susana Jackson MD CHEMISTRY ORDERABLES Final Resul t [facility] [address] [place] [address], [facility] [phone] [facility] [address] [phone] * (ABNORMAL) Lipid Panel (12/01/2021 7:01 AM EDT) Cholesterol 79 <200 mg/dL 12/01/2021 7:01 AM EDT [facility] Comment: Cholesterol Guidelines: <200 Desirable 200-240 Borderline >240 Undesirable HDL 30(L) >40 mg/dL 12/01/2021 7:01 AM EDT [facility] Comment: HDL Guidelines: <40 Undesirable 40-59 Borderline >59 Desirable LDL Cholesterol 29 0 - 130 mg/dL 12/01/2021 7:01 AM EDT [facility] Comment: LDL Guidelines: <100 Desirable 100-129 Near to/above Desirable 130-159 Borderline >159 Undesirable Direct (measured) LDL and calculated LDL are not interchangeable tests. Chol/HDL Ratio 2.6 <5 12/01/2021 7:01 AM EDT [facility] Comment: Triglycerides 100 <150 mg/dL 12/01/2021 7:01 AM EDT [facility] Comment: Triglyceride Guidelines: <150 Desirable 150-199 Borderline 200-499 High >499 Very high Based on AHA Guidelines for fasting triglyceride, February 2012. 12/01/2021 7:01 AM EDT 12/01/2021 7:02 AM EDT us Susana aJckson MD CHEMISTRY ORDERABLES Final Resul t [facility] [address] [place] [address], [facility] [phone] [phone] * Microalbumin, Ur (03/21/2018 7:12 AM EST) Albumin Urine <12 <21 mg/L 03/21/2018 8:56 AM EST [facility] Creatinine, Ur 70.6 39.0 - 259.0 mg/dL 03/21/2018 8:56 AM [facility] Microalb/Public Bath Attendant. Ratio CANNOT BE CALCULATED <17 mcg/mg creat 03/21/2018 8:56 AM EST [facility] 03/21/2018 7:12 AM EST 03/21/2018 7:13 AM EST us Susana Jackson MD URINE ORDERABLES Final Result [facility] [address] [phone] from Last 3 Months or Most Recently Relevant to Health Maintenance Advance Directives * Full Code (Latest Code Status on File) Date Activated Date Inactivated Comments 09/19/2021 11:42 AM 09/19/2021 3:59 PM Care Teams Varnish Maker Helper Relationship Specialty Start Date End Date Susana Jackson MD PCP - General 03/03/16
--- OUTSIDE RECORDS SUMMARY | 2025-01-26 09:33 | XMS_ITS | CCD ---
Author Organization [facility] Care Team Providers Care Program Analyst Name Role Phone ANA AYALA Admitting Unavailable SELF, REFERRED Referring Unavailable EBHEIMBRADLYIL Surgeon Unavailable ME Procedure Practitioner Unavailab le PITTS, MARY BETH Primary Care Unavailable MICHAEL BIGGS Attending Unavailable SWETHA WINTER Attending Unavailable SWETHA WINTER Admitting Unavailable HONG, MARY BETH Primary Care Unavailable HONG, MARY BETH Referring Unavailable HONG, MARY BETH Primary Care Unavailable HONG, MARY BETH Referring Unavailable KENDAL TORRES Attending Unavailable KENDAL TORRES Admitting Unavailable MASROOR, SANTANA Surgeon Unavailable MASROOR, SANTANA Admitting Unavailable ME Procedure Practitioner Unavailab le PITTS, MARY BETH Referring Unavailable REYNALDO COX Attending Unavailable HONG, MARY BETH Primary Care Unavailable REYNALDO COX Surgeon Unavailable ME Procedure Practitioner Unavailab le UNKNOWN, PROVIDER Surgeon Unavailable ME Procedure Practitioner Unavailab le Pitts , Mary Beth Primary Care Provider [phone] Hong DIAZ, Mary Beth Primary Care Provider [phone] Mary Beth Pitts MD Primary Care Provider [phone] Hong DIAZ, Mary Beth Primary Care Provider [phone] MARY BETH PITTS Primary Care Unavailable MARY BETH PITTS Referring Unavailable BLAS OSPINA Referring Unavailable HONG, MARY BETH Primary Care Unavailable HONG, MARY BETH Primary Care Unavailable ROBERTA VAZQUEZ Admitting Unavailable ROBERTA VAZQUEZ Attending Unavailable MARY BETH PITTS Primary Care Physician Diogenes, Dr. Jc Case Attending Skinny Pitts, Dr. Mary Beth Roman Primary Care Flavia Pitst, Dr. Mary Beth Roman Primary Care Flavia [...] Provider MD Eduardo Nguyen Other Provider Socorro [facility] Linh Liriano Other Provider MD Debi Goins Other Provider [phone] MD Cristo Rivera Other Provider [phone] MD Kendal Moy Other Provider MD Trino Carlton Other Provider MD Mary Jane Morrell Jr Other Provider [phone] MD Karla Aranda Other Provider MD Seth Segundo Other Provider [phone] GALEN MEDINA Consulting Unavailable HONG, DR [...] Unavailable MD Mary Beth Pitts Primary Care Jocelynva gilbert Villagomez MD, Gerald Pérez Attending Unavailable MD Mary Beth Pitts Consulting Jocelynva MD Mary Beth Hess Primary Care Unava gilbert Villagomez MD, Gerald Chi Attending Unavailable Hernando DIAZ, Gerald Beto Attending Unavailable MD Mary Beth Pitts Primary Care MD Mary Beth Hussein Consulting Skinny Villagomez MD, Gerald Pérez Attending Unavailable MD Mary Beth Pitts Primary [facility] MD Mary Beth Hussein Consulting MD Mary Beth Hussein Primary Care Unava gilbert Villagomez MD, Gerald Pérez Attending Unavailable Hernando DIAZ, Gerald Pérez Attending Unavailable MD Mary Beth Pitts Primary Care Provider [phone] MD Mary Beth Pitts Attending Provider [phone] MD Blas Ospina V Other Provider [phone] Mary Beth Pitts Unavailable Mahendra Escalante Unavailable [phone] KAMILA WILSON Attending Unavailable MD Mary Beth Pitts Primary Care Provider [phone] JOSE ENRIQUE Mckee Attending Provider MD Mary Beth Pitts Primary Care Provider JOSE ENRIQUE Mckee Attending Provider [phone] Mary Beth Pitts Primary Care Unavailable Narcisa Mckee Attending Unavailable Narcisa Mckee Admitting Unavailable RIVERACristo R Attending Unavailable RIVERA, Cristo R Attending Unavailable RIVERA, Cristo R Attending Unavailable RIVERA, Cristo R Admitting Unavailable RIVERA, Cristo R Attending Unavailable RIVERA, Cristo R Attending Unavailable RIVERA, Cristo R Attending Unavailable RIVEAR, Cristo R Attending Unavailable RIVERA, Cristo R Attending Unavailable RIVERA, Cristo R Attending Unavailable RIVERA, Cristo R Admitting Unavailable RIVERA, Cristo R Attending Unavailable Ricco Mandujano Primary Care Physician Cristo RIVERA R Attending Unavailable MD Ricco Mandujano Admitting Unavailable MD Ricco Mandujano Attending Unavailable MD Ricco Mandujano Attending Unavailable RIVERA, Cristo R Attending Unavailable Mary Beth Pitts MD Primary Care Provider [phone] Mary Beth Pitts MD Attending Provider [phone] MARSHALL LUONG Referring Unavailable MARSHALL LOUNG Referring Unavailable MARSHALL LUONG Attending Unavailable MARSHALL LUONG Attending Unavailable BLAS OSPINA Attending Unavailable BLAS OSPINA Attending Unavailable Allergies Allergy Classification Reported Allergen(s) Allergy Type Date of Onset Reaction(s) Facility Dihydrofolate Reductase Inhibitors (antibiotic) (1 source) Trimethoprim Drug Allergy 10-18-19 24 [facility] Doxycycline (1 source) Doxycycline; Translations: [doxycycline] Drug Allergy Blisters beneath skin (disorder) [facility] Comment on above: Blisters on hands Penicillins (antibiotic) (3 sources) Penicillins; Translations: [penicillin] Drug Allergy 10-30-19 15 Shortness Of Breath, Swelling, Anaphylaxis (disorder), Tightness in throat (finding) [facility] Sulfonamides (antibiotic) (3 sources) Sulfamethoxazole; Translations: [sulfa drugs] Drug Allergy 10-18-19 24 Vomitus (substance) [facility] (12 sources) Erythromycin; Translations: [ERYTHROMYCIN BASE] Drug Allergy 11-12-19 14 Vomiting [facility] (13 sources) Penicillins; Translations: [PENICILLINS] Drug allergy (disorder) 12-03-19 14 Shortness Of Breath, Swelling [facility] Comment on above: Onset Date: 03/03/20 15 (1 source) Sulfamethoxazole / Trimethoprim Drug Allergy 09-14-19 15 [facility] (1 source) Penicillins Propensity to adverse reactions to drug 10-30-19 15 Shortness Of Breath [facility] (13 sources) Erythromycin; Translations: [ERYTHROMYCIN] Drug Allergy 09-07-19 22 Unknown [facility] (20 sources) Penicillin; Translations: [penicillin] Drug Allergy Tightness in throat (finding), hives, Anaphylaxis (disorder) [facility] (20 sources) Sulfonamides (Antibiotic); Translations: [sulfa drugs] Drug allergy Vomitus (substance) [facility] (9 sources) Sulfonamides (Antibiotic); Translations: [SULFA (SULFONAMIDE ANTIBIOTICS)] Allergy to substance 03-17-20 Unknown Reaction [facility] (1 source) Sulfonamides (Antibiotic) Drug allergy (disorder) 11-19-19 14 [facility] (1 source) MOST ANTIBIOTICS; Translations: [MOST ANTIBIOTICS] Propensity to adverse reactions to drug (disorder) [facility] (8 sources) Sulfamethoxazole / Trimethoprim Drug Allergy Unknown [facility] Other (2 sources) Substance with penicillin structure and antibacterial mechanism of action (substance) Drug allergy 03-03-20 15 Unknown [facility] Other (9 sources) ANTIBIOTICS Propensity to adverse reactions 03-03-20 15 Unknown, [facility] Comment on above: Onset Date: 03/03/20 15 (2 sources) Allergies Reconciled Propensity to adverse reactions Unknown [facility] Other (2 sources) patient allergy list reviewed by nurse or physicia Propensity to adverse reactions 03-03-20 Comment:Done [facility] Other (15 sources) Doxycycline; Translations: [doxycycline] Drug Allergy 09-03-19 24 Blisters beneath skin (disorder) [facility] Comment on above: Blisters on hands (6 sources) Sulfamethoxazole Drug Allergy 11-26-19 24 [facility] (6 sources) Trimethoprim Drug Allergy 11-26-19 24 [facility] (1 source) Sulfamethoxazole / Trimethoprim; Translations: [SULFAMETHOXAZOLE-T RIMETHOPRIM] Drug Allergy 04-14-20 [facility] Medications Current Medications Medication Drug Class(es) Dates Sig (Normalized) Sig (Original) Accu-Chek Guide - (3 sources) Start: 11-22-2022 Accu-Chek Guide - 1 strip to check BS once daily for 30 days Nov, Active Accu-Chek Guide Me w/Device (3 sources) Accu-Chek Guide Me w/Device 1 meter to check BS once daily for 365 days Active [id number] actuat albuterol 0.09 mg/actuat metered dose inhaler (3 sources) beta2-Adrenergic Agonist Start: 06-25-2024 take 1 puff(s) by inhalation every four to six hours as needed for wheezing Albuterol Sulfate 90 mcg/actuation HFA aerosol inhaler Active 2 PUFF INHALATION EVERY 4-6 HOURS as needed for shortness of breath or wheezing 6.7 June 25, 2024 1:00am Complies with drug therapy Albuterol Sulfate 90 mcg/actuation HFA aerosol inhaler [...] sources) Dihydropyridine Calcium Channel Rick Start: 06-05-2022 take 1 tablet by mouth once daily Amlodipine (Norvasc) 10 mg tablet Active 10 MG PO Daily July 11, 2024 1:00am [employer] tablet Orally Once a day; Note: Source Status: Taking; Provider: Hong Meza ( ) Complies with drug therapy aspirin 81 mg delayed release oral tablet (14 sources) Platelet Aggregation Inhibitor, Nonsteroidal Anti-inflammatory Drug Start: 07-11-2024 take 1 tablet by mouth once daily End: 09-06-2021 take 1 tablet by mouth once daily take 1 tablet by mouth every twe nty-four hours calcium chloride 0.0014 meq/ml / potassium chloride 0.004 meq/ml / sodium chloride 0.103 meq/ml / sodium lactate 0.028 meq/ml injectable solution (1 source) Start: 09-19-2021 lactated ringe rs infusion ciprofloxacin 3 mg/ml ophthalmic solution (13 sources) Quinolone Antimicrobial Start: 12-03-2024 Ciprofloxacin Hcl 0. 3 % drops Active 0 OPHTHALMIC .COMPLEX December 03, 2024 12:00am put 1-2 drps in affected eye(s) every 2hr up to 8 times/day x2days; then 4 times/day x5days Eye-Both Complies with drug therapy Start: 12-21-2023 End: 09-08-2024 take 1 tablet by mouth twice daily [...] 7:20am Start: 06-05-2022 take 1 tablet by vasiliy th once daily Cipro 500 mg Tab 500 mg = 1 tab(s), Oral, Daily, Take 1 tablet the day before the procedure and 1 tablet after the procedure, # 2 tab(s), Refills(s) 0, Pharmacy: [id number], 168, cm, 06/05/22 9:33:00 EST, Height/Length Dosing, 73, kg, 06/05/22 9:33:00 E... Start Date: 06/05/22 Status: Ordered dutasteride 0.5 mg oral capsule (19 sources) 5-alpha Reductase Inhibitor Start: 11-27-2022 End: 06-19-2024 take 1 capsule by mouth once daily dutasteride 0.5 mg Cap 0.5 mg = 1 cap(s), Oral, Daily, # 90 cap(s), Refills(s) 3, Pharmacy: [id number], 166, cm, 06/09/24 10:17:00 EST, Height/Length Dosing, 81, kg, 06/09/24 10:17:00 EST, Weight Dosing Start Date: 08/01/24 Status: Ordered Quantity: 90.0 Unit: cap(s) Repeat number: 4 24 hr isosorbide mononitrate 30 mg extended release oral tablet (20 sources) Nitrate Vasodilator Start: 02-27-2022 take 1 tablet by mouth once daily, then take 1 tablet by mouth every twenty-four hours Isosorbide Mononitrate 30 mg tablet extended release 24 hr Active 30 MG PO Daily March 17, 2022 12:00am Complies with drug therapy take 1 tablet by vasiliy th every twenty-four hours Isosorbide Mononitrate ER 60 MG 1 tablet in the morning Orally Once a day Active levoFLOXacin 500 mg oral tablet (12 sources) Quinolone Antimicrobial Start: 06-09-2024 End: 06-19-2024 [...] mg tablet Discontinued 750 MG PO Daily 11 17March 19, 2022 12:00am October 30, 2023 7:21am metoprolol tartrate 50 mg oral tablet (20 sources) beta-Adrenergic Rick Start: 03-17-2022 Metopr olol Tartrate 50 mg tablet Active 25 MG PO Twice daily March 17, 2022 12:00am Complies with drug therapy Start: 03-17-2022 take 25 mg by mouth twice pierce y Metoprolol Tartrate Active 25 MG PO Twice daily March 17, 2022 12:00am Start: 02-27-2022 Metoprolol tar trate 50 mg Tab Refills(s) 0 Start Date: 02/27/22 Status: Ordered Repeat number: 1 Start: 02-27-2022 Metoprolol tar trate 50 mg [...] 0.4mg 1 Sublingual Every 5min x3 Active nitroglycerin 0.4 mg sublingual tablet (3 sources) Nitrate Vasodilator Start: 07-11-2024 nystatin 100 unt/mg topical powder (13 sources) Polyene Antifungal Start: 10-30-2023 Nystatin 10 0,000 unit/gram powder Active 1 APPLIC TOPICAL Twice daily October 30, 2023 12:00am apply to sacral, buttock, scrotal areas as per wound orders Complies with drug therapy Start: 10-18-2023 End: 10-30-2023 Nystatin 100,000 unit/mL kellie pension Discontinued [id number] UNIT PO Daily October 18, 2023 12:00am October 30, 2023 7:22am administer 1/2 of dose in each side of the mouth phenylephrine hydrochloride 25 mg/ml ophthalmic solution (1 source) alpha-1 Adrenergic Agonist Start: 09-19-2021 phenylephrine (MYDFRIN) 2.5 % ophthalmic solution 1 drop proparacaine hydrochloride 5 mg/ml ophthalmic solution (1 source) Local Anesthetic Start: 09-19-2021 proparacaine (ALCAINE) 0.5 % ophthalmic solution 1 drop rivaroxaban 20 mg oral tablet (20 sources) Factor Xa Inhibitor Start: 02-27-2022 take 1 tablet by mouth once daily Rivaroxaban (Xarelto) 20 mg tablet Active 20 MG PO Daily March 17, 2022 12:00am Complies with drug therapy Xarelto 20 20 On ce PO Daily Active rivaroxaban (XAR ELTO) 20 MG TABS tablet Take 20 mg by mouth 0 Active simvastatin 40 mg oral tablet (20 sources) HMG-CoA Reductase Inhibitor Start: 09-02-2024 Simvastatin 40 mg tablet Active 20 MG PO Daily September 02, 2024 9:30am Complies with drug therapy Start: 02-27-2022 End: 09-02-2024 take 1 tablet by mouth once daily Simvastatin 40 mg tablet Discontinued 40 MG PO Daily March 17, 2022 12:00am September 02, 2024 9:31am 5 ml sodium chloride 9 mg/ml injection [...] tablet Active 25 MG PO Daily October 30, 2023 12:00am Complies with drug therapy take 0.5 tablet by m outh once [...] Weight Dosing Start Date: 11/19/23 Status: Ordered Quantity: 60.0 Unit: cap(s) Repeat number: 12 Start: 03-17-2022 take 1 capsule by [facility] twice daily Tamsulosin 0.4 mg capsule Active 0.4 MG PO Twice daily March 17, 2022 12:00am Complies with drug therapy Start: 03-17-2022 Tamsulosin Act haydee MG PO March 17, 2022 12:00am Start: 02-27-2022 take 1 capsule by [facility] once daily Flomax 0.4 mg Cap 0.4 mg = 1 cap(s), Oral, Daily, # 30 cap(s), Refills(s) 6, Pharmacy: [id number], 168, cm, 02/27/22 9:27:00 EDT, [...] Drug Class(es) Dates Sig (Normalized) Sig (Original) benzonatate 200 mg oral capsule (4 sources) Non-narcotic Antitussive Start: 06-25-2024 End: 09-02-2024 take 1 capsule by mouth three times daily as needed for cough Benzonatate 200 mg capsule Discontinued 200 MG PO Three times daily as needed for cough 30 June 25, 2025 1:00am September 02, 2024 9:31am clopidogrel 75 mg oral tablet (15 sources) [id number] Platelet Inhibitor Start: 03-17-2022 End: 10-30-2023 take 1 tablet by mouth once daily Clopidogrel 75 mg tablet Discontinued 75 MG PO Daily March 17, 2022 12:00am October 30, 2023 7:21am Start: 02-27-2022 clopidogrel 75 mg Tab Refills(s) 0 Start Date: 02/27/22 Status: [facility] clop[facility]ogrel (PLAVIX) 75 MG tablet Take 75 mg by mouth daily 0 Active donepezil hydrochloride 5 mg oral tablet (17 sources) Start: 03-17-2022 End: 10-30-2023 Donepezil 5 mg tablet Discontinued MG March 17, 2022 12:00am October 30, 2023 7:21am On Hold: Resume on 03/27/22. hold for 7 days until your finish your antibiotics Start: 03-17-2022 End: 10-30-2023 Donepezil Discontinued MG TA BLET March 17, 2022 12:00am October 30, 2023 7:21am doxycycline monohydrate 100 mg oral tablet (20 sources) Tetracycline-class Drug Start: 06-25-2024 End: 09-02-2024 take 1 tablet by mouth twice daily Doxycycline Monohydrate 100 mg tablet Discontinued 100 MG PO Twice daily 20 June 25, 2024 1:00am September 02, 2024 9:32am Start: 11-27-2022 End: 12-27-2022 take 1 capsule [...] Start: 08-28-2022 take 1 capsule by mo [facility] every twenty-four hours Doxycycline Monohydrate 100 MG 1 capsule Orally Once a day for 10 days Aug, Active Start: 03-17-2022 End: 03-19-2022 Doxycycline Hyclate 100 mg c apsule Discontinued MG March 17, 2022 12:00am March 19, 2022 1:21pm Start: 03-17-2022 End: 03-19-2022 Doxycycline Hyclate Disconti nued MG March 17, 2022 12:00am March 19, 2022 1:21pm Start: 02-27-2022 End: 03-13-2022 take 1 mg by mouth twice daily doxycycline hyclate 100 mg Cap mg cap(s), Oral, BID, Refills(s) 0 Start Date: 02/27/22 Status: Ordered furosemide 20 mg oral tablet (7 sources) Loop Diuretic Start: 10-18-2023 End: 10-30-2023 take 1 tablet by mouth once daily Furosemide 20 mg tablet Discontinued 20 MG PO Daily October 18, 2023 12:00am October 30, 2023 7:21am lisinopril 5 mg oral tablet (20 sources) Angiotensin Converting Enzyme Inhibitor Start: 11-26-2023 End: 09-02-2024 take 1 tablet by mouth once daily Lisinopril 5 mg tablet Discontinued 5 MG PO Daily April 14, 2024 1:40pm September 02, 2024 9:35am Start: 11-26-2023 take 5 mg by mouth twice daily Lisinopril Active 5 MG PO Twice daily November 26, 2023 12:00am Start: 03-17-2022 End: 11-26-2023 Lisinopril 20 mg tablet Disc ontinued 15 MG PO Daily March 17, 2022 12:00am November 26, 2023 10:04am Start: 03-17-2022 End: 11-26-2023 take 15 mg [...] tablet (20 sources) Biguanide Start: 03-17-2022 End: 08-23-2024 Metformin 500 mg tablet extended release 24 hr Discontinued 1000 MG PO Twice daily 360 90 November 26, 2023 10:26am January 10, 2024 11:25am Start: 03-17-2022 End: 11-26-2023 take 1000 mg by mouth twice daily Metformin Discontinued 1000 MG PO Twice daily 360 90 October 30, 2023 3:37pm November 26, 2023 10:27am Start: 02-27-2022 MetFORMIN (Eqv -Glucophage XR) 500 mg oral tablet, extended release Refills(s) 0 Start Date: 02/27/22 Status: Ordered Repeat number: 1 take 2 tablets by mo [facility] twice daily metFORMIN HCl ER 500 MG TAKE 2 TABLETS BY MOUTH 2 TIMES A DAY Active take 1 tablet by vasiliy twice daily at mealtime metFORMIN (GLUCOPHAGE) 500 MG tablet Take 500 mg by mouth 2 times daily (with meals) 0 Active methylPREDNISolone 4 mg oral tablet (3 sources) Corticosteroid Start: 06-25-2024 End: 09-02-2024 take 1 tablet by mouth once Methylprednisolone (Medrol (Eliazar)) 4 mg tablets,dose pack Discontinued 0 PO per package directions June 25, 2024 1:00am September 02, 2024 9:33am PO PER PKG DIR pantoprazole 40 mg delayed release oral tablet (20 sources) Proton Pump Inhibitor Start: 10-18-2023 End: 08-01-2024 take 1 tablet by mouth once daily Pantoprazole 40 mg tablet,delayed release (DR/EC) Discontinued 40 MG PO Daily November 26, 2023 10:27am January 10, 2024 11:25am pregabalin 75 mg oral capsule (11 sources) Start: 07-11-2024 End: 09-02-2024 take 1 capsule by mouth twice daily Pregabalin 75 mg capsule Discontinued 75 MG PO Twice daily July 11, 2024 1:00am September 02, 2024 9:37am FreeText[employer]: TAKE 1 CAPSULE BY MOUTH TWICE DAILY FOR 30 DAYS; Note: Source Status: Taking; Refills: 2; Qty: 60 Capsule; Provider: Hong Meza ( ) Start: 10-12-2022 take 1 capsule by mo uth twice daily Pregabalin 75 MG TAKE 1 CAPSULE BY MOUTH TWICE DAILY FOR 30 DAYS Oct, Active Start: 09-18-2022 take 1 capsule by mo uth every twelve hours Lyrica 75 MG 1 capsule Orally Twice a day for 30 days September, Active Start: 08-24-2022 take 1 capsule by mo uth every twelve hours Lyrica 50 MG 1 capsule Orally Twice a day for 30 days Aug, Active SITagliptin 100 mg oral tablet (20 sources) Dipeptidyl Peptidase 4 Inhibitor Start: 10-18-2023 End: 10-30-2023 take 1 tablet by mouth once daily Sitagliptin 25 mg tablet Discontinued 25 MG PO Daily October 18, 2023 12:00am October 30, 2023 7:22am Start: 05-28-2023 End: 07-21-2024 take 1 tablet by mouth once daily Sitagliptin Phosphate (Januvia) 100 mg tablet Discontinued 100 MG PO Daily November 26, 2023 10:26am January 10, 2024 11:25am Start: 11-28-2022 Januvia 100 mg Tab Refills(s) 0 Start Date: 02/26/23 Status: Ordered Problems Active Problems Problem Classification Problem Date Documented Da te Episodic/Chronic Acute myocardial infarction (20 sources) Myocardial infarction; Translations: [Non-ST elevation (NSTEMI) myocardial infarction] Onset: 2 03-17-2022 Chronic Bacterial infection; unspecified site (10 sources) Bacteremia caused by Gram-negative bacteria; Translations: [Bacteremia] 03-18-2022 Episodic Biliary tract disease (1 source) Calculus of gallbladder without cholecystitis without obstruction; Translations: [CALCU GB W/O CHOLECYST W/O OBST] Onset: 2 Episodic Chronic obstructive pulmonary disease and bronchiectasis (2 sources) Chronic obstructive lung disease; Translations: [Chronic obstructive pulmonary disease, unspecified] Onset: 5 Chronic Chronic ulcer of skin (15 sources) Ulcer of toe; Translations: [Non-pressure chronic ulcer of other part of right foot limited to breakdown of skin] Onset: 4 Chronic Complication of device; implant or graft (2 sources) Arteriosclerosis of coronary artery bypass graft; Translations: [Coronary atherosclerosis of artery bypass graft] Onset: 5 Chronic Coronary atherosclerosis and other heart disease (20 sources) Coronary arteriosclerosis; Translations: [Angina pectoris] Onset: 7 06-01-2022 Chronic Coronary atherosclerosis and other heart disease (20 sources) H/O cardiac surgery; 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] Onset: 5 03-17-2022 Episodic Comment on above: valve replacement Delirium, dementia, and amnestic and other cognitive disorders (2 sources) Dementia; Translations: [Unspecified dementia without behavioral disturbance] Chronic Diabetes mellitus with complications (20 sources) Hyperglycemia due to type 2 diabetes mellitus; Translations: [Type 2 diabetes mellitus with hyperglycemia] Chronic Diabetes mellitus without complication (20 sources) Diabetes mellitus; Translations: [Type 2 diabetes mellitus without complication] Onset: 5 02-27-2022 Chronic Diseases of white blood cells (10 sources) Leukocytosis; Translations: [Elevated white blood cell count, unspecified] Chronic Disorders of lipid metabolism (20 sources) Hyperlipidemia; Translations: [Hyperlipidemia, unspecified] Onset: 2 02-27-2022 Chronic Essential hypertension (20 sources) Hypertensive disorder; Translations: [Essential hypertension] Onset: 5 02-27-2022 Chronic Fever of unknown origin (10 sources) Fever, unspecified; Translations: [Fever] Onset: 2 Episodic Fluid and electrolyte disorders (6 sources) Dehydration; Translations: [Dehydration] 07-14-2024 Episodic Fracture of lower limb (8 sources) Closed fracture of upper end of tibia; Translations: [Displaced fracture of left tibial spine, initial encounter for closed fracture] Episodic Genitourinary symptoms and ill-defined conditions (1 source) Presence of urogenital implants; Translations: [PRESENCE OF UROGENITAL IMPLANTS] Onset: 2 Chronic Genitourinary symptoms and ill-defined conditions (20 sources) Calvin hematuria; Translations: [Blood in urine] Onset: 2 02-27-2022 Episodic Headache; including migraine (18 sources) Headache 02-27-2022 Episodic Heart valve disorders (12 sources) Aortic valve disorder; Translations: [Nonrheumatic aortic (valve) stenosis] Onset: 7 Chronic Hyperplasia of prostate (20 sources) Benign prostatic hypertrophy with outflow obstruction; Translations: [Benign prostatic hyperplasia with lower urinary tract symptoms] Onset: 2 Chronic Inflammatory conditions of male genital organs (18 sources) Chronic prostatitis; Translations: [Chronic prostatitis] Onset: 4 Chronic Inflammatory conditions of male genital organs (20 sources) Prostatitis; Translations: [Inflammatory disease of prostate, unspecified] Onset: 3 Episodic Influenza (8 sources) Influenza due to Influenza A virus; Translations: [Influenza due to other identified influenza virus with other respiratory manifestations] 06-25-2024 Episodic Mycoses (9 sources) Candidiasis; Translations: [Candidiasis, unspecified] Onset: 4 10-30-2023 Episodic Other aftercare (1 source) superintendent terminal (current) use of 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; Translations: [USP CURRNT USE ANTICOAGULANTS] Onset: 2 Episodic Other aftercare (1 source) Other fpc (current) drug therapy; Translations: [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 CURRENT DRUG THERAPY] Onset: 2 Episodic Other aftercare (1 source) detention (current) use of oral hypoglycemic drugs; Translations: [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 USE ORAL HYPOGLYCEMIC DX] Onset: 2 Episodic Other aftercare (9 sources) Long-term current use of anticoagulant; Translations: [superintendent terminal (current) use of 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] Onset: 3 Episodic Other and ill-defined heart disease (18 sources) Heart disease 02-27-2022 Chronic Other circulatory disease (9 sources) Low blood pressure; Translations: [Hypotension, unspecified] 03-17-2022 Episodic Other circulatory disease (3 sources) Hypotension, unspecified; Translations: [Hypotension, unspecified] 03-19-2022 Episodic Other connective tissue disease (1 source) Pain in right leg Episodic Other diseases of bladder and urethra (20 sources) Male urethral stricture; Translations: [Unspecified urethral stricture, male, unspecified site] Onset: 2 Episodic Other diseases of veins and lymphatics (2 sources) Lymphedema, not elsewhere classified; Translations: [Lymphedema, not elsewhere classified] Onset: 5 Chronic Other ear and sense organ disorders (19 sources) Hearing loss 02-27-2022 Chronic Other injuries and conditions due to external causes (2 sources) History of fall; Translations: [History of falling] Episodic Other injuries and conditions due to external causes (6 sources) Wound pain ; Translations: [Other injury of unspecified body region, initial encounter] 10-30-2023 Episodic Other injuries and conditions due to external causes (3 sources) Other injury of unspecified body region, initial encounter; Translations: [Open wound(s) (multiple) of unspecified site(s), without mention of complication] Onset: 4 11-08-2023 Episodic Other lower respiratory disease (2 sources) Hypoxia; Translations: [Hypoxemia] 07-14-2024 Episodic Other lower respiratory disease (1 source) Hypoxemia; Translations: [Hypoxemia] 07-11-2024 Episodic Other lower respiratory disease (1 source) Dyspnea; Translations: [Dyspnea, unspecified] 09-15-2024 Episodic Other male genital disorders (18 sources) Male erectile dysfunction, unspecified; Translations: [Erectile dysfunction] Onset: 4 Chronic Other male genital disorders (7 sources) Hydrocele of testis; Translations: [Hydrocele, unspecified] Onset: 4 Episodic Other male genital disorders (12 sources) Disorder of male genital organ 06-25-2023 Episodic Other nervous system disorders (2 sources) Metabolic encephalopathy; Translations: [Metabolic encephalopathy] 07-14-2024 Chronic Other nervous system disorders (1 source) Metabolic encephalopathy; Translations: [Metabolic encephalopathy] 07-11-2024 Chronic Other non-traumatic joint disorders (1 source) Pain in right hip Episodic Other nutritional; endocrine; and metabolic disorders (12 sources) Body mass index 25-29 - overweight; Translations: [Body mass index (BMI) 28.0-28.9, adult] Onset: 7 Episodic Peripheral and visceral atherosclerosis (4 sources) Intermittent claudication; Translations: [Peripheral vascular disease, unspecified] Onset: 4 Chronic Phlebitis; thrombophlebitis and thromboembolism (5 sources) Acute deep venous thrombosis of left upper extremity; Translations: [Acute embolism and thrombosis of deep veins of left upper extremity] Onset: 9 10-27-2024 Episodic Residual codes; unclassified (9 sources) Dependence on other enabling machines and devices; Translations: [Use of cane as ambulatory aid] Onset: 4 10-30-2023 Chronic Residual codes; unclassified (9 sources) Urinary catheter in situ; Translations: [Presence of other specified devices] 03-18-2022 Episodic Residual codes; unclassified (1 source) Presence of other specified devices; Translations: [Other postprocedural status] 03-19-2022 Episodic Residual codes; unclassified (1 source) Other specified postprocedural states; Translations: [Personal history of surgery to heart and great vessels, presenting hazards to health] 03-19-2022 Episodic Residual codes; unclassified (4 sources) Inflammatory disorder 10-30-2023 Episodic Residual codes; unclassified (2 sources) Edema of right lower limb; Translations: [Localized edema] 09-02-2024 Episodic Residual codes; unclassified (1 source) Localized edema; Translations: [Edema] 09-02-2024 Episodic Respiratory failure; insufficiency; arrest (adult) (1 source) Dependence on supplemental oxygen; Translations: [Dependence on supplemental oxygen] 09-11-2024 Chronic Septicemia (except in labor) (13 sources) Sepsis; Translations: [Sepsis, unspecified organism] Onset: 2 03-18-2022 Episodic Unclassified (1 source) CONTACT W/AND (SUSP) EXPOS COVID-19; Translations: [CONTACT W/AND (SUSP) EXPOS COVID-19] Onset: 2 Unclassified (17 sources) Drug therapy finding 06-05-2022 Unclassified (4 sources) Inflammatory disorder; Translations: [Inflammation] 10-30-2023 Urinary tract infections (15 sources) Acute urinary tract infection; Translations: [Urinary tract infection, site not specified] Onset: 2 03-18-2022 Episodic Past or Other Problems Problem Classification Problem Date Documented Da te Episodic/Chronic Cataract (3 sources) 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; Translations: [Combined forms of age-related cataract, left eye] Onset: 09-18-2021 Resolved: 09-19-2021 Chronic Nonspecific chest pain (2 sources) Chest pain; Translations: [Other chest pain] Onset: 03-03-2016 Episodic Other skin disorders (2 sources) Localized superficial swelling of skin; Translations: [Localized superficial swelling, mass, or lump] Onset: 06-17-2018 Episodic Results Test Name Value Interpretation Reference Range Facility Office Visiton 12-22-2024 Follow-up visit [id number] Bora Dan ry 1950 M Date Provider Department Center 12/22/2024 BLAS MCDANIEL RAVI Minaya [facility] Family History Problem Relation Age of Onset Diabetes Mother Heart attack Mother Diabetes Father Heart attack Father Breast cancer Sister Colon cancer Brother Cervical cancer Child Family Status - Relation Status Age at Mother Father Sister Brother Child Alive Level of Service:01118 ME OFFICE/OUTPATIENT ESTABLISHED LOW MDM 20 MIN Normal [facility] Orders Onlyon 12-05-2024 Orders Only [id number] Bora Dan ry 1950 M Date Provider Department Center 12/05/2024 [id number], HISTORICAL RAVI Christina Family History Problem Relation Age of Onset Diabetes Mother Heart attack Mother Diabetes Father Heart attack Father Breast cancer Sister Colon cancer Brother Cervical cancer Child Family Status - Relation Status Age at Mother Father Sister Brother Child Alive Normal [facility] Family Medicine Office/Clini c Noteon 10-27-2024 Family Medicine Office/Clinic Note Family Medicine Office/Clinic Note Chief Complaint The patient presents with respiratory issues requiring oxygen therapy. HPI Staff Marilu is a 74 year old male presenting with Establish Care: History: Any previous diagnosis: Diabetes History of seeing any specialist: Urology, Cardio When was your last doctors visit: Last provider: Mary Beth Pitts Any recent labs: June @ [facility] Health Maintenance UTD: Colonoscopy: never PSA: 12/01/21 (1.23) Swelling and both legs, pain in both feet, was crushed in Does not take any pain meds.... was instructed to keep his feet elevated and compression hose, but does not wear them because it cuts orf his circulation History of Present Illness - The patient is a 74-year-old male presenting with respiratory issues requiring oxygen therapy. - He has a history of acute bilateral deep vein thrombosis of the upper extremities following a traumatic injury, currently managed with Xarelto for coronary artery disease. - The patient has undergone coronary artery bypass grafting and aortic valve surgery for coronary artery disease. - He has type 2 diabetes mellitus, hyperlipidemia, and essential hypertension, all managed with medication. 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 - The patient is oxygen-dependent due to respiratory issues, requiring 2 liters of oxygen, especially at night or with exertion. - He remains active, engaging in gardening and other physical activities, but experiences shortness of breath with exertion. Review of Systems PHQ Score Initial Depression Screen Score: 0 SCORE Physical Exam Vitals & Measurements T: 36.2 ???C(Oral) HR: 73(Peripheral) RR: 20 BP: 118/72 SpO2: 97% HT: 166.0 cm HT: 65 in WT: 168.653 lb WT: 76.5 kg BMI: 27.76 General: alert, no acute distress ENMT: oral mucosa moist Cardiovascular: Regular rate and rhythm, normal peripheral perfusion Respiratory: Lungs with crackles at the bases, very diminished breath sounds, respirations non labored Extremities: no deformity, no trauma, history of DVTs Neurological: oriented x 4, level of consciousness appropriate for age, CN II-XII intact, motor strength equal & normal bilaterally, speech normal, noted forgetfulness Abdomen: Soft, Non-tender, Non-distended, + Bowel sounds Assessment/Plan 1. Diabetes (E11.9: Type 2 diabetes mellitus without complications) - Continue current medication regimen and monitor blood glucose levels regularly. Ordered: CBC w/ Auto Diff Comprehensive Metabolic Panel HgbA1c Lipid Panel Microalbumin Level Urine Urine Microalbumin/Creatinine Ratio 2. Hypertension (I10: Essential (primary) hypertension) - Continue current medication regimen and monitor blood pressure regularly. Ordered: CBC w/ Auto Diff Comprehensive Metabolic Panel HgbA1c Lipid Panel Microalbumin Level Urine Urine Microalbumin/Creatinine Ratio 3. Hyperlipidemia (E78.5: Hyperlipidemia, unspecified) - Continue current medication regimen and monitor lipid levels regularly. Ordered: CBC w/ Auto Diff Comprehensive Metabolic Panel HgbA1c Lipid Panel Microalbumin Level Urine Urine Microalbumin/Creatinine Ratio 4. CAD (coronary artery disease) (I25.10: Atherosclerotic heart disease of [place] coronary artery without angina pectoris) - Managed with Xarelto, and the patient has undergone coronary artery bypass grafting and aortic valve surgery. - Continue current management and monitor for any changes in symptoms. Ordered: CBC w/ Auto Diff Comprehensive Metabolic Panel HgbA1c Lipid Panel Microalbumin Level Urine Urine Microalbumin/Creatinine Ratio 5. Acute bilateral deep vein thrombosis (DVT) of upper extremities (I82.623: Acute embolism and thrombosis of deep veins of upper extremity, bilateral) - The patient is currently stable with no recent episodes of DVT. - Continue monitoring for any signs of recurrence. Ordered: CBC w/ Auto Diff Comprehensive Metabolic Panel HgbA1c Lipid Panel Microalbumin Level Urine Urine Microalbumin/Creatinine Ratio 6. Former smoker (Z87.891: Personal history of nicotine dependence) please continue not to smoke Ordered: CBC w/ Auto Diff Comprehensive Metabolic Panel HgbA1c Lipid Panel Microalbumin Level Urine Urine Microalbumin/Creatinine Ratio 7. BMI 27.0-27.9,adult (Z68.27: Body mass index [BMI] 27.0-27.9, adult) - BMI education added Ordered: CBC w/ Auto Diff Comprehensive Metabolic Panel HgbA1c Lipid Panel Microalbumin Level Urine Urine Microalbumin/Creatinine Ratio 8. Overweight (BMI 25.0-29.9) (E66.3: Overweight) - Diet and exercise advised Ordered: CBC w/ Auto Diff Comprehensive Metabolic Panel HgbA1c Lipid Panel Microalbumin Level Urine Urine Microalbumin/Creatinine Ratio 9. Personal history of other malignant neoplasm of skin (Z85.828) - Monitor for any signs of recurrence and (more content not included)... Normal [facility] Comment on above: Result Comment: Elec tronically Signed By: Delbert DIAZ, Ricco Pinedo\.br\Date and Time Signed: 10/27/24 15:11 EDT Urology Office/Clinic Noteon 10-01-2024 Urology Office/Clinic Note Urology Office/Clinic Note Chief Complaint 4 month f/u with PVR HPI Staff 74 year old male presenting with 4 month f/u w/ PVR Previous DX; Previous dx: epididymoorchitis, chronic prostatitis, BPH with obstruction/LUTS, hydrocele, ED, urethral stricture in male, AC PSA: 04/11/17 - 1.78 12/01/21 - 1.23 PVR (cc): 12/21/23 - 02/15/24 - 06/09/24 - 61 Flomax BID and Dutasteride 0.5mg qd Pt states that he has been drinking a lot more water and is urinating about every 2 hours even at night. Pt states that she saw some blood on his under wear last week but he states he has not seen any blood in his urine. Denies any pain. Does admit to intermittency and states he has been having some leakage. PVR today is 45ml. History of Present Illness Tests reviewed: reviewed [...] Physical Exam Vitals & Measurements T: 37 ???C(Temporal Artery) HR: 65(Peripheral) RR: 16 BP: 134/78 HT: 65 in HT: 166 cm WT: 80.2 kg WT: 176.811 lb BMI: 29.1 General Appearance: alert, no distress, well nourished, well developed male. Genitourinary: normal scrotum, normal testes, normal urethra, normal epididymis, normal vas deferens/spermatic cord. Mild L hydrocele. Assessment/Plan Pt here with his today. 1. BPH with obstruction/lower urinary tract symptoms (N40.1: Benign prostatic hyperplasia with lower urinary tract symptoms) PSA: 04/11/17 - 1.78 12/01/21 - 1.23 PVR (cc): 11/27/22 - 16 05/28/23 - 150 06/25/23 - 57 12/21/23 - 02/15/24 - 25 06/09/24 - 61 09/29/24 - 45 S/p Cysto/UD 07/18/22 - Bilobar obstruction, severe bladder trabeculations with open diverticuli. Taking Tamsulosin 0.8mg qAM and Dutasteride 0.5mg qPM. Voiding q2hrs during the day and night. Attributes this to increased fluid intake. Advised pt this helps prevent infections. -Cont Tamsulosin and Dutasteride wo changes. Pt to call for refills. 2. Gross hematuria (R31.0: Gross hematuria) S/p Cysto/UD 07/18/22 - No bladder tumors or stones. CT AP w con 10/04/23 [facility] - No renal stones or hydro. No mass noted. Pt's reports seeing blood in pt's underwear. Pt states he has not seen blood in his urine himself. UA today neg. -Cont sx monitoring and routine UAs. Pt knows to notify the office if he were to experience gross hematuria or clots. 3. Chronic prostatitis (N41.1: Chronic prostatitis) Rx'd Levaquin 500mg qd x10 days at prior OV. UA today negative for blood and infection. Denies any infections since last encounter. Pt has increased water intake since last visit. 4. Hydrocele (N43.3: Hydrocele, unspecified) CT AP wo con 10/09/23 [facility] - Bilateral hydroceles, L appears somewhat loculated. Cystic structure R inguinal region is nonspecific. PE today: mild L hydrocele (same as previously). states swelling has increased. Denies any pain or bother. 5. ED (erectile dysfunction) (N52.9: Male erectile dysfunction, unspecified) Has nitro tablets, contraindicated with ED meds. Previously recommended CLAUDIA or ICI but pt did not prefer these treatment options. [1] 6. Urethral stricture in male (N35.919: Unspecified urethral stricture, male, unspecified site) S/p Cysto/UD 03/14/22 (dilated to 28 Fr) and 07/18/22 (dilated to 16-30 Fr). [2] 7. 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 CABG x 4. AVR. Elevated risk for periop complications in the future. [3] Follow-up With When Contact Information NICOLE DIAZ, Cristo Frances, URL [facility] [address] [place] [address] [phone] Additional Instructions: 6 mos Patient Education Hematuria, Adult I, Opal Kessler, personally scribed for Dr. Rivera on 09/29/2024 10:25:32. . Problem List/Past Medical History Ongoing Anticoagulated BPH with obstruction/lower urinary tract symptoms CAD (coronary artery disease) Chronic prostatitis Diabetes ED (erectile dysfunction) Epididymoorchitis Gross hematuria Hard of hearing Headache Heart disease Hydrocele Hyperlipidemia Hypertension Myocardial infarction Prostatitis Urethral stricture in male Historical No qualifying data Procedure/Surgical History Cystoscopy (03 (more content not included)... Normal [facility] Comment on above: Result Comment: Elec tronically Signed By: Cristo RIVERA MD\.br\Date and Time Signed: 10/01/24 17:01 EDT\.br\Electronically Co-Signed By: Opal Kessler\.br\Date and Time Co-Signed: 09/29/24 10:29 EDT Ambulatory Visit Summaryon 0 09-29-2024 Ambulatory Visit Summary Ambulatory Visit Summary MARILU DAN SR :1950 Visit Date:09/29/2024 Ambulatory Visit Instructions Your Diagnosis BPH with obstruction/lower urinary tract symptoms Gross hematuria Chronic prostatitis Hydrocele ED (erectile dysfunction) Urethral stricture in [...] release) metoprolol (Metoprolol tartrate 50 mg Tab) pantoprazole (Pantoprazole [address] Tab) rivaroxaban (Xarelto 20 mg oral tablet) simvastatin (simvastatin 40 mg Tab) sitagliptin (Januvia 100 mg Tab) spironolactone (spironolactone 25 mg Tab) Procedures Performed Cystoscopy (07/18/2022), Cystourethroscopy with dilation of urethral stricture (03/14/2022), AVR - Aortic valve replacement, CABG x 4 - Coronary artery bypass grafts x 4, Cataract, Femoral artery. Discharge Vitals Temperature (Temporal Artery) 37 ???C Heart Rate (Peripheral) 65 Respiratory Rate 16 Blood Pressure 134/78 Height 166 cm Height 65 in Weight 80.2 kg Weight 176.811 lb BMI 29.1 What to do next Scheduled Follow-Up Appointments Sunday 9:30 AM EDT With: Cristo RIVERA MD Where: [facility] [address] [place] [address]- You Need to Schedule the Following Appointments Follow Up with Cristo RIVERA MD, URL When: Where: [facility] [address], [place] [address]- [phone] Medications What How Much When Instructions Unchanged dutasteride (dutasteride 0.5 mg Cap) 1 Capsules By Mouth Every day Unchanged tamsulosin (Flomax 0.4 mg Cap) 2 [...] prescribing physician if questions or concerns Unchanged pantoprazole (Pantoprazole [address] Tab) 1 Tablets Contact prescribing physician if questions or concerns Unchanged rivaroxaban (Xarelto 20 mg oral tablet) Contact prescribing physician if questions or concerns Unchanged simvastatin (simvastatin 40 mg Tab) Contact prescribing physician if questions or concerns Unchanged sitagliptin (Januvia 100 mg Tab) Contact prescribing physician if questions or concerns Unchanged spironolactone (spironolactone 25 mg Tab) Contact prescribing physician if questions or concerns Allergies doxycycline (Blisters beneath skin) penicillin (Anaphylaxis, [...] choosing us for your care. Education Materials Hematuria, Adult Hematuria is blood in the urine. Blood may be visible in the urine, or it may be identified with a test. This condition can be caused by infections of the bladder, urethra, kidney, or prostate. Other possible causes include: ??? Kidney stones. ??? Cancer of the urinary tract. ??? Too much calcium in the urine. ??? Conditions that are passed from parent to child (inherited conditions). ??? Exercise that requires a lot of energy. [...] blood in your urine, even if it is painless or the blood stops without treatment. Blood in the urine, when it happens and then stops and then happens again, can be a symptom of a very serious condition, including cancer. There is no pain in the initial sta (more content not included)... Normal [facility] Hemoglobin [Mass/volume] in Bloodon 09-15-2024 Hemoglobin (Bld) [Mass/Vol] 11.1 g/dL Low 14.0-18.0 [facility] 37on 07-18-2024 37 -Please call radiolo gy at [phone] to schedule testing (Ultrasound AJIT) to be done in 6 months- can be done same day of appointment -Start compression stockings, apply in the morning and remove at night Normal [facility] Follow-Upon 07-18-2024 Follow-Up [id number] Bora Dan 1950 M Date Provider Department Center 07/18/2024 503-MARSHALL LUONG HVCVASENDAlvaro [facility] Family History Problem Relation Age of Onset Diabetes Mother Heart attack Mother Diabetes Father Heart attack Father Breast cancer Sister Colon cancer Brother Cervical cancer Child Family Status - Relation Status Age at Mother Father Sister Brother Child Alive Level of Service:55256 ME OFFICE/OUTPATIENT ESTABLISHED MOD MDM 30 MIN Reason for Visit and Comments: Follow-up [046126] - PAD Normal [facility] 36on 07-17-2024 36 Regarding lab result s from 07/04/2024: MD Naomi Jackson MA Please tell him the blood testing was good, his cholesterol is low so I want him to reduce simvastatin to 20 mg daily. Spoke with Jamilah and made her aware. New RX for 20mg tablets sent into their pharmacy. She verbalized understanding. Normal [facility] Basophils Auto (Bld) [#/Vol] on 07-07-2024 Basophils (Bld) [#/Vol] Automated basophil count 0.0-0.1 [facility] Basophils/100 WBC Auto (Bld) on 07-07-2024 Basophils/100 WBC (Bld) Automated basophil % Low 0.2-2.0 [facility] Eosinophils/100 WBC Auto (Bl d)on 07-07-2024 Eosinophils/100 WBC (Bld) Automated eosinophil % Low 0.9-7.0 [facility] Erythrocyte distribution wid th Auto (RBC) [Ratio]on 07-07-2024 Erythrocyte distribution width (RBC) [Ratio] Erythrocyte distribution width [Ratio] by Automated count 11.0-15.0 [facility] Estimated glomerular filtrat ion rate (GFR) non- Americanon 07-07-2024 GFR/1.73 sq M.predicted among non-blacks MDRD (S/P/Bld) [Vol rate/Area] Estimated glomerular filtration rate (GFR) non- >=60 mL/min/1.7 3m 2 [facility] Globulin Calc (S) [Mass/Vol] on 07-07-2024 Globulin (S) [Mass/Vol] Serum globulin measurement by calculation (mass/volume) [facility] Hematocrit Auto (Bld) [Volum e fraction]on 07-07-2024 Hematocrit (Bld) [Volume fraction] Hematocrit [Volume Fraction] of Blood by Automated count Low 42.0-54.0 [facility] Hemoglobin [Mass/volume] in Bloodon 07-07-2024 Hemoglobin (Bld) [Mass/Vol] Hemoglobin [Mass/volume] in Blood Low 14.0-18.0 [facility] Laboratory - Chemistry and C hemistry - challengeon 07-07-2024 Albumin [Mass/Vol] 2.4 g/dL Low 3.4-5.0 [facility] ALP [Catalytic activity/Vol] 51 U/L 46-116 [facility] ALT [Catalytic activity/Vol] 8 U/L Low 16-63 [facility] AST [Catalytic activity/Vol] 13 U/L Low 15-37 [facility] Bilirubin [Mass/Vol] 0.5 mg/dL 0.2-1.0 [facility] Calcium [Mass/Vol] 8.7 mg/dL 8.5-10.1 [facility] Chloride [Moles/Vol] 104 mmol/L 98-107 [facility] CO2 [Moles/Vol] 25.9 mmol/L 21.0-32.0 [facility] Creatinine [Mass/Vol] 0.90 mg/dL 0.70-1.30 [facility] GFR/1.73 sq M.predicted MDRD (S/P/Bld) [Vol rate/Area] mL/min/{1.73_m2} >=60 mL/min/1.7 3m 2 [facility] Glucose [Mass/Vol] 152 mg/dL High 74-106 [facility] Potassium [Moles/Vol] 3.7 mmol/L 3.5-5.1 [facility] Protein [Mass/Vol] 5.5 g/dL Low 6.4-8.2 [facility] Sodium [Moles/Vol] 140 mmol/L 136-145 [facility] Urea nitrogen [Mass/Vol] 14.0 mg/dL 7.0-18.0 [facility] Urea nitrogen/Creatinine [Mass ratio] 15.6 mg/mg [facility] Laboratory - Hematology and Cell countson 07-07-2024 Immature granulocytes/100 WBC (Bld) 0.6 % High 0.0-0.5 [facility] Leukocytes [#/volume] correc seth for nucleated erythrocytes in Blood by Automated counon 07-07-2024 WBC corrected for nucl RBC Auto (Bld) [#/Vol] Leukocytes [#/volume] corrected for nucleated erythrocytes in Blood by Automated coun 4.0-11.0 [facility] Lymphocytes Auto (Bld) [#/Vo l]on 07-07-2024 Lymphocytes (Bld) [#/Vol] Lymphocytes [#/volume] in Blood by Automated count 1.2-3.8 [facility] Lymphocytes/100 WBC Auto (Bl d)on 07-07-2024 Lymphocytes/100 WBC (Bld) Lymphocytes/100 leukocytes in Blood by Automated count Low 20.5-60.0 [facility] MCH Auto (RBC) [Entitic mass ]on 07-07-2024 MCH (RBC) [Entitic mass] MCH [Entitic mass] by Automated count 25.9-34.0 [facility] MCHC Auto (RBC) [Mass/Vol]on 07-07-2024 MCHC (RBC) [Mass/Vol] MCHC [Mass/volume] by Automated count 29.9-35.2 [facility] MCV Auto (RBC) [Entitic vol] on 07-07-2024 MCV (RBC) [Entitic vol] MCV [Entitic volume] by Automated count 80.0-94.0 [facility] [facility] Monocytes Auto (Bld) [#/Vol] on 07-07-2024 Monocytes (Bld) [#/Vol] Automated blood monocyte count High 0.3-0.8 [facility] Monocytes/100 WBC Auto (Bld) on 07-07-2024 Monocytes/100 WBC (Bld) Automated monocyte % 1.7-12.0 [facility] Neutrophils Auto (Bld) [#/Vo l]on 07-07-2024 Neutrophils (Bld) [#/Vol] Neutrophils [#/volume] in Blood by Automated count High 1.4-6.5 [facility] Neutrophils/100 WBC Auto (Bl d)on 07-07-2024 Neutrophils/100 WBC (Bld) Automated neutrophil % 43.0-75.0 [facility] No Panel Informationon 07-07 Eosinophils # (Auto) 0.0 10 3/uL 0.0-0.7 [facility] Immature Granulocyte # (Auto) 0.06 10 3/uL High 0.00-0.03 [facility] Platelet mean volume Auto (B ld) [Entitic vol]on 07-07-2024 Platelet mean volume (Bld) [Entitic vol] Platelet mean volume [Entitic volume] in Blood by Automated count Low 9.5-13.5 [facility] Platelets Auto (Bld) [#/Vol] on 07-07-2024 Platelets (Bld) [#/Vol] Platelets [#/volume] in Blood by Automated count 150-450 [facility] RBC Auto (Bld) [#/Vol]on RBC (Bld) [#/Vol] Erythrocytes [#/volu me] in Blood by Automated count Low 4.70-6.10 [facility] Serum or plasma albumin/glob ulin mass ratioon 07-07-2024 Albumin/Globulin [Mass ratio] Serum or plasma albumin/globulin mass ratio [facility] Serum or plasma anion gap de terminationon 07-07-2024 Anion gap [Moles/Vol] Serum or plasma an ion gap determination [facility] Laboratory - Chemistry and C hemistry - challengeon 07-06-2024 Lactate [Moles/Vol] 2.6 mmol/L Critically high 0.4-2.0 [facility] Comment on above: RESULTS CALLED TO Morgan Welch (ER) @BY ORALIA Avelar at 0132 Basophils Auto (Bld) [#/Vol] on 07-05-2024 Basophils (Bld) [#/Vol] Automated basophil count 0.0-0.1 [facility] Basophils/100 WBC Auto (Bld) on 07-05-2024 Basophils/100 WBC (Bld) Automated basophil % Low 0.2-2.0 [facility] Eosinophils/100 WBC Auto (Bl d)on 07-05-2024 Eosinophils/100 WBC (Bld) Automated eosinophil % Low 0.9-7.0 [facility] Erythrocyte distribution wid th Auto (RBC) [Ratio]on 07-05-2024 Erythrocyte distribution width (RBC) [Ratio] Erythrocyte distribution width [Ratio] by Automated count 11.0-15.0 [facility] Estimated glomerular filtrat ion rate (GFR) non- Americanon 07-05-2024 GFR/1.73 sq M.predicted among non-blacks MDRD (S/P/Bld) [Vol rate/Area] Estimated glomerular filtration rate (GFR) non- >=60 mL/min/1.7 3m 2 [facility] Hematocrit Auto (Bld) [Volum e fraction]on 07-05-2024 Hematocrit (Bld) [Volume fraction] Hematocrit [Volume Fraction] of Blood by Automated count Low 42.0-54.0 [facility] Hemoglobin [Mass/volume] in Bloodon 07-05-2024 Hemoglobin (Bld) [Mass/Vol] Hemoglobin [Mass/volume] in Blood Low 14.0-18.0 [facility] INR in Platelet poor plasma by Coagulation assayon 07-05-2024 INR Coag (PPP) [Relative time] INR in Platelet poor plasma by Coagulation assay [facility] Comment on above: DESIRED INR:2.0-3.0 CONDITIONS NOT LISTED BELOW2.5-3.5 FOR PROSTHETIC HEART VALVE REPLACEMENT2.5-3.5 RECURRENT THROMBOSIS Laboratory - Chemistry and C hemistry - challengeon 07-05-2024 HCO3 (Bld) [Moles/Vol] 24.4 mmol/L 22.0-26.0 [facility] Calcium [Mass/Vol] 8.5 mg/dL 8.5-10.1 [facility] Chloride [Moles/Vol] 98 mmol/L 98-107 [facility] CO2 [Moles/Vol] 25.6 mmol/L 21.0-32.0 [facility] Creatinine [Mass/Vol] 1.02 mg/dL 0.70-1.30 [facility] GFR/1.73 sq M.predicted MDRD (S/P/Bld) [Vol rate/Area] mL/min/{1.73_m2} >=60 mL/min/1.7 3m 2 [facility] Glucose [Mass/Vol] 248 mg/dL High 74-106 [facility] Lactate [Moles/Vol] 2.4 mmol/L Critically high 0.4-2.0 [facility] Comment on above: RESULTS CALLED TO Nik GARNER (ER)@BY QING DENISE, PLASTIC WORKER [id number] Potassium [Moles/Vol] 4.1 mmol/L 3.5-5.1 [facility] Sodium [Moles/Vol] 131 mmol/L Low 136-145 [facility] Urea nitrogen [Mass/Vol] 18.0 mg/dL 7.0-18.0 [facility] Urea nitrogen/Creatinine [Mass ratio] 17.6 mg/mg [facility] Laboratory - Hematology and Cell countson 07-05-2024 Immature granulocytes/100 WBC (Bld) 0.5 % 0.0-0.5 [facility] Laboratory - Urinalysison Hyaline casts LM Ql (Urine sed) FEW [facility] Mucus Ql (Urine sed) MODERATE Abnormal NONE SEEN [facility] Leukocytes [#/volume] correc seth for nucleated erythrocytes in Blood by Automated counon 07-05-2024 WBC corrected for nucl RBC Auto (Bld) [#/Vol] Leukocytes [#/volume] corrected for nucleated erythrocytes in Blood by Automated coun 4.0-11.0 [facility] Lymphocytes Auto (Bld) [#/Vo l]on 07-05-2024 Lymphocytes (Bld) [#/Vol] Lymphocytes [#/volume] in Blood by Automated count 1.2-3.8 [facility] Lymphocytes/100 WBC Auto (Bl d)on 07-05-2024 Lymphocytes/100 WBC (Bld) Lymphocytes/100 leukocytes in Blood by Automated count Low 20.5-60.0 [facility] MCH Auto (RBC) [Entitic mass ]on 07-05-2024 MCH (RBC) [Entitic mass] MCH [Entitic mass] by Automated count 25.9-34.0 [facility] MCHC Auto (RBC) [Mass/Vol]on 07-05-2024 MCHC (RBC) [Mass/Vol] MCHC [Mass/volume] by Automated count 29.9-35.2 [facility] MCV Auto (RBC) [Entitic vol] on 07-05-2024 MCV (RBC) [Entitic vol] MCV [Entitic volume] by Automated count 80.0-94.0 [facility] Monocytes Auto (Bld) [#/Vol] on 07-05-2024 Monocytes (Bld) [#/Vol] Automated blood monocyte count High 0.3-0.8 [facility] Monocytes/100 WBC Auto (Bld) on 07-05-2024 Monocytes/100 WBC (Bld) Automated monocyte % 1.7-12.0 [facility] Neutrophils Auto (Bld) [#/Vo l]on 07-05-2024 Neutrophils (Bld) [#/Vol] Neutrophils [#/volume] in Blood by Automated count High 1.4-6.5 [facility] Neutrophils/100 WBC Auto (Bl d)on 07-05-2024 Neutrophils/100 WBC (Bld) Automated neutrophil % 43.0-75.0 [facility] No Panel Informationon 07-05 Urine Bacteria NONE SEEN #/HPF NONE SEEN [facility] Urine Culture Reflexed NO [facility] Urine Other Casts SEEN #/LPF Abnormal NONE SEEN [facility] Urine Other Crystals None Seen #/HPF None Seen [facility] Urine RBC 20-50 #/HPF Abnormal 0-2 [facility] Urine Squamous Epithelial Cells MODERATE #/LPF Abnormal NONE/RARE [facility] Urine WBC NONE SEEN #/HPF NONE SEEN [facility] Lonnie Test Positive POSITIVE [facility] Arterial Blood Base Excess -0.3 mmol/L <2.0-2.0 [facility] Arterial Blood Oxygen Saturation 92.4 % [facility] Arterial Blood Partial Pressure CO2 38.5 mm[Hg] 35.0-45.0 [facility] Arterial Blood Partial Pressure O2 62.6 mm[Hg] Low 80.0-100.0 [facility] Arterial Blood pH 7.410 7.350-7.45 0 [facility] Blood Gas Sample Site R RADIAL [facility] Oxygen Delivery Device ROOM AIR [facility] Eosinophils # (Auto) 0.0 10 3/uL 0.0-0.7 [facility] Ethyl Alcohol Level <3 mg/dL [facility] Comment on above: NOTE: 80 mg/dl is th e legal limit for a blood alcohol level Immature Granulocyte # (Auto) 0.05 10 3/uL High 0.00-0.03 [facility] Platelet mean volume Auto (B ld) [Entitic vol]on 07-05-2024 Platelet mean volume (Bld) [Entitic vol] Platelet mean volume [Entitic volume] in Blood by Automated count Low 9.5-13.5 [facility] Platelets Auto (Bld) [#/Vol] on 07-05-2024 Platelets (Bld) [#/Vol] Platelets [#/volume] in Blood by Automated count 150-450 [facility] Prothrombin time (PT)on 06-15 PT Coag (PPP) [Time] Prothrombin time (PT) High 9.0- 11.6 [facility] RBC Auto (Bld) [#/Vol]on RBC (Bld) [#/Vol] Erythrocytes [#/volu me] in Blood by Automated count Low 4.70-6.10 [facility] Serum or plasma anion gap de terminationon 07-05-2024 Anion gap [Moles/Vol] Serum or plasma an ion gap determination [facility] Basophils Auto (Bld) [#/Vol] on 07-04-2024 Basophils (Bld) [#/Vol] Automated basophil count 0.0-0.1 [facility] Basophils/100 WBC Auto (Bld) on 07-04-2024 Basophils/100 WBC (Bld) Automated basophil % Low 0.2-2.0 [facility] Cholesterol in LDL Calc [Mas s/Vol]on 07-04-2024 Cholesterol in LDL [Mass/Vol] Cholesterol in LDL [Mass/volume] in Serum or Plasma by calculation [facility] Comment on above: <100 mg/dl [id number] 0-129 mg/dl NEAR OR ABOVE [id number] mg/dl BORDERLINE DORY112-317 mg/dl HIGH>190 mg/dl VERY HIGH Cholesterol in VLDL Calc [Ma ss/Vol]on 07-04-2024 Cholesterol in VLDL [Mass/Vol] Cholesterol in VLDL [Mass/volume] in Serum or Plasma by calculation [facility] Eosinophils/100 WBC Auto (Bl d)on 07-04-2024 Eosinophils/100 WBC (Bld) Automated eosinophil % Low 0.9-7.0 [facility] Erythrocyte distribution wid th Auto (RBC) [Ratio]on 07-04-2024 Erythrocyte distribution width (RBC) [Ratio] Erythrocyte distribution width [Ratio] by Automated count 11.0-15.0 [facility] Estimated glomerular filtrat ion rate (GFR) non- Americanon 07-04-2024 GFR/1.73 sq M.predicted among non-blacks MDRD (S/P/Bld) [Vol rate/Area] Estimated glomerular filtration rate (GFR) non- >=60 mL/min/1.7 3m 2 [facility] Globulin Calc (S) [Mass/Vol] on 07-04-2024 Globulin (S) [Mass/Vol] Serum globulin measurement by calculation (mass/volume) [facility] Hematocrit Auto (Bld) [Volum e fraction]on 07-04-2024 Hematocrit (Bld) [Volume fraction] Hematocrit [Volume Fraction] of Blood by Automated count Low 42.0-54.0 [facility] Hemoglobin [Mass/volume] in Bloodon 07-04-2024 Hemoglobin (Bld) [Mass/Vol] Hemoglobin [Mass/volume] in Blood Low 14.0-18.0 [facility] Laboratory - Chemistry and C hemistry - challengeon 07-04-2024 Albumin [Mass/Vol] 3.0 g/dL Low 3.4-5.0 [facility] ALP [Catalytic activity/Vol] 65 U/L 46-116 [facility] ALT [Catalytic activity/Vol] 16 U/L 16-63 [facility] AST [Catalytic activity/Vol] 11 U/L Low 15-37 [facility] Bilirubin [Mass/Vol] 0.6 mg/dL 0.2-1.0 [facility] Calcium [Mass/Vol] 9.5 mg/dL 8.5-10.1 [facility] Chloride [Moles/Vol] 98 mmol/L 98-107 [facility] Cholesterol [Mass/Vol] 76 mg/dL <=200 [facility] Cholesterol in HDL [Mass/Vol] 43 mg/dL 40-60 [facility] Comment on above: > or =60 mg/dl - LOW CARDIOVASCULAR RISK<40 mg/dl - HIGH CARDIOVASCULAR RISK CO2 [Moles/Vol] 30.7 mmol/L 21.0-32.0 [facility] Creatinine [Mass/Vol] 1.00 mg/dL 0.70-1.30 [facility] GFR/1.73 sq M.predicted MDRD (S/P/Bld) [Vol rate/Area] mL/min/{1.73_m2} >=60 mL/min/1.7 3m 2 [facility] Glucose [Mass/Vol] 216 mg/dL High 74-106 [facility] Potassium [Moles/Vol] 4.5 mmol/L 3.5-5.1 [facility] Protein [Mass/Vol] 7.0 g/dL 6.4-8.2 [facility] Sodium [Moles/Vol] 134 mmol/L Low 136-145 [facility] Triglyceride [Mass/Vol] 77 mg/dL <=150 [facility] Urea nitrogen [Mass/Vol] 22.0 mg/dL High 7.0-18.0 [facility] Urea nitrogen/Creatinine [Mass ratio] 22.0 mg/mg [facility] Laboratory - Hematology and Cell countson 07-04-2024 Immature granulocytes/100 WBC (Bld) 0.7 % High 0.0-0.5 [facility] Leukocytes [#/volume] correc seth for nucleated erythrocytes in Blood by Automated counon 07-04-2024 WBC corrected for nucl RBC Auto (Bld) [#/Vol] Leukocytes [#/volume] corrected for nucleated erythrocytes in Blood by Automated coun 4.0-11.0 [facility] Lymphocytes Auto (Bld) [#/Vo l]on 07-04-2024 Lymphocytes (Bld) [#/Vol] Lymphocytes [#/volume] in Blood by Automated count 1.2-3.8 [facility] Lymphocytes/100 WBC Auto (Bl d)on 07-04-2024 Lymphocytes/100 WBC (Bld) Lymphocytes/100 leukocytes in Blood by Automated count Low 20.5-60.0 [facility] MCH Auto (RBC) [Entitic mass ]on 07-04-2024 MCH (RBC) [Entitic mass] MCH [Entitic mass] by Automated count 25.9-34.0 [facility] MCHC Auto (RBC) [Mass/Vol]on 07-04-2024 MCHC (RBC) [Mass/Vol] MCHC [Mass/volume] by Automated count 29.9-35.2 [facility] MCV Auto (RBC) [Entitic vol] on 07-04-2024 MCV (RBC) [Entitic vol] MCV [Entitic volume] by Automated count 80.0-94.0 [facility] Monocytes Auto (Bld) [#/Vol] on 07-04-2024 Monocytes (Bld) [#/Vol] Automated blood monocyte count High 0.3-0.8 [facility] Monocytes/100 WBC Auto (Bld) on 07-04-2024 Monocytes/100 WBC (Bld) Automated monocyte % 1.7-12.0 [facility] Neutrophils Auto (Bld) [#/Vo l]on 07-04-2024 Neutrophils (Bld) [#/Vol] Neutrophils [#/volume] in Blood by Automated count High 1.4-6.5 [facility] Neutrophils/100 WBC Auto (Bl d)on 07-04-2024 Neutrophils/100 WBC (Bld) Automated neutrophil % 43.0-75.0 [facility] No Panel Informationon 07-04 Eosinophils # (Auto) 0.1 10 3/uL 0.0-0.7 [facility] Immature Granulocyte # (Auto) 0.08 10 3/uL High 0.00-0.03 [facility] Platelet mean volume Auto (B ld) [Entitic vol]on 07-04-2024 Platelet mean volume (Bld) [Entitic vol] Platelet mean volume [Entitic volume] in Blood by Automated count Low 9.5-13.5 [facility] Platelets Auto (Bld) [#/Vol] on 07-04-2024 Platelets (Bld) [#/Vol] Platelets [#/volume] in Blood by Automated count 150-450 [facility] RBC Auto (Bld) [#/Vol]on RBC (Bld) [#/Vol] Erythrocytes [#/volu me] in Blood by Automated count Low 4.70-6.10 [facility] Serum or plasma albumin/glob ulin mass ratioon 07-04-2024 Albumin/Globulin [Mass ratio] Serum or plasma albumin/globulin mass ratio [facility] Serum or plasma anion gap de terminationon 07-04-2024 Anion gap [Moles/Vol] Serum or plasma an ion gap determination [facility] Serum or plasma total choles terol/high density lipoprotein (HDL) cholesterol mass kendall 07-04-2024 Cholesterol.total/Chol esterol in HDL [Mass ratio] Serum or plasma total cholesterol/high density lipoprotein (HDL) cholesterol mass rat [facility] Comment on above: 3.3 - 4.4 LOW RISK4. 4 - 7.1 AVERAGE RISK7.1 - 11.0 MODERATE RISK>11.0 HIGH RISK Office Visiton 07-03-2024 Follow-up visit [id number] Bora Dan 1950 M Date Provider Department Center 07/03/2024 BLAS MCDANIEL RAVI Christina Family History Problem Relation Age of Onset Diabetes Mother Heart attack Mother Diabetes Father Heart attack Father Breast cancer Sister Colon cancer Brother Cervical cancer Child Family Status - Relation Status Age at Mother Father Sister Brother Child Alive Level of Service:10465 ME OFFICE/OUTPATIENT ESTABLISHED MOD MDM 30 MIN Normal [facility] Influenza virus B Ag [Presen ce] in Upper respiratory specimen by Rapid immunoassayon 06-25-2024 FLUBV Ag IA.rapid Ql (Nph) Influenza virus B Ag [Presence] in Upper respiratory specimen by Rapid immunoassay [facility] No Panel Informationon 06-25 Influenza Type A (Rapid) Positive [facility] POC SARS CoV-2 Antigen Negative [facility] 36on 06-12-2024 34 Spoke with Marilu abo ut his appt Friday 06/16 he did not complete his testing. Patient voiced that he is not coming Sunday and that he does not need appts. Left appointment on schedule just in case that he shows up. Patient denied to reschedule and schedule US. Normal [facility] Urology Office/Clinic Noteon 06-09-2024 Urology Office/Clinic [...] hydrocele only. CT AP wo con 10/09/23 [facility] - Bilateral hydroceles, L appears somewhat loculated. [...] to 16-30 Fr). [1] 6. Anticoagulated (Z79.01: detention (current) use of 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) On Xarelto. CABG x 4. AVR. Elevated risk for periop complications in the future. [2] Follow-up With When Contact Information NICOLE DIAZ, Cristo Frances, URL [facility] [address], [place] [address] [phone] Additional Instructions: 4 mos w/ PVR Patient Education Prostatitis I, Opal Kessler, personally scribed for Dr. Rivera on 06/09/2024 11:14:10. . Documentation recorded by the scribe, Opal Kessler, accurately reflects the services(s) I performed and decisions made by me. Authenticated by Dr. Rivera on 06/09/2024 11:16:12. Problem List/Past Medical History Ongoing Anticoagulated BPH with obstruction/lower urinary tra (more content not included)... Normal [facility] Comment on above: Result Comment: [...] Locations R1: [facility], [address] [place] [address], [address] , [place], [facility] Comment on above: Performed By: #### [id number] #### [facility] [address] [place] [address] [place] [address] C Urineon 02-17-2024 Bacteria identified Cx Nom (U) Microbiology PROCEDURE: Urine Culture [R1] SOURCE: U Random BODY SITE: COLLECTED DATE/TIME: 02/15/2024 12:55 EDT RECEIVED DATE/TIME: 02/15/2024 18:09 EDT START DATE/TIME: 02/15/2024 18:09 EDT FREE TEXT SOURCE: NICOLE DIAZ, Cristo RIVERA MD, Cristo Frances FINAL REPORTS Final Report [] Verified Date/Time: 02/17/2024 09:57 EDT >100,000 cfu/ml Enterobacter cloacae SUSCEPTIBILITY RESULTS __ LEGEND: S=Susceptible, N/R=Not Reported, Blank=Data not available, [...] test was performed at: [facility], [address] [place] [address], [address]- , [place], Normal [facility] Comment on above: Performed By: #### [id number] #### [facility] [address] [place] [id number] Urology Office/Clinic Noteon 02-15-2024 Urology Office/Clinic Note [...] lying in bed for 8 days. [place] [facility] [place] and was given antifungal powder [...] hydrocele only. CT AP wo con 10/09/23 [facility] - Bilateral hydroceles, L appears somewhat loculated. Cystic structure R inguinal region is nonspecific. 5. ED (erectile dysfunction) (N52.9: Male erectile dysfunction, unspecified) Has nitro tablets, contraindicated with ED meds. Previously recommended CLAUDIA or ICI but (more content not included)... Normal [facility] Comment on above: Result Comment: Elec tronically Signed By: Cristo RIVERA MD\.br\Date and Time Signed: 02/15/24 09:55 EDT\.br\Electronically Co-Signed By: Carmen Crain\Date and Time Co-Signed: 02/15/24 09:47 EDT Follow-Upon 12-24-2023 Follow-Up [id number] Bora Dan 1950 M Date Provider Department Center 12/24/2023 Adrien-MARSHALL LUONG HVCVASENDO [facility] Family History Problem Relation Age of Onset Diabetes Mother Heart attack Mother Diabetes Father Heart attack Father Breast cancer Sister Colon cancer Brother Cervical cancer Child Family Status - Relation Status Age at Mother Father Sister Brother Child Alive Level of Service:39186 ME OFFICE/OUTPATIENT ESTABLISHED LOW MDM 20 MIN Normal [facility] Ambulatory Visit Summaryon 0 12-21-2023 Ambulatory [...] With: Cristo RIVERA MD Where: [facility] [address] [place] [address] [place] [address]- You Need to Schedule the Following Appointments Follow Up with NICOLE DIAZ, GLORIA Gupta When: Where: [facility] [place] [address]- Medications What How Much When Instructions New [...] questions or concerns Pharmacy Information [facility]: [address] [place], [place] [id number] [phone] Allergies doxycycline (Blisters beneath skin) penicillin (Anaphylaxis, [...] infections ( (more content not included)... Normal [facility] Urology Office/Clinic Noteon 12-21-2023 Urology Office/Clinic [...] lying in bed for 8 days. [place] [facility] [place] [facility] and was given antifungal powder [...] hydroceles, R>>L. CT AP wo con 10/09/23 [facility] - Bilateral hydroceles, L appears somewhat loculated. [...] to 16-30 Fr). [1] 7. 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 Had aortic valve replacement. Elevated risk for periop complications in the future. [2] Follow-up With When Contact Information Cristo RIVERA MD, URL [id number] [facility] [place] [address]- Additional Instructions: 2 mos w/ PVR Patient Education Orchitis Epid (more content not included)... Normal [facility] Comment on above: Result Comment: Elec tronically Signed By: Cristo RIVERA MD\.br\Date and Time Signed: 12/21/23 08:31 EDT\.br\Electronically Co-Signed By: Carmen Crain\Date and Time Co-Signed: 12/21/23 08:29 EDT Basophils Auto (Bld) [#/Vol] on 11-23-2023 Basophils (Bld) [#/Vol] 0.0 10 3/uL 0.0-0.1 [facility] Basophils/100 WBC Auto (Bld) on 11-23-2023 Basophils/100 WBC (Bld) 0.1 % Low 0.2-2.0 [facility] Eosinophils/100 WBC Auto (Bl d)on 11-23-2023 Eosinophils/100 WBC (Bld) 0.8 % Low 0.9-7.0 [facility] Erythrocyte distribution wid th Auto (RBC) [Ratio]on 11-23-2023 Erythrocyte distribution width (RBC) [Ratio] 14.2 % 11.0-15.0 [facility] Estimated glomerular filtrat ion rate (GFR) non- Americanon 11-23-2023 GFR/1.73 sq M.predicted among non-blacks MDRD (S/P/Bld) [Vol rate/Area] mL/min/{1.73_m2} >=60 [facility] Globulin Calc (S) [Mass/Vol] on 11-23-2023 Globulin (S) [Mass/Vol] 4.2 g/dL [facility] Hematocrit Auto (Bld) [Volum e fraction]on 11-23-2023 Hematocrit (Bld) [Volume fraction] 34.1 % Low 42.0-54.0 [facility] Hemoglobin [Mass/volume] in Bloodon 11-23-2023 Hemoglobin (Bld) [Mass/Vol] 10.6 g/dL Low 14.0-18.0 [facility] Laboratory - Chemistry and C hemistry - challengeon 11-23-2023 Albumin [Mass/Vol] 3.1 g/dL Low 3.4-5.0 [facility] ALP [Catalytic activity/Vol] 77 U/L 46-116 [facility] ALT [Catalytic activity/Vol] 18 U/L 16-63 [facility] AST [Catalytic activity/Vol] 10 U/L Low 15-37 [facility] Bilirubin [Mass/Vol] 0.4 mg/dL 0.2-1.0 [facility] Calcium [Mass/Vol] 9.0 mg/dL 8.5-10.1 [facility] Chloride [Moles/Vol] 101 mmol/L 98-107 [facility] CO2 [Moles/Vol] 26.0 mmol/L 21.0-32.0 [facility] Creatinine [Mass/Vol] 1.07 mg/dL 0.70-1.30 [facility] GFR/1.73 sq M.predicted MDRD (S/P/Bld) [Vol rate/Area] mL/min/{1.73_m2} >=60 [facility] Glucose [Mass/Vol] 174 mg/dL High 74-106 [facility] Potassium [Moles/Vol] 4.4 mmol/L 3.5-5.1 [facility] Protein [Mass/Vol] 7.3 g/dL 6.4-8.2 [facility] Sodium [Moles/Vol] 135 mmol/L Low 136-145 [facility] Urea nitrogen [Mass/Vol] 22.0 mg/dL High 7.0-18.0 [facility] Urea nitrogen/Creatinine [Mass ratio] 20.6 mg/mg [facility] Laboratory - Hematology and Cell countson 11-23-2023 Immature granulocytes/100 WBC (Bld) 0.2 % 0.0-0.5 [facility] Leukocytes [#/volume] correc seth for nucleated erythrocytes in Blood by Automated counon 11-23-2023 WBC corrected for nucl RBC Auto (Bld) [#/Vol] 8.3 10 3/uL 4.0-11.0 [facility] Lymphocytes Auto (Bld) [#/Vo l]on 11-23-2023 Lymphocytes (Bld) [#/Vol] 2.1 10 3/uL 1.2-3.8 [facility] Lymphocytes/100 WBC Auto (Bl d)on 11-23-2023 Lymphocytes/100 WBC (Bld) 25.3 % 20.5-60.0 [facility] MCH Auto (RBC) [Entitic mass ]on 11-23-2023 MCH (RBC) [Entitic mass] 27.6 pg 25.9-34.0 [facility] MCHC Auto (RBC) [Mass/Vol]on 11-23-2023 MCHC (RBC) [Mass/Vol] 31.1 g/dL 29.9-35.2 [facility] MCV Auto (RBC) [Entitic vol] on 11-23-2023 MCV (RBC) [Entitic vol] 88.8 fL 80.0-94.0 [facility] Monocytes Auto (Bld) [#/Vol] on 11-23-2023 Monocytes (Bld) [#/Vol] 0.7 10 3/uL 0.3-0.8 [facility] Monocytes/100 WBC Auto (Bld) on 11-23-2023 Monocytes/100 WBC (Bld) 8.5 % 1.7-12.0 [facility] Neutrophils Auto (Bld) [#/Vo l]on 11-23-2023 Neutrophils (Bld) [#/Vol] 5.4 10 3/uL 1.4-6.5 [facility] Neutrophils/100 WBC Auto (Bl d)on 11-23-2023 Neutrophils/100 WBC (Bld) 65.1 % 43.0-75.0 [facility] No Panel Informationon 11-22 Eosinophils # (Auto) 0.1 10 3/uL 0.0-0.7 [facility] Immature Granulocyte # (Auto) 0.02 10 3/uL 0.00-0.03 [facility] Platelet mean volume Auto (B ld) [Entitic vol]on 11-23-2023 Platelet mean volume (Bld) [Entitic vol] 9.8 fL 9.5-13.5 [facility] Platelets Auto (Bld) [#/Vol] on 11-23-2023 Platelets (Bld) [#/Vol] 235 10 3/uL 150-450 [facility] RBC Auto (Bld) [#/Vol]on RBC (Bld) [#/Vol] 3.84 10 6/uL Low 4.70-6.10 [facility] Serum or plasma albumin/glob ulin mass ratioon 11-23-2023 Albumin/Globulin [Mass ratio] 0.7 {ratio} [facility] Serum or plasma anion gap de terminationon 11-23-2023 Anion gap [Moles/Vol] 12.4 mmol/L [facility] Ambulatory Visit Summaryon 0 11-19-2023 Ambulatory Visit [...] DIAZ, Cristo Frances Where: [facility] Urology Office/Clinic Noteon 11-19-2023 Urology Office/Clinic Note Urology Office/Clinic Note Chief Complaint f/u to Hydrocele HPI Staff 5 month f/u. Dx: hydrocele, ED, chronic prostatitis, BPH with obstruction/LUTS, urethral stricture in male, AC. *Tamsulosin 0.8mg qd and Dutasteride 0.5mg qd (needs refill of Tamsulosin) Last PSA 12/01/[address] - [address] AP w con done 10/04/23 (ordered by ER doc) at [facility]. UCx 10/04/23 - >100k Pseudomonas aeruginosa and >100k Klebsiella oxytoca. Given vancomycin. UCx 10/26/23 - 30-40k Sally albicans. CT AP wo con done 10/09/23 at [facility] (ordered due to PREM and continued septic [...] lying in bed for 8 days. Saw [facility] [place] [facility] and was given antifungal powder [...] hydroceles, R>>L. CT AP wo con 10/09/23 [facility] - Bilateral hydroceles, L appears somewhat loculated. [...] to 16-30 Fr). [1] 7. Anticoagulated (Z79.01: detention (current) use of 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) On Xarelto. Had aortic valve replacement. Elevated risk for periop complications in the future. [2] Follow-up With When Contact Information NICOLE DIAZ, Cristo Frances, URL [facility] [address], [place] [address] [phone] Additional Instructions: 1 month (no labs) Patient Education Epididymitis Orchitis I, Opal Kessler, personally scribed for Dr. Rivera on 11/19/2023 09:43:41. . (more content not included)... Normal [facility] Comment on above: Result Comment: Elec tronically Signed By: Cristo RIVERA MD\.br\Date and Time Signed: 11/19/23 09:45 EDT\.br\Electronically Co-Signed By: Opal Kessler\Brookbr\Date and Time Co-Signed: 11/19/23 09:[address] - CT Reporton 10-30-2023 RAD - CT Report [id number]#[id number] Normal [facility] Lab Reportson 10-29-2023 Lab Reports [id number]#1.00TIFF Normal [facility] Lab Reports [id number]#[id number] Normal [facility] Lab Reports [id number]#[id number] Normal [facility] Laboratory - Microbiology an d Antimicrobial susceptibilityOrdered By: Cristo Rivera on 10-26-2023 Bacteria identified Cx Nom (U) [facility] Physician Referralon 024 Physician Referral [id number]#[id number] Normal [facility] Basophils/100 WBC Manual cnt (Bld)on 10-05-2023 Basophils/100 WBC (Bld) 0.0 % Low 0.2-2.0 [facility] Eosinophils/100 WBC Manual c nt (Bld)on 10-05-2023 Eosinophils/100 WBC (Bld) 0.0 % Low 0.9-7.0 [facility] Erythrocyte distribution wid th Auto (RBC) [Ratio]on 10-05-2023 Erythrocyte distribution width (RBC) [Ratio] 12.8 % 11.0-15.0 [facility] Estimated glomerular filtrat ion rate (GFR) non- Americanon 10-05-2023 GFR/1.73 sq M.predicted among non-blacks MDRD (S/P/Bld) [Vol rate/Area] 32 mL/min/{1.73_m2} Low >=60 [facility] Globulin Calc (S) [Mass/Vol] on 10-05-2023 Globulin (S) [Mass/Vol] 3.3 g/dL [facility] Hematocrit Auto (Bld) [Volum e fraction]on 10-05-2023 Hematocrit (Bld) [Volume fraction] 28.8 % Low 42.0-54.0 [facility] Hemoglobin [Mass/volume] in Bloodon 10-05-2023 Hemoglobin (Bld) [Mass/Vol] 9.0 g/dL Low 14.0-18.0 [facility] Lab Reportson 10-05-2023 Lab Reports [id number]#[id number] Normal [facility] Laboratory - Chemistry and C hemistry - challengeon 10-05-2023 HCO3 (Bld) [Moles/Vol] 9.1 mmol/L Low 22.0-26.0 [facility] Natriuretic peptide B (Bld) [Mass/Vol] 02100.0 pg/mL High <=1800.0 [facility] Comment on above: RESULTS CALLED TO [Zulema MURRAY/RN]@BY Kaitlin Merchant [id number] Albumin [Mass/Vol] 2.2 g/dL Low 3.4-5.0 [facility] ALP [Catalytic activity/Vol] 58 U/L 46-116 [facility] ALT [Catalytic activity/Vol] U/L Low 16-63 [facility] AST [Catalytic activity/Vol] 18 U/L 15-37 [facility] Bilirubin [Mass/Vol] 0.4 mg/dL 0.2-1.0 [facility] Calcium [Mass/Vol] 7.9 mg/dL Low 8.5-10.1 [facility] Chloride [Moles/Vol] 101 mmol/L 98-107 [facility] CO2 [Moles/Vol] 17.1 mmol/L Low 21.0-32.0 [facility] Creatinine [Mass/Vol] 2.02 mg/dL High 0.70-1.30 [facility] GFR/1.73 sq M.predicted MDRD (S/P/Bld) [Vol rate/Area] 39 mL/min/{1.73_m2} Low >=60 [facility] Glucose [Mass/Vol] 290 mg/dL High 74-106 [facility] Lactate [Moles/Vol] 7.3 mmol/L High 0.4-2.0 [facility] Comment on above: RESULTS CALLED TO STEVE GROSS RN @BY Beatriz Rothman at 0527 Magnesium [Mass/Vol] 1.4 mg/dL Low 1.8-2.4 [facility] Potassium [Moles/Vol] 3.9 mmol/L 3.5-5.1 [facility] Protein [Mass/Vol] 5.5 g/dL Low 6.4-8.2 [facility] Sodium [Moles/Vol] 131 mmol/L Low 136-145 [facility] Urea nitrogen [Mass/Vol] 19.0 mg/dL High 7.0-18.0 [facility] Urea nitrogen/Creatinine [Mass ratio] 9.4 mg/mg [facility] Laboratory - Hematology and Cell countson 10-05-2023 Band form neutrophils/100 WBC (Bld) 9.0 % High 0-5 [facility] Lymphocytes/100 WBC (Bld) 4.0 % Low 20.5-60.0 [facility] Monocytes/100 WBC (Bld) 3.0 % 1.7-12.0 [facility] Leukocytes [#/volume] correc seth for nucleated erythrocytes in Blood by Automated counon 10-05-2023 WBC corrected for nucl RBC Auto (Bld) [#/Vol] 25.1 10 3/uL High 4.0-11.0 [facility] MCH Auto (RBC) [Entitic mass ]on 10-05-2023 MCH (RBC) [Entitic mass] 30.6 pg 25.9-34.0 [facility] MCHC Auto (RBC) [Mass/Vol]on 10-05-2023 MCHC (RBC) [Mass/Vol] 31.3 g/dL 29.9-35.2 [facility] MCV Auto (RBC) [Entitic vol] on 10-05-2023 MCV (RBC) [Entitic vol] 98.0 fL High 80.0-94.0 [facility] Myelocytes/100 WBC Manual cn t (Bld)on 10-05-2023 Myelocytes/100 WBC (Bld) 2.0 % [facility] No Panel Informationon 10-04 Lonnie Test Positive POSITIVE [facility] Arterial Blood Base Excess -21.5 mmol/L Low <2.0-2.0 [facility] Arterial Blood Oxygen Saturation 97.7 % [facility] Arterial Blood Partial Pressure CO2 33.0 mm[Hg] Low 35.0-45.0 [facility] Arterial Blood Partial Pressure O2 106.0 mm[Hg] High 80.0-100.0 [facility] Arterial Blood pH 7.047 Low 7.350-7.45 0 [facility] Comment on above: RESULTS CALLED TO [Efra LANDA/RN]@BY Kaitlin Merchant [id number] Blood Gas Liter Flow 3 [facility] Blood Gas Sample Site ART. LINE [facility] Oxygen Delivery Device NASAL CANNULA [facility] Venous Blood Partial Pressure CO2 35.5 mm[Hg] Low 40.0-52.0 [facility] Venous Blood pH 7.044 Low 7.330-7.43 0 [facility] Absolute Basophils (Manual) 0.00 10 3/uL 0.00-0.10 [facility] Band Neutrophils # (Manual) 2.3 10 3/uL High 0.0-0.3 [facility] C-Reactive Protein, Quantitative 20.88 mg/dL High <=0.50 [facility] Eosinophils # (Manual) 0.00 10 3/uL 0.00-0.70 [facility] Lymphocytes # (Manual) 1.00 10 3/uL Low 1.20-3.80 [facility] Monocytes # (Manual) 0.75 10 3/uL 0.30-0.80 [facility] Myelocytes # (Manual) 0.50 [facility] Reactive Lymphocytes 0.00 [facility] Segmented Neutrophils # (Manual) 20.83 10 3/uL High 1.4-6.5 [facility] Troponin I High Sensitivity 993.4 pg/mL High 4.0-76.1 [facility] Comment on above: RESULTS CALLED TO [Zulema MURRAY/RN]@BY Kaitlin Merchant [id number] POINTS HAVE BEEN ESTABLISHED BASED ON THE FOURTHUNIVERSAL DEFINITION OF MYOCARDIAL INFARCTION. THE UPPERREFERENCE LIMIT (URL) OF TROPONIN, DEFINED THE 99THPERCENTILE OF cTnI DISTRIBUTION IN A REFERENCE POPULATION,HAS BEEN CONFIRMED THE DECISION THRESHOLD FOR MIDIAGNOSIS.99TH PERCENTILE = 76.2 PG/MLNOTE: HIGH-SENSITIVITY TROPONIN ASSAY IS NOT INTENDED TO BEUSED IN ISOLATION BUT SHOULD BE INTERPRETED IN CONJUNCTIONWITH OTHER DIAGNOSTIC AND CLINICAL INFORMATION. Platelet mean volume Auto (B ld) [Entitic vol]on 10-05-2023 Platelet mean volume (Bld) [Entitic vol] 10.1 fL 9.5-13.5 [facility] Platelets Auto (Bld) [#/Vol] on 10-05-2023 Platelets (Bld) [#/Vol] 175 10 3/uL 150-450 [facility] RBC Auto (Bld) [#/Vol]on RBC (Bld) [#/Vol] 2.94 10 6/uL Low 4.70-6.10 [facility] Segmented neutrophils/100 WB C Manual cnt (Bld)on 10-05-2023 Segmented neutrophils/100 WBC (Bld) 83.0 % [facility] Serum or plasma albumin/glob ulin mass ratioon 10-05-2023 Albumin/Globulin [Mass ratio] 0.7 {ratio} [facility] Serum or plasma anion gap de terminationon 10-05-2023 Anion gap [Moles/Vol] 16.8 mmol/L [facility] Basophils Auto (Bld) [#/Vol] on 10-04-2023 Basophils (Bld) [#/Vol] 0.0 10 3/uL 0.0-0.1 [facility] Basophils/100 WBC Auto (Bld) on 10-04-2023 Basophils/100 WBC (Bld) 0.1 % Low 0.2-2.0 [facility] Eosinophils/100 WBC Auto (Bl d)on 10-04-2023 Eosinophils/100 WBC (Bld) 0.0 % Low 0.9-7.0 [facility] Erythrocyte distribution wid th Auto (RBC) [Ratio]on 10-04-2023 Erythrocyte distribution width (RBC) [Ratio] 12.2 % 11.0-15.0 [facility] Estimated glomerular filtrat ion rate (GFR) non- Americanon 10-04-2023 GFR/1.73 sq M.predicted among non-blacks MDRD (S/P/Bld) [Vol rate/Area] mL/min/{1.73_m2} >=60 [facility] Hematocrit Auto (Bld) [Volum e fraction]on 10-04-2023 Hematocrit (Bld) [Volume fraction] 32.9 % Low 42.0-54.0 [facility] Hemoglobin [Mass/volume] in Bloodon 10-04-2023 Hemoglobin (Bld) [Mass/Vol] 10.7 g/dL Low 14.0-18.0 [facility] Laboratory - Chemistry and C hemistry - challengeon 10-04-2023 Lactate [Moles/Vol] 4.4 mmol/L High 0.4-2.0 [facility] Comment on above: RESULTS CALLED TO JULIANO VALDEZ RN @BY Beatriz Rothman at 2037 Bilirubin Ql (U) Negative NEGATIVE [facility] Glucose (U) [Mass/Vol] 100 mg/dL Abnormal NEGATIVE [facility] Ketones Ql (U) Negative NEGATIVE [facility] pH (U) 5.5 [pH] 5.0-9.0 [facility] Specific gravity (U) [Rel density] <=1.005 Abnormal 1.005-1.02 5 [facility] Urobilinogen Qn (U) 0.2 {Wilson'U}/dL 0.2-1.0 [facility] Calcium [Mass/Vol] 9.1 mg/dL 8.5-10.1 [facility] Chloride [Moles/Vol] 96 mmol/L Low 98-107 [facility] CO2 [Moles/Vol] 23.3 mmol/L 21.0-32.0 [facility] Creatinine [Mass/Vol] 1.14 mg/dL 0.70-1.30 [facility] GFR/1.73 sq M.predicted MDRD (S/P/Bld) [Vol rate/Area] mL/min/{1.73_m2} >=60 [facility] Glucose [Mass/Vol] 255 mg/dL High 74-106 [facility] Natriuretic peptide B (Bld) [Mass/Vol] 1213.0 pg/mL <=1800.0 [facility] Potassium [Moles/Vol] 4.4 mmol/L 3.5-5.1 [facility] Sodium [Moles/Vol] 129 mmol/L Low 136-145 [facility] Urea nitrogen [Mass/Vol] 14.0 mg/dL 7.0-18.0 [facility] Urea nitrogen/Creatinine [Mass ratio] 12.3 mg/mg [facility] Laboratory - Hematology and Cell countson 10-04-2023 Immature granulocytes/100 WBC (Bld) 1.3 % High 0.0-0.5 [facility] Laboratory - Microbiology an d Antimicrobial susceptibilityOrdered By: Allen Grey on 10-04-2023 Bacteria identified Cx Nom (U) [facility] Laboratory - Microbiology an d Antimicrobial susceptibilityon 10-04-2023 SARS-CoV-2 (COVID-19) RNA RAYMON+probe Ql (Unsp spec) Negative NEGATIVE [facility] Comment on above: This test has not [...] inform ationon 10-04-2023 Appearance (U) CLEAR CLEAR [facility] Color (U) YELLOW YELLOW [facility] Laboratory - Urinalysison Leukocyte esterase Test strip Ql (U) Negative NEGATIVE [facility] Mucus Ql (Urine sed) NONE SEEN NONE SEEN [facility] Nitrite Ql (U) Negative NEGATIVE [facility] Protein Ql (U) 30 mg/dL Abnormal NEG/TRACE [facility] Leukocytes [#/volume] correc seth for nucleated erythrocytes in Blood by Automated counon 10-04-2023 WBC corrected for nucl RBC Auto (Bld) [#/Vol] 16.6 10 3/uL High 4.0-11.0 [facility] Lymphocytes Auto (Bld) [#/Vo l]on 10-04-2023 Lymphocytes (Bld) [#/Vol] 0.9 10 3/uL Low 1.2-3.8 [facility] Lymphocytes/100 WBC Auto (Bl d)on 10-04-2023 Lymphocytes/100 WBC (Bld) 5.2 % Low 20.5-60.0 [facility] MCH Auto (RBC) [Entitic mass ]on 10-04-2023 MCH (RBC) [Entitic mass] 30.3 pg 25.9-34.0 [facility] MCHC Auto (RBC) [Mass/Vol]on 10-04-2023 MCHC (RBC) [Mass/Vol] 32.5 g/dL 29.9-35.2 [facility] MCV Auto (RBC) [Entitic vol] on 10-04-2023 MCV (RBC) [Entitic vol] 93.2 fL 80.0-94.0 [facility] Monocytes Auto (Bld) [#/Vol] on 10-04-2023 Monocytes (Bld) [#/Vol] 1.4 10 3/uL High 0.3-0.8 [facility] Monocytes/100 WBC Auto (Bld) on 10-04-2023 Monocytes/100 WBC (Bld) 8.3 % 1.7-12.0 [facility] Neutrophils Auto (Bld) [#/Vo l]on 10-04-2023 Neutrophils (Bld) [#/Vol] 14.1 10 3/uL High 1.4-6.5 [facility] Neutrophils/100 WBC Auto (Bl d)on 10-04-2023 Neutrophils/100 WBC (Bld) 85.1 % High 43.0-75.0 [facility] No Panel Informationon 10-03 Urine Bacteria MODERATE #/HPF Abnormal NONE SEEN [facility] Urine Culture Reflexed YES [facility] Urine Occult Blood SMALL Abnormal NEGATIVE [facility] Urine Other Casts NONE SEEN #/LPF NONE SEEN [facility] Urine Other Crystals None Seen #/HPF None Seen [facility] Urine RBC 5-10 #/HPF Abnormal 0-2 [facility] Urine Squamous Epithelial Cells MODERATE #/LPF Abnormal NONE/RARE [facility] Urine WBC 5-10 #/HPF Abnormal NONE SEEN [facility] Bedside Influenza Type A Antigen Negative [facility] Comment on above: Negative for Flu A p rotein antigen. Infection due to Flu Acannot be ruled out. Flu A antigen in the sample may bebelow the detection limit of the test. Bedside Influenza Type B Antigen Negative [facility] Comment on above: Negative for Flu B p rotein antigen. Infection due to Flu Bcannot be ruled out. Flu B antigen in the sample may bebelow the detection limit of the test. Eosinophils # (Auto) 0.0 10 3/uL 0.0-0.7 [facility] Immature Granulocyte # (Auto) 0.21 10 3/uL High 0.00-0.03 [facility] Troponin I High Sensitivity 9.3 pg/mL 4.0-76.1 [facility] Comment on above: CUT-OFF POINTS HAVE BEEN [...] Allen Grey on 10-04-2023 Blood Culture 2 [facility] Blood Culture 1 [facility] Platelet mean volume Auto (B ld) [Entitic vol]on 10-04-2023 Platelet mean volume (Bld) [Entitic vol] 9.5 fL 9.5-13.5 [facility] Platelets Auto (Bld) [#/Vol] on 10-04-2023 Platelets (Bld) [#/Vol] 159 10 3/uL 150-450 [facility] RBC Auto (Bld) [#/Vol]on RBC (Bld) [#/Vol] 3.53 10 6/uL Low 4.70-6.10 [facility] Serum or plasma anion gap de terminationon 10-04-2023 Anion gap [Moles/Vol] 14.1 mmol/L [facility] Serum procalcitonin measurem enton 10-04-2023 Procalcitonin [Mass/Vol] 0.23 ng/mL 0.00-0.50 [facility] Activated partial thrombopla stin time (aPTT) in platelet poor plasma by coagulation aon 09-03-2023 aPTT Coag (PPP) [Time] 28.1 s 22.3-36.2 [facility] Basophils Auto (Bld) [#/Vol] on 09-03-2023 Basophils (Bld) [#/Vol] 0.0 10 3/uL 0.0-0.1 [facility] Basophils/100 WBC Auto (Bld) on 09-03-2023 Basophils/100 WBC (Bld) 0.1 % Low 0.2-2.0 [facility] Eosinophils/100 WBC Auto (Bl d)on 09-03-2023 Eosinophils/100 WBC (Bld) 0.9 % 0.9-7.0 [facility] Erythrocyte distribution wid th Auto (RBC) [Ratio]on 09-03-2023 Erythrocyte distribution width (RBC) [Ratio] 12.4 % 11.0-15.0 [facility] Estimated glomerular filtrat ion rate (GFR) non- Americanon 09-03-2023 GFR/1.73 sq M.predicted among non-blacks MDRD (S/P/Bld) [Vol rate/Area] 41 mL/min/{1.73_m2} Low >=60 [facility] Hematocrit Auto (Bld) [Volum e fraction]on 09-03-2023 Hematocrit (Bld) [Volume fraction] 32.4 % Low 42.0-54.0 [facility] Hemoglobin [Mass/volume] in Bloodon 09-03-2023 Hemoglobin (Bld) [Mass/Vol] 10.8 g/dL Low 14.0-18.0 [facility] INR in Platelet poor plasma by Coagulation assayon 09-03-2023 INR Coag (PPP) [Relative time] 1.06 {INR} [facility] Comment on above: DESIRED INR:2.0-3.0 CONDITIONS NOT LISTED BELOW2.5-3.5 FOR PROSTHETIC HEART VALVE REPLACEMENT2.5-3.5 RECURRENT THROMBOSIS Laboratory - Chemistry and C hemistry - challengeon 09-03-2023 Calcium [Mass/Vol] 9.0 mg/dL 8.5-10.1 [facility] Chloride [Moles/Vol] 103 mmol/L 98-107 [facility] CO2 [Moles/Vol] 25.5 mmol/L 21.0-32.0 [facility] Creatinine [Mass/Vol] 1.63 mg/dL High 0.70-1.30 [facility] GFR/1.73 sq M.predicted MDRD (S/P/Bld) [Vol rate/Area] 50 mL/min/{1.73_m2} Low >=60 [facility] Glucose [Mass/Vol] 228 mg/dL High 74-106 [facility] Potassium [Moles/Vol] 4.8 mmol/L 3.5-5.1 [facility] Sodium [Moles/Vol] 139 mmol/L 136-145 [facility] Urea nitrogen [Mass/Vol] 20.0 mg/dL High 7.0-18.0 [facility] Urea nitrogen/Creatinine [Mass ratio] 12.3 mg/mg [facility] Laboratory - Hematology and Cell countson 09-03-2023 Immature granulocytes/100 WBC (Bld) 0.3 % 0.0-0.5 [facility] Leukocytes [#/volume] correc seth for nucleated erythrocytes in Blood by Automated counon 09-03-2023 WBC corrected for nucl RBC Auto (Bld) [#/Vol] 7.5 10 3/uL 4.0-11.0 [facility] Lymphocytes Auto (Bld) [#/Vo l]on 09-03-2023 Lymphocytes (Bld) [#/Vol] 2.3 10 3/uL 1.2-3.8 [facility] Lymphocytes/100 WBC Auto (Bl d)on 09-03-2023 Lymphocytes/100 WBC (Bld) 31.1 % 20.5-60.0 [facility] MCH Auto (RBC) [Entitic mass ]on 09-03-2023 MCH (RBC) [Entitic mass] 30.9 pg 25.9-34.0 [facility] MCHC Auto (RBC) [Mass/Vol]on 09-03-2023 MCHC (RBC) [Mass/Vol] 33.3 g/dL 29.9-35.2 [facility] MCV Auto (RBC) [Entitic vol] on 09-03-2023 MCV (RBC) [Entitic vol] 92.6 fL 80.0-94.0 [facility] Monocytes Auto (Bld) [#/Vol] on 09-03-2023 Monocytes (Bld) [#/Vol] 0.9 10 3/uL High 0.3-0.8 [facility] Monocytes/100 WBC Auto (Bld) on 09-03-2023 Monocytes/100 WBC (Bld) 11.3 % 1.7-12.0 [facility] Neutrophils Auto (Bld) [#/Vo l]on 09-03-2023 Neutrophils (Bld) [#/Vol] 4.2 10 3/uL 1.4-6.5 [facility] Neutrophils/100 WBC Auto (Bl d)on 09-03-2023 Neutrophils/100 WBC (Bld) 56.3 % 43.0-75.0 [facility] No Panel Informationon 09-02 Eosinophils # (Auto) 0.1 10 3/uL 0.0-0.7 [facility] Immature Granulocyte # (Auto) 0.02 10 3/uL 0.00-0.03 [facility] Platelet mean volume Auto (B ld) [Entitic vol]on 09-03-2023 Platelet mean volume (Bld) [Entitic vol] 9.3 fL Low 9.5-13.5 [facility] Platelets Auto (Bld) [#/Vol] on 09-03-2023 Platelets (Bld) [#/Vol] 186 10 3/uL 150-450 [facility] Prothrombin time (PT)on 08-13 PT Coag (PPP) [Time] 11.2 s 9.0-11.6 [facility] RBC Auto (Bld) [#/Vol]on RBC (Bld) [#/Vol] 3.50 10 6/uL Low 4.70-6.10 [facility] Serum or plasma anion gap de terminationon 09-03-2023 Anion gap [Moles/Vol] 15.3 mmol/L [facility] Basophils Auto (Bld) [#/Vol] on 08-18-2023 Basophils (Bld) [#/Vol] 0.0 10 3/uL 0.0-0.1 [facility] Basophils/100 WBC Auto (Bld) on 08-18-2023 Basophils/100 WBC (Bld) 0.1 % 0.2-2.0 [facility] Cholesterol in LDL Calc [Mas s/Vol]on 08-18-2023 Cholesterol in LDL [Mass/Vol] 31.6 mg/dL [facility] Comment on above: <100 mg/dl [id number] 0-129 mg/dl NEAR OR ABOVE [id number] mg/dl BORDERLINE [id number] mg/dl HIGH>190 mg/dl VERY HIGH Cholesterol in VLDL Calc [Ma ss/Vol]on 08-18-2023 Cholesterol in VLDL [Mass/Vol] 9.4 mg/dL [facility] Eosinophils/100 WBC Auto (Bl d)on 08-18-2023 Eosinophils/100 WBC (Bld) 0.8 % 0.9-7.0 [facility] Erythrocyte distribution wid th Auto (RBC) [Ratio]on 08-18-2023 Erythrocyte distribution width (RBC) [Ratio] 12.2 % 11.0-15.0 [facility] Estimated glomerular filtrat ion rate (GFR) non- Americanon 08-18-2023 GFR/1.73 sq M.predicted among non-blacks MDRD (S/P/Bld) [Vol rate/Area] 57 mL/min/{1.73_m2} >=60 [facility] Globulin Calc (S) [Mass/Vol] on 08-18-2023 Globulin (S) [Mass/Vol] 3.5 g/dL [facility] Hematocrit Auto (Bld) [Volum e fraction]on 08-18-2023 Hematocrit (Bld) [Volume fraction] 35.8 % 42.0-54.0 [facility] Hemoglobin [Mass/volume] in Bloodon 08-18-2023 Hemoglobin (Bld) [Mass/Vol] 11.9 g/dL 14.0-18.0 [facility] Laboratory - Chemistry and C hemistry - challengeon 08-18-2023 Albumin [Mass/Vol] 3.4 g/dL 3.4-5.0 [facility] ALP [Catalytic activity/Vol] 70 U/L 46-116 [facility] ALT [Catalytic activity/Vol] 17 U/L 16-63 [facility] AST [Catalytic activity/Vol] 12 U/L 15-37 [facility] Bilirubin [Mass/Vol] 0.3 mg/dL 0.2-1.0 [facility] Calcium [Mass/Vol] 9.0 mg/dL 8.5-10.1 [facility] Chloride [Moles/Vol] 105 mmol/L 98-107 [facility] Cholesterol [Mass/Vol] 82 mg/dL <=200 [facility] Cholesterol in HDL [Mass/Vol] 41 mg/dL 40-60 [facility] Comment on above: > or =60 mg/dl - LOW CARDIOVASCULAR RISK<40 mg/dl - HIGH CARDIOVASCULAR RISK CO2 [Moles/Vol] 26.5 mmol/L 21.0-32.0 [facility] Creatinine [Mass/Vol] 1.24 mg/dL 0.70-1.30 [facility] GFR/1.73 sq M.predicted MDRD (S/P/Bld) [Vol rate/Area] mL/min/{1.73_m2} >=60 [facility] Glucose [Mass/Vol] 172 mg/dL 74-106 [facility] Potassium [Moles/Vol] 5.1 mmol/L 3.5-5.1 [facility] Protein [Mass/Vol] 6.9 g/dL 6.4-8.2 [facility] Sodium [Moles/Vol] 139 mmol/L 136-145 [facility] Triglyceride [Mass/Vol] 47 mg/dL <=150 [facility] Urea nitrogen [Mass/Vol] 19.0 mg/dL 7.0-18.0 [facility] Urea nitrogen/Creatinine [Mass ratio] 15.3 mg/mg [facility] Laboratory - Hematology and Cell countson 08-18-2023 Immature granulocytes/100 WBC (Bld) 0.1 % 0.0-0.5 [facility] Leukocytes [#/volume] correc seth for nucleated erythrocytes in Blood by Automated counon 08-18-2023 WBC corrected for nucl RBC Auto (Bld) [#/Vol] 10.1 10 3/uL 4.0-11.0 [facility] Lymphocytes Auto (Bld) [#/Vo l]on 08-18-2023 Lymphocytes (Bld) [#/Vol] 2.5 10 3/uL 1.2-3.8 [facility] Lymphocytes/100 WBC Auto (Bl d)on 08-18-2023 Lymphocytes/100 WBC (Bld) 24.3 % 20.5-60.0 [facility] MCH Auto (RBC) [Entitic mass ]on 08-18-2023 MCH (RBC) [Entitic mass] 30.8 pg 25.9-34.0 [facility] MCHC Auto (RBC) [Mass/Vol]on 08-18-2023 MCHC (RBC) [Mass/Vol] 33.2 g/dL 29.9-35.2 [facility] MCV Auto (RBC) [Entitic vol] on 08-18-2023 MCV (RBC) [Entitic vol] 92.7 fL 80.0-94.0 [facility] Monocytes Auto (Bld) [#/Vol] on 08-18-2023 Monocytes (Bld) [#/Vol] 0.8 10 3/uL 0.3-0.8 [facility] Monocytes/100 WBC Auto (Bld) on 08-18-2023 Monocytes/100 WBC (Bld) 8.2 % 1.7-12.0 [facility] Neutrophils Auto (Bld) [#/Vo l]on 08-18-2023 Neutrophils (Bld) [#/Vol] 6.7 10 3/uL 1.4-6.5 [facility] Neutrophils/100 WBC Auto (Bl d)on 08-18-2023 Neutrophils/100 WBC (Bld) 66.5 % 43.0-75.0 [facility] No Panel Informationon 08-17 Eosinophils # (Auto) 0.1 10 3/uL 0.0-0.7 [facility] Immature Granulocyte # (Auto) 0.01 10 3/uL 0.00-0.03 [facility] Platelet mean volume Auto (B ld) [Entitic vol]on 08-18-2023 Platelet mean volume (Bld) [Entitic vol] 9.2 fL 9.5-13.5 [facility] Platelets Auto (Bld) [#/Vol] on 08-18-2023 Platelets (Bld) [#/Vol] 186 10 3/uL 150-450 [facility] RBC Auto (Bld) [#/Vol]on RBC (Bld) [#/Vol] 3.86 10 6/uL 4.70-6.10 [facility] Serum or plasma albumin/glob ulin mass ratioon 08-18-2023 Albumin/Globulin [Mass ratio] 1.0 {ratio} [facility] Serum or plasma anion gap de terminationon 08-18-2023 Anion gap [Moles/Vol] 12.6 mmol/L [facility] Serum or plasma total choles terol/high density lipoprotein (HDL) cholesterol mass kendall 08-18-2023 Cholesterol.total/Chol esterol in HDL [Mass ratio] 2.0 {ratio} [facility] Comment on above: 3.3 - 4.4 LOW RISK4. 4 - 7.1 AVERAGE RISK7.1 - 11.0 MODERATE RISK>11.0 HIGH RISK Ambulatory Visit Summaryon 0 06-25-2023 Ambulatory Visit Summary BRANDON STARR MARILU :1950 Visit Date:06/25/2023 Ambulatory Visit Instructions [...] DIAZ, Cristo Frances Where: [facility] Patient Educationon 06-25-19 Patient Education Urology Testicular [...] provider. Document Revised: 04/05/2020 Document Reviewed: 04/05/2020 [employer] Patient Education ? 2022 [employer]. [facility] Urology Office/Clinic Noteon 06-25-2023 Urology Office/Clinic Note [...] to 16-30 Fr). [2] 6. 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 Had aortic valve replacement. Elevated risk for periop complications in the future. [3] Follow-up With When Contact Information NICOLE DIAZ, Cristo Frances, URL [facility] [address], [place] [address]- [phone] Additional Instructions: has f/u scheduled 11/19/23 Patient Education Testicular Self-Exam I, Opal Kessler, personally scribed for Dr. Rivera on 06/25/2023 10:02:39. . Documentation recorded by the scribe, Opal Kessler, accurately reflects the services(s) I performed and decisions made by me. Authenticated by Dr. Rivera on 06/25/2023 10:05:22. Probl (more content not included)... Normal [facility] Comment on above: Result Comment: Elec tronically Signed By: Cristo RIVERA MD\.br\Date and Time Signed: 06/25/23 10:05 EST\.br\Electronically Co-Signed By: Opal Kessler\.br\Date and Time Co-Signed: 06/25/23 10:03 EST Calcium [Mass/volume] in Ser um or PlasmaOrdered By: Blas Ospina on 07-11-2022 Calcium [Mass/Vol] 9.2 mg/dL 8.2-10.2 [facility] Carbon dioxide, total [Moles /volume] in Serum or PlasmaOrdered By: Blas Ospina on 07-11-2022 CO2 [Moles/Vol] 22.4 mmol/L 22.0-30.0 [facility] Chloride [Moles/volume] in S quinten or PlasmaOrdered By: Blas Ospina on 07-11-2022 Chloride [Moles/Vol] 102 mmol/L 95-114 [facility] Creatinine and Glomerular fi ltration rate.predicted panel (S/P/Bld)Ordered By: Blas Ospina on 07-11-2022 Creatinine [Mass/Vol] 0.97 mg/dL 0.64-1.27 [facility] Estimated glomerular filtrat ion rate (GFR) non- AmericanOrdered By: Blas Ospina on 07-11-2022 GFR/1.73 sq M.predicted among non-blacks MDRD (S/P/Bld) [Vol rate/Area] > 60 mL/Min [facility] Glucose [Mass/volume] in Ser um or PlasmaOrdered By: Blas Ospina on 07-11-2022 Glucose [Mass/Vol] 197 mg/dL 70-100 [facility] Comment on above: ADA recommended [...] on 07-11-2022 Potassium [Moles/Vol] See comment 3.5-5.1 [facility] Comment on above: Specimen hemolyzed, redraw requested Serum or plasma anion gap de terminationOrdered By: Blas Ospina on 07-11-2022 Anion gap [Moles/Vol] TNP [facility] Comment on above: Test not performed Sodium [Moles/volume] in Ser um or PlasmaOrdered By: Blas Ospina on 07-11-2022 Sodium [Moles/Vol] 131 mmol/L 136-146 [facility] Urea nitrogen [Mass/volume] in Serum or PlasmaOrdered By: Blas Ospina on 07-11-2022 Urea nitrogen [Mass/Vol] 20 mg/dL 02-03 [facility] XR hip RT min 2V(w/wo pelvis )*on 07-11-2022 XR hip RT min 2V(w/wo pelvis)* [facility] [employer] Other XR hip RT min 2V(w/wo pelvis)* [facility] [employer] Other XR hip RT min 2V(w/wo pelvis)* [address] [employer] Other XR hip RT min 2V(w/wo pelvis)* [place] [address] [employer] Other XR hip RT min 2V(w/wo pelvis)* XRay Report [employer] Other XR hip RT min 2V(w/wo pelvis)* Signed [employer] Other XR hip RT min 2V(w/wo pelvis)* Patient: Marilu Dan MR#: [id number] [employer] Other XR hip RT min 2V(w/wo pelvis)* 019 [employer] Other XR hip RT min 2V(w/wo pelvis)* : 1950 Acct:[id number] [employer] Other XR hip RT min 2V(w/wo pelvis)* Age/Sex: 72 / M ADM Date: 07/11/22 [employer] Other XR hip RT min 2V(w/wo pelvis)* Loc: Room: Type: [facility] [employer] Other XR hip RT min 2V(w/wo pelvis)* Attending Dr: Mary Beth Pitts MD [employer] Other XR hip RT min 2V(w/wo pelvis)* Copies to: Mary Beth Pitts MD [employer] Other XR hip RT min 2V(w/wo pelvis)* Ordering Provider: Mary Beth Pitts MD [employer] Other XR hip RT min 2V(w/wo pelvis)* Date of Service: 07/11/22 [employer] Other XR hip RT min 2V(w/wo pelvis)* XR/XR hip RT min 2V(w/wo pelvis)*: M25.551 [employer] Other XR hip RT min 2V(w/wo pelvis)* RIGHT HIP - 2 views: [employer] Other XR hip RT min 2V(w/wo pelvis)* CLINICAL HISTORY: Chronic right hip pain for one year. [employer] Other XR hip RT min 2V(w/wo pelvis)* COMPARISON: None [employer] Other XR hip RT min 2V(w/wo pelvis)* FINDINGS: Mild degenerative changes of the right hip without acute bony process. Additional [employer] Other XR hip RT min 2V(w/wo pelvis)* degenerative changes are seen involving the SI joints and visualized lower lumbar spine. Vascular [employer] Other XR hip RT min 2V(w/wo pelvis)* calcifications. [employer] Other XR hip RT min 2V(w/wo pelvis)* XR/XR hip RT min 2V(w/wo pelvis)* [employer] Other XR hip RT min 2V(w/wo pelvis)* IMPRESSION: [employer] Other XR hip RT min 2V(w/wo pelvis)* MILD DEGENERATIVE CHANGES OF THE RIGHT HIP WITHOUT ACUTE BONY PROCESS.. [employer] Other XR hip RT min 2V(w/wo pelvis)* Impression dictated by: Griffin Thibodeaux Jr., D.OBrook07/11/2022 11:33 AM [employer] Other XR hip RT min 2V(w/wo pelvis)* Dictation Location: [place] [address] [employer] Other XR hip RT min 2V(w/wo pelvis)* Transcribed By: ABIMBOLA 07/11/22 [facility] [employer] Other XR hip RT min 2V(w/wo pelvis)* Dictated By: Griffin Thibodeaux Jr, DO 07/11/22 [facility] [employer] Other XR hip RT min 2V(w/wo pelvis)* Signed By: [employer] Other XR hip RT min 2V(w/wo pelvis)* 07/11/22 1133 [employer] Other CULTURE URINEon 04-29-2022 CULTURE URINE Culture Observations : NO GROWTH. [facility] Comment on above: Performed By: #### S EDR #### [facility] [address] [place] [id number] [address] Julius Greer Basophils Auto (Bld) [#/Vol] Ordered By: Neno Coronadoomar on 03-19-2022 Basophils (Bld) [#/Vol] 0.0 10*3/uL 0.0-0.2 [facility] Basophils/100 WBC Auto (Bld) Ordered By: Diyadarobin Coronadoomar on 03-19-2022 Basophils/100 WBC (Bld) 0.2 [...] F Trimethoprim/Sulfamethoxa zole <=20 S F Normal [facility] Comment on above: Performed By: #### S EDR #### [facility] [address] [place], [place] [address] Dr. Julius Greer Microscopic examination of blood, [...] F Trimethoprim/Sulfamethoxa zole <=20 S F Normal [facility] Comment on above: Performed By: #### B LDCX2 #### [facility] [address] [place] [address] Dr. Julius Greer CULTURE URINEon 03-19-2022 CULTURE [...] F Trimethoprim/Sulfamethoxa zole <=20 S F Normal [facility] Comment on above: Performed By: #### S EDR #### [facility] [address] [place] [address] Dr. Julius Greer Creatinine and Glomerular fi ltration rate.predicted panel (S/P/Bld)Ordered By: Neno Moreira on 03-19-2022 Creatinine [Mass/Vol] 0.75 mg/dL 0.64-1.27 [facility] Eosinophils Auto (Bld) [#/Vo l]Ordered By: Neno Moreira on 03-19-2022 Eosinophils (Bld) [#/Vol] 0.0 10*3/uL 0.0-0.45 [facility] Eosinophils/100 WBC Auto (Bl d)Ordered By: Neno Moreira on 03-19-2022 Eosinophils/100 WBC (Bld) 1.0 % . [facility] Erythrocyte distribution wid th Auto (RBC) [Ratio]Ordered By: Neno Moreira on 03-19-2022 Erythrocyte distribution width (RBC) [Ratio] 12.8 % 12.0-14.8 [facility] Estimated glomerular filtrat ion rate (GFR) non- AmericanOrdered By: Nneo Moreira on 03-19-2022 GFR/1.73 sq M.predicted among non-blacks MDRD (S/P/Bld) [Vol rate/Area] > 60 mL/Min [facility] Glucose Glucometer (BldC) [M ass/Vol]Ordered By: Neno Moreira on 03-19-2022 Glucose [Mass/Vol] 295 mg/dL [facility] Comment on above: Random Glucose [...] 03-19-2022 WBC (Bld) [#/Vol] 4.9 10*3/uL 4.5-11.0 [facility] Lymphocytes Auto (Bld) [#/Vo l]Ordered By: Obsarabjitdarobin Coronadoomar on 03-19-2022 Lymphocytes (Bld) [#/Vol] 1.0 10*3/uL 1.00-4.8 [facility] Lymphocytes/100 WBC Auto (Bl d)Ordered By: Obsarabjitdarobin Daromar on 03-19-2022 Lymphocytes/100 WBC (Bld) 20.4 % . [facility] MCH Auto (RBC) [Entitic mass ]Ordered By: Obsarabjitdarobin Daromar on 03-19-2022 MCH (RBC) [Entitic mass] 29.9 pg 27.5-35.2 [facility] MCHC Auto (RBC) [Mass/Vol]Or dered By: Obaydah Daromar on 03-19-2022 MCHC (RBC) [Mass/Vol] 33.9 g/dL 32.5-35.6 [facility] MCV Auto (RBC) [Entitic vol] Ordered By: Obsarabjitdarobin Coronadoomar on 03-19-2022 MCV (RBC) [Entitic vol] 88.3 fL 83.5-101 [facility] Monocytes Auto (Bld) [#/Vol] Ordered By: Obsarabjitdah Daromar on 03-19-2022 Monocytes (Bld) [#/Vol] 0.6 10*3/uL 0.0-0.8 [facility] Monocytes/100 WBC Auto (Bld) Ordered By: Obsarabjitdarobin Daromar on 03-19-2022 Monocytes/100 WBC (Bld) 12.2 % . [facility] Neutrophils Auto (Bld) [#/Vo l]Ordered By: Obsarabjitdah Daromar on 03-19-2022 Neutrophils (Bld) [#/Vol] 3.3 10*3/uL 1.8-7.7 [facility] Neutrophils/100 WBC Auto (Bl d)Ordered By: Obsarabjitdah Daromar on 03-19-2022 Neutrophils/100 WBC (Bld) 66.2 % . [facility] No Panel InformationOrdered By: Obsarabjitdarobin Coronadoomar on 03-19-2022 Estimated GFR () > [...] Platelets Auto (Bld) [#/Vol] Ordered By: Neno Coronadoomayvrose on 03-19-2022 Platelets (Bld) [#/Vol] 134 10*3/uL 150-450 [facility] RBC Auto (Bld) [#/Vol]Ordere d By: Neno Moreira on 03-19-2022 RBC (Bld) [#/Vol] 4.02 10*6/uL 3.90-5.60 [facility] Serum or plasma anion gap de terminationOrdered By: Neno Moreira on 03-19-2022 Anion gap [Moles/Vol] 9.6 mmol/L 6.0-15.0 [facility] Serum or plasma calcium ruma urement (mass/volume)Ordered By: Neno Moreira on 03-19-2022 Calcium [Mass/Vol] 8.2 mg/dL 8.2-10.2 [facility] Serum or plasma chloride gonzalez surement (moles/volume)Ordered By: Neno Moreira on 03-19-2022 Chloride [Moles/Vol] 104 mmol/L 95-114 [facility] Serum or plasma glucose ruma urement (mass/volume)Ordered By: Neno Moreira on 03-19-2022 Glucose [Mass/Vol] 203 mg/dL 70-100 [facility] Comment on above: ADA recommended refe rence rangeRandom Glucose Reference Range is dependent on time and content of last meal. Glucose of more than 200 mg/dL in a nonstressed, ambulatory subject supports the diagnosis of Diabetes Mellitus. Serum or plasma potassium me asurement (moles/volume)Ordered By: Neno Moreira on 03-19-2022 Potassium [Moles/Vol] 3.7 mmol/L 3.5-5.1 [facility] Serum or plasma sodium measu rement (moles/volume)Ordered By: Neno Moreira on 03-19-2022 Sodium [Moles/Vol] 137 mmol/L 136-146 [facility] Serum or plasma total carbon dioxide measurement (moles/volume)Ordered By: Neno Moreira on 03-19-2022 CO2 [Moles/Vol] 27.1 mmol/L 22.0-30.0 [facility] Serum or plasma urea nitroge n measurement (mass/volume)Ordered By: Neno Moreira on 03-19-2022 Urea nitrogen [Mass/Vol] 11 mg/dL 9- [facility] Troponin I.cardiac [Mass/vol ume] in Serum or [...] aPTT Coag (PPP) [Time] 26.2 s 25.1-36.5 [facility] Laboratory - CoagulationOrde red By: Paulina Alexander on 03-18-2022 PT Coag (PPP) [Time] 14.0 s 9.0-12.9 [facility] Platelet adequacy [Presence] in Blood by Light microscopyOrdered By: Paulina Alexander on 03-18-2022 Platelets LM Ql (Bld) Decreased Normal [facility] Platelet morphology finding [Identifier] in BloodOrdered [...] Nom (Bld) Normal [facility] Automated erythrocytes count in urine sediment (number/area)Ordered [...] 0-1 [LPF] 0-1 [facility] Bilirubin Test strip Ql (U)O rdered By: Paulina Alexander on 03-17-2022 Bilirubin Ql (U) Negative Negative [facility] Body fluid albumin measureme nt (mass/volume)Ordered [...] on 03-17-2022 Cholesterol [Mass/Vol] 50 mg/dL 140-200 [facility] Comment on above: Chol less than 200 [...] [Mass/Vol] 20 mg/dL [facility] Color Auto (U)Ordered By: Jose G Alexander on 03-17-2022 Color (U) Yellow Yellow [facility] Globulin Calc (S) [Mass/Vol] Ordered By: Paulina Alexander on 03-17-2022 Globulin (S) [Mass/Vol] 3.1 g/dL [facility] Glucose mean value [Mass/vol ume] in Blood [...] on 03-17-2022 Ketones (U) [Mass/Vol] Negative Negative [facility] Laboratory - Chemistry and C hemistry - challengeOrdered By: Paulina Alexander on 03-17-2022 Magnesium [Mass/Vol] 1.6 mg/dL 1.6-2.6 [facility] Nitrite Test strip Ql (U)Ord ered By: Paulina Alexander on 03-17-2022 Nitrite Ql (U) Negative Negative [facility] No Panel InformationOrdered By: Neno Moreira on 03-17-2022 Bedside Glucose Comment Glu2: cleaned meter [facility] Protein Auto test strip (U) [Mass/Vol]Ordered By: Paulina Alexander on 03-17-2022 Protein (U) [Mass/Vol] 100 mg/dL Negative [facility] Protein [Mass/volume] in Ser um or PlasmaOrdered By: Paulina Alexander on 03-17-2022 Protein [Mass/Vol] 5.6 g/dL 6.1-7.9 [facility] Serum or plasma alanine gamez [...] on 03-17-2022 Bilirubin [Mass/Vol] 0.6 mg/dL 0.3-1.2 [facility] Serum or plasma total choles terol/high [...] Bacteria Auto Ql (U) 2+ None Seen [facility] Comment on above: --- 03/17/22 0600 [...] SERUMon 03-16-2022 ACETONE Negative Normal NEGATIVE [facility] Comment on above: Performed By: #### S EDR #### [facility] [address] [place] [address] Dr. Julius Greer BLOOD CULTURE ID PANELon A. baumannii Not detected Normal NOT DETECTED [facility] Comment on above: Performed By: #### C BCMAN #### [facility] [address] [place] [address] Dr. Julius Greer Bacteriodes fragilis Not detected Normal NOT DETECTED [facility] Comment on above: Performed By: #### C BCMAN #### [facility] [address] [place] [address] Dr. Julius FRIEDMAN CONTROLS PASSED Normal [facility] Comment on above: Performed By: #### C BCMAN #### [facility] [address] [place] [address] Dr. Julius Greer BCIDBTHD BLOOD CULTURE BOTTLE INFORMATION Normal [facility] Comment on above: Performed By: #### C BCMAN #### [facility] [address] [place] [address] Dr. Julius Greer BCIDHD1 ANTIMICROBIAL RESIST ANCE GENES Normal [facility] Comment on above: Performed By: #### C BCMAN #### [facility] [address] [place] [address] Dr. Julius Greer BCIDHD2 SEE BELOW [facility] Comment on above: Result Comment: Note : Antimicrobial resitance can occur via multiple mechanisms. A Not Detected result for the [employer] antomicrobial resistance gene assays does not indicate antimicrobial susceptibility. Subculturing is required for species identification and susceptibility testing of isolates. Performed By: #### C BCMAN #### [facility] [address] [place] [address] Dr. Julius Greer BCIDHD3 Positive Normal [facility] Comment on above: Performed By: #### C BCMAN #### [facility] [address] [place] [address] Dr. Julius Greer BCIDHD4 Negative Normal [facility] Comment on above: Performed By: #### C BCMAN #### [facility] [address] [place] [address] Dr. Julius Greer BCIDHD5 YEAST Normal [facility] Comment on above: Performed By: #### C BCMAN #### [facility] [address] [place] [address] Dr. Julius Greer Bottle Set: Set 2 [facility] Comment on above: Performed By: #### C BCMAN #### [facility] [address] [place] [address] Dr. Julius Greer Bottle: Aerobic Normal [facility] Comment on above: Performed By: #### C BCMAN #### [facility] [address] [place] [address] Dr. Julius Greer C. neoformans/gattii Not detected Normal NOT DETECTED [facility] Comment on above: Performed By: #### C BCMAN #### [facility] [address] [place] [address] Dr. Julius Greer Sally albicans Not detected Normal NOT DETECTED [facility] Comment on above: Performed By: #### C BCMAN #### [facility] [address] [place] [address] Dr. Julius Greer Sally auris Not detected Normal NOT DETECTED [facility] Comment on above: Performed By: #### C BCMAN #### [facility] [address] [place] [address] Dr. Julius Greer Sally glabrata Not detected Normal NOT DETECTED [facility] Comment on above: Performed By: #### C BCMAN #### [facility] [address] [place] [address] Dr. Julius Greer Sally Krusei Not detected Normal NOT DETECTED [facility] Comment on above: Performed By: #### C BCMAN #### [facility] [address] [place] [address] Dr. Julius Greer Sally Parapsilosis Not detected Normal NOT DETECTED [facility] Comment on above: Performed By: #### C BCMAN #### [facility] [address] [place] [address] Dr. Julius Greer Sally Tropicalis Not detected Normal NOT DETECTED [facility] Comment on above: Performed By: #### C BCMAN #### [facility] [address] [place] [address] Dr. Julius Greer CTX-M Resistant Gene Not detected Normal NOT DETECTED [facility] Comment on above: Performed By: #### C BCMAN #### [facility] [address] [place] [address] Dr. Julius Greer E. Cloacae complex Not detected Normal NOT DETECTED [facility] Comment on above: Performed By: #### C BCMAN #### [facility] [address] [place] [address] Dr. Julius Greer E. faecalis Not detected Normal NOT DETECTED [facility] Comment on above: Performed By: #### C BCMAN #### [place] [facility] [facility] [address] [place] [address] Dr. Julius Greer E. faecium Not detected Normal NOT DETECTED [facility] Comment on above: Performed By: #### C BCMAN #### [facility] [address] [place] [address] Dr. Julius Greer Enterobacteriaceae Detected Critically abnormal NOT DETECTED [facility] Comment on above: Performed By: #### C BCMAN #### [facility] [address] [place] [address] Dr. Julius Greer Escherichia coli Not detected Normal NOT DETECTED [facility] Comment on above: Performed By: #### C BCMAN #### [facility] [address] [place] [address] Dr. Julius Greer H. influenzae Not detected Normal NOT DETECTED [facility] Comment on above: Performed By: #### C BCMAN #### [facility] [address] [place] [address] Dr. Julius Greer IMP Resistant Gene Not detected Normal NOT DETECTED [facility] Comment on above: Performed By: #### C BCMAN #### [facility] [address] [place] [address] Dr. Julius Greer K. oxytoca Not detected Normal NOT DETECTED [facility] Comment on above: Performed By: #### C BCMAN #### [facility] [address] [place] [address] Dr. Julius Greer K. pneumoniae Not detected Normal NOT DETECTED [facility] Comment on above: Performed By: #### C BCMAN #### [facility] [address] [place] [address] Dr. Julius Greer Klebsiella aerogenes Not detected Normal NOT DETECTED [facility] Comment on above: Performed By: #### C BCMAN #### [facility] [address] [place] [address] Dr. Julius Greer KPC Resistant Gene Not detected Normal NOT DETECTED [facility] Comment on above: Performed By: #### C BCMAN #### [facility] [address] [place] [address] Dr. Julius Greer List. monocytogenes Not detected Normal NOT DETECTED [facility] Comment on above: Performed By: #### C BCMAN #### [facility] [address] [place] [address] Dr. Julius Greer Mcr-1 Resistant Gene Not Applicable Normal NOT DETECTED [facility] Comment on above: Performed By: #### C BCMAN #### [facility] [address] [place] [address] Dr. Julius Greer mecA/C Not Applicable Normal NOT DETECTED [facility] Comment on above: Performed By: #### C BCMAN #### [facility] [address] [place] [address] Dr. Julius Greer mecA/C MREJ Not Applicable Normal NOT DETECTED [facility] Comment on above: Performed By: #### C BCMAN #### [facility] [address] [place] [address] Dr. Julius Greer N. meningitidis Not detected Normal NOT DETECTED [facility] Comment on above: Performed By: #### C BCMAN #### [facility] [address] [place] [address] Dr. Julius Greer NDM Resistant Gene Not detected Normal NOT DETECTED [facility] Comment on above: Performed By: #### C BCMAN #### [facility] [address] [place] [address] Dr. Julius Greer Oxa-48-like Not detected Normal NOT DETECTED [facility] Comment on above: Performed By: #### C BCMAN #### [facility] [address] [address] [address] Julius Greer Proteus Detected Critically abnormal NOT DETECTED [facility] Comment on above: Performed By: #### C BCMAN #### [facility] [address] [place] [address] Dr. Julius Greer Pseud. aeruginosa Not detected Normal NOT DETECTED [facility] Comment on above: Performed By: #### C BCMAN #### [facility] [address] [place] [address] Dr. Julius Greer S. maltophilia Not detected Normal NOT DETECTED [facility] Comment on above: Performed By: #### C BCMAN #### [facility] [address] [place] [address] Dr. Julius Greer Salmonella Not detected Normal NOT DETECTED [facility] Comment on above: Performed By: #### C BCMAN #### [facility] [address] [place] [address] Dr. Julius Greer Seratia marcescens Not detected Normal NOT DETECTED [facility] Comment on above: Performed By: #### C BCMAN #### [facility] [address] [place] [address] Dr. Julius Greer Site: Rt Wrist Normal [facility] Comment on above: Performed By: #### C BCMAN #### [facility] [address] [place] [address] Dr. Julius Greer Staph. aureus Not detected Normal NOT DETECTED [facility] Comment on above: Performed By: #### C BCMAN #### [facility] [address] [place] [address] Dr. Julius Bonillah. epidermidis Not detected Normal NOT DETECTED [facility] Comment on above: Performed By: #### C BCMAN #### [facility] [address] [place] [address] Dr. Julius Greer Staph. lugdunensis Not detected Normal NOT DETECTED [facility] Comment on above: Performed By: #### C BCMAN #### [facility] [address] [place] [address] Dr. Julius Greer Staphylococcus Not detected Normal NOT DETECTED [facility] Comment on above: Performed By: #### C BCMAN #### [facility] [address] [place] [address] Dr. Julius Greer Strep. agalactiae Not detected Normal NOT DETECTED [facility] Comment on above: Performed By: #### C BCMAN #### [facility] [address] [place] [address] Dr. Julius Greer Strep. pneumoniae Not detected Normal NOT DETECTED [facility] Comment on above: Performed By: #### C BCMAN #### [facility] [address] [place] [address] Dr. Julius Greer Strep. pyogenes Not detected Normal NOT DETECTED [facility] Comment on above: Performed By: #### C BCMAN #### [facility] [address] [place] [address] Dr. Julius Greer Streptococcus Not detected Normal NOT DETECTED [facility] Comment on above: Performed By: #### C BCMAN #### [facility] [address] [place] [address] Dr. Julius Greer Alejandra/B Resist. Gene Not Applicable Normal NOT DETECTED [facility] Comment on above: Performed By: #### C BCMAN #### [facility] [address] [place] [address] Dr. Julius Greer VIM Resistant Gene Not detected Normal NOT DETECTED [facility] Comment on above: Performed By: #### C BCMAN #### [facility] [address] [place] [address] Dr. Julius Greer CARDIAC MARKUS 3-6on 2 CK [Catalytic activity/Vol] 130 U/L Normal 39-308 [facility] Comment on above: Performed By: #### Zulema STORM #### [facility] [address] [place] [address] Dr. Julius Greer CK.MB [Mass/Vol] 3.69 ng/mL Critically high <=3.60 [facility] Comment on above: Performed By: #### Zulema STORM #### [facility] [address] [address] [address] Julius Greer HSTROP 603.2 pg/mL Critically high 4.0-76.1 [facility] Comment on above: Result Comment: CUT- OFF POINTS HAVE BEEN ESTABLISHED BASED ON THE FOURTH UNIVERSAL DEFINITIONS OF MYOCARDIAL INFARCTION. THE UPPER REFERENCE LIMIT (URL) OF TROPONIN, DEFINED THE 99TH PERCENTILE OF cTnI DISTRIBUTION IN A REFERENCE POPULATION, HAS BEEN CONFIRMED THE DECISION THRESHOLD FOR PA DIAGNOSIS. Performed By: #### C EMETERIO #### [facility] [address] [place] [address] Dr. Julius Greer CBC W MANUAL DIFFon 03-16-20 22 ATYPICAL LYMPH # 0.04 103/ul Normal [facility] Comment on above: Performed By: #### Zulema STORM #### [facility] [address] [place] [address] Dr. Julius Greer ATYPICAL LYMPH % 1 % Normal [facility] Comment on above: Performed By: #### Zulema STORM #### [facility] [address] [address] [address] Julius Greer BAND # 0.2 103/ul Normal 0.0-0.3 [facility] Comment on above: Performed By: #### Zulema STORM #### [facility] [address] [place] [address] Dr. Julius Greer BAND % 5 % Normal 0-5 [facility] Comment on above: Performed By: #### Zulema STORM #### [facility] [address] [place] [address] Dr. Julius Greer BASOM # 0.00 103/ul Normal 0.00-0.10 [facility] Comment on above: Performed By: #### C EMETERIO #### [facility] [address] [place] [address] Dr. Julius Greer BASOM % 0.0 % Critically low 0.2-2.0 [facility] Comment on above: Performed By: #### C BCSARITA #### [facility] [address] [place] [address] Dr. Julius Greer BLAST # Normal [facility] Comment on above: Performed By: #### C EMETERIO #### [facility] [address] [place] [address] Dr. Julius Greer BLAST % Normal [facility] Comment on above: Performed By: #### C EMETERIO #### [facility] [address] [place] [address] Dr. Julius Greer CORRECTED WBC Normal 4.0-11.0 [facility] Comment on above: Performed By: #### C EMETERIO #### [facility] [address] [place] [address] Dr. Julius Greer EOS # 0.00 103/ul Normal 0.00-0.70 [facility] Comment on above: Performed By: #### C EMETERIO #### [facility] [address] [place] [address] Dr. Julius Greer EOS% 0.0 % Critically low 0.9-7.0 [facility] Comment on above: Performed By: #### C EMETERIO #### [facility] [address] [place] [address] Dr. Julius Greer HCT 39.8 % Critically low 42.0-54.0 [facility] Comment on above: Performed By: #### C EMETERIO #### [facility] [address] [place] [address] Dr. Julius Greer HGB 13.3 g/dl Critically low 14.0-18.0 [facility] Comment on above: Performed By: #### C EMETERIO #### [facility] [address] [place] [address] Dr. Julius Greer LYMPHM # 0.43 103/ul Critically low 1.20-3.80 [facility] Comment on above: Performed By: #### C EMETERIO #### [facility] [address] [place] [address] Dr. Julius Greer LYMPHM% 11.0 % Critically low 20.5-60.0 [facility] Comment on above: Performed By: #### C EMETERIO #### [facility] [address] [address] [address] Julius Greer MCH 29.9 pg Normal 25.9-34.0 [facility] Comment on above: Performed By: #### C EMETERIO #### [facility] [address] [place] [address] Dr. Julius Greer MCHC 33.4 g/dl Normal 29.9-35.2 [facility] Comment on above: Performed By: #### C EMETERIO #### [facility] [address] [place] [address] Dr. Julius Greer MCV 89.4 fL Normal 80.0-94.0 [facility] Comment on above: Performed By: #### C EMETERIO #### [facility] [address] [place] [address] Dr. Julius Greer METAMYELOCYTE # Normal [facility] Comment on above: Performed By: #### C EMETERIO #### [facility] [address] [place] [address] Dr. Julius Greer METAMYELOCYTE % Normal [facility] Comment on above: Performed By: #### C EMETERIO #### [facility] [address] [place] [address] Dr. Julius Greer MONOM# 0.08 103/ul Critically low 0.30-0.80 [facility] Comment on above: Performed By: #### C EMETERIO #### [facility] [address] [place] [address] Dr. Julius Greer MONOM% 2.0 % Normal 1.7-12.0 [facility] Comment on above: Performed By: #### C EMETERIO #### [facility] [address] [address] [address] Julius Greer MPV 9.6 fL Normal 9.5-13.5 [facility] Comment on above: Performed By: #### C EMETERIO #### [facility] [address] [address] [address] Julius Greer MYELOCYTE # Normal [facility] Comment on above: Performed By: #### C EMETERIO #### [facility] [address] [address] [address] Julius Greer MYELOCYTE % Normal [facility] Comment on above: Performed By: #### C EMETERIO #### [facility] [address] [place] [address] Dr. Julius Greer NRBC Normal [facility] Comment on above: Performed By: #### C EMETERIO #### [facility] [address] [place] [address] Dr. Julius Greer PLT 130 103/ul Critically low 150-450 [facility] Comment on above: Performed By: #### C EMETERIO #### [facility] [address] [place] [address] Dr. Julius Greer RBC 4.45 106/ul Critically low 4.70-6.10 [facility] Comment on above: Performed By: #### C EMETERIO #### [facility] [address] [place] [address] Dr. Julius Greer RDW 12.1 % Normal 11.0-15.0 [facility] Comment on above: Performed By: #### C EMETERIO #### [facility] [address] [place] [address] Dr. Julius Greer SEG # 3.16 103/ul Normal 1.40-6.50 [facility] Comment on above: Performed By: #### C EMETERIO #### [facility] [address] [place] [address] Dr. Julius Greer SEG % 81.0 % Critically high 43.0-75.0 [facility] Comment on above: Performed By: #### C EMETERIO #### [facility] [address] [place], [place] [address] Dr. Julius Greer WBC 3.9 103/ul Critically low 4.0-11.0 [facility] Comment on above: Performed By: #### C BCMAN #### [facility] [address] [place], [place] [address] Dr. Julius Greer CRPon 03-16-2022 CRP 27.4 mg/dL Critically high <=1.0 [facility] Comment on above: Performed By: #### S EDR #### [facility] [address] [place], [place] [address] ABD/PELVIS WO CONon [...] DORCAS PATEL Date: 2022-03-16 18:46 Normal [facility] Covid-19 PCR (CVDTB)on SARS-CoV-2 (COVID-19) RNA RAYMON+probe Ql (Unsp spec) Not detected Normal NOT DETECTED [facility] Comment on above: Result Comment: When [...] for this test is supported by the [employer]yl[employer] of Health and Human Service's declaration that [...] used). Performed By: #### C VDTB #### [facility] [address] [place] [address] Dr. Julius Greer ER URINE PROFILEon 2 Bilirubin Ql (U) Negative Normal NEGATIVE [facility] Comment on above: Performed By: #### C EMETERIO #### [facility] [address] [place] [address] Dr. Julius Greer Clarity (U) CLEAR Normal CLEAR [facility] Comment on above: Performed By: #### C EMETERIO #### [facility] [address] [place] [address] Dr. Julius Greer Color (U) DK. ORANGE Abnormal YELLOW [facility] Comment on above: Performed By: #### C EMETERIO #### [facility] [address] [place] [address] Dr. Julius Greer ERUAHD A micrscopic examina tion will be performed if indicated. Normal [facility] Comment on above: Performed By: #### C EMETERIO #### [facility] [address] [place] [address] Dr. Julius Greer Glucose Ql (U) 500 mg/dl Abnormal NEGATIVE [facility] Comment on above: Performed By: #### C EMETERIO #### [facility] [address] [place] [address] Dr. Julius Greer Hemoglobin Ql (U) LARGE Abnormal NEGATIVE [facility] Comment on above: Performed By: #### C EMETERIO #### [facility] [address] [place] [address] Dr. Julius Greer Ketones Ql (U) 15 mg/dl Abnormal NEGATIVE [facility] Comment on above: Performed By: #### C EMETERIO #### [facility] [address] [place] [address] Dr. Julius Greer LEUKOCYTES SMALL Abnormal NEGATIVE [facility] Comment on above: Performed By: #### C EMETERIO #### [facility] [address] [place] [address] Dr. Julius Greer Nitrite Ql (U) Positive Abnormal NEGATIVE [facility] Comment on above: Performed By: #### C EMETERIO #### [facility] [address] [place] [address] Dr. Julius Greer pH (U) 8.5 [pH] Normal 5-9 [facility] Comment on above: Performed By: #### C EMETERIO #### [facility] [address] [place] [address] Dr. Julius Greer Protein (U) [Mass/Vol] 100 mg/dL Abnormal NEGAT HAYDEE/ TRACE [facility] Comment on above: Performed By: #### C EMETERIO #### [facility] [address] [place] [address] Dr. Julius Greer SPEC GRAVITY 1.020 Normal 1.005-<=1. 025 [facility] Comment on above: Performed By: #### C EMETERIO #### [facility] [address] [place] [address] Dr. Julius Greer UR MICRO IND INDICATED Normal [facility] Comment on above: Performed By: #### C EMETERIO #### [facility] [address] [place] [address] Dr. Julius Greer Urobilinogen Qn (U) 1.0 {Wilson'U}/dL Normal 0.2 - 1. 0 [facility] Comment on above: Performed By: #### C BCSARITA #### [facility] [address] [address] [address] Julius Greer LACTATE/LACTIC ACIDon 2021 Lactate [Moles/Vol] 2.3 mmol/L Critically high 0.4-1.9 [facility] Comment on above: Performed By: #### C EMETERIO #### [facility] [address] [place] [address] Dr. Julius Greer Lactate [Moles/Vol] 4.1 mmol/L Critically high 0.4-1.9 [facility] Comment on above: Performed By: #### L ACT #### [facility] [address] [place] [address] Dr. Julius Greer PH VENOUS BLOODon 03-16-2022 PCO2 VENOUS 29.6 mmHg Critically low 40.0-52.0 [facility] Comment on above: Performed By: #### P HVEN #### [facility] [address] [place] [address] Dr. Julius Greer pH VENOUS 7.428 Normal 7.330-7.43 0 [facility] Comment on above: Performed By: #### P HVEN #### [facility] [address] [place] [address] Dr. Julius Greer POINT OF CARE GLUCOSEon Glucose [Mass/Vol] 314 mg/dL Critically high 74-106 [facility] Comment on above: Performed By: #### P OCGLUC #### [facility] [address] [place] [address] Dr. Julius Greer PROF 14(COMP METB)on 022 Albumin [Mass/Vol] 2.8 g/dL Critically low 3.4-5.0 [facility] Comment on above: Performed By: #### S EDR #### [facility] [address] [place] [address] Dr. Julius Greer Albumin/Globulin [Mass ratio] 0.8 {ratio} Normal [facility] Comment on above: Performed By: #### S EDR #### [facility] [address] [address] [address] Julius Greer ALP [Catalytic activity/Vol] 80 U/L Normal 46-116 [facility] Comment on above: Performed By: #### S EDR #### [facility] [address] [address] [address] Julius Greer ALT [Catalytic activity/Vol] 14 U/L Critically low 16-63 [facility] Comment on above: Performed By: #### S EDR #### [facility] [address] [address] [address] Julius Greer Anion gap [Moles/Vol] 14.7 mmol/L Normal [facility] Comment on above: Performed By: #### S EDR #### [facility] [address] [address] [address] Julius Greer AST [Catalytic activity/Vol] 20 U/L Normal 15-37 [facility] Comment on above: Performed By: #### S EDR #### [facility] [address] [address] [address] Julius Greer Bilirubin [Mass/Vol] 0.6 mg/dL Normal 0.2-1.0 [facility] Comment on above: Performed By: #### S EDR #### [facility] [address] [address] [address] Julius Greer Calcium [Mass/Vol] 8.5 mg/dL Normal 8.5-10.1 [facility] Comment on above: Performed By: #### S EDR #### [facility] [address] [address] [address] Julius Greer Chloride [Moles/Vol] 96 mmol/L Critically low 98-107 [facility] Comment on above: Performed By: #### S EDR #### [facility] [address] [address] [address] Julius Greer CO2 [Moles/Vol] 19.7 mmol/L Critically low 21.0-32.0 [facility] Comment on above: Performed By: #### S EDR #### [facility] [address] [address] [address] Julius Greer Creatinine [Mass/Vol] 1.26 mg/dL Normal 0.70-1.30 [facility] Comment on above: Performed By: #### S EDR #### [facility] [address] [address] [address] Julius Greer EGFR-AF CYMRO >60 Normal >=60 [facility] Comment on above: Performed By: #### S EDR #### [facility] [address] [address] [address] Julius Greer EGFR-NON AF CYMRO 56 mL/min/1.73m2 Critically low >=60 [facility] Comment on above: Performed By: #### S EDR #### [facility] [address] [address] [address] Julius Greer Globulin (S) [Mass/Vol] 3.6 g/dL Normal [facility] Comment on above: Performed By: #### S EDR #### [facility] [address] [address] [address] Julius Greer Glucose [Mass/Vol] 311 mg/dL Critically high 74-106 [facility] Comment on above: Performed By: #### S EDR #### [facility] [address] [address] [address] Julius Greer Potassium [Moles/Vol] 3.4 mmol/L Critically low 3.5-5.1 [facility] Comment on above: Performed By: #### S EDR #### [facility] [address] [address] [address] Julius Greer Protein [Mass/Vol] 6.4 g/dL Normal 6.4-8.2 [facility] Comment on above: Performed By: #### S EDR #### [facility] [address] [address] [address] Julius Greer Sodium [Moles/Vol] 127 mmol/L Critically low 136-145 [facility] Comment on above: Performed By: #### S EDR #### [facility] [address] [place] [address] Dr. Julius Greer Urea nitrogen [Mass/Vol] 19.0 mg/dL Critically high 7.0-18.0 [facility] Comment on above: Performed By: #### S EDR #### [facility] [address] [place] [address] Dr. Julius Greer Urea nitrogen/Creatinine [Mass ratio] 15.1 mg/mg Normal [facility] Comment on above: Performed By: #### S EDR #### [facility] [address] [place] [address] Dr. Julius Greer PROTIMEon 03-16-2022 INR Coag (PPP) [Relative time] 1.38 {INR} Normal [facility] [facility] [place] Comment on above: Performed By: #### P T, PTT #### [facility] [address] [place] [address] Dr. Julius Greer INR GUIDELINES SEE BELOW Normal [facility] Comment on above: Result Comment: PETROS RED INR: 2.0 - 3.0 CONDITIONS NOT LISTED BELOW 2.5 - 3.5 FOR PROSTHETIC HEART VALVE REPLACEMENT 2.5 - 3.5 RECURRENT THROMBOSIS Performed By: #### P T, PTT #### [facility] [address] [place] [address] Dr. Julius Greer PT Coag (PPP) [Time] 14.6 s Critically high 9.0-11.6 [facility] Comment on above: Performed By: #### P T, PTT #### [facility] [address] [place] [address] Dr. Julius Greer PTTon 03-16-2022 aPTT Coag (Bld) [Time] 36.2 s Normal 22.3-36.2 Th [facility] Comment on above: Performed By: #### P T, PTT #### [facility] [address] [place] [address] Dr. Julius Greer SED RATE WESTERGRENon 2021 SED RATE 62 mm/hr Critically high <=20 [facility] Comment on above: Performed By: #### S EDR #### [facility] [address] [place] [address] Dr. Julius Greer TROPONIN, HIGH SENSITIVITYon 03-16-2022 HSTROP 651.3 pg/mL Critically high 4.0-76.1 [facility] Comment on above: Result Comment: CUT- OFF POINTS HAVE BEEN ESTABLISHED BASED ON THE FOURTH UNIVERSAL DEFINITIONS OF MYOCARDIAL INFARCTION. THE UPPER REFERENCE LIMIT (URL) OF TROPONIN, DEFINED THE 99TH PERCENTILE OF cTnI DISTRIBUTION IN A REFERENCE POPULATION, HAS BEEN CONFIRMED THE DECISION THRESHOLD FOR PA DIAGNOSIS. Performed By: #### S EDR #### [facility] [address] [place] [address] Dr. Julius Greer URINE MICROSCOPIC ONLYon BACTERIA TRACE Abnormal NONE SEEN [facility] Comment on above: Performed By: #### C FRANCMAN #### [facility] [address] [place] [address] Dr. Julius Greer Bacteria identified Cx Nom (U) INDICATED Normal [facility] Comment on above: Performed By: #### C BCMAN #### [facility] [address] [place] [address] Dr. Julius Greer CAST SEEN Abnormal NONE SEEN [facility] Comment on above: Performed By: #### C FRANCMAN #### [facility] [address] [place] [address] Dr. Julius Greer Crystals LM Nom (Urine sed) NONE SEEN Normal NONE SEEN [facility] Comment on above: Performed By: #### C BCMAN #### [facility] [address] [place] [address] Dr. Julius Greer Epithelial cells LM Ql (Urine sed) FEW Abnormal NONE SEEN /RARE [facility] Comment on above: Performed By: #### C BCMAN #### [facility] [address] [place] [address] Dr. Julius Greer HYALINE CAST RARE Normal [facility] Comment on above: Performed By: #### C BCMAN #### [facility] [address] [place] [address] Dr. Julius Greer MUCOUS NONE SEEN Normal NONE SEEN [facility] Comment on above: Performed By: #### C BCMAN #### [facility] [address] [place], [place] [address] Dr. Julius Greer RBC 0-2 Normal 0-2 [facility] Comment on above: Performed By: #### C BCMAN #### [facility] [address] [place], [place] [address] Dr. Julius Greer XR CHEST 1 Von [...] by: Marc SHEARER Date: 2022-03-16 20:19 Normal [facility] CT ABD/PELV WO W CONon 03-06 CT [...] by: OLIVIA SERRANO Date: 2022-03-06 07:43 Normal [facility] CREATININEon 03-03-2022 Creatinine [Mass/Vol] 0.83 mg/dL Normal 0.70-1.30 [facility] Comment on above: Performed By: #### C STU #### [facility] [address] [place] [address] Dr. Julius Greer EGFR-AF CYMRO >60 Normal >=60 [facility] Comment on above: Performed By: #### C STU #### [facility] [address] [place] [address] Dr. Julius Greer EGFR-NON AF CYMRO >60 Normal >=60 [facility] Comment on above: Performed By: #### C STU #### [facility] [address] [place] [address] Dr. Julius Greer PTon 12-16-2021 INR Coag (PPP) [Relative time] 1.5 {INR} Normal [facility] Comment on above: Result Comment: Non-therapeutic Range: INR = 0.9-1.2 Therapeutic Range: Moderate Anticoagulant Intensity: INR = 2.0-3.0 High Anticoagulant Intensity: INR = 2.5-3.5 Performed By: #### P T #### [facility] [address] [place] [address] Gynecological Assistant: Michael Méndez MD PT Coag (PPP) [Time] 17.9 s High 11.5-14.2 [facility] Comment on above: Performed By: #### P T #### [facility] [address] [place] [address] Gynecological Assistant: Michael Méndez MD Hemoglobin A1Con 12-02-2021 Glucose [Mass/Vol] 189 mg/dL Normal [facility] Comment on above: Result Comment: The ADA and AACC recommend providing the estimated average glucose result to permit better patient understanding of their HBA1c result. Performed By: #### L IPR, GLYHGB, PSAS #### [address] [place], [place] [id number] Gynecological Assistant: Perico Murray MD #### CP, CDP #### [facility] [address] [place] [address] Gynecological Assistant: Michael Méndez MD HbA1c (Bld) [Mass fraction] 8.2 % High 4.0-6.0 [facility] Comment on above: Performed By: #### L IPR, GLYHGB, PSAS #### [facility] [address] [place], [place] [id number] Gynecological Assistant: Perico Murray MD #### CP, CDP #### [facility] [address] [place] [address] Gynecological Assistant: Michael Méndez MD CBC with Auto Differentialon 12-01-2021 Absolute Eos # 0.[address] [facility] Absolute Immature Granulocyte [facility] Absolute Lymph # 1.[address] [facility] Absolute Trimble # 0.71 [facility] Basophils Absolute [facility] Basophils/100 WBC (Bld) 0 % 0 [...] [facility] WBC (Bld) [#/Vol] 8.7 10*3/uL [facility] CBC with Diffon 12-01-2021 Abs. Basophil <0.03 Normal 0.00-0.20 [facility] [place] [facility] Comment on above: Performed By: #### L IPR, GLYHGB, PSAS #### [facility] [employer] [facility] [place] [address] Gynecological Assistant: Perico Murray MD #### CP, CDP #### [facility] [address] [place] [address] Gynecological Assistant: Michael Méndez MD Abs.Imm.Granulocyte <0.03 Normal 0.00-0.30 [facility] Comment on above: Performed By: #### L IPR, GLYHGB, PSAS #### [facility] [employer] [facility] [place] [address] Gynecological Assistant: Perico Murray MD #### CP, CDP #### [facility] [address] [place] [address] [place] [address] Gynecological Assistant: Michael Méndez MD Abs.Neutrophil (Seg) 6.02 k/uL Normal 1.50-8.10 [facility] Comment on above: Performed By: #### L IPR, GLYHGB, PSAS #### [address] [address] Gynecological Assistant: Perico Murray MD #### CP, CDP #### [facility] [address] [place] [address] Dr. [place] [phone] Gynecological Assistant: Michael Méndez MD Basophils/100 WBC (Bld) 0 % Normal 0-2 [facility] Comment on above: Performed By: #### L IPR, GLYHGB, PSAS #### [address] [address] Gynecological Assistant: Perico Murray MD #### CP, CDP #### [facility] [address] [place] [address] Dr. [place] [phone] Gynecological Assistant: Michael Méndez MD Eosinophils (Bld) [#/Vol] 0.06 10*3/uL Normal 0.00-0.44 [facility] Comment on above: Performed By: #### L IPR, GLYHGB, PSAS #### [address] [address] Gynecological Assistant: Perico Murray MD #### CP, CDP #### [facility] [address] [place] [address] Dr. [place] [phone] Gynecological Assistant: Michael Méndez MD Eosinophils/100 WBC (Bld) 1 % Normal 1-4 [facility] Comment on above: Performed By: #### L IPR, GLYHGB, PSAS #### [address] [address] Gynecological Assistant: Perico Murray MD #### CP, CDP #### [address] [place] [phone] Gynecological Assistant: Michael Méndez MD Erythrocyte distribution width (RBC) [Ratio] 12.4 % Normal 11.8-14.4 [facility] Comment on above: Performed By: #### L IPR, GLYHGB, PSAS #### [address] [address] Gynecological Assistant: Perico Murray MD #### CP, CDP #### [address] [place] [phone] Gynecological Assistant: Michael Méndez MD Hematocrit (Bld) [Volume fraction] 36.5 % Low 40.7-50.3 [facility] Comment on above: Performed By: #### L IPR, GLYHGB, PSAS #### [address] [address] Gynecological Assistant: Perico Murray MD #### CP, CDP #### [address] [place] [phone] Gynecological Assistant: Michael Méndez MD Hemoglobin (Bld) [Mass/Vol] 12.0 g/dL Low 13.0-17.0 [facility] Comment on above: Performed By: #### L IPR, GLYHGB, PSAS #### [address] [address] Gynecological Assistant: Perico Murray MD #### CP, CDP #### [address] [place] [phone] Gynecological Assistant: Michael Méndez MD Immature granulocytes/100 WBC (Bld) 0 % Normal 0 [facility] Comment on above: Performed By: #### L IPR, GLYHGB, PSAS #### [address] [id number] Gynecological Assistant: Perico Murray MD #### CP, CDP #### [address] [place] [address] Gynecological Assistant: Michael Méndez MD Lymphocytes (Bld) [#/Vol] 1.87 10*3/uL Normal 1.10-3.70 [facility] Comment on above: Performed By: #### L IPR, GLYHGB, PSAS #### [address] [id number] Gynecological Assistant: Perico Murray MD #### CP, CDP #### [address] [place] [address] Gynecological Assistant: Michael Méndez MD Lymphocytes/100 WBC (Bld) 22 % Low 24-43 [facility] Comment on above: Performed By: #### L IPR, GLYHGB, PSAS #### [address] [phone] Gynecological Assistant: Perico Murray MD #### CP, CDP #### [address] [place] [address] Gynecological Assistant: Michael Méndez MD MCH (RBC) [Entitic mass] 30.6 pg Normal 25.2-33.5 [facility] Comment on above: Performed By: #### L IPR, GLYHGB, PSAS #### [address] [phone] Gynecological Assistant: Perico Murray MD #### CP, CDP #### [address] [place] [address] Gynecological Assistant: Michael Méndez MD MCHC (RBC) [Mass/Vol] 32.9 g/dL Normal 28.4-34.[address] [facility] Comment on above: Performed By: #### L IPR, GLYHGB, PSAS #### [address] [address] Gynecological Assistant: Perico Murray MD #### CP, CDP #### [address] [place] [address] Gynecological Assistant: Michael Méndez MD MCV (RBC) [Entitic vol] 93.1 fL Normal 82.6-102.9 [facility] Comment on above: Performed By: #### L IPR, GLYHGB, PSAS #### [address] [address] Gynecological Assistant: Perico Murray MD #### CP, CDP #### [address] [place] [phone] Gynecological Assistant: Michael Méndez MD Monocytes (Bld) [#/Vol] 0.71 10*3/uL Normal 0.10-1.20 [facility] Comment on above: Performed By: #### L IPR, GLYHGB, PSAS #### [address] [address] Gynecological Assistant: Perico Murray MD #### CP, CDP #### [address] [place] [phone] Gynecological Assistant: Michael Méndez MD Monocytes/100 WBC (Bld) 8 % Normal 3-12 [facility] Comment on above: Performed By: #### L IPR, GLYHGB, PSAS #### [address] [address] Gynecological Assistant: Perico Murray MD #### CP, CDP #### [address] [place] [phone] Gynecological Assistant: Michael Méndez MD Neutrophil (Seg) 69 % High 36-65 [facility] Comment on above: Performed By: #### L IPR, GLYHGB, PSAS #### [address] [place] [address] Gynecological Assistant: Perico Murray MD #### CP, CDP #### [facility] [address] [place] [address] [place], [place] [phone] Gynecological Assistant: Michael Méndez MD NRBC Automated 0.0 per 100 WBC Normal 0.0 [facility] Comment on above: Performed By: #### L IPR, GLYHGB, PSAS #### [address] [address] Gynecological Assistant: Perico Murray MD #### CP, CDP #### [address] [place], [place] 2550083 Gynecological Assistant: Michael Méndez MD Platelet mean volume (Bld) [Entitic vol] 9.1 fL Normal 8.1-13.5 [facility] Comment on above: Performed By: #### L IPR, GLYHGB, PSAS #### [address] [address] Gynecological Assistant: Perico Murray MD #### CP, CDP #### [address] [place], [place] 7141283 Gynecological Assistant: Michael Méndez MD Platelets (Bld) [#/Vol] 204 10*3/uL Normal 138-453 [facility] Comment on above: Performed By: #### L IPR, GLYHGB, PSAS #### [address] [address] Gynecological Assistant: Perico Murray MD #### CP, CDP #### [address] [place], [place] [phone] Gynecological Assistant: Michael Méndez MD RBC (Bld) [#/Vol] 3.92 10*6/uL Low 4.21-5.77 [facility] Comment on above: Performed By: #### L IPR, GLYHGB, PSAS #### [address] [place], [place] [phone] Gynecological Assistant: Perico Murray MD #### CP, CDP #### [address] [place] [address] Gynecological Assistant: Michael Méndez MD WBC (Bld) [#/Vol] 8.7 10*3/uL Normal 3.5-11.3 [facility] Comment on above: Performed By: #### L IPR, GLYHGB, PSAS #### [address] [phone] Gynecological Assistant: Perico Murray MD #### CP, CDP #### [address] [place] [address] Gynecological Assistant: Michael Méndez MD Comp Metabolic Profon 2021 (cont.) [facility] Comment on above: Result Comment: Aver age GFR for 70 or more years old: 75 mL/min/1.73sq m Chronic Kidney Disease: <60 mL/min/1.73sq m Kidney failure: <15 mL/min/1.73sq m eGFR calculated using average adult body mass. Additional eGFR calculator available at: http://www.[employer]/multiple_crcl_2011.htm Performed By: #### L IPR, GLYHGB, PSAS #### [address] [address] Gynecological Assistant: Perico Murray MD #### CP, CDP #### [address] [place] [address] Gynecological Assistant: Michael Méndez MD Albumin [Mass/Vol] 3.7 g/dL Normal 3.5-5.2 [facility] Comment on above: Performed By: #### L IPR, GLYHGB, PSAS #### [address] [address] Gynecological Assistant: Perico Murray MD #### CP, CDP #### [facility] [address] [place] [address] Dr. [place], [place] [phone] Gynecological Assistant: Michael Méndez MD Albumin/Glob Ratio 1.4 Normal 1.0-2.5 [facility] Comment on above: Performed By: #### L IPR, GLYHGB, PSAS #### [address] [address] Gynecological Assistant: Perico Murray MD #### CP, CDP #### [address] [place] [phone] Gynecological Assistant: Michael Méndez MD Alkaline Phos 77 U/L Normal 40-129 [facility] [place] [facility] Comment on above: Performed By: #### L IPR, GLYHGB, PSAS #### [address] [address] Gynecological Assistant: Perico Murray MD #### CP, CDP #### [facility] [address] [place] [address] Dr. [place] [phone] Gynecological Assistant: Michael Méndez MD ALT [Catalytic activity/Vol] 15 U/L Normal 5-41 [facility] Comment on above: Performed By: #### L IPR, GLYHGB, PSAS #### [address] [address] Gynecological Assistant: Perico Murray MD #### CP, CDP #### [address] [place] [phone] Gynecological Assistant: Michael Méndez MD Anion gap [Moles/Vol] 11 mmol/L Normal 9-[address] [facility] Comment on above: Performed By: #### L IPR, GLYHGB, PSAS #### [address] [address] Gynecological Assistant: Perico Murray MD #### CP, CDP #### [facility] [address] [place], [place] 3096183 Gynecological Assistant: Michael Méndez MD AST [Catalytic activity/Vol] 14 U/L Normal <40 [facility] Comment on above: Performed By: #### L IPR, GLYHGB, PSAS #### [address] [address] Gynecological Assistant: Perico Murray MD #### CP, CDP #### [facility] [address] [place] [phone] Gynecological Assistant: Michael Méndez MD Bilirubin [Mass/Vol] 0.35 mg/dL Normal 0.3-1.2 [facility] Comment on above: Performed By: #### L IPR, GLYHGB, PSAS #### [address] [address] Gynecological Assistant: Perico Murray MD #### CP, CDP #### [facility] [address] [place] [address] Dr. [place] [phone] ( Gynecological Assistant: Michael Méndez MD BUN/CRE Ratio 18 Normal 9-20 [facility] [place] [facility] Comment on above: Performed By: #### L IPR, GLYHGB, PSAS #### [address] [address] Gynecological Assistant: Perico Murray MD #### CP, CDP #### [facility] [address] [place] [phone] Gynecological Assistant: Michael Méndez MD Calcium [Mass/Vol] 8.8 mg/dL Normal 8.6-10.4 [facility] Comment on above: Performed By: #### L IPR, GLYHGB, PSAS #### [address] [address] Gynecological Assistant: Perico Murray MD #### CP, CDP #### [facility] [address] [place], [place] [phone] Gynecological Assistant: Michael Méndez MD Chloride [Moles/Vol] 102 mmol/L Normal 98-107 [facility] Comment on above: Performed By: #### L IPR, GLYHGB, PSAS #### [address] [address] Gynecological Assistant: Perico Murray MD #### CP, CDP #### [facility] [address] [place], [place] 750[address]83 Gynecological Assistant: Michael Méndez MD CO2 [Moles/Vol] 25 mmol/L Normal 20-31 [facility] Comment on above: Performed By: #### L IPR, GLYHGB, PSAS #### [address] [address] Gynecological Assistant: Perico Murray MD #### CP, CDP #### [facility] [address] [place], [place] [phone] Gynecological Assistant: Michael Méndez MD Creatinine [Mass/Vol] 0.74 mg/dL Normal 0.70-1.[address] [facility] Comment on above: Performed By: #### L IPR, GLYHGB, PSAS #### [address] [address] Gynecological Assistant: Perico Murray MD #### CP, CDP #### [facility] [address] [place], [place] [phone] Gynecological Assistant: Michael Méndez MD GFR, Amer >60 Normal >60 [facility] Comment on above: Performed By: #### L IPR, GLYHGB, PSAS #### [address] [address] Gynecological Assistant: Perico Murray MD #### CP, CDP #### [address] [place], [place] [phone] Gynecological Assistant: Michael Méndez MD GFR,non Amer >60 Normal >60 [facility] Comment on above: Performed By: #### L IPR, GLYHGB, PSAS #### [address] [address] Gynecological Assistant: Perico Murray MD #### CP, CDP #### [address] [place], [place] 0653583 Gynecological Assistant: Michael Méndez MD Glucose [Mass/Vol] 182 mg/dL High 70-99 [facility] Comment on above: Performed By: #### L IPR, GLYHGB, PSAS #### [address] [address] Gynecological Assistant: Perico Murray MD #### CP, CDP #### [address] [place], [place] 8453683 Gynecological Assistant: Michael Méndez MD Potassium [Moles/Vol] 4.3 mmol/L Normal 3.7-5.[address] [facility] Comment on above: Performed By: #### L IPR, GLYHGB, PSAS #### [address] [address] Gynecological Assistant: Perico Murray MD #### CP, CDP #### [address] [place], [place] 2009[address] Gynecological Assistant: Michael Méndez MD Protein [Mass/Vol] 6.4 g/dL Normal 6.4-8.3 [facility] Comment on above: Performed By: #### L IPR, GLYHGB, PSAS #### [address] [address] Gynecological Assistant: Perico Murray MD #### CP, CDP #### [address] [place], [place] 6[address]83 Gynecological Assistant: Michael Méndez MD Sodium [Moles/Vol] 138 mmol/L Normal 135-144 [facility] Comment on above: Performed By: #### L IPR, GLYHGB, PSAS #### [address] [address] Gynecological Assistant: Perico Murray MD #### CP, CDP #### [address] [place], [place] [phone] Gynecological Assistant: Michael Méndez MD Staging: Normal [facility] Comment on above: Result Comment: Stag e 1: Some kidney damage normal GFR Stage 2: Mild kidney damage GFR 60-89 Stage 3: Moderate kidney damage GFR 30-59 Stage 4: Severe kidney damage GFR 15-29 Stage 5: Severe kidney damage GFR <15 ESRD - chronic treatment by dialysis or transplant Performed By: #### L IPR, GLYHGB, PSAS #### [address] [address] Gynecological Assistant: Perico Murray MD #### CP, CDP #### [address] [place] [address] Gynecological Assistant: Michael Méndez MD Urea nitrogen [Mass/Vol] 13 mg/dL Normal 8-23 [facility] Comment on above: Performed By: #### L IPR, GLYHGB, PSAS #### [address] [address] Gynecological Assistant: Perico Murray MD #### CP, CDP #### [address] [place] [address] Gynecological Assistant: Michael Méndez MD Comprehensive Metabolic Pane [facility] 12-01-2021 Albumin [Mass/Vol] 3.7 g/dL [...] (Bld) [Mass ratio] 18 9 - 20 [facility] Laboratory - Chemistry and C hemistry - challengeon 12-01-2021 GFR/1.73 sq M.predicted MDRD (S/P/Bld) [Vol rate/Area] [facility] Comment on above: Average GFR for 70 o r more years old: 75 mL/min/1.73sq m Chronic Kidney Disease: <60 mL/min/1.73sq m Kidney failure: <15 mL/min/1.73sq m eGFR calculated using average adult body mass. Additional eGFR calculator available at: http://www.[employer]/multiple_crcl_2012.htm Stage 1: Some kidney damage normal GFR Stage 2: Mild kidney damage GFR 60-89 Stage 3: Moderate kidney damage GFR 30-59 Stage 4: Severe kidney damage GFR 15-29 Stage 5: Severe kidney damage GFR <15 ESRD - chronic treatment by dialysis or transplant Lipid Panelon 12-01-2021 Cholesterol [Mass/Vol] 79 mg/dL NINF - 200 mg/dL [facility] Comment on above: Cholesterol Guidelines: <200 Desirable 200-240 Borderline >240 Undesirable Cholesterol in HDL [Mass/Vol] 30 mg/dL Low 40 - PINF mg/dL [facility] Comment on above: HDL Guidelines: <40 Undesirable 40-59 Borderline >59 Desirable Cholesterol in LDL [Mass/Vol] 29 mg/dL 0 - 130 mg/dL [facility] Comment on above: LDL Guidelines: <100 Desirable 100-129 Near to/above Desirable 130-159 Borderline >159 Undesirable Direct (measured) LDL and calculated LDL are not interchangeable tests. Cholesterol.total/Chol esterol in HDL [Mass ratio] 2.6 {ratio} NINF - 5 [facility] Interpretation and review of laboratory results Abnormal [facility] Triglyceride [Mass/Vol] 100 mg/dL NINF - 150 mg/dL [facility] Comment on above: Triglyceride Guidelines: <150 Desirable 150-199 Borderline 200-499 High >499 Very high Based on AHA Guidelines for fasting triglyceride, February 2012. [facility] Lipid Profileon 12-01-2021 Cholesterol [Mass/Vol] 79 mg/dL Normal <200 [facility] Comment on above: Result Comment: Cholesterol Guidelines: <200 Desirable 200-240 Borderline >240 Undesirable Performed By: #### L IPR, GLYHGB, PSAS #### [facility] [address] [place] [address] Gynecological Assistant: Perico Murray MD #### CP, CDP #### [facility] [address] [place] [address] Dr. [place], [place] [phone] Gynecological Assistant: Michael Méndez MD Cholesterol in HDL [Mass/Vol] 30 mg/dL Low >40 [facility] Comment on above: Result Comment: HDL Guidelines: <40 Undesirable 40-59 Borderline >59 Desirable Performed By: #### L IPR, GLYHGB, PSAS #### [facility] [address] [place] [address] Gynecological Assistant: Perico Murray MD #### CP, CDP #### [facility] [address] [place] [address] Dr. [place], [place] [phone] Gynecological Assistant: Michael Méndez MD Cholesterol in LDL [Mass/Vol] 29 mg/dL Normal 0-130 [facility] Comment on above: Result Comment: LDL Guidelines: <100 Desirable 100-129 Near to/above Desirable 130-159 Borderline >159 Undesirable Direct (measured) LDL and calculated LDL are not interchangeable tests. Performed By: #### L IPR, GLYHGB, PSAS #### [facility] [address] [place] [address] Gynecological Assistant: Perico Murray MD #### CP, CDP #### [facility] [address] [place] [address] [place]. [place], [place] [id number] Gynecological Assistant: Michael Méndez MD Cholesterol.total/Chol esterol in HDL [Mass ratio] 2.6 {ratio} Normal <5 [facility] Comment on above: Performed By: #### L IPR, GLYHGB, PSAS #### [facility] [address] [place] [address] Gynecological Assistant: Perico Murray MD #### CP, CDP #### [facility] [address] [place] [address] [address]. [place], [place] [id number] Gynecological Assistant: Michael Méndez MD Triglyceride [Mass/Vol] 100 mg/dL Normal <150 [facility] Comment on above: Result Comment: Triglyceride Guidelines: <150 Desirable 150-199 Borderline 200-499 High >499 Very high Based on AHA Guidelines for fasting triglyceride, February 2012. Performed By: #### L IPR, GLYHGB, PSAS #### [facility] [address] [place] [address] Gynecological Assistant: Perico Murray MD #### CP, CDP #### [address] [place] [address] Gynecological Assistant: Michael Méndez MD PSA Screeningon 12-01-2021 [facility] PSA, Screeningon 12-01-2021 Prostatic Spec. Ag 1.23 ng/mL Normal <4.1 [facility] Comment on above: Result Comment: The [employer] ECLIA assay is used. Results obtained with different assay methods cannot be used interchangeably. Performed By: #### L IPR, GLYHGB, PSAS #### [facility] [employer] [address] [place] [address] Gynecological Assistant: Perico Murray MD #### CP, CDP #### [address] [place] [address] Gynecological Assistant: Michael Méndez MD Otolaryngology Office/Clinic Noteon 07-05-2021 [...] smoker, quit (more content not included)... Normal [facility] Otolaryngology Office/Clinic Noteon 06-14-2021 Otolaryngology Office/Clinic [...] bolster removed. Left FTSG with good take. Bahama incision healing well. Nose: External nasal dorsum [...] 500 unit (more content not included)... Normal [facility] Operative Reporton 2 Operative Report Operative [...] wound defe (more content not included)... Normal [facility] POC Glucose Randomon 022 Glucose [Mass/Vol] 154 mg/dL High 70-99 [facility] Comment on above: Performed By: #### C [id number] #### [address] [address] Glucose [Mass/Vol] 184 mg/dL High 70-99 [facility] Comment on above: Performed By: #### C [id number] #### [address] [address] Glucose [Mass/Vol] 207 mg/dL High 70-99 [facility] Comment on above: Performed By: #### C [id number] #### [address] 06-08-2021 Employed in healthcare? Unknown Normal [facility] Comment on above: Performed By: #### P TINR #### [address] [address] Group care resident? Unknown Normal [facility] Comment on above: Performed By: #### P TINR #### [address] [address] In ICU? Unknown Normal [facility] Comment on above: Performed By: #### P TINR #### [address] [address] status? Unknown Normal [facility] Comment on above: Performed By: #### P TINR #### [address] [address] SARS-CoV-2 (COVID-19) RNA RAYMON+probe Ql (Unsp spec) Negative Normal Negative [facility] Comment on above: Result Comment: Nega [...] COVID-19. ADDITIONAL INFORMATION: Testing performed on the [employer] using the SARS-CoV-2 Antigen test. Results are for the identification of SARS-CoV-2 nucleocapsid antigen. The [employer] SARS-CoV-2 Antigen test can detect both viable [...] Administration?s Emergency Use Authorization. HCP Fact Sheet: https://www.fda.gov/media/927471/download Patient Fact Sheet: https://www.fda.gov/media/491110/download Performed By: #### P TINR #### [address] [address] SARS-CoV-2 (COVID-19) RNA RAYMON+probe Ql (Unsp spec) Unknown Normal [facility] Comment on above: Performed By: #### P TINR #### [address] [address] Symptomatic as defined by CDC? Unknown Normal [facility] Comment on above: Performed By: #### P TINR #### [address] [address] .eGFRon 05-27-2021 eGFR Non-AA >60 Normal >=60 [facility] Comment on above: Result Comment: [...] years Performed By: #### E GFR #### [place] [address] eGFR AA >60 Normal >=60 [facility] Comment on above: Result Comment: See comment. Performed By: #### E GFR #### [address] [address] Basic Metabolic Profileon Anion gap [Moles/Vol] 13 mmol/L Normal 7-17 [facility] Comment on above: Performed By: #### P TINR #### [place] [id number] Calcium [Mass/Vol] 9.0 mg/dL Normal 8.5-10.3 [facility] Comment on above: Performed By: #### P TINR #### [place] [id number] Chloride [Moles/Vol] 103 mmol/L Normal 98-110 [facility] Comment on above: Performed By: #### P TINR #### [address] [address] CO2 [Moles/Vol] 26 mmol/L Normal 22-32 [facility] Comment on above: Performed By: #### P TINR #### [address] [address] Creatinine [Mass/Vol] 0.91 mg/dL Normal 0.61-1.24 [facility] Comment on above: Performed By: #### P TINR #### [address] [address] Glucose [Mass/Vol] 193 mg/dL High 70-99 [facility] Comment on above: Performed By: #### P TINR #### [address] [address] Potassium [Moles/Vol] 3.9 mmol/L Normal 3.4-4.8 [facility] Comment on above: Performed By: #### P TINR #### [address] [address] Sodium [Moles/Vol] 138 mmol/L Normal 133-142 [facility] Comment on above: Performed By: #### P TINR #### [address] [address] Urea nitrogen [Mass/Vol] 14 mg/dL Normal 8-26 [facility] Comment on above: Performed By: #### P TINR #### [address] [address] Urea nitrogen/Creatinine [Mass ratio] 15.4 mg/mg Normal 10.0-20.0 [facility] Comment on above: Performed By: #### P TINR #### [address] [address] CBC w/ Diffon 05-27-2021 Erythrocyte distribution width (RBC) [Ratio] 12.8 % Normal 11.6-14.8 [facility] Comment on above: Performed By: #### C BC #### [address] [address] Hematocrit (Bld) [Volume fraction] 42.6 % Normal 41.0-53.0 [facility] Comment on above: Performed By: #### C BC #### [address] [address] Hemoglobin (Bld) [Mass/Vol] 14.4 g/dL Normal 13.5-17.5 [facility] Comment on above: Performed By: #### C BC #### [address] [address] MCH (RBC) [Entitic mass] 30.2 pg Normal 27.0-35.0 [facility] Comment on above: Performed By: #### C BC #### [address] [address] MCHC 33.7 % Normal 31.0-37.0 [facility] Comment on above: Performed By: #### C BC #### [address] [address] MCV (RBC) [Entitic vol] 89.8 fL Normal 80.0-100.0 [facility] Comment on above: Performed By: #### C BC #### [address] [address] Platelet 190 x10*3/mcL Normal 150-350 [facility] Comment on above: Performed By: #### C BC #### [address] [address] Platelet mean volume (Bld) [Entitic vol] 6.7 fL Normal 6.7-10.6 [facility] Comment on above: Performed By: #### C BC #### [address] [address] RBC 4.75 x10*6/mcL Normal 4.30-5.80 [facility] Comment on above: Performed By: #### C BC #### [address] [address] WBC 7.7 x10*3/mcL Normal 4.5-11.0 [facility] Comment on above: Performed By: #### C BC #### [address] [address] Diff Autoon 05-27-2021 Baso Absolute 0.0 x10*3/mcL Normal 0.0-0.2 [facility] Comment on above: Performed By: #### P TINR #### [address] [address] Basophils/100 WBC (Bld) 0.1 % Normal 0.0-1.2 [facility] Comment on above: Performed By: #### P TINR #### [address] [address] Eos Absolute 0.1 x10*3/mcL Normal 0.0-0.4 [facility] Comment on above: Performed By: #### P TINR #### [address] [address] Eosinophils/100 WBC (Bld) 0.7 % Normal 0.0-6.1 [facility] Comment on above: Performed By: #### P TINR #### [address] [address] Lymph Absolute 2.1 x10*3/mcL Normal 1.0-4.8 [facility] Comment on above: Performed By: #### P TINR #### [address] [address] Lymphocytes/100 WBC (Bld) 26.7 % Low 27.2-40.8 [facility] Comment on above: Performed By: #### P TINR #### [address] [address] Trimble Absolute 0.6 x10*3/mcL Normal 0.3-1.1 [facility] Comment on above: Performed By: #### P TINR #### [address] [address] Monocytes/100 WBC (Bld) 7.9 % Normal 4.7-13.9 [facility] Comment on above: Performed By: #### P TINR #### [address] [address] Neutro Absolute 5.0 x10*3/mcL Normal 1.8-7.7 [facility] Comment on above: Performed By: #### P TINR #### [address] [address] Neutro Auto 64.6 % Normal 47.2-70.8 [facility] Comment on above: Performed By: #### P TINR #### [address] [address] Hgb A1con 05-27-2021 Glucose [Mass/Vol] 192 mg/dL High 68-114 [facility] Comment on above: Result Comment: Math ematical Calc approx. The mean gluc equivalency of A1c Performed By: #### P TINR #### [address] [address] Hgb A1c 8.3 % A1c High 4.0-5.6 [facility] Comment on above: Result Comment: Refe rence Range: 4.0 - 5.6 % Normal 5.7 - 6.4 % Pre-Diabetes > 6.5 % Diabetes Performed By: #### P TINR #### [address] [address] PTon 05-27-2021 INR Coag (PPP) [Relative time] 1.1 {INR} Normal <=3.5 [facility] Comment on above: Result Comment: INR has no normal range. INR Therapeutic range is: 2.0-3.0 (AF, CVA, TIAs, DVT prophylaxis, acute DVT) 2.5-3.5 ([facility], recurrent thrombosis/emboli) Performed By: #### P TINR #### [address] [address] PT Coag (PPP) [Time] 11.3 s Normal 9.4-12.1 [facility] Comment on above: Performed By: #### P TINR #### [facility] [address] [place] [address] PTTon 05-27-2021 aPTT Coag (Bld) [Time] 22.5 s Normal 20.2-27.0 [facility] Comment on above: Performed By: #### P TT #### [facility] [address] [place] [address] XR Chest 2 Viewson 2 XR Chest [...] Electronically Signed in Other Vendor System) Normal [facility] Otolaryngology Office/Clinic Noteon 05-19-2021 Otolaryngology Office/Clinic [...] Villagomez MD, Chi 05/19/21 15:56 EST Normal [facility] CBC Auto DifferentialOrdered By: Mary Beth Pitts on 09-27-2020 Absolute Eos # 0.04 [facility] Work Phone: Absolute Immature Granulocyte 0.04 [facility] Work Phone: Absolute Lymph # 2.63 [facility] Work Phone: Absolute Trimble # 0.68 [facility] Work Phone: Basophils (Bld) [#/Vol] 10*3/uL [employer] Work Phone: Basophils/100 WBC (Bld) 0 % 0 - 2 % [employer] I Phone: Differential Type NOT REPORTED [employer] I Phone: Eosinophils/100 WBC (Bld) 0 % Low 1 - 4 % [employer] Work Phone: Hematocrit (Bld) [Volume fraction] 36.8 % Low 40.7 - 50.3 % [employer] I Phone: Hemoglobin.gastrointes tinal spec 1 Ql (Stl) 11.7 g/dL Low 13.0 - 17.0 g/dL [employer] I Phone: Immature granulocytes/100 WBC (Bld) 0 % 0 [employer] I Phone: Interpretation and review of laboratory results Abnormal [employer] I Phone: Lymphocytes/100 WBC (Bld) 27 % 24 - 43 % [employer] I Phone: MCH (RBC) [Entitic mass] 30.2 pg 25.2 - 33.5 pg [employer] I Phone: MCHC (RBC) [Mass/Vol] 31.8 g/dL 28.4 - 34.8 g/dL [employer] I Phone: MCV (RBC) [Entitic vol] 95.1 fL 82.6 - 102.9 fL [employer] I Phone: Monocytes/100 WBC (Bld) 7 % 3 - 12 % [employer] I Phone: NRBC Automated 0.0 0.0 per 100 WBC [employer] I Phone: Platelet distribution width (Bld) [Ratio] 13.5 % 11.8 - 14.4 % [employer] I Phone: Platelet Estimate NOT REPORTED [employer] Work Phone: Platelet mean volume (Bld) [Entitic vol] 8.7 fL 8.1 - 13.5 fL [employer] Work Phone: Platelets (Bld) [#/Vol] 243 10*3/uL [employer] Work Phone: RBC (Bld) [#/Vol] 3.87 10*6/uL Low 4.21 - 5.77 m/uL [employer] Work Phone: RBC (Bld) [#/Vol] NOT REPORTED [employer] Work Phone: Segmented neutrophils/100 WBC (Bld) 66 % High 36 - 65 % [employer] Work Phone: Segs Absolute 6.35 [employer] Work Phone: WBC (Bld) [#/Vol] 9.8 10*3/uL [employer] Work Phone: WBC (Bld) [#/Vol] NOT REPORTED [employer] Work Phone: [employer] Work Phone: TIBIA FIBULA LEFT 04-28-20 20 TIBIA FIBULA LEFT [facility] Department of Radiology [address] [place] [id number] Patient Name: MARILU DAN : 1950 [...] bridging. Electronically signed: Terry Diaz. Transcribed by: [email or web address], User Resident: Electronically Signed by: TERRY DIAZ @ 04/29/2020 01:11 PM Normal [facility] Comment on above: Order Comment: Hardw are Evaluation TIBIA FIBULA LEFT 03-29-20 20 TIBIA FIBULA LEFT [facility] Department of Radiology [address] [place] [phone] Patient Name: MARILU DAN : 1950 [...] Electronically signed: Katiuska Mo M.D.. Transcribed by: [email or web address], User Resident: Electronically Signed by: KATIUSKA MO @ 03/29/2020 01:27 PM Normal [facility] Comment on above: Order Comment: Hardw are Evaluation TIBIA FIBULA LEFTon 02-23-20 20 TIBIA FIBULA LEFT [facility] Department of Radiology [address] [place] [phone] Patient Name: MARILU DAN : 1950 Sex: M Age: Race: White Pt. Location: 84 Patient Status: O Ordered Date: 02/23/2020 9:40:00 [...] Electronically signed: Mary Jane Pendleton. Transcribed by: [email or web address], User Resident: Electronically Signed by: MARY JANE PENDLETON @ 02/23/2020 09:46 AM Normal [facility] Comment on above: Order Comment: Hardw are Evaluation VITAMIN D 25-HYDROXYon 02-22 VITAMIN D 25-OH 31.6 ng/mL Normal 30.0-80.0 [facility] Comment on above: Result Comment: >80. 0 Toxicity possible Performed By: #### 3 0728 ####[facility] [place] [address], [facility] BASIC METABOLIC PANELon Calcium [Mass/Vol] 8.7 mg/dL Normal 8.6-10.3 [facility] Comment on above: Order Comment: No: D o not add to previous draw Performed By: #### 8 6002 #### [facility] [address] [place] [address], [place] Chloride [Moles/Vol] 103 mmol/L Normal 98-107 [facility] Comment on above: Order Comment: No: D o not add to previous draw Performed By: #### 8 6002 #### [facility] [address] [place] [address], [place] CO2 [Moles/Vol] 25 mmol/L Normal 21-31 [facility] Comment on above: Order Comment: No: D o not add to previous draw Performed By: #### 8 [id number] #### [facility] [address] [place] [address], [place] Creatinine [Mass/Vol] 0.72 mg/dL Normal 0.70-1.30 [facility] Comment on above: Order Comment: No: D o not add to previous draw Performed By: #### 8 6002 #### [facility] [address] [place] [address], [place] GFR/1.73 sq M predicted among blacks MDRD (S/P/Bld) [Vol rate/Area] mL/min/{1.73_m2} Normal >60 [facility] Comment on above: Order Comment: No: D o not add to previous draw Result Comment: Calc ulation may not be valid for patients over 70 years Performed By: #### 8 6002 #### [facility] [address] [place] [address], [place] GFR/1.73 sq M predicted among non-blacks MDRD (S/P/Bld) [Vol rate/Area] mL/min/{1.73_m2} Normal >60 [facility] Comment on above: Order Comment: No: D o not add to previous draw Result Comment: Calc ulation may not be valid for patients over 70 years Performed By: #### 8 6002 #### [facility] [address] [place] [address], [place] Glucose [Mass/Vol] 178 mg/dL High 70-100 [facility] Comment on above: Order Comment: No: D o not add to previous draw Performed By: #### 8 6002 #### [facility] [address] [place] [address], [place] Potassium [Moles/Vol] 4.2 mmol/L Normal 3.5-5.1 [facility] Comment on above: Order Comment: No: D o not add to previous draw Performed By: #### 8 6002 #### [facility] [address] [place] [address], [place] Sodium [Moles/Vol] 136 mmol/L Normal 136-145 [facility] Comment on above: Order Comment: No: D o not add to previous draw Performed By: #### 8 6002 #### [facility] [address] [place] [address], [place] Urea nitrogen [Mass/Vol] 14 mg/dL Normal 7-25 [facility] Comment on above: Order Comment: No: D o not add to previous draw Performed By: #### 8 6002 #### [facility] [address] [place] [address], [place] CBC COMPLETE BLOOD COUNTon - Erythrocyte distribution width (RBC) [Ratio] 12.3 % Normal 11.5-15.0 [facility] Comment on above: Order Comment: No: D o not add to previous draw Performed By: #### 8 [id number] #### [facility] [address] [place] [address], [place] Hematocrit (Bld) [Volume fraction] 30.8 % Low 39.0-50.0 [facility] Comment on above: Order Comment: No: D o not add to previous draw Performed By: #### 8 6002 #### [facility] [address] [place] [address], [place] Hemoglobin (Bld) [Mass/Vol] 10.6 g/dL Low 13.0-17.0 [facility] Comment on above: Order Comment: No: D o not add to previous draw Performed By: #### 8 6002 #### [facility] [address] [place] [address], [facility] MCH (RBC) [Entitic mass] 30.3 pg Normal 27.0-33.0 [facility] Comment on above: Order Comment: No: D o not add to previous draw Performed By: #### 8 6002 #### [facility] [address] [place] [address], [facility] MCHC (RBC) [Mass/Vol] 34.4 g/dL Normal 32.0-35.0 [facility] Comment on above: Order Comment: No: D o not add to previous draw Performed By: #### 8 6002 #### [facility] [address] [place] [address], [facility] MCV (RBC) [Entitic vol] 88.0 fL Normal 82.0-98.0 [facility] Comment on above: Order Comment: No: D o not add to previous draw Performed By: #### 8 6002 #### [facility] [address] [place] [address], [facility] Nucleated RBC/100 WBC (Bld) [Ratio] 0 % Normal 0-0 [facility] Comment on above: Order Comment: No: D o not add to previous draw Performed By: #### 8 6002 #### [facility] [address] [address], [facility] PLAT CNT 153 10*3/uL Normal 150-400 [facility] Comment on above: Order Comment: No: D o not add to previous draw Performed By: #### 8 6002 #### [facility] [address] [place] [address], [facility] RBC (Bld) [#/Vol] 3.50 10*6/uL Low 4.20-5.70 [facility] Comment on above: Order Comment: No: D o not add to previous draw Performed By: #### 8 6002 #### [facility] [address] WBC (Bld) [#/Vol] 8.11 10*3/uL Normal 4.00-10.60 [facility] Comment on above: Order Comment: No: D o not add to previous draw Performed By: #### 8 6002 #### [facility] [address] Operative Reporton 0 Operative Report MR#: [id number] I [facility] Pt. Name: Marilu Dan Room #: 3AB [id number] Discharge Date: Birthdate: 1950 OPERATIVE REPORT DATE [...] a 69-year-old male, who initially presented to [facility] Emergency Department with chief complaint of left [...] 2 locking screws distally using freehand perfect venetie technique. After the placement of all interlocking [...] Lopez MD Date Trans: 02/14/2020 11:08 A/gomez [id number] Normal [facility] POC GLUCOSE LABon 02-14-2020 Glucose [Mass/Vol] 228 mg/dL High 70-100 [facility] Comment on above: Performed By: #### 8 5499 #### [facility] [address] [place] [address], [facility] Glucose [Mass/Vol] 169 mg/dL High 70-100 [facility] Comment on above: Performed By: #### 8 5499 #### [facility] [address] [place] [address], [place] *MRSA/MSSA DNA NASALon 02-12 *MRSA/MSSA DNA NASAL Clinical Report: (D ) Specimen/Source: NASAL SWAB/NARES Collected: 02/13/2020 14:23 Status: Final Last Updated: 02/17/2020 12:22 MSSA DNA (Final) Negative MRSA DNA (Final) Negative Normal [facility] Comment on above: Performed By: #### 3 1595 #### [facility] [address] [place] [address], [facility] BASIC METABOLIC PANELon Calcium [Mass/Vol] 9.2 mg/dL Normal 8.6-10.3 [facility] Comment on above: Order Comment: No: D o not add to previous draw Performed By: #### 8 5499 #### [facility] [address] [place] [address], [place] Chloride [Moles/Vol] 102 mmol/L Normal 98-107 [facility] Comment on above: Order Comment: No: D o not add to previous draw Performed By: #### 8 5499 #### [facility] [address] [place] [address], [place] CO2 [Moles/Vol] 29 mmol/L Normal 21-31 [facility] Comment on above: Order Comment: No: D o not add to previous draw Performed By: #### 8 [id number] #### [facility] [address] [place] [address], [place] Creatinine [Mass/Vol] 0.71 mg/dL Normal 0.70-1.30 [facility] Comment on above: Order Comment: No: D o not add to previous draw Performed By: #### 8 5499 #### [facility] [address] [place] [address], [place] GFR/1.73 sq M predicted among blacks MDRD (S/P/Bld) [Vol rate/Area] mL/min/{1.73_m2} Normal >60 [facility] Comment on above: Order Comment: No: D o not add to previous draw Result Comment: Calc ulation may not be valid for patients over 70 years Performed By: #### 8 [id number] #### [facility] [address] [place] [address], [place] GFR/1.73 sq M predicted among non-blacks MDRD (S/P/Bld) [Vol rate/Area] mL/min/{1.73_m2} Normal >60 [facility] Comment on above: Order Comment: No: D o not add to previous draw Result Comment: Calc ulation may not be valid for patients over 70 years Performed By: #### 8 [id number] #### [facility] [address] [place] [address], [place] Glucose [Mass/Vol] 160 mg/dL High 70-100 [facility] Comment on above: Order Comment: No: D o not add to previous draw Performed By: #### 8 [id number] #### [facility] [address] [place] [address], [place] Potassium [Moles/Vol] 4.0 mmol/L Normal 3.5-5.1 [facility] Comment on above: Order Comment: No: D o not add to previous draw Performed By: #### 8 [id number] #### [facility] [address] [place] [address], [place] Sodium [Moles/Vol] 136 mmol/L Normal 136-145 [facility] Comment on above: Order Comment: No: D o not add to previous draw Performed By: #### 8 [id number] #### [facility] [address] [place] [address], [place] Urea nitrogen [Mass/Vol] 13 mg/dL Normal 7-25 [facility] Comment on above: Order Comment: No: D o not add to previous draw Performed By: #### 8 [id number] #### [facility] [address] [place] [address], [place] CBC COMPLETE BLOOD COUNTon 1 0-02-2020 Erythrocyte distribution width (RBC) [Ratio] 12.4 % Normal 11.5-15.0 [facility] [facility] Comment on above: Order Comment: No: D o not add to previous draw Performed By: #### 8 6002 #### [facility] [address] [place] [address], [facility] Hematocrit (Bld) [Volume fraction] 37.6 % Low 39.0-50.0 [facility] Comment on above: Order Comment: No: D o not add to previous draw Performed By: #### 8 6002 #### [facility] [address] [place] [address], [facility] Hemoglobin (Bld) [Mass/Vol] 12.8 g/dL Low 13.0-17.0 [facility] Comment on above: Order Comment: No: D o not add to previous draw Performed By: #### 8 6002 #### [facility] [address] [place] [address], [facility] MCH (RBC) [Entitic mass] 30.1 pg Normal 27.0-33.0 [facility] Comment on above: Order Comment: No: D o not add to previous draw Performed By: #### 8 6002 #### [facility] [address] [place] [address], [facility] MCHC (RBC) [Mass/Vol] 34.0 g/dL Normal 32.0-35.0 [facility] Comment on above: Order Comment: No: D o not add to previous draw Performed By: #### 8 6002 #### [facility] [address] [place] [id number], [facility] MCV (RBC) [Entitic vol] 88.5 fL Normal 82.0-98.0 [facility] Comment on above: Order Comment: No: D o not add to previous draw Performed By: #### 8 6002 #### [facility] [address] [place] [id number], [facility] Nucleated RBC/100 WBC (Bld) [Ratio] 0 % Normal 0-0 [facility] Comment on above: Order Comment: No: D o not add to previous draw Performed By: #### 8 6002 #### [facility] [address] [place] [id number], [facility] PLAT CNT 180 10*3/uL Normal 150-400 [facility] Comment on above: Order Comment: No: D o not add to previous draw Performed By: #### 8 6002 #### [facility] [address] [place] [address], [facility] RBC (Bld) [#/Vol] 4.25 10*6/uL Normal 4.20-5.70 [facility] Comment on above: Order Comment: No: D o not add to previous draw Performed By: #### 8 6002 #### [facility] [address] [place] [address], [facility] WBC (Bld) [#/Vol] 7.58 10*3/uL Normal 4.00-10.60 [facility] Comment on above: Order Comment: No: D o not add to previous draw Performed By: #### 8 6002 #### [facility] [address] [facility] [address], [facility] MAGNESIUM BLOODon 02-13-2020 Magnesium [Mass/Vol] 2.0 mg/dL Normal 1.9-2.7 [facility] Comment on above: Order Comment: No: D o not add to previous draw Performed By: #### 8 5499 #### [facility] [address] [place] [address], [facility] PHOSPHORUS BLOODon 0 Phosphate [Mass/Vol] 3.6 mg/dL Normal 2.5-5.0 [facility] Comment on above: Order Comment: No: D o not add to previous draw Performed By: #### 8 5499 #### [facility] [address] [place] [address], [place] POC GLUCOSE LABon 02-13-2020 Glucose [Mass/Vol] 176 mg/dL High 70-100 [facility] Comment on above: Performed By: #### 8 5499 #### [facility] [address] [place] [address], [facility] Glucose [Mass/Vol] 134 mg/dL High 70-100 [facility] Comment on above: Performed By: #### 8 5499 #### [facility] [address] [place] [address], [facility] Glucose [Mass/Vol] 138 mg/dL High 70-100 [facility] Comment on above: Performed By: #### 8 5499 #### [facility] [address] [place] [address], [place] Glucose [Mass/Vol] 143 mg/dL High 70-100 [facility] Comment on above: Performed By: #### 8 5499 #### [facility] [address] [place] [address], [place] Glucose [Mass/Vol] 163 mg/dL High 70-100 [facility] Comment on above: Performed By: #### 8 5499 #### [facility] [address] [place] [address], [facility] TIBIA FIBULA LEFTon 02-13-20 20 TIBIA FIBULA LEFT [facility] Department of Radiology [address] [place] [id number] Patient Name: MARILU DAN : 1950 Sex: M Age: Race: White Pt. Location: [address] [place] [address] Patient Status: I Ordered Date: 02/13/2020 8:00:00 [...] fracture. Electronically signed: Catalina Pastrana. Transcribed by: [email or web address], User Resident: Electronically Signed by: CATALINA PASTRANA @ 02/13/2020 09:09 PM Normal [facility] Comment on above: Order Comment: Hardw are Evaluation TIBIA FIBULA LEFT [facility] Department of Radiology [address] [place] [phone] Patient Name: MARILU DAN : 1950 Sex: M Age: Race: White Pt. Location: [id number] Patient Status: I Ordered Date: 02/13/2020 7:15:00 [...] review. Electronically signed: Catalina Pastrana. Transcribed by: [email or web address], User Resident: Electronically Signed by: CATALINA PASTRANA @ 02/13/2020 09:12 PM Normal [facility] Comment on above: Order Comment: Hardw are Evaluation *SARS-CoV-2 COVID-19on 02-11 [id number] Not Detected Normal Not Detected [facility] Comment on above: Order Comment: The A ptima SARS-CoV-2 assay is a nucleic acid amplification test intended for the qualitative detection of RNA from SARS-CoV-2 isolated and purified from nasopharyngeal (CORPORATE CONTROLLER),oropharyngeal (OP), nasal swab, sputum, and bronchoalveolar lavage (BAL) specimens from patients with signs and symptoms of infection who are suspected of COVID-19. Results are for the identification of SARS-CoV-2 RNA. The SARS-CoV-2 RNA is generally detectable during the acute phase of infection. The Aptima SARS-CoV-2 Assay on the [place] [employer] [place] [employer] system is intended for use by laboratory personnel specifically instructed and trained in the operation of the [place] [employer] [place] [employer] system. The Aptima SARS-CoV-2 assay is [...] information. Performed By: #### 3 1792 #### [facility] [address] APTTon 02-12-2020 aPTT Coag (Bld) [Time] 27.0 s Normal 25.0-35.0 Th e [facility] Comment on above: Order Comment: No: [...] PURPOSE. Performed By: #### 8 5499 #### [facility] [address] [facility]. [address] BASIC METABOLIC PANELon 10-0 Calcium [Mass/Vol] 9.0 mg/dL Normal 8.6-10.3 [facility] Comment on above: Order Comment: No: D o not add to previous draw Performed By: #### 4 1000, 06626, 75373, 06322 ####[facility] [place] [address], [facility] Chloride [Moles/Vol] 100 mmol/L Normal 98-107 [facility] Comment on above: Order Comment: No: D o not add to previous draw Performed By: #### 4 1000, 19179, 66330, 55352 ####[facility] [place] [address], [place] CO2 [Moles/Vol] 26 mmol/L Normal 21-31 [facility] Comment on above: Order Comment: No: D o not add to previous draw Performed By: #### 4 1000, 47042, 94463, 70860 ####[facility] [place] [address], [facility] Creatinine [Mass/Vol] 0.80 mg/dL Normal 0.70-1.30 [facility] Comment on above: Order Comment: No: D o not add to previous draw Performed By: #### 4 1000, 08964, 68409, 43980 ####[facility] [place] [address], [facility] GFR/1.73 sq M predicted among blacks MDRD (S/P/Bld) [Vol rate/Area] mL/min/{1.73_m2} Normal >60 [facility] Comment on above: Order Comment: No: D o not add to previous draw Result Comment: Calc ulation may not be valid for patients over 70 years Performed By: #### 4 1000, 32750, 93351, 71221 ####[facility] [place] [address], [facility] GFR/1.73 sq M predicted among non-blacks MDRD (S/P/Bld) [Vol rate/Area] mL/min/{1.73_m2} Normal >60 [facility] Comment on above: Order Comment: No: D o not add to previous draw Result Comment: Calc ulation may not be valid for patients over 70 years Performed By: #### 4 1000, 27334, 35818, 78903 ####[facility] [place] [address], [facility] Glucose [Mass/Vol] 193 mg/dL High 70-100 [facility] Comment on above: Order Comment: No: D o not add to previous draw Performed By: #### 4 1000, 38735, 34441, 06013 ####[facility] Potassium [Moles/Vol] 4.2 mmol/L Normal 3.5-5.1 [facility] Comment on above: Order Comment: No: D o not add to previous draw Performed By: #### 4 1000, 90932, 35068, 12526 ####[facility] [facility].[address] Sodium [Moles/Vol] 132 mmol/L Low 136-145 [facility] Comment on above: Order Comment: No: D o not add to previous draw Performed By: #### 4 1000, 40110, 21534, 71162 ####[facility] Urea nitrogen [Mass/Vol] 14 mg/dL Normal 7-25 [facility] Comment on above: Order Comment: No: D o not add to previous draw Performed By: #### 4 1000, 95779, 75540, 94036 ####[facility] [facility].[address] CBC W/DIFFon 02-12-2020 ABS BASOPHILS 0.0 10*3/uL Normal 0.0-0.2 [facility] Comment on above: Performed By: #### 8 2231 #### [facility] [address] [place] [address], [facility] ABS IMM GRANS 0.1 10*3/uL Normal 0.0-0.2 [facility] Comment on above: Performed By: #### 8 9779 #### [facility] [address] [place] [address], [facility] ABS NEUTROPHILS 9.8 10*3/uL High 1.6-7.6 [facility] Comment on above: Performed By: #### 8 0679 #### [facility] [address] [place] [address], [facility] Basophils/100 WBC (Bld) 0.1 % Normal 0.0-1.0 [facility] Comment on above: Performed By: #### 8 5499 #### [facility] [address] [place] [address], [facility] Eosinophils (Bld) [#/Vol] 0.0 10*3/uL Normal 0.0-0.5 [facility] Comment on above: Performed By: #### 8 5499 #### [facility] [address] [place] [address], [facility] Eosinophils/100 WBC (Bld) 0.1 % Normal 0.0-6.0 [facility] Comment on above: Performed By: #### 8 5499 #### [facility] [address] [facility] Erythrocyte distribution width (RBC) [Ratio] 12.0 % Normal 11.5-15.0 [facility] Comment on above: Performed By: #### 8 5499 #### [facility] [address] [facility] [address] Hematocrit (Bld) [Volume fraction] 38.0 % Low 39.0-50.0 [facility] Comment on above: Performed By: #### 8 5499 #### [facility] [address] [facility] Hemoglobin (Bld) [Mass/Vol] 13.0 g/dL Normal 13.0-17.0 [facility] Comment on above: Performed By: #### 8 5499 #### [facility] [address] [place] [address], [facility] IMMATURE GRANS 0.5 % Normal 0.0-1.0 [facility] Comment on above: Performed By: #### 8 5499 #### [facility] [address] [place] [address], [facility] Lymphocytes (Bld) [#/Vol] 1.3 10*3/uL Normal 1.2-4.0 [facility] Comment on above: Performed By: #### 8 5499 #### [facility] [address] Lymphocytes/100 WBC (Bld) 11.1 % Low 20.0-45.0 [facility] Comment on above: Performed By: #### 8 5499 #### [facility] [address] [facility]. [address] MCH (RBC) [Entitic mass] 30.0 pg Normal 27.0-33.0 [facility] Comment on above: Performed By: #### 8 5499 #### [facility] [address] MCHC (RBC) [Mass/Vol] 34.2 g/dL Normal 32.0-35.0 [facility] Comment on above: Performed By: #### 8 5499 #### [facility] [address] MCV (RBC) [Entitic vol] 87.8 fL Normal 82.0-98.0 [facility] Comment on above: Performed By: #### 8 5499 #### [facility] [address] Monocytes (Bld) [#/Vol] 0.9 10*3/uL Normal 0.1-1.0 [facility] Comment on above: Performed By: #### 8 5499 #### [facility] [address] MONOS 7.1 % Normal 5.0-12.0 [facility] Comment on above: Performed By: #### 8 5499 #### [facility] [address] [facility] [address] Neutrophils/100 WBC (Bld) 81.1 % High 40.0-72.0 [facility] Comment on above: Performed By: #### 8 5499 #### [facility] [address] [place] [address], [facility] Nucleated RBC/100 WBC (Bld) [Ratio] 0 % Normal 0-0 [facility] Comment on above: Performed By: #### 8 5499 #### [facility] [address] [place] [address], [facility] PLAT CNT 204 10*3/uL Normal 150-400 [facility] Comment on above: Performed By: #### 8 5499 #### [facility] [address] [place] [address], [facility] RBC (Bld) [#/Vol] 4.33 10*6/uL Normal 4.20-5.70 [facility] Comment on above: Performed By: #### 8 5499 #### [facility] [address] [place] [address], [facility] WBC (Bld) [#/Vol] 12.03 10*3/uL High 4.00-10.60 [facility] Comment on above: Performed By: #### 8 5499 #### [facility] [address] [place], [place] [id number] [place] [address] CT LOWER EXTREMITY WO CONTRA ST LEFTon 02-12-2020 CT LOWER EXTREMITY WO CONTRAST LEFT [facility] Department of Radiology [address] [place] [id number] Patient Name: MARILU DAN : 1950 Sex: M Age: Race: White Pt. Location: [address] [place] [address] Patient Status: I Ordered Date: 02/12/2020 6:00:00 [...] metatarsals. Electronically signed: Kwaku Gupta. Transcribed by: [email or web address], User Resident: Electronically Signed by: KWAKU GUPTA @ 02/12/2020 06:34 PM Normal [facility] Comment on above: Order Comment: Hardw are Evaluation LIVER BATTERYon 02-12-2020 Albumin [Mass/Vol] 3.9 g/dL Normal 3.5-5.7 [facility] Comment on above: Order Comment: No: D o not add to previous draw Performed By: #### 4 1000, 55105, 63023, 90900 ####[facility] [place] [address], [facility] ALKALINE PHOSPH 64 IU/L Normal 34-104 [facility] Comment on above: Order Comment: No: D o not add to previous draw Performed By: #### 4 1000, 20407, 04138, 61830 ####[facility] [place] [address], [place] ALT [Catalytic activity/Vol] 10 U/L Normal 7-52 [facility] Comment on above: Order Comment: No: D o not add to previous draw Performed By: #### 4 1000, 85427, 84295, 70855 ####[facility] [place] [address], [place] AST [Catalytic activity/Vol] 13 U/L Normal 13-39 [facility] Comment on above: Order Comment: No: D o not add to previous draw Performed By: #### 4 1000, 88479, 16836, 42664 ####[facility] [place] [address], [place] Bilirubin [Mass/Vol] 0.5 mg/dL Normal 0.3-1.0 [facility] Comment on above: Order Comment: No: D o not add to previous draw Performed By: #### 4 1000, 09916, 65813, 55279 ####[facility] [place] [address], [place] Bilirubin.direct [Mass/Vol] 0.1 mg/dL Normal 0.0-0.2 [facility] Comment on above: Order Comment: No: D o not add to previous draw Performed By: #### 4 1000, 19380, 64118, 58499 ####[facility] [place] [address], [facility] Protein [Mass/Vol] 6.3 g/dL Normal 6.0-8.3 [facility] Comment on above: Order Comment: No: D o not add to previous draw Performed By: #### 4 1000, 37867, 21637, 73981 ####[facility] [place] [address], [facility] MAGNESIUM BLOODon 02-12-2020 Magnesium [Mass/Vol] 1.8 mg/dL Low 1.9-2.7 [facility] Comment on above: Order Comment: No: D o not add to previous draw Performed By: #### 4 1000, 72819, 74834, 27463 ####[facility] [facility] PHOSPHORUS BLOODon 0 Phosphate [Mass/Vol] 3.4 mg/dL Normal 2.5-5.0 [facility] Comment on above: Order Comment: No: D o not add to previous draw Performed By: #### 4 1000, 33743, 74146, 00280 ####[facility] [place] [address], [facility] POC GLUCOSE LABon 02-12-2020 Glucose [Mass/Vol] 285 mg/dL High 70-100 [facility] Comment on above: Performed By: #### 8 5499 #### [facility] [address] [place] [address], [facility] PROTHROMBIN TIMEon 0 INR Coag (PPP) [Relative time] 1.36 {INR} High 0.91-1.16 [facility] Comment on above: Order Comment: No: [...] 1995;[id number]. Performed By: #### 8 5499 #### [address] PT Coag (PPP) [Time] 16.9 s High 12.3-14.8 [facility] Comment on above: Order Comment: No: D o not add to previous draw Result Comment: ALL RESULTS MUST BE INTERPRETED WITH RESPECT TO BLOOD DRAWING ARTIFACT OR DILUTION ERROR OF ANTICOAGULANT AT THE TIME OF SAMPLING. Performed By: #### 8 5499 #### [address] TIBIA FIBULA LEFTon 02-12-20 20 TIBIA FIBULA LEFT [facility] Department of Radiology [address] [place] [phone] Patient Name: MARILU DAN : 1950 Sex: M Age: Race: White Pt. Location: [id number] Patient Status: I Ordered Date: 02/12/2020 5:30:00 [...] above. Electronically signed: Kwaku Gupta. Transcribed by: [email or web address], User Resident: Electronically Signed by: KWAKU GUPTA @ 02/12/2020 06:13 PM Normal [facility] Comment on above: Order Comment: Hardw are Evaluation TYPE AND SCREENon 02-12-2020 ABO INTERPRETATION A Normal [facility] Comment on above: Performed By: #### 6 2586 ####[facility] [place] [address], [facility] RH INTERPRETATION Positive Normal [facility] Comment on above: Performed By: #### 6 2586 ####[facility] [place] [address], [place] CBC COMPLETE BLOOD COUNTon 0 11-05-2019 Erythrocyte distribution width (RBC) [Ratio] 11.9 % Normal 11.5-15.0 [facility] Comment on above: Order Comment: No: D o not add to previous draw Performed By: #### 8 5499 #### [facility] [address] [place] [address], [facility] Hematocrit (Bld) [Volume fraction] 37.2 % Low 39.0-50.0 [facility] Comment on above: Order Comment: No: D o not add to previous draw Performed By: #### 8 5499 #### [facility] [address] [place] [address], [facility] Hemoglobin (Bld) [Mass/Vol] 12.6 g/dL Low 13.0-17.0 [facility] Comment on above: Order Comment: No: D o not add to previous draw Performed By: #### 8 5499 #### [facility] [address] [place] [address], [facility] MCH (RBC) [Entitic mass] 30.4 pg Normal 27.0-33.0 [facility] Comment on above: Order Comment: No: D o not add to previous draw Performed By: #### 8 5499 #### [facility] [address] [place] [address], [facility] MCHC (RBC) [Mass/Vol] 33.9 g/dL Normal 32.0-35.0 [facility] Comment on above: Order Comment: No: D o not add to previous draw Performed By: #### 8 5499 #### [facility] [address] [place] [address], [facility] MCV (RBC) [Entitic vol] 89.6 fL Normal 82.0-98.0 [facility] Comment on above: Order Comment: No: D o not add to previous draw Performed By: #### 8 5499 #### [facility] [address] [place] [address], [place] Nucleated RBC/100 WBC (Bld) [Ratio] 0 % Normal 0-0 [facility] Comment on above: Order Comment: No: D o not add to previous draw Performed By: #### 8 5499 #### [facility] [address] [place] [address], [facility] PLAT CNT 155 10*3/uL Normal 150-400 [facility] Comment on above: Order Comment: No: D o not add to previous draw Performed By: #### 8 5499 #### [facility] [address] [place] [address], [facility] RBC (Bld) [#/Vol] 4.15 10*6/uL Low 4.20-5.70 [facility] Comment on above: Order Comment: No: D o not add to previous draw Performed By: #### 8 5499 #### [facility] [address] [place] [address], [facility] WBC (Bld) [#/Vol] 7.44 10*3/uL Normal 4.00-10.60 [facility] Comment on above: Order Comment: No: D o not add to previous draw Performed By: #### 8 5499 #### [facility] [address] [place] [address], [facility] COMP METABOLIC PANELon 11-04 Albumin [Mass/Vol] 3.3 g/dL Low 3.5-5.7 [facility] Comment on above: Order Comment: No: D o not add to previous draw Performed By: #### 8 6002 #### [facility] [address] [place] [address], [facility] ALKALINE PHOSPH 55 IU/L Normal 34-104 [facility] Comment on above: Order Comment: No: D o not add to previous draw Performed By: #### 8 6002 #### [facility] [address] [place] [id number], [facility] ALT [Catalytic activity/Vol] 12 U/L Normal 7-52 [facility] Comment on above: Order Comment: No: D o not add to previous draw Performed By: #### 8 6002 #### [facility] [address] [place] [address], [place] AST [Catalytic activity/Vol] 15 U/L Normal 13-39 [facility] Comment on above: Order Comment: No: D o not add to previous draw Performed By: #### 8 6002 #### [facility] [address] [place] [address], [place] Bilirubin [Mass/Vol] 0.6 mg/dL Normal 0.3-1.0 [facility] Comment on above: Order Comment: No: D o not add to previous draw Performed By: #### 8 6002 #### [facility] [address] [place] [address], [place] Calcium [Mass/Vol] 8.1 mg/dL Low 8.6-10.3 [facility] Comment on above: Order Comment: No: D o not add to previous draw Performed By: #### 8 6002 #### [facility] [address] [place] [address], [place] Chloride [Moles/Vol] 106 mmol/L Normal 98-107 [facility] Comment on above: Order Comment: No: D o not add to previous draw Performed By: #### 8 6002 #### [facility] [address] [place] [address], [place] CO2 [Moles/Vol] 26 mmol/L Normal 21-31 [facility] Comment on above: Order Comment: No: D o not add to previous draw Performed By: #### 8 6002 #### [facility] [address] [place] [address], [place] Creatinine [Mass/Vol] 0.79 mg/dL Normal 0.70-1.30 [facility] Comment on above: Order Comment: No: D o not add to previous draw Performed By: #### 8 6002 #### [facility] [address] [place] [address], [place] GFR/1.73 sq M predicted among blacks MDRD (S/P/Bld) [Vol rate/Area] mL/min/{1.73_m2} Normal >60 [facility] Comment on above: Order Comment: No: D o not add to previous draw Result Comment: Calc ulation may not be valid for patients over 70 years Performed By: #### 8 [id number] #### [facility] [address] [place] [address], [place] GFR/1.73 sq M predicted among non-blacks MDRD (S/P/Bld) [Vol rate/Area] mL/min/{1.73_m2} Normal >60 [facility] Comment on above: Order Comment: No: D o not add to previous draw Result Comment: Calc ulation may not be valid for patients over 70 years Performed By: #### 8 [id number] #### [facility] [address] [place] [address], [place] Glucose [Mass/Vol] 155 mg/dL High 70-100 [facility] Comment on above: Order Comment: No: D o not add to previous draw Performed By: #### 8 6002 #### [facility] [address] [place] [address], [place] Potassium [Moles/Vol] 3.8 mmol/L Normal 3.5-5.1 [facility] Comment on above: Order Comment: No: D o not add to previous draw Performed By: #### 8 6002 #### [facility] [address] [place] [address], [place] Protein [Mass/Vol] 5.2 g/dL Low 6.0-8.3 [facility] Comment on above: Order Comment: No: D o not add to previous draw Performed By: #### 8 6002 #### [facility] [address] [place] [address], [place] Sodium [Moles/Vol] 136 mmol/L Normal 136-145 [facility] Comment on above: Order Comment: No: D o not add to previous draw Performed By: #### 8 6002 #### [facility] [address] Urea nitrogen [Mass/Vol] 11 mg/dL Normal 7-25 [facility] Comment on above: Order Comment: No: D o not add to previous draw Performed By: #### 8 6002 #### [facility] [address] [address] Cardiovascular Lab Reporton 11-05-2019 Cardiovascular Lab Report [facility] Patient Name: Marilu Dan [facility] MR #: [id number] Physician: Blas Guillen of Keesha Ospina Medicine Service Date: 11/04/2019 Division of Birthdate: 1950 Cardiology Room #: DMITRIY [id number] Adult Cardiovascular Services [place] [address] Cardiovascular Laboratory Report INDICATION: Marilu Dan is [...] left (Angioseal) common femoral arteries. INTERVENTIONAL CARDIOLOGY PRINT MACHINE OPERATOR: Blas Ospina M.D. CARDIOTHORACIC SURGERY PRINT MACHINE OPERATOR: Santana Reagan MD FURNITURE REPAIRER: Reynaldo Cox M.D. METHODS: Procedure was explained [...] and this was easily upsized to a 6-Nauruan x 11 cm sheath. Access was also obtained using the same technique in the left common femoral artery with inner cannula angiography confirming adequate location and upsized to a 6-Nauruan x 11 cm sheath. Additional access was obtained in the left common femoral vein and a 6-Nauruan x 11 cm sheath was placed. Preclosure was performed in the right common femoral artery using two 6-Nauruan ProGlide devices, positioned at 10 o'clock and 2 o'clock locations and the access was upsized to a 10-Nauruan sheath. 4000 units of heparin were given at this time. A 6-Nauruan angled pigtail catheter was advanced to the ascending aorta from the left common femoral access and a 5-Nauruan temporary balloon tipped pacemaker wire was advanced to the right ventricular apex and adequate capture was confirmed with a threshold of 2 milliamps. A 6-Nauruan JR4 diagnostic catheter was advanced from the right femoral access over a J-tip wire to the descending aorta and used to place a Lunderquist wire and the access was then serially dilated and upsized to the 14-Nauruan Henao eSheath. At this time, full heparinization was given and therapeutic ACT was confirmed during the rest of the procedure and additional heparin given as needed. Using a 6-Nauruan JR4 diagnostic catheter and a straight Glidewire, the aortic valve was crossed and the catheter was advanced to the LV and then exchanged over a wire to a 6-Nauruan angled pigtail catheter, and after adequate position [...] the valve was deployed slowly across the shoshone-paiute aortic valve. The balloon was deflated and then retracted. After ending pacing, the patient recovered a normal sinus rhythm and recovered good pressure. Echocardiography confirmed adequate functioning of the valve, normal left ventricular function, no evidence of aortic insufficiency or paravalvular leak by echocardiography and no evidence of pericardial effusion. The wire was exchanged to a 6-Nauruan angled pigtail catheter and measurement of pressures [...] left femoral arteriotomy was managed with a 6-Nauruan Angio-Seal device with good hemostasis. The patient [...] A/Blas Ospina M.D. Date Trans: 11/05/2019 06:35 A/anjelo [id number] cc: Mary Beth Pitts M.D. [address] [place] [address] Normal [facility] MAGNESIUM BLOODon 11-05-2019 Magnesium [Mass/Vol] 1.9 mg/dL Normal 1.9-2.7 [facility] Comment on above: Order Comment: No: D o not add to previous draw Performed By: #### 8 [id number] #### [facility] [address] Operative Reporton 0 Operative Report MR#: [id number] [facility] Pt. Name: Marilu Dan Room #: DMITRIY [id number] Discharge Date: Birthdate: 1950 OPERATIVE REPORT DATE OF SURGERY: 11/04/2019 SURGEON: Santana Reagan MD PREOPERATIVE DIAGNOSIS: Severe aortic stenosis, status post coronary artery bypass grafting. POSTOPERATIVE DIAGNOSIS: Severe aortic stenosis, status post coronary artery bypass grafting. OPERATION: Transfemoral transcatheter aortic valve replacement with 26 mm Chidi XT valve. SURGEONS: Dr. Reagan and Dr. Ospina. THERAPY MANAGER: Dr. Cox. ANESTHESIA: Local anesthesia with [...] was achieved to both femoral arteries with 6-Nauruan sheath. A temporary transvenous pacemaker was inserted in the left femoral vein and tested for later use. At this time, pigtail catheter was inserted into the ascending aorta through the left femoral sheath and root aortogram was performed. Anatomical details were measured. Coplanar angles were assessed. Next, the patient was heparinized and the right femoral artery sheath was upsized to a 14-Nauruan Henao sheath. Before implanting the sheath, the [...] Reagan MD Date Trans: 11/05/2019 02:18 A/gomez [id number] Normal [facility] POC GLUCOSE LABon 11-05-2019 Glucose [Mass/Vol] 232 mg/dL High 70-100 [facility] Comment on above: Performed By: #### 8 [id number] #### [facility] [address] [place] [address], [facility] Glucose [Mass/Vol] 148 mg/dL High 70-100 [facility] Comment on above: Performed By: #### 8 [id number] #### [facility] [address] [place] [address], [facility] Glucose [Mass/Vol] 203 mg/dL High 70-100 [facility] Comment on above: Performed By: #### 8 [id number] #### [facility] [address] [place] [address], [facility] PORTABLE CHEST 1 VIEWon 10-13 PORTABLE CHEST 1 VIEW [facility] Department of Radiology [address] [place] [address] [id number] Patient Name: MARILU DAN : 1950 Sex: M Age: Race: White Pt. Location: [id number] Patient Status: I Ordered Date: 11/05/2019 10:20:00 [...] recommendations. Electronically signed: Omid Avery. Transcribed by: [email or web address], User Resident: Electronically Signed by: OMID AVERY @ 11/05/2019 11:07 AM Normal [facility] Comment on above: Order Comment: Hardw are Evaluation PROTHROMBIN TIMEon 0 INR Coag (PPP) [Relative time] 1.06 {INR} Normal 0.91-1.16 [facility] Comment on above: Order Comment: No: [...] 1995;108:231S-246S. Performed By: #### 8 6002 #### [facility] [address] [place] [address], [facility] PT Coag (PPP) [Time] 13.8 s Normal 12.3-14.8 [facility] Comment on above: Order Comment: No: D o not add to previous draw Result Comment: ALL RESULTS MUST BE INTERPRETED WITH RESPECT TO BLOOD DRAWING ARTIFACT OR DILUTION ERROR OF ANTICOAGULANT AT THE TIME OF SAMPLING. Performed By: #### 8 [id number] #### [facility] [address] [place] [address], [facility] ACTIVATED CLOTTING TIMEon ACTIVATED CLOTTING TIME 249 sec High 82-152 [facility] Comment on above: Performed By: #### 3 0739 ####[facility] [place] [address], [facility] ACTIVATED CLOTTING TIME 249 sec High 82-152 [facility] Comment on above: Performed By: #### 3 0739 ####[facility], [place] [id number] [place] [address] ACTIVATED CLOTTING TIME 225 sec High 82-152 [facility] Comment on above: Performed By: #### 3 0739 ####[facility] [place] [address], [facility] ACTIVATED CLOTTING TIME 201 sec High 82-152 [facility] Comment on above: Performed By: #### 3 0738 #### [facility] [address] [place] [address], [facility] ACTIVATED CLOTTING TIME 172 sec High 82-152 [facility] Comment on above: Performed By: #### 3 0738 #### [facility] [address] [place] [address], [facility] BASIC METABOLIC PANELon 10-13 Calcium [Mass/Vol] 8.9 mg/dL Normal 8.6-10.3 [facility] Comment on above: Performed By: #### 8 6002 #### [facility] [address] [place] [address], [place] Chloride [Moles/Vol] 105 mmol/L Normal 98-107 [facility] Comment on above: Performed By: #### 8 6002 #### [facility] [address] [place] [address], [place] CO2 [Moles/Vol] 28 mmol/L Normal 21-31 [facility] Comment on above: Performed By: #### 8 6002 #### [facility] [address] [place] [address], [place] Creatinine [Mass/Vol] 0.87 mg/dL Normal 0.70-1.30 [facility] Comment on above: Performed By: #### 8 6002 #### [facility] [address] [place] [address], [place] GFR/1.73 sq M predicted among blacks MDRD (S/P/Bld) [Vol rate/Area] mL/min/{1.73_m2} Normal >60 [facility] Comment on above: Result Comment: Calc ulation may not be valid for patients over 70 years Performed By: #### 8 6002 #### [facility] [address] [place] [address], [place] GFR/1.73 sq M predicted among non-blacks MDRD (S/P/Bld) [Vol rate/Area] mL/min/{1.73_m2} Normal >60 [facility] Comment on above: Result Comment: Calc ulation may not be valid for patients over 70 years Performed By: #### 8 6002 #### [facility] [address] [place] [address], [place] Glucose [Mass/Vol] 221 mg/dL High 70-100 [facility] Comment on above: Performed By: #### 8 6002 #### [facility] [address] [place] [address], [place] Potassium [Moles/Vol] 3.9 mmol/L Normal 3.5-5.1 [facility] Comment on above: Performed By: #### 8 6002 #### [facility] [address] [place] [address], [facility] Sodium [Moles/Vol] 139 mmol/L Normal 136-145 [facility] Comment on above: Performed By: #### 8 6002 #### [facility] [address] [place] [address], [facility] Urea nitrogen [Mass/Vol] 15 mg/dL Normal 7-25 [facility] Comment on above: Performed By: #### 8 6002 #### [facility] [address] [place] [address], [facility] PERFUSION BLOOD PANELon 06- BASE EXCESS -2.0 mmol/L Normal -2.0-3.0 [facility] Comment on above: Performed By: #### 3 0738 #### [facility] [address] Glucose [Mass/Vol] 169 mg/dL High 70-105 [facility] Comment on above: Performed By: #### 3 0738 #### [facility] [address] Hematocrit (Bld) [Volume fraction] 34 % Low 38-51 [facility] Comment on above: Performed By: #### 3 0738 #### [facility] [address] [place] [address], [facility] Hemoglobin (Bld) [Mass/Vol] 11.6 g/dL Low 12.0-17.0 [facility] Comment on above: Performed By: #### 3 0738 #### [facility] [address] [place] [address], [facility] IONIZED CALCIUM 1.20 mmol/L Normal 1.12-1.32 [facility] Comment on above: Performed By: #### 3 0738 #### [facility] [address] [place] [address], [facility] Oxygen (Bld) [Partial pressure] 410.0 mm[Hg] High 80.0-105.0 [facility] Comment on above: Performed By: #### 3 0738 #### [facility] [address] [place] [address], [facility] PCO2 49.2 mmHg High 35.0-45.0 [facility] Comment on above: Performed By: #### 3 0738 #### [facility] [address] [place] [address], [facility] pH (Bld) 7.31 [pH] Low 7.35-7.45 [facility] Comment on above: Performed By: #### 3 0738 #### [facility] [address] [place] [address], [facility] Potassium [Moles/Vol] 4.0 mmol/L Normal 3.5-4.9 [facility] Comment on above: Performed By: #### 3 0738 #### [facility] [address] [facility] [place] [address], [facility] Sodium [Moles/Vol] 142 mmol/L Normal 138-146 [facility] Comment on above: Performed By: #### 3 0738 #### [facility] [address] [place] [address], [facility] POC GLUCOSE LABon 11-04-2019 Glucose [Mass/Vol] 196 mg/dL High 70-100 [facility] Comment on above: Performed By: #### 8 [id number] #### [facility] [address] [facility] [place] [address], [place] Glucose [Mass/Vol] 215 mg/dL High 70-100 [facility] Comment on above: Performed By: #### 8 [id number] #### [facility] [address] [place] [address], [place] RBC'S 2 UNITSon 11-04-2019 CROSSMATCH INTERP 1 COMP Normal [facility] Comment on above: Performed By: #### 8 6002 #### [facility] [address] [place] [address], [place] CROSSMATCH INTERP 2 COMP Normal [facility] Comment on above: Performed By: #### 8 6002 #### [facility] [address] [place] [address], [place] PRODUCT CODE 1 E0336 Normal [facility] Comment on above: Performed By: #### 8 6002 #### [facility] [address] [place] [address], [place] PRODUCT CODE 2 E0336 Normal [facility] Comment on above: Performed By: #### 8 6002 #### [facility] [address] [place] [address], [place] PRODUCT STATUS 1 RE Normal [facility] Comment on above: Result Comment: Resu lt changed by IF on 11/05/2019 21:39. The previous value was XM. Performed By: #### 8 6002 #### [facility] [address] [place] [address], [place] PRODUCT STATUS 2 RE Normal [facility] Comment on above: Result Comment: Resu lt changed by IF on 11/05/2019 21:39. The previous value was XM. Performed By: #### 8 6002 #### [facility] [address] [place] [address], [place] UNIT ABO 1 A Normal [facility] Comment on above: Performed By: #### 8 6002 #### [facility] [address] [place] [address], [place] UNIT ABO 2 A Normal [facility] Comment on above: Performed By: #### 8 6002 #### [facility] [address] [place] [address], [place] UNIT ID 1 [id number] Normal [facility] Comment on above: Performed By: #### 8 6002 #### [facility] [address] [facility]. [address] UNIT ID 2 [id number] Normal [facility] Comment on above: Performed By: #### 8 6002 #### [facility] [address] UNIT RH 1 Positive Normal [facility] Comment on above: Performed By: #### 8 6002 #### [facility] [address] [place] [address], [facility] UNIT RH 2 Positive Normal [facility] Comment on above: Performed By: #### 8 6002 #### [facility] [address] [facility]. [address] *MRSA/MSSA DNA NASALon 10-30 *MRSA/MSSA DNA NASAL Clinical Report: (D ) Specimen: NASAL SWAB Collected: 10/31/2019 16:01 Status: Final Last Updated: 11/01/2019 11:35 MSSA DNA (Final) Negative MRSA DNA (Final) Negative Normal [facility] Comment on above: Performed By: #### 8 [id number] #### [facility] [address] [facility] *SARS-CoV-2 COVID-19on 10-30 [id number] Not Detected Normal Not Detected [facility] Comment on above: Order Comment: The A ptima SARS-CoV-2 assay is a nucleic acid amplification test intended for the qualitative detection of RNA from SARS-CoV-2 isolated and purified from nasopharyngeal (CORPORATE CONTROLLER), nasal and oropharyngeal (OP) swab specimens from patients with signs and symptoms of infection who are suspected of COVID-19. Results are for the identification of SARS-CoV-2 RNA. The SARS-CoV-2 RNA is generally detectable in nasopharyngeal and oropharyngeal swabs during the acute phase of infection. The Aptima SARS-CoV-2 Assay on the [place] [employer] and [employer] system is intended for use by laboratory personnel specifically instructed and trained in the operation of the [place] [employer] [place] [employer] system. The Aptima SARS-CoV-2 assay is [...] information. Performed By: #### 3 1792 #### [facility] [address] CBC COMPLETE BLOOD COUNT10-31-2019 Erythrocyte distribution width (RBC) [Ratio] 11.9 % Normal 11.5-15.0 [facility] Comment on above: Performed By: #### 8 [id number] #### [facility] [address] Hematocrit (Bld) [Volume fraction] 41.2 % Normal 39.0-50.0 [facility] Comment on above: Performed By: #### 8 [id number] #### [facility] [address] Hemoglobin (Bld) [Mass/Vol] 13.8 g/dL Normal 13.0-17.0 [facility] Comment on above: Performed By: #### 8 [id number] #### [facility] [address] [facility]. [address] MCH (RBC) [Entitic mass] 30.4 pg Normal 27.0-33.0 [facility] Comment on above: Performed By: #### 8 [id number] #### [facility] [address] MCHC (RBC) [Mass/Vol] 33.5 g/dL Normal 32.0-35.0 [facility] Comment on above: Performed By: #### 8 [id number] #### [facility] [address] [place] [address], [facility] MCV (RBC) [Entitic vol] 90.7 fL Normal 82.0-98.0 [facility] Comment on above: Performed By: #### 8 [id number] #### [facility] [address] [place] [address], [facility] Nucleated RBC/100 WBC (Bld) [Ratio] 0 % Normal 0-0 [facility] Comment on above: Performed By: #### 8 [id number] #### [facility] [address] [place] [address], [facility] PLAT CNT 216 10*3/uL Normal 150-400 [facility] Comment on above: Performed By: #### 8 [id number] #### [facility] [address] [facility] [address] RBC (Bld) [#/Vol] 4.54 10*6/uL Normal 4.20-5.70 [facility] Comment on above: Performed By: #### 8 [id number] #### [facility] [address] [place] [address], [facility] WBC (Bld) [#/Vol] 8.20 10*3/uL Normal 4.00-10.60 [facility] Comment on above: Performed By: #### 8 [id number] #### [facility] [address] [facility]. [address] HEMOGLOBIN A1Con 10-31-2019 HbA1c (Bld) [Mass fraction] 177 mg/dL High 70-126 [facility] Comment on above: Performed By: #### 8 6002 #### [facility] [address] [facility] HbA1c (Bld) [Mass fraction] 7.8 % High 4.0-6.0 [facility] Comment on above: Performed By: #### 8 6002 #### [facility] [address] [place] [address], [facility] PROTHROMBIN TIMEon 0 INR Coag (PPP) [Relative time] 1.39 {INR} High 0.91-1.16 [facility] Comment on above: Result Comment: [facility] P RECOMMENDED INR FOR WARFARIN THERAPY --------- [...] 1995;108:231S-246S. Performed By: #### 8 6002 #### [facility] [address] [place] [address], [facility] INR Coag (PPP) [Relative time] 1.38 {INR} High 0.91-1.16 [facility] Comment on above: Result Comment: [facility] P RECOMMENDED INR FOR WARFARIN THERAPY --------- [...] 1995;108:231S-246S. Performed By: #### 8 6002 #### [facility] [address] [place] [address], [facility] PT Coag (PPP) [Time] 17.1 s High 12.3-14.8 [facility] Comment on above: Result Comment: ALL RESULTS MUST BE INTERPRETED WITH RESPECT TO BLOOD DRAWING ARTIFACT OR DILUTION ERROR OF ANTICOAGULANT AT THE TIME OF SAMPLING. Performed By: #### 8 6002 #### [facility] [address] [place] [id number], [facility] PT Coag (PPP) [Time] 17.2 s High 12.3-14.8 [facility] Comment on above: Result Comment: ALL RESULTS MUST BE INTERPRETED WITH RESPECT TO BLOOD DRAWING ARTIFACT OR DILUTION ERROR OF ANTICOAGULANT AT THE TIME OF SAMPLING. Performed By: #### 8 6002 #### [facility] [address] [place] [place] [address], [facility] TYPE AND SCREENon 10-31-2019 ABO INTERPRETATION A Normal [facility] Comment on above: Performed By: #### 8 [id number] #### [facility] [address] [facility] [place] [address], [facility] RH INTERPRETATION Positive Normal [facility] Comment on above: Performed By: #### 8 [id number] #### [facility] [address] [place] [place] [address], [facility] CBCOrdered By: Blas gonzales on 05-12-2019 Erythrocyte distribution width (RBC) [Ratio] 11.8 % 11.8 - 14.4 % [employer] I Phone: Hematocrit (Bld) [Volume fraction] 45.2 % 40.7 - 50.3 % [employer] I Phone: Hemoglobin (Bld) [Mass/Vol] 14.6 g/dL 13 - 17 g/dL [employer] I Phone: MCH (RBC) [Entitic mass] 30.5 pg 25.2 - 33.5 pg [employer] I Phone: MCHC (RBC) [Mass/Vol] 32.3 g/dL 28.4 - 34.8 g/dL [employer] I Phone: MCV (RBC) [Entitic vol] 94.4 fL 82.6 - 102.9 fL [employer] I Phone: NRBC Automated 0.0 0.0 per 100 WBC [employer] I Phone: Platelet mean volume (Bld) [Entitic vol] 9.0 fL 8.1 - 13.5 fL [employer] I Phone: Platelets (Bld) [#/Vol] 204 10*3/uL [employer] I Phone: RBC (Bld) [#/Vol] 4.79 10*6/uL 4.21 - 5.77 m/uL [employer] I Phone: WBC (Bld) [#/Vol] 8.0 10*3/uL [employer] I Phone: Vital Signs Date Time Vital Sign Value Performing Clinician Facility 12-03-2024 10: Body height 167.64 cm Mary Beth Pitts MD Work Phone: [facility] 12-03-2024 10:040 Body mass index (BMI) [Ratio] 27.1 kg/m2 Mary Beth Pitts MD Work Phone: [facility] 12-03-2024 10:040 Body weight 76.2 kg Mary Beth Pitts MD Work Phone: [facility] 12-03-2024 10:21-0400 Diastolic blood pressure 65 mm[Hg] Mary Beth Pitts MD Work Phone: [facility] 12-03-2024 10:21-0400 Heart rate 70 /min Mary Beth Pitts MD Work Phone: [facility] 12-03-2024 10:21-0400 Systolic blood pressure 143 mm[Hg] Mary Beth Pitts MD Work Phone: [facility] 09-29-2024 09:43-0400 Blood Pressure Location Cristo RIVERA [facility] 09-29-2024 09:43-0400 Body temperature 98.6 [degF] Cristo RIVERA [facility] 09-29-2024 09:43-0400 Diastolic blood pressure 78 mm[Hg] Cristo RIVERA [facility] 09-29-2024 09:43-0400 Heart rate 65 /min Cristoantoine RIVERA [facility] 09-29-2024 09:43-0400 Respiratory rate 16 /min Cristo RIVERA [facility] 09-29-2024 09:43-0400 Systolic blood pressure 134 mm[Hg] Cristo RIVERA [facility] 09-02-2024 09:26-0400 Body height 167.64 cm [facility] 09-02-2024 09:26-0400 Body mass index (BMI) [Ratio] 27.2 kg/m2 [facility] 09-02-2024 09:26-0400 Body weight 76.65 kg [facility] 09-02-2024 09:26-0400 Diastolic blood pressure 68 mm[Hg] [facility] 09-02-2024 09:26-0400 Heart rate 73 /min [facility] 09-02-2024 09:26-0400 Systolic blood pressure 112 mm[Hg] [facility] 07-11-2024 10:33-0500 Body height 167.64 cm [facility] 07-11-2024 10:33-0500 Body mass index (BMI) [Ratio] 27.2 kg/m2 [facility] 07-11-2024 10:33-0500 Body weight 76.65 kg [facility] 07-11-2024 10:33-0500 Diastolic blood pressure 68 mm[Hg] [facility] 07-11-2024 10:33-0500 Heart rate 80 /min [facility] 07-11-2024 10:33-0500 SaO2% (BldA) [Mass fraction] 97 % [facility] 07-11-2024 10:33-0500 Systolic blood pressure 124 mm[Hg] [facility] 06-25-2024 10:55-0500 SaO2% (BldA) [Mass fraction] 93 % [facility] 06-25-2024 09:41-0500 Body height 167.64 cm [facility] 06-25-2024 09:41-0500 Body mass index (BMI) [Ratio] 28.4 kg/m2 [facility] 06-25-2024 09:41-0500 Body temperature 96 [degF] [facility] 06-25-2024 09:41-0500 Body weight 79.94 kg [facility] 06-25-2024 09:41-0500 Diastolic blood pressure 62 mm[Hg] [facility] 06-25-2024 09:41-0500 Heart rate 88 /min [facility] 06-25-2024 09:41-0500 SaO2% (BldA) [Mass fraction] 85 % [facility] 06-25-2024 09:41-0500 Systolic blood pressure 126 mm[Hg] [facility] 06-09-2024 09:54-0500 Blood Pressure Location Cristo RIVERA [facility] 06-09-2024 09:54-0500 Diastolic blood pressure 73 mm[Hg] Cristo RIVERA [facility] 06-09-2024 09:54-0500 Heart rate 73 /min Cristo RIVERA [facility] 06-09-2024 09:54-0500 Systolic blood pressure 138 mm[Hg] Cristo RVIERA [facility] 02-15-2024 08:54-0400 Blood Pressure Location Cristo RIVERA [facility] 02-15-2024 08:54-0400 Body temperature 98.6 [degF] Cristo RIVERA [facility] 02-15-2024 08:54-0400 Diastolic blood pressure 71 mm[Hg] Cristo RIVERA [facility] 02-15-2024 08:54-0400 Heart rate 80 /min Cristo RIVERA [facility] 02-15-2024 08:54-0400 Respiratory rate 16 /min Cristo RIVERA [facility] 02-15-2024 08:54-0400 Systolic blood pressure 131 mm[Hg] Cristo RIVERA [facility] 12-21-2023 08:02-0400 Blood Pressure Location Cristo RIVERA [facility] 12-21-2023 08:02-0400 Diastolic blood pressure 72 mm[Hg] Cristo RIVERA [facility] 12-21-2023 08:02-0400 Heart rate 73 /min Cristo RIVERA [facility] 12-21-2023 08:02-0400 Respiratory rate 16 /min Cristo RIVERA [facility] 12-21-2023 08:02-0400 Systolic blood pressure 136 mm[Hg] Cristo RIVERA [facility] 12-04-2023 07:48-0400 Body height 167.64 cm MD Mary Beth Pitts Work Phone: [facility] 12-04-2023 07:48-0400 Body mass index (BMI) [Ratio] 0.8 kg/m2 MD Mary Beth Pitts Work Phone: [facility] 12-04-2023 07:48-0400 Body weight 2.43 kg MD Mary Beth Pitts Work Phone: [facility] 12-04-2023 07:42-0400 Body temperature 97.7 [degF] MD Mary Beth Pitts Work Phone: [facility] 12-04-2023 07:42-0400 Diastolic blood pressure 62 mm[Hg] MD Mary Beth Pitts Work Phone: [facility] 12-04-2023 07:42-0400 Heart rate 64 /min MD Mary Beth Pitts Work Phone: [facility] 12-04-2023 07:42-0400 Respiratory rate 18 /min MD Mary Beth Pitts Work Phone: [facility] 12-04-2023 07:42-0400 Systolic blood pressure 110 mm[Hg] MD Mary Beth Pitts Work Phone: [facility] 11-26-2023 09:55-0400 Body height 167.64 cm MD Mary Beth Pitts Work Phone: [facility] 11-26-2023 09:55-0400 Body mass index (BMI) [Ratio] 26.6 kg/m2 MD Mary Beth Pitts Work Phone: [facility] 11-26-2023 09:55-0400 Body weight 74.84 kg MD Mary Beth Pitts Work Phone: [facility] 11-26-2023 09:55-0400 Diastolic blood pressure 58 mm[Hg] MD Mary Beth Pitts Work Phone: [facility] 11-26-2023 09:55-0400 Heart rate 76 /min MD Mary Beth Pitts Work Phone: [facility] 11-26-2023 09:55-0400 Systolic blood pressure 95 mm[Hg] MD Mary Beth Pitts Work Phone: [facility] 11-19-2023 08:45-0400 Blood Pressure Location Cristo RIVERA [facility] 11-19-2023 08:45-0400 Diastolic blood pressure 59 mm[Hg] Cristo RIVERA [facility] 11-19-2023 08:45-0400 Heart rate 81 /min Cristo RIVERA [facility] 11-19-2023 08:45-0400 Respiratory rate 16 /min Cristo RIVERA [facility] 11-19-2023 08:45-0400 Systolic blood pressure 125 mm[Hg] Cristo RIVERA [facility] 11-08-2023 07:20-0400 Body height 167.64 cm MD Mary Beth Pitts Work Phone: [facility] 11-08-2023 07:20-0400 Body mass index (BMI) [Ratio] 0.8 kg/m2 MD Mary Beth Pitts Work Phone: [facility] 11-08-2023 07:20-0400 Body weight 2.43 kg MD Mary Beth Pitts Work Phone: [facility] 11-08-2023 07:08-0400 Body temperature 97.5 [degF] MD Mary Beth Pitts Work Phone: [facility] 11-08-2023 07:08-0400 Diastolic blood pressure 53 mm[Hg] MD Mary Beth Pitts Work Phone: [facility] 11-08-2023 07:08-0400 Heart rate 80 /min MD Mary Beth Pitts Work Phone: [facility] 11-08-2023 07:08-0400 Respiratory rate 18 /min MD Mary Beth Pitts Work Phone: [facility] 11-08-2023 07:08-0400 Systolic blood pressure 91 mm[Hg] MD Mary Beth Pitts Work Phone: [facility] 10-18-2023 09:18-0400 Body height 165.1 cm [facility] 10-18-2023 09:18-0400 Body mass index (BMI) [Ratio] 30.2 kg/m2 [facility] 10-18-2023 09:18-0400 Body weight 82.55 kg [facility] 10-18-2023 09:18-0400 Diastolic blood pressure 50 mm[Hg] [facility] 10-18-2023 09:18-0400 Heart rate 87 /min [facility] 10-18-2023 09:18-0400 Systolic blood pressure 89 mm[Hg] [facility] 06-25-2023 08:50-0500 Blood Pressure Location Cristo RIVERA [facility] 06-25-2023 08:50-0500 Diastolic blood pressure 64 mm[Hg] Cristo RIVERA [facility] 06-25-2023 08:50-0500 Heart rate 74 /min Cristo RIVERA [facility] 06-25-2023 08:50-0500 Respiratory rate 16 /min Cristo RIVERA [facility] 06-25-2023 08:50-0500 Systolic blood pressure 108 mm[Hg] Cristo RIVERA [facility] 02-26-2023 08:57-0400 Blood Pressure Location Cristo RIVERA [facility] 02-26-2023 08:57-0400 Diastolic blood pressure 60 mm[Hg] Cristo RIVERA [facility] 02-26-2023 08:57-0400 Heart rate 69 /min Cristo RIVERA [facility] 02-26-2023 08:57-0400 Respiratory rate 16 /min Cristo RIVERA [facility] 02-26-2023 08:57-0400 Systolic blood pressure 118 mm[Hg] Cristo RIVERA [facility] 11-27-2022 09:34-0400 Blood Pressure Location Cristo RIVERA [facility] 11-27-2022 09:34-0400 Diastolic blood pressure 51 mm[Hg] Cristo RIVERA [facility] 11-27-2022 09:34-0400 Heart rate 64 /min Cristo RIVERA [facility] 11-27-2022 09:34-0400 Respiratory rate 16 /min Cristo RIVERA [facility] 11-27-2022 09:34-0400 Systolic blood pressure 89 mm[Hg] Cristo RIVERA [facility] 09-11-2022 12:30-0400 Body height 165.1 cm Mary Beth Pitts Other [employer] Other 09-11-2022 12:30-0400 Body mass index (BMI) [Ratio] 29.78 kg/m2 Mary Beth Pitts Other [employer] Other 09-11-2022 12:30-0400 Body weight 81.19 kg Mary Beth Pitts Other [employer] Other 09-11-2022 12:30-0400 Diastolic blood pressure 62 mm[Hg] Mary Beth Pitts Other [employer] Other 09-11-2022 12:30-0400 SaO2% (BldA) [Mass fraction] 94 % Mary Beth Pitts Other [employer] Other 09-11-2022 12:30-0400 Systolic blood pressure 110 mm[Hg] Mary Beth Pitts Other [employer] Other 08-24-2022 11:45-0400 Body height 165.1 cm Mary Beth Pitts Other [employer] Other 08-24-2022 11:45-0400 Body mass index (BMI) [Ratio] 29.62 kg/m2 Mary Beth Pitts Other [employer] Other 08-24-2022 11:45-0400 Body weight 80.74 kg Mary Beth Pitts Other [employer] Other 08-24-2022 11:45-0400 Diastolic blood pressure 58 mm[Hg] Mary Beth Pitts Other [employer] Other 08-24-2022 11:45-0400 SaO2% (BldA) [Mass fraction] 95 % Mary Beth Pitts Other [employer] Other 08-24-2022 11:45-0400 Systolic blood pressure 112 mm[Hg] Mary Beth Pitts Other [employer] Other 07-11-2022 09:45-0500 Body height 165.1 cm Mary Beth Pitts Other [employer] Other 07-11-2022 09:45-0500 Body mass index (BMI) [Ratio] 29.62 kg/m2 Mary Beth Pitts Other [employer] Other 07-11-2022 09:45-0500 Body weight 80.74 kg Mary Beth Pitts Other [employer] Other 07-11-2022 09:45-0500 Diastolic blood pressure 52 mm[Hg] Mary Beth Pitts Other [employer] Other 07-11-2022 09:45-0500 SaO2% (BldA) [Mass fraction] 97 % Mary Beth Pitts Other [employer] Other 07-11-2022 09:45-0500 Systolic blood pressure 108 mm[Hg] Mary Beth Pitts Other [employer] Other 06-05-2022 09:38-0500 Diastolic blood pressure 60 mm[Hg] Cristo RIVERA [facility] 06-05-2022 09:38-0500 Mean blood pressure 84 mm[Hg] Cristo RIVERA [facility] 06-05-2022 09:38-0500 Systolic blood pressure 131 mm[Hg] Cristo RIVERA [facility] 06-05-2022 09:32-0500 Blood Pressure Location Cristo RIVERA [facility] 06-05-2022 09:32-0500 Diastolic blood pressure 73 mm[Hg] Cristo RIVERA [facility] 06-05-2022 09:32-0500 Heart rate 74 /min Cristo RIVERA [facility] 06-05-2022 09:32-0500 Respiratory rate 16 /min Cristo RIVERA [facility] 06-05-2022 09:32-0500 Systolic blood pressure 149 mm[Hg] Cristo RIVERA [facility] 03-19-2022 11:53-0500 Body temperature 98 [degF] [...] [facility] 03-14-2022 12:28-0400 Diastolic blood pressure 74 mm[Hg] Cristo RIVERA [facility] 03-14-2022 12:28-0400 Heart rate 80 /min Cristo RIVERA [facility] 03-14-2022 12:28-0400 Systolic blood pressure 150 mm[Hg] Cristo RIVERA [facility] 02-27-2022 09:24-0400 Blood Pressure Location Cristo RIVERA [facility] 02-27-2022 09:24-0400 Diastolic blood pressure 72 mm[Hg] Cristo RIVERA [facility] 02-27-2022 09:24-0400 Heart rate 83 /min Cristo RIVERA [facility] 02-27-2022 09:24-0400 Respiratory rate 16 /min Cristo RIVERA [facility] 02-27-2022 09:24-0400 Systolic blood pressure 130 mm[Hg] Cristo RIVERA [facility] 09-19-2021 13:45-0400 Diastolic blood pressure 48 mm[Hg] Roberta George DO Work Phone: [employer] 09-19-2021 13:45-0400 Heart rate 65 /min Roberta Vazquez DO Work Phone: [employer] 09-19-2021 13:45-0400 Respiratory rate 20 /min Roberta Vazquez DO Work Phone: [employer] 09-19-2021 13:45-0400 SaO2% (BldA) [Mass fraction] 95 % Roberta Vazquez DO Work Phone: [employer] 09-19-2021 13:45-0400 Systolic blood pressure 113 mm[Hg] Roberta Vazquez DO Work Phone: [employer] 09-19-2021 13:23-0400 Body temperature 96.91 [degF] Roberta Georeg DO Work Phone: [employer] 09-19-2021 11:57-0400 Body height 170.2 cm Roberta Vazquez DO Work Phone: [employer] 09-19-2021 11:57-0400 Body mass index (BMI) [Ratio] 25.84 kg/m2 Roberta Vazquez DO Work Phone: [employer] 09-19-2021 11:57-0400 Body weight 74.84 kg Roberta Vazquez DO Work Phone: [employer] Encounters Encounter Date Encounter Type Care Provider Facility Start: 12-22-2024 End: 12-22-2024 ambulatory [facility] Start: 12-03-2024 End: 12-03-2024 ambulatory Mary Beth Pitts MD Work Phone: [facility] Work Phone: Start: 12-03-2024 End: 12-03-2024 Patient encounter procedure Mary Beth Pitts MD -[facility] Work Phone: Start: 10-27-2024 End: 10-27-2024 ambulatory MD Ricco Mandujano Facility[facility] Start: 10-27-2024 End: 10-27-2024 Lab Drop off Ricco Mandujano [facility] Start: 10-27-2024 End: 10-27-2024 ambulatory MD Ricco Mandujano Facility:[facility] [place] Start: 10-22-2024 ambulatory Cristoantoine RIVERA Facility :[facility] Start: 09-29-2024 End: 09-29-2024 ambulatory Cristo RIVERA Facility:[facility] Start: 09-29-2024 End: 09-29-2024 Patient encounter procedure Cristo RIVERA [facility] Start: 09-15-2024 Non-patient / Non-visit Mary Beth lemos MD -[facility] Work Phone: Start: 09-02-2024 End: 09-02-2024 ambulatory [facility] Work Phone: Start: 09-02-2024 End: 09-02-2024 Patient encounter procedure [facility] Work Phone: Start: 07-18-2024 End: 07-18-2024 ambulatory MARSHALL LUONG [facility] Start: 07-11-2024 End: 07-11-2024 ambulatory [facility] Work Phone: Start: 07-11-2024 End: 07-11-2024 Patient encounter procedure [facility] Work Phone: Start: 07-07-2024 Non-patient / Non-visit [facility] Work Phone: Start: 07-07-2024 Non-patient / Non-visit [facility] Work Phone: Start: 07-06-2024 Non-patient / [facility] Work Phone: Start: 07-06-2024 Non-patient / Non-visit [facility] Work Phone: Start: 07-05-2024 Non-patient / Non-visit [facility] Work Phone: Start: 07-04-2024 Non-patient / Non-visit [facility] Work Phone: Start: 07-03-2024 End: 07-03-2024 ambulatory [facility] Start: 06-25-2024 End: 06-25-2024 ambulatory [facility] Work Phone: Start: 06-25-2024 End: 06-25-2024 Patient encounter procedure [facility] Work Phone: Start: 06-20-2024 End: 06-20-2024 ambulatory Cristo RIVERA Facility:[facility] Start: 06-20-2024 End: 06-20-2024 Patient encounter procedure Cristo RIVERA [facility] Start: 06-09-2024 End: 06-09-2024 ambulatory Cristo RIVERA Facility:[facility] Start: 06-09-2024 End: 06-09-2024 Patient encounter procedure Cristo RIVERA [facility] Start: 03-25-2024 End: 03-25-2024 Lab Drop off Cristo RIVERA [facility] Start: 03-25-2024 End: 03-25-2024 ambulatory Cristo RIVERA Facility[facility] Start: 03-25-2024 End: 03-25-2024 Patient encounter procedure Cristo RIVERA [facility] Start: 02-28-2024 End: 02-28-2024 ambulatory Cristo Yvrose NICOLE Facility:[facility] Start: 02-28-2024 End: 02-28-2024 Patient encounter procedure Cristo Yvrose RIVERA [facility] Start: 02-15-2024 End: 02-15-2024 ambulatory Cristo RIVERA Facility:[facility] Start: 02-15-2024 End: 02-15-2024 Lab Drop off Cristo RIVERA [facility] Start: 02-15-2024 End: 02-15-2024 ambulatory Cristo RIVERA Facility:[facility] Start: 02-15-2024 End: 02-15-2024 Patient encounter procedure Cristo R NICOLE [facility] Start: 12-24-2023 End: 12-24-2023 ambulatory MARSHALL LUONG [facility] Start: 12-21-2023 End: 12-21-2023 ambulatory Cristo RIVERA Facility:[facility] Start: 12-21-2023 End: 12-21-2023 Patient encounter procedure Cristo Yvrose NICOLE [facility] Start: 12-10-2023 Patient encounter procedure [facility] Start: 12-04-2023 End: 12-04-2023 ambulatory MD Mary Beth Pitts Work Phone: [facility] Work Phone: Start: 12-04-2023 End: 12-04-2023 Discharged Recurring MD Mary Beth Pitts Work Phone: [facility] Work Phone: Start: 11-26-2023 End: 11-26-2023 ambulatory MD Mary Beth Pitts Work Phone: [facility] Work Phone: Start: 11-26-2023 End: 11-26-2023 Patient encounter procedure MD Mray Beth Pitts Work Phone: [facility] Work Phone: Start: 11-23-2023 Non-patient / Non-visit MD Candie Pitts Work Phone: [facility] Work Phone: Start: 11-19-2023 End: 11-19-2023 ambulatory Cristo RIVERA Facility:[facility] Start: 11-19-2023 End: 11-19-2023 Patient encounter procedure Cristo RIVERA [facility] Start: 11-08-2023 Registered Recurring MD Mary Beth Pitts Work Phone: [facility] Work Phone: Start: 10-26-2023 Non-patient / Non-visit MD Candie Pitts Work Phone: [facility] Work Phone: Start: 10-18-2023 End: 10-18-2023 ambulatory [facility] Work Phone: Start: 10-18-2023 End: 10-18-2023 Patient encounter procedure [facility] Work Phone: Start: 10-05-2023 Non-patient / Non-visit [facility] Work Phone: Start: 10-04-2023 Non-patient / Non-visit [facility] Work Phone: Start: 09-13-2023 Non-patient / Non-visit [facility] Work Phone: Start: 09-03-2023 Non-patient / Non-visit [facility] Work Phone: Start: 08-18-2023 Non-patient / Non-visit [facility] Work Phone: Start: 07-12-2023 End: 07-12-2023 ambulatory KAMILA Nik STEVE Not Available Start: 06-25-2023 End: 06-25-2023 ambulatory Cristo RIVERA Facility:[facility] Start: 06-25-2023 End: 06-25-2023 Patient encounter procedure Cristo RIVERA [facility] Start: 04-04-2023 End: 04-04-2023 ambulatory Mary Beth Pitts Other [employer] Other Start: 04-04-2023 Telephone encounter Mary Beth Pitts [facility] Start: 02-26-2023 End: 02-26-2023 Patient encounter procedure Cristo Yvrose RIVERA [facility] Start: 12-29-2022 End: 12-29-2022 ambulatory Mahendra Escalante Other [employer] Other Start: 12-29-2022 Telephone encounter Mahendra barry [employer] Start: 11-27-2022 End: 11-27-2022 Patient encounter procedure Cristo RIVERA [facility] Start: 11-23-2022 End: 11-23-2022 ambulatory Mary Beth Pitts Other [employer] Other Start: 11-23-2022 Telephone encounter Mary Beth Pitts [facility] Start: 09-18-2022 End: 09-18-2022 ambulatory Mary Beth Pitts Other [employer] Other Start: 09-18-2022 Telephone encounter Mary Beth Pitts [facility] Start: 09-11-2022 End: 09-11-2022 ambulatory Mary Beth Pitts Other [employer] Other Start: 09-11-2022 Office outpatient vi sit 15 minutes Mary Beth Pitts [facility] Start: 08-24-2022 End: 08-24-2022 ambulatory Mary Beth Pitts Other [employer] Other Start: 08-24-2022 Office outpatient vi sit 15 minutes Mary Beth Pitts [facility] Start: 07-20-2022 End: 07-20-2022 Patient encounter procedure Cristo RIVERA [facility] Start: 07-18-2022 End: 06-29-2022 Patient encounter procedure Cristo RIVERA [facility] Start: 07-12-2022 End: 07-12-2022 ambulatory Mary Beth Pitts Other [employer] Other Start: 07-12-2022 Telephone encounter Mary Beth Pitts [facility] Start: 07-11-2022 Office outpatient vi sit 15 minutes Mary Beth Pitts [facility] Start: 07-11-2022 End: 07-11-2022 ambulatory MD Mary Beth Pitts Work Phone: [facility] Work Phone: Start: 07-11-2022 End: 07-11-2022 Patient encounter procedure MD Mary Beth Pitts Work Phone: [facility]-Ultrasound [facility] [place] Work Phone: Start: 06-05-2022 End: 06-05-2022 Patient encounter procedure Cristo RIVERA [facility] Start: 04-29-2022 End: 04-30-[address] CRISTO RIVERA Facility:H1 Start: 03-17-[address] Jc Shetty Facility:[id number] Start: 03-17-[address] Mary Beth Pitts Facility:[facility] Start: 03-17-[address] Mary Beth Pitts Facility:[id number] Start: 03-16-2022 End: 03-19-2022 Evaluation and management of inpatient MD Mary Beth Pitts Work Phone: [facility] Ctr-4 [facility] Start: 03-16-2022 End: 03-17-2022 ambulatory GALEN MEDINA Facility:H1 Start: 03-14-2022 End: 03-14-2022 Patient encounter procedure Cristo RIVERA [facility] Start: 03-03-2022 End: 03-04-[address] MARY BETH PITTS Facility:H1 Start: 02-27-2022 End: 02-27-2022 Patient encounter procedure Cristo RIVERA [facility] Start: 12-16-2021 End: 12-17-2021 ambulatory BLAS RAFITACARLEYJADYN [facility]iel[facility] Start: 12-08-2021 Adult health examination Mahendra Escalante Other [employer] Other Start: 12-08-2021 Problem, abnormal examination Mahendra Escalante Other [employer] Other Start: 12-01-2021 End: 12-02-2021 ambulatory [facility] Start: 12-01-2021 End: 12-01-2021 Subsequent hospital visit by physician Mary Beth Pitts MD Work Phone: [facility] Start: 09-19-2021 End: 09-19-2021 ambulatory MARY BETH PITTS [facility] Start: 09-19-2021 End: 09-19-2021 Subsequent hospital visit by physician Roberta Vazquez DO Work Phone: [facility] Start: 07-05-2021 End: 07-06-2021 ambulatory Gerald Villagomez MD Facility[facility] Start: 06-14-2021 End: 06-15-2021 ambulatory MD Mary Beth Pitts Facility:[facility] Start: 06-09-2021 End: 06-09-2021 ambulatory MD Mary Beth Pitts Facility:[facility] Start: 06-08-2021 End: 06-09-2021 ambulatory Gerald Villagomez MD Facility:[facility] Start: 06-02-2021 End: 06-03-2021 ambulatory MD Mary Beth Pitts Facility:[facility] Start: 05-27-2021 End: 05-28-2021 ambulatory Gerald Villagomez MD Facility:[facility] Start: 05-19-2021 End: 05-20-2021 ambulatory MD Mary Beth Pitts Facility:[facility] Start: 09-27-2020 End: 09-27-2020 Subsequent hospital visit by physician Mary Beth Pitts MD Work Phone: [facility] Laboratory Start: 03-29-2020 End: 03-30-2020 Patient encounter procedure SWETHA WINTER Facility:[facility] Start: 02-23-2020 End: 02-24-2020 Patient encounter procedure MARY BETH PITTS Facility:[facility] Start: 02-12-2020 End: 02-14-2020 Evaluation and management of inpatient PEREZ ALI Facility:[facility] Start: 11-04-2019 End: 11-05-2019 Evaluation and management of inpatient SANTANA MASROOR Facility:[facility] Start: 05-12-2019 End: 05-12-2019 Subsequent hospital visit by physician Mary Beth Pitts MD Work Phone: [facility] Laboratory Procedures Date Procedure Procedure Detail Performing Clinician Start: 10-26-2023 Bacteria identified in Urine by Culture MD Mary Beth Pitts Work Phone: Start: 10-04-2023 Bacteria identified in Urine by Culture Start: 10-04-2023 Blood Culture 1 Start: 10-04-2023 Blood Culture 2 Start: 07-18-2022 Cystoscopy Cristo MARTIN Start: 07-11-2022 [...] Comment on above: Performed By: #### [id number] ####[place] [address], [facility] Start: 11-04-2019 MEASURE OF ARTERIAL SATURATION, PERIPHERAL, PERC APPROACH REYNALDO COX Start: 11-04-2019 MEASURE OF CARDIAC S AMPL \T\ PRESSURE, L HEART, PERC APPROACH BLAS OSPINA Start: 11-04-2019 REPLACEMENT OF AORTI C VALVE WITH ZOOPLASTIC, PERC APPROACH SANTANA NITINPERCY Start: 10-31-2019 Antibody screen NIC AYALA Comment on above: Performed By: #### [id number] #### [facility] [address] [place] [address], [facility] Start: 05-12-2019 Blood count complete automated Blas Ospina MD Work Phone: Start: 03-03-2015 Screening for malign ant neoplasm of prostate Mahendra Virgenvasiliy Other Cataract (disorder) Cristo Seevibes Coronary artery bypa ss grafts x 4 [employer] Replacement of aortic valve Cristo Seevibes Screening for malign ant neoplasm of prostate Mary Beth Pitts Other Screening for malign ant neoplasm of prostate Mahendra Escalante Other Structure of femoral artery (body structure) Cristo Seevibes Urine culture MD Mary Beth murcia Work Phone: Plan of Treatment Date Care Activity Detail Author Start: 02-09-2025 ambulatory Ambulatory Facility:[facility] Start: 07-11-2022 Duplex scan of lower limb veins US venous duplex LE RT [facility] Start: 07-11-2022 US Lower extremity v ein - right [facility] Start: 03-21-2022 [facility] Start: 03-20-[address] [facility] Start: 03-20-2022 [facility] Start: 03-19-2022 [facility] Start: 03-18-2022 Referral to urologist [facility] Start: 03-17-2022 [facility] Start: 03-17-2022 Hospital admission [facility] Start: 03-17-2022 Referral to scientific systems analyst [facility] Start: 03-17-2022 [facility] Start: 01-12-2022 Influenza vaccination [facility] Start: 09-19-2021 End: 09-19-2021 Xcapsl ctrc rmvl insj io lens prosth w/o ecp EYE CATARACT EMULSIFICATION IOL IMPLANT COMBINED FORMS OF AGE RELATED CATARACT 2+NS, 2+PSC, 2+CS 09/19/2021 12:45 PM EDT [facility] Start: 09-04-2021 COVID-19 Vaccine (4 - Booster for Pfizer series) COVID-19 Vaccine (4 - Booster for Pfizer series) [facility] Start: 01-12-2021 Influenza vaccination Flu vacc ine (Season Ended) [employer] Work Phone: Start: 03-21-2019 A1C test (Diabetic o r Prediabetic) A1C test (Diabetic or Prediabetic) [employer] [facility] Phone: Start: 03-21-2019 Creatinine measurement [facility] Start: 03-21-2019 Creatinine monitoring Creatinine mon itoring [employer] [facility] Phone: Start: 03-21-2019 Diabetic microalbumi lucila test Diabetic microalbuminuria test [employer] [facility] Phone: Start: 03-21-2019 Hemoglobin A1c measurement A1C test (Diabetic or Prediabetic) [employer] [facility] Phone: Start: 03-21-2019 [facility] Start: 03-21-2019 Lipid screen [facility]id screen [facility] Work Phone: Start: 03-21-2019 Potassium [Moles/vol ume] in Serum or Plasma Potassium [employer] Start: 03-21-2019 Potassium monitoring Potassium monit oring [employer] [facility] Phone: Start: 01-12-2019 Influenza vaccination Flu vaccine (# 1) [employer] [facility] Phone: Start: 11-03-2018 Annual Wellness Visi t (AWV) Annual Wellness Visit (AWV) [employer] [facility] Phone: Start: 06-21-2018 Hemoglobin A1c measurement A1C test (Diabetic or Prediabetic) [facility] Start: 2013 Abdominal aortic ane urysm screening AAA screen [facility] Start: 2013 Pneumococcal 65+ yea rs Vaccine (1 - PCV) Pneumococcal 65+ years Vaccine (1 - PCV) [facility] Start: 2013 Pneumococcal 65+ yea rs Vaccine (1 of 1 - PPSV23) Pneumococcal 65+ years Vaccine (1 of 1 - PPSV23) [employer] [facility] Phone: Start: 1998 Colon cancer screen colonoscopy Colon cancer screen colonoscopy [employer] [facility] Phone: Start: 1998 Screening for malign ant neoplasm of colon Colon cancer screen colonoscopy [employer] [facility] Phone: Start: 1998 Shingles Vaccine (1 of 2) Shingles V accine (1 of 2) [facility] Start: 1993 Screening for malign ant neoplasm of colon [facility] Start: 1967 DTaP/Tdap/Td vaccine (1 - Tdap) DTaP/Tdap/Td vaccine (1 - Tdap) [facility] Start: 1966 Hepatitis C screening Hepatitis C sc reen [facility] Start: 1960 COVID-19 Vaccine (1) COVID-19 Vaccin e (1) [employer] [facility] Phone: Start: 1960 Depression Screen Depression Screen [facility] Start: 1959 DTaP/Tdap/Td vaccine (1 - Tdap) DTaP/Tdap/Td vaccine (1 - Tdap) [employer] [facility] Phone: Start: 1958 3 comp foot exam completed Diabetic foot exam [employer] [facility] Phone: Start: 1958 Diabetic foot examination Diabetic f oot exam [employer] [facility] Phone: Start: 1958 Diabetic retinal exam Diabetic retin al exam [employer] [facility] Phone: Start: 1948 AAA screen AAA screen [employer] Phone: Start: 1948 Abdominal aortic ane urysm screening AAA screen [employer] [facility] Phone: Start: 1948 Annual Wellness Visi t (AWV) Annual Wellness Visit (AWV) [facility] Start: 1948 Hepatitis C screen Hepatitis C kristi murcia [employer] Work Phone: Start: 1948 Hepatitis C screening Hepatitis C joby cordero [employer] Work Phone: Blood culture for bacteria, including anaerobic screen Blood Culture [facility] End: 12-01-2021 Hemoglobin A1c/Hemoglobin.total in Blood [facility] [employer] Work Phone: Comment on above: Once for 1 Occurrenc es starting 12/01/2021 until 12/01/2021 Oxygen therapy [[facility]] Initiate Oxygen Therapy Protocol Respiratory Care Routine Daily until discontinued starting 09/19/2021 [employer] [facility] Phone: Comment on above: Daily until disconti nued starting 09/19/2021 Patient Education Urinary Tract Infection, Adult (DC) Sepsis, Adult (DC) [facility] Work Phone: Patient referral [facility] Work Phone: US Lower extremity v ein - right [facility] XR Chest 2 Views [facility] Immunizations Immunization Date Immunization Notes Care Provider Olu oshea 08-28-2022 tetanus and diphther ia toxoids, adsorbed, preservative free, for adult use (2 Lf of tetanus toxoid and 2 Lf of diphtheria toxoid) [facility] 08-28-2022 tetanus and diphther ia toxoids, adsorbed, preservative free, for adult use (5 Lf of tetanus toxoid and 2 Lf of diphtheria toxoid) Mary Beth Pitts Other [employer] Other 05-06-2021 COVID-19, Pfizer Purple top, DILUTE for use, 12+ yrs, 30mcg/0.3mL dose Roberta Vazquez DO Work Phone: [employer] [facility] Phone: 10-22-2020 COVID-19, Pfizer Purple top, DILUTE for use, 12+ yrs, 30mcg/0.3mL dose Robertanancy Vazquez DO Work Phone: [employer] [facility] Phone: 10-01-2020 COVID-19, Pfizer Purple top, DILUTE for use, 12+ yrs, 30mcg/0.3mL dose Roberta Vazquez DO Work Phone: [employer] [facility] Phone: Payers Date Payer Category Payer Self-pay [id number] 2021 Medicare [id number] 2021 Medicaid 2020 Private Health Insurance 2017 Private Health Insurance [id number] 2014 Medicare MEDICARE MEDICAR E PART A AND B xxxxxxxxxxx 2014-Present [phone] [place] [address] xxxxxxxxxxx [id number] 1959 Medicaid [id number] 1948 Unknown [id number] 2.16.840.1.295829.3.579.2. 647 1948 Unknown [id number] 2.16.840.1.704071.3.579.2. 647 1948 Unknown [id number] 2.16.840.1.849007.3.579.2. 647 1948 Unknown [id number] 2.16.840.1.620906.3.579.2. 647 1948 Unknown [id number] 2.16.840.1.753368.3.579.2. 173 1948 Unknown [id number] 2.16.840.1.724805.3.579.2. 173 1948 Unknown [id number] 2.16.840.1.785853.3.579.2. 173 1948 Unknown [id number] 2.16.840.1.342758.3.579.2. 356 1948 Unknown [id number] 2.16.840.1.217512.3.579.2. 356 1948 Unknown [id number] 2.16.840.1.742752.3.579.2. 356 1948 Unknown [id number] 2.16.840.1.310544.3.579.2. 593 1948 Unknown [id number] 2.16.840.1.934315.3.579.2. 593 1948 Unknown [id number] 2.16.840.1.529798.3.579.2. 593 1948 Unknown [id number] 2.16.840.1.824137.3.579.2. 196 1948 Unknown [id number] 2.16.840.1.572159.3.579.2. 196 1948 Unknown [id number] 2.16.840.1.187465.3.579.2. 196 1948 Unknown [id number] 2.16.840.1.948620.3.579.2. 196 1948 Unknown [id number] 2.16.840.1.276718.3.579.2. 196 1948 Unknown [id number] 2.16.840.1.956174.3.579.2. 196 1948 Unknown [id number] 2.16.840.1.391252.3.579.2. 196 1948 Unknown [id number] 2.16.840.1.485382.3.579.2. 1259 1948 Unknown [id number] 2.16.840.1.605435.3.579.2. 727 1948 Unknown [id number] 2.16.840.1.793572.3.579.2. 1948 Unknown [id number] 2.16.840.1.056957.3.579.2. 1948 Unknown [id number] 2.16.840.1.874767.3.579.2. 1948 Unknown [id number] 2.16.840.1.599628.3.579.2. 1948 Unknown [id number] 2.16.840.1.423442.3.579.2. 1948 Unknown [id number] 2.16.840.1.572786.3.579.2. 1948 Unknown [id number] 2.16.840.1.274110.3.579.2. 1948 Unknown [id number] 2.16.840.1.925093.3.579.2. 1948 Unknown [id number] 2.16.840.1.996875.3.579.2. 1948 Unknown [id number] 2.16.840.1.046665.3.579.2. 1948 Unknown [id number] 2.16.840.1.874143.3.579.2. 1948 Unknown [id number] 2.16.840.1.066468.3.579.2. 1948 Unknown [id number] 2.16.840.1.619640.3.579.2. Medicaid Medicaid [id number] Medicare [id number] Medicare [id number] 2.16.840.1.530719.19 Unknown HCAP/HFA/FAP Active [id number] Social History Date Type Detail Facility Start: 10-29-2014 End: 12-04-2023 Tobacco smoking status NHIS Former smoker [facility] End: 05-14-1994 History of tobacco use Current smoker [facility] Start: 10-29-2014 End: 09-19-2021 Alcohol intake Current non-drinker of alcohol (finding) [facility] [facility] Phone: Start: 1950 Sex Assigned At Not on file [facility] Phone: Start: 09-09-2021 End: 09-19-2021 Exposure to SARS-CoV-2 (event) Not sure [facility] [facility] Phone: End: 05-14-1994 History of tobacco use Cigarette Smoker [employer] Phone: Start: 09-19-2021 Tobacco use and exposure Smoke less tobacco non-user [employer] Phone: Start: 06-25-2023 End: 02-15-2024 Tobacco smoking status Never [facility] Sex Assigned At Male [facility] Start: 1950 Sex Assigned At Male [facility] Start: 06-25-2024 End: 09-02-2024 Sex Male (finding) [facility] Sexual Orientation [facility] Medical Equipment Procedure Code Equipment Code Equipment Origin al Text Equipment Identifier Dates Lens Intraocular Bcnvx 19+ Diopt 6x12.5 Mm Acryl Envista - [id number] Start: 09-19-2021 Accu-Chek Softcl ix Lancets - Start: 11-22-2022 Goals Date Patient Goal Desired Activity /State Functional Status Date Assessment Result Facility 09-29-2024 Functional Status N/A [facility] 06-09-2024 Functional Status N/A [facility] 02-15-2024 Functional Status N/A [facility] 12-21-2023 Functional Status N/A [facility] 11-19-2023 Functional Status N/A [facility] 06-25-2023 Functional Status N/A [facility] 02-26-2023 Functional Status N/A [facility] 11-27-2022 Functional Status N/A [facility] 06-05-2022 Functional Status N/A [facility] 03-19-2022 Functional status Patient at [facility] Work Phone: 03-16-2022 Functional status Functional Status Comme nt [facility] Work Phone: 03-14-2022 Functional Status N/A [facility] 02-27-2022 Functional Status N/A [facility] Mental Status Date Assessment Result Facility 03-19-2022 Cognitive function Cognitive Sta tus Patient at Baseline [facility] Work Phone: Clinical Notes 06-09-2021 to 12-22-2024 Note Date & Type Note Facility 12-22-2024 Note [facility] Subjective Marilu Dan is a 74 y.o. year old male patient being seen for 6 mo follow up with Echo. Patient states he feels ok., Patient complains chest pain which radiates to left arm, fatigue, PUENTE, SOB, occasional leg swelling, fatigue. Patient is on home o2 @ 2lpm via n/c 07/12 Patient Active Problem List Diagnosis Aortic valve stenosis Chest pain Closed fracture of shaft of tibia Coronary arteriosclerosis Deep venous thrombosis of lower extremity (CMS/HCC) Dyspnea Hypertensive disorder PAD (peripheral artery disease) Hydrocele in adult Syncope and collapse Family History Problem Relation Name Age of Onset Diabetes Mother Heart attack Mother Diabetes Father Heart attack Father Breast cancer Sister Colon cancer Brother Cervical cancer Child Social History Tobacco Use Smoking status: Former Current packs/day: 0.00 Types: Cigarettes Quit date: 1980 Years since quittin.6 Smokeless tobacco: Never Vaping Use Vaping status: Never Used Substance Use Topics Alcohol use: Not Currently Drug use: Not Currently HPI Mr Dan is seen in follow [...] Severe 3-vessel coronary artery disease. 2. Patent /4 bypass grafts. 3. A 50% disease in [...] extremity DVT after he was lifting the blower insulator. Duplex of upper extremity 06/17/2018 showed SVT [...] Grade 1, mild diastolic dysfunction (abnormal relaxation). (more content not included)... [facility] 10-27-2024 Note Patient Education Nutrition BMI for Adults Body mass index (BMI) is a number found using a person's weight and height. BMI can help tell how much of a person's weight is made up of fat. BMI does not measure body fat directly. It is used instead of tests that directly measure body fat, which can be difficult and expensive. What are BMI measurements used for? BMI is useful to: ??? Find out if your weight puts you at higher risk for medical problems. ??? Help recommend changes, such as in diet and exercise. This can help you reach a healthy weight. BMI screening can be done again to see if these changes are working. How is BMI calculated? Your height and weight are measured. The BMI is found from those numbers. This can be done with U.S. or metric measurements. Note that charts and online BMI calculators are available to help you find your BMI quickly and easily without doing these calculations. To calculate your BMI in U.S. measurements: 1. Measure your weight in pounds (lb). 2. Multiply the number of pounds by 703. ??? So, for an adult who weighs 150 lb, multiply that number by 703: 150 x 703, which equals 105,450. 3. Measure your height in inches. Then multiply that number by itself to get a measurement called inches squared. ??? So, for an adult who is 70 inches tall, the inches squared measurement is 70 inches x 70 inches, which equals 4,900 inches squared. 4. Divide the total from step 2 (number of lb x 703) by the total from step 3 (inches squared): 105,450 ? 4,900 = 21.5. This is your BMI. To calculate your BMI in metric measurements: 1. Measure your weight in kilograms (kg). ??? For this example, the weight is 70 kg. 2. Measure your height in meters (m). Then multiply that number by itself to get a measurement called meters squared. ??? So, for an adult who is 1.75 m tall, the meters squared measurement is 1.75 m x 1.75 m, which equals 3.1 meters squared. 3. Divide the number of kilograms (your weight) by the meters squared number. In this example: 70 ? 3.1 = 22.6. This is your BMI. What do the results mean? BMI charts are used to see if you are underweight, normal weight, overweight, or obese. The following guidelines will be used: ??? Underweight: BMI less than 18.5. ??? Normal weight: BMI between 18.5 and 24.9. ??? Overweight: BMI between 25 and 29.9. ??? Obese: BMI of 30 or above. BMI is a tool and cannot diagnose a condition. Talk with your health care provider about what your BMI means for you. Keep these notes in mind: ??? Weight includes fat and muscle. Someone with a muscular build, such as an athlete, may have a BMI that is higher than 24.9. In cases like these, BMI is not a correct measure of body fat. ??? If you have a BMI of 25 or higher, your provider may need to do more testing to find out if excess body fat is the cause. ??? BMI is measured the same way for males and females. Females usually have more body fat than males of the same height and weight. Where to find more information For more information about BMI, including tools to quickly find your BMI, go to: ??? Centers for Disease Control and Prevention: cdc.gov ??? [place] Heart Association: heart.org ??? National Heart, Lung, and Blood [place]: nhlbi.nih.gov This information is not intended to replace advice given to you by your health care provider. Make sure you discuss any questions you have with your health care provider. Document Revised: 01/18/2023 Document Reviewed: 01/11/2023 [employer] Patient Education ? 2023 [employer]. [facility] 09-29-2024 Hospital Discharge instructions Patient Education 09/29/2024 10:25:01 Hematuria, Adult Hematuria, Adult Hematuria is blood in the urine. Blood may be visible in the urine, or it may be identified with a test. This condition can be caused by infections of the bladder, urethra, kidney, or prostate. Other possible causes include: Kidney stones. Cancer of the [...] blood in your urine, even if it is painless or the blood stops without treatment. Blood in the urine, when it happens and then stops and then happens again, can be a symptom of a very serious condition, including cancer. There is no pain in the initial stages of many urinary cancers. Follow these instructions at home: Medicines Take iicy-mwg-iustbsv and prescription medicines only as told by your health care provider. If you were prescribed an antibiotic medicine, take it as told by your health care provider. Do not stop taking the antibiotic even if you start to feel better. Eating and drinking Drink enough fluid to keep your urine pale yellow. It is recommended that you drink 3 4 quarts (2.8 3.8 L) a day. If you have been diagnosed with an infection, drinking cranberry juice in addition to large amounts of water is recommended. Avoid caffeine, tea, and carbonated beverages. These tend to irritate the bladder. Avoid alcohol because it may irritate the prostate (in males). General instructions If you have been diagnosed [...] changes or any new symptoms. It is up to you to get the results of any tests. Ask your health care provider, or the department that is doing the test, when your results will be ready. Keep all follow-up visits. This is important. Contact a health care provider if: You develop back pain. You have a fever or chills. You have nausea or vomiting. Your symptoms do not improve after 3 days. Your symptoms get worse. Get help right away if: You develop severe vomiting and are unable to take medicine without vomiting. You develop severe [...] blood in your urine, even if it is painless or the blood stops without treatment. Take hbpi-wqq-cgyzaph and prescription medicines only as told by your health care provider. Drink enough fluid to keep your urine pale yellow. This information is not intended to replace advice given to you by your health care provider. Make sure you discuss any questions you have with your health care provider. Document Revised: 12/29/2020 Document Reviewed: 12/29/2020 [employer] Patient Education 2023 [employer]. Follow Up Care 06/09/2024 11:17:59 With:NICOLE DIAZ, Cristo Frances, URL Address: [facility] [address], [place] [place] [address]- [phone] When: Unknown [facility] [place] 09-29-2024 Note Patient Education Urology Hematuria, Adult Hematuria is blood in the urine. Blood may be visible in the urine, or it may be identified with a test. This condition can be caused by infections of the bladder, urethra, kidney, or prostate. Other possible causes include: ??? Kidney stones. ??? Cancer of the urinary tract. ??? Too much calcium in the urine. ??? Conditions that are passed from parent to child (inherited conditions). ??? Exercise that requires a lot of energy. [...] blood in your urine, even if it is painless or the blood stops without treatment. Blood in the urine, when it happens and then stops and then happens again, can be a symptom of a very serious condition, including cancer. There is no pain in the initial stages of many urinary cancers. Follow these instructions at home: Medicines ??? Take pyuj-auy-qqyriyy and prescription medicines only as told by your health care provider. ??? If you were prescribed an antibiotic medicine, take it as told by your health care provider. Do not stop taking the antibiotic even if you start to feel better. Eating and drinking ??? Drink enough fluid to keep your urine pale yellow. It is recommended that you drink 3?4 quarts (2.8?3.8 L) a day. If you have been diagnosed with an infection, drinking cranberry juice in addition to large amounts of water is recommended. ??? Avoid caffeine, tea, and carbonated beverages. These tend to irritate the bladder. ??? Avoid alcohol because it may irritate the prostate (in males). General instructions ??? If you have been diagnosed with a kidney stone, follow your health care provider's instructions about straining your urine to catch the stone. ??? Empty your bladder often. Avoid holding urine for long periods of time. ??? If you are female: ? After a bowel movement, wipe from front to back and use each piece of toilet paper only once. ? Empty your bladder before and after sex. ??? Pay attention to any changes in your symptoms. Tell your health care provider about any changes or any new symptoms. ??? It is up to you to get the results of any tests. Ask your health care provider, or the department that is doing the test, when your results will be ready. ??? Keep all follow-up visits. This is important. Contact a health care provider if: ??? You develop back pain. ??? You have a fever or chills. ??? You have nausea or vomiting. ??? Your symptoms do not improve after 3 days. ??? Your symptoms get worse. Get help right away if: ??? You develop severe vomiting and are unable to take medicine without vomiting. ??? You develop severe pain in your back or abdomen even though you are taking medicine. ??? You pass a large amount of blood in your urine. ??? You pass blood clots in your urine. ??? You feel very weak or like you might faint. ??? You faint. Summary ??? Hematuria is blood in the urine. It has many possible causes. ??? It is very important that you tell your health care provider about any blood in your urine, even if it is painless or the blood stops without treatment. ??? Take lglu-dfs-emgxeqt and prescription medicines only as told by your health care provider. ??? Drink enough fluid to keep your urine pale yellow. This information is not intended to replace advice given to you by your health care provider. Make sure you discuss any questions you have with your health care provider. Document Revised: 12/29/2020 Document Reviewed: 12/29/2020 [employer] Patient Education ? 2023 [employer] [facility] 07-18-2024 Note DEPARTMENT OF VASCUL AR SURGERY Subjective Marilu Dan is a 73 y.o. male with PAD s/p right [employer], SFA and Profunda endarterectomy with patch angioplasty on 09/10/23 who presents today for follow-up visit and to review ABIs which were done this morning. He was recently hosptilized for influenza A. He does continue to have some numbness to the foot which is unchanged throught day and night. He is not walking much due to his other comorbidities but he is not complaining of claudication symptoms. Was previously on plavix but has not been taking this nor aspirin. He is on Xarelto alf for history of VTE. Patient ABIs prior to visit which demonstrated noncompressible vessels bilaterally with TBI on the right 1.40 left TBI 0.61. Waveforms were appropriate and showed no significant occlusive disease. Has also noted to have chronic swelling of the right foot with some new skin changes which has been ongoing for the last few months. Review of Systems Constitutional: Negative for activity change, appetite change, chills, diaphoresis, fatigue, fever and unexpected weight change. HENT: Negative for congestion, dental problem, drooling, ear discharge, ear pain, facial swelling, hearing loss, mouth sores, nosebleeds, postnasal drip, rhinorrhea, sinus pressure, sinus pain, sneezing, sore throat, tinnitus, trouble swallowing and voice change. Eyes: Negative for photophobia, pain, discharge, redness, itching and visual disturbance. Respiratory: Negative for apnea, cough, choking, chest tightness, shortness of breath, wheezing and stridor. Cardiovascular: Negative for chest pain, palpitations and leg swelling. Gastrointestinal: Negative for abdominal distention, abdominal pain, anal bleeding, blood in stool, constipation, diarrhea, nausea, rectal pain and vomiting. Endocrine: Negative for cold intolerance, heat intolerance, polydipsia, polyphagia and polyuria. Genitourinary: Negative for decreased urine volume, difficulty urinating, dysuria, enuresis, flank pain, frequency, genital sores, hematuria, penile discharge, penile pain, penile swelling, scrotal swelling, testicular pain and urgency. Musculoskeletal: Negative for arthralgias, back pain, gait problem, joint swelling, myalgias and neck pain. Skin: Negative for color change, pallor, rash and wound. Allergic/Immunologic: Negative for environmental allergies, food allergies and immunocompromised state. Neurological: Negative for dizziness, tremors, seizures, syncope, facial asymmetry, speech difficulty, weakness, light-headedness, numbness and headaches. Hematological: Negative for adenopathy. Does not bruise/bleed easily. Psychiatric/Behavioral: Negative for agitation, behavioral problems, confusion, decreased concentration, dysphoric mood, hallucinations, self-injury, sleep disturbance and suicidal ideas. The patient is not nervous/anxious and is not hyperactive. Objective Visit Vitals BP 136/73 (BP Location: Left arm, Patient Position: Sitting, BP Cuff Size: Adult) Pulse 76 Resp 18 Physical Exam Constitutional: General: He is not in acute distress. Appearance: Normal appearance. He is not ill-appearing. HENT: Head: Normocephalic and atraumatic. Eyes: General: No scleral icterus. Pupils: Pupils are equal, round, and reactive to light. Cardiovascular: Rate and Rhythm: Normal rate and regular rhythm. Comments: Weakly palpable DP, PT on the right consistent with prior exams Mild stemmer sign, hyperkeratosis to the toes. Mild edema RLE foot and calf Right groin hematoma resolved Pulmonary: Effort: Pulmonary effort is normal. Breath [...] Content: Thought content normal. Judgment: Judgment normal. Imaging reviewed: I independently reviewed and interpreted the following images: Segmental AJIT bilateral 07/18/34- calcified non-compressible vessels with adequate waveforms, normal toe pressures. Assessment/Plan Diagnoses and all orders for this visit: PAD (peripheral artery disease) - His arterial disease is stable with adequate waveforms and normal toe pressures. The numbness in the foot is most likely neuropathic, his thigh numbness is related to the procedure and should improve. He has no tissue loss or claudication. Continue best medical therapy - Patient is not taking antiplatelet currently. He was previously on Plavix, unclear why he stopped. Seems hesitant to start Plavix for some reason. He is okay with starting baby aspirin. Prescription sent. - GDMT: (more content not included)... [facility] 07-03-2024 Note [place] [facility] Subjective Marilu Dan is a 74 y.o. year old male patient being seen for 6 mo follow up CAD, PAD, and hx of TAVR. He's just getting over the flu so is still SOB. Denies chest pain, palpitations, lightheadedness/syncope, and bleeding on Xarelto. Patient Active Problem List Diagnosis Aortic valve stenosis Chest pain Closed fracture of shaft of tibia Coronary arteriosclerosis Deep venous thrombosis of lower extremity (CMS/HCC) Dyspnea Hypertensive disorder PAD (peripheral artery disease) Hydrocele in adult Syncope and collapse Family History Problem Relation Name Age of Onset Diabetes Mother Heart attack Mother Diabetes Father Heart attack Father Breast cancer Sister Colon cancer Brother Cervical cancer Child Social History Tobacco Use Smoking status: Former Current packs/day: 0.00 Types: Cigarettes Quit date: 1980 Years since quittin.1 Smokeless tobacco: Never Vaping Use Vaping status: Never Used Substance Use Topics Alcohol use: Not Currently Drug use: Not Currently HPI Mr Dan is seen in follow [...] extremity DVT after he was lifting the blower insulator. Duplex of upper extremity 06/17/2018 showed SVT [...] dysfunction (abnormal relaxation). Normal right ventricular systolic (more content not included)... [facility] 06-25-2024 Evaluation note Diagnosis Onset Date Resolution Fever acute June 25, 2024 9:35am Influenza A acute June 9:35am [facility] Work Phone: 1(829) 100-242802-12-2025 Evaluation note* Diagnosis Onset Date Resolution Status Admit Date Fever acute June 25, 2024 9:35am Influenza A acute June 9:35am Acute metabolic encephalopathy acute July 11, 2024 10:21am Dehydration acute June 10:21am Diabetes mellitus, type 2 acute July 11, 2024 10:21am Hypoxia acute July 11, 2024 10:21am Influenza A acute June 10:21am Lactic acid acidosis acute ua2024 10:21am Leg edema, right acute September 022024 9:19am [facility] Work Phone: [phone]) 816-909001-27-2025 Hospital Discharge instructions Patient Education 06/09/2024 11:12:48 Prostatitis Prostatitis Prostatitis is swelling or inflammation of the prostate gland, also called the prostate. This glandis about 1.5 inches wide and 1 inch [...] quickly and results from an acute bacterial infectionin the prostate gland. It is usually associated [...] when the body's disease-fighting system attacks healthy tissuein the body by mistake. Psychological factors. These [...] Follow these instructions at home: Medicines Take dsrz-zwn-blzzzij and prescription medicines only as told by your health care provider. If you were prescribed an antibiotic medicine, take it as told by your health care provider. Do notstop using the antibiotic even if you start to feel better. Managing pain and swelling Take sitz baths as directed by your health care provider. For a sitz bath, sit in warm water that is deep enough to cover your hips and buttocks. If directed, apply heat to the affected area as often as told by your health care provider. Use theheat source that your health care provider recommends, [...] important. Where to find more information [place] of Diabetes and Digestive and Kidney Diseases: [...] depends on the type of prostatitis. Take jdwo-xed-siauotw and prescription medicines only as told by your health care provider. Get help right away of you have chills, feel light-headed, feel like you may faint, cannot urinate,or have blood or blood clots in your urine. This information is not intended to replace advice given to you by your health care provider. Make sure you discuss any questions you have with your health care provider. Document Revised: 03/15/2023 Document Reviewed: 03/15/2023 [employer] Patient Education 2023 [employer] Follow Up Care 02/15/2024 10:00:51 With:NICOLE DIAZ, Cristo Frances, URL Address: [facility] [address], [place] [phone] When: Unknown Comments:4 mos w/ PVR [facility] [place] 01-27-2025 NotePatient Education Infectious Disease Prostatitis Prostatitis is swelling or inflammation of the prostate gland, also called the prostate. This glandis about 1.5 inches wide and 1 inch [...] other disorders of the urinary tract or reproductivetract. ??? Acute bacterial prostatitis. This type starts [...] these instructions at home: Medicines ??? Take bjgn-hcr-pmahroc and prescription medicines only as told by your health care provider. ??? If you were prescribed an antibiotic medicine, take it as told by your health care provider. Donot stop using the antibiotic even if you start to feel better. Managing pain and swelling ??? Take sitz baths as directed by your health care provider. For a sitz bath, sit in warm water that is deep enough to cover your hips and buttocks. ??? If directed, apply heat to the affected area as often as told by your health care provider. Usethe heat source that your health care provider [...] provider. This is important. (more content not included)...[facility]10-04-2024 Hospital Discharge instructions Patient Education 02/15/2024 09:33:03 Prostatitis Prostatitis Prostatitis is swelling or inflammation of the prostate gland, also called the prostate. This glandis about 1.5 inches wide and 1 inch [...] quickly and results from an acute bacterial infectionin the prostate gland. It is usually associated [...] when the body's disease-fighting system attacks healthy tissuein the body by mistake. Psychological factors. These [...] Follow these instructions at home: Medicines Take nfzw-ubb-ezcadnu and prescription medicines only as told by your health care provider. If you were prescribed an antibiotic medicine, take it as told by your health care provider. Do notstop using the antibiotic even if you start to feel better. Managing pain and swelling Take sitz baths as directed by your health care provider. For a sitz bath, sit in warm water that is deep enough to cover your hips and buttocks. If directed, apply heat to the affected area as often as told by your health care provider. Use theheat source that your health care provider recommends, [...] important. Where to find more information [place] of Diabetes and Digestive and Kidney Diseases: [...] depends on the type of prostatitis. Take lbji-ouo-ozwdkbu and prescription medicines only as told by your health care provider. Get help right away of you have chills, feel light-headed, feel like you may faint, cannot urinate,or have blood or blood clots in your urine. This information is not intended to replace advice given to you by your health care provider. Make sure you discuss any questions you have with your health care provider. Document Revised: 03/15/2023 Document Reviewed: 03/15/2023 [employer] Patient Education 2023 [employer] Follow Up Care 12/21/2023 08:32:25 With:NICOLE DIAZ, Cristo Frances, URL Address: [address] [place] [phone] When: Unknown [facility] 10-04-2024 NotePatient Education Infectious Disease Prostatitis Prostatitis is swelling or inflammation of the prostate gland, also called the prostate. This glandis about 1.5 inches wide and 1 inch [...] tone in the area between the hip bones(pelvic area), around the prostate. This type is also known as a pelvic floor disorder. ? Chronic bacterial prostatitis. This type usually results from an acute bacterial infection in theprostate gland that keeps coming back or has [...] with a bladder infection, high fever, and chills.This is the least common type of prostatitis. [...] of your body that drains urine from thebladder (urethra). How is this treated? Treatment for [...] these instructions at home: Medicines ? Take lqml-plc-wtgajuv and prescription medicines only as told by [...] a sitz bath, sit in warm water thatis deep enough to cover your hips and [...] Where to find more information ? [place] of Diabetes and Digestive a (more content not included)... [facility]08-12-2024 NoteSubjective Patient ID: Marilu Dan is a 73 y.o. male who presents for No chief complaint on file.. HPI Review of Systems Constitutional: Negative for activity change, appetite change, chills, diaphoresis, fatigue, fever and unexpected weight change. HENT: Negative for congestion, dental problem, drooling, ear discharge, ear pain, facial swelling, hearing loss, mouth sores, nosebleeds, postnasal drip, rhinorrhea, sinus pressure, sinus pain, sneezing, sore throat, tinnitus, trouble swallowing and voice change. Eyes: Negative for photophobia, pain, discharge, redness, itching and visual disturbance. Respiratory: Negative for apnea, cough, choking, chest tightness, shortness of breath, wheezing and stridor. Cardiovascular: Positive for leg swelling. Negative for chest pain and palpitations. Gastrointestinal: Positive for constipation. Negative for abdominal distention, abdominal pain, anal bleeding, blood in stool, diarrhea, nausea, rectal pain and vomiting. Endocrine: Negative for cold intolerance, heat intolerance, polydipsia, polyphagia and polyuria. Genitourinary: Negative for decreased urine volume, difficulty urinating, dysuria, enuresis, flank pain, frequency, genital sores, hematuria, penile discharge, penile pain, penile swelling, scrotal swelling, testicular pain and urgency. Musculoskeletal: Negative for arthralgias, back pain, gait problem, joint swelling, myalgias, neck pain and neck stiffness. Skin: Negative for color change, pallor, rash and wound. Allergic/Immunologic: Negative for environmental allergies, food allergies and immunocompromised state. Neurological: Positive for dizziness. Negative for tremors, seizures, syncope, facial asymmetry, speech difficulty, weakness, light-headedness, numbness and headaches. Hematological: Negative for adenopathy. Does not bruise/bleed easily. Psychiatric/Behavioral: Negative for agitation, behavioral problems, confusion, decreased concentration, dysphoric mood, hallucinations, self-injury, sleep disturbance and suicidal ideas. The patient is not nervous/anxious and is not hyperactive. All other systems reviewed and are negative. Objective There were no vitals taken for this visit. Physical Exam Assessment/Plan No diagnosis found. No orders of the defined types were placed in this encounter. No results found for this or any previous visit (from the past 36 hour(s)). No follow-ups on file.[facility]08-12-2024 Note Subjective Patient ID: Marilu Dan is a 73 y.o. male who presents for No chief complaint on file.. Marilu Dan is a 73 y.o. male with PAD s/p right [employer], SFA and Profunda endarterectomy with patch angioplasty on 09/10/23 who presents today for follow-up visit and to review ABIs which were done this morning. Patient is doing relatively well, his claudication symptoms he had from prior to surgery have much improved. He does have continued reperfusion edema to the right leg however this is also significantly improved over time. He continues to have numbness to the inner thigh unchanged. His hematoma to the right groin continues to improve. He is on Plavix, Xarelto (history of recurrent DVT), statin. Patient ABIs prior to visit which demonstrated noncompressible vessels bilaterally with TBI on the right 1.04, left TBI 0.61. Waveforms were appropriate and showed no evidence of significant occlusive disease. Review of Systems Constitutional: Negative for activity change, appetite change, chills, diaphoresis, fatigue, fever and unexpected weight change. HENT: Negative for congestion, dental problem, drooling, ear discharge, ear pain, facial swelling, hearing loss, mouth sores, nosebleeds, postnasal drip, rhinorrhea, sinus pressure, sinus pain, sneezing, sore throat, tinnitus, trouble swallowing and voice change. Eyes: Negative for photophobia, pain, discharge, redness, itching and visual disturbance. Respiratory: Negative for apnea, cough, choking, chest tightness, shortness of breath, wheezing and stridor. Cardiovascular: Positive for leg swelling. Negative for chest pain and palpitations. Gastrointestinal: Positive for constipation. Negative for abdominal distention, abdominal pain, anal bleeding, blood in stool, diarrhea, nausea, rectal pain and vomiting. Endocrine: Negative for cold intolerance, heat intolerance, polydipsia, polyphagia and polyuria. Genitourinary: Negative for decreased urine volume, difficulty urinating, dysuria, enuresis, flank pain, frequency, genital sores, hematuria, penile discharge, penile pain, penile swelling, scrotal swelling, testicular pain and urgency. Musculoskeletal: Negative for arthralgias, back pain, gait problem, joint swelling, myalgias, neck pain and neck stiffness. Skin: Negative for color change, pallor, rash and wound. Allergic/Immunologic: Negative for environmental allergies, food allergies and immunocompromised state. Neurological: Positive for dizziness. Negative for tremors, seizures, syncope, facial asymmetry, speech difficulty, weakness, light-headedness, numbness and headaches. Hematological: Negative for adenopathy. Does not bruise/bleed easily. Psychiatric/Behavioral: Negative for agitation, behavioral problems, confusion, decreased concentration, dysphoric mood, hallucinations, self-injury, sleep disturbance and suicidal ideas. The patient is not nervous/anxious and is not hyperactive. All other systems reviewed and are negative. Objective Visit Vitals BP 119/57 (BP Location: Left arm, Patient Position: Sitting, BP Cuff Size: Adult) Pulse 78 Temp 36.6 ???C (97.8 ???F) (Temporal) Physical Exam Constitutional: General: He is not in acute distress. Appearance: Normal appearance. He is not ill-appearing. HENT: Head: Normocephalic and atraumatic. Eyes: General: No scleral icterus. Pupils: Pupils are equal, round, and reactive to light. Cardiovascular: Rate and Rhythm: Normal rate and regular rhythm. Comments: Weakly palpable DP, PT on the right consistent on discharge day from hospital Right groin incision remains well-healed. Just distal to the incision there is remaining hematoma about the size of a golf ball. without pulsatility, erythema, calor, induration. Non TTP 1+ pitting edema to the right lower extremity Pulmonary: Effort: Pulmonary effort is normal. Breath [...] Thought content normal. Judgment: Judgment normal. Assessment/Plan -Repeat ABIs with patient today, his AJIT is noncompressible overall improved from prior to surgery and waveforms WNL. The edema to his right lower extremity continues to improve, I do recommend wearing compression stockings to help with this. -Recommend walking for CV health -Continue goal-directed medical therapy-some confusion on his med list as he did not have Plavix listed but if this is what he is currently taking. He is on Plavix, Xarelto, statin. MA did addend his medication list today -His hemat (more content not included)...[facility] 12-21-2023 Hospital Discharge instructions Patient Education [...] is now rare in many areas because ofvaccination. Other viruses that can cause orchitis include: [...] pain in the scrotum. Other signs and symptomsmay include: Feeling generally sick (malaise). Fever and [...] told by your health care provider. Take xahe-xtq-spyyibt and prescription medicines only as told by [...] It may include medicines to fight the infection,reduce inflammation, and relieve the pain. Follow your health care provider's instructions about resting, icing, not having sex, and taking medicines. This information is not intended to replace advice given to you by your health care provider. Make sure you discuss any questions you have with your health care provider. Document Revised: 11/08/2021 Document Reviewed: 11/08/2021 [employer] Patient Education 2022 [employer]. 12/21/2023 08:28:11 Epididymitis Epididymitis Epididymitis is inflammation or swelling of the epididymis. This is caused by an infection. The epididymis is a cord-like structure that is located along the top and back part of the testicle. It collects and stores sperm from the testicle. This condition can also cause pain and swelling of the testicle and scrotum. Symptoms usually startsuddenly (acute epididymitis). Sometimes epididymitis starts gradually and [...] Follow these instructions at home: Medicines Take ovpf-smc-crcrnuo and prescription medicines only as told by your health care provider. If you were prescribed an antibiotic medicine, take it as told by your health care provider. Do notstop taking the antibiotic even if your condition [...] Ask your health care provider if you shouldwear a scrotal support, such as a jockstrap. [...] provider. Document Revised: 12/07/2021 Document Reviewed: 12/07/2021 [employer] Patient Education 2022 [employer] Follow Up Care 11/19/2023 09:46:55 With:NICOLE DIAZ, Cristo Frances, URL Address: [address] [place] [id number]- When: Unknown [facility] 08-09-2024 NotePatient Education Urology Orchitis Orchitis is inflammation of [...] pain in the scrotum. Other signs and symptomsmay include: ? Feeling generally sick (malaise). ? [...] by your health care provider. ? Take jlkx-rds-jbfqirq and prescription medicines only as told by [...] your health care provider (more content not included)...[facility]07-08-2024 Hospital Discharge instructions Patient Education 11/19/2023 09:36:27 [...] of the testicle and scrotum. Symptoms usually startsuddenly (acute epididymitis). Sometimes epididymitis starts gradually and [...] Follow these instructions at home: Medicines Take vvaa-gmc-jnzjylj and prescription medicines only as told by your health care provider. If you were prescribed an antibiotic medicine, take it as told by your health care provider. Do notstop taking the antibiotic even if your condition [...] Ask your health care provider if you shouldwear a scrotal support, such as a jockstrap. [...] provider. Document Revised: 12/07/2021 Document Reviewed: 12/07/2021 [employer] Patient Education 2022 [employer] 11/19/2023 09:36:26 Orchitis Orchitis Orchitis is inflammation [...] is now rare in many areas because ofvaccination. Other viruses that can cause orchitis include: [...] pain in the scrotum. Other signs and symptomsmay include: Feeling generally sick (malaise). Fever and [...] told by your health care provider. Take baxr-xzz-mwwthjp and prescription medicines only as told by [...] It may include medicines to fight the infection,reduce inflammation, and relieve the pain. Follow your health care provider's instructions about resting, icing, not having sex, and taking medicines. This information is not intended to replace advice given to you by your health care provider. Make sure you discuss any questions you have with your health care provider. Document Revised: 11/08/2021 Document Reviewed: 11/08/2021 [employer] Patient Education 2022 [employer]. Follow Up Care 05/28/2023 09:33:29 With:NICOLE DIAZ, Cristo Frances, URL Address: [facility] [address] , [place] [phone] When: Unknown Comments:1 month (no labs) [facility] [place] 07-08-2024 NotePatient Education Urology Epididymitis Epididymitis is inflammation or swelling of the epididymis. This is caused by an infection. The epididymis is a cord-like structure that is located along the top and back part of the testicle. It collects and stores sperm from the testicle. This condition can also cause pain and swelling of the testicle and scrotum. Symptoms usually startsuddenly (acute epididymitis). Sometimes epididymitis starts gradually and [...] these instructions at home: Medicines ? Take vhoo-ast-zyartno and prescription medicines only as told by [...] warm water bath that is taken while youare sitting down. The water should come up to your hips and should cover your buttocks. Do this 3?4times per day or as told by your health care provider. General instructions ? Drink enough fluid to keep (more content not included)...[facility]06-27-2024 Progress note Author Narcisa Mckee [facility] November 08, 2023 7:20am Note Date/Time November 08, 2023 7:20 am [facility] [address] [place] [address] Wound Center Provider Note Signed Patient: Marilu Dan MR#: [id number] : 1950 Acct:[id number] Age/Sex: 73 / M Copies to: MD Narcisa Gibson, AIR SAW OPERATOR~ HPI Date of Visit Date of Visit: Date of Service: 11/08/2023 Time of Service: 07:18 Narrative HPI: 10/30/23 Marilu is a 73 year old male presenting to [facility] wound care for an initial visit for eval and treatment of scrotal/sacral/buttock area ulcers and fungal rash. He was referred by urology. His and daughter are present today. He has hhc through [facility] and this should continue. I did start [...] theraworx protect as well as the nystatin. 6/27/24 much improved today, same orders for now, will return in about 3 weeks, no signs of infection, fungal rash has more or less resolved, and daughter present today Subjective Pain Left Buttock: Pain Description: Intermittent Pain Intensity: 0 Wound/Ulcer History When did wound start?: October 2023 Left buttock ulcer Mode of Arrival/ Gyro Mechanic: Family Assistive Device Used Today: Cane Lives with:: Spouse Appetite Description: Within Normal Limits Who helps w/ dressing change?: Family and Home Health Why Do You Need Help?: Can't Reach Ulcer, Unsafe leave home by self and Taxing effort to leave home Smoking Status: Former smoker [facility] Medical History (Updated 10/30/23 @ [...] Pressure Ulcer/Injury Staging: Stage 3 Bed Appearance: [place] and Yellow Percent of Wound Bed Granulated/Red: 80 Percent of Devitalized: 20 Length (cm): 1.8 Width (cm): 1.2 Depth (cm): 0.1 CM Sq: 2.160 Surrounding Tissue Appearance: [place] Surrounding Tissue Temp: Warm Drainage Amount: Moderate [...] <Electronically signed by JOSE ENRIQUE Mckee> 11/08/[address] [facility] Work Phone: 1(512) 352-321106-18-2024 Progress note Author Narcisa Mckee [facility] October 30, 2023 7:33am Note Date/Time October 30, 2023 7:33 am [facility] [address] [place] [address] Wound Center Provider Note Signed Patient: Marilu Dan MR#: [id number] : 1950 Acct:[id number] Age/Sex: 73 / M Copies to: MD Narcisa Gibson APRN~ HPI Date of Visit Date of Visit: Date of Service: 10/30/2023 Time of Service: 07:23 Narrative HPI: 10/30/23 Marilu is a 73 year old male presenting to [facility] wound care for an initial visit for eval and treatment of scrotal/sacral/buttock area ulcers and fungal rash. He was referred by urology. His and daughter are present today. He has hhc through [facility] and this should continue. I did start [...] 2023 Left buttock ulcer Mode of Arrival/ Gyro Mechanic: Family Assistive Device Used Today: Kenny Lives with:: Spouse Appetite Description: Within Normal Limits Who helps w/ dressing change?: Family and Home Health Why Do You Need Help?: Can't Reach Ulcer, Unsafe leave home by self and Taxing effort to leave home Smoking Status: Former smoker [facility] Medical History (Updated 10/30/23 @ [...] Pressure Ulcer/Injury Staging: Stage 3 Bed Appearance: [place] and Yellow Percent of Wound Bed Granulated/Red: 5 Percent of Devitalized: 95 Length (cm): 4.8 Width (cm): 2.5 Depth (cm): 0.2 CM Sq: 12.000 Surrounding Tissue Appearance: [place] Surrounding Tissue Temp: Warm Drainage Amount: Moderate [...] Diabetes mellitus, type 2: Qualifiers: 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 Document Revised: 04/05/2020 Document Reviewed: 04/05/2020 [employer] Patient Education 2022 [employer]. Follow Up Care 06/20/2023 07:47:35 With:NICOLE DIAZ, Cristo Frances, URL Address: [facility] [address] [place] [phone] When: Unknown Comments:has f/u scheduled 11/19/23 [facility] [place] 11-22-2023 Evaluation note* Encounter Date Diagnosis Assessment Notes Treatment Notes Treatment Clinical Notes Mar, Hyperglycemia due to type 2 diabetes mellitus (ICD-10 - E11.65) [employer] Other 10-16-2023 Hospital Discharge instructions Patient Education [...] urethra. Follow these instructions at home: Take eaqf-bqo-tjscdxu and prescription medicines only as told by [...] provider. Document Revised: 11/16/2021 Document Reviewed: 11/16/2021 [employer] Patient Education 2022 [employer] Follow Up Care 11/27/2022 10:22:53 With:NICOLE DIAZ, Cristo Frances, URL Address: [facility] [address] [place] [address]- When:Within 3 Month(s) Comments:w/AFSHAN [facility] 07-17-2023 Hospital Discharge instructions Patient Education [...] urethra. Follow these instructions at home: Take pvrw-rqt-eqzevhk and prescription medicines only as told by [...] provider. Document Revised: 11/16/2021 Document Reviewed: 11/16/2021 [employer] Patient Education 2022 [employer]. Follow Up Care 09/25/2022 16:49:26 With:NICOLE DIAZ, Cristo Frances, URL Address: [facility] [address] [place] [address]- [phone] When: Unknown Comments:3 mos [facility] 07-13-2023 Evaluation note* Encounter Date Diagnosis Assessment Notes Treatment Notes Treatment Clinical Notes Nov, Hyperglycemia due to type 2 diabetes mellitus (ICD-10 - E11.65) [facility] Other 05-08-2023 Evaluation note* Encounter Date Diagnosis Assessment Notes Treatment Notes Treatment Clinical Notes September, Diabetic polyneuropathy associated with type 2 diabetes mellitus (ICD-10 - E11.42) [facility] Other 05-01-2023 Evaluation note* Encounter Date Diagnosis Assessment Notes Treatment Notes Treatment Clinical Notes September, Skin ulcer of toe of right foot, limited to breakdown of skin (ICD-10 - L97.511) No open area, mainly erythema. Agrees to podiatry referral for nail care and rx shoes. [employer] Other 04-13-2023 Evaluation note* Encounter Date Diagnosis Assessment Notes Treatment Notes Treatment Clinical Notes Aug, Diabetic polyneuropathy associated with type 2 diabetes mellitus (ICD-10 - E11.42) Hand wrote order for diabetic shoes. Trial of Lyrica as a new medication. We will start with low-dose and check again in 1 month consider increasing dose at that time. [employer] Other 02-28-2023 Evaluation note* Encounter Date Diagnosis Assessment Notes Treatment Notes Treatment Clinical Notes Jun, Right leg pain (ICD-10 - M79.604) Discussed US to r/o DVT and then consider more compression hose, elevation and tylenol for pain Jun, Right hip pain (ICD-10 - M25.551) no injury. will base referral if needed on Xray result. [facility] Other 01-23-2023 Hospital Discharge instructions Patient Education [...] reconstructed. Follow these instructions at home: Take gfwf-mxm-rfvhemu and prescription medicines only as told by [...] 05/26/2016 Document Revised: 12/11/2018 Document Reviewed: 12/11/2018 [employer] Patient Education [employer]. Follow Up Care 05/02/2022 08:31:24 With:NICOLE DIAZ, Cristo Frances, URL Address: [facility] [address] [place] [address]- When: Unknown [facility] 11-05-2022 Progress note Author Neno Moreira [facility] March 18, 2022 10:39am Note Date/Time March 18, 2022 1 0:28am [facility] [address] [place] [address] Hospitalist Progress Note Signed Patient: Marilu Dan MR#: [id number] : 1950 Acct:[id number] Age/Sex: 71 / M Adm Date: 2 Loc: Room: [address] [place] [address] Type: ADM IN Attending Dr: Neno Moreira [...] Ml IV 03/17/23 00:29 Not Given .Q8H [facility] Aztreonam 1 gm in 100 mls @ 200 mls/hr 03/17/22 05:30 03/18/22 08:55 Azactam IV Not Given Q8H [facility] Insulin Aspart 0 units 03/17/22 08:00 03/18/22 09:14 Insulin Aspart 300 Units/3 Ml Insuln.Pen SUBCUT 03/17/23 07:59 3 units TID.WM.HS [facility] Administration Protocol Insulin Glargine 10 units 03/17/22 09:00 03/18/22 09:15 Insulin Glargine 300 Units/3 Ml Insuln.Pen SUBCUT 03/17/23 08:59 10 units DAILY [facility] Administration Labetalol HCl 5 mg 03/17/22 00:28 [...] <Electronically signed by Neno Moreira MD> 03/18/22 1036 [facility] Work Phone: 1(356) 727-496811-04-2022 Consult note Author Marlon Shetty [facility] March 17, 2022 2:27pm Note Date/Time March 17, 2022 2 :21pm [facility] [address] [place] [address] Cardiology Consult Note Signed Patient: Marilu Dan MR#: [id number] : 1950 Acct:[id number] Age/Sex: 71 / M Adm Date: 2 Loc: Room: [address] [place] [address] Type: ADM IN Attending Dr: Neno Moreira MD Copies to: MD Neno Gibson MD W Scott Sheldon, DO~ Cardiology HPI History of Present Illness Consult Date: 03/17/22 Reason for Consult: Acute non-ST elevation PA HPI: Mr. Dan is a 71 year old male seen in interventional cardiology consultationat request of the hospitalist for acute non-ST elevation myocardial infarction. Patient was transferred from [place] primarily due to urosepsis. He presented to [...] noted for ASHD with four-vessel bypass in [place] around the 2014 time period. This was followed by TAVR around 2017, and patient continues to follow with primary scientific systems analyst Dr. Ospina. He has had no complaints [...] L 0.9 L 0.9 L (1.00-4.8) x10E3/uL [place] # (Auto) 0.9 H 1.0 H 0.9 [...] signed by Marlon Shetty DO> 03/17/22 1427 [facility] Work Phone: 1(977) 174-847511-04-2022 Progress note Author Neno Moreira [facility] March 17, 2022 2:05pm Note Date/Time March 17, 2022 2 :05pm [facility] [address] [place] [address] Hospitalist Progress Note Signed Patient: Marilu Dan MR#: [id number] : 1950 Acct:[id number] Age/Sex: 71 / M Adm Date: 2 Loc: Room: [address] [place] [address] Type: ADM IN Attending Dr: Neno Moreira [...] Ml IV 03/17/23 00:29 Not Given .Q8H [facility] Heparin Sodium/Sodium Chloride 25,000 unit in 250 [...] pending - ICU monitoring Hypotension presented on ppeoxteho-yfrigendb-fhzpt responsive ? UA positive for UTI. ? [...] signed by Neno Moreira MD> 03/17/22 1405 [facility] Work Phone: 1(428) 927-997011-04-2022 [facility] History and physical note Author Paulina Alexander [facility] March 17, 2022 4:30am Note Date/Time March 17, 2022 4 :25am [facility] [address] [place] [address] Hospitalist H&P Signed Patient: Marilu Dan MR#: [id number] : 1950 Acct:[id number] Age/Sex: 71 / M Adm Date: 2 Loc: Room: [address] [place] [address] Type: ADM IN Attending Dr: Madeline Barry [...] and after discussing the case with our scientific systems analyst on-call patient was started on heparin drip [...] % (Auto) 13.2 % (.) 03/17/22 03:38 [place] % (Auto) 14.6 % (.) 03/17/22 03:38 Eos % (Auto) 0.0 % (.) 03/17/22 03:38 Baso % (Auto) 0.2 % (.) 03/17/22 03:38 Neut # (Auto) 5.1 x10E3/uL (1.8-7.7) 03/17/22 03:38 Lymph # (Auto) 0.9 x10E3/uL (1.00-4.8) L 03/17/22 03:38 [place] # (Auto) 1.0 x10E3/uL (0.0-0.8) H 03/17/22 [...] <Electronically signed by Paulina Walker MD> 03/17/22 0434 [facility] Work Phone: 1(315) 817-461111-01-2022 Hospital Discharge instructions Patient Education 03/14/2022 13:27:00 [...] Follow these instructions at home: Medicines Take jgmt-hmo-qjixfko and prescription medicines only as told by [...] or the blood stops without treatment. Take oxhf-iyc-jszxdqq and prescription medicines only as told by your health care provider. Drink enough fluid to keep your urine clear or pale yellow. This information is not intended to replace advice given to you by your health care provider. Make sure you discuss any questions you have with your health care provider. Document Released: 04/30/2006 Document Revised: 09/24/2019 Document Reviewed: 06/02/2017 Elsevier Patient Education 2019 [employer]. Follow Up Care 02/27/2022 11:25:53 With:NICOLE DIAZ, Cristo Frances, URL Address: [facility] [address], [place] [address]- [phone] When:Within 3 Day(s) Comments:Sunday for tinsley removal [facility] [place] 10-17-2022 Hospital Discharge instructions Patient [...] Follow these instructions at home: Medicines Take gzoi-jre-bolgalq and prescription medicines only as told by [...] or the blood stops without treatment. Take rufn-kdh-yciiucj and prescription medicines only as told by your health care provider. Drink enough fluid to keep your urine clear or pale yellow. This information is not intended to replace advice given to you by your health care provider. Make sure you discuss any questions you have with your health care provider. Document Released: 04/30/2006 Document Revised: 09/24/2019 Document Reviewed: 06/02/2017 [employer] Patient Education 2020 [employer] Follow Up Care 02/26/2022 13:59:10 With:NICOLE DIAZ, Cristo Frances, URL Address: [facility] [address] , [place] [address]- [phone] When: Unknown [facility] 04-26-2022 History of Present illness Narrative* [...] test at this time. documented in this [facility] Work Phone: 1(172) 811-156901-27-2022 NoteClinical Information Procedure: left ear auriculectomy, Pre-operative [...] present at the tissue margins. Solar elastosis. [id number] [id number] [id number] [id number] Cody Gomes MD PhD (Electronically signed by) Verified: 06/13/21 12:25[facility] CenterComment on above:Performed By: #### SPR #### [facility] (DEFAULT) [address] [place], [place] [address]Discharge summary Author Neno Moreira [facility] March 19, 2022 1:57pm Note Date/Time March 19, 2022 1 :32pm [facility] [address] [place] [address] Discharge Summary Signed Patient: Marilu Dan MR#: [id number] : 1950 Acct:[id number] Age/Sex: 71 / M Adm Date: 2 Loc: Room: [address] [place] [address]: Neno Moreira MD Copies to: [...] and weakness for which he went to [facility] for further evaluation and management. Patient [...] and after discussing the case with our scientific systems analyst on-call patient was started on heparin drip [...] treat underlying urosepsis and follow-up withhis primary scientific systems analyst as outpatient. Patient was started on Azactam on admission due to penicillin allergy. Urine and blood cultures from [place] was sent home for which showed Proteus [...] % (Auto) 66.2, Lymph % (Auto) 20.4, [place] % (Auto) 12.2, Eos % (Auto) 1.0, Baso % (Auto) 0.2, Neut # (Auto) 3.3, Lymph # (Auto) 1.0, [place] # (Auto) 0.6, Eos # (Auto) 0.0, [...] PCP after discharge DISCHARGE INSTRUCTIONS FOR CARDIAC MANAGER PHOTO PHONE NUMBER OF YOUR PHYSICIAN: [phone] PROCEDURE: Heart Cath The following instructions have [...] cold, numb, blue or white, call the scientific systems analyst immediately. 4. ACTIVITY: You are advised to [...] <Electronically signed by Neno Moreira MD> 03/19/22 [facility] Work Phone: Evaluation + Plan note Future Appointments Appointment Date:03/14/2022 12:45:00 PM Scheduled Provider:Cristo RIVERA MD Location:[facility] Appointment Type:URO Procedure 15 min Diagnostic Tests Pending * Creatinine 02/27/22 [facility] evaluation + Plan note Future Appointments Appointment Date:03/17/2022 08:30:00 AM Scheduled Provider: Location:[facility] Appointment Type:URO Nurse Visit [facility] Evaluation + Plan note Future Appointments Appointment Date:07/18/2022 01:00:00 PM Scheduled Provider:Cristo RIVERA MD Location:[facility] Appointment Type:URO Procedure 15 min [facility] evaluation + Plan note Future Appointments Appointment Date:02/26/2023 09:30:00 AM Scheduled Provider:Cristo RIVERA MD Location:[facility] Appointment Type:URO Office Visit [facility] evaluation + Plan note Future Appointments Appointment Date:05/28/2023 08:45:00 AM Scheduled Provider:Cristo RIVERA MD Location:[facility] Appointment Type:URO Office Visit [facility] evaluation + Plan note Future Appointments Appointment Date:11/19/2023 08:45:00 AM Scheduled Provider:Cristo RIVERA MD Location:[facility] Appointment Type:URO Office Visit [facility] evaluation + Plan note Future Appointments Appointment Date:12/21/2023 09:15:00 AM Scheduled Provider:Cristo RIVERA MD Location:[facility] Appointment Type:URO Office Visit [facility] evaluation + Plan note Future Appointments Appointment Date:02/15/2024 08:45:00 AM Scheduled Provider:Cristo RIVERA MD Location:[facility] Appointment Type:URO Office Visit [facility] evaluation + Plan note Future Appointments Appointment Date:06/13/2024 08:00:00 AM Scheduled Provider:Cristo RIVERA MD Location:[facility] Appointment Type:URO Office Visit [facility] evaluation + Plan note Future Appointments Appointment Date:06/13/2024 08:00:00 AM Scheduled Provider:Cristo RIVERA MD Location:[facility] Appointment Type:URO Office Visit Diagnostic Tests Pending * Urine Culture 02/15/24 [facility] evaluation + Plan note Future Appointments Appointment Date:06/13/2024 08:00:00 AM Scheduled Provider:Cristo RIVERA MD Location:[facility] Appointment Type:URO Office Visit Diagnostic Tests Pending * Urine Culture 03/25/24 [facility] evaluation + Plan note Future Appointments Appointment Date:09/29/2024 09:30:00 AM Scheduled Provider:Cristo RIVERA MD Location:[facility] Appointment Type:URO Office Visit [facility] evaluation + Plan note Future Appointments Appointment Date:02/09/2025 09:30:00 AM Scheduled Provider:Cristo RIVERA MD Location:[facility] Appointment Type:URO Office Visit [facility] evaluation + Plan note Future Appointments Appointment Date:02/09/2025 09:30:00 AM Scheduled Provider:Cristo RIVERA MD Location:[facility] Appointment Type:URO Office Visit Future Scheduled Tests Laboratory* HgbA1c 10/27/24 * Microalbumin Level Urine 10/27/24 * Urine Microalbumin/Creatinine Ratio 10/27/24 * CBC w/ Auto Diff 10/27/24 * Comprehensive Metabolic Panel 10/27/24 * Lipid Panel 10/27/24 [facility] Evaluation note* Diagnosis Combined forms of age-related cataract of left eye- Primary Other and combined forms of senile cataract documented in this encounter [employer] [facility] Work Phone: evaluation note* Diagnosis Onset Date Resolution Status Acute UTI acute Tinsley catheter in place prior to arrival acute Gram-negative bacteremia acu te History of heart bypass surgery acute History of heart surgery acu te Hypotension acute NSTEMI (non-ST elevated myocardial infarction) acute Sepsis acute [facility] Work Phone: Evaluation noteNo assessment information available [facility] Work Phone: Evaluation noteNo InformationNort [employer] Other Evaluation note* Diagnosis Onset Date Resolution Status Coronary artery disease acut e Diabetes mellitus, type 2 ac poarch Hypotension acute Sepsis acute Candidiasis acute Decubitus ulcer of left buttock acute Diabetes mellitus, type 2 ac poarch Inflammation acute Use of cane as ambulatory aid acute Wound pain acute [facility] Work Phone: Evaluation note* Diagnosis Onset Date Resolution Status Admit Date Fever acute June 25, 2024 9:35am Influenza A acute June 9:35am [facility] Work Phone: History general Narrative - Reported* [...] History Heart attack , pneumonia sepsis 02/2022 [employer] Other Hospital course Narrative No data available for this section [facility] Discharge instructions* Instructions* Roberta Vazquez, DO [...] the healing period. The office number is [phone]. Take surgery bag and all eye drops to Dr. Vazquez's office tomorrow at 9:50am. You may resume your normal diet. Start your eye drops tomorrow after your post-op appointment: Ofloxacin/Polytrim one drop to the operated eye 4 times daily Prednisolone one drop to the operated eye 4 times daily documented in this [facility] Work Phone: Hospital Discharge instructions Additional Instructions -Take levofloxacin as prescribed daily for 7 more days. Hold Aricept while taking this antibiotics. -Follow up with urology as outpatient -Follow up with cardiology as outpatient -Follow up with PCP after discharge DISCHARGE INSTRUCTIONS FOR CARDIAC MANAGER PHOTO PHONE NUMBER OF YOUR PHYSICIAN: [phone] PROCEDURE: Heart Cath The following instructions have [...] cold, numb, blue or white, call the scientific systems analyst immediately. 4. ACTIVITY: You are advised to [...] list with you to your next doctor's appointment.[facility] Work Phone: Hospital Discharge instructions No data available for this section [facility] Progress note No data available for this section [facility] progress note Author Narcisa Mckee [facility] December 04, 2023 7:48am Note Date/Time December 04, 2023 7:48 am [facility] [address] [place] [address] Wound Center Provider Note Signed Patient: Marilu Dan MR#: [id number] : 1950 Acct:[id number] Age/Sex: 73 / M Copies to: MD Narcisa Gibson, AIR SAW OPERATOR~ HPI Date of Visit Date of Visit: Date of Service: 12/04/2023 Time of Service: 07:46 Narrative HPI: 10/30/23 Marilu is a 73 year old male presenting to [facility] wound care for an initial visit for eval and treatment of scrotal/sacral/buttock area ulcers and fungal rash. He was referred by urology. His and daughter are present today. He has hhc through [facility] and this should continue. I did start [...] 2023 Left buttock ulcer Mode of Arrival/ Gyro Mechanic: Family Assistive Device Used Today: Cane Lives with:: Spouse Appetite Description: Within Normal Limits Who helps w/ dressing change?: Family and Home Health Why Do You Need Help?: Can't Reach Ulcer, Unsafe leave home by self and Taxing effort to leave home Smoking Status: Former smoker [facility] Medical History Vein disorder Decubitus [...] signed by JOSE ENRIQUE Mckee> 12/04/23 0748 [facility] Work Phone: reason for referral (narrative)No reason for referral information [facility] Work Phone: reason for visit Narrative* Auth/Cert Specialty Diagnoses / Procedures Referred By Contac t Referred To Contact Diagnoses Combined forms of age-related cataract COMBINED FORMS OF AGE RELATED CATARACT 2+NS, 2+PSC, 2+CS Procedures ME XCAPSL CTRC RMVL INSJ IO LENS PROSTH W/O ECP EYE CATARACT EMULSIFICATION IOL IMPLANT Roberta Vazquez Y, DO [address] [place] [address] [facility] [employer] [address] [place] [address] Referral ID Status Reason Start Date Expiration Date Visits Re quested Visits Authorized [id number] 1 1 [employer] Work Phone: Summary Purpose Family History No Family History Records Found Relationship Condition Age at Onset Recorded Date/T jonelle father Heart disease Unknown Not Specified Diabetes mellitus Unknown Heart disease Unknown Relationship Condition Age at Onset Recorded Date/T jonelle father Heart disease Unknown mother Diabetes mellitus Unknown Heart disease Unknown Advance Directives No Advanced Directives Records FoundDocuments on File Type Date Recorded Patient Supervisor Word Processing Expl anation ACP-Advance Directive ACP-Power of Rn Pacu Documents on File Type Date Recorded Patient Supervisor Word Processing Expl anation Advance Directives and Living Will Power of Rn Pacu Documents on File Type Date Recorded Patient Supervisor Word Processing Expl anation ACP-Advance Directive ACP-Power of Rn Pacu Latest Code Status on File Code Status [...] 22 1:48pm Hospital Course Note MR#: [id number] [facility] Pt. Name: Marilu Dan Admitted: 11/04/2019 [...] symptoms of angina, shortness of breath with [id number] exertion. He is currently NYHA class 3. The patient was evaluated by our multi-discipli (more content not included)... Note MR#: [id number] [facility] Pt. Name: Marilu Dan Admitted: 02/12/2020 [...] man who presented as a transfer from [facility] after injuring his leg during [...] m25.551 Chief Complaint Amb Documentation Hosp f/u ([facility])//needs wounds checked Chief Complaint Amb Documentation Hosp f/u ([facility])//needs wounds checked Open Wound - cart room wellness Reason for Visit Coronary artery dise ase Diabetes mellitus, type 2 Hypotension Sepsis Candidiasis Decubitus ulcer of left buttock Diabetes mellitus, type 2 Inflammation Use of cane as ambulatory aid Wound pain Chief Complaint Amb Documentation Hosp f/u ([facility])//needs wounds checked wellness Open Wound - cart [...] 9:35am Influenza A June 25, 2024 9:35am Chief Complaint Admit Date Coughing/Possible Pneumonia June 9:35am Amb Documentation July 07, 2024 1:03pm [facility], dehydration and hypoxia July 112024 10:21am Chief Complaint Admit Date Coughing/Possible Pneumonia June 9:35am Amb Documentation July 07, 2024 1:03pm TBH, dehydration and hypoxia July 112024 10:21am Check Up September 02, 2024 9:1 9am Reason for Visit Admit Date Fever June 25, 2024 9:35am Influenza A June 25, 2024 9:35am Acute metabolic encephalopathy July 11, 2024 10:21am Dehydration July 11, 2024 10:21am Diabetes mellitus, type 2 July 11, 2024 10:21am Hypoxia July 11, 2024 10:21am Influenza A July 11, 2024 10:21am Lactic acid acidosis July 11, 2024 10:21am Leg edema, right September 02, 2024 9:1 9am Chief Complaint Admit Date Eye Infection December 03, 2024 10:1 9am Reason for Referral Reason [facility] - ne eds diabetic foot exam, shoes and nail care. Diagnosis 1 Skin ulcer of toe of right foot, limited to breakdown of skin (L97.511) Referral Organization [facility] Referring Provider First Name Mary Beth Referring Provider Last Name Hong Referring Provider Specialty Family [facility] Referred Organization [facility] Referred Provider KAMILA WILSON Referred Address ,[place], [place],[address] Referred Provider Specialty Podiatry - S urgical [...] section and content) DATE CREATED AUTHOR 07/02/2020 [facility] DATE CREATED AUTHOR AUTHOR'S ORGANIZ ATION 12/17/2021 [facility] DATE CREATED AUTHOR AUTHOR'S ORGANIZ ATION 03/24/2022 [facility] DATE CREATED AUTHOR AUTHOR'S ORGANIZ ATION 05/05/2022 [facility] DATE CREATED AUTHOR AUTHOR'S ORGANIZ ATION 05/05/2022 [facility] DATE CREATED AUTHOR AUTHOR'S ORGANIZ ATION 07/14/2023 [facility] DATE CREATED AUTHOR AUTHOR'S ORGANIZ ATION 12/06/2023 [facility] DATE CREATED AUTHOR AUTHOR'S ORGANIZ ATION 02/18/2024 [facility] DATE CREATED AUTHOR AUTHOR'S ORGANIZ ATION 03/26/2024 [facility] DATE CREATED AUTHOR AUTHOR'S ORGANIZ ATION 03/29/2024 [facility] DATE CREATED AUTHOR AUTHOR'S ORGANIZ ATION 06/23/2024 [facility] DATE CREATED AUTHOR AUTHOR'S ORGANIZ ATION 11/04/2024 [facility] DATE CREATED AUTHOR AUTHOR'S ORGANIZ ATION 12/23/2024 [facility] Scheduled Active and Recently Administ ered [...] 30 minutes prior to surgery until dilated, [facility] - enter number of doses based on [...] (NoRateChange - Provider: Bishop Perez APRN - WEAPONS AND TACTICS INSTRUCTOR) lactated ringers infusion IntraVENous, at 100 mL/hr, [...] MD Primary Care Provider Active Start: September 15, 2024 Mary Beth Pitts MD Attending Provider Active St art: September 15, 2024 Team Status: Inactive Member Role Status Dates Mray Beth Pitts MD Primary Care Provider Active Start: December 03, 2024 End: December 03, 2024 Mary Beth Pitts MD Attending Provider Active St art: December 03, 2024 End: December 03, 2024 Team Status: Inactive Member Role Status Dates Qing Malik APRN CORPORATE CONTROLLER-C Primary Care Provider, Attending Provider Active Start: June 25, 2024 End: June 25, 2024 Team Status: Active Member Role Status Dates Mary Beth Pitts MD Primary Care Provider Active Start: July 04, 2024 Blas Ospina MD Attending Provider Active Start: July 04, 2024 Team Status: Active Member Role Status Dates Mary Beth Pitts MD Primary Care Provider Active Start: July 05, 2024 Tomasz Aparicio DO Attending Provider Active Start : July 05, 2024 Team Status: Active Member Role Status Dates Mary Beth Pitts MD Primary Care Provider Active Start: July 06, 2024 Tomasz Aparicio DO Attending Provider Active Start : July 06, 2024 Team Status: Active Member Role Status Dates Mary Beth Pitts MD Primary Care Provider Active Start: July 07, 2024 Shaikh Maddison MD Attending Provider Active Sta rt: July 07, 2024 Team Status: Active Member Role Status Dates Mary Beth Pitts MD Primary Care Provider Active Start: July 07, 2024 Riya Aparicio CMA Attending Provider Active Start: July 07, 2024 Team Status: Inactive Member Role Status Dates Mary Beth Pitts MD Primary Care Provide r, Attending Provider Active Start: July 11, 2024 End: July 11, 2024 Team Status: Active Member Role Status Dates [...] October 18, 2023 End: October 18, 2023 Program Analyst Relationship Specialty Start Date End Date Mary Beth Pitts MD PCP - General 03/03/16 Program Analyst Relationship Specialty Start Date End Date Mary [...] Nguyen MD Other Provider Active Linh Quintanilla [facility]- Other Provider Active Debi Goins MD Other [...] Member Role Status Dates Qing Malik APRN CORPORATE CONTROLLER-C Primary Care Provider Active Team Status: Active Member Role Status Dates Mary Beth Pitts MD Primary Care Provider Active Start: July 06, 2024 Tr York DO Attending Provider Active Sta rt: July 06, 2024 Team Status: Inactive Member Role Status Dates Mary Beth Pitts MD Primary Care Provide r, Attending Provider Active Start: September 02, 2024 End: September 02, 2024 Goals (unrecognized section and content) Goals [...] BE BASED ON THE PRIMARY CLINICAL RECORDS. [employer] provides no warranty or guarantee of the accuracy or completeness of information in this document.
--- NOTE | 2025-01-26 09:49 | ED.EXTPRO1 ---
HPI - Extremity Problem General Chief complaint: Extremity Problem, Nontraumatic Stated complaint: LOWER EXTREMITY BLOOD CLOTS L LEG Time Seen by Provider: 01/26/25 09:20 Source: patient Mode of arrival: walk-in History of Present Illness HPI Narrative: The patient is a 74-year-old male is coming to the ER with a right lower extremity pain, he mentioned that the pain has been going on for the last 6 to 7 days and the pain usually starts from his back down his leg. Patient have no nausea no vomiting no chest pain no other concerns and he mentioned that he have a history of peripheral vascular disease status post procedure done to his right leg although he is not sure if he had a stent or not The patient mentioned that the pain is at rest sometimes and sometimes get worse whenever he is ambulating Related Data Home Medications ?Medication ?Instructions ?Recorded ?Confirmed amlodipine 10 mg tablet 10 mg PO DAILY 10/04/23 01/26/25 dutasteride 0.5 mg capsule 0.5 mg PO DAILY 10/04/23 01/26/25 isosorbide mononitrate 60 mg 60 mg PO DAILY 10/04/23 01/26/25 tablet,extended release 24 hr lisinopril 20 mg tablet 20 mg PO DAILY 10/04/23 01/26/25 metformin 500 mg tablet,extended 1,000 mg PO BID 10/04/23 01/26/25 release 24 hr metoprolol tartrate 50 mg tablet 50 mg PO Q12H 10/04/23 01/26/25 rivaroxaban 20 mg tablet (Xarelto) 20 mg PO Q24H 10/04/23 01/26/25 simvastatin 40 mg tablet 40 mg PO DAILY 10/04/23 01/26/25 sitagliptin phosphate 100 mg 100 mg PO BID 10/04/23 01/26/25 tablet (Januvia) spironolactone 25 mg tablet 12.5 mg PO DAILY 10/04/23 01/26/25 tamsulosin 0.4 mg capsule 0.8 mg PO Q24H 10/04/23 01/26/25 Previous Rx's ?Medication ?Instructions ?Recorded albuterol sulfate 90 mcg/actuation 2 inh inhalation Q4H PRN shortness 07/07/24 aerosol inhaler of breath or wheezing #8.5 grams tiotropium bromide 18 mcg capsule 1 cap inhalation DAILY #30 07/07/24 with inhalation device (Spiriva inhalations with HandiHaler) acetaminophen 650 mg 650 mg PO Q8H PRN pain #20 tabs 01/26/25 tablet,extended release (Tylenol 8 Hour) tramadol 50 mg tablet 50 mg PO BID PRN pain 3 days #6 01/26/25 tabs Allergies Allergy/AdvReac Type Severity Reaction Status Date / Time Penicillins AdvReac Severe Swelling Verified 01/26/25 09:20 of Lip/Tongue/Throat sulfamethoxazole (From AdvReac Severe Swelling Verified 01/26/25 09:20 Bactrim) of Lip/Tongue/Throat trimethoprim (From Bactrim) AdvReac Severe Swelling Verified 01/26/25 09:20 of Lip/Tongue/Throat doxycycline AdvReac Mild Blister Verified 01/26/25 09:20 Review of Systems ROS Status of ROS 10 or more systems reviewed and unremarkable except as noted in history and below [facility] Medical History (Updated 01/26/25 @ 10:57 by Tiffany Grossman MD) HTN (hypertension) ?I10 - Essential (primary) hypertension (ICD-10) HLD (hyperlipidemia) ?E78.5 - Hyperlipidemia, unspecified (ICD-10) Afib ?I48.91 - Unspecified atrial fibrillation (ICD-10) Pyelonephritis ?N12 - Tubulo-interstitial nephritis, not specified as acute or chronic (ICD-10) Severe sepsis with septic shock ?A41.9 - Sepsis, unspecified organism (ICD-10) ?R65.21 - Severe sepsis with septic shock (ICD-10) Leukocytosis ?D72.829 - Elevated white blood cell count, unspecified (ICD-10) Fever ?R50.9 - Fever, unspecified (ICD-10) Leg fracture, left ?S82.92XA - Unspecified fracture of left lower leg, initial encounter for closed fracture (ICD-10) COPD (chronic obstructive pulmonary disease) ?J44.9 - Chronic obstructive pulmonary disease, unspecified (ICD-10) Diabetes ?E11.9 - Type 2 diabetes mellitus without complications (ICD-10) Sepsis ?A41.9 - Sepsis, unspecified organism (ICD-10) Surgical History History of atherectomy ?Z98.890 - Other specified postprocedural states (ICD-10) History of open heart surgery ?Z98.890 - Other specified postprocedural states (ICD-10) Heart valve replaced by other means ?Z95.4 - Presence of other heart-valve replacement (ICD-10) Social History Highest level of school completed/degree received: 10th grade Little interest or pleasure in doing things: not at all Feeling down, depressed, or hopeless: not at all Exam Narrative Exam Narrative: Nurses notes and vital signs reviewed and patient is not hypoxic. General: Well-appearing and in no apparent distress. Skin: Warm, dry, no pallor noted. No rash. Head: Normocephalic, atraumatic. Neck: Supple, non-tender. Cardiovascular: Regular Rate and Rhythm without murmur, gallop or rub. Respiratory: No accessory muscle use or respiratory distress. Lungs are clear to auscultation, no wheezing, rales or rhonchi Chest Wall: no tenderness Back: No midline thoracic or lumbar vertebral tenderness. There is also paraspinal muscle tenderness noted in the upper lumbar level .that could induce the pain .no CVA tenderness Musculoskeletal: normal ROM, no calf or popliteal tenderness,and I could Doppler the pulse bilaterally anterior tibial, there is no significant edema of the right leg and the patient mentioned that the tenderness over the pain started from his right lower back GI: Abdomen is soft, non-distended. Normal bowel sounds. No masses appreciated. No tenderness to palpation. No rebound, guarding, or rigidity noted. Neurological: A&O x4. No cranial nerve dysfunction observed. Constitutional Vital Signs, click to edit/add: Last Vital Signs Temp 97.7 F 01/26/25 09:22 Pulse 65 01/26/25 09:22 Resp 18 01/26/25 09:22 BP 166/80 H 01/26/25 09:22 Pulse Ox 100 01/26/25 09:22 O2 Del Method Nasal Cannula 01/26/25 09:22 O2 Flow Rate 2 01/26/25 09:22 Course Vital Signs Vital signs: Vital Signs Temperature 97.7 F 01/26/25 09:22 Pulse Rate 65 01/26/25 09:22 Respiratory Rate 18 01/26/25 09:22 Blood Pressure 166/80 H 01/26/25 09:22 Pulse Oximetry 100 01/26/25 09:22 Oxygen Delivery Method Nasal Cannula 01/26/25 09:22 Oxygen Delivery Flow Rate 2 01/26/25 09:22 Temperature 97.7 F 01/26/25 09:22 Pulse Rate 65 01/26/25 09:22 Respiratory Rate 18 01/26/25 09:22 Blood Pressure 166/80 H 01/26/25 09:22 Pulse Oximetry 100 01/26/25 09:22 Oxygen Delivery Method Nasal Cannula 01/26/25 09:22 Oxygen Delivery Flow Rate 2 01/26/25 09:22 MDM - Extremity (Nontraumatic) MDM Narrative Medical decision making narrative: Venous Doppler of the right lower extremity showed no DVT Patient presentation most likely due to sciatica It was noted that the patient blood pressure was 160 but he just took his blood pressure medication this morning Right now the patient is feeling much better after being treated with Percocet in the ER in addition to Toradol Patient discharged home with tramadol as well as Tylenol for pain Patient instructed about the importance of monitoring his symptoms and come back to the ER in case of worsening of symptoms he was educated about alarming symptoms to come back to the ER including weakness or incontinence of urine or stool The patient is to follow up with primary care physician in next 2-3 days or to return to the emergency department should any of the signs or symptoms worsen or new symptoms develop. The patient agrees with the following Diagnosis and Treatment plan and the patient will be discharged home. Discharge Plan Discharge Chief Complaint: Extremity Problem, Nontraumatic Clinical Impression: Back pain with right-sided sciatica Patient Disposition: Home, Self-Care Time of Disposition Decision: 10:57 Condition: Good Prescriptions / Home Meds: New tramadol 50 mg tablet 50 mg PO BID PRN (Reason: pain) 3 Days Qty: 6 0RF acetaminophen [Tylenol 8 Hour] 650 mg tablet extended release 650 mg PO Q8H PRN (Reason: pain) Qty: 20 0RF No Action amlodipine 10 mg tablet 10 mg PO DAILY dutasteride 0.5 mg capsule 0.5 mg PO DAILY isosorbide mononitrate 60 mg tablet extended release 24 hr 60 mg PO DAILY lisinopril 20 mg tablet 20 mg PO DAILY metformin 500 mg tablet extended release 24 hr 1,000 mg PO BID metoprolol tartrate 50 mg tablet 50 mg PO Q12H Xarelto 20 mg tablet 20 mg PO Q24H simvastatin 40 mg tablet 40 mg PO DAILY spironolactone 25 mg tablet 12.5 mg PO DAILY tamsulosin 0.4 mg capsule 0.8 mg PO Q24H Januvia 100 mg tablet 100 mg PO BID albuterol sulfate 90 mcg/actuation HFA aerosol inhaler 2 inh inhalation Q4H PRN (Reason: shortness of breath or wheezing) Qty: 8.5 0RF tiotropium bromide [Spiriva with HandiHaler] 18 mcg capsule, w/inhalation device 1 cap inhalation DAILY Qty: 30 0RF Rx Instructions: puncture 1 cap using device; one dose = 2 inhalations Print Language: Panamanian Instructions: Sciatica (ED), Back Pain (ED) Referrals: Susana Jackson MD [Primary Care Provider, Family Practice] - 1 week Discharge Date/Time: 01/26/25 11:10
[2025-01-26] MEDS: TRAMADOL HCL 50 MG TABLET PO (09:54)
[2025-01-26] MEDS: KETOROLAC TROMETHAMINE 30 MG/ML VIAL 15 MG IM (09:54)
== END 2025-01-26 11:10 | disposition home or self-care (01) ==
PROVIDERS: Emergency Provider Emergency Medicine; PCP Family Medicine
DX: M54.31 Sciatica, right side (principal); M54.9 Dorsalgia, unspecified
CPT/HCPCS: 93971; 96372; 99284; J1885